=== PATIENT | male | born 1935 | race Caucasian/White ===

== ENCOUNTER 2023-03-09 | Outpatient (RCR) | payer MEDICARE, BC, SELFPAY | END 2023-04-02 23:59 | disposition home or self-care (01) | LOC: MM | PROVIDERS: PCP Internal Medicine; Visit Provider Internal Medicine | DX: Z51.81 Encounter for therapeutic drug level monitoring (principal); Z79.01 Long term (current) use of anticoagulants; I48.91 Unspecified atrial fibrillation ==

== ENCOUNTER 2023-04-08 10:32 | Outpatient (RCR) | payer MEDICARE, BC, SELFPAY | END 2023-05-03 16:54 | disposition home or self-care (01) | LOC: MM 10:32 | PROVIDERS: PCP Internal Medicine; Visit Provider Internal Medicine | DX: Z51.81 Encounter for therapeutic drug level monitoring (principal); Z79.01 Long term (current) use of anticoagulants; I48.91 Unspecified atrial fibrillation | CPT/HCPCS: 85610; G0463 ==

== ENCOUNTER 2023-05-04 09:09 | Outpatient (RCR) | payer MEDICARE, BC, SELFPAY | END 2023-06-03 17:28 | disposition home or self-care (01) | LOC: MM 09:09 | PROVIDERS: Visit Provider Internal Medicine | DX: Z51.81 Encounter for therapeutic drug level monitoring (principal); Z79.01 Long term (current) use of anticoagulants; I48.91 Unspecified atrial fibrillation | CPT/HCPCS: 85610; G0463 ==

== ENCOUNTER 2023-05-10 08:36 | Outpatient (OUT) | payer MEDICARE, BC, SELFPAY ==
[2023-05-10 10:32] LABS: Prostate Specific Antigen Dx <0.13 ng/mL (<=4.00)
== END 2023-05-10 08:37 | disposition home or self-care (01) ==
LOC: LAB 08:38
PROVIDERS: PCP Internal Medicine; Visit Provider Urology
DX: N40.1 Benign prostatic hyperplasia with lower urinary tract symptoms (principal); Z85.46 Personal history of malignant neoplasm of prostate; R35.1 Nocturia
CPT/HCPCS: 36415; 84153

== ENCOUNTER 2023-06-04 08:44 | Outpatient (RCR) | payer MEDICARE, BC, SELFPAY | END 2023-07-02 16:45 | disposition home or self-care (01) | LOC: MM 08:44 | PROVIDERS: PCP Internal Medicine; Visit Provider Internal Medicine | DX: Z51.81 Encounter for therapeutic drug level monitoring (principal); Z79.01 Long term (current) use of anticoagulants; I48.91 Unspecified atrial fibrillation ==

== ENCOUNTER 2023-07-05 02:33 | Outpatient (RCR) | payer MEDICARE, BC, SELFPAY | END 2023-08-03 17:39 | disposition home or self-care (01) | LOC: MM 02:33 | PROVIDERS: PCP Internal Medicine; Visit Provider Internal Medicine | DX: Z51.81 Encounter for therapeutic drug level monitoring (principal); Z79.01 Long term (current) use of anticoagulants; I48.91 Unspecified atrial fibrillation | CPT/HCPCS: 85610; G0463 ==

== ENCOUNTER 2023-07-12 08:18 | Outpatient (OUT) | payer MEDICARE, BC, SELFPAY ==
[2023-07-12 08:38] LABS: Basophils Percent Auto 0.6 % (0.2-2.0); Eosinophils Absolute Auto 0.1 10^3/uL (0.0-0.7); Eosinophils Percent Auto 1.1 % (0.9-7.0); Hematocrit 33.6 % (42.0-54.0); Hemoglobin 11.2 g/dL (14.0-18.0); Immature Granulocytes Abs Auto 0.01 10^3/uL (0.00-0.03); Immature Granulocytes Pct Auto 0.2 % (0.0-0.5); Lymphocytes Percent Auto 22.2 % (20.5-60.0); Mean Corpuscular HGB Conc 33.3 g/dL (29.9-35.2); Mean Corpuscular Hemoglobin 32.3 pg (25.9-34.0); Mean Corpuscular Volume 96.8 fL (80.0-94.0); Mean Platelet Volume 9.8 fL (9.5-13.5); Monocytes Absolute Auto 0.5 10^3/uL (0.3-0.8); Monocytes Percent Auto 11.7 % (1.7-12.0); Neutrophils Percent Auto 64.2 % (43.0-75.0); Platelet Count 131 10^3/uL (150-450); Red Blood Count 3.47 10^6/uL (4.70-6.10); Red Cell Distribution Width 13.3 % (11.0-15.0); White Blood Count 4.6 10^3/uL (4.0-11.0)
[2023-07-12 09:16] LABS: Alanine Aminotransferase 55 U/L (16-63); Chol HDL Ratio 1.9; Cholesterol 120 mg/dL (<=200); HDL Cholesterol 64 mg/dL (40-60); Thyroid Stimulating Hormone 1.068 uIU/mL (0.358-3.740); Triglycerides 65 mg/dL (<=150)
== END 2023-07-12 08:19 | disposition home or self-care (01) ==
LOC: LAB 08:21
PROVIDERS: PCP Internal Medicine; Visit Provider Internal Medicine
DX: E78.00 Pure hypercholesterolemia, unspecified (principal); E06.3 Autoimmune thyroiditis; Z79.899 Other long term (current) drug therapy
CPT/HCPCS: 36415; 80061; 84443; 84460; 85025

== ENCOUNTER 2023-08-04 00:44 | Outpatient (RCR) | payer MEDICARE, BC, SELFPAY | END 2023-09-02 16:47 | disposition home or self-care (01) | LOC: MM 00:44 | PROVIDERS: PCP Internal Medicine; Visit Provider Internal Medicine | DX: Z51.81 Encounter for therapeutic drug level monitoring (principal); Z79.01 Long term (current) use of anticoagulants; I48.91 Unspecified atrial fibrillation | CPT/HCPCS: 85610; G0463 ==

== ENCOUNTER 2023-08-09 07:41 | Outpatient (OUT) | payer MEDICARE, BC, SELFPAY ==
--- NOTE | 2023-08-09 07:45 | XR_ITS ---
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 TECHNIQUE: Dual-energy X-ray absorptiometry (DEXA) bone density study performed for the axial skeleton. HISTORY: Disorder Of Bone M89.9 FINDINGS: Prominence of the AP spine L2-L4 measures 1.42 g/sq cm. T score 1.5. WHO classification : Normal. This likely is artifactually elevated due to significant proliferative osteophyte formation Lowest bone mineral density right femoral neck measures 0.750 g/sq cm. T score -2.5. WHO classification: Osteoporosis XR/XR DEXA axial skeleton IMPRESSION: Osteoporosis. High fracture risk Electronically authenticated by: BRANDI PEÑA Date: 08/09/2023 09:05
== END 2023-08-09 07:42 | disposition home or self-care (01) ==
LOC: RAD 07:41
PROVIDERS: PCP Internal Medicine; Visit Provider Internal Medicine Rheumatology
DX: M89.9 Disorder of bone, unspecified (principal); M81.0 Age-related osteoporosis without current pathological fracture
CPT/HCPCS: 77080

== ENCOUNTER 2023-09-03 09:31 | Outpatient (RCR) | payer MEDICARE, BC, SELFPAY | END 2023-10-01 15:17 | disposition home or self-care (01) | LOC: MM 09:31 | PROVIDERS: PCP Internal Medicine; Visit Provider Internal Medicine | DX: Z51.81 Encounter for therapeutic drug level monitoring (principal); Z79.01 Long term (current) use of anticoagulants; I48.91 Unspecified atrial fibrillation | CPT/HCPCS: 85610; G0463 ==

== ENCOUNTER 2023-10-04 01:14 | Outpatient (RCR) | payer MEDICARE, BC, SELFPAY | END 2023-11-03 17:19 | disposition home or self-care (01) | LOC: MM 01:14 | PROVIDERS: PCP Internal Medicine; Visit Provider Internal Medicine | DX: Z51.81 Encounter for therapeutic drug level monitoring (principal); Z79.01 Long term (current) use of anticoagulants; I48.91 Unspecified atrial fibrillation | CPT/HCPCS: 85610; G0463 ==

== ENCOUNTER 2023-10-21 08:12 | Outpatient (OUT) | payer MEDICARE, BC, SELFPAY ==
--- NOTE | 2023-10-21 | ECG_ITS ---
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
--- OUTSIDE RECORDS SUMMARY | 2023-10-21 08:16 | XMS_ITS | CCD ---
Author Name Unknown Address [address] [place] [address] Organization [facility] Care Team Providers Care Deicer Repairer Name Role Phone Unavailable Primary Care Provider Unavailabl e STEVE VARGAS Primary Care Unavailable FILIPPO LITTLE Attending Unavailable FILIPPO LITTLE Admitting Unavailable STEVE VARGAS Referring Unavailable Vinh Lawton Unavailable STEVE VARGAS Primary Care Physician [phone] DO Steve Vargas Primary Care Provider [phone] MD Michele Arteaga Attending Provider DO Steve Vargas Primary Care Provider [phone] MD Michele Arteaga Attending Provider Steve Vargas Unavailable LI ., DR ARCHIBALD Consulting Unavailable LI ., DR ARCHIBALD Attending Unavailable BALL, DR EATON Primary Care Unavailable IL ., DR ARCHIBALD Admitting Unavailable ZANDRA, DR EATON Primary Care Unavailable FAMARY KATE, HANSEN H Attending Unavailable FAMARY KATE, HANSEN H Admitting Unavailable ZANDRA, DR EATON Primary Care Unavailable GERBER ., DR LOPEZ Consulting Unavailable HOY ., DR LOPEZ Attending Unavailable HOY ., DR LOPEZ Admitting Unavailable FILIPPO LITTLE Attending Unavailable FILIPPO LITTLE Admitting Unavailable FILIPPO LITTLE Consulting Unavailable ZANDRA, DR EATON Primary Care Unavailable ZANDRA, DR EATON Consulting Unavailable ZANDRA, DR EATON Attending Unavailable ZANDRA, DR EATON Admitting Unavailable ZANDRA, DR EATON Primary Care Unavailable DBEBIE SCHRADER Attending Unavailable ZANDAR, DR EATON Primary Care Unavailable ZANDRA, DR EATON Consulting Unavailable DEBBIE SCHRADER Admitting Unavailable DEBBIE SCHRADER Consulting Unavailable RON CAZARES Consulting Unavailable FILIPPO LITTLE Attending Unavailable FILIPPO LITTLE Admitting Unavailable FILIPPO LITTLE Consulting Unavailable ZANDRA, DR EATON Primary Care Unavailable BALL, DR EATON Primary Care Unavailable FAWWAD, HANSEN H Attending Unavailable FAWWAD, HANSEN H Admitting Unavailable FAWWAD, HANSEN H Attending Unavailable BALL, DR EATON Primary Care Unavailable FAWWAD, HANSEN H Admitting Unavailable FAWWAD, HANSEN H Admitting Unavailable FAWWAD, HANSEN H Attending Unavailable BALL, DR EATON Primary Care Unavailable FAWWAD, HANSEN H Admitting Unavailable FAWWAD, HANSEN H Attending Unavailable BALL, DR EATON Primary Care Unavailable BALL, DR EATON Primary Care Unavailable FAWWAD, HANSEN H Attending Unavailable FAWWAD, HANSEN H Admitting Unavailable BALL, DR EATON Primary Care Unavailable FAWWAD, HANSEN H Attending Unavailable FAWWAD, HANSEN H Admitting Unavailable FAWWAD, HANSEN H Admitting Unavailable FAWWAD, HANSEN H Attending Unavailable BALL, DR EATON Primary Care Unavailable FAWWAD, HANSEN H Admitting Unavailable FAWWAD, HANSEN H Attending Unavailable BALL, DR EATON Primary Care Unavailable BALL, DR EATON Primary Care Unavailable FAWWAD, HANSEN H Attending Unavailable FAWWAD, HANSEN H Admitting Unavailable BALL, DR EATON Primary Care Unavailable FAWWAD, HANSEN H Attending Unavailable FAWWAD, HANSEN H Admitting Unavailable DOMINGOHLERDEBBIE Consulting Unavailable ZAHLER, DEBBIE Attending Unavailable ZAHLER, DEBBIE Admitting Unavailable BALL, DR EATON Primary Care Unavailable FILIPPO LITTLE Admitting Unavailable FILIPPO LITTLE Consulting Unavailable ZANDRA, DR EATON Primary Care Unavailable FILIPPO LITTLE Attending Unavailable DO Steve Vargas Primary Care Provider MD Michele Arteaga Attending Provider MD Jose R Cruz Attending Provider [phone] YULIANA RODRIGUEZ Attending Unavailable FILIPPO LITTLE Attending Unavailable FILIPPO LITTLE Referring Unavailable FILIPPO LITTLE Referring Unavailable FILIPPO LITTLE Admitting Unavailable FILIPPO LITTLE Attending Unavailable FILIPPO LITTLE Referring Unavailable FILIPPO LITTLE Referring Unavailable Cristela LI Attending Unavailable Cristela LI Attending Unavailable DO Steve Vargas Primary Care Provider [phone] MD Michele Arteaga Attending Provider Michele Arteaga Admitting Unavailable Michele Arteaga Attending Unavailable Steve Vargas Primary Care Unavailable Michele Arteaga Admitting Unavailable Michele Arteaga Attending Unavailable Steve Vargas Primary Care Unavailable Michele Arteaga Admitting Unavailable Michele Arteaga Attending Unavailable Steve Vargas Primary Care Unavailable Jose R Cruz Admitting Unavailable Jose R Cruz Attending Unavailable Steve Vargas Primary Care Unavailable Unavailable Primary Care Provider UnavailELKIN Ng Admitting Unavailable ELKIN PULIDO Attending Unavailable ELKIN PULIDO Attending Unavailable Allergies Allergy Classification Reported Allergen(s) Allergy Type Date of Onset Reaction(s) Facility (20 sources) Latex; Translations: [LATEX] Propensity to adverse reactions (disorder) 9 rash, Hives, Itching [facility] Repository (13 sources) Penicillins; Translations: [penicillins] Drug allergy (disorder) 0 Swelling of the Eye [facility] Repository (2 sources) Penicillin V Drug Allergy Unknown [facility] Other (11 sources) Penicillin Drug Allergy Unknown [facility] Other (1 source) Spironolactone; Translations: [SPIRONOLACTONE ] Drug Allergy 1 [facility] Repository (1 source) Penicillins Drug allergy (disorder) 7 [facility] Repository (1 source) Penicillins Drug Allergy 4 Other [facility] Work Phone: Medications Current Medications Medication Drug Class(es) Dates Sig (Normalized) Sig (Original) acetaminophen 325 mg / HYDROcodone bitartrate 5 mg oral tablet (13 sources) Opioid Agonist Start: 10-10-2021 take 1-2 tablets by mouth every six hours as needed HYDROcodone-Acet aminophen 5-325 MG 1-2 tablet as needed Orally every 6 hrs for 7 days Oct, Active 24 hr alfuzosin hydrochloride 10 mg extended release oral tablet (16 sources) alpha-Adrenergic Amador Start: 12-22-2021 End: 11-21-2023 take 1 tablet by mouth once daily alfuzosin 10 mg ER Tab 10 mg = 1 tab(s), Oral, Daily, X 90 day(s), # 90 tab(s), Refills(s) 3, Pharmacy: [facility], 178, cm, 05/04/22 12:45:00 EDT, Height/Length Dosing, 76, kg, 05/04/22 12:45:00 EDT, Weight Dosing Start Date: 11/26/22 Stop Date: 11/21/23 Status: Ordered aspirin 81 mg delayed release oral tablet (6 sources) Platelet Aggregation Inhibitor, Nonsteroidal Anti-inflammatory Drug Start: 07-13-2017 take 1 tablet by mouth once daily Aspirin (Aspir-81) 81 mg Tablet,Delayed Release (Dr/Ec) Active 81 MG PO Daily July 13, 2017 12:00am Start: 04-02-2014 aspirin Refill s(s) 0 Start Date: 04/02/14 Status: Ordered atorvastatin 40 mg oral tablet (20 sources) HMG-CoA Reductase Inhibitor Start: 08-30-2023 take 1 tablet by mouth once daily before mealtime atorvastatin (Lipitor) 40 mg tablet Take 1 tablet (40 mg) by mouth once daily in the morning. Take before meals. 0 08/30/2023 Active Start: 04-02-2014 take 40 mg by mouth once daily Atorvastatin Active 40 MG PO Daily July 13, 2017 12:00am betamethasone 0.5 mg/ml / clotrimazole 10 mg/ml topical cream (5 sources) Azole Antifungal, Corticosteroid Start: 04-16-2023 Clotrimazole-Betamethasone 1-0.05 % 1 application Externally Twice a day for 15 days Apr, Active Bumetanide (13 sources) Loop Diuretic Bumetanide Not-T aking Bumetanide Activ e Calcium (5 sources) Phosphate Binder, Calcium Calcium + D3 Active calcium carbonate 1250 mg oral tablet (13 sources) take 1 tablet by mouth every twelve hours take 1 tablet by mouth every twe lve hours calcium carbonate 1250 mg / cholecalciferol 125 unt oral tablet (6 sources) Vitamin D Start: 07-13-2017 take 1 tablet by mouth once daily Calcium Carbonate-Vitamin D3 (Calcium 500 + D (D3)) 500 mg(1,250mg) -125 unit Tablet Active 1 TAB PO Daily July 13, 2017 12:00am Calcium Citrate / Vitamin D (2 sources) Start: 04-02-2014 calcium-vitami n D Refill(s) 0 Start Date: 04/02/14 Status: Ordered cholecalciferol 0.125 mg oral tablet (7 sources) Vitamin D Start: 07-13-2017 take 1 tablet by mouth once daily Cholecalciferol (Vitamin D3) (Vitamin D3) 5,000 unit Tablet Active 1 TAB PO Daily July 13, 2017 12:00am take 1 capsule by mo uth every other day Vitamin D3 25 MCG (1000 UT) 1 capsule Or ally every other day Active take 1 tablet by mouth every oth er day cholecalciferol (Vitamin D-3) 5,000 Units tablet Take 1 tablet every other day by oral route. 0 Active clopidogrel 75 mg oral tablet (14 sources) P2Y12 Platelet Inhibitor Start: 04-08-2020 take 1 mg by mouth once daily Plavix 75 mg Tab mg tab(s), Oral, Daily, Refills(s) 0 Start Date: 04/08/20 Status: Ordered docusate sodium 100 mg oral capsule (12 sources) take 1 capsule by mouth every twenty-four hours ferrous sulfate 325 mg oral tablet (11 sources) Start: 07-13-2017 take 1 tablet by mouth once daily Ferrous Sulfate (Iron) 325 mg (65 mg iron) Tablet Active 1 TAB PO Daily July 13, 2017 12:00am ferrous sulfate, 325 mg ferrous sulfate, tablet Take 65 mg by mouth once daily. 0 Active take 1 tablet by ho every twenty-four hours Iron 325 (65 Fe) MG 1 tablet Orally Once a day Active fexofenadine hydrochloride 180 mg oral tablet (6 sources) Histamine-1 Receptor Antagonist Start: 04-08-2020 take 1 mg by mouth once daily fexofenadine 180 mg Tab mg tab(s), Oral, Daily, Refills(s) 0 Start Date: 04/08/20 Status: Ordered take 1 tablet by ho th every twenty-four hours Fexofenadine HCl 60 MG 1 tablet Orally once a day Active finasteride 5 mg oral tablet (16 sources) 5-alpha Reductase Inhibitor Start: 12-15-2021 take 1 tablet by mouth once daily finasteride 5 mg Tab 5 mg = 1 tab(s), Oral, Daily, # 90 tab(s), Refills(s) 3, Pharmacy: [facility], 178, cm, 05/04/22 12:45:00 EDT, Height/Length Dosing, 76, kg, 05/04/22 12:45:00 EDT, Weight Dosing Start Date: 11/26/22 Status: Ordered furosemide 20 mg oral tablet (11 sources) Loop Diuretic Start: 04-08-2020 take 1 mg by mouth once daily furosemide 20 mg Tab mg tab(s), Oral, Daily, Refills(s) 0 Start Date: 04/08/20 Status: Ordered hydroCHLOROthiazide 25 mg oral tablet (6 sources) Thiazide Diuretic Start: 07-13-2017 take 25 mg by mouth once daily Hydrochlorothiazide Active 25 MG PO Daily July 13, 2017 12:00am hydroxychloroquine sulfate 200 mg oral tablet (20 sources) Antimalarial, Antirheumatic Agent Start: 04-02-2014 take 200 mg by mouth twice daily Hydroxychloroquine Active 200 MG PO Twice daily July 13, 2017 12:00am take 1 tablet by ho th once daily, then take 1 tablet by mouth twice daily at mealtime hydroxychloroquine (Plaquenil) 200 mg ta blet TAKE 1 TABLET BY MOUTH ONCE DAILY ALTERNATING WITH 1 TABLET TWICE DAILY WITH FOOD. CONFIRM WITH EYE DOCTOR ON YEARLY EYE EXAM FOR MEDICATION TOXICITY. 0 Active Iron (10 sources) Start: 04-02-2014 Patrick Iron Refil ls(s) 0 Start Date: 04/02/14 Status: Ordered Iron Not-Taking Iron Active leflunomide 20 mg oral tablet (20 sources) Antirheumatic Agent Start: 04-08-2020 take 1 mg by mouth once daily leflunomide 20 mg Tab mg tab(s), Oral, Daily, Refills(s) 0 Start Date: 04/08/20 Status: Ordered Start: 07-13-2017 take 20 g by mouth once daily Leflunomide Active 20 GM PO Daily July 13, 2017 12:00am take 1 tablet by ho th every other day Leflunomide 20 MG 1 tablet Orally every other day Active lisinopril 40 mg oral tablet (1 source) Angiotensin Converting Enzyme Inhibitor Start: 04-02-2014 Prinivil 40 mg oral tablet Refills(s) 0 Start Date: 04/02/14 Status: Ordered losartan potassium 50 mg oral tablet (20 sources) Angiotensin 2 Receptor Amador Start: 07-13-2017 End: 10-26-2023 take 1 tablet by mouth once daily losartan (Cozaar) 50 mg tablet Take 1 tablet (50 mg) by mouth once daily. 0 10/26/2022 10/26/2023 Active 24 hr metoprolol succinate 25 mg extended release oral tablet (20 sources) beta-Adrenergic Amador Start: 07-13-2017 take 25 mg by mouth once daily Metoprolol Succinate Active 25 MG PO Daily July 13, 2017 12:00am take 2 tablets by mo [facility] every twenty-four hours Metoprolol Succinate ER 50 MG 2 tablet Orally Once a day Active take 1 tablet by mouth once suzanne y metoprolol succinate XL (Toprol-XL) 50 mg 24 hr tablet Take 1 tablet (50 mg) by mouth once daily. 0 Active Nitro 0.4 mg Tab (1 source) Start: 04-11-2021 Nitro 0.4 mg T ab = 1 tab(s), SubLingual, q5min, PRN Chest pain, # 25 tab(s), Refills(s) 3 Start Date: 04/11/21 Status: Ordered nitroglycerin 0.4 mg/actuat mucosal spray (13 sources) Nitrate Vasodilator Start: 04-11-2021 Nitro 0.4 mg Tab = 1 tab(s), SubLingual, q5min, PRN Chest pain, # 25 tab(s), Refills(s) 3 Start Date: 04/11/21 Status: Ordered purified protein derivative of tuberculin 50 unt/ml injectable solution (12 sources) Tuberculosis Skin Test, Skin Test Antigen spironolactone 25 mg oral tablet (16 sources) Aldosterone Antagonist Start: 04-11-2021 take 1 mg by mouth twice daily spironolactone 25 mg Tab mg tab(s), Oral, BID, Refills(s) 0 Start Date: 04/11/21 Status: Ordered take 1 tablet by [facility] every twenty-four hours Spironolactone 25 MG 1 tablet Orally Onc e a day Active terbinafine hydrochloride 10 mg/ml topical cream (5 sources) Allylamine Antifungal Start: 03-31-2023 Terbinafine HCl 1 % 1 application Externally twice daily for 14 days Mar, Active Start: 03-31-2023 Terbinafine HC l 1 % 1 application Externally twice daily for 14 days Mar, Active Start: 03-31-2023 Terbinafine HC l 1 % 1 application Externally twice daily for 14 days Mar, Active vitamin b12 1 mg/ml injectable solution (20 sources) Vitamin B12 take 1 tablet by ho th every twenty-four hours Vitamin B12 1000 MCG 1 tablet Orally Once a day Active Vitamin B12 Not- Taking Vitamin B12 Acti ve Vitamin B12 1000 MCG (4 sources) take 1 tablet by mouth once daily Vitamin B12 1000 MCG 1 tablet Orally Once a day Active Vitamin D3 25 MCG (1000 UT) (4 sources) take 1 capsule by mouth every other day Vitamin D3 25 MCG (1000 UT) 1 capsule Orally every other day Active warfarin sodium 5 mg oral tablet (20 sources) Vitamin K Antagonist Start: 07-13-2017 take 5 mg by mouth once daily Warfarin Active 5 MG PO Daily July 13, 2017 12:00am Warfarin 5mg 5 m g 1 1/2 tablet orally daily Active Completed/Discontinued Medications Medication Drug Class(es) Dates Sig (Normalized) Sig (Original) doxycycline hyclate 100 mg oral capsule (6 sources) Tetracycline-class Drug Start: 01-22-2023 take 1 capsule by mouth twice daily Doxycycline Hyclate 100 MG 1 capsule Orally twice daily for 7 days Jan, Not-Taking triamcinolone acetonide 40 mg/ml injectable suspension (13 sources) Corticosteroid Start: 01-06-2023 Kenalog-40 May, 60 mg Vitamin D3 5000 intl units oral capsule (2 sources) Start: 04-08-2020 take 1 capsule by mouth once daily at mealtime Vitamin D3 5000 intl units oral capsule 5,000 [employer] t = 1 cap(s), Oral, Daily, with food, # 100 cap(s), Refills(s) 0 Start Date: 04/08/20 Status: Ordered Problems Active Problems Problem Classification Problem Date Documented Da te Episodic/Chronic Acute bronchitis (1 source) Acute bronchitis due to other specified organisms Episodic Cancer of prostate (11 sources) Carcinoma of prostate; Translations: [Malignant neoplasm of prostate] Onset: 9 Chronic Cancer of prostate (20 sources) Personal history of malignant neoplasm of prostate; Translations: [History of malignant neoplasm of prostate] Onset: 2 Episodic Cardiac dysrhythmias (20 sources) Atrial fibrillation; Translations: [Paroxysmal atrial fibrillation] Onset: 7 03-28-2020 Chronic Cardiac dysrhythmias (4 sources) Bradycardia; Translations: [Bradycardia, unspecified] 03-28-2020 Episodic Cataract (8 sources) Age-related nuclear cataract, right eye; Translations: [Age-related nuclear cataract, left eye] Onset: 2 Chronic Complication of device; implant or graft (11 sources) Stenosis of other cardiac prosthetic devices, implants and grafts, initial encounter; Translations: [Stenosis of other cardiac prosthetic devices, implants and grafts, initial encounter] Episodic Conduction disorders (20 sources) H/O: cardiac pacemaker in situ; Translations: [Presence of cardiac pacemaker] Onset: 2 Chronic Congestive heart failure; nonhypertensive (8 sources) Chronic systolic (congestive) heart failure; Translations: [Chronic systolic heart failure] Onset: 9 Chronic Coronary atherosclerosis and other heart disease (19 sources) Coronary arteriosclerosis; Translations: [Generalized ischemic myocardial dysfunction] Onset: 2 03-28-2020 Chronic Deficiency and other anemia (11 sources) Iron deficiency anemia; Translations: [Iron deficiency anemia, unspecified] Episodic Disorders of lipid metabolism (20 sources) Hyperlipidemia; Translations: [Pure hypercholesterolemia] Onset: 0 03-28-2020 Chronic Essential hypertension (10 sources) Hypertensive disorder; Translations: [Essential (primary) hypertension] Onset: 2 03-28-2020 Chronic Fluid and electrolyte disorders (9 sources) Hypokalemia; Translations: [Hypokalemia] Episodic Fracture of upper limb (3 sources) Displaced fracture of lateral end of right clavicle, initial encounter for closed fracture; Translations: [Closed fracture of acromial end of clavicle] Onset: 2 Resolved: 2 Episodic Gastrointestinal hemorrhage (5 sources) Rectal hemorrhage; Translations: [Hemorrhage of anus and rectum] 07-13-2017 Episodic Genitourinary symptoms and ill-defined conditions (2 sources) 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 Genitourinary symptoms and ill-defined conditions (6 sources) Nocturia; Translations: [Nocturia] Onset: 2 Episodic Heart valve disorders (13 sources) History of heart valve repair with prosthesis; Translations: [Presence of prosthetic heart valve] Chronic Hyperplasia of prostate (15 sources) Benign prostatic hypertrophy with outflow obstruction; Translations: [Benign prostatic hyperplasia with lower urinary tract symptoms] Onset: 2 Chronic Hypertension with complications and secondary hypertension (11 sources) Chronic kidney disease due to hypertension; Translations: [Hypertensive chronic kidney disease with stage 1 through stage 4 chronic kidney disease, or unspecified chronic kidney disease] Chronic Immunizations and screening for infectious disease (2 sources) Vaccination given; Translations: [Encounter for immunization] Episodic Intracranial injury (2 sources) Concussion with no loss of consciousness; Translations: [Concussion without loss of consciousness, subsequent encounter] Episodic Late effects of cerebrovascular disease (11 sources) Hemiplegia of nondominant side as late effect of cerebrovascular disease; Translations: [Hemiplegia and hemiparesis following cerebral infarction affecting left non-dominant side] Chronic Melanomas of skin (4 sources) Malignant melanoma of forehead; Translations: [Malignant melanoma of other parts of face] Onset: 4 10-08-2023 Chronic Mycoses (3 sources) Histoplasmosis; Translations: [Histoplasmosis, unspecified] Episodic Nutritional deficiencies (2 sources) Vitamin D deficiency; Translations: [Vitamin D deficiency, unspecified] Chronic Occlusion or stenosis of precerebral arteries (4 sources) Carotid artery stenosis; Translations: [Left carotid artery occlusion] 03-28-2020 Chronic Other aftercare (10 sources) Long-term current use of anticoagulant; Translations: [director long term care (current) use of anticoagulants] Episodic Other aftercare (5 sources) care home (current) use of anticoagulants; Translations: [HAT LINING PASTER CURRNT USE ANTICOAGULANTS] Onset: 3 Episodic Other aftercare (5 sources) Encounter for therapeutic drug level monitoring; Translations: [ENC THERAPEUTC DRUG LEVL MONITORING] Onset: 3 Episodic Other aftercare (2 sources) Other [facility] (current) drug therapy; Translations: [OTH PENITENTIARY CURRENT DRUG THERAPY] Onset: 2 Episodic Other aftercare (2 sources) Long-term current use of drug therapy; Translations: [Other [facility] (current) drug therapy] Episodic Other circulatory disease (2 sources) History of cerebrovascular accident without residual deficits; Translations: [Personal history of transient ischemic attack (TIA), and cerebral infarction without residual deficits] Episodic Other connective tissue disease (2 sources) Polymyalgia rheumatica; Translations: [Polymyalgia rheumatica] Chronic Other connective tissue disease (10 sources) Disorder of musculoskeletal system; Translations: [Other symptoms and signs involving the musculoskeletal system] Episodic Other connective tissue disease (1 source) Other symptoms and signs involving the musculoskeletal system; Translations: [Bilateral leg weakness] Episodic Other diseases of kidney and ureters (1 source) Urinary tract obstruction; Translations: [Other obstructive and reflux uropathy] Onset: 2 Episodic Other diseases of veins and lymphatics (10 sources) Peripheral venous insufficiency; Translations: [Venous insufficiency (chronic) (peripheral)] Episodic Other diseases of veins and lymphatics (6 sources) Venous insufficiency (chronic) (peripheral); Translations: [Chronic venous insufficiency] Episodic Other diseases of veins and lymphatics (5 sources) Stasis dermatitis; Translations: [Venous insufficiency (chronic) (peripheral)] Episodic Other ear and sense organ disorders (2 sources) Sensorineural hearing loss, bilateral; Translations: [Sensorineural hearing loss, bilateral] Onset: 8 Chronic Other ear and sense organ disorders (2 sources) Sensorineural hearing loss; Translations: [Unspecified sensorineural hearing loss] Chronic Other endocrine disorders (2 sources) Testicular hypofunction; 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 Other fractures (2 sources) Closed fracture of multiple right ribs; Translations: [Multiple fractures of ribs, right side, initial encounter for closed fracture] Episodic Other gastrointestinal disorders (2 sources) H/O: gastrointestinal disease; Translations: [Personal history of other diseases of the digestive system] Episodic Other non-traumatic joint disorders (10 sources) Shoulder joint pain; Translations: [Pain in right shoulder] Episodic Other non-traumatic joint disorders (1 source) Pain in right shoulder; Translations: [Acute pain of right shoulder] Episodic Other nutritional; endocrine; and metabolic disorders (11 sources) Abnormal weight loss; Translations: [Abnormal weight loss] Episodic Other nutritional; endocrine; and metabolic disorders (2 sources) Loss of appetite; Translations: [Anorexia] Episodic Other screening for suspected conditions (not mental disorders or infectious disease) (2 sources) Raised prostate specific antigen 03-28-2020 Episodic Other upper respiratory disease (11 sources) Allergic rhinitis due to pollen; Translations: [Allergic rhinitis due to pollen] Chronic Other upper respiratory disease (3 sources) Allergic rhinitis due to pollen Chronic Karen-; endo-; and myocarditis; cardiomyopathy (except that caused by tuberculosis or sexually transmitted disease) (2 sources) Valvular endocarditis; Translations: [Endocarditis, 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 Rheumatoid arthritis and related disease (15 sources) Rheumatoid arthritis; Translations: [Rheumatoid arthritis without rheumatoid factor, right wrist] 03-28-2020 Chronic Skin and subcutaneous tissue infections (11 sources) Cellulitis; Translations: [Cellulitis of unspecified part of limb] Episodic Sprains and strains (2 sources) Strain of muscle, fascia and tendon of the posterior muscle group at thigh level, left thigh, subsequent encounter; Translations: [Strain of muscle, fascia and tendon of the posterior muscle group at thigh level, left thigh, subsequent encounter] Episodic Thyroid disorders (20 sources) Autoimmune thyroiditis; Translations: [Autoimmune thyroiditis] Chronic Unclassified (3 sources) CONTACT W/AND (SUSP) EXPOS COVID-19; Translations: [CONTACT W/AND (SUSP) EXPOS COVID-19] Onset: 3 Unclassified (1 source) PERSONAL HISTORY OF COVID-19; Translations: [PERSONAL HISTORY OF COVID-19] Onset: 2 Unclassified (2 sources) Other persistent atrial fibrillation; Translations: [Other persistent atrial fibrillation] Onset: 2 Unclassified (1 source) Rheumatoid arthritis with rheumatoid factor of multiple sites without organ or systems involvement; Translations: [Rheumatoid arthritis with rheumatoid factor of multiple sites without organ or systems involvement] Onset: 3 Unclassified (2 sources) New Patient Visit; Translations: [New Patient Visit] Onset: 4 Viral infection (2 sources) Disease caused by 2019-nCoV; Translations: [COVID-19] Past or Other Problems Problem Classification Problem Date Documented Date Episodic/Chronic Acute posthemorrhagic anemia (2 sources) Acute posthemorrhagic anemia; Translations: [Acute posthemorrhagic anemia] Onset: 06-30-2017 Episodic Coronary atherosclerosis and other heart disease (1 source) Presence of coronary angioplasty implant and graft; Translations: [PRESENCE COR 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] Onset: 05-06-2022 Episodic Deficiency and other anemia (2 sources) Anemia; Translations: [Anemia, unspecified] Onset: 05-24-2014 Episodic Neoplasms of unspecified nature or uncertain behavior (1 source) Neoplasm of unspecified behavior of bone, soft tissue, and skin; Translations: [Neoplasm of unspecified behavior of bone, soft tissue, and skin] Onset: 03-30-2023 Episodic Open wounds of extremities (2 sources) Laceration without foreign body of left elbow, subsequent encounter; Translations: [Laceration without foreign body of left elbow, subsequent encounter] Resolved: 04-30-2021 Episodic Other circulatory disease (1 source) Personal history of transient ischemic attack (TIA), and cerebral infarction without residual deficits; Translations: [PERS HX TIA AND CI NO RESID DEFICIT] Onset: 05-06-2022 Episodic Other fractures (1 source) Displaced fracture of lateral end of right clavicle, subsequent encounter for fracture with routine healing Onset: 11-03-2021 Resolved: 11-03-2021 Episodic Other non-traumatic joint disorders (2 sources) Arthralgia of the lower leg; Translations: [Pain in left knee] Onset: 12-12-2013 Episodic Other non-traumatic joint disorders (2 sources) Knee joint effusion; Translations: [Effusion, unspecified knee] Onset: 12-12-2013 Episodic Other upper respiratory infections (2 sources) Acute maxillary sinusitis; Translations: [Acute maxillary sinusitis, unspecified] Onset: 12-20-2018 Episodic Residual codes; unclassified (1 source) Acquired absence of other genital organ(s); Translations: [ACQUIRED ABSENCE OTH GENITAL ORGANS] Onset: 05-06-2022 Episodic Syncope (2 sources) Syncope and collapse; Translations: [Syncope and collapse] Onset: 06-06-2022 Episodic Unclassified (1 source) CONTACT W/AND (SUSP) EXPOS COVID-19; Translations: [CONTACT W/AND (SUSP) EXPOS COVID-19] Onset: 01-22-2023 Unclassified (1 source) Onset: 10-08-2023 10-08-2023 Results Test Name Value Interpretation Reference Range Facility Surgical pathology studyon 1 11-24-2022 Surgical pathology study Pathology report.total SEE COMMENT Dermatopathology Report Case: [id number] Authorizing Provider: Elkin Pulido MD Collected: 09/23/2023 7600 Ordering Location: [facility] Received: 09/23/2023 1448 Center Pathologist: Donna Blanchard MD Specimen: OUTSIDE BLOCK(S)/SLIDE(S), 4 SLIDES, [facility], [id number] (BX: 08/31/23) Path report.final diagnosis SEE COMMENT 4 SLIDES, [facility], [id number] A & B (BX 08/31/23). A. SKIN, LEFT DISTAL DORSAL FOREARM, SHAVE BIOPSY: INVASIVE SQUAMOUS CELL CARCINOMA, WELL-DIFFERENTIATED, PRESENT ON THE DEEP MARGIN. B. 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 Note: Microscopic examination reveals dense elastosis and an asymmetric proliferation of nested and single atypical melanocytes throughout all layers of the epidermis. There are nests of atypical melanocytes in the dermis, with mildly enlarged nuclei and mild cytoplasm. The melanocytes stain with antibodies against SOX-10. Electronically signed out by Donna Blanchard MD Synoptic report SEE COMMENT MELANOMA OF THE SKIN: Biopsy MELANOMA OF THE SKIN: BIOPSY - All Specimens 8th Edition - Protocol posted: 12/24/2021 SPECIMEN Procedure: Biopsy, shave Specimen Laterality: Right TUMOR Tumor Site: Skin of other and unspecified parts of face: Right superior forehead Histologic Type: Lentigo maligna melanoma Maximum Tumor (Breslow) Thickness (Millimeters): At least: 1.8 mm : Broadly transected on the deep margin. Ulceration: Not identified Anatomic (Ho) Level: At least level: IV : Broadly transected on the deep margin. Mitotic Rate: 1 mitoses per mm2 Microsatellite(s): Not identified Lymphovascular Invasion: Not identified Neurotropism: Not identified Tumor-Infiltrating Lymphocytes: Present, nonbrisk Tumor Regression: Not identified MARGINS: Margin Status for Invasive Melanoma: Invasive melanoma present at margin Margin(s) Involved by Invasive Melanoma: Deep Margin Status for Melanoma in situ: Melanoma in situ present at margin Margin(s) Involved by Melanoma in Situ: Peripheral Margin(s) Involved by Melanoma in Situ: Deep PATHOLOGIC STAGE CLASSIFICATION (pTNM, AJCC 8th Edition): pT Category: pT2a Path report.relevant Hx SEE COMMENT A. 2.5 cm, neoplasm of unspecified behavior vs squamous cell carcinoma B. 1.3 cm plaque, neoplasm of unspecified behavior vs basal april carcinoma. Path report.gross observation SEE COMMENT A. OUTSIDE BLOCK(S)/SLIDE(S). Received for consultation from [facility] are four slides labeled [id number] (Bx: 08/31/23) along with the corresponding pathology report. Slides for specimens A and B received. Path report.microscopic observation A: Microscopic analysis shows irregular growth of keratinocytes that are associated with the epidermis and invade the dermis in isolated islands and strands. Horn pearls and partial keratinization are present.The basal cells are poorly demarcated from the stroma. Atypia is mild, and mitoses are rare. [facility] Comment on above: Order Comment: Mater ials Received: 4 slides, [facility], [id number] (BX: 08/31/23) Alanine aminotransferase [En zymatic activity/volume] in Serum or PlasmaOrdered By: Michele Arteaga on 07-19-2023 ALT [Catalytic activity/Vol] 32 U/L 7-52 [facility] Albumin [Mass/volume] in Ser um or Plasma by Bromocresol green (BCG) dye binding methoOrdered By: Michele Arteaga on 07-19-2023 Albumin BCG dye [Mass/Vol] 4.1 g/dL 3.5-5.7 [facility] Alkaline phosphatase [Enzyma tic activity/volume] in Serum or PlasmaOrdered By: Michele Arteaga on 07-19-2023 ALP [Catalytic activity/Vol] 63 U/L 34-104 [facility] Aspartate aminotransferase [ Enzymatic activity/volume] in Serum or PlasmaOrdered By: Michele Arteaga on 07-19-2023 AST [Catalytic activity/Vol] 22 U/L 13-39 [facility] Basophils Auto (Bld) [#/Vol] Ordered By: Michele Arteaga on 07-19-2023 Basophils (Bld) [#/Vol] 0.0 10*3/uL 0.0-0.2 [facility] Basophils/100 WBC Auto (Bld) Ordered By: Michele Arteaga on 07-19-2023 Basophils/100 WBC (Bld) 0.7 % . [facility] Bilirubin.direct [Mass/volum e] in Serum or PlasmaOrdered By: Michele Arteaga on 07-19-2023 Bilirubin.direct [Mass/Vol] 0.10 mg/dL 0.03-0.18 [facility] Bilirubin.total [Mass/volume ] in Serum or PlasmaOrdered By: Michele Arteaga on 07-19-2023 Bilirubin [Mass/Vol] 0.6 mg/dL 0.3-1.0 [facility] Complete Blood Count Auto Di ffon 07-19-2023 Basophils (Bld) [#/Vol] 0.0 10*3/uL Normal 0.0-0.2 [facility] Comment on above: Performed By: #### E SR, CREAT, HEPATIC, CBC #### [facility] [address] [place] [address] Basophils/100 WBC (Bld) 0.7 % Normal . [facility] Comment on above: Performed By: #### E SR, CREAT, HEPATIC, CBC #### [facility] [address] [place] [address] Eosinophils (Bld) [#/Vol] 0.0 10*3/uL Normal 0.0-0.45 [facility] Comment on above: Performed By: #### E SR, CREAT, HEPATIC, CBC #### [address] Eosinophils/100 WBC (Bld) 0.9 % Normal . [facility] Comment on above: Performed By: #### E SR, CREAT, HEPATIC, CBC #### [facility] [address] [place] [address] Erythrocyte distribution width (RBC) [Ratio] 14.6 % Normal 12.0-14.8 [facility] Comment on above: Performed By: #### E SR, CREAT, HEPATIC, CBC #### [facility] [address] [place] [address] Hematocrit (Bld) [Volume fraction] 31.9 % Low 38.8-50.0 [facility] Comment on above: Performed By: #### E SR, CREAT, HEPATIC, CBC #### [address] [place] [address] [place] Hemoglobin (Bld) [Mass/Vol] 11.0 g/dL Low 13.0-17.0 [facility] Comment on above: Performed By: #### E SR, CREAT, HEPATIC, CBC #### [address] Lymphocytes (Bld) [#/Vol] 0.7 10*3/uL Low 1.00-4.8 [facility] Comment on above: Performed By: #### E SR, CREAT, HEPATIC, CBC #### [address] Lymphocytes/100 WBC (Bld) 16.1 % Normal . [facility] Comment on above: Performed By: #### E SR, CREAT, HEPATIC, CBC #### [address] MCH (RBC) [Entitic mass] 32.2 pg Normal 27.5-35.2 [facility] Comment on above: Performed By: #### E SR, CREAT, HEPATIC, CBC #### [address] MCV (RBC) [Entitic vol] 93.7 fL Normal 83.5-101 [facility] Comment on above: Performed By: #### E SR, CREAT, HEPATIC, CBC #### [address] Mean Corpuscular HGB Conc 34.4 g/dL Normal 32.5-35.6 [facility] Comment on above: Performed By: #### E SR, CREAT, HEPATIC, CBC #### [place] [address] [place] Monocytes (Bld) [#/Vol] 0.5 10*3/uL Normal 0.0-0.8 [facility] Comment on above: Performed By: #### E SR, CREAT, HEPATIC, CBC #### [place] [address] [place] Monocytes/100 WBC (Bld) 11.2 % Normal . [facility] Comment on above: Performed By: #### E SR, CREAT, HEPATIC, CBC #### [address] Neutrophils (Bld) [#/Vol] 3.0 10*3/uL Normal 1.8-7.7 [facility] Comment on above: Performed By: #### E SR, CREAT, HEPATIC, CBC #### [address] Neutrophils/100 WBC (Bld) 71.1 % Normal . [facility] Comment on above: Performed By: #### E SR, CREAT, HEPATIC, CBC #### [address] NRBC% 0.2 /100{WBC} Normal 0-0.5 [facility] Comment on above: Performed By: #### E SR, CREAT, HEPATIC, CBC #### [address] Platelet mean volume (Bld) [Entitic vol] 8.5 fL Normal 6.6-10.1 [facility] Comment on above: Performed By: #### E SR, CREAT, HEPATIC, CBC #### [address] Platelets (Bld) [#/Vol] 123 10*3/uL Low 150-450 [facility] Comment on above: Performed By: #### E SR, CREAT, HEPATIC, CBC #### [address] RBC (Bld) [#/Vol] 3.40 10*6/uL Low 3.90-5.60 [facility] Comment on above: Performed By: #### E SR, CREAT, HEPATIC, CBC #### [address] WBC (Bld) [#/Vol] 4.2 10*3/uL Normal 4.1-10.5 [facility] Comment on above: Performed By: #### E SR, CREAT, HEPATIC, CBC #### [facility] [address] [id number] [facility] Creatinineon 07-19-2023 Creatinine [Mass/Vol] 1.09 mg/dL Normal 0.70-1.30 [facility] Comment on above: Performed By: #### C BC, HEPATIC, CREAT, ESR #### [facility] [address] GFR/1.73 sq M.predicted MDRD (S/P/Bld) [Vol rate/Area] mL/min/{1.73_m2} Normal [facility] Comment on above: Result Comment: PERF ORMED BY: [place] [address] PATHOLOGIST LAW LIBRARIAN NIYA BARRERA M.D. Performed By: #### C BC, HEPATIC, CREAT, ESR #### [address] Creatinine [Mass/volume] in Serum or PlasmaOrdered By: Michele Arteaga on 07-19-2023 Creatinine [Mass/Vol] 1.09 mg/dL 0.70-1.30 [facility] Eosinophils Auto (Bld) [#/Vo l]Ordered By: Michele Arteaga on 07-19-2023 Eosinophils (Bld) [#/Vol] 0.0 10*3/uL 0.0-0.45 [facility] Eosinophils/100 WBC Auto (Bl d)Ordered By: Michele Arteaga on 07-19-2023 Eosinophils/100 WBC (Bld) 0.9 % . [facility] Erythrocyte Sedimentation Ra shayy 07-19-2023 ESR (Bld) [Velocity] 5 mm/h Normal 0-19 [facility] Comment on above: Result Comment: PERF ORMED BY: [place] [address] PATHOLOGIST LAW LIBRARIAN NIYA BARRERA M.D. Performed By: #### C BC, HEPATIC, CREAT, ESR #### [address] [place] [id number] [facility] Erythrocyte distribution wid th Auto (RBC) [Ratio]Ordered By: Michele Arteaga on 07-19-2023 Erythrocyte distribution width (RBC) [Ratio] 14.6 % 12.0-14.8 [facility] Erythrocyte sedimentation ra te by Photometric methodOrdered By: Michele Arteaga on 07-19-2023 ESR Photometric method (Bld) [Velocity] 5 mm/hr 0-19 [facility] Globulin Calc (S) [Mass/Vol] Ordered By: Michele Arteaga on 07-19-2023 Globulin (S) [Mass/Vol] 1.7 g/dL [facility] Hematocrit Auto (Bld) [Volum e fraction]Ordered By: Michele Arteaga on 07-19-2023 Hematocrit (Bld) [Volume fraction] 31.9 % 38.8-50.0 [facility] Hemoglobin [Mass/volume] in BloodOrdered By: Michele Arteaga on 07-19-2023 Hemoglobin (Bld) [Mass/Vol] 11.0 g/dL 13.0-17.0 [facility] Hepatic Panelon 07-19-2023 Albumin [Mass/Vol] 4.1 g/dL Normal 3.5-5.7 [facility] Comment on above: Performed By: #### C BC, HEPATIC, CREAT, ESR #### [facility] [address] Albumin/Globulin [Mass ratio] 2.4 {ratio} Normal [facility] Comment on above: Performed By: #### C BC, HEPATIC, CREAT, ESR #### [facility] [address] [id number] [facility] ALP [Catalytic activity/Vol] 63 U/L Normal 34-104 [facility] Comment on above: Performed By: #### C BC, HEPATIC, CREAT, ESR #### [facility] [address] [phone] [place] ALT [Catalytic activity/Vol] 32 U/L Normal 7-52 [facility] Comment on above: Performed By: #### C BC, HEPATIC, CREAT, ESR #### [facility] [address] [id number] [facility] AST [Catalytic activity/Vol] 22 U/L Normal 13-39 [facility] Comment on above: Performed By: #### C BC, HEPATIC, CREAT, ESR #### [facility] [address] [place] [address] Bilirubin [Mass/Vol] 0.6 mg/dL Normal 0.3-1.0 [facility] Comment on above: Performed By: #### C BC, HEPATIC, CREAT, ESR #### [address] Bilirubin,Indirect 0.5 mg/dL Normal [facility] Comment on above: Performed By: #### C BC, HEPATIC, CREAT, ESR #### [address] Bilirubin.indirect [Mass/Vol] 0.10 mg/dL Normal 0.03-0.18 [facility] Comment on above: Performed By: #### C BC, HEPATIC, CREAT, ESR #### [address] Globulin (S) [Mass/Vol] 1.7 g/dL Normal [facility] Comment on above: Performed By: #### C BC, HEPATIC, CREAT, ESR #### [address] Protein [Mass/Vol] 5.8 g/dL Low 6.4-8.9 [facility] Comment on above: Performed By: #### C BC, HEPATIC, CREAT, ESR #### [address] Leukocytes [#/volume] correc bert for nucleated erythrocytes in Blood by Automated counOrdered By: Michele Arteaga on 07-19-2023 WBC corrected for nucl RBC Auto (Bld) [#/Vol] 4.2 10*3/uL 4.1-10.5 [facility] Lymphocytes Auto (Bld) [#/Vo l]Ordered By: Michele Arteaga on 07-19-2023 Lymphocytes (Bld) [#/Vol] 0.7 10*3/uL 1.00-4.8 [facility] Lymphocytes/100 WBC Auto (Bl d)Ordered By: Michele Arteaga on 07-19-2023 Lymphocytes/100 WBC (Bld) 16.1 % . [facility] MCH Auto (RBC) [Entitic mass ]Ordered By: Michele Arteaga on 07-19-2023 MCH (RBC) [Entitic mass] 32.2 pg 27.5-35.2 [facility] MCHC Auto (RBC) [Mass/Vol]Or dered By: Michele Arteaga on 07-19-2023 MCHC (RBC) [Mass/Vol] 34.4 g/dL 32.5-35.6 [facility] MCV Auto (RBC) [Entitic vol] Ordered By: Michele Arteaga on 07-19-2023 MCV (RBC) [Entitic vol] 93.7 fL 83.5-101 [facility] Monocytes Auto (Bld) [#/Vol] Ordered By: Michele Arteaga on 07-19-2023 Monocytes (Bld) [#/Vol] 0.5 10*3/uL 0.0-0.8 [facility] Monocytes/100 WBC Auto (Bld) Ordered By: Michele Arteaga on 07-19-2023 Monocytes/100 WBC (Bld) 11.2 % . [facility] Neutrophils Auto (Bld) [#/Vo l]Ordered By: Michele Arteaga on 07-19-2023 Neutrophils (Bld) [#/Vol] 3.0 10*3/uL 1.8-7.7 [facility] Neutrophils/100 WBC Auto (Bl d)Ordered By: Michele Arteaga on 07-19-2023 Neutrophils/100 WBC (Bld) 71.1 % . [facility] No Panel InformationOrdered By: Michele Arteaga on 07-19-2023 Estimated GFR (CKD-EPI) > 60.0 mL/Min [facility] Creatinine Clearance (Chem N/A [facility] Nucleated erythrocytes [Pres ence] in Blood by Automated countOrdered By: Michele Arteaga on 07-19-2023 Nucleated RBC Auto Ql (Bld) 0.2 /100{WBC} 0-0.5 [facility] Platelet mean volume Auto (B ld) [Entitic vol]Ordered By: Michele Arteaga on 07-19-2023 Platelet mean volume (Bld) [Entitic vol] 8.5 fL 6.6-10.1 [facility] Platelets Auto (Bld) [#/Vol] Ordered By: Michele Arteaga on 07-19-2023 Platelets (Bld) [#/Vol] 123 10*3/uL 150-450 [facility] Protein [Mass/volume] in Ser um or PlasmaOrdered By: Michele Arteaga on 07-19-2023 Protein [Mass/Vol] 5.8 g/dL 6.4-8.9 [facility] RBC Auto (Bld) [#/Vol]Ordere d By: Michele Arteaga on 07-19-2023 RBC (Bld) [#/Vol] 3.40 10*6/uL 3.90-5.60 [facility] Serum or plasma albumin/glob ulin mass ratioOrdered By: Michele Arteaga on 07-19-2023 Albumin/Globulin [Mass ratio] 2.4 {ratio} [facility] Serum or plasma non-glucuron idated bilirubin measurement (mass/volume)Ordered By: Michele Arteaga on 07-19-2023 Bilirubin.indirect [Mass/Vol] 0.5 mg/dL [facility] WBC Auto (Bld) [#/Vol]Ordere d By: Michele Arteaga on 07-19-2023 WBC (Bld) [#/Vol] 4.2 10*3/uL 4.1-10.5 [facility] Ambulatory Visit Summaryon 0 05-17-2023 Ambulatory Visit Summary NELLY QUIROZ :1935 Visit Date:05/17/2023 Ambulatory Visit Instructions Your Diagnosis BPH with urinary obstruction History of prostate cancer Nocturia Tests Performed Urnls Dip Stick Auto w/o Microscopy POC 12448 Your Care Team Attending Physician - MOY ARRIAGA, Cristela Carbajal Primary Care Physician - STEVE VARGAS DO This Is Your Medications List alfuzosin (alfuzosin 10 mg ER Tab) finasteride (finasteride 5 mg Tab) Contact prescribing physician if questions or concerns atorvastatin (Lipitor 40 mg Tab) calcium-vitamin D cholecalciferol (Vitamin D3 5000 intl units oral capsule) ferrous sulfate (Patrick Iron) furosemide (furosemide 20 mg Tab) hydroxychloroquine (Plaquenil 200 mg Tab) leflunomide (leflunomide 20 mg Tab) losartan (losartan 50 mg Tab) metoprolol (metoprolol 25 mg ER Tab) nitroglycerin (Nitro 0.4 mg Tab) spironolactone (spironolactone 25 mg Tab) warfarin (warfarin 5 mg Tab) Procedures Performed Cystoscopy (08/27/2014), 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 Discharge Vitals Heart Rate (Peripheral) 65 Respiratory Rate 16 Blood Pressure 106/69 Height 178 cm Height 70 in Weight 75.1 kg Weight 165.22 lb BMI 23.7 What to do next Scheduled Follow-Up Appointments Wednesday 8:45 AM EDT With: MOY ARRIAGA, Cristela Carbajal Where: [facility] Patient Educationon 05-17-20 23 Patient Education Oncology Prostate Cancer The prostate is a small gland that produces fluid that makes up semen (seminal fluid). It is located below the bladder in men, in front of the rectum. Prostate cancer is the abnormal growth of cells in the prostate gland. What are the causes? The exact cause of this condition is not known. What increases the risk? You are more likely to develop this condition if: ? You are 65 years of age or older. ? You have a family history of prostate cancer. ? You have a family history of breast and ovarian cancer. ? You have genes that are passed from parent to child (inherited), such as BRCA1 and BRCA2. ? You have Dasilva syndrome. men and men of descent are diagnosed with prostate cancer at higher rates than other men. The reasons for this are not well understood and are likely due to a combination of genetic and environmental factors. What are the signs or symptoms? Symptoms of this condition include: ? Problems with urination. This may include: ? A weak or interrupted flow of urine. ? Trouble starting or stopping urination. ? Trouble emptying the bladder all the way. ? The need to urinate more often, especially at night. ? Blood in urine or semen. ? Persistent pain or discomfort in the lower back, lower abdomen, or hips. ? Trouble getting an erection. ? Weakness or numbness in the legs or feet. How is this diagnosed? This condition can be diagnosed with: ? A digital rectal exam. For this exam, a health care provider inserts a gloved finger into the rectum to feel the prostate gland. ? A blood test called a prostate-specific antigen (PSA) test. ? A procedure in which a sample of tissue is taken from the prostate and checked under a microscope (prostate biopsy). ? An imaging test called transrectal ultrasonography. Once the condition is diagnosed, tests will be done to determine how far the cancer has spread. This is called staging the cancer. Staging may involve imaging tests, such as a bone scan, CT scan, PET scan, or MRI. Stages of prostate cancer The stages of prostate cancer are as follows: ? Stage 1 (I). At this stage, the cancer is found in the prostate only. The cancer is not visible on imaging tests, and it is usually found by accident, such as during prostate surgery. ? Stage 2 (II). At this stage, the cancer is more advanced than it is in stage 1, but the cancer has not spread outside the prostate. ? Stage 3 (III). At this stage, the cancer has spread beyond the outer layer of the prostate to nearby tissues. The cancer may be found in the seminal vesicles, which are near the bladder and the prostate. ? Stage 4 (IV). At this stage, the cancer has spread to other parts of the body, such as the lymph nodes, bones, bladder, rectum, liver, or lungs. Prostate cancer grading Prostate cancer is also graded according to how the cancer cells look under a microscope. This is called the Ringle score and the total score can range from 6?10, indicating how likely it is that the cancer will spread (metastasize) to other parts of the body. The higher the score, the greater the likelihood that the cancer will spread. ? Ringle 6 or lower: This indicates that the cancer cells look similar to normal prostate cells (well differentiated). ? Ringle 7: This indicates that the cancer cells look somewhat similar to normal prostate cells (moderately differentiated). ? Ringle 8, 9, or 10: This indicates that the cancer cells look very different than normal prostate cells (poorly differentiated). How is this treated? Treatment for this condition depends on several factors, including the stage of the cancer, your age, personal preferences, and your overall health. Talk with your health care provider about treatment options that are recommended for you. Common treatments include: ? Observation for early stage prostate cancer (active surveillance). This involves having exams, blood tests, and in some cases, more biopsies. For some men, this is the only treatment needed. ? Surgery. Types of surgeries include: ? Open surgery (radical prostatectomy). In this surgery, a larger incision is made to remove the prostate. ? A laparoscopic radical prostatectomy. This is a surgery to remove the prostate and lymph nodes through several small incisions. It is often referred to as a minimally invasive surgery. ? A robotic radical prostatectomy. This is laparoscopic surgery to remove the prostate and lymph nodes with the help of robotic arms that are controlled by the surgeon. ? Cryoablation. This is surgery to freeze and destroy cancer cells. ? Radiation treatment. Types of radiation treatment include: ? External beam radiation. This type aims beams of radiation from outside the body at the prostate to destroy cancerous cells. ? Brachytherapy. This type uses radioactive needles, seeds, wires, or tubes that are implanted into the prostate gland. Like external be (more content not included)... Normal [facility] Reminderson 05-17-2023 Reminders - From: Linda Izquierdo To: LEEANNE - Recalls Moy; Sent: 05/17/2023 16:51:39 EDT Show up: 04/16/2024 16:51:00 EDT Subject: PSA Reminder Message Please Remember to:_have pt get PSA done prior to appt. Normal [facility] Urology Office/Clinic Noteon 05-17-2023 Urology Office/Clinic Note Chief Complaint hx of prostate cancer HPI Staff 1 year with PSA. Previous dx of BPH with urinary obstruction (Evolve laser 2007), hx of prostate cancer (Brachytherapy 2009) and nocturia. Current PSA done 05/10/23 is <0.13. Pt is taking Finasteride 5mg QD and Alfuzosin 10mg ER QD. Dysuria: no Incomplete bladder emptying: no Hematuria: no Frequency: no Urgency: no Nocturia: 2-3x depending on amount has is drinking Stream: good stream no straining Leaking: no Post void dripping: yes Wearing pads/ Depends: no Urge incontinence: no Stress incontinence: no Incontinence without Sensory Awareness: no Abdominal pain: no Flank pain: no Sexual complaints: no History of Present Illness Tests reviewed: reviewed UA, PSA I have reviewed the previous health record information and history for this patient from Dr. Li. I have reviewed and verified the staff HPI to be accurate for this encounter. There have been no associated fever, chills, flank pain, or blood in the urine. Denies any urinary infections since last encounter. Review of Systems PHQ Score Initial Depression Screen Score: 0 ROS - Provider Constitutional: denies weight loss, denies hot flashes. Eyes: denies eye problems. Gastrointestinal: denies nausea, denies vomiting. Cardiovascular: denies chest pain or angina. Integumentary: no dryness Musculoskeletal: denies musculoskeletal symptoms. ENMT: denies otolaryngeal symptoms. Respiratory: no shortness of breath. Heme/Lymph: denies easy bleeding tendency, denies easy bruising tendency. Psychiatric: no confusion, no anxiety. Genitourinary: See HPI. Physical Exam Vitals & Measurements HR: 65(Peripheral) RR: 16 BP: 106/69 HT: 70 in HT: 178 cm WT: 75.1 kg WT: 165.22 lb BMI: 23.7 General Appearance: alert, no distress, well nourished, well developed male. Genitourinary: normal scrotum, normal testes, normal urethra, normal epididymis, normal vas deferens/spermatic cord. Flank Pain: none. Bladder: nonpalpable. Assessment/Plan 1. BPH with urinary obstruction (N40.1: Benign prostatic hyperplasia with lower urinary tract symptoms) S/P Evolve laser 2007. [1] Pt states he has a good stream. Feels he empties completely. Denies urgency. UA today negative for blood and infection. Pt continues taking Finasteride 5mg qd and Alfuzosin 10mg qd [2]. All questions/concerns were discussed. Pt to call the office if he encounters any issues prior. Pt acknowledges understanding. 2. History of prostate cancer (Z85.46: Personal history of malignant neoplasm of prostate) S/P Brachytherapy 2008 [3] PSA 03/31/21 - 0.05 04/07/22 - 0.05 05/10/23 - <0.13 Follow up with PSA in 1 year or sooner if needed. Pt understands and agrees with plan. 3. Nocturia (R35.1: Nocturia) Ongoing, 2-3x/night Follow-up With When Contact Information MOY ARRIAGA, Cristela Carbajal, TOM In 1 year [facility] [address], [place] [address] [phone] Additional Instructions: PSA Patient Education Prostate Cancer I, Linda Izquierdo, personally scribed for Dr. Li on 05/17/2023 09:43:04. . Documentation recorded by the scribe, Linda Izquierdo, accurately reflects the services(s) I performed and decisions made by me. Authenticated by Dr. Li on 05/17/2023 09:45:02. 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 Medications alfuzosin 10 mg ER Tab, 10 mg= 1 tab(s), Oral, Daily, 3 refills calcium-vitamin D Patrick Iron finasteride 5 mg Tab, 5 mg= 1 tab(s), Oral, Daily, 3 refills furosemide 20 mg Tab, Oral, Daily leflunomide 20 mg Tab, Oral, Daily Lipitor 40 mg Tab losartan 50 mg Tab, Oral, Daily metoprolol 25 mg ER Tab, Oral, Daily Nitro 0.4 mg Tab, 1 tab(s), SubLingual, q5min, PRN Plaquenil 200 mg Tab spironolactone 25 mg Tab, Oral, BID Vitamin D3 5000 intl units oral capsule, 5000 International_Unit= 1 cap(s), Oral, Daily warfarin 5 mg Tab, Oral, Daily Allergies Latex penicillins Social History Tobacco Never (less than 100 in lifetime) Tobacco Use:., 03/28/2020 Family History Primary malignant neoplasm of prostate: Grandparent. Immunizations Vaccine Date Status SARS-CoV-2 (COVID-19) mRNA-1273 (more content not included)... Normal [facility] Comment on above: Result Comment: Elec tronically Signed By: Cristela LI MD\.br\Date and Time Signed: 05/17/23 09:46 EDT\.br\Electronically Co-Signed By: Linda Izquierdo\.br\Date and Time Co-Signed: 05/17/23 09:43 EDT Lab Reportson 05-11-2023 Lab Reports [id number] .[id number]:127 Normal [facility] Office Visiton 04-28-2023 Follow-up visit [id number] Nelly Quiroz 1935 M Date Provider Department Center 04/28/2023 Blanca-YULIANA RODRIGUEZ Family History Problem Relation Age of Onset Other Mother Coronary artery disease Father Family Status - Relation Status Age at Mother Father Level of Service:22738 MA OFFICE/OUTPATIENT ESTABLISHED MOD MDM 30-39 MIN Normal [facility] Huan 03-30-2023 L - -------- Specimen: [id number] Received: 03/30/23 Status: RYAN Bui Num: [id number] Spec Type: Surgical Subm Dr: Jose R Cruz MD Tissues: A Soft Tissue/Surgical Margin-Other than Tumor,Mass,Lip or Amie (POSTERIOR NECK Procedures: LANETTE, Gross/Micro L4 -------- Age/ Patient Sex Location Account Attending Physician -------- Nelly Quiroz/Karina DE [place]ANTOS [id number] Jose R Cruz MD -------- SPEC NUM: [id number] RECD: 03/30/23 STATUS: RYAN BUI NUM: [id number] HAN: 03/30/[address]: Jose R Cruz MD ENTERED: 03/30/23 DAVID ELIZABETH: SPEC TYPE: Surgical DEPT: S ORDERED: HE, Gross/Micro L4 ORDERED: LANETTE, Gross/Micro L4 Pathological Diagnosis Skin, posterior neck, excision: - Epidermal inclusion cyst. - Dermal solar elastosis. Clinical Information Mass, increasing in size, primary biopsy, D49.2?neoplasm of unspecified behavior of bone, soft tissue and skin Gross Description Received in formalin labeled with the patient's name, date of and posterior neck is a 2.1 x 1.3 x 1.3 cm yellow-foster, rubbery nodule with an overlying 2.0 x 1.2 cm ellipse of howard-white skin. The specimen is inked and sectioned revealing that the nodule contains caseous, yellow-howard material.. Labor Conciliator sections are submitted in one cassette labeled A1. Microscopic Description One H E slide reviewed. The microscopic examination confirms the diagnosis. -------- Specimen: [id number] Received: 03/30/23 Status: RYAN Bui Num: [id number] Spec Type: Surgical Subm Dr: Jose R Cruz MD Tissues: A Soft Tissue/Surgical Margin-Other than Tumor,Mass,Lip or Amie (POSTERIOR NECK Procedures: Brennan GAMA/Hever L4 -------- Patient: Nelly Quiroz [id number] (Continued) -------- Specimen: [id number] Received: 03/30/23 (Continued) Signed (signature on file) Lucrecia Ochoa MD 03/31/23 1239 -------- Specimen: [id number] Received: 03/30/23 Status: RYAN Bui Num: [id number] Spec Type: Surgical Subm Dr: Jose R Cruz MD Tissues: A Soft Tissue/Surgical Margin-Other than Tumor,Mass,Lip or Amie (POSTERIOR NECK Procedures: Brennan GAMA/Hever L4 -------- Patient: Nelly Quiroz [id number] (Continued) -------- Specimen: [id number] Received: 03/30/23 (Continued) CPT Codes 40431 -------- -------- Specimen: [id number] Received: 03/30/23 Status: RYAN Bui Num: [id number] Spec Type: Surgical Subm Dr: Jose R Cruz MD Tissues: A Soft Tissue/Surgical Margin-Other than Tumor,Mass,Lip or Amie (POSTERIOR NECK Procedures: Brennan GAMA/Hever L4 -------- Patient: Nelly Quiroz [id number] (Continued) -------- Signed (signature on file) Lucrecia Ochoa MD 03/31/23 0206 [facility] Alanine aminotransferase [En zymatic activity/volume] in Serum or PlasmaOrdered By: Michele Arteaga on 03-23-2023 ALT [Catalytic activity/Vol] 23 U/L [facility] Albumin [Mass/volume] in Ser um or Plasma by Bromocresol green (BCG) dye binding methoOrdered By: Michele Arteaga on 03-23-2023 Albumin BCG dye [Mass/Vol] 4.4 g/dL 3.5-5.7 [facility] Alkaline phosphatase [Enzyma tic activity/volume] in Serum or PlasmaOrdered By: Michele Arteaga on 03-23-2023 ALP [Catalytic activity/Vol] 88 U/L 34-104 [facility] Aspartate aminotransferase [ Enzymatic activity/volume] in Serum or PlasmaOrdered By: Michele Arteaga on 03-23-2023 AST [Catalytic activity/Vol] 20 U/L 13-39 [facility] Basophils Auto (Bld) [#/Vol] Ordered By: Michele Arteaga on 03-23-2023 Basophils (Bld) [#/Vol] 0.0 10*3/uL 0.0-0.2 [facility] Basophils/100 WBC Auto (Bld) Ordered By: Michele Arteaga on 03-23-2023 Basophils/100 WBC (Bld) 0.8 % . [facility] Bilirubin.direct [Mass/volum e] in Serum or PlasmaOrdered By: Michele Arteaga on 03-23-2023 Bilirubin.direct [Mass/Vol] 0.20 mg/dL 0.03-0.18 [facility] Bilirubin.total [Mass/volume ] in Serum or PlasmaOrdered By: Michele Arteaga on 03-23-2023 Bilirubin [Mass/Vol] 0.7 mg/dL 0.3-1.0 [facility] Complete Blood Count Auto Di ffon 03-23-2023 Basophils (Bld) [#/Vol] 0.0 10*3/uL Normal 0.0-0.2 [facility] Comment on above: Performed By: #### C BC, HEPATIC, CREAT, ESR #### [facility] [address] [place] [address] [place] Basophils/100 WBC (Bld) 0.8 % Normal . [facility] Comment on above: Performed By: #### C BC, HEPATIC, CREAT, ESR #### [facility] [address] [place] [address] [place] Eosinophils (Bld) [#/Vol] 0.1 10*3/uL Normal 0.0-0.45 [facility] Comment on above: Performed By: #### C BC, HEPATIC, CREAT, ESR #### [address] Eosinophils/100 WBC (Bld) 1.3 % Normal . [facility] Comment on above: Performed By: #### C BC, HEPATIC, CREAT, ESR #### [address] Erythrocyte distribution width (RBC) [Ratio] 14.8 % Normal 12.0-14.8 [facility] Comment on above: Performed By: #### C BC, HEPATIC, CREAT, ESR #### [address] Hematocrit (Bld) [Volume fraction] 30.1 % Low 38.8-50.0 [facility] Comment on above: Performed By: #### C BC, HEPATIC, CREAT, ESR #### [address] Hemoglobin (Bld) [Mass/Vol] 10.3 g/dL Low 13.0-17.0 [facility] Comment on above: Performed By: #### C BC, HEPATIC, CREAT, ESR #### [address] Lymphocytes (Bld) [#/Vol] 0.7 10*3/uL Low 1.00-4.8 [facility] Comment on above: Performed By: #### C BC, HEPATIC, CREAT, ESR #### [address] Lymphocytes/100 WBC (Bld) 12.4 % Normal . [facility] Comment on above: Performed By: #### C BC, HEPATIC, CREAT, ESR #### [address] MCH (RBC) [Entitic mass] 32.1 pg Normal 27.5-35.2 [facility] Comment on above: Performed By: #### C BC, HEPATIC, CREAT, ESR #### [address] MCV (RBC) [Entitic vol] 93.8 fL Normal 83.5-101 [facility] Comment on above: Performed By: #### C BC, HEPATIC, CREAT, ESR #### [address] Mean Corpuscular HGB Conc 34.2 g/dL Normal 32.5-35.6 [facility] Comment on above: Performed By: #### C BC, HEPATIC, CREAT, ESR #### [address] Monocytes (Bld) [#/Vol] 0.7 10*3/uL Normal 0.0-0.8 [facility] Comment on above: Performed By: #### C BC, HEPATIC, CREAT, ESR #### [address] Monocytes/100 WBC (Bld) 12.3 % Normal . [facility] Comment on above: Performed By: #### C BC, HEPATIC, CREAT, ESR #### [address] Neutrophils (Bld) [#/Vol] 4.3 10*3/uL Normal 1.8-7.7 [facility] Comment on above: Performed By: #### C BC, HEPATIC, CREAT, ESR #### [address] Neutrophils/100 WBC (Bld) 73.2 % Normal . [facility] Comment on above: Performed By: #### C BC, HEPATIC, CREAT, ESR #### [place] [address] [place] NRBC% 0.1 /100{WBC} Normal 0-0.5 [facility] Comment on above: Performed By: #### C BC, HEPATIC, CREAT, ESR #### [address] Platelet mean volume (Bld) [Entitic vol] 8.2 fL Normal 6.6-10.1 [facility] Comment on above: Performed By: #### C BC, HEPATIC, CREAT, ESR #### [facility] [address] Platelets (Bld) [#/Vol] 162 10*3/uL Normal 150-450 [facility] Comment on above: Performed By: #### C BC, HEPATIC, CREAT, ESR #### [facility] [address] RBC (Bld) [#/Vol] 3.21 10*6/uL Low 3.90-5.60 [facility] Comment on above: Performed By: #### C BC, HEPATIC, CREAT, ESR #### [facility] [address] WBC (Bld) [#/Vol] 5.9 10*3/uL Normal 4.1-10.5 [facility] Comment on above: Performed By: #### C BC, HEPATIC, CREAT, ESR #### [facility] [address] Creatinineon 03-23-2023 Creatinine [Mass/Vol] 1.10 mg/dL Normal 0.70-1.30 [facility] Comment on above: Performed By: #### C BC, HEPATIC, CREAT, ESR #### [address] GFR/1.73 sq M.predicted MDRD (S/P/Bld) [Vol rate/Area] mL/min/{1.73_m2} Normal [facility] Comment on above: Result Comment: PERF ORMED BY: [place] [address] PATHOLOGIST LAW LIBRARIAN NIYA BARRERA M.D. Performed By: #### C BC, HEPATIC, CREAT, ESR #### [address] Creatinine [Mass/volume] in Serum or PlasmaOrdered By: Michele Arteaga on 03-23-2023 Creatinine [Mass/Vol] 1.10 mg/dL 0.70-1.30 [facility] Eosinophils Auto (Bld) [#/Vo l]Ordered By: iMchele Arteaga on 03-23-2023 Eosinophils (Bld) [#/Vol] 0.1 10*3/uL 0.0-0.45 [facility] Eosinophils/100 WBC Auto (Bl d)Ordered By: Michele Arteaga on 03-23-2023 Eosinophils/100 WBC (Bld) 1.3 % . [facility] Erythrocyte Sedimentation Ra shayy 03-23-2023 ESR (Bld) [Velocity] 21 mm/h High 0-19 [facility] Comment on above: Result Comment: PERF ORMED BY: [place] [address] PATHOLOGIST LAW LIBRARIAN NIYA BARRERA M.D. Performed By: #### C BC, HEPATIC, CREAT, ESR #### [address] Erythrocyte distribution wid th Auto (RBC) [Ratio]Ordered By: Michele Arteaga on 03-23-2023 Erythrocyte distribution width (RBC) [Ratio] 14.8 % 12.0-14.8 [facility] Erythrocyte sedimentation ra te by Photometric methodOrdered By: Michele Arteaga on 03-23-2023 ESR Photometric method (Bld) [Velocity] 21 mm/hr 0-19 [facility] Globulin Calc (S) [Mass/Vol] Ordered By: Michele Arteaga on 03-23-2023 Globulin (S) [Mass/Vol] 1.8 g/dL [facility] Hematocrit Auto (Bld) [Volum e fraction]Ordered By: Michele Arteaga on 03-23-2023 Hematocrit (Bld) [Volume fraction] 30.1 % 38.8-50.0 [facility] Hemoglobin [Mass/volume] in BloodOrdered By: Michele Arteaga on 03-23-2023 Hemoglobin (Bld) [Mass/Vol] 10.3 g/dL 13.0-17.0 [facility] Hepatic Panelon 03-23-2023 Albumin [Mass/Vol] 4.4 g/dL Normal 3.5-5.7 [facility] Comment on above: Performed By: #### C BC, HEPATIC, CREAT, ESR #### [facility] [address] Albumin/Globulin [Mass ratio] 2.4 {ratio} Normal [facility] Comment on above: Performed By: #### C BC, HEPATIC, CREAT, ESR #### [facility] [address] ALP [Catalytic activity/Vol] 88 U/L Normal 34-104 [facility] Comment on above: Performed By: #### C BC, HEPATIC, CREAT, ESR #### [facility] [address] ALT [Catalytic activity/Vol] 23 U/L Normal 7-52 [facility] Comment on above: Performed By: #### C BC, HEPATIC, CREAT, ESR #### [address] AST [Catalytic activity/Vol] 20 U/L Normal 13-39 [facility] Comment on above: Performed By: #### C BC, HEPATIC, CREAT, ESR #### [address] Bilirubin [Mass/Vol] 0.7 mg/dL Normal 0.3-1.0 [facility] Comment on above: Performed By: #### C BC, HEPATIC, CREAT, ESR #### [address] Bilirubin,Indirect 0.5 mg/dL Normal [facility] Comment on above: Performed By: #### C BC, HEPATIC, CREAT, ESR #### [facility] [address] [place] [address] Bilirubin.indirect [Mass/Vol] 0.20 mg/dL High 0.03-0.18 [facility] Comment on above: Performed By: #### C BC, HEPATIC, CREAT, ESR #### [address] Globulin (S) [Mass/Vol] 1.8 g/dL Normal [facility] Comment on above: Performed By: #### C BC, HEPATIC, CREAT, ESR #### [facility] [address] Protein [Mass/Vol] 6.2 g/dL Low 6.4-8.9 [facility] Comment on above: Performed By: #### C BC, HEPATIC, CREAT, ESR #### [facility] [address] Leukocytes [#/volume] correc bert for nucleated erythrocytes in Blood by Automated counOrdered By: Michele Arteaga on 03-23-2023 WBC corrected for nucl RBC Auto (Bld) [#/Vol] 5.9 10*3/uL 4.1-10.5 [facility] Lymphocytes Auto (Bld) [#/Vo l]Ordered By: Michele Arteaga on 03-23-2023 Lymphocytes (Bld) [#/Vol] 0.7 10*3/uL 1.00-4.8 [facility] Lymphocytes/100 WBC Auto (Bl d)Ordered By: Michele Arteaga on 03-23-2023 Lymphocytes/100 WBC (Bld) 12.4 % . [facility] MCH Auto (RBC) [Entitic mass ]Ordered By: Michele Arteaga on 03-23-2023 MCH (RBC) [Entitic mass] 32.1 pg 27.5-35.2 [facility] MCHC Auto (RBC) [Mass/Vol]Or dered By: Michele Arteaga on 03-23-2023 MCHC (RBC) [Mass/Vol] 34.2 g/dL 32.5-35.6 [facility] MCV Auto (RBC) [Entitic vol] Ordered By: Michele Arteaga on 03-23-2023 MCV (RBC) [Entitic vol] 93.8 fL 83.5-101 [facility] Monocytes Auto (Bld) [#/Vol] Ordered By: Michele Arteaga on 03-23-2023 Monocytes (Bld) [#/Vol] 0.7 10*3/uL 0.0-0.8 [facility] Monocytes/100 WBC Auto (Bld) Ordered By: Michele Arteaga on 03-23-2023 Monocytes/100 WBC (Bld) 12.3 % . [facility] Neutrophils Auto (Bld) [#/Vo l]Ordered By: Michele Arteaga on 03-23-2023 Neutrophils (Bld) [#/Vol] 4.3 10*3/uL 1.8-7.7 [facility] Neutrophils/100 WBC Auto (Bl d)Ordered By: Michele Arteaga on 03-23-2023 Neutrophils/100 WBC (Bld) 73.2 % . [facility] No Panel InformationOrdered By: Michele Arteaga on 03-23-2023 Estimated GFR (CKD-EPI) > 60.0 mL/Min [facility] Creatinine Clearance (Chem N/A [facility] Nucleated erythrocytes [Pres ence] in Blood by Automated countOrdered By: Michele Arteaga on 03-23-2023 Nucleated RBC Auto Ql (Bld) 0.1 /100{WBC} 0-0.5 [facility] Platelet mean volume Auto (B ld) [Entitic vol]Ordered By: Michele Arteaga on 03-23-2023 Platelet mean volume (Bld) [Entitic vol] 8.2 fL 6.6-10.1 [facility] Platelets Auto (Bld) [#/Vol] Ordered By: Michele Arteaga on 03-23-2023 Platelets (Bld) [#/Vol] 162 10*3/uL 150-450 [facility] Protein [Mass/volume] in Ser um or PlasmaOrdered By: Michele Arteaga on 03-23-2023 Protein [Mass/Vol] 6.2 g/dL 6.4-8.9 [facility] RBC Auto (Bld) [#/Vol]Ordere d By: Michele Arteaga on 03-23-2023 RBC (Bld) [#/Vol] 3.21 10*6/uL 3.90-5.60 [facility] Serum or plasma albumin/glob ulin mass ratioOrdered By: Michele Arteaga on 03-23-2023 Albumin/Globulin [Mass ratio] 2.4 {ratio} [facility] Serum or plasma non-glucuron idated bilirubin measurement (mass/volume)Ordered By: Michele Alvarezrenan on 03-23-2023 Bilirubin.indirect [Mass/Vol] 0.5 mg/dL [facility] WBC Auto (Bld) [#/Vol]Ordere d By: Michele Alvarezrenan on 03-23-2023 WBC (Bld) [#/Vol] 5.9 10*3/uL 4.1-10.5 [facility] Covid-19 PCR (CVDTBH)on 01-03 SARS-CoV-2 (COVID-19) RNA JOSEMANUEL+probe Ql (Unsp spec) Not detected Normal NOT DETECTED [facility] Comment on above: Result Comment: This test is not yet approved or cleared by the [place] FDA. When there are no FDA-approved or cleared tests available, and other criteria are met, FDA can make tests available under an emergency access mechanism called an Emergency Use Authorization (EUA). The EUA for this test is supported by the [place] of Health and Human Service's (HHS's) declaration that circumstances exist to justify the emergency use of in vitro diagnostics for the detection and/or diagnosis of the virus that causes COVID-19. This EUA will remain in effect (meaning this test can be used) for the duration of the COVID-19 declaration justifying emergency of IVDs, unless it is terminated or revoked by FDA (after which the test may no longer be used). When diagnostic testing is negative, the possibility of a false negative should be considered in the context of a patient's recent exposures and the presence of clinical signs and symptoms consistent with SARS-CoV-2. Performed By: #### C VDTB #### [facility] [address] [place] [address] Dr. Robb Martin SYMPTOMATIC COVID-19 ANTIGEN on 01-22-2023 EUA Statement SEE BELOW Normal [facility] Comment on above: Result Comment: This test has not been FDA cleared or approved, but has been authorized by the FDA under an Emergency Use Authorization (EUA) for use by authorized laboratories certified under CLIA that meet the requirements to perform moderate or high complexity testing. This test has been authorized only for the detection of proteins from SARS-CoV-2, not for any other viruses or pathogens. The emergency use of this test is authorized for the duration of the declaration that circumstances exist justifying the authorization of emergency use of in vitro diagnostic tests for detection and/or diagnosis of Covid-19 under section 564(b)(1) of the Act, 21 U.S.C. 360bbb-3(b)(1), unless the declaration is terminated or authorization is revoked sooner. Performed By: #### C VDAGS #### [facility] [address] [place] [address] Dr. Robb Martin SARS-CoV-2 (COVID-19) RNA JOSEMANUEL+probe Ql (Unsp spec) Negative Normal NEGATIVE [facility] Comment on above: Performed By: #### C HEATHERS #### [facility] [address] [place] [address] Dr. Robb Martin Albumin [Mass/volume] in Ser um or PlasmaOrdered By: Michele Arteaga on 11-19-2022 Albumin [Mass/Vol] 4.1 g/dL 3.2-5.5 [facility] Basophils Auto (Bld) [#/Vol] Ordered By: Michele Arteaga on 11-19-2022 Basophils (Bld) [#/Vol] 0.1 10*3/uL 0.0-0.2 [facility] Basophils/100 WBC Auto (Bld) Ordered By: Michele Arteaga on 11-19-2022 Basophils/100 WBC (Bld) 1.0 % . [facility] Complete Blood Count Auto Di ffon 11-19-2022 Basophils (Bld) [#/Vol] 0.1 10*3/uL Normal 0.0-0.2 [facility] Comment on above: Performed By: #### C REAT, CBC, ESR, HEPATIC #### [facility] [address] Basophils/100 WBC (Bld) 1.0 % Normal . [facility] Comment on above: Performed By: #### C REAT, CBC, ESR, HEPATIC #### [facility] [address] [place] [address] [place] Eosinophils (Bld) [#/Vol] 0.1 10*3/uL Normal 0.0-0.45 [facility] Comment on above: Performed By: #### C REAT, CBC, ESR, HEPATIC #### [facility] [address] [place] [address] Eosinophils/100 WBC (Bld) 1.6 % Normal . [facility] Comment on above: Performed By: #### C REAT, CBC, ESR, HEPATIC #### [address] Erythrocyte distribution width (RBC) [Ratio] 14.1 % Normal 12.0-14.8 [facility] Comment on above: Performed By: #### C REAT, CBC, ESR, HEPATIC #### [address] Hematocrit (Bld) [Volume fraction] 34.7 % Low 38.8-50.0 [facility] Comment on above: Performed By: #### C REAT, CBC, ESR, HEPATIC #### [address] Hemoglobin (Bld) [Mass/Vol] 11.4 g/dL Low 13.0-17.0 [facility] Comment on above: Performed By: #### C REAT, CBC, ESR, HEPATIC #### [address] Lymphocytes (Bld) [#/Vol] 0.7 10*3/uL Low 1.00-4.8 [facility] Comment on above: Performed By: #### C REAT, CBC, ESR, HEPATIC #### [address] Lymphocytes/100 WBC (Bld) 15.2 % Normal . [facility] Comment on above: Performed By: #### C REAT, CBC, ESR, HEPATIC #### [address] MCH (RBC) [Entitic mass] 30.8 pg Normal 27.5-35.2 [facility] Comment on above: Performed By: #### C REAT, CBC, ESR, HEPATIC #### [facility] [address] MCV (RBC) [Entitic vol] 94.2 fL Normal 83.5-101 [facility] Comment on above: Performed By: #### C REAT, CBC, ESR, HEPATIC #### [facility] [address] Mean Corpuscular HGB Conc 32.7 g/dL Normal 32.5-35.6 [facility] Comment on above: Performed By: #### C REAT, CBC, ESR, HEPATIC #### [address] Monocytes (Bld) [#/Vol] 0.6 10*3/uL Normal 0.0-0.8 [facility] Comment on above: Performed By: #### C REAT, CBC, ESR, HEPATIC #### [address] Monocytes/100 WBC (Bld) 11.5 % Normal . [facility] Comment on above: Performed By: #### C REAT, CBC, ESR, HEPATIC #### [address] Neutrophils (Bld) [#/Vol] 3.4 10*3/uL Normal 1.8-7.7 [facility] Comment on above: Performed By: #### C REAT, CBC, ESR, HEPATIC #### [address] Neutrophils/100 WBC (Bld) 70.7 % Normal . [facility] Comment on above: Performed By: #### C REAT, CBC, ESR, HEPATIC #### [address] NRBC% 0.0 /100{WBC} Normal 0-0.5 [facility] Comment on above: Performed By: #### C REAT, CBC, ESR, HEPATIC #### [address] Platelet mean volume (Bld) [Entitic vol] 9.3 fL Normal 6.6-10.1 [facility] Comment on above: Performed By: #### C REAT, CBC, ESR, HEPATIC #### [address] Platelets (Bld) [#/Vol] 122 10*3/uL Low 150-450 [facility] Comment on above: Performed By: #### C REAT, CBC, ESR, HEPATIC #### [address] RBC (Bld) [#/Vol] 3.69 10*6/uL Low 3.90-5.60 [facility] Comment on above: Performed By: #### C REAT, CBC, ESR, HEPATIC #### [address] WBC (Bld) [#/Vol] 4.8 10*3/uL Normal 4.1-10.5 [facility] Comment on above: Performed By: #### C REAT, CBC, ESR, HEPATIC #### [address] Creatinineon 11-19-2022 Creatinine [Mass/Vol] 1.11 mg/dL Normal 0.64-1.27 [facility] Comment on above: Performed By: #### C REAT, CBC, ESR, HEPATIC #### [address] Estimated GFR ( Tere > 60 [facility] Comment on above: Result Comment: GFR estimated reference range: According to KDOQI guidelines, <60 ml/min/1.73m2 is sufficient to diagnose a patient with chronic kidney disease. PERFORMED BY: [place] [address] PATHOLOGIST LAW LIBRARIAN NIYA BARRERA M.D. Performed By: #### C REAT, CBC, ESR, HEPATIC #### [address] Estimated GFR (Non- Am > 60 [facility] Comment on above: Performed By: #### C REAT, CBC, ESR, HEPATIC #### [facility] [address] Creatinine and Glomerular fi ltration rate.predicted panel (S/P/Bld)Ordered By: Michele Arteaga on 11-19-2022 Creatinine [Mass/Vol] 1.11 mg/dL 0.64-1.27 [facility] Direct bilirubin measurement Ordered By: Michele Arteaga on 11-19-2022 Bilirubin.direct [Mass/Vol] 0.2 mg/dL 0.0-0.4 [facility] Eosinophils Auto (Bld) [#/Vo l]Ordered By: Michele Arteaga on 11-19-2022 Eosinophils (Bld) [#/Vol] 0.1 10*3/uL 0.0-0.45 [facility] Eosinophils/100 WBC Auto (Bl d)Ordered By: Michele Arteaga on 11-19-2022 Eosinophils/100 WBC (Bld) 1.6 % . [facility] Erythrocyte Sedimentation Ra shayy 11-19-2022 ESR (Bld) [Velocity] 14 mm/h Normal 0-19 [facility] Comment on above: Result Comment: PERF ORMED BY: [place] [address] PATHOLOGIST LAW LIBRARIAN NIYA BARRERA M.D. Performed By: #### C REAT, CBC, ESR, HEPATIC #### [facility] [address] Erythrocyte distribution wid th Auto (RBC) [Ratio]Ordered By: Michele Arteaga on 11-19-2022 Erythrocyte distribution width (RBC) [Ratio] 14.1 % 12.0-14.8 [facility] Erythrocyte sedimentation ra te by Photometric methodOrdered By: Michele Arteaga on 11-19-2022 ESR Photometric method (Bld) [Velocity] 14 mm/hr 0-19 [facility] Estimated glomerular filtrat ion rate (GFR) non- AmericanOrdered By: Michele Arteaga on 11-19-2022 GFR/1.73 sq M.predicted among non-blacks MDRD (S/P/Bld) [Vol rate/Area] > 60 mL/Min [facility] Globulin Calc (S) [Mass/Vol] Ordered By: Michele Arteaga on 11-19-2022 Globulin (S) [Mass/Vol] 2.1 g/dL [facility] Hematocrit Auto (Bld) [Volum e fraction]Ordered By: Michele Arteaga on 11-19-2022 Hematocrit (Bld) [Volume fraction] 34.7 % 38.8-50.0 [facility] Hemoglobin [Mass/volume] in BloodOrdered By: Michele Arteaga on 11-19-2022 Hemoglobin (Bld) [Mass/Vol] 11.4 g/dL 13.0-17.0 [facility] Hepatic Panelon 11-19-2022 Albumin [Mass/Vol] 4.1 g/dL Normal 3.2-5.5 [facility] Comment on above: Performed By: #### C REAT, CBC, ESR, HEPATIC #### [facility] [address] Albumin/Globulin [Mass ratio] 2.0 {ratio} Normal [facility] Comment on above: Performed By: #### C REAT, CBC, ESR, HEPATIC #### [facility] [address] [place] [id number] [place] ALP [Catalytic activity/Vol] 78 U/L Normal 32-92 [facility] Comment on above: Performed By: #### C REAT, CBC, ESR, HEPATIC #### [facility] [address] [place] [id number] [place] ALT [Catalytic activity/Vol] 33 U/L Normal 10-60 [facility] Comment on above: Performed By: #### C REAT, CBC, ESR, HEPATIC #### [facility] [address] [place] [address] [place] AST [Catalytic activity/Vol] 26 U/L Normal 10-42 [facility] Comment on above: Performed By: #### C REAT, CBC, ESR, HEPATIC #### [facility] [address] [place] [address] [place] Bilirubin [Mass/Vol] 0.6 mg/dL Normal 0.3-1.2 [facility] Comment on above: Performed By: #### C REAT, CBC, ESR, HEPATIC #### [facility] [address] Bilirubin,Indirect 0.4 mg/dL Normal [facility] Comment on above: Performed By: #### C REAT, CBC, ESR, HEPATIC #### [facility] [address] Bilirubin.indirect [Mass/Vol] 0.2 mg/dL Normal 0.0-0.4 [facility] Comment on above: Performed By: #### C REAT, CBC, ESR, HEPATIC #### [facility] [address] Globulin (S) [Mass/Vol] 2.1 g/dL Normal [facility] Comment on above: Performed By: #### C REAT, CBC, ESR, HEPATIC #### [facility] [address] Protein [Mass/Vol] 6.2 g/dL Normal 6.1-7.9 [facility] Comment on above: Performed By: #### C REAT, CBC, ESR, HEPATIC #### [facility] [address] Leukocytes [#/volume] correc bert for nucleated erythrocytes in Blood by Automated counOrdered By: Michele Arteaga on 11-19-2022 WBC corrected for nucl RBC Auto (Bld) [#/Vol] 4.8 10*3/uL 4.1-10.5 [facility] Lymphocytes Auto (Bld) [#/Vo l]Ordered By: Michele Arteaga on 11-19-2022 Lymphocytes (Bld) [#/Vol] 0.7 10*3/uL 1.00-4.8 [facility] Lymphocytes/100 WBC Auto (Bl d)Ordered By: Michele Arteaga on 11-19-2022 Lymphocytes/100 WBC (Bld) 15.2 % . [facility] MCH Auto (RBC) [Entitic mass ]Ordered By: Michele Arteaga on 11-19-2022 MCH (RBC) [Entitic mass] 30.8 pg 27.5-35.2 [facility] MCHC Auto (RBC) [Mass/Vol]Or dered By: Michele Arteaga on 11-19-2022 MCHC (RBC) [Mass/Vol] 32.7 g/dL 32.5-35.6 [facility] MCV Auto (RBC) [Entitic vol] Ordered By: Michele Arteaga on 11-19-2022 MCV (RBC) [Entitic vol] 94.2 fL 83.5-101 [facility] Monocytes Auto (Bld) [#/Vol] Ordered By: Michele Arteaga on 11-19-2022 Monocytes (Bld) [#/Vol] 0.6 10*3/uL 0.0-0.8 [facility] Monocytes/100 WBC Auto (Bld) Ordered By: Michele Arteaga on 11-19-2022 Monocytes/100 WBC (Bld) 11.5 % . [facility] Neutrophils Auto (Bld) [#/Vo l]Ordered By: Michele Arteaga on 11-19-2022 Neutrophils (Bld) [#/Vol] 3.4 10*3/uL 1.8-7.7 [facility] Neutrophils/100 WBC Auto (Bl d)Ordered By: Michele Arteaga on 11-19-2022 Neutrophils/100 WBC (Bld) 70.7 % . [facility] No Panel InformationOrdered By: Michele Arteaga on 11-19-2022 Estimated GFR () > 60 mL/Min [facility] Comment on above: GFR estimated refere nce range: According to KDOQI guidelines, <60 ml/min/1.73m2 is sufficient to diagnose a patient with chronic kidney disease. Pharmacy Creatinine Clearance (Chem N/A [facility] Nucleated erythrocytes [Pres ence] in Blood by Automated countOrdered By: Michele Arteaga on 11-19-2022 Nucleated RBC Auto Ql (Bld) 0.0 /100{WBC} 0-0.5 [facility] Platelet mean volume Auto (B ld) [Entitic vol]Ordered By: Michele Arteaga on 11-19-2022 Platelet mean volume (Bld) [Entitic vol] 9.3 fL 6.6-10.1 [facility] Platelets Auto (Bld) [#/Vol] Ordered By: Michele Arteaga on 11-19-2022 Platelets (Bld) [#/Vol] 122 10*3/uL 150-450 [facility] Protein [Mass/volume] in Ser um or PlasmaOrdered By: Michele Arteaga on 11-19-2022 Protein [Mass/Vol] 6.2 g/dL 6.1-7.9 [facility] RBC Auto (Bld) [#/Vol]Ordere d By: Michele Arteaga on 11-19-2022 RBC (Bld) [#/Vol] 3.69 10*6/uL 3.90-5.60 [facility] Serum or plasma alanine ervin otransferase measurement without P-5'-P (enzymatic activiOrdered By: Michele Arteaga on 11-19-2022 ALT No additional P-5'-P [Catalytic activity/Vol] 33 U/L 10-60 [facility] Serum or plasma albumin/glob ulin mass ratioOrdered By: Michele Arteaga on 11-19-2022 Albumin/Globulin [Mass ratio] 2.0 {ratio} [facility] Serum or plasma alkaline daniel sphatase measurement (enzymatic activity/volume)Ordered By: Michele Arteaga on 11-19-2022 ALP [Catalytic activity/Vol] 78 U/L 32-92 [facility] Serum or plasma aspartate am inotransferase measurement (enzymatic activity/volume)Ordered By: Michele Arteaga on 11-19-2022 AST [Catalytic activity/Vol] 26 U/L 10-42 [facility] Serum or plasma non-glucuron idated bilirubin measurement (mass/volume)Ordered By: Michele Arteaga on 11-19-2022 Bilirubin.indirect [Mass/Vol] 0.4 mg/dL [facility] Serum or plasma total biliru bin measurement (mass/volume)Ordered By: Michele Arteaga on 11-19-2022 Bilirubin [Mass/Vol] 0.6 mg/dL 0.3-1.2 [facility] WBC Auto (Bld) [#/Vol]Ordere d By: Michele Arteaga on 11-19-2022 WBC (Bld) [#/Vol] 4.8 10*3/uL 4.1-10.5 [facility] HPon 11-11-2022 History Of Present Illness Nelly Quiroz is a 87 y.o. 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 However since Jul 2022, he has obserced faster HR. Today in Exam he was noted to be tachycardia. Last Device check performed on 04/20/2022 reveals a Biotronik device with 62% in the atrium and 100% BiV pacing. There has been a total of 13 A. fib episodes. LV threshold was 1.7 V at compared to the last one at 1.4V. A. fib episodes have been less than a minute in duration for the most part. He has been on Coumadin for anticoagulation wth no bleeding issues. EK09/29/22 Afib with RVR Echocardiogram performed on 04/20/2022 shows normalization of EF to 50% with a dilated left atrium and a dilated right atrium the right ventricular systolic pressure was 59 mmHg with a bioprosthetic mitral valve with a mean gradient of 5mmHg Cath 03/09/19 1. Mildly elevated right and left ventricular filling pressure. 2. Moderate pulmonary artery hypertension. 3. Reduced cardiac output and cardiac index. 4. There is no significant step-up in oxygen saturation in the right heartchambers. 5. Successful percutaneous intervention of mid LAD, reduction of 90%stenosis to 0 using a 3.0 x 16 Synergy stent. 6. Atretic OLGUIN to the LAD. 7. 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 8. No evidence of fistulous communication with pulmonary artery.. Patient is here for scheduled AVN ablation Past Medical History He has a past medical history of Atrial fibrillation (CMS/HCC), Coronary artery disease, Hyperlipidemia, Hypertension, Pacemaker, Prostate cancer (CMS/HCC), and Valvular heart disease. Surgical History He has a past surgical history that includes Coronary artery bypass graft; Insert / replace / remove pacemaker; Cardioversion (06/28/2018); Cardioversion (06/11/2017); and Cardioversion (05/19/2011). Social History He reports that he has quit smoking. His smoking use included cigars. He has been exposed to tobacco smoke. He has never used smokeless tobacco. He reports that he does not currently use alcohol. He reports that he does not use drugs. Allergies Latex, Penicillins, and Spironolactone Medications Medications Prior to Admission Medication Sig Dispense Refill Last Dose alfuzosin (Uroxatral) 10 mg 24 hr tablet Take 1 tablet by mouth in the morning. 11/10/2022 atorvastatin (Lipitor) 40 mg tablet Take 1 tablet (40 mg) by mouth in the morning. 90 tablet 3 11/10/2022 cholecalciferol (D3-5) 5,000 Units tablet Take 1 tablet every other day by oral route. 11/10/2022 ferrous sulfate 325 (65 Fe) MG tablet Take 65 mg by mouth with breakfast. 11/10/2022 finasteride (Proscar) 5 mg tablet Take 1 tablet by mouth in the morning. 11/10/2022 furosemide (Lasix) 20 mg tablet Take 1 tablet (20 mg) by mouth in the evening. 90 tablet 3 11/10/2022 hydroxychloroquine (Plaquenil) 200 mg tablet TAKE 1 TABLET BY MOUTH ONCE DAILY ALTERNATING WITH 1 TABLET TWICE DAILY WITH FOOD. CONFIRM WITH EYE DOCTOR ON YEARLY EYE EXAM FOR MEDICATION TOXICITY. 11/10/2022 ketorolac (Acular) 0.5 % ophthalmic solution INSTILL 1 DROP INTO AFFECTED EYE(S) TWICE DAILY 11/10/2022 leflunomide (Arava) 20 mg tablet Take 1 tablet by mouth in the morning. 11/10/2022 losartan (Cozaar) 50 mg tablet Take 1 tablet (50 mg) by mouth in the morning. 90 tablet 3 11/10/2022 metoprolol succinate XL (Toprol-XL) 25 mg 24 hr tablet Take 1 tablet by mouth in the morning. 11/10/2022 metoprolol succinate XL (Toprol-XL) 50 mg 24 hr tablet Take 1 tablet by mouth in the morning. 11/10/2022 prednisoLONE acetate (Pred-Forte) 1 % ophthalmic suspension INSTILL 1 DROP INTO AFFECTED EYE ONCE DAILY DIRECTED 11/10/2022 spironolactone (Aldactone) 25 mg tablet Take 1 tablet by mouth in the morning. 11/10/2022 warfarin (Coumadin) 5 mg tablet TAKE 1 & 1/2 (ONE & ONE-HALF) TABLETS BY MOUTH ONCE DAILY Past Week nitroglycerin (Nitrostat) 0.[address] by sublingual route as needed for 10 days. More than a month Review of Systems All other systems reviewed and are negative. Physical Exam Vitals reviewed. Constitutional: Appearance: Normal appearance. Cardiovascular: Rate and Rhythm: Normal rate and regular rhythm. Pulses: Normal pulses. Pulmonary: Effort: Pulmonary effort is normal. Breath sounds: Normal breath sounds. Abdominal: General: Abdomen is flat. Musculoskeletal: General: Normal range of motion. Cervical back: Normal range of motion. Skin: General: Skin is warm and dry. Capillary Refill: Capillary refill takes less than 2 seconds. Neurological: General: No focal deficit present. Mental Status: He is alert. Psychiatric: Mood and Affect: Mood normal. Behavior: Behavior normal. Last Recorded Vitals Blood pressure 148/66, pulse 71, resp. rate 17, SpO2 100 %. (more content not included)... Normal [facility] NURSNOTEon 11-11-[address] Little examined EKG and device appliance service representative at bedside interrogating patient's device. Per Dr. Little, pt does not need to have AV node ablation done at this time. Procedure not performed. Pt's daughter brought back to holding area to talk with Dr. Little. Pt getting dressed, eating snack before walking out of CVL with daughter. Normal [facility] CBC AUTO DIFFon 11-05-2022 BASO # 0.0 103/ul Normal 0.0-0.1 [facility] Comment on above: Performed By: #### C BC #### [facility] [address] [place] [address] Dr. Robb Martin Basophils/100 WBC (Bld) 0.7 % Normal 0.2-2.0 [facility] Comment on above: Performed By: #### C BC #### [facility] [address] [place] [address] Dr. Robb Martin EO # 0.1 103/ul Normal 0.0-0.7 [facility] Comment on above: Performed By: #### C BC #### [facility] [address] [place] [address] Dr. Robb Martin Eosinophils/100 WBC (Bld) 1.9 % Normal 0.9-7.0 [facility] Comment on above: Performed By: #### C BC #### [facility] [address] [place] [address] Dr. Robb Martin Erythrocyte distribution width (RBC) [Ratio] 13.4 % Normal 11.0-15.0 [facility] Comment on above: Performed By: #### C BC #### [facility] [address] [place] [address] Dr. Robb Martin Hematocrit (Bld) [Volume fraction] 33.3 % Critically low 42.0-54.0 [facility] Comment on above: Performed By: #### C BC #### [facility] [address] [place] [address] Dr. Robb Martin Hemoglobin (Bld) [Mass/Vol] 11.1 g/dL Critically low 14.0-18.0 [facility] Comment on above: Performed By: #### C BC #### [facility] [address] [place] [address] Dr. Robb Martin IG # 0.01 10e3/ul Normal 0.00-0.03 [facility] Comment on above: Performed By: #### C BC #### [facility] [address] [place] [address] Dr. Robb Martin IG % 0.2 % Normal 0.0-0.5 [facility] Comment on above: Performed By: #### C BC #### [facility] [address] [place] [address] Dr. Robb Martin LYMPH # 0.8 103/ul Critically low 1.2-3.8 [facility] Comment on above: Performed By: #### C BC #### [facility] [address] [place] [address] Dr. Robb Martin Lymphocytes/100 WBC (Bld) 17.6 % Critically low 20.5-60.0 [facility] Comment on above: Performed By: #### C BC #### [facility] [address] [place] [address] Dr. Robb Martin MANUAL DIFF REQ NO Normal [facility] Comment on above: Performed By: #### C BC #### [facility] [address] [place] [address] Dr. Robb Martin MCH (RBC) [Entitic mass] 30.4 pg Normal 25.9-34.0 [facility] Comment on above: Performed By: #### C BC #### [facility] [address] [place] [address] Dr. Robb Martin MCHC (RBC) [Mass/Vol] 33.3 g/dL Normal 29.9-35.2 [facility] Comment on above: Performed By: #### C BC #### [facility] [address] [place] [address] Dr. Robb Martin MCV (RBC) [Entitic vol] 91.2 fL Normal 80.0-94.0 [facility] Comment on above: Performed By: #### C BC #### [facility] [address] [place] [address] Dr. Robb Martin MONO # 0.6 103/ul Normal 0.3-0.8 [facility] Comment on above: Performed By: #### C BC #### [facility] [address] [place] [address] Dr. Robb Martin Monocytes/100 WBC (Bld) 13.9 % Critically high 1.7-12.0 [facility] Comment on above: Performed By: #### C BC #### [facility] [address] [place] [address] Dr. Robb Martin NEUT # 2.8 103/ul Normal 1.4-6.5 [facility] Comment on above: Performed By: #### C BC #### [facility] [address] [place] [address] Dr. Robb Martin Neutrophils/100 WBC (Bld) 65.7 % Normal 43.0-75.0 [facility] Comment on above: Performed By: #### C BC #### [facility] [address] [place] [address] Dr. Robb Martin Platelet mean volume (Bld) [Entitic vol] 10.3 fL Normal 9.5-13.5 [facility] Comment on above: Performed By: #### C BC #### [facility] [address] [place] [address] [address] Robb Martin PLT 141 103/ul Critically low 150-450 [facility] Comment on above: Performed By: #### C BC #### [facility] [address] [place] [address] [address] Robb Martin RBC 3.65 106/ul Critically low 4.70-6.10 [facility] Comment on above: Performed By: #### C BC #### [facility] [address] [place] [address] [address] Robb Martin WBC 4.3 103/ul Normal 4.0-11.0 [facility] Comment on above: Performed By: #### C BC #### [facility] [address] [place] [address] [address] Robb Martin PROF CHEM 8 (BAS METB)on Anion gap [Moles/Vol] 11.3 mmol/L Normal [facility] Comment on above: Performed By: #### B MP ####[facility] [address] [place] [address]DrSantos Martin Calcium [Mass/Vol] 9.2 mg/dL Normal 8.5-10.1 [facility] Comment on above: Performed By: #### B MP ####[facility] [address] [place] [address]DrSantos Martin Chloride [Moles/Vol] 105 mmol/L Normal 98-107 [facility] Comment on above: Performed By: #### B MP ####[facility] [address] [place] [address]DrSantos Martin CO2 [Moles/Vol] 30.7 mmol/L Normal 21.0-32.0 [facility] Comment on above: Performed By: #### B MP ####[facility] [address] [place] [address]DrSantos Martin Creatinine [Mass/Vol] 1.01 mg/dL Normal 0.70-1.30 [facility] Comment on above: Performed By: #### B MP ####[facility] [address] [place] [address]Dr. Robb Mario EGFR-AF WALLISIAN >60 Normal >=60 [facility] Comment on above: Performed By: #### B MP ####[facility] [address] [address] [id number]. Robb Mario EGFR-NON AF WALLISIAN >60 Normal >=60 [facility] Comment on above: Performed By: #### B MP ####[facility] [address] [place] [address]Dr. Candyelaina Mario Glucose [Mass/Vol] 103 mg/dL Normal 74-106 [facility] Comment on above: Performed By: #### B MP ####[facility] [address] [place] [address]Dr. Candyelaina Mario Potassium [Moles/Vol] 4.0 mmol/L Normal 3.5-5.1 [facility] Comment on above: Performed By: #### B MP ####[facility] [address] [place] [address]Dr. Robb Mario Sodium [Moles/Vol] 143 mmol/L Normal 136-145 [facility] Comment on above: Performed By: #### B MP ####[facility] [address] [place] [address]Dr. Robb Mario Urea nitrogen [Mass/Vol] 17.0 mg/dL Normal 7.0-18.0 [facility] Comment on above: Performed By: #### B MP ####[facility] [address] [place] [id number]. Candyelaina Mario Urea nitrogen/Creatinine [Mass ratio] 16.8 mg/mg Normal [facility] Comment on above: Performed By: #### B MP ####[facility] [address] [place] [address]Dr. Robb Martin Orders Onlyon 11-04-2022 Orders Only [id number] Nelly Quiroz 1935 M Date Provider Department Center 11/04/2022 MAGALIS ZUÑIGA [facility] MS HeartVAS Family History Problem Relation Age of Onset Other Mother Coronary artery disease Father Family Status - Relation Status Age at Mother Father Normal [facility] CBC AUTO DIFFon 09-29-2022 BASO # 0.0 103/ul Normal 0.0-0.1 [facility] Comment on above: Performed By: #### C BC #### [facility] [address] [address] [address] Robb Martin Basophils/100 WBC (Bld) 0.6 % Normal 0.2-2.0 [facility] Comment on above: Performed By: #### C BC #### [facility] [address] [place] [address] Dr. Robb Martin EO # 0.1 103/ul Normal 0.0-0.7 [facility] Comment on above: Performed By: #### C BC #### [facility] [address] [address] [address] Robb Martin Eosinophils/100 WBC (Bld) 1.4 % Normal 0.9-7.0 [facility] Comment on above: Performed By: #### C BC #### [facility] [address] [place] [address] Dr. Robb Martin Erythrocyte distribution width (RBC) [Ratio] 13.9 % Normal 11.0-15.0 [facility] Comment on above: Performed By: #### C BC #### [facility] [address] [address] [address] Robb Martin Hematocrit (Bld) [Volume fraction] 35.4 % Critically low 42.0-54.0 [facility] Comment on above: Performed By: #### C BC #### [facility] [address] [place] [address] Dr. Robb Martin Hemoglobin (Bld) [Mass/Vol] 11.3 g/dL Critically low 14.0-18.0 [facility] Comment on above: Performed By: #### C BC #### [facility] [address] [place] [address] Dr. Robb Martin IG # 0.01 10e3/ul Normal 0.00-0.03 [facility] Comment on above: Performed By: #### C BC #### [facility] [address] [place] [address] Dr. Robb Martin IG % 0.2 % Normal 0.0-0.5 [facility] Comment on above: Performed By: #### C BC #### [facility] [address] [place] [address] Dr. Robb Martin LYMPH # 0.7 103/ul Critically low 1.2-3.8 [facility] Comment on above: Performed By: #### C BC #### [facility] [address] [place] [address] Dr. Robb Martin Lymphocytes/100 WBC (Bld) 14.4 % Critically low 20.5-60.0 [facility] Comment on above: Performed By: #### C BC #### [facility] [address] [place] [address] Dr. Robb Martin MANUAL DIFF REQ NO Normal [facility] Comment on above: Performed By: #### C BC #### [facility] [address] [place] [address] Dr. Robb Martin MCH (RBC) [Entitic mass] 31.3 pg Normal 25.9-34.0 [facility] Comment on above: Performed By: #### C BC #### [facility] [address] [place] [address] Dr. Robb Martin MCHC (RBC) [Mass/Vol] 31.9 g/dL Normal 29.9-35.2 [facility] Comment on above: Performed By: #### C BC #### [facility] [address] [place] [address] Dr. Robb Martin MCV (RBC) [Entitic vol] 98.1 fL Critically high 80.0-94.0 [facility] Comment on above: Performed By: #### C BC #### [facility] [address] [place] [address] Dr. Robb Martin MONO # 0.6 103/ul Normal 0.3-0.8 [facility] Comment on above: Performed By: #### C BC #### [facility] [address] [place] [address] Dr. Robb Martin Monocytes/100 WBC (Bld) 11.1 % Normal 1.7-12.0 [facility] Comment on above: Performed By: #### C BC #### [facility] [address] [place] [address] Dr. Robb Martin NEUT # 3.7 103/ul Normal 1.4-6.5 [facility] Comment on above: Performed By: #### C BC #### [facility] [address] [place] [address] Dr. Robb Martin Neutrophils/100 WBC (Bld) 72.3 % Normal 43.0-75.0 [facility] Comment on above: Performed By: #### C BC #### [facility] [address] [place] [address] Dr. Robb Martin Platelet mean volume (Bld) [Entitic vol] 10.4 fL Normal 9.5-13.5 [facility] Comment on above: Performed By: #### C BC #### [facility] [address] [place] [address] Dr. Robb Martin PLT 122 103/ul Critically low 150-450 [facility] Comment on above: Performed By: #### C BC #### [facility] [address] [place] [address] Dr. Robb Martin RBC 3.61 106/ul Critically low 4.70-6.10 [facility] Comment on above: Performed By: #### C BC #### [facility] [address] [place], [place] [id number] Dr. Robb Martin WBC 5.2 103/ul Normal 4.0-11.0 [facility] Comment on above: Performed By: #### C BC #### [facility] [address] [place] [address] Dr. Robb Martin Office Visiton 09-29-2022 Follow-up visit [id number] Nelly Quiroz 1935 M Date Provider Department Center 09/29/2022 FILIPPO SMALLS [facility] Hos Family History Problem Relation Age of Onset Other Mother Coronary artery disease Father Family Status - Relation Status Age at Mother Father Level of Service:11055 [place] OFFICE/OUTPATIENT ESTABLISHED MOD MDM 30-39 MIN Reason for Visit and Comments: Device Check [3371] - 6 mo check up, with high pulse since end of July , dizziness, swelling in left lower leg, and would like to discuss spironolactone (dizziness) Normal [facility] PROF CHEM 8 (BAS METB)on Anion gap [Moles/Vol] 10.6 mmol/L Normal [facility] Comment on above: Performed By: #### B MP ####[facility] [address] [address]Dr. Robb Martin Calcium [Mass/Vol] 9.3 mg/dL Normal 8.5-10.1 [facility] Comment on above: Performed By: #### B MP ####[facility] [address] [address]Dr. Robb Martin Chloride [Moles/Vol] 103 mmol/L Normal 98-107 [facility] Comment on above: Performed By: #### B MP ####[facility] [address] [place] [address]Dr. Robb Martin CO2 [Moles/Vol] 30.2 mmol/L Normal 21.0-32.0 [facility] Comment on above: Performed By: #### B MP ####[facility] [address] [address]Dr. Robb Martin Creatinine [Mass/Vol] 0.98 mg/dL Normal 0.70-1.30 [facility] Comment on above: Performed By: #### B MP ####[facility] [address] [place] [address]Dr. Robb Martin EGFR-AF WALLISIAN >60 Normal >=60 [facility] Comment on above: Performed By: #### B MP ####[facility] [address] [id number]. Robb Martin EGFR-NON AF WALLISIAN >60 Normal >=60 [facility] Comment on above: Performed By: #### B MP ####[facility] [address] [place] [address]Dr. Robb Martin Glucose [Mass/Vol] 99 mg/dL Normal 74-106 [facility] Comment on above: Performed By: #### B MP ####[facility] [address] [place] [address]Dr. Robb Martin Potassium [Moles/Vol] 3.8 mmol/L Normal 3.5-5.1 [facility] Comment on above: Performed By: #### B MP ####[facility] [address] [place], [place] [address]Dr. Robb Martin Sodium [Moles/Vol] 140 mmol/L Normal 136-145 [facility] Comment on above: Performed By: #### B MP ####[facility] [address] [place], [place] [address]Dr. Robb Martin Urea nitrogen [Mass/Vol] 20.0 mg/dL Critically high 7.0-18.0 [facility] Comment on above: Performed By: #### B MP ####[facility] [address] [place], [place] [address]Dr. Robb Martin Urea nitrogen/Creatinine [Mass ratio] 20.4 mg/mg Normal [facility] Comment on above: Performed By: #### B MP ####[facility] [address] [place], [place] [address]Dr. Robb Martin Basophils Auto (Bld) [#/Vol] Ordered By: Michele Arteaga on 07-20-2022 Basophils (Bld) [#/Vol] 0.0 10*3/uL 0.0-0.2 [facility] Basophils/100 WBC Auto (Bld) Ordered By: Michele Arteaga on 07-20-2022 Basophils/100 WBC (Bld) 0.8 % . [facility] Body fluid albumin measureme nt (mass/volume)Ordered By: Michele Arteaga on 07-20-2022 Albumin (Body fld) [Mass/Vol] 3.8 g/dL 3.2-5.5 [facility] Creatinine and Glomerular fi ltration rate.predicted panel (S/P/Bld)Ordered By: Michele Arteaga on 07-20-2022 Creatinine [Mass/Vol] 1.00 mg/dL 0.64-1.27 [facility] Direct bilirubin measurement Ordered By: Michele Arteaga on 07-20-2022 Bilirubin.direct [Mass/Vol] 0.2 mg/dL 0.0-0.4 [facility] Eosinophils Auto (Bld) [#/Vo l]Ordered By: Michele Arteaga on 07-20-2022 Eosinophils (Bld) [#/Vol] 0.0 10*3/uL 0.0-0.45 [facility] Eosinophils/100 WBC Auto (Bl d)Ordered By: Michele Arteaga on 07-20-2022 Eosinophils/100 WBC (Bld) 1.0 % . [facility] Erythrocyte distribution wid th Auto (RBC) [Ratio]Ordered By: Michele Arteaga on 07-20-2022 Erythrocyte distribution width (RBC) [Ratio] 14.7 % 12.0-14.8 [facility] Erythrocyte sedimentation ra te by Photometric methodOrdered By: Michele Arteaga on 07-20-2022 ESR Photometric method (Bld) [Velocity] 13 mm/hr 0-19 [facility] Estimated glomerular filtrat ion rate (GFR) non- AmericanOrdered By: Michele Arteaga on 07-20-2022 GFR/1.73 sq M.predicted among non-blacks MDRD (S/P/Bld) [Vol rate/Area] > 60 mL/Min [facility] Globulin Calc (S) [Mass/Vol] Ordered By: Michele Arteaga on 07-20-2022 Globulin (S) [Mass/Vol] 2.1 g/dL [facility] Hematocrit Auto (Bld) [Volum e fraction]Ordered By: Michele Arteaga on 07-20-2022 Hematocrit (Bld) [Volume fraction] 32.4 % 38.8-50.0 [facility] Hemoglobin [Mass/volume] in BloodOrdered By: Michele Arteaga on 07-20-2022 Hemoglobin (Bld) [Mass/Vol] 10.8 g/dL 13.0-17.0 [facility] Laboratory - Hematology and Cell countsOrdered By: Michele Arteaga on 07-20-2022 Nucleated RBC/100 WBC (Bld) [Ratio] 0.0 % 0-0.5 [facility] Leukocytes [#/volume] in Blo od by Automated countOrdered By: Michele Arteaga on 07-20-2022 WBC (Bld) [#/Vol] 4.6 10*3/uL 4.5-11.0 [facility] Lymphocytes Auto (Bld) [#/Vo l]Ordered By: Michele Arteaga on 07-20-2022 Lymphocytes (Bld) [#/Vol] 0.6 10*3/uL 1.00-4.8 [facility] Lymphocytes/100 WBC Auto (Bl d)Ordered By: Michele Arteaga on 07-20-2022 Lymphocytes/100 WBC (Bld) 13.8 % . [facility] MCH Auto (RBC) [Entitic mass ]Ordered By: Michele Arteaga on 07-20-2022 MCH (RBC) [Entitic mass] 31.8 pg 27.5-35.2 [facility] MCHC Auto (RBC) [Mass/Vol]Or dered By: Michele Arteaga on 07-20-2022 MCHC (RBC) [Mass/Vol] 33.2 g/dL 32.5-35.6 [facility] MCV Auto (RBC) [Entitic vol] Ordered By: Michele Arteaga on 07-20-2022 MCV (RBC) [Entitic vol] 95.8 fL 83.5-101 [facility] Monocytes Auto (Bld) [#/Vol] Ordered By: Michele Arteaga on 07-20-2022 Monocytes (Bld) [#/Vol] 0.4 10*3/uL 0.0-0.8 [facility] Monocytes/100 WBC Auto (Bld) Ordered By: Michele Arteaga on 07-20-2022 Monocytes/100 WBC (Bld) 9.1 % . [facility] Neutrophils Auto (Bld) [#/Vo l]Ordered By: Michele Arteaga on 07-20-2022 Neutrophils (Bld) [#/Vol] 3.5 10*3/uL 1.8-7.7 [facility] Neutrophils/100 WBC Auto (Bl d)Ordered By: Michele Arteaga on 07-20-2022 Neutrophils/100 WBC (Bld) 75.3 % . [facility] No Panel InformationOrdered By: Michele Arteaga on 07-20-2022 Estimated GFR () > 60 mL/Min [facility] Comment on above: GFR estimated refere nce range: According to KDOQI guidelines, <60 ml/min/1.73m2 is sufficient to diagnose a patient with chronic kidney disease. Pharmacy Creatinine Clearance (Chem N/A [facility] Platelet mean volume Auto (B ld) [Entitic vol]Ordered By: Michele Arteaga on 07-20-2022 Platelet mean volume (Bld) [Entitic vol] 8.7 fL 6.6-10.1 [facility] Platelets Auto (Bld) [#/Vol] Ordered By: Michele Arteaga on 07-20-2022 Platelets (Bld) [#/Vol] 140 10*3/uL 150-450 [facility] Protein [Mass/volume] in Ser um or PlasmaOrdered By: Michele Arteaga on 07-20-2022 Protein [Mass/Vol] 5.9 g/dL 6.1-7.9 [facility] RBC Auto (Bld) [#/Vol]Ordere d By: Michele Arteaga on 07-20-2022 RBC (Bld) [#/Vol] 3.39 10*6/uL 3.90-5.60 [facility] Serum or plasma alanine ervin otransferase measurement without P-5'-P (enzymatic activiOrdered By: Michele Arteaga on 07-20-2022 ALT No additional P-5'-P [Catalytic activity/Vol] 29 U/L 1060 [facility] Serum or plasma albumin/glob ulin mass ratioOrdered By: Michele Arteaga on 07-20-2022 Albumin/Globulin [Mass ratio] 1.8 {ratio} [facility] Serum or plasma alkaline daniel sphatase measurement (enzymatic activity/volume)Ordered By: Michele Alvarezrenan on 07-20-2022 ALP [Catalytic activity/Vol] 68 U/L 32-92 [facility] Serum or plasma aspartate am inotransferase measurement (enzymatic activity/volume)Ordered By: Michele Alvarezrenan on 07-20-2022 AST [Catalytic activity/Vol] 24 U/L 10-42 [facility] Serum or plasma non-glucuron idated bilirubin measurement (mass/volume)Ordered By: Michele Chandler on 07-20-2022 Bilirubin.indirect [Mass/Vol] 0.7 mg/dL [facility] Serum or plasma total biliru bin measurement (mass/volume)Ordered By: Michele Arteaga on 07-20-2022 Bilirubin [Mass/Vol] 0.9 mg/dL 0.3-1.2 [facility] Abstracton 06-06-2022 Abstract [id number] Nelly Quiroz 1935 M Date Provider Department Center 06/06/2022 [facility] Family History Problem Relation Age of Onset Other Mother Coronary artery disease Father Family Status - Relation Status Age at Mother Father Normal [facility] ECHOCARDIO M/2D COMPLETEon 0 04-20-2022 ECHOCARDIO M/2D COMPLETE Patient: NELLY QUIROZ. Exam Date: 04/20/2022 : 1935 Gender:M Ordering : FILIPPO LITTLE Admission #: [id number] Family : DR STEVE VARGAS D.O. Order #: [id number] CLICK HERE TO VIEW EXAM ECHOCARDIOGRAM REPORT PROCEDURE: CARDIO PULMONARY ECHOCARDIO M/2D COMP INDICATIONS: Chronic Systolic Heart Failure, AICD, CABG x 4, PTCA, bioprosthetic mitral valve, hypertension COMPARISON: None. DESCRIPTION: COMPLETE ECHOCARDIOGRAM Real-time transthoracic echocardiography with 2D, M-mode, spectral and color flow Doppler performed. QUALITY: Technical quality was good. LEFT VENTRICLE: Normal chamber size. Normal left ventricular wall thickness. Abnormal septal wall motion due to prior open heart surgery and paced rhythm. Systolic function appears at the lower limits of normal. LV EF: Low normal left ventricular ejection fraction, 50%. DIASTOLIC: ATRIAL SEPTUM: Visually appears intact. LEFT ATRIUM: Severe dilatation. RIGHT ATRIUM: Severe dilatation. RIGHT VENTRICLE: Moderate dilatation. Mildly decreased right ventricular systolic function. Pacer wire present. TRICUSPID VALVE: Normal mobility and thickness. No stenosis with mild to moderate regurgitation. Doppler studies reveal moderately (45-60) elevated right sided pressures. RVSP 59 mmHg MITRAL VALVE: Bioprosthetic mitral valve appears well seated with no significant regurgitation and normal Doppler flows. Mean gradient 5 mmHg. AORTIC VALVE: Normal trileaflet appearance. No visible sclerosis. Normal leaflet mobility. No evidence of aortic valve stenosis. No aortic regurgitation. AORTIC ROOT: Normal diameter and appearance. Ascending aorta is normal in size. PULMONIC VALVE: Normal thickness and mobility. No stenosis. Mild regurgitation. PERICARDIUM: No evidence of pericardial effusion. IVC: Collapses with inspirations. IVC is normal in size. PLEURA: CONCLUSION: 1. Left ventricular systolic function appears at the lower limits of normal. LVEF is 50%. 2. Moderately dilated right ventricle with mildly reduced systolic function. 3. Severe biatrial dilatation. 4. Bioprosthetic mitral valve with normal Doppler flow. 5. Mild to moderate tricuspid regurgitation. Mild pulmonary regurgitation. 6. Moderate to severe elevation of right-sided pressures. RVSP is 59 mmHg. Dictated by: Dylon Kate M.D. on 04/20/2022 at 17:00 Approved by: Dylon Kate M.D. on 04/20/2022 at 17:06 Normal [facility] XR clavicle RT*on 11-03-2021 XR clavicle RT* [facility] [employer] Other XR clavicle RT* [facility] [employer] Other XR clavicle RT* [address] [place] [address] [employer] Other XR clavicle RT* [place] [address] [facility] [employer] Other XR clavicle RT* XRay Report [employer] Other XR clavicle RT* Signed [employer] Other XR clavicle RT* Patient: Nelly Quiroz MR#: [id number] [place] [employer] Other XR clavicle RT* 0 [employer] Other XR clavicle RT* : 1935 Acct:[id number] [employer] Other XR clavicle RT* Age/Sex: 86 / M ADM Date: 11/03/21 [employer] Other XR clavicle RT* [place] [facility] [place]: Type : REG CLI [employer] Other XR clavicle RT* Attending Dr: Vinh Lawton DO [employer] Other XR clavicle RT* Ordering Provider: Vinh Lawton, [employer] Other XR clavicle RT* Date of Service: 11/03/21 [employer] Other XR clavicle RT* XR/XR clavicle RT*: Displaced fracture of lateral end of right clavicle, [employer] Other XR clavicle RT* subsequ [employer] Other XR clavicle RT* Copies to: Vinh Lawton, DO [employer] Other XR clavicle RT* 2 views RIGHT [place] [employer] Other XR clavicle RT* COMPARISON: 10/06/21 [employer] Other XR clavicle RT* HISTORY: Status post RIGHT clavicle fracture [employer] Other XR clavicle RT* There is redemonstration of the distal clavicle fracture. There is subtle callus formation [employer] Other XR clavicle RT* suggesting interval healing. Bony alignment is unchanged. [employer] Other XR clavicle RT* XR/XR clavicle RT* [employer] Other XR clavicle RT* IMPRESSION: Healing distal RIGHT clavicle fracture. Unchanged bony alignment. [employer] Other XR clavicle RT* Impression dictated by: Abdoul William M.D.11/03/2021 4:06 PM [employer] Other XR clavicle RT* Dictation Location: [facility]-- [employer] Other XR clavicle RT* Transcribed By: PWS 11/03/21 1606 [employer] Other XR clavicle RT* Dictated By: Abdoul William DO 11/03/21 1604 [employer] Other XR clavicle RT* Signed By: [employer] [facility] [employer] Other XR clavicle RT* 11/03/21 1607 [employer] Other Cardiovascular Lab Reporton 08-25-2021 Cardiovascular Lab Report [facility] Patient Name: Quiroz [facility] MR #: [id number] Physician: Filippo Little MD Department of Service Date: 08/25/2021 Medicine Birthdate: 1935 Division of Room #: [facility] Cardiology Adult Cardiovascular Services [place] [address] Cardiovascular Laboratory Report BIV-UPGRADE PROCEDURE NOTE DATE OF PROCEDURE: 08/25/2021 PERFORMING PHYSICIAN: Dr. Filippo Little CONSENT: Patient LOCATION: EP Lab PROCEDURE PERFORMED: 1. Implantation of Biventricular ICD (Biotronik) 2. Explanation of previously implanted pacemaker generator (St Azam/Walter) 3. Left axillary venogram 4. Coronary sinus venogram 5. Pocket revision INDICATIONS: 1. Ischemic cardiomyopathy with no reversible cause 2. Dilated cardiomyopathy 3. Chronic RV pacing (100%) 4. Chronic SHF NYHA Class III PROCEDURAL SEDATION: Versed and Fentanyl. Moderate sedation was administered by the sedation nurse under my supervision and noted in the CVL log. Intraprocedural face to face sedation time: 149min. Monitoring: Cardiac telemetry, Blood pressure, continuous pulse oxymetry. FLUROSCOPY: 22m 50sec/110mGray . INDICATION: 86-year-old gentleman with a history of a St[employer] 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 Given this, the decision was made to proceed to a Bi-V ICD upgrade. On presentation to the lab, the patient was initially noted to be in sinus with ventricular pacing. PROCEDURAL DETAILS: Patient was brought to the EP lab in the post absorptive state. A procedural pause was performed identifying the patient, the procedure to be performed and the site of implant. The left chest was prepped and draped in the usual sterile fashion. Preoperative antibiotics IV Vancomycin was administered. Patient was placed in trendelenberg position and ultrasound was used to assess patency. Once it was determined that the vein was patent, I decided to proceed with opening of the pocket. Local infiltration of 1% Lidocaine was performed, and an incision was created in the left upper chest. Dissection was then performed using cautery down to the capsule of the previously implanted device. Capsulotomy was performed and the leads were freed from the capsule enough for the device to be exteriorized. The lead was connected to the analyzer and lead parameters were verified. Left axillary venous access was obtained on 2 occasions using seldinger technique using a 5 [place] micropunture needle. There was difficulty guiding the wire due to scarring. So an amplatz wire was passed and a long sheath was advanced to the RA. Then I used another glide wire was advanced and used a 2:1 technique. Then an active fixation Biotronik ICD lead was then delivered through the 8Fsheath to the right ventricle. After confirmation of lead position on orthogonal views (MCBRIDE and PUERTO RICAN) to confirm position in the septal aspect, the screw was activated. After confirmation of good sensing parameters, injury pattern and pacing thresholds, 10V pacing was done and no diaphragmatic stimulation was noted. It was then secured in the pocket using two 0- Silk sutures. I then proceeded to perform the LV lead placement. A Leonor sheath was advanced into the RV over the wire. The dilator was then removed, and an inner cannula was utilized to cannulate the CS. The wire was advanced into the CS body and the CS os was noted to be quite low. The outer sheath and inner cannula were then advanced into the CS and the inner cannula was removed. A test puff revealed that the outer cannula was adjacent to a nice lateral branch. A Whisper wire was advanced with a Biotronik quadripolar lead and torqued into the lateral vein with ease with all 4 poles suitably in the LV in a mid LV location. Once the guiding sheaths were removed, the lead was secured in the pocket using three 0- Silk sutures. An active fixation Biotronik pacing lead was then delivered through the 6Fsheath to the right atrium. After confirmation of lead position on orthogonal views (MCBRIDE and PUERTO RICAN) to confirm position in the septal aspect, the screw was activated. After confirmation of good sensing parameters, injury pattern but pacing threshold was in the range of 2.5V. I decided to map other areas and noted the same in 2 other location. On repeat attempt, I found a location where the sensing was acceptable and pacing threshold was 1V. This was chosen. 10V pacing was done and no diaphragmatic stimulation was noted. It was then secured in the pocket using three 0- Silk sutures. The RA pacing lead, new RV ICD lead and LV lead were then attached to a Biotronik BLUE LINE TRIMMER-D device and the leads tug tested. Pocket hemostasis was achieved, and it was then copiously and vigorously irrigated with antiobiotic so (more content not included)... Normal [facility] Vital Signs Date Time Vital Sign Value Performing Clinician Facility 10-19-2023 10:00-0500 Body height 157.48 cm Steve Vargas Other [facility] Other 10-19-2023 10:00-0500 Body mass index (BMI) [Ratio] 31.09 kg/m2 Steve Vargas Other [facility] Other 10-19-2023 10:00-0500 Body weight 77.11 kg Steve Vargas Other [facility] Other 10-19-2023 10:00-0500 Diastolic blood pressure 80 mm[Hg] Steve Vargas Other [facility] Other 10-19-2023 10:00-0500 Respiratory rate 12 /min Steve Vagras Other [facility] Other 10-19-2023 10:00-0500 Systolic blood pressure 138 mm[Hg] Steve Ball Other [facility] Other 10-08-2023 09:27-0500 Body height 179.1 cm Elkin Pulido MD Work Phone: [facility] 10-08-2023 09:27-0500 Body mass index (BMI) [Ratio] 24.15 kg/m2 Elkin Pulido MD Work Phone: [facility] 10-08-2023 09:27-0500 Body weight 77.43 kg Elkin Pulido MD Work Phone: [facility] 07-05-2023 11:00-0400 Body height 157.48 cm Steve Ball Other [facility] Other 07-05-2023 11:00-0400 Body mass index (BMI) [Ratio] 30.5 kg/m2 Steve Ball Other [facility] Other 07-05-2023 11:00-0400 Body weight 75.66 kg Steve Ball Other [facility] Other 07-05-2023 11:00-0400 Diastolic blood pressure 68 mm[Hg] Steve Ball Other [facility] Other 07-05-2023 11:00-0400 Respiratory rate 12 /min Steve Ball Other [facility] Other 07-05-2023 11:00-0400 Systolic blood pressure 148 mm[Hg] Steve Ball Other [facility] Other 05-17-2023 08:48-0400 Blood Pressure Location Cristela LI [facility] 05-17-2023 08:48-0400 Diastolic blood pressure 69 mm[Hg] Cristela LI [facility] 05-17-2023 08:48-0400 Heart rate 65 /min Cristela LI [facility] 05-17-2023 08:48-0400 Respiratory rate 16 /min Cristela LI [facility] 05-17-2023 08:48-0400 Systolic blood pressure 106 mm[Hg] Cristela LI [facility] 04-30-2023 11:30-0400 Body height 157.48 cm Steve Ball Other [employer] [facility] [employer] Other 04-30-2023 11:30-0400 Body mass index (BMI) [Ratio] 31.16 kg/m2 Steve Ball Other [facility] Other 04-30-2023 11:30-0400 Body weight 77.29 kg Steve Ball Other [facility] Other 04-30-2023 11:30-0400 Diastolic blood pressure 66 mm[Hg] Steve Ball Other [facility] Other 04-30-2023 11:30-0400 Respiratory rate 12 /min Steve Ball Other [facility] Other 04-30-2023 11:30-0400 Systolic blood pressure 132 mm[Hg] Steve Ball Other [facility] Other 01-06-2023 11:30-0400 Body height 157.48 cm Steve Ball Other [facility] Other 01-06-2023 11:30-0400 Body mass index (BMI) [Ratio] 31.46 kg/m2 Steve Ball Other [facility] Other 01-06-2023 11:30-0400 Body weight 78.02 kg Steve Ball Other [facility] Other 01-06-2023 11:30-0400 Diastolic blood pressure 73 mm[Hg] Steve Ball Other [facility] Other 01-06-2023 11:30-0400 SaO2% (BldA) [Mass fraction] 96 % Steve Ball Other [facility] Other 01-06-2023 11:30-0400 Systolic blood pressure 130 mm[Hg] Steve Vargas Other [facility] Other 05-04-2022 12:33-0400 Blood Pressure Location Cristela C-sam [facility] 05-04-2022 12:33-0400 Diastolic blood pressure 69 mm[Hg] Cristela LI [facility] 05-04-2022 12:33-0400 Heart rate 68 /min Cristela LI [facility] 05-04-2022 12:33-0400 Respiratory rate 16 /min Cristela LI [facility] 05-04-2022 12:33-0400 Systolic blood pressure 134 mm[Hg] Cristela LI [facility] 11-03-2021 16:00-0500 Body height 157.48 cm Vinh Lawton Other [facility] Other 11-03-2021 16:00-0500 Body mass index (BMI) [Ratio] 25.79 kg/m2 Vinh Lawton Other [facility] Other 11-03-2021 16:00-0500 Body weight 63.96 kg Vinh Lawton Other [facility] Other Encounters Encounter Date Encounter Type Care Provider Facility Start: 05-22-2024 ambulatory Cristela Seo ty:LEEANNE Landis Start: 10-19-2023 End: 10-19-2023 ambulatory Steve Vargas Other [employer] Other Start: 10-19-2023 Encounter for other preprocedural examination Steve Vargas [facility] Start: 10-19-2023 Office outpatient vi sit 25 minutes Steve Vargas [facility] Start: 10-08-2023 ambulatory [facility] Start: 10-08-2023 End: 10-08-2023 ambulatory [facility] Start: 10-08-2023 End: 10-08-2023 Office outpatient new 45 minutes Elkin Pulido MD Work Phone: [facility] Comment on above: Malignant melanoma o f forehead (CMS/HCC) Start: 07-19-2023 End: 07-19-2023 ambulatory Michele Arteaga Facility:[facility] Start: 07-19-2023 End: 07-19-2023 ambulatory DO Steve Zandra Work Phone: [facility] Work Phone: Start: 07-19-2023 End: 07-19-2023 Patient encounter procedure DO Steve Zandra Work Phone: [facility] [address] Work Phone: Start: 07-13-2023 End: 07-13-2023 ambulatory Steve Vargas Other [employer] Other Start: 07-13-2023 Telephone encounter Steve [facility]argas [facility] Start: 07-05-2023 End: 07-05-2023 ambulatory Steve Vargas Other [employer] Other Start: 07-05-2023 Patient encounter procedure [facility] Start: 05-31-2023 End: 05-31-2023 ambulatory Steve Vargas Other [employer] Other Start: 05-31-2023 Nursing evaluation o f patient and report Steve Vargas [facility] Start: 05-17-2023 End: 05-18-2023 ambulatory Cristela LI Facility:[facility] Start: 05-17-2023 End: 05-17-2023 Patient encounter procedure Cristela LI [facility] Start: 04-30-2023 End: 04-30-2023 ambulatory Steve Vargas Other [employer] Other Start: 04-30-2023 Office outpatient vi sit 15 minutes Steve Vargas [facility] Start: 04-28-2023 End: 04-28-2023 ambulatory [facility] Start: 03-30-2023 End: 03-30-2023 ambulatory Jose R Cruz Facility:[facility] Start: 03-30-2023 End: 03-30-2023 ambulatory DO Steve Vargas Work Phone: [facility] Work Phone: Start: 03-30-2023 End: 03-30-2023 Departed Referred DO Steve Vargas Work Phone: [facility] [address] [place] Work Phone: Start: 03-23-2023 End: 03-23-2023 ambulatory Michele Arteaga Facility:[facility] Start: 03-23-2023 End: 03-23-2023 ambulatory DO Steve Zandra Work Phone: [facility] Work Phone: Start: 03-23-2023 End: 03-23-2023 Patient encounter procedure DO Steve Ball Work Phone: [facility] [address] Work Phone: Start: 02-01-2023 End: 03-03-2023 ambulatory SHAIKH Stephon DOMINGUEZSARAH Facility:[facility] Start: 01-22-2023 Office outpatient vi sit 15 minutes Steve Vargas [facility] Start: 01-22-2023 End: 01-22-[address] STEVE VARGAS [employer] Other Start: 01-21-2023 End: 01-21-2023 ambulatory Steve Vargas Other [employer] Other Start: 01-21-2023 Telephone encounter Steve DODGE [facility] Start: 01-06-2023 End: 01-06-2023 ambulatory Steve Vargas Other [employer] Other Start: 01-06-2023 Office outpatient vi sit 25 minutes Steve Vargas [facility] Start: 01-04-2023 End: 01-29-[address] STEVE VARGAS Facility:[facility] Start: 12-28-2022 End: 12-28-2022 ambulatory Steve Vargas Other [employer] Other Start: 12-28-2022 Telephone encounter Steve DODGE [facility] Start: 12-02-2022 End: 01-01-[address] STEVE VARGAS Facility:[facility] Start: 11-19-2022 End: 11-19-2022 ambulatory Michele Arteaga Facility:[facility] Start: 11-19-2022 End: 11-19-2022 ambulatory DO Steve Vargas Work Phone: [facility] Work Phone: Start: 11-19-2022 End: 11-19-2022 Patient encounter procedure DO Steve Vargas Work Phone: [facility] [address] Work Phone: Start: 11-11-2022 End: 11-11-2022 ambulatory [facility] Start: 11-05-2022 End: 11-06-2022 ambulatory [facility] [employer] Other Start: 11-05-2022 Telephone encounter Steve Vargas [facility] Start: 11-04-2022 End: 12-02-[address] STEVE VARGAS Facility:[facility] Start: 10-27-2022 End: 10-27-2022 ambulatory [facility] Start: 10-14-2022 ambulatory [facility] Start: 10-05-2022 End: 11-04-[address] STEVE VARGAS Facility:[facility] Start: 10-02-2022 Encounter for preprocedural cardiovascular examination [facility] Start: 09-29-2022 End: 09-30-2022 ambulatory FILIPPO KLEINO Facility:[facility] Start: 09-29-2022 End: 09-30-2022 Encounter for preprocedural cardiovascular examination [facility] Facility:[facility] Start: 09-29-2022 End: 09-29-2022 ambulatory [facility] Start: 09-03-2022 End: 10-04-[address] STEVE VARGAS Facility:[facility] Start: 08-05-2022 End: 08-06-[address] STEVE VARGAS Facility:[facility] Start: 2022 End: 09-02-[address] STEVE VARGAS Facility:[facility] Start: 07-20-2022 End: 07-20-2022 ambulatory DO Steve Vargas Work Phone: [facility] Work Phone: Start: 07-20-2022 End: 07-20-2022 Patient encounter procedure DO Steve Vargas Work Phone: [facility] [address] Start: 07-06-2022 End: 08-03-2022 ambulatory SHAIKH Stephon LUO Facility:[facility] Start: 06-04-2022 End: 07-04-2022 ambulatory SHAIKH Stephon SOTOD Facility:[facility] Start: 05-07-2022 End: 05-07-2022 ambulatory DEBBIE DOMINGOKELLY Facility:[facility] Start: 05-04-2022 End: 05-04-2022 Patient encounter procedure Cristela LI [facility] Start: 05-04-2022 End: 06-03-2022 ambulatory HANSENRICARDO DOMINGUEZSARAH Facility:[facility] Start: 04-20-2022 End: 04-21-2022 ambulatory FILIPPO NU Facility:[facility] Start: 04-16-2022 Adult health examination Cezar Vargas Other [facility] Other Start: 04-16-2022 End: 04-16-2022 ambulatory DEBBIE SCHRADER Facility:[facility] Start: 04-07-2022 End: 04-08-[address] CRISTELA LI . Facility:[facility] Start: 04-03-2022 End: 05-01-2022 ambulatory HANSENRICARDO DOMINGUEZALEKAaron Facility:[facility] Start: 11-03-2021 End: 11-03-2021 ambulatory Vinh Lawton Other [facility] Other Start: 11-03-2021 Postop follow up vis it related to original px Vinh Lawton [facility] Start: 10-10-2021 End: 10-10-2021 ambulatory Vinh Lawotn Other [employer] Other Start: 10-10-2021 FQHC visit new patient Vinh Lawton [facility] Start: 06-20-2021 End: 08-03-2021 ambulatory STEVE VARGAS Facility:[facility] Start: 04-07-2019 Notes/Results Only Other Other NOTE S/RESULTS Start: 04-07-2019 End: 04-07-2019 Patient encounter procedure Other Other [facility] Start: 03-15-2019 Notes/Results Only Other Other NOTE S/RESULTS Start: 03-15-2019 End: 03-15-2019 Patient encounter procedure Other Other [facility] Start: 03-02-2019 Notes/Results Only Other Other NOTE S/RESULTS Start: 03-02-2019 End: 03-02-2019 Patient encounter procedure Other Other [facility] Start: 02-24-2019 Notes/Results Only Other Other NOTE S/RESULTS Start: 02-24-2019 End: 02-24-2019 Patient encounter procedure Other Other [facility] Start: 02-08-2019 Notes/Results Only Other Other NOTE S/RESULTS Start: 02-08-2019 End: 02-08-2019 Patient encounter procedure Other Other [facility] Start: 12-16-2018 Notes/Results Only Other Other NOTE S/RESULTS Start: 12-16-2018 End: 12-16-2018 Patient encounter procedure Other Other [facility] Start: 09-29-2018 Notes/Results Only Other Other NOTE S/RESULTS Start: 09-29-2018 End: 09-29-2018 Patient encounter procedure Other Other [facility] Procedures Date Procedure Procedure Detail Performing Clinician Start: 04-07-[address] YEIMI LI . Comment on above: Performed By: #### P SAD #### [facility] [address] [address] [address] Robb Martin Start: 04-07-2019 Electrocardiogram Other Other Start: 04-07-2019 IMPLANT RECORD (OUTSIDE) Other Other Start: 03-15-2019 OUTSIDE PROCEDURES [facility] Other Start: 03-02-2019 Echocardiography Other Other Start: 02-24-2019 OUTSIDE PROCEDURES [facility] Other Start: 02-08-2019 Electrocardiogram Other Other Start: 12-16-2018 OUTSIDE PROCEDURES [facility] Other Start: 09-29-2018 ULTRASOUND (OUTSIDE) Ot her Other Start: 12-23-2015 Screening for malign ant neoplasm of colon Steve Vargas Other Start: 08-27-2014 Cystoscopy Cristela ZUNIGA Start: 05-04-2012 Implantation of card iac pacemaker Cristela LI Start: 10-09-2008 Brachytherapy Cristela CARO Start: 08-08-2008 Transrectal biopsy o f prostate using ultrasound guidance Cristela LI Start: 11-22-2007 Laser ablation of prostate Cristela LI Start: 10-25-2007 Cystoscopy Cristela GASTON LIZLoi Start: 10-25-2007 Urodynamic studies Mathew LI Start: 09-20-2007 Transrectal biopsy o f prostate using ultrasound guidance Cristela LI Coronary artery bypa ss grafts x 4 Cristela LI Extraction of cataract Rosendadelta LI Procedure on back Cristela HILLLoi Plan of Treatment Date Care Activity Detail Author Start: 10-28-2023 End: 10-28-2023 Admission to same day surgery center 10/28/2023 11:00 AM EST - 10/28/2023 2:35 PM [place] [address] [place] [id number] [place] [address] [facility] [place] [address] ( sln inj @ 7:00 am ) Excision Lesion Skin Head/Neck [97632 (CPT )] [facility] [place] Comment on above: ( sln inj @ 7:00 am ) Excision Lesion Skin Head/Neck [19474 (CPT )] Start: 10-28-2023 End: 10-28-2023 Ct guidance needle placement Biopsy Lymph Node Head/Neck Malignant melanoma of forehead (CMS/HCC) 10/28/2023 11:00 AM EST [facility] Start: 10-28-2023 End: 10-28-2023 Dermal autograft f/s/n/h/f/g/m/d gt 1st 100 Excision Full Thickness Skin Graft Torso Malignant melanoma of forehead (CMS/HCC) 10/28/2023 11:00 AM EST [facility] Start: 10-28-2023 End: 10-28-2023 Excision malignant lesion f/e/e/n/l >4.0 cm Excision Lesion Skin Head/Neck Malignant melanoma of forehead (CMS/HCC) 10/28/2023 11:00 AM EST [facility] Start: 10-28-2023 Subsequent hospital visit by physician 10/28/2023 9:30 AM EST Hospital [place] [place] [address] [place] [id number] [place] [address] [place] [facility] Department [place] [address] [facility] [place] Start: 10-28-2023 End: 10-28-2023 Patient encounter procedure 10/28/2023 7:00 AM EST Appointment [facility] [address] [place] [phone] [facility] Start: 10-08-2023 End: 10-08-2024 NM Lymphatic vessels Views W radionuclide intra lymphatic NM lymphoscintigram Imaging Routine Malignant melanoma of forehead (CMS/HCC) Expected: 10/08/2023, Expires: 10/08/2024 [facility] Work Phone: Comment on above: Expected: 10/08/2023 , Expires: 10/08/2024 Start: 10-08-2023 End: 10-08-2024 Request for Pre-Admission Testing Visit Request for Pre-Admission Testing Visit Procedures Routine Malignant melanoma of forehead (CMS/HCC) Expected: 10/08/2023 (Approximate), Expires: 10/08/2024 [facility] Service Area Work Phone: Comment on above: Expected: 10/08/2023 (Approximate), Expires: 10/08/2024 Start: 06-04-2023 Influenza vaccination Influenza Vacc ine (#1) [facility] Start: 09-30-2022 COVID-19 Vaccine (5 - Moderna series) COVID-19 Vaccine (5 - Moderna series) [facility] Start: 07-20-2022 [facility] Start: 10-04-2019 Pneumococcal Vaccine : 65+ Years (2 - PPSV23 or PCV20) Pneumococcal Vaccine: 65+ Years (2 - PPSV23 or PCV20) [facility] Start: 06-04-2019 Influenza vaccination INFLUENZA VACC INE (#1) [facility] Start: 2002 Pneumococcal vaccination PNEUMOCOCCAL VACCINE SERIES (1 of 2 - PCV13) [facility] Start: 1987 Colonoscopy COLON CANCER S CREENING DISCUSSION [facility] Start: 1987 Zoster vaccine hzv l cathryn for subcutaneous use ZOSTER (SHINGLES) VACCINE (1 of 2) [facility] Start: 1987 Zoster Vaccines (1 o f 2) Zoster Vaccines (1 of 2) [facility] Start: 1959 DTaP/Tdap/Td Vaccine s (1 - Tdap) DTaP/Tdap/Td Vaccines (1 - Tdap) [facility] Start: 1956 Third diphtheria, tetanus and acellular pertussis (DTaP) vaccination TDAP (ADULT) [facility] Start: 1955 Diabetes mellitus screening Diabetes Screening [facility] Start: 1955 Tetanus vaccination TETANUS [facility] Start: 02-01-1938 Examination of skin Derm Melanoma Sk in Check [facility] Start: 1937 Lipid panel Lipid Panel [facility] Start: 1937 Medicare Annual Wellness Visit Medicare Annual Wellness Visit (AWV) [facility] Vzemcqt-6-Epwewmghl dehydrogenase [Enzymatic activity/mass] in Red Blood Cells [facility] Work Phone: Measurement of total hemoglobin concentration [facility] Work Phone: Immunizations Immunization Date Immunization Notes Care Provider Reji siu 08-12-2023 Prevnar 20 Steve Vargas Other [employer] Other 07-05-2023 influenza, high dose seasonal, preservative-free Steve aVrgas Other [employer] Other 08-20-2022 influenza virus vaccine, split virus (incl. purified surface antigen) Steve Vargas Other [employer] Other 08-20-2022 influenza virus vaccine, unspecified formulation Elkin Pulido MD Work Phone: [facility] Work Phone: 07-22-2021 influenza virus vaccine, split virus (incl. purified surface antigen) Steve Vargas Other [employer] Other 12-09-2020 SARS-CoV-2 (COVID-19 ) mRNA-0295 vaccine Cristela LI [facility] 07-09-2020 influenza virus vaccine, split virus (incl. purified surface antigen) Steve Vargas Other [employer] Other 07-05-2019 influenza virus vaccine, split virus (incl. purified surface antigen) Steve Vargas Other [employer] Other 06-30-2018 influenza virus vaccine, split virus (incl. purified surface antigen) Steve Vargas Other [facility] Other 06-29-2017 influenza virus vaccine, split virus (incl. purified surface antigen) Steve Vargas Other [facility] Other 06-22-2016 influenza virus vaccine, split virus (incl. purified surface antigen) Steve Vargas Other [facility] Other 07-19-2015 pneumococcal conjuga te vaccine, 13 valent Steve Vargas Other [facility] Other 07-16-2015 influenza virus vaccine, split virus (incl. purified surface antigen) Steve Vargas Other [facility] Other 06-16-2013 tetanus and diphther ia toxoids, adsorbed, preservative free, for adult use (5 Lf of tetanus toxoid and 2 Lf of diphtheria toxoid) Steve Vargas Other [facility] Other 04-06-2011 tetanus and diphther ia toxoids, adsorbed, preservative free, for adult use (5 Lf of tetanus toxoid and 2 Lf of diphtheria toxoid) Steve Vargas Other [facility] Other 04-03-2009 pneumococcal polysaccharide vaccine, 23 valent Steve Vargas Other [facility] Other Payers Date Payer Category Payer Unknown [employer] P [id number] 2016-Present [address] [place] [address] [id number] 2002 Medicare MEDICARE MEDICAR E PART A AND B [id number] 2002-Present [address] [place] [address] [id number] 1959 Medicare [id number] 1959 Self-pay [id number] 1959 Unknown [id number] 1937 Unknown [id number] 2.16.840.1.659364.3.579.2.647 1937 Unknown [id number] 2.16.840.1.939314.3.579.2.593 1937 Unknown [id number] 2.16.840.1.993169.3.579.2.593 1937 Unknown [id number] 2.16.840.1.376094.3.579.2.593 1937 Unknown [id number] 2.16.840.1.886713.3.579.2.593 1937 Unknown [id number] 2.16.840.1.206523.3.579.2.593 1937 Unknown [id number] 2.16.840.1.104938.3.579.2.593 1937 Unknown [id number] 2.16.840.1.536687.3.579.2.593 1937 Unknown [id number] 2.16.840.1.917196.3.579.2.593 1937 Unknown [id number] 2.16.840.1.226353.3.579.2.593 1937 Unknown [id number] 2.16.840.1.355900.3.579.2.593 1937 Unknown [id number] 2.16.840.1.803976.3.579.2.593 1937 Unknown [id number] 2.16.840.1.669500.3.579.2.593 1937 Unknown [id number] 2.16.840.1.322429.3.579.2.593 1937 Unknown [id number] 2.16.840.1.356515.3.579.2.593 1937 Unknown [id number] 2.16.840.1.269953.3.579.2.593 1937 Unknown [id number] 2.16.840.1.378428.3.579.2.593 1937 Unknown [id number] 2.16.840.1.892449.3.579.2.593 1937 Unknown [id number] 2.16.840.1.888095.3.579.2.593 1937 Unknown [id number] 2.16.840.1.849671.3.579.2.727 1937 Unknown [id number] 2.16.840.1.756606.3.579.2.727 1937 Unknown [id number] 2.16.840.1.877380.3.579.2.124 3 1937 Unknown [id number] 2.16.840.1.212097.3.579.2.124 4 Unknown [id number] 2.16.840.1.958683.3.579.2.593 Unknown [id number] 2.16.840.1.193225.3.579.2.531 Unknown [id number] 2.16.840.1.105480.3.579.2.531 Unknown [id number] 2.16.840.1.134566.3.579.2.531 Unknown [id number] 2.16.840.1.624625.3.579.2.531 Social History Date Type Detail Facility Tobacco smoking status NHIS Unknown if ever smoked [facility] Start: 1935 Sex Assigned At Not on file O [facility] Start: 10-08-2023 Sex Assigned At N [facility] Other Start: 03-28-2020 End: 10-08-2023 Tobacco smoking status Never smoked tobacco (finding) [facility] [facility] Start: 1935 Sex Assigned At Male F [facility] Start: 10-08-2023 Tobacco use and exposure Smokeless tobacco non-user [facility] Work Phone: Start: 10-08-2023 History of Social function [facility] Work Phone: Start: 09-28-2023 End: 10-08-2023 Exposure to SARS-CoV-2 (event) Not sure [facility] Functional Status Date Assessment Result Facility 05-17-2023 Functional Status N/A [facility] 05-04-2022 Functional Status N/A [facility] Clinical Notes 10-10-2021 to 10-19-2023 Note Date & Type Note Facility 10-19-2023 Evaluation note Encounter Date Diagnosis Assessment Notes Oct, Preop exam for internal medicine (ICD-10 - Z01.818) Mr. Quiroz was seen and examined for his preoperative evaluation. I reviewed his medications and instructed him to hold his Warfarin starting 5 days prior to surgery. I also instructed him to hold his Furosemide the day of surgery. Oct, Ischemic cardiomyopathy (ICD-10 - I25.5) Stable w/o activity limiting symptoms. Oct, Paroxysmal atrial fibrillation (ICD-10 - I48.0) Stable, paced rhythm. Instructed to hold his Warfarin 5 days prior to surgery. Oct, Primary hypertension (ICD-10 - I10) Stable, instructed to continue medications w/o interruption. Oct, Chronic venous insufficiency (ICD-10 - I87.2) Stable, instructed to hold his Furosemide the day of surgery. Recommend elevation and compression stockings. Oct, Elevated cholesterol (ICD-10 - E78.00) Stable, continue medication w/o interruption. 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 This was first noticed about 2 months ago and started to change in appearance. He is accompanied by his daughter today who helps with the history. This was biopsied by Dr. Roque and he was referred for further management. He has not noticed any mass on his neck. He had Mohs performed on a another skin cancer on the left forearm. Past Medical History He has no past medical history on file. Patient Active Problem List Diagnosis Malignant melanoma of forehead (CMS/HCC) Hyperlipidemia, vitamin D deficiency, BPH, hypertension, coronary artery disease Surgical History He has a past surgical history that includes Cardiac defibrillator placement and pacemaker placement. Social History Patient lives alone, daughter lives in [place] Family History Denies family history of melanoma Allergies Latex and Penicillins Physical Exam: CONSTITUTIONAL: No acute distress VOICE: No hoarseness or other abnormality RESPIRATION: Breathing comfortably, no stridor CV: No clubbing/cyanosis/edema in hands EYES: EOM intact, sclera normal NEURO: Alert and oriented times 3, Cranial nerves II-XII grossly intact and symmetric bilaterally HEAD AND FACE: Biopsy site on right superior forehead noted. No surrounding nodularity. SALIVARY GLANDS: Parotid and submandibular glands normal bilaterally EARS: Normal external ears, external auditory canals, and TMs to otoscopy, normal hearing to whispered voice. NOSE: External nose midline, anterior rhinoscopy is normal with limited visualization to the anterior aspect of the interior turbinates, no bleeding or drainage, no lesions ORAL CAVITY/OROPHARYNX/LIPS: Normal mucous membranes, normal floor of mouth/tongue/OP, no masses orlesions PHARYNGEAL LOPEZ: No masses or lesions NECK/LYMPH: No palpable LAD, no thyroid masses, trachea midline SKIN: Neck skin is without scar or injury PSYCH: Alert and oriented with appropriate mood and affect Last Recorded Vitals Height 1.791 m (5' 10.5 ), weight 77.4 kg (170 lb 11.2 oz). Assessment and Plan 88 y.o. male with 1.8 mm depth melanoma of the right superior forehead. We discussed wide local excision, sentinel node biopsy, skin graft. We discussed how this procedure will help impact staging and treatment recommendations. All questions were answered and we will work on coordinating in the near future Elkin Pulido MD [facility] Work Phone: [phone]) 493-213810-02-2023 Evaluation note* Encounter Date Diagnosis Assessment Notes Treatment Notes Treatment Clinical Notes Jul, Medicare annual wellness visit, subsequent (ICD-10 - Z00.00) Personalized health advice was given to the beneficiary including a written plan for screenings discussed and provided. Advanced care planning reviewed and/or information given as requested. Additional counseling was provided here today in regards to, [ ]. The above visit was performed by [ ], under direct supervision of [ ]. Document reviewed and amended by provider signed below. Jul, Ischemic cardiomyopathy (ICD-10 - I25.5) This patient is stable without activity related CP, dyspnea or lightheadedness. They are instructed to continue exercise and AHA diet plan. Continue secondary prevention measures. Jul, Paroxysmal atrial fibrillation (ICD-10 - I48.0) This patient is in NSR or rate controlled. This patient is anticoagulated to prevent thromboembolic events. 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 No bleeding complications Jul, Primary hypertension (ICD-10 - I10) Jul, Chronic venous insufficiency (ICD-10 - I87.2) Avoid salt and elevate lower extremities, support stockings, inspect legs and feet daily for blisters and ulcerations. Jul, Elevated cholesterol (ICD-10 - E78.00) Instructed on diet and exercise with continued statin therapy.Discussed the beneficial effects of lowering cholesterol in reducing the risk for cerebrovascular and cardiovascular disease. 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 Jul, High risk medication use (ICD-10 - Z79.899) Check labs: CBC, ALT [employer] Other 08-28-2023 Evaluation note* Encounter Date Diagnosis Assessment Notes Treatment Notes Treatment Clinical Notes May, Seasonal allergic rhinitis due to pollen (ICD-10 - J30.1) [employer] Other 08-14-2023 Hospital Discharge instructions Patient Education 05/17/2023 09:42:26 Prostate Cancer Prostate Cancer The prostate is a small gland that produces fluid that makes up semen (seminal fluid). It is located below the bladder in men, in front of the rectum. Prostate cancer is the abnormal growth of cells in the prostate gland. What are the causes? The exact cause of this condition is not known. What increases the risk? You are more likely to develop this condition if: You are 65 years of age or older. You have a family history of prostate cancer. You have a family history of breast and ovarian cancer. You have genes that are passed from parent to child (inherited), such as BRCA1 and BRCA2. You have Dasilva syndrome. men and men of descent are diagnosed with prostate cancer at higher rates than other men. The reasons for this are not well understood and are likely due to a combination of genetic and environmental factors. What are the signs or symptoms? Symptoms of this condition include: Problems with urination. This may include: ?A weak or interrupted flow of urine. ?Trouble starting or stopping urination. ?Trouble emptying the bladder all the way. ?The need to urinate more often, especially at night. Blood in urine or semen. Persistent pain or discomfort in the lower back, lower abdomen, or hips. Trouble getting an erection. Weakness or numbness in the legs or feet. How is this diagnosed? This condition can be diagnosed with: A digital rectal exam. For this exam, a health care provider inserts a gloved finger into the rectum to feel the prostate gland. A blood test called a prostate-specific antigen (PSA) test. A procedure in which a sample of tissue is taken from the prostate and checked under a microscope (prostate biopsy). An imaging test called transrectal ultrasonography. Once the condition is diagnosed, tests will be done to determine how far the cancer has spread. This is called staging the cancer. Staging may involve imaging tests, such as a bone scan, CT scan, PETscan, or MRI. Stages of prostate cancer The stages of prostate cancer are as follows: Stage 1 (I). At this stage, the cancer is found in the prostate only. The cancer is not visible on imaging tests, and it is usually found by accident, such as during prostate surgery. Stage 2 (II). At this stage, the cancer is more advanced than it is in stage 1, but the cancer has not spread outside the prostate. Stage 3 (III). At this stage, the cancer has spread beyond the outer layer of the prostate to nearby tissues. The cancer may be found in the seminal vesicles, which are near the bladder and the prostate. Stage 4 (IV). At this stage, the cancer has spread to other parts of the body, such as the lymph nodes, bones, bladder, rectum, liver, or lungs. Prostate cancer grading Prostate cancer is also graded according to how the cancer cells look under a microscope. This is called the Ringle score and the total score can range from 6 10, indicating how likely it is that the cancer will spread (metastasize) to other parts of the body. The higher the score, the greater thelikelihood that the cancer will spread. Aleksey 6 or lower: This indicates that the cancer cells look similar to normal prostate cells (well differentiated). Aleksey 7: This indicates that the cancer cells look somewhat similar to normal prostate cells (moderately differentiated). Aleksey 8, 9, or 10: This indicates that the cancer cells look very different than normal prostate cells (poorly differentiated). How is this treated? Treatment for this condition depends on several factors, including the stage of the cancer, your age, personal preferences, and your overall health. Talk with your health care provider about treatment options that are recommended for you. Common treatments include: Observation for early stage prostate cancer (active surveillance). This involves having exams, blood tests, and in some cases, more biopsies. For some men, this is the only treatment needed. Surgery. Types of surgeries include: ?Open surgery (radical prostatectomy). In this surgery, a larger incision is made to remove the prostate. ?A laparoscopic radical prostatectomy. This is a surgery to remove the prostate and lymph nodes through several small incisions. It is often referred to as a minimally invasive surgery. ?A robotic radical prostatectomy. This is laparoscopic surgery to remove the prostate and lymph nodes with the help of robotic arms that are controlled by the surgeon. ?Cryoablation. This is surgery to freeze and destroy cancer cells. Radiation treatment. Types of radiation treatment include: ?External beam radiation. This type aims beams of radiation from outside the body at the prostate to destroy cancerous cells. ?Brachytherapy. This type uses radioactive needles, seeds, wires, or tubes that are implanted into the prostate gland. Like external beam radiation, brachytherapy destroys cancerous cells. An advantage is that this type of radiation limits the damage to surrounding tissue and has fewer side effects. Chemotherapy. This treatment kills cancer cells or stops them from multiplying. It kills both cancer cells and normal cells. Targeted therapy. This treatment uses medicines to kill cancer cells without damaging normal cells. Hormone treatment. This treatment involves taking medicines that act on testosterone, one of the male hormones, by: ?Stopping your body from producing testosterone. ?Blocking testosterone from reaching cancer cells. Follow these instructions at home: Lifestyle Do not use any products that contain nicotine or tobacco. These products include cigarettes, chewing tobacco, and vaping devices, such as e-cigarettes. If you need help quitting, ask your health careprovider. Eat a healthy diet. To do this: ?Eat foods that are high in fiber. These include beans, whole grains, and fresh fruits and vegetables. ?Limit foods that are high in fat and sugar. These include fried or sweet foods. Treatment for prostate cancer may affect sexual function. If you have a partner, continue to have intimate moments. This may include touching, holding, hugging, and caressing your partner. Get plenty of sleep. Consider joining a support group for men who have prostate cancer. Meeting with a support group mayhelp you learn to manage the stress of having cancer. General instructions Take bhen-fkc-haybbst and prescription medicines only as told by your health care provider. If you have to go to the hospital, notify your cancer specialist (oncologist). Keep all follow-up visits. This is important. Where to find more information [place] [employer]: www.cancer.org [place] [employer]: www.cancer.net National Cancer [place]: www.cancer.gov Contact a health care provider if: You have new or increasing trouble urinating. You have new or increasing blood in your urine. You have new or increasing pain in your hips, back, or chest. Get help right away if: You have weakness or numbness in your legs. You cannot control urination or your bowel movements (incontinence). You have chills or a fever. Summary The prostate is a small gland that is involved in the production of semen. It is located below a man's bladder, in front of the rectum. Prostate cancer is the abnormal growth of cells in the prostate gland. Treatment for this condition depends on the stage of the cancer, your age, personal preferences, and your overall health. Talk with your health care provider about treatment options that are recommended for you. Consider joining a support group for men who have prostate cancer. Meeting with a support group mayhelp you learn to manage the stress of having cancer. This information is not intended to replace advice given to you by your health care provider. Make sure you discuss any questions you have with your health care provider. Document Revised: 12/17/2021 Document Reviewed: 12/17/2021 [employer] Patient Education 2022 [employer]. 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 Restart wearing support stockings during the daytime [employer] Other 07-26-2023 NotePatient here for 6 mo follow up and device check. Denies chest pain, SOB, palpitations, syncope, and bleeding on warfarin. Review of Systems Hematologic/Lymphatic: Bruises/bleeds easily. Musculoskeletal: Positive for arthritis and joint pain. All other systems reviewed and are negative.[facility] 04-28-2023 NoteUT Cardiology Consult Note Reason for visit: CMP/ Afib wit RVR, aborted AVN ablation 11/2022 HPI: patient for 4-month follow-up s/p aborted AVN ablation AV node ablation was aborted as patient's had minimal RVR discussed with patient we will just continue to monitor device check and if RVR persists then we will proceed with AVN ablation denies chest pain, shortness of breath, ELIZABETH, orthopnea, LE edema 09/[address] 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 However since Jul 2022, he has obserced faster HR. Today in Exam he was noted to be tachycardia. Last Device check performed on 04/20/2022 reveals a Biotronik device with 62% in the atrium and 100% BiV pacing. There has been a total of 13 A. fib episodes. LV threshold was 1.7 V at compared to the last one at 1.4V. A. fib episodes have been less than a minute in duration for the most part. He has been on Coumadin for anticoagulation wth no bleeding issues. EK09/29/22 Afib with RVR Echocardiogram performed on 04/20/2022 shows normalization of EF to 50% with a dilated left atrium and a dilated right atrium the right ventricular systolic pressure was 59 mmHg with a bioprosthetic mitral valve with a mean gradient of 5mmHg Prior HPI 85-year-old gentleman with a history of dual-chamber pacemaker implanted on 10/28/[address] Skye Horn for tachybradycardia syndrome with atrial fibrillation that resulted in syncope. He had undergone PVI=CTI by Dr Ziegler on 02/24/2018. He has been known to have reasonably good LV function but the last evaluation in March 2021 revealed a deterioration of that to 30%. Previously he was noted to have 40% EF in 06/09/2019 and on 08/10/2019 it was 50% and 03/05/2028 was 50%. He is currently NYHA class III. Denies chest pain, reports typical shortness of breath with exertion, denies orthopnea, palpitations. Reports occasional lightheadedness and dizziness but denies any syncope, one-sided weakness, vision changes, speech difficulties. Device interrogation done on May 19, 2021 reveals [employer] dual-chamber pacemaker that was implanted on October 28, 2029 the device thresholds are good and the patient is ventricularly paced 100% of the time. He has got very limited AF burden although there has been some counts of atrial EGM being in the high rate as noted on May 15, 2021 at 10 AM. EKG 01/10/21 AV sequentail pacing Cath 03/09/19 1. Mildly elevated right and left ventricular filling pressure. 2. Moderate pulmonary artery hypertension. 3. Reduced cardiac output and cardiac index. 4. There is no significant step-up in oxygen saturation in the right heartchambers. 5. Successful percutaneous intervention of mid LAD, reduction of 90%stenosis to 0 using a 3.0 x 16 Synergy stent. 6. Atretic OLGUIN to the LAD. 7. 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 8. No evidence of fistulous communication with pulmonary artery. PMH: Past Medical History: Diagnosis Date Atrial fibrillation (CMS/HCC) Coronary artery disease Hyperlipidemia Hypertension Pacemaker Prostate cancer (CMS/HCC) Valvular heart disease PSH: Past Surgical History: Procedure Laterality Date CARDIOVERSION 06/28/2018 CARDIOVERSION 06/11/2017 CARDIOVERSION 05/19/2011 CORONARY ARTERY BYPASS GRAFT INSERT / REPLACE / REMOVE PACEMAKER SH: Social Determinants of Health Tobacco Use: Medium Risk (11/16/2022) Patient History Smoking Tobacco Use: Former Smokeless Tobacco Use: Never Passive Exposure: Past Alcohol Use: Not on file Financial Resource Strain: Not on file Food Insecurity: Not on file Transportation Needs: Not on file Physical Activity: Not on file Stress: Not on file Social Connections: Not on file Intimate Partner Violence: Not on file Depression: Not on file Housing Stability: Not on file Allergies: Allergies Allergen Reactions Latex Hives Penicillins Other Spironolactone Dizziness Weight: No results found for: PTWEIGHT Meds: Current Outpatient Medications on File Prior to Visit Medication Sig Dispense Refill alfuzosin (Uroxatral) 10 mg 24 hr tablet Take 1 tablet by mouth in the morning. atorvastatin (Lipitor) 40 mg tablet Take 1 tablet (40 mg) by mouth in the morning. 90 tablet 3 cholecalciferol (D3-5) 5,000 Units tablet Take 1 tablet every other day by oral route. ferrous sulfate 325 (65 Fe) MG tablet Take 65 mg by mouth with breakfast. finasteride (Proscar) 5 mg tablet Take 1 tablet by mouth in the morning. furosemide (Lasix) 20 mg tablet Take 1 tablet (20 mg) by mouth in the evening. 90 tablet 3 hydroxychloroquine (Plaquenil) 200 mg tablet TAKE 1 TABLET BY MOUTH ONCE DAILY ALTERNATING WITH 1 TABLET TWICE DAILY WITH FOOD. CONFIRM (more content not included)...[facility]04-21-2023 Evaluation note* Encounter Date Diagnosis Assessment Notes Treatment Notes Treatment Clinical Notes Jan, Acute bronchitis due to other specified organisms (ICD-10 - J20.8) Instructed to use Robitussin or Mucinex for cough, saline or Flonase NS for congestion, Tylenol for pain and fever. 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 They are instructed to continue exercise and AHA diet plan. Avoid decongestants [employer] Other 04-05-2023 Evaluation note* Encounter Date Diagnosis Assessment Notes Treatment Notes Treatment Clinical Notes Jan, Ischemic cardiomyopathy (ICD-10 - I25.5) Continue GDMT Daily weights, increase Lasix for unexplained weight gain Daily HR, increase Metoprolol for HR>100 Jan, Paroxysmal atrial fibrillation (ICD-10 - I48.0) Stable, ablation cancelled. This patient is in NSR or rate controlled. This patient is anticoagulated to prevent thromboembolic events. 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 Jan, Chronic venous insufficiency (ICD-10 - I87.2) Avoid salt and elevate lower extremities, support stockings, inspect legs and feet daily for blisters and ulcerations. Jan, Elevated cholesterol (ICD-10 - E78.00) Diet and exercise with continued statin therapy. 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 Jan, Hx of malignant neoplasm of prostate (ICD-10 - Z85.46) Brachytherapy Jan, History of cardiac pacemaker in situ (ICD-10 - Z95.0) [employer] Other 02-08-2023 NotePatient: Nelly Quiroz Procedure Information Date/Time: 11/11/22 1330 Procedure: AV node ablation Location: [facility] 1 EP / [facility] (Cath) Providers: Filippo Little MD Clinical information reviewed: [employer] Physical Exam Airway Mallampati: IV TM distance: <3 FB Neck ROM: full Cardiovascular Rhythm: regular Rate: normal Dental Pulmonary - normal exam Abdominal - normal exam Anesthesia Plan ASA 3 (Conscious sedation) Anesthetic plan and risks discussed with patient. Use of blood products discussed with patient who consented to blood products. 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 However since Jul 2022, he has obserced faster HR. Today in Exam he was noted to be tachycardia. Last Device check performed on 04/20/2022 reveals a Biotronik device with 62% in the atrium and 100% BiV pacing. There has been a total of 13 A. fib episodes. LV threshold was 1.7 V at compared to the last one at 1.4V. A. fib episodes have been less than a minute in duration for the most part. He has been on Coumadin for anticoagulation wth no bleeding issues. EK09/29/22 Afib with RVR Echocardiogram performed on 04/20/2022 shows normalization of EF to 50% with a dilated left atrium and a dilated right atrium the right ventricular systolic pressure was 59 mmHg with a bioprosthetic mitral valve with a mean gradient of 5mmHg Prior HPI 85-year-old gentleman with a history of dual-chamber pacemaker implanted on 10/28/[address] Skye Horn for tachybradycardia syndrome with atrial fibrillation that resulted in syncope. He had undergone PVI=CTI by Dr Ziegler on 02/24/2018. He has been known to have reasonably good LV function but the last evaluation in March 2021 revealed a deterioration of that to 30%. Previously he was noted to have 40% EF in 06/09/2019 and on 08/10/2019 it was 50% and 03/05/2028 was 50%. He is currently NYHA class III. Denies chest pain, reports typical shortness of breath with exertion, denies orthopnea, palpitations. Reports occasional lightheadedness and dizziness but denies any syncope, one-sided weakness, vision changes, speech difficulties. Device interrogation done on May 19, 2021 reveals [employer] dual-chamber pacemaker that was implanted on October 28, 2029 the device thresholds are good and the patient is ventricularly paced 100% of the time. He has got very limited AF burden although there has been some counts of atrial EGM being in the high rate as noted on May 15, 2021 at 10 AM. EKG 01/10/21 AV sequentail pacing Cath 03/09/19 1. Mildly elevated right and left ventricular filling pressure. 2. Moderate pulmonary artery hypertension. 3. Reduced cardiac output and cardiac index. 4. There is no significant step-up in oxygen saturation in the right heartchambers. 5. Successful percutaneous intervention of mid LAD, reduction of 90%stenosis to 0 using a 3.0 x 16 Synergy stent. 6. Atretic OLGUIN to the LAD. 7. 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 8. No evidence of fistulous communication with pulmonary artery. PMH: Past Medical History: Diagnosis Date Atrial fibrillation (CMS/HCC) Coronary artery disease Hyperlipidemia Hypertension Pacemaker Prostate cancer (CMS/HCC) Valvular heart disease PSH: Past Surgical History: Procedure Laterality Date CARDIOVERSION 06/28/2018 CARDIOVERSION 06/11/2017 CARDIOVERSION 05/19/2011 CORONARY ARTERY BYPASS GRAFT INSERT / REPLACE / REMOVE PACEMAKER SH: Social Determinants of Health Tobacco Use: Medium Risk Smoking Tobacco Use: Former Smokeless Tobacco Use: Never Passive Exposure: Past Alcohol Use: Not on file Financial Resource Strain: Not on file Food Insecurity: Not on file Transportation Needs: Not on file Physical Activity: Not on file Stress: Not on file Social Connections: Not on file Intimate Partner Violence: Not on file Depression: Not on file Housing Stability: Not on file Allergies: Allergies Allergen Reactions Latex Hives Penicillins Other Spironolactone Dizziness Weight: No results found for: PTWEIGHT Meds: Current Outpatient Medications on File Prior to Visit Medication Sig Dispense Refill alendronate (Fosamax) 70 mg tablet alfuzosin (Uroxatral) 10 mg 24 hr tablet Take 1 tablet by mouth in the morning. atorvastatin (Lipitor) 40 mg tablet Take 1 tablet (40 mg) by mouth in the morning. 90 tablet 3 cholecalciferol (D3-5) 5,000 Units tablet Take 1 tablet every other day by oral route. finasteride (Proscar) 5 mg tablet Take 1 tablet by mouth in the morning. furosemide (Lasix) 20 mg tablet Take 1 tablet (20 mg) by mouth in the evening. 90 tablet 3 hydroCHLOROthiazide (Microzide) 12.5 mg capsule hydrochlorothiazide 12.5 mg capsule hydroxychloroquine (Plaquenil) 200 mg tablet TAKE 1 TABLET BY MOUTH ONCE DAILY ALTERNATING WITH 1 TABLET TWICE DAILY WITH FOOD. CONFIRM WITH EYE DOCTOR ON YEARLY EYE EXAM FOR MEDICATION TOXICITY. ketorolac (Acular) 0.5 % ophthalmic solution INSTILL 1 DROP INTO AFFECTED EYE(S) TWICE DAILY leflunomide (Arava) 20 mg tablet Take 1 tablet by mouth in the morning. losartan (Cozaar) 50 mg tablet Take 1 tablet by mouth in the morning. metoprolol succinate XL (Toprol-XL) 25 mg 24 hr tablet Take 1 tablet by mouth in the morning. metoprolol succinate XL (Topro (more content not included)...[facility]12-27-2022 NoteReview of Systems Cardiovascular: Positive for leg swelling and near-syncope. Negative for chest pain, claudication, cyanosis, dyspnea on exertion, irregular heartbeat, orthopnea, palpitations, paroxysmal nocturnal dyspnea and syncope. High pulse since end of July, swelling Left lower leg, dizziness,[facility]2022 NoteHISTORY AND PHYSICAL EXAMINATION Date:04/15/2022 HISTORY: Patient is an 86-year-old white male with complaints of declining vision out of his left eye. He states that he is having difficulty seeing the television clearly. Glare occurs at night time while driving, so rarely drives at night at this time. He also states having difficulty reading. This is all ongoing for approximately 1-2 years, progressively worsening over that timeframe. PAST OCULAR HISTORY: 1. Cataracts. 2. History of floaters. 3. A blood vessel burst in the requiring a laser procedure for the ruptured blood vessel. PAST MEDICAL HISTORY: 1. COVID positive in 2020 requiring hospitalization. 2. History of pacemaker and defibrillator. 3. Prostatectomy. 4. Back surgery. 5. Bypass surgery. 6. Stents placed for cardiac purposes. 7. Prostate cancer. 8. Coronary artery disease. 9. Heart block and heart arrhythmia. 10. Hypertension. 11. Hypercholesterolemia. 12. Iron deficiency anemia. 13. 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 SOCIAL HISTORY: Denies tobacco, alcohol, recreational drug abuse. SYSTEMIC MEDICATIONS: Include metoprolol, losartan, leflunomide, warfarin, hydroxychloroquine, spironolactone, furosemide, finasteride, atorvastatin and alfuzosin. ALLERGIES: To penicillin and latex. REVIEW OF SYSTEMS: No pertinent positives. PHYSICAL EXAM: VITALS: Blood pressure measured at 150/79 with a respiratory rate of 12 and pulse of 64. GENERAL: In general, he is awake, alert and oriented x3, well developed, well nourished, in no acute distress. HEART: Regular rate and rhythm. LUNGS: Clear bilaterally. ABDOMEN: Soft, non-tender, non-distended. EXTREMITIES: No pitting edema. OPHTHALMIC EXAM: Revealed a visual acuity of 20/60 in the right eye that glared to 20/400 and count fingers at 8 feet on the left. Pupils motility, muscle balance, confrontational visual anaya within normal limits bilaterally. Pressures measured at 16 bilaterally. Slit lamp exam revealed blepharitis with a severe decrease in tear film bilaterally. Conjunctiva, cornea, anterior chamber and iris were within normal limits bilaterally. Lens status demonstrated a 2+ nuclear sclerosis with 2+ cortical changes and vacuoles that were central in nature bilaterally. FUNDUS EXAM: Revealed good views with good dilation bilaterally. Optic discs, vessels, periphery and vitreous were within normal limits bilaterally. 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 ASSESSMENT / PLAN: 1. Visually significant cataract, left eye. After risks, benefits, alternatives, as well as expectations were delivered to the patient, he elected to go forward with cataract removal. He understands the risks include but not limited to infection, bleeding, loss of vision, loss of the eye itself. Secondly, he understands postoperatively he is likely to require spectacle correction for his best visual acuity. Finally, a complete ophthalmic exam was performed, there is not determined to be any other source of visual decline other than that of the cataract. However, there was a macular scar that could preclude him from seeing optimally post cataract removal process. 2. COVID-19, the patient was briefed in the office and consented for elective cataract surgery in the setting of the pandemic of coronavirus. He understands that he is at heightened risk going into a hospital setting; however, feels that his activities of daily living are depleted severe enough by his cataracts that he is willing to incur this risk and go forward with his elective procedure.[id number] NoteOPERATIVE NOTE OPERATION DATE: 04/16/2022 SURGEON: Debbie Schrader D.O. PREOPERATIVE DIAGNOSIS: Nuclear sclerotic cataract left eye POSTOPERATIVE DIAGNOSIS: Nuclear sclerotic cataract left eye. PROCEDURE NAME: Cataract extraction with intraocular lens placement of the left eye. ANESTHESIA: Topical ESTIMATED BLOOD LOSS: Zero. COMPLICATIONS: None. PROCEDURE: The patient was brought to the Operating Room in supine position. After proper identification, the left eye was prepped and draped in a sterile ophthalmic fashion. A paracentesis was created at the 5 o'clock position. Approximately 1 mL of unpreserved Xylocaine was injected into the anterior chamber followed by Amvisc Plus. Using a 2.6 mm Keratome blade, a clear corneal incision was created at the 2 o'clock limbus. A cystotome was then used to begin a curvilinear capsulorrhexis that was continued for 360 degrees with the Utrata forceps. BSS on a 26 gauge cannula was injected beneath the anterior capsule to hydrodissect as well as hydrodelineate the lens. After ensuring mobility, phacoemulsification was performed in a [id number]-type fashion. After all nuclear material had been removed from the eye, IA was introduced and all residual cortical material was cleaned up. Additional Amvisc Plus was injected into the posterior bag and a lens model MX60, 20.5 diopters was injected and dialed into position. After ensuring centration, IA was introduced into the anterior chamber and all residual Amvisc Plus was removed from the eye. BSS on a 30 gauge cannula was then injected into the stroma of both the clear corneal incision as well as paracentesis to hydrate the wounds. Additional BSS was injected into the anterior chamber to pressurize the eye at approximately 20 to 22 mmHg by finger tension. 0.1 mL of antibiotic was injected into the anterior chamber, maintaining the pressure as above. Weck-April sponges were used to check the wounds to be watertight. One drop of apraclonidine and one drop of prednisolone acetate were placed into the eye and a shield was placed over top. The patient was sent to the postoperative area in satisfactory condition to follow up the following day for postoperative care.[facility] 05-07-2022 NoteOPERATIVE NOTE OPERATION DATE: 05/07/2022 SURGEON: Debbie Schrader M.D. PREOPERATIVE DIAGNOSIS: Nuclear sclerotic cataract right eye. POSTOPERATIVE DIAGNOSIS: Nuclear sclerotic cataract right eye. PROCEDURE NAME: Cataract extraction with intraocular lens placement for the right eye. ANESTHESIA: Topical. ESTIMATED BLOOD LOSS: Zero. COMPLICATIONS: None. PROCEDURE: The patient was brought to the Operating Room in supine position. After proper identification, the right eye was prepped and draped in a sterile ophthalmic fashion. A paracentesis created at the 11 o'clock position. Approximately 1 mL of unpreserved Xylocaine was injected into the anterior chamber followed by Amvisc Plus. Using a 2.6 mm Keratome blade, a clear corneal incision was created at the 9 o'clock limbus. A cystotome was then used to begin a curvilinear capsulorrhexis that was continued for 360 degrees with the Utrata forceps. BSS on a 26 gauge cannula was injected beneath the anterior capsule to hydrodissect as well as hydrodelineate the lens. After ensuring mobility, phacoemulsification was performed in a glwzahu-aac-pmrqig-type fashion. After all nuclear material had been removed from the eye, IA was introduced and all residual cortical material was cleaned up. Additional Amvisc Plus was injected into the posterior bag and a lens model MX60, 21.5 diopters was injected and dialed into position. After ensuring centration, IA was reintroduced into the anterior chamber and all residual Amvisc Plus removed from the eye. BSS on a 30 gauge cannula was injected into the stroma of both the clear corneal incision as well as paracentesis to hydrate the wounds. Additional BSS was injected into the anterior chamber to pressurize the eye at approximately 20 to 22 mmHg by finger tension. 0.1 mL of antibiotic was injected into the anterior chamber. Weck-April sponges were used to check the wounds to be watertight. One drop of apraclonidine and one drop of prednisolone acetate were placed into the eye and a shield was placed over top. The patient was sent to the postoperative area in satisfactory condition to follow up the following day for postoperative care.[facility] [id number] NoteHISTORY AND PHYSICAL EXAMINATION Date:05/06/2022 HISTORY: Patient is an 86-year-old white male who complains of declining vision out of his right eye. He believes that approximately one year ago a progressive, steady decline in vision occurred in that right side. He states he is having more difficulty seeing the television and reading. He also is having difficulty reading his computer screen. Finally, he states at night time he is having trouble because of glare from headaches. PAST OCULAR HISTORY / PAST MEDICAL HISTORY / SOCIAL HISTORY / MEDICATIONS / ALLERGIES TO MEDICATIONS / REVIEW OF SYSTEMS and PHYSICAL EXAMINATION: Unchanged from previously dictated. ASSESSMENT/PLAN: 1. Visually significant cataract, right eye. After the risks, benefits, alternatives as well as expectations were delivered to the patient, he elected to go forward with cataract removal. He understands those risks to include but not limited to infection, bleeding, loss of vision or loss of the eye itself. Secondly, he understands that postoperatively he is likely to require spectacle correction for his best visual acuity. Finally, a complete ophthalmic exam was performed and there was not determined to be any other source of vision decline other than that of cataract. 2. [id number] patient was briefed in the office and consented for elective cataract surgery in the setting of the pandemic of coronavirus. He understands that he is at a heightened risk of going into a hospital setting, however, feels that his activities of daily living are severely enough depleted by his cataracts that he is willing to incur this risk and go forward with this elective procedure.[facility] [id number] Hospital Discharge instructions Patient Education 05/04/2022 13:26:39 Benign Prostatic Hyperplasia Benign Prostatic Hyperplasia Benign prostatic hyperplasia (BPH) is an enlarged prostate gland that is caused by the normal agingprocess and not by cancer. The prostate is a walnut-sized gland that is involved in the production of semen. It is located in front of the rectum and below the bladder. The bladder stores urine and the urethra is the tube that carries the urine out of the body. The prostate may get bigger as a man gets older. An enlarged prostate can press on the urethra. This can make it harder to pass urine. The build-up of urine in the bladder can cause infection. Back pressure and infection may progress to bladder damage and kidney (renal) failure. What are the causes? This condition is part of a normal aging process. However, not all men develop problems from this condition. If the prostate enlarges away from the urethra, urine flow will not be blocked. If it enlarges toward the urethra and compresses it, there will be problems passing urine. What increases the risk? This condition is more likely to develop in men over the age of 50 years. What are the signs or symptoms? Symptoms of this condition include: Getting up often during the night to urinate. Needing to urinate frequently during the day. Difficulty starting urine flow. Decrease in size and strength of your urine stream. Leaking (dribbling) after urinating. Inability to pass urine. This needs immediate treatment. Inability to completely empty your bladder. Pain when you pass urine. This is more common if there is also an infection. Urinary tract infection (UTI). How is this diagnosed? This condition is diagnosed based on your medical history, a physical exam, and your symptoms. Tests will also be done, such as: A post-void bladder scan. This measures any amount of urine that may remain in your bladder after you finish urinating. A digital rectal exam. In a rectal exam, your health care provider checks your prostate by putting a lubricated, gloved finger into your rectum to feel the back of your prostate gland. This exam detects the size of your gland and any abnormal lumps or growths. An exam of your urine (urinalysis). A prostate specific antigen (PSA) screening. This is a blood test used to screen for prostate cancer. An ultrasound. This test uses sound waves to electronically produce a picture of your prostate gland. Your health care provider may refer you to a specialist in kidney and prostate diseases (urologist). How is this treated? Once symptoms begin, your health care provider will monitor your condition (active surveillance or watchful waiting). Treatment for this condition will depend on the severity of your condition. Treatment may include: Observation and yearly exams. This may be the only treatment needed if your condition and symptoms are mild. Medicines to relieve your symptoms, including: ?Medicines to shrink the prostate. ?Medicines to relax the muscle of the prostate. Surgery in severe cases. Surgery may include: ?Prostatectomy. In this procedure, the prostate tissue is removed completely through an open incision or with a laparoscope or robotics. ?Transurethral resection of the prostate (TURP). In this procedure, a tool is inserted through the opening at the tip of the penis (urethra). It is used to cut away tissue of the inner core of the prostate. The pieces are removed through the same opening of the penis. This removes the blockage. ?Transurethral incision (TUIP). In this procedure, small cuts are made in the prostate. This lessens the prostate's pressure on the urethra. ?Transurethral microwave thermotherapy (TUMT). This procedure uses microwaves to create heat. The heat destroys and removes a small amount of prostate tissue. ?Transurethral needle ablation (TUNA). This procedure uses radio frequencies to destroy and remove a small amount of prostate tissue. ?Interstitial laser coagulation (ILC). This procedure uses a laser to destroy and remove a small amount of prostate tissue. ?Transurethral electrovaporization (TUVP). This procedure uses electrodes to destroy and remove a small amount of prostate tissue. ?Prostatic urethral lift. This procedure inserts an implant to push the lobes of the prostate away from the urethra. Follow these instructions at home: Take mucw-kgr-vebrpxk and prescription medicines only as told by your health care provider. Monitor your symptoms for any changes. Contact your health care provider with any changes. Avoid drinking large amounts of liquid before going to bed or out in public. Avoid or reduce how much caffeine or alcohol you drink. Give yourself time when you urinate. Keep all follow-up visits as told by your health care provider. This is important. Contact a health care provider if: You have unexplained back pain. Your symptoms do not get better with treatment. You develop side effects from the medicine you are taking. Your urine becomes very dark or has a bad smell. Your lower abdomen becomes distended and you have trouble passing your urine. Get help right away if: You have a fever or chills. You suddenly cannot urinate. You feel lightheaded, or very dizzy, or you faint. There are large amounts of blood or clots in the urine. Your urinary problems become hard to manage. You develop moderate to severe low back or flank pain. The flank is the side of your body between the ribs and the hip. These symptoms may represent a serious problem that is an emergency. Do not wait to see if the symptoms will go away. Get medical help right away. Call your local emergency services (911 in the [place] Do not drive yourself to the hospital. Summary Benign prostatic hyperplasia (BPH) is an enlarged prostate that is caused by the normal aging process and not by cancer. An enlarged prostate can press on the urethra. This can make it hard to pass urine. This condition is part of a normal aging process and is more likely to develop in men over the age of 50 years. Get help right away if you suddenly cannot urinate. This information is not intended to replace advice given to you by your health care provider. Make sure you discuss any questions you have with your health care provider. Document Released: 09/20/2006 Document Revised: 08/15/2019 Document Reviewed: 10/25/2017 [employer] Patient Education 2020 [employer]. Follow Up Care 04/11/2021 11:38:50 With:MOY ARRIAGA, Cristela Carbajal, URL Address: [facility] [address], [place] [address] [phone] When:Within 1 Year(s) Comments:w/ PSA [facility] 07-14-2022 NotePRE-OP HISTORY AND PHYSICAL Date:04/15/2022 HISTORY: Patient is an 86-year-old white male with complaints of declining vision out of his left eye. He states that he is having difficulty seeing the television clearly. Glare occurs at night time while driving, so rarely drives at night at this time. He also states having difficulty reading. This is all ongoing for approximately 1-2 years, progressively worsening over that timeframe. PAST OCULAR HISTORY: 1. Cataracts. 2. History of floaters. 3. A blood vessel burst in the requiring a laser procedure for the ruptured blood vessel. PAST MEDICAL HISTORY: 1. COVID positive in 2020 requiring hospitalization. 2. History of pacemaker and defibrillator. 3. Prostatectomy. 4. Back surgery. 5. Bypass surgery. 6. Stents placed for cardiac purposes. 7. Prostate cancer. 8. Coronary artery disease. 9. Heart block and heart arrhythmia. 10. Hypertension. 11. Hypercholesterolemia. 12. Iron deficiency anemia. 13. 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 SOCIAL HISTORY: Denies tobacco, alcohol, recreational drug abuse. SYSTEMIC MEDICATIONS: Include metoprolol, losartan, leflunomide, warfarin, hydroxychloroquine, spironolactone, furosemide, finasteride, atorvastatin and alfuzosin. ALLERGIES: To penicillin and latex. REVIEW OF SYSTEMS: No pertinent positives. PHYSICAL EXAM: VITALS: Blood pressure measured at 150/79 with a respiratory rate of 12 and pulse of 64. GENERAL: In general, he is awake, alert and oriented x3, well developed, well nourished, in no acute distress. HEART: Regular rate and rhythm. LUNGS: Clear bilaterally. ABDOMEN: Soft, non-tender, non-distended. EXTREMITIES: No pitting edema. OPHTHALMIC EXAM: Revealed a visual acuity of 20/60 in the right eye that glared to 20/400 and count fingers at 8 feet on the left. Pupils motility, muscle balance, confrontational visual anaya within normal limits bilaterally. Pressures measured at 16 bilaterally. Slit lamp exam revealed blepharitis with a severe decrease in tear film bilaterally. Conjunctiva, cornea, anterior chamber and iris were within normal limits bilaterally. Lens status demonstrated a 2+ nuclear sclerosis with 2+ cortical changes and vacuoles that were central in nature bilaterally. FUNDUS EXAM: Revealed good views with good dilation bilaterally. Optic discs, vessels, periphery and vitreous were within normal limits bilaterally. 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 ASSESSMENT / PLAN: 1. Visually significant cataract, left eye. After risks, benefits, alternatives, as well as expectations were delivered to the patient, he elected to go forward with cataract removal. He understands the risks include but not limited to infection, bleeding, loss of vision, loss of the eye itself. Secondly, he understands postoperatively he is likely to require spectacle correction for his best visual acuity. Finally, a complete ophthalmic exam was performed, there is not determined to be any other source of visual decline other than that of the cataract. However, there was a macular scar that could preclude him from seeing optimally post cataract removal process. 2. COVID-19, the patient was briefed in the office and consented for elective cataract surgery in the setting of the pandemic of coronavirus. He understands that he is at heightened risk going into a hospital setting; however, feels that his activities of daily living are depleted severe enough by his cataracts that he is willing to incur this risk and go forward with his elective procedure.[id number] NoteOP Note OPERATION DATE: 04/16/2022 SURGEON: Debbie Schrader D.O. PREOPERATIVE DIAGNOSIS: Nuclear sclerotic cataract left eye POSTOPERATIVE DIAGNOSIS: Nuclear sclerotic cataract left eye. PROCEDURE NAME: Cataract extraction with intraocular lens placement of the left eye. ANESTHESIA: Topical ESTIMATED BLOOD LOSS: Zero. COMPLICATIONS: None. PROCEDURE: The patient was brought to the Operating Room in supine position. After proper identification, the left eye was prepped and draped in a sterile ophthalmic fashion. A paracentesis was created at the 5 o'clock position. Approximately 1 mL of unpreserved Xylocaine was injected into the anterior chamber followed by Amvisc Plus. Using a 2.6 mm Keratome blade, a clear corneal incision was created at the 2 o'clock limbus. A cystotome was then used to begin a curvilinear capsulorrhexis that was continued for 360 degrees with the Utrata forceps. BSS on a 26 gauge cannula was injected beneath the anterior capsule to hydrodissect as well as hydrodelineate the lens. After ensuring mobility, phacoemulsification was performed in a [id number]-type fashion. After all nuclear material had been removed from the eye, IA was introduced and all residual cortical material was cleaned up. Additional Amvisc Plus was injected into the posterior bag and a lens model MX60, 20.5 diopters was injected and dialed into position. After ensuring centration, IA was introduced into the anterior chamber and all residual Amvisc Plus was removed from the eye. BSS on a 30 gauge cannula was then injected into the stroma of both the clear corneal incision as well as paracentesis to hydrate the wounds. Additional BSS was injected into the anterior chamber to pressurize the eye at approximately 20 to 22 mmHg by finger tension. 0.1 mL of antibiotic was injected into the anterior chamber, maintaining the pressure as above. Paola-April sponges were used to check the wounds to be watertight. One drop of apraclonidine and one drop of prednisolone acetate were placed into the eye and a shield was placed over top. The patient was sent to the postoperative area in satisfactory condition to follow up the following day for postoperative care.[facility] 11-03-2021 Evaluation note* Encounter Date Diagnosis Assessment Notes Treatment Notes Treatment Clinical Notes Oct, Displaced fracture of lateral end of right clavicle, subsequent encounter for fracture with routine healing (ICD-10 - S42.031D) Nelly returns with right distal clavicle fracture. At this juncture we have discussed the findings and diagnosis as well as personally reviewed appropriate imaging and performed interpretation of related testing and examination with the patient in office today. Continue working on range of motion. Increasing weightbearing as tolerated. Plan follow-up in another 6 to 8 weeks if not fully improved. The patient has noted signs of improvement. We will continue working and gentle motion and strength exercise. [employer] Other 01-07-2022 Evaluation note* Encounter Date Diagnosis Assessment Notes Treatment Notes Treatment Clinical Notes Oct, Closed displaced fracture of acromial end of right clavicle, initial encounter (ICD-10 - S42.031A) Nelly presents with right distal clavicle fracture. At this juncture we have discussed the findings and diagnosis as well as personally reviewed appropriate imaging and performed interpretation of related testing and examination with the patient in office today. Prior medical notes from [facility] and history have been reviewed. At this time I would recommend protected weightbearing gentle range of motion as tolerated. We will plan for follow-up in 4 to 6 weeks for repeat x-rays. The patient has been involved in our cooperative treatment plan and agrees to move forward with treatment at this time. Patient has sufferred a clavicle fracture. We will treat this non-operativley. We discussed use of a sling. We discussed and demonstrated active elbow and wrist motion exercise as well as passive pendulum shoulder motion with progression to active motion as pain allows. Early healing can be expected by 6 weeks post injury, however, potential for delayed healing or non-union discussed. We discussed the potential for mcfp cosmetic deformity over the fracure site. Oct, Other See orders for this visit as documented in the electronic medical record. [employer] Other Evaluation + Plan note Future Appointments Appointment Date:05/17/2023 08:45:00 AM Scheduled Provider:Cristela LI MD Location:[facility] Appointment Type:URO Office Visit Diagnostic Tests Pending * PSA Total 05/04/22 [facility] evaluation + Plan note Future Appointments Appointment Date:05/22/2024 08:45:00 AM Scheduled Provider:Cristela LI MD Location:[facility] Appointment Type:URO Office Visit Diagnostic Tests Pending * PSA Total 05/17/23 [facility] evaluation noteNo assessment information available [facility] Work Phone: Evaluation noteNo InformationNort Vast Other Evaluation note* Diagnosis 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) documented in this encounter [facility] Work Phone: [employer] general Narrative - Reported* Type Description Date Medical History Arthritis Surgical History cardiac pacemeker [employer] Other Hismbgv general Narrative - Reported* Type Description Date Medical History Arthritis Medical History History of cardiac pacemaker in situ Medical History Current use of anticoagulant the rapy Medical History Autoimmune thyroiditis Medical History 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, implants and grafts, initial encounter Medical History Chronic venous insufficiency Medical History Paroxysmal atrial fibrillation Medical History Hypertensive chronic kidney disease with stage 1 through stage 4 chronic kidney disease, or unspecified chronic kidney disease Medical History Ischemic cardiomyopathy Medical History Prostate cancer Medical History Abnormal loss of weight Medical History Cellulitis of calf Medical History Hypokalemia Medical History Bilateral leg weakness Medical History Acute pain of right shoulder Medical History H/O mitral valve replacement Medical History 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 Medical History Complete heart block Medical History Benign prostatic hyp erplasia with lower urinary tract symptoms, symptom details unspecified Medical History Hyperlipidemia type II Medical History Rheumatoid arthritis without rheumatoid factor, right wrist Surgical History cardiac pacemeker 2012 Surgical History EXTRACTION OF CATARACT OF BOTH EYES 2021 Surgical History REPLACEMENT, ICD, BIVENTRICULAR 2020 Surgical History CABG Surgical History MVR Surgical History COLONOSCOPY Hospitalization History SEE SURGICAL [employer] Other History general Narrative - Reported* Type Description Date Surgical History cardiac pacemeker 2012 Surgical History EXTRACTION OF CATARACT OF BOTH EYES 2021 Surgical History REPLACEMENT, ICD, BIVENTRICULAR 2020 Surgical History CABG Surgical History MVR Surgical History COLONOSCOPY Hospitalization History SEE SURGICAL HX [employer] Other HisKannact general Narrative - Reported* Type Description Date Medical History Arthritis Medical History History of cardiac pacemaker in situ Medical History Current use of anticoagulant the ryan Medical History Autoimmune thyroiditis Medical History 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, implants and grafts, initial encounter Medical History Chronic venous insufficiency Medical History Paroxysmal atrial fibrillation Medical History Hypertensive chronic kidney disease with stage 1 through stage 4 chronic kidney disease, or unspecified chronic kidney disease Medical History Ischemic cardiomyopathy Medical History Prostate cancer Medical History Abnormal loss of weight Medical History Cellulitis of calf Medical History Hypokalemia Medical History Bilateral leg weakness Medical History Acute pain of right shoulder Medical History H/O mitral valve replacement Medical History 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 Medical History Complete heart block Medical History Benign prostatic hyp erplasia with lower urinary tract symptoms, symptom details unspecified Medical History Hyperlipidemia type II Medical History Rheumatoid arthritis without rheumatoid factor, right wrist Medical History Laceration without f oreign body of left elbow, subsequent encounter (resolved 04/30/2021) Surgical History cardiac pacemeker 2012 Surgical History EXTRACTION OF CATARACT OF BOTH EYES 2021 Surgical History REPLACEMENT, ICD, BIVENTRICULAR 2020 Surgical History CABG Surgical History MVR Surgical History COLONOSCOPY Hospitalization History SEE SURGICAL [employer] Other Hispvyf general Narrative - Reported* Type Description Date Medical History History of cardiac pacemaker in situ Medical History Current use of anticoagulant the ryan Medical History Autoimmune thyroiditis Medical History Chronic venous insufficiency Medical History Paroxysmal atrial fibrillation Medical History Hypertensive chronic kidney disease with stage 1 through stage 4 chronic kidney disease, or unspecified chronic kidney disease Medical History Ischemic cardiomyopathy Medical History Prostate cancer Medical History H/O mitral valve replacement Medical History Complete heart block Medical History Benign prostatic hyp erplasia with lower urinary tract symptoms, symptom details unspecified Medical History Hyperlipidemia type II Medical History Rheumatoid arthritis without rheumatoid factor, right wrist Medical History HFrEF Surgical History cardiac pacemeker 2012 Surgical History EXTRACTION OF CATARACT OF BOTH EYES 2021 Surgical History REPLACEMENT, ICD, BIVENTRICULAR 2020 Surgical History CABG Surgical History MVR Surgical History COLONOSCOPY Hospitalization History SEE SURGICAL HX [facility] [employer] Other Hospital course Narrative No data available for this section [facility] progress note No data available for this section [facility] [employer] Education Summary Purpose Family History No Family History Records FoundNo Family History Records FoundNo Family History Records FoundNo Family History Records FoundNo Family History Records FoundNo Family History Records FoundNo Family History Records FoundNo Family History Records Found Advance Directives Advance Directive Response Recorded Date/ Time Advance Directives No July 10, 2017 8:06am Advance Directive Response Recorded Date/ Time Advance Directives No July 10, 2017 7:06am Chief Complaint and Reason for Visit Chief Complaint m05.79 z79.899 Reason for Referral Specialty Diagnoses / Procedures Referred By Faviola t Referred To Contact Radiology Diagnoses Malignant melanoma of forehead (CMS/HCC) Procedures [place] [id number] [address] Department of Otolaryngology [place] [id number] Referral ID Status Reason Start Date Expiration Date Visits Requested Visits Authorized [id number] Pending Review Perform Procedure 10/08/2023 10/07/2024 2 2 Additional Source Comments (unrecognized sect ion and content) No Status Records FoundNo Status Records FoundNo Status Records FoundNo Status Records FoundNo Status Records FoundNo Status Records FoundNo Status Records FoundNo Status Records Found INFORMATION SOURCE (unrecogn ized section and content) DATE CREATED AUTHOR 09/16/2021 [facility] DATE CREATED AUTHOR AUTHOR'S ORGANIZ ATION 03/12/2023 [facility] DATE CREATED AUTHOR AUTHOR'S ORGANIZ ATION 05/06/2023 [facility] DATE CREATED AUTHOR AUTHOR'S ORGANIZ ATION 05/18/2023 [facility] DATE CREATED AUTHOR AUTHOR'S ORGANIZ ATION 07/25/2023 [facility] DATE CREATED AUTHOR AUTHOR'S ORGANIZ ATION 09/26/2023 [facility] DATE CREATED AUTHOR AUTHOR'S ORGANIZ ATION 10/09/2023 [facility] DATE CREATED AUTHOR AUTHOR'S ORGANIZ ATION 10/10/[address] [facility] Ambulatory REASON FOR VISIT (unrecogniz ed section and content) pre op clearance Reason Comments New Patient Visit Care Team (unrecognized sect ion and content) Team Status: Active Member Role Status Dates Steve Vargas , DO Primary Care Provider Active Team Status: Inactive Member Role Status Dates Steve Vargas , Primary Care Provider Active Michele Arteaga MD Attending Provider Active Team Status: Inactive Member Role Status Dates Steve Vargas , DO Primary Care Provider Active Jose R Cruz MD Attending Provider Active Goals (unrecognized section and content) Goals may be documented in a n alternate section FOR RECORDS PERTAINING TO PATIENTS WHO ARE OR HAVE BEEN ENROLLED IN A CHEMICAL DEPENDENCY/SUBSTANCEABUSE PROGRAM, SOME INFORMATION MAY BE OMITTED. This clinical summary was aggregated from multiple sources. Caution should be exercised in using it in the provision of clinical care. This summary normalizes information from multiple sources, and as a consequence, information in this document may materially change the coding, format and clinical context of patient data. In addition, data may be omitted in some cases. CLINICAL DECISIONS SHOULD BE BASED ON THE PRIMARY CLINICAL RECORDS. [facility] [employer] [facility]. provides no warranty or guarantee of the accuracy or completeness of information in this document.
--- NOTE | 2023-10-21 08:32 | XR_ITS ---
The [address] [address] Patient Name: NELLY QUIROZ MRN: [id number] date: 1935 Sex: M Assigned Patient Location: CARD Current Patient Location: CARD Accession/Order Number: [id number] Exam Date: 10/21/2023 08:40 Report Date: 10/21/2023 08:57 At the request of: UMA DE PAZ Procedure: XR chest 2V EXAM: Chest x-ray HISTORY: . Pre Operative Examination Z01.818, Ischemic Cardiomyopathy . COMPARISON: 08/26/2021 TECHNIQUE: Frontal and lateral chest FINDINGS: Heart is mildly enlarged. Valvular prosthesis is noted. Pacer/defibrillator is noted. Vascularity is unremarkable. There is hyperexpansion of lungs and finding in hemidiaphragms suggesting COPD. Lungs are free of focal infiltrates. Atherosclerotic changes of the thoracic aorta are noted. Median sternotomy sutures are noted. Spondylosis of the spine is noted. XR/XR chest 2V IMPRESSION: 1. Cardiac enlargement with valvular prosthesis.9 pacer/defibrillator is noted. 2. Findings suggestive of COPD. 3. No infiltrates. 4. No significant change from the previous exam. Electronically authenticated by: BRANDI PRICE Date: 10/21/2023 08:57
[2023-10-21 09:05] LABS: Basophils Percent Auto 0.9 % (0.2-2.0); Eosinophils Absolute Auto 0.2 10^3/uL (0.0-0.7); Eosinophils Percent Auto 3.8 % (0.9-7.0); Hematocrit 34.3 % (42.0-54.0); Hemoglobin 10.7 g/dL (14.0-18.0); Immature Granulocytes Abs Auto 0.01 10^3/uL (0.00-0.03); Immature Granulocytes Pct Auto 0.2 % (0.0-0.5); Lymphocytes Absolute Auto 0.9 10^3/uL (1.2-3.8); Lymphocytes Percent Auto 19.7 % (20.5-60.0); Mean Corpuscular HGB Conc 31.2 g/dL (29.9-35.2); Mean Corpuscular Hemoglobin 30.9 pg (25.9-34.0); Mean Corpuscular Volume 99.1 fL (80.0-94.0); Mean Platelet Volume 10.3 fL (9.5-13.5); Monocytes Absolute Auto 0.7 10^3/uL (0.3-0.8); Monocytes Percent Auto 14.4 % (1.7-12.0); Neutrophils Absolute Auto 2.8 10^3/uL (1.4-6.5); Platelet Count 134 10^3/uL (150-450); Red Blood Count 3.46 10^6/uL (4.70-6.10); Red Cell Distribution Width 12.8 % (11.0-15.0); White Blood Count 4.5 10^3/uL (4.0-11.0)
[2023-10-21 09:18] LABS: INR 3.08; Prothrombin Time 30.6 sec (9.0-11.6)
[2023-10-21 09:34] LABS: Anion Gap 11.6; BUN Creatinine Ratio 12.1; Calcium 9.4 mg/dL (8.5-10.1); Carbon Dioxide 31.1 mmol/L (21.0-32.0); Chloride 104 mmol/L (98-107); Estimated GFR (African America >60 (>=60); Estimated GFR (Non-African Ame 55 (>=60); Glucose 105 mg/dL (74-106); Potassium 3.7 mmol/L (3.5-5.1); Sodium 143 mmol/L (136-145); Thyroid Stimulating Hormone 1.566 uIU/mL (0.358-3.740)
== END 2023-10-21 08:13 | disposition home or self-care (01) ==
LOC: CARD 08:13
PROVIDERS: PCP Internal Medicine; Visit Provider Internal Medicine
DX: Z01.818 Encounter for other preprocedural examination (principal); I25.5 Ischemic cardiomyopathy; I10 Essential (primary) hypertension; E06.3 Autoimmune thyroiditis
CPT/HCPCS: 36415; 71046; 80048; 84443; 85025; 85610; 93005

== ENCOUNTER 2023-11-04 01:05 | Outpatient (RCR) | payer MEDICARE, BC, SELFPAY | END 2023-12-02 17:19 | disposition home or self-care (01) | LOC: MM 01:05 | PROVIDERS: PCP Internal Medicine; Visit Provider Internal Medicine | DX: Z51.81 Encounter for therapeutic drug level monitoring (principal); Z79.01 Long term (current) use of anticoagulants; I48.91 Unspecified atrial fibrillation | CPT/HCPCS: 85610; G0463 ==

== ENCOUNTER 2023-12-03 01:13 | Outpatient (RCR) | payer MEDICARE, BC, SELFPAY | END 2023-12-31 13:16 | disposition home or self-care (01) | LOC: MM 01:13 | PROVIDERS: PCP Internal Medicine; Visit Provider Internal Medicine | DX: Z51.81 Encounter for therapeutic drug level monitoring (principal); Z79.01 Long term (current) use of anticoagulants; I48.91 Unspecified atrial fibrillation | CPT/HCPCS: 85610; G0463 ==

== ENCOUNTER 2024-01-03 00:08 | Outpatient (RCR) | payer MEDICARE, BC, SELFPAY | END 2024-02-01 17:52 | disposition home or self-care (01) | LOC: MM 00:08 | PROVIDERS: PCP Internal Medicine; Visit Provider Internal Medicine | DX: Z51.81 Encounter for therapeutic drug level monitoring (principal); Z79.01 Long term (current) use of anticoagulants; I48.91 Unspecified atrial fibrillation | CPT/HCPCS: 85610; G0463 ==

== ENCOUNTER 2024-02-02 04:35 | Outpatient (RCR) | payer MEDICARE, BC, SELFPAY | END 2024-03-03 11:51 | disposition home or self-care (01) | LOC: MM 04:35 | PROVIDERS: PCP Internal Medicine; Visit Provider Internal Medicine | DX: Z51.81 Encounter for therapeutic drug level monitoring (principal); Z79.01 Long term (current) use of anticoagulants; I48.91 Unspecified atrial fibrillation ==

== ENCOUNTER 2024-03-06 00:26 | Outpatient (RCR) | payer MEDICARE, BC, SELFPAY | END 2024-03-31 10:18 | disposition home or self-care (01) | LOC: MM 00:26 | PROVIDERS: PCP Internal Medicine; Visit Provider Internal Medicine | DX: Z51.81 Encounter for therapeutic drug level monitoring (principal); Z79.01 Long term (current) use of anticoagulants; I48.91 Unspecified atrial fibrillation | CPT/HCPCS: 85610; G0463 ==

== ENCOUNTER 2024-04-03 00:52 | Outpatient (RCR) | payer MEDICARE, BC, SELFPAY | END 2024-05-03 09:46 | disposition home or self-care (01) | LOC: MM 00:52 | PROVIDERS: PCP Internal Medicine; Visit Provider Internal Medicine | DX: Z51.81 Encounter for therapeutic drug level monitoring (principal); Z79.01 Long term (current) use of anticoagulants; I48.91 Unspecified atrial fibrillation | CPT/HCPCS: 85610; G0463 ==

== ENCOUNTER 2024-04-20 07:07 | Outpatient (OUT) | payer MEDICARE, BC, SELFPAY ==
--- OUTSIDE RECORDS SUMMARY | 2024-04-20 07:12 | XMS_ITS ---
Patient Summarization (C-CDA 2.1 CCD) Created on: April 20, 2024 NELLY HANNON : 1935 Sex: Male Author Organization Sample organization Care Team Providers Care Busher Helper Name Role Phone Unavailable Primary Care Provider Unavailabl e STEVE DE PAZ Primary Care Unavailable FILIPPO JUDGE Attending Unavailable FILIPPO JUDGE Admitting Unavailable STEVE DE PAZ Referring Unavailable Vinh Lawton Unavailable STEVE DE PAZ Primary Care Physician [phone] DO Steve De Paz Primary Care Provider MD Michele Arteaga Attending Provider DO Steve De Paz Primary Care Provider [phone] MD Michele Arteaga Attending Provider [phone] Steve De Paz Unavailable MOY ., DR ARCHIBALD Consulting Unavailable WINTER ., DR ARCHIBALD Attending Unavailable BALL, DR EATON Primary Care Unavailable WINTER ., DR ARCHIBALD Admitting Unavailable ZANDRA, DR EATON Primary Care Unavailable SHAIKH Stephon LUO Attending Unavailable SHAIKH Stephon LUO Admitting Unavailable ZANDRA, DR EATON Primary Care Unavailable GERBER ., DR LOPEZ Consulting Unavailable HOTristan ., DR LOPEZ Attending Unavailable HOY ., DR LOPEZ Admitting Unavailable FILIPPO JUDGE Attending Unavailable FILIPPO JUDGE Admitting Unavailable FILIPPO JUDGE Consulting Unavailable ZANDRA, DR EATON Primary Care Unavailable ZANDRA, DR EATON Consulting Unavailable ZANDRA, DR EATON Attending Unavailable BALL, DR EATON Admitting Unavailable ZANDRA, DR EATON Primary Care Unavailable DEBBIE GORDON Attending Unavailable ZANDRA, DR EATON Primary Care Unavailable ZANDRA, DR EATON Consulting Unavailable DEBBIE GORDON Admitting Unavailable DEBBIE GORDON Consulting Unavailable RON CAZARES Consulting Unavailable FILIPPO JUDGE Attending Unavailable FILIPPO JUDGE Admitting Unavailable FILIPPO JUDGE Consulting Unavailable ZANDRA, DR EATON Primary Care [...] Attending Unavailable FAWWAD, HANSEN H Admitting Unavailable DEBBIE GORDON Consulting Unavailable DEBBIE GORDON Attending Unavailable DEBBIE GORDON Admitting Unavailable ZANDRA, DR EATON Primary Care Unavailable FILIPPO JUDGE Admitting Unavailable FILIPPO JUDGE Consulting Unavailable ZANDRA, DR EATON Primary Care Unavailable FILIPPO JUDGE Attending Unavailable DO Steve De Paz Primary Care Provider MD Michele Arteaga Attending Provider [phone] MD Jose R Cruz Attending Provider Cristela WINTER Attending Unavailable Cristela WINTER Attending Unavailable DO Steve De Paz Primary Care Provider [phone] MD Michele Arteaga Attending Provider [phone] Unavailable Primary Care Provider Steve Peters DO Primary Care Provider ELKIN HOLLY Admitting Unavailable ELKIN HOLLY Attending Unavailable BALL, STEVE E Primary Care Unavailable ELKIN HOLLY Referring Unavailable BALL, STEVE E Primary Care Unavailable THRASHMI, ELKIN E Referring Unavailable BALL, STEVE E Primary Care Unavailable Ball, DO Steve Primary Care Provider MD Elkin Holly Attending Provider MD Adilene Weinberg Attending Provider MD Elkin Holly Referring Provider [phone] DO Steve De Paz Primary Care Provider MD Elkin Holly Attending Provider MD Adilene Weinberg Attending Provider MD Elkin Holly Referring Provider [phone] MD Michele Arteaga Attending Provider ELKIN HOLLY Attending Unavailable ELKIN HOLLY Attending Unavailable ZANDRA, STEVE E Primary Care Unavailable ELKIN HOLLY Attending Unavailable ZANDRA, STEVE E Primary Care Unavailable DEBBIE BOBBY Attending Unavailable ZANDRA, STEVE E Primary Care Unavailable DEBBIE GORDON Attending Unavailable DO Steve De Paz Primary Care Provider MD Adilene Weinberg Attending Provider MD Elkin Holly Referring Provider Elkin Holly Admitting Unavailable Elkin Holly Attending Unavailable Ball, Steve Primary Care Unavailable Michele Arteaga Attending Unavailable Ball, Steve Primary Care Unavailable Michele Arteaga Admitting Unavailable Jose R Cruz Admitting Unavailable Jose R Cruz Attending Unavailable Ball, Steve Primary Care Unavailable HaladaMichele magdaleno Attending Unavailable Ball, Steve Primary Care Unavailable Michele Arteaga Admitting Unavailable Michele Arteaga Admitting Unavailable Michele Arteaga Attending Unavailable Ball, Steve Primary Care Unavailable Elkin Holly Referring Unavailable Adilene Weinberg Admitting Unavailable Adilene Weinberg Attending Unavailable Ball, Steve Primary Care Unavailable FILIPPO JUDGE Referring Unavailable YULIANA RODRIGUEZ Attending Unavailable RAFA, MORE Referring Unavailable RAFA, MORE Referring Unavailable RAFA, MORE Referring Unavailable RAFA, MORE Referring Unavailable RAFA, MORE Referring Unavailable NU, FILIPPO Referring Unavailable YULIANA RODRIGUEZ Attending Unavailable Allergies Allergy Classification Reported Allergen(s) Allergy Type Date of Onset Reaction(s) Facility Latex (1 source) Latex Substance Allergy 4 Rash [facility] Penicillins (antibiotic) (1 source) Penicillins Drug Allergy 4 Swelling of the Eye [facility] (20 sources) Latex; Translations: [LATEX] Propensity to adverse reactions (disorder) 9 rash, Hives, Itching [facility] Repository (18 sources) Penicillins; Translations: [penicillins] Drug allergy (disorder) 0 Swelling of the Eye [facility] Rep[facility] (2 sources) Penicillin V Drug Allergy Unknown [facility] [employer] Other (11 sources) Penicillin Drug Allergy Unknown [facility] [employer] Other (9 sources) Penicillins Drug Allergy 4 Other [facility] Work Phone: (1 source) Penicillins Drug allergy (disorder) 4 [facility] Repository (1 source) Spironolactone; Translations: [SPIRONOLACTONE ] Drug Allergy 1 [facility] Repository Encounters Encounter Date Encounter Type Care Provider Facility Start: 05-22-2024 ambulatory Cristela Seo ty:[facility] Start: 03-31-2024 ambulatory MORE RAFA [facility] Start: 03-16-2024 End: 03-16-2024 ambulatory DO Steve [employer] Work Phone: [facility] Work Phone: Start: 03-16-2024 End: 03-16-2024 Patient encounter procedure DO Steve [employer] Work Phone: [facility] Work Phone: Start: 03-16-2024 Encounter for preprocedural cardiovascular examination MORE CRAIG [facility] Start: 03-16-2024 Registered Recurring DO Webster in [employer] Work Phone: [facility] Acute Work Phone: Start: 03-16-2024 ambulatory Elkin Acevedo y:[facility] Start: 02-16-2024 End: 02-16-2024 ambulatory DEBBIE GORDON Not Available Start: 01-19-2024 End: 01-19-2024 ambulatory DO Steve Ball Work Phone: [facility] Work Phone: Start: 01-19-2024 End: 01-19-2024 Patient encounter procedure DO Steve Ball Work Phone: [facility] Work Phone: Start: 01-17-2024 End: 01-17-2024 ambulatory DEBBIE Oneill [facility] Ambulatory Start: 01-17-2024 End: 01-17-2024 Initial inpatient consult new/estab pt 55 min Debbie Bobby MD Work Phone: [facility] Comment on above: Brow ptosis, right ( Primary Dx); Dermatochalasis of right upper eyelid Start: 01-17-2024 End: 01-17-2024 Office outpatient visit 15 minutes Elkin Holly MD Work Phone: [facility] Comment on above: 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) Start: 12-27-2023 End: 12-27-2023 Patient encounter procedure DO Steve Ball Work Phone: [facility] [address] Work Phone: Start: 12-27-2023 End: 12-27-2023 ambulatory DO Steve Ball Work Phone: [facility] Work Phone: Start: 12-17-2023 End: 12-17-2023 ambulatory DO Steve Ball Work Phone: [facility] Work Phone: Start: 12-17-2023 End: 12-17-2023 Patient encounter procedure DO Steve Ball Work Phone: [facility] Ambulatory Work Phone: Start: 12-17-2023 Registered Recurring DO Benjam in Ball Work Phone: [facility] Acute Work Phone: Start: 12-10-2023 End: 12-10-2023 Patient encounter procedure DO Steve Ball Work Phone: [facility] Work Phone: Start: 11-24-2023 Registered Recurring DO Benjam in [facility] Work Phone: [facility] Work Phone: Start: 11-24-2023 End: 11-24-2023 ambulatory DO Steve De Paz Work Phone: [facility] Work Phone: Start: 11-24-2023 End: 11-24-2023 Patient encounter procedure DO Steve Zandra Work Phone: [facility] Work Phone: Start: 11-19-2023 End: 11-19-2023 Patient encounter procedure DO Steve De Paz Work Phone: [facility] Work Phone: Start: 11-19-2023 End: 11-19-2023 ambulatory DO Steve De Paz Work Phone: [facility] Work Phone: Start: 11-08-2023 End: 11-08-2023 ambulatory ELKIN Saldana 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); Post-op pain Start: 10-28-2023 End: 10-28-2023 ambulatory [facility] Start: 10-28-2023 End: 10-28-2023 Subsequent hospital visit by physician Shasha Nm 2 [facility] Comment on above: Malignant melanoma o f forehead (CMS/HCC) Start: 10-26-2023 End: 10-26-2023 ambulatory [facility] Start: 10-19-2023 End: 10-19-2023 ambulatory Steve Zandra Other [employer] Other Start: 10-19-2023 Encounter for other preprocedural examination Steve De Paz [facility] Start: 10-19-2023 Office outpatient vi sit 25 minutes Steve De Paz [facility] Start: 10-19-2023 End: 10-19-2023 Patient encounter procedure DO Steve Ball Work Phone: [facility] Work Phone: Start: 10-08-2023 End: 10-08-2023 ambulatory [facility] Ambulatory Start: 10-08-2023 End: 10-08-2023 Office outpatient new 45 minutes Elkin Holly MD Work Phone: [facility] Comment on above: Malignant melanoma o f forehead (CMS/HCC) Start: 07-19-2023 End: 07-19-2023 Patient encounter procedure DO Steve Ball Work Phone: [facility] [address] Work Phone: Start: 07-19-2023 End: 07-19-2023 ambulatory DO Steve Ball Work Phone: [facility] Work Phone: Start: 07-13-2023 End: 07-13-2023 ambulatory Steve De Paz Other [employer] Other Start: 07-13-2023 Telephone encounter Steve De Paz [facility] Start: 07-05-2023 End: 07-05-2023 ambulatory Steve De Paz Other [employer] Other Start: 07-05-2023 Patient encounter procedure Steve De Paz [facility] [place] [facility] Start: 05-31-2023 End: 05-31-2023 ambulatory Steve De Paz Other [employer] Other Start: 05-31-2023 Nursing evaluation o f patient and report Steve De Paz [facility] Start: 05-17-2023 End: 05-18-2023 ambulatory Cristela WINTER Facility:[facility] Start: 05-17-2023 End: 05-17-2023 Patient encounter procedure Cristela WINTER [facility] Start: 04-30-2023 End: 04-30-2023 ambulatory Steve De Paz Other [employer] Other Start: 04-30-2023 Office outpatient vi sit 15 minutes Steve De Paz [facility] Start: 04-28-2023 End: 04-28-2023 ambulatory [facility] Start: 03-30-2023 End: 03-30-2023 ambulatory DO Steve De Paz Work Phone: [facility] Work Phone: Start: 03-30-2023 End: 03-30-2023 Departed Referred DO Steve De Paz Work Phone: [facility] [place] Work Phone: Start: 03-23-2023 End: 03-23-2023 Patient encounter procedure DO Steve De Paz Work Phone: [facility] [address] Work Phone: Start: 03-23-2023 End: 03-23-2023 ambulatory DO Steve Ball Work Phone: [facility] Work Phone: Start: 02-01-2023 End: 03-03-2023 ambulatory SHAIKH Stephon LUO Facility:[facility] Start: 01-22-2023 Office outpatient vi sit 15 minutes Steve Zandra [facility] Start: 01-22-2023 End: 01-22-[address] STEVE DE PAZ [employer] Other Start: 01-21-2023 End: 01-21-2023 ambulatory Steve De Paz Other [employer] Other Start: 01-21-2023 Telephone encounter Steve DODGE [facility] Start: 01-06-2023 End: 01-06-2023 ambulatory Steve De Paz Other [employer] Other Start: 01-06-2023 Office outpatient vi sit 25 minutes Steve De Paz [facility] Start: 01-04-2023 End: 01-29-[address] STEVE DE PAZ Facility:[facility] Start: 12-28-2022 End: 12-28-2022 ambulatory Steve De Paz Other [employer] Other Start: 12-28-2022 Telephone encounter Steve DODGE [facility] Start: 12-02-2022 End: 01-01-[address] STEVE DE PAZ Facility:[facility] Start: 11-19-2022 End: 11-19-2022 ambulatory DO Steve Ball Work Phone: [facility] Work Phone: Start: 11-19-2022 End: 11-19-2022 Patient encounter procedure DO Steve Ball Work Phone: [facility] [address] Work Phone: Start: 11-05-2022 End: 11-06-2022 ambulatory FILIPPO JUDGE [employer] Other Start: 11-05-2022 Telephone encounter Steve DODGE [facility] Start: 11-04-2022 End: 12-02-[address] STEVE DE PAZ Facility:[facility] Start: 10-05-2022 End: 11-04-[address] STEVE DE PAZ Facility:[facility] Start: 10-02-2022 Encounter for preprocedural cardiovascular examination FILIPPO JUDGE [facility] Start: 09-29-2022 End: 09-30-2022 ambulatory FILIPPO JUDGE Facility:[facility] Start: 09-29-2022 End: 09-30-2022 Encounter for preprocedural cardiovascular examination FILIPPO JUDGE Facility:[facility] Start: 09-03-2022 End: 10-04-[address] STEVE DE PAZ Facility:[facility] Start: 08-05-2022 End: 08-06-[address] STEVE DE PAZ Facility:[facility] Start: 2022 End: 09-02-[address] STEVE DE PAZ Facility:[facility] Start: 07-20-2022 End: 07-20-2022 ambulatory DO Steve De Paz Work Phone: [facility] Work Phone: Start: 07-20-2022 End: 07-20-2022 Patient encounter procedure DO Steve De Paz Work Phone: [facility] [address] Start: 07-06-2022 End: 08-03-2022 ambulatory SHAIKH Stephon LUO Facility:[facility] Start: 06-04-2022 End: 07-04-2022 ambulatory SHAIKH Stephon LUO Facility:[facility] Start: 05-07-2022 End: 05-07-2022 ambulatory DEBBIE GORDON Facility:[facility] Start: 05-04-2022 End: 05-04-2022 Patient encounter procedure Cristela WINTER [facility] Start: 05-04-2022 End: 06-03-2022 ambulatory SHAIKH Stephon LUO Facility:[facility] Start: 04-20-2022 End: 04-21-2022 ambulatory FILIPPO JUDGE Facility:[facility] Start: 04-16-2022 Adult health examination Cezar De Paz Other [employer] Other Start: 04-16-2022 End: 04-16-2022 ambulatory DEBBIE GORDON Facility:[facility] Start: 04-07-2022 End: 04-08-[address] CRISTELA WINTER . Facility:[facility] Start: 04-03-2022 End: 05-01-2022 ambulatory HANSENRICARDO SOTOAaron Facility:[facility] Start: 11-03-2021 End: 11-03-2021 ambulatory Vinh Lawton Other [employer] Other Start: 11-03-2021 Postop follow up vis it related to original px Vinh Lawton [facility] Start: 10-10-2021 End: 10-10-2021 ambulatory Vinh Lawton Other [employer] Other Start: 10-10-2021 FQHC visit new patient Vinh Lawton [facility] Start: 06-20-2021 End: 08-03-2021 ambulatory STEVE DE PAZ Facility:[facility] Start: 04-07-2019 Notes/Results Only Other Other NOTE S/RESULTS Start: 04-07-2019 End: 04-07-2019 Patient encounter procedure Other Other [facility] Start: 03-15-2019 Notes/Results Only Other Other NOTE S/RESULTS Start: 03-15-2019 End: 03-15-2019 Patient encounter procedure Other Other [facility] Start: 03-02-2019 Notes/Results Only Other Other NOTE S/RESULTS Start: 03-02-2019 End: 03-02-2019 Patient encounter procedure Other Other [facility] Start: 02-24-2019 Notes/Results Only Other Other NOTE S/RESULTS Start: 02-24-2019 End: 02-24-2019 Patient encounter procedure Other Other [facility] Start: 02-08-2019 Notes/Results Only Other Other NOTE S/RESULTS Start: 02-08-2019 End: 02-08-2019 Patient encounter procedure Other Other [facility] Start: 12-16-2018 Notes/Results Only Other Other NOTE S/RESULTS Start: 12-16-2018 End: 12-16-2018 Patient encounter procedure Other Other [facility] Start: 09-29-2018 Notes/Results Only Other Other NOTE S/RESULTS Start: 09-29-2018 End: 09-29-2018 Patient encounter procedure Other Other [facility] Immunizations Immunization Date Immunization Notes Care Provider Reji siu 08-12-2023 Prevnar 20 Steve De Pza Other [facility] 07-05-2023 influenza virus vaccine, unspecified formulation DO Steve De Paz Work Phone: [facility] 07-05-2023 influenza, high dose seasonal, preservative-free Steve De Paz Other [employer] Other 08-20-2022 influenza virus vaccine, split virus (incl. purified surface antigen) Steve De Paz Other [employer] Other 08-20-2022 influenza virus vaccine, unspecified formulation Elkin Holly MD Work Phone: [facility] 07-22-2021 influenza virus vaccine, split virus (incl. purified surface antigen) Steve De Paz Other [employer] Other 07-22-2021 influenza virus vaccine, unspecified formulation DO Steve De Paz Work Phone: [facility] 12-09-2020 SARS-CoV-2 (COVID-19 ) mRNA-1041 vaccine Cristlea WINTER [facility] Sabiha 07-09-2020 influenza virus vaccine, split virus (incl. purified surface antigen) Steve De Paz Other [employer] Other 07-09-2020 influenza virus vaccine, unspecified formulation DO Steve Zandra Work Phone: [facility] 07-05-2019 influenza virus vaccine, split virus (incl. purified surface antigen) Steve De Paz Other [employer] Other 07-05-2019 influenza virus vaccine, unspecified formulation DO [employer] Work Phone: [facility] 06-30-2018 influenza virus vaccine, split virus (incl. purified surface antigen) Steve De Paz Other [facility] [employer] Other 06-30-2018 influenza virus vaccine, unspecified formulation DO [employer] Work Phone: [facility] 06-29-2017 influenza virus vaccine, split virus (incl. purified surface antigen) Steve [employer] Other [facility] [employer] Other 06-29-2017 influenza virus vaccine, unspecified formulation DO [employer] Work Phone: [facility] 06-22-2016 influenza virus vaccine, split virus (incl. purified surface antigen) Steve [employer] Other [facility] [employer] Other 06-22-2016 influenza virus vaccine, unspecified formulation DO [employer] Work Phone: [facility] 07-19-2015 pneumococcal conjuga te vaccine, 13 valent Steve [employer] Other [facility] 07-16-2015 influenza virus vaccine, split virus (incl. purified surface antigen) Steve [employer] Other [facility] [employer] Other 07-16-2015 influenza virus vaccine, unspecified formulation DO [employer] Work Phone: [facility] 06-16-2013 tetanus and diphther ia toxoids, adsorbed, preservative free, for adult use (5 Lf of tetanus toxoid and 2 Lf of diphtheria toxoid) Steve [employer] Other [facility] 04-06-2011 tetanus and diphther ia toxoids, adsorbed, preservative free, for adult use (5 Lf of tetanus toxoid and 2 Lf of diphtheria toxoid) Steve [employer] Other [facility] 04-03-2009 pneumococcal polysaccharide vaccine, 23 valent Steve [employer] Other [facility] Medications Current Medications Medication Drug Class(es) Dates Sig (Normalized) Sig (Original) acetaminophen 325 mg / HYDROcodone bitartrate 5 mg oral tablet (13 sources) Opioid Agonist Start: 10-10-2021 take 1-2 tablets by mouth every six hours as needed HYDROcodone-Aceta minophen 5-325 MG 1-2 tablet as needed Orally every 6 hrs for 7 days Oct, Active albuterol 0.83 mg/ml inhalation solution (1 source) beta2-Adrenergic Agonist Start: 10-28-2023 albuterol 2.5 mg /3 mL (0.083 %) nebulizer solution 2.5 mg 24 hr alfuzosin hydrochloride 10 mg extended release oral tablet (20 sources) alpha-Adrenergic [place] Start: 11-24-2023 take 10 mg by mouth once daily at mealtime Alfuzosin Active 10 MG PO Daily November 24, 2023 1:00am administer after the same meal each day Start: 12-22-2021 End: 11-21-2023 take 1 tablet by mouth once daily alfuzosin 10 mg ER Tab 10 mg = 1 tab(s), Oral, Daily, X 90 day(s), # 90 tab(s), Refills(s) 3, Pharmacy: [facility], 178, cm, 05/04/22 12:45:00 EDT, Height/Length Dosing, 76, kg, 05/04/22 12:45:00 EDT, Weight Dosing Start Date: 11/26/22 Stop Date: 11/21/23 Status: Ordered atorvastatin 40 mg oral tablet (20 sources) HMG-CoA Reductase Inhibitor Start: 04-02-2014 take 40 mg by mouth once daily Atorvastatin Active 40 MG PO Daily July 13, 2017 12:00am betamethasone 0.5 mg/ml / clotrimazole 10 mg/ml topical cream (5 sources) Azole Antifungal, Corticosteroid Start: 04-16-2023 Clotrimazole-Betam ethasone 1-0.05 % 1 application Externally Twice a [...] mg / cholecalciferol 125 unt oral tablet (20 sources) Vitamin D Start: 07-13-2017 take 1 tablet by mouth once daily Calcium Carbonate-Vitamin D3 (Calcium 500 + D (D3)) 500 mg(1,250mg) -125 unit Tablet Active 1 TAB PO Daily July 13, 2017 12:00am calcium chloride 0.0014 meq/ml / potassium chloride 0.004 meq/ml / sodium chloride 0.103 meq/ml / sodium lactate 0.028 meq/ml injectable solution (1 source) Start: 10-28-2023 lactated Ringe r's infusion Calcium Citrate / Vitamin D (2 sources) Start: 04-02-2014 calcium-vitami n D Refill(s) 0 Start Date: 04/02/14 Status: Ordered cholecalciferol 0.125 mg oral tablet (20 sources) Vitamin D Start: 07-13-2017 take 1 tablet by mouth once daily Cholecalciferol (Vitamin D3) (Vitamin D3) 5,000 unit Tablet Active 1 TAB PO Daily July 13, 2017 12:00am take 1 tablet by mouth every oth er day cholecalciferol (Vitamin D-3) 5,000 Units tablet Take 1 tablet every other day by oral route. Active take 1 capsule by mo [facility] every other day Vitamin D3 25 MCG (1000 UT) 1 capsule Or ally every other day Active clopidogrel 75 mg oral tablet (14 sources) P2Y12 Platelet Inhibitor Start: 04-08-2020 take 1 mg by mouth once daily Plavix 75 mg Tab mg tab(s), Oral, Daily, Refills(s) 0 Start Date: 04/08/20 Status: Ordered docusate sodium 100 mg oral capsule (12 sources) take 1 capsule by mouth every twenty-four hours 1 ml fentaNYL 0.05 mg/ml injection (1 source) Opioid Agonist Start: 10-28-2023 fentaNYL PF (Sublimaze) injection 25 mcg ferrous sulfate 325 mg oral tablet (20 sources) Start: 07-13-2017 take 1 tablet by mouth once daily Ferrous Sulfate (Iron) 325 mg (65 mg iron) Tablet Active 1 TAB PO Daily July 13, 2017 12:00am ferrous sulfate, 325 mg ferrous sulfate, tablet Take 65 mg by mouth once daily. Active take 1 tablet by ho th every twenty-four hours Iron 325 (65 Fe) MG 1 tablet Orally Once a day Active fexofenadine hydrochloride 180 mg oral tablet (11 sources) Histamine-1 Receptor Antagonist Start: 11-24-2023 take 1 tablet by mouth once daily Fexofenadine (Ramona Hives) 180 mg tablet Active 180 MG PO Daily November 24, 2023 1:00am Start: 04-08-2020 take 1 mg by mouth once daily fexofenadine 180 mg Tab mg tab(s), Oral, Daily, Refills(s) 0 Start Date: 04/08/20 Status: Ordered take 1 tablet by ho th every twenty-four hours Fexofenadine HCl 60 MG 1 tablet Orally once a day Active finasteride 5 mg oral tablet (20 sources) 5-alpha Reductase Inhibitor Start: 12-15-2021 take 1 tablet by mouth once daily finasteride 5 mg Tab 5 mg = 1 tab(s), Oral, Daily, # 90 tab(s), Refills(s) 3, Pharmacy: [facility], 178, cm, 05/04/22 12:45:00 EDT, Height/Length Dosing, 76, kg, 05/04/22 12:45:00 EDT, Weight Dosing Start Date: 11/26/22 Status: Ordered furosemide 20 mg oral tablet (18 sources) Loop Diuretic Start: 04-08-2020 take 20 mg by mouth once daily Furosemide Active 20 MG PO Daily November 24, 2023 1:00am 1 ml HYDROmorphone hydrochloride 1 mg/ml cartridge (1 source) Opioid Agonist Start: 10-28-2023 HYDROmorphone (Dilaudid) injection 0.5 mg hydroxychloroquine sulfate 200 mg oral tablet (20 [...] ON YEARLY EYE EXAM FOR MEDICATION TOXICITY. Active Iron (10 sources) Start: 04-02-2014 Patrick Iron Refil ls(s) 0 Start Date: 04/02/14 Status: Ordered Iron Not-Taking Iron Active leflunomide 20 mg oral tablet (20 sources) Antirheumatic Agent Start: 01-19-2024 take 20 mg by mouth every other day Leflunomide Active 20 MG PO .qod January 19, 2024 8:07am Start: 04-08-2020 take 1 mg by mouth once daily leflunomide 20 mg Tab mg tab(s), Oral, Daily, Refills(s) 0 Start Date: 04/08/20 Status: Ordered Start: 07-13-2017 End: 01-19-2024 take 20 g by mouth once daily Leflunomide Discontinued 20 GM PO Daily July 13, 2017 12:00am January 19, 2024 8:12am lisinopril 40 mg oral tablet (1 source) Angiotensin Converting Enzyme Inhibitor Start: 04-02-2014 Prinivil 40 mg oral tablet Refills(s) 0 Start Date: 04/02/14 Status: Ordered losartan potassium 50 mg oral tablet (20 sources) Angiotensin 2 Receptor Amador Start: 07-13-2017 End: 10-26-2023 take 50 mg by mouth once daily Losartan Active 50 MG PO Daily July 13, 2017 12:00am 1 ml meperidine hydrochloride 50 mg/ml injection (1 source) Opioid Agonist Start: 10-28-2023 meperidine PF (Demerol) injection 12.5 mg 24 hr metoprolol succinate 50 mg extended release oral tablet (20 sources) beta-Adrenergic Amador Start: 01-19-2024 take 100 mg by mouth once daily Metoprolol Succinate Active 100 MG PO Daily January 19, 2024 8:09am Start: 11-24-2023 End: 01-19-2024 take 50 mg by mouth once daily Metoprolol Succinate Di scontinued 50 MG PO Daily 90 90 December 13, 2023 6:13pm January 19, 2024 8:12am Start: 07-13-2017 End: 01-19-2024 take 25 mg by mouth once daily Metoprolol Succinate Di scontinued 25 MG PO Daily July 13, 2017 12:00am January 19, 2024 8:09am take 2 tablets by [facility] every twenty-four hours Metoprolol Succinate ER 50 MG 2 tablet Orally Once a day Active Nitro 0.4 mg Tab (1 source) Start: 04-11-2021 Nitro 0.4 mg T ab = 1 tab(s), SubLingual, q5min, PRN Chest pain, # 25 tab(s), Refills(s) 3 Start Date: 04/11/21 Status: Ordered nitroglycerin 0.4 mg sublingual tablet (15 sources) Nitrate Vasodilator Start: 01-19-2024 Nitroglyce rin (Nitrostat) 0.4 mg tablet, sublingual Active 0.4 MG SUBLINGUAL As Directed January 19, 2024 12:00am Start: 04-11-2021 Nitro 0.4 mg T ab = 1 tab(s), SubLingual, q5min, PRN Chest pain, # 25 tab(s), Refills(s) 3 Start Date: 04/11/21 Status: Ordered 2 ml ondansetron 2 mg/ml injection (1 source) Serotonin-3 Receptor Antagonist Start: 10-28-2023 ondansetron (Zofran) injection 4 mg oxyCODONE hydrochloride 5 mg oral tablet (1 source) Opioid Agonist Start: 10-28-2023 take 1 tablet by mouth every four hours as needed oxyCODONE (Roxicodone) immediate release tablet 5 mg promethazine (Phenergan) 6.25 mg in sodium chloride 0.9% 50 mL IV (1 source) Start: 10-28-2023 promethazine (Phenergan) 6.25 mg in sodium chloride 0.9% 50 mL IV purified protein derivative of tuberculin 50 unt/ml injectable solution (12 sources) Tuberculosis Skin Test, Skin Test Antigen sennosides, assisted 8.6 mg oral tablet (6 sources) Start: 10-28-2023 End: 11-07-2023 take 1 tablet by mouth once daily sennosides (Senokot) 8.6 mg tablet Indications: Malignant melanoma of forehead (CMS/HCC) , Post-op pain Take 1 tablet (8.6 mg) by mouth once daily for 10 days. 10 tablet 0 10/28/2023 11/07/2023 Active spironolactone 25 mg oral tablet (20 sources) Aldosterone Antagonist Start: 12-21-2023 take 1 tablet by mouth once daily Spironolactone Active 0 .ROUTE .COMPLEX 90 December 21, 2023 4:05pm Take 1 tablet by mouth once daily Start: 11-24-2023 End: 12-21-2023 take 25 mg by mouth once daily Spironolactone Discontinued 25 MG PO Daily November 24, 2023 1:00am December 21, 2023 4:05pm Start: 04-11-2021 take 1 mg by mouth t wice daily spironolactone 25 mg Tab mg tab(s), Oral, BID, Refills(s) 0 Start Date: 04/11/21 Status: Ordered terbinafine hydrochloride 10 mg/ml topical cream (5 sources) Allylamine Antifungal Start: 03-31-2023 Terbinafine HCl 1 % 1 application Externally twice daily for 14 days Mar, Active Start: 03-31-2023 Terbinafine HC l 1 % 1 application Externally twice daily for 14 days Mar, Active Start: 03-31-2023 Terbinafine HC l 1 % 1 application Externally twice daily for 14 days Mar, Active traMADol hydrochloride 50 mg oral tablet (9 sources) Opioid Agonist Start: 10-28-2023 End: 10-28-2023 take 1 tablet by mouth every six hours for pain traMADol (Ultram) 50 mg tablet Indications: Malignant melanoma of forehead (Multi) , Post-op pain Take 1 tablet (50 mg) by mouth every 6 hours if needed for severe pain (7 - 10). 10 tablet 10/28/2023 Active vitamin b12 1 mg/ml injectable solution (20 sources) Vitamin B12 take 1 tablet by mouth every twenty-four hours Vitamin B12 1000 MCG [...] Drug Class(es) Dates Sig (Normalized) Sig (Original) aspirin 81 mg delayed release oral tablet (12 sources) Platelet Aggregation Inhibitor, Nonsteroidal Anti-inflammatory Drug Start: 07-13-2017 End: 01-19-2024 take 1 tablet by mouth once daily Aspirin (Aspir-81) 81 mg Tablet,Delayed Release (Dr/Ec) Discontinued 81 MG PO Daily July 13, 2017 12:00am January 19, 2024 8:11am Start: 04-02-2014 aspirin Refill s(s) 0 Start Date: 04/02/14 Status: Ordered doxycycline hyclate 100 mg oral capsule (6 sources) Tetracycline-class Drug Start: 01-22-2023 take 1 capsule by mouth twice daily Doxycycline Hyclate 100 MG 1 capsule Orally twice daily for 7 days Jan, Not-Taking hydroCHLOROthiazide 25 mg oral tablet (12 sources) Thiazide Diuretic Start: 07-13-2017 End: 11-24-2023 take 25 mg by mouth once daily Hydrochlorothiazide Discontinued 25 MG PO Daily July 13, 2017 12:00am November 24, 2023 9:31am labetalol hydrochloride 5 mg/ml injectable solution (1 source) beta-Adrenergic Amador Start: 10-28-2023 End: 10-28-2023 labetaloL (Normodyne,Trandate) injection 5 mg mecobalamin 1 mg chewable tablet (5 sources) Start: 11-24-2023 End: 01-19-2024 take 1000 ug by mouth once daily Mecobalamin (Vitamin B12) Discontinued 1000 MCG PO Daily November 24, 2023 1:00am January 19, 2024 8:11am Bb-72n-flkxqbuaqcq (Lymphoseek) injection 0.992 millicurie (2 sources) Start: 10-28-2023 End: 10-28-2023 Hu-75h-wkequgroten (Lymphoseek) injection 0.992 millicurie triamcinolone acetonide 40 mg/ml injectable suspension (13 sources) Corticosteroid Start: 01-06-2023 Kenalog-40 May, 60 mg Vitamin D3 5000 intl units oral capsule (2 sources) Start: 04-08-2020 take 1 capsule by mouth once daily at mealtime Vitamin D3 5000 intl units oral capsule 5,000 International_Unit = 1 cap(s), Oral, Daily, with food, # 100 cap(s), Refills(s) 0 Start Date: 04/08/20 Status: Ordered Payers Date Payer Category Payer Unknown [employer]LE[employer] P [id number] 2016-Present [address] [place] [address] [id number] 2002 Medicare MEDICARE MEDICAR E PART A AND B [id number] 2002-Present [address] [place] [address] [id number] 1959 Medicare [id number] 1959 Self-pay [id number] 1959 Unknown [id number] 1937 Unknown [id number] 2.16.840.1.595520.3.579.2.647 1937 Unknown [id number] 2.16.840.1.113946.3.579.2.593 1937 Unknown [id number] 2.16.840.1.218100.3.579.2.593 1937 Unknown [id number] 2.16.840.1.337832.3.579.2.593 1937 Unknown [id number] 2.16.840.1.076210.3.579.2.593 1937 Unknown [id number] 2.16.840.1.203633.3.579.2.593 1937 Unknown [id number] 2.16.840.1.570556.3.579.2.593 1937 Unknown [id number] 2.16.840.1.504626.3.579.2.593 1937 Unknown [id number] 2.16.840.1.599858.3.579.2.593 1937 Unknown [id number] 2.16.840.1.717093.3.579.2.593 1937 Unknown [id number] 2.16.840.1.984982.3.579.2.593 1937 Unknown [id number] 2.16.840.1.453937.3.579.2.593 1937 Unknown [id number] 2.16.840.1.759042.3.579.2.593 1937 Unknown [id number] 2.16.840.1.197709.3.579.2.593 1937 Unknown [id number] 2.16.840.1.887230.3.579.2.593 1937 Unknown [id number] 2.16.840.1.070485.3.579.2.593 1937 Unknown [id number] 2.16.840.1.295536.3.579.2.593 1937 Unknown [id number] 2.16.840.1.464069.3.579.2.593 1937 Unknown [id number] 2.16.840.1.429349.3.579.2.593 1937 Unknown [id number] 2.16.840.1.976902.3.579.2.727 1937 Unknown [id number] 2.16.840.1.851130.3.579.2.727 1937 Unknown [id number] 2.16.840.1.469909.3.579.2.124 3 1937 Unknown [id number] 2.16.840.1.828269.3.579.2.124 3 1937 Unknown [id number] 2.16.840.1.922377.3.579.2.124 3 1937 Unknown [id number] 2.16.840.1.569974.3.579.2.124 4 1937 Unknown [id number] 2.16.840.1.351430.3.579.2.124 4 1937 Unknown [id number] 2.16.840.1.259714.3.579.2.124 4 1937 Unknown [id number] 2.16.840.1.367763.3.579.2.124 4 1937 Unknown [id number] 2.16.840.1.805592.3.579.2.125 9 Unknown [id number] 2.16.840.1.870565.3.579.2.593 Unknown [id number] 2.16.840.1.871638.3.579.2.531 Unknown [id number] 2.16.840.1.394178.3.579.2.531 Unknown [id number] 2.16.840.1.626797.3.579.2.531 Unknown [id number] 2.16.840.1.265333.3.579.2.531 Unknown [id number] 2.16.840.1.373509.3.579.2.531 Unknown [id number] 2.16.840.1.079453.3.579.2.531 Plan of Treatment Date Care Activity Detail Author Start: 07-24-2024 End: 07-24-2024 Patient encounter procedure 07/24/2024 3:30 PM EDT Office Visit [address] Garcia [address] [address] [place] [address] [address] [place] [address] [facility] Start: 01-17-2024 End: 01-17-2024 Patient encounter procedure 01/17/2024 3:30 PM EDT Office Visit [address] Garcia [address] [place] [id number] [place] [address] [address] [place] [address] [facility] Start: 11-08-2023 End: 11-08-2024 PT Unspecified body region NM PET CT melanoma restaging Imaging Routine Malignant melanoma of forehead (CMS/HCC) Expected: 11/08/2023, Expires: 11/08/2024 [facility] Service Area Work Phone: Comment on above: Expected: 11/08/2023 , Expires: 11/08/2024 Start: 10-28-2023 End: 10-28-2023 Admission to same day surgery center 10/28/2023 11:00 AM EST - 10/28/2023 2:35 PM EST Surgery [facility] [place] [address] [place] [phone] [place] [address] [address] [place] [address] ( sln inj @ 7:00 am ) Excision Lesion Skin Head/Neck [[id number] (CPT )] [facility] [place] Comment on above: ( sln inj @ 7:00 am ) Excision Lesion Skin Head/Neck [[id number] (CPT )] Start: 10-28-2023 End: 10-28-2023 Ct [...] physician 10/28/2023 9:30 AM EST Hospital Encounter [facility] [place] [address] [place] [address] [place] [address] [address] [place] [address] [facility] [place] Start: 10-28-2023 End: 10-28-2023 Patient encounter procedure 10/28/2023 7:00 AM EST Appointment [facility] [address] [place] [address] [facility] Start: 10-08-2023 End: 10-08-2024 NM Lymphatic vessels Views W radionuclide intra lymphatic NM lymphoscintigram Imaging Routine Malignant melanoma of forehead (CMS/HCC) Expected: 10/08/2023, Expires: 10/08/2024 [facility] Work Phone: Comment on above: Expected: 10/08/2023 , Expires: 10/08/2024 Start: 10-08-2023 End: 10-08-2024 Request for Pre-Admission Testing Visit Request for Pre-Admission Testing Visit Procedures Routine Malignant melanoma of forehead (CMS/HCC) Expected: 10/08/2023 (Approximate), Expires: 10/08/2024 [facility] Service Area Work Phone: Comment on above: Expected: 10/08/2023 (Approximate), Expires: 10/08/2024 Start: 06-04-2023 COVID-19 Vaccine ( season) COVID-19 Vaccine ( season) [facility] Start: 06-04-2023 Influenza vaccination Influenza Vacc ine (#1) [facility] Start: 09-30-2022 COVID-19 Vaccine (5 - Moderna series) COVID-19 Vaccine (5 - Moderna series) [facility] Start: 07-20-2022 [facility] Start: 10-04-2019 Pneumococcal Vaccine : 65+ Years (2 - PPSV23 or PCV20) Pneumococcal Vaccine: 65+ Years (2 - PPSV23 or PCV20) [facility] Start: 06-04-2019 Influenza vaccination INFLUENZA VACC INE (#1) [facility] Start: 06-17-2013 DTaP/Tdap/Td Vaccine s (1 - Tdap) DTaP/Tdap/Td Vaccines (1 - Tdap) [facility] Start: 2002 Pneumococcal vaccination PNEUMOCOCCAL VACCINE SERIES (1 of 2 - PCV13) [facility] Start: 1987 Colonoscopy COLON CANCER S CREENING DISCUSSION [facility] Start: 1987 Zoster vaccine hzv l cathryn for subcutaneous use ZOSTER (SHINGLES) VACCINE (1 of 2) [facility] Start: 1987 Zoster Vaccines (1 o f 2) Zoster Vaccines (1 of 2) [facility] Start: 1959 DTaP/Tdap/Td Vaccine s (1 - Tdap) DTaP/Tdap/Td Vaccines (1 - Tdap) [facility] Start: 1956 Third diphtheria, tetanus and acellular pertussis (DTaP) vaccination TDAP (ADULT) [facility] Start: 1955 Diabetes mellitus screening Diabetes Screening [facility] Start: 1955 Tetanus vaccination TETANUS [facility] Start: 02-01-1938 Examination of skin Derm Melanoma Sk in Check [facility] Start: 1937 Lipid panel Lipid Panel [facility] Start: 1937 Medicare Annual Wellness Visit Medicare Annual Wellness Visit (AWV) [facility] Comprehensive metabo lic 1999 panel - Serum or Plasma [facility] Comprehensive metabo lic 1999 panel - Serum or Plasma [facility] End: 10-28-2023 Continuous Pulse oximetry, In Phase 1 Continuous Pulse oximetry, In Phase 1 Respiratory Care Routine Continuous until discontinued starting 10/28/2023 [facility] Service Area Work Phone: Comment on above: Continuous until dis continued starting 10/28/2023 CT Abdomen and Pelvi s W contrast IV [facility] CT Chest [facility] CT Head WO and W contrast IV [facility] CT Neck W contrast IV [facility] Dermatopathology- DE RM LAB [facility] Service Area Work Phone: Comment on above: Release Upon Orderin g for 1 Occurrences starting 10/28/2023 Jbdzowj-5-Uhgiuullx dehydrogenase [Enzymatic activity/mass] in Red Blood Cells [facility] Work Phone: Measurement of total hemoglobin concentration [facility] Work Phone: End: 10-28-2023 NM Spect/CT Localization add on Single Day [facility] Service Area Work Phone: Comment on above: Once for 1 Occurrenc es starting 10/28/2023 until 10/28/2023 US Extremity [facility] Problems Active Problems Problem Classification Problem Date Documented Da te Episodic/Chronic Acute bronchitis (1 source) Acute bronchitis due to other specified organisms Episodic Administrative/social admission (12 sources) Patient encounter status; Translations: [Other specified counseling] 11-24-2023 Episodic Cancer of prostate (11 sources) Carcinoma [...] Chronic Complication of device; implant or graft (2 sources) Atherosclerosis of coronary artery bypass graft(s), unspecified, with other forms of angina pectoris; Translations: [Atherosclerosis of coronary artery bypass graft(s), unspecified, with other forms of angina pectoris] Onset: 2 Chronic Complication of device; implant or graft (11 sources) Stenosis of other cardiac prosthetic devices, implants and grafts, initial encounter; Translations: [Stenosis of other cardiac prosthetic devices, implants and grafts, initial encounter] Episodic Conduction disorders (20 sources) H/O: cardiac pacemaker in situ; Translations: [Presence of cardiac pacemaker] Onset: 2 Chronic Congestive heart failure; nonhypertensive (10 sources) Chronic systolic (congestive) heart failure; Translations: [Chronic systolic heart failure] Onset: 9 Chronic Coronary atherosclerosis and other heart disease (20 sources) Coronary arteriosclerosis; Translations: [Generalized ischemic myocardial dysfunction] Onset: 2 03-28-2020 Chronic Deficiency and other anemia (13 sources) Iron deficiency anemia; Translations: [Iron deficiency anemia, unspecified] 01-19-2024 Episodic Deficiency and other anemia (4 sources) Anemia; Translations: [Anemia, unspecified] Onset: 4 01-16-2024 Episodic Deficiency and other anemia (2 sources) Anemia, unspecified; Translations: [Anemia, unspecified] 01-19-2024 Episodic Disorders of lipid metabolism (20 sources) Hyperlipidemia; Translations: [Pure hypercholesterolemia] Onset: 0 03-28-2020 Chronic Essential hypertension (20 sources) Hypertensive disorder; Translations: [Essential (primary) hypertension] Onset: 2 03-28-2020 Chronic Fluid and electrolyte disorders (9 sources) Hypokalemia; Translations: [Hypokalemia] Episodic Fracture of upper limb (3 sources) Displaced fracture of lateral end of right clavicle, initial encounter for closed fracture; Translations: [Closed fracture of acromial end of clavicle] Onset: 2 Resolved: 2 Episodic Gastrointestinal hemorrhage (11 sources) Rectal hemorrhage; Translations: [Hemorrhage of anus [...] left non-dominant side] Chronic Melanomas of skin (20 sources) Malignant melanoma of forehead; Translations: [Malignant [...] sources) Long-term current use of anticoagulant; Translations: [extermination supervisor (current) use of anticoagulants] Episodic Other aftercare (5 sources) extermination supervisor (current) use of anticoagulants; Translations: [RETIREMENT CURRNT USE ANTICOAGULANTS] Onset: 3 Episodic Other aftercare (5 sources) Encounter for therapeutic drug level monitoring; Translations: [ENC THERAPEUTC DRUG LEVL MONITORING] Onset: 3 Episodic Other aftercare (2 sources) Other ocean transportation intermediary (current) drug therapy; Translations: [OTH ORTHOPEDIC NURSE PRACTITIONER CURRENT DRUG THERAPY] Onset: 2 Episodic Other aftercare (2 sources) Long-term current use of drug therapy; Translations: [Other halfway (current) drug therapy] Episodic Other circulatory disease [...] Episodic Other diseases of veins and lymphatics (12 sources) Peripheral venous insufficiency; Translations: [Venous insufficiency (chronic) (peripheral)] 01-19-2024 Episodic Other diseases of veins and lymphatics [...] 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 Other eye disorders (1 source) Ptosis of right eyebrow; Translations: [Brow ptosis, right] 01-17-2024 Episodic Other eye disorders (1 source) Dermatochalasis of right upper eyelid; Translations: [Dermatochalasis of right upper eyelid] 01-17-2024 Episodic Other fractures (2 sources) Closed fracture of multiple right ribs; Translations: [Multiple fractures of ribs, right side, initial encounter for closed fracture] Episodic Other gastrointestinal disorders (2 sources) H/O: gastrointestinal disease; Translations: [Personal history of other diseases of the digestive system] Episodic Other nervous system disorders (1 source) Postoperative pain ; Translations: [Other acute postprocedural pain] 10-28-2023 Episodic Other nervous system disorders (2 sources) Other acute postprocedural pain; Translations: [Other acute postprocedural pain] Onset: 4 Episodic Other non-traumatic joint disorders (10 sources) [...] unspecified] Chronic Rheumatoid arthritis and related disease (20 sources) Rheumatoid arthritis; Translations: [Rheumatoid arthritis without rheumatoid factor, right wrist] Onset: 4 03-28-2020 Chronic Skin and subcutaneous tissue infections [...] OF COVID-19] Onset: 2 Unclassified (2 sources) New Patient Visit; Translations: [New Patient Visit] Onset: 4 Unclassified (1 source) Rheumatoid arthritis with rheumatoid factor of multiple sites without organ or systems involvement; Translations: [Rheumatoid arthritis with rheumatoid factor of multiple sites without organ or systems involvement] Onset: 3 Unclassified (2 sources) Other persistent atrial fibrillation; Translations: [Other persistent atrial fibrillation] Onset: 2 Viral infection (2 sources) Disease caused by 2019-nCoV; Translations: [COVID-19] Past or Other Problems Problem Classification Problem Date Documented Date Episodic/Chronic Acute posthemorrhagic anemia (2 sources) Acute posthemorrhagic anemia; Translations: [Acute posthemorrhagic anemia] Onset: 06-30-2017 Episodic Coronary atherosclerosis and other heart disease (1 source) Presence of coronary angioplasty implant and graft; Translations: [PRESENCE COR 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] Onset: 05-06-2022 Episodic Neoplasms of unspecified nature or uncertain [...] ABSENCE OTH GENITAL ORGANS] Onset: 05-06-2022 Episodic Unclassified (1 source) CONTACT W/AND (SUSP) EXPOS COVID-19; Translations: [CONTACT W/AND (SUSP) EXPOS COVID-19] Onset: 01-22-2023 Unclassified (9 sources) Onset: 10-08-2023 Resolved: 01-17-2024 10-08-2023 Procedures Date Procedure Procedure Detail Performing Clinician Start: 03-14-2024 Ultrasonography of limb DO Steve De Paz Work Phone: Start: 11-29-2023 CT of head with contrast DO Steve De Paz Work Phone: Start: 11-19-2023 Positron emission to mography with computed tomography DO Steve De Paz Work Phone: Start: 10-28-2023 DERMPATH LAB- DERMATOPATHOLOGY ELKIN HOLLY Start: 10-28-2023 NM SPECT/CT LOCALIZA TION ADD ON SINGLE DAY ELKIN HOLLY Start: 10-28-2023 NM LYMPHOSCINTIGRAM RAMAN ON Start: 10-28-2023 DISCHARGE PATIENT ELKIN HOLLY Start: 10-28-2023 Lymphatics & lymph n odes imaging Elkin Holly MD Work Phone: Start: 04-07-[address] YEIMI WINTER . Comment on above: Performed By: #### P SAD #### [facility] [address] [place] [address] Dr. Robb Martin Start: 04-07-2019 Electrocardiogram Other Other Start: 04-07-2019 IMPLANT RECORD (OUTSIDE) Other Other Start: 03-15-2019 OUTSIDE PROCEDURES Othe r Other Start: 03-02-2019 Echocardiography Other Other Start: 02-24-2019 OUTSIDE PROCEDURES Othe r Other Start: 02-08-2019 Electrocardiogram Other Other Start: 12-16-2018 OUTSIDE PROCEDURES Othe r Other Start: 09-29-2018 ULTRASOUND (OUTSIDE) Ot her Other Start: 12-23-2015 Screening for malign ant neoplasm of colon Steve De Paz Other Start: 08-27-2014 Cystoscopy Cristela ZUNIGA Start: 05-04-2012 Implantation of card iac pacemaker Cristela WINTRE Start: 10-09-2008 Brachytherapy Cristela CARO Start: 08-08-2008 Transrectal biopsy o f prostate using ultrasound guidance Cristela WINTER Start: 11-22-2007 Laser ablation of prostate Cristela WINTER Start: 10-25-2007 Cystoscopy Cristela ZUNIGA Start: 10-25-2007 Urodynamic studies Patr michelle WINTER Start: 09-20-2007 Transrectal biopsy o f prostate using ultrasound guidance Cristela WINTER Coronary artery bypa ss grafts x 4 Cristela WINTER Extraction of cataract Marivel WINTER Procedure on back Cristela ZUNIGA Results Test Name Value Interpretation Reference Range Facility Alanine aminotransferase [En zymatic activity/volume] in Serum or PlasmaOrdered By: Adilene Weinberg on 03-14-2024 ALT [Catalytic activity/Vol] 18 U/L Normal 7-52 [facility] Comment on above: Performed By: #### L DH, CBC, CMP #### [facility] [address] [place] [address] [place] Albumin [Mass/volume] in Ser um or Plasma by Bromocresol green (BCG) dye binding methoOrdered By: Adilene Weinberg on 03-14-2024 Albumin BCG dye [Mass/Vol] 4.3 g/dL 3.5-5.7 [facility] Alkaline phosphatase [Enzyma tic activity/volume] in Serum or PlasmaOrdered By: Adilene Weinberg on 03-14-2024 ALP [Catalytic activity/Vol] 85 U/L Normal 34-104 [facility] Comment on above: Performed By: #### L DH, CBC, CMP #### [facility] [address] [place] [address] [place] Aspartate aminotransferase [ Enzymatic activity/volume] in Serum or PlasmaOrdered By: Adilene Weinberg on 03-14-2024 AST [Catalytic activity/Vol] 17 U/L Normal 13-39 [facility] Comment on above: Performed By: #### L DH, CBC, CMP #### [address] Automated basophil %Ordered By: Adilene Weinberg on 03-14-2024 Basophils/100 WBC (Bld) 0.8 % Normal . [facility] Comment on above: Performed By: #### L DH, CBC, CMP #### [address] Automated basophil countOrde red By: Adilene Weinberg on 03-14-2024 Basophils (Bld) [#/Vol] 0.0 10*3/uL Normal 0.0-0.2 [facility] Comment on above: Result Comment: PERF ORMED BY: [place] [address] PATHOLOGIST INSTRUCTIONAL SUPPORT SERVICES DIRECTOR NIYA BARRERA M.D. Performed By: #### L DH, CBC, CMP #### [address] Automated blood monocyte cou ntOrdered By: Adilene Weinberg on 03-14-2024 Monocytes (Bld) [#/Vol] 0.8 10*3/uL Normal 0.0-0.8 [facility] Comment on above: Performed By: #### L DH, CBC, CMP #### [address] Automated eosinophil %Ordere d By: Adilene Weinberg on 03-14-2024 Eosinophils/100 WBC (Bld) 2.1 % Normal . [facility] Comment on above: Performed By: #### L DH, CBC, CMP #### [address] Automated eosinophil countOr dered By: Adilene Weinberg on 03-14-2024 Eosinophils (Bld) [#/Vol] 0.1 10*3/uL Normal 0.0-0.45 [facility] Comment on above: Performed By: #### L DH, CBC, CMP #### [address] Automated monocyte %Ordered By: Adilene Weinberg on 03-14-2024 Monocytes/100 WBC (Bld) 12.8 % Normal . [facility] Comment on above: Performed By: #### L DH, CBC, CMP #### [address] Automated neutrophil %Ordere d By: Adilene Weinberg on 03-14-2024 Neutrophils/100 WBC (Bld) 72.6 % Normal . [facility] Comment on above: Performed By: #### L DH, CBC, CMP #### [facility] [address] Bilirubin.total [Mass/volume ] in Serum or PlasmaOrdered By: Adilene Weinberg on 03-14-2024 Bilirubin [Mass/Vol] 0.6 mg/dL Normal 0.3-1.0 [facility] Comment on above: Performed By: #### L DH, CBC, CMP #### [address] Calcium [Mass/volume] in Ser um or PlasmaOrdered By: Adilene Weinberg on 03-14-2024 Calcium [Mass/Vol] 9.4 mg/dL Normal 8.6-10.3 [facility] Comment on above: Performed By: #### L DH, CBC, CMP #### [address] Carbon dioxide, total [Moles /volume] in Serum or PlasmaOrdered By: Adilene Weinberg on 03-14-2024 CO2 [Moles/Vol] 31.8 mmol/L High 21.0-31.0 [facility] Comment on above: Performed By: #### L DH, CBC, CMP #### [place] [address] [place] Chloride [Moles/volume] in S boby or PlasmaOrdered By: Adilene Weinberg on 03-14-2024 Chloride [Moles/Vol] 105 mmol/L Normal 98-107 [facility] Comment on above: Performed By: #### L DH, CBC, CMP #### [address] Complete Blood Count Auto Di ffon 03-14-2024 Mean Corpuscular HGB Conc 34.0 g/dL Normal 32.5-35.6 [facility] Comment on above: Performed By: #### L DH, CBC, CMP #### [address] NRBC% 0.1 /100{WBC} Normal 0-0.5 [facility] Comment on above: Performed By: #### L DH, CBC, CMP #### [address] Comprehensive Metabolic Pane huan 03-14-2024 Albumin [Mass/Vol] 4.3 g/dL Normal 3.5-5.7 [facility] Comment on above: Performed By: #### L DH, CBC, CMP #### [address] Creatinine Clr Calc Pharmacy 51.65 Normal [facility] Comment on above: Performed By: #### L DH, CBC, CMP #### [address] GFR/1.73 sq M.predicted MDRD (S/P/Bld) [Vol rate/Area] mL/min/{1.73_m2} Normal [facility] Comment on above: Performed By: #### L DH, CBC, CMP #### [address] Creatinine [Mass/volume] in Serum or PlasmaOrdered By: Adilene Weinberg on 03-14-2024 Creatinine [Mass/Vol] 1.06 mg/dL Normal 0.70-1.30 [facility] Comment on above: Performed By: #### L DH, CBC, CMP #### [facility] [address] [place] [address] Erythrocyte distribution wid th [Ratio] by Automated countOrdered By: Adilene Weinberg on 03-14-2024 Erythrocyte distribution width (RBC) [Ratio] 15.4 % High 12.0-14.8 [facility] Comment on above: Performed By: #### L DH, CBC, CMP #### [facility] [address] Erythrocytes [#/volume] in B lood by Automated countOrdered By: Adilene Weinberg on 03-14-2024 RBC (Bld) [#/Vol] 3.12 10*6/uL Low 3.90-5.60 [facility] Comment on above: Performed By: #### L DH, CBC, CMP #### [address] Glucose [Mass/volume] in Ser um or PlasmaOrdered By: Adilene Weinberg on 03-14-2024 Glucose [Mass/Vol] 89 mg/dL Normal 70-100 [facility] Comment on above: ADA recommended refe rence rangeRandom Glucose Reference Range is dependent on time and content of last meal. Glucose of more than 200 mg/dL in a nonstressed, ambulatory subject supports the diagnosis of Diabetes Mellitus. Result Comment: [place] om Glucose Reference Range is dependent on time and content of last meal. Glucose of more than 200 mg/dL in a nonstressed, ambulatory subject supports the diagnosis of Diabetes Mellitus. ADA recommended reference range Performed By: #### L DH, CBC, CMP #### [address] Hematocrit [Volume Fraction] of Blood by Automated countOrdered By: Adilene Weinberg on 03-14-2024 Hematocrit (Bld) [Volume fraction] 28.8 % Low 38.8-50.0 [facility] Comment on above: Performed By: #### L DH, CBC, CMP #### [address] Hemoglobin [Mass/volume] in BloodOrdered By: Adilene Weinberg on 03-14-2024 Hemoglobin (Bld) [Mass/Vol] 9.8 g/dL Low 13.0-17.0 [facility] Comment on above: Performed By: #### L DH, CBC, CMP #### [address] LDH Lactate Dehydrogenaseon 03-14-2024 LDH Lactate Dehydrogenase 205 U/L Normal 140-271 [facility] Comment on above: Result Comment: PERF ORMED BY: [place] [address] PATHOLOGIST INSTRUCTIONAL SUPPORT SERVICES DIRECTOR NIYA BARRERA M.D. Performed By: #### L DH, CBC, CMP #### [facility] [address] [place] [address] [place] Lactate dehydrogenase [Enzym atic activity/volume] in Serum or Plasma by Lactate to pyOrdered By: Adilene Weinberg on 03-14-2024 LDH Lactate to pyruvate reaction [Catalytic activity/Vol] 205 U/L 140-271 [facility] Leukocytes [#/volume] correc bert for nucleated erythrocytes in Blood by Automated counOrdered By: Adilene Weinberg on 03-14-2024 WBC corrected for nucl RBC Auto (Bld) [#/Vol] 6.0 10*3/uL 4.1-10.5 [facility] Leukocytes [#/volume] in Blo od by Automated countOrdered By: Adilene Weinberg on 03-14-2024 WBC (Bld) [#/Vol] 6.0 10*3/uL Normal 4.1-10.5 [facility] Comment on above: Performed By: #### L DH, CBC, CMP #### [facility] [address] [place] [address] [place] Lymphocytes [#/volume] in Bl ood by Automated countOrdered By: Adilene Weinberg on 03-14-2024 Lymphocytes (Bld) [#/Vol] 0.7 10*3/uL Low 1.00-4.8 [facility] Comment on above: Performed By: #### L DH, CBC, CMP #### [facility] [address] [place] [address] [place] Lymphocytes/100 leukocytes i n Blood by Automated countOrdered By: Adilene Weinberg on 03-14-2024 Lymphocytes/100 WBC (Bld) 11.7 % Normal . [facility] Comment on above: Performed By: #### L DH, CBC, CMP #### [facility] [address] [place] [address] [place] MCH [Entitic mass] by Automa bert countOrdered By: Adilene Weinberg on 03-14-2024 MCH (RBC) [Entitic mass] 31.4 pg Normal 27.5-35.2 [facility] Comment on above: Performed By: #### L DH, CBC, CMP #### [facility] [address] [place] [address] MCHC Auto (RBC) [Mass/Vol]Or dered By: Adilene Weinberg on 03-14-2024 MCHC (RBC) [Mass/Vol] 34.0 g/dL 32.5-35.6 [facility] MCV [Entitic volume] by Auto mated countOrdered By: Adilene Weinberg on 03-14-2024 MCV (RBC) [Entitic vol] 92.2 fL Normal 83.5-101 [facility] Comment on above: Performed By: #### L DH, CBC, CMP #### [address] Neutrophils [#/volume] in Bl ood by Automated countOrdered By: Adilene Weinberg on 03-14-2024 Neutrophils (Bld) [#/Vol] 4.3 10*3/uL Normal 1.8-7.7 [facility] Comment on above: Performed By: #### L TYLER, CBC, CMP #### [facility] [address] [place] [address] No Panel InformationOrdered By: Adilene Weinberg on 03-14-2024 Estimated GFR (CKD-EPI) > 60.0 mL/Min [facility] Creatinine Clearance (Chem 51.65 [facility] Nucleated erythrocytes [Pres ence] in Blood by Automated countOrdered By: Adilene Weinberg on 03-14-2024 Nucleated RBC Auto Ql (Bld) 0.1 /100{WBC} 0-0.5 [facility] Platelet mean volume [Entiti c volume] in Blood by Automated countOrdered By: Adilene Weinberg on 03-14-2024 Platelet mean volume (Bld) [Entitic vol] 8.1 fL Normal 6.6-10.1 [facility] Comment on above: Performed By: #### L DH, CBC, CMP #### [facility] [address] [place] [address] Platelets [#/volume] in Bloo d by Automated countOrdered By: Adilene Weinberg on 03-14-2024 Platelets (Bld) [#/Vol] 145 10*3/uL Low 150-450 [facility] Comment on above: Performed By: #### L TYLER, CBC, CMP #### [address] Potassium [Moles/volume] in Serum or PlasmaOrdered By: Adilene Weinberg on 03-14-2024 Potassium [Moles/Vol] 3.9 mmol/L Normal 3.5-5.1 [facility] Comment on above: Performed By: #### L TYLER, CBC, CMP #### [address] Protein [Mass/volume] in Ser um or PlasmaOrdered By: Adilene Weinberg on 03-14-2024 Protein [Mass/Vol] 6.3 g/dL Low 6.4-8.9 [facility] Comment on above: Performed By: #### L TYLER, CBC, CMP #### [address] Serum globulin measurement b y calculation (mass/volume)Ordered By: Adilene Weinberg on 03-14-2024 Globulin (S) [Mass/Vol] 2.0 g/dL Normal [facility] Comment on above: Performed By: #### L TYLER, CBC, CMP #### [facility] [address] [place] [address] Serum or plasma albumin/glob ulin mass ratioOrdered By: Adilene Weinberg on 03-14-2024 Albumin/Globulin [Mass ratio] 2.2 {ratio} Normal [facility] Comment on above: Performed By: #### L TYLER, CBC, CMP #### [facility] [address] [place] [address] Serum or plasma anion gap de terminationOrdered By: Adilene Weinberg on 03-14-2024 Anion gap [Moles/Vol] 8.1 mmol/L Normal 6.0-15.0 [facility] Comment on above: Performed By: #### L TYLER, CBC, CMP #### [facility] [address] [place], [place] [id number] [facility] Sodium [Moles/volume] in Ser um or PlasmaOrdered By: Adilene Weinberg on 03-14-2024 Sodium [Moles/Vol] 141 mmol/L Normal 136-145 [facility] Comment on above: Performed By: #### L TYLER, CBC, CMP #### [facility] [address] [place], [place] [id number] [facility] US extremity nonvascularon 0 03-14-2024 US extremity nonvascular [facility] [place] [address] [place], [place] [id number] Ultrasound Report Signed Patient: Nelly Hannon MR#: [id number] 0 : 1935 Acct:[id number] Age/Sex: 88 / M ADM Date: 03/14/24 Loc: Room: Type: [facility] Attending Dr: Adilene Weinberg MD Ordering Provider: Adilene Weinebrg MD Date of Service: 03/14/24 US/US extremity nonvascular: [place] Melanoma Copies to: Adilene Weinberg MD Soft tissue ultrasound. Reason for exam: Malignant melanoma of the head. COMPARISON: None. TECHNIQUE: Grayscale and color Doppler images of the neck were obtained. FINDINGS: Imaging of the right neck demonstrates no suspicious lymph nodes or mass. No fluid collection is seen. US/US extremity nonvascular IMPRESSION: No suspicious abnormality is seen involving the right neck to suggest metastatic disease. Impression dictated by: Festus Silver Jr., D.O.03/14/2024 2:34 PM Dictation Location: [place] [address] Tech: Rachelle Mckenzie Transcribed By: PHYLLIS 03/14/24 1434 Dictated By: Festus Silver Jr, DO 03/14/24 1433 Signed By: 03/14/24 143 Normal [facility] Urea nitrogen [Mass/volume] in Serum or PlasmaOrdered By: Adileen Weinberg on 03-14-2024 Urea nitrogen [Mass/Vol] 14 mg/dL Normal 7-25 [facility] Comment on above: Performed By: #### L TYLER, CBC, CMP #### [facility] [address] Alanine aminotransferase [En zymatic activity/volume] in Serum or PlasmaOrdered By: Michele Arteaga on 12-27-2023 ALT [Catalytic activity/Vol] 30 U/L Normal 7-52 [facility] Comment on above: Performed By: #### C REAT, HEPATIC, ESR, CBC ####[facility] [address] Albumin [Mass/volume] in Ser um or Plasma by Bromocresol green (BCG) dye binding methoOrdered By: Michele Arteaga on 12-27-2023 Albumin BCG dye [Mass/Vol] 4.5 g/dL 3.5-5.7 [facility] Alkaline phosphatase [Enzyma tic activity/volume] in Serum or PlasmaOrdered By: Michele Arteaga on 12-27-2023 ALP [Catalytic activity/Vol] 74 U/L Normal 34-104 [facility] Comment on above: Performed By: #### C REAT, HEPATIC, ESR, CBC ####[place] [id number] [address] Aspartate aminotransferase [ Enzymatic activity/volume] in Serum or PlasmaOrdered By: Michele Arteaga on 12-27-2023 AST [Catalytic activity/Vol] 24 U/L Normal 13-39 [facility] Comment on above: Performed By: #### C REAT, HEPATIC, ESR, CBC ####[address] Automated basophil %Ordered By: Michele Arteaga on 12-27-2023 Basophils/100 WBC (Bld) 0.9 % Normal . [facility] Comment on above: Performed By: #### C REAT, HEPATIC, ESR, CBC ####[address] Automated basophil countOrde red By: Michele Arteaga on 12-27-2023 Basophils (Bld) [#/Vol] 0.0 10*3/uL Normal 0.0-0.2 [facility] Comment on above: Performed By: #### C REAT, HEPATIC, ESR, CBC ####[address] Automated blood monocyte cou ntOrdered By: Michele Arteaga on 12-27-2023 Monocytes (Bld) [#/Vol] 0.5 10*3/uL Normal 0.0-0.8 [facility] Comment on above: Performed By: #### C REAT, HEPATIC, ESR, CBC ####[address] Automated eosinophil %Ordere d By: Michele Arteaga on 12-27-2023 Eosinophils/100 WBC (Bld) 1.9 % Normal . [facility] Comment on above: Performed By: #### C REAT, HEPATIC, ESR, CBC ####[address] Automated eosinophil countOr dered By: Michele Arteaga on 12-27-2023 Eosinophils (Bld) [#/Vol] 0.1 10*3/uL Normal 0.0-0.45 [facility] Comment on above: Performed By: #### C REAT, HEPATIC, ESR, CBC ####[address] Automated monocyte %Ordered By: Michele Arteaga on 12-27-2023 Monocytes/100 WBC (Bld) 11.0 % Normal . [facility] Comment on above: Performed By: #### C REAT, HEPATIC, ESR, CBC ####[address] Automated neutrophil %Ordere d By: Michele Arteaga on 12-27-2023 Neutrophils/100 WBC (Bld) 69.1 % Normal . [facility] Comment on above: Performed By: #### C REAT, HEPATIC, ESR, CBC ####[address] Bilirubin.direct [Mass/volum e] in Serum or PlasmaOrdered By: Michele Arteaga on 12-27-2023 Bilirubin.direct [Mass/Vol] 0.20 mg/dL 0.03-0.18 [facility] Bilirubin.total [Mass/volume ] in Serum or PlasmaOrdered By: Michele Arteaga on 12-27-2023 Bilirubin [Mass/Vol] 0.7 mg/dL Normal 0.3-1.0 [facility] Comment on above: Performed By: #### C REAT, HEPATIC, ESR, CBC ####[address] Complete Blood Count Auto Di ffon 12-27-2023 Mean Corpuscular HGB Conc 32.9 g/dL Normal 32.5-35.6 [facility] Comment on above: Performed By: #### C REAT, HEPATIC, ESR, CBC ####[address] NRBC% 0.1 /100{WBC} Normal 0-0.5 [facility] Comment on above: Performed By: #### C REAT, HEPATIC, ESR, CBC ####[address] Creatinineon 12-27-2023 GFR/1.73 sq M.predicted MDRD (S/P/Bld) [Vol rate/Area] mL/min/{1.73_m2} Normal [facility] Comment on above: Result Comment: PERF ORMED BY: [facility] [address] [place] [address] PATHOLOGIST INSTRUCTIONAL SUPPORT SERVICES DIRECTOR NIYA BARRERA M.D. Performed By: #### C REAT, HEPATIC, ESR, CBC ####[address] Creatinine [Mass/volume] in Serum or PlasmaOrdered By: Michele Arteaga on 12-27-2023 Creatinine [Mass/Vol] 1.08 mg/dL Normal 0.70-1.30 [facility] Comment on above: Performed By: #### C REAT, HEPATIC, ESR, CBC ####[address] Erythrocyte Sedimentation Ra shayy 12-27-2023 ESR (Bld) [Velocity] 11 mm/h Normal 0-19 [facility] Comment on above: Result Comment: PERF ORMED BY: [facility] [address] [place] [address] PATHOLOGIST INSTRUCTIONAL SUPPORT SERVICES DIRECTOR NIYA BARRERA M.D. Performed By: #### C REAT, HEPATIC, ESR, CBC ####[address] Erythrocyte distribution wid th [Ratio] by Automated countOrdered By: Michele Arteaga on 12-27-2023 Erythrocyte distribution width (RBC) [Ratio] 14.8 % Normal 12.0-14.8 [facility] Comment on above: Performed By: #### C REAT, HEPATIC, ESR, CBC ####[address] Erythrocyte sedimentation ra te by Photometric methodOrdered By: Michele Arteaga on 12-27-2023 ESR Photometric method (Bld) [Velocity] 11 mm/hr 0-19 [facility] Erythrocytes [#/volume] in B lood by Automated countOrdered By: Michele Arteaga on 12-27-2023 RBC (Bld) [#/Vol] 3.48 10*6/uL Low 3.90-5.60 [facility] Comment on above: Performed By: #### C REAT, HEPATIC, ESR, CBC ####[address] Hematocrit [Volume Fraction] of Blood by Automated countOrdered By: Michele Arteaga on 12-27-2023 Hematocrit (Bld) [Volume fraction] 32.1 % Low 38.8-50.0 [facility] Comment on above: Performed By: #### C REAT, HEPATIC, ESR, CBC ####[address] Hemoglobin [Mass/volume] in BloodOrdered By: Michele Arteaga on 12-27-2023 Hemoglobin (Bld) [Mass/Vol] 10.5 g/dL Low 13.0-17.0 [facility] Comment on above: Performed By: #### C REAT, HEPATIC, ESR, CBC ####[address] [place] [address] [facility] Hepatic Panelon 12-27-2023 Albumin [Mass/Vol] 4.5 g/dL Normal 3.5-5.7 [facility] Comment on above: Performed By: #### C REAT, HEPATIC, ESR, CBC ####[address] [facility] Bilirubin,Indirect 0.5 mg/dL Normal [facility] Comment on above: Performed By: #### C REAT, HEPATIC, ESR, CBC ####[place] [id number] [facility] Bilirubin.indirect [Mass/Vol] 0.20 mg/dL High 0.03-0.18 [facility] Comment on above: Performed By: #### C REAT, HEPATIC, ESR, CBC ####[place] [id number] [facility] Leukocytes [#/volume] correc bert for nucleated erythrocytes in Blood by Automated counOrdered By: Michele Arteaga on 12-27-2023 WBC corrected for nucl RBC Auto (Bld) [#/Vol] 4.9 10*3/uL 4.1-10.5 [facility] Leukocytes [#/volume] in Blo od by Automated countOrdered By: Michele Arteaga on 12-27-2023 WBC (Bld) [#/Vol] 4.9 10*3/uL Normal 4.1-10.5 [facility] Comment on above: Performed By: #### C REAT, HEPATIC, ESR, CBC ####[place] [id number] [facility] Lymphocytes [#/volume] in Bl ood by Automated countOrdered By: Michele Arteaga on 12-27-2023 Lymphocytes (Bld) [#/Vol] 0.8 10*3/uL Low 1.00-4.8 [facility] Comment on above: Performed By: #### C REAT, HEPATIC, ESR, CBC ####[place] [id number] [facility] Lymphocytes/100 leukocytes i n Blood by Automated countOrdered By: Michele Arteaga on 12-27-2023 Lymphocytes/100 WBC (Bld) 17.1 % Normal . [facility] Comment on above: Performed By: #### C REAT, HEPATIC, ESR, CBC ####[place] [id number] [address] MCH [Entitic mass] by Automa bert countOrdered By: Michele Arteaga on 12-27-2023 MCH (RBC) [Entitic mass] 30.3 pg Normal 27.5-35.2 [facility] Comment on above: Performed By: #### C REAT, HEPATIC, ESR, CBC ####[address] MCHC Auto (RBC) [Mass/Vol]Or dered By: Michele Arteaga on 12-27-2023 MCHC (RBC) [Mass/Vol] 32.9 g/dL 32.5-35.6 [facility] MCV [Entitic volume] by Auto mated countOrdered By: Michele Arteaga on 12-27-2023 MCV (RBC) [Entitic vol] 92.2 fL Normal 83.5-101 [facility] Comment on above: Performed By: #### C REAT, HEPATIC, ESR, CBC ####[address] Neutrophils [#/volume] in Bl ood by Automated countOrdered By: Michele Arteaga on 12-27-2023 Neutrophils (Bld) [#/Vol] 3.4 10*3/uL Normal 1.8-7.7 [facility] Comment on above: Performed By: #### C REAT, HEPATIC, ESR, CBC ####[address] No Panel InformationOrdered By: Michele Arteaga on 12-27-2023 Estimated GFR (CKD-EPI) > 60.0 mL/Min [facility] Creatinine Clearance (Chem N/A [facility] Nucleated erythrocytes [Pres ence] in Blood by Automated countOrdered By: Michele Arteaga on 12-27-2023 Nucleated RBC Auto Ql (Bld) 0.1 /100{WBC} 0-0.5 [facility] Platelet mean volume [Entiti c volume] in Blood by Automated countOrdered By: Michele Arteaga on 12-27-2023 Platelet mean volume (Bld) [Entitic vol] 8.8 fL Normal 6.6-10.1 [facility] Comment on above: Performed By: #### C REAT, HEPATIC, ESR, CBC ####[address] Platelets [#/volume] in Bloo d by Automated countOrdered By: Michele Arteaga on 12-27-2023 Platelets (Bld) [#/Vol] 127 10*3/uL Low 150-450 [facility] Comment on above: Performed By: #### C REAT, HEPATIC, ESR, CBC ####[address] Protein [Mass/volume] in Ser um or PlasmaOrdered By: Michele Arteaga on 12-27-2023 Protein [Mass/Vol] 6.0 g/dL Low 6.4-8.9 [facility] Comment on above: Performed By: #### C REAT, HEPATIC, ESR, CBC ####[address] Serum globulin measurement b y calculation (mass/volume)Ordered By: Michele Arteaga on 12-27-2023 Globulin (S) [Mass/Vol] 1.5 g/dL Normal [facility] Comment on above: Performed By: #### C REAT, HEPATIC, ESR, CBC ####[place] [id number] [facility] Serum or plasma albumin/glob ulin mass ratioOrdered By: Michele Arteaga on 12-27-2023 Albumin/Globulin [Mass ratio] 3.0 {ratio} Normal [facility] Comment on above: Performed By: #### C REAT, HEPATIC, ESR, CBC ####[address] Serum or plasma non-glucuron idated bilirubin measurement (mass/volume)Ordered By: Michele Arteaga on 12-27-2023 Bilirubin.indirect [Mass/Vol] 0.5 mg/dL [facility] CT head/brain wo/w conon CT head/brain wo/w con [facility] Main [place] [address] [place] [address] CT Scan Report Signed Patient: Nelly Hannon MR#: [id number] 0 : 1935 Acct:[id number] Age/Sex: 88 / M ADM Date: 11/29/23 Loc: Room: Type: [facility] Attending Dr: Adilene Weinberg MD Copies to: Adilene Weinberg MD Ordering Provider: Adilene Weinberg MD Date of Service: 11/29/23 CT/CT head/brain wo/w con: 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 COMPARISON: None HISTORY: Restage head and neck of melanoma. VENTRICLES: Within normal limits ATROPHY: None BRAIN PARENCHYMA: Adequate foster-white matter differentiation identified. HEMORRHAGE: None HERNIATION: No mass effect or herniation INFARCTION: No recent vascular distribution infarction is seen. EXTRA-AXIAL FLUID COLLECTIONS None MIDBRAIN: Unremarkable MARGY: Unremarkable MEDULLA: Unremarkable SINUSES: Unremarkable ORBITS: Grossly unremarkable MASTOIDS: Unremarkable BONY STRUCTURES Intact ADDITIONAL FINDINGS: CT/CT head/brain wo/w con IMPRESSION: No acute findings. No malignant or metastatic disease. No pathologic enhancement. Impression dictated by: Abdoul William M.D.11/29/2023 3:10 PM Dictation Location: [place] [address] Transcribed By: [facility] 11/29/23 1510 Dictated By: Abdoul William DO 11/29/23 1506 Signed By: 11/29/23 1510 Normal [facility] ISTAT XRay CREon 11-29-2023 ISTAT GFR 53.501 Normal [facility] Comment on above: Result Comment: PERF ORMED BY: [place] [address] PATHOLOGIST INSTRUCTIONAL SUPPORT SERVICES DIRECTOR NIYA BARRERA M.D. Performed By: #### I SCRE #### [address] No Panel InformationOrdered By: Adilene Lenard on 11-29-2023 Bedside Estimated GFR (eGFR) 53.501 [facility] Whole blood creatinine measu rementOrdered By: Adilene Weinberg on 11-29-2023 Creatinine [Mass/Vol] 1.3 mg/dL Normal 0.6-1.3 [facility] Comment on above: ER/ESD physician is notified/shown all ISTAT results.Critical values may be confirmed by laboratory testing ifdeemed necessary by ER attending doctor. Result Comment: ER/E SD physician is notified/shown all ISTAT results. Critical values may be confirmed by laboratory testing if deemed necessary by ER attending doctor. Performed By: #### I SCRE #### [address] Capillary blood glucose kumar urement by glucometer (mass/volume)Ordered By: Elkin Holly on 11-19-2023 Glucose [Mass/Vol] 88 mg/dL Normal [facility] Comment on above: Random Glucose Refer ence Range is dependent on time and content of last meal. Glucose of more than 200 mg/dL in a nonstressed, ambulatory subject supports the diagnosis of Diabetes Mellitus. Result Comment: [place] om Glucose Reference Range is dependent on time and content of last meal. Glucose of more than 200 mg/dL in a nonstressed, ambulatory subject supports the diagnosis of Diabetes Mellitus. PERFORMED BY: [place] [address] PATHOLOGIST INSTRUCTIONAL SUPPORT SERVICES DIRECTOR NIYA BARRERA M.D. Performed By: #### G LULS ####Point of Care testing, PET tumor init tx strat wbon 11-19-2023 PET tumor init tx strat wb [facility] Main [place] [address] [place] [address] Nuclear Medicine Report Signed Patient: Nelly Hannon MR#: [id number] 0 : 1935 Acct:[id number] Age/Sex: 88 / M ADM Date: 11/19/23 Loc: Room: Type: [facility] Attending Dr: Elkin Holly MD Copies to: MD Festus Gonzalez Jr, DO Ordering Provider: Elkin Holly MD Date of Service: 11/19/23 PET/PET tumor init tx strat wb: Melanoma PET/CT FUSION IMAGING CLINICAL INFORMATION: Melanoma of the forehead. COMPARISON : None TECHNIQUE: Noncontrasted CT scan from the skull to the feet followed by PET imaging. Multiplanar PET/CT fusion images. Blood Glucose : 88 mg/dL The F-18 FDG 14.16mCi. FINDINGS: Neck: No abnormal activity. Chest:No abnormal activity. Abdomen/pelvis: No abnormal activity. Soft tissue/bones: No abnormal activity. CT findings: No pneumothorax. No pericardial or pleural effusions. Cardiomegaly. No free air or free fluid. PET/PET tumor init tx strat wb IMPRESSION: Negative PET CT. Impression dictated by: Festus Silver Jr., D.OSantos11/19/2023 1:01 PM Dictation Location: [place] [address] Transcribed By: [facility] 11/19/23 1301 Dictated By: Festus Silver Jr, DO 11/19/23 1251 Signed By: 11/19/23 1301 Normal [facility] D[facility]ATH LAB- DERMATOPATHOLOGY Pathology report.total SEE COMMENT Dermatopathology Case: [id number] Authorizing Provider: Elkin Holly MD Collected: 10/28/2023 1318 Ordering Location: [facility] Received: 10/28/2023 1346 [place] Pathologist: Donna Blanchard MD Specimens: A) - SKIN WIDE EXCISION, WIDE LOCAL EXCISION RIGHT SCALP, LONG STITCH LATERAL AT 9 OCLOCK AND SHORT STITCH SUPERIOR AT 12 OCLOCK B) - SENTINEL LYMPH NODE OTHER, SENTINEL LYMPH NODE #1 RIGHT INTRAPAROTID C) - SENTINEL LYMPH NODE OTHER, SENTINEL LYMPH NODE #2 RIGHT INTRAPAROTID Path report.final diagnosis SEE COMMENT A. 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 Note: Microscopic examination reveals a specimen that extends into the subcutaneous fat. An area with horizontally oriented collagen and vertically oriented vessels is present. In slide A7 there is a proliferation of nested and single melanocytes along the dermal-epidermal junction and within the dermis highlighted by the SOX-10 stain. There is an area of epidermal hyperplasia full thickness keratinocyte atypia. The atypical melanocytes stain with antibodies against Melan-A and SOX-10 and weakly with antibodies against HMB45. The squamous cell carcinoma in situ is present on the 11 o'clock margin. B. NODE, SENTINEL LYMPH NODE #1 RIGHT INTRAPAROTID: METASTATIC MALIGNANT MELANOMA IN 1/ LYMPH NODE, SEE NOTE. Note: Microscopic examination reveals a lymph node. In the subparenchymal, capsular and parenchymal space there is a deposit of atypical melanocytes that is 0.75 mm in greatest diameter. No extracapsular extension is seen. All control slides stain appropriately. C. NODE, SENTINEL LYMPH NODE #2 RIGHT INTRAPAROTID: METASTATIC MALIGNANT MELANOMA / LYMPH NODE, SEE NOTE. Note: Microscopic examination reveals a lymph node adjacent to parotid. There is a deposit of atypical epithelioid melanocytes that stain with antibodies against Melan-A and SOX-10 and very weakly with antibodies against HMB45 in the parenchyma of the lymph node that is 0.9 mm in greatest diameter. No extracapsular extension is seen. All control slides stain appropriately. Electronically signed out by Donna Blanchard MD Laboratory comment By the signature on this report, the individual or group listed as making the Final Interpretation/Diagno sis certifies that they have reviewed this case. 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) Post-Op Diagnosis: Malignant melanoma of forehead (CMS/HCC) Admission Diagnosis: Malignant melanoma of forehead (CMS/HCC) C43.39 Specimen ID: [id number], [id number] Specimen Source: SKIN WIDE EXCISION Site/Location: WIDE LOCAL EXCISION RIGHT SCALP, LONG STITCH LATERAL AT 9 OCLOCK AND SHORT STITCH SUPERIOR AT 12 OCLOCK Collection Comments: Specimen ID: [id number], [id number] Specimen Source: SENTINEL LYMPH NODE OTHER Site/Location: SENTINEL LYMPH NODE #1 RIGHT INTRAPAROTID Collection Comments: Specimen ID: [id number], [id number] Specimen Source: SENTINEL LYMPH NODE OTHER Site/Location: SENTINEL LYMPH NODE #2 RIGHT INTRAPAROTID Collection Comments: Path report.microscopic observation A. Microscopic analysis shows hyperplastic epidermis with full-thickness atypia of keratinocytes. An area with horizontally oriented collagen and vertically oriented vessels is present. A step section was performed. LAB AP ASR DISCLAIMER One or more of the reagents used to perform assays on this specimen MAY have contained components considered to be analyte specific reagents (ASR's). ASR's have not been cleared or approved by the U.S. Food and Drug Administration. These assays were developed and their performance characteristics determined by the Department of Pathology at [facility]. The FDA does not require this test to go through premarket FDA review. This test is used for clinical purposes. It should not be regarded as investigational or for research. This laboratory is certified under the Clinical Laboratory Improvement Amendments (CLIA) as qualified to perform high complexity clinical laboratory testing. The assays were performed with appropriate positive and negative controls which stained appropriately. Path report.gross observation SEE COMMENT A: Received in formalin is a howard elliptical piece of skin measuring 43 x 34 x 6 mm. It was received with a short suture designated by the surgeon as the 12 o'clock position. It was received with a second suture designated by the surgeon as the 9 o'clock position. It was inked blue on the 12 o'clock to 6 o'clock margin and black on the 6 to 12 o'clock margin. It was serially sectioned an (more content not included)... 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 COMPARISON: None. ACCESSION NUMBER(S): [id number] ORDERING CLINICIAN: ELKIN HOLLY TECHNIQUE: DIVISION OF NUCLEAR MEDICINE RADIONUCLIDE SENTINEL LYMPH NODE LYMPHOSCINTIGRAPHY A total of 0.99 millicuries of Tc-99m tilmanocept (Lymphoseek) was injected intradermally (both injection and reinjection) in a circumferential pattern surrounding the patient's right forehead melanoma biopsy site. Immediate dynamic images were obtained followed by multiple static images in multiple projections. SPECT/CT images localized to the likely sentinel node region were also acquired. FINDINGS: Immediate dynamic images reveal tracer deposition traveling to right forehead. Activity likely representing a sentinel lymph node was identified in the right pre-auricular lymph node. SPECT/CT images localize to the site of likely sentinel location were obtained and localized images were sent to PACS. IMPRESSION: Successful sentinel lymph node localization to the right pre-auricular lymph node. Gunite Nozzle Operator localizing images were sent to PACS. I personally reviewed the images/study and I agree with the findings as stated by Nuclear Medicine fellow Ruthann Lee MD. This study was interpreted at [place], [place]. MACRO: None Signed by: Michele Sweeney 10/28/2023 12:48 PM Dictation workstation: [id number] [facility] NM Lymphatic vessels Views W radionuclide intra lymphaticon 10-28-2023 Radiology Study observation (narrative) [facility] Work Phone: Successful sentinel lymph node localization to the right pre-auricular lymph node. Gunite Nozzle Operator localizing images were sent to PACS. I personally reviewed the images/study and I agree with the findings as stated by Nuclear Medicine fellow Ruthann Lee MD. This study was interpreted at [place], [place]. MACRO: None Signed by: Michele Sweeney 10/28/2023 12:48 PM Dictation workstation: [id number] Interpreted By: Michele Sweeney and Maltbie Grace STUDY: NM LYMPHOSCINTIGRAM; 10/28/2023 12:24 pm INDICATION: Signs/Symptoms:lympho sentigraphy for SLNB right forehead melanoma. COMPARISON: None. ACCESSION NUMBER(S): [id number] ORDERING CLINICIAN: ELKIN HOLLY TECHNIQUE: DIVISION OF NUCLEAR MEDICINE RADIONUCLIDE SENTINEL LYMPH NODE LYMPHOSCINTIGRAPHY A total of 0.99 millicuries of Tc-99m tilmanocept (Lymphoseek) was injected intradermally (both injection and reinjection) in a circumferential pattern surrounding the patient's right forehead melanoma biopsy site. Immediate dynamic images were obtained followed by multiple static images in multiple projections. SPECT/CT images localized to the likely sentinel node region were also acquired. FINDINGS: Immediate dynamic images reveal tracer deposition traveling to right forehead. Activity likely representing a sentinel lymph node was identified in the right pre-auricular lymph node. SPECT/CT images localize to the site of likely sentinel location were obtained and localized images were sent to PACS. [facility] MMODAL Michele Sweeney MD - 10/28/2023 Interpreted By: Michele Sweeney and Maltbie Grace STUDY: NM LYMPHOSCINTIGRAM; 10/28/2023 12:24 pm INDICATION: Signs/Symptoms:lympho sentigraphy for SLNB right forehead melanoma. COMPARISON: None. ACCESSION NUMBER(S): [id number] ORDERING CLINICIAN: ELKIN HOLLY TECHNIQUE: DIVISION OF NUCLEAR MEDICINE RADIONUCLIDE SENTINEL LYMPH NODE LYMPHOSCINTIGRAPHY A total of 0.99 millicuries of Tc-99m tilmanocept (Lymphoseek) was injected intradermally (both injection and reinjection) in a circumferential pattern surrounding the patient's right forehead melanoma biopsy site. Immediate dynamic images were obtained followed by multiple static images in multiple projections. SPECT/CT images localized to the likely sentinel node region were also acquired. FINDINGS: Immediate dynamic images reveal tracer deposition traveling to right forehead. Activity likely representing a sentinel lymph node was identified in the right pre-auricular lymph node. SPECT/CT images localize to the site of likely sentinel location were obtained and localized images were sent to PACS. IMPRESSION: Successful sentinel lymph node localization to the right pre-auricular lymph node. Gunite Nozzle Operator localizing images were sent to PACS. I personally reviewed the images/study and I agree with the findings as stated by Nuclear Medicine fellow Ruthann Lee MD. This study was interpreted at [place], [place]. MACRO: None Signed by: Michele Sweeney 10/28/2023 12:48 PM Dictation workstation: [id number] [facility] Work Phone: NM Lymphatic vessels Views W radionuclide intra lymphaticOrdered By: Michele Sweeney on 10-28-2023 [facility] Work Phone: NM SPECT/CT LOCALIZATION ADD ON SINGLE DAYon 10-28-2023 NM SPECT/CT LOCALIZATION ADD ON SINGLE DAY Interpreted By: Michele Sweeney and Rosa Beavers STUDY: NM LYMPHOSCINTIGRAM; 10/28/2023 12:24 pm INDICATION: Signs/Symptoms:lympho sentigraphy for SLNB right forehead melanoma. COMPARISON: None. ACCESSION NUMBER(S): [id number] ORDERING CLINICIAN: ELKIN HOLLY TECHNIQUE: DIVISION OF NUCLEAR MEDICINE RADIONUCLIDE SENTINEL LYMPH NODE LYMPHOSCINTIGRAPHY A total of 0.99 millicuries of Tc-99m tilmanocept (Lymphoseek) was injected intradermally (both injection and reinjection) in a circumferential pattern surrounding the patient's right forehead melanoma biopsy site. Immediate dynamic images were obtained followed by multiple static images in multiple projections. SPECT/CT images localized to the likely sentinel node region were also acquired. FINDINGS: Immediate dynamic images reveal tracer deposition traveling to right forehead. Activity likely representing a sentinel lymph node was identified in the right pre-auricular lymph node. SPECT/CT images localize to the site of likely sentinel location were obtained and localized images were sent to PACS. IMPRESSION: Successful sentinel lymph node localization to the right pre-auricular lymph node. Gunite Nozzle Operator localizing images were sent to PACS. I personally reviewed the images/study and I agree with the findings as stated by Nuclear Medicine fellow Ruthann Lee MD. This study was interpreted at [facility], [place], [place]. MACRO: None Signed by: Michele Sweeney 10/28/2023 12:48 PM Dictation workstation: [id number] [facility] Office Visiton 10-26-2023 Follow-up visit [id number] Nelly Hannon 1935 M Date Provider Department Center 10/26/2023 Blanca-YULIANA RODRIGUEZ [facility] Family History Problem Relation Age of Onset Other Mother Coronary artery disease Father Family Status - Relation Status Age at Mother Father Level of Service:99357 [place] OFFICE/OUTPATIENT ESTABLISHED MOD MDM 30 MIN Normal [facility] BRAF gene Sequencing Doc (Ca ncer specimen)on 09-23-2023 BRAF EXON 15 RESULTS SEE COMMENT Normal [facility] Comment on above: Order Comment: Mater ials Received: 4 slides, [facility], [id number] (BX: 08/31/23) Result Comment: Spec imen: FFPE, [id number] Estimated Tumor Content: 30% GENOMIC FINDINGS: None Detected. DISEASE RELEVANT ALTERATIONS NOT DETECTED: Negative for BRAF V600. INTERPRETATION: No variants are detected in the listed gene regions. This finding does not exclude the presence of genetic alterations present in gene regions not tested or occurring at a frequency below the limit of detection. Archival material from this surgical specimen has been reviewed by the pathologist in order to determine the most appropriate tumor tissue for further molecular testing. The identification and selection of this tumor tissue is critical to the success of subsequent molecular testing and analysis. DISCLAIMER: DNA was extracted from the specimen provided and tested for the presence of BRAF mutations in exon 15 ([id number]) by next generation sequencing. Genome assembly (hg19) was used for alignment and variant calling. A negative result (not detected) does not rule out the presence of a mutation below the limit of detection of this assay due to low neoplastic cell content, tumor heterogeneity, or the presence of additional mutations in the listed genes which are outside of the target regions in this assay. General population polymorphisms, promoter, synonymous and intronic variants (with the exception of splice variants) are not generally included in this report. This assay does not distinguish between somatic and germ-line alterations in analyzed regions. Identification or absence of cancer-associated mutations does not necessarily indicate a response to therapy. Decisions on patient care and treatment must be based on the independent medical judgment of the treating physician, taking into account all applicable information concerning the patient's condition such as clinical and histopathologic findings, other laboratory findings, and patient preferences. This report includes information from public sources, including scientific and medical literature to better characterize the significance of alterations detected. This laboratory developed test was developed and its analytical performance characteristics have been determined by [facility]. This test has not been cleared or approved by the FDA; however, the FDA has determined that such approval is not necessary. The [facility] is certified under the Clinical Laboratory Improvement Amendments of 1988 (CLIA-88) as qualified to perform high complexity testing. Performed By: #### 8 3061-2 #### DEANGELO CERVANTES ([id number]) TRAN[facility] ([facility]) [address] [place] [address] ELECTRONICALLY SIGNED BY Deangelo Cervantes MD PhD [facility] Comment on above: Order Comment: Mater ials Received: 4 slides, [facility], [id number] (BX: 08/31/23) Performed By: #### 8 3061-2 #### DEANGELO CERVANTES ([id number]) [facility] ([facility]) [address] [place] [address] Surgical pathology studyon 1 11-24-2022 Surgical pathology study Pathology report.total SEE COMMENT Dermatopathology Report Case: [id number] Authorizing Provider: Elkin Holly MD Collected: 09/23/2023 [facility] Received: 09/23/2023 [facility] Pathologist: Donna Blanchard MD Specimen: OUTSIDE BLOCK(S)/SLIDE(S), 4 SLIDES, DERMATOPATHOLOGY LABORATORY OF PSY[facility]IATRIC, [id number] (BX: 08/31/23) Path report.final diagnosis SEE COMMENT 4 SLIDES, DERMATOPATHOLOGY LAB OF PSYCHIATRIC, [id number] A & B (BX 08/31/23). A. SKIN, [...] Received for consultation from [facility] are four slides labeled [id number] (Bx: 08/31/23) along with the corresponding pathology report. Slides for specimens A and B received. Path report.microscopic observation A: Microscopic analysis shows irregular growth of keratinocytes that are associated with the epidermis and invade the dermis in isolated islands and strands. Horn pearls and partial keratinization are present.The basal cells are poorly demarcated from the stroma. Atypia is mild, and mitoses are rare. Normal [facility] Comment on above: Order Comment: Mater ials Received: 4 slides, [facility], [id number] (BX: 08/31/23) Alanine aminotransferase [En zymatic activity/volume] in Serum or PlasmaOrdered By: Michele Arteaga on 07-19-2023 ALT [Catalytic activity/Vol] 32 U/L Normal 7-52 [facility] Comment on above: Performed By: #### C BC, ESR, CREAT, HEPATIC #### [place] [id number] [place] Albumin [Mass/volume] in Ser um or Plasma by Bromocresol green (BCG) dye binding methoOrdered By: Michele Arteaga on 07-19-2023 Albumin BCG dye [Mass/Vol] 4.1 g/dL 3.5-5.7 [facility] Alkaline phosphatase [Enzyma tic activity/volume] in Serum or PlasmaOrdered By: Michele Arteaga on 07-19-2023 ALP [Catalytic activity/Vol] 63 U/L Normal 34-104 [facility] Comment on above: Performed By: #### C BC, ESR, CREAT, HEPATIC #### [facility] [address] Aspartate aminotransferase [ Enzymatic activity/volume] in Serum or PlasmaOrdered By: Michele Arteaga on 07-19-2023 AST [Catalytic activity/Vol] 22 U/L Normal 13-39 [facility] Comment on above: Performed By: #### C BC, ESR, CREAT, HEPATIC #### [address] Automated basophil %Ordered By: Michele Arteaga on 07-19-2023 Basophils/100 WBC (Bld) 0.7 % Normal . [facility] Comment on above: Performed By: #### C BC, ESR, CREAT, HEPATIC #### [address] Automated basophil countOrde red By: Michele Arteaga on 07-19-2023 Basophils (Bld) [#/Vol] 0.0 10*3/uL Normal 0.0-0.2 [facility] Comment on above: Performed By: #### C BC, ESR, CREAT, HEPATIC #### [address] Automated blood monocyte cou ntOrdered By: Michele Arteaga on 07-19-2023 Monocytes (Bld) [#/Vol] 0.5 10*3/uL Normal 0.0-0.8 [facility] Comment on above: Performed By: #### C BC, ESR, CREAT, HEPATIC #### [facility] [address] [place] [address] Automated eosinophil %Ordere d By: Michele Arteaga on 07-19-2023 Eosinophils/100 WBC (Bld) 0.9 % Normal . [facility] Comment on above: Performed By: #### C BC, ESR, CREAT, HEPATIC #### [address] Automated eosinophil countOr dered By: Michele Arteaga on 07-19-2023 Eosinophils (Bld) [#/Vol] 0.0 10*3/uL Normal 0.0-0.45 [facility] Comment on above: Performed By: #### C BC, ESR, CREAT, HEPATIC #### [address] Automated monocyte %Ordered By: Michele Arteaga on 07-19-2023 Monocytes/100 WBC (Bld) 11.2 % Normal . [facility] Comment on above: Performed By: #### C BC, ESR, CREAT, HEPATIC #### [address] Automated neutrophil %Ordere d By: Michele Arteaga on 07-19-2023 Neutrophils/100 WBC (Bld) 71.1 % Normal . [facility] Comment on above: Performed By: #### C BC, ESR, CREAT, HEPATIC #### [address] Bilirubin.direct [Mass/volum e] in Serum or PlasmaOrdered By: Michele Arteaga on 07-19-2023 Bilirubin.direct [Mass/Vol] 0.10 mg/dL 0.03-0.18 [facility] Bilirubin.total [Mass/volume ] in Serum or PlasmaOrdered By: Michele Arteaga on 07-19-2023 Bilirubin [Mass/Vol] 0.6 mg/dL Normal 0.3-1.0 [facility] Comment on above: Performed By: #### C BC, ESR, CREAT, HEPATIC #### [address] Complete Blood Count Auto Di ffon 07-19-2023 Mean Corpuscular HGB Conc 34.4 g/dL Normal 32.5-35.6 [facility] Comment on above: Performed By: #### C BC, ESR, CREAT, HEPATIC #### [address] NRBC% 0.2 /100{WBC} Normal 0-0.5 [facility] Comment on above: Performed By: #### C BC, ESR, CREAT, HEPATIC #### [address] Creatinineon 07-19-2023 GFR/1.73 sq M.predicted MDRD (S/P/Bld) [Vol rate/Area] mL/min/{1.73_m2} Normal [facility] Comment on above: Result Comment: PERF ORMED BY: [place] [address] PATHOLOGIST INSTRUCTIONAL SUPPORT SERVICES DIRECTOR NIYA BARRERA M.D. Performed By: #### C BC, ESR, CREAT, HEPATIC ####[address] Creatinine [Mass/volume] in Serum or PlasmaOrdered By: Michele Arteaga on 07-19-2023 Creatinine [Mass/Vol] 1.09 mg/dL Normal 0.70-1.30 [facility] Comment on above: Performed By: #### C BC, ESR, CREAT, HEPATIC ####[address] Erythrocyte Sedimentation Ra shayy 07-19-2023 ESR (Bld) [Velocity] 5 mm/h Normal 0-19 [facility] Comment on above: Result Comment: PERF ORMED BY: [place] [address] PATHOLOGIST INSTRUCTIONAL SUPPORT SERVICES DIRECTOR NIYA BARRERA M.D. Performed By: #### C BC, ESR, CREAT, HEPATIC #### [address] Erythrocyte distribution wid th [Ratio] by Automated countOrdered By: Michele Arteaga on 07-19-2023 Erythrocyte distribution width (RBC) [Ratio] 14.6 % Normal 12.0-14.8 [facility] Comment on above: Performed By: #### C BC, ESR, CREAT, HEPATIC #### [address] Erythrocyte sedimentation ra te by Photometric methodOrdered By: Michele Arteaga on 07-19-2023 ESR Photometric method (Bld) [Velocity] 5 mm/hr 0-19 [facility] Erythrocytes [#/volume] in B lood by Automated countOrdered By: Michele Arteaga on 07-19-2023 RBC (Bld) [#/Vol] 3.40 10*6/uL Low 3.90-5.60 [facility] Comment on above: Performed By: #### C BC, ESR, CREAT, HEPATIC #### [address] Hematocrit [Volume Fraction] of Blood by Automated countOrdered By: Michele Arteaga on 07-19-2023 Hematocrit (Bld) [Volume fraction] 31.9 % Low 38.8-50.0 [facility] Comment on above: Performed By: #### C BC, ESR, CREAT, HEPATIC #### [address] Hemoglobin [Mass/volume] in BloodOrdered By: Michele Arteaga on 07-19-2023 Hemoglobin (Bld) [Mass/Vol] 11.0 g/dL Low 13.0-17.0 [facility] Comment on above: Performed By: #### C BC, ESR, CREAT, HEPATIC #### [address] Hepatic Panelon 07-19-2023 Albumin [Mass/Vol] 4.1 g/dL Normal 3.5-5.7 [facility] Comment on above: Performed By: #### C BC, ESR, CREAT, HEPATIC #### [address] Bilirubin,Indirect 0.5 mg/dL Normal [facility] Comment on above: Performed By: #### C BC, ESR, CREAT, HEPATIC #### [facility] [address] Bilirubin.indirect [Mass/Vol] 0.10 mg/dL Normal 0.03-0.18 [facility] Comment on above: Performed By: #### C BC, ESR, CREAT, HEPATIC #### [address] Leukocytes [#/volume] correc bert for nucleated erythrocytes in Blood by Automated counOrdered By: Michele Arteaga on 07-19-2023 WBC corrected for nucl RBC Auto (Bld) [#/Vol] 4.2 10*3/uL 4.1-10.5 [facility] Leukocytes [#/volume] in Blo od by Automated countOrdered By: Michele Arteaga on 07-19-2023 WBC (Bld) [#/Vol] 4.2 10*3/uL Normal 4.1-10.5 [facility] Comment on above: Performed By: #### C BC, ESR, CREAT, HEPATIC #### [address] Lymphocytes [#/volume] in Bl ood by Automated countOrdered By: Michele Arteaga on 07-19-2023 Lymphocytes (Bld) [#/Vol] 0.7 10*3/uL Low 1.00-4.8 [facility] Comment on above: Performed By: #### C BC, ESR, CREAT, HEPATIC #### [place] [address] [place] Lymphocytes/100 leukocytes i n Blood by Automated countOrdered By: Michele Arteaga on 07-19-2023 Lymphocytes/100 WBC (Bld) 16.1 % Normal . [facility] Comment on above: Performed By: #### C BC, ESR, CREAT, HEPATIC #### [address] MCH [Entitic mass] by Automa bert countOrdered By: Michele Arteaga on 07-19-2023 MCH (RBC) [Entitic mass] 32.2 pg Normal 27.5-35.2 [facility] Comment on above: Performed By: #### C BC, ESR, CREAT, HEPATIC #### [facility] [address] [place] [address] MCHC Auto (RBC) [Mass/Vol]Or dered By: Michele Arteaga on 07-19-2023 MCHC (RBC) [Mass/Vol] 34.4 g/dL 32.5-35.6 [facility] MCV [Entitic volume] by Auto mated countOrdered By: Michele Arteaga on 07-19-2023 MCV (RBC) [Entitic vol] 93.7 fL Normal 83.5-101 [facility] Comment on above: Performed By: #### C BC, ESR, CREAT, HEPATIC #### [address] Neutrophils [#/volume] in Bl ood by Automated countOrdered By: Michele Arteaga on 07-19-2023 Neutrophils (Bld) [#/Vol] 3.0 10*3/uL Normal 1.8-7.7 [facility] Comment on above: Performed By: #### C BC, ESR, CREAT, HEPATIC #### [facility] [address] [place] [address] No Panel InformationOrdered By: Michele Arteaga on 07-19-2023 Estimated GFR (CKD-EPI) > 60.0 mL/Min [facility] Creatinine Clearance (Chem N/A [facility] Nucleated erythrocytes [Pres ence] in Blood by Automated countOrdered By: Michele Arteaga on 07-19-2023 Nucleated RBC Auto Ql (Bld) 0.2 /100{WBC} 0-0.5 [facility] Platelet mean volume [Entiti c volume] in Blood by Automated countOrdered By: Michele Arteaga on 07-19-2023 Platelet mean volume (Bld) [Entitic vol] 8.5 fL Normal 6.6-10.1 [facility] Comment on above: Performed By: #### C BC, ESR, CREAT, HEPATIC #### [facility] [address] [place] [address] Platelets [#/volume] in Bloo d by Automated countOrdered By: Michele Arteaga on 07-19-2023 Platelets (Bld) [#/Vol] 123 10*3/uL Low 150-450 [facility] Comment on above: Performed By: #### C BC, ESR, CREAT, HEPATIC #### [facility] [address] Protein [Mass/volume] in Ser um or PlasmaOrdered By: Michele Arteaga on 07-19-2023 Protein [Mass/Vol] 5.8 g/dL Low 6.4-8.9 [facility] Comment on above: Performed By: #### C BC, ESR, CREAT, HEPATIC #### [facility] [address] Serum globulin measurement b y calculation (mass/volume)Ordered By: Michele Arteaga on 07-19-2023 Globulin (S) [Mass/Vol] 1.7 g/dL Normal [facility] Comment on above: Performed By: #### C BC, ESR, CREAT, HEPATIC #### [facility] [address] Serum or plasma albumin/glob ulin mass ratioOrdered By: Michele Arteaga on 07-19-2023 Albumin/Globulin [Mass ratio] 2.4 {ratio} Normal [facility] Comment on above: Performed By: #### C BC, ESR, CREAT, HEPATIC #### [facility] [address] Serum or plasma non-glucuron idated bilirubin measurement (mass/volume)Ordered By: Michele Arteaga on 07-19-2023 Bilirubin.indirect [Mass/Vol] 0.5 mg/dL [facility] Ambulatory Visit Summaryon 0 05-17-2023 Ambulatory Visit Summary NELLY HANNON :1935 Visit Date:05/17/2023 Ambulatory Visit Instructions Your Diagnosis BPH with urinary obstruction History of prostate cancer Nocturia Tests Performed Urnls Dip Stick Auto w/o Microscopy POC 78552 Your Care Team Attending Physician - Cristela WINTER MD Primary Care Physician - STEVE DE PAZ DO This Is Your Medications List alfuzosin [...] Follow-Up Appointments Wednesday 8:45 AM EDT With: Cristela WINTER MD Where: [facility] Patient Educationon 05-17-20 23 Patient Education Oncology [...] under a microscope. This is called the Ernul score and the total score can range from 6?10, indicating how likely it is that the cancer will spread (metastasize) to other parts of the body. The higher the score, the greater the likelihood that the cancer will spread. ? Ernul 6 or lower: This indicates that the cancer cells look similar to normal prostate cells (well differentiated). ? Ernul 7: This indicates that the cancer cells look somewhat similar to normal prostate cells (moderately differentiated). ? Ernul 8, 9, or 10: This indicates that [...] Like external be (more content not included)... [facility] Reminderson 05-17-2023 Reminders - From: Linda Izquierdo To: LEEANNE Winter; Sent: 05/17/2023 16:51:39 EDT Show up: 04/16/2024 16:51:00 EDT Subject: PSA Reminder Message Please Remember to:_have pt get PSA done prior to appt. Normal [facility] Urology Office/Clinic Noteon 05-17-2023 Urology Office/Clinic Note Chief Complaint hx of prostate cancer HPI Staff 1 year with PSA. Previous dx of BPH with urinary obstruction (Evolve laser 2007), hx of prostate cancer (Brachytherapy 2008) and nocturia. Current PSA done 05/10/23 is [...] and history for this patient from Dr. Winter. I have reviewed and verified the staff [...] When Contact Information MOY ARRIAGA, Cristela Carbajal, INNAL In 1 year [facility] [address], [place] [address] [phone] Additional Instructions: PSA Patient Education Prostate Cancer I, Linda Izquierdo, personally scribed for Dr. Winter on 05/17/2023 09:43:04. . Documentation recorded by the scribeLinda, accurately reflects the services(s) I performed and decisions made by me. Authenticated by Dr. Winter on 05/17/2023 09:45:02. Problem List/Past Medical History [...] (COVID-19) mRNA-[id number] (more content not included)... Normal [facility] Comment on above: Result Comment: Elec tronically Signed By: Cristela WINTER MD\.br\Date and Time Signed: 05/17/23 09:46 EDT\.br\Electronically Co-Signed By: Linda Izquierdo\.br\Date and Time Co-Signed: 05/17/23 09:43 EDT Lab Reportson 05-11-2023 Lab Reports [id number] .00CD:127 Normal [facility] Office Visiton 04-28-2023 Follow-up visit [id number] Nelly Hannon 1935 M Date Provider Department Center 04/28/2023 Blanca-YULIANA RODRIGUEZ Family History Problem Relation Age of Onset Other Mother Coronary artery disease Father Family Status - Relation Status Age at Mother Father Level of Service:[address] [place] OFFICE/OUTPATIENT ESTABLISHED MOD MDM 30-39 MIN Normal [facility] Huan 03-30-2023 L - -------- Specimen: [id number] Received: 03/30/23 Status: RYAN Kaitlin Num: [id number] Spec Type: Surgical Subm Dr: Jose R Cruz MD Tissues: A Soft Tissue/Surgical Margin-Other than Tumor,Mass,Lip or Amie (POSTERIOR NECK Procedures: Brennan GAMA/Hever L4 -------- Age/ Patient Sex Location Account Attending Physician -------- Nelly Hannon/Karina DE [place] [id number] Jose R Cruz MD -------- SPEC NUM: [id number] RECD: 03/30/23 STATUS: RYAN KAITLIN NUM: [id number] HAN: 03/30/[address]: Jose R Cruz MD ENTERED: 03/30/[address] [facility] [address]: SPEC TYPE: Surgical DEPT: S ORDERED: LANETTE, Gross/Micro L4 ORDERED: LANETTE, Gross/Micro L4 Pathological [...] overlying 2.0 x 1.2 cm ellipse of hoawrd-white skin. The specimen is inked and sectioned revealing that the nodule contains caseous, yellow-howard material.. Gunite Nozzle Operator sections are submitted in one cassette labeled A1. Microscopic Description One H E slide reviewed. The microscopic examination confirms the diagnosis. -------- Specimen: [id number] Received: 03/30/23 Status: RYAN Kaitlin Num: [id number] Spec Type: Surgical Subm Dr: Jose R Cruz MD Tissues: A Soft Tissue/Surgical Margin-Other than Tumor,Mass,Lip or Amie (POSTERIOR NECK Procedures: Brennan GAMA/Micro L4 -------- Patient: Nelly Hannon [id number] (Continued) -------- Specimen: [id number] Received: 03/30/23 (Continued) Signed (signature on file) Lucrecia Ochoa MD 03/31/23 1239 -------- Specimen: Received: 03/30/23 Status: RYAN Bui Num: [id number] Spec Type: Surgical Subm Dr: Jose R Cruz MD Tissues: A Soft Tissue/Surgical Margin-Other than Tumor,Mass,Lip or Amie (POSTERIOR NECK Procedures: Brennan GAMA/Hever L4 -------- Patient: Nelly Hannon [id number] (Continued) -------- Specimen: Received: 03/30/23 (Continued) CPT Codes 93155 -------- -------- Specimen: [id number] Received: 03/30/23 Status: RYAN Bui Num: [id number] Spec Type: Surgical Subm Dr: Jose R Cruz MD Tissues: A Soft Tissue/Surgical Margin-Other than Tumor,Mass,Lip or Amie (POSTERIOR NECK Procedures: Brennan GAMA/Hever L4 -------- Patient: Nelly Hannon [id number] (Continued) -------- Signed (signature on file) Lucrecia Ochoa MD 06/28/23 1239 Normal [facility] Alanine aminotransferase [En zymatic activity/volume] in Serum or PlasmaOrdered By: Michele Arteaga on 03-23-2023 ALT [Catalytic activity/Vol] 23 U/L Normal 7-52 [facility] Comment on above: Performed By: #### E SR, CBC, HEPATIC, CREAT ####[place] [id number] [facility] Albumin [Mass/volume] in Ser um or Plasma by Bromocresol green (BCG) dye binding methoOrdered By: Michele Arteaga on 03-23-2023 Albumin BCG dye [Mass/Vol] 4.4 g/dL 3.5-5.7 [facility] Alkaline phosphatase [Enzyma tic activity/volume] in Serum or PlasmaOrdered By: Michele Arteaga on 03-23-2023 ALP [Catalytic activity/Vol] 88 U/L Normal 34-104 [facility] Comment on above: Performed By: #### E SR, CBC, HEPATIC, CREAT ####[place] [id number] [facility] Aspartate aminotransferase [ Enzymatic activity/volume] in Serum or PlasmaOrdered By: Michele Arteaga on 03-23-2023 AST [Catalytic activity/Vol] 20 U/L Normal 13-39 [facility] Comment on above: Performed By: #### E SR, CBC, HEPATIC, CREAT ####[address] [facility] Automated basophil %Ordered By: Michele Arteaga on 03-23-2023 Basophils/100 WBC (Bld) 0.8 % Normal . [facility] Comment on above: Performed By: #### E SR, CBC, HEPATIC, CREAT ####[address] [facility] Automated basophil countOrde red By: Michele Arteaga on 03-23-2023 Basophils (Bld) [#/Vol] 0.0 10*3/uL Normal 0.0-0.2 [facility] Comment on above: Performed By: #### E SR, CBC, HEPATIC, CREAT ####[address] Automated blood monocyte cou ntOrdered By: Michele Arteaga on 03-23-2023 Monocytes (Bld) [#/Vol] 0.7 10*3/uL Normal 0.0-0.8 [facility] Comment on above: Performed By: #### E SR, CBC, HEPATIC, CREAT ####[address] Automated eosinophil %Ordere d By: Michele Arteaga on 03-23-2023 Eosinophils/100 WBC (Bld) 1.3 % Normal . [facility] Comment on above: Performed By: #### E SR, CBC, HEPATIC, CREAT ####[address] Automated eosinophil countOr dered By: Michele Arteaga on 03-23-2023 Eosinophils (Bld) [#/Vol] 0.1 10*3/uL Normal 0.0-0.45 [facility] Comment on above: Performed By: #### E SR, CBC, HEPATIC, CREAT ####[address] Automated monocyte %Ordered By: Michele Arteaga on 03-23-2023 Monocytes/100 WBC (Bld) 12.3 % Normal . [facility] Comment on above: Performed By: #### E SR, CBC, HEPATIC, CREAT ####[address] Automated neutrophil %Ordere d By: Michele Arteaga on 03-23-2023 Neutrophils/100 WBC (Bld) 73.2 % Normal . [facility] Comment on above: Performed By: #### E SR, CBC, HEPATIC, CREAT ####[address] Bilirubin.direct [Mass/volum e] in Serum or PlasmaOrdered By: Michele Arteaga on 03-23-2023 Bilirubin.direct [Mass/Vol] 0.20 mg/dL 0.03-0.18 [facility] Bilirubin.total [Mass/volume ] in Serum or PlasmaOrdered By: Michele Arteaga on 03-23-2023 Bilirubin [Mass/Vol] 0.7 mg/dL Normal 0.3-1.0 [facility] Comment on above: Performed By: #### E SR, CBC, HEPATIC, CREAT ####[place] [id number] Complete Blood Count Auto Di ffon 03-23-2023 Mean Corpuscular HGB Conc 34.2 g/dL Normal 32.5-35.6 [facility] Comment on above: Performed By: #### E SR, CBC, HEPATIC, CREAT ####[place] [id number] NRBC% 0.1 /100{WBC} Normal 0-0.5 [facility] Comment on above: Performed By: #### E SR, CBC, HEPATIC, CREAT ####[address] Creatinineon 03-23-2023 GFR/1.73 sq M.predicted MDRD (S/P/Bld) [Vol rate/Area] mL/min/{1.73_m2} Normal [facility] Comment on above: Result Comment: PERF ORMED BY: [facility] [address] [place] [id number] PATHOLOGIST INSTRUCTIONAL SUPPORT SERVICES DIRECTOR NIYA BARRERA M.D. Performed By: #### E SR, CBC, HEPATIC, CREAT ####[address] Creatinine [Mass/volume] in Serum or PlasmaOrdered By: Michele Arteaga on 03-23-2023 Creatinine [Mass/Vol] 1.10 mg/dL Normal 0.70-1.30 [facility] Comment on above: Performed By: #### E SR, CBC, HEPATIC, CREAT ####[address] Erythrocyte Sedimentation Ra shayy 03-23-2023 ESR (Bld) [Velocity] 21 mm/h High 0-19 [facility] Comment on above: Result Comment: PERF ORMED BY: [facility] [address] [place] [id number] PATHOLOGIST INSTRUCTIONAL SUPPORT SERVICES DIRECTOR NIYA BARRERA M.D. Performed By: #### E SR, CBC, HEPATIC, CREAT ####[place] [id number] Erythrocyte distribution wid th [Ratio] by Automated countOrdered By: Michele Arteaga on 03-23-2023 Erythrocyte distribution width (RBC) [Ratio] 14.8 % Normal 12.0-14.8 [facility] Comment on above: Performed By: #### E SR, CBC, HEPATIC, CREAT ####[address] Erythrocyte sedimentation ra te by Photometric methodOrdered By: Michele Arteaga on 03-23-2023 ESR Photometric method (Bld) [Velocity] 21 mm/hr 0-19 [facility] Erythrocytes [#/volume] in B lood by Automated countOrdered By: Michele Arteaga on 03-23-2023 RBC (Bld) [#/Vol] 3.21 10*6/uL Low 3.90-5.60 [facility] Comment on above: Performed By: #### E SR, CBC, HEPATIC, CREAT ####[address] Hematocrit [Volume Fraction] of Blood by Automated countOrdered By: Michele Arteaga on 03-23-2023 Hematocrit (Bld) [Volume fraction] 30.1 % Low 38.8-50.0 [facility] Comment on above: Performed By: #### E SR, CBC, HEPATIC, CREAT ####[address] Hemoglobin [Mass/volume] in BloodOrdered By: Michele Arteaga on 03-23-2023 Hemoglobin (Bld) [Mass/Vol] 10.3 g/dL Low 13.0-17.0 [facility] Comment on above: Performed By: #### E SR, CBC, HEPATIC, CREAT ####[address] [place] [address] [facility] Hepatic Panelon 03-23-2023 Albumin [Mass/Vol] 4.4 g/dL Normal 3.5-5.7 [facility] Comment on above: Performed By: #### E SR, CBC, HEPATIC, CREAT ####[place] [id number] [place] [id number] [facility] Bilirubin,Indirect 0.5 mg/dL Normal [facility] Comment on above: Performed By: #### E SR, CBC, HEPATIC, CREAT ####[place] [id number] [facility] Bilirubin.indirect [Mass/Vol] 0.20 mg/dL High 0.03-0.18 [facility] Comment on above: Performed By: #### E SR, CBC, HEPATIC, CREAT ####[place] [id number] [facility] Leukocytes [#/volume] correc bert for nucleated erythrocytes in Blood by Automated counOrdered By: Michele Arteaga on 03-23-2023 WBC corrected for nucl RBC Auto (Bld) [#/Vol] 5.9 10*3/uL 4.1-10.5 [facility] Leukocytes [#/volume] in Blo od by Automated countOrdered By: Michele Arteaga on 03-23-2023 WBC (Bld) [#/Vol] 5.9 10*3/uL Normal 4.1-10.5 [facility] Comment on above: Performed By: #### E SR, CBC, HEPATIC, CREAT ####[place] [id number] [facility] Lymphocytes [#/volume] in Bl ood by Automated countOrdered By: Michele Arteaga on 03-23-2023 Lymphocytes (Bld) [#/Vol] 0.7 10*3/uL Low 1.00-4.8 [facility] Comment on above: Performed By: #### E SR, CBC, HEPATIC, CREAT ####[place] [id number] [facility] Lymphocytes/100 leukocytes i n Blood by Automated countOrdered By: Michele Arteaga on 03-23-2023 Lymphocytes/100 WBC (Bld) 12.4 % Normal . [facility] Comment on above: Performed By: #### E SR, CBC, HEPATIC, CREAT ####[facility] [id number] MCH [Entitic mass] by Automa bert countOrdered By: Michele Arteaga on 03-23-2023 MCH (RBC) [Entitic mass] 32.1 pg Normal 27.5-35.2 [facility] Comment on above: Performed By: #### E SR, CBC, HEPATIC, CREAT ####[address] MCHC Auto (RBC) [Mass/Vol]Or dered By: Michele Arteaga on 03-23-2023 MCHC (RBC) [Mass/Vol] 34.2 g/dL 32.5-35.6 [facility] MCV [Entitic volume] by Auto mated countOrdered By: Michele Arteaga on 03-23-2023 MCV (RBC) [Entitic vol] 93.8 fL Normal 83.5-101 [facility] Comment on above: Performed By: #### E SR, CBC, HEPATIC, CREAT ####[address] Neutrophils [#/volume] in Bl ood by Automated countOrdered By: Michele Arteaga on 03-23-2023 Neutrophils (Bld) [#/Vol] 4.3 10*3/uL Normal 1.8-7.7 [facility] Comment on above: Performed By: #### E SR, CBC, HEPATIC, CREAT ####[address] No Panel InformationOrdered By: Michele Arteaga on 03-23-2023 Estimated GFR (CKD-EPI) > 60.0 mL/Min [facility] Creatinine Clearance (Chem N/A [facility] Nucleated erythrocytes [Pres ence] in Blood by Automated countOrdered By: Michele Arteaga on 03-23-2023 Nucleated RBC Auto Ql (Bld) 0.1 /100{WBC} 0-0.5 [facility] Platelet mean volume [Entiti c volume] in Blood by Automated countOrdered By: Michele Arteaga on 03-23-2023 Platelet mean volume (Bld) [Entitic vol] 8.2 fL Normal 6.6-10.1 [facility] Comment on above: Performed By: #### E SR, CBC, HEPATIC, CREAT ####[address] Platelets [#/volume] in Bloo d by Automated countOrdered By: Michele Arteaga on 03-23-2023 Platelets (Bld) [#/Vol] 162 10*3/uL Normal 150-450 [facility] Comment on above: Performed By: #### E SR, CBC, HEPATIC, CREAT ####[address] Protein [Mass/volume] in Ser um or PlasmaOrdered By: Michele Arteaga on 03-23-2023 Protein [Mass/Vol] 6.2 g/dL Low 6.4-8.9 [facility] Comment on above: Performed By: #### E SR, CBC, HEPATIC, CREAT ####[place] [id number] [facility] Serum globulin measurement b y calculation (mass/volume)Ordered By: Michele Arteaga on 03-23-2023 Globulin (S) [Mass/Vol] 1.8 g/dL Normal [facility] Comment on above: Performed By: #### E SR, CBC, HEPATIC, CREAT ####[place] [id number] [facility] Serum or plasma albumin/glob ulin mass ratioOrdered By: Michele Arteaga on 03-23-2023 Albumin/Globulin [Mass ratio] 2.4 {ratio} Normal [facility] Comment on above: Performed By: #### E SR, CBC, HEPATIC, CREAT ####[place] [id number] [facility] Serum or plasma non-glucuron idated bilirubin measurement (mass/volume)Ordered By: Michele Arteaga on 03-23-2023 Bilirubin.indirect [Mass/Vol] 0.5 mg/dL [facility] Covid-19 PCR (CVDTB)on 01-03 SARS-CoV-2 (COVID-19) RNA JOSEMANUEL+probe Ql (Unsp spec) Not detected Normal NOT DETECTED [facility] Comment on above: Result Comment: This test is not yet approved or cleared by the [place] FDA. When there are no FDA-approved or cleared tests available, and other criteria are met, FDA can make tests available under an emergency access mechanism called an Emergency Use Authorization (EUA). The EUA for this test is supported by the Manager Cardiovascular of Health and Human Service's (HHS's) declaration [...] consistent with SARS-CoV-2. Performed By: #### [facility] #### [facility] [address] [place] [address] Dr. Robb Martin SYMPTOMATIC COVID-19 ANTIGEN on 01-22-2023 EUA Statement SEE BELOW Normal [facility] Comment on above: Result Comment: This test [...] sooner. Performed By: #### C VDAGS #### [facility] [address], [place] [address] Dr. Robb Martin SARS-CoV-2 (COVID-19) RNA JOSEMANUEL+probe Ql (Unsp spec) Negative Normal NEGATIVE [facility] Comment on above: Performed By: #### C VDAGS #### [facility] [address], [place] [address] Dr. Robb Martin Albumin [Mass/volume] in Ser um or PlasmaOrdered By: Michele Arteaga on 11-19-2022 Albumin [Mass/Vol] 4.1 g/dL 3.2-5.5 [facility] Basophils Auto (Bld) [#/Vol] Ordered By: Michele Arteaga on 11-19-2022 Basophils (Bld) [#/Vol] 0.1 10*3/uL 0.0-0.2 [facility] Basophils/100 WBC Auto (Bld) Ordered By: Michele Arteaga on 11-19-2022 Basophils/100 WBC (Bld) 1.0 % . [facility] Creatinine and Glomerular fi ltration rate.predicted panel (S/P/Bld)Ordered By: Michele Arteaga on 11-19-2022 Creatinine [Mass/Vol] 1.11 mg/dL 0.64-1.27 [facility] Direct bilirubin measurement Ordered By: Michele Arteaga on 11-19-2022 Bilirubin.direct [Mass/Vol] 0.2 mg/dL 0.0-0.4 [facility] Eosinophils Auto (Bld) [#/Vo l]Ordered By: Michele Arteaga on 11-19-2022 Eosinophils (Bld) [#/Vol] 0.1 10*3/uL 0.0-0.45 [facility] Eosinophils/100 WBC Auto (Bl d)Ordered By: Michele Arteaga on 11-19-2022 Eosinophils/100 WBC (Bld) 1.6 % . [facility] Erythrocyte distribution wid th Auto (RBC) [Ratio]Ordered By: Michele Arteaga on 11-19-2022 Erythrocyte distribution width (RBC) [Ratio] 14.1 % 12.0-14.8 [facility] Erythrocyte sedimentation ra te by Photometric methodOrdered By: Michele Arteaga on 11-19-2022 ESR Photometric method (Bld) [Velocity] 14 mm/hr 0-19 [facility] Estimated glomerular filtrat ion rate (GFR) non- AmericanOrdered By: Michele Arteaga on 11-19-2022 GFR/1.73 sq M.predicted among non-blacks MDRD (S/P/Bld) [Vol rate/Area] > 60 mL/Min [facility] Globulin Calc (S) [Mass/Vol] Ordered By: Michele Arteaga on 11-19-2022 Globulin (S) [Mass/Vol] 2.1 g/dL [facility] Hematocrit Auto (Bld) [Volum e fraction]Ordered By: Michele Arteaga on 11-19-2022 Hematocrit (Bld) [Volume fraction] 34.7 % 38.8-50.0 [facility] Hemoglobin [Mass/volume] in BloodOrdered By: Michele Arteaga on 11-19-2022 Hemoglobin (Bld) [Mass/Vol] 11.4 g/dL 13.0-17.0 [facility] Leukocytes [#/volume] correc bert for nucleated erythrocytes in Blood by Automated counOrdered By: Michele Arteaga on 11-19-2022 WBC corrected for nucl RBC Auto (Bld) [#/Vol] 4.8 10*3/uL 4.1-10.5 [facility] Lymphocytes Auto (Bld) [#/Vo l]Ordered By: Michele Arteaga on 11-19-2022 Lymphocytes (Bld) [#/Vol] 0.7 10*3/uL 1.00-4.8 [facility] Lymphocytes/100 WBC Auto (Bl d)Ordered By: Michele Arteaga on 11-19-2022 Lymphocytes/100 WBC (Bld) 15.2 % . [facility] MCH Auto (RBC) [Entitic mass ]Ordered By: Michele Arteaga on 11-19-2022 MCH (RBC) [Entitic mass] 30.8 pg 27.5-35.2 [facility] MCHC Auto (RBC) [Mass/Vol]Or dered By: Michele Arteaga on 11-19-2022 MCHC (RBC) [Mass/Vol] 32.7 g/dL 32.5-35.6 [facility] MCV Auto (RBC) [Entitic vol] Ordered By: Michele Arteaga on 11-19-2022 MCV (RBC) [Entitic vol] 94.2 fL 83.5-101 [facility] Monocytes Auto (Bld) [#/Vol] Ordered By: Michele Arteaga on 11-19-2022 Monocytes (Bld) [#/Vol] 0.6 10*3/uL 0.0-0.8 [facility] Monocytes/100 WBC Auto (Bld) Ordered By: Michele Arteaga on 11-19-2022 Monocytes/100 WBC (Bld) 11.5 % . [facility] Neutrophils Auto (Bld) [#/Vo l]Ordered By: Michele Arteaga on 11-19-2022 Neutrophils (Bld) [#/Vol] 3.4 10*3/uL 1.8-7.7 [facility] Neutrophils/100 WBC Auto (Bl d)Ordered By: Michele Arteaga on 11-19-2022 Neutrophils/100 WBC (Bld) 70.7 % . [facility] No Panel InformationOrdered By: Michele Arteaga on 11-19-2022 Estimated GFR () > 60 mL/Min [facility] Comment on above: GFR estimated refere nce range: According to KDOQI guidelines, <60 ml/min/1.73m2 is sufficient to diagnose a patient with chronic kidney disease. Pharmacy Creatinine Clearance (Chem N/A [facility] Nucleated erythrocytes [Pres ence] in Blood by Automated countOrdered By: Michele Arteaga on 11-19-2022 Nucleated RBC Auto Ql (Bld) 0.0 /100{WBC} 0-0.5 [facility] Platelet mean volume Auto (B ld) [Entitic vol]Ordered By: Michele Arteaga on 11-19-2022 Platelet mean volume (Bld) [Entitic vol] 9.3 fL 6.6-10.1 [facility] Platelets Auto (Bld) [#/Vol] Ordered By: Michele Arteaga on 11-19-2022 Platelets (Bld) [#/Vol] 122 10*3/uL 150-450 [facility] Protein [Mass/volume] in Ser um or PlasmaOrdered By: Michele Arteaga on 11-19-2022 Protein [Mass/Vol] 6.2 g/dL 6.1-7.9 [facility] RBC Auto (Bld) [#/Vol]Ordere d By: Michele Arteaga on 11-19-2022 RBC (Bld) [#/Vol] 3.69 10*6/uL 3.90-5.60 [facility] Serum or plasma alanine ervin otransferase measurement without P-5'-P (enzymatic activiOrdered By: Michele Arteaga on 11-19-2022 ALT No additional P-5'-P [Catalytic activity/Vol] 33 U/L 10-60 [facility] Serum or plasma albumin/glob ulin mass ratioOrdered By: Michele Arteaga on 11-19-2022 Albumin/Globulin [Mass ratio] 2.0 {ratio} [facility] Serum or plasma alkaline daniel sphatase measurement (enzymatic activity/volume)Ordered By: Michele Arteaga on 11-19-2022 ALP [Catalytic activity/Vol] 78 U/L 32-92 [facility] Serum or plasma aspartate am inotransferase measurement (enzymatic activity/volume)Ordered By: Michele Arteaga on 11-19-2022 AST [Catalytic activity/Vol] 26 U/L 10-42 [facility] Serum or plasma non-glucuron idated bilirubin measurement (mass/volume)Ordered By: Michele Arteaga on 11-19-2022 Bilirubin.indirect [Mass/Vol] 0.4 mg/dL [facility] Serum or plasma total biliru bin measurement (mass/volume)Ordered By: Michele Arteaga on 11-19-2022 Bilirubin [Mass/Vol] 0.6 mg/dL 0.3-1.2 [facility] WBC Auto (Bld) [#/Vol]Ordere d By: Michele Arteaga on 11-19-2022 WBC (Bld) [#/Vol] 4.8 10*3/uL 4.1-10.5 [facility] CBC AUTO DIFFon 11-05-2022 BASO # 0.0 103/ul Normal 0.0-0.1 [facility] Comment on above: Performed By: #### C BC #### [facility] [address] [place] [address] [address] Robb Martin Basophils/100 WBC (Bld) 0.7 % Normal 0.2-2.0 [facility] Comment on above: Performed By: #### C BC #### [facility] [address] [place] [address] [address] Robb Martin EO # 0.1 103/ul Normal 0.0-0.7 [facility] Comment on above: Performed By: #### C BC #### [facility] [address] [place] [address] [address] Robb Martin Eosinophils/100 WBC (Bld) 1.9 % Normal 0.9-7.0 [facility] Comment on above: Performed By: #### C BC #### [facility] [address] [place] [address] Dr. Robb Martin Erythrocyte distribution width (RBC) [Ratio] 13.4 % Normal 11.0-15.0 [facility] Comment on above: Performed By: #### C BC #### [facility] [address] [place] [address] [address] Robb Martin Hematocrit (Bld) [Volume fraction] 33.3 % Critically low 42.0-54.0 [facility] Comment on above: Performed By: #### C BC #### [facility] [address] [place] [address] Dr. Robb Martin Hemoglobin (Bld) [Mass/Vol] 11.1 g/dL Critically low 14.0-18.0 [facility] Comment on above: Performed By: #### C BC #### [facility] [address] [place] [address] [address] Robb Martni IG # 0.01 10e3/ul Normal 0.00-0.03 [facility] Comment on above: Performed By: #### C BC #### [facility] [address] [place] [address] Dr. Rbob Martin IG % 0.2 % Normal 0.0-0.5 [facility] Comment on above: Performed By: #### C BC #### [facility] [address] [place] [address] Dr. Robb Martin LYMPH # 0.8 103/ul Critically low 1.2-3.8 [facility] Comment on above: Performed By: #### C BC #### [facility] [address] [place] [address] Dr. Robb Martin Lymphocytes/100 WBC (Bld) 17.6 % Critically low 20.5-60.0 [facility] Comment on above: Performed By: #### C BC #### [facility] [address] [place] [address] Dr. Robb Martin MANUAL DIFF REQ NO Normal [facility] Comment on above: Performed By: #### C BC #### [facility] [address] [place] [address] Dr. Robb Martin MCH (RBC) [Entitic mass] 30.4 pg Normal 25.9-34.0 [facility] Comment on above: Performed By: #### C BC #### [facility] [address] [place] [address] Dr. Robb Martin MCHC (RBC) [Mass/Vol] 33.3 g/dL Normal 29.9-35.2 [facility] Comment on above: Performed By: #### C BC #### [facility] [address] [place] [address] Dr. Robb Martin MCV (RBC) [Entitic vol] 91.2 fL Normal 80.0-94.0 [facility] Comment on above: Performed By: #### C BC #### [facility] [address] [place] [address] Dr. Robb Martin MONO # 0.6 103/ul Normal 0.3-0.8 [facility] Comment on above: Performed By: #### C BC #### [facility] [address] [place] [address] Dr. Robb Martin Monocytes/100 WBC (Bld) 13.9 % Critically high 1.7-12. 0 [facility] Comment on above: Performed By: #### C BC #### [facility] [address] [place] [address] [address] Robb Martin NEUT # 2.8 103/ul Normal 1.4-6.5 [facility] Comment on above: Performed By: #### C BC #### [facility] [address] [place] [address] [address] Robb Martin Neutrophils/100 WBC (Bld) 65.7 % Normal 43.0-75.0 [facility] Comment on above: Performed By: #### C BC #### [facility] [address] [place] [address] Dr. Robb Martin Platelet mean volume (Bld) [Entitic vol] 10.3 fL Normal 9.5-13.5 [facility] Comment on above: Performed By: #### C BC #### [facility] [address] [place] [address] Dr. Robb Martin PLT 141 103/ul Critically low 150-450 [facility] Comment on above: Performed By: #### C BC #### [facility] [address] [place] [address] Dr. Robb Martin RBC 3.65 106/ul Critically low 4.70-6.[address] [facility] Comment on above: Performed By: #### C BC #### [facility] [address] [place] [address] Dr. Robb Martin WBC 4.3 103/ul Normal 4.0-11.0 [facility] Comment on above: Performed By: #### C BC #### [facility] [address] [place] [address] Dr. Robb Martin PROF CHEM 8 (BAS METB)on Anion gap [Moles/Vol] 11.3 mmol/L Normal [facility] Comment on above: Performed By: #### B MP ####[facility] [address] [address]Dr. Robb Martin Calcium [Mass/Vol] 9.2 mg/dL Normal 8.5-10.1 [facility] Comment on above: Performed By: #### B MP ####[facility] [address] [address]Dr. Robb Martin Chloride [Moles/Vol] 105 mmol/L Normal 98-107 [facility] Comment on above: Performed By: #### B MP ####[facility] [address] [place], [place] [address]Dr. Robb Martin CO2 [Moles/Vol] 30.7 mmol/L Normal 21.0-32.0 [facility] Comment on above: Performed By: #### B MP ####[facility] [address] [place], [place] [address]Dr. Robb Martin Creatinine [Mass/Vol] 1.01 mg/dL Normal 0.70-1.30 [facility] Comment on above: Performed By: #### B MP ####[facility] [address] [place], [place] [address]Dr. Robb Martin EGFR-AF NAURUAN >60 Normal >=60 [facility] Comment on above: Performed By: #### B MP ####[facility] [address] [place], [place] [address]Dr. Robb Martin EGFR-NON AF NAURUAN >60 Normal >=60 [facility] Comment on above: Performed By: #### B MP ####[facility] [address] [place], [place] [address]Dr. Robb Martin Glucose [Mass/Vol] 103 mg/dL Normal 74-106 [facility] Comment on above: Performed By: #### B MP ####[facility] [address] [place], [place] [address]Dr. Robb Martin Potassium [Moles/Vol] 4.0 mmol/L Normal 3.5-5.1 [facility] Comment on above: Performed By: #### B MP ####[facility] [address] [place], [place] [address]Dr. Robb Martin Sodium [Moles/Vol] 143 mmol/L Normal 136-145 [facility] Comment on above: Performed By: #### B MP ####[facility] [address] [address]Dr. Robb Martin Urea nitrogen [Mass/Vol] 17.0 mg/dL Normal 7.0-18.0 [facility] Comment on above: Performed By: #### B MP ####[facility] [address] [address]Dr. Robb Martin Urea nitrogen/Creatinine [Mass ratio] 16.8 mg/mg Normal [facility] Comment on above: Performed By: #### B MP ####[facility] [address] [address]Dr. Robb Martin CBC AUTO DIFFon 09-29-2022 BASO # 0.0 103/ul Normal 0.0-0.1 [facility] Comment on above: Performed By: #### C BC #### [facility] [address] [place] [address] Dr. Robb Martin Basophils/100 WBC (Bld) 0.6 % Normal 0.2-2.0 [facility] Comment on above: Performed By: #### C BC #### [facility] [address] [place] [address] Dr. Robb Martin EO # 0.1 103/ul Normal 0.0-0.7 [facility] Comment on above: Performed By: #### C BC #### [facility] [address] [place] [address] Dr. Robb Martin Eosinophils/100 WBC (Bld) 1.4 % Normal 0.9-7.0 [facility] Comment on above: Performed By: #### C BC #### [facility] [address] [place] [address] Dr. Robb Martin Erythrocyte distribution width (RBC) [Ratio] 13.9 % Normal 11.0-15.0 [facility] Comment on above: Performed By: #### C BC #### [facility] [address] [place] [address] Dr. Robb Martin Hematocrit (Bld) [Volume fraction] 35.4 % Critically low 42.0-54.0 [facility] Comment on above: Performed By: #### C BC #### [facility] [address] [place] [address] Dr. Robb Martin Hemoglobin (Bld) [Mass/Vol] 11.3 g/dL Critically low 14.0-18.0 [facility] Comment on above: Performed By: #### C BC #### [facility] [address] [place] [address] Dr. Robb Martin IG # 0.01 10e3/ul Normal 0.00-0.03 [facility] Comment on above: Performed By: #### C BC #### [facility] [address] [place] [address] Dr. Robb Martin IG % 0.2 % Normal 0.0-0.5 [facility] Comment on above: Performed By: #### C BC #### [facility] [address] [place] [address] Dr. Robb Martin LYMPH # 0.7 103/ul Critically low 1.2-3.8 [facility] Comment on above: Performed By: #### C BC #### [facility] [address] [place] [address] Dr. Robb Martin Lymphocytes/100 WBC (Bld) 14.4 % Critically low 20.5-60.0 [facility] Comment on above: Performed By: #### C BC #### [facility] [address] [place] [address] Dr. Robb Martin MANUAL DIFF REQ NO Normal [facility] Comment on above: Performed By: #### C BC #### [facility] [address] [place] [address] Dr. Robb Martin MCH (RBC) [Entitic mass] 31.3 pg Normal 25.9-34.0 [facility] Comment on above: Performed By: #### C BC #### [facility] [address] [place] [address] Dr. Robb Martin MCHC (RBC) [Mass/Vol] 31.9 g/dL Normal 29.9-35.2 [facility] Comment on above: Performed By: #### C BC #### [facility] [address] [place] [address] Dr. Robb Martin MCV (RBC) [Entitic vol] 98.1 fL Critically high 80.0-94 .0 [facility] Comment on above: Performed By: #### C BC #### [facility] [address] [place] [address] Dr. Robb Martin MONO # 0.6 103/ul Normal 0.3-0.8 [facility] Comment on above: Performed By: #### C BC #### [facility] [address] [place] [address] Dr. Robb Martin Monocytes/100 WBC (Bld) 11.1 % Normal 1.7-12.0 [facility] Comment on above: Performed By: #### C BC #### [facility] [address] [place] [address] Dr. Robb Martin NEUT # 3.7 103/ul Normal 1.4-6.5 [facility] Comment on above: Performed By: #### C BC #### [facility] [address] [place] [address] Dr. Robb Martin Neutrophils/100 WBC (Bld) 72.3 % Normal 43.0-75.0 [facility] Comment on above: Performed By: #### C BC #### [facility] [address] [place] [address] Dr. Robb Martin Platelet mean volume (Bld) [Entitic vol] 10.4 fL Normal 9.5-13.5 [facility] Comment on above: Performed By: #### C BC #### [facility] [address] [place] [address] Dr. Robb Martin PLT 122 103/ul Critically low 150-450 [facility] Comment on above: Performed By: #### C BC #### [facility] [address] [place], [place] [address] Dr. Robb Martin RBC 3.61 106/ul Critically low 4.70-6.10 [facility] Comment on above: Performed By: #### C BC #### [facility] [address] [address] [address] Robb Martin WBC 5.2 103/ul Normal 4.0-11.0 [facility] Comment on above: Performed By: #### C BC #### [facility] [address] [address] [address] Robb Martin PROF CHEM 8 (BAS METB)on Anion gap [Moles/Vol] 10.6 mmol/L Normal [facility] Comment on above: Performed By: #### B MP ####[facility] [address] [address]DrSantos Martin Calcium [Mass/Vol] 9.3 mg/dL Normal 8.5-10.1 [facility] Comment on above: Performed By: #### B MP ####[facility] [address] [address]DrSantos Martin Chloride [Moles/Vol] 103 mmol/L Normal 98-107 [facility] Comment on above: Performed By: #### B MP ####[facility] [address] [address]DrSantos Martin CO2 [Moles/Vol] 30.2 mmol/L Normal 21.0-32.0 [facility] Comment on above: Performed By: #### B MP ####[facility] [address] [address]DrSantos Martin Creatinine [Mass/Vol] 0.98 mg/dL Normal 0.70-1.30 [facility] Comment on above: Performed By: #### B MP ####[facility] [address] [address]DrSantos Martin EGFR-AF NAURUAN >60 Normal >=60 [facility] Comment on above: Performed By: #### B MP ####[facility] [address] [address]DrSantos Martin EGFR-NON AF NAURUAN >60 Normal >=60 [facility] Comment on above: Performed By: #### B MP ####[facility] [address] [address]Dr. Robb Martin Glucose [Mass/Vol] 99 mg/dL Normal 74-106 [facility] Comment on above: Performed By: #### B MP ####[facility] [address] [address]Dr. Robb Martin Potassium [Moles/Vol] 3.8 mmol/L Normal 3.5-5.1 [facility] Comment on above: Performed By: #### B MP ####[facility] [address] [address]Dr. Robb Martin Sodium [Moles/Vol] 140 mmol/L Normal 136-145 [facility] Comment on above: Performed By: #### B MP ####[facility] [address] [address]Dr. Robb Martin Urea nitrogen [Mass/Vol] 20.0 mg/dL Critically high 7.0-18.0 [facility] Comment on above: Performed By: #### B MP ####[facility] [address] [address]Dr. Robb Martin Urea nitrogen/Creatinine [Mass ratio] 20.4 mg/mg Normal [facility] Comment on above: Performed By: #### B MP ####[facility] [address] [id number]. Robb Mario Basophils Auto (Bld) [#/Vol] Ordered By: Michele Arteaga on 07-20-2022 Basophils (Bld) [#/Vol] 0.0 10*3/uL 0.0-0.2 [facility] Basophils/100 WBC Auto (Bld) Ordered By: Michele Arteaga on 07-20-2022 Basophils/100 WBC (Bld) 0.8 % . [facility] Body fluid albumin measureme nt (mass/volume)Ordered By: Michele Arteaga on 07-20-2022 Albumin (Body fld) [Mass/Vol] 3.8 g/dL 3.2-5.5 [facility] Creatinine and Glomerular fi ltration rate.predicted panel (S/P/Bld)Ordered By: Michele Arteaga on 07-20-2022 Creatinine [Mass/Vol] 1.00 mg/dL 0.64-1.27 [facility] Direct bilirubin measurement Ordered By: Michele Arteaga on 07-20-2022 Bilirubin.direct [Mass/Vol] 0.2 mg/dL 0.0-0.4 [facility] Eosinophils Auto (Bld) [#/Vo l]Ordered By: Michele Arteaga on 07-20-2022 Eosinophils (Bld) [#/Vol] 0.0 10*3/uL 0.0-0.45 [facility] Eosinophils/100 WBC Auto (Bl d)Ordered By: Michele Arteaga on 07-20-2022 Eosinophils/100 WBC (Bld) 1.0 % . [facility] Erythrocyte distribution wid th Auto (RBC) [Ratio]Ordered By: Michele Arteaga on 07-20-2022 Erythrocyte distribution width (RBC) [Ratio] 14.7 % 12.0-14.8 [facility] Erythrocyte sedimentation ra te by Photometric methodOrdered By: Michele Arteaga on 07-20-2022 ESR Photometric method (Bld) [Velocity] 13 mm/hr 0-19 [facility] Estimated glomerular filtrat ion rate (GFR) non- AmericanOrdered By: Michele Arteaga on 07-20-2022 GFR/1.73 sq M.predicted among non-blacks MDRD (S/P/Bld) [Vol rate/Area] > 60 mL/Min [facility] Globulin Calc (S) [Mass/Vol] Ordered By: Michele Arteaga on 07-20-2022 Globulin (S) [Mass/Vol] 2.1 g/dL [facility] Hematocrit Auto (Bld) [Volum e fraction]Ordered By: Michele Arteaga on 07-20-2022 Hematocrit (Bld) [Volume fraction] 32.4 % 38.8-50.0 [facility] Hemoglobin [Mass/volume] in BloodOrdered By: Michele Arteaga on 07-20-2022 Hemoglobin (Bld) [Mass/Vol] 10.8 g/dL 13.0-17.0 [facility] Laboratory - Hematology and Cell countsOrdered By: Michele Arteaga on 07-20-2022 Nucleated RBC/100 WBC (Bld) [Ratio] 0.0 % 0-0.5 [facility] Leukocytes [#/volume] in Blo od by Automated countOrdered By: Michele Arteaga on 07-20-2022 WBC (Bld) [#/Vol] 4.6 10*3/uL 4.5-11.0 [facility] Lymphocytes Auto (Bld) [#/Vo l]Ordered By: Michele Arteaga on 07-20-2022 Lymphocytes (Bld) [#/Vol] 0.6 10*3/uL 1.00-4.8 [facility] Lymphocytes/100 WBC Auto (Bl d)Ordered By: Michele Arteaga on 07-20-2022 Lymphocytes/100 WBC (Bld) 13.8 % . [facility] MCH Auto (RBC) [Entitic mass ]Ordered By: Michele Arteaga on 07-20-2022 MCH (RBC) [Entitic mass] 31.8 pg 27.5-35.2 [facility] MCHC Auto (RBC) [Mass/Vol]Or dered By: Michele Arteaga on 07-20-2022 MCHC (RBC) [Mass/Vol] 33.2 g/dL 32.5-35.6 [facility] MCV Auto (RBC) [Entitic vol] Ordered By: Michele Arteaga on 07-20-2022 MCV (RBC) [Entitic vol] 95.8 fL 83.5-101 [facility] Monocytes Auto (Bld) [#/Vol] Ordered By: Michele Arteaga on 07-20-2022 Monocytes (Bld) [#/Vol] 0.4 10*3/uL 0.0-0.8 [facility] Monocytes/100 WBC Auto (Bld) Ordered By: Michele Arteaga on 07-20-2022 Monocytes/100 WBC (Bld) 9.1 % . [facility] Neutrophils Auto (Bld) [#/Vo l]Ordered By: Michele Arteaga on 07-20-2022 Neutrophils (Bld) [#/Vol] 3.5 10*3/uL 1.8-7.7 [facility] Neutrophils/100 WBC Auto (Bl d)Ordered By: Michele Arteaga on 07-20-2022 Neutrophils/100 WBC (Bld) 75.3 % . [facility] No Panel InformationOrdered By: Michele Arteaga on 07-20-2022 Estimated GFR () > 60 mL/Min [facility] Comment on above: GFR estimated refere nce range: According to KDOQI guidelines, <60 ml/min/1.73m2 is sufficient to diagnose a patient with chronic kidney disease. Pharmacy Creatinine Clearance (Chem N/A [facility] [facility] Plate[facility] mean volume Auto (B ld) [Entitic vol]Ordered By: Michele Arteaga on 07-20-2022 Platelet mean volume (Bld) [Entitic vol] 8.7 fL 6.6-10.1 [facility] Platelets Auto (Bld) [#/Vol] Ordered By: Michele Arteaga on 07-20-2022 Platelets (Bld) [#/Vol] 140 10*3/uL 150-450 [facility] Protein [Mass/volume] in Ser um or PlasmaOrdered By: Michele Arteaga on 07-20-2022 Protein [Mass/Vol] 5.9 g/dL 6.1-7.9 [facility] RBC Auto (Bld) [#/Vol]Ordere d By: Michele Arteaga on 07-20-2022 RBC (Bld) [#/Vol] 3.39 10*6/uL 3.90-5.60 [facility] Serum or plasma alanine ervin otransferase measurement without P-5'-P (enzymatic activiOrdered By: Michele Arteaga on 07-20-2022 ALT No additional P-5'-P [Catalytic activity/Vol] 29 U/L 1060 [facility] Serum or plasma albumin/glob ulin mass ratioOrdered By: Michele Arteaga on 07-20-2022 Albumin/Globulin [Mass ratio] 1.8 {ratio} [facility] Serum or plasma alkaline daniel sphatase measurement (enzymatic activity/volume)Ordered By: Michele Arteaga on 07-20-2022 ALP [Catalytic activity/Vol] 68 U/L 32-92 [facility] Serum or plasma aspartate am inotransferase measurement (enzymatic activity/volume)Ordered By: Michele Arteaga on 07-20-2022 AST [Catalytic activity/Vol] 24 U/L [facility] Serum or plasma non-glucuron idated bilirubin measurement (mass/volume)Ordered By: Michele Arteaga on 07-20-2022 Bilirubin.indirect [Mass/Vol] 0.7 mg/dL [facility] Serum or plasma total biliru bin measurement (mass/volume)Ordered By: Michele Arteaga on 07-20-2022 Bilirubin [Mass/Vol] 0.9 mg/dL 0.3-1.2 [facility] ECHOCARDIO M/2D COMPLETEon 0 04-20-2022 ECHOCARDIO M/2D COMPLETE Patient: NELLY HANNON Exam Date: 04/20/2022 : 1935 Gender:M Ordering : FILIPPO JUDGE Admission #: [id number] Family : DR STEVE DE PAZ D.O. Order #: [id number] CLICK HERE TO VIEW EXAM ECHOCARDIOGRAM REPORT [...] Kate M.D. on 04/20/2022 at 17:06 Normal [facility] XR clavicle RT*on 11-03-2021 XR clavicle RT* [facility] Other XR clavicle RT* [facility] Other XR clavicle RT* [address] [facility] No rt [facility] Other XR clavicle RT* [place] [address] [address] [facility] Other XR clavicle RT* XRay Report [place] Other XR clavicle RT* Signed [employer] Other XR clavicle RT* Patient: Nelly Hannon MR#: [id number] [place] [facility] Other XR clavicle RT* 0 [facility] Other XR clavicle RT* : 1935 Acct:[id number] [employer] Other XR clavicle RT* Age/Sex: 86 / M ADM Date: 11/03/21 [employer] Other XR clavicle RT* Loc: [facility] Room: Type : [facility] [employer] Other XR clavicle RT* Attending Dr: Vinh Lawton DO [employer] Other XR clavicle RT* Ordering Provider: Vinh Lawton, [employer] Other XR clavicle RT* Date of Service: 11/03/21 [employer] Other XR clavicle RT* XR/XR clavicle RT*: Displaced fracture of lateral end of right clavicle, [employer] Other XR clavicle RT* subsequ [employer] [facility] [employer] Other XR clavicle RT* Copies to: Vinh Lawton, DO [employer] Other XR clavicle RT* [facility] [employer] Other XR clavicle RT* COMPARISON: 10/06/21 [employer] Other XR clavicle RT* HISTORY: Status post RIGHT clavicle fracture [employer] Other XR clavicle RT* There is redemonstration of the distal clavicle fracture. There is subtle callus formation [employer] Other XR clavicle RT* suggesting interval healing. Bony alignment is unchanged. [employer] Other XR clavicle RT* XR/XR clavicle RT* [employer] Other XR clavicle RT* IMPRESSION: Healing distal RIGHT clavicle fracture. Unchanged bony alignment. [employer] Other XR clavicle RT* Impression dictated by: Abdoul William M.D.11/03/2021 4:06 PM [employer] Other XR clavicle RT* Dictation Location: [place] [address] [employer] Other XR clavicle RT* Transcribed By: PHYLLIS 11/03/21 1606 [employer] Other XR clavicle RT* Dictated By: Abdoul William DO 11/03/21 1605 [employer] Other XR clavicle RT* Signed By: [employer] [facility] [employer] Other XR clavicle RT* 11/03/21 160 [employer] Other Cardiovascular Lab Reporton 08-25-2021 Cardiovascular Lab Report [facility] Patient Name: Nelly Hannon [facility] MR #: [id number] Physician: Filippo Judge MD Department of Service Date: 08/25/2021 Medicine Birthdate: 1935 Division of Room #: [facility] Cardiology Adult Cardiovascular Services [facility] [address] [facility] [place] [address] Cardiovascular Laboratory Report BIV-UPGRADE PROCEDURE NOTE DATE OF PROCEDURE: 08/25/2021 PERFORMING PHYSICIAN: Dr. Filippo Judge CONSENT: Patient LOCATION: EP Lab PROCEDURE PERFORMED: [...] occasions using seldinger technique using a 5 Peruvian micropunture needle. There was difficulty guiding the [...] lead position on orthogonal views (MCBRIDE and TIGRE) to confirm position in the septal aspect, the screw was activated. After confirmation of good sensing parameters, injury pattern and pacing thresholds, 10V pacing was done and no diaphragmatic stimulation was noted. It was then secured in the pocket using two 0- Silk sutures. I then proceeded to perform the LV lead placement. A [place] sheath was advanced into the RV over [...] lead position on orthogonal views (MCBRIDE and TIGRE) to confirm position in the septal aspect, [...] lead were then attached to a [employer]INEERING [employer]OR-D device and the leads tug tested. Pocket hemostasis was achieved, and it was then copiously and vigorously irrigated with antiobiotic so (more content not included)... Normal [facility] Social History Date Type Detail Facility Start: 10-28-2023 End: 01-19-2024 Alcohol intake Lifetime non-drinker (finding) [facility] Work Phone: Start: 10-08-2023 End: 11-08-2023 Sex Assigned At [employer] Other Start: 10-08-2023 Tobacco use and exposure Smokeless tobacco non-user [facility] Work Phone: Start: 10-08-2023 End: 11-08-2023 History of Social function [facility] Work Phone: Start: 09-28-2023 End: 01-17-2024 Exposure to SARS-CoV-2 (event) Not sure [facility] Start: 03-28-2020 End: 11-24-2023 Tobacco smoking status Never smoked tobacco (finding) [facility] Start: 1935 Sex Assigned At Not on file [facility] Start: 1935 Sex Assigned At Male [facility] Tobacco smoking status NHIS Unknown if ever smoked [facility] Vital Signs Date Time Vital Sign Value Performing Clinician Facility 03-16-2024 11:22-0400 Body height 177.8 cm DO Steve [employer] Work Phone: [facility] 03-16-2024 11:22-0400 Body mass index (BMI) [Ratio] 23.9 kg/m2 DO Steve Ball Work Phone: [facility] 03-16-2024 [id number] Body temperature 97.2 [degF] DO Steve Ball Work Phone: [facility] 03-16-2024 11:22-0400 Body weight 75.74 kg DO Steve Ball Work Phone: [facility] 03-16-2024 11:22-0400 Diastolic blood pressure 70 mm[Hg] DO Steve Ball Work Phone: [facility] 03-16-2024 11:22-0400 Heart rate 98 /min DO Steve Ball Work Phone: [facility] 03-16-2024 11:22-0400 Respiratory rate 16 /min DO Steve Ball Work Phone: [facility] 03-16-2024 [id number] SaO2% (BldA) [Mass fraction] 97 % DO Steve Ball Work Phone: [facility] 03-16-2024 11:22-0400 Systolic blood pressure 154 mm[Hg] DO Steve Ball Work Phone: [facility] 01-19-2024 08:29-0400 Body height 177.8 cm DO Steve Ball Work Phone: [facility] 01-19-2024 08:29-0400 Body mass index (BMI) [Ratio] 23.1 kg/m2 DO Steve Ball Work Phone: [facility] 01-19-2024 08:29-0400 Body weight 73.25 kg DO Steve Ball Work Phone: [facility] 01-19-2024 08:29-0400 Diastolic blood pressure 71 mm[Hg] DO Steve Ball Work Phone: [facility] 01-19-2024 08:29-0400 Heart rate 71 /min DO Steve Ball Work Phone: [facility] 01-19-2024 08:29-0400 Respiratory rate 12 /min DO Steve Ball Work Phone: [facility] 01-19-2024 08:29-0400 Systolic blood pressure 136 mm[Hg] DO Steve Ball Work Phone: [facility] 01-17-2024 15:05-0400 Body height 177.8 cm Elkin Holly MD Work Phone: [facility] 01-17-2024 15:05-0400 Body mass index (BMI) [Ratio] 22.93 kg/m2 Elkin Holly MD Work Phone: [facility] 01-17-2024 15:05-0400 Body temperature 97.7 [degF] Elkin Holly MD Work Phone: [facility] 01-17-2024 15:05-0400 Body weight 72.48 kg Elkin Holly MD Work Phone: [facility] 01-17-2024 15:05-0400 Diastolic blood pressure 69 mm[Hg] Elkin Holly MD Work Phone: [facility] 01-17-2024 15:05-0400 Systolic blood pressure 135 mm[Hg] Elkin Holly MD Work Phone: [facility] 12-17-2023 11:37-0400 Body temperature 97.2 [degF] DO Steve Ball Work Phone: [facility] 12-17-2023 11:37-0400 Body weight 78.47 kg DO Steve Ball Work Phone: [facility] 12-17-2023 11:37-0400 Diastolic blood pressure 69 mm[Hg] DO Steve Ball Work Phone: [facility] 12-17-2023 11:37-0400 Heart rate 66 /min DO Steve Ball Work Phone: [facility] 12-17-2023 11:37-0400 Respiratory rate 16 /min DO Steve Ball Work Phone: [facility] 12-17-2023 11:37-0400 SaO2% (BldA) [Mass fraction] 97 % DO Steve Ball Work Phone: [facility] 12-17-2023 11:37-0400 Systolic blood pressure 170 mm[Hg] DO Steve Ball Work Phone: [facility] 11-24-2023 08:24-0500 Body height 177.8 cm DO Steve Ball Work Phone: [facility] 11-24-2023 08:24-0500 Body mass index (BMI) [Ratio] 24.7 kg/m2 DO Steve Ball Work Phone: [facility] 11-24-2023 08:24-0500 Body temperature 97 [degF] DO Steve Ball Work Phone: [facility] 11-24-2023 08:24-0500 Body weight 78.01 kg DO Steve Ball Work Phone: [facility] 11-24-2023 08:24-0500 Diastolic blood pressure 56 mm[Hg] DO Steve Ball Work Phone: [facility] 11-24-2023 08:24-0500 Heart rate 60 /min DO Steve Ball Work Phone: [facility] 11-24-2023 08:24-0500 Respiratory rate 16 /min DO Steve Ball Work Phone: [facility] 11-24-2023 08:24-0500 SaO2% (BldA) [Mass fraction] 97 % DO Steve Ball Work Phone: [facility] 11-24-2023 08:24-0500 Systolic blood pressure 125 mm[Hg] DO Steve Ball Work Phone: [facility] 11-19-2023 10:43-0500 Body height 177.8 cm DO Steve Ball Work Phone: [facility] 11-19-2023 10:43-0500 Body weight 77.11 kg DO Steve Ball Work Phone: [facility] 11-08-2023 14:46-0500 Body height 177.8 cm Elkin Holly MD Work Phone: [facility] 11-08-2023 14:46-0500 Body mass index (BMI) [Ratio] 24.54 kg/m2 Elkin Holly MD Work Phone: [facility] 11-08-2023 14:46-0500 Body temperature 97.5 [degF] Elkin Holly MD Work Phone: [facility] 11-08-2023 14:46-0500 Body weight 77.56 kg Elkin Holly MD Work Phone: [facility] 11-08-2023 14:46-0500 Diastolic blood pressure 68 mm[Hg] Elkin Holly MD Work Phone: [facility] 11-08-2023 14:46-0500 Systolic blood pressure 155 mm[Hg] Elkin Holly MD Work Phone: [facility] 10-28-2023 18:15-0500 Diastolic blood pressure 76 mm[Hg] Elkin Holly MD Work Phone: [facility] 10-28-2023 18:15-0500 Heart rate 60 /min Elkin Holly MD Work Phone: [facility] 10-28-2023 18:15-0500 Respiratory rate 12 /min Elkin Holly MD Work Phone: [facility] 10-28-2023 18:15-0500 SaO2% (BldA) [Mass fraction] 100 % Elkin Holly MD Work Phone: [facility] 10-28-2023 18:15-0500 Systolic blood pressure 166 mm[Hg] Elkin Holly MD Work Phone: [facility] 10-28-2023 17:00-0500 Body temperature 96.8 [degF] Elkin Holly MD Work Phone: [facility] 10-28-2023 12:33-0500 Body height 177.8 cm Elkin Holly MD Work Phone: [facility] 10-28-2023 12:33-0500 Body mass index (BMI) [Ratio] 24.39 kg/m2 Elkin Holly MD Work Phone: [facility] 10-28-2023 12:33-0500 Body weight 77.11 kg Elkin Holly MD Work Phone: [facility] 10-19-2023 10:00-0500 Body height 157.48 cm Steve Ball Other [facility] 10-19-2023 10:00-0500 Body mass index (BMI) [Ratio] 31.09 kg/m2 Steve Ball Other [facility] [employer] Other 10-19-2023 10:00-0500 Body weight 77.11 kg Steve Ball Other [facility] 10-19-2023 10:00-0500 Diastolic blood pressure 80 mm[Hg] Steve Ball Other [facility] 10-19-2023 10:00-0500 Respiratory rate 12 /min Steve Ball Other [facility] [employer] Other 10-19-2023 10:00-0500 Systolic blood pressure 138 mm[Hg] Steve Ball Other [facility] 10-08-2023 09:27-0500 Body height 179.1 cm Elkin Holly MD Work Phone: [facility] 10-08-2023 09:27-0500 Body mass index (BMI) [Ratio] 24.15 kg/m2 Elkin Holly MD Work Phone: [facility] 10-08-2023 09:27-0500 Body weight 77.43 kg Elkin Holly MD Work Phone: [facility] 07-05-2023 11:00-0400 Body height 157.48 cm Steve Ball Other [employer] Other 07-05-2023 11:00-0400 Body mass index (BMI) [Ratio] 30.5 kg/m2 Steve Ball Other [employer] Other 07-05-2023 11:00-0400 Body weight 75.66 kg Steve Ball Other [employer] Other 07-05-2023 11:00-0400 Diastolic blood pressure 68 mm[Hg] Steve Ball Other [employer] Other 07-05-2023 11:00-0400 Respiratory rate 12 /min Steve Ball Other [employer] Other 07-05-2023 11:00-0400 Systolic blood pressure 148 mm[Hg] Steve Ball Other [employer] Other 05-17-2023 08:48-0400 Blood Pressure Location Cristela WINTER [facility] 05-17-2023 08:48-0400 Diastolic blood pressure 69 mm[Hg] Cristela WINTER [facility] 05-17-2023 08:48-0400 Heart rate 65 /min Cristela WINTER [facility] 05-17-2023 08:48-0400 Respiratory rate 16 /min Cristela WINTER [facility] 05-17-2023 08:48-0400 Systolic blood pressure 106 mm[Hg] Cristela WINTER [facility] 04-30-2023 11:30-0400 Body height 157.48 cm Steve Ball Other [employer] Other 04-30-2023 11:30-0400 Body mass index (BMI) [Ratio] 31.16 kg/m2 Steve Ball Other [employer] Other 04-30-2023 11:30-0400 Body weight 77.29 kg Steev Ball Other [employer] Other 04-30-2023 11:30-0400 Diastolic blood pressure 66 mm[Hg] Steve Ball Other [employer] Other 04-30-2023 11:30-0400 Respiratory rate 12 /min Steve Ball Other [employer] Other 04-30-2023 11:30-0400 Systolic blood pressure 132 mm[Hg] Steve Ball Other [employer] Other 01-06-2023 11:30-0400 Body height 157.48 cm Steve Ball Other [employer] Other 01-06-2023 11:30-0400 Body mass index (BMI) [Ratio] 31.46 kg/m2 Steve Ball Other [employer] Other 01-06-2023 11:30-0400 Body weight 78.02 kg Steve Ball Other [employer] Other 01-06-2023 11:30-0400 Diastolic blood pressure 73 mm[Hg] Steve Ball Other [employer] Other 01-06-2023 11:30-0400 SaO2% (BldA) [Mass fraction] 96 % Steve Zandra Other [employer] Other 01-06-2023 11:30-0400 Systolic blood pressure 130 mm[Hg] Steve De Paz Other [employer] Other 05-04-2022 12:33-0400 Blood Pressure Location Cristelabreanna WINTER [facility] 05-04-2022 12:33-0400 Diastolic blood pressure 69 mm[Hg] Cristela WINTER [facility] 05-04-2022 12:33-0400 Heart rate 68 /min Cristela WINTER [facility] 05-04-2022 12:33-0400 Respiratory rate 16 /min Cristela WINTER [facility] 05-04-2022 12:33-0400 Systolic blood pressure 134 mm[Hg] Cristela WINTER [facility] 11-03-2021 16:00-0500 Body height 157.48 cm Vinh Lawton Other [employer] Other 11-03-2021 16:00-0500 Body mass index (BMI) [Ratio] 25.79 kg/m2 Vinh Lawton Other [employer] Other 11-03-2021 16:00-0500 Body weight 63.96 kg Vinh Lawton Other [employer] Other Functional Status Date Assessment Result Facility 05-17-2023 Functional Status N/A [facility] 05-04-2022 Functional Status N/A [facility] Clinical Notes 10-10-2021 to 01-17-2024 Debbie Bobby MD - 01/17/2024 3:45 PM Vinicius Holly MD - 01/17/2024 3:30 PM Vinicius Holly MD - 11/08/2023 2:45 PM ESTOp Note - Eklin Holly MD - 10/28/2023 1:12 PM EST Note Date & Type Note Facility 01-17-2024 History of Present illness Narrative History Of Present Illness Nelly Hannon is a 88 y.o. male presenting with right brow ptosis. Patient referred by Dr. Holly. I reviewed the patient's history in person with Dr. Holly. Patient had a melanoma excision about 2-1/2 months ago with a vertical elliptical closure. The patient did have a small area of dehiscence centrally which has healed with secondary intention. A portion of the right frontalis muscle was resected as part of the melanoma resection. Periosteum was preserved. Patient is accompanied by his daughter who helps in providing history. Patient states that he notices peripheral visual field disturbances on the right side. Past Medical History He has a past medical history of Arrhythmia, Hyperlipidemia, Hypertension, PONV (postoperative nausea and vomiting), and Stroke (Multi). Surgical History He has a past surgical history that includes Cardiac defibrillator placement; pacemaker placement; Coronary artery bypass graft; and Aortic valve replacement. Social History He reports that he has never smoked. He has never used smokeless tobacco. He reports that he does not drink alcohol and does not use drugs. Family History No family history on file. Allergies Latex and Penicillins Review of Systems Constitutional: Negative. HENT: Negative. Eyes: Negative. Respiratory: Negative. Cardiovascular: Negative. Gastrointestinal: Negative. Endocrine: Negative. Genitourinary: Negative. Musculoskeletal: Negative. Skin: Negative. Allergic/Immunologic: Negative. Neurological: Negative. Hematological: Negative. Psychiatric/Behavioral: Negative. These systems were reviewed and are negative unless otherwise stated in the HPI Physical Exam Constitutional General appearance: Healthy-appearing, well-nourished, well groomed, in no acute distress. 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 There is a portion of it slightly hypertrophic scar at the center. There is an area of secondary intention. Right brow ptosis. Bilateral upper eyelid dermatochalasis. The frontalis movement is intact on the right side except for the area of the excision where there is no brow elevation at the midportion of the brow. Eyes Pupils and irises: EOM intact, PERRLA, conjunctiva non-injected. Ears External inspection of ears: Ears normally formed and free of lesions. Nose External inspection of nose: Dorsum symmetric with no visible or palpable deformities. Oral Cavity/Mouth Lips, teeth, and gums: Normal lips Last Recorded Vitals There were no vitals taken for this visit. Relevant Results Prior to Admission medications Medication Sig Start Date End Date Taking? Authorizing Provider alfuzosin (Uroxatral) 10 mg 24 hr tablet Take 1 tablet (10 mg) by mouth once daily. Historical Provider, atorvastatin (Lipitor) 40 mg tablet Take 1 tablet (40 mg) by mouth once daily in the morning. Take before meals. 08/30/23 Historical Provider, calcium carbonate-vitamin D3 500 mg-3.125 mcg (125 unit) tablet tablet Take 1 tablet by mouth once daily. Historical Provider, cholecalciferol (Vitamin D-3) 5,000 Units tablet Take 1 tablet every other day by oral route. Historical Provider, ferrous sulfate, 325 mg ferrous sulfate, tablet Take 65 mg by mouth once daily. Historical Provider, finasteride (Proscar) 5 mg tablet Take 1 tablet (5 mg) by mouth once daily. Historical Provider, furosemide (Lasix) 20 mg tablet Take by mouth. Historical Provider, hydroxychloroquine (Plaquenil) 200 mg tablet TAKE 1 TABLET BY MOUTH ONCE DAILY ALTERNATING WITH 1 TABLET TWICE DAILY WITH FOOD. CONFIRM WITH EYE DOCTOR ON YEARLY EYE EXAM FOR MEDICATION TOXICITY. Historical Provider, leflunomide (Arava) 20 mg tablet Take 1 tablet (20 mg) by mouth every other day. Historical Provider, losartan (Cozaar) 50 mg tablet Take 1 tablet (50 mg) by mouth once daily. 10/26/22 10/28/23 Historical Provider, metoprolol succinate XL (Toprol-XL) 50 mg 24 hr tablet Take 1 tablet (50 mg) by mouth once daily. Historical Provider, spironolactone (Aldactone) 25 mg tablet Take 1 tablet (25 mg) by mouth once daily. Historical Provider, traMADol (Ultram) 50 mg tablet Take 1 tablet (50 mg) by mouth every 6 hours if needed for severe pain (7 - 10). 10/28/23 Elkin Holly MD warfarin (Coumadin) 5 mg tablet TAKE 1 TO 1 & 1/2 (ONE & ONE-HALF) TABLETS BY MOUTH ONCE DAILY OR DIRECTED BY MEDICATION MANAGEMENT CLINIC Historical Provider, No results found. Assessment/Plan @ Problem List Items Addressed This Visit None Visit Diagnoses Brow ptosis, right - Primary Dermatochalasis of right upper eyelid Patient with visual field disturbance secondary to right-sided brow ptosis and dermatochalasis. We discussed the option of direct right-sided brow lift and right upper blepharoplasty. Photodocumentation was performed. The patient and his daughter will call to schedule follow-up, virtually or in person, if they have interested in proceeding. Debbie Bobby MD Facial Plastic & Reconstructive Surgery Otolaryngology - Head & Neck Surgery documented in this encounter [facility] Work Phone: 01-17-2024 History of Present illness Narrative ENT Outpatient Consultation Chief Complaint: Melanoma right superior forehead History Of Present Illness Nelly Hannon is a 88 y.o. male referred for [...] another skin cancer on the left forearm. 11/08/23: Patient returns for follow-up. He is overall doing well. He had some significant edema of his right upper eyelid postoperatively. This has improved. Final pathology showed negative margins for melanoma. 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 He also met with Dr. Weinberg to discuss immunotherapy. They decided on close surveillance given his history of rheumatoid arthritis He has some right lid ptosis. His prior incision is now completely healed. He is getting followed by Dr. Roque Past Medical History He has a past medical history of Arrhythmia, Hyperlipidemia, Hypertension, PONV (postoperative nausea and vomiting), and Stroke (Multi). Patient Active Problem List Diagnosis Malignant melanoma of forehead (Multi) HTN (hypertension) Hyperlipidemia Atrial fibrillation (Multi) Hyperlipidemia, vitamin D deficiency, BPH, hypertension, coronary artery disease Surgical History He has a past surgical history that includes Cardiac defibrillator placement; pacemaker placement; Coronary artery bypass graft; and Aortic valve replacement. Social History Patient lives alone, daughter lives in [place] Family History Denies family history of melanoma Allergies Latex and Penicillins Physical Exam: CONSTITUTIONAL: No acute distress VOICE: No hoarseness or other abnormality RESPIRATION: Breathing comfortably, no stridor CV: No clubbing/cyanosis/edema in hands EYES: EOM intact, sclera normal, right lid ptosis NEURO: Alert and oriented times 3, Cranial nerves II-XII grossly intact and symmetric bilaterally HEAD AND FACE: Excision on the right forehead is well healed SALIVARY GLANDS: Parotid and submandibular glands normal bilaterally EARS: Normal external ears, external auditory canals, and TMs to otoscopy, normal hearing to whispered voice. NOSE: External nose midline, anterior rhinoscopy is normal with limited visualization to the anterior aspect of the interior turbinates, no bleeding or drainage, no lesions ORAL CAVITY/OROPHARYNX/LIPS: Normal mucous membranes, normal floor of mouth/tongue/OP, no masses or lesions PHARYNGEAL LOPEZ: No masses or lesions NECK/LYMPH: No palpable LAD, no thyroid masses, trachea midline SKIN: Neck skin is without scar or injury PSYCH: Alert and oriented with appropriate mood and affect Last Recorded Vitals There were no vitals taken for this visit. Assessment and Plan 88 y.o. male with 1.8 mm depth melanoma of the right superior forehead. He underwent wide local excision, sentinel node biopsy, primary closure. Pathology showed negative margins for melanoma and 2 out of 2 positive sentinel lymph node. PET negative. CT head negative. Met with Dr. Weinberg and they decided on surveillance -TB recommended mohs for CIS. I will try to contact Dr. Roque to discuss -Dr. Bobby evaluated for possible management of right upper eyelid -Follow-up in 4-6 months. Earlier with any concern Elkin Holly MD documented in this encounter [facility] Work Phone: 11-08-2023 History of Present illness Narrative ENT Outpatient Consultation Chief Complaint: Melanoma right superior forehead History Of Present Illness Nelly Hannon is a 88 y.o. male referred for [...] another skin cancer on the left forearm. 11/08/23: Patient returns for follow-up. He is overall doing well. He had some significant edema of his right upper eyelid postoperatively. This has improved. Final pathology showed negative margins for melanoma. 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 He had micrometastatic disease in 2 out of 2 preauricular lymph nodes Past Medical History He has a past medical history of Arrhythmia, Hyperlipidemia, Hypertension, PONV (postoperative nausea and vomiting), and Stroke (CMS/HCC). Patient Active Problem List Diagnosis Malignant melanoma of forehead (CMS/HCC) HTN (hypertension) Hyperlipidemia Atrial fibrillation (CMS/HCC) Hyperlipidemia, vitamin D deficiency, BPH, hypertension, coronary artery disease Surgical History He has a past surgical history that includes Cardiac defibrillator placement; pacemaker placement; Coronary artery bypass graft; and Aortic valve replacement. Social History Patient lives alone, daughter lives in [place] Family History Denies family history of melanoma Allergies Latex and Penicillins Physical Exam: CONSTITUTIONAL: No acute distress VOICE: No hoarseness or other abnormality RESPIRATION: Breathing comfortably, no stridor CV: No clubbing/cyanosis/edema in hands EYES: EOM intact, sclera normal NEURO: Alert and oriented times 3, Cranial nerves II-XII grossly intact and symmetric bilaterally HEAD AND FACE: Excision on the right forehead is healing well. He has some residual edema of his upper eyelid causing some blockage of his visual field SALIVARY GLANDS: Parotid and submandibular glands normal bilaterally EARS: Normal external ears, external auditory canals, and TMs to otoscopy, normal hearing to whispered voice. NOSE: External nose midline, anterior rhinoscopy is normal with limited visualization to the anterior aspect of the interior turbinates, no bleeding or drainage, no lesions ORAL CAVITY/OROPHARYNX/LIPS: Normal mucous membranes, normal floor of mouth/tongue/OP, no masses or lesions PHARYNGEAL LOPEZ: No masses or lesions NECK/LYMPH: No palpable LAD, no thyroid masses, trachea midline SKIN: Neck skin is without scar or injury PSYCH: Alert and oriented with appropriate mood and affect Last Recorded Vitals Blood pressure 155/68, temperature 36.4 C (97.5 F), height 1.778 m (5' 10 ), weight 77.6 kg (171 lb). Assessment and Plan 88 y.o. male with 1.8 mm depth melanoma of the right superior forehead. He underwent wide local excision, sentinel node biopsy, primary closure. Pathology showed negative margins for melanoma and 2 out of 2 positive sentinel lymph node -Melanoma PET scan -Cannot get MRI of his brain due to pacemaker -We will review at tumor board. Will also discuss whether or not the carcinoma in situ needs to be excised. He has significant skin changes from prior sun exposure over his scalp -Follow-up in 2 months. May need to consider revision of his upper eyelid Elkin Holly MD documented in this encounter [facility] Work Phone: 10-28-2023 Miscellaneous Notes ( sln inj @ 7:00 am ) Excision Lesion Skin Head/Neck (R), Biopsy Lymph Node Head/Neck (R) Operative Note Date: 10/28/2023 OR Location: [facility] OR Name: Nelly Hannon, : 1935, Age: 88 y.o., , Sex: male Diagnosis Pre-op Diagnosis * Malignant melanoma of forehead (CMS/HCC) [C43.39] Post-op Diagnosis * Malignant melanoma of forehead (CMS/HCC) [C43.39] Procedures Wide local excision right forehead melanoma greater than 4 cm Right parotidectomy without nerve dissection Identification of sentinel node with gamma probe Surgeons * Elkin Holly - Primary Resident/Fellow/Other Bridge Operator Slip: Surgeon(s) and Role:taty Procedure Summary Anesthesia: General ASA: III Anesthesia Staff: Anesthesiologist: DO Antoine Banerjee-AA: SHAVON Carter Estimated Blood Loss: 5mL Intra-op Medications: Administrations occurring from 1010 to 1345 on 10/28/23: Medication Name Total Dose lidocaine-epinephrine (Xylocaine W/EPI) 1 %-1:100,000 injection 8 mL Anesthesia Record Intraprocedure I/O Totals Intake Remifentanil Drip 0.00 mL The total shown is the total volume documented since Anesthesia Start was filed. Phenylephrine Drip 0.00 mL The total shown is the total volume documented since Anesthesia Start was filed. Total Intake 0 mL Specimen: ID Type Source Tests Collected by Time 1 : WIDE LOCAL EXCISION RIGHT SCALP, LONG STITCH LATERAL AT 9 OCLOCK AND SHORT STITCH SUPERIOR AT 12 OCLOCK Tissue SKIN WIDE EXCISION DERMPATH LAB- DERMATOPATHOLOGY Elkin Holly MD 10/28/2023 1318 2 : SENTINEL LYMPH NODE #1 RIGHT INTRAPAROTID Tissue SENTINEL LYMPH NODE OTHER DERMPATH LAB- DERMATOPATHOLOGY Elkin Holly MD 10/28/2023 1355 3 : SENTINEL LYMPH NODE #2 RIGHT INTRAPAROTID Tissue SENTINEL LYMPH NODE OTHER DERMPATH LAB- DERMATOPATHOLOGY Elkin Holly MD 10/28/2023 1404 Staff: Faculty Neuropsychologist: Miracle Lara RN Scrub Person: Anisa Cunningham Findings: 2 preauricular lymph nodes identified Indications: Nelly Hannon is an 88 y.o. male who is having surgery for Malignant melanoma of forehead (CMS/HCC) [C43.39]. The patient was seen in the preoperative area. The risks, benefits, complications, treatment options, non-operative alternatives, expected recovery and outcomes were discussed with the patient. The possibilities of reaction to medication, pulmonary aspiration, injury to surrounding structures, bleeding, recurrent infection, the need for additional procedures, failure to diagnose a condition, and creating a complication requiring transfusion or operation were discussed with the patient. The patient concurred with the proposed plan, giving informed consent. The site of surgery was properly noted/marked if necessary per policy. The patient has been actively warmed in preoperative area. Preoperative antibiotics have been ordered and given within 1 hours of incision. Venous thrombosis prophylaxis have been ordered including bilateral sequential compression devices Procedure Details: Patient was taken back to the operating room and laid supine on the table. Timeout was performed, general anesthesia induced, patient was intubated. The table was turned. The primary melanoma was outlined with 2 cm margins. The skin was injected with local anesthesia. A preauricular incision was also marked for access to the sentinel node biopsy. The head and neck were then prepped and draped in sterile fashion. We started with excision of the primary melanoma. The planned defect measured 4.5 cm x 4.5 cm. 15 blade was used to make a skin incision down into the subcutaneous fat. Bovie cautery was used to identify the deep plane just superficial to the periosteum over the forehead. The specimen was dissected circumferentially until it was completely removed. The specimen was then oriented and sent for pathology. The area was widely undermined and it was closed primarily using 3-0 Vicryl sutures for the deep layer as well as some superficial mattress sutures. Burow's triangles were removed at the superior and inferior aspect of the defect. The skin was reapproximated with 5-0 fast suture Next we turned our attention to the sentinel node biopsy. The probe showed some activity in the right preauricular area. The remainder of the parotid and neck did not show any significant activity. A 15 blade was used to make a skin incision. A skin flap was raised anteriorly over the parotid fascia. The parotid fascia was then opened and blunt dissection was used to dissect through the parotid. The superficial temporal vessels were identified and these were traced inferiorly. The parotid tissue was released off the superficial temporal vessels and 2 separate sentinel lymph nodes were identified and circumferentially dissected. These were both sent separately for pathology. Next the wound was copiously irrigated and hemostasis was achieved. Fibrillar was placed in the wound bed. The incision was then closed in layers using 3-0 Vicryl for the deep layer and running 5-0 fast for the skin Complications: None; patient tolerated the procedure well. Disposition: PACU - hemodynamically stable. Condition: stable Wide Local Excision for Primary Cutaneous Melanoma Operation performed with curative intent Yes Original Breslow thickness of the lesion 1.8 mm (to the tenth of a millimeter) Clinical margin width 2 cm Depth of excision Other deep to fascia Elkin Holly documented in this encounter [facility] Work Phone: 10-28-2023 Note Formatting of this n ote is different from the original. ( sln inj @ 7:00 am ) Excision Lesion Skin Head/Neck (R), Biopsy Lymph Node Head/Neck (R) Operative Note Date: 10/28/2023 OR Location: [facility] OR Name: Nelly Hannon : 1935, Age: 88 y.o., , Sex: male Diagnosis Pre-op Diagnosis * Malignant melanoma of forehead (CMS/HCC) [C43.39] Post-op Diagnosis * Malignant melanoma of forehead (CMS/HCC) [C43.39] Procedures Wide local excision right forehead melanoma greater than 4 cm Right parotidectomy without nerve dissection Identification of sentinel node with gamma probe Surgeons * Elkin Holly - Primary Resident/Fellow/Other Bridge Operator Slip: Surgeon(s) and Role:enmayeni Procedure Summary Anesthesia: General ASA: III Anesthesia Staff: Anesthesiologist: Armando Jacobs DO C-AA: SHAVON Carter Estimated Blood Loss: 5mL Intra-op Medications: Administrations occurring from 1010 to 1345 on 10/28/23: Medication Name Total Dose lidocaine-epinephrine (Xylocaine W/EPI) 1 %-1:100,000 injection 8 mL Anesthesia Record Intraprocedure I/O Totals Intake Remifentanil Drip 0.00 mL The total shown is the total volume documented since Anesthesia Start was filed. Phenylephrine Drip 0.00 mL The total shown is the total volume documented since Anesthesia Start was filed. Total Intake 0 mL Specimen: ID Type Source Tests Collected by Time 1 : WIDE LOCAL EXCISION RIGHT SCALP, LONG STITCH LATERAL AT 9 OCLOCK AND SHORT STITCH SUPERIOR AT 12 OCLOCK Tissue SKIN WIDE EXCISION DERMPATH LAB- DERMATOPATHOLOGY Elkin Holly MD 10/28/2023 1318 2 : SENTINEL LYMPH NODE #1 RIGHT INTRAPAROTID Tissue SENTINEL LYMPH NODE OTHER DERMPATH LAB- DERMATOPATHOLOGY Elkin Holly MD 10/28/2023 1355 3 : SENTINEL LYMPH NODE #2 RIGHT INTRAPAROTID Tissue SENTINEL LYMPH NODE OTHER DERMPATH LAB- DERMATOPATHOLOGY Elkin Holly MD 10/28/2023 1404 Staff: Faculty Neuropsychologist: Miracle Lara RN Scrub Person: Anisa Octavio Findings: 2 preauricular lymph nodes identified Indications: Nelly Hannon is an 88 y.o. male who is having surgery for Malignant melanoma of forehead (CMS/HCC) [C43.39]. The patient was seen in the preoperative area. The risks, benefits, complications, treatment options, non-operative alternatives, expected recovery and outcomes were discussed with the patient. The possibilities of reaction to medication, pulmonary aspiration, injury to surrounding structures, bleeding, recurrent infection, the need for additional procedures, failure to diagnose a condition, and creating a complication requiring transfusion or operation were discussed with the patient. The patient concurred with the proposed plan, giving informed consent. The site of surgery was properly noted/marked if necessary per policy. The patient has been actively warmed in preoperative area. Preoperative antibiotics have been ordered and given within 1 hours of incision. Venous thrombosis prophylaxis have been ordered including bilateral sequential compression devices Procedure Details: Patient was taken back to the operating room and laid supine on the table. Timeout was performed, general anesthesia induced, patient was intubated. The table was turned. The primary melanoma was outlined with 2 cm margins. The skin was injected with local anesthesia. A preauricular incision was also marked for access to the sentinel node biopsy. The head and neck were then prepped and draped in sterile fashion. We started with excision of the primary melanoma. The planned defect measured 4.5 cm x 4.5 cm. 15 blade was used to make a skin incision down into the subcutaneous fat. Bovie cautery was used to identify the deep plane just superficial to the periosteum over the forehead. The specimen was dissected circumferentially until it was completely removed. The specimen was then oriented and sent for pathology. The area was widely undermined and it was closed primarily using 3-0 Vicryl sutures for the deep layer as well as some superficial mattress sutures. Burow's triangles were removed at the superior and inferior aspect of the defect. The skin was reapproximated with 5-0 fast suture Next we turned our attention to the sentinel node biopsy. The probe showed some activity in the right preauricular area. The remainder of the parotid and neck did not show any significant activity. A 15 blade was used to make a skin incision. A skin flap was raised anteriorly over the parotid fascia. The parotid fascia was then opened and blunt dissection was used to dissect through the parotid. The superficial temporal vessels were identified and these were traced inferiorly. The parotid tissue was released off the superficial temporal vessels and 2 separate sentinel lymph nodes were identified and circumferentially dissected. These were both sent separately for pathology. Next the wound was copiously irrigated and hemostasis was achieved. Fibrillar was placed in the wound bed. The incision was then closed in layers using 3-0 Vicryl for the deep layer and running 5-0 fast for the skin Complications: None; patient tolerated the procedure well. Disposition: PACU - hemodynamically stable. Condition: stable Wide Local Excision for Primary Cutaneous Melanoma Operation performed with curative intent Yes Original Breslow thickness of the lesion 1.8 mm (to the tenth of a millimeter) Clinical margin width 2 cm Depth of excision Other deep to fascia Elkin Holly [facility] Work Phone: 10-28-2023 Hospital Discharge instructions Naima Rodgers MD - 10/28/2023 12:13 PM EST Facial/Neck Incision Care: Cleanse all facial/neck incisions twice daily with baby shampoo or mild soap and water. Apply petroleum jelly/vaseline to incision line twice daily until incision has healed. documented in this encounter [facility] Work Phone: 10-28-2023 Attending History and physical note H&P reviewed. The patient was examined and there are no changes to the H&P. Source Note - User Epic - 10/19/2023 12:00 AM EST [facility] Work Phone: 10-28-2023 History and physical note H&P reviewed. The patient was examined and there are no changes to the H&P. Source Note - User Epic - 10/19/2023 12:00 AM EST documented in this encounter [facility] Work Phone: 10-26-2023 Note Patient here for 6 m o follow up and device check. Also needs cleared for melanoma removal scheduled for . Says he's already begun to hold warfarin. Pre-op testing was done last week, including ECG, labs, and CXR. He denies chest pain, SOB, palpitations, lightheadedness/syncope, and bleeding on warfarin. Review of Systems Cardiovascular: Positive for leg swelling. Hematologic/Lymphatic: Bruises/bleeds easily. Skin: Positive for skin cancer. Musculoskeletal: Positive for arthritis and joint pain. All other systems reviewed and are negative. [facility] 10-26-2023 Note [place] [facility] Consul t Note Reason for visit: CMP/ Afib wit RVR, aborted AVN ablation 11/2022, cardiac clearance for scalp melanoma removal HPI: patient here for 6-month follow-up s/p aborted AVN ablation AV node ablation was aborted as patient's had minimal RVR per device check Device check 10/26/23 shows BiVpacing 100% and has been in AF since 10/21/23 but no RVR noted, and he is asymptomatic denies chest pain, shortness of breath, ELIZABETH, orthopnea, LE edema 09/[address] judge HPI: 87-year-old male is status post upgrade [...] on file Housing Stability: Not on file Utilities: Not on file Allergies: Allergies Allergen Reactions [...] tablet 3 hydroxychloroquine (Plaquenil) 200 mg tablet Take 200 (more content not included)... [facility] 10-19-2023 Evaluation note Encounter Date Diagnosis Assessment Notes Oct, Preop exam for internal medicine (ICD-10 - Z01.818) Mr. 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 male referred for [...] History Patient lives alone, daughter lives in [place] Family History Denies family history of melanoma [...] on coordinating in the near future Elkin Holly MD documented in this [facility] Work Phone: 1(182) 116-704510-02-2023 Evaluation note* Encounter Date Diagnosis Assessment Notes [...] are maintaining regular scheduled appts with their compliance officer. No bleeding complications Jul, Primary hypertension (ICD-10 [...] (ICD-10 - Z79.899) Check labs: CBC, ALT [employer] Other 08-28-2023 Evaluation note* Encounter Date Diagnosis Assessment Notes Treatment Notes Treatment Clinical Notes May, Seasonal allergic rhinitis due to pollen (ICD-10 - J30.1) [employer] Other 08-14-2023 Hospital Discharge instructions Patient Education [...] under a microscope. This is called the Ernul score and the total score can range from 6 10, indicating how likely it is that the cancer will spread (metastasize) to other parts of the body. The higher the score, the greater thelikelihood that the cancer will spread. Ernul 6 or lower: This indicates that the cancer cells look similar to normal prostate cells (well differentiated). Ernul 7: This indicates that the cancer cells [...] stress of having cancer. General instructions Take xehk-sgw-gusccae and prescription medicines only as told by your health care provider. If you have to go to the hospital, notify your cancer specialist (oncologist). Keep all follow-up visits. This is important. Where to find more information [employer]: www.cancer.org [employer] Society of Clinical Oncology: www.cancer.net National Cancer [employer]: www.cancer.gov Contact a health care provider if: [...] provider. Document Revised: 12/17/2021 Document Reviewed: 12/17/2021 V I O Patient Education 2022 [employer]. Follow Up Care 05/04/2022 13:27:43 With:MOY ARRIAGA, Cristela Carbajal, URL Address: [facility] [address], [place] [address] [phone] When:Within 1 Year(s) Comments:PSA [facility] 07-28-2023 Evaluation note* Encounter Date Diagnosis Assessment Notes Treatment Notes Treatment Clinical Notes Apr, Tinea corporis (ICD-10 - B35.4) Decrease lotrisone to q HS Apr, Venous stasis dermatitis of left lower extremity (ICD-10 - I87.2) Avoid salt and elevate lower extremities, support stockings, inspect legs and feet daily for blisters and ulcerations. Restart wearing support stockings during the daytime [employer] Other 07-26-2023 NoteUT Cardiology Consult Note Reason for visit: [...] ELIZABETH, orthopnea, LE edema 09/[address] judge HPI: 87-year-old male is status post upgrade [...] DAILY WITH FOOD. CONFIRM (more content not included)...[facility]07-26-2023 NotePatient here for 6 mo follow up and device check. Denies chest pain, SOB, palpitations, syncope, and bleeding on warfarin. Review of Systems Hematologic/Lymphatic: Bruises/bleeds easily. Musculoskeletal: Positive for arthritis and joint pain. All other systems reviewed and are negative.[facility] 01-22-2023 Evaluation note* Encounter Date Diagnosis Assessment Notes [...] exercise and AHA diet plan. Avoid decongestants [employer] Other 04-05-2023 Evaluation note* Encounter Date Diagnosis [...] are maintaining regular scheduled appts with their compliance officer. Jan, Chronic venous insufficiency (ICD-10 - I87.2) [...] rhinitis due to pollen (ICD-10 - J30.1) Jan, Current use of anticoagulant therapy (ICD-10 - Z79.01) No bleeding complications. Jan, Hx of malignant neoplasm of prostate (ICD-10 - Z85.46) Brachytherapy Jan, History of cardiac pacemaker in situ (ICD-10 - Z95.0) [employer] Other 2022 NoteHISTORY AND PHYSICAL EXAMINATION Date:04/15/2022 HISTORY: Patient [...] and go forward with his elective procedure.[id number] NoteOPERATIVE NOTE OPERATION DATE: 04/16/2022 SURGEON: Debbie Gordon D.O. PREOPERATIVE DIAGNOSIS: Nuclear sclerotic cataract left [...] ensuring mobility, phacoemulsification was performed in a jeomuim-bwy-yqstxh-type fashion. After all nuclear material had been [...] up the following day for postoperative care.[facility] 05-07-2022 NoteOPERATIVE NOTE OPERATION DATE: 05/07/2022 SURGEON: Debbie Gordon M.D. PREOPERATIVE DIAGNOSIS: Nuclear sclerotic cataract right [...] ensuring mobility, phacoemulsification was performed in a msbmeqt-ozn-jcqens-type fashion. After all nuclear material had been [...] up the following day for postoperative care.[id number] NoteHISTORY AND PHYSICAL EXAMINATION Date:05/06/2022 HISTORY: Patient [...] decline other than that of cataract. 2. [id number] patient was briefed in the office and [...] and go forward with this elective procedure.[id number] Hospital Discharge instructions Patient Education 05/04/2022 13:26:39 [...] urethra. Follow these instructions at home: Take qtvn-ggj-pbaxwxb and prescription medicines only as told by [...] 09/20/2006 Document Revised: 08/15/2019 Document Reviewed: 10/25/2017 V I O Patient Education 2020 Spro[employer]il. Follow Up Care 04/11/2021 11:38:50 With:MOY ARRIAGA, Cristela Carbajal, URL Address: [facility] [address] , [place] [address]- [phone] When:Within 1 Year(s) Comments:w/ [facility] NotePRE-OP HISTORY AND PHYSICAL Date:04/15/2022 HISTORY: [...] and go forward with his elective procedure.[facility] [id number] NoteOP Note OPERATION DATE: 04/16/2022 SURGEON: Debbie Gordon D.O. PREOPERATIVE DIAGNOSIS: Nuclear sclerotic cataract left [...] ensuring mobility, phacoemulsification was performed in a ioqfjru-xiq-yryjic-type fashion. After all nuclear material had been [...] up the following day for postoperative care.[facility] 11-03-2021 Evaluation note* Encounter Date Diagnosis Assessment [...] working and gentle motion and strength exercise. [employer] Other 01-07-2022 Evaluation note* Encounter Date Diagnosis [...] in office today. Prior medical notes from [place] [facility] and history have been reviewed. At this [...] non-union discussed. We discussed the potential for halfway cosmetic deformity over the fracure site. Oct, Other See orders for this visit as documented in the electronic medical record. [employer] Other Evaluation + Plan note Future Appointments Appointment Date:05/17/2023 08:45:00 AM Scheduled Provider:Cristela WINTER MD Location:[facility] Appointment Type:URO Office Visit Diagnostic Tests Pending * PSA Total 05/04/22 [facility] evaluation + Plan note Future Appointments Appointment Date:05/22/2024 08:45:00 AM Scheduled Provider:Cristela WINTER MD Location:[facility] Appointment Type:URO Office Visit Diagnostic Tests Pending * PSA Total 05/17/23 [facility] evalbjgfos noteNo assessment information available [facility] Work Phone: Evaluation noteNo Information[facility] Other Evaluation note* Diagnosis 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) documented in this encounter [facility] Work Phone: Evaluation note* Diagnosis 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) Post-op pain Other acute postoperative pain HTN (hypertension) Unspecified essential hypertension Hyperlipidemia Other and unspecified hyperlipidemia Atrial fibrillation (CMS/HCC) Atrial fibrillation documented in this encounter [facility] Work Phone: Evaluation note* Diagnosis Malignant melanoma of forehead (CMS/HCC) documented in this encounter [facility] Work Phone: Evaluation note* Diagnosis Malignant melanoma of forehead (CMS/HCC) documented in this encounter [facility] Work Phone: Evaluation note* Diagnosis Onset Date Resolution Status Melanoma of head acute [facility] Work Phone: Evaluation note* Diagnosis Onset Date Resolution Status Cardiac pacemaker acute Encounter for coordination of complex care acute History of prostate cancer a cute Melanoma of head acute Rheumatoid arthritis acute Cardiac pacemaker acute Encounter for coordination of complex care acute History of prostate cancer a cute Melanoma of head acute Rheumatoid arthritis acute [facility] Work Phone: Evaluation note* Diagnosis Brow ptosis, right- Primary Dermatochalasis of right upper eyelid documented in this encounter [facility] Work Phone: Evaluation note* Diagnosis Onset Date Resolution Status Cardiac pacemaker acute Encounter for coordination of complex care acute History of prostate cancer a cute Melanoma of head acute Rheumatoid arthritis acute Cardiac pacemaker acute Encounter for coordination of complex care acute History of prostate cancer a cute Melanoma of head acute Rheumatoid arthritis acute Anemia acute ASHD (arteriosclerotic heart disease) acute Atrial fibrillation acute HTN (hypertension) acute Hypercholesterolemia acute Rheumatoid arthritis acute [facility] Work Phone: Evaluation note* Diagnosis Malignant melanoma of forehead (Multi)- Primary documented in this encounter [facility] Work Phone: Evaluation note* Diagnosis Onset Date Resolution Status Cardiac pacemaker acute Encounter for coordination of complex care acute History of prostate cancer a cute Melanoma of head acute Rheumatoid arthritis acute Anemia acute ASHD (arteriosclerotic heart disease) acute Atrial fibrillation acute HTN (hypertension) acute Hypercholesterolemia acute Melanoma of head acute Rheumatoid arthritis acute Cardiac pacemaker acute Encounter for coordination of complex care acute History of prostate cancer a cute Melanoma of head acute Rheumatoid arthritis acute [facility] Work Phone: History general Narrative - Reported* Type Description Date Medical History Arthritis Surgical History cardiac pacemeker [employer] Other History general Narrative - Reported* Type [...] Surgical History COLONOSCOPY Hospitalization History SEE SURGICAL [employer] Other History general Narrative - Reported* Type Description Date Surgical History cardiac pacemeker 2012 Surgical History EXTRACTION OF CATARACT OF BOTH EYES 2021 Surgical History REPLACEMENT, ICD, BIVENTRICULAR 2020 Surgical History CABG Surgical History MVR Surgical History COLONOSCOPY Hospitalization History SEE SURGICAL [employer] Other HisSERPs general Narrative - Reported* Type Description Date [...] Surgical History COLONOSCOPY Hospitalization History SEE SURGICAL [employer] Other HisSERPs general Narrative - Reported* Type Description Date Medical History History of cardiac pacemaker in situ Medical History Current use of anticoagulant the gabrielay Medical History Autoimmune thyroiditis Medical History Chronic [...] History COLONOSCOPY Hospitalization History SEE SURGICAL HX [employer] Other Hospital course Narrative No data available for this section [facility] progsopy note No data available for this section [facility] progrjun note Author Adilene Weinberg [facility] December 17, 2023 4:31pm Note Date/Time December 17, 2023 11: 39am [facility] [place] [address] Cancer Center Note Signed Patient: Nelly Hannon MR#: [id number] : 1935 Acct:[id number] Age/Sex: 88 / M Type: DEP AMB Copies to: Steve De Paz DO~ Assessment & Plan A/P (1) Melanoma of head: Plan: Initial consult 11/24/2023: This is an 88-year-old gentleman who presented in late 2022 with an enlarging right scalp lesion which 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 He has now completed wide local excision with sentinel lymph node biopsy requiring right parotidectomy on 10/28/2023. This reveals pT2a pN2a (stage IIIa) melanoma. He has a known history of rheumatoid arthritis on Arava and Plaquenil for several years. No active synovitis howeverthis would make immunotherapy challenging as he may be at risk of more significant side effects such as worsening synovitis, GI symptoms, pneumonitis, and other common immunotherapy side effects. We are sending BRAF testing request to pathology on his original pathology specimen and completing staging with CT of head since he has a pacemaker in place. His PET/CT did not show any evidence of distant metastatic disease. We will likely plan follow-up with him in about 1-1/2 weeks to review results of his pathology and staging CT and discuss options for adjuvant therapy. He could be approached with observation alone given his advanced age and negative margins, however 2 positive lymph nodes would potentially increase risk of recurrence. The patient's daughter wholives in [place] will be available by phone consultation at the time of his follow-up. He does have capacity for decision-making. All questions were answered over this 60-minute initial consultation. 12/17/2023: Discussion of negative BRAF status and no evidence of WARP TESTER disease on contrast head CT from 11/29/2023. Decision against adjuvant immunotherapy for 1 year due to his advanced age and concern with toxicity given his known rheumatoid arthritis. Continue to follow with close surveillance including examevery 3 months with planned 3-month follow-up right cervical ultrasound and 6-month follow-up bidirectional CT chest abdomen pelvis to assess for distant recurrence. He may return sooner if signs or symptoms of recurrence to discuss every 2-week dosing of Nivolumab under close observation. The patient and his daughter are in agreement with this plan over this 35-minute follow-up of results and surveillance plan. (2) Rheumatoid arthritis: Plan: Patient reports he has been followed by Dr. Arteaga of rheumatology for the last8 years. No recent rheumatoid exacerbations but he does remain on Arava and Plaquenil therapy. At the time of recurrence I will discuss his case with Dr. Arteaga if we decide a trial of immunotherapy. At that time I would likely givehim Nivolumab 200 mg every 2 weeks to assess his tolerance. 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 No recent issues but cannot have MRI due to pacemaker in place. (4) History of prostate cancer: Plan: Remote history of prostate cancer 2009 status post brachytherapy. Most recent PSA in May 2023 was undetectable. Nocturia about once each evening but no recent prostate symptoms. (5) Encounter for coordination of complex care: Plan: Discussion of staging, adjuvant options, BRAF testing negative, CT head negativefor metastatic disease. Decision for observation only made with patient and daughter by speaker phone Orders: Orders Complete Blood Count Auto Diff 3 Months 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 Comprehensive Metabolic Panel 3 Months 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 LDH Lactate Dehydrogenase 3 Months 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 US extremity nonvascular 3 Months 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 Patient Instructions: Follow up in three months with Dr Weinberg with US and labs before visit. CHEMO PLAN No Active Chemotherapy History of Present Illness HPI 12/17/2023: Nelly presents unaccompanied but his daughter is available by speaker phone to review the results of his BRAF molecular testing. Of note his scalp lesion has healed well with no oozing from site and prior periorbital swelling has also improved. No complaints today. He was noted to have negative BRAF mutation and we discussed that immunotherapy may be more toxic given his known history of rheumatoid arthritis for the last 8 years on active therapy with Arava and hydroxychloroquine). He does have 2 intraparotid lymph nodes that were positive with no extracapsular extension and his primary lesion was completely resected with negative margin. Given his comorbidities and advanced age, the patient and his daughter decided on observation only instead of a trialof immunotherapy adjuvant treatment for his stage III melanoma. We will follow every 3 months with clinical exam alternating right cervical lymph node ultrasound with systemic bidirectional staging CT chest abdomen pelvis every 3 months over the next 5 years. He may return sooner if he has signs of clinical recurrence. At the time of any documented recurrence we may be able to treat with Nivolumab 200 mg every 2 weeks to potentially minimize toxicity. The patient and his daughter are in agreement with this plan over this 35-minute follow-up to discuss molecular testing results and options for adjuvant therapy versus observation. 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 Roque in dermatology. 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 He was referred to [facility] head neck oncologic surgery. 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 No lymphovascular invasion and present nonbrisk tumor infiltrating lymphocytes. He also had right parotidectomy with 2 metastatic malignant melanoma lymph nodes identified within the gland. pT2a pN2a. PET/CT was ordered showing no evidence of distant metastatic disease. MRI of brain was not performed due to pacemaker and we are ordering CT of head to complete staging today. Postoperative note from 11/08/2023 was remarkable for edema of right upper eyelid but no other concerning postop issues other than mild pruritus without rash after his PET/CT. He does have some ptosis of his right upper eyelid on exam today but otherwise he is healing well with mild eschar over the scalp wound. No recent cardiac issues. We do not yet have BRAF staging from his pathology specimen and this will be requested from [facility]. Given his history of rheumatoid arthritis on Plaquenil and Areva, checkpoint inhibitor immunotherapy may be challenging and he may be at a higher risk of autoimmune complications. If the patient is BRAF positive we may discuss BRAF/MEK inhibitor therapy for 1 year of adjuvant therapy. The patient's daughter who accompanies him asked several questions regarding potential side effects which we will defer until his next follow-up when we know BRAF status. In addition we will review his head CT at that time. She lives in the [facility] and will be available by [facility] for his follow-up appointment, hopefully within the next 2 weeks to review these results and toconsent for therapy. No other concerns today. High complexity 60-minute visit for review of outside records, pathology, imaging, and discussion of potential adjuvant therapy for stage IIIA melanoma. Summary of Therapies Summary of Therapies: 1. 10/28/2023: Wide local excision right scalp with sentinel lymph node biopsy (right parotidectomy)--Dr. Elayne PATEL 2. Discussion of adjuvant options 11/24/2023 at [facility]. Negative BRAF status. PET/CT negative for distant metastatic disease, no disease noted on CT head. -- 12/17/2023: Decision against active therapy due to his known history of rheumatoid arthritis. Will follow with every 3-month surveillance. Intake Vitals/Pain Assessment 12/17/23 11:37 Weight 78.471 kg BP 170/69 H Blood Pressure Location Lt brachial Position Sitting Temp 97.2 F L Temp Source Temporal Pulse 66 Pulse Source NIBP Respiration 16 Pulse Oximetry (%) 97 Oxygen Delivery Method room air Are you having pain? No Intake Visit Reasons: Follow Up, melanoma Allergies latex Allergy (Unknown, Verified 12/17/23 11:39) Rash Penicillins Allergy (Unknown, Verified 12/17/23 11:39) Swelling of the Eye - Last Reconciled 12/17/23 by Pamela Smith alfuzosin ER 10 mg PO DAILY aspirin (Aspir-) 81 mg PO DAILY atorvastatin 40 mg PO DAILY calcium carbonate-vitamin D3 500 mg-3.125 mcg (125 unit) (Calcium) 1 tab PO DAILY cholecalciferol (vitamin D3) (Vitamin D3) 1 tab PO DAILY ferrous sulfate (iron) 1 tab PO DAILY fexofenadine (Ramona Hives) 180 mg PO DAILY furosemide 20 mg PO DAILY hydroxychloroquine 200 mg PO BID leflunomide 20 grams PO DAILY losartan 50 mg PO DAILY mecobalamin (vitamin B12) 1,000 mcg PO DAILY metoprolol succinate ER 25 mg PO DAILY metoprolol succinate ER 50 mg PO DAILY 90 days spironolactone 25 mg PO DAILY warfarin 5 mg PO DAILY Gastrointestinal Is the patient taking opioids for pain control?: No Nurse's Note: Patient is here today for a 3 week follow up visit and go over BRAF results [facility] Medical History Medical History Cardiac pacemaker Carotid stenosis Bradycardia Rheumatoid arthritis History of prostate cancer CAD (coronary artery disease) BPH (benign prostatic hyperplasia) Atrial fibrillation Hyperlipidemia HTN (hypertension) Melanoma Surgical History Surgical History H/O cystoscopy Family History Family History Brother Heart disease Legacy FamHx Relation: Brother(s) Father Heart disease 85 yrs Mother 65 yrs Cancer Legacy FamHx Problem: Diagnosed with Cancer History of ovarian cancer Social History Social History Smoking status: Never smoker Within the past year, how often did you have a drink containing alcohol: never AUDIT-C Alcohol total score: 0 AUDIT-C Alcohol score interpretation: A score less than 4 is consistent with normal alcohol consumption. In the past 12 months, have you used illegal drugs or prescription drugs for non-medical reasons?: No Review of Systems CONSTITUTIONAL: Negative for fatigue, negative for fever or night sweats. HEAD AND NECK: Positive for healing scalp wound and now minimal postop ptosis ofright eyelid. No periorbital edema. Negative for changes in hearing and vision. Negative for mouth ulcers, nasal congestion and nasal drainage. No sicca symptoms since parotidectomy. PULMONARY: Negative for chest pain, cough and dyspnea. CARDIOVASCULAR: Negative for claudication and irregular heartbeat/palpitations. Patient has longstanding atrial fibrillation with pacemaker/AICD in place. No recent angina. GASTROINTESTINAL: Negative for abdominal pain, constipation, decreased appetite,diarrhea, nausea or vomiting. GENITOURINARY: Negative for dysuria and hematuria. Nocturia about once nightly unchanged. Remote history of brachytherapy to prostate 2008. Most recent PSA May 2023 undetectable. ENDOCRINE: Negative for cold intolerance and heat intolerance. No history of diabetes. CENTRAL NERVOUS SYSTEM: Negative for gait disturbance and headache. 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 He is ambulatory without assistance. No cognitive deficits. PSYCHIATRIC: Negative for anxiety or depression. DERMATOLOGICAL: Negative for pruritus and rash. Negative for suspicious skin lesions--healing wound right scalp and right parotidectomy. MUSCULOSKELETAL: Negative for back pain and bone/joint symptoms currently. Known history of rheumatoid arthritis on Arava and Plaquenil therapy, no active synovitis currently. HEMATOLOGICAL: Negative for bleeding and easy bruising. Negative for history of transfusion or thromboembolic disease. Daughter notes he tends to have mild anemia but has not had a workup for this. 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 ALLERGY: Negative for environmental allergies and food allergies. Physical Exam EXAM CONSTITUTIONAL: The patient is in no acute distress. HEAD / FACE: Normocephalic. Healing right frontal scalp incision with a small area of crusting mid lesion. No associated erythema or pain. Status post rightparotidectomy, well-healed. EYES: Pupils are equal and reactive to light. Conjunctivae and lids are benign in appearance. Ocular movement intact. EARS: Hearing grossly intact. MUSCULOSKELETAL: Normal musculature, no obvious joint deformities or abnormalities, mildly limited range of motion wrist and MCP joints. EXTREMITIES: No edema, cyanosis or clubbing. No Kodak sign. NEUROLOGICAL: Alert and oriented. Cranial nerves intact. No gross motor or sensory deficits. PSYCHIATRIC: No anxiety or evidence of depression. -- Limited exam due to follow-up of BRAF testing and discussion of adjuvant therapy, see exam below from initial consult 11/24/2023. NOSE / MOUTH / THROAT: Nose, mouth, tongue and oropharynx are benign in appearance. No signs of inflammation. NECK / THYROID: Neck is supple. Thyroid is symmetrical, without thyromegaly, masses or palpable nodules. LYMPHATIC: No palpable cervical, supraclavicular, axillary, or inguinal adenopathy. RESPIRATORY: Normal to inspection. Lungs clear to auscultation and percussion. No wheezing, rales, rhonchi or rubs. Normal effort. CARDIOVASCULAR: Regular rate and rhythm. No murmurs, gallops, or rubs. VASCULAR: Carotid, radial, femoral and pedal pulses present bilaterally. No bruits. ABDOMEN: Bowel sounds normoactive. Soft, nontender and non-distended. No hepatosplenomegaly. No masses. GENITOURINARY: No CVA tenderness. No suprapubic fullness or tenderness. No groinadenopathy. No evidence of hernias. INTEGUMENTARY: The skin is unremarkable. No rashes. No suspicious lesions BACK / SPINE: The back is nontender. [facility] - [facility] LAB RESULTS Laboratory Tests 07/19/23 09:36 Corrected WBC 4.2 Hgb 11.0 L Hct 31.9 L Plt Count 123 L Neut # (Auto) 3.0 Creatinine 1.09 Total Bilirubin 0.6 Direct Bilirubin 0.10 Indirect Bilirubin 0.5 AST 22 ALT 32 Alkaline Phosphatase 63 Total Protein 5.8 L Albumin 4.1 No Data to Display PATHOLOGY RESULTS Outside pathology: 12/03/2023: Genomic findings negative for BRAF V600 Pathology review [facility] 10/28/2023: A. 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 Node, sentinel lymph node #1 right intraparotid: Metastatic malignant melanoma in 1/1 lymph node (deposit of atypical melanocytesthat is 0.75 mm in greatest diameter. No extracapsular extension is seen) C. Node, [place] lymph node #2 right intraparotid Metastatic malignant melanoma 1/1 lymph node (deposit of atypical epithelioid melanocytes stain with antibodies against melan-A and Sox-10. 0.9 mm in greatest diameter. No extracapsular extension is seen) Histologic type lentigo maligna melanoma Maximum tumor Breslow thickness 1.8 mm Macroscopic satellite nodules not identified Ulceration not identified Anatomic Ho's level 4 (melanoma invades reticular dermis Mitotic rate 1 mitosis per millimeter squared Negative for microsatellites, lymphovascular invasion, neurotropism Tumor infiltrating lymphocytes are present and nonbrisk Tumor regression is not identified Margin negative for invasive melanoma and melanoma in situ Tumor present in regional lymph nodes 2/2, subcapsular and intramedullary Size of largest sentinel node metastatic deposit 0.8 mm Extranodal extension not identified Matted lymph nodes not identified Pathologic stage classification pT2a pN2a RADIOLOGY/IMAGING RESULTS Date of Service: 11/19/23 PET/PET tumor init tx strat wb: Melanoma PET/CT FUSION IMAGING CLINICAL INFORMATION: Melanoma of the forehead. COMPARISON : None TECHNIQUE: Noncontrasted CT scan from the skull to the feet followed by PET imaging. Multiplanar PET/CT fusion images. Blood Glucose : 88 mg/dL The F-18 FDG 14.16mCi. FINDINGS: Neck: No abnormal activity. Chest:No abnormal activity. Abdomen/pelvis: No abnormal activity. Soft tissue/bones: No abnormal activity. CT findings: No pneumothorax. No pericardial or pleural effusions. Cardiomegaly.No free air or free fluid. PET/PET tumor init tx strat wb IMPRESSION: Negative PET CT. Impression dictated by: Festus Silver Jr., D.OSantos11/19/2023 1:01 PM Enhanced and unenhanced head CT TECHNIQUE: Contiguous axial imaging of the head.90 cc of Isovue-300The CT exam was performed using one or more the following dose reduction techniques: Automated exposure control, adjustment of the MA and/or Kv according to patient size, or use of the iterative reconstruction technique. COMPARISON: None HISTORY: Restage head and neck of melanoma. VENTRICLES: Within normal limits ATROPHY: None BRAIN PARENCHYMA: Adequate foster-white matter differentiation identified. HEMORRHAGE: None HERNIATION: No mass effect or herniation INFARCTION: No recent vascular distribution infarction is seen. EXTRA-AXIAL FLUID COLLECTIONS None MIDBRAIN: Unremarkable MARGY: Unremarkable MEDULLA: Unremarkable SINUSES: Unremarkable ORBITS: Grossly unremarkable MASTOIDS: Unremarkable BONY STRUCTURES Intact ADDITIONAL FINDINGS: CT/CT head/brain wo/w con IMPRESSION: No acute findings. No malignant or metastatic disease. No pathologic enhancement. Impression dictated by: Abdoul William M.D.11/29/2023 3:10 PM Dictated By: Adilene Weinberg MD DD/ [id number] Signed By: <Electronically signed by MD Adilene Weinberg> 12/17/23 1631 [facility] Work Phone: Reason for referral (narrative)* Consultation (Routine) - Authorized Specialty Diagnoses / Procedures Referred By Faviola heredia Referred To Contact Hematology and Oncology Diagnoses Malignant melanoma of forehead (CMS/H[place]) [place] [id number] [address] Department [place] [address] Adilene Weinberg MD [address] [place] [address] [id number] Referral ID Status Reason Start Date Expiration Date Visits Requested Visits Authorized [id number] Authorized Specialty Services Required 11/08/2023 11/07/2024 1 1 * Imaging (Routine) - Pending Review Specialty Diagnoses / Procedures Referred By Faviola heredia Referred To Contact Radiology Diagnoses Malignant melanoma of forehead (CMS/HCC) Procedures NM PET [place] [address] [place] [address] Referral ID Status Reason Start Date Expiration Date Visits Requested Visits Authorized [id number] Pending Review Perform Procedure 11/08/2023 11/07/2024 3 3 [facility] Work Phone: Summary Purpose Family History No Family History Records Found Relationship Condition Age at Onset Recorded Date/T dwayne brother Heart disease Unknown father Heart disease Unknown Unknown Not Specified Unknown Malignant neoplasm Unknown History of ovarian cancer Unknown Advance Directives No Advanced Directives Records Found Advance Directive Response Recorded Date/ Time Advance Directives No July 10, 2017 8:06am Advance Directive Response Recorded Date/ Time Advance Directives No July 10, 2017 7:06am Chief Complaint and Reason for Visit Chief Complaint m05.79 [id number] Chief Complaint Pre Op Clearance c43.39 Chief Complaint Pre Op Clearance c43.39 new pt melanoma Reason for Visit Melanoma of head Chief Complaint Pre Op Clearance c43.39 new pt Allergy Shot melanoma Follow Up Reason for Visit Cardiac pacemaker Encounter for coordination of complex care History of prostate cancer Melanoma of head Rheumatoid arthritis Cardiac pacemaker Encounter for coordination of complex care History of prostate cancer Melanoma of head Rheumatoid arthritis Chief Complaint c43.39 new pt Allergy Shot melanoma Follow Up M05.79 [id number] 3 month follow up Reason for Visit Cardiac pacemaker Encounter for coordination of complex care History of prostate cancer Melanoma of head Rheumatoid arthritis Cardiac pacemaker Encounter for coordination of complex care History of prostate cancer Melanoma of head Rheumatoid arthritis Anemia ASHD (arteriosclerotic heart disease) Atrial fibrillation HTN (hypertension) Hypercholesterolemia Rheumatoid arthritis Chief Complaint Follow Up M05.79 [id number] 3 month follow up melanoma Follow Up after US Reason for Visit Cardiac pacemaker Encounter for coordination of complex care History of prostate cancer Melanoma of head Rheumatoid arthritis Anemia ASHD (arteriosclerotic heart disease) Atrial fibrillation HTN (hypertension) Hypercholesterolemia Melanoma of head Rheumatoid arthritis Cardiac pacemaker Encounter for coordination of complex care History of prostate cancer Melanoma of head Rheumatoid arthritis Reason for Referral Specialty Diagnoses / Procedures Referred By Faviola heredia Referred To Contact Radiology Diagnoses Malignant melanoma of forehead (CMS/HCC) Procedures [place] [address] [address] [place] [address] Referral ID Status Reason Start Date Expiration Date Visits Requested Visits Authorized [id number] Pending Review Perform Procedure 10/08/2023 10/07/2024 2 2 Additional Source Comments (unrecognized sect ion and content) No Status Records FoundNo Status Records FoundNo Status Records FoundNo Status Records FoundNo Status Records FoundNo Status Records FoundNo Status Records FoundNo Status Records FoundNo Status Records Found INFORMATION SOURCE (unrecogn ized section and content) DATE CREATED AUTHOR 09/16/2021 [facility] DATE CREATED AUTHOR AUTHOR'S ORGANIZ ATION 03/12/2023 [facility] DATE CREATED AUTHOR AUTHOR'S ORGANIZ ATION 05/18/2023 [facility] DATE CREATED AUTHOR AUTHOR'S ORGANIZ ATION 11/09/2023 [facility] DATE CREATED AUTHOR AUTHOR'S ORGANIZ ATION 01/21/2024 [facility] DATE CREATED AUTHOR AUTHOR'S ORGANIZ ATION 02/18/2024 [facility] DATE CREATED AUTHOR AUTHOR'S ORGANIZ ATION 03/01/2024 [facility] DATE CREATED AUTHOR AUTHOR'S ORGANIZ ATION 03/17/2024 [facility] DATE CREATED AUTHOR AUTHOR'S ORGANIZ ATION 04/02/2024 [facility] REASON FOR VISIT (unrecogniz ed section and content) Reason Comments New Patient Visit Specialty Diagnoses / Procedures Referred By Contac t Referred To Contact Diagnoses 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) [C43.39] Procedures IL EXCISION MALIGNANT LESION F/E/E/N/L >4.0 CM [place] DERMAL AUTOGRAFT F/S/N/H/F/G/M/D GT 1ST [address] GUIDANCE NEEDLE PLACEMENT ( sln inj @ 7:00 am ) Excision Lesion Skin Head/Neck Excision Full Thickness Skin Graft Torso Biopsy Lymph Node Head/[place] [address] [address] [place] [address] [facility] [address] [place] [address] Referral ID Status Reason Start Date Expiration Date Visits Re quested Visits Authorized [id number] 1 1 Care Team (unrecognized sect ion and content) Team Status: Active Member Role Status Dates Steve De Paz DO Primary Care Provider Active Team Status: Inactive Member Role Status Dates Steve De Paz DO Primary Care Provider Active Michele Arteaga MD Attending Provider Active Team Status: Inactive Member Role Status Dates Steve De Paz DO Primary Care Provider Active Jose R Cruz MD Attending Provider Active Busher Helper Relationship Specialty Start Date End Date Steve De Paz, [address] [place] [address] PCP - General Internal Medicine 10/28/23 Busher Helper Relationship Specialty Start Date End Date Steve De Paz DO [address] [place] [address] PCP - General Internal Medicine 10/28/23 Busher Helper Relationship Specialty Start Date End Date Steve De Paz DO [address] [place] [address] PCP - General Internal Medicine 10/28/23 Team Status: Inactive Member Role Status Dates Steve De Paz DO Attending Provider Active Sta rt: October 19, 2023 End: October 19, 2023 Team Status: Inactive Member Role Status Dates Steve De Paz DO Primary Care Provider Active Start: November 19, 2023 End: November 19, 2023 Elkin Holly MD Attending Provider Active S tart: November 19, 2023 End: November 19, 2023 Team Status: Inactive Member Role Status Dates Steve De Paz DO Primary Care Provider Active Start: November 24, 2023 End: November 24, 2023 Adilene Weinberg MD Attending Provider Active Start: November 24, 2023 End: November 24, 2023 Elkin Holly MD Referring Provider Active S tart: November 24, 2023 End: November 24, 2023 Team Status: Active Member Role Status Dates Steve De Paz DO Primary Care Provider Active Start: November 24, 2023 Adilene Weinberg MD Attending Provider Active Start: November 24, 2023 Elkin Holly MD Referring Provider Active S tart: November 24, 2023 Team Status: Inactive Member Role Status Dates Steve De Paz DO Primary Care Provide r, Attending Provider Active Start: December 10, 2023 End: December 10, 2023 Team Status: Active Member Role Status Dates Steve De Paz DO Primary Care Provider Active Start: December 17, 2023 Adilene Weinberg MD Attending Provider Active Start: December 17, 2023 Elkin Holly MD Referring Provider Active S tart: December 17, 2023 Team Status: Inactive Member Role Status Dates Steve De Paz DO Primary Care Provider Active Start: December 17, 2023 End: December 17, 2023 Adilene Weinberg MD Attending Provider Active Start: December 17, 2023 End: December 17, 2023 Team Status: Inactive Member Role Status Dates Steve De Paz DO Primary Care Provider Active Start: December 27, 2023 End: December 27, 2023 Michele Arteaga MD Attending Provider Active St art: December 27, 2023 End: December 27, 2023 Busher Helper Relationship Specialty Start Date End Date Steve De Paz DO [address] [place] [address] [place] [address] PCP - General Internal Medicine 10/28/23 Team Status: Inactive Member Role Status Dates Steve De Paz DO Primary Care Provide r, Attending Provider Active Start: January 19, 2024 End: January 19, 2024 Busher Helper Relationship Specialty Start Date End Date Steve De Paz DO [address] [place] [address] [place] [address] PCP - General Internal Medicine 10/28/23 Team Status: Active Member Role Status Dates Steve De Paz DO Primary Care Provider Active Start: March 16, 2024 Adilene Weinberg MD Attending Provider Active Start: March 16, 2024 Elkin Holly MD Referring Provider Active S tart: March 16, 2024 Team Status: Inactive Member Role Status Dates Steve De Paz DO Primary Care Provider Active Start: March 16, 2024 End: March 16, 2024 Adilene Weinberg MD Attending Provider Active Start: March 16, 2024 End: March 16, 2024 Goals (unrecognized section and content) Goals may be documented in a n alternate section Scheduled Active and Recently Administ ered Medications (unrecognized section and content) Medication Order 10/26/2023 10/27/2023 10/28/2023 lidocaine PF (Xylocaine) 10 mg/mL (1 %) injection 1 mg 1 mg (0.1 mL), subcutaneous, Once, On Ankita 10/28/23 at 1500, For 1 dose, Recovery (only), To be used for IV insertion ONLY 1500 (Due) Continuous Medication Order 10/26/2023 10/27/2023 10/28/2023 lactated Ringer's infusion 100 mL/hr, intravenous, Continuous, Starting on Ankita 10/28/23 at 1500, Recovery (only) 1500 (Due) PRN Medication Order 10/26/2023 10/27/2023 10/28/2023 albuterol 2.5 mg /3 mL (0.083 %) nebulizer solution 2.5 mg 2.5 mg, nebulization, Once as needed, wheezing, Starting on Ankita 10/28/23 at 1455, For 1 dose, Recovery (only) bacitracin ointment (CANCELED) As needed, Starting on Ankita 10/28/23 at 1421, Intraprocedure 1421 (Given - Provid er: Elkin Holly MD - Comment: RIGHT FOREHEAD AND ABOVE EAR ON INCISION LINES) fentaNYL PF (Sublimaze) injection 25 mcg 25 mcg, intravenous, Every 5 min PRN, pain moderate (4-6), first line, Starting on Ankita 10/28/23 at 1455, Recovery (only), Max total of 200 micrograms regardless of dose., If ordered PRN for pain, nurse is permitted to administer this medication for higher pain scores based on patient preference? Yes HYDROmorphone (Dilaudid) injection 0.5 mg 0.5 mg, intravenous, Every 5 min PRN, pain severe (7-10), first line, Starting on Ankita 10/28/23 at 1455, Recovery (only), Max total of 4 mg regardless of dose. labetaloL (Normodyne,Trandate) injection 5 mg (COMPLETED) 5 mg, intravenous, Administer over 1 Minutes, Once as needed, systolic blood pressure greater than 180 mmHg, dystolic blood pressure greater than 100 mmHg and heart rate greater than 60 BPM, Starting on Ankita 10/28/23 at 1455, For 1 dose, Recovery (only) 1459 (Given - Provid er: Samia Lipscomb RN) lidocaine-epinephrine (Xylocaine W/EPI) 1 %-1:100,000 injection (CANCELED) As needed, Starting on Ankita 10/28/23 at 1305, Intraprocedure 1305 (Given - Provid er: Elkin Holly MD - Comment: RIGHT FOREHEAD) meperidine PF (Demerol) injection 12.5 mg 12.5 mg, intravenous, Every 10 min PRN, shivering, Starting on Ankita 10/28/23 at 1455, Recovery (only) ondansetron (Zofran) injection 4 mg 4 mg, intravenous, Once as needed, nausea/vomiting, first line, Starting on Ankita 10/28/23 at 1455, For 1 dose, Recovery (only), When administering via IV Push, administer over 3-5 minutes. oxyCODONE (Roxicodone) immediate release tablet 5 mg 5 mg, oral, Every 4 hours PRN, pain mild (1-3), first line, Starting on Ankita 10/28/23 at 1455, Recovery (only), When able to take oral medications., If ordered PRN for pain, nurse is permitted to administer this medication for higher pain scores based on patient preference? Yes promethazine (Phenergan) 6.25 mg in sodium chloride 0.9% 50 mL IV 6.25 mg, intravenous, Administer over 15 Minutes, Once as needed, Nausea/vomiting, second line, Starting on Ankita 10/28/23 at 1455, For 1 dose, Recovery (only) FOR RECORDS PERTAINING TO PATIENTS WHO ARE [...] BE BASED ON THE PRIMARY CLINICAL RECORDS. [facility]. provides no warranty or guarantee of the accuracy or completeness of information in this document.
[2024-04-20 07:34] LABS: Basophils Absolute Auto 0.1 10^3/uL (0.0-0.1); Basophils Percent Auto 1.4 % (0.2-2.0); Eosinophils Absolute Auto 0.1 10^3/uL (0.0-0.7); Eosinophils Percent Auto 3.3 % (0.9-7.0); Immature Granulocytes Abs Auto 0.01 10^3/uL (0.00-0.03); Immature Granulocytes Pct Auto 0.2 % (0.0-0.5); Lymphocytes Percent Auto 23.6 % (20.5-60.0); Mean Corpuscular HGB Conc 31.3 g/dL (29.9-35.2); Mean Corpuscular Hemoglobin 31.1 pg (25.9-34.0); Mean Corpuscular Volume 99.4 fL (80.0-94.0); Mean Platelet Volume 9.9 fL (9.5-13.5); Monocytes Absolute Auto 0.6 10^3/uL (0.3-0.8); Monocytes Percent Auto 13.7 % (1.7-12.0); Neutrophils Absolute Auto 2.5 10^3/uL (1.4-6.5); Neutrophils Percent Auto 57.8 % (43.0-75.0); Platelet Count 110 10^3/uL (150-450); Red Blood Count 3.22 10^6/uL (4.70-6.10); Red Cell Distribution Width 13.7 % (11.0-15.0); White Blood Count 4.2 10^3/uL (4.0-11.0)
[2024-04-20 09:25] LABS: Percent Iron Saturation 22.3 %
== END 2024-04-20 07:08 | disposition home or self-care (01) ==
LOC: LAB 07:09
PROVIDERS: PCP Internal Medicine; Visit Provider Internal Medicine
DX: D63.8 Anemia in other chronic diseases classified elsewhere (principal)
CPT/HCPCS: 36415; 82607; 82728; 82746; 83540; 83550; 85025

== ENCOUNTER 2024-05-04 00:32 | Outpatient (RCR) | payer MEDICARE, BC, SELFPAY | END 2024-06-02 09:36 | disposition home or self-care (01) | LOC: MM 00:32 | PROVIDERS: PCP Internal Medicine; Visit Provider Internal Medicine | DX: Z51.81 Encounter for therapeutic drug level monitoring (principal); Z79.01 Long term (current) use of anticoagulants; I48.91 Unspecified atrial fibrillation ==

== ENCOUNTER 2024-05-10 08:52 | Outpatient (OUT) | payer MEDICARE, BC, SELFPAY ==
--- OUTSIDE RECORDS SUMMARY | 2024-05-10 09:17 | XMS_ITS | CCD ---
Author Organization [facility] Care Team Providers Care Object Oriented Programmer Name Role Phone Unavailable Primary Care Provider Unavailabl STEVE Smith Primary Care Unavailable FILIPPO JUDGE Attending Unavailable FILIPPO JUDGE Admitting Unavailable STEVE DE PAZ Referring Unavailable Vinh Lawton Unavailable STEVE DE PAZ Primary Care Physician [phone] DO Steve De Paz Primary Care Provider [phone] MD Michele Arteaga Attending Provider [phone] DO Steve De Paz Primary Care Provider [phone] MD Michele Arteaga Attending Provider [phone] Steve De Paz Unavailable WINTER ., DR ARCHIBALD Consulting Unavailable WINTER ., [...] H Admitting Unavailable DEBBIE GORDON Consulting Unavailable EVAN, DEBBIE Attending Unavailable DEBBIE GORDON Admitting Unavailable ZANDRA, DR EATON Primary Care Unavailable FILIPPO JUDGE Admitting Unavailable FILIPPO JUDGE Consulting Unavailable ZANDRA, DR EATON Primary Care Unavailable FILIPPO JUDGE Attending Unavailable DO Steve De Paz Primary Care Provider [phone] MD Michele Arteaga Attending Provider MD Jose R Cruz Attending Provider Cristela WINTER Attending Unavailable Cristela WINTER Attending Unavailable DO Steve De Paz Primary Care Provider MD Michele Arteaga Attending Provider Unavailable Primary Care Provider UnavailSteve Little DO Primary Care Provider ELKIN HOLLY Admitting Unavailable ELKIN HOLLY Attending Unavailable BALL, STEVE E Primary Care Unavailable ELKIN HOLLY Referring Unavailable BALL, STEVE E Primary Care Unavailable THRASHMI, ELKIN E Referring Unavailable BALL, STEVE E Primary Care Unavailable Zandra DO Steve Primary Care Provider MD Elkin Holly Attending Provider MD Adilene Weinberg Attending Provider MD Elkin Holly Referring Provider [phone] DO Steve De Paz Primary Care Provider MD Elkin Holly Attending Provider MD Adilene Weinberg Attending Provider [phone] MD Elkin Holly Referring Provider MD Michele Arteaga Attending Provider ELKIN HOLLY Attending Unavailable ELKIN HOLLY Attending Unavailable ZANDRA STEVE E Primary Care Unavailable ELKIN HOLLY Attending Unavailable ZANDRA STEVE E Primary Care Unavailable DEBBIE BOBBY Attending Unavailable ZANDRA, STEVE E Primary Care Unavailable DEBBIE GORDON Attending Unavailable DO Setve De Paz Primary Care Provider MD Adilene Weinberg Attending Provider MD Elkin Holly Referring Provider DO Steve De Paz Primary Care Provider Zandra Steve Primary Care Unavailable Elkin Holly Attending Unavailable Elkin Holly Admitting Unavailable Michele Arteaga Admitting Unavailable Ball, Steve Primary Care Unavailable Halrenan Michele Attending Unavailable Ball, Steve Primary Care Unavailable Adilene Weinberg Attending Unavailable Adilene Weinberg Admitting Unavailable Elkin Holly Referring Unavailable Chandler Michele Admitting Unavailable Ball, Steve Primary Care Unavailable Chandler Michele Attending Unavailable Unavailable Primary Care Provider Unavailabl e RAFA, MORE Referring Unavailable RAFA, MORE Referring Unavailable RAFA, MORE Referring Unavailable RAFA, MORE Referring Unavailable KAYLEY STAPLES Attending Unavailable FILIPPO JUDGE Referring Unavailable YULIANA AJ Attending Unavailable FILIPPO JUDGE Referring Unavailable RAFA, MORE Referring Unavailable MORE CRAIG Referring Unavailable Allergies Allergy Classification Reported Allergen(s) Allergy Type Date of Onset Reaction(s) Facility Latex (1 source) Latex Substance Allergy 4 Rash [facility] Penicillins (antibiotic) (1 source) Penicillins Drug Allergy 4 Swelling of the Eye [facility] (20 sources) Latex; Translations: [LATEX] Propensity to adverse reactions (disorder) 9 rash, Hives, Itching [facility] Repository (19 sources) Penicillins; Translations: [penicillins] Drug allergy (disorder) 0 Swelling of the Eye [facility] Repository (2 sources) Penicillin V Drug Allergy Unknown RADEUM Other (11 sources) Penicillin Drug Allergy Unknown RADEUM Other (10 sources) Penicillins Drug Allergy 4 Other, Other: See Comments, Swelling, Unknown [facility] Work Phone: (1 source) Penicillins Drug allergy (disorder) 4 [facility] Repository (1 source) Spironolactone; Translations: [SPIRONOLACTONE ] Drug Allergy 1 [facility] Repository Medications Current Medications Medication Drug Class(es) Dates [...] (20 sources) alpha-Adrenergic Amador Start: 11-24-2023 take 1 tablet by mouth once daily, then take 1 tablet by mouth every twenty-four hours alfuzosin SR (UROXATRAL) 10 mg 24 hr tablet Take 10 mg by mouth once daily. 0 11/24/2023 Active Start: 12-22-2021 End: 11-21-2023 take 1 tablet by mouth once daily alfuzosin 10 mg ER Tab 10 mg = 1 tab(s), Oral, Daily, X 90 day(s), # 90 tab(s), Refills(s) 3, Pharmacy: [facility], 178, cm, 05/04/22 12:45:00 EDT, Height/Length Dosing, 76, kg, 05/04/22 12:45:00 EDT, Weight Dosing Start Date: 11/26/22 Stop Date: 11/21/23 Status: Ordered amLODIPine 2.5 mg oral tablet (1 source) Dihydropyridine Calcium Channel Amador Start: 04-25-2024 take 2.5 mg by mouth once daily Amlodipine Active 2.5 MG PO Daily 90 90 April 25, 2024 12:00am atorvastatin 40 mg oral tablet (20 sources) [...] tablet (20 sources) Vitamin D Start: 07-13-2017 Calcium-Cholec alciferol, D3, 500 mg-3.125 mcg (125 unit) tab 1 tablet. 0 07/13/2017 Active Start: 07-13-2017 take 1 tablet by ho th once daily Calcium Carbonate-Vitamin D3 (Calcium 500 [...] route. Active take 1 capsule by mo pah every other day Vitamin D3 25 MCG [...] daily. Active take 1 tablet by ho every twenty-four hours Iron 325 (65 Fe) MG 1 tablet Orally Once a day Active fexofenadine hydrochloride 180 mg oral tablet (12 sources) Histamine-1 Receptor Antagonist Start: 11-24-2023 take [...] Daily, # 90 tab(s), Refills(s) 3, Pharmacy: [facility], 178, cm, 05/04/22 12:45:00 EDT, Height/Length Dosing, 76, kg, 05/04/22 12:45:00 EDT, Weight Dosing Start Date: 11/26/22 Status: Ordered furosemide 20 mg oral tablet (19 sources) Loop Diuretic Start: 04-08-2020 take 20 [...] 19, 2024 8:07am Start: 04-08-2020 take 1 tablet by ho th once daily leflunomide (ARAVA) 20 mg tablet Take 20 mg by mouth once daily. 0 04/08/2020 Active Start: 07-13-2017 End: 01-19-2024 take 20 g [...] 1 tablet by mouth once daily losartan (COZAAR) 50 mg tablet Take 50 mg by mouth once daily. 0 07/13/2017 Active 1 ml meperidine hydrochloride 50 mg/ml injection [...] 2023 6:13pm January 19, 2024 8:12am Start: 10-26-2023 [facility] metoprolol succinate ER (TOPROL XL) 50 mg 24 hr tablet Take 25 mg by mouth once daily. 0 10/26/2023 Active Start: 07-13-2017 End: 01-19-2024 take 25 mg by mouth once daily Metoprolol Succinate Di scontinued 25 MG PO Daily July 13, 2017 12:00am January 19, 2024 8:09am take 2 tablets by mo [facility] every twenty-four hours Metoprolol Succinate ER 50 MG 2 tablet Orally Once a day Active Nitro 0.4 mg Tab (1 source) Start: 04-11-2021 Nitro 0.4 mg T ab = 1 tab(s), SubLingual, q5min, PRN Chest pain, # 25 tab(s), Refills(s) 3 Start Date: 04/11/21 Status: Ordered nitroglycerin 0.4 mg sublingual tablet (16 sources) Nitrate Vasodilator Start: 01-19-2024 Nitroglyce rin [...] Tuberculosis Skin Test, Skin Test Antigen sennosides, snf 8.6 mg oral tablet (6 sources) Start: [...] sources) Vitamin K Antagonist Start: 07-13-2017 take 1 tablet by mouth once daily warfarin (COUMADIN) 5 mg tablet Take 5 mg by mouth once daily. 0 07/13/2017 Active Warfarin 5mg 5 m g 1 1/2 tablet orally daily Active Completed/Discontinued Medications Medication Drug Class(es) Dates Sig (Normalized) Sig (Original) aspirin 81 mg delayed release oral tablet (13 sources) Platelet Aggregation Inhibitor, Nonsteroidal Anti-inflammatory Drug [...] Jan, Not-Taking hydroCHLOROthiazide 25 mg oral tablet (13 sources) Thiazide Diuretic Start: 07-13-2017 End: 11-24-2023 take 25 mg by mouth once daily Hydrochlorothiazide Discontinued 25 MG PO Daily July 13, 2017 12:00am November 24, 2023 9:31am labetalol hydrochloride 5 mg/ml injectable solution (1 source) beta-Adrenergic Amador Start: 10-28-2023 End: 10-28-2023 labetaloL (Normodyne,Trandate) injection 5 mg mecobalamin 1 mg chewable tablet (6 sources) Start: 11-24-2023 End: 01-19-2024 take 1000 ug by mouth once daily Mecobalamin (Vitamin B12) Discontinued 1000 MCG PO Daily November 24, 2023 1:00am January 19, 2024 8:11am [id number] (Lymphoseek) injection 0.992 millicurie (2 sources) Start: 10-28-2023 End: 10-28-2023 [id number] (Lymphoseek) injection 0.992 millicurie triamcinolone acetonide 40 [...] to other specified organisms Episodic Administrative/social admission (14 sources) Patient encounter status; Translations: [Other specified [...] nuclear cataract, left eye] Onset: 2 Chronic Coagulation and hemorrhagic disorders (2 sources) Thrombocytopenic disorder; Translations: [Thrombocytopenia, unspecified] 04-25-2024 Chronic Complication of device; implant or graft [...] 2 03-28-2020 Chronic Deficiency and other anemia (14 sources) Iron deficiency anemia; Translations: [Iron deficiency anemia, unspecified] 01-19-2024 Episodic Deficiency and other anemia (5 sources) Anemia; Translations: [Anemia, unspecified] Onset: 4 01-16-2024 Episodic Deficiency and other anemia (3 sources) Anemia, unspecified; Translations: [Anemia, unspecified] 01-19-2024 [...] Onset: 2 Resolved: 2 Episodic Gastrointestinal hemorrhage (12 sources) Rectal hemorrhage; Translations: [Hemorrhage of anus [...] sources) Long-term current use of anticoagulant; 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] Episodic Other aftercare (5 sources) 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; Translations: [CUSTODIAL CURRNT USE ANTICOAGULANTS] Onset: 3 Episodic Other aftercare (5 sources) Encounter for therapeutic drug level monitoring; Translations: [ENC THERAPEUTC DRUG LEVL MONITORING] Onset: 3 Episodic Other aftercare (2 sources) Other long term care administrator (current) drug therapy; Translations: [OTH CHIEF OF HARBOR PATROL CURRENT DRUG THERAPY] Onset: 2 Episodic Other aftercare (2 sources) Long-term current use of drug therapy; Translations: [Other long term care administrator (current) drug therapy] Episodic Other circulatory disease [...] Episodic Other diseases of veins and lymphatics (13 sources) Peripheral venous insufficiency; Translations: [Venous insufficiency [...] of right upper eyelid] 01-17-2024 Episodic Other eye disorders (1 source) Dermatochalasis of right upper eyelid; Translations: [Dermatochalasis] 04-27-2024 Episodic Other eye disorders (1 source) Bilateral myogenic ptosis of eyes; 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] 04-27-2024 Episodic Other fractures (2 sources) Closed fracture [...] pain; Translations: [Other acute postprocedural pain] Onset: Episodic Other non-traumatic joint disorders (10 sources) [...] 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] Onset: 05-06-2022 Episodic Open wounds of extremities (2 sources) [...] (9 sources) Onset: 10-08-2023 Resolved: 01-17-2024 10-08-2023 Results Test Name Value Interpretation Reference Range Facility Office Visiton 05-02-2024 Follow-up visit [id number] Nelly Hannon 1935 M Date Provider Department Center 05/02/2024 KAYLEY CROSS CARD [facility] Family History Problem Relation Age of Onset Other Mother Coronary artery disease Father Family Status - Relation Status Age at Mother Father Level of Service:16443 [place] OFFICE/OUTPATIENT ESTABLISHED MOD MDM 30 MIN Reason for Visit and Comments: Atrial Fibrillation [80] Congestive Heart Failure [127] Hypertension [948318] Hyperlipidemia [182] Normal [facility] Basophils Auto (Bld) [#/Vol] on 04-20-2024 Basophils (Bld) [#/Vol] 0.1 10 3/uL 0.0-0.1 [facility] Basophils/100 WBC Auto (Bld) on 04-20-2024 Basophils/100 WBC (Bld) 1.4 % 0.2-2.0 [facility] Eosinophils/100 WBC Auto (Bl d)on 04-20-2024 Eosinophils/100 WBC (Bld) 3.3 % 0.9-7.0 [facility] Erythrocyte distribution wid th Auto (RBC) [Ratio]on 04-20-2024 Erythrocyte distribution width (RBC) [Ratio] 13.7 % 11.0-15.0 [facility] Hematocrit Auto (Bld) [Volum e fraction]on 04-20-2024 Hematocrit (Bld) [Volume fraction] 32.0 % Low 42.0-54.0 [facility] Hemoglobin [Mass/volume] in Bloodon 04-20-2024 Hemoglobin (Bld) [Mass/Vol] 10.0 g/dL Low 14.0-18.0 [facility] Iron binding capacity [Mass/ volume] in Serum or Plasmaon 04-20-2024 Iron binding capacity [Mass/Vol] 264.0 ug/dL 250.0-450.0 [facility] Iron saturation [Mass Fracti on] in Serum or Plasmaon 04-20-2024 Iron saturation [Mass fraction] 22.3 % [facility] Laboratory - Chemistry and C hemistry - challengeon 04-20-2024 Cobalamin (Vitamin B12) [Mass/Vol] 1273.0 pg/mL High 193.0-986.0 [facility] Ferritin [Mass/Vol] 122.0 ng/mL 26.0-388.0 [facility] Iron [Mass/Vol] 59.0 ug/dL Low 65.0-175.0 [facility] - Hematology and Cell countson 04-20-2024 Immature granulocytes/100 WBC (Bld) 0.2 % 0.0-0.5 [facility] Leukocytes [#/volume] correc bert for nucleated erythrocytes in Blood by Automated counon 04-20-2024 WBC corrected for nucl RBC Auto (Bld) [#/Vol] 4.2 10 3/uL 4.0-11.0 [facility] Lymphocytes Auto (Bld) [#/Vo l]on 04-20-2024 Lymphocytes (Bld) [#/Vol] 1.0 10 3/uL Low 1.2-3.8 [facility] Lymphocytes/100 WBC Auto (Bl d)on 04-20-2024 Lymphocytes/100 WBC (Bld) 23.6 % 20.5-60.0 [facility] MCH Auto (RBC) [Entitic mass ]on 04-20-2024 MCH (RBC) [Entitic mass] 31.1 pg 25.9-34.0 [facility] MCHC Auto (RBC) [Mass/Vol]on 04-20-2024 MCHC (RBC) [Mass/Vol] 31.3 g/dL 29.9-35.2 [facility] MCV Auto (RBC) [Entitic vol] on 04-20-2024 MCV (RBC) [Entitic vol] 99.4 fL High 80.0-94.0 F [facility] Monocytes Auto (Bld) [#/Vol] on 04-20-2024 Monocytes (Bld) [#/Vol] 0.6 10 3/uL 0.3-0.8 [facility] Monocytes/100 WBC Auto (Bld) on 04-20-2024 Monocytes/100 WBC (Bld) 13.7 % High 1.7-12.0 [facility] Neutrophils Auto (Bld) [#/Vo l]on 04-20-2024 Neutrophils (Bld) [#/Vol] 2.5 10 3/uL 1.4-6.5 [facility] Neutrophils/100 WBC Auto (Bl d)on 04-20-2024 Neutrophils/100 WBC (Bld) 57.8 % 43.0-75.0 [facility] No Panel Informationon 04-20 Eosinophils # (Auto) 0.1 10 3/uL 0.0-0.7 [facility] Folate 10.10 ng/mL 8.60-58.90 [facility] Immature Granulocyte # (Auto) 0.01 10 3/uL 0.00-0.03 [facility] Platelet mean volume Auto (B ld) [Entitic vol]on 04-20-2024 Platelet mean volume (Bld) [Entitic vol] 9.9 fL 9.5-13.5 [facility] Platelets Auto (Bld) [#/Vol] on 04-20-2024 Platelets (Bld) [#/Vol] 110 10 3/uL Low 150-450 [facility] RBC Auto (Bld) [#/Vol]on RBC (Bld) [#/Vol] 3.22 10 6/uL Low 4.70-6.10 [facility] Alanine aminotransferase [En zymatic activity/volume] in Serum or PlasmaOrdered By: Adilene Weinberg on 03-14-2024 ALT [Catalytic activity/Vol] 18 U/L Normal 7-52 [facility] Comment on above: Performed By: #### L DH, CBC, CMP #### [facility] [address] Albumin [Mass/volume] in Ser um or Plasma by Bromocresol green (BCG) dye binding methoOrdered By: Adilene Weinberg on 03-14-2024 Albumin BCG dye [Mass/Vol] 4.3 g/dL 3.5-5.7 [facility] Alkaline phosphatase [Enzyma tic activity/volume] in Serum or PlasmaOrdered By: Adilene Weinberg on 03-14-2024 ALP [Catalytic activity/Vol] 85 U/L Normal 34-104 [facility] Comment on above: Performed By: #### L DH, CBC, CMP #### [facility] [address] Aspartate aminotransferase [ Enzymatic activity/volume] in Serum or PlasmaOrdered By: Adilene Weinberg on 03-14-2024 AST [Catalytic activity/Vol] 17 U/L Normal 13-39 [facility] Comment on above: Performed By: #### L DH, CBC, CMP #### [facility] [address] [place] [address] [place] Automated basophil %Ordered By: Adilene Weinberg on 03-14-2024 Basophils/100 WBC (Bld) 0.8 % Normal . [facility] Comment on above: Performed By: #### L DH, CBC, CMP #### [facility] [address] [place] [address] [place] Automated basophil countOrde red By: Adilene Lenard on 03-14-2024 Basophils (Bld) [#/Vol] 0.0 10*3/uL Normal 0.0-0.2 [facility] Comment on above: Result Comment: PERF ORMED BY: [place] [address] PATHOLOGIST SENIOR BUSINESS ARCHITECT NIYA BARRERA M.D. Performed By: #### L DH, CBC, CMP #### [address] Automated blood monocyte cou ntOrdered By: Adilene Weinberg on 03-14-2024 Monocytes (Bld) [#/Vol] 0.8 10*3/uL Normal 0.0-0.8 [facility] Comment on above: Performed By: #### L DH, CBC, CMP #### [address] Automated eosinophil %Ordere d By: Adilene Weinberg on 03-14-2024 Eosinophils/100 WBC (Bld) 2.1 % Normal . [facility] Comment on above: Performed By: #### L DH, CBC, CMP #### [address] Automated eosinophil countOr dered By: Adilene Weinberg on 03-14-2024 Eosinophils (Bld) [#/Vol] 0.1 10*3/uL Normal 0.0-0.45 [facility] Comment on above: Performed By: #### L DH, CBC, CMP #### [address] Automated monocyte %Ordered By: Adilene Weinberg on 03-14-2024 Monocytes/100 WBC (Bld) 12.8 % Normal . [facility] Comment on above: Performed By: #### L DH, CBC, CMP #### [address] Automated neutrophil %Ordere d By: Adilene Weinberg on 03-14-2024 Neutrophils/100 WBC (Bld) 72.6 % Normal . [facility] Comment on above: Performed By: #### L DH, CBC, CMP #### [address] Bilirubin.total [Mass/volume ] in Serum or PlasmaOrdered By: Adilene Weinberg on 03-14-2024 Bilirubin [Mass/Vol] 0.6 mg/dL Normal 0.3-1.0 [facility] Comment on above: Performed By: #### L DH, CBC, CMP #### [address] Calcium [Mass/volume] in Ser um or PlasmaOrdered By: Adilene Weinberg on 03-14-2024 Calcium [Mass/Vol] 9.4 mg/dL Normal 8.6-10.3 [facility] Comment on above: Performed By: #### L DH, CBC, CMP #### [address] Carbon dioxide, total [Moles /volume] in Serum or PlasmaOrdered By: Adilene Weinberg on 03-14-2024 CO2 [Moles/Vol] 31.8 mmol/L High 21.0-31.0 [facility] Comment on above: Performed By: #### L DH, CBC, CMP #### [facility] [address] [place] [address] Chloride [Moles/volume] in S boby or PlasmaOrdered By: Adilene Weinberg on 03-14-2024 Chloride [Moles/Vol] 105 mmol/L Normal 98-107 [facility] Comment on above: Performed By: #### L DH, CBC, CMP #### [facility] [address] [place] [address] Complete Blood Count Auto Di ffon 03-14-2024 Mean Corpuscular HGB Conc 34.0 g/dL Normal 32.5-35.6 [facility] Comment on above: Performed By: #### L DH, CBC, CMP #### [facility] [address] [place] [address] NRBC% 0.1 /100{WBC} Normal 0-0.5 [facility] Comment on above: Performed By: #### L DH, CBC, CMP #### [address] Comprehensive Metabolic Pane delbert 03-14-2024 Albumin [Mass/Vol] 4.3 g/dL Normal 3.5-5.7 [facility] Comment on above: Performed By: #### L DH, CBC, CMP #### [address] Creatinine Clr Calc Pharmacy 51.65 Normal [facility] Comment on above: Performed By: #### L DH, CBC, CMP #### [address] GFR/1.73 sq M.predicted MDRD (S/P/Bld) [Vol rate/Area] mL/min/{1.73_m2} Normal [facility] Comment on above: Performed By: #### L DH, CBC, CMP #### [address] Creatinine [Mass/volume] in Serum or PlasmaOrdered By: Adilene Weinberg on 03-14-2024 Creatinine [Mass/Vol] 1.06 mg/dL Normal 0.70-1.30 [facility] Comment on above: Performed By: #### L DH, CBC, CMP #### [address] Erythrocyte distribution wid th [Ratio] by Automated countOrdered By: Adilene Weinberg on 03-14-2024 Erythrocyte distribution width (RBC) [Ratio] 15.4 % High 12.0-14.8 [facility] Comment on above: Performed By: #### L DH, CBC, CMP #### [address] Erythrocytes [#/volume] in B lood by Automated countOrdered By: Adilene Weinberg on 03-14-2024 RBC (Bld) [#/Vol] 3.12 10*6/uL Low 3.90-5.60 [facility] Comment on above: Performed By: #### L DH, CBC, CMP #### [address] Glucose [Mass/volume] in Ser um or PlasmaOrdered By: Adilene Weinberg on 03-14-2024 Glucose [Mass/Vol] 89 mg/dL Normal 70-100 [facility] Comment on above: ADA recommended refe rence rangeRandom Glucose Reference Range is dependent on time and content of last meal. Glucose of more than 200 mg/dL in a nonstressed, ambulatory subject supports the diagnosis of Diabetes Mellitus. Result Comment: [place] om Glucose Reference Range is dependent on time and content of last meal. Glucose of more than 200 mg/dL in a nonstressed, ambulatory subject supports the diagnosis of Diabetes Mellitus. ADA recommended reference range Performed By: #### L DH, CBC, CMP #### [facility] [address] Hematocrit [Volume Fraction] of Blood by Automated countOrdered By: Adilene Weinberg on 03-14-2024 Hematocrit (Bld) [Volume fraction] 28.8 % Low 38.8-50.0 [facility] Comment on above: Performed By: #### L DH, CBC, CMP #### [facility] [address] Hemoglobin [Mass/volume] in BloodOrdered By: Adilene Weinberg on 03-14-2024 Hemoglobin (Bld) [Mass/Vol] 9.8 g/dL Low 13.0-17.0 [facility] Comment on above: Performed By: #### L DH, CBC, CMP #### [facility] [address] LDH Lactate Dehydrogenaseon 03-14-2024 LDH Lactate Dehydrogenase 205 U/L Normal 140-271 [facility] Comment on above: Result Comment: PERF ORMED BY: [facility] [address] [place] [address] PATHOLOGIST SENIOR BUSINESS ARCHITECT NIYA BARRERA M.D. Performed By: #### L DH, CBC, CMP ####[facility] [address] Lactate dehydrogenase [Enzym atic activity/volume] in Serum or Plasma by Lactate to pyOrdered By: Adilene Weinberg on 03-14-2024 LDH Lactate to pyruvate reaction [Catalytic activity/Vol] 205 U/L 140-271 [facility] Leukocytes [#/volume] correc bert for nucleated erythrocytes in Blood by Automated counOrdered By: Adilene Weinberg on 03-14-2024 WBC corrected for nucl RBC Auto (Bld) [#/Vol] 6.0 10*3/uL 4.1-10.5 [facility] Leukocytes [#/volume] in Blo od by Automated countOrdered By: Adilene Weinberg on 03-14-2024 WBC (Bld) [#/Vol] 6.0 10*3/uL Normal 4.1-10.5 [facility] Comment on above: Performed By: #### L DH, CBC, CMP #### [facility] [address] [place] [address] Lymphocytes [#/volume] in Bl ood by Automated countOrdered By: Adilene Weinberg on 03-14-2024 Lymphocytes (Bld) [#/Vol] 0.7 10*3/uL Low 1.00-4.8 [facility] Comment on above: Performed By: #### L DH, CBC, CMP #### [facility] [address] Lymphocytes/100 leukocytes i n Blood by Automated countOrdered By: Adilene Weinberg on 03-14-2024 Lymphocytes/100 WBC (Bld) 11.7 % Normal . [facility] Comment on above: Performed By: #### L DH, CBC, CMP #### [facility] [address] [place] [address] [place] MCH [Entitic mass] by Automa bert countOrdered By: Adilene Weinberg on 03-14-2024 MCH (RBC) [Entitic mass] 31.4 pg Normal 27.5-35.2 [facility] Comment on above: Performed By: #### L DH, CBC, CMP #### [facility] [address] [place] [address] MCHC Auto (RBC) [Mass/Vol]Or dered By: Adilene Weinberg on 03-14-2024 MCHC (RBC) [Mass/Vol] 34.0 g/dL 32.5-35.6 [facility] MCV [Entitic volume] by Auto mated countOrdered By: Adilene Weinberg on 03-14-2024 MCV (RBC) [Entitic vol] 92.2 fL Normal 83.5-101 F [facility] Comment on above: Performed By: #### L DH, CBC, CMP #### [address] Neutrophils [#/volume] in Bl ood by Automated countOrdered By: Adilene Weinberg on 03-14-2024 Neutrophils (Bld) [#/Vol] 4.3 10*3/uL Normal 1.8-7.7 [facility] Comment on above: Performed By: #### L DH, CBC, CMP #### [address] No Panel InformationOrdered By: Adilene Weinberg on 03-14-2024 Estimated GFR (CKD-EPI) > 60.0 mL/Min [facility] Creatinine Clearance (Chem 51.65 [facility] Nucleated erythrocytes [Pres ence] in Blood by Automated countOrdered By: Adilene Weinberg on 03-14-2024 Nucleated RBC Auto Ql (Bld) 0.1 /100{WBC} 0-0.5 [facility] Platelet mean volume [Entiti c volume] in Blood by Automated countOrdered By: Adilene Weinberg on 03-14-2024 Platelet mean volume (Bld) [Entitic vol] 8.1 fL Normal 6.6-10.1 [facility] Comment on above: Performed By: #### L DH, CBC, CMP #### [place] [address] [place] Platelets [#/volume] in Bloo d by Automated countOrdered By: Adilene Weinberg on 03-14-2024 Platelets (Bld) [#/Vol] 145 10*3/uL Low 150-450 [facility] Comment on above: Performed By: #### L DH, CBC, CMP #### [address] Potassium [Moles/volume] in Serum or PlasmaOrdered By: Adilene Weinberg on 03-14-2024 Potassium [Moles/Vol] 3.9 mmol/L Normal 3.5-5.1 [facility] Comment on above: Performed By: #### L TYLER CBC, CMP #### [address] Protein [Mass/volume] in Ser um or PlasmaOrdered By: Adilene Weinberg on 03-14-2024 Protein [Mass/Vol] 6.3 g/dL Low 6.4-8.9 [facility] Comment on above: Performed By: #### L TYLER CBC, CMP #### [address] Serum globulin measurement b y calculation (mass/volume)Ordered By: Adilene Weinberg on 03-14-2024 Globulin (S) [Mass/Vol] 2.0 g/dL Normal F [facility] Comment on above: Performed By: #### L TYLER CBC, CMP #### [address] Serum or plasma albumin/glob ulin mass ratioOrdered By: Adilene Weinberg on 03-14-2024 Albumin/Globulin [Mass ratio] 2.2 {ratio} Normal [facility] Comment on above: Performed By: #### L MINNA SCOTT, CMP #### [address] Serum or plasma anion gap de terminationOrdered By: Adilene Weinberg on 03-14-2024 Anion gap [Moles/Vol] 8.1 mmol/L Normal 6.0-15.0 [facility] Comment on above: Performed By: #### L TYLER CBC, CMP #### [address] Sodium [Moles/volume] in Ser um or PlasmaOrdered By: Adilene Weinberg on 03-14-2024 Sodium [Moles/Vol] 141 mmol/L Normal 136-145 [facility] Comment on above: Performed By: #### L TYLER CBC, CMP #### [address] US extremity nonvascularon 0 03-14-2024 US extremity nonvascular [facility] [place] [address] [place] [address] Ultrasound Report Signed Patient: Nelly Hannon MR#: [id number] 0 : 1935 Acct:[id number] Age/Sex: 88 / M ADM Date: 03/14/24 Loc: Room: Type: [facility] Attending Dr: Adilene Weinberg MD Ordering Provider: Adilene Weinberg MD Date of Service: 03/14/24 US/US extremity [...] disease. Impression dictated by: Festus Silver Jr., D.OSantos03/14/2024 2:34 PM Dictation Location: [place] [address] Tech: Rachelle Magaly Transcribed By: PHYLLIS 03/14/24 1434 Dictated By: Festus Silver Jr, DO 03/14/24 1433 Signed By: 03/14/24 1434 Normal [facility] Urea nitrogen [Mass/volume] in Serum or PlasmaOrdered By: Adilene Weinberg on 03-14-2024 Urea nitrogen [Mass/Vol] 14 mg/dL Normal 04-27 [facility] Comment on above: Performed By: #### L DH, CBC, CMP #### [facility] [address] [place] [address] [place] Alanine aminotransferase [En zymatic activity/volume] in Serum or PlasmaOrdered By: Michele Arteaga on 12-27-2023 ALT [Catalytic activity/Vol] 30 U/L Normal [facility] Comment on above: Performed By: #### H EPATIC, ESR, CBC, CREAT #### [facility] [address] [place] [address] [place] Albumin [Mass/volume] in Ser um or Plasma by Bromocresol green (BCG) dye binding methoOrdered By: Michele Arteaga on 12-27-2023 Albumin BCG dye [Mass/Vol] 4.5 g/dL 3.5-5.7 [facility] Alkaline phosphatase [Enzyma tic activity/volume] in Serum or PlasmaOrdered By: Michele Arteaga on 12-27-2023 ALP [Catalytic activity/Vol] 74 U/L Normal 34-104 [facility] Comment on above: Performed By: #### H EPATIC, ESR, CBC, CREAT #### [address] Aspartate aminotransferase [ Enzymatic activity/volume] in Serum or PlasmaOrdered By: Michele Arteaga on 12-27-2023 AST [Catalytic activity/Vol] 24 U/L Normal 13-39 [facility] Comment on above: Performed By: #### H EPATIC, ESR, CBC, CREAT #### [address] Automated basophil %Ordered By: Michele Arteaga on 12-27-2023 Basophils/100 WBC (Bld) 0.9 % Normal . [facility] Comment on above: Performed By: #### H EPATIC, ESR, CBC, CREAT #### [address] Automated basophil countOrde red By: Michele Arteaga on 12-27-2023 Basophils (Bld) [#/Vol] 0.0 10*3/uL Normal 0.0-0.2 [facility] Comment on above: Performed By: #### H EPATIC, ESR, CBC, CREAT #### [address] Automated blood monocyte cou ntOrdered By: Michele Arteaga on 12-27-2023 Monocytes (Bld) [#/Vol] 0.5 10*3/uL Normal 0.0-0.8 [facility] Comment on above: Performed By: #### H EPATIC, ESR, CBC, CREAT #### [address] Automated eosinophil %Ordere d By: Michele Arteaga on 12-27-2023 Eosinophils/100 WBC (Bld) 1.9 % Normal . [facility] Comment on above: Performed By: #### H EPATIC, ESR, CBC, CREAT #### [facility] [address] Automated eosinophil countOr dered By: Michele Arteaga on 12-27-2023 Eosinophils (Bld) [#/Vol] 0.1 10*3/uL Normal 0.0-0.45 [facility] Comment on above: Performed By: #### H EPATIC, ESR, CBC, CREAT #### [facility] [address] Automated monocyte %Ordered By: Michele Arteaga on 12-27-2023 Monocytes/100 WBC (Bld) 11.0 % Normal . [facility] Comment on above: Performed By: #### H EPATIC, ESR, CBC, CREAT #### [facility] [address] Automated neutrophil %Ordere d By: Michele Arteaga on 12-27-2023 Neutrophils/100 WBC (Bld) 69.1 % Normal . [facility] Comment on above: Performed By: #### H EPATIC, ESR, CBC, CREAT #### [facility] [address] Bilirubin.direct [Mass/volum e] in Serum or PlasmaOrdered By: Michele Arteaga on 12-27-2023 Bilirubin.direct [Mass/Vol] 0.20 mg/dL 0.03-0.18 [facility] Bilirubin.total [Mass/volume ] in Serum or PlasmaOrdered By: Michele Arteaga on 12-27-2023 Bilirubin [Mass/Vol] 0.7 mg/dL Normal 0.3-1.0 [facility] Comment on above: Performed By: #### H EPATIC, ESR, CBC, CREAT #### [facility] [address] Complete Blood Count Auto Di ffon 12-27-2023 Mean Corpuscular HGB Conc 32.9 g/dL Normal 32.5-35.6 [facility] Comment on above: Performed By: #### H EPATIC, ESR, CBC, CREAT #### [address] NRBC% 0.1 /100{WBC} Normal 0-0.5 [facility] Comment on above: Performed By: #### H EPATIC, ESR, CBC, CREAT #### [address] Creatinineon 12-27-2023 GFR/1.73 sq M.predicted MDRD (S/P/Bld) [Vol rate/Area] mL/min/{1.73_m2} Normal [facility] Comment on above: Result Comment: PERF ORMED BY: [place] [address] PATHOLOGIST SENIOR BUSINESS ARCHITECT NIYA BARRERA M.D. Performed By: #### H EPATIC, ESR, CBC, CREAT #### [address] Creatinine [Mass/volume] in Serum or PlasmaOrdered By: Michele Arteaga on 12-27-2023 Creatinine [Mass/Vol] 1.08 mg/dL Normal 0.70-1.30 [facility] Comment on above: Performed By: #### H EPATIC, ESR, CBC, CREAT #### [address] Erythrocyte Sedimentation Ra shayy 12-27-2023 ESR (Bld) [Velocity] 11 mm/h Normal 0-19 [facility] Comment on above: Result Comment: PERF ORMED BY: [place] [address] PATHOLOGIST SENIOR BUSINESS ARCHITECT NIYA BARRERA M.D. Performed By: #### H EPATIC, ESR, CBC, CREAT #### [address] Erythrocyte distribution wid th [Ratio] by Automated countOrdered By: Michele Arteaga on 03-25-2024 Erythrocyte distribution width (RBC) [Ratio] 14.8 % Normal 12.0-14.8 [facility] Comment on above: Performed By: #### H EPATIC, ESR, CBC, CREAT #### [address] Erythrocyte sedimentation ra te by Photometric methodOrdered By: Michele Arteaga on 12-27-2023 ESR Photometric method (Bld) [Velocity] 11 mm/hr 0-19 [facility] Erythrocytes [#/volume] in B lood by Automated countOrdered By: Michele Arteaga on 12-27-2023 RBC (Bld) [#/Vol] 3.48 10*6/uL Low 3.90-5.60 [facility] Comment on above: Performed By: #### H EPATIC, ESR, CBC, CREAT #### [address] Hematocrit [Volume Fraction] of Blood by Automated countOrdered By: Michele Arteaga on 12-27-2023 Hematocrit (Bld) [Volume fraction] 32.1 % Low 38.8-50.0 [facility] Comment on above: Performed By: #### H EPATIC, ESR, CBC, CREAT #### [address] Hemoglobin [Mass/volume] in BloodOrdered By: Michele Arteaga on 12-27-2023 Hemoglobin (Bld) [Mass/Vol] 10.5 g/dL Low 13.0-17.0 [facility] Comment on above: Performed By: #### H EPATIC, ESR, CBC, CREAT #### [address] Hepatic Panelon 12-27-2023 Albumin [Mass/Vol] 4.5 g/dL Normal 3.5-5.7 [facility] Comment on above: Performed By: #### H EPATIC, ESR, CBC, CREAT #### [address] Bilirubin,Indirect 0.5 mg/dL Normal [facility] Comment on above: Performed By: #### H EPATIC, ESR, CBC, CREAT #### [address] Bilirubin.indirect [Mass/Vol] 0.20 mg/dL High 0.03-0.18 [facility] Comment on above: Performed By: #### H EPATIC, ESR, CBC, CREAT #### [address] Leukocytes [#/volume] correc bert for nucleated erythrocytes in Blood by Automated counOrdered By: Michele Arteaga on 12-27-2023 WBC corrected for nucl RBC Auto (Bld) [#/Vol] 4.9 10*3/uL 4.1-10.5 [facility] Leukocytes [#/volume] in Blo od by Automated countOrdered By: Michele Arteaga on 12-27-2023 WBC (Bld) [#/Vol] 4.9 10*3/uL Normal 4.1-10.5 [facility] Comment on above: Performed By: #### H EPATIC, ESR, CBC, CREAT #### [address] Lymphocytes [#/volume] in Bl ood by Automated countOrdered By: Michele Arteaga on 12-27-2023 Lymphocytes (Bld) [#/Vol] 0.8 10*3/uL Low 1.00-4.8 [facility] Comment on above: Performed By: #### H EPATIC, ESR, CBC, CREAT #### [facility] [address] [place] [address] Lymphocytes/100 leukocytes i n Blood by Automated countOrdered By: Michele Arteaga on 12-27-2023 Lymphocytes/100 WBC (Bld) 17.1 % Normal . [facility] Comment on above: Performed By: #### H EPATIC, ESR, CBC, CREAT #### [address] MCH [Entitic mass] by Automa bert countOrdered By: Michele Arteaga on 12-27-2023 MCH (RBC) [Entitic mass] 30.3 pg Normal 27.5-35.2 [facility] Comment on above: Performed By: #### H EPATIC, ESR, CBC, CREAT #### [facility] [address] [place] [address] MCHC Auto (RBC) [Mass/Vol]Or dered By: Michele Arteaga on 12-27-2023 MCHC (RBC) [Mass/Vol] 32.9 g/dL 32.5-35.6 [facility] MCV [Entitic volume] by Auto mated countOrdered By: Michele Arteaga on 12-27-2023 MCV (RBC) [Entitic vol] 92.2 fL Normal 83.5-101 F [facility] Comment on above: Performed By: #### H EPATIC, ESR, CBC, CREAT #### [address] Neutrophils [#/volume] in Bl ood by Automated countOrdered By: Michele Arteaga on 12-27-2023 Neutrophils (Bld) [#/Vol] 3.4 10*3/uL Normal 1.8-7.7 [facility] Comment on above: Performed By: #### H EPATIC, ESR, CBC, CREAT #### [facility] [address] [place] [address] No Panel InformationOrdered By: Michele Arteaga on 12-27-2023 Estimated GFR (CKD-EPI) > 60.0 mL/Min [facility] Creatinine Clearance (Chem N/A [facility] Nucleated erythrocytes [Pres ence] in Blood by Automated countOrdered By: Michele Arteaga on 12-27-2023 Nucleated RBC Auto Ql (Bld) 0.1 /100{WBC} 0-0.5 [facility] Platelet mean volume [Entiti c volume] in Blood by Automated countOrdered By: Michele Arteaga on 12-27-2023 Platelet mean volume (Bld) [Entitic vol] 8.8 fL Normal 6.6-10.1 [facility] Comment on above: Performed By: #### H EPATIC, ESR, CBC, CREAT #### [address] Platelets [#/volume] in Bloo d by Automated countOrdered By: Michele Arteaga on 12-27-2023 Platelets (Bld) [#/Vol] 127 10*3/uL Low 150-450 [facility] Comment on above: Performed By: #### H EPATIC, ESR, CBC, CREAT #### [address] Protein [Mass/volume] in Ser um or PlasmaOrdered By: Michele Arteaga on 12-27-2023 Protein [Mass/Vol] 6.0 g/dL Low 6.4-8.9 [facility] Comment on above: Performed By: #### H EPATIC, ESR, CBC, CREAT #### [address] Serum globulin measurement b y calculation (mass/volume)Ordered By: Michele Arteaga on 12-27-2023 Globulin (S) [Mass/Vol] 1.5 g/dL Normal [facility] Comment on above: Performed By: #### H EPATIC, ESR, CBC, CREAT #### [address] Serum or plasma albumin/glob ulin mass ratioOrdered By: Michele Arteaga on 12-27-2023 Albumin/Globulin [Mass ratio] 3.0 {ratio} Normal [facility] Comment on above: Performed By: #### H EPATIC, ESR, CBC, CREAT #### [address] Serum or plasma non-glucuron idated bilirubin measurement (mass/volume)Ordered By: Michele Arteaga on 12-27-2023 Bilirubin.indirect [Mass/Vol] 0.5 mg/dL [facility] CT head/brain wo/w conon CT head/brain wo/w con [facility] [place] [address] [place] [address] CT Scan Report Signed Patient: Nelly Hannon MR#: [id number] 0 : 1935 Acct:[id number] Age/Sex: 88 / M ADM Date: 11/29/23 Loc: XT Room: Type: [facility] Attending Dr: Adilene Weinberg MD Copies [...] Abdoul William M.D.11/29/2023 3:10 PM Dictation Location: [place] [address] Transcribed By: [facility] 11/29/23 1510 Dictated By: Abdoul William DO 11/29/23 1506 Signed By: 11/29/23 1510 Normal [facility] ISTAT XRay CREon 11-29-2023 ISTAT GFR 53.501 Normal [facility] Comment on above: Result Comment: PERF ORMED BY: [facility] [address] [place] [address] PATHOLOGIST SENIOR BUSINESS ARCHITECT NIYA BARRERA M.D. Performed By: #### I SCRE ####[facility] [id number] No Panel InformationOrdered By: Adilene Weinberg on 11-29-2023 Bedside Estimated GFR (eGFR) 53.501 [facility] Whole blood creatinine measu rementOrdered By: Adilene Weinberg on 11-29-2023 Creatinine [Mass/Vol] 1.3 mg/dL Normal 0.6-1.3 [facility] Comment on above: ER/ESD physician is notified/shown all ISTAT results.Critical values may be confirmed by laboratory testing ifdeemed necessary by ER attending doctor. Result Comment: ER/E SD physician is notified/shown all ISTAT results. Critical values may be confirmed by laboratory testing if deemed necessary by ER attending doctor. Performed By: #### I SCRE ####[facility] [address] Capillary blood glucose kumar urement by glucometer (mass/volume)Ordered By: Elkin Holly on 11-19-2023 Glucose [Mass/Vol] 88 mg/dL Normal [facility] Comment on above: Random Glucose Refer ence Range is dependent on time and content of last meal. Glucose of more than 200 mg/dL in a nonstressed, ambulatory subject supports the diagnosis of Diabetes Mellitus. Result Comment: [facility] Glucose Reference Range is dependent on time and content of last meal. Glucose of more than 200 mg/dL in a nonstressed, ambulatory subject supports the diagnosis of Diabetes Mellitus. PERFORMED BY: [place] [address] PATHOLOGIST SENIOR BUSINESS ARCHITECT NIYA BARRERA M.D. Performed By: #### G LULS #### Point of Care testing , PET tumor init tx strat wbon 11-19-2023 PET tumor init tx strat wb [facility] [place] [address] Nuclear Medicine Report Signed Patient: Nelly Hannon MR#: [id number] 0 : 1935 Acct:[id number] Age/Sex: 88 / M ADM Date: 11/19/23 Loc: Room: Type: [facility] Attending Dr: Elkin Holly MD Copies to: [...] Silver Jr., D.OSantos11/19/2023 1:01 PM Dictation Location: [place] [address] Transcribed By: [facility] 11/19/23 1301 Dictated By: Festus Silver Jr, DO 11/19/23 1251 Signed By: 11/19/23 1301 Normal [facility] DERMPATH LAB- DERMATOPATHOLO [facility] 10-28-2023 DERMPATH LAB- DERMATOPATHOLOGY Pathology report.total SEE COMMENT Dermatopathology Case: [id number] Authorizing Provider: Elkin Holly MD Collected: 10/28/2023 1318 [place] [facility] [place]: 10/28/2023 1346 [place] Pathologist: Donna Blanchard [...] #1 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 Note: Microscopic examination reveals a lymph node. In the subparenchymal, capsular and parenchymal space there is a deposit of atypical melanocytes that is 0.75 mm in greatest diameter. No extracapsular extension is seen. All control slides stain appropriately. C. NODE, SENTINEL LYMPH NODE #2 RIGHT INTRAPAROTID: METASTATIC MALIGNANT MELANOMA 1/1 LYMPH NODE, SEE NOTE. Note: Microscopic examination [...] melanoma of forehead (CMS/HCC) C43.39 Specimen ID: [id number], [id number] Specimen Source: SKIN WIDE EXCISION Site/Location: WIDE LOCAL EXCISION RIGHT SCALP, LONG STITCH LATERAL AT 9 OCLOCK AND SHORT STITCH SUPERIOR AT 12 OCLOCK Collection Comments: Specimen ID: [id number], [id number] Specimen Source: SENTINEL LYMPH NODE OTHER Site/Location: SENTINEL LYMPH NODE #1 RIGHT INTRAPAROTID Collection Comments: Specimen ID: [id number], [id number] Specimen Source: SENTINEL LYMPH NODE OTHER Site/Location: [...] determined by the Department of Pathology at [facility]. The FDA does not require this test [...] serially sectioned an (more content not included)... 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 COMPARISON: None. ACCESSION NUMBER(S): [id number] ORDERING CLINICIAN: ELKIN HOLLY TECHNIQUE: DIVISION OF [...] localization to the right pre-auricular lymph node. Porter Baggage localizing images were sent to PACS. I personally reviewed the images/study and I agree with the findings as stated by Nuclear Medicine fellow Ruthann Lee MD. This study was interpreted at [place], [place]. MACRO: None Signed by: Michele Sweeney 10/28/2023 12:48 PM Dictation workstation: [id number] [facility] [place] Lymphatic vessels Views W radionuclide intra lymphaticon 10-28-2023 Successful sentinel lymph node localization to the right pre-auricular lymph node. Porter [employer]gage localizing images were sent to PACS. I personally reviewed the images/study and I agree with the findings as stated by Nuclear Medicine fellow Ruthann Lee MD. This study was interpreted at [place], [place]. MACRO: None Signed by: Michele Sweeney 10/28/2023 12:48 PM Dictation workstation: [id number] Interpreted By: Michele Sweeney and Maltbie Grace STUDY: NM LYMPHOSCINTIGRAM; 10/28/2023 12:24 pm INDICATION: Signs/Symptoms:lympho sentigraphy for SLNB right forehead melanoma. COMPARISON: None. ACCESSION NUMBER(S): [id number] ORDERING CLINICIAN: ELKIN HOLLY TECHNIQUE: DIVISION OF [...] right forehead melanoma. COMPARISON: None. ACCESSION NUMBER(S): [id number] ORDERING CLINICIAN: ELKIN HOLLY TECHNIQUE: DIVISION OF [...] localization to the right pre-auricular lymph node. Porter Baggage localizing images were sent to PACS. I personally reviewed the images/study and I agree with the findings as stated by Nuclear Medicine fellow Ruthann Lee MD. This study was interpreted at [place], [place]. MACRO: None Signed by: Michele Sweeney 10/28/2023 12:48 PM Dictation workstation: [id number] [facility] Work Phone: Radiology Study observation (narrative) [facility] Work Phone: [place] Lymphatic vessels Views W radionuclide intra lymphaticOrdered By: Michele Sweeney on 10-28-[address] [facility] Work Phone: [place] SPECT/CT LOCALIZATION ADD ON SINGLE DAYon 10-28-2023 NM SPECT/CT LOCALIZATION ADD ON SINGLE DAY Interpreted By: Michele Sweeney and Maltbie Grace STUDY: NM LYMPHOSCINTIGRAM; 10/28/2023 12:24 pm INDICATION: Signs/Symptoms:lympho sentigraphy for SLNB right forehead melanoma. COMPARISON: None. ACCESSION NUMBER(S): [id number] ORDERING CLINICIAN: ELKIN HOLLY TECHNIQUE: DIVISION OF [...] localization to the right pre-auricular lymph node. Porter Baggage localizing images were sent to PACS. I personally reviewed the images/study and I agree with the findings as stated by Nuclear Medicine fellow Ruthann Lee MD. This study was interpreted at [place], [place]. MACRO: None Signed by: Michele Sweeney 10/28/2023 12:48 PM Dictation workstation: [id number] Normal [facility] Office Visiton 10-26-2023 Follow-up visit [id number] HannonNelly Foy 1935 M Date Provider Department Center 10/26/2023 YULIANA JAMES [facility] Family History Problem Relation Age of Onset Other Mother Coronary artery disease Father Family Status - Relation Status Age at Mother Father Level of Service:33207 [place] OFFICE/OUTPATIENT ESTABLISHED MOD MDM 30 MIN Normal [facility] BRAF gene Sequencing Doc (Ca ncer specimen)on 09-23-2023 BRAF EXON 15 RESULTS SEE COMMENT Normal [facility] Comment on above: Order Comment: Mater ials Received: 4 slides, [facility], [id number] (BX: 08/31/23) Result Comment: Spec imen: FFPE, [id number] Estimated Tumor Content: 30% GENOMIC FINDINGS: None [...] analytical performance characteristics have been determined by [facility]. This test has not been cleared or approved by the FDA; however, the FDA has determined that such approval is not necessary. The [facility] is certified under the Clinical Laboratory Improvement Amendments of 1988 (CLIA-88) as qualified to perform high complexity testing. Performed By: #### 8 3061-2 #### DEANGELO CERVANTES ([id number]) [facility] ([facility]) [address] [place] [address] ELECTRONICALLY SIGNED BY Deangelo Cervantes MD PhD [facility] Comment on above: Order Comment: Mater ials Received: 4 slides, [facility]ermat[facility], [id number] (BX: 08/31/23) Performed By: #### 8 3061-2 #### DEANGELO NIHARIKA ([id number]) [facility] ([facility]) [address] [place] [address] Surgical pathology studyon 1 11-24-2022 Surgical pathology study Pathology report.total SEE COMMENT Dermatopathology Report Case: [id number] Authorizing Provider: Elkin Holly MD Collected: 09/23/2023 1447 Ordering Location: [facility] Received: 09/23/2023 1448 Center Pathologist: Donna Blanchard MD Specimen: OUTSIDE BLOCK(S)/SLIDE(S), 4 SLIDES, [facility], [id number] (BX: 08/31/23) Path report.final diagnosis SEE COMMENT 4 SLIDES, [facility], [id number] A & B (BX 08/31/23). A. SKIN, [...] Received for consultation from [facility] are four slides labeled [id number] (Bx: 08/31/23) along with the corresponding pathology [...] is mild, and mitoses are rare. Normal [facility] Comment on above: Order Comment: Mater ials Received: 4 slides, [facility], [id number] (BX: 08/31/23) Alanine aminotransferase [En zymatic activity/volume] in Serum or PlasmaOrdered By: Michele Arteaga on 07-19-2023 ALT [Catalytic activity/Vol] 32 U/L Normal 7-52 [facility] Comment on above: Performed By: #### E SR, CREAT, HEPATIC, CBC ####[facility] [id number] [place] [address] [facility] Albumin [Mass/volume] in Ser um or Plasma by Bromocresol green (BCG) dye binding methoOrdered By: Michele Arteaga on 07-19-2023 Albumin BCG dye [Mass/Vol] 4.1 g/dL 3.5-5.7 [facility] Alkaline phosphatase [Enzyma tic activity/volume] in Serum or PlasmaOrdered By: Michele Arteaga on 07-19-2023 ALP [Catalytic activity/Vol] 63 U/L Normal 34-104 [facility] Comment on above: Performed By: #### E SR, CREAT, HEPATIC, CBC ####[address] Aspartate aminotransferase [ Enzymatic activity/volume] in Serum or PlasmaOrdered By: Michele Arteaga on 07-19-2023 AST [Catalytic activity/Vol] 22 U/L Normal 13-39 [facility] Comment on above: Performed By: #### E SR, CREAT, HEPATIC, CBC ####[address] Automated basophil %Ordered By: Michele Arteaga on 07-19-2023 Basophils/100 WBC (Bld) 0.7 % Normal . [facility] Comment on above: Performed By: #### E SR, CREAT, HEPATIC, CBC ####[address] Automated basophil countOrde red By: Michele Arteaga on 07-19-2023 Basophils (Bld) [#/Vol] 0.0 10*3/uL Normal 0.0-0.2 [facility] Comment on above: Performed By: #### E SR, CREAT, HEPATIC, CBC ####[address] Automated blood monocyte cou ntOrdered By: Michele Arteaga on 07-19-2023 Monocytes (Bld) [#/Vol] 0.5 10*3/uL Normal 0.0-0.8 [facility] Comment on above: Performed By: #### E SR, CREAT, HEPATIC, CBC ####[address] Automated eosinophil %Ordere d By: Michele Arteaga on 07-19-2023 Eosinophils/100 WBC (Bld) 0.9 % Normal . [facility] Comment on above: Performed By: #### E SR, CREAT, HEPATIC, CBC ####[address] Automated eosinophil countOr dered By: Michele Arteaga on 07-19-2023 Eosinophils (Bld) [#/Vol] 0.0 10*3/uL Normal 0.0-0.45 [facility] Comment on above: Performed By: #### E SR, CREAT, HEPATIC, CBC ####[place] [id number] [address] Automated monocyte %Ordered By: Michele Arteaga on 07-19-2023 Monocytes/100 WBC (Bld) 11.2 % Normal . [facility] Comment on above: Performed By: #### E SR, CREAT, HEPATIC, CBC ####[place] [id number] Automated neutrophil %Ordere d By: Michele Arteaga on 07-19-2023 Neutrophils/100 WBC (Bld) 71.1 % Normal . [facility] Comment on above: Performed By: #### E SR, CREAT, HEPATIC, CBC ####[address] Bilirubin.direct [Mass/volum e] in Serum or PlasmaOrdered By: Michele Arteaga on 07-19-2023 Bilirubin.direct [Mass/Vol] 0.10 mg/dL 0.03-0.18 [facility] Bilirubin.total [Mass/volume ] in Serum or PlasmaOrdered By: Michele Arteaga on 07-19-2023 Bilirubin [Mass/Vol] 0.6 mg/dL Normal 0.3-1.0 [facility] Comment on above: Performed By: #### E SR, CREAT, HEPATIC, CBC ####[address] Complete Blood Count Auto Di ffon 07-19-2023 Mean Corpuscular HGB Conc 34.4 g/dL Normal 32.5-35.6 [facility] Comment on above: Performed By: #### E SR, CREAT, HEPATIC, CBC ####[place] [id number] NRBC% 0.2 /100{WBC} Normal 0-0.5 [facility] Comment on above: Performed By: #### E SR, CREAT, HEPATIC, CBC ####[place] [id number] [facility] Creatinineon 07-19-2023 GFR/1.73 sq M.predicted MDRD (S/P/Bld) [Vol rate/Area] mL/min/{1.73_m2} Normal [facility] Comment on above: Result Comment: PERF ORMED BY: [address] [place] [address] PATHOLOGIST SENIOR BUSINESS ARCHITECT NIYA BARRERA M.D. Performed By: #### E SR, CREAT, HEPATIC, CBC ####[place] [id number] [facility] Creatinine [Mass/volume] in Serum or PlasmaOrdered By: Michele Arteaga on 07-19-2023 Creatinine [Mass/Vol] 1.09 mg/dL Normal 0.70-1.30 [facility] Comment on above: Performed By: #### E SR, CREAT, HEPATIC, CBC ####[place] [id number] [facility] Erythrocyte Sedimentation Ra shayy 07-19-2023 ESR (Bld) [Velocity] 5 mm/h Normal 0-19 [facility] Comment on above: Result Comment: PERF ORMED BY: [address] [place] [address] PATHOLOGIST SENIOR BUSINESS ARCHITECT NIYA BARRERA M.D. Performed By: #### E SR, CREAT, HEPATIC, CBC ####[place] [id number] [facility] Erythrocyte distribution wid th [Ratio] by Automated countOrdered By: Michele Arteaga on 07-19-2023 Erythrocyte distribution width (RBC) [Ratio] 14.6 % Normal 12.0-14.8 [facility] Comment on above: Performed By: #### E SR, CREAT, HEPATIC, CBC ####[place] [id number] [facility] Erythrocyte sedimentation ra te by Photometric methodOrdered By: Michele Arteaga on 10-16-2023 ESR Photometric method (Bld) [Velocity] 5 mm/hr 0-19 [facility] Erythrocytes [#/volume] in B lood by Automated countOrdered By: Michele Arteaga on 07-19-2023 RBC (Bld) [#/Vol] 3.40 10*6/uL Low 3.90-5.60 [facility] Comment on above: Performed By: #### E SR, CREAT, HEPATIC, CBC ####[address] Hematocrit [Volume Fraction] of Blood by Automated countOrdered By: Michele Arteaga on 07-19-2023 Hematocrit (Bld) [Volume fraction] 31.9 % Low 38.8-50.0 [facility] Comment on above: Performed By: #### E SR, CREAT, HEPATIC, CBC ####[address] Hemoglobin [Mass/volume] in BloodOrdered By: Michele Arteaga on 07-19-2023 Hemoglobin (Bld) [Mass/Vol] 11.0 g/dL Low 13.0-17.0 [facility] Comment on above: Performed By: #### E SR, CREAT, HEPATIC, CBC ####[address] Hepatic Panelon 07-19-2023 Albumin [Mass/Vol] 4.1 g/dL Normal 3.5-5.7 [facility] Comment on above: Performed By: #### E SR, CREAT, HEPATIC, CBC ####[address] Bilirubin,Indirect 0.5 mg/dL Normal [facility] Comment on above: Performed By: #### E SR, CREAT, HEPATIC, CBC ####[address] Bilirubin.indirect [Mass/Vol] 0.10 mg/dL Normal 0.03-0.18 [facility] Comment on above: Performed By: #### E SR, CREAT, HEPATIC, CBC ####[address] Leukocytes [#/volume] correc bert for nucleated erythrocytes in Blood by Automated counOrdered By: Michele Arteaga on 07-19-2023 WBC corrected for nucl RBC Auto (Bld) [#/Vol] 4.2 10*3/uL 4.1-10.5 [facility] Leukocytes [#/volume] in Blo od by Automated countOrdered By: Michele Arteaga on 07-19-2023 WBC (Bld) [#/Vol] 4.2 10*3/uL Normal 4.1-10.5 [facility] Comment on above: Performed By: #### E SR, CREAT, HEPATIC, CBC ####[address] Lymphocytes [#/volume] in Bl ood by Automated countOrdered By: Michele Arteaga on 07-19-2023 Lymphocytes (Bld) [#/Vol] 0.7 10*3/uL Low 1.00-4.8 [facility] Comment on above: Performed By: #### E SR, CREAT, HEPATIC, CBC ####[address] Lymphocytes/100 leukocytes i n Blood by Automated countOrdered By: Michele Arteaga on 07-19-2023 Lymphocytes/100 WBC (Bld) 16.1 % Normal . [facility] Comment on above: Performed By: #### E SR, CREAT, HEPATIC, CBC ####[address] MCH [Entitic mass] by Automa bert countOrdered By: Michele Arteaga on 07-19-2023 MCH (RBC) [Entitic mass] 32.2 pg Normal 27.5-35.2 [facility] Comment on above: Performed By: #### E SR, CREAT, HEPATIC, CBC ####[address] MCHC Auto (RBC) [Mass/Vol]Or dered By: Michele Arteaga on 07-19-2023 MCHC (RBC) [Mass/Vol] 34.4 g/dL 32.5-35.6 [facility] MCV [Entitic volume] by Auto mated countOrdered By: Michele Arteaga on 07-19-2023 MCV (RBC) [Entitic vol] 93.7 fL Normal 83.5-101 [facility] Comment on above: Performed By: #### E SR, CREAT, HEPATIC, CBC ####[facility] [id number] Neutrophils [#/volume] in Bl ood by Automated countOrdered By: Michele Arteaga on 07-19-2023 Neutrophils (Bld) [#/Vol] 3.0 10*3/uL Normal 1.8-7.7 [facility] Comment on above: Performed By: #### E SR, CREAT, HEPATIC, CBC ####[address] No Panel InformationOrdered By: Michele Arteaga on 07-19-2023 Estimated GFR (CKD-EPI) > 60.0 mL/Min [facility] Creatinine Clearance (Chem N/A [facility] Nucleated erythrocytes [Pres ence] in Blood by Automated countOrdered By: Michele Arteaga on 07-19-2023 Nucleated RBC Auto Ql (Bld) 0.2 /100{WBC} 0-0.5 [facility] Platelet mean volume [Entiti c volume] in Blood by Automated countOrdered By: Michele Arteaga on 07-19-2023 Platelet mean volume (Bld) [Entitic vol] 8.5 fL Normal 6.6-10.1 [facility] Comment on above: Performed By: #### E SR, CREAT, HEPATIC, CBC ####[place] [id number] [facility] Platelets [#/volume] in Bloo d by Automated countOrdered By: Michele Arteaga on 07-19-2023 Platelets (Bld) [#/Vol] 123 10*3/uL Low 150-450 [facility] Comment on above: Performed By: #### E SR, CREAT, HEPATIC, CBC ####[facility] Protein [Mass/volume] in Ser um or PlasmaOrdered By: Michele Arteaga on 07-19-2023 Protein [Mass/Vol] 5.8 g/dL Low 6.4-8.9 [facility] Comment on above: Performed By: #### E SR, CREAT, HEPATIC, CBC ####[place] [id number] [address] Serum globulin measurement b y calculation (mass/volume)Ordered By: Michele Arteaga on 07-19-2023 Globulin (S) [Mass/Vol] 1.7 g/dL Normal [facility] Comment on above: Performed By: #### E SR, CREAT, HEPATIC, CBC ####[place] [id number] Serum or plasma albumin/glob ulin mass ratioOrdered By: Michele Arteaga on 07-19-2023 Albumin/Globulin [Mass ratio] 2.4 {ratio} Normal [facility] Comment on above: Performed By: #### E SR, CREAT, HEPATIC, CBC ####[place] [id number] [address] Serum or plasma non-glucuron idated bilirubin measurement (mass/volume)Ordered By: Michele Arteaga on 07-19-2023 Bilirubin.indirect [Mass/Vol] 0.5 mg/dL [facility] Ambulatory Visit Summaryon 0 05-17-2023 Ambulatory Visit Summary NELLY HANNON :1935 Visit Date:05/17/2023 Ambulatory Visit Instructions Your Diagnosis BPH with urinary obstruction History of prostate cancer Nocturia Tests Performed Urnls Dip Stick Auto w/o Microscopy POC [id number] Your Care Team Attending Physician - MOY ARRIAGA, Cristela Carbajal Primary Care Physician - STEVE DE PAZ [...] ARRIAGA, Cristela Carbajal Where: [facility] Patient Educationon 05-17-20 23 Patient Education Oncology [...] under a microscope. This is called the Lockhart score and the total score can range from 6?10, indicating how likely it is that the cancer will spread (metastasize) to other parts of the body. The higher the score, the greater the likelihood that the cancer will spread. ? Lockhart 6 or lower: This indicates that the cancer cells look similar to normal prostate cells (well differentiated). ? Lockhart 7: This indicates that the cancer cells look somewhat similar to normal prostate cells (moderately differentiated). ? Lockhart 8, 9, or 10: This indicates that [...] external be (more content not included)... Normal [facility] Reminderson 05-17-2023 Reminders - From: Linda Izquierdo To: LEEANNE Winter; Sent: 05/17/2023 16:51:39 EDT Show up: 04/16/2024 16:51:00 EDT Subject: PSA Reminder Message Please Remember to:_have pt get PSA done prior to appt. Normal [facility] Urology Office/Clinic Noteon 05-17-2023 Urology Office/Clinic [...] Follow-up With When Contact Information MOY ARRIAGA, TOM Caldwell In 1 year [facility] [address], [place] [address] [phone] Additional Instructions: PSA Patient Education Prostate Cancer [...] (COVID-19) mRNA-[id number] (more content not included)... Normal [facility] Comment on above: Result Comment: Elec tronically Signed By: Cristela WINTER MD\.br\Date and Time Signed: 05/17/23 09:46 EDT\.br\Electronically Co-Signed By: Linda Izquierdo\.br\Date and Time Co-Signed: 05/17/23 09:43 EDT Lab Reportson 05-11-2023 Lab Reports [id number] .[id number]:127 Normal [facility] Alanine aminotransferase [En zymatic activity/volume] in Serum or PlasmaOrdered By: Michele Arteaga on 03-23-2023 ALT [Catalytic activity/Vol] 23 U/L 7-52 [facility] Albumin [Mass/volume] in Ser um or Plasma by Bromocresol green (BCG) dye binding methoOrdered By: Michele Arteaga on 03-23-2023 Albumin BCG dye [Mass/Vol] 4.4 g/dL 3.5-5.7 [facility] Alkaline phosphatase [Enzyma tic activity/volume] in Serum or PlasmaOrdered By: Michele Arteaga on 03-23-2023 ALP [Catalytic activity/Vol] 88 U/L 34-104 [facility] Aspartate aminotransferase [ Enzymatic activity/volume] in Serum or PlasmaOrdered By: Michele Arteaga on 03-23-2023 AST [Catalytic activity/Vol] 20 U/L 13-39 [facility] Basophils Auto (Bld) [#/Vol] Ordered By: Michele Arteaga on 03-23-2023 Basophils (Bld) [#/Vol] 0.0 10*3/uL 0.0-0.2 [facility] Basophils/100 WBC Auto (Bld) Ordered By: Michele Arteaga on 03-23-2023 Basophils/100 WBC (Bld) 0.8 % . [facility] Bilirubin.direct [Mass/volum e] in Serum or PlasmaOrdered By: Michele Arteaga on 03-23-2023 Bilirubin.direct [Mass/Vol] 0.20 mg/dL 0.03-0.18 [facility] Bilirubin.total [Mass/volume ] in Serum or PlasmaOrdered By: Michele Arteaga on 03-23-2023 Bilirubin [Mass/Vol] 0.7 mg/dL 0.3-1.0 [facility] Creatinine [Mass/volume] in Serum or PlasmaOrdered By: Michele Arteaga on 03-23-2023 Creatinine [Mass/Vol] 1.10 mg/dL 0.70-1.30 [facility] Eosinophils Auto (Bld) [#/Vo l]Ordered By: Michele Arteaga on 03-23-2023 Eosinophils (Bld) [#/Vol] 0.1 10*3/uL 0.0-0.45 [facility] Eosinophils/100 WBC Auto (Bl d)Ordered By: Michele Arteaga on 03-23-2023 Eosinophils/100 WBC (Bld) 1.3 % . [facility] Erythrocyte distribution wid th Auto (RBC) [Ratio]Ordered By: Michele Arteaga on 03-23-2023 Erythrocyte distribution width (RBC) [Ratio] 14.8 % 12.0-14.8 [facility] Erythrocyte sedimentation ra te by Photometric methodOrdered By: Michele Arteaga on 03-23-2023 ESR Photometric method (Bld) [Velocity] 21 mm/hr 0-19 [facility] Globulin Calc (S) [Mass/Vol] Ordered By: Michele Arteaga on 03-23-2023 Globulin (S) [Mass/Vol] 1.8 g/dL [facility] Hematocrit Auto (Bld) [Volum e fraction]Ordered By: Michele Arteaga on 03-23-2023 Hematocrit (Bld) [Volume fraction] 30.1 % 38.8-50.0 [facility] Hemoglobin [Mass/volume] in BloodOrdered By: Michele Arteaga on 03-23-2023 Hemoglobin (Bld) [Mass/Vol] 10.3 g/dL 13.0-17.0 [facility] Leukocytes [#/volume] correc bert for nucleated erythrocytes in Blood by Automated counOrdered By: Michele Arteaga on 03-23-2023 WBC corrected for nucl RBC Auto (Bld) [#/Vol] 5.9 10*3/uL 4.1-10.5 [facility] Lymphocytes Auto (Bld) [#/Vo l]Ordered By: Michele Arteaga on 03-23-2023 Lymphocytes (Bld) [#/Vol] 0.7 10*3/uL 1.00-4.8 [facility] Lymphocytes/100 WBC Auto (Bl d)Ordered By: Michele Arteaga on 03-23-2023 Lymphocytes/100 WBC (Bld) 12.4 % . [facility] MCH Auto (RBC) [Entitic mass ]Ordered By: Michele Arteaga on 03-23-2023 MCH (RBC) [Entitic mass] 32.1 pg 27.5-35.2 [facility] MCHC Auto (RBC) [Mass/Vol]Or dered By: Michele Arteaga on 03-23-2023 MCHC (RBC) [Mass/Vol] 34.2 g/dL 32.5-35.6 [facility] MCV Auto (RBC) [Entitic vol] Ordered By: Michele Arteaga on 03-23-2023 MCV (RBC) [Entitic vol] 93.8 fL 83.5-101 [facility] Monocytes Auto (Bld) [#/Vol] Ordered By: Michele Arteaga on 03-23-2023 Monocytes (Bld) [#/Vol] 0.7 10*3/uL 0.0-0.8 [facility] Monocytes/100 WBC Auto (Bld) Ordered By: Michele Arteaga on 03-23-2023 Monocytes/100 WBC (Bld) 12.3 % . [facility] Neutrophils Auto (Bld) [#/Vo l]Ordered By: Michele Arteaga on 03-23-2023 Neutrophils (Bld) [#/Vol] 4.3 10*3/uL 1.8-7.7 [facility] Neutrophils/100 WBC Auto (Bl d)Ordered By: Michele Arteaga on 03-23-2023 Neutrophils/100 WBC (Bld) 73.2 % . [facility] No Panel InformationOrdered By: Michele Arteaga on 03-23-2023 Estimated GFR (CKD-EPI) > 60.0 mL/Min [facility] Creatinine Clearance (Chem N/A [facility] Nucleated erythrocytes [Pres ence] in Blood by Automated countOrdered By: Michele Arteaga on 03-23-2023 Nucleated RBC Auto Ql (Bld) 0.1 /100{WBC} 0-0.5 [facility] Platelet mean volume Auto (B ld) [Entitic vol]Ordered By: Michele Arteaga on 03-23-2023 Platelet mean volume (Bld) [Entitic vol] 8.2 fL 6.6-10.1 [facility] Platelets Auto (Bld) [#/Vol] Ordered By: Michele Arteaga on 03-23-2023 Platelets (Bld) [#/Vol] 162 10*3/uL 150-450 [facility] Protein [Mass/volume] in Ser um or PlasmaOrdered By: Michele Arteaga on 03-23-2023 Protein [Mass/Vol] 6.2 g/dL 6.4-8.9 [facility] RBC Auto (Bld) [#/Vol]Ordere d By: Michele Arteaga on 03-23-2023 RBC (Bld) [#/Vol] 3.21 10*6/uL 3.90-5.60 [facility] Serum or plasma albumin/glob ulin mass ratioOrdered By: Michele Arteaga on 03-23-2023 Albumin/Globulin [Mass ratio] 2.4 {ratio} [facility] Serum or plasma non-glucuron idated bilirubin measurement (mass/volume)Ordered By: Michele Arteaga on 03-23-2023 Bilirubin.indirect [Mass/Vol] 0.5 mg/dL [facility] WBC Auto (Bld) [#/Vol]Ordere d By: Michele Arteaga on 03-23-2023 WBC (Bld) [#/Vol] 5.9 10*3/uL 4.1-10.5 [facility] Covid-19 PCR (CVDTB)on 01-03 SARS-CoV-2 (COVID-19) RNA JOSEMANUEL+probe Ql (Unsp spec) Not detected Normal NOT DETECTED [facility] Comment on above: Result Comment: This test is not yet approved or cleared by the [place] FDA. When there are no FDA-approved or cleared tests available, and other criteria are met, FDA can make tests available under an emergency access mechanism called an Emergency Use Authorization (EUA). The EUA for this test is supported by the [place] of Health and Human Service's (HHS's) declaration [...] SARS-CoV-2. Performed By: #### C VDTB #### [facility] [address] [place] [address] Dr. Robb Martin SYMPTOMATIC COVID-19 ANTIGEN on 01-22-2023 EUA Statement SEE BELOW Normal [facility] Comment on above: Result Comment: This test [...] sooner. Performed By: #### C VDAGS #### [facility] [address] [place], [place] [address] Dr. Robb Martin SARS-CoV-2 (COVID-19) RNA JOSEMANUEL+probe Ql (Unsp spec) Negative Normal NEGATIVE [facility] Comment on above: Performed By: #### C VDAGS #### [facility] [address] [place], [place] [address] Dr. Robb Martin Albumin [Mass/volume] in Ser um or PlasmaOrdered By: Michele Arteaga on 11-19-2022 Albumin [Mass/Vol] 4.1 g/dL 3.2-5.5 [facility] Basophils Auto (Bld) [#/Vol] Ordered By: Michele Arteaga on 11-19-2022 Basophils (Bld) [#/Vol] 0.1 10*3/uL 0.0-0.2 [facility] Basophils/100 WBC Auto (Bld) Ordered By: Michele Arteaga on 11-19-2022 Basophils/100 WBC (Bld) 1.0 % . [facility] Creatinine and Glomerular fi ltration rate.predicted panel (S/P/Bld)Ordered By: Michele Arteaga on 11-19-2022 Creatinine [Mass/Vol] 1.11 mg/dL 0.64-1.27 [facility] Direct bilirubin measurement Ordered By: Michele Arteaga on 11-19-2022 Bilirubin.direct [Mass/Vol] 0.2 mg/dL 0.0-0.4 [facility] Eosinophils Auto (Bld) [#/Vo l]Ordered By: Michele Arteaga on 11-19-2022 Eosinophils (Bld) [#/Vol] 0.1 10*3/uL 0.0-0.45 [facility] Eosinophils/100 WBC Auto (Bl d)Ordered By: Michele Arteaga on 11-19-2022 Eosinophils/100 WBC (Bld) 1.6 % . [facility] Erythrocyte distribution wid th Auto (RBC) [Ratio]Ordered By: Michele Arteaga on 11-19-2022 Erythrocyte distribution width (RBC) [Ratio] 14.1 % 12.0-14.8 [facility] Erythrocyte sedimentation ra te by Photometric methodOrdered By: Michele Arteaga on 11-19-2022 ESR Photometric method (Bld) [Velocity] 14 mm/hr 0-19 [facility] Estimated glomerular filtrat ion rate (GFR) non- AmericanOrdered By: Michele Arteaga on 11-19-2022 GFR/1.73 sq M.predicted among non-blacks MDRD (S/P/Bld) [Vol rate/Area] > 60 mL/Min [facility] Globulin Calc (S) [Mass/Vol] Ordered By: Michele Arteaga on 11-19-2022 Globulin (S) [Mass/Vol] 2.1 g/dL [facility] Hematocrit Auto (Bld) [Volum e fraction]Ordered By: Michele Arteaga on 11-19-2022 Hematocrit (Bld) [Volume fraction] 34.7 % 38.8-50.0 [facility] Hemoglobin [Mass/volume] in BloodOrdered By: Michele Arteaga on 11-19-2022 Hemoglobin (Bld) [Mass/Vol] 11.4 g/dL 13.0-17.0 [facility] Leukocytes [#/volume] correc bert for nucleated erythrocytes in Blood by Automated counOrdered By: Michele Arteaga on 11-19-2022 WBC corrected for nucl RBC Auto (Bld) [#/Vol] 4.8 10*3/uL 4.1-10.5 [facility] Lymphocytes Auto (Bld) [#/Vo l]Ordered By: Michele Arteaga on 11-19-2022 Lymphocytes (Bld) [#/Vol] 0.7 10*3/uL 1.00-4.8 [facility] Lymphocytes/100 WBC Auto (Bl d)Ordered By: Michele Arteaga on 11-19-2022 Lymphocytes/100 WBC (Bld) 15.2 % . [facility] MCH Auto (RBC) [Entitic mass ]Ordered By: Michele Arteaga on 11-19-2022 MCH (RBC) [Entitic mass] 30.8 pg 27.5-35.2 [facility] MCHC Auto (RBC) [Mass/Vol]Or dered By: Michele Arteaga on 11-19-2022 MCHC (RBC) [Mass/Vol] 32.7 g/dL 32.5-35.6 [facility] MCV Auto (RBC) [Entitic vol] Ordered By: Michele Arteaga on 11-19-2022 MCV (RBC) [Entitic vol] 94.2 fL 83.5-101 [facility] Monocytes Auto (Bld) [#/Vol] Ordered By: Michele Arteaga on 11-19-2022 Monocytes (Bld) [#/Vol] 0.6 10*3/uL 0.0-0.8 [facility] Monocytes/100 WBC Auto (Bld) Ordered By: Michele Arteaga on 11-19-2022 Monocytes/100 WBC (Bld) 11.5 % . [facility] Neutrophils Auto (Bld) [#/Vo l]Ordered By: Michele Arteaga on 11-19-2022 Neutrophils (Bld) [#/Vol] 3.4 10*3/uL 1.8-7.7 [facility] Neutrophils/100 WBC Auto (Bl d)Ordered By: Michele Arteaga on 11-19-2022 Neutrophils/100 WBC (Bld) 70.7 % . [facility] No Panel InformationOrdered By: Michele Arteaga on 11-19-2022 Estimated GFR () > 60 mL/Min [facility] Comment on above: GFR estimated refere nce range: According to KDOQI guidelines, <60 ml/min/1.73m2 is sufficient to diagnose a patient with chronic kidney disease. Pharmacy Creatinine Clearance (Chem N/A [facility] Nucleated erythrocytes [Pres ence] in Blood by Automated countOrdered By: Michele Arteaga on 11-19-2022 Nucleated RBC Auto Ql (Bld) 0.0 /100{WBC} 0-0.5 [facility] Platelet mean volume Auto (B ld) [Entitic vol]Ordered By: Michele Arteaga on 11-19-2022 Platelet mean volume (Bld) [Entitic vol] 9.3 fL 6.6-10.1 [facility] Platelets Auto (Bld) [#/Vol] Ordered By: Michele Arteaga on 11-19-2022 Platelets (Bld) [#/Vol] 122 10*3/uL 150-450 [facility] Protein [Mass/volume] in Ser um or PlasmaOrdered By: Michele Arteaga on 11-19-2022 Protein [Mass/Vol] 6.2 g/dL 6.1-7.9 [facility] RBC Auto (Bld) [#/Vol]Ordere d By: Michele Arteaga on 11-19-2022 RBC (Bld) [#/Vol] 3.69 10*6/uL 3.90-5.60 [facility] Serum or plasma alanine ervin otransferase measurement without P-5'-P (enzymatic activiOrdered By: Michele Arteaga on 11-19-2022 ALT No additional P-5'-P [Catalytic activity/Vol] 33 U/L 10-60 [facility] Serum or plasma albumin/glob ulin mass ratioOrdered By: Michele Arteaga on 11-19-2022 Albumin/Globulin [Mass ratio] 2.0 {ratio} [facility] Serum or plasma alkaline daniel sphatase measurement (enzymatic activity/volume)Ordered By: Michele Arteaga on 11-19-2022 ALP [Catalytic activity/Vol] 78 U/L 32-92 [facility] Serum or plasma aspartate am inotransferase measurement (enzymatic activity/volume)Ordered By: Michele Arteaga on 11-19-2022 AST [Catalytic activity/Vol] 26 U/L 10-42 [facility] Serum or plasma non-glucuron idated bilirubin measurement (mass/volume)Ordered By: Michele Arteaga on 11-19-2022 Bilirubin.indirect [Mass/Vol] 0.4 mg/dL [facility] Serum or plasma total biliru bin measurement (mass/volume)Ordered By: Michele Arteaga on 11-19-2022 Bilirubin [Mass/Vol] 0.6 mg/dL 0.3-1.2 [facility] WBC Auto (Bld) [#/Vol]Ordere d By: Michele Arteaga on 11-19-2022 WBC (Bld) [#/Vol] 4.8 10*3/uL 4.1-10.5 [facility] CBC AUTO DIFFon 11-05-2022 BASO # 0.0 103/ul Normal 0.0-0.1 [facility] Comment on above: Performed By: #### C BC #### [facility] [address] [address] [address] Robb Martin Basophils/100 WBC (Bld) 0.7 % Normal 0.2-2.0 [facility] Comment on above: Performed By: #### C BC #### [facility] [address] [address] [address] Robb Martin EO # 0.1 103/ul Normal 0.0-0.7 [facility] Comment on above: Performed By: #### C BC #### [facility] [address] [address] [address] Robb Martin Eosinophils/100 WBC (Bld) 1.9 % Normal 0.9-7.0 [facility] Comment on above: Performed By: #### C BC #### [facility] [address] [address] [address] Robb Martin Erythrocyte distribution width (RBC) [Ratio] 13.4 % Normal 11.0-15.0 [facility] Comment on above: Performed By: #### C BC #### [facility] [address] [address] [address] Robb Martin Hematocrit (Bld) [Volume fraction] 33.3 % Critically low 42.0-54.0 [facility] Comment on above: Performed By: #### C BC #### [facility] [address] [address] [address] Robb Martin Hemoglobin (Bld) [Mass/Vol] 11.1 g/dL Critically low 14.0-18.0 [facility] Comment on above: Performed By: #### C BC #### [facility] [address] [address] [address] Robb Martin IG # 0.01 10e3/ul Normal 0.00-0.03 [facility] Comment on above: Performed By: #### C BC #### [facility] [address] [address] [address] Robb Martin IG % 0.2 % Normal 0.0-0.5 [facility] Comment on above: Performed By: #### C BC #### [facility] [address] [place] [address] Dr. Robb Martin LYMPH # 0.8 103/ul Critically low 1.2-3.8 [facility] Comment on above: Performed By: #### C BC #### [facility] [address] [place] [address] Dr. Robb Martin Lymphocytes/100 WBC (Bld) 17.6 % Critically low 20.5-60.0 [facility] Comment on above: Performed By: #### C BC #### [facility] [address] [place] [address] Dr. Robb Martin MANUAL DIFF REQ NO Normal [facility] Comment on above: Performed By: #### C BC #### [facility] [address] [place] [address] Dr. Robb Martin MCH (RBC) [Entitic mass] 30.4 pg Normal 25.9-34.0 [facility] Comment on above: Performed By: #### C BC #### [facility] [address] [place] [address] Dr. Robb Martin MCHC (RBC) [Mass/Vol] 33.3 g/dL Normal 29.9-35.2 [facility] Comment on above: Performed By: #### C BC #### [facility] [address] [place] [address] Dr. Robb Martin MCV (RBC) [Entitic vol] 91.2 fL Normal 80.0-94.0 [facility] Comment on above: Performed By: #### C BC #### [facility] [address] [place] [address] Dr. Robb Martin MONO # 0.6 103/ul Normal 0.3-0.8 [facility] Comment on above: Performed By: #### C BC #### [facility] [address] [address] [address] Robb Martin Monocytes/100 WBC (Bld) 13.9 % Critically high 1.7-12. 0 [facility] Comment on above: Performed By: #### C BC #### [facility] [address] [address] [address] Robb Martin NEUT # 2.8 103/ul Normal 1.4-6.5 [facility] Comment on above: Performed By: #### C BC #### [facility] [address] [address] [address] Robb Martin Neutrophils/100 WBC (Bld) 65.7 % Normal 43.0-75.0 [facility] Comment on above: Performed By: #### C BC #### [facility] [address] [place] [address] Dr. Robb Martin Platelet mean volume (Bld) [Entitic vol] 10.3 fL Normal 9.5-13.5 [facility] Comment on above: Performed By: #### C BC #### [facility] [address] [place] [address] Dr. Robb Martin PLT 141 103/ul Critically low 150-450 [facility] Comment on above: Performed By: #### C BC #### [facility] [address] [place] [address] Dr. Robb Martin RBC 3.65 106/ul Critically low 4.70-6.10 [facility] Comment on above: Performed By: #### C BC #### [facility] [address] [place] [address] Dr. Robb Martin WBC 4.3 103/ul Normal 4.0-11.0 [facility] Comment on above: Performed By: #### C BC #### [facility] [address] [place] [address] Dr. Robb Martin PROF CHEM 8 (BAS METB)on Anion gap [Moles/Vol] 11.3 mmol/L Normal [facility] Comment on above: Performed By: #### B MP ####[facility] [address] [address]Dr. Robb Martin Calcium [Mass/Vol] 9.2 mg/dL Normal 8.5-10.1 [facility] Comment on above: Performed By: #### B MP ####[facility] [address] [place], [place] [address]Dr. Robb Martin Chloride [Moles/Vol] 105 mmol/L Normal 98-[address] [facility] Comment on above: Performed By: #### B MP ####[facility] [address] [place], [place] [address]Dr. Robb Martin CO2 [Moles/Vol] 30.7 mmol/L Normal 21.0-32.[address] [facility] Comment on above: Performed By: #### B MP ####[facility] [address] [place], [place] [address]Dr. Robb Martin Creatinine [Mass/Vol] 1.01 mg/dL Normal 0.70-1.[address] [facility] Comment on above: Performed By: #### B MP ####[facility] [address] [place], [place] [address]Dr. Robb Martin EGFR-AF UZBEK >60 Normal >=[address] [facility] Comment on above: Performed By: #### B MP ####[facility] [address] [place], [place] [address]Dr. Robb Martin EGFR-NON AF UZBEK >60 Normal >=[address] [facility] Comment on above: Performed By: #### B MP ####[facility] [address] [place], [place] [address]Dr. Robb Martin Glucose [Mass/Vol] 103 mg/dL Normal 74-106 [facility] Comment on above: Performed By: #### B MP ####[facility] [address] [place], [place] [address]Dr. Robb Martin Potassium [Moles/Vol] 4.0 mmol/L Normal 3.5-5.[address] [facility] Comment on above: Performed By: #### B MP ####[facility] [address] [id number] Martin Sodium [Moles/Vol] 143 mmol/L Normal 136-145 [facility] Comment on above: Performed By: #### B MP ####[facility] [address] [address]DrSantos Martin Urea nitrogen [Mass/Vol] 17.0 mg/dL Normal 7.0-18.0 [facility] Comment on above: Performed By: #### B MP ####[facility] [address] [address]Dr. Robb Martin Urea nitrogen/Creatinine [Mass ratio] 16.8 mg/mg Normal [facility] Comment on above: Performed By: #### B MP ####[facility] [address] [address]DrSantos Martin CBC AUTO DIFFon 09-29-2022 BASO # 0.0 103/ul Normal 0.0-0.1 [facility] Comment on above: Performed By: #### C BC #### [facility] [address] [address] [address] Robb Martin Basophils/100 WBC (Bld) 0.6 % Normal 0.2-2.0 [facility] Comment on above: Performed By: #### C BC #### [facility] [address] [address] [address] Robb Martin EO # 0.1 103/ul Normal 0.0-0.7 [facility] Comment on above: Performed By: #### C BC #### [facility] [address] [address] [address] Robb Martin Eosinophils/100 WBC (Bld) 1.4 % Normal 0.9-7.0 [facility] Comment on above: Performed By: #### C BC #### [facility] [address] [address] [address] Robb Martin Erythrocyte distribution width (RBC) [Ratio] 13.9 % Normal 11.0-15.0 [facility] Comment on above: Performed By: #### C BC #### [facility] [address] [address] [address] Robb Martin Hematocrit (Bld) [Volume fraction] 35.4 % Critically low 42.0-54.0 [facility] Comment on above: Performed By: #### C BC #### [facility] [address] [address] [address] Robb Martin Hemoglobin (Bld) [Mass/Vol] 11.3 g/dL Critically low 14.0-18.0 [facility] Comment on above: Performed By: #### C BC #### [facility] [address] [address] [address] Robb Martin IG # 0.01 10e3/ul Normal 0.00-0.03 [facility] Comment on above: Performed By: #### C BC #### [facility] [address] [place] [address] Dr. Robb Martin IG % 0.2 % Normal 0.0-0.5 [facility] Comment on above: Performed By: #### C BC #### [facility] [address] [place] [address] Dr. Robb Martin LYMPH # 0.7 103/ul Critically low 1.2-3.8 [facility] Comment on above: Performed By: #### C BC #### [facility] [address] [place] [address] Dr. Robb Martin Lymphocytes/100 WBC (Bld) 14.4 % Critically low 20.5-60.0 [facility] Comment on above: Performed By: #### C BC #### [facility] [address] [place] [address] Dr. Robb Martin MANUAL DIFF REQ NO Normal [facility] Comment on above: Performed By: #### C BC #### [facility] [address] [place] [address] Dr. Robb Martin MCH (RBC) [Entitic mass] 31.3 pg Normal 25.9-34.0 [facility] Comment on above: Performed By: #### C BC #### [facility] [address] [place] [address] Dr. Robb Martin MCHC (RBC) [Mass/Vol] 31.9 g/dL Normal 29.9-35.2 [facility] Comment on above: Performed By: #### C BC #### [facility] [address] [address] [address] Robb Martin MCV (RBC) [Entitic vol] 98.1 fL Critically high 80.0-94 .0 [facility] Comment on above: Performed By: #### C BC #### [facility] [address] [place] [address] Dr. Robb Martin MONO # 0.6 103/ul Normal 0.3-0.8 [facility] Comment on above: Performed By: #### C BC #### [facility] [address] [place] [address] Dr. Robb Martin Monocytes/100 WBC (Bld) 11.1 % Normal 1.7-12.0 [facility] Comment on above: Performed By: #### C BC #### [facility] [address] [place] [address] Dr. Robb Martin NEUT # 3.7 103/ul Normal 1.4-6.5 [facility] Comment on above: Performed By: #### C BC #### [facility] [address] [place] [address] Dr. Robb Martin Neutrophils/100 WBC (Bld) 72.3 % Normal 43.0-75.[address] [facility] Comment on above: Performed By: #### C BC #### [facility] [address] [place] [address] Dr. Robb Martin Platelet mean volume (Bld) [Entitic vol] 10.4 fL Normal 9.5-13.5 [facility] Comment on above: Performed By: #### C BC #### [facility] [address] [place] [address] Dr. Robb Martin PLT 122 103/ul Critically low 150-450 [facility] Comment on above: Performed By: #### C BC #### [facility] [address] [place] [address] Dr. Robb Martin RBC 3.61 106/ul Critically low 4.70-6.10 [facility] Comment on above: Performed By: #### C BC #### [facility] [address] [address] [address] Robb Martin WBC 5.2 103/ul Normal 4.0-11.0 [facility] Comment on above: Performed By: #### C BC #### [facility] [address] [address] [address] Robb Martin PROF CHEM 8 (BAS METB)on Anion gap [Moles/Vol] 10.6 mmol/L Normal [facility] Comment on above: Performed By: #### B MP ####[facility] [address] [address]DrSantos Martin Calcium [Mass/Vol] 9.3 mg/dL Normal 8.5-10.1 [facility] Comment on above: Performed By: #### B MP ####[facility] [address] [address]DrSantos Martin Chloride [Moles/Vol] 103 mmol/L Normal 98-[address] [facility] Comment on above: Performed By: #### B MP ####[facility] [address] [address]DrSantos Martin CO2 [Moles/Vol] 30.2 mmol/L Normal 21.0-32.[address] [facility] Comment on above: Performed By: #### B MP ####[facility] [address] [address]DrSantos Martin Creatinine [Mass/Vol] 0.98 mg/dL Normal 0.70-1.[address] [facility] Comment on above: Performed By: #### B MP ####[facility] [address] [address]DrSantos Martin EGFR-AF UZBEK >60 Normal >=[address] [facility] Comment on above: Performed By: #### B MP ####[facility] [address] [address]Dr. Robb Martin EGFR-NON AF UZBEK >60 Normal >=[address] [facility] Comment on above: Performed By: #### B MP ####[facility] [address] [address]Dr. Robb Martin Glucose [Mass/Vol] 99 mg/dL Normal 74-106 [facility] Comment on above: Performed By: #### B MP ####[facility] [address] [address]Dr. Robb Martin Potassium [Moles/Vol] 3.8 mmol/L Normal 3.5-5.[address] [facility] Comment on above: Performed By: #### B MP ####[facility] [address] [address]Dr. Robb Martin Sodium [Moles/Vol] 140 mmol/L Normal 136-145 [facility] Comment on above: Performed By: #### B MP ####[facility] [address] [address]Dr. Robb Martin Urea nitrogen [Mass/Vol] 20.0 mg/dL Critically high 7.0-18.0 [facility] Comment on above: Performed By: #### B MP ####[facility] [address] [address]Dr. Robb Martin Urea nitrogen/Creatinine [Mass ratio] 20.4 mg/mg Normal [facility] Comment on above: Performed By: #### B MP ####[facility] [address] [address]Dr. Robb Mario Basophils Auto (Bld) [#/Vol] Ordered By: Michele Arteaga on 07-20-2022 Basophils (Bld) [#/Vol] 0.0 10*3/uL 0.0-0.2 [facility] Basophils/100 WBC Auto (Bld) Ordered By: Michele Arteaga on 07-20-2022 Basophils/100 WBC (Bld) 0.8 % . [facility] Body fluid albumin measureme nt (mass/volume)Ordered By: Michele Arteaga on 07-20-2022 Albumin (Body fld) [Mass/Vol] 3.8 g/dL 3.2-5.5 [facility] Creatinine and Glomerular fi ltration rate.predicted panel (S/P/Bld)Ordered By: Michele Arteaga on 07-20-2022 Creatinine [Mass/Vol] 1.00 mg/dL 0.64-1.27 [facility] Direct bilirubin measurement Ordered By: Michele Arteaga on 07-20-2022 Bilirubin.direct [Mass/Vol] 0.2 mg/dL 0.0-0.4 [facility] Eosinophils Auto (Bld) [#/Vo l]Ordered By: Michele Arteaga on 07-20-2022 Eosinophils (Bld) [#/Vol] 0.0 10*3/uL 0.0-0.45 [facility] Eosinophils/100 WBC Auto (Bl d)Ordered By: Michele Arteaga on 07-20-2022 Eosinophils/100 WBC (Bld) 1.0 % . [facility] Erythrocyte distribution wid th Auto (RBC) [Ratio]Ordered By: Michele Arteaga on 07-20-2022 Erythrocyte distribution width (RBC) [Ratio] 14.7 % 12.0-14.8 [facility] Erythrocyte sedimentation ra te by Photometric methodOrdered By: Michele Arteaga on 07-20-2022 ESR Photometric method (Bld) [Velocity] 13 mm/hr 0-19 [facility] Estimated glomerular filtrat ion rate (GFR) non- AmericanOrdered By: Michele Arteaga on 07-20-2022 GFR/1.73 sq M.predicted among non-blacks MDRD (S/P/Bld) [Vol rate/Area] > 60 mL/Min [facility] Globulin Calc (S) [Mass/Vol] Ordered By: Michele Arteaga on 07-20-2022 Globulin (S) [Mass/Vol] 2.1 g/dL F [facility] Hematocrit Auto (Bld) [Volum e fraction]Ordered By: Michele Arteaga on 07-20-2022 Hematocrit (Bld) [Volume fraction] 32.4 % 38.8-50.0 [facility] Hemoglobin [Mass/volume] in BloodOrdered By: Michele Arteaga on 07-20-2022 Hemoglobin (Bld) [Mass/Vol] 10.8 g/dL 13.0-17.0 [facility] - Hematology and Cell countsOrdered By: Michele Arteaga on 07-20-2022 Nucleated RBC/100 WBC (Bld) [Ratio] 0.0 % 0-0.5 [facility] Leukocytes [#/volume] in Blo od by Automated countOrdered By: Michele Arteaga on 07-20-2022 WBC (Bld) [#/Vol] 4.6 10*3/uL 4.5-11.0 [facility] Lymphocytes Auto (Bld) [#/Vo l]Ordered By: Michele Arteaga on 07-20-2022 Lymphocytes (Bld) [#/Vol] 0.6 10*3/uL 1.00-4.8 [facility] Lymphocytes/100 WBC Auto (Bl d)Ordered By: Michele Arteaga on 07-20-2022 Lymphocytes/100 WBC (Bld) 13.8 % . [facility] MCH Auto (RBC) [Entitic mass ]Ordered By: Michele Arteaga on 07-20-2022 MCH (RBC) [Entitic mass] 31.8 pg 27.5-35.2 [facility] MCHC Auto (RBC) [Mass/Vol]Or dered By: Michele Arteaga on 07-20-2022 MCHC (RBC) [Mass/Vol] 33.2 g/dL 32.5-35.6 [facility] MCV Auto (RBC) [Entitic vol] Ordered By: Michele Arteaga on 07-20-2022 MCV (RBC) [Entitic vol] 95.8 fL 83.5-101 F [facility] Monocytes Auto (Bld) [#/Vol] Ordered By: Michele Arteaga on 07-20-2022 Monocytes (Bld) [#/Vol] 0.4 10*3/uL 0.0-0.8 [facility] Monocytes/100 WBC Auto (Bld) Ordered By: Michele Arteaga on 07-20-2022 Monocytes/100 WBC (Bld) 9.1 % . [facility] Neutrophils Auto (Bld) [#/Vo l]Ordered By: Michele Arteaga on 07-20-2022 Neutrophils (Bld) [#/Vol] 3.5 10*3/uL 1.8-7.7 [facility] Neutrophils/100 WBC Auto (Bl d)Ordered By: Michele Arteaga on 07-20-2022 Neutrophils/100 WBC (Bld) 75.3 % . [facility] No Panel InformationOrdered By: Michele Arteaga on 07-20-2022 Estimated GFR () > 60 mL/Min [facility] Comment on above: GFR estimated refere nce range: According to KDOQI guidelines, <60 ml/min/1.73m2 is sufficient to diagnose a patient with chronic kidney disease. Pharmacy Creatinine Clearance (Chem N/A [facility] Platelet mean volume Auto (B ld) [Entitic vol]Ordered By: Michele Arteaga on 07-20-2022 Platelet mean volume (Bld) [Entitic vol] 8.7 fL 6.6-10.1 [facility] Platelets Auto (Bld) [#/Vol] Ordered By: Michele Arteaga on 07-20-2022 Platelets (Bld) [#/Vol] 140 10*3/uL 150-450 [facility] Protein [Mass/volume] in Ser um or PlasmaOrdered By: Michlee Arteaga on 07-20-2022 Protein [Mass/Vol] 5.9 g/dL 6.1-7.9 [facility] RBC Auto (Bld) [#/Vol]Ordere d By: Michele Arteaga on 07-20-2022 RBC (Bld) [#/Vol] 3.39 10*6/uL 3.90-5.60 [facility] Serum or plasma alanine ervin otransferase measurement without P-5'-P (enzymatic activiOrdered By: Michele Arteaga on 07-20-2022 ALT No additional P-5'-P [Catalytic activity/Vol] 29 U/L 1060 [facility] Serum or plasma albumin/glob ulin mass ratioOrdered By: Michele Arteaga on 07-20-2022 Albumin/Globulin [Mass ratio] 1.8 {ratio} [facility] Serum or plasma alkaline daniel sphatase measurement (enzymatic activity/volume)Ordered By: Michele Arteaga on 07-20-2022 ALP [Catalytic activity/Vol] 68 U/L 32-92 [facility] Serum or plasma aspartate am inotransferase measurement (enzymatic activity/volume)Ordered By: Michele Arteaga on 07-20-2022 AST [Catalytic activity/Vol] 24 U/L 10-42 [facility] Serum or plasma non-glucuron idated bilirubin measurement (mass/volume)Ordered By: Michele Arteaga on 07-20-2022 Bilirubin.indirect [Mass/Vol] 0.7 mg/dL [facility] Serum or plasma total biliru bin measurement (mass/volume)Ordered By: Michele Arteaga on 07-20-2022 Bilirubin [Mass/Vol] 0.9 mg/dL 0.3-1.2 [facility] ECHOCARDIO M/2D COMPLETEon 0 04-20-2022 ECHOCARDIO M/2D COMPLETE Patient: NELLY HANNON Exam Date: 04/20/2022 : 1935 Gender:M Ordering : FILIPPO JUDGE Admission #: [id number] Family : DR STEVE DE PAZ D.O. Order #: [id number] CLICK HERE TO VIEW EXAM ECHOCARDIOGRAM REPORT [...] Kate M.D. on 04/20/2022 at 17:06 Normal [facility] XR clavicle RT*on 11-03-2021 XR clavicle RT* [facility] [employer] Other XR clavicle RT* [facility] [employer] Other XR clavicle RT* [address] [facility] No rt [employer] Other XR clavicle RT* [place] [address] [address] [facility] [employer] Other XR clavicle RT* XRay Report [employer] [facility] [employer] Other XR clavicle RT* Signed [employer] Other XR clavicle RT* Patient: Nelly Hannon MR#: [id number] [place] [employer] Other XR clavicle RT* 0 [employer] Other XR clavicle RT* : 1935 Acct:[id number] [employer] Other XR clavicle RT* Age/Sex: 86 / M ADM Date: 11/03/21 [employer] Other XR clavicle RT* Loc: [facility] [employer] [facility] [employer] Other XR clavicle RT* Attending Dr: Vihn Lawton DO [employer] Other XR clavicle RT* Ordering Provider: Vinh Lawton, [employer] Other XR clavicle RT* Date of Service: 11/03/21 [place] [employer] Other XR clavicle RT* XR/XR clavicle RT*: Displaced fracture of lateral end of right clavicle, [employer] Other XR clavicle RT* subsequ [facility] [employer] Other XR clavicle RT* Copies to: Vinh Lawton, [place] [employer] Other XR clavicle RT* 2 views RIGHT clavicle [place] [employer] Other XR clavicle RT* COMPARISON: 10/06/21 [employer] Other XR clavicle RT* HISTORY: Status post RIGHT clavicle fracture [employer] Other XR clavicle RT* There is redemonstration of the distal clavicle fracture. There is subtle callus formation [place] [employer] Other XR clavicle RT* suggesting interval healing. Bony alignment is unchanged. [employer] Other XR clavicle RT* XR/XR clavicle RT* [employer] Other XR clavicle RT* IMPRESSION: Healing distal RIGHT clavicle fracture. Unchanged bony alignment. [employer] Other XR clavicle RT* Impression dictated by: Abdoul William M.D.11/03/2021 4:06 PM [employer] Other XR clavicle RT* Dictation Location: [address] [employer] Other XR clavicle RT* Transcribed By: PHYLLIS 11/03/21 5404 [employer] Other XR clavicle RT* Dictated By: Abdoul William DO 11/03/21 2588 [facility] Other XR clavicle RT* Signed By: [employer] [facility] [employer] Other XR clavicle RT* 11/03/21 [id number] [facility] Other Cardiovascular Lab Reporton 08-25-2021 Cardiovascular Lab Report [facility] Patient Name: Nelly Hannon [facility] MR #: [id number] Physician: Filippo Judge MD Department of Service Date: 08/25/2021 Medicine Birthdate: 1935 Division of Room #: [facility] Cardiology Adult Cardiovascular Services [address] [place] [address] Cardiovascular Laboratory Report BIV-UPGRADE PROCEDURE NOTE DATE [...] occasions using seldinger technique using a 5 Yi micropunture needle. There was difficulty guiding the [...] to perform the LV lead placement. A Alvord sheath was advanced into the RV over [...] lead were then attached to a [employer] CONSERVATION EDUCATOR-D device and the leads tug tested. Pocket hemostasis was achieved, and it was then copiously and vigorously irrigated with antiobiotic so (more content not included)... Normal [facility] Vital Signs Date Time Vital Sign Value Performing Clinician Facility 04-25-2024 09:24040 Body height 177.8 cm DO MESoft Work Phone: [facility] 04-25-2024 09:24040 Body mass index (BMI) [Ratio] 23.5 kg/m2 DO [employer] Work Phone: [facility] 04-25-2024 09:24040 Body weight 74.38 kg DO Steve Swagapalooza Work Phone: [facility] 04-25-2024 09:24-0400 Diastolic blood pressure 73 mm[Hg] DO Steve Swagapalooza Work Phone: [facility] 04-25-2024 09:24-0400 Heart rate 72 /min DO Steve Ball Work Phone: [facility] 04-25-2024 09:24-0400 Respiratory rate 12 /min DO Steve Ball Work Phone: [facility] 04-25-2024 09:24-0400 Systolic blood pressure 152 mm[Hg] DO Steve Swagapalooza Work Phone: [facility] 03-16-2024 11:22-0400 Body height 177.8 cm DO Steve Swagapalooza Work Phone: [facility] 03-16-2024 11:22-0400 Body mass index (BMI) [Ratio] 23.9 kg/m2 DO Steve Ball Work Phone: [facility] 03-16-2024 11:[id number] Body temperature 97.2 [degF] DO Steve Ball Work Phone: [facility] 03-16-2024 11:22-0400 Body weight 75.74 kg DO Steve Ball Work Phone: [facility] 03-16-2024 11:22-0400 Diastolic blood pressure 70 mm[Hg] DO Steve Ball Work Phone: [facility] 03-16-2024 11:22-0400 Heart rate 98 /min DO Steve Ball Work Phone: [facility] 03-16-2024 11:[id number] Respiratory rate 16 /min DO Steve Ball Work Phone: [facility] 03-16-2024 11:220400 SaO2% (BldA) [Mass fraction] 97 % DO Steve Ball Work Phone: [facility] 03-16-2024 11:22-0400 Systolic blood pressure 154 mm[Hg] DO Steve Ball Work Phone: [facility] 01-19-2024 08:29-0400 Body height 177.8 cm DO Steve Ball Work Phone: [facility] 01-19-2024 08:29-0400 Body mass index (BMI) [Ratio] 23.1 kg/m2 DO Steve Ball Work Phone: [facility] 01-19-2024 08:290400 Body weight 73.25 kg DO Steve Ball Work Phone: [facility] 01-19-2024 08:29-0400 Diastolic blood pressure 71 mm[Hg] DO Steve Ball Work Phone: [facility] 01-19-2024 08:29-0400 Heart rate 71 /min DO Steve Ball Work Phone: [facility] 01-19-2024 08:29-0400 Respiratory rate 12 /min DO Steve Ball Work Phone: [facility] 01-19-2024 08:29-0400 Systolic blood pressure 136 mm[Hg] DO Steve Ball Work Phone: [facility] 01-17-2024 15:05-0400 Body height 177.8 cm Elkin Holly MD Work Phone: [facility] 01-17-2024 15:05-0400 Body mass index (BMI) [Ratio] 22.93 kg/m2 Elkin Holly MD Work Phone: [facility] 01-17-2024 15:05-0400 Body temperature 97.7 [degF] Elkin Holly MD Work Phone: [facility] 01-17-2024 15:05-0400 Body weight 72.48 kg Elkin Holly MD Work Phone: [facility] 01-17-2024 15:05-0400 Diastolic blood pressure 69 mm[Hg] Elkin Holly MD Work Phone: [facility] 01-17-2024 15:05-0400 Systolic blood pressure 135 mm[Hg] Elkin Holly MD Work Phone: [facility] 12-17-2023 11:37-0400 Body temperature 97.2 [degF] DO Steve Ball Work Phone: [facility] 12-17-2023 11:37-0400 Body weight 78.47 kg DO Steve Ball Work Phone: [facility] 12-17-2023 11:37-0400 Diastolic blood pressure 69 mm[Hg] DO Steve Ball Work Phone: [facility] 12-17-2023 11:37-0400 Heart rate 66 /min DO Steve Ball Work Phone: [facility] 12-17-2023 11:37-0400 Respiratory rate 16 /min DO Steve Ball Work Phone: [facility] 12-17-2023 11:37-0400 SaO2% (BldA) [Mass fraction] 97 % DO Steve Ball Work Phone: [facility] 12-17-2023 11:37-0400 Systolic blood pressure 170 mm[Hg] DO Steve Ball Work Phone: [facility] 11-24-2023 08:24-0500 Body height 177.8 cm DO Steve Ball Work Phone: [facility] 11-24-2023 08:24-0500 Body mass index (BMI) [Ratio] 24.7 kg/m2 DO Steve Ball Work Phone: [facility] 11-24-2023 08:24-0500 Body temperature 97 [degF] DO Steve Ball Work Phone: [facility] 11-24-2023 08:24-0500 Body weight 78.01 kg DO Steve Ball Work Phone: [facility] 11-24-2023 08:24-0500 Diastolic blood pressure 56 mm[Hg] DO Steve Ball Work Phone: [facility] 11-24-2023 08:24-0500 Heart rate 60 /min DO Steve Ball Work Phone: [facility] 11-24-2023 08:24-0500 Respiratory rate 16 /min DO Steve Ball Work Phone: [facility] 11-24-2023 08:24-0500 SaO2% (BldA) [Mass fraction] 97 % DO Steve Ball Work Phone: [facility] 11-24-2023 08:24-0500 Systolic blood pressure 125 mm[Hg] DO Steve Ball Work Phone: [facility] 11-19-2023 10:43-0500 Body height 177.8 cm DO Steve Ball Work Phone: [facility] 11-19-2023 10:43-0500 Body weight 77.11 kg DO Steve Ball Work Phone: [facility] 11-08-2023 14:46-0500 Body height 177.8 cm Elkin Holly MD Work Phone: [facility] 11-08-2023 14:46-0500 Body mass index (BMI) [Ratio] 24.54 kg/m2 Elkin Holly MD Work Phone: [facility] 11-08-2023 14:46-0500 Body temperature 97.5 [degF] Elkin Holly MD Work Phone: [facility] 11-08-2023 14:46-0500 Body weight 77.56 kg Elkin Holly MD Work Phone: [facility] 11-08-2023 14:46-0500 Diastolic blood pressure 68 mm[Hg] Elkin Holly MD Work Phone: [facility] 11-08-2023 14:46-0500 Systolic blood pressure 155 mm[Hg] Elkin Holly MD Work Phone: [facility] 10-28-2023 18:15-0500 Diastolic blood pressure 76 mm[Hg] Elkin Holly MD Work Phone: [facility] 10-28-2023 18:15-0500 Heart rate 60 /min Elkin Holly MD Work Phone: [facility] 10-28-2023 18:15-0500 Respiratory rate 12 /min Elkin Holly MD Work Phone: [facility] 10-28-2023 18:15-0500 SaO2% (BldA) [Mass fraction] 100 % Elkin Holly MD Work Phone: [facility] 10-28-2023 18:15-0500 Systolic blood pressure 166 mm[Hg] Elkin Holly MD Work Phone: [facility] 10-28-2023 17:00-0500 Body temperature 96.8 [degF] Elkin Holly MD Work Phone: [facility] 10-28-2023 12:33-0500 Body height 177.8 cm Elkin Holly MD Work Phone: [facility] 10-28-2023 12:33-0500 Body mass index (BMI) [Ratio] 24.39 kg/m2 Elkin Holly MD Work Phone: [facility] 10-28-2023 12:33-0500 Body weight 77.11 kg Elkin Holly MD Work Phone: [facility] 10-19-2023 10:00-0500 Body height 157.48 cm Steve Ball Other [facility] 10-19-2023 10:00-0500 Body mass index (BMI) [Ratio] 31.09 kg/m2 Steve Ball Other [facility] [employer] Other 10-19-2023 10:00-0500 Body weight 77.11 kg Steve Ball Other [facility] 10-19-2023 10:00-0500 Diastolic blood pressure 80 mm[Hg] Steve Ball Other [facility] 10-19-2023 10:00-0500 Respiratory rate 12 /min Steve Ball Other [facility] [employer] Other 10-19-2023 10:00-0500 Systolic blood pressure 138 mm[Hg] Steve Ball Other [facility] 10-08-2023 09:27-0500 Body height 179.1 cm Elkin Holly MD Work Phone: [facility] 10-08-2023 09:27-0500 Body mass index (BMI) [Ratio] 24.15 kg/m2 Elkin Holly MD Work Phone: [facility] 10-08-2023 09:27-0500 Body weight 77.43 kg Elkin Holly MD Work Phone: [facility] 07-05-2023 11:00-0400 Body height 157.48 cm Steve Ball Other [facility] Other 07-05-2023 11:00-0400 Body mass index (BMI) [Ratio] 30.5 kg/m2 Steve Ball Other [facility] Other 07-05-2023 11:00-0400 Body weight 75.66 kg Steve Ball Other [employer] Other 07-05-2023 11:00-0400 Diastolic blood pressure 68 mm[Hg] Steve Ball Other [facility] Other 07-05-2023 11:00-0400 Respiratory rate 12 /min Steve Ball Other [facility] Other 07-05-2023 11:00-0400 Systolic blood pressure 148 mm[Hg] Steve Ball Other [facility] Other 05-17-2023 08:48-0400 Blood Pressure Location Cristela WINTER [facility] 05-17-2023 08:48-0400 Diastolic blood pressure 69 mm[Hg] Cristela WINTER [facility] 05-17-2023 08:48-0400 Heart rate 65 /min Cristela WINTER [facility] 05-17-2023 08:48-0400 Respiratory rate 16 /min Cristela WINTER [facility] 05-17-2023 08:48-0400 Systolic blood pressure 106 mm[Hg] Cristela WINTER [facility] 04-30-2023 11:30-0400 Body height 157.48 cm Steve Ball Other [employer] Other 04-30-2023 11:30-0400 Body mass index (BMI) [Ratio] 31.16 kg/m2 Steve Ball Other [facility] Other 04-30-2023 11:30-0400 Body weight 77.29 kg Steve Ball Other [employer] Other 04-30-2023 11:30-0400 Diastolic blood pressure 66 mm[Hg] Steve Ball Other [employer] Other 04-30-2023 11:30-0400 Respiratory rate 12 /min Steve Ball Other [employer] Other 04-30-2023 11:30-0400 Systolic blood pressure 132 mm[Hg] Steve Ball Other [employer] Other 01-06-2023 11:30-0400 Body height 157.48 cm Steve Ball Other [employer] Other 01-06-2023 11:30-0400 Body mass index (BMI) [Ratio] 31.46 kg/m2 Steve Ball Other [facility] Other 01-06-2023 11:30-0400 Body weight 78.02 kg Steve Ball Other [employer] Other 01-06-2023 11:30-0400 Diastolic blood pressure 73 mm[Hg] Steve Ball Other [employer] Other 01-06-2023 11:30-0400 SaO2% (BldA) [Mass fraction] 96 % Steve De Paz Other [facility] Other 01-06-2023 11:30-0400 Systolic blood pressure 130 mm[Hg] Steve De Paz Other [facility] Other 05-04-2022 12:33-0400 Blood Pressure Location Cristela WINTER [facility] 05-04-2022 12:33-0400 Diastolic blood pressure 69 mm[Hg] Cristela WINTER [facility] 05-04-2022 12:33-0400 Heart rate 68 /min Cristela WINTER [facility] 05-04-2022 12:33-0400 Respiratory rate 16 /min Cristela WINTER [facility] 05-04-2022 12:33-0400 Systolic blood pressure 134 mm[Hg] Cristela WINTER [facility] 11-03-2021 16:00-0500 Body height 157.48 cm Vinh Lawton Other [facility] Other 11-03-2021 16:00-0500 Body mass index (BMI) [Ratio] 25.79 kg/m2 Vinh Lawton Other [facility] Other 11-03-2021 16:00-0500 Body weight 63.96 kg Vinh Lawton Other [facility] Other Encounters Encounter Date Encounter Type Care Provider Facility Start: 05-22-2024 ambulatory Cristela Seo ty:LEEANNE Landis Start: 05-02-2024 ambulatory [facility] Start: 05-02-2024 End: 05-02-2024 ambulatory KAYLEY LINDACKER [facility] Start: 05-01-2024 End: 05-01-2024 Patient encounter procedure Caryl Ley MD Work Phone: Ophthalmology Comment on above: 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); Myogenic ptosis of bilateral eyelids Start: 04-25-2024 End: 04-25-2024 ambulatory DO Steve De Paz Work Phone: [facility] Work Phone: Start: 04-25-2024 End: 04-25-2024 Patient encounter procedure DO Steve De Paz Work Phone: [facility] Work Phone: Start: 04-20-2024 End: 04-20-2024 [facility] Start: 04-20-2024 Non-patient / Non-visit DO Alexi ana De Paz Work Phone: [facility] Work Phone: Start: 03-31-2024 ambulatory [facility] Start: 03-16-2024 End: 03-16-2024 ambulatory DO Steve De Paz Work Phone: [facility] Work Phone: Start: 03-16-2024 End: 03-16-2024 Patient encounter procedure DO Steve De Paz Work Phone: [facility] Work Phone: Start: 03-16-2024 Encounter for preprocedural cardiovascular examination [facility] Start: 03-16-2024 Registered Recurring DO Benjnixon in Ball Work Phone: [facility] Work Phone: Start: 03-16-2024 ambulatory Steve De Paz Facility: [facility] Start: 02-16-2024 End: 02-16-2024 ambulatory DEBBIE GORDON Not Available Start: 01-19-2024 End: 01-19-2024 ambulatory DO Steve De Paz Work Phone: [facility] Work Phone: Start: 01-19-2024 End: 01-19-2024 Patient encounter procedure DO Steve De Paz Work Phone: [facility] Work Phone: Start: 01-17-2024 End: 01-17-2024 ambulatory DEBBIE Mai [facility] Start: 01-17-2024 End: 01-17-2024 Initial inpatient consult new/estab pt 55 min Debbie Bobby MD Work Phone: [facility] Comment on above: Brow ptosis, right ( Primary Dx); Dermatochalasis of right upper eyelid Start: 01-17-2024 End: 01-17-2024 Office outpatient visit 15 minutes Elkin Holly MD Work Phone: [facility] Comment on above: 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) Start: 12-27-2023 End: 12-27-2023 Patient encounter procedure DO Steve De Paz Work Phone: [facility] [address] Work Phone: Start: 12-27-2023 End: 12-27-2023 ambulatory DO Steve De Paz Work Phone: [facility] Work Phone: Start: 12-17-2023 End: 12-17-2023 ambulatory DO Steve De Paz Work Phone: [facility] Work Phone: Start: 12-17-2023 End: 12-17-2023 Patient encounter procedure DO Steve Ball Work Phone: [facility] Work Phone: Start: 12-17-2023 Registered Recurring DO Benjam in [place] Work Phone: [facility] Work Phone: Start: 12-10-2023 End: 12-10-2023 Patient encounter procedure DO Steve Ball Work Phone: [facility] Work Phone: Start: 11-24-2023 Registered Recurring DO Benjam in Ball Work Phone: [facility] Work Phone: Start: 11-24-2023 End: 11-24-2023 ambulatory DO Steve Ball Work Phone: [facility] Work Phone: Start: 11-24-2023 End: 11-24-2023 Patient encounter procedure DO Steve Ball Work Phone: [facility] Work Phone: Start: 11-19-2023 End: 11-19-2023 Patient encounter procedure DO Steve Ball Work Phone: [facility] Work Phone: Start: 11-19-2023 End: 11-19-2023 ambulatory DO Steve Ball Work Phone: [facility] Work Phone: Start: 11-08-2023 End: 11-08-2023 ambulatory ELKIN Shana [facility] Start: 11-08-2023 End: 11-08-2023 Postop follow up visit related to original px Elkin Holly MD Work Phone: [facility] Comment on above: Malignant melanoma o f forehead (CMS/HCC) Start: 10-28-2023 End: 10-28-2023 Subsequent hospital visit by physician Elkin Holly MD Work Phone: [facility] Comment on above: 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); Post-op pain Start: 10-28-2023 End: 10-28-[address] [facility] Start: 10-28-2023 End: 10-28-2023 Subsequent hospital visit by physician Shasha Nm 2 [facility] Comment on above: Malignant melanoma o f forehead (CMS/HCC) Start: 10-26-2023 End: 10-26-2023 ambulatory [facility] Start: 10-19-2023 End: 10-19-2023 ambulatory Steve De Paz Other [facility] Other Start: 10-19-2023 Encounter for other preprocedural examination Steve De Paz [facility] Start: 10-19-2023 Office outpatient vi sit 25 minutes Steve Zandra [facility] Start: 10-19-2023 End: 10-19-2023 Patient encounter procedure DO Steve Ball Work Phone: [facility] Work Phone: Start: 10-08-2023 End: 10-08-2023 ambulatory [facility] Start: 10-08-2023 End: 10-08-2023 Office outpatient new 45 minutes Elkin Holly MD Work Phone: [facility] Comment on above: Malignant melanoma o f forehead (CMS/HCC) Start: 07-19-2023 End: 07-19-2023 Patient encounter procedure DO Steve Ball Work Phone: [facility] [address] Work Phone: Start: 07-19-2023 End: 07-19-2023 ambulatory DO Steve Ball Work Phone: [facility] Work Phone: Start: 07-13-2023 End: 07-13-2023 ambulatory Steve De Paz Other [facility] Other Start: 07-13-2023 Telephone encounter Steve De Paz [facility] Start: 07-05-2023 End: 07-05-2023 ambulatory Steve De Paz Other [facility] Other Start: 07-05-2023 Patient encounter procedure Steve De Paz [facility] Start: 05-31-2023 End: 05-31-2023 ambulatory Steve De Paz Other [facility] Other Start: 05-31-2023 Nursing evaluation o f patient and report Steve De Paz [facility] Start: 05-17-2023 End: 05-18-2023 ambulatory Cristela WINTER Facility:[facility] Start: 05-17-2023 End: 05-17-2023 Patient encounter procedure Cristela WINTER [facility] Start: 04-30-2023 End: 04-30-2023 ambulatory Steve De Paz Other [facility] Other Start: 04-30-2023 Office outpatient vi sit 15 minutes Steve De Paz [facility] Start: 03-30-2023 End: 03-30-2023 ambulatory DO tSeve De Paz Work Phone: [facility] Work Phone: Start: 03-30-2023 End: 03-30-2023 Departed Referred DO Steve Ball Work Phone: [facility] Work Phone: Start: 03-23-2023 End: 03-23-2023 ambulatory DO Steve Ball Work Phone: [facility] Work Phone: Start: 03-23-2023 End: 03-23-2023 Patient encounter procedure DO Steve Ball Work Phone: [facility] [address] Work Phone: Start: 02-01-2023 End: 03-03-2023 ambulatory SHAIKH Stephon DOMINGUEZSARAH Facility:[facility] Start: 01-22-2023 Office outpatient vi sit 15 minutes Steve De Paz [facility] Start: 01-22-2023 End: 01-22-[address] STEVE DE PAZ [facility] Other Start: 01-21-2023 End: 01-21-2023 ambulatory Steve De Paz Other [facility] Other Start: 01-21-2023 Telephone encounter Steve De Paz [facility] Start: 01-06-2023 End: 01-06-2023 ambulatory Steve De Paz Other [facility] Other Start: 01-06-2023 Office outpatient vi sit 25 minutes Steve De Paz [facility] Start: 01-04-2023 End: 01-29-[address] STEVE DE PAZ Facility:[facility] Start: 12-28-2022 End: 12-28-2022 ambulatory Steve De Paz Other [facility] Other Start: 12-28-2022 Telephone encounter Steve DODGE [facility] Start: 12-02-2022 End: 01-01-[address] STEVE DE PAZ Facility:[facility] Start: 11-19-2022 End: 11-19-2022 ambulatory DO Steve De Paz Work Phone: [facility] Work Phone: Start: 11-19-2022 End: 11-19-2022 Patient encounter procedure DO Steve De Paz Work Phone: [facility] [address] Work Phone: Start: 11-05-2022 End: 11-06-2022 ambulatory FILIPPO JUDGE [facility] Other Start: 11-05-2022 Telephone encounter Steve DODGE [facility] Start: 11-04-2022 End: 12-02-[address] STEVE DE PAZ Facility:[facility] Start: 10-05-2022 End: 11-04-[address] STEVE DE PAZ Facility:[facility] Start: 10-02-2022 Encounter for preprocedural cardiovascular examination FILIPPO JUDGE [facility] Start: 09-29-2022 End: 09-30-2022 ambulatory FILIPPO NU Facility:[facility] Start: 09-29-2022 End: 09-30-2022 Encounter for preprocedural cardiovascular examination FILIPPO JUDGE Facility:[facility] Start: 09-03-2022 End: 10-04-[address] STEVE DE PAZ Facility:[facility] Start: 08-05-2022 End: 08-06-[address] STEVE DE PAZ Facility:[facility] Start: 2022 End: 09-02-[address] STEVE DE PAZ Facility:[facility] Start: 07-20-2022 End: 07-20-2022 ambulatory DO Steve De Paz Work Phone: [facility] Work Phone: Start: 07-20-2022 End: 07-20-2022 Patient encounter procedure DO Steve De Paz Work Phone: [facility] [address] Start: 07-06-2022 End: 08-03-2022 ambulatory SHAIKH Stephon LUO Facility:[facility] Start: 06-04-2022 End: 07-04-2022 ambulatory SHAIKH Stephon LUO Facility:[facility] Start: 05-07-2022 End: 05-07-2022 ambulatory DEBBIE GORDON Facility:[facility] Start: 05-04-2022 End: 05-04-2022 Patient encounter procedure Cristela WINTER [facility] Start: 05-04-2022 End: 06-03-2022 ambulatory SHAIKH Stephon LUO Facility:[facility] Start: 04-20-2022 End: 04-21-2022 ambulatory FILIPPO JUDGE Facility:[facility] Start: 04-16-2022 Adult health examination Cezar De Paz Other [facility] Other Start: 04-16-2022 End: 04-16-2022 ambulatory DEBBIE GORDON Facility:[facility] Start: 04-07-2022 End: 04-08-[address] CRISTELA Graham Facility:[facility] Start: 04-03-2022 End: 05-01-2022 ambulatory SHAIKH Stephon LUO Facility: Start: 11-03-2021 End: 11-03-2021 ambulatory Vinh Lawton Other [facility] Other Start: 11-03-2021 Postop follow up vis it related to original px Vinh Lawton [facility] Start: 10-10-2021 End: 10-10-2021 ambulatory Vinh Lawton Other [facility] Other Start: 10-10-2021 FQHC visit new patient Vinh Lawton [facility] Start: 06-20-2021 End: 08-03-2021 ambulatory STEVE DE PAZ Facility:[facility] Start: 04-07-2019 Notes/Results Only Other Other NOTE S/RESULTS Start: 04-07-2019 End: 04-07-2019 Patient encounter procedure Other Other [facility] Start: 03-15-2019 Notes/Results Only Other Other NOTE S/RESULTS Start: 03-15-2019 End: 03-15-2019 Patient encounter procedure Other Other [facility] Start: 03-02-2019 Notes/Results Only Other Other NOTE S/RESULTS Start: 03-02-2019 End: 03-02-2019 Patient encounter procedure Other Other [facility] Start: 02-24-2019 Notes/Results Only Other Other NOTE S/RESULTS Start: 02-24-2019 End: 02-24-2019 Patient encounter procedure Other Other [facility] Start: 02-08-2019 Notes/Results Only Other Other NOTE S/RESULTS Start: 02-08-2019 End: 02-08-2019 Patient encounter procedure Other Other [facility] Start: 12-16-2018 Notes/Results Only Other Other NOTE S/RESULTS Start: 12-16-2018 End: 12-16-2018 Patient encounter procedure Other Other [facility] Start: 09-29-2018 Notes/Results Only Other Other NOTE S/RESULTS Start: 09-29-2018 End: 09-29-2018 Patient encounter procedure Other Other [facility] Procedures Date Procedure Procedure Detail Performing Clinician Start: 03-14-2024 Ultrasonography of limb DO Steve De Paz Work Phone: Start: 11-29-2023 CT of head with contrast DO Steve De Paz Work Phone: Start: 11-19-2023 Positron emission to mography with computed tomography DO Steve De Paz Work Phone: Start: 10-28-2023 DERMPATH LAB- DERMATOPATHOLOGY ELKIN WEISSRASHMI Start: 10-28-2023 NM SPECT/CT LOCALIZA TION ADD ON SINGLE DAY ELKIN ABHISHEKRASHMI Start: 10-28-2023 NM LYMPHOSCINTIGRAM RAMAN ON Start: 10-28-2023 DISCHARGE PATIENT ELKIN WEISSRASHMI Start: 10-28-2023 Lymphatics & lymph n odes imaging Elkin Holly MD Work Phone: Start: 04-07-[address] YEIMI WINTER . Comment on above: Performed By: #### P SAD #### [facility] [address] [place] [address] Dr. Robb Martin Start: 04-07-2019 Electrocardiogram Other [...] 05-04-2012 Implantation of card iac pacemaker Cristela WINTER Start: 10-09-2008 Brachytherapy Cristela CARO Start: 08-08-2008 Transrectal biopsy o f prostate using ultrasound guidance Cristela WINTER Start: 11-22-2007 Laser ablation of prostate Cristela WINTER Start: 10-25-2007 Cystoscopy Cristela ZUNIGA Start: 10-25-2007 Urodynamic studies Rosendar michelle WINTER Start: 09-20-2007 Transrectal biopsy o f prostate using ultrasound guidance Cristela WINTER Coronary artery bypa ss grafts x 4 Cristela WINTER Extraction of cataract Marivel WINTER Procedure on back Cristela GASTON LIZLoi Plan of Treatment Date Care Activity Detail Author Start: 03-14-2027 Diabetes Screening Diabetes Screenin g [facility] Start: 07-24-2024 End: 07-24-2024 Patient encounter procedure 07/24/2024 3:30 PM EDT Office Visit [address] Garcia [address] [place] [address] [place] [address] [address] [place] [address] [facility] Start: 06-04-2024 Influenza vaccination Influenza Vacc ine (#1) [facility] Start: 01-17-2024 End: 01-17-2024 Patient encounter procedure 01/17/2024 3:30 PM EDT Office Visit [address] Garcia [address] [place] [address] [place] [address] [address] [place] [address] [facility] Start: 11-08-2023 End: 11-08-2024 PT Unspecified body region NM PET CT melanoma restaging Imaging Routine Malignant melanoma of forehead (CMS/HCC) Expected: 11/08/2023, Expires: 11/08/2024 [facility] Service Area Work Phone: Comment on above: Expected: 11/08/2023 , Expires: 11/08/2024 Start: 10-28-2023 End: 10-28-2023 Admission to same day surgery center 10/28/2023 11:00 AM EST - 10/28/2023 2:35 PM EST [place] [facility] [place] [id number] [place] [phone] [place] [address] [address] [place] [address] ( sln inj @ 7:00 am ) Excision Lesion Skin Head/Neck [49663 (CPT )] [facility] [place] Comment on above: ( sln inj @ 7:00 am ) Excision Lesion Skin Head/Neck [[id number] (CPT )] Start: 10-28-2023 End: 10-28-2023 Ct [...] physician 10/28/2023 9:30 AM EST Hospital Encounter [facility] [place] [id number] [place] [phone] [place] [address] [address] [place] [address] [facility] [place] Start: 10-28-2023 End: 10-28-2023 Patient encounter procedure 10/28/2023 7:00 AM EST [place]ointment [facility] [place] [address] [place] [phone] [facility] [place]: 10-08-2023 End: 10-08-2024 NM Lymphatic vessels Views W radionuclide intra lymphatic NM lymphoscintigram Imaging Routine Malignant melanoma of forehead (CMS/HCC) Expected: 10/08/2023, Expires: 10/08/[address] [facility] Work Phone: Comment on above: Expected: 10/08/2023 , Expires: 10/08/2024 Start: 10-08-2023 End: 10-08-2024 Request for Pre-Admission Testing Visit Request for Pre-Admission Testing Visit Procedures Routine Malignant melanoma of forehead (CMS/HCC) Expected: 10/08/2023 (Approximate), Expires: 10/08/2024 [facility] Service Area Work Phone: Comment on above: Expected: 10/08/2023 (Approximate), Expires: 10/08/2024 Start: 10-04-2023 Advance Directive Discussion Advance Directive Discussion [facility] Start: 06-04-2023 COVID-19 Vaccine ( season) COVID-19 Vaccine ( season) [facility] Start: 06-04-2023 Covid-19 Vaccine ( season) Covid-19 Vaccine ( season) [facility] Start: 06-04-2023 Influenza vaccination Influenza Vacc ine (#1) [facility] Start: 09-30-2022 COVID-19 Vaccine (5 - Moderna series) COVID-19 Vaccine (5 - Moderna series) [facility] Start: 07-20-2022 [facility] Start: 10-04-2019 Pneumococcal Vaccine : 65+ Years (2 - PPSV23 or PCV20) Pneumococcal Vaccine: 65+ Years (2 - PPSV23 or PCV20) [facility] Start: 06-04-2019 Influenza vaccination INFLUENZA VACC INE (#1) [facility] Start: 06-17-2013 DTaP/Tdap/Td Vaccine s (1 - Tdap) DTaP/Tdap/Td Vaccines (1 - Tdap) [facility] Start: 06-17-2013 Urine microalbumin profile DTaP,Tdap,Td Vaccine (1 - Tdap) [facility] Start: 2002 Pneumococcal vaccination PNEUMOCOCCAL VACCINE SERIES (1 of 2 - PCV13) [facility] Start: 1997 RSV Vaccine (1 - 1-d ose 60+ series) RSV Vaccine (1 - 1-dose 60+ series) [facility] Start: 1987 Colonoscopy COLON CANCER S CREENING DISCUSSION [facility] Start: 1987 Zoster vaccine hzv l cathryn for subcutaneous use ZOSTER (SHINGLES) VACCINE (1 of 2) [facility] Start: 1987 Zoster Vaccines (1 o f 2) Zoster Vaccines (1 of 2) [facility] Start: 1959 DTaP/Tdap/Td Vaccine s (1 - Tdap) DTaP/Tdap/Td Vaccines (1 - Tdap) [facility] Start: 1956 Shingrix Vaccine (1 of 2) Shingrix Vaccine (1 of 2) [facility] Start: 1956 Third diphtheria, tetanus and acellular pertussis (DTaP) vaccination TDAP (ADULT) [facility] Start: 1955 Anxiety Screening Anxiety Screening [facility] Start: 1955 Depression Screening Depression Scre ening [facility] Start: 1955 Diabetes mellitus screening Diabetes Screening [facility] Start: 1955 Tetanus vaccination TETANUS [facility] Start: 02-01-1938 Examination of skin Derm Melanoma Sk in Check [facility] Start: 1937 Lipid panel Lipid Panel [facility] Start: 1937 Medicare Annual Wellness Visit Medicare Annual Wellness Visit (AWV) [facility] Comprehensive metabo lic 1999 panel - Serum or Plasma [facility] Comprehensive metabo lic 2000 panel - Serum or Plasma [facility] End: 10-28-2023 Continuous Pulse oximetry, In Phase 1 Continuous Pulse oximetry, In Phase 1 Respiratory Care Routine Continuous until discontinued starting 10/28/2023 [facility] Work Phone: Comment on above: Continuous until dis continued starting 10/28/2023 CT Abdomen and Pelvi s W contrast IV [facility] CT Chest W contrast [facility] CT Head W contrast [facility] CT Head WO and W contrast IV [facility] CT Neck W contrast IV [facility] Dermatopathology- DE RM LAB [facility] Work Phone: Comment on above: Release Upon Kashin g for 1 Occurrences starting 10/28/2023 Pltkhps-8-Lcvtgxhxh dehydrogenase [Enzymatic activity/mass] in Red Blood Cells [facility] Work Phone: Measurement of total hemoglobin concentration [facility] Work Phone: End: 10-28-2023 NM Spect/CT Localization add on Single Day [facility] Work Phone: Comment on above: Once for 1 Occurrenc es starting 10/28/2023 until 10/28/2023 US Extremity [facility] Immunizations Immunization Date Immunization Notes Care Provider Reji siu 08-12-2023 Prevnar 20 Steve De Paz Other [facility] 07-05-2023 influenza virus vaccine, unspecified formulation DO Steve De Paz Work Phone: [facility] 07-05-2023 influenza, high dose seasonal, preservative-free Steve De Paz Other [facility] Other 08-20-2022 influenza virus vaccine, split virus (incl. purified surface antigen) Steve De Paz Other [facility] Other 08-20-2022 influenza virus vaccine, unspecified formulation Elkin Holly MD Work Phone: [facility] 07-22-2021 influenza virus vaccine, split virus (incl. purified surface antigen) Steve De Paz Other [facility] [employer] Other 07-22-2021 influenza virus vaccine, unspecified formulation DO Steve De Paz Work Phone: [facility] 12-09-2020 SARS-CoV-2 (COVID-19 ) mRNA-9375 vaccine Cristela WINTER [facility] 07-09-2020 influenza virus vaccine, split virus (incl. purified surface antigen) Steve De Paz Other [facility] [employer] Other 07-09-2020 influenza virus vaccine, unspecified formulation DO Steve De Paz Work Phone: [facility] 07-05-2019 influenza virus vaccine, split virus (incl. purified surface antigen) Steve De Paz Other [facility] [employer] Other 07-05-2019 influenza virus vaccine, unspecified formulation DO Steve De Paz Work Phone: [facility] 06-30-2018 influenza virus vaccine, split virus (incl. purified surface antigen) Steve De Paz Other [facility] [employer] Other 06-30-2018 influenza virus vaccine, unspecified formulation DO Steve De Paz Work Phone: [facility] 06-29-2017 influenza virus vaccine, split virus (incl. purified surface antigen) Steve De Paz Other [facility] [employer] Other 06-29-2017 influenza virus vaccine, unspecified formulation DO Steve De Paz Work Phone: [facility] 06-22-2016 influenza virus vaccine, split virus (incl. purified surface antigen) Steve De Paz Other [facility] [employer] Other 06-22-2016 influenza virus vaccine, unspecified formulation DO Steve De Paz Work Phone: [facility] 07-19-2015 pneumococcal conjuga te vaccine, 13 valent Steve De Paz Other [facility] 07-16-2015 influenza virus vaccine, split virus (incl. purified surface antigen) Steve De Paz Other [facility] [employer] Other 07-16-2015 influenza virus vaccine, unspecified formulation DO Steve De Paz Work Phone: [facility] 06-16-2013 tetanus and diphther ia toxoids, adsorbed, preservative free, for adult use (5 Lf of tetanus toxoid and 2 Lf of diphtheria toxoid) Steve De Paz Other [facility] 04-06-2011 tetanus and diphther ia toxoids, adsorbed, preservative free, for adult use (5 Lf of tetanus toxoid and 2 Lf of diphtheria toxoid) Steve De Paz Other [facility] 04-03-2009 pneumococcal polysaccharide vaccine, 23 valent Steve De Paz Other [facility] Payers Date Payer Category Payer Unknown [id number] 2002 Medicare [id number] 1959 Medicare [id number] 1959 Self-pay [id number] 1959 Unknown [id number] 1937 Unknown [id number] 2.16.8 40.1.265229.3.579.2.647 1937 Unknown [id number] 2.16.84 0.1.979863.3.579.2.593 1937 Unknown [id number] 2.16.84 0.1.039332.3.579.2.593 1937 Unknown [id number] 2.16.84 0.1.561658.3.579.2.593 1937 Unknown [id number] 2.16.84 0.1.485812.3.579.2.593 1937 Unknown [id number] 2.16.84 0.1.644682.3.579.2.593 1937 Unknown [id number] 2.16.84 0.1.852563.3.579.2.593 1937 Unknown [id number] 2.16.84 0.1.957178.3.579.2.593 1937 Unknown [id number] 2.16.84 0.1.241566.3.579.2.593 1937 Unknown [id number] 2.16.84 0.1.381536.3.579.2.593 1937 Unknown [id number] 2.16.84 0.1.470069.3.579.2.593 1937 Unknown [id number] 2.16.84 0.1.015994.3.579.2.593 1937 Unknown [id number] 2.16.84 0.1.407266.3.579.2.593 1937 Unknown [id number] 2.16.84 0.1.477431.3.579.2.593 1937 Unknown [id number] 2.16.84 0.1.480002.3.579.2.593 1937 Unknown [id number] 2.16.84 0.1.727212.3.579.2.593 1937 Unknown [id number] 2.16.84 0.1.713702.3.579.2.593 1937 Unknown [id number] 2.16.84 0.1.288072.3.579.2.593 1937 Unknown [id number] 2.16.84 0.1.880304.3.579.2.593 1937 Unknown [id number] 2.16.8 40.1.020198.3.579.2.727 1937 Unknown [id number] 2.16.8 40.1.209497.3.579.2.727 1937 Unknown [id number] 2.16.84 0.1.761127.3.579.2.1243 1937 Unknown [id number] 2.16.84 0.1.255944.3.579.2.1243 1937 Unknown [id number] 2.16.84 0.1.627844.3.579.2.1243 1937 Unknown [id number] 2.16.8 40.1.136610.3.579.2.1244 1937 Unknown [id number] 2.16.8 40.1.102444.3.579.2.1244 1937 Unknown [id number] 2.16.8 40.1.052042.3.579.2.1244 1937 Unknown [id number] 2.16.8 40.1.410189.3.579.2.1244 1937 Unknown [id number] 2.16.84 0.1.610807.3.579.2.1259 Unknown [id number] 2.16.84 0.1.584074.3.579.2.593 Unknown [id number] 2.16.8 40.1.377369.3.579.2.531 Unknown [id number] 2.16.8 40.1.796625.3.579.2.531 Unknown [id number] 2.16.8 40.1.530674.3.579.2.531 Unknown [id number] 2.16.8 40.1.222310.3.579.2.531 Social History Date Type Detail Facility Tobacco smoking status ALIS Unknown if ever smoked [facility] Start: 1935 Sex Assigned At Not on file O [facility] Start: 10-08-2023 End: 05-01-[address] [facility] Other Start: 03-28-2020 End: 05-01-2024 Tobacco smoking status Never smoked tobacco (finding) [facility] Start: 1935 Sex Assigned At Male F [facility] Start: 10-08-2023 End: 05-01-2024 Tobacco use and exposure Smokeless tobacco non-user [facility] Work Phone: Start: 10-08-2023 End: 05-01-2024 History of Social function [facility] Work Phone: Start: 09-28-2023 End: 01-17-2024 Exposure to SARS-CoV-2 (event) Not sure [facility] Start: 10-28-2023 End: 05-01-2024 Alcohol intake Lifetime non-drinker (finding) [facility] Work Phone: National Score (1-100), lower number is lower risk 80 [facility] Functional Status Date Assessment Result Facility 05-17-2023 Functional Status N/A [facility] 05-04-2022 Functional Status N/A [facility] Clinical Notes 10-10-2021 to 05-02-2024 Patient InstructionsCaryl Ley MD - 05/01/2024 9:00 AM Wilfredo Bobby MD - 01/17/2024 3:45 PM Vinicius Holly MD - 01/17/2024 3:30 PM Vinicius Holly MD - 11/08/2023 2:45 PM EST Note Date & Type Note Facility 05-02-2024 Note Cardiovascular Medic ine [facility] SUBJECTIVE Chief Complaint Patient presents with Atrial Fibrillation Congestive Heart Failure Hypertension Hyperlipidemia Nelly Hannon is a 88 y.o. male here for follow-up. His daughter Tricia accompanied him. HPI PMHx: HFrEF/CMP, a.fib with RVR, aborted AVN ablation 11/2022 due to minimal a.fib burden He has been feeling well since last seen. His BP was elevated at a recent visit with his PCP. His PCP started him on amlodipine 2.5mg daily. He has the Rx but hasn't started it yet for concern of his BP going to low. He states since his PCP visit he has been checking his BP at home and it has been running 120s/60s. His LE edema has been stable. Denies c/o CP, dyspnea, orthopnea, PND, dizziness/LH, palpitations, syncope. 09/[address] 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 Patient Active Problem List Diagnosis Atrial fibrillation (CMS/HCC) Cardiac pacemaker in situ Cardiovascular system problem Carotid artery occlusion Chronic systolic heart failure (CMS/HCC) Coronary atherosclerosis Dyspnea Family history of prostate cancer [place] History of cardiovascular disorder Hyperlipidemia Hypertensive disorder Mitral valve disorder Primary malignant neoplasm of prostate (CMS/HCC) Syncope and collapse Benign prostatic hyperplasia with urinary obstruction History of malignant neoplasm of prostate Microscopic hematuria Myocardiopathy (CMS/HCC) Nocturia Post-void dribbling Anemia Autoimmune thyroiditis Brow ptosis Carotid stenosis Chronic venous insufficiency Dermatochalasis of both upper eyelids Encounter for coordination of complex care Iron deficiency anemia Ischemic cardiomyopathy Malignant melanoma of forehead (CMS/HCC) Rectal bleeding Rheumatoid arthritis (CMS/HCC) Thrombocytopenia (CMS/HCC) Past Medical History: Diagnosis Date Atrial fibrillation (CMS/HCC) Coronary artery disease Hyperlipidemia Hypertension Pacemaker Prostate cancer (CMS/HCC) Valvular heart disease Family History Problem Relation Name Age of Onset Other (malignant neoplastic) Mother Coronary artery disease Father Social History Tobacco Use Smoking status: Former Types: Cigars Passive exposure: Past Smok (more content not included)... [facility] 05-02-2024 Note Patient here for 6 m o follow up persistent afib, chronic systolic heart failure, and CAD. Device was checked 2 weeks ago. Yuliana Aj CNP increased metoprolol to 75mg daily at last visit in Oct 2023. Denies chest pain, SOB, palpitations, and lightheadedness/syncope. Denies bleeding on warfarin. Dr. De Paz started him on amlodipine 2.5mg daily but he hasn't started it yet. He states his BP at home is usually in the 120's/60's. Review of Systems Cardiovascular: Positive for leg swelling (intermittent, wears compression stockings). Hematologic/Lymphatic: Bruises/bleeds easily. Musculoskeletal: Positive for arthritis and joint pain. All other systems reviewed and are negative. [facility] 05-01-2024 Instructions Caryl Ley MD - 05/01/2024 9:55 AM EDT C/o right eye heaviness after melanoma resection Recc waiting ~ 1 year to make sure no recurrence of melanoma Discussed mostly 2/2 brow ptosis 2/2 frontalis muscle resection with melanoma Likely would benefit from right direct brow lift Discussed options: - Can consider right direct brow lift (will leave a scar) - Can consider Botox for brow lift (lasts 3 mo, also cosmetic). Botox takes 1 week to set in lasts 3-4 mo, cost $12.50/unit, typical dose 25-35 units $300-450 Discussed risk of bruising, spread to cause droopy eyelid,double vision, rare allergic reaction, rare generalized weakness with neurological disorders eg. 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 Holly @ [facility] -->not getting immunotherapy yet; managed by Dr. Weinberg H/o RA + pacemaker, afib; + coumadin Feels that eyelids block vision and sees better when lifted especially when driving and reading No double vision No issues eating/swallowing No H/o contact lens use Exam: Right forehead scar from melanoma Decreased frontalis use Right brow ptosis especially centrally causing skin over the lashes centrally + skin on lashes Jennifer: 18, 20 @97 AL: 25, 29 LF: 15, 15 Margin to reflex distance 1: 4,4 Pupils symmetric Extraocular movement full, no diplopia Sle: Cornea clear both eyes No Superficial punctate keratopathy (SPK) No conjunctival injection both eyes No a/c reaction both eyes Iris within normal limits both eyes C/o right eye heaviness after melanoma resection Recc waiting ~ 1 year to make sure no recurrence of melanoma Discussed mostly 2/2 brow ptosis 2/2 frontalis muscle resection with melanoma Likely would benefit from right direct brow lift Discussed options: - Can consider right direct brow lift (will leave a scar) - Can consider Botox for brow lift (lasts 3 mo, also cosmetic). Botox takes 1 week to set in lasts 3-4 mo, cost $12.50/unit, typical dose 25-35 units $300-450 Discussed risk of bruising, spread to cause droopy eyelid,double vision, rare allergic reaction, rare generalized weakness with neurological disorders eg. Eaton Lambert syndrome F/u 1 year after melanoma resection, clear , sooner if issues The documentation for this note was completed by Tati Shaw APRN, CNP acting as a scribe for Caryl Ley MD. 05/01/2024 9:53 AM. I have confirmed and edited as necessary the relevant HPI, ophthalmic history, ROS, and the neuro exam findings as obtained by others. I have seen and examined Nelly Hannon. I have discussed the case and the management of this patient's care with the Resident/Fellow, if applicable. I also have reviewed and agree with the assessment and plan as stated above and agree with all of its relevant components. I, Caryl Ley MD, personally performed the services described in this documentation. All medical record entries made by the scribe were at my direction and in my presence. I have reviewed the chart and discharge instructions (if applicable) and agree that the record reflects my personal performance and is accurate and complete. 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 [...] & Neck Surgery documented in this encounter [facility] Work Phone: 01-17-2024 History of Present illness [...] History Patient lives alone, daughter lives in [place] Family History Denies family history of melanoma [...] Elkin Holly MD documented in this encounter [facility] Work Phone: 11-08-2023 History of Present illness [...] History Patient lives alone, daughter lives in [place] Family History Denies family history of melanoma [...] Elkin Holly MD documented in this encounter 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 male who is [...] fascia Elkin Holly documented in this encounter [facility] Work Phone: 10-28-2023 Note Formatting of this n ote is different from the original. 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] Procedures Wide local excision right forehead melanoma greater than 4 cm Right parotidectomy without nerve dissection Identification of sentinel node with gamma probe Surgeons * Elkin Holly - Primary Resident/Fellow/Other Psychological Assistant: Surgeon(s) and Role:taty Procedure Summary Anesthesia: General [...] DERMPATH LAB- DERMATOPATHOLOGY Elkin Holly MD 10/28/2023 [id number] 2 : SENTINEL LYMPH NODE #1 RIGHT INTRAPAROTID Tissue SENTINEL LYMPH NODE OTHER DERMPATH LAB- DERMATOPATHOLOGY Elkin Holly MD 10/28/2023 [id number] 3 : SENTINEL LYMPH NODE #2 RIGHT INTRAPAROTID Tissue SENTINEL LYMPH NODE OTHER DERMPATH LAB- DERMATOPATHOLOGY Elkin Holly MD 10/28/2023 1404 Staff: Nuclear Engineer: Miracle Lara, RN Scrub Person: Anisa Cunningham Findings: 2 [...] excision Other deep to fascia [facility] [facility] Work Phone: 10-28-2023 Hospital Discharge instructions Naima Rodgers MD - 10/28/2023 12:13 PM EST Facial/Neck Incision Care: Cleanse all facial/neck incisions twice daily with baby shampoo or mild soap and water. Apply petroleum jelly/vaseline to incision line twice daily until incision has healed. documented in this encounter [facility] Work Phone: 10-28-2023 Attending History and physical note H&P reviewed. The patient was examined and there are no changes to the H&P. Source Note - User Epic - 10/19/2023 12:00 AM EST [facility] Work Phone: 10-28-2023 History and physical note H&P reviewed. The patient was examined and there are no changes to the H&P. Source Note - User [facility] - 10/19/2023 12:00 AM EST documented in this encounter [facility] Work Phone: 10-26-2023 Note Patient here for [...] All other systems reviewed and are negative. [facility] 10-26-2023 Note [place] Cardiology Consul t Note Reason for visit: [...] tablet Take 200 (more content not included)... 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 Work Phone: [phone]) 511-498710-02-2023 Evaluation note* Encounter Date Diagnosis Assessment Notes [...] are maintaining regular scheduled appts with their information systems architect. No bleeding complications Jul, Primary hypertension (ICD-10 [...] (ICD-10 - Z79.899) Check labs: CBC, ALT [facility] Other 08-28-2023 Evaluation note* Encounter Date Diagnosis Assessment Notes Treatment Notes Treatment Clinical Notes May, Seasonal allergic rhinitis due to pollen (ICD-10 - J30.1) [facility] Other 08-14-2023 Hospital Discharge instructions Patient Education [...] under a microscope. This is called the Lockhart score and the total score can range from 6 10, indicating how likely it is that the cancer will spread (metastasize) to other parts of the body. The higher the score, the greater thelikelihood that the cancer will spread. Aleksey 6 or lower: This indicates that the cancer cells look similar to normal prostate cells (well differentiated). Lockhart 7: This indicates that the cancer cells [...] stress of having cancer. General instructions Take vrfb-uxe-jzlmnel and prescription medicines only as told by your health care provider. If you have to go to the hospital, notify your cancer specialist (oncologist). Keep all follow-up visits. This is important. Where to find more information [place] [employer]: www.cancer.org [place] [employer] Oncology: www.cancer.net National Cancer [place]: www.cancer.gov Contact a health care provider if: [...] provider. Document Revised: 12/17/2021 Document Reviewed: 12/17/2021 [employer] Patient Education 2022 Editorially. Follow Up Care 05/04/2022 13:27:43 With:MOY ARRIAGA, Cristela Carbajal, URL Address: [facility] [address], [place] [address]- [phone] When:Within 1 Year(s) Comments:CHELI [facility] 07-28-[facility] Evaluation note* Encounter Date Diagnosis Assessment Notes Treatment Notes Treatment Clinical Notes Apr, Tinea corporis (ICD-10 - B35.4) Decrease lotrisone to q HS Apr, Venous stasis dermatitis of left lower extremity (ICD-10 - I87.2) Avoid salt and elevate lower extremities, support stockings, inspect legs and feet daily for blisters and ulcerations. Restart wearing support stockings during the daytime [facility] Other 04-21-2023 Evaluation note* Encounter Date Diagnosis Assessment Notes [...] exercise and AHA diet plan. Avoid decongestants [facility] Other 04-05-2023 Evaluation note* Encounter Date Diagnosis [...] are maintaining regular scheduled appts with their information systems architect. Jan, Chronic venous insufficiency (ICD-10 - I87.2) [...] cardiac pacemaker in situ (ICD-10 - Z95.0) [facility] Other 2022 NoteHISTORY AND PHYSICAL EXAMINATION Date:04/15/2022 [...] and go forward with his elective procedure.[id number] NoteOPERATIVE NOTE OPERATION DATE: 04/16/2022 SURGEON: Debbie [...] ensuring mobility, phacoemulsification was performed in a ynelgpf-ulc-mwmkcz-type fashion. After all nuclear material had been [...] up the following day for postoperative care.[facility] 05-07-2022 NoteOPERATIVE NOTE OPERATION DATE: 05/07/2022 [...] ensuring mobility, phacoemulsification was performed in a njgkzxk-doq-jmcupd-type fashion. After all nuclear material had been [...] antibiotic was injected into the anterior chamber. Weck-Arpil sponges were used to check the wounds to be watertight. One drop of apraclonidine and one drop of prednisolone acetate were placed into the eye and a shield was placed over top. The patient was sent to the postoperative area in satisfactory condition to follow up the following day for postoperative care.[id number] NoteHISTORY AND PHYSICAL EXAMINATION Date:05/06/2022 HISTORY: Patient [...] decline other than that of cataract. 2. [id number]-[id number] patient was briefed in the office and [...] and go forward with this elective procedure.[facility] [id number] Hospital Discharge instructions Patient Education 05/04/2022 13:26:39 [...] urethra. Follow these instructions at home: Take eqyu-gdg-oqcatko and prescription medicines only as told by [...] 09/20/2006 Document Revised: 08/15/2019 Document Reviewed: 10/25/2017 [employer] Patient Education 2020 Editorially. Follow Up Care 04/11/2021 11:38:50 With:MOY ARRIAGA, Cristela Carbajal, URL Address: [facility] [address], [place] [address]- [phone] When:Within 1 Year(s) Comments:w/ PSA [facility] [place] 07-14-2022 NotePRE-OP HISTORY AND PHYSICAL Date:04/15/2022 HISTORY: [...] and go forward with his elective procedure.[facility] [id number] NoteOP Note OPERATION DATE: 04/16/2022 SURGEON: Debbie [...] ensuring mobility, phacoemulsification was performed in a uxtxavp-rwy-xhioof-type fashion. After all nuclear material had been [...] up the following day for postoperative care.[facility] 11-03-2021 Evaluation note* Encounter Date Diagnosis [...] working and gentle motion and strength exercise. [facility] Other 01-07-2022 Evaluation note* Encounter Date Diagnosis [...] in office today. Prior medical notes from [place] [facility] and history have been reviewed. At [...] as documented in the electronic medical record. [employer] Other Evaluation + Plan note Future Appointments Appointment Date:05/17/2023 08:45:00 AM Scheduled Provider:Cristela WINTER MD Location:[facility] Appointment Type:URO Office Visit Diagnostic Tests Pending * PSA Total 05/04/22 [facility] evaluation + Plan note Future Appointments Appointment Date:05/22/2024 08:45:00 AM Scheduled Provider:Cristela WINTER MD Location:[facility] Appointment Type:URO Office Visit Diagnostic Tests Pending * PSA Total 05/17/23 [facility] evaluation noteNo assessment information available [facility] Work Phone: Evaluskmcz noteNo InformationNortFor[facility] Hospital [employer] Other Evaluation note* Diagnosis 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) documented in this encounter [facility] Work Phone: Evaluation note* Diagnosis 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) Post-op pain Other acute postoperative pain HTN (hypertension) Unspecified essential hypertension Hyperlipidemia Other and unspecified hyperlipidemia Atrial fibrillation (CMS/HCC) Atrial fibrillation documented in this encounter [facility] Work Phone: [phone] note* Diagnosis Malignant melanoma of forehead (CMS/HCC) documented in this encounter [facility] Work Phone: [phone] note* Diagnosis Malignant melanoma of forehead (CMS/HCC) documented in this encounter [facility] Work Phone: [phone] note* Diagnosis Onset Date Resolution Status Melanoma of head acute [facility] Work Phone: Evaluation note* Diagnosis Onset Date Resolution Status Cardiac pacemaker acute Encounter for coordination of complex care acute History of prostate cancer a cute Melanoma of head acute Rheumatoid arthritis acute Cardiac pacemaker acute Encounter for coordination of complex care acute History of prostate cancer a cute Melanoma of head acute Rheumatoid arthritis acute [facility] Work Phone: Evaluation note* Diagnosis Brow ptosis, right- Primary Dermatochalasis of right upper eyelid documented in this encounter [facility] Work Phone: Evaluation note* Diagnosis Onset Date [...] (hypertension) acute Hypercholesterolemia acute Rheumatoid arthritis acute [facility] Work Phone: Evaluation note* Diagnosis Malignant melanoma of forehead (Multi)- Primary documented in this encounter [facility] Work Phone: Evaluation note* Diagnosis Onset Date [...] Melanoma of head acute Rheumatoid arthritis acute [facility] Work Phone: Evaluation note* Diagnosis Onset Date Resolution Status Cardiac pacemaker acute Encounter for coordination of complex care acute History of prostate cancer a cute Melanoma of head acute Rheumatoid arthritis acute Anemia acute ASHD (arteriosclerotic heart disease) acute Atrial fibrillation acute HTN (hypertension) acute Hypercholesterolemia acute Melanoma of head acute Rheumatoid arthritis acute Thrombocytopenia acute [facility] Work Phone: Evaluation note* Diagnosis Dermatochalasis of both upper eyelids- Primary Myogenic ptosis of bilateral eyelids [facility] Narrative - Reported* Type Description Date Medical History Arthritis Surgical History cardiac pacemeker [facility] Other History general Narrative - Reported* Type [...] History COLONOSCOPY Hospitalization History SEE SURGICAL HX [facility] Other History general Narrative - Reported* Type Description Date Surgical History cardiac pacemeker 2012 Surgical History EXTRACTION OF CATARACT OF BOTH EYES 2021 Surgical History REPLACEMENT, ICD, BIVENTRICULAR 2020 Surgical History CABG Surgical History MVR Surgical History COLONOSCOPY Hospitalization History SEE SURGICAL HX [facility] Other History general Narrative - Reported* Type [...] History COLONOSCOPY Hospitalization History SEE SURGICAL HX [facility] Other History general Narrative - Reported* Type Description Date Medical History History of cardiac pacemaker in situ Medical History Current use of anticoagulant the rapy Medical History Autoimmune thyroiditis Medical History Chronic [...] History COLONOSCOPY Hospitalization History SEE SURGICAL HX [facility] Other Hospital course Narrative No data available for this section [facility] prognduf note No data available for this section [facility] [place] progjasm note Author Adilene Weinberg [facility] December 17, 2023 4:31pm Note Date/Time December 17, 2023 11: 39am [place] [address] Cancer Center Note Signed Patient: Nelly Hannon MR#: [id number] : 1935 Acct:[id number] Age/Sex: 88 / M Type: DEP AMB Copies to: Steve De Paz,DO~ Assessment & Plan A/P (1) Melanoma of [...] of recurrence. The patient's daughter wholives in [place] will be available by phone consultation at the time of his follow-up. He does have capacity for decision-making. All questions were answered over this 60-minute initial consultation. 12/17/2023: Discussion of negative BRAF status and no evidence of RAG WILLOW OPERATOR disease on contrast head CT from 11/29/2023. [...] the deep margin. He was referred to [facility] head neck oncologic surgery. On 10/28/2023 [...] specimen and this will be requested from [facility]. Given his history of rheumatoid arthritis [...] that time. She lives in the [facility] and will be available [facility] for his follow-up appointment, hopefully within the next 2 weeks to review these results and toconsent for therapy. No other concerns today. High complexity 60-minute visit for review of outside records, pathology, imaging, and discussion of potential adjuvant therapy for stage IIIA melanoma. Summary of Therapies Summary of Therapies: 1. 10/28/2023: Wide local excision right scalp with sentinel lymph node biopsy (right parotidectomy)--Dr. Holly 2. Discussion of adjuvant options 11/24/2023 at [facility]. Negative BRAF status. PET/CT negative for [...] - Last Reconciled 12/17/23 by Pamela Smith alfyobaniosin ER 10 mg PO DAILY aspirin (Aspir-) [...] up visit and go over BRAF results [facility] Medical History Medical History Cardiac pacemaker Carotid stenosis Bradycardia Rheumatoid arthritis History of prostate cancer CAD (coronary artery disease) BPH (benign prostatic hyperplasia) Atrial fibrillation Hyperlipidemia HTN (hypertension) Melanoma Surgical History Surgical History H/O cystoscopy Family History Family History Brother Heart disease Legacy [facility]am[facility] Relation: Brother(s) Father Heart disease 85 yrs Mother 65 yrs Cancer [facility] Problem: Diagnosed with Cancer History of ovarian [...] findings negative for BRAF V600 Pathology review [facility] 10/28/2023: A. Skin wide local excision [...] No extracapsular extension is seen) C. Node, [place] lymph node #2 right intraparotid Metastatic malignant [...] CT. Impression dictated by: Festus Silver Jr., D.O.11/19/2023 1:01 PM Enhanced and unenhanced head CT [...] PM Dictated By: Adilene Weinberg MD DD/ [id number] Signed By: <Electronically signed by MD Adilene Weinberg> 12/17/23 1631 [facility] Work Phone: Reason for referral (narrative)* Consultation (Routine) - Authorized Specialty Diagnoses / Procedures Referred By Faviola heredia Referred To Contact Hematology and Oncology Diagnoses Malignant melanoma of forehead (CMS/HCC) [place] [address] [place] [address] Adilene Weinberg MD [address] [place] [id number] Referral ID Status Reason Start Date Expiration Date Visits Requested Visits Authorized [id number] Authorized Specialty Services Required 11/08/2023 11/07/2024 1 1 * Imaging (Routine) - Pending Review Specialty Diagnoses / Procedures Referred By Faviola heredia Referred To Contact Radiology Diagnoses Malignant melanoma of forehead (CMS/HCC) Procedures NM PET [place] [address] Department [place] [address] Referral ID Status Reason Start Date Expiration Date Visits Requested Visits Authorized [id number] Pending Review Perform Procedure 11/08/2023 11/07/2024 [address] [facility] Work Phone: Summary Purpose Family History No Family History Records Found Relationship Condition Age at Onset Recorded Date/T dwayne brother Heart disease Unknown father Heart disease Unknown Unknown Not Specified Unknown Malignant neoplasm Unknown History of ovarian cancer Unknown Relationship Condition Age at Onset Recorded Date/T dwayne brother Heart disease Unknown father Heart disease Unknown Unknown mother Unknown Malignant neoplasm Unknown History of ovarian [...] Melanoma of head Rheumatoid arthritis Chief Complaint melanoma Follow Up after US 1 month Reason for Visit Cardiac pacemaker Encounter for coordination of complex care History of prostate cancer Melanoma of head Rheumatoid arthritis Anemia ASHD (arteriosclerotic heart disease) Atrial fibrillation HTN (hypertension) Hypercholesterolemia Melanoma of head Rheumatoid arthritis Thrombocytopenia Reason for Referral Specialty Diagnoses / Procedures Referred By Contac t Referred To Contact Radiology Diagnoses Malignant melanoma of forehead (CMS/HCC) Procedures [place] [address] [facility] [place] [address] Referral ID Status Reason Start Date Expiration Date Visits Requested Visits Authorized [id number] Pending Review Perform Procedure 10/08/2023 10/07/2024 2 2 Additional Source Comments (unrecognized sect ion and content) No Status Records FoundNo Status Records FoundNo Status Records FoundNo Status Records FoundNo Status Records FoundNo Status Records FoundNo Status Records FoundNo Status Records FoundNo Status Records Found INFORMATION SOURCE (unrecogn ized section and content) DATE CREATED AUTHOR 09/16/2021 [facility] DATE CREATED AUTHOR AUTHOR'S ORGANIZ ATION 03/12/2023 [facility] DATE CREATED AUTHOR AUTHOR'S ORGANIZ ATION 05/18/2023 Reece Harjit [facility] DATE CREATED AUTHOR AUTHOR'S ORGANIZ ATION 11/09/2023 [facility] DATE CREATED AUTHOR AUTHOR'S ORGANIZ ATION 01/21/2024 [facility] DATE CREATED AUTHOR AUTHOR'S ORGANIZ ATION 02/18/2024 [facility] EPIC DATE CREATED AUTHOR AUTHOR'S ORGANIZ ATION 03/01/2024 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] Procedures [place] EXCISION MALIGNANT LESION F/E/E/N/L >4.0 CM [place] DERMAL AUTOGRAFT F/S/N/H/F/G/M/D GT 1ST [address] GUIDANCE NEEDLE PLACEMENT ( sln inj @ 7:00 am ) Excision Lesion Skin Head/Neck Excision Full Thickness Skin Graft Torso Biopsy Lymph Node Head/[place] [address] [facility] [place] [address] [place] [address] [place] [address] Referral ID Status Reason Start Date Expiration Date Visits Re quested Visits Authorized [id number] 1 1 Reason Comments Dermatochalasis Evaluation Care Team (unrecognized sect ion and content) Team Status: Active Member Role Status Dates Steve De Paz DO Primary Care Provider Active Team Status: Active Member Role Status Dates [...] March 16, 2024 End: March 16, 2024 Team Status: Active Member Role Status Dates Steve De Paz DO Primary Care Provide r, Attending Provider Active Start: April 20, 2024 Team Status: Inactive Member Role Status Dates Steve De Paz DO Primary Care Provide r, Attending Provider Active Start: April 25, 2024 End: April 25, 2024 Team Status: Inactive Member Role Status Dates Steve De Paz DO Primary Care Provider Active Michele Arteaga MD Attending Provider Active Team Status: Inactive Member Role Status Dates Steve De Paz DO Primary Care Provider Active Jose R Cruz MD Attending Provider Active Object 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 [facility] [place] [address] PCP - General Internal Medicine 10/28/23 Object 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 [facility] [place] [address] PCP - General Internal Medicine 10/28/23 Object 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 [facility] [place] [address] PCP - General Internal Medicine 10/28/23 Team [...] December 27, 2023 End: December 27, 2023 Object Oriented Programmer Relationship Specialty Start Date End Date Steve De Paz DO [address] [place] [address] [place] [address] PCP - General Internal Medicine 10/28/23 Team Status: Inactive Member Role Status Dates Steve De Paz DO Primary Care Provide r, Attending Provider Active Start: January 19, 2024 End: January 19, 2024 Object Oriented Programmer Relationship Specialty Start Date End Date Steve De Paz DO [address] [facility] [place] [address] PCP - General Internal Medicine 1/25/24 Goals (unrecognized section and content) Goals may [...] at 1455, For 1 dose, Recovery (only) Source Comments (unrecognize d section and content) In the event this informatio n is protected by the Federal Confidentiality of Alcohol and Drug Abuse Patient Records regulations: The Federal rules restrict any use of the information to criminally investigate or prosecute any alcohol or drug abuse patient.[facility] FOR RECORDS PERTAINING TO PATIENTS WHO ARE [...] BE BASED ON THE PRIMARY CLINICAL RECORDS. [facility]. provides no warranty or guarantee of the accuracy or completeness of information in this document.
[2024-05-10 10:40] LABS: Prostate Specific Antigen Dx <0.13 ng/mL (<=4.00)
== END 2024-05-10 08:53 | disposition home or self-care (01) ==
LOC: LAB 08:54
PROVIDERS: PCP Internal Medicine; Visit Provider Urology
DX: Z85.46 Personal history of malignant neoplasm of prostate (principal)
CPT/HCPCS: 36415; 84153

== ENCOUNTER 2024-05-16 08:12 | Outpatient (OUT) | payer MEDICARE, BC, SELFPAY ==
--- NOTE | 2024-05-16 09:03 | CA_ITS ---
Patient Name: NELLY QUIROZ MR#: [id number] : 1935 Exam Date: 05/16/2024 Ordering Doctor: KAYLEY STAPLES CNP ECHOCARDIOGRAM REPORT PROCEDURE: CA ECHO DOPPLER COMPLETE INDICATIONS: Heart failure with reduced EF COMPARISON: None. DESCRIPTION: COMPLETE ECHOCARDIOGRAM Real-time transthoracic echocardiography with 2D, M-mode, spectral and color flow Doppler performed. QUALITY: Technical quality was good. LEFT VENTRICLE: Normal chamber size. Normal left ventricular wall thickness. Global left ventricular systolic function is mildly to moderately decreased. LV EF: Visual estimation of left ventricular ejection fraction is 40-45% DIASTOLIC: ATRIAL SEPTUM: LEFT ATRIUM: Severe dilatation. RIGHT ATRIUM: Severe dilatation. RIGHT VENTRICLE: Moderate dilatation. Mildly decreased right ventricular systolic function. Pacer wire present. TRICUSPID VALVE: Normal mobility and thickness. No stenosis with moderate regurgitation. Severe pulmonary hypertension. RVSP 72 mmHg MITRAL VALVE: Bio-Prosthetic valve with normal flow. Mean diastolic gradient is 6.1 mmHg at a heart rate of 61 bpm. Mild perivalvular regurgitation AORTIC VALVE: Normal trileaflet appearance. No visible sclerosis. Normal leaflet mobility. No evidence of aortic valve stenosis. No aortic regurgitation. AORTIC ROOT: Normal diameter and appearance. PULMONIC VALVE: Normal thickness and mobility. No stenosis. Mild to moderate regurgitation. PERICARDIUM: No evidence of pericardial effusion. IVC: Moderate dilatation. Measuring 2.5 cm with no collapse. PLEURA: CONCLUSION: 1. The left ventricle is normal in size and exhibits mildly to moderately reduced systolic function. Estimated LVEF is 40 to 45%. 2. Right ventricle is moderately dilated with mildly reduced systolic function. 3. Severe biatrial dilatation. 4. 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 5. Moderate tricuspid regurgitation. 6. Mild to moderate pulmonic regurgitation. 7. Severely elevated right-sided pressures. RVSP is 72 mmHg. Adult Echocardiography Procedure Report Left Ventricle LVEDD (3.7 - 5.6 cm): 4.78 cm LVESD (2.2 - 4.0 cm): 3.73 cm LVIVS thickness (0.6 - 1.2 cm): 1.05 cm LVPW thickness (0.5 - 1.0 cm): 0.82 cm LVOT Max Gradient: 1.44 mm[Hg], 1.14 mm[Hg] LVOT Area (cm2): 0.57 m/s Peak Velocity (LVOT): 0.60 m/s, 0.53 m/s Mean Velocity (LVOT): 0.42 m/s LVOT Diameter 1.97 cm Left Ventricular Ejection Fraction: 40-45 % Left Atrium LA Volume Index (2D A2C): 65.35 ml/m2 Left Atrium Systolic Dimension: 5.62 cm Mitral Valve Mitral Valve E-Wave Peak Velocity: 1.92 m/s Right Ventricle RV Internal Diastolic Dimension: 4.19 cm Aorta AO Root Diam: 3.74 cm Aortic Valve AoV Area (Peak Gilbert): 2.22 cm2, 2.35 cm2 AoV Area (VTI): 1.90 cm2, 1.99 cm2 Peak Velocity(Antegrade Flow): 0.78 m/s Peak Gradient(Antegrade Flow): 2.44 mm[Hg] Mean Velocity(Antegrade Flow): 0.58 m/s Mean Gradient(Antegrade Flow): 1.49 mm[Hg] Velocity Time Integral: 23.21 cm Tricuspid Valve Peak Velocity (Regurgitant Flow): 3.79 m/s, 3.19 m/s, 3.57 m/s Pulmonic Valve Peak Velocity: 0.72 m/s Peak Gradient: 1.79 mm[Hg], 2.41 mm[Hg] Right Atrium Right Atrium Systolic Pressure: 101.27 ml, 101.27 ml Dictated by: Dylon Kate M.D. on 05/16/2024 at 20:36 Approved by: Dylon Kate M.D. on 05/16/2024 at 20:42
== END 2024-05-16 08:13 | disposition home or self-care (01) ==
LOC: CARD 08:13
PROVIDERS: PCP Internal Medicine; Visit Provider Nurse Practitioner Family
DX: I50.22 Chronic systolic (congestive) heart failure (principal)
CPT/HCPCS: 93306; 93356

== ENCOUNTER 2024-06-05 01:01 | Outpatient (RCR) | payer MEDICARE, BC, SELFPAY | END 2024-07-03 23:37 | disposition home or self-care (01) | LOC: MM 01:01 | PROVIDERS: PCP Internal Medicine; Visit Provider Internal Medicine | DX: Z51.81 Encounter for therapeutic drug level monitoring (principal); Z79.01 Long term (current) use of anticoagulants; I48.91 Unspecified atrial fibrillation | CPT/HCPCS: 85610; G0463 ==

== ENCOUNTER 2024-06-07 09:07 | Outpatient (OUT) | payer MEDICARE, BC, SELFPAY ==
--- OUTSIDE RECORDS SUMMARY | 2024-06-07 09:23 | XMS_ITS | CCD ---
Author Organization [facility] Care Team Providers Care Service Station Operator Name Role Phone Unavailable Primary Care Provider Unavailabl e STEVE DE PAZ Primary Care Unavailable FILIPPO JUDGE Attending Unavailable FILIPPO JUDGE Admitting Unavailable STEVE DE PAZ Referring Unavailable Vinh Lawton Unavailable STEVE DE PAZ Primary Care Physician DO Steve De Paz Primary Care Provider [phone] MD Michele Arteaga Attending Provider [phone] DO Steve De Paz Primary Care Provider [phone] MD Michele Arteaga Attending Provider Steve De Paz Unavailable WINTER ., DR ARCHIBALD Consulting Unavailable WINTER ., DR ARCHIBALD Attending Unavailable BALL, DR WILSON Primary Care Unavailable WINTER ., DR ARCHIBALD Admitting Unavailable ZANDRA, DR WILSON Primary Care Unavailable SHAIKH Stephon LUO Attending Unavailable SHAIKH Stephon LUO Admitting Unavailable ZANDRA, DR WILSON Primary Care Unavailable GERBER ., DR LOPEZ Consulting Unavailable GERBER ., DR LOPEZ Attending Unavailable HOTristan ., DR LOPEZ Admitting Unavailable FILIPPO JUDGE Attending Unavailable FILIPPO JUDGE Admitting Unavailable FILIPPO JUDGE Consulting Unavailable ZANDRA, DR WILSON Primary Care Unavailable ZANDRA, DR WILSON Consulting Unavailable ZANDRA, DR WILSON Attending Unavailable ZANDRA, DR WILSON Admitting Unavailable ZANDRA, DR WILSON Primary Care Unavailable DEBBIE GORDON Attending Unavailable ZANDRA, DR WILSON Primary Care Unavailable ZANDRA, DR WILSON Consulting Unavailable DEBBIE GORDON Admitting Unavailable DEBBIE GORDON Consulting Unavailable RON CAZARES Consulting Unavailable FILIPPO JUDGE Attending Unavailable FILIPPO JUDGE Admitting Unavailable FILIPPO JUDGE Consulting Unavailable ZANDRA, DR WILSON Primary Care Unavailable ZANDRA, DR WILSON Primary Care Unavailable FAWWAD, HANSEN H Attending Unavailable FAWWAD, HANSEN H Admitting Unavailable FAWWAD, HANSEN H Attending Unavailable BALL, DR WILSON Primary Care Unavailable FAWWAD, HANSEN H Admitting Unavailable FAWWAD, HANSEN H Admitting Unavailable FAWWAD, HANSEN H Attending Unavailable BALL, DR WILSON Primary Care Unavailable FAWWAD, HANSEN H Admitting Unavailable FAWWAD, HANSEN H Attending Unavailable BALL, DR WILSON Primary Care Unavailable BALL, DR WILSON Primary Care Unavailable FAWWAD, HANSEN H Attending Unavailable FAWWAD, HANSEN H Admitting Unavailable BALL, DR WILSON Primary Care Unavailable FAWWAD, HANSEN H Attending Unavailable FAWWAD, HANSEN H Admitting Unavailable FAWWAD, HANSEN H Admitting Unavailable FAWWAD, HANSEN H Attending Unavailable BALL, DR WILSON Primary Care Unavailable FAWWAD, HANSEN H Admitting Unavailable FAWWAD, HANSEN H Attending Unavailable BALL, DR WILSON Primary Care Unavailable BALL, DR WILSON Primary Care Unavailable FAWWAD, HANSEN H Attending Unavailable FAWWAD, HANSEN H Admitting Unavailable BALL, DR WILSON Primary Care Unavailable FAWWAD, HANSEN H Attending Unavailable FAWWAD, HANSEN H Admitting Unavailable DEBBIE GORDON Consulting Unavailable EVNA, DEBBIE Attending Unavailable DEBBIE GORDON Admitting Unavailable ZANDRA, DR WILSON Primary Care Unavailable FILIPPO JUDGE Admitting Unavailable FILIPPO JUDGE Consulting Unavailable ZANDRA, DR WILSON Primary Care Unavailable FILIPPO JUDGE Attending Unavailable DO Steve De Paz Primary Care Provider [phone] MD Michele Arteaga Attending Provider MD Jose R Cruz Attending Provider [phone] DO Steve De Paz Primary Care Provider MD Michele Arteaga Attending Provider [phone] Unavailable Primary Care Provider UnavailSteve Little DO Primary Care Provider ELKIN HOLLY Admitting Unavailable ELKIN HOLLY Attending Unavailable STEVE DE PAZ Primary Care Unavailable ELKIN HOLLY Referring Unavailable BALL, STEVE E Primary Care Unavailable THBITANER, ELKIN E Referring Unavailable BALL, STEVE E Primary Care Unavailable Zandra DO Wilson Primary Care Provider MD Elkin Holly Attending Provider MD Adilene Weinberg Attending Provider MD Elkin Holly Referring Provider [phone] Zandra DO Wilson Primary Care Provider MD Elkin Holly Attending Provider MD Adilene Weinberg Attending Provider [phone] MD Elkin Holly Referring Provider MD Michele Arteaga Attending Provider ELKIN HOLLY Attending Unavailable ELKIN HOLLY Attending Unavailable ZANDRA, STEVE E Primary Care Unavailable ELKIN HOLLY E Attending Unavailable ZANDRA STEVE E Primary Care Unavailable DEBBIE BOBBY Attending Unavailable ZANDRA STEVE E Primary Care Unavailable DEBBIE GORDON Attending Unavailable DO Steve De Paz Primary Care Provider MD Adilene Weinberg Attending Provider MD Elkin Holly Referring Provider Zandra DO Wilson Primary Care Provider Steve De Paz Primary Care Unavailable Elkin Holly E Attending Unavailable Elkin Holly E Admitting Unavailable Chandler Michele Admitting Unavailable Ball, Steve Primary Care Unavailable Chandler Michele Attending Unavailable Ball, Steve Primary Care Unavailable Adilene Weinberg Attending Unavailable Adilene Weinberg Admitting Unavailable Nagi Hollyson E Referring Unavailable Chandler Michele Admitting Unavailable Ball, Steve Primary Care Unavailable Chandler Michele Attending Unavailable Unavailable Primary Care Provider UnavailCristela Hightower Attending Unavailable Cristela WINTER Attending Unavailable RAFA, MORE Referring Unavailable YULIANA AJ Attending Unavailable FILIPPO JUDGE Referring Unavailable KAYLEY STAPLES Attending Unavailable FILIPPO JUDGE Referring Unavailable RAFA, MORE Referring Unavailable RAFA, MORE Referring Unavailable RAFA, MORE Referring Unavailable RAFA, MORE Referring Unavailable RAFA, MORE Referring Unavailable Allergies Allergy Classification Reported Allergen(s) Allergy Type Date of Onset Reaction(s) Facility Latex (1 source) Latex Substance Allergy 4 Rash [facility] Penicillins (antibiotic) (1 source) Penicillins Drug Allergy 4 Swelling of the Eye [facility] (20 sources) Latex; Translations: [LATEX] Propensity to adverse reactions (disorder) 9 rash, Hives, Itching [facility] Repository (20 sources) Penicillins; Translations: [penicillins] Drug allergy (disorder) 0 Swelling of the Eye [facility] Rep[facility] (2 sources) Penicillin V Drug Allergy Unknown [facility] Metabolon Other (11 sources) Penicillin Drug Allergy Unknown [facility] Metabolon Other (10 sources) Penicillins Drug Allergy 4 Other, Other: See Comments, Swelling, Unknown [facility] Work Phone: (1 source) Penicillins Drug allergy (disorder) 4 [facility] Repository (1 source) Spironolactone; Translations: [SPIRONOLACTONE ] Drug Allergy 1 [facility] Repository Medications Current Medications Medication Drug Class(es) [...] tablet (20 sources) alpha-Adrenergic Amador Start: 11-24-2023 End: 12-07-2024 take 1 tablet by mouth once daily alfuzosin 10 mg ER Tab 10 mg = 1 tab(s), Oral, Daily, X 90 day(s), # 90 tab(s), Refills(s) 3, Pharmacy: [facility], 178, cm, 05/17/23 9:00:00 EDT, Height/Length Dosing, 75.1, kg, 05/17/23 9:00:00 EDT, Weight Dosing Start Date: 12/13/23 Stop Date: 12/07/24 Status: Ordered Start: 12-22-2021 End: 11-21-2023 take 1 tablet by mouth once daily alfuzosin 10 mg ER Tab 10 mg = 1 tab(s), Oral, Daily, X 90 day(s), # 90 tab(s), Refills(s) 3, Pharmacy: [facility], 178, cm, 05/04/22 12:45:00 [...] (20 sources) HMG-CoA Reductase Inhibitor Start: 04-02-2014 Lipitor 40 mg Tab Refills(s) 0 Start Date: 04/02/14 Status: Ordered betamethasone 0.5 mg/ml / clotrimazole 10 mg/ml topical cream (5 sources) Azole Antifungal, Corticosteroid Start: 04-16-2023 Clotrimazole-Beta methasone 1-0.05 % 1 application Externally Twice a [...] r's infusion Calcium Citrate / Vitamin D (3 sources) Start: 04-02-2014 calcium-vitami n D Refill(s) [...] route. Active take 1 capsule by mo sch every other day Vitamin D3 25 MCG [...] Daily, # 90 tab(s), Refills(s) 3, Pharmacy: [facility], 178, cm, 05/17/23 9:00:00 EDT, Height/Length Dosing, 75.1, kg, 05/17/23 9:00:00 EDT, Weight Dosing Start Date: 11/26/23 Status: Ordered furosemide 20 mg oral tablet (20 sources) Loop Diuretic Start: 04-08-2020 take 1 mg by mouth once daily furosemide 20 mg Tab mg tab(s), Oral, Daily, Refills(s) 0 Start Date: 04/08/20 Status: Ordered 1 ml HYDROmorphone hydrochloride 1 mg/ml cartridge (1 source) Opioid Agonist Start: 10-28-2023 HYDROmorphone (Dilaudid) injection 0.5 mg hydroxychloroquine sulfate 200 mg oral tablet (20 sources) Antimalarial, Antirheumatic Agent Start: 04-02-2014 Plaquenil 200 mg Tab Refills(s) 0 Start Date: 04/02/14 Status: Ordered take 1 tablet by ho th once daily, then take 1 tablet by mouth twice daily at mealtime hydroxychloroquine (Plaquenil) 200 mg ta blet TAKE 1 TABLET BY MOUTH ONCE DAILY ALTERNATING WITH 1 TABLET TWICE DAILY WITH FOOD. CONFIRM WITH EYE DOCTOR ON YEARLY EYE EXAM FOR MEDICATION TOXICITY. Active Iron (11 sources) Start: 04-02-2014 Patrick Iron Refil ls(s) [...] Amador Start: 07-13-2017 End: 10-26-2023 take 1 mg by mouth once daily losartan 50 mg Tab mg tab(s), Oral, Daily, Refills(s) 0 Start Date: 04/08/20 Status: Ordered 1 ml meperidine hydrochloride 50 mg/ml injection [...] 8:12am Start: 10-26-2023 take 1 tablet by ho th once daily metoprolol succinate ER (TOPROL XL) 50 mg 24 hr tablet Take 25 mg by mouth once daily. 0 10/26/2023 Active Start: 07-13-2017 End: 01-19-2024 take 1 mg by mouth once daily metoprolol 25 mg ER Tab mg tab(s), Oral, Daily, Refills(s) 0 Start Date: 04/08/20 Status: Ordered take 2 tablets by [facility] every twenty-four hours Metoprolol Succinate ER 50 MG 2 tablet Orally Once a day Active Nitro 0.4 mg Tab (2 sources) Start: 04-11-2021 Nitro 0.4 mg T ab [...] Tuberculosis Skin Test, Skin Test Antigen sennosides, chcf 8.6 mg oral tablet (6 sources) Start: [...] Vitamin K Antagonist Start: 07-13-2017 take 1 mg by mouth once daily warfarin 5 mg Tab mg tab(s), Oral, Daily, Refills(s) 0 Start Date: 04/08/20 Status: Ordered Warfarin 5mg 5 m g 1 1/2 [...] 24, 2023 1:00am January 19, 2024 8:11am [id number] (Lymphoseek) injection 0.992 millicurie (2 sources) Start: 10-28-2023 End: 10-28-2023 [id number] (Lymphoseek) injection 0.992 millicurie triamcinolone acetonide 40 mg/ml injectable suspension (13 sources) Corticosteroid Start: 01-06-2023 Kenalog-40 28 May, 2023 60 mg Vitamin D3 5000 intl units oral capsule (3 sources) Start: 04-08-2020 take 1 capsule by [...] fibrillation] Onset: 7 03-28-2020 Chronic Cardiac dysrhythmias (5 sources) Bradycardia; Translations: [Bradycardia, unspecified] 03-28-2020 Episodic [...] 07-13-2017 Episodic Genitourinary symptoms and ill-defined conditions (3 sources) 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 Genitourinary symptoms and ill-defined conditions (9 sources) Nocturia; Translations: [Nocturia] Onset: 2 Episodic Heart valve disorders (13 sources) History of heart valve repair with prosthesis; Translations: [Presence of prosthetic heart valve] Chronic Hyperplasia of prostate (17 sources) Benign prostatic hypertrophy with outflow obstruction; [...] Chronic Occlusion or stenosis of precerebral arteries (5 sources) Carotid artery stenosis; Translations: [Left carotid artery occlusion] 03-28-2020 Chronic Other aftercare (10 sources) Long-term current use of anticoagulant; Translations: [skilled nursing (current) use of anticoagulants] Episodic Other aftercare (5 sources) skilled nursing (current) use of anticoagulants; Translations: [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 TRAINER 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 CURRNT USE ANTICOAGULANTS] Onset: 3 Episodic Other aftercare (5 sources) Encounter for therapeutic drug level monitoring; Translations: [ENC THERAPEUTC DRUG LEVL MONITORING] Onset: 3 Episodic Other aftercare (2 sources) Other termite control servicer (current) drug therapy; Translations: [OTH LINK TRAINER TEACHER CURRENT DRUG THERAPY] Onset: 2 Episodic Other aftercare (2 sources) Long-term current use of drug therapy; Translations: [Other termite control servicer (current) drug therapy] Episodic Other circulatory disease [...] conditions (not mental disorders or infectious disease) (3 sources) Raised prostate specific antigen 03-28-2020 Episodic [...] Test Name Value Interpretation Reference Range Facility 36on 05-24-2024 36 Regarding echo resul t from 05/16/2024: MILAN Raygoza MA Please let him know his ECHO shows his heart function is at 40-45%. Valve is functioning normally. He is showing signs that he is carrying some extra fluid intravascularly. Would like for him to increase his lasix to 40mg daily with follow-up BMP in 1-2 weeks. Thanks! Spoke with patient's daughter and informed her of echo result and med increase. Asked her to have him have BMP in 1-2 weeks. Order faxed to [facility]. RX for 40mg tablets sent in. [facility] Ambulatory Visit Summaryon 0 05-22-2024 Ambulatory Visit Summary Ambulatory Visit Summary NELLY HANNON :1935 Visit Date:05/22/2024 Ambulatory Visit Instructions Your Diagnosis BPH with urinary obstruction History of prostate cancer Nocturia Your Care Team Attending Physician - MOY [...] Cataract extraction, Procedure on back. Discharge Vitals Temperature (Temporal Artery) 37 ?C Heart Rate (Peripheral) 62 Respiratory Rate 16 Blood Pressure 130/70 Height 178 cm Height 70 in Weight 74 kg Weight 162.8 lb BMI 23.36 What to do next Scheduled Follow-Up Appointments Wednesday 8:00 AM EDT With: Cristela WINTER MD Where: [facility] [address] [facility] [place] [address]- You Need to Schedule the Following Appointments Follow Up with Cristela WINTER MD, URL When: Comments: 1 yr w/ PSA Where: [facility] [address], [place] [address] [phone] Medications What How Much When Instructions Unchanged alfuzosin (alfuzosin 10 mg ER Tab) 1 Tablets By Mouth Every day Duration: 90 Days Unchanged finasteride (finasteride 5 mg Tab) 1 Tablets By Mouth Every day Unchanged atorvastatin (Lipitor 40 mg Tab) Contact prescribing physician if questions or concerns Unchanged calcium-vitamin D Contact prescribing physician if questions or concerns Unchanged cholecalciferol (Vitamin D3 5000 intl units oral capsule) 1 Capsules By Mouth Every day with food Contact prescribing physician if questions or concerns Unchanged ferrous sulfate (Patrick Iron) Contact prescribing physician if questions or concerns Unchanged furosemide (furosemide 20 mg Tab) By Mouth Every day Contact prescribing physician if questions or concerns Unchanged hydroxychloroquine (Plaquenil 200 mg Tab) Contact prescribing physician if questions or concerns Unchanged leflunomide (leflunomide 20 mg Tab) By Mouth Every day Contact prescribing physician if questions or concerns Unchanged losartan (losartan 50 mg Tab) By Mouth Every day Contact prescribing physician if questions or concerns Unchanged metoprolol (metoprolol 25 mg ER Tab) By Mouth Every day Contact prescribing physician if questions or concerns Unchanged nitroglycerin (Nitro 0.4 mg Tab) 1 Tablets Sublingual Every 5 minutes as needed for Chest pain Contact prescribing physician if questions or concerns Unchanged spironolactone (spironolactone 25 mg Tab) By Mouth 2 times a day Contact prescribing physician if questions or concerns Unchanged warfarin (warfarin 5 mg Tab) By Mouth Every day Contact prescribing physician if questions or concerns Allergies Latex penicillins Problems Ongoing - Any problem that you are currently receiving treatment for. Atrial fibrillation BPH with urinary obstruction Bradycardia CAD (coronary artery disease) Carotid stenosis History of prostate cancer Hyperlipidemia Hypertension Microscopic hematuria Nocturia Post-void dribbling Rheumatoid arthritis Historical - Any problem that you are no longer receiving treatment for. Elevated PSA Patient Survey You may receive a survey via text or e-mail asking about your office visit. Please share your experience with us by completing your survey. We appreciate your feedback and thank you for choosing us for your care. Education Materials Prostate Cancer Screening Prostate cancer screening is testing that is done to check for the presence of prostate cancer in men. The prostate gland is a walnut-sized gland that is located below the bladder and in front of the rectum in males. The function of the prostate is to add fluid to semen during ejaculation. Prostate cancer is one of the most common types of cancer in men. Who should have prostate cancer screening? Screening recommendations vary based on age and other risk factors, as w (more content not included)... Normal [facility] Urology Office/Clinic Noteon 05-22-2024 Urology Office/Clinic Note Urology Office/Clinic Note Chief Complaint hx of prostate cancer HPI Staff 1 year follow up w/PSA Dx: BPH with urinary obstruction (Evolve laser 2007), hx of prostate cancer (Brachytherapy 2008) and nocturia. *Finasteride 5mg QD and Alfuzosin 10mg ER QD. PSA 03/31/21 - 0.05 04/07/22 - 0.05 05/10/23 - <0.13 05/10/24 - <0.13 Dysuria: no Incomplete bladder emptying: no Hematuria: no Frequency: no Urgency: no Nocturia: 1-2x Stream: good steady Leaking: no Post void dripping: no Wearing pads/ Depends: no Urge incontinence: no Stress incontinence: no Incontinence without Sensory Awareness: no Abdominal pain: denies Flank pain: denies Sexual complaints: no History of Present Illness Tests reviewed: reviewed PSA I have reviewed the previous health record information and history for this patient from Dr. Winter. I have reviewed and verified the staff HPI to be accurate for this encounter. Review of Systems PHQ Score Initial Depression Screen Score: 0 SCORE ROS - Provider Constitutional: denies weight loss, denies hot flashes. Eyes: denies eye problems. Gastrointestinal: denies nausea, denies vomiting. Cardiovascular: denies chest pain or angina. Integumentary: no dryness Musculoskeletal: denies musculoskeletal symptoms. ENMT: denies otolaryngeal symptoms. Respiratory: no shortness of breath. Heme/Lymph: denies easy bleeding tendency, denies easy bruising tendency. Psychiatric: no confusion, no anxiety. Genitourinary: See HPI. Physical Exam Vitals & Measurements T: 37 ?C(Temporal Artery) HR: 62(Peripheral) RR: 16 BP: 130/70 HT: 70 in HT: 178 cm WT: 74 kg WT: 162.8 lb BMI: 23.36 General Appearance: alert, no distress, well nourished, well developed male. Assessment/Plan 1. BPH with urinary obstruction (N40.1: Benign prostatic hyperplasia with lower urinary tract symptoms) S/P Evolve laser 2007. No sample provided for UA today. Taking Finasteride 5mg qd and Alfuzosin 10mg ER qd. Has good, steady stream. Feels he empties. Denies any accidents or pain/burning with urination. Feels overall urinary habits are controlled. -Cont Finasteride and Alfuzosin wo changes. Call for refills. 2. History of prostate cancer (Z85.46: Personal history of malignant neoplasm of prostate) PSA 03/31/21 - 0.05 04/07/22 - 0.05 05/10/23 - <0.13 05/10/24 - <0.13 S/P Brachytherapy 2008. PSA remains low and undetectable. Will continue to monitor. -PSA in 1 year 3. Nocturia (R35.1: Nocturia) Ongoing, 1-2x/night (2-3x). Not bothersome. Follow-up With When Contact Information MOY ARRIAGA, Cristela Carbajal, URL [facility] [address], [place] [address] [phone] Additional Instructions: 1 yr w/ PSA Patient Education Prostate Cancer Screening ILinda, personally scribed for Dr. Winter on 05/22/2024 09:21:26. . Documentation recorded by the Linda tse, accurately reflects the services(s) I performed and decisions made by me. Authenticated by Dr. Winter on 05/22/2024 09:22:26. Problem List/Past Medical History Ongoing Atrial fibrillation [...] Never (less than 100 in lifetime) Tobacco Use:. Household tobacco concerns: No., 05/22/2024 Family History Primary malignant neoplasm of prostate: Grandparent. Immunizations Vaccine Date Status SARS-CoV-2 (COVID-19) mRNA-1273 vaccine 12/09/2020 Recorded Normal [facility] Comment on above: Result Comment: Elec tronically Signed By: Cristela WINTER MD\.br\Date and Time Signed: 05/22/24 09:22 EDT\.br\Electronically Co-Signed By: Linda Izquierdo\.br\Date and Time Co-Signed: 05/22/24 09:21 EDT Office Visiton 05-02-2024 Follow-up visit [id number] Nelly Hannon 1935 M Date Provider Department Center 05/02/2024 KAYLEY CROSS CARD [facility] Family History Problem Relation Age of Onset Other Mother Coronary artery disease Father Family Status - Relation Status Age at Mother Father Level of Service:58110 CO OFFICE/OUTPATIENT ESTABLISHED MOD MDM 30 MIN Reason for Visit and Comments: Atrial Fibrillation [80] Congestive Heart Failure [127] Hypertension [755823] Hyperlipidemia [182] Normal [facility] Basophils Auto (Bld) [#/Vol] on 04-20-2024 Basophils (Bld) [#/Vol] 0.1 10 3/uL 0.0-0.1 [facility] Basophils/100 WBC Auto (Bld) on 04-20-2024 Basophils/100 WBC (Bld) 1.4 % 0.2-2.0 [facility] Eosinophils/100 WBC Auto (Bl d)on 04-20-2024 Eosinophils/100 WBC (Bld) 3.3 % 0.9-7.0 [facility] Erythrocyte distribution wid th Auto (RBC) [Ratio]on 04-20-2024 Erythrocyte distribution width (RBC) [Ratio] 13.7 % 11.0-15.0 [facility] Hematocrit Auto (Bld) [Volum e fraction]on 04-20-2024 Hematocrit (Bld) [Volume fraction] 32.0 % Low 42.0-54.0 [facility] Hemoglobin [Mass/volume] in Bloodon 04-20-2024 Hemoglobin (Bld) [Mass/Vol] 10.0 g/dL Low 14.0-18.0 [facility] Iron binding capacity [Mass/ volume] in Serum or Plasmaon 04-20-2024 Iron binding capacity [Mass/Vol] 264.0 ug/dL 250.0-450.0 [facility] Iron saturation [Mass Fracti on] in Serum or Plasmaon 04-20-2024 Iron saturation [Mass fraction] 22.3 % [facility] Laboratory - Chemistry and C hemistry - challengeon 04-20-2024 Cobalamin (Vitamin B12) [Mass/Vol] 1273.0 pg/mL High 193.0-986.0 [facility] Ferritin [Mass/Vol] 122.0 ng/mL 26.0-388.0 [facility] Iron [Mass/Vol] 59.0 ug/dL Low 65.0-175.0 [facility] Laboratory - Hematology and Cell countson 04-20-2024 Immature granulocytes/100 WBC (Bld) 0.2 % 0.0-0.5 [facility] Leukocytes [#/volume] correc bert for nucleated erythrocytes in Blood by Automated counon 04-20-2024 WBC corrected for nucl RBC Auto (Bld) [#/Vol] 4.2 10 3/uL 4.0-11.0 [facility] Lymphocytes Auto (Bld) [#/Vo l]on 04-20-2024 Lymphocytes (Bld) [#/Vol] 1.0 10 3/uL Low 1.2-3.8 [facility] Lymphocytes/100 WBC Auto (Bl d)on 04-20-2024 Lymphocytes/100 WBC (Bld) 23.6 % 20.5-60.0 [facility] MCH Auto (RBC) [Entitic mass ]on 04-20-2024 MCH (RBC) [Entitic mass] 31.1 pg 25.9-34.0 [facility] MCHC Auto (RBC) [Mass/Vol]on 04-20-2024 MCHC (RBC) [Mass/Vol] 31.3 g/dL 29.9-35.2 [facility] MCV Auto (RBC) [Entitic vol] on 04-20-2024 MCV (RBC) [Entitic vol] 99.4 fL High 80.0-94.0 [facility] Monocytes Auto (Bld) [#/Vol] on 04-20-2024 Monocytes (Bld) [#/Vol] 0.6 10 3/uL 0.3-0.8 [facility] Monocytes/100 WBC Auto (Bld) on 04-20-2024 Monocytes/100 WBC (Bld) 13.7 % High 1.7-12.0 [facility] Neutrophils Auto (Bld) [#/Vo l]on 04-20-2024 Neutrophils (Bld) [#/Vol] 2.5 10 3/uL 1.4-6.5 [facility] Neutrophils/100 WBC Auto (Bl d)on 04-20-2024 Neutrophils/100 WBC (Bld) 57.8 % 43.0-75.0 [facility] No Panel Informationon 04-20 Eosinophils # (Auto) 0.1 10 3/uL 0.0-0.[address] [facility] Folate 10.10 ng/mL 8.60-58.90 [facility] Immature Granulocyte # (Auto) 0.01 10 3/uL 0.00-0.03 [facility] [facility] Platelet mean volume Auto (B ld) [Entitic vol]on 04-20-2024 Platelet mean volume (Bld) [Entitic vol] 9.9 fL 9.5-13.5 [facility] Platelets Auto (Bld) [#/Vol] on 04-20-2024 Platelets (Bld) [#/Vol] 110 10 3/uL Low 150-450 [facility] RBC Auto (Bld) [#/Vol]on RBC (Bld) [#/Vol] 3.22 10 6/uL Low 4.70-6.10 [facility] Alanine aminotransferase [En zymatic activity/volume] in Serum or PlasmaOrdered By: Adilene Weinberg on 03-14-2024 ALT [Catalytic activity/Vol] 18 U/L Normal 7-52 [facility] Comment on above: Performed By: #### L DH, CBC, CMP #### [facility] [address] [place] [address] [place] Albumin [Mass/volume] in Ser um or Plasma by Bromocresol green (BCG) dye binding methoOrdered By: Adilene Weinberg on 03-14-2024 Albumin BCG dye [Mass/Vol] 4.3 g/dL 3.5-5.7 [facility] Alkaline phosphatase [Enzyma tic activity/volume] in Serum or PlasmaOrdered By: Adilene Weinberg on 03-14-2024 ALP [Catalytic activity/Vol] 85 U/L Normal 34-104 [facility] Comment on above: Performed By: #### L DH, CBC, CMP #### [facility] [address] [place] [address] [place] Aspartate aminotransferase [ Enzymatic activity/volume] in Serum or PlasmaOrdered By: Adilene Weinberg on 03-14-2024 AST [Catalytic activity/Vol] 17 U/L Normal 13-39 [facility] Comment on above: Performed By: #### L DH, CBC, CMP #### [address] Automated basophil %Ordered By: Adilene Weinberg on 03-14-2024 Basophils/100 WBC (Bld) 0.8 % Normal . [facility] Comment on above: Performed By: #### L DH, CBC, CMP #### [address] Automated basophil countOrde red By: Adilene Weinberg on 03-14-2024 Basophils (Bld) [#/Vol] 0.0 10*3/uL Normal 0.0-0.2 [facility] Comment on above: Result Comment: PERF ORMED BY: [place] [address] PATHOLOGIST DEVELOPMENT EDUCATOR NIYA BARRERA M.D. Performed By: #### L DH, CBC, CMP #### [address] Automated blood monocyte cou ntOrdered By: Adilene Weinberg on 03-14-2024 Monocytes (Bld) [#/Vol] 0.8 10*3/uL Normal 0.0-0.8 [facility] Comment on above: Performed By: #### L DH, CBC, CMP #### [address] Automated eosinophil %Ordere d By: Adilene Weinberg on 03-14-2024 Eosinophils/100 WBC (Bld) 2.1 % Normal . [facility] Comment on above: Performed By: #### L DH, CBC, CMP #### [address] Automated eosinophil countOr dered By: Adilene Weinberg on 03-14-2024 Eosinophils (Bld) [#/Vol] 0.1 10*3/uL Normal 0.0-0.45 [facility] Comment on above: Performed By: #### L DH, CBC, CMP #### [address] Automated monocyte %Ordered By: Adilene Weinberg on 03-14-2024 Monocytes/100 WBC (Bld) 12.8 % Normal . [facility] Comment on above: Performed By: #### L DH, CBC, CMP #### [address] Automated neutrophil %Ordere d By: Adilene Weinberg on 03-14-2024 Neutrophils/100 WBC (Bld) 72.6 % Normal . [facility] Comment on above: Performed By: #### L DH, CBC, CMP #### [address] Bilirubin.total [Mass/volume ] in Serum or PlasmaOrdered By: Adilene Weinberg on 03-14-2024 Bilirubin [Mass/Vol] 0.6 mg/dL Normal 0.3-1.0 [facility] Comment on above: Performed By: #### L DH, CBC, CMP #### [address] Calcium [Mass/volume] in Ser um or PlasmaOrdered By: Adilene Weinberg on 03-14-2024 Calcium [Mass/Vol] 9.4 mg/dL Normal 8.6-10.3 [facility] Comment on above: Performed By: #### L DH, CBC, CMP #### [address] Carbon dioxide, total [Moles /volume] in Serum or PlasmaOrdered By: Adilene Weinberg on 03-14-2024 CO2 [Moles/Vol] 31.8 mmol/L High 21.0-31.0 [facility] Comment on above: Performed By: #### L DH, CBC, CMP #### [address] Chloride [Moles/volume] in S boby or PlasmaOrdered By: Adilene Weinberg on 03-14-2024 Chloride [Moles/Vol] 105 mmol/L Normal 98-107 [facility] Comment on above: Performed By: #### L DH, CBC, CMP #### [address] Complete Blood Count Auto Di ffon 03-14-2024 Mean Corpuscular HGB Conc 34.0 g/dL Normal 32.5-35.6 [facility] Comment on above: Performed By: #### L DH, CBC, CMP #### [address] NRBC% 0.1 /100{WBC} Normal 0-0.5 [facility] Comment on above: Performed By: #### L DH, CBC, CMP #### [facility] [address] [place] [address] Comprehensive Metabolic Pane delbert 03-14-2024 Albumin [Mass/Vol] 4.3 g/dL Normal 3.5-5.7 [facility] Comment on above: Performed By: #### L DH, CBC, CMP #### [address] Creatinine Clr Calc Pharmacy 51.65 Normal [facility] Comment on above: Performed By: #### L DH, CBC, CMP #### [address] GFR/1.73 sq M.predicted MDRD (S/P/Bld) [Vol rate/Area] mL/min/{1.73_m2} Normal [facility] Comment on above: Performed By: #### L DH, CBC, CMP #### [address] Creatinine [Mass/volume] in Serum or PlasmaOrdered By: Adilene Weinberg on 03-14-2024 Creatinine [Mass/Vol] 1.06 mg/dL Normal 0.70-1.[address] [facility] Comment on above: Performed By: #### L DH, CBC, CMP #### [address] Erythrocyte distribution wid th [Ratio] by Automated countOrdered By: Adilene Weinberg on 03-14-2024 Erythrocyte distribution width (RBC) [Ratio] 15.4 % High 12.0-14.8 [facility] Comment on above: Performed By: #### L DH, CBC, CMP #### [address] [place] [address] [place] Erythrocytes [#/volume] in B lood by Automated countOrdered By: Adilene Weinberg on 03-14-2024 RBC (Bld) [#/Vol] 3.12 10*6/uL Low 3.90-5.60 [facility] Comment on above: Performed By: #### L DH, CBC, CMP #### [facility] [address] [place] [address] [place] Glucose [Mass/volume] in Ser um or PlasmaOrdered By: Adilene Weinberg on 03-14-2024 Glucose [Mass/Vol] 89 mg/dL Normal 70-100 [facility] Comment on above: ADA recommended refe rence rangeRandom Glucose Reference Range is dependent on time and content of last meal. Glucose of more than 200 mg/dL in a nonstressed, ambulatory subject supports the diagnosis of Diabetes Mellitus. Result Comment: [place] om Glucose Reference Range is dependent on time and content of last meal. Glucose of more than 200 mg/dL in a nonstressed, ambulatory subject supports the diagnosis of Diabetes Mellitus. ADA recommended reference range Performed By: #### L DH, CBC, CMP #### [address] Hematocrit [Volume Fraction] of Blood by Automated countOrdered By: Adilene Weinberg on 03-14-2024 Hematocrit (Bld) [Volume fraction] 28.8 % Low 38.8-50.0 [facility] Comment on above: Performed By: #### L DH, CBC, CMP #### [address] Hemoglobin [Mass/volume] in BloodOrdered By: Adilene Weinberg on 03-14-2024 Hemoglobin (Bld) [Mass/Vol] 9.8 g/dL Low 13.0-17.0 [facility] Comment on above: Performed By: #### L DH, CBC, CMP #### [address] LDH Lactate Dehydrogenaseon 03-14-2024 LDH Lactate Dehydrogenase 205 U/L Normal 140-271 [facility] Comment on above: Result Comment: PERF ORMED BY: [place] [address] PATHOLOGIST DEVELOPMENT EDUCATOR NIYA BARRERA M.D. Performed By: #### L DH, CBC, CMP ####[facility] [id number] [place] [address] [place] Lactate dehydrogenase [Enzym atic activity/volume] in Serum or Plasma by Lactate to pyOrdered By: Adilene Weinberg on 03-14-2024 LDH Lactate to pyruvate reaction [Catalytic activity/Vol] 205 U/L 140-271 [facility] Leukocytes [#/volume] correc bert for nucleated erythrocytes in Blood by Automated counOrdered By: Adilene Weinberg on 03-14-2024 WBC corrected for nucl RBC Auto (Bld) [#/Vol] 6.0 10*3/uL 4.1-10.5 [facility] Leukocytes [#/volume] in Blo od by Automated countOrdered By: Adilene Weinberg on 03-14-2024 WBC (Bld) [#/Vol] 6.0 10*3/uL Normal 4.1-10.5 [facility] Comment on above: Performed By: #### L DH, CBC, CMP #### [facility] [address] [place] [address] [place] Lymphocytes [#/volume] in Bl ood by Automated countOrdered By: Adilene Weinberg on 03-14-2024 Lymphocytes (Bld) [#/Vol] 0.7 10*3/uL Low 1.00-4.8 [facility] Comment on above: Performed By: #### L DH, CBC, CMP #### [facility] [address] [place] [address] [place] Lymphocytes/100 leukocytes i n Blood by Automated countOrdered By: Adilene Weinberg on 03-14-2024 Lymphocytes/100 WBC (Bld) 11.7 % Normal . [facility] Comment on above: Performed By: #### L DH, CBC, CMP #### [facility] [address] [place] [address] [place] MCH [Entitic mass] by Automa bert countOrdered By: Adilene Weinberg on 03-14-2024 MCH (RBC) [Entitic mass] 31.4 pg Normal 27.5-35.2 [facility] Comment on above: Performed By: #### L DH, CBC, CMP #### [facility] [address] [place] [address] MCHC Auto (RBC) [Mass/Vol]Or dered By: Adilene Weinberg on 03-14-2024 MCHC (RBC) [Mass/Vol] 34.0 g/dL 32.5-35.[address] [facility] MCV [Entitic volume] by Auto mated countOrdered By: Adilene Weinberg on 03-14-2024 MCV (RBC) [Entitic vol] 92.2 fL Normal 83.5-101 [facility] Comment on above: Performed By: #### L DH, CBC, CMP #### [address] Neutrophils [#/volume] in Bl ood by Automated countOrdered By: Adilene Weinberg on 03-14-2024 Neutrophils (Bld) [#/Vol] 4.3 10*3/uL Normal 1.8-7.7 [facility] Comment on above: Performed By: #### L DH, CBC, CMP #### [facility] [address] [place] [address] No Panel InformationOrdered By: Adilene Weinberg on 03-14-2024 Estimated GFR (CKD-EPI) > 60.0 mL/Min [facility] Creatinine Clearance (Chem 51.65 [facility] Nucleated erythrocytes [Pres ence] in Blood by Automated countOrdered By: Adilene Weinberg on 03-14-2024 Nucleated RBC Auto Ql (Bld) 0.1 /100{WBC} 0-0.5 [facility] Platelet mean volume [Entiti c volume] in Blood by Automated countOrdered By: Adilene Weinberg on 03-14-2024 Platelet mean volume (Bld) [Entitic vol] 8.1 fL Normal 6.6-10.1 [facility] Comment on above: Performed By: #### L DH, CBC, CMP #### [facility] [address] [place] [address] Platelets [#/volume] in Bloo d by Automated countOrdered By: Adilene Weinberg on 03-14-2024 Platelets (Bld) [#/Vol] 145 10*3/uL Low 150-450 [facility] Comment on above: Performed By: #### L DH, CBC, CMP #### [address] Potassium [Moles/volume] in Serum or PlasmaOrdered By: Adilene Weinberg on 03-14-2024 Potassium [Moles/Vol] 3.9 mmol/L Normal 3.5-5.[address] [facility] Comment on above: Performed By: #### L TYLER, CBC, CMP #### [address] Protein [Mass/volume] in Ser um or PlasmaOrdered By: Adilene Weinberg on 03-14-2024 Protein [Mass/Vol] 6.3 g/dL Low 6.4-8.9 [facility] Comment on above: Performed By: #### L TYLER, CBC, CMP #### [address] Serum globulin measurement b y calculation (mass/volume)Ordered By: Adilene Weinberg on 03-14-2024 Globulin (S) [Mass/Vol] 2.0 g/dL Normal [facility] Comment on above: Performed By: #### L TYLER, CBC, CMP #### [address] Serum or plasma albumin/glob ulin mass ratioOrdered By: Adilene Weinberg on 03-14-2024 Albumin/Globulin [Mass ratio] 2.2 {ratio} Normal [facility] Comment on above: Performed By: #### L DH, CBC, CMP #### [facility] [address] [place] [address] Serum or plasma anion gap de terminationOrdered By: Adilene Weinberg on 03-14-2024 Anion gap [Moles/Vol] 8.1 mmol/L Normal 6.0-15.[address] [facility] Comment on above: Performed By: #### L DH, CBC, CMP #### [facility] [address] [place] [address] Sodium [Moles/volume] in Ser um or PlasmaOrdered By: Adilene Weinberg on 03-14-2024 Sodium [Moles/Vol] 141 mmol/L Normal 136-145 [facility] Comment on above: Performed By: #### L DH, CBC, CMP #### [facility] [address] [place], [place] [id number] [facility] US extremity nonvascularon 0 03-14-2024 US extremity nonvascular [facility] [place] [address] [place] [address] Ultrasound Report Signed Patient: Nelly Hannon MR#: [id number] 0 : 1935 Acct:[id number] Age/Sex: 88 / M ADM Date: 03/14/24 Loc: Room: Type: [facility] Attending Dr: Adilene Weinberg MD Ordering [...] Silver Jr., D.OSantos03/14/2024 2:34 PM Dictation Location: [place] [address] Tech: Rachelle Mckenzie Transcribed By: PHYLLIS 03/14/24 1434 Dictated By: Festus Silver Jr, DO 03/14/24 1433 Signed By: 03/14/24 1434 Normal [facility] Urea nitrogen [Mass/volume] in Serum or PlasmaOrdered By: Adilene Weinberg on 03-14-2024 Urea nitrogen [Mass/Vol] 14 mg/dL Normal 7-25 [facility] Comment on above: Performed By: #### L DH, CBC, CMP #### [facility] [address] [place] [address] Alanine aminotransferase [En zymatic activity/volume] in Serum or PlasmaOrdered By: Michele Arteaga on 12-27-2023 ALT [Catalytic activity/Vol] 30 U/L Normal 7-52 [facility] Comment on above: Performed By: #### H EPATIC, ESR, CBC, CREAT #### [address] Albumin [Mass/volume] in Ser um or Plasma by Bromocresol green (BCG) dye binding methoOrdered By: Michele Arteaga on 12-27-2023 Albumin BCG dye [Mass/Vol] 4.5 g/dL 3.5-5.7 [facility] Alkaline phosphatase [Enzyma tic activity/volume] in Serum or PlasmaOrdered By: Michele Arteaga on 12-27-2023 ALP [Catalytic activity/Vol] 74 U/L Normal 34-104 [facility] Comment on above: Performed By: #### H EPATIC, ESR, CBC, CREAT #### [address] Aspartate aminotransferase [ Enzymatic activity/volume] in Serum or PlasmaOrdered By: Michele Arteaga on 12-27-2023 AST [Catalytic activity/Vol] 24 U/L Normal 13-39 [facility] Comment on above: Performed By: #### H EPATIC, ESR, CBC, CREAT #### [address] Automated basophil %Ordered By: Michele Arteaga on 12-27-2023 Basophils/100 WBC (Bld) 0.9 % Normal . [facility] Comment on above: Performed By: #### H EPATIC, ESR, CBC, CREAT #### [place] [address] [place] Automated basophil countOrde red By: Michele Arteaga on 12-27-2023 Basophils (Bld) [#/Vol] 0.0 10*3/uL Normal 0.0-0.2 [facility] Comment on above: Performed By: #### H EPATIC, ESR, CBC, CREAT #### [address] Automated blood monocyte cou ntOrdered By: Michele Arteaga on 12-27-2023 Monocytes (Bld) [#/Vol] 0.5 10*3/uL Normal 0.0-0.8 [facility] Comment on above: Performed By: #### H EPATIC, ESR, CBC, CREAT #### [address] Automated eosinophil %Ordere d By: Michele Arteaga on 12-27-2023 Eosinophils/100 WBC (Bld) 1.9 % Normal . [facility] Comment on above: Performed By: #### H EPATIC, ESR, CBC, CREAT #### [address] Automated eosinophil countOr dered By: Michele Arteaga on 12-27-2023 Eosinophils (Bld) [#/Vol] 0.1 10*3/uL Normal 0.0-0.45 [facility] Comment on above: Performed By: #### H EPATIC, ESR, CBC, CREAT #### [address] Automated monocyte %Ordered By: Michele Arteaga on 12-27-2023 Monocytes/100 WBC (Bld) 11.0 % Normal . [facility] Comment on above: Performed By: #### H EPATIC, ESR, CBC, CREAT #### [address] Automated neutrophil %Ordere d By: Michele Arteaga on 12-27-2023 Neutrophils/100 WBC (Bld) 69.1 % Normal . [facility] Comment on above: Performed By: #### H EPATIC, ESR, CBC, CREAT #### [address] Bilirubin.direct [Mass/volum e] in Serum or PlasmaOrdered By: Michele Arteaga on 12-27-2023 Bilirubin.direct [Mass/Vol] 0.20 mg/dL 0.03-0.18 [facility] Bilirubin.total [Mass/volume ] in Serum or PlasmaOrdered By: Michele Arteaga on 12-27-2023 Bilirubin [Mass/Vol] 0.7 mg/dL Normal 0.3-1.0 [facility] Comment on above: Performed By: #### H EPATIC, ESR, CBC, CREAT #### [address] Complete Blood Count Auto Di ffon 12-27-2023 Mean Corpuscular HGB Conc 32.9 g/dL Normal 32.5-35.6 [facility] Comment on above: Performed By: #### H EPATIC, ESR, CBC, CREAT #### [address] NRBC% 0.1 /100{WBC} Normal 0-0.5 [facility] Comment on above: Performed By: #### H EPATIC, ESR, CBC, CREAT #### [address] Creatinineon 12-27-2023 GFR/1.73 sq M.predicted MDRD (S/P/Bld) [Vol rate/Area] mL/min/{1.73_m2} Normal [facility] Comment on above: Result Comment: PERF ORMED BY: [place] [address] PATHOLOGIST DEVELOPMENT EDUCATOR NIYA BARRERA M.D. Performed By: #### H EPATIC, ESR, CBC, CREAT #### [address] Creatinine [Mass/volume] in Serum or PlasmaOrdered By: Michele Arteaga on 12-27-2023 Creatinine [Mass/Vol] 1.08 mg/dL Normal 0.70-1.[address] [facility] Comment on above: Performed By: #### H EPATIC, ESR, CBC, CREAT #### [address] Erythrocyte Sedimentation Ra shayy 12-27-2023 ESR (Bld) [Velocity] 11 mm/h Normal 0-19 [facility] Comment on above: Result Comment: PERF ORMED BY: [place] [address] PATHOLOGIST DEVELOPMENT EDUCATOR NIYA BARRERA M.D. Performed By: #### H EPATIC, ESR, CBC, CREAT #### [address] Erythrocyte distribution wid th [Ratio] by Automated countOrdered By: Michele Arteaga on 12-27-2023 Erythrocyte distribution width (RBC) [Ratio] 14.8 % Normal 12.0-14.8 [facility] Comment on above: Performed By: #### H EPATIC, ESR, CBC, CREAT #### [address] Erythrocyte sedimentation ra te by Photometric methodOrdered By: Michele Arteaga on 12-27-2023 ESR Photometric method (Bld) [Velocity] 11 mm/hr 0-19 [facility] Erythrocytes [#/volume] in B lood by Automated countOrdered By: Michele Arteaga on 12-27-2023 RBC (Bld) [#/Vol] 3.48 10*6/uL Low 3.90-5.60 [facility] Comment on above: Performed By: #### H EPATIC, ESR, CBC, CREAT #### [address] Hematocrit [Volume Fraction] of Blood by Automated countOrdered By: Michele Arteaga on 12-27-2023 Hematocrit (Bld) [Volume fraction] 32.1 % Low 38.8-50.0 [facility] Comment on above: Performed By: #### H EPATIC, ESR, CBC, CREAT #### [address] Hemoglobin [Mass/volume] in BloodOrdered By: Michele Arteaga on 12-27-2023 Hemoglobin (Bld) [Mass/Vol] 10.5 g/dL Low 13.0-17.0 [facility] Comment on above: Performed By: #### H EPATIC, ESR, CBC, CREAT #### [address] [place] [address] [place] Hepatic Panelon 12-27-2023 Albumin [Mass/Vol] 4.5 g/dL Normal 3.5-5.7 [facility] Comment on above: Performed By: #### H EPATIC, ESR, CBC, CREAT #### [address] Bilirubin,Indirect 0.5 mg/dL Normal [facility] Comment on above: Performed By: #### H EPATIC, ESR, CBC, CREAT #### [address] Bilirubin.indirect [Mass/Vol] 0.20 mg/dL High 0.03-0.18 [facility] Comment on above: Performed By: #### H EPATIC, ESR, CBC, CREAT #### [address] Leukocytes [#/volume] correc bert for nucleated erythrocytes in Blood by Automated counOrdered By: Michele Arteaga on 12-27-2023 WBC corrected for nucl RBC Auto (Bld) [#/Vol] 4.9 10*3/uL 4.1-10.5 [facility] Leukocytes [#/volume] in Blo od by Automated countOrdered By: Michele Arteaga on 12-27-2023 WBC (Bld) [#/Vol] 4.9 10*3/uL Normal 4.1-10.5 [facility] Comment on above: Performed By: #### H EPATIC, ESR, CBC, CREAT #### [address] Lymphocytes [#/volume] in Bl ood by Automated countOrdered By: Michele Arteaga on 12-27-2023 Lymphocytes (Bld) [#/Vol] 0.8 10*3/uL Low 1.00-4.8 [facility] Comment on above: Performed By: #### H EPATIC, ESR, CBC, CREAT #### [address] Lymphocytes/100 leukocytes i n Blood by Automated countOrdered By: Michele Arteaga on 12-27-2023 Lymphocytes/100 WBC (Bld) 17.1 % Normal . [facility] Comment on above: Performed By: #### H EPATIC, ESR, CBC, CREAT #### [facility] [address] MCH [Entitic mass] by Automa bert countOrdered By: Michele Arteaga on 12-27-2023 MCH (RBC) [Entitic mass] 30.3 pg Normal 27.5-35.2 [facility] Comment on above: Performed By: #### H EPATIC, ESR, CBC, CREAT #### [facility] [address] [place] [address] MCHC Auto (RBC) [Mass/Vol]Or dered By: Michele Arteaga on 12-27-2023 MCHC (RBC) [Mass/Vol] 32.9 g/dL 32.5-35.[address] [facility] MCV [Entitic volume] by Auto mated countOrdered By: Michele Arteaga on 12-27-2023 MCV (RBC) [Entitic vol] 92.2 fL Normal 83.5-101 [facility] Comment on above: Performed By: #### H EPATIC, ESR, CBC, CREAT #### [facility] [address] [place] [address] Neutrophils [#/volume] in Bl ood by Automated countOrdered By: Michele Arteaga on 12-27-2023 Neutrophils (Bld) [#/Vol] 3.4 10*3/uL Normal 1.8-7.7 [facility] Comment on above: Performed By: #### H EPATIC, ESR, CBC, CREAT #### [facility] [address] [place] [address] No Panel InformationOrdered By: Michele Arteaga on 12-27-2023 Estimated GFR (CKD-EPI) > 60.0 mL/Min [facility] Creatinine Clearance (Chem N/A [facility] Nucleated erythrocytes [Pres ence] in Blood by Automated countOrdered By: Michele Arteaga on 12-27-2023 Nucleated RBC Auto Ql (Bld) 0.1 /100{WBC} 0-0.5 [facility] Platelet mean volume [Entiti c volume] in Blood by Automated countOrdered By: Michele Arteaga on 12-27-2023 Platelet mean volume (Bld) [Entitic vol] 8.8 fL Normal 6.6-10.1 [facility] Comment on above: Performed By: #### H EPATIC, ESR, CBC, CREAT #### [facility] [address] [place] [address] Platelets [#/volume] in Bloo d by Automated countOrdered By: Michele Arteaga on 12-27-2023 Platelets (Bld) [#/Vol] 127 10*3/uL Low 150-450 [facility] Comment on above: Performed By: #### H EPATIC, ESR, CBC, CREAT #### [address] Protein [Mass/volume] in Ser um or PlasmaOrdered By: Michele Arteaga on 12-27-2023 Protein [Mass/Vol] 6.0 g/dL Low 6.4-8.9 [facility] Comment on above: Performed By: #### H EPATIC, ESR, CBC, CREAT #### [address] Serum globulin measurement b y calculation (mass/volume)Ordered By: Michele Arteaga on 12-27-2023 Globulin (S) [Mass/Vol] 1.5 g/dL Normal [facility] Comment on above: Performed By: #### H EPATIC, ESR, CBC, CREAT #### [address] Serum or plasma albumin/glob ulin mass ratioOrdered By: Michele Arteaga on 12-27-2023 Albumin/Globulin [Mass ratio] 3.0 {ratio} Normal [facility] Comment on above: Performed By: #### H EPATIC, ESR, CBC, CREAT #### [address] Serum or plasma non-glucuron idated bilirubin measurement (mass/volume)Ordered By: Michele Arteaga on 12-27-2023 Bilirubin.indirect [Mass/Vol] 0.5 mg/dL [facility] CT head/brain wo/w conon CT head/brain wo/w con [facility] [place] [address] CT Scan Report Signed Patient: Nelly Hannon MR#: [id number] 0 : 1935 Acct:[id number] Age/Sex: 88 / M ADM Date: 11/29/23 Loc: XT Room: Type: [facility] RCR Attending Dr: Adilene Weinberg MD Copies to: [...] Abdoul William M.D.11/29/2023 3:10 PM Dictation Location: [place] [id number] Transcribed By: [facility] 11/29/23 1510 Dictated By: Abdoul William DO 11/29/23 1506 Signed By: 11/29/23 1510 Normal [facility] ISTAT XRay CREon 11-29-2023 ISTAT GFR 53.501 Normal [facility] Comment on above: Result Comment: PERF ORMED BY: [address] [place] [address] PATHOLOGIST DEVELOPMENT EDUCATOR NIYA BARRERA M.D. Performed By: #### I SCRE ####[place] [id number] [facility] No Panel InformationOrdered By: Adilene Weinberg on 11-29-2023 Bedside Estimated GFR (eGFR) 53.501 [facility] Whole blood creatinine measu rementOrdered By: Adilene Weinberg on 11-29-2023 Creatinine [Mass/Vol] 1.3 mg/dL Normal 0.6-1.[address] [facility] Comment on above: ER/ESD physician is notified/shown all ISTAT results.Critical values may be confirmed by laboratory testing ifdeemed necessary by ER attending doctor. Result Comment: ER/E SD physician is notified/shown all ISTAT results. Critical values may be confirmed by laboratory testing if deemed necessary by ER attending doctor. Performed By: #### I SCRE ####[address] Capillary blood glucose kumar urement by glucometer (mass/volume)Ordered By: Elikn Holly on 11-19-2023 Glucose [Mass/Vol] 88 mg/dL Normal [facility] Comment on above: Random Glucose Refer ence Range is dependent on time and content of last meal. Glucose of more than 200 mg/dL in a nonstressed, ambulatory subject supports the diagnosis of Diabetes Mellitus. Result Comment: [place] om Glucose Reference Range is dependent on time and content of last meal. Glucose of more than 200 mg/dL in a nonstressed, ambulatory subject supports the diagnosis of Diabetes Mellitus. PERFORMED BY: [facility] [address] [place] [address] PATHOLOGIST DEVELOPMENT EDUCATOR NIYA BARRERA M.D. Performed By: #### G LULS #### Point of Care testing , PET tumor init tx strat wbon 11-19-2023 PET tumor init tx strat wb [facility] [place] [address] [place], [place] [id number] Nuclear Medicine Report Signed Patient: Nelly Hannon MR#: [id number] 0 : 1935 Acct:[id number] Age/Sex: 88 / M ADM Date: 11/19/23 Loc: Room: Type: [facility] Attending Dr: Elkin Holly MD Copies [...] Silver Jr., D.OSantos11/19/2023 1:01 PM Dictation Location: [place] [address] Transcribed By: [facility] 11/19/23 1301 Dictated By: Festus Silver Jr, DO 11/19/23 1251 Signed By: 11/19/23 1301 [facility]- DERMATOPATHOLOGY Pathology report.total SEE COMMENT Dermatopathology Case: [id number] Authorizing Provider: Elkin Holly MD Collected: 10/28/2023 1318 Ordering Location: [facility] Received: 10/28/2023 1346 OR Pathologist: Donna Blanchard [...] melanoma of forehead (CMS/HCC) C43.39 Specimen ID: [id number], [id number] Specimen Source: SKIN WIDE EXCISION Site/Location: WIDE LOCAL EXCISION RIGHT SCALP, LONG STITCH LATERAL AT 9 OCLOCK AND SHORT STITCH SUPERIOR AT 12 OCLOCK Collection Comments: Specimen ID: [id number], [id number] Specimen Source: SENTINEL LYMPH NODE OTHER Site/Location: SENTINEL LYMPH NODE #1 RIGHT INTRAPAROTID Collection Comments: Specimen ID: [id number], [id number] Specimen Source: SENTINEL LYMPH NODE OTHER Site/Location: [...] determined by the Department of Pathology at [facility]. The FDA does not require this [...] serially sectioned an (more content not included)... 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 COMPARISON: None. ACCESSION NUMBER(S): [id number] ORDERING CLINICIAN: ELKIN HOLLY TECHNIQUE: DIVISION OF [...] localization to the right pre-auricular lymph node. Supervisor [employer] localizing images were sent to PACS. I personally reviewed the images/study and I agree with the findings as stated by Nuclear Medicine fellow Ruthann Lee MD. This study was interpreted at [place], [place]. MACRO: None Signed by: Michele Sweeney 10/28/2023 12:48 PM Dictation workstation: [id number] [facility] NM Lymphatic vessels Views W radionuclide intra lymphaticon 10-28-2023 Successful sentinel lymph node localization to the right pre-auricular lymph node. Supervisor [employer] localizing images were sent to PACS. I personally reviewed the images/study and I agree with the findings as stated by Nuclear Medicine fellow Ruthann Lee MD. This study was interpreted at [place], [place]. 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 COMPARISON: None. ACCESSION NUMBER(S): [id number] ORDERING CLINICIAN: ELKIN HOLLY TECHNIQUE: DIVISION OF [...] and localized images were sent to PACS. 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 COMPARISON: None. ACCESSION NUMBER(S): [id number] ORDERING CLINICIAN: ELKIN HOLLY TECHNIQUE: DIVISION OF [...] localization to the right pre-auricular lymph node. Supervisor [employer] localizing images were sent to PACS. I personally reviewed the images/study and I agree with the findings as stated by Nuclear Medicine fellow Ruthann Lee MD. This study was interpreted at [facility], [place], [place]. 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 COMPARISON: None. ACCESSION NUMBER(S): [id number] ORDERING CLINICIAN: ELKIN HOLLY TECHNIQUE: DIVISION OF [...] localization to the right pre-auricular lymph node. Supervisor [employer] localizing images were sent to PACS. I personally reviewed the images/study and I agree with the findings as stated by Nuclear Medicine fellow Ruthann Lee MD. This study was interpreted at [facility], [place], [place]. MACRO: None Signed by: Michele Sweeney 10/28/2023 12:48 PM Dictation workstation: [id number] Normal [facility] Office Visiton 10-26-2023 Follow-up visit [id number] Nelly Hannon 1935 M Date Provider Department Center 10/26/2023 Blanca-YULIANA AJ CARD [facility] Family History Problem Relation Age of Onset Other Mother Coronary artery disease Father Family Status - Relation Status Age at Mother Father Level of Service:17913 CO OFFICE/OUTPATIENT ESTABLISHED MOD MDM 30 MIN Normal [facility] BRAF gene Sequencing Doc (Ca ncer specimen)on 09-23-2023 BRAF EXON 15 RESULTS SEE COMMENT [facility] Comment on above: Order Comment: Mater ials Received: 4 slides, [facility]erm[facility], [id number] (BX: 08/31/23) Result Comment: Spec imen: FFPE, [id number] Estimated Tumor Content: 30% GENOMIC FINDINGS: None [...] analytical performance characteristics have been determined by [facility]. This test has not been cleared or approved by the FDA; however, the FDA has determined that such approval is not necessary. The [facility] is certified under the Clinical Laboratory Improvement Amendments of 1988 (CLIA-88) as qualified to perform high complexity testing. Performed By: #### 8 3061-2 #### DEANGELO CERVANTES ([id number]) [facility] ([facility]) [address] [place] [address] ELECTRONICALLY SIGNED BY Deangelo Cervantes MD PhD [facility] Comment on above: Order Comment: Mater ials Received: 4 slides, Dermatopathology [facility], [id number] (BX: 08/31/23) Performed By: #### 8 3061-2 #### DEANGELO CERVANTES ([id number]) TRANSLATIONAL [facility]OR[facility]ORY ([facility]) [address] [place] [address] Surgical pathology studyon 1 11-24-2022 Surgical pathology study Pathology report.total SEE COMMENT Dermatopathology Report Case: [id number] Authorizing Provider: Elkin Holly MD Collected: 09/23/2023 [facility] Ordering Location: [facility] Received: 09/23/2023 [facility] Pathologist: Donna Blanchard MD Specimen: OUTSIDE BLOCK(S)/SLIDE(S), 4 SLIDES, [facility], [id number] (BX: 08/31/23) Path report.final diagnosis SEE COMMENT 4 SLIDES, [facility]Y [facility], [id number] A & B (BX 08/31/23). A. SKIN, [...] Received for consultation from Dermatopathology [facility] are four slides labeled [id number] (Bx: 08/31/23) along with the corresponding pathology [...] is mild, and mitoses are rare. Normal [facility] Comment on above: Order Comment: Mater ials Received: 4 slides, Dermatopathology [facility], [id number] (BX: 08/31/23) Alanine aminotransferase [En zymatic activity/volume] in Serum or PlasmaOrdered By: Michele Arteaga on 07-19-2023 ALT [Catalytic activity/Vol] 32 U/L Normal 7-52 [facility] Comment on above: Performed By: #### E SR, CREAT, HEPATIC, CBC ####[facility] [id number] Albumin [Mass/volume] in Ser um or Plasma by Bromocresol green (BCG) dye binding methoOrdered By: Michele Arteaga on 07-19-2023 Albumin BCG dye [Mass/Vol] 4.1 g/dL 3.5-5.7 [facility] Alkaline phosphatase [Enzyma tic activity/volume] in Serum or PlasmaOrdered By: Michele Arteaga on 07-19-2023 ALP [Catalytic activity/Vol] 63 U/L Normal 34-104 [facility] Comment on above: Performed By: #### E SR, CREAT, HEPATIC, CBC ####[address] Aspartate aminotransferase [ Enzymatic activity/volume] in Serum or PlasmaOrdered By: Michele Arteaga on 07-19-2023 AST [Catalytic activity/Vol] 22 U/L Normal 13-39 [facility] Comment on above: Performed By: #### E SR, CREAT, HEPATIC, CBC ####[address] Automated basophil %Ordered By: Michele Arteaga on 07-19-2023 Basophils/100 WBC (Bld) 0.7 % Normal . [facility] Comment on above: Performed By: #### E SR, CREAT, HEPATIC, CBC ####[address] Automated basophil countOrde red By: Michele Arteaga on 07-19-2023 Basophils (Bld) [#/Vol] 0.0 10*3/uL Normal 0.0-0.2 [facility] Comment on above: Performed By: #### E SR, CREAT, HEPATIC, CBC ####[address] Automated blood monocyte cou ntOrdered By: Michele Arteaga on 07-19-2023 Monocytes (Bld) [#/Vol] 0.5 10*3/uL Normal 0.0-0.8 [facility] Comment on above: Performed By: #### E SR, CREAT, HEPATIC, CBC ####[address] Automated eosinophil %Ordere d By: Michele Arteaga on 07-19-2023 Eosinophils/100 WBC (Bld) 0.9 % Normal . [facility] Comment on above: Performed By: #### E SR, CREAT, HEPATIC, CBC ####[address] Automated eosinophil countOr dered By: Michele Arteaga on 07-19-2023 Eosinophils (Bld) [#/Vol] 0.0 10*3/uL Normal 0.0-0.45 [facility] Comment on above: Performed By: #### E SR, CREAT, HEPATIC, CBC ####[address] Automated monocyte %Ordered By: Michele Arteaga on 07-19-2023 Monocytes/100 WBC (Bld) 11.2 % Normal . [facility] Comment on above: Performed By: #### E SR, CREAT, HEPATIC, CBC ####[address] Automated neutrophil %Ordere d By: Michele Arteaga on 07-19-2023 Neutrophils/100 WBC (Bld) 71.1 % Normal . [facility] Comment on above: Performed By: #### E SR, CREAT, HEPATIC, CBC ####[place] [id number] [facility] Bilirubin.direct [Mass/volum e] in Serum or PlasmaOrdered By: Michele Arteaga on 07-19-2023 Bilirubin.direct [Mass/Vol] 0.10 mg/dL 0.03-0.18 [facility] Bilirubin.total [Mass/volume ] in Serum or PlasmaOrdered By: Michele Arteaga on 07-19-2023 Bilirubin [Mass/Vol] 0.6 mg/dL Normal 0.3-1.0 [facility] Comment on above: Performed By: #### E SR, CREAT, HEPATIC, CBC ####[place] [id number] [facility] Complete Blood Count Auto Di ffon 07-19-2023 Mean Corpuscular HGB Conc 34.4 g/dL Normal 32.5-35.6 [facility] Comment on above: Performed By: #### E SR, CREAT, HEPATIC, CBC ####[place] [id number] [place] [id number] [facility] NRBC% 0.2 /100{WBC} Normal 0-0.5 [facility] Comment on above: Performed By: #### E SR, CREAT, HEPATIC, CBC ####[place] [id number] [facility] Creatinineon 07-19-2023 GFR/1.73 sq M.predicted MDRD (S/P/Bld) [Vol rate/Area] mL/min/{1.73_m2} Normal [facility] Comment on above: Result Comment: PERF ORMED BY: [address] [place] [address] PATHOLOGIST DEVELOPMENT EDUCATOR NIYA BARRERA M.D. Performed By: #### E SR, CREAT, HEPATIC, CBC ####[place] [id number] [facility] Creatinine [Mass/volume] in Serum or PlasmaOrdered By: Michele Arteaga on 07-19-2023 Creatinine [Mass/Vol] 1.09 mg/dL Normal 0.70-1.[address] [facility] Comment on above: Performed By: #### E SR, CREAT, HEPATIC, CBC ####[place] [id number] [facility] Erythrocyte Sedimentation Ra shayy 07-19-2023 ESR (Bld) [Velocity] 5 mm/h Normal 0-19 [facility] Comment on above: Result Comment: PERF ORMED BY: [facility] [address] [place] [address] PATHOLOGIST DEVELOPMENT EDUCATOR NIYA BARRERA M.D. Performed By: #### E SR, CREAT, HEPATIC, CBC ####[place] [id number] [facility] Erythrocyte distribution wid th [Ratio] by Automated countOrdered By: Michele Arteaga on 07-19-2023 Erythrocyte distribution width (RBC) [Ratio] 14.6 % Normal 12.0-14.8 [facility] Comment on above: Performed By: #### E SR, CREMILLI, HEPATIC, CBC ####[address] Erythrocyte sedimentation ra te by Photometric methodOrdered By: Michele Arteaga on 07-19-2023 ESR Photometric method (Bld) [Velocity] 5 mm/hr 0-19 [facility] Erythrocytes [#/volume] in B lood by Automated countOrdered By: Michele Arteaga on 07-19-2023 RBC (Bld) [#/Vol] 3.40 10*6/uL Low 3.90-5.60 [facility] Comment on above: Performed By: #### E , CREAT, HEPATIC, CBC ####[address] Hematocrit [Volume Fraction] of Blood by Automated countOrdered By: Michele Arteaga on 07-19-2023 Hematocrit (Bld) [Volume fraction] 31.9 % Low 38.8-50.0 [facility] Comment on above: Performed By: #### Shana SR, CREMILLI, HEPATIC, CBC ####[place] [id number] [facility] Hemoglobin [Mass/volume] in BloodOrdered By: Michele Arteaga on 07-19-2023 Hemoglobin (Bld) [Mass/Vol] 11.0 g/dL Low 13.0-17.0 [facility] Comment on above: Performed By: #### E SR, CREAT, HEPATIC, CBC ####[place] [id number] [facility] Hepatic Panelon 07-19-2023 Albumin [Mass/Vol] 4.1 g/dL Normal 3.5-5.7 [facility] Comment on above: Performed By: #### E SR, CREAT, HEPATIC, CBC ####[place] [id number] [facility] Bilirubin,Indirect 0.5 mg/dL Normal [facility] Comment on above: Performed By: #### E SR, CREAT, HEPATIC, CBC ####[address] Bilirubin.indirect [Mass/Vol] 0.10 mg/dL Normal 0.03-0.18 [facility] Comment on above: Performed By: #### E SR, CREAT, HEPATIC, CBC ####[address] Leukocytes [#/volume] correc bert for nucleated erythrocytes in Blood by Automated counOrdered By: Michele Arteaga on 07-19-2023 WBC corrected for nucl RBC Auto (Bld) [#/Vol] 4.2 10*3/uL 4.1-10.5 [facility] Leukocytes [#/volume] in Blo od by Automated countOrdered By: Michele Arteaga on 07-19-2023 WBC (Bld) [#/Vol] 4.2 10*3/uL Normal 4.1-10.5 [facility] Comment on above: Performed By: #### E SR, CREAT, HEPATIC, CBC ####[address] Lymphocytes [#/volume] in Bl ood by Automated countOrdered By: Michele Arteaga on 07-19-2023 Lymphocytes (Bld) [#/Vol] 0.7 10*3/uL Low 1.00-4.8 [facility] Comment on above: Performed By: #### E SR, CREAT, HEPATIC, CBC ####[place] [id number] [facility] Lymphocytes/100 leukocytes i n Blood by Automated countOrdered By: Michele Arteaga on 07-19-2023 Lymphocytes/100 WBC (Bld) 16.1 % Normal . [facility] Comment on above: Performed By: #### E SR, CREAT, HEPATIC, CBC ####[place] [id number] [facility] MCH [Entitic mass] by Automa bert countOrdered By: Michele Arteaga on 07-19-2023 MCH (RBC) [Entitic mass] 32.2 pg Normal 27.5-35.2 [facility] Comment on above: Performed By: #### E NATALY PARKER HEPATIC, CBC ####[address] MCHC Auto (RBC) [Mass/Vol]Or dered By: Michele Arteaga on 07-19-2023 MCHC (RBC) [Mass/Vol] 34.4 g/dL 32.5-35.[address] [facility] MCV [Entitic volume] by Auto mated countOrdered By: Michele Arteaga on 07-19-2023 MCV (RBC) [Entitic vol] 93.7 fL Normal 83.5-101 [facility] Comment on above: Performed By: #### E SR CREMILLI HEPATIC, CBC ####[address] Neutrophils [#/volume] in Bl ood by Automated countOrdered By: Michele Arteaga on 07-19-2023 Neutrophils (Bld) [#/Vol] 3.0 10*3/uL Normal 1.8-7.7 [facility] Comment on above: Performed By: #### E NATALY PARKER HEPATIC, CBC ####[address] No Panel InformationOrdered By: Michele Arteaga on 07-19-2023 Estimated GFR (CKD-EPI) > 60.0 mL/Min [facility] Creatinine Clearance (Chem N/A [facility] Nucleated erythrocytes [Pres ence] in Blood by Automated countOrdered By: Michele Arteaga on 07-19-2023 Nucleated RBC Auto Ql (Bld) 0.2 /100{WBC} 0-0.5 [facility] Platelet mean volume [Entiti c volume] in Blood by Automated countOrdered By: Michele Arteaga on 07-19-2023 Platelet mean volume (Bld) [Entitic vol] 8.5 fL Normal 6.6-10.1 [facility] Comment on above: Performed By: #### E SR, CREMILLI HEPATIC, CBC ####[place] [id number] Platelets [#/volume] in Bloo d by Automated countOrdered By: Michele Arteaga on 07-19-2023 Platelets (Bld) [#/Vol] 123 10*3/uL Low 150-450 [facility] Comment on above: Performed By: #### E SR, CREAT, HEPATIC, CBC ####[address] Protein [Mass/volume] in Ser um or PlasmaOrdered By: Michele Arteaga on 07-19-2023 Protein [Mass/Vol] 5.8 g/dL Low 6.4-8.9 [facility] Comment on above: Performed By: #### Shana SR, CREAT, HEPATIC, CBC ####[address] Serum globulin measurement b y calculation (mass/volume)Ordered By: Michele Arteaga on 07-19-2023 Globulin (S) [Mass/Vol] 1.7 g/dL Normal [facility] Comment on above: Performed By: #### Shana SR, CREAT, HEPATIC, CBC ####[address] Serum or plasma albumin/glob ulin mass ratioOrdered By: Michele Arteaga on 07-19-2023 Albumin/Globulin [Mass ratio] 2.4 {ratio} Normal [facility] Comment on above: Performed By: #### E SR, CREAT, HEPATIC, CBC ####[place] [id number] [facility] Serum or plasma non-glucuron idated bilirubin measurement (mass/volume)Ordered By: Michele Arteaga on 07-19-2023 Bilirubin.indirect [Mass/Vol] 0.5 mg/dL [facility] Alanine aminotransferase [En zymatic activity/volume] in Serum or PlasmaOrdered By: Michele Arteaga on 03-23-2023 ALT [Catalytic activity/Vol] 23 U/L 7-52 [facility] Albumin [Mass/volume] in Ser um or Plasma by Bromocresol green (BCG) dye binding methoOrdered By: Michele Arteaga on 03-23-2023 Albumin BCG dye [Mass/Vol] 4.4 g/dL 3.5-5.7 [facility] Alkaline phosphatase [Enzyma tic activity/volume] in Serum or PlasmaOrdered By: Michele Arteaga on 03-23-2023 ALP [Catalytic activity/Vol] 88 U/L 34-104 [facility] Aspartate aminotransferase [ Enzymatic activity/volume] in Serum or PlasmaOrdered By: Michele Arteaga on 03-23-2023 AST [Catalytic activity/Vol] 20 U/L 13-39 [facility] Basophils Auto (Bld) [#/Vol] Ordered By: Michele Arteaga on 03-23-2023 Basophils (Bld) [#/Vol] 0.0 10*3/uL 0.0-0.2 [facility] Basophils/100 WBC Auto (Bld) Ordered By: Michele Arteaga on 03-23-2023 Basophils/100 WBC (Bld) 0.8 % . [facility] Bilirubin.direct [Mass/volum e] in Serum or PlasmaOrdered By: Michele Arteaga on 03-23-2023 Bilirubin.direct [Mass/Vol] 0.20 mg/dL 0.03-0.18 [facility] Bilirubin.total [Mass/volume ] in Serum or PlasmaOrdered By: Michele Arteaga on 03-23-2023 Bilirubin [Mass/Vol] 0.7 mg/dL 0.3-1.0 [facility] Creatinine [Mass/volume] in Serum or PlasmaOrdered By: Michele Arteaga on 03-23-2023 Creatinine [Mass/Vol] 1.10 mg/dL 0.70-1.[address] [facility] Eosinophils Auto (Bld) [#/Vo l]Ordered By: Michele Arteaga on 03-23-2023 Eosinophils (Bld) [#/Vol] 0.1 10*3/uL 0.0-0.45 [facility] Eosinophils/100 WBC Auto (Bl d)Ordered By: Michele Arteaga on 03-23-2023 Eosinophils/100 WBC (Bld) 1.3 % . [facility] Erythrocyte distribution wid th Auto (RBC) [Ratio]Ordered By: Michele Arteaga on 03-23-2023 Erythrocyte distribution width (RBC) [Ratio] 14.8 % 12.0-14.8 [facility] Erythrocyte sedimentation ra te by Photometric methodOrdered By: Michele Arteaga on 03-23-2023 ESR Photometric method (Bld) [Velocity] 21 mm/hr 0-19 [facility] Globulin Calc (S) [Mass/Vol] Ordered By: Michele Arteaga on 03-23-2023 Globulin (S) [Mass/Vol] 1.8 g/dL [facility] Hematocrit Auto (Bld) [Volum e fraction]Ordered By: Michele Arteaga on 03-23-2023 Hematocrit (Bld) [Volume fraction] 30.1 % 38.8-50.0 [facility] Hemoglobin [Mass/volume] in BloodOrdered By: Michele Arteaga on 03-23-2023 Hemoglobin (Bld) [Mass/Vol] 10.3 g/dL 13.0-17.0 [facility] Leukocytes [#/volume] correc bert for nucleated erythrocytes in Blood by Automated counOrdered By: Mcihele Arteaga on 03-23-2023 WBC corrected for nucl RBC Auto (Bld) [#/Vol] 5.9 10*3/uL 4.1-10.5 [facility] Lymphocytes Auto (Bld) [#/Vo l]Ordered By: Michele Arteaga on 03-23-2023 Lymphocytes (Bld) [#/Vol] 0.7 10*3/uL 1.00-4.8 [facility] Lymphocytes/100 WBC Auto (Bl d)Ordered By: Michele Arteaga on 03-23-2023 Lymphocytes/100 WBC (Bld) 12.4 % . [facility] MCH Auto (RBC) [Entitic mass ]Ordered By: Michele Arteaga on 03-23-2023 MCH (RBC) [Entitic mass] 32.1 pg 27.5-35.2 [facility] MCHC Auto (RBC) [Mass/Vol]Or dered By: Michele Arteaga on 03-23-2023 MCHC (RBC) [Mass/Vol] 34.2 g/dL 32.5-35.[address] [facility] MCV Auto (RBC) [Entitic vol] Ordered By: Michele Arteaga on 03-23-2023 MCV (RBC) [Entitic vol] 93.8 fL 83.5-101 [facility] Monocytes Auto (Bld) [#/Vol] Ordered By: Michele Arteaga on 03-23-2023 Monocytes (Bld) [#/Vol] 0.7 10*3/uL 0.0-0.8 [facility] Monocytes/100 WBC Auto (Bld) Ordered By: Michele Arteaga on 03-23-2023 Monocytes/100 WBC (Bld) 12.3 % . [facility] Neutrophils Auto (Bld) [#/Vo l]Ordered By: Michele Arteaga on 03-23-2023 Neutrophils (Bld) [#/Vol] 4.3 10*3/uL 1.8-7.7 [facility] Neutrophils/100 WBC Auto (Bl d)Ordered By: Michele Arteaga on 03-23-2023 Neutrophils/100 WBC (Bld) 73.2 % . [facility] No Panel InformationOrdered By: Michele Arteaga on 03-23-2023 Estimated GFR (CKD-EPI) > 60.0 mL/Min [facility] Pharmacy Creatinine Clearance (Chem N/A [facility] Nucleated erythrocytes [Pres ence] in Blood by Automated countOrdered By: Michele Arteaga on 03-23-2023 Nucleated RBC Auto Ql (Bld) 0.1 /100{WBC} 0-0.5 [facility] Platelet mean volume Auto (B ld) [Entitic vol]Ordered By: Michele Arteaga on 03-23-2023 Platelet mean volume (Bld) [Entitic vol] 8.2 fL 6.6-10.1 [facility] Platelets Auto (Bld) [#/Vol] Ordered By: Michele Arteaga on 03-23-2023 Platelets (Bld) [#/Vol] 162 10*3/uL 150-450 [facility] Protein [Mass/volume] in Ser um or PlasmaOrdered By: Michele Arteaga on 03-23-2023 Protein [Mass/Vol] 6.2 g/dL 6.4-8.9 [facility] RBC Auto (Bld) [#/Vol]Ordere d By: Michele Alvarezrenan on 03-23-2023 RBC (Bld) [#/Vol] 3.21 10*6/uL 3.90-5.60 [facility] Serum or plasma albumin/glob ulin mass ratioOrdered By: Michele Chandler on 03-23-2023 Albumin/Globulin [Mass ratio] 2.4 {ratio} [facility] Serum or plasma non-glucuron idated bilirubin measurement (mass/volume)Ordered By: Michele Arteaga on 03-23-2023 Bilirubin.indirect [Mass/Vol] 0.5 mg/dL [facility] WBC Auto (Bld) [#/Vol]Ordere d By: Michele Alvarezrenan on 03-23-2023 WBC (Bld) [#/Vol] 5.9 10*3/uL 4.1-10.5 [facility] Covid-19 PCR ([facility])on 01-03 SARS-CoV-2 (COVID-19) RNA JOSEMANUEL+probe Ql (Unsp spec) Not detected Normal NOT DETECTED [facility] Comment on above: Result Comment: This test is not yet approved or cleared by the [place] FDA. When there are no FDA-approved or cleared tests available, and other criteria are met, FDA can make tests available under an emergency access mechanism called an Emergency Use Authorization (EUA). The EUA for this test is supported by the [place] of Health and Human Service's (HHS's) declaration [...] SARS-CoV-2. Performed By: #### C VDTB #### [facility] [address] [address] [address] Robb Martin SYMPTOMATIC COVID-19 ANTIGEN on 01-22-2023 EUA Statement SEE BELOW Normal [facility] Comment on above: Result Comment: [...] sooner. Performed By: #### C VDAGS #### [facility] [address] [place] [address] Dr. Robb Martin SARS-CoV-2 (COVID-19) RNA JOSEMANUEL+probe Ql (Unsp spec) Negative Normal NEGATIVE [facility] Comment on above: Performed By: #### C VDAGS #### [facility] [address] [address] [address] Robb Martin Albumin [Mass/volume] in Ser um or PlasmaOrdered By: Michele Arteaga on 11-19-2022 Albumin [Mass/Vol] 4.1 g/dL 3.2-5.5 [facility] Basophils Auto (Bld) [#/Vol] Ordered By: Michele Arteaga on 11-19-2022 Basophils (Bld) [#/Vol] 0.1 10*3/uL 0.0-0.2 [facility] Basophils/100 WBC Auto (Bld) Ordered By: Michele Arteaga on 11-19-2022 Basophils/100 WBC (Bld) 1.0 % . [facility] Creatinine and Glomerular fi ltration rate.predicted panel (S/P/Bld)Ordered By: Michele Arteaga on 11-19-2022 Creatinine [Mass/Vol] 1.11 mg/dL 0.64-1.[address] [facility] Direct bilirubin measurement Ordered By: Michele Arteaga on 11-19-2022 Bilirubin.direct [Mass/Vol] 0.2 mg/dL 0.0-0.4 [facility] Eosinophils Auto (Bld) [#/Vo l]Ordered By: Michele Arteaga on 11-19-2022 Eosinophils (Bld) [#/Vol] 0.1 10*3/uL 0.0-0.45 [facility] Eosinophils/100 WBC Auto (Bl d)Ordered By: Michele Arteaga on 11-19-2022 Eosinophils/100 WBC (Bld) 1.6 % . [facility] Erythrocyte distribution wid th Auto (RBC) [Ratio]Ordered By: Michele Arteaga on 11-19-2022 Erythrocyte distribution width (RBC) [Ratio] 14.1 % 12.0-14.8 [facility] Erythrocyte sedimentation ra te by Photometric methodOrdered By: Michele Arteaga on 11-19-2022 ESR Photometric method (Bld) [Velocity] 14 mm/hr 0-19 [facility] Estimated glomerular filtrat ion rate (GFR) non- AmericanOrdered By: Michele Arteaga on 11-19-2022 GFR/1.73 sq M.predicted among non-blacks MDRD (S/P/Bld) [Vol rate/Area] > 60 mL/Min [facility] Globulin Calc (S) [Mass/Vol] Ordered By: Michele Arteaga on 11-19-2022 Globulin (S) [Mass/Vol] 2.1 g/dL [facility] Hematocrit Auto (Bld) [Volum e fraction]Ordered By: Michele Arteaga on 11-19-2022 Hematocrit (Bld) [Volume fraction] 34.7 % 38.8-50.0 [facility] Hemoglobin [Mass/volume] in BloodOrdered By: Michele Arteaga on 11-19-2022 Hemoglobin (Bld) [Mass/Vol] 11.4 g/dL 13.0-17.0 [facility] Leukocytes [#/volume] correc bert for nucleated erythrocytes in Blood by Automated counOrdered By: Michele Arteaga on 11-19-2022 WBC corrected for nucl RBC Auto (Bld) [#/Vol] 4.8 10*3/uL 4.1-10.5 [facility] Lymphocytes Auto (Bld) [#/Vo l]Ordered By: Michele Arteaga on 11-19-2022 Lymphocytes (Bld) [#/Vol] 0.7 10*3/uL 1.00-4.8 [facility] Lymphocytes/100 WBC Auto (Bl d)Ordered By: Michele Arteaga on 11-19-2022 Lymphocytes/100 WBC (Bld) 15.2 % . [facility] MCH Auto (RBC) [Entitic mass ]Ordered By: Michele Arteaga on 11-19-2022 MCH (RBC) [Entitic mass] 30.8 pg 27.5-35.2 [facility] MCHC Auto (RBC) [Mass/Vol]Or dered By: Michele Arteaga on 11-19-2022 MCHC (RBC) [Mass/Vol] 32.7 g/dL 32.5-35.6 [facility] MCV Auto (RBC) [Entitic vol] Ordered By: Michele Arteaga on 11-19-2022 MCV (RBC) [Entitic vol] 94.2 fL 83.5-101 [facility] Monocytes Auto (Bld) [#/Vol] Ordered By: Michele Arteaga on 11-19-2022 Monocytes (Bld) [#/Vol] 0.6 10*3/uL 0.0-0.8 [facility] Monocytes/100 WBC Auto (Bld) Ordered By: Michele Arteaga on 11-19-2022 Monocytes/100 WBC (Bld) 11.5 % . [facility] Neutrophils Auto (Bld) [#/Vo l]Ordered By: Michele Arteaga on 11-19-2022 Neutrophils (Bld) [#/Vol] 3.4 10*3/uL 1.8-7.7 [facility] Neutrophils/100 WBC Auto (Bl d)Ordered By: Michele Arteaga on 11-19-2022 Neutrophils/100 WBC (Bld) 70.7 % . [facility] No Panel InformationOrdered By: Michele Arteaga on 11-19-2022 Estimated GFR () > 60 mL/Min [facility] Comment on above: GFR estimated refere nce range: According to KDOQI guidelines, <60 ml/min/1.73m2 is sufficient to diagnose a patient with chronic kidney disease. Pharmacy Creatinine Clearance (Chem N/A [facility] Nucleated erythrocytes [Pres ence] in Blood by Automated countOrdered By: Michele Arteaga on 11-19-2022 Nucleated RBC Auto Ql (Bld) 0.0 /100{WBC} 0-0.5 [facility] Platelet mean volume Auto (B ld) [Entitic vol]Ordered By: Michele Arteaga on 11-19-2022 Platelet mean volume (Bld) [Entitic vol] 9.3 fL 6.6-10.1 [facility] Platelets Auto (Bld) [#/Vol] Ordered By: Michele Arteaga on 11-19-2022 Platelets (Bld) [#/Vol] 122 10*3/uL 150-450 [facility] Protein [Mass/volume] in Ser um or PlasmaOrdered By: Michele Arteaga on 11-19-2022 Protein [Mass/Vol] 6.2 g/dL 6.1-7.9 [facility] RBC Auto (Bld) [#/Vol]Ordere d By: Michele Arteaga on 11-19-2022 RBC (Bld) [#/Vol] 3.69 10*6/uL 3.90-5.60 [facility] Serum or plasma alanine ervin otransferase measurement without P-5'-P (enzymatic activiOrdered By: Michele Arteaga on 11-19-2022 ALT No additional P-5'-P [Catalytic activity/Vol] 33 U/L 10-60 [facility] Serum or plasma albumin/glob ulin mass ratioOrdered By: Michele Arteaga on 11-19-2022 Albumin/Globulin [Mass ratio] 2.0 {ratio} [facility] Serum or plasma alkaline daniel sphatase measurement (enzymatic activity/volume)Ordered By: Michele Arteaga on 11-19-2022 ALP [Catalytic activity/Vol] 78 U/L 32-92 [facility] Serum or plasma aspartate am inotransferase measurement (enzymatic activity/volume)Ordered By: Michele Arteaga on 11-19-2022 AST [Catalytic activity/Vol] 26 U/L 10-42 [facility] Serum or plasma non-glucuron idated bilirubin measurement (mass/volume)Ordered By: Michele Arteaga on 11-19-2022 Bilirubin.indirect [Mass/Vol] 0.4 mg/dL [facility] Serum or plasma total biliru bin measurement (mass/volume)Ordered By: Michele Arteaga on 11-19-2022 Bilirubin [Mass/Vol] 0.6 mg/dL 0.3-1.2 [facility] WBC Auto (Bld) [#/Vol]Ordere d By: Michele Arteaga on 11-19-2022 WBC (Bld) [#/Vol] 4.8 10*3/uL 4.1-10.5 [facility] CBC AUTO DIFFon 11-05-2022 BASO # 0.0 103/ul Normal 0.0-0.1 [facility] Comment on above: Performed By: #### C BC #### [facility] [address] [place] [address] Dr. Robb Martin Basophils/100 WBC (Bld) 0.7 % Normal 0.2-2.0 [facility] Comment on above: Performed By: #### C BC #### [facility] [address] [place] [address] Dr. Robb Martin EO # 0.1 103/ul Normal 0.0-0.7 [facility] Comment on above: Performed By: #### C BC #### [facility] [address] [place] [address] Dr. Robb Martin Eosinophils/100 WBC (Bld) 1.9 % Normal 0.9-7.0 [facility] Comment on above: Performed By: #### C BC #### [facility] [address] [place] [address] Dr. Robb Martin Erythrocyte distribution width (RBC) [Ratio] 13.4 % Normal 11.0-15.0 [facility] Comment on above: Performed By: #### C BC #### [facility] [address] [place] [address] Dr. Robb Martin Hematocrit (Bld) [Volume fraction] 33.3 % Critically low 42.0-54.0 [facility] Comment on above: Performed By: #### C BC #### [facility] [address] [place] [address] Dr. Robb Martin Hemoglobin (Bld) [Mass/Vol] 11.1 g/dL Critically low 14.0-18.0 [facility] Comment on above: Performed By: #### C BC #### [facility] [address] [place] [address] Dr. Robb Martin IG # 0.01 10e3/ul Normal 0.00-0.03 [facility] Comment on above: Performed By: #### C BC #### [facility] [address] [place] [address] Dr. Robb Martin IG % 0.2 % Normal 0.0-0.5 [facility] Comment on above: Performed By: #### C BC #### [facility] [address] [place] [address] Dr. Robb Martin LYMPH # 0.8 103/ul Critically low 1.2-3.8 [facility] Comment on above: Performed By: #### C BC #### [facility] [address] [place] [address] Dr. Robb Martin Lymphocytes/100 WBC (Bld) 17.6 % Critically low 20.5-60.0 [facility] Comment on above: Performed By: #### C BC #### [facility] [address] [place] [address] Dr. Robb Martin MANUAL DIFF REQ NO Normal [facility] Comment on above: Performed By: #### C BC #### [facility] [address] [place] [address] Dr. Robb Martin MCH (RBC) [Entitic mass] 30.4 pg Normal 25.9-34.0 [facility] Comment on above: Performed By: #### C BC #### [facility] [address] [place] [address] Dr. Robb Martin MCHC (RBC) [Mass/Vol] 33.3 g/dL Normal 29.9-35.2 [facility] Comment on above: Performed By: #### C BC #### [facility] [address] [place] [address] Dr. Robb Martin MCV (RBC) [Entitic vol] 91.2 fL Normal 80.0-94.0 [facility] Comment on above: Performed By: #### C BC #### [facility] [address] [place] [address] Dr. Robb Martin MONO # 0.6 103/ul Normal 0.3-0.8 [facility] Comment on above: Performed By: #### C BC #### [facility] [address] [place] [address] Dr. Robb Martin Monocytes/100 WBC (Bld) 13.9 % Critically high 1.7-12. 0 [facility] Comment on above: Performed By: #### C BC #### [facility] [address] [place] [address] Dr. Robb Martin NEUT # 2.8 103/ul Normal 1.4-6.5 [facility] Comment on above: Performed By: #### C BC #### [facility] [address] [place] [address] Dr. Robb Martin Neutrophils/100 WBC (Bld) 65.7 % Normal 43.0-75.0 [facility] Comment on above: Performed By: #### C BC #### [facility] [address] [place] [address] Dr. Robb Martin Platelet mean volume (Bld) [Entitic vol] 10.3 fL Normal 9.5-13.5 [facility] Comment on above: Performed By: #### C BC #### [facility] [address] [place] [address] Dr. Robb Martin PLT 141 103/ul Critically low 150-450 [facility] Comment on above: Performed By: #### C BC #### [facility] [address] [place] [address] Dr. Robb Martin RBC 3.65 106/ul Critically low 4.70-6.10 [facility] Comment on above: Performed By: #### C BC #### [facility] [address] [address] [address] Robb Martin WBC 4.3 103/ul Normal 4.0-11.0 [facility] Comment on above: Performed By: #### C BC #### [facility] [address] [address] [address] Robb Martin PROF CHEM 8 (BAS METB)on Anion gap [Moles/Vol] 11.3 mmol/L Normal [facility] Comment on above: Performed By: #### B MP ####[facility] [address] [address]DrSantos Martin Calcium [Mass/Vol] 9.2 mg/dL Normal 8.5-10.1 [facility] Comment on above: Performed By: #### B MP ####[facility] [address] [address]DrSantos Martin Chloride [Moles/Vol] 105 mmol/L Normal 98-107 [facility] Comment on above: Performed By: #### B MP ####[facility] [address] [address]DrSantos Martin CO2 [Moles/Vol] 30.7 mmol/L Normal 21.0-32.0 [facility] Comment on above: Performed By: #### B MP ####[facility] [address] [address]DrSantos Martin Creatinine [Mass/Vol] 1.01 mg/dL Normal 0.70-1.30 [facility] Comment on above: Performed By: #### B MP ####[facility] [address] [address]DrSantos Martin EGFR-AF DJIBOUTIAN >60 Normal >=60 [facility] Comment on above: Performed By: #### B MP ####[facility] [address] [address]DrSantos Martin EGFR-NON AF DJIBOUTIAN >60 Normal >=60 [facility] Comment on above: Performed By: #### B MP ####[facility] [address] [id number] Martin Glucose [Mass/Vol] 103 mg/dL Normal 74-106 [facility] Comment on above: Performed By: #### B MP ####[facility] [address] [address]DrSantos Martin Potassium [Moles/Vol] 4.0 mmol/L Normal 3.5-5.1 [facility] Comment on above: Performed By: #### B MP ####[facility] [address] [place], [place] [address]DrSantos Martin Sodium [Moles/Vol] 143 mmol/L Normal 136-145 [facility] Comment on above: Performed By: #### B MP ####[facility] [address] [place], [place] [address]Dr. Robb Martin Urea nitrogen [Mass/Vol] 17.0 mg/dL Normal 7.0-18.0 [facility] Comment on above: Performed By: #### B MP ####[facility] [address] [place], [place] [address]DrSantos Martin Urea nitrogen/Creatinine [Mass ratio] 16.8 mg/mg Normal [facility] Comment on above: Performed By: #### B MP ####[facility] [address] [place], [place] [address]Dr. Robb Martin CBC AUTO DIFFon 09-29-2022 BASO # 0.0 103/ul Normal 0.0-0.1 [facility] Comment on above: Performed By: #### C BC #### [facility] [address] [place] [address] Dr. Robb Martin Basophils/100 WBC (Bld) 0.6 % Normal 0.2-2.0 [facility] Comment on above: Performed By: #### C BC #### [facility] [address] [place] [address] Dr. Robb Martin EO # 0.1 103/ul Normal 0.0-0.7 [facility] Comment on above: Performed By: #### C BC #### [facility] [address] [place] [address] Dr. Robb Martin Eosinophils/100 WBC (Bld) 1.4 % Normal 0.9-7.0 [facility] Comment on above: Performed By: #### C BC #### [facility] [address] [place] [address] Dr. Robb Martin Erythrocyte distribution width (RBC) [Ratio] 13.9 % Normal 11.0-15.0 [facility] Comment on above: Performed By: #### C BC #### [facility] [address] [place] [address] Dr. Robb Martin Hematocrit (Bld) [Volume fraction] 35.4 % Critically low 42.0-54.0 [facility] Comment on above: Performed By: #### C BC #### [facility] [address] [place] [address] Dr. Robb Martin Hemoglobin (Bld) [Mass/Vol] 11.3 g/dL Critically low 14.0-18.0 [facility] Comment on above: Performed By: #### C BC #### [facility] [address] [place] [address] Dr. Robb Martin IG # 0.01 10e3/ul Normal 0.00-0.03 [facility] Comment on above: Performed By: #### C BC #### [facility] [address] [place] [address] Dr. Robb Martin IG % 0.2 % Normal 0.0-0.5 [facility] Comment on above: Performed By: #### C BC #### [facility] [address] [place] [address] Dr. Robb Martin LYMPH # 0.7 103/ul Critically low 1.2-3.8 [facility] Comment on above: Performed By: #### C BC #### [facility] [address] [place] [address] Dr. Robb Martin Lymphocytes/100 WBC (Bld) 14.4 % Critically low 20.5-60.0 [facility] Comment on above: Performed By: #### C BC #### [facility] [address] [place] [address] Dr. Robb Martin MANUAL DIFF REQ NO Normal [facility] Comment on above: Performed By: #### C BC #### [facility] [address] [place] [address] Dr. Robb Martin MCH (RBC) [Entitic mass] 31.3 pg Normal 25.9-34.0 [facility] Comment on above: Performed By: #### C BC #### [facility] [address] [place] [address] Dr. Robb Martin MCHC (RBC) [Mass/Vol] 31.9 g/dL Normal 29.9-35.2 [facility] Comment on above: Performed By: #### C BC #### [facility] [address] [place] [address] Dr. Robb Martin MCV (RBC) [Entitic vol] 98.1 fL Critically high 80.0-94 .0 [facility] Comment on above: Performed By: #### C BC #### [facility] [address] [place] [address] Dr. Robb Martin MONO # 0.6 103/ul Normal 0.3-0.8 [facility] Comment on above: Performed By: #### C BC #### [facility] [address] [place] [address] Dr. Robb Martin Monocytes/100 WBC (Bld) 11.1 % Normal 1.7-12.0 [facility] Comment on above: Performed By: #### C BC #### [facility] [address] [place] [address] Dr. Robb Martin NEUT # 3.7 103/ul Normal 1.4-6.5 [facility] Comment on above: Performed By: #### C BC #### [facility] [address] [place] [address] Dr. Robb Martin Neutrophils/100 WBC (Bld) 72.3 % Normal 43.0-75.0 [facility] Comment on above: Performed By: #### C BC #### [facility] [address] [address] [address] Robb Martin Platelet mean volume (Bld) [Entitic vol] 10.4 fL Normal 9.5-13.5 [facility] Comment on above: Performed By: #### C BC #### [facility] [address] [address] [address] Robb Martin PLT 122 103/ul Critically low 150-450 [facility] Comment on above: Performed By: #### C BC #### [facility] [address] [address] [address] Robb Martin RBC 3.61 106/ul Critically low 4.70-6.10 [facility] Comment on above: Performed By: #### C BC #### [facility] [address] [address] [address] Robb Martin WBC 5.2 103/ul Normal 4.0-11.0 [facility] Comment on above: Performed By: #### C BC #### [facility] [address] [address] [address] Robb Martin PROF CHEM 8 (BAS METB)on Anion gap [Moles/Vol] 10.6 mmol/L Normal [facility] Comment on above: Performed By: #### B MP ####[facility] [address] [address]Dr. Robb Martin Calcium [Mass/Vol] 9.3 mg/dL Normal 8.5-10.1 [facility] Comment on above: Performed By: #### B MP ####[facility] [address] [address]Dr. Robb Martin Chloride [Moles/Vol] 103 mmol/L Normal 98-107 [facility] Comment on above: Performed By: #### B MP ####[facility] [address] [place] [address]Dr. Robb Martin CO2 [Moles/Vol] 30.2 mmol/L Normal 21.0-32.0 [facility] Comment on above: Performed By: #### B MP ####[facility] [address] [place] [address]Dr. Candyelaina Martin Creatinine [Mass/Vol] 0.98 mg/dL Normal 0.70-1.30 [facility] Comment on above: Performed By: #### B MP ####[facility] [address] [place] [address]Dr. Candyelaina Mario EGFR-AF DJIBOUTIAN >60 Normal >=60 [facility] Comment on above: Performed By: #### B MP ####[facility] [address] [place] [address]Dr. Robb Martin EGFR-NON AF DJIBOUTIAN >60 Normal >=60 [facility] Comment on above: Performed By: #### B MP ####[facility] [address] [place], [place] [address]Dr. Robb Martin Glucose [Mass/Vol] 99 mg/dL Normal 74-106 [facility] Comment on above: Performed By: #### B MP ####[facility] [address] [place], [place] [address]Dr. Robb Martin Potassium [Moles/Vol] 3.8 mmol/L Normal 3.5-5.1 [facility] Comment on above: Performed By: #### B MP ####[facility] [address] [place], [place] [address]Dr. Robb Martin Sodium [Moles/Vol] 140 mmol/L Normal 136-145 [facility] Comment on above: Performed By: #### B MP ####[facility] [address] [place], [place] [address]Dr. Robb Martin Urea nitrogen [Mass/Vol] 20.0 mg/dL Critically high 7.0-18.0 [facility] Comment on above: Performed By: #### B MP ####[facility] [address] [place] [address]Dr. Robb Martin Urea nitrogen/Creatinine [Mass ratio] 20.4 mg/mg Normal [facility] Comment on above: Performed By: #### B MP ####[facility] [address] [place], [place] [address]Rt. Robb Martin Basophils Auto (Bld) [#/Vol] Ordered By: Michele Arteaga on 07-20-2022 Basophils (Bld) [#/Vol] 0.0 10*3/uL 0.0-0.2 [facility] Basophils/100 WBC Auto (Bld) Ordered By: Michele Arteaga on 07-20-2022 Basophils/100 WBC (Bld) 0.8 % . [facility] Body fluid albumin measureme nt (mass/volume)Ordered By: Michele Arteaga on 07-20-2022 Albumin (Body fld) [Mass/Vol] 3.8 g/dL 3.2-5.5 [facility] Creatinine and Glomerular fi ltration rate.predicted panel (S/P/Bld)Ordered By: Michele Arteaga on 07-20-2022 Creatinine [Mass/Vol] 1.00 mg/dL 0.64-1.[address] [facility] Direct bilirubin measurement Ordered By: Michele Arteaga on 07-20-2022 Bilirubin.direct [Mass/Vol] 0.2 mg/dL 0.0-0.4 [facility] Eosinophils Auto (Bld) [#/Vo l]Ordered By: Michele Arteaga on 07-20-2022 Eosinophils (Bld) [#/Vol] 0.0 10*3/uL 0.0-0.45 [facility] Eosinophils/100 WBC Auto (Bl d)Ordered By: Michele Arteaga on 07-20-2022 Eosinophils/100 WBC (Bld) 1.0 % . [facility] Erythrocyte distribution wid th Auto (RBC) [Ratio]Ordered By: Michele Arteaga on 07-20-2022 Erythrocyte distribution width (RBC) [Ratio] 14.7 % 12.0-14.8 [facility] Erythrocyte sedimentation ra te by Photometric methodOrdered By: Michele Arteaga on 07-20-2022 ESR Photometric method (Bld) [Velocity] 13 mm/hr 0-19 [facility] Estimated glomerular filtrat ion rate (GFR) non- AmericanOrdered By: Michele Arteaga on 07-20-2022 GFR/1.73 sq M.predicted among non-blacks MDRD (S/P/Bld) [Vol rate/Area] > 60 mL/Min [facility] Globulin Calc (S) [Mass/Vol] Ordered By: Michele Arteaga on 07-20-2022 Globulin (S) [Mass/Vol] 2.1 g/dL [facility] Hematocrit Auto (Bld) [Volum e fraction]Ordered By: Michele Arteaga on 07-20-2022 Hematocrit (Bld) [Volume fraction] 32.4 % 38.8-50.0 [facility] Hemoglobin [Mass/volume] in BloodOrdered By: Michele Arteaga on 07-20-2022 Hemoglobin (Bld) [Mass/Vol] 10.8 g/dL 13.0-17.0 [facility] Laboratory - Hematology and Cell countsOrdered By: Michele Arteaga on 07-20-2022 Nucleated RBC/100 WBC (Bld) [Ratio] 0.0 % 0-0.5 [facility] Leukocytes [#/volume] in Blo od by Automated countOrdered By: Michele Arteaga on 07-20-2022 WBC (Bld) [#/Vol] 4.6 10*3/uL 4.5-11.0 [facility] Lymphocytes Auto (Bld) [#/Vo l]Ordered By: Michele Arteaga on 07-20-2022 Lymphocytes (Bld) [#/Vol] 0.6 10*3/uL 1.00-4.8 [facility] Lymphocytes/100 WBC Auto (Bl d)Ordered By: Michele Arteaga on 07-20-2022 Lymphocytes/100 WBC (Bld) 13.8 % . [facility] MCH Auto (RBC) [Entitic mass ]Ordered By: Michele Arteaga on 07-20-2022 MCH (RBC) [Entitic mass] 31.8 pg 27.5-35.2 [facility] MCHC Auto (RBC) [Mass/Vol]Or dered By: Michele Arteaga on 07-20-2022 MCHC (RBC) [Mass/Vol] 33.2 g/dL 32.5-35.[address] [facility] MCV Auto (RBC) [Entitic vol] Ordered By: Michele Arteaga on 07-20-2022 MCV (RBC) [Entitic vol] 95.8 fL 83.5-101 [facility] Monocytes Auto (Bld) [#/Vol] Ordered By: Michele Arteaga on 07-20-2022 Monocytes (Bld) [#/Vol] 0.4 10*3/uL 0.0-0.8 [facility] Monocytes/100 WBC Auto (Bld) Ordered By: Michele Arteaga on 07-20-2022 Monocytes/100 WBC (Bld) 9.1 % . [facility] Neutrophils Auto (Bld) [#/Vo l]Ordered By: Michele Arteaga on 07-20-2022 Neutrophils (Bld) [#/Vol] 3.5 10*3/uL 1.8-7.7 [facility] Neutrophils/100 WBC Auto (Bl d)Ordered By: Michele Arteaga on 07-20-2022 Neutrophils/100 WBC (Bld) 75.3 % . [facility] No Panel InformationOrdered By: Michele Arteaga on 07-20-2022 Estimated GFR () > 60 mL/Min [facility] Comment on above: GFR estimated refere nce range: According to KDOQI guidelines, <60 ml/min/1.73m2 is sufficient to diagnose a patient with chronic kidney disease. Pharmacy Creatinine Clearance (Chem N/A [facility] Platelet mean volume Auto (B ld) [Entitic vol]Ordered By: Michele Arteaga on 07-20-2022 Platelet mean volume (Bld) [Entitic vol] 8.7 fL 6.6-10.1 [facility] Platelets Auto (Bld) [#/Vol] Ordered By: Michele Arteaga on 07-20-2022 Platelets (Bld) [#/Vol] 140 10*3/uL 150-450 [facility] Protein [Mass/volume] in Ser um or PlasmaOrdered By: Michele Arteaga on 07-20-2022 Protein [Mass/Vol] 5.9 g/dL 6.1-7.9 [facility] RBC Auto (Bld) [#/Vol]Ordere d By: Michele Arteaga on 07-20-2022 RBC (Bld) [#/Vol] 3.39 10*6/uL 3.90-5.60 [facility] Serum or plasma alanine ervin otransferase measurement without P-5'-P (enzymatic activiOrdered By: Michele Arteaga on 07-20-2022 ALT No additional P-5'-P [Catalytic activity/Vol] 29 U/L 1060 [facility] Serum or plasma albumin/glob ulin mass ratioOrdered By: Michele Arteaga on 07-20-2022 Albumin/Globulin [Mass ratio] 1.8 {ratio} [facility] Serum or plasma alkaline daniel sphatase measurement (enzymatic activity/volume)Ordered By: Michele Arteaga on 07-20-2022 ALP [Catalytic activity/Vol] 68 U/L 32-92 [facility] Serum or plasma aspartate am inotransferase measurement (enzymatic activity/volume)Ordered By: Michele Arteaga on 07-20-2022 AST [Catalytic activity/Vol] 24 U/L 10 [facility] Serum or plasma non-glucuron idated bilirubin measurement (mass/volume)Ordered By: Michele Arteaga on 07-20-2022 Bilirubin.indirect [Mass/Vol] 0.7 mg/dL [facility] Serum or plasma total biliru bin measurement (mass/volume)Ordered By: Michele Arteaga on 07-20-2022 Bilirubin [Mass/Vol] 0.9 mg/dL 0.3-1.2 [facility] ECHOCARDIO M/2D COMPLETEon 0 04-20-2022 ECHOCARDIO M/2D COMPLETE Patient: NELLY HANNON Exam Date: 04/20/2022 : 1935 Gender:M Ordering : FILIPPO JUDGE Admission #: [id number] Family : DR STEVE DE PAZ DSagar Order #: [id number] CLICK HERE TO VIEW EXAM ECHOCARDIOGRAM REPORT [...] Kate M.D. on 04/20/2022 at 17:06 Normal [facility] XR clavicle RT*on 11-03-2021 XR clavicle RT* [facility] [employer] Other XR clavicle RT* [facility] [employer] Other XR clavicle RT* [address] [facility] No rt [employer] Other XR clavicle RT* [place] [address] [address] [facility] [employer] Other XR clavicle RT* XRay Report [facility] [employer] Other XR clavicle RT* Signed [employer] Other XR clavicle RT* Patient: Nelly Hannon MR#: [id number] [employer] Other XR clavicle RT* 0 [employer] Other XR clavicle RT* : 1935 Acct:[id number] [employer] Other XR clavicle RT* Age/Sex: 86 / M ADM Date: 11/03/21 [employer] Other XR clavicle RT* [place] [facility] [place]: Type : [facility] [employer] Other XR clavicle RT* Attending Dr: Vinh Lawton DO [employer] Other XR clavicle RT* Ordering Provider: Vinh Lawton, [employer] Other XR clavicle RT* Date of Service: 11/03/21 [employer] Other XR clavicle RT* XR/XR clavicle RT*: Displaced fracture of lateral end of right clavicle, [employer] Other XR clavicle RT* subsequ [employer] Other XR clavicle RT* Copies to: Vinh Lawton, [employer] Other XR clavicle RT* 2 views RIGHT clavicle [employer] Other XR clavicle RT* COMPARISON: 10/06/21 [employer] Other XR clavicle RT* HISTORY: Status post RIGHT clavicle fracture [employer] Other XR clavicle RT* There is redemonstration of the distal clavicle fracture. There is subtle callus formation [employer] Other XR clavicle RT* suggesting interval healing. Bony alignment is unchanged. [employer] Other XR clavicle RT* XR/XR clavicle RT* [employer] Other XR clavicle RT* IMPRESSION: Healing distal RIGHT clavicle fracture. Unchanged bony alignment. [employer] Other XR clavicle RT* Impression dictated by: Abdoul William M.D.11/03/2021 4:06 PM [employer] Other XR clavicle RT* Dictation Location: [place] [address] [employer] Other XR clavicle RT* Transcribed By: PWS 11/03/21 [facility] [employer] Other XR clavicle RT* Dictated By: Abdoul William DO 11/03/21 [facility] [employer] Other XR clavicle RT* Signed By: Code71 [facility] [employer] Other XR clavicle RT* 11/03/21 [facility] [employer] Other Cardiovascular Lab Reporton 08-25-2021 Cardiovascular Lab Report [facility] Patient Name: [facility] MR #: [id number] Physician: Filippo Judge MD Department of Service Date: 08/25/2021 Medicine Birthdate: 1935 Division of Room #: [facility] Cardiology Adult Cardiovascular Services [place] [address] Cardiovascular Laboratory Report BIV-UPGRADE PROCEDURE NOTE DATE [...] occasions using seldinger technique using a 5 Nigerian micropunture needle. There was difficulty guiding the [...] lead position on orthogonal views (MCBRIDE and CAMEROONIAN) to confirm position in the septal aspect, the screw was activated. After confirmation of good sensing parameters, injury pattern and pacing thresholds, 10V pacing was done and no diaphragmatic stimulation was noted. It was then secured in the pocket using two 0- Silk sutures. I then proceeded to perform the LV lead placement. A [place] sheath was advanced into the RV over [...] lead position on orthogonal views (MCBRIDE and CAMEROONIAN) to confirm position in the septal aspect, [...] lead were then attached to a [employer] CYTOGENETIC TECHNICIAN-D device and the leads tug tested. Pocket hemostasis was achieved, and it was then copiously and vigorously irrigated with antiobiotic so (more content not included)... Normal [facility] Vital Signs Date Time Vital Sign Value Performing Clinician Facility 05-22-2024 08:37-0400 Blood Pressure Location Cristela WINTER [facility] 05-22-2024 08:37-0400 Body temperature 98.6 [degF] Cristela WINTER [facility] 05-22-2024 08:37-0400 Diastolic blood pressure 70 mm[Hg] Cristela WINTER [facility] 05-22-2024 08:37-0400 Heart rate 62 /min Cristela WINTER [facility] 05-22-2024 08:37-0400 Respiratory rate 16 /min Cristela WINTER [facility] 05-22-2024 08:37-0400 Systolic blood pressure 130 mm[Hg] Cristela WINETR [facility] 04-25-2024 09:24-0400 Body height 177.8 cm DO Steve Ball Work Phone: [facility] 04-25-2024 09:24-0400 Body mass index (BMI) [Ratio] 23.5 kg/m2 DO Steve Ball Work Phone: [facility] 04-25-2024 09:24-0400 Body weight 74.38 kg DO Steve Ball Work Phone: [facility] 04-25-2024 09:24-0400 Diastolic blood pressure 73 mm[Hg] DO Steve Ball Work Phone: [facility] 04-25-2024 09:24-0400 Heart rate 72 /min DO Steve Ball Work Phone: [facility] 04-25-2024 09:24-0400 Respiratory rate 12 /min DO Steve Ball Work Phone: [facility] 04-25-2024 09:24-0400 Systolic blood pressure 152 mm[Hg] DO Steve Ball Work Phone: [facility] 03-16-2024 11:22-0400 Body height 177.8 cm DO Steve Ball Work Phone: [facility] 03-16-2024 11:22-0400 Body mass index (BMI) [Ratio] 23.9 kg/m2 DO Steve Ball Work Phone: [facility] 03-16-2024 11:22-0400 Body temperature 97.2 [degF] DO Steve Ball Work Phone: [facility] 03-16-2024 11:22-0400 Body weight 75.74 kg DO Steve Ball Work Phone: [facility] 03-16-2024 11:22-0400 Diastolic blood pressure 70 mm[Hg] DO Steve Ball Work Phone: [facility] 03-16-2024 11:22-0400 Heart rate 98 /min DO Steve Ball Work Phone: [facility] 03-16-2024 11:22-0400 Respiratory rate 16 /min DO Steve Ball Work Phone: [facility] 03-16-2024 11:22-0400 SaO2% (BldA) [Mass fraction] 97 % DO Steve Ball Work Phone: [facility] 03-16-2024 11:22-0400 Systolic blood pressure 154 mm[Hg] DO Steve Ball Work Phone: [facility] 01-19-2024 08:29-0400 Body height 177.8 cm DO Steve Ball Work Phone: [facility] 01-19-2024 08:29-0400 Body mass index (BMI) [Ratio] 23.1 kg/m2 DO Steve Ball Work Phone: [facility] 01-19-2024 08:29-0400 Body weight 73.25 kg DO Steve Ball Work Phone: [facility] 01-19-2024 08:29-0400 Diastolic blood pressure 71 mm[Hg] DO Steve Ball Work Phone: [facility] 01-19-2024 08:29-0400 Heart rate 71 /min DO Steve Ball Work Phone: [facility] 01-19-2024 08:29-0400 Respiratory rate 12 /min DO Steve Ball Work Phone: [facility] 01-19-2024 08:29-0400 Systolic blood pressure 136 mm[Hg] DO Steve Ball Work Phone: [facility] 01-17-2024 15:05-0400 Body height 177.8 cm Elkin Holly MD Work Phone: [facility] 01-17-2024 15:05-0400 Body mass index (BMI) [Ratio] 22.93 kg/m2 Elkin Holly MD Work Phone: [facility] 01-17-2024 15:05-0400 Body temperature 97.7 [degF] Elkin Holly MD Work Phone: [facility] 01-17-2024 15:05-0400 Body weight 72.48 kg Elkin Holly MD Work Phone: [facility] 01-17-2024 15:05-0400 Diastolic blood pressure 69 mm[Hg] Elkin Holly MD Work Phone: [facility] 01-17-2024 15:05-0400 Systolic blood pressure 135 mm[Hg] Elkin Holly MD Work Phone: [facility] 12-17-2023 11:37-0400 Body temperature 97.2 [degF] DO Steve Ball Work Phone: [facility] 12-17-2023 11:37-0400 Body weight 78.47 kg DO Steve Ball Work Phone: [facility] 12-17-2023 11:37-0400 Diastolic blood pressure 69 mm[Hg] DO Steve Ball Work Phone: [facility] 12-17-2023 11:37-0400 Heart rate 66 /min DO Steve Ball Work Phone: [facility] 12-17-2023 11:37-0400 Respiratory rate 16 /min DO Steve Ball Work Phone: [facility] 12-17-2023 11:37-0400 SaO2% (BldA) [Mass fraction] 97 % DO Steve Ball Work Phone: [facility] 12-17-2023 11:37-0400 Systolic blood pressure 170 mm[Hg] DO Steve Ball Work Phone: [facility] 11-24-2023 08:24-0500 Body height 177.8 cm DO Steve Ball Work Phone: [facility] 11-24-2023 08:24-0500 Body mass index (BMI) [Ratio] 24.7 kg/m2 DO Steve Ball Work Phone: [facility] 11-24-2023 08:24-0500 Body temperature 97 [degF] DO Steve Ball Work Phone: [facility] 11-24-2023 08:24-0500 Body weight 78.01 kg DO Steve Ball Work Phone: [facility] 11-24-2023 08:24-0500 Diastolic blood pressure 56 mm[Hg] DO Steve Ball Work Phone: [facility] 11-24-2023 08:24-0500 Heart rate 60 /min DO Steve Ball Work Phone: [facility] 11-24-2023 08:24-0500 Respiratory rate 16 /min DO Steve Ball Work Phone: [facility] 11-24-2023 08:24-0500 SaO2% (BldA) [Mass fraction] 97 % DO Steve Ball Work Phone: [facility] 11-24-2023 08:24-0500 Systolic blood pressure 125 mm[Hg] DO Steve Ball Work Phone: [facility] 11-19-2023 10:43-0500 Body height 177.8 cm DO Steve Ball Work Phone: [facility] 11-19-2023 10:43-0500 Body weight 77.11 kg DO Steve Ball Work Phone: [facility] 11-08-2023 14:46-0500 Body height 177.8 cm Elkin Holly MD Work Phone: [facility] 11-08-2023 14:46-0500 Body mass index (BMI) [Ratio] 24.54 kg/m2 Elkin Holly MD Work Phone: [facility] 11-08-2023 14:46-0500 Body temperature 97.5 [degF] Elkin Holly MD Work Phone: [facility] 11-08-2023 14:46-0500 Body weight 77.56 kg Elkin Holly MD Work Phone: [facility] 11-08-2023 14:46-0500 Diastolic blood pressure 68 mm[Hg] Elkin Holly MD Work Phone: 1(803)545-137573 [place] [address] 11-08-2023 14:46-0500 Systolic blood pressure 155 mm[Hg] Elkin Holly MD Work Phone: 6(822)262-839373 [place] [address] 10-28-2023 18:15-0500 Diastolic blood pressure 76 mm[Hg] Elkin Holly MD Work Phone: [facility] 10-28-2023 18:15-0500 Heart rate 60 /min Elkin Holly MD Work Phone: 0(688)806-098073 [place] [address] 10-28-2023 18:15-0500 Respiratory rate 12 /min Elkin Holly MD Work Phone: [facility] 10-28-2023 18:15-0500 SaO2% (BldA) [Mass fraction] 100 % Elkin Holly MD Work Phone: [facility] 10-28-2023 18:15-0500 Systolic blood pressure 166 mm[Hg] Elkin Holly MD Work Phone: [facility] 10-28-2023 17:00-0500 Body temperature 96.8 [degF] Elkin Holly MD Work Phone: 0(821)[phone] [place] [address] 10-28-2023 12:33-0500 Body height 177.8 cm Elkin Holly MD Work Phone: [facility] 10-28-2023 12:33-0500 Body mass index (BMI) [Ratio] 24.39 kg/m2 Elkin Holly MD Work Phone: [facility] 10-28-2023 12:33-0500 Body weight 77.11 kg Elkin Holly MD Work Phone: [facility] 10-19-2023 10:00-0500 Body height 157.48 cm Steve Ball Other [facility] 10-19-2023 10:00-0500 Body mass index (BMI) [Ratio] 31.09 kg/m2 Steve Ball Other [employer] Other 10-19-2023 10:00-0500 Body weight 77.11 kg Steve Ball Other [facility] 10-19-2023 10:00-0500 Diastolic blood pressure 80 mm[Hg] Steve Ball Other [facility] 10-19-2023 10:00-0500 Respiratory rate 12 /min Steve Ball Other [employer] Other 10-19-2023 10:00-0500 Systolic blood pressure 138 mm[Hg] Steve Ball Other [facility] 10-08-2023 09:27-0500 Body height 179.1 cm Elkin Holly MD Work Phone: [facility] 10-08-2023 09:27-0500 Body mass index (BMI) [Ratio] 24.15 kg/m2 Elkin Holly MD Work Phone: [facility] 10-08-2023 09:27-0500 Body weight 77.43 kg Elkin Holly MD Work Phone: [facility] 07-05-2023 11:00-0400 Body height 157.48 cm Steve Ball Other [employer] Other 07-05-2023 11:00-0400 Body mass index (BMI) [Ratio] 30.5 kg/m2 Steve Ball Other [employer] Other 07-05-2023 11:00-0400 Body weight 75.66 kg Steve Ball Other [employer] Other 07-05-2023 11:00-0400 Diastolic blood pressure 68 mm[Hg] Steve Ball Other [employer] Other 07-05-2023 11:00-0400 Respiratory rate 12 /min Steve Ball Other [employer] Other 07-05-2023 11:00-0400 Systolic blood pressure 148 mm[Hg] Steve Ball Other [employer] Other 05-17-2023 08:48-0400 Blood Pressure Location Cristela WINTER [facility] 05-17-2023 08:48-0400 Diastolic blood pressure 69 mm[Hg] Cristela WINTER [facility] 05-17-2023 08:48-0400 Heart rate 65 /min Cristela WINTER [facility] 05-17-2023 08:48-0400 Respiratory rate 16 /min Cristela WINTER [facility] 05-17-2023 08:48-0400 Systolic blood pressure 106 mm[Hg] Cristela WINTER [facility] 04-30-2023 11:30-0400 Body height 157.48 cm Steve Ball Other [employer] Other 04-30-2023 11:30-0400 Body mass index (BMI) [Ratio] 31.16 kg/m2 Steve Ball Other [employer] Other 04-30-2023 11:30-0400 Body weight 77.29 kg Steve Ball Other [employer] Other 04-30-2023 11:30-0400 Diastolic blood pressure 66 mm[Hg] Steve Ball Other [employer] Other 04-30-2023 11:30-0400 Respiratory rate 12 /min Steve Ball Other [employer] Other 04-30-2023 11:30-0400 Systolic blood pressure 132 mm[Hg] Steve Ball Other [employer] Other 01-06-2023 11:30-0400 Body height 157.48 cm Steve Ball Other [employer] Other 01-06-2023 11:30-0400 Body mass index (BMI) [Ratio] 31.46 kg/m2 Steve Ball Other [employer] Other 01-06-2023 11:30-0400 Body weight 78.02 kg Steve Ball Other [employer] Other 01-06-2023 11:30-0400 Diastolic blood pressure 73 mm[Hg] Steve Ball Other [employer] Other 01-06-2023 11:30-0400 SaO2% (BldA) [Mass fraction] 96 % Steve Ball Other [employer] Other 01-06-2023 11:30-0400 Systolic blood pressure 130 mm[Hg] Steve Ball Other [employer] Other 05-04-2022 12:33-0400 Blood Pressure Location Cristela WINTER [facility] 05-04-2022 12:33-0400 Diastolic blood pressure 69 mm[Hg] Cristela WINTER [facility] 05-04-2022 12:33-0400 Heart rate 68 /min Cristela WINTER [facility] 05-04-2022 12:33-0400 Respiratory rate 16 /min [facility] 05-04-2022 12:33-0400 Systolic blood pressure 134 mm[Hg] Cristela WINTER [facility] 11-03-2021 16:00-0500 Body height 157.48 cm Vinh Lawton Other [employer] Other 11-03-2021 16:00-0500 Body mass index (BMI) [Ratio] 25.79 kg/m2 Vinh Lawton Other [employer] Other 11-03-2021 16:00-0500 Body weight 63.96 kg Vinh Lawtno Other [employer] Other Encounters Encounter Date Encounter Type Care Provider Facility Start: 05-25-2025 ambulatory Cristela Seo ty:LEEANNE Landis Start: 05-22-2024 End: 05-22-2024 ambulatory Cristela WINTER Facility: [facility] Start: 05-22-2024 End: 05-22-2024 Patient encounter procedure Cristela WINTER [facility] Start: 05-02-2024 [facility]ulatory [facility] [facility] Start: 05-02-2024 End: 05-02-2024 ambulatory KAYLEY JHOAN [facility] Start: 05-01-2024 End: 05-01-2024 Patient encounter procedure Caryl Ley MD Work Phone: Ophthalmology Comment on above: 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 Work Phone: Start: 04-25-2024 End: 04-25-2024 Patient encounter procedure DO Steve Ball Work Phone: [facility] Work Phone: Start: 04-20-2024 End: 04-20-2024 [facility] Start: 04-20-2024 Non-patient / Non-visit DO Alexi De Paz Work Phone: [facility] Work Phone: Start: 03-31-2024 ambulatory [facility] Start: 03-31-2024 Encounter for preprocedural cardiovascular examination [facility] Start: 03-16-2024 End: 03-16-2024 ambulatory DO Steve Ball Work Phone: [facility] Work Phone: Start: 03-16-2024 End: 03-16-2024 Patient encounter procedure DO Steve Ball Work Phone: [facility] Work Phone: Start: 03-16-2024 Registered Recurring DO Darin in Ball Work Phone: [facility] Work Phone: Start: 03-16-2024 ambulatory Steve De Paz Facility: [facility] Start: 02-16-2024 End: 02-16-2024 ambulatory DEBBIE GORDON Not Available Start: 01-19-2024 End: 01-19-2024 ambulatory DO Steve De Paz Work Phone: [facility] Work Phone: Start: 01-19-2024 End: 01-19-2024 Patient encounter procedure DO Steve De Paz Work Phone: [facility] Work Phone: Start: 01-17-2024 End: 01-17-2024 ambulatory DEBBIE One[facility] Start: 01-17-2024 End: 01-17-2024 Initial inpatient consult new/estab pt 55 min Debbie Bobby MD Work Phone: [facility] Comment on above: Brow ptosis, right ( Primary Dx); Dermatochalasis of right upper eyelid Start: 01-17-2024 End: 01-17-2024 Office outpatient visit 15 minutes Elkin Holly MD Work Phone: [facility] Comment on above: 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 Work Phone: Start: 12-17-2023 End: 12-17-2023 Patient encounter procedure DO Steve Ball Work Phone: [facility] Work Phone: Start: 12-17-2023 Registered Recurring DO Benjam in Ball Work Phone: [facility] Work Phone: Start: 12-10-2023 End: 12-10-2023 Patient encounter procedure DO Steve Ball Work Phone: [facility] Work Phone: Start: 11-24-2023 Registered Recurring DO Benjam in Ball Work Phone: [facility] Work Phone: Start: 11-24-2023 End: 11-24-2023 ambulatory DO Steve Ball Work Phone: [facility] Work Phone: Start: 11-24-2023 End: 11-24-2023 Patient encounter procedure DO Steve Ball Work Phone: [facility] Work Phone: Start: 11-19-2023 End: 11-19-2023 Patient encounter procedure DO Steve Ball Work Phone: [facility] Work Phone: Start: 11-19-2023 End: 11-19-2023 ambulatory DO Steve Ball Work Phone: [facility] Work Phone: Start: 11-08-2023 End: 11-08-2023 [facility]ulatory [facility] Start: 11-08-2023 End: 11-08-2023 Postop follow up visit related to original px Elkin Holly MD Work Phone: [facility] Comment on above: Malignant melanoma o f forehead (CMS/HCC) Start: 10-28-2023 End: 10-28-2023 Subsequent hospital visit by physician Elkin Holly MD Work Phone: [facility] [place] Comment on above: 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); Post-op pain Start: 10-28-2023 End: 10-28-2023 ambulatory [facility] Start: 10-28-2023 End: 10-28-2023 Subsequent hospital visit by physician Shasha Plascencia 2 [facility] Comment on above: Malignant melanoma o f forehead (CMS/HCC) Start: 10-26-2023 End: 10-26-2023 ambulatory [facility] Start: 10-19-2023 End: 10-19-2023 ambulatory Steve Zandra Other [employer] Other Start: 10-19-2023 Encounter for other preprocedural examination Steve De Paz [facility] Start: 10-19-2023 Office outpatient vi sit 25 minutes Steve Zandra [facility] Start: 10-19-2023 End: 10-19-2023 Patient encounter procedure DO Steve De Paz Work Phone: [facility] Work Phone: Start: 10-08-2023 End: 10-08-2023 ambulatory [facility] Start: 10-08-2023 End: 10-08-2023 Office outpatient new 45 minutes Elkin Holly MD Work Phone: [facility] Comment on above: Malignant melanoma o f forehead (CMS/HCC) Start: 07-19-2023 End: 07-19-2023 Patient encounter procedure DO Steve De Paz Work Phone: [facility] [address] Work Phone: Start: 07-19-2023 End: 07-19-2023 ambulatory DO Steve Ball Work Phone: [facility] Work Phone: Start: 07-13-2023 End: 07-13-2023 ambulatory Steve De Paz Other [employer] Other Start: 07-13-2023 Telephone encounter Steve De Paz [facility] Start: 07-05-2023 End: 07-05-2023 ambulatory Steve De Paz Other [employer] Other Start: 07-05-2023 Patient encounter procedure Steve De Paz [facility] Start: 05-31-2023 End: 05-31-2023 ambulatory Steve De Paz Other [employer] Other Start: 05-31-2023 Nursing evaluation o f patient and report Steve De Paz [facility] Start: 05-17-2023 End: 05-17-2023 Patient encounter procedure Cristela WINTER [facility] Start: 04-30-2023 End: 04-30-2023 ambulatory Steve De Paz Other [employer] Other Start: 04-30-2023 Office outpatient vi sit 15 minutes Steve De Paz [facility] Start: 03-30-2023 End: 03-30-2023 ambulatory DO Steve De Paz Work Phone: [facility] Work Phone: Start: 03-30-2023 End: 03-30-2023 Departed Referred DO Steve De Paz Work Phone: [facility] [address] [place] Work Phone: Start: 03-23-2023 End: 03-23-2023 ambulatory DO Steve De Paz Work Phone: [facility] Work Phone: Start: 03-23-2023 End: 03-23-2023 Patient encounter procedure DO Steve De Paz Work Phone: [facility] [address] Work Phone: Start: 02-01-2023 End: 03-03-2023 ambulatory SHAIKH Stephon CALDWELLMARY KATE Facility:[facility] Start: 01-22-2023 Office outpatient vi sit 15 minutes Steve Zandra [facility] Start: 01-22-2023 End: 01-22-[address] STEVE DE PAZ [employer] Other Start: 01-21-2023 End: 01-21-2023 ambulatory Steve De Paz Other [employer] Other Start: 01-21-2023 Telephone encounter Steve De Paz [facility] Start: 01-06-2023 End: 01-06-2023 ambulatory Steve De Paz Other [employer] Other Start: 01-06-2023 Office outpatient vi sit 25 minutes Steve De Paz [facility] Start: 01-04-2023 End: 01-29-[address] STEVE DE PAZ Facility:[facility] Start: 12-28-2022 End: 12-28-2022 ambulatory Steve De Paz Other [employer] Other Start: 12-28-2022 Telephone encounter Steve DODGE [facility] Start: 12-02-2022 End: 01-01-[address] STEVE DE PAZ Facility:[facility] Start: 11-19-2022 End: 11-19-2022 ambulatory DO Steve De Paz Work Phone: [facility] Work Phone: Start: 11-19-2022 End: 11-19-2022 Patient encounter procedure DO Steve De Paz Work Phone: [facility] [address] Work Phone: Start: 11-05-2022 End: 11-06-2022 ambulatory FILIPPO JUDGE [employer] Other Start: 11-05-2022 Telephone encounter Steve DODGE [facility] Start: 11-04-2022 End: 12-02-[address] STEVE DE PAZ Facility:[facility] Start: 10-05-2022 End: 11-04-[address] STEVE DE PAZ Facility:[facility] Start: 10-02-2022 Encounter for preprocedural cardiovascular examination FILIPPO JUDGE [facility] Start: 09-29-2022 End: 09-30-2022 ambulatory FILIPPO NU Facility:[facility] Start: 09-29-2022 End: 09-30-2022 Encounter for preprocedural cardiovascular examination FILIPPO JUDGE Facility:[facility] Start: 09-03-2022 End: 10-04-[address] STEVE DE PAZ Facility:[facility] Start: 08-05-2022 End: 08-06-[address] STEVE DE PAZ Facility:[facility] Start: 2022 End: 09-02-[address] STEEV DE PAZ Facility:[facility] Start: 07-20-2022 End: 07-20-2022 ambulatory DO Steve De Paz Work Phone: [facility] Work Phone: Start: 07-20-2022 End: 07-20-2022 Patient encounter procedure DO Steve De Paz Work Phone: [facility] [address] Start: 07-06-2022 End: 08-03-2022 ambulatory SHAIKH Stephon LUO Facility:[facility] Start: 06-04-2022 End: 07-04-2022 ambulatory SHAIKH Stephon LUO Facility:[facility] Start: 05-07-2022 End: 05-07-2022 ambulatory DEBBIE GORDON Facility:[facility] Start: 05-04-2022 End: 05-04-2022 Patient encounter procedure rCistela WINTER [facility] Start: 05-04-2022 End: 06-03-2022 ambulatory SHAIKH Stephon LUO Facility:[facility] Start: 04-20-2022 End: 04-21-2022 ambulatory FILIPPO JUDGE Facility:[facility] Start: 04-16-2022 Adult health examination Cezar De Paz Other [employer] Other Start: 04-16-2022 End: 04-16-2022 ambulatory DEBBIE GORDON Facility:[facility] Start: 04-07-2022 End: 04-08-[address] CRISTELA Graham Facility:[facility] Start: 04-03-2022 End: 05-01-2022 ambulatory SHAIKH Stephon LUO Facility:[facility] Start: 11-03-2021 End: 11-03-2021 ambulatory Vinh Lawton Other [employer] Other Start: 11-03-2021 Postop follow up vis it related to original px Vinh Lawton [facility] Start: 10-10-2021 End: 10-10-2021 ambulatory Vinh Lawton Other [employer] Other Start: 10-10-2021 FQHC visit new patient Vinh Lawton [facility] Start: 06-20-2021 End: 08-03-2021 ambulatory STEVE DE PAZ Facility:[facility] Start: 04-07-2019 Notes/Results Only Other Other NOTE S/RESULTS Start: 04-07-2019 End: 04-07-2019 Patient encounter procedure Other Other [facility] Start: 03-15-2019 Notes/Results Only Other Other NOTE S/RESULTS Start: 03-15-2019 End: 03-15-2019 Patient encounter procedure Other Other [facility] Start: 03-02-2019 Notes/Results Only Other Other NOTE S/RESULTS Start: 03-02-2019 End: 03-02-2019 Patient encounter procedure Other Other [facility] Start: 02-24-2019 Notes/Results Only Other Other NOTE S/RESULTS Start: 02-24-2019 End: 02-24-2019 Patient encounter procedure Other Other [facility] Start: 02-08-2019 Notes/Results Only Other Other NOTE S/RESULTS Start: 02-08-2019 End: 02-08-2019 Patient encounter procedure Other [facility] Start: 12-16-2018 Notes/Results Only Other Other NOTE S/RESULTS Start: 12-16-2018 End: 12-16-2018 Patient encounter procedure Other Other [facility] Start: 09-29-2018 Notes/Results Only Other Other NOTE S/RESULTS Start: 09-29-2018 End: 09-29-2018 Patient encounter procedure Other Other [facility] Procedures Date Procedure Procedure Detail Performing Clinician [...] RAMAN ON Start: 10-28-2023 DISCHARGE PATIENT ELKIN ELAYNE Start: 10-28-2023 Lymphatics & lymph n odes imaging Elkin Holly MD Work Phone: Start: 04-07-[address] YEIMI WINTER . Comment on above: Performed By: #### P SAD #### [facility] [address] [place] [address] Dr. Robb Martin Start: 04-07-2019 Electrocardiogram Other [...] prostate Cristela WINTER Start: 10-25-2007 Cystoscopy Cristela GASTON LIZLoi Start: 10-25-2007 Urodynamic studies Mathew WINTER Start: 09-20-2007 Transrectal biopsy o f prostate using ultrasound guidance Cristela WINTER Coronary artery bypa ss grafts x 4 Cristela WINTER Extraction of cataract Marivel WINTER Procedure on back Cristela ALEK ZUNIGA Plan of Treatment Date Care Activity Detail Author Start: 03-14-2027 Diabetes Screening Diabetes Screenin g [facility] Start: 07-24-2024 End: 07-24-2024 Patient encounter procedure 07/24/2024 3:30 PM EDT Office Visit [address] [place] [phone] [place] [address] [address] Department [place] [address] [facility] Start: 06-04-2024 Influenza vaccination Influenza Vacc ine (#1) [facility] Start: 01-17-2024 End: 01-17-2024 Patient encounter procedure 01/17/2024 3:30 PM EDT Office Visit [address] [place] [phone] [place] [address] [address] Department [place] [address] [facility] Start: 11-08-2023 End: 11-08-2024 PT Unspecified body region NM PET CT melanoma restaging Imaging Routine Malignant melanoma of forehead (CMS/HCC) Expected: 11/08/2023, Expires: 11/08/2024 [facility] Service Area Work Phone: Comment on above: Expected: 11/08/2023 , Expires: 11/08/2024 Start: 10-28-2023 End: 10-28-2023 Admission to same day surgery center 10/28/2023 11:00 AM EST - 10/28/2023 2:35 PM EST Surgery [facility] [place] [id number] [place] [phone] [place] [address] [address] Department [place] [address] ( sln inj @ 7:00 am ) Excision Lesion Skin Head/Neck [22663 (CPT )] [facility] [place] Comment on above: ( sln inj @ 7:00 am ) Excision Lesion Skin Head/Neck [81977 (CPT )] Start: 10-28-2023 End: 10-28-2023 Ct [...] AM EST Hospital Encounter [facility] [place] [address] [place] [phone] [place] [address] [address] Department [place] [address] [facility] [place] Start: 10-28-2023 End: 10-28-2023 Patient encounter procedure 10/28/2023 7:00 AM EST Appointment [facility] [address] [place] [phone] [facility] Start: 10-08-2023 End: 10-08-2024 NM Lymphatic vessels Views W radionuclide intra lymphatic NM lymphoscintigram Imaging Routine Malignant melanoma of forehead (CMS/HCC) Expected: 10/08/2023, Expires: 10/08/2024 [facility] Work Phone: Comment on above: Expected: 10/08/2023 , Expires: 10/08/2024 Start: 10-08-2023 End: 10-08-2024 Request for Pre-Admission Testing Visit Request for Pre-Admission Testing Visit Procedures Routine Malignant melanoma of forehead (CMS/HCC) Expected: 10/08/2023 (Approximate), Expires: 10/08/2024 [facility] Service Area Work Phone: Comment on above: Expected: 10/08/2023 (Approximate), Expires: 10/08/2024 Start: 10-04-2023 Advance Directive Discussion Advance Directive Discussion [facility] Start: 06-04-2023 COVID-19 Vaccine ( season) COVID-19 Vaccine ( season) [facility] Start: 06-04-2023 Covid-19 Vaccine ( season) Covid-19 Vaccine ( season) [facility] Start: 06-04-2023 Influenza vaccination Influenza Vacc ine (#1) [facility] Start: 09-30-2022 COVID-19 Vaccine (5 - Moderna series) COVID-19 Vaccine (5 - Moderna series) [facility] Start: 07-20-2022 [facility] Start: 10-04-2019 Pneumococcal Vaccine : 65+ Years (2 - PPSV23 or PCV20) Pneumococcal Vaccine: 65+ Years (2 - PPSV23 or PCV20) [facility] Start: 06-04-2019 Influenza vaccination INFLUENZA VACC INE (#1) [facility] Start: 06-17-2013 DTaP/Tdap/Td Vaccine s (1 - Tdap) DTaP/Tdap/Td Vaccines (1 - Tdap) [facility] Start: 06-17-2013 Urine microalbumin profile DTaP,Tdap,Td Vaccine (1 - Tdap) [facility] Start: 2002 Pneumococcal vaccination PNEUMOCOCCAL VACCINE SERIES (1 of 2 - PCV13) [facility] Start: 1997 RSV Vaccine (1 - 1-d ose 60+ series) RSV Vaccine (1 - 1-dose 60+ series) [facility] Start: 1987 Colonoscopy COLON CANCER S CREENING DISCUSSION [facility] Start: 1987 Zoster vaccine hzv l cathryn for subcutaneous use ZOSTER (SHINGLES) VACCINE (1 of 2) [facility] Start: 1987 Zoster Vaccines (1 o f 2) Zoster Vaccines (1 of 2) [facility] Start: 1959 DTaP/Tdap/Td Vaccine s (1 - Tdap) DTaP/Tdap/Td Vaccines (1 - Tdap) [facility] Start: 1956 Shingrix Vaccine (1 of 2) Shingrix Vaccine (1 of 2) [facility] Start: 1956 Third diphtheria, tetanus and acellular pertussis (DTaP) vaccination TDAP (ADULT) [facility] Start: 1955 Anxiety Screening Anxiety Screening [facility] Start: 1955 Depression Screening Depression Scre ening [facility] Start: 1955 Diabetes mellitus screening Diabetes Screening [facility] Start: 1955 Tetanus vaccination TETANUS [facility] Start: 02-01-1938 Examination of skin Derm Melanoma Sk in Check [facility] Start: 1937 Lipid panel Lipid Panel [facility] Start: 1937 Medicare Annual Wellness Visit Medicare Annual Wellness Visit (AWV) [facility] Comprehensive metabo lic 1999 panel - Serum or Plasma [facility] Comprehensive metabo lic 2000 panel - Serum or Plasma [facility] End: 10-28-2023 Continuous Pulse oximetry, In Phase 1 Continuous Pulse oximetry, In Phase 1 Respiratory Care Routine Continuous until discontinued starting 10/28/2023 [facility] Work Phone: Comment on above: Continuous until dis continued starting 10/28/2023 CT Abdomen and Pelvi s W contrast IV [facility] CT Chest W contrast IV [facility] Head W contrast IV [facility] CT Head WO and W contrast IV [facility] CT Neck W contrast IV [facility] Dermatopathology- DE RM LAB [facility] Work Phone: Comment on above: Release Upon Orderin g for 1 Occurrences starting 10/28/2023 Jnhuqxu-3-Jsgxmmvsq dehydrogenase [Enzymatic activity/mass] in Red Blood Cells [facility] Work Phone: Measurement of total hemoglobin concentration [facility] Work Phone: End: 10-28-2023 NM Spect/CT Localization add on Single Day [facility] Service Area Work Phone: Comment on above: Once for 1 Occurrenc es starting 10/28/2023 until 10/28/2023 US Extremity [facility] Immunizations Immunization Date Immunization Notes Care Provider Fa sherron 08-12-2023 Prevnar 20 Steve De Paz Other [facility] 07-05-2023 influenza virus vaccine, unspecified formulation DO Steve De Paz Work Phone: [facility] 07-05-2023 influenza, high dose seasonal, preservative-free Steve De Paz Other [employer] Other 08-20-2022 influenza virus vaccine, split virus (incl. purified surface antigen) Steve De Paz Other [id number] [employer] Other 08-20-2022 influenza virus vaccine, unspecified formulation Elkin Holly MD Work Phone: [facility] 07-22-2021 influenza virus vaccine, split virus (incl. purified surface antigen) Steve De Paz Other [facility] [employer] Other 07-22-2021 influenza virus vaccine, unspecified formulation DO Steve De Paz Work Phone: [facility] 12-09-2020 SARS-CoV-2 (COVID-19 ) mRNA-[id number] vaccine Cristela WINTER [facility] 07-09-2020 influenza virus vaccine, split virus (incl. purified surface antigen) Steve De Paz Other [facility] [employer] Other 07-09-2020 influenza virus vaccine, unspecified formulation DO Steve De Paz Work Phone: [facility] 07-05-2019 influenza virus vaccine, split virus (incl. purified surface antigen) Steve De Paz Other [facility] [employer] Other 07-05-2019 influenza virus vaccine, unspecified formulation DO Steve De Paz Work Phone: [facility] 06-30-2018 influenza virus vaccine, split virus (incl. purified surface antigen) Steve De Paz Other [facility] [employer] Other 06-30-2018 influenza virus vaccine, unspecified formulation DO Steve De Paz Work Phone: [facility] 06-29-2017 influenza virus vaccine, split virus (incl. purified surface antigen) Steve De Paz Other [employer] Other 06-29-2017 influenza virus vaccine, unspecified formulation DO Steve De Paz Work Phone: [facility] 06-22-2016 influenza virus vaccine, split virus (incl. purified surface antigen) Steve De Paz Other [facility] [employer] Other 06-22-2016 influenza virus vaccine, unspecified formulation DO Steve De Paz Work Phone: [facility] 07-19-2015 pneumococcal conjuga te vaccine, 13 valent Steve De Paz Other [facility] 07-16-2015 influenza virus vaccine, split virus (incl. purified surface antigen) Steve De Paz Other [facility] [employer] Other 07-16-2015 influenza virus vaccine, unspecified formulation DO Steve De Paz Work Phone: [facility] 06-16-2013 tetanus and diphther ia toxoids, adsorbed, preservative free, for adult use (5 Lf of tetanus toxoid and 2 Lf of diphtheria toxoid) Steve De Paz Other [facility] 04-06-2011 tetanus and diphther ia toxoids, adsorbed, preservative free, for adult use (5 Lf of tetanus toxoid and 2 Lf of diphtheria toxoid) Steve De Paz Other [facility] 04-03-2009 pneumococcal polysaccharide vaccine, 23 valent Steve De Paz Other [facility] Payers Date Payer Category Payer Unknown [id number] 2002 Medicare [id number] 1959 Medicare [id number] 1959 Self-pay [id number] 1959 Unknown [id number] 1937 Unknown [id number] 2.16.8 [id number] 1937 Unknown [id number] 2.16.84 0.1.575134.3.579.2.593 1937 Unknown [id number] 2.16.84 0.1.084210.3.579.2.593 1937 Unknown [id number] 2.16.84 0.1.657396.3.579.2.593 1937 Unknown [id number] 2.16.84 0.1.471488.3.579.2.593 1937 Unknown [id number] 2.16.84 0.1.479347.3.579.2.593 1937 Unknown [id number] 2.16.84 0.1.592167.3.579.2.593 1937 Unknown [id number] 2.16.84 0.1.483604.3.579.2.593 1937 Unknown [id number] 2.16.84 0.1.025532.3.579.2.593 1937 Unknown [id number] 2.16.84 0.1.768375.3.579.2.593 1937 Unknown [id number] 2.16.84 0.1.247222.3.579.2.593 1937 Unknown [id number] 2.16.84 0.1.991778.3.579.2.593 1937 Unknown [id number] 2.16.84 0.1.596988.3.579.2.593 1937 Unknown [id number] 2.16.84 0.1.530835.3.579.2.593 1937 Unknown [id number] 2.16.84 0.1.112031.3.579.2.593 1937 Unknown [id number] 2.16.84 0.1.674833.3.579.2.593 1937 Unknown [id number] 2.16.84 0.1.994004.3.579.2.593 1937 Unknown [id number] 2.16.84 0.1.268988.3.579.2.593 1937 Unknown [id number] 2.16.84 0.1.428331.3.579.2.593 1937 Unknown [id number] 2.16.84 0.1.564630.3.579.2.1243 1937 Unknown [id number] 2.16.84 0.1.632768.3.579.2.1243 1937 Unknown [id number] 2.16.84 0.1.212884.3.579.2.1243 1937 Unknown [id number] 2.16.8 [id number] 1935 Unknown [id number] 2.16.8 [id number] 1935 Unknown [id number] 2.16.8 40.1.524967.3.579.2.1244 1935 Unknown [id number] 2.16.8 40.1.271268.3.579.2.1244 1935 Unknown [id number] 2.16.84 0.1.005295.3.579.2.1259 1935 Unknown [id number] 2.16.8 40.1.024259.3.579.2.727 1935 Unknown [id number] 2.16.8 40.1.273523.3.579.2.727 Unknown [id number] 2.16.84 0.1.773858.3.579.2.593 Unknown [id number] 2.16.8 40.1.427762.3.579.2.531 Unknown [id number] 2.16.8 40.1.169136.3.579.2.531 Unknown [id number] 2.16.8 40.1.711717.3.579.2.531 Unknown [id number] 2.16.8 40.1.719499.3.579.2.531 Social History Date Type Detail Facility Tobacco smoking status PRIS Unknown if ever smoked [facility] Start: 1935 Sex Assigned At Not on file O [facility] Start: 10-08-2023 End: 05-01-2024 Sex Assigned At [facility] Other Start: 03-28-2020 End: 05-22-2024 Tobacco smoking status Never smoked tobacco (finding) [facility] Start: 1935 Sex Assigned At Male F [facility] Start: 10-08-2023 End: 05-01-2024 Tobacco use and exposure Smokeless tobacco non-user [facility] Work Phone: Start: 10-08-2023 End: 05-01-2024 History of Social function [facility] Work Phone: Start: 09-28-2023 End: 01-17-2024 Exposure to SARS-CoV-2 (event) Not sure [facility] Start: 10-28-2023 End: 05-01-2024 Alcohol intake Lifetime non-drinker (finding) [facility] Work Phone: National Score (1-100), lower number is lower risk 80 [facility] Functional Status Date Assessment Result Facility 05-22-2024 Functional Status N/A [facility] 05-17-2023 Functional Status N/A [facility] 05-04-2022 Functional Status N/A [facility] Clinical Notes 10-10-2021 to 05-22-2024 Patient InstructionsCaryl Ley MD - 05/01/2024 9:00 AM Wilfredo Bobby MD - 01/17/2024 3:45 PM Vinicius Holly MD - 01/17/2024 3:30 PM Vinicius Holly MD - 11/08/2023 2:45 PM EST Note Date & Type Note Facility 05-22-2024 Hospital Discharge instructions Patient Education 05/22/2024 09:19:11 Prostate Cancer Screening Prostate Cancer Screening Prostate cancer screening is testing that is done to check for the presence of prostate cancer in men. The prostate gland is a walnut-sized gland that is located below the bladder and in front of the rectum in males. The function of the prostate is to add fluid to semen during ejaculation. Prostate cancer is one of the most common types of cancer in men. Who should have prostate cancer screening? Screening recommendations vary based on age and other risk factors, as well as between the professional organizations who make the recommendations. In general, screening is recommended if: You are age 50 to 70 and have an average risk for prostate cancer. You should talk with your health care provider about your need for screening and how often screening should be done. Because most prostate cancers are slow growing and will not cause , screening in this age group is generally reserved for men who have a 10- to 15-year life expectancy. You are younger than age 50, and you have these risk factors: ?Having a father, brother, or uncle who has been diagnosed with prostate cancer. The risk is higher if your family member's cancer occurred at an early age or if you have multiple family members with prostate cancer at an early age. ?Being a male who is Black or is of [place] or sub-Saharan descent. In general, screening is not recommended if: You are younger than age 40. You are between the ages of 40 and 49 and you have no risk factors. You are 70 years of age or older. At this age, the risks that screening can cause are greater than the benefits that it may provide. If you are at high risk for prostate cancer, your health care provider may recommend that you have screenings more often or that you start screening at a younger age. How is screening for prostate cancer done? The recommended prostate cancer screening test is a blood test called the prostate-specific antigen (PSA) test. PSA is a protein that is made in the prostate. As you age, your prostate naturally produces more PSA. Abnormally high PSA levels may be caused by: Prostate cancer. An enlarged prostate that is not caused by cancer (benign prostatic hyperplasia, or BPH). This condition is very common in older men. A prostate gland infection (prostatitis) or urinary tract infection. Certain medicines such as male hormones (like testosterone) or other medicines that raise testosterone levels. A rectal exam may be done as part of prostate cancer screening to help provide information about the size of your prostate gland. When a rectal exam is performed, it should be done after the PSA level is drawn to avoid any effect on the results. Depending on the PSA results, you may need more tests, such as: A physical exam to check the size of your prostate gland, if not done as part of screening. Blood and imaging tests. A procedure to remove tissue samples from your prostate gland for testing (biopsy). This is the only way to know for certain if you have prostate cancer. What are the benefits of prostate cancer screening? Screening can help to identify cancer at an early stage, before symptoms start and when the cancer can be treated more easily. There is a small chance that screening may lower your risk of dying from prostate cancer. The chance is small because prostate cancer is a slow-growing cancer, and most men with prostate cancer from a different cause. What are the risks of prostate cancer screening? The main risk of prostate cancer screening is diagnosing and treating prostate cancer that would never have caused any symptoms or problems. This is called overdiagnosisand overtreatment. PSA screening cannot tell you if your PSA is high due to cancer or a different cause. A prostate biopsy is the only procedure to diagnose prostate cancer. Even the results of a biopsy may not tell you if your cancer needs to be treated. Slow-growing prostate cancer may not need any treatment other than monitoring, so diagnosing and treating it may cause unnecessary stress or other side effects. Questions to ask your health care provider When should I start prostate cancer screening? What is my risk for prostate cancer? How often do I need screening? What type of screening tests do I need? How do I get my test results? What do my results mean? Do I need treatment? Where to find more information The [place] Cancer Society: www.cancer.org [place] [employer] Association: www.auanet.org Contact a health care provider if: You have difficulty urinating. You have pain when you urinate or ejaculate. You have blood in your urine or semen. You have pain in your back or in the area of your prostate. Summary Prostate cancer is a common type of cancer in men. The prostate gland is located below the bladder and in front of the rectum. This gland adds fluid to semen during ejaculation. Prostate cancer screening may identify cancer at an early stage, when the cancer can be treated more easily and is less likely to have spread to other areas of the body. The prostate-specific antigen (PSA) test is the recommended screening test for prostate cancer, but it has associated risks. Discuss the risks and benefits of prostate cancer screening with your health care provider. If you are age 70 or older, the risks that screening can cause are greater than the benefits that it may provide. This information is not intended to replace advice given to you by your health care provider. Make sure you discuss any questions you have with your health care provider. Document Revised: 03/16/2022 Document Reviewed: 03/16/2022 [employer] Private Patient Education 2022 [employer]. Follow Up Care 05/17/2023 09:45:06 With:MOY ARRIAGA, Cristela Carbajal, URL Address: [facility] [address], [place] [address]- [phone] When: Unknown Comments:1 yr w/ PSA [facility] 05-22-2024 Note Patient Education Oncology Prostate Cancer Screening Prostate cancer screening is testing that is done to check for the presence of prostate cancer in men. The prostate gland is a walnut-sized gland that is located below the bladder and in front of the rectum in males. The function of the prostate is to add fluid to semen during ejaculation. Prostate cancer is one of the most common types of cancer in men. Who should have prostate cancer screening? Screening recommendations vary based on age and other risk factors, as well as between the professional organizations who make the recommendations. In general, screening is recommended if: ? You are age 50 to 70 and have an average risk for prostate cancer. You should talk with your health care provider about your need for screening and how often screening should be done. Because most prostate cancers are slow growing and will not cause , screening in this age group is generally reserved for men who have a 10- to 15-year life expectancy. ? You are younger than age 50, and you have these risk factors: ? Having a father, brother, or uncle who has been diagnosed with prostate cancer. The risk is higher if your family member's cancer occurred at an early age or if you have multiple family members with prostate cancer at an early age. ? Being a male who is Black or is of [place] or sub-Saharan descent. In general, screening is not recommended if: ? You are younger than age 40. ? You are between the ages of 40 and 49 and you have no risk factors. ? You are 70 years of age or older. At this age, the risks that screening can cause are greater than the benefits that it may provide. If you are at high risk for prostate cancer, your health care provider may recommend that you have screenings more often or that you start screening at a younger age. How is screening for prostate cancer done? The recommended prostate cancer screening test is a blood test called the prostate-specific antigen (PSA) test. PSA is a protein that is made in the prostate. As you age, your prostate naturally produces more PSA. Abnormally high PSA levels may be caused by: ? Prostate cancer. ? An enlarged prostate that is not caused by cancer (benign prostatic hyperplasia, or BPH). This condition is very common in older men. ? A prostate gland infection (prostatitis) or urinary tract infection. ? Certain medicines such as male hormones (like testosterone) or other medicines that raise testosterone levels. A rectal exam may be done as part of prostate cancer screening to help provide information about the size of your prostate gland. When a rectal exam is performed, it should be done after the PSA level is drawn to avoid any effect on the results. Depending on the PSA results, you may need more tests, such as: ? A physical exam to check the size of your prostate gland, if not done as part of screening. ? Blood and imaging tests. ? A procedure to remove tissue samples from your prostate gland for testing (biopsy). This is the only way to know for certain if you have prostate cancer. What are the benefits of prostate cancer screening? ? Screening can help to identify cancer at an early stage, before symptoms start and when the cancer can be treated more easily. ? There is a small chance that screening may lower your risk of dying from prostate cancer. The chance is small because prostate cancer is a slow-growing cancer, and most men with prostate cancer from a different cause. What are the risks of prostate cancer screening? The main risk of prostate cancer screening is diagnosing and treating prostate cancer that would never have caused any symptoms or problems. This is called overdiagnosisand overtreatment. PSA screening cannot tell you if your PSA is high due to cancer or a different cause. A prostate biopsy is the only procedure to diagnose prostate cancer. Even the results of a biopsy may not tell you if your cancer needs to be treated. Slow-growing prostate cancer may not need any treatment other than monitoring, so diagnosing and treating it may cause unnecessary stress or other side effects. Questions to ask your health care provider ? When should I start prostate cancer screening? ? What is my risk for prostate cancer? ? How often do I need screening? ? What type of screening tests do I need? ? How do I get my test results? ? What do my results mean? ? Do I need treatment? Where to find more information ? The [place] Cancer Society: www.cancer.org ? [place] U[employer] Association: www.auanet.org Contact a health care provider if: ? You have difficulty urinating. ? You have pain when you urinate or ejaculate. ? You have blood in your urine or semen. ? You have pain in your back or in the area of your prostate. Summary ? Prostate cancer is a common type of cancer in men. The prostate gland is located below the bladder and in front of the rectum. (more content not included)... [facility] 05-02-2024 Note Patient here for 6 m [...] All other systems reviewed and are negative. [facility] 05-02-2024 Note Cardiovascular Medic [facility] SUBJECTIVE Chief Complaint Patient presents with Atrial [...] exposure: Past Smok (more content not included)... 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 Holly @ [facility] -->not getting immunotherapy yet; managed by Dr. [...] accurate and complete. 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 [...] & Neck Surgery documented in this encounter [facility] Work Phone: 01-17-2024 History of Present illness [...] History Patient lives alone, daughter lives in [place] Family History Denies family history of melanoma [...] Elkin Holly MD documented in this encounter [facility] Work Phone: 11-08-2023 History of Present illness [...] another skin cancer on the left forearm. 2/5/24: Patient returns for follow-up. He is overall [...] History Patient lives alone, daughter lives in [place] Family History Denies family history of melanoma [...] Elkin Holly MD documented in this encounter [facility] Work Phone: 10-28-2023 Miscellaneous Notes ( sln [...] Surgeons * Elkin Holly - Primary Resident/Fellow/Other Harp Repairer: Surgeon(s) and Role:enmayeni Procedure Summary Anesthesia: General [...] DERMATOPATHOLOGY Elkin Holly MD 10/28/2023 1404 Staff: Oscillograph Technician: Miracle Lara RN Scrub Person: Anisa Cunningham [...] fascia Elkin Holly documented in this encounter [facility] Work Phone: 10-28-2023 Note Formatting of this n ote is different from the original. 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] Procedures Wide local excision right forehead melanoma greater than 4 cm Right parotidectomy without nerve dissection Identification of sentinel node with gamma probe Surgeons * Elkin Holly - Primary Resident/Fellow/Other Harp Repairer: Surgeon(s) and Role:zeusni Procedure Summary Anesthesia: General ASA: III Anesthesia [...] DERMATOPATHOLOGY Elkin Holly MD 10/28/2023 1404 Staff: Oscillograph Technician: Miracle Lara, RN Scrub Person: Anisa Cunningham [...] excision Other deep to fascia Elkin Holly [facility] Work Phone: 10-28-2023 Hospital Discharge instructions Naima Rodgers MD - 10/28/2023 12:13 PM EST Facial/Neck Incision Care: Cleanse all facial/neck incisions twice daily with baby shampoo or mild soap and water. Apply petroleum jelly/vaseline to incision line twice daily until incision has healed. documented in this encounter [facility] Work Phone: 10-28-2023 Attending History and physical note H&P reviewed. The patient was examined and there are no changes to the H&P. Source Note - User [facility] - 10/19/2023 12:00 AM EST [facility] Work Phone: 10-28-2023 History and physical note H&P reviewed. The patient was examined and there are no changes to the H&P. Source Note - User [facility] - 10/19/2023 12:00 AM EST documented in this encounter [facility] Work Phone: 10-26-2023 Note Patient here for [...] All other systems reviewed and are negative. [facility] 10-26-2023 Note [place] Cardiology Consul t Note Reason for visit: [...] tablet Take 200 (more content not included)... 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 No bleeding complications Jul, Primary hypertension (ICD-10 [...] (ICD-10 - Z79.899) Check labs: CBC, ALT [employer] Other 08-28-2023 Evaluation note* Encounter Date Diagnosis Assessment Notes Treatment Notes Treatment Clinical Notes May, Seasonal allergic rhinitis due to pollen (ICD-10 - J30.1) [employer] Other 08-14-2023 Hospital Discharge instructions Patient Education [...] such as BRCA1 and BRCA2. 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 This is called the [place] score and the total score can range from 6 10, indicating how likely it is that the cancer will spread (metastasize) to other parts of the body. The higher the score, the greater thelikelihood that the cancer will spread. [place] 6 or lower: This indicates that the [...] stress of having cancer. General instructions Take acba-iyk-ndujexc and prescription medicines only as told by your health care provider. If you have to go to the hospital, notify your cancer specialist (oncologist). Keep all follow-up visits. This is important. Where to find more information [place] Cancer Society: www.cancer.org [place] Society of Clinical Oncology: www.cancer.net National Cancer [place]: www.cancer.gov Contact a health care provider if: [...] provider. Document Revised: 12/17/2021 Document Reviewed: 12/17/2021 [employer] Private Patient Education 2022 [employer]. Follow Up Care 05/04/2022 13:27:43 With:MOY ARRIAGA, Cristela Carbajal, URL Address: [facility] [address], [place] [facility] [place] [address]- [phone] When:Within 1 Year(s) Comments:PSA [facility] 07-28-2023 Evaluation note* Encounter Date Diagnosis Assessment Notes Treatment Notes Treatment Clinical Notes Apr, Tinea corporis (ICD-10 - B35.4) Decrease lotrisone to q HS Apr, Venous stasis dermatitis of left lower extremity (ICD-10 - I87.2) Avoid salt and elevate lower extremities, support stockings, inspect legs and feet daily for blisters and ulcerations. Restart wearing support stockings during the daytime [employer] Other 04-21-2023 Evaluation note* Encounter Date Diagnosis [...] exercise and AHA diet plan. Avoid decongestants [employer] Other 04-05-2023 Evaluation note* Encounter Date Diagnosis [...] are maintaining regular scheduled appts with their executive chef. 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 After all nuclear material had been [...] up the following day for postoperative care.[facility] 05-07-2022 NoteOPERATIVE NOTE OPERATION DATE: [...] ensuring mobility, phacoemulsification was performed in a yeqrbsk-rev-vxsisl-type fashion. After all nuclear material had been [...] up the following day for postoperative care.[facility] [id number] NoteHISTORY AND PHYSICAL EXAMINATION Date:05/06/2022 HISTORY: Patient [...] decline other than that of cataract. 2. [id number] patient was briefed in the office and [...] and go forward with this elective procedure.[facility] [id number] Hospital Discharge instructions Patient Education 05/04/2022 13:26:39 [...] urethra. Follow these instructions at home: Take pwwk-ezu-ycqkcuf and prescription medicines only as told by [...] 09/20/2006 Document Revised: 08/15/2019 Document Reviewed: 10/25/2017 [employer] Private Patient Education simfy. Follow Up Care 04/11/2021 11:38:50 With:MOY ARRIAGA, Cristela Carbajal, URL Address: [facility] [address] , [place] [address]- [phone] When:Within 1 Year(s) Comments:w/ PSA [facility] 07-14-2022 NotePRE-OP HISTORY AND PHYSICAL Date:04/15/2022 HISTORY: [...] and go forward with his elective procedure.[facility] [id number] NoteOP Note OPERATION DATE: 04/16/2022 SURGEON: Debbie [...] ensuring mobility, phacoemulsification was performed in a vobjaex-zvm-yxpipl-type fashion. After all nuclear material had been [...] up the following day for postoperative care.[facility] 11-03-2021 Evaluation note* Encounter Date [...] working and gentle motion and strength exercise. [employer] Other 01-07-2022 Evaluation note* Encounter Date Diagnosis [...] in office today. Prior medical notes from [facility] and history have been reviewed. At [...] non-union discussed. We discussed the potential for prison cosmetic deformity over the fracure site. Oct, Other See orders for this visit as documented in the electronic medical record. [employer] Other Evaluation + Plan note Future Appointments Appointment Date:05/17/2023 08:45:00 AM Scheduled Provider:Cristela WINTER MD Location:[facility] Appointment Type:URO Office Visit Diagnostic Tests Pending * PSA Total 05/04/22 [facility] evaluation + Plan note Future Appointments Appointment Date:05/22/2024 08:45:00 AM Scheduled Provider:Cristela WINTER MD Location:[facility] Appointment Type:URO Office Visit Diagnostic Tests Pending * PSA Total 05/17/23 [facility] evaluation + Plan note Future Appointments Appointment Date:05/25/2025 08:00:00 AM Scheduled Provider:Cristela WINTER MD Location:[facility] Appointment Type:URO Office Visit Diagnostic Tests Pending * PSA Total 05/22/24 [facility] U[facility] evaluation noteNo assessment information available [facility] Work Phone: Evaluwlnoo noteNo [employer]ort [employer] Other Evaluation note* Diagnosis 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) documented in this encounter [facility] Work Phone: Evaluation note* Diagnosis 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) Post-op pain Other acute postoperative pain HTN (hypertension) Unspecified essential hypertension Hyperlipidemia Other and unspecified hyperlipidemia Atrial fibrillation (CMS/HCC) Atrial fibrillation documented in this encounter [facility] Work Phone: Evaluation note* Diagnosis Malignant melanoma of forehead (CMS/HCC) documented in this encounter [facility] Work Phone: Evaluation note* Diagnosis Malignant melanoma of forehead (CMS/HCC) documented in this encounter [facility] Work Phone: Evaluation note* Diagnosis Onset Date Resolution Status Melanoma of head acute [facility] Work Phone: Evaluation note* Diagnosis Onset Date Resolution Status Cardiac pacemaker acute Encounter for coordination of complex care acute History of prostate cancer a cute Melanoma of head acute Rheumatoid arthritis acute Cardiac pacemaker acute Encounter for coordination of complex care acute History of prostate cancer a cute Melanoma of head acute Rheumatoid arthritis acute [facility] Work Phone: Evaluation note* Diagnosis Brow ptosis, right- Primary Dermatochalasis of right upper eyelid documented in this encounter [facility] Work Phone: Evaluation note* Diagnosis Onset Date [...] (hypertension) acute Hypercholesterolemia acute Rheumatoid arthritis acute [facility] Work Phone: Evaluation note* Diagnosis Malignant melanoma of forehead (Multi)- Primary documented in this encounter [facility] Work Phone: Evaluation note* Diagnosis Onset Date [...] Melanoma of head acute Rheumatoid arthritis acute [facility] Work Phone: Evaluation note* Diagnosis Onset Date Resolution Status Cardiac pacemaker acute Encounter for coordination of complex care acute History of prostate cancer a cute Melanoma of head acute Rheumatoid arthritis acute Anemia acute ASHD (arteriosclerotic heart disease) acute Atrial fibrillation acute HTN (hypertension) acute Hypercholesterolemia acute Melanoma of head acute Rheumatoid arthritis acute Thrombocytopenia acute [facility] Work Phone: Evaluation note* Diagnosis Dermatochalasis of both upper eyelids- Primary Myogenic ptosis of bilateral eyelids documented in this encounter [facility] general Narrative - Reported* Type Description Date Medical History Arthritis Surgical History cardiac pacemeker [employer] Other [employer] general Narrative - Reported* Type Description Date [...] History COLONOSCOPY Hospitalization History SEE SURGICAL HX [employer] Other [employer] general Narrative - Reported* Type Description Date Surgical History cardiac pacemeker 2012 Surgical History EXTRACTION OF CATARACT OF BOTH EYES 2021 Surgical History REPLACEMENT, ICD, BIVENTRICULAR 2020 Surgical History CABG Surgical History MVR Surgical History COLONOSCOPY Hospitalization History SEE SURGICAL HX [employer] Other [employer] general Narrative - Reported* Type Description Date [...] History COLONOSCOPY Hospitalization History SEE SURGICAL HX [employer] Other History general Narrative - Reported* Type [...] History COLONOSCOPY Hospitalization History SEE SURGICAL HX [employer] Other Hospital course Narrative No data available for this section [facility] progmvzt note No data available for this section [facility] progohsk note Author Adilene Weinberg [facility] December 17, 2023 4:31pm Note Date/Time December 17, 2023 11: 39am [facility] [place] [address] Cancer Center Note Signed Patient: Nelly Hannon MR#: [id number] : 1935 Acct:[id number] Age/Sex: 88 / M Type: DEP AMB [...] of recurrence. The patient's daughter wholives in [place] will be available by phone consultation at the time of his follow-up. He does have capacity for decision-making. All questions were answered over this 60-minute initial consultation. 12/17/2023: Discussion of negative BRAF status and no evidence of C IRON WORKER disease on contrast head CT from 11/29/2023. [...] the deep margin. He was referred to [facility] head neck oncologic surgery. On 10/28/2023 [...] specimen and this will be requested from [facility]. Given his history of rheumatoid arthritis [...] at that time. She lives in the [facility] and will be available by [facility] for his follow-up appointment, hopefully within the [...] 2. Discussion of adjuvant options 11/24/2023 at [facility]. Negative BRAF status. PET/CT negative for [...] up visit and go over BRAF results [facility] Medical History Medical History Cardiac pacemaker Carotid stenosis Bradycardia Rheumatoid arthritis History of prostate cancer CAD (coronary artery disease) BPH (benign prostatic hyperplasia) Atrial fibrillation Hyperlipidemia HTN (hypertension) Melanoma Surgical History Surgical History H/O cystoscopy Family History Family History Brother Heart disease Legacy FamHx Relation: Brother(s) Father Heart disease 85 yrs Mother 65 yrs Cancer Legacy Famx Problem: Diagnosed with Cancer History of ovarian [...] findings negative for BRAF V600 Pathology review [facility] 10/28/2023: A. Skin wide local excision [...] No extracapsular extension is seen) C. Node, Gove lymph node #2 right intraparotid Metastatic malignant [...] CT. Impression dictated by: Festus Silver Jr., DSantosOSantos11/19/2023 1:01 PM Enhanced and unenhanced head CT [...] <Electronically signed by MD Adilene Weinberg> 12/17/[address] [facility] Work Phone: Reason for referral (narrative)* Consultation (Routine) - Authorized Specialty Diagnoses / Procedures Referred By Contac t Referred To Contact Hematology and Oncology Diagnoses Malignant melanoma of forehead (CMS/HCC) [place] [address] [address] Department [place] [address] Adilene Weinberg MD [address] [place] [address] Referral ID Status Reason Start Date Expiration Date Visits Requested Visits Authorized [id number] Authorized Specialty Services Required 11/08/2023 11/07/2024 1 1 * Imaging (Routine) - Pending Review Specialty Diagnoses / Procedures Referred By Contbarrie t Referred To Contact Radiology Diagnoses Malignant melanoma of forehead (CMS/HCC) Procedures NM PET [place] [address] [facility] Department [place] [address] Referral ID Status Reason Start Date Expiration Date Visits Requested Visits Authorized [id number] Pending Review Perform Procedure 11/08/2023 11/07/2024 3 3 [facility] Work Phone: Summary Purpose Family History No [...] (CMS/HCC) Procedures [place] [address] [address] [place] [address] Referral ID Status Reason Start Date Expiration Date Visits Requested Visits Authorized [id number] Pending Review Perform Procedure 10/08/2023 10/07/2024 2 2 Additional Source Comments (unrecognized sect ion and content) No Status Records FoundNo Status Records FoundNo Status Records FoundNo Status Records FoundNo Status Records FoundNo Status Records FoundNo Status Records FoundNo Status Records FoundNo Status Records Found INFORMATION SOURCE (unrecogn ized section and content) DATE CREATED AUTHOR 09/16/2021 [facility] DATE CREATED AUTHOR AUTHOR'S ORGANIZ ATION 03/12/[address] [facility] DATE CREATED AUTHOR AUTHOR'S ORGANIZ ATION 11/09/2023 [facility] DATE CREATED AUTHOR AUTHOR'S ORGANIZ ATION 01/21/2024 [facility] DATE CREATED AUTHOR AUTHOR'S ORGANIZ ATION 02/18/2024 [facility] EPIC DATE CREATED AUTHOR AUTHOR'S ORGANIZ ATION 03/01/2024 [facility] DATE CREATED AUTHOR AUTHOR'S ORGANIZ ATION 04/28/2024 [facility] DATE CREATED AUTHOR AUTHOR'S ORGANIZ ATION 05/24/2024 [facility] DATE CREATED AUTHOR AUTHOR'S ORGANIZ ATION 05/26/2024 [facility] REASON FOR VISIT (unrecogniz ed section and content) Reason Comments New Patient Visit Specialty Diagnoses / Procedures Referred By Faviola t Referred To Contact Diagnoses 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) [C43.39] Procedures CO EXCISION MALIGNANT LESION F/E/E/N/L >4.0 CM CO DERMAL AUTOGRAFT F/S/N/H/F/G/M/D GT [address] GUIDANCE NEEDLE PLACEMENT ( sln inj @ 7:00 am ) Excision Lesion Skin Head/Neck Excision Full Thickness Skin Graft Torso Biopsy Lymph Node Head/[place] [address] [facility] Department [place] [address] [facility] [place] [address] [place] [address] Referral ID Status Reason Start Date Expiration Date Visits Re quested Visits Authorized [id number] 1 1 Reason Comments Dermatochalasis Evaluation Care [...] Team Status: Inactive Member Role Status Dates Stvee De Paz DO Primary Care Provide r, Attending Provider Active Start: April 25, 2024 End: April 25, 2024 Team Status: Inactive Member Role Status Dates Steve De Paz DO Primary Care Provider Active Michele Arteaga MD Attending Provider Active Team Status: Inactive Member Role Status Dates Steve De Paz DO Primary Care Provider Active Jose R Cruz MD Attending Provider Active Service Station Operator Relationship Specialty Start Date End Date Steve De Paz DO [address] [facility] [place] [address] PCP - General Internal Medicine 10/28/23 Service Station Operator Relationship Specialty Start Date End Date Steve De Paz DO [address] [facility] [place] [address] PCP - General Internal Medicine 10/28/23 Service Station Operator Relationship Specialty Start Date End Date Steve De Paz DO [address] [place] [address] PCP - General Internal Medicine 10/28/23 Team [...] December 27, 2023 End: December 27, 2023 Service Station Operator Relationship Specialty Start Date End Date Steve De Paz DO [address] [place] [address] [place] [address] PCP - General Internal Medicine 10/28/23 Team Status: Inactive Member Role Status Dates Steve De Paz DO Primary Care Provide r, Attending Provider Active Start: January 19, 2024 End: January 19, 2024 Service Station Operator Relationship Specialty Start Date End Date Steve De Paz DO [address] [place] [address] [place] [address] PCP - General Internal Medicine 10/28/23 Goals (unrecognized section and content) Goals may [...] or prosecute any alcohol or drug abuse patient.[facility] FOR RECORDS PERTAINING TO PATIENTS WHO [...] BE BASED ON THE PRIMARY CLINICAL RECORDS. [email or web address] [facility]. provides no warranty or guarantee of the accuracy or completeness of information in this document.
[2024-06-07 11:29] LABS: Anion Gap 12.3; BUN Creatinine Ratio 18.4; Calcium 9.2 mg/dL (8.5-10.1); Carbon Dioxide 28.8 mmol/L (21.0-32.0); Chloride 97 mmol/L (98-107); Estimated GFR (African America >60 (>=60); Estimated GFR (Non-African Ame 50 (>=60); Glucose 90 mg/dL (74-106); Potassium 4.1 mmol/L (3.5-5.1); Sodium 134 mmol/L (136-145)
== END 2024-06-07 09:08 | disposition home or self-care (01) ==
LOC: LAB 09:09
PROVIDERS: PCP Internal Medicine; Visit Provider Nurse Practitioner Family
DX: I50.41 Acute combined systolic (congestive) and diastolic (congestive) heart failure (principal)
CPT/HCPCS: 36415; 80048

== ENCOUNTER 2024-07-04 01:37 | Outpatient (RCR) | payer MEDICARE, BC, SELFPAY | END 2024-08-03 23:38 | disposition home or self-care (01) | LOC: MM 01:37 | PROVIDERS: PCP Internal Medicine; Visit Provider Internal Medicine | DX: Z51.81 Encounter for therapeutic drug level monitoring (principal); Z79.01 Long term (current) use of anticoagulants; I48.91 Unspecified atrial fibrillation | CPT/HCPCS: 85610; G0463 ==

== ENCOUNTER 2024-08-04 11:34 | Outpatient (RCR) | payer MEDICARE, BC, SELFPAY | END 2024-09-02 23:59 | disposition home or self-care (01) | LOC: MM 11:34 | PROVIDERS: PCP Internal Medicine; Visit Provider Internal Medicine | DX: Z51.81 Encounter for therapeutic drug level monitoring (principal); Z79.01 Long term (current) use of anticoagulants; I48.91 Unspecified atrial fibrillation | CPT/HCPCS: 85610; G0463 ==

== ENCOUNTER 2024-09-04 03:43 | Outpatient (RCR) | payer MEDICARE, BC, SELFPAY | END 2024-10-03 09:34 | disposition home or self-care (01) | LOC: MM 03:43 | PROVIDERS: PCP Internal Medicine; Visit Provider Internal Medicine | DX: Z51.81 Encounter for therapeutic drug level monitoring (principal); Z79.01 Long term (current) use of anticoagulants; I48.91 Unspecified atrial fibrillation ==

== ENCOUNTER 2024-10-05 00:38 | Outpatient (RCR) | payer MEDICARE, BC, SELFPAY | END 2024-11-03 15:19 | disposition home or self-care (01) | LOC: MM 00:38 | PROVIDERS: PCP Internal Medicine; Visit Provider Internal Medicine | DX: Z51.81 Encounter for therapeutic drug level monitoring (principal); I48.91 Unspecified atrial fibrillation; Z79.01 Long term (current) use of anticoagulants | CPT/HCPCS: 85610; G0463 ==

== ENCOUNTER 2024-11-06 02:34 | Outpatient (RCR) | payer MEDICARE, BC, SELFPAY | END 2024-12-01 13:33 | disposition home or self-care (01) | LOC: MM 02:34 | PROVIDERS: PCP Internal Medicine; Visit Provider Internal Medicine | DX: Z51.81 Encounter for therapeutic drug level monitoring (principal); Z79.01 Long term (current) use of anticoagulants; I48.91 Unspecified atrial fibrillation | CPT/HCPCS: 85610; G0463 ==

== ENCOUNTER 2024-12-03 07:47 | Outpatient (RCR) | payer MEDICARE, BC, SELFPAY | END 2024-12-29 13:21 | disposition home or self-care (01) | LOC: MM 07:47 | PROVIDERS: PCP Internal Medicine; Visit Provider Internal Medicine | DX: Z51.81 Encounter for therapeutic drug level monitoring (principal); Z79.01 Long term (current) use of anticoagulants; I48.91 Unspecified atrial fibrillation ==

== ENCOUNTER 2024-12-12 08:45 | Outpatient (OUT) | payer MEDICARE, BC, SELFPAY ==
--- NOTE | 2024-12-12 09:00 | CA_ITS ---
Patient Name: NELLY QUIROZ MR#: [id number] : 1935 Exam Date: 12/12/2024 Ordering Doctor: KAYLEY STAPLES CNP ECHOCARDIOGRAM REPORT PROCEDURE: CA ECHO DOPPLER COMPLETE INDICATIONS: Pulmonary hypertension, pacemaker, bioprosthetic mitral valve COMPARISON: None. DESCRIPTION: COMPLETE ECHOCARDIOGRAM Real-time transthoracic echocardiography with 2D, M-mode, spectral and color flow Doppler performed. QUALITY: Technical quality was good. LEFT VENTRICLE: Normal chamber size. Mild concentric left ventricular hypertrophy. Abnormal septal motion consistent with prior open heart surgery. Systolic function is normal. LV EF: Normal left ventricular ejection fraction, (55%). DIASTOLIC: ATRIAL SEPTUM: Visually appears intact. LEFT ATRIUM: Severe dilatation. RIGHT ATRIUM: Severe dilatation. RIGHT VENTRICLE: Normal chamber size. Systolic function is normal. Pacer wire present. TRICUSPID VALVE: Normal mobility and thickness. No stenosis with moderate regurgitation. Doppler studies reveal severely (>60) elevated right sided pressures. RVSP 69 mmHg MITRAL VALVE: Bio-prosthetic mitral valve appears well seated in the mitral position with normal Doppler flow. Mean diastolic gradient is 4.7 mmHg. Trivial valvular regurgitation. AORTIC VALVE: Normal trileaflet appearance. No visible sclerosis. Normal leaflet mobility. No evidence of aortic valve stenosis. No aortic regurgitation. AORTIC ROOT: Normal diameter and appearance. PULMONIC VALVE: Not well visualized. No stenosis. Mild regurgitation. PERICARDIUM: No evidence of pericardial effusion. IVC: IVC is dilated (2.3 cm), does not collapse. PLEURA: CONCLUSION: 1. Mild concentric left ventricular hypertrophy with normal systolic function. LVEF is estimated at 55%. 2. Normal right ventricular size and systolic function. 3. Severe biatrial dilatation. 4. Bioprosthetic mitral valve is well-seated with normal Doppler flows and trivial regurgitation. 5. Moderate tricuspid regurgitation. 6. Severely elevated right-sided pressures. Adult Echocardiography Procedure Report Left Ventricle LVEDD (3.7 - 5.6 cm): 5.24 cm LVESD (2.2 - 4.0 cm): 3.86 cm LVIVS thickness (0.6 - 1.2 cm): 1.37 cm LVPW thickness (0.5 - 1.0 cm): 1.20 cm LVOT Max Gradient: 1.39 mm[Hg] LVOT Area (cm2): 0.59 m/s Peak Velocity (LVOT): 0.59 m/s Mean Velocity (LVOT): 0.42 m/s LVOT Diameter 2.38 cm Left Atrium LA Volume Index (2D A2C): 67.50 ml/m2 Left Atrium Systolic Dimension: 5.14 cm Mitral Valve MV E to A Ratio: 2.35 Mitral Valve A-Wave Peak Velocity: 0.66 m/s Mitral Valve E-Wave Peak Velocity: 1.92 m/s, 1.56 m/s Right Ventricle Aorta AO Root Diam: 4.07 cm Aortic Valve AoV Area (Peak Gilbert): 3.62 cm2, 3.62 cm2 AoV Area (VTI): 3.73 cm2, 3.73 cm2 Peak Velocity(Antegrade Flow): 0.72 m/s Peak Gradient(Antegrade Flow): 2.10 mm[Hg] Mean Velocity(Antegrade Flow): 0.51 m/s Mean Gradient(Antegrade Flow): 1.18 mm[Hg] Velocity Time Integral: 18.02 cm Tricuspid Valve Peak Velocity (Regurgitant Flow): 3.66 m/s, 3.67 m/s, 3.59 m/s Pulmonic Valve Peak Velocity: 0.74 m/s Peak Gradient: 2.21 mm[Hg], 2.21 mm[Hg] Right Atrium Right Atrium Systolic Pressure: 121.64 ml, 121.64 ml Dictated by: Dylon Kate M.D. on 12/12/2024 at 20:18 Approved by: Dylon Kate M.D. on 12/12/2024 at 20:23
== END 2024-12-12 08:46 | disposition home or self-care (01) ==
LOC: CARD 08:45
PROVIDERS: PCP Internal Medicine; Visit Provider Nurse Practitioner Family
DX: I50.41 Acute combined systolic (congestive) and diastolic (congestive) heart failure (principal); I27.20 Pulmonary hypertension, unspecified
CPT/HCPCS: 93306

== ENCOUNTER 2024-12-15 07:23 | Outpatient (OUT) | payer MEDICARE, BC, SELFPAY ==
--- OUTSIDE RECORDS SUMMARY | 2024-12-15 07:28 | XMS_ITS | CCD ---
Author Organization [facility] Care Team Providers Care Wood Flooring Specialist Name Role Phone Unavailable Primary Care Provider Unavailabl STEVE Guerra Primary Care Unavailable FILIPPO JUDGE Attending Unavailable FILIPPO JUDGE Admitting Unavailable STEVE DE PAZ Referring Unavailable Vinh Lawton Unavailable STEVE DE PAZ Primary Care Physician DO Steve De Paz Primary Care Provider [phone] MD Michele Arteaga Attending Provider DO Steve De Paz Primary Care Provider MD Michele Arteaga Attending Provider Steve De [...] Unavailable ZANDRA, DR WILSON Primary Care Unavailable BALL, DR [...] DO Steve De Paz Primary Care Provider [phone] MD Michele Arteaga Attending Provider MD Jose R Cruz Attending Provider DO Steve De Paz Primary Care Provider [phone] MD Michele Arteaga Attending Provider Unavailable Primary Care Provider Steve Peters DO Primary Care Provider DO Steve De Paz Primary Care Provider [phone] MD Elkin Holly Attending Provider MD Adilene Weinberg Attending Provider MD Elkin Holly Referring Provider DO Steve De Paz Primary Care Provider MD Elkin Holly Attending Provider MD Adilene Weinberg Attending Provider MD Elkin Holly Referring Provider MD Michele Arteaga Attending Provider DEBBIE GORDON Attending Unavailable Ball, DO Steve Primary Care Provider MD Adilene Weinberg Attending Provider MD Elkin Holly Referring Provider Ball, DO Wilson Primary Care Provider Unavailable Primary Care Provider Unavailabl DO Steve Guerra Primary Care Provider MD Adilene Weinberg Attending Provider MD Elkin Holly Referring Provider ELKIN HOLLY Admitting Unavailable ELKIN HOLLY Attending Unavailable BALL, STEVE E Primary Care Unavailable THELKIN CARABALLO E Referring Unavailable BALL, STEVE E Primary Care Unavailable THUENER, ELKIN E Referring Unavailable BALL, STEVE E Primary Care Unavailable Ball, DO Steve Primary Care Provider MD Adilene Weinberg Attending Provider [phone] MD Elkin Holly Referring Provider MD Michele Arteaga Attending Provider [phone] Zandra, DO Wilson Primary Care Provider MD Adilene Weinberg Attending Provider MD Elkin Holly Referring Provider Ball DO, Steve E Primary Care Provider ELKIN HOLLY Attending Unavailable THBITANER, ELKIN E Attending Unavailable BALL, STEVE E Primary Care Unavailable THUENER, ELKIN E Attending Unavailable BALL, STEVE E Primary Care Unavailable DEBBIE BOBBY Attending Unavailable ZANDRA STEVE E Primary Care Unavailable THELKIN CARABALLO Attending Unavailable ZANDRA STEVE E Primary Care Unavailable DO Zandra Steve Primary Care Provider MD Michele Arteaga Attending Provider MD Adilene Weinberg Attending Provider MD Elkin Holly Referring Provider Steve De Paz MD Primary Care Provider Leanna OD, Tereso Unavailable Steve De Paz DO Primary Care Provider Adilene Weinberg MD Attending Provider Elkin Holly MD Referring Provider Michele Arteaga MD Attending Provider Michele Arteaga Admitting Unavailable Michele Arteaga Attending Unavailable Steve De Paz Primary Care Unavailable Michele Arteaga Admitting Unavailable Michele Arteaga Attending Unavailable Steve De Paz Primary Care Unavailable Lenard, Adilene Admitting Unavailable Lenard, Adilene Attending Unavailable Steve De Paz Primary Care Unavailable Michele Arteaga Admitting Unavailable Michele Arteaga Attending Unavailable Zandra Steve Primary Care Unavailable Elkin Holly Admitting Unavailable Elkin Holly Attending Unavailable Steve De Paz Primary Care Unavailable Elkin Holly Referring Unavailable Lenard, Adilene Admitting Unavailable Lenard, Adilene Attending Unavailable Zandra, Steve Primary Care Unavailable Cristela WINTER Attending Unavailable Cristela WINTER Attending Unavailable RAFA, MORE Referring Unavailable NU, FILIPPO Referring Unavailable RAFA, MORE Referring Unavailable NUFILIPPO Referring Unavailable NUFILIPPO Referring Unavailable NU, FILIPPO Referring Unavailable NU, FILIPPO Referring Unavailable NU, FILIPPO Referring Unavailable NUFILIPPO Referring Unavailable NU, FILIPPO Referring Unavailable RAFA, MORE Referring Unavailable RAFA, MORE Referring Unavailable NU, FILIPPO Referring Unavailable NU, FILIPPO Referring Unavailable KAYLEY STAPLES Attending Unavailable NU, FILIPPO Referring Unavailable RAFA, MORE Referring Unavailable KAYLEY STAPLES Attending Unavailable RAFA, MORE Referring Unavailable NUFILIPPO Referring Unavailable Allergies Allergy Classification Reported Allergen(s) Allergy Type Date of Onset Reaction(s) Facility Latex (1 source) Latex Substance Allergy 4 Rash [facility] Penicillins (antibiotic) (1 source) Penicillins Drug Allergy 4 Swelling of the Eye [facility] (20 sources) Latex; Translations: [LATEX] Propensity to adverse reactions (disorder) 9 rash, Hives, Itching [facility] (20 sources) Penicillins; Translations: [penicillins] Drug allergy (disorder) 0 Swelling of the Eye [facility] (2 sources) Penicillin V Drug Allergy Unknown [facility] Other (11 sources) Penicillin Drug Allergy Unknown [facility] Other (11 sources) Penicillins Drug Allergy 4 Other, Other: See Comments, Swelling, Unknown [facility] Work Phone: (5 sources) Penicillins Drug Allergy 4 Unknown [facility] (6 sources) Spironolactone; Translations: [SPIRONOLACTONE ] Drug Allergy 1 Dizziness [facility] (1 source) Penicillins Drug allergy (disorder) 5 [facility] Repository Medications Current Medications Medication Drug [...] take 1 tablet by mouth once daily at mealtime Alfuzosin 10 mg tablet extended release 24 hr Active 10 MG PO Daily November 24, 2023 12:00am administer after the same meal each day Start: 12-22-2021 End: 11-21-2023 take 1 tablet by mouth once daily alfuzosin 10 mg ER Tab 10 mg = 1 tab(s), Oral, Daily, X 90 day(s), # 90 tab(s), Refills(s) 3, Pharmacy: [facility], 178, cm, 05/04/22 12:45:00 EDT, Height/Length Dosing, 76, kg, 05/04/22 12:45:00 EDT, Weight Dosing Start Date: 11/26/22 Stop Date: 11/21/23 Status: Ordered amLODIPine 2.5 mg oral tablet (10 sources) Dihydropyridine Calcium Channel Amador Start: 04-25-2024 take 1 tablet by mouth once daily Amlodipine 2.5 mg tablet Active 2.5 MG PO Daily 90 90 April 24, 2024 11:00pm atorvastatin 40 mg oral tablet (20 sources) HMG-CoA Reductase Inhibitor Start: 04-02-2014 take 1 tablet by mouth once daily Atorvastatin 40 mg tablet Active 40 MG PO Daily July 12, 2017 11:00pm betamethasone 0.5 mg/ml / clotrimazole 10 mg/ml [...] Tablet Active 1 TAB PO Daily July 12, 2017 11:00pm calcium chloride 0.0014 meq/ml / potassium chloride [...] Tablet Active 1 TAB PO Daily July 12, 2017 11:00pm take 1 tablet by mouth every oth er day cholecalciferol (Vitamin D-3) 125 MCG (5000 UT) tablet Take 1 tablet every other day by oral route. Active take 1 capsule by mo uth every [...] Tablet Active 1 TAB PO Daily July 12, 2017 11:00pm ferrous sulfate, 325 mg ferrous sulfate, tablet Take 65 mg by mouth once daily. Active take 1 tablet by ho every twenty-four hours Iron 325 (65 Fe) MG 1 tablet Orally Once a day Active fexofenadine hydrochloride 180 mg oral tablet (20 sources) Histamine-1 Receptor Antagonist Start: 04-08-2020 take 1 tablet by mouth once daily Fexofenadine (Ramona Hives) 180 mg tablet Active 180 MG PO Daily November 24, 2023 12:00am take 1 tablet by ho th every twenty-four hours Fexofenadine HCl 60 MG 1 tablet Orally once a day Active finasteride 5 mg oral tablet (20 sources) 5-alpha Reductase Inhibitor Start: 12-15-2021 take 1 tablet by mouth once daily finasteride 5 mg Tab 5 mg = 1 tab(s), Oral, Daily, # 90 tab(s), Refills(s) 3, Pharmacy: [facility], 178, cm, 05/17/23 9:00:00 EDT, Height/Length Dosing, 75.1, kg, 05/17/23 9:00:00 EDT, Weight Dosing Start Date: 11/26/23 Status: Ordered furosemide 20 mg oral tablet (20 sources) Loop Diuretic Start: 05-25-2024 take 2 tablets by mouth once daily Furosemide 20 mg tablet Active 40 MG PO Daily May 25, 2024 12:19pm Start: 05-25-2024 take 40 mg by mouth once daily Furosemide Active 40 MG PO Daily May 25, 2024 12:19pm Start: 04-08-2020 End: 05-25-2024 take 1 tablet by mouth once daily Furosemide 20 mg tablet Discontinued 20 MG PO Daily November 24, 2023 12:00am May 25, 2024 12:20pm 1 ml HYDROmorphone hydrochloride 1 mg/ml cartridge (1 source) Opioid Agonist Start: 10-28-2023 HYDROmorphone (Dilaudid) injection 0.5 mg hydroxychloroquine sulfate 200 mg oral tablet (20 sources) Antimalarial, Antirheumatic Agent Start: 04-02-2014 take 1 tablet by mouth twice daily Hydroxychloroquine 200 mg tablet Active 200 MG PO Twice daily July 12, 2017 11:00pm take 1 tablet by ho th once daily, then take 1 tablet by mouth twice daily at mealtime hydroxychloroquine (Plaquenil) 200 MG ta blet TAKE 1 TABLET BY MOUTH ONCE DAILY ALTERNATING WITH 1 TABLET TWICE DAILY WITH FOOD. CONFIRM WITH EYE DOCTOR ON YEARLY EYE EXAM FOR MEDICATION TOXICITY. Active Iron (11 sources) Start: 04-02-2014 Patrick Iron Refil ls(s) 0 Start Date: 04/02/14 Status: Ordered Iron Not-Taking Iron Active leflunomide 20 mg oral tablet (20 sources) Antirheumatic Agent Start: 01-19-2024 take 1 tablet by mouth every other day Leflunomide 20 mg tablet Active 20 MG PO .qod January 19, 2024 7:07am Start: 07-13-2017 End: 01-19-2024 Leflunomide 20 mg tablet Dis continued 20 GM PO Daily July 12, 2017 11:00pm January 19, 2024 7:12am Start: 07-13-2017 End: 01-19-2024 take 20 g by mouth once daily Leflunomide Discontinued 20 GM PO Daily July 12, 2017 11:00pm January 19, 2024 7:12am lisinopril 40 mg oral tablet (1 source) Angiotensin Converting Enzyme Inhibitor Start: 04-02-2014 Prinivil 40 mg oral tablet Refills(s) 0 Start Date: 04/02/14 Status: Ordered losartan potassium 50 mg oral tablet (20 sources) Angiotensin 2 Receptor Amador Start: 07-13-2017 End: 10-26-2023 take 1 tablet by mouth once daily Losartan 50 mg tablet Active 50 MG PO Daily July 12, 2017 11:00pm 1 ml meperidine hydrochloride 50 mg/ml injection (1 source) Opioid Agonist Start: 10-28-2023 meperidine PF (Demerol) injection 12.5 mg Nitro 0.4 mg Tab (2 sources) Start: 04-11-2021 Nitro 0.4 mg Tab = 1 tab(s), SubLingual, q5min, PRN Chest pain, # 25 tab(s), Refills(s) 3 Start Date: 04/11/21 Status: Ordered nitroglycerin 0.4 mg sublingual tablet (20 sources) Nitrate Vasodilator Start: 01-19-2024 Nitroglycerin (Nitrostat) 0.4 mg tablet, sublingual Active 0.4 MG SUBLINGUAL As Directed January 18, 2024 11:00pm Start: 04-11-2021 Nitro 0.4 mg T ab [...] Tuberculosis Skin Test, Skin Test Antigen sennosides, custodial 8.6 mg oral tablet (6 sources) Start: [...] 1 tablet by mouth once daily Spironolactone 25 mg tablet Active 0 .ROUTE .COMPLEX 90 December 21, 2023 3:05pm Take 1 tablet by mouth once daily Start: 11-24-2023 End: 12-21-2023 take 1 tablet by mouth once daily Spironolactone 25 mg tablet Discontinued 25 MG PO Daily November 24, 2023 12:00am December 21, 2023 3:05pm Start: 04-11-2021 take 1 mg by mouth [...] Active traMADol hydrochloride 50 mg oral tablet (10 sources) Opioid Agonist Start: 10-28-2023 End: 10-28-2023 [...] take 1 tablet by mouth once daily Warfarin 5 mg tablet Active 5 MG PO Daily July 12, 2017 11:00pm Warfarin 5mg 5 m g 1 1/2 tablet orally daily Active Completed/Discontinued Medications Medication Drug Class(es) Dates Sig (Normalized) Sig (Original) aspirin 81 mg delayed release oral tablet (20 sources) Platelet Aggregation Inhibitor, Nonsteroidal Anti-inflammatory Drug Start: 07-13-2017 End: 01-19-2024 take 1 tablet by mouth once daily Aspirin (Aspir-81) 81 mg Tablet,Delayed Release (Dr/Ec) Discontinued 81 MG PO Daily July 12, 2017 11:00pm January 19, 2024 7:11am Start: 04-02-2014 aspirin Refill s(s) 0 Start Date: 04/02/14 Status: Ordered doxycycline hyclate 100 mg oral capsule (6 sources) Tetracycline-class Drug Start: 01-22-2023 take 1 capsule by mouth twice daily Doxycycline Hyclate 100 MG 1 capsule Orally twice daily for 7 days Jan, Not-Taking hydroCHLOROthiazide 25 mg oral tablet (20 sources) Thiazide Diuretic Start: 07-13-2017 End: 11-24-2023 take 1 tablet by mouth once daily Hydrochlorothiazide 25 mg tablet Discontinued 25 MG PO Daily July 12, 2017 11:00pm November 24, 2023 8:31am labetalol hydrochloride 5 mg/ml injectable solution (1 source) beta-Adrenergic Amador Start: 10-28-2023 End: 10-28-2023 labetaloL (Normodyne,Trandate) injection 5 mg mecobalamin 1 mg chewable tablet (14 sources) Start: 11-24-2023 End: 01-19-2024 take 1 tablet by mouth once daily Mecobalamin (Vitamin B12) 1,000 mcg tablet,chewable Discontinued 1000 MCG PO Daily November 24, 2023 12:00am January 19, 2024 7:11am 24 hr metoprolol succinate 50 mg extended release oral tablet (20 sources) beta-Adrenergic Amador Start: 08-09-2024 End: 09-12-2024 Metoprolol Succinate 50 mg tablet extended release 24 hr Discontinued 75 MG PO Daily 135 90 August 09, 2024 4:09pm September 12, 2024 7:37am Start: 01-19-2024 End: 08-09-2024 Metoprolol Succinate 50 mg t ablet extended release 24 hr Discontinued 100 MG PO Daily January 19, 2024 7:09am August 09, 2024 4:09pm Start: 01-19-2024 take 100 mg by mouth once suzanne y Metoprolol Succinate Active 100 MG PO Daily January 19, 2024 7:09am Start: 11-24-2023 End: 01-19-2024 take 1 tablet by mouth once daily Metoprolol Succinate 50 mg tablet extended release 24 hr Discontinued 50 MG PO Daily 90 90 December 13, 2023 5:13pm January 19, 2024 7:12am Start: 10-26-2023 take 1 tablet by ho th every twenty-four hours in the morning metoprolol succinate XL (Toprol-XL) 50 MG 24 hr tablet Take 50 mg by mouth in the morning. 10/26/2023 Active Start: 10-26-2023 take 1 tablet by ho th once daily metoprolol succinate ER (TOPROL XL) 50 mg 24 hr tablet Take 25 mg by mouth once daily. 0 10/26/2023 Active Start: 07-13-2017 End: 01-19-2024 take 1 tablet by mouth once daily Metoprolol Succinate 25 mg tablet extended release 24 hr Discontinued 25 MG PO Daily July 12, 2017 11:00pm January 19, 2024 7:09am take 2 tablets by [facility] every twenty-four hours Metoprolol Succinate ER 50 MG 2 tablet Orally Once a day Active [id number] (Lymphoseek) injection 0.992 millicurie (2 sources) Start: 10-28-2023 End: 10-28-2023 [id number] (Lymphoseek) injection 0.992 millicurie triamcinolone acetonide 40 [...] to other specified organisms Episodic Administrative/social admission (20 sources) Patient encounter status; Translations: [Other specified [...] Onset: 2 Chronic Coagulation and hemorrhagic disorders (17 sources) Thrombocytopenic disorder; Translations: [Thrombocytopenia, unspecified] 04-25-2024 Chronic Complication of device; implant or graft (11 sources) Stenosis of other cardiac prosthetic devices, implants and grafts, initial encounter; Translations: [Stenosis of other cardiac prosthetic devices, implants and grafts, initial encounter] Episodic Conduction disorders (20 sources) H/O: cardiac pacemaker in situ; Translations: [Presence of cardiac pacemaker] Onset: 2 Chronic Congestive heart failure; nonhypertensive (12 sources) Chronic systolic (congestive) heart failure; Translations: [Chronic systolic heart failure] Onset: 9 Chronic Coronary atherosclerosis and other heart disease (20 sources) Coronary arteriosclerosis; Translations: [Generalized ischemic myocardial dysfunction] Onset: 2 03-28-2020 Chronic Comment on above: Echo: LTXX60-58%, BA E, RV dilated, RVSP 72, bioprosthetic MV - 05/2024 Deficiency and other anemia (20 sources) Iron deficiency anemia; Translations: [Iron deficiency anemia, unspecified] 01-19-2024 Episodic Deficiency and other anemia (13 sources) Anemia; Translations: [Anemia, unspecified] Onset: 4 01-16-2024 Episodic Deficiency and other anemia (10 sources) Anemia, unspecified; Translations: [Anemia, unspecified] 01-19-2024 [...] Onset: 2 Resolved: 2 Episodic Gastrointestinal hemorrhage (20 sources) Rectal hemorrhage; Translations: [Hemorrhage of anus and rectum] 07-13-2017 Episodic Comment on above: Problem List clean-u p per request of Phys. 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 Mycoses (3 sources) Histoplasmosis; Translations: [Histoplasmosis, unspecified] Episodic Nutritional deficiencies (2 sources) Vitamin D deficiency; Translations: [Vitamin D deficiency, unspecified] Chronic Occlusion or stenosis of precerebral arteries (5 sources) Carotid artery stenosis; Translations: [Left carotid artery occlusion] 03-28-2020 Chronic Other aftercare (10 sources) Long-term current use of anticoagulant; Translations: [termite treater helper (current) use of anticoagulants] Episodic Other aftercare (5 sources) termite treater helper (current) use of anticoagulants; Translations: [ALF CURRNT USE ANTICOAGULANTS] Onset: 3 Episodic Other aftercare (5 sources) Encounter for therapeutic drug level monitoring; Translations: [ENC THERAPEUTC DRUG LEVL MONITORING] Onset: 3 Episodic Other aftercare (2 sources) Other remote computer terminal operator (current) drug therapy; Translations: [OTH ALF CURRENT DRUG THERAPY] Onset: 2 Episodic Other aftercare (2 sources) Long-term current use of drug therapy; Translations: [Other shelter (current) drug therapy] Episodic Other circulatory disease [...] Translations: [Other obstructive and reflux uropathy] Onset: Episodic Other diseases of veins and lymphatics (20 sources) Peripheral venous insufficiency; Translations: [Venous insufficiency [...] 01-17-2024 Episodic Other eye disorders (1 source) Bilateral [...] [Other acute postprocedural pain] 10-28-2023 Episodic Other non-traumatic joint disorders (10 sources) [...] conditions (not mental disorders or infectious disease) (20 sources) Raised prostate specific antigen; Translations: [CT of abdomen abnormal] 03-28-2020 Episodic Other skin disorders (1 source) Vesicular eczema; Translations: [Dyshidrosis [pompholyx]] 11-20-2024 Episodic Other skin disorders (1 source) Dyshidrosis [pompholyx]; Translations: [Dyshidrosis] 11-20-2024 Episodic Other upper respiratory disease (11 sources) Allergic rhinitis due to pollen; Translations: [Allergic rhinitis due to pollen] Chronic Other upper respiratory disease (3 sources) Allergic rhinitis due to pollen Chronic Other upper respiratory disease (1 source) Allergic rhinitis; Translations: [Allergic rhinitis, unspecified] 11-20-2024 Chronic Other upper respiratory disease (1 source) Allergic rhinitis, unspecified; Translations: [Allergic rhinitis, cause unspecified] 11-20-2024 Chronic Karen-; endo-; and myocarditis; cardiomyopathy (except that caused by tuberculosis or sexually transmitted disease) (2 sources) Valvular endocarditis; Translations: [Endocarditis, 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 Pulmonary heart disease (2 sources) Pulmonary hypertension, unspecified; Translations: [Pulmonary hypertension, unspecified] Onset: 5 Chronic Rheumatoid arthritis and related disease (20 [...] NO RESID DEFICIT] Onset: 05-06-2022 Episodic Other eye disorders (6 sources) Dermatochalasis of right upper eyelid; Translations: [Dermatochalasis] Onset: 02-16-2024 04-27-2024 Episodic Other eye disorders (5 sources) Ptosis of eyebrow; Translations: [Brow ptosis, unspecified] Onset: 02-16-2024 02-16-2024 Episodic Other fractures (1 source) Displaced fracture of lateral end of right clavicle, subsequent encounter for fracture with routine healing Onset: 11-03-2021 Resolved: 11-03-2021 Episodic Other nervous system disorders (2 sources) Other acute postprocedural pain; Translations: [Other acute postprocedural pain] Onset: 10-28-2023 Episodic Other non-traumatic joint disorders (2 sources) [...] W/AND (SUSP) EXPOS COVID-19] Onset: 01-22-2023 Unclassified (10 sources) Onset: 10-08-2023 Resolved: 01-17-2024 10-08-2023 Results Test Name Value Interpretation Reference Range Facility 37on 11-30-2024 37 *We will try you on an alternating dose of lasix, 40mg and then 20mg every other day. *Have labs done in 2 weeks to check your kidney function *[facility] will call you to schedule a heart ultrasound Normal [facility] Office Visiton 11-30-2024 Follow-up visit [id number] Nelly Hannon 1935 M Date Provider Department Center 11/30/2024 KAYLEY CROSS [facility] Family History Problem Relation Age of Onset Other Mother Coronary artery disease Father Family Status - Relation Status Age at Mother Father Level of Service:68017 [place] OFFICE/OUTPATIENT ESTABLISHED MOD MDM 30 MIN Reason for Visit and Comments: Congestive Heart Failure [127] Atrial Fibrillation [80] Normal [facility] Alanine aminotransferase [En zymatic activity/volume] in Serum or PlasmaOrdered By: Michele Arteaga on 10-30-2024 ALT [Catalytic activity/Vol] Alanine aminotransferase [Enzymatic activity/volume] in Serum or Plasma [facility] Albumin [Mass/volume] in Ser um or Plasma by Bromocresol green (BCG) dye binding methoOrdered By: Michele Arteaga on 10-30-2024 Albumin BCG dye [Mass/Vol] Albumin [Mass/volume] in Serum or Plasma by Bromocresol green (BCG) dye binding metho 3.5-5.7 [facility] Alkaline phosphatase [Enzyma tic activity/volume] in Serum or PlasmaOrdered By: Michele Arteaga on 10-30-2024 ALP [Catalytic activity/Vol] Alkaline phosphatase [Enzymatic activity/volume] in Serum or Plasma 34-104 [facility] Aspartate aminotransferase [ Enzymatic activity/volume] in Serum or PlasmaOrdered By: Michele Arteaga on 10-30-2024 AST [Catalytic activity/Vol] Aspartate aminotransferase [Enzymatic activity/volume] in Serum or Plasma 13-39 [facility] Basophils Auto (Bld) [#/Vol] Ordered By: Michele Arteaga on 10-30-2024 Basophils (Bld) [#/Vol] Automated basoph il count 0.0-0.2 [facility] Basophils/100 WBC Auto (Bld) Ordered By: Michele Arteaga on 10-30-2024 Basophils/100 WBC (Bld) Automated basophil % . [facility] Bilirubin.direct [Mass/volum e] in Serum or PlasmaOrdered By: Michele Arteaga on 10-30-2024 Bilirubin.direct [Mass/Vol] Bilirubin.direct [Mass/volume] in Serum or Plasma 0.03-0.18 [facility] Bilirubin.total [Mass/volume ] in Serum or PlasmaOrdered By: Michele Arteaga on 10-30-2024 Bilirubin [Mass/Vol] Bilirubin.total [Mass/volume] in Serum or Plasma 0.3-1.0 [facility] Complete Blood Count Auto Di ffon 10-30-2024 Basophils (Bld) [#/Vol] 0.0 10*3/uL Normal 0.0-0.2 [facility] Comment on above: Performed By: #### C REAT, CBC, HEPATIC, ESR ####[facility] [id number] [place] [address] [facility] Basophils/100 WBC (Bld) 1.1 % Normal . T raul [facility] Comment on above: Performed By: #### C REAT, CBC, HEPATIC, ESR ####[address] Eosinophils (Bld) [#/Vol] 0.1 10*3/uL Normal 0.0-0.45 [facility] Comment on above: Performed By: #### C REAT, CBC, HEPATIC, ESR ####[address] Eosinophils/100 WBC (Bld) 1.3 % Normal . [facility] Comment on above: Performed By: #### C REAT, CBC, HEPATIC, ESR ####[address] Erythrocyte distribution width (RBC) [Ratio] 14.1 % Normal 12.0-14.8 [facility] Comment on above: Performed By: #### C REAT, CBC, HEPATIC, ESR ####[address] Hematocrit (Bld) [Volume fraction] 27.3 % Low 38.8-50.0 [facility] Comment on above: Performed By: #### C REAT, CBC, HEPATIC, ESR ####[address] Hemoglobin (Bld) [Mass/Vol] 9.1 g/dL Low 13.0-17.0 [facility] Comment on above: Performed By: #### C REAT, CBC, HEPATIC, ESR ####[address] Lymphocytes (Bld) [#/Vol] 0.6 10*3/uL Low 1.00-4.8 [facility] Comment on above: Performed By: #### C REAT, CBC, HEPATIC, ESR ####[address] Lymphocytes/100 WBC (Bld) 12.6 % Normal . The [facility] Comment on above: Performed By: #### C REAT, CBC, HEPATIC, ESR ####[address] MCH (RBC) [Entitic mass] 32.1 pg Normal 27.5-35.2 [facility] Comment on above: Performed By: #### C REAT, CBC, HEPATIC, ESR ####[address] MCV (RBC) [Entitic vol] 95.9 fL Normal 83.5-101 T [facility] Comment on above: Performed By: #### C REAT, CBC, HEPATIC, ESR ####[address] Mean Corpuscular HGB Conc 33.4 g/dL Normal 32.5-35.6 [facility] Comment on above: Performed By: #### C REAT, CBC, HEPATIC, ESR ####[address] Monocytes (Bld) [#/Vol] 0.5 10*3/uL Normal 0.0-0.8 [facility] Comment on above: Performed By: #### C REAT, CBC, HEPATIC, ESR ####[address] Monocytes/100 WBC (Bld) 11.5 % Normal . [facility] Comment on above: Performed By: #### C REAT, CBC, HEPATIC, ESR ####[address] Neutrophils (Bld) [#/Vol] 3.4 10*3/uL Normal 1.8-7.7 [facility] Comment on above: Performed By: #### C REAT, CBC, HEPATIC, ESR ####[address] Neutrophils/100 WBC (Bld) 73.5 % Normal . [facility] Comment on above: Performed By: #### C REAT, CBC, HEPATIC, ESR ####[address] NRBC% 0.1 /100{WBC} Normal 0-0.[address] [facility] Comment on above: Performed By: #### C REAT, CBC, HEPATIC, ESR ####[place] [id number] [facility] Platelet mean volume (Bld) [Entitic vol] 8.6 fL Normal 6.6-10.1 [facility] Comment on above: Performed By: #### C REAT, CBC, HEPATIC, ESR ####[place] [id number] [facility] Platelets (Bld) [#/Vol] 129 10*3/uL Low 150-450 [facility] Comment on above: Performed By: #### C REAT, CBC, HEPATIC, ESR ####[address] RBC (Bld) [#/Vol] 2.84 10*6/uL Low 3.90-5.60 [facility] Comment on above: Performed By: #### C REAT, CBC, HEPATIC, ESR ####[address] WBC (Bld) [#/Vol] 4.7 10*3/uL Normal 4.1-10.5 [facility] Comment on above: Performed By: #### C REAT, CBC, HEPATIC, ESR ####[place] [id number] [facility] Creatinineon 10-30-2024 Creatinine [Mass/Vol] 1.21 mg/dL Normal 0.70-1.30 [facility] Comment on above: Performed By: #### C REAT, CBC, HEPATIC, ESR ####[place] [id number] [facility] Estimated GFR 57.950 mL/Min Normal [facility] Comment on above: Result Comment: PERF ORMED BY: [facility] [address] [place] [address] PATHOLOGIST [employer] MACHINE OPERATOR LUDWIG URBINA M.D. Performed By: #### C REAT, CBC, HEPATIC, ESR ####[address] Creatinine [Mass/volume] in Serum or PlasmaOrdered By: Michele Arteaga on 10-30-2024 Creatinine [Mass/Vol] Creatinine [Mass/volume] in Serum or Plasma 0.70-1.30 [facility] Eosinophils Auto (Bld) [#/Vo l]Ordered By: Michele Arteaga on 10-30-2024 Eosinophils (Bld) [#/Vol] Automated eosinophil count 0.0-0.45 [facility] Eosinophils/100 WBC Auto (Bl d)Ordered By: Michele Arteaga on 10-30-2024 Eosinophils/100 WBC (Bld) Automated eosinophil % . [facility] Erythrocyte Sedimentation Ra shayy 10-30-2024 ESR (Bld) [Velocity] 18 mm/h Normal 0-19 [facility] Comment on above: Result Comment: PERF ORMED BY: [facility] [address] [facility] [place] [id number] PATHOLOGIST [employer] MACHINE OPERATOR LUDWIG URBINA M.D. Performed By: #### C REAT, CBC, HEPATIC, ESR ####[facility] [place] [address] [facility] Erythrocyte distribution wid th Auto (RBC) [Ratio]Ordered By: Michele Arteaga on 10-30-2024 Erythrocyte distribution width (RBC) [Ratio] Erythrocyte distribution width [Ratio] by Automated count 12.0-14.8 [facility] Erythrocyte sedimentation ra te by Photometric methodOrdered By: Michele Arteaga on 10-30-2024 ESR Photometric method (Bld) [Velocity] Erythrocyte sedimentation rate by Photometric method 0-19 [facility] Globulin Calc (S) [Mass/Vol] Ordered By: Michele Arteaga on 10-30-2024 Globulin (S) [Mass/Vol] Serum globulin measurement by calculation (mass/volume) [facility] Hematocrit Auto (Bld) [Volum e fraction]Ordered By: Michele Arteaga on 10-30-2024 Hematocrit (Bld) [Volume fraction] Hematocrit [Volume Fraction] of Blood by Automated count Low 38.8-50.0 [facility] Hemoglobin [Mass/volume] in BloodOrdered By: Michele Arteaga on 01-27-2025 Hemoglobin (Bld) [Mass/Vol] Hemoglobin [Mass/volume] in Blood Low 13.0-17.0 [facility] Hepatic Panelon 10-30-2024 Albumin [Mass/Vol] 4.0 g/dL Normal 3.5-5.7 [facility] Comment on above: Performed By: #### C REAT, CBC, HEPATIC, ESR ####[place] [id number] [place] [address] [facility] Albumin/Globulin [Mass ratio] 2.1 {ratio} Normal [facility] Comment on above: Performed By: #### C REAT, CBC, HEPATIC, ESR ####[place] [id number] [place] [address] [facility] ALP [Catalytic activity/Vol] 69 U/L Normal 34-104 [facility] Comment on above: Performed By: #### C REAT, CBC, HEPATIC, ESR ####[address] [address] [facility] ALT [Catalytic activity/Vol] 22 U/L Normal 7-52 [facility] Comment on above: Performed By: #### C REAT, CBC, HEPATIC, ESR ####[address] [address] [facility] AST [Catalytic activity/Vol] 20 U/L Normal 13-39 [facility] Comment on above: Performed By: #### C REAT, CBC, HEPATIC, ESR ####[address] [address] [facility] Bilirubin [Mass/Vol] 0.6 mg/dL Normal 0.3-1.0 [facility] Comment on above: Performed By: #### C REAT, CBC, HEPATIC, ESR ####[address] [address] [facility] Bilirubin,Indirect 0.5 mg/dL Normal [facility] Comment on above: Performed By: #### C REAT, CBC, HEPATIC, ESR ####[address] [address] [facility] Bilirubin.indirect [Mass/Vol] 0.10 mg/dL Normal 0.03-0.18 [facility] Comment on above: Performed By: #### C REAT, CBC, HEPATIC, ESR ####[facility] [id number] [place] [id number] [facility] Globulin (S) [Mass/Vol] 1.9 g/dL Normal T he [facility] Comment on above: Performed By: #### C REAT, CBC, HEPATIC, ESR ####[facility] [place] [id number] [facility] Protein [Mass/Vol] 5.9 g/dL Low 6.4-8.9 [facility] Comment on above: Performed By: #### C REAT, CBC, HEPATIC, ESR ####[place] [id number] [address] Leukocytes [#/volume] correc bert for nucleated erythrocytes in Blood by Automated counOrdered By: Michele Arteaga on 10-30-2024 WBC corrected for nucl RBC Auto (Bld) [#/Vol] Leukocytes [#/volume] corrected for nucleated erythrocytes in Blood by Automated coun 4.1-10.5 [facility] Lymphocytes Auto (Bld) [#/Vo l]Ordered By: Michele Arteaga on 10-30-2024 Lymphocytes (Bld) [#/Vol] Lymphocytes [#/volume] in Blood by Automated count Low 1.00-4.8 [facility] Lymphocytes/100 WBC Auto (Bl d)Ordered By: Michele Arteaga on 10-30-2024 Lymphocytes/100 WBC (Bld) Lymphocytes/100 leukocytes in Blood by Automated count . [facility] MCH Auto (RBC) [Entitic mass ]Ordered By: Michele Arteaga on 10-30-2024 MCH (RBC) [Entitic mass] MCH [Entitic mass] by Automated count 27.5-35.2 [facility] MCHC Auto (RBC) [Mass/Vol]Or dered By: Michele Arteaga on 10-30-2024 MCHC (RBC) [Mass/Vol] MCHC [Mass/volume] by Automated count 32.5-35.6 [facility] MCV Auto (RBC) [Entitic vol] Ordered By: Michele Arteaga on 10-30-2024 MCV (RBC) [Entitic vol] MCV [Entitic vol ume] by Automated count 83.5-101 [facility] Monocytes Auto (Bld) [#/Vol] Ordered By: Michele Arteaga on 10-30-2024 Monocytes (Bld) [#/Vol] Automated blood monocyte count 0.0-0.8 [facility] Monocytes/100 WBC Auto (Bld) Ordered By: Michele Arteaga on 10-30-2024 Monocytes/100 WBC (Bld) Automated monocyte % . [facility] Neutrophils Auto (Bld) [#/Vo l]Ordered By: Michele Arteaga on 10-30-2024 Neutrophils (Bld) [#/Vol] Neutrophils [#/volume] in Blood by Automated count 1.8-7.7 [facility] Neutrophils/100 WBC Auto (Bl d)Ordered By: Michele Arteaga on 10-30-2024 Neutrophils/100 WBC (Bld) Automated neutrophil % . [facility] No Panel InformationOrdered By: Michele Arteaga on 10-30-2024 Estimated GFR (CKD-EPI) 57.950 mL/Min [facility] Creatinine Clearance (Chem N/A [facility] Nucleated erythrocytes [Pres ence] in Blood by Automated countOrdered By: Michele Arteaga on 10-30-2024 Nucleated RBC Auto Ql (Bld) Nucleated erythrocytes [Presence] in Blood by Automated count 0-0.5 [facility] Platelet mean volume Auto (B ld) [Entitic vol]Ordered By: Michele Arteaga on 10-30-2024 Platelet mean volume (Bld) [Entitic vol] Platelet mean volume [Entitic volume] in Blood by Automated count 6.6-10.1 [facility] Platelets Auto (Bld) [#/Vol] Ordered By: Michele Arteaga on 10-30-2024 Platelets (Bld) [#/Vol] Platelets [#/vol ume] in Blood by Automated count Low 150-450 [facility] Protein [Mass/volume] in Ser um or PlasmaOrdered By: Michele Arteaga on 10-30-2024 Protein [Mass/Vol] Protein [Mass/volume ] in Serum or Plasma Low 6.4-8.9 [facility] RBC Auto (Bld) [#/Vol]Ordere d By: Michele Arteaga on 10-30-2024 RBC (Bld) [#/Vol] Erythrocytes [#/volume] in Blood by Automated count Low 3.90-5.60 [facility] Serum or plasma albumin/glob ulin mass ratioOrdered By: Michele Arteaga on 10-30-2024 Albumin/Globulin [Mass ratio] Serum or plasma albumin/globulin mass ratio [facility] Serum or plasma non-glucuron idated bilirubin measurement (mass/volume)Ordered By: Michele Arteaga on 10-30-2024 Bilirubin.indirect [Mass/Vol] Serum or plasma non-glucuronidated bilirubin measurement (mass/volume) [facility] WBC Auto (Bld) [#/Vol]Ordere d By: Michele Arteaga on 10-30-2024 WBC (Bld) [#/Vol] Leukocytes [#/volume ] in Blood by Automated count 4.1-10.5 [facility] Alanine aminotransferase [En zymatic activity/volume] in Serum or PlasmaOrdered By: Adilene Weinberg on 10-02-2024 ALT [Catalytic activity/Vol] Alanine aminotransferase [Enzymatic activity/volume] in Serum or Plasma 7-52 [facility] Albumin [Mass/volume] in Ser um or Plasma by Bromocresol green (BCG) dye binding methoOrdered By: Adilene Weinberg on 10-02-2024 Albumin BCG dye [Mass/Vol] Albumin [Mass/volume] in Serum or Plasma by Bromocresol green (BCG) dye binding metho 3.5-5.7 [facility] Alkaline phosphatase [Enzyma tic activity/volume] in Serum or PlasmaOrdered By: Adilene Weinberg on 10-02-2024 ALP [Catalytic activity/Vol] Alkaline phosphatase [Enzymatic activity/volume] in Serum or Plasma 34-104 [facility] Aspartate aminotransferase [ Enzymatic activity/volume] in Serum or PlasmaOrdered By: Adilene Weinberg on 10-02-2024 AST [Catalytic activity/Vol] Aspartate aminotransferase [Enzymatic activity/volume] in Serum or Plasma 13-39 [facility] Basophils Auto (Bld) [#/Vol] Ordered By: Adilene Weinberg on 10-02-2024 Basophils (Bld) [#/Vol] Automated basoph il count 0.0-0.2 [facility] Basophils/100 WBC Auto (Bld) Ordered By: Adilene Weinberg on 10-02-2024 Basophils/100 WBC (Bld) Automated basophil % . [facility] Bilirubin.total [Mass/volume ] in Serum or PlasmaOrdered By: Adilene Weinberg on 10-02-2024 Bilirubin [Mass/Vol] Bilirubin.total [Mass/volume] in Serum or Plasma 0.3-1.0 [facility] CBC W Auto Differential pane l (Bld)on 10-02-2024 Basophils (Bld) [#/Vol] 0 10*3/uL 0.0 - 0.2 10*3/uL [facility] Basophils/100 WBC Manual cnt (Syn fld) 0.6 % . [facility] Eosinophils (Bld) [#/Vol] 0 10*3/uL 0.0 - 0.45 10*3/uL [facility] Eosinophils/100 WBC Manual cnt (Syn fld) 0.9 % . [facility] Erythrocyte distribution width (RBC) [Ratio] 14.4 % 12.0 - 14.8 % [facility] Hematocrit (Bld) [Volume fraction] 31 % Low 38.8 - 50.0 % [facility] Hemoglobin (Bld) [Mass/Vol] 10.5 g/dL Low 13.0 - 17.0 g/dL [facility] Interpretation and review of laboratory results Abnormal [facility] Lymphocytes (Bld) [#/Vol] 0.8 10*3/uL Low 1.00 - 4.8 10*3/uL [facility] Lymphocytes/100 WBC Manual cnt (Syn fld) 15 % . [facility] MCH (RBC) [Entitic mass] 32.4 pg 27.5 - 35.2 pg [facility] MCHC (RBC) [Mass/Vol] 34 g/dL 32.5 - 35.6 g/dL [facility] MCV (RBC) [Entitic vol] 95.1 fL 83.5 - 101 fL [facility] Monocytes (Bld) [#/Vol] 0.6 10*3/uL 0.0 - 0.8 10*3/uL [facility] Monocytes+Macrophages/1 00 WBC Manual cnt (Syn fld) 11.4 % . [facility] Neutrophils (Bld) [#/Vol] 3.9 10*3/uL 1.8 - 7.7 10*3/uL [facility] Neutrophils/100 WBC Manual cnt (Syn fld) 72.1 % . [facility] NRBC 0.1 /100{WBC} 0 - 0.5 /100{WBC} [facility] Platelet mean volume (Bld) [Entitic vol] 8.1 fL 6.6 - 10.1 fL [facility] Platelets (Bld) [#/Vol] 131 10*3/uL Low 150 - 450 10*3/uL [facility] RBC LM.HPF (Urine sed) [#/Area] 3.26 10*6/uL Low 3.90 - 5.60 10*6/uL [facility] WBC (Bld) [#/Vol] 5.4 10*3/uL 4.1 - 10.5 10*3/uL [facility] WBC LM.HPF (Urine sed) [#/Area] 5.4 10*3/uL 4.1 - 10.5 10*3/uL [facility] Calcium [Mass/volume] in Ser um or PlasmaOrdered By: Adilene Weinberg on 10-02-2024 Calcium [Mass/Vol] Calcium [Mass/volume ] in Serum or Plasma 8.6-10.3 [facility] Carbon dioxide, total [Moles /volume] in Serum or PlasmaOrdered By: Adilene Weinberg on 10-02-2024 CO2 [Moles/Vol] Carbon dioxide, tota l [Moles/volume] in Serum or Plasma 21.0-31.0 [facility] Chloride [Moles/volume] in S boby or PlasmaOrdered By: Adilene Weinberg on 10-02-2024 Chloride [Moles/Vol] Chloride [Moles/volume] in Serum or Plasma 98-107 [facility] Complete Blood Count Auto Di ffon 10-02-2024 Basophils (Bld) [#/Vol] 0.0 10*3/uL Normal 0.0-0.2 [facility] Comment on above: Result Comment: PERF ORMED BY: [facility] [address] [place] [address] PATHOLOGIST [employer] D[employer] MACHINE OPERATOR LUDWIG URBINA M.D. Performed By: #### C MP, CBC, LDH ####[address] Basophils/100 WBC (Bld) 0.6 % Normal . Mindy carter [facility] Comment on above: Performed By: #### C MP, CBC, LDH ####[address] Eosinophils (Bld) [#/Vol] 0.0 10*3/uL Normal 0.0-0.45 [facility] Comment on above: Performed By: #### C MP, CBC, LDH ####[address] Eosinophils/100 WBC (Bld) 0.9 % Normal . [facility] Comment on above: Performed By: #### C MP, CBC, LDH ####[address] Erythrocyte distribution width (RBC) [Ratio] 14.4 % Normal 12.0-14.8 [facility] Comment on above: Performed By: #### C MP, CBC, LDH ####[address] Hematocrit (Bld) [Volume fraction] 31.0 % Low 38.8-50.0 [facility] Comment on above: Performed By: #### C MP, CBC, LDH ####[address] Hemoglobin (Bld) [Mass/Vol] 10.5 g/dL Low 13.0-17.0 [facility] Comment on above: Performed By: #### C MP, CBC, LDH ####[address] Lymphocytes (Bld) [#/Vol] 0.8 10*3/uL Low 1.00-4.8 [facility] Comment on above: Performed By: #### C MP, CBC, LDH ####[address] Lymphocytes/100 WBC (Bld) 15.0 % Normal . [facility] Comment on above: Performed By: #### C MP, CBC, LDH ####[address] MCH (RBC) [Entitic mass] 32.4 pg Normal 27.5-35.2 [facility] Comment on above: Performed By: #### C MP, CBC, LDH ####[address] MCV (RBC) [Entitic vol] 95.1 fL Normal 83.5-101 [facility] Comment on above: Performed By: #### C MP, CBC, LDH ####[address] Mean Corpuscular HGB Conc 34.0 g/dL Normal 32.5-35.6 [facility] Comment on above: Performed By: #### C MP, CBC, LDH ####[address] Monocytes (Bld) [#/Vol] 0.6 10*3/uL Normal 0.0-0.8 [facility] Comment on above: Performed By: #### C MP, CBC, LDH ####[address] Monocytes/100 WBC (Bld) 11.4 % Normal . [facility] Comment on above: Performed By: #### C MP, CBC, LDH ####[address] Neutrophils (Bld) [#/Vol] 3.9 10*3/uL Normal 1.8-7.7 [facility] Comment on above: Performed By: #### C MP, CBC, LDH ####[address] Neutrophils/100 WBC (Bld) 72.1 % Normal . [facility] Comment on above: Performed By: #### C MP, CBC, LDH ####[address] NRBC% 0.1 /100{WBC} Normal 0-0.[address] [facility] Comment on above: Performed By: #### C MP, CBC, LDH ####[address] Platelet mean volume (Bld) [Entitic vol] 8.1 fL Normal 6.6-10.1 [facility] Comment on above: Performed By: #### C MP, CBC, LDH ####[address] Platelets (Bld) [#/Vol] 131 10*3/uL Low 150-450 [facility] Comment on above: Performed By: #### C MP, CBC, LDH ####[address] RBC (Bld) [#/Vol] 3.26 10*6/uL Low 3.90-5.60 [facility] Comment on above: Performed By: #### C MP, CBC, LDH ####[address] WBC (Bld) [#/Vol] 5.4 10*3/uL Normal 4.1-10.5 [facility] Comment on above: Performed By: #### C MP, CBC, LDH ####[address] Comprehensive Metabolic Pane delbert 10-02-2024 Albumin [Mass/Vol] 4.2 g/dL Normal 3.5-5.7 [facility] Comment on above: Performed By: #### C MP, CBC, LDH ####[address] Albumin/Globulin [Mass ratio] 2.2 {ratio} Normal [facility] Comment on above: Performed By: #### C MP, CBC, LDH ####[address] ALP [Catalytic activity/Vol] 63 U/L Normal 34-104 [facility] Comment on above: Performed By: #### C MP, CBC, LDH ####[address] [address] [facility] ALT [Catalytic activity/Vol] 32 U/L Normal 7-52 [facility] Comment on above: Performed By: #### C MP, CBC, LDH ####[address] [address] [facility] Anion gap [Moles/Vol] 9.7 mmol/L Normal 6.0-15.0 [facility] Comment on above: Performed By: #### C MP, CBC, LDH ####[address] [address] [facility] AST [Catalytic activity/Vol] 22 U/L Normal 13-39 [facility] Comment on above: Performed By: #### C MP, CBC, LDH ####[place] [id number] [facility] Bilirubin [Mass/Vol] 0.7 mg/dL Normal 0.3-1.0 [facility] Comment on above: Performed By: #### C MP, CBC, LDH ####[address] [address] [facility] Calcium [Mass/Vol] 9.4 mg/dL Normal 8.6-10.3 [facility] Comment on above: Performed By: #### C MP, CBC, LDH ####[place] [id number] [facility] Chloride [Moles/Vol] 104 mmol/L Normal 98-107 [facility] Comment on above: Performed By: #### C MP, CBC, LDH ####[address] [address] [facility] CO2 [Moles/Vol] 30.6 mmol/L Normal 21.0-31.0 [facility] Comment on above: Performed By: #### C MP, CBC, LDH ####[address] [address] [facility] Creatinine [Mass/Vol] 1.27 mg/dL Normal 0.70-1.30 [facility] Comment on above: Performed By: #### C MP, CBC, LDH ####[place] [id number] [facility] Estimated GFR 54.679 mL/Min Normal [facility] Comment on above: Performed By: #### C MP, CBC, LDH ####[place] [id number] [facility] Globulin (S) [Mass/Vol] 1.9 g/dL Normal T he [facility] Comment on above: Performed By: #### C MP, CBC, LDH ####[address] Glucose [Mass/Vol] 107 mg/dL High 70-100 [facility] Comment on above: Result Comment: [facility] Glucose Reference Range is dependent on time and content of last meal. Glucose of more than 200 mg/dL in a nonstressed, ambulatory subject supports the diagnosis of Diabetes Mellitus. ADA recommended reference range Performed By: #### C MP, CBC, LDH ####[address] Potassium [Moles/Vol] 4.3 mmol/L Normal 3.5-5.1 [facility] Comment on above: Performed By: #### C MP, CBC, LDH ####[address] Protein [Mass/Vol] 6.1 g/dL Low 6.4-8.9 [facility] Comment on above: Performed By: #### C MP, CBC, LDH ####[address] Sodium [Moles/Vol] 140 mmol/L Normal 136-145 [facility] Comment on above: Performed By: #### C MP, CBC, LDH ####[address] Urea nitrogen [Mass/Vol] 21 mg/dL Normal 7-25 [facility] Comment on above: Performed By: #### C MP, CBC, LDH ####[address] [facility] 10-02-2024 Albumin [Mass/Vol] 4.2 g/dL 3.5 - 5.7 g/dL [facility] Albumin/Globulin [Mass ratio] 2.2 {ratio} [facility] ALP [Catalytic activity/Vol] 63 U/L 34 - 104 U/L [facility] ALT [Catalytic activity/Vol] 32 U/L 7 - 52 U/L [facility] Anion gap [Moles/Vol] 9.7 mmol/L 6.0 - 15.0 meq/L [facility] AST [Catalytic activity/Vol] 22 U/L 13 - 39 U/L [facility] Bilirubin [Mass/Vol] 0.7 mg/dL 0.3 - 1 .0 mg/dL [facility] Calcium [Mass/Vol] 9.4 mg/dL 8.6 - 10. 3 mg/dL [facility] Chloride [Moles/Vol] 104 mmol/L 98 - 10 7 mmol/L [facility] CO2 [Moles/Vol] 30.6 mmol/L 21.0 - 31.0 mmol/L [facility] Creatinine (U) [Mass/Vol] 1.27 mg/dL 0.70 - 1.30 mg/dL [facility] GFR/1.73 sq M.predicted MDRD (S/P/Bld) [Vol rate/Area] 54.679 mL/min/{1.73_m2} mL/Min [facility] Globulin (S) [Mass/Vol] 1.9 g/dL [facility] Glucose [Mass/Vol] 107 mg/dL High 70 - 100 mg/dL [facility] Comment on above: Random Glucose Refer ence Range is dependent on time and content of last meal. Glucose of more than 200 mg/dL in a nonstressed, ambulatory subject supports the diagnosis of Diabetes Mellitus. ADA recommended reference range Interpretation and review of laboratory results Abnormal [facility] Potassium [Moles/Vol] 4.3 mmol/L 3.5 - 5.1 mmol/L [facility] Protein [Mass/Vol] 6.1 g/dL Low 6.4 - 8.9 g/dL [facility] Sodium [Moles/Vol] 140 mmol/L 136 - 145 mmol/L [facility] Urea nitrogen [Mass/Vol] 21 mg/dL 7 - 25 mg/dL [facility] Creatinine [Mass/volume] in Serum or PlasmaOrdered By: Adilene Weinberg on 10-02-2024 Creatinine [Mass/Vol] Creatinine [Mass/volume] in Serum or Plasma 0.70-1.30 [facility] Eosinophils Auto (Bld) [#/Vo l]Ordered By: Adilene Weinberg on 10-02-2024 Eosinophils (Bld) [#/Vol] Automated eosinophil count 0.0-0.45 [facility] Eosinophils/100 WBC Auto (Bl d)Ordered By: Adilene Weinberg on 10-02-2024 Eosinophils/100 WBC (Bld) Automated eosinophil % . [facility] Erythrocyte distribution wid th Auto (RBC) [Ratio]Ordered By: Adilene Weinberg on 10-02-2024 Erythrocyte distribution width (RBC) [Ratio] Erythrocyte distribution width [Ratio] by Automated count 12.0-14.8 [facility] Globulin Calc (S) [Mass/Vol] Ordered By: Adilene Weinberg on 10-02-2024 Globulin (S) [Mass/Vol] Serum globulin measurement by calculation (mass/volume) [facility] Glucose [Mass/volume] in Ser um or PlasmaOrdered By: Adilene Weinberg on 10-02-2024 Glucose [Mass/Vol] Glucose [Mass/volume ] in Serum or Plasma High 70-100 [facility] Comment on above: ADA recommended refe rence rangeRandom Glucose Reference Range is dependent on time and content of last meal. Glucose of more than 200 mg/dL in a nonstressed, ambulatory subject supports the diagnosis of Diabetes Mellitus. Hematocrit Auto (Bld) [Volum e fraction]Ordered By: Adilene Weinberg on 10-02-2024 Hematocrit (Bld) [Volume fraction] Hematocrit [Volume Fraction] of Blood by Automated count Low 38.8-50.0 [facility] Hemoglobin [Mass/volume] in BloodOrdered By: Adilene Weinberg on 10-02-2024 Hemoglobin (Bld) [Mass/Vol] Hemoglobin [Mass/volume] in Blood Low 13.0-17.0 [facility] LDH Lactate Dehydrogenaseon 10-02-2024 LDH Lactate Dehydrogenase 215 U/L Normal 140-271 [facility] Comment on above: Result Comment: PERF ORMED BY: [facility] [address] [place] [id number] PATHOLOGIST [employer] DEDENTING MACHINE OPERATOR LUDWIG URBINA M.D. Performed By: #### C MP, CBC, LDH ####[facility] [id number] [place] [id number] [facility] LDH Lactate to pyruvate reac tion [Catalytic activity/Vol]on 10-02-2024 LDH LACTATE DEHYDROGENASE 215 U/L 140 - 271 U/L [facility] Lactate dehydrogenase [Enzym atic activity/volume] in Serum or Plasma by Lactate to pyOrdered By: Adilene Weinberg on 10-02-2024 LDH Lactate to pyruvate reaction [Catalytic activity/Vol] Lactate dehydrogenase [Enzymatic activity/volume] in Serum or Plasma by Lactate to py 140-271 [facility] Leukocytes [#/volume] correc bert for nucleated erythrocytes in Blood by Automated counOrdered By: Adilene Weinberg on 10-02-2024 WBC corrected for nucl RBC Auto (Bld) [#/Vol] Leukocytes [#/volume] corrected for nucleated erythrocytes in Blood by Automated coun 4.1-10.5 [facility] Lymphocytes Auto (Bld) [#/Vo l]Ordered By: Adilene Weinberg on 10-02-2024 Lymphocytes (Bld) [#/Vol] Lymphocytes [#/volume] in Blood by Automated count Low 1.00-4.8 [facility] Lymphocytes/100 WBC Auto (Bl d)Ordered By: Adilene Weinberg on 10-02-2024 Lymphocytes/100 WBC (Bld) Lymphocytes/100 leukocytes in Blood by Automated count . [facility] MCH Auto (RBC) [Entitic mass ]Ordered By: Adilene Weinberg on 10-02-2024 MCH (RBC) [Entitic mass] MCH [Entitic mass] by Automated count 27.5-35.2 [facility] MCHC Auto (RBC) [Mass/Vol]Or dered By: Adilene Weinberg on 10-02-2024 MCHC (RBC) [Mass/Vol] MCHC [Mass/volume] by Automated count 32.5-35.6 [facility] MCV Auto (RBC) [Entitic vol] Ordered By: Adilene Weinberg on 10-02-2024 MCV (RBC) [Entitic vol] MCV [Entitic vol ume] by Automated count 83.5-101 [facility] Monocytes Auto (Bld) [#/Vol] Ordered By: Adilene Weinberg on 10-02-2024 Monocytes (Bld) [#/Vol] Automated blood monocyte count 0.0-0.8 [facility] Monocytes/100 WBC Auto (Bld) Ordered By: Adilene Weinberg on 10-02-2024 Monocytes/100 WBC (Bld) Automated monocyte % . [facility] Neutrophils Auto (Bld) [#/Vo l]Ordered By: Adilene Weinberg on 10-02-2024 Neutrophils (Bld) [#/Vol] Neutrophils [#/volume] in Blood by Automated count 1.8-7.7 [facility] Neutrophils/100 WBC Auto (Bl d)Ordered By: Adilene Weinberg on 10-02-2024 Neutrophils/100 WBC (Bld) Automated neutrophil % . [facility] No Panel Informationon 10-02 [facility] No Panel InformationOrdered By: Adilene Weinberg on 10-02-2024 Estimated GFR (CKD-EPI) 54.679 mL/Min [facility] Creatinine Clearance (Chem N/A [facility] Nucleated erythrocytes [Pres ence] in Blood by Automated countOrdered By: Adilene Weinberg on 10-02-2024 Nucleated RBC Auto Ql (Bld) Nucleated erythrocytes [Presence] in Blood by Automated count 0-0.5 [facility] Platelet mean volume Auto (B ld) [Entitic vol]Ordered By: Adilene Weinberg on 10-02-2024 Platelet mean volume (Bld) [Entitic vol] Platelet mean volume [Entitic volume] in Blood by Automated count 6.6-10.1 [facility] Platelets Auto (Bld) [#/Vol] Ordered By: Adilene Weinberg on 10-02-2024 Platelets (Bld) [#/Vol] Platelets [#/vol ume] in Blood by Automated count Low 150-450 [facility] Potassium [Moles/volume] in Serum or PlasmaOrdered By: Adilene Weinberg on 10-02-2024 Potassium [Moles/Vol] Potassium [Moles/volume] in Serum or Plasma 3.5-5.1 [facility] Protein [Mass/volume] in Ser um or PlasmaOrdered By: Adilene Weinberg on 10-02-2024 Protein [Mass/Vol] Protein [Mass/volume ] in Serum or Plasma Low 6.4-8.9 [facility] RBC Auto (Bld) [#/Vol]Ordere d By: Adilene Weinberg on 10-02-2024 RBC (Bld) [#/Vol] Erythrocytes [#/volume] in Blood by Automated count Low 3.90-5.60 [facility] Serum or plasma albumin/glob ulin mass ratioOrdered By: Adilene Weinberg on 10-02-2024 Albumin/Globulin [Mass ratio] Serum or plasma albumin/globulin mass ratio [facility] Serum or plasma anion gap de terminationOrdered By: Adilene Weinberg on 10-02-2024 Anion gap [Moles/Vol] Serum or plasma an ion gap determination 6.0-15.0 [facility] Sodium [Moles/volume] in Ser um or PlasmaOrdered By: Adilene Weinberg on 10-02-2024 Sodium [Moles/Vol] Sodium [Moles/volume ] in Serum or Plasma 136-145 [facility] US extremity nonvascularon 1 US extremity nonvascular [facility] [place] [address] Ultrasound Report Signed Patient: Nelly Hannon MR#: [id number] 0 : 1935 Acct:[id number] Age/Sex: 89 / M ADM Date: 10/02/24 Loc: Room: Type: [facility] Attending Dr: Adilene Weinberg MD Ordering Provider: Adilene Weinberg MD Date of Service: 10/02/24 US/US extremity nonvascular: surveillance Copies to: Adilene Weinberg MD Nonvascular extremity ultrasound 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 COMPARISON: PET/CT scan 06/30/2024 which was negative. The right and left portion of the neck were scanned. No focal abnormality identified. No mass. No adenopathy. US/US extremity nonvascular IMPRESSION: No worrisome mass or adenopathy of the neck. Continued clinical concern may be further assessed with contrasted CT of neck. Impression dictated by: Abdoul William M.D.10/02/2024 5:30 PM Dictation Location: [place] [address] Tech: Siria Gardner Transcribed By: PHYLLIS 10/02/241729 Dictated By: Abdoul William DO 10/02/241726 Signed By: 10/02/241729 Normal [facility] Urea nitrogen [Mass/volume] in Serum or PlasmaOrdered By: Adilene Weinberg on 10-02-2024 Urea nitrogen [Mass/Vol] Urea nitrogen [Mass/volume] in Serum or Plasma 04-27 [facility] WBC Auto (Bld) [#/Vol]Ordere d By: Adilene Weinberg on 10-02-2024 WBC (Bld) [#/Vol] Leukocytes [#/volume ] in Blood by Automated count 4.1-10.5 [facility] Alanine aminotransferase [En zymatic activity/volume] in Serum or PlasmaOrdered By: Michele Arteaga on 07-04-2024 ALT [Catalytic activity/Vol] 25 U/L Normal 7-52 [facility] Comment on above: Performed By: #### C REAT, CBC, HEPATIC, ESR #### [facility] [address] [place] [address] [place] Albumin [Mass/volume] in Ser um or Plasma by Bromocresol green (BCG) dye binding methoOrdered By: Michele Arteaga on 07-04-2024 Albumin BCG dye [Mass/Vol] 4.1 g/dL 3.5-5.7 [facility] Alkaline phosphatase [Enzyma tic activity/volume] in Serum or PlasmaOrdered By: Michele Arteaga on 07-04-2024 ALP [Catalytic activity/Vol] 68 U/L Normal 34-104 [facility] Comment on above: Performed By: #### C REAT, CBC, HEPATIC, ESR #### [facility] [address] [place] [id number] [place] Aspartate aminotransferase [ Enzymatic activity/volume] in Serum or PlasmaOrdered By: Michele Arteaga on 07-04-2024 AST [Catalytic activity/Vol] 23 U/L Normal 13-39 [facility] Comment on above: Performed By: #### C REAT, CBC, HEPATIC, ESR #### [facility] [address] Automated basophil %Ordered By: Michele Arteaga on 07-04-2024 Basophils/100 WBC (Bld) 0.8 % Normal . [facility] Comment on above: Performed By: #### C REAT, CBC, HEPATIC, ESR ####[place] [id number] [address] Automated basophil countOrde red By: Michele Arteaga on 07-04-2024 Basophils (Bld) [#/Vol] 0.0 10*3/uL Normal 0.0-0.2 [facility] Comment on above: Performed By: #### C REAT, CBC, HEPATIC, ESR ####[address] Automated blood monocyte cou ntOrdered By: Michele Arteaga on 07-04-2024 Monocytes (Bld) [#/Vol] 0.5 10*3/uL Normal 0.0-0.8 [facility] Comment on above: Performed By: #### C REAT, CBC, HEPATIC, ESR ####[address] Automated eosinophil %Ordere d By: Michele Arteaga on 07-04-2024 Eosinophils/100 WBC (Bld) 2.5 % Normal . [facility] Comment on above: Performed By: #### C REAT, CBC, HEPATIC, ESR ####[address] Automated eosinophil countOr dered By: Michele Arteaga on 07-04-2024 Eosinophils (Bld) [#/Vol] 0.1 10*3/uL Normal 0.0-0.45 [facility] Comment on above: Performed By: #### C REAT, CBC, HEPATIC, ESR ####[address] Automated monocyte %Ordered By: Michele Arteaga on 07-04-2024 Monocytes/100 WBC (Bld) 13.2 % Normal . [facility] Comment on above: Performed By: #### C REAT, CBC, HEPATIC, ESR ####[place] [id number] [address] Automated neutrophil %Ordere d By: Michele Arteaga on 07-04-2024 Neutrophils/100 WBC (Bld) 67.5 % Normal . [facility] Comment on above: Performed By: #### C REAT, CBC, HEPATIC, ESR ####[address] Bilirubin.direct [Mass/volum e] in Serum or PlasmaOrdered By: Michele Arteaga on 07-04-2024 Bilirubin.direct [Mass/Vol] 0.20 mg/dL High 0.03-0.18 [facility] Bilirubin.total [Mass/volume ] in Serum or PlasmaOrdered By: Michele Arteaga on 07-04-2024 Bilirubin [Mass/Vol] 0.7 mg/dL Normal 0.3-1.0 [facility] Comment on above: Performed By: #### C REAT, CBC, HEPATIC, ESR #### [address] Complete Blood Count Auto Di ffon 07-04-2024 Mean Corpuscular HGB Conc 34.0 g/dL Normal 32.5-35.6 [facility] Comment on above: Performed By: #### C REAT, CBC, HEPATIC, ESR ####[address] NRBC% 0.0 /100{WBC} Normal 0-0.[address] [facility] Comment on above: Performed By: #### C REAT, CBC, HEPATIC, ESR ####[place] [id number] [facility] Creatinineon 07-04-2024 GFR/1.73 sq M.predicted MDRD (S/P/Bld) [Vol rate/Area] 53.501 mL/min/{1.73_m2} Normal [facility] Comment on above: Result Comment: PERF ORMED BY: [facility] [address] [place] [address] PATHOLOGIST [employer]REL DEDENTING MACHINE OPERATOR NIYA BARRERA M.D. Performed By: #### C REAT, CBC, HEPATIC, ESR ####[address] Creatinine [Mass/volume] in Serum or PlasmaOrdered By: Michele Arteaga on 07-04-2024 Creatinine [Mass/Vol] 1.30 mg/dL Normal 0.70-1.30 [facility] Comment on above: Performed By: #### C REAT, CBC, HEPATIC, ESR ####[place] [id number] [facility] Erythrocyte Sedimentation Ra shayy 07-04-2024 ESR (Bld) [Velocity] 6 mm/h Normal 0-19 [facility] Comment on above: Result Comment: PERF ORMED BY: [facility] [address] [place] [address] PATHOLOGIST BARREL DEDENTING MACHINE OPERATOR NIYA BARRERA M.D. Performed By: #### C REAT, CBC, HEPATIC, ESR ####[address] Erythrocyte distribution wid th [Ratio] by Automated countOrdered By: Michele Arteaga on 07-04-2024 Erythrocyte distribution width (RBC) [Ratio] 13.5 % Normal 12.0-14.8 [facility] Comment on above: Performed By: #### C REAT, CBC, HEPATIC, ESR ####[place] [id number] [facility] Erythrocyte sedimentation ra te by Photometric methodOrdered By: Michele Arteaga on 07-04-2024 ESR Photometric method (Bld) [Velocity] 6 mm/hr 0-19 [facility] Erythrocytes [#/volume] in B lood by Automated countOrdered By: Michele Arteaga on 07-04-2024 RBC (Bld) [#/Vol] 3.14 10*6/uL Low 3.90-5.60 [facility] Comment on above: Performed By: #### C REAT, CBC, HEPATIC, ESR ####[address] Hematocrit [Volume Fraction] of Blood by Automated countOrdered By: Michele Arteaga on 07-04-2024 Hematocrit (Bld) [Volume fraction] 29.5 % Low 38.8-50.0 [facility] Comment on above: Performed By: #### C REAT, CBC, HEPATIC, ESR ####[facility] [id number] Hemoglobin [Mass/volume] in BloodOrdered By: Michele Arteaga on 07-04-2024 Hemoglobin (Bld) [Mass/Vol] 10.0 g/dL Low 13.0-17.0 [facility] Comment on above: Performed By: #### C REAT, CBC, HEPATIC, ESR ####[facility] [id number] Hepatic Panelon 07-04-2024 Albumin [Mass/Vol] 4.1 g/dL Normal 3.5-5.7 [facility] Comment on above: Performed By: #### C REAT, CBC, HEPATIC, ESR #### [facility] [address] Bilirubin,Indirect 0.5 mg/dL Normal [facility] Comment on above: Performed By: #### C REAT, CBC, HEPATIC, ESR #### [facility] [address] Bilirubin.indirect [Mass/Vol] 0.20 mg/dL High 0.03-0.18 [facility] Comment on above: Performed By: #### C REAT, CBC, HEPATIC, ESR #### [facility] [address] Leukocytes [#/volume] correc bert for nucleated erythrocytes in Blood by Automated counOrdered By: Michele Arteaga on 07-04-2024 WBC corrected for nucl RBC Auto (Bld) [#/Vol] 3.8 10*3/uL Low 4.1-10.5 [facility] Leukocytes [#/volume] in Blo od by Automated countOrdered By: Michele Arteaga on 07-04-2024 WBC (Bld) [#/Vol] 3.8 10*3/uL Low 4.1-10.[address] [facility] Comment on above: Performed By: #### C REAT, CBC, HEPATIC, ESR ####[address] Lymphocytes [#/volume] in Bl ood by Automated countOrdered By: Michele Arteaga on 07-04-2024 Lymphocytes (Bld) [#/Vol] 0.6 10*3/uL Low 1.00-4.8 [facility] Comment on above: Performed By: #### C REAT, CBC, HEPATIC, ESR ####[address] Lymphocytes/100 leukocytes i n Blood by Automated countOrdered By: Michele Arteaga on 07-04-2024 Lymphocytes/100 WBC (Bld) 16.0 % Normal . [facility] Comment on above: Performed By: #### C REAT, CBC, HEPATIC, ESR ####[address] MCH [Entitic mass] by Automa bert countOrdered By: Michele Arteaga on 07-04-2024 MCH (RBC) [Entitic mass] 31.9 pg Normal 27.5-35.2 [facility] Comment on above: Performed By: #### C REAT, CBC, HEPATIC, ESR ####[address] MCHC Auto (RBC) [Mass/Vol]Or dered By: Michele Arteaga on 07-04-2024 MCHC (RBC) [Mass/Vol] 34.0 g/dL 32.5-35.6 [facility] MCV [Entitic volume] by Auto mated countOrdered By: Michele Arteaga on 07-04-2024 MCV (RBC) [Entitic vol] 93.9 fL Normal 83.5-101 [facility] Comment on above: Performed By: #### C REAT, CBC, HEPATIC, ESR ####[address] Neutrophils [#/volume] in Bl ood by Automated countOrdered By: Michele Arteaga on 07-04-2024 Neutrophils (Bld) [#/Vol] 2.6 10*3/uL Normal 1.8-7.7 [facility] Comment on above: Performed By: #### C REAT, CBC, HEPATIC, ESR ####[facility] [id number] No Panel InformationOrdered By: Michele Arteaga on 07-04-2024 Estimated GFR (CKD-EPI) 53.501 mL/Min [facility] Creatinine Clearance (Chem N/A [facility] Nucleated erythrocytes [Pres ence] in Blood by Automated countOrdered By: Michele Arteaga on 07-04-2024 Nucleated RBC Auto Ql (Bld) 0.0 /100{WBC} 0-0.5 [facility] Platelet mean volume [Entiti c volume] in Blood by Automated countOrdered By: Michele Arteaga on 07-04-2024 Platelet mean volume (Bld) [Entitic vol] 8.7 fL Normal 6.6-10.1 [facility] Comment on above: Performed By: #### C REAT, CBC, HEPATIC, ESR ####[place] [id number] [address] Platelets [#/volume] in Bloo d by Automated countOrdered By: Michele Arteaga on 07-04-2024 Platelets (Bld) [#/Vol] 123 10*3/uL Low 150-450 [facility] Comment on above: Performed By: #### C REAT, CBC, HEPATIC, ESR ####[facility] [id number] Protein [Mass/volume] in Ser um or PlasmaOrdered By: Michele Arteaga on 07-04-2024 Protein [Mass/Vol] 5.9 g/dL Low 6.4-8.[address] [facility] Comment on above: Performed By: #### C REAT, CBC, HEPATIC, ESR #### [facility] [address] Serum globulin measurement b y calculation (mass/volume)Ordered By: Michele Arteaga on 07-04-2024 Globulin (S) [Mass/Vol] 1.8 g/dL Normal [facility] Comment on above: Performed By: #### C REAT, CBC, HEPATIC, ESR #### [facility] [address] Serum or plasma albumin/glob ulin mass ratioOrdered By: Michele Alvarezrenan on 07-04-2024 Albumin/Globulin [Mass ratio] 2.3 {ratio} Normal [facility] Comment on above: Performed By: #### C REAT, CBC, HEPATIC, ESR #### [facility] [address] Serum or plasma non-glucuron idated bilirubin measurement (mass/volume)Ordered By: Michele Antoniorenan on 07-04-2024 Bilirubin.indirect [Mass/Vol] 0.5 mg/dL [facility] GLUCOSE POCT GLUCOMETERSon 0 07-03-2024 Glucose [Mass/Vol] 83 mg/dL [facility] Comment on above: Random Glucose Refer ence Range is dependent on time and content of last meal. Glucose of more than 200 mg/dL in a nonstressed, ambulatory subject supports the diagnosis of Diabetes Mellitus. [facility] Capillary blood glucose kumar urement by glucometer (mass/volume)Ordered By: Adilene Weinberg on 06-30-2024 Glucose [Mass/Vol] 83 mg/dL Normal [facility] Comment on above: Random Glucose Refer ence Range is dependent on time and content of last meal. Glucose of more than 200 mg/dL in a nonstressed, ambulatory subject supports the diagnosis of Diabetes Mellitus. Result Comment: [facility] Glucose Reference Range is dependent on time and content of last meal. Glucose of more than 200 mg/dL in a nonstressed, ambulatory subject supports the diagnosis of Diabetes Mellitus. PERFORMED BY: [facility] [address] [place] [address] PATHOLOGIST BARREL DEDENTING MACHINE OPERATOR NIYA BARRERA M.D. Performed By: #### G LISA ####Point of Care testing, Glucose Glucometer (BldC) [M ass/Vol]Ordered By: Adilene Weinberg on 06-30-2024 Glucose [Mass/Vol] Capillary blood glucose measurement by glucometer (mass/volume) [facility] Comment on above: Random Glucose Refer ence Range is dependent on time and content of last meal. Glucose of more than 200 mg/dL in a nonstressed, ambulatory subject supports the diagnosis of Diabetes Mellitus. PET tumor subq tx strat wbon 06-30-2024 PET tumor subq tx strat wb [facility] [address] [place] [address] [place] [address] Nuclear Medicine Report Signed Patient: Nelly Hannon MR#: [id number] 0 : 1935 Acct:[id number] Age/Sex: 88 / M ADM Date: 06/30/24 Loc: XT [facility]: [facility] Att[facility] Dr: Adilene Weinberg MD Copies to: MD Festus Orona Jr, DO Ordering Provider: Adilene Weinberg MD Date of Service: 06/30/24 PET/PET tumor subq tx strat wb: abnormal CT Abd PET/CT FUSION IMAGING CLINICAL INFORMATION: Melanoma right scalp COMPARISON : CT brain soft tissue neck chest abdomen and pelvis 06/12/2024. TECHNIQUE: Noncontrasted CT scan from the skull to the feet followed by PET imaging. Multiplanar PET/CT fusion images. Blood Glucose : 83 mg/dL The F-18 FDG 14mCi. FINDINGS: Neck: No abnormal activity is noted. Chest:No abnormal activity is noted. Abdomen/pelvis: No abnormal activity is seen within the abdomen or pelvis specifically involving the liver. Soft tissue/bones: No abnormal activity is noted. CT findings: No pneumothorax. No pericardial or pleural effusions. Cardiomegaly. No free air or free fluid. PET/PET tumor subq tx strat wb IMPRESSION: Negative PET CT. Impression dictated by: Festus Silver Jr., D.O.06/30/2024 3:08 PM Dictation Location: [place] [address] Transcribed By: [facility] 06/30/24 1508 Dictated By: Festus Silver Jr, DO 06/30/24 1458 Signed By: 06/30/24 1508 Normal [facility] 36on 06-14-2024 36 Spoke with patient's daughter Tricia and made her aware of message per Jacki. She said he's lost 6-7 lbs since starting the higher dose of lasix, so she does expect him to put a few lbs back on if he lowers the dose. I told her that's ok, but he should take an extra dose if he's SOB or swollen. Since she lives in [place], I let her know she could have her dad stop out to the office so we could lay our eyes on him if he's got LE edema. She verbalized understanding and thanked me. Normal [facility] 36 His labs show his kidney function bumped up slightly. Lets have him go back to 20mg daily and he can take an extra dose of lasix 20mg if he notices worsening leg swelling, weight gain, increased shortness of breath. Thanks [facility] Alanine aminotransferase [En zymatic activity/volume] in Serum or PlasmaOrdered By: Adilene Weinberg on 06-12-2024 ALT [Catalytic activity/Vol] 29 U/L Normal [facility] Comment on above: Order Comment: STAT BUN/CREAT FOR CT Performed By: #### C MP, LDH ####[facility] [id number] [place] [id number] [facility] ALT [Catalytic activity/Vol] Alanine aminotransferase [Enzymatic activity/volume] in Serum or Plasma [facility] Albumin [Mass/volume] in Ser um or Plasma by Bromocresol green (BCG) dye binding methoOrdered By: Adilene Weinberg on 06-12-2024 Albumin BCG dye [Mass/Vol] 4.5 g/dL 3.5-5.7 [facility] Albumin BCG dye [Mass/Vol] Albumin [Mass/volume] in Serum or Plasma by Bromocresol green (BCG) dye binding metho 3.5-5.7 [facility] [facility] Alkaline phosphatase [Enzyma tic activity/volume] in Serum or PlasmaOrdered By: Adilene Weinberg on 06-12-2024 ALP [Catalytic activity/Vol] 77 U/L Normal 34-104 [facility] Comment on above: Order Comment: STAT BUN/CREAT FOR CT Performed By: #### C MP, LDH ####[facility] [id number] [place] [address] [facility] ALP [Catalytic activity/Vol] Alkaline phosphatase [Enzymatic activity/volume] in Serum or Plasma 34-104 [facility] Aspartate aminotransferase [ Enzymatic activity/volume] in Serum or PlasmaOrdered By: Adilene Weinberg on 06-12-2024 AST [Catalytic activity/Vol] 23 U/L Normal [facility] Comment on above: Order Comment: STAT BUN/CREAT FOR CT Performed By: #### C MP, LDH ####[facility] [id number] AST [Catalytic activity/Vol] Aspartate aminotransferase [Enzymatic activity/volume] in Serum or Plasma [facility] Automated basophil %Ordered By: Adilene Weinberg on 06-12-2024 Basophils/100 WBC (Bld) 1.0 % Normal . [facility] Comment on above: Performed By: #### C BC #### [facility] [address] Automated basophil countOrde red By: Adilene Weinberg on 06-12-2024 Basophils (Bld) [#/Vol] 0.0 10*3/uL Normal 0.0-0.2 [facility] Comment on above: Result Comment: PERF ORMED BY: [place] [address] PATHOLOGIST BARREL DEDENTING MACHINE OPERATOR NIYA BARRERA M.D. Performed By: #### C BC #### [address] Automated blood monocyte cou ntOrdered By: Adilene Weinberg on 06-12-2024 Monocytes (Bld) [#/Vol] 0.6 10*3/uL Normal 0.0-0.8 [facility] Comment on above: Performed By: #### C BC #### [facility] [address] Automated eosinophil %Ordere d By: Adilene Weinberg on 06-12-2024 Eosinophils/100 WBC (Bld) 3.6 % Normal . [facility] Comment on above: Performed By: #### C BC #### [address] Automated eosinophil countOr dered By: Adilene Weinberg on 06-12-2024 Eosinophils (Bld) [#/Vol] 0.2 10*3/uL Normal 0.0-0.45 [facility] Comment on above: Performed By: #### C BC #### [facility] [address] Automated monocyte %Ordered By: Adilene Weinberg on 06-12-2024 Monocytes/100 WBC (Bld) 13.3 % Normal . [facility] Comment on above: Performed By: #### C BC #### [facility] [address] Automated neutrophil %Ordere d By: Adilene Weinberg on 06-12-2024 Neutrophils/100 WBC (Bld) 59.7 % Normal . [facility] Comment on above: Performed By: #### C BC #### [facility] [address] Basophils Auto (Bld) [#/Vol] Ordered By: Adilene Weinberg on 06-12-2024 Basophils (Bld) [#/Vol] Automated basoph il count 0.0-0.2 [facility] Basophils/100 WBC Auto (Bld) Ordered By: Adilene Weinberg on 06-12-2024 Basophils/100 WBC (Bld) Automated basophil % . [facility] Bilirubin.total [Mass/volume ] in Serum or PlasmaOrdered By: Adilene Weinberg on 06-12-2024 Bilirubin [Mass/Vol] 0.7 mg/dL Normal 0.3-1.0 [facility] Comment on above: Order Comment: STAT BUN/CREAT FOR CT Performed By: #### C MP, LDH ####[facility] [id number] Bilirubin [Mass/Vol] Bilirubin.total [Mass/volume] in Serum or Plasma 0.3-1.0 [facility] CBC W Auto Differential pane l (Bld)on 06-12-2024 Basophils (Bld) [#/Vol] 0.0 10*3/uL 0.0 - 0.2 10*3/uL [facility] Basophils/100 WBC Manual cnt (Syn fld) 1.0 % . [facility] Eosinophils (Bld) [#/Vol] 0.2 10*3/uL 0.0 - 0.45 10*3/uL [facility] Eosinophils/100 WBC Manual cnt (Syn fld) 3.6 % . [facility] Erythrocyte distribution width (RBC) [Ratio] 13.9 % 12.0 - 14.8 % [facility] Hematocrit (Bld) [Volume fraction] 32.6 % Low 38.8 - 50.0 % [facility] Hemoglobin (Bld) [Mass/Vol] 11.0 g/dL Low 13.0 - 17.0 g/dL [facility] Interpretation and review of laboratory results Abnormal [facility] Lymphocytes (Bld) [#/Vol] 1.0 10*3/uL 1.00 - 4.8 10*3/uL [facility] Lymphocytes/100 WBC Manual cnt (Syn fld) 22.4 % . [facility] MCH (RBC) [Entitic mass] 31.6 pg 27.5 - 35.2 pg [facility] MCHC (RBC) [Mass/Vol] 33.9 g/dL 32.5 - 35.6 g/dL [facility] MCV (RBC) [Entitic vol] 93.4 fL 83.5 - 101 fL [facility] Monocytes (Bld) [#/Vol] 0.6 10*3/uL 0.0 - 0.8 10*3/uL [facility] Monocytes+Macrophages/1 00 WBC Manual cnt (Syn fld) 13.3 % . [facility] Neutrophils (Bld) [#/Vol] 2.6 10*3/uL 1.8 - 7.7 10*3/uL [facility] Neutrophils/100 WBC Manual cnt (Syn fld) 59.7 % . [facility] NRBC 0.1 /100{WBC} 0 - 0.5 /100{WBC} [facility] Platelet mean volume (Bld) [Entitic vol] 8.0 fL 6.6 - 10.1 fL [facility] Platelets (Bld) [#/Vol] 132 10*3/uL Low 150 - 450 10*3/uL [facility] RBC LM.HPF (Urine sed) [#/Area] 3.49 /[HPF] Low 3.90 - 5.60 [facility] WBC (Bld) [#/Vol] 4.4 10*3/uL 4.1 - 10.5 10*3/uL [facility] WBC LM.HPF (Urine sed) [#/Area] 4.4 10*3/uL 4.1 - 10.5 10*3/uL 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 Multiplanar reformats were performed and reviewed to further define anatomy and possible pathology. CT was performed with one or more of the following dose reduction techniques: Automated exposure control, adjustment of the mA and/or kV according to patient size, or use of iterative reconstruction technique. COMPARISON: None. FINDINGS: Lower Chest: Atherosclerotic changes are noted in the coronary arteries and thoracic aorta. There is cardiomegaly. ABDOMEN: Liver: There is a 7 mm focus of enhancement in the dome of the right hepatic lobe. Bile Ducts: Normal caliber. Gallbladder: No calcified gallstones. Normal caliber wall. Pancreas: Within normal limits. Spleen: Within normal limits. Adrenals: Within normal limits. Kidneys: There is a simple cyst in the right renal cortex requiring no further follow-up. Pelvis: Reproductive Organs: Radiation seeds are noted in the prostate. Ureters: Within normal limits. Bladder: Within normal limits. Bowel: Normal caliber. There is a normal appendix in the right lower quadrant. Mesenteric Lymph Nodes: No enlarged mesenteric lymph nodes. Peritoneum: No ascites or free air, no fluid collection. Vessels: Atherosclerotic changes are noted in the abdominal aorta and its branches. Retroperitoneum: Within normal limits. Abdominal Wall: Within normal limits. Bones: Degenerative changes are noted in the thoracolumbar spine, hips, and sacral iliac joints. CT/CT abdomen pelvis w con IMPRESSION: There is a 7 mm focus of enhancement in the dome of the right hepatic lobe.Metastatic disease should be considered. Other etiologies may include a flash filling hemangioma or tumor of hepatocellular origin. Follow-up with contrast-enhanced MRI of the liver may be helpful. Additional repeat imaging with PET/CT may also be helpful. Graph no additional evidence of metastatic disease. No acute intra-abdominal pathology is noted otherwise. Impression dictated by: Tereso Lynn M.D.06/12/2024 1:15 PM Dictation Location: [place] [address] Transcribed By: [facility] 06/12/24 1315 Dictated By: Tereso Lynn II, MD 06/12/24 1308 Signed By: 06/12/24 1315 Normal [facility] CT chest w conon 06-12-2024 CT chest w con [facility] [place] [address] [place] [address] CT Scan Report Signed Patient: Nelly Hannon MR#: [id number] 0 : 1935 Acct:[id number] Age/Sex: 88 / M ADM Date: 06/12/24 Loc: Room: Type: [facility] Attending Dr: Adilene Weinberg MD Copies to: Adilene Weinberg MD Ordering Provider: Adilene Weinberg MD Date of Service: 06/12/24 CT/CT chest w con: 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 Multiplanar reformats were performed and viewed on a separate workstation and reviewed to further define anatomy and possible pathology. CT was performed with one or more of the following dose reduction techniques: Automated exposure control, adjustment of the mA and/or kV according to patient size, or use of iterative reconstruction technique. COMPARISON: 11/19/2023. FINDINGS: Lower neck: Thyroid gland within normal limits, no supraclavicle adenopathy. Vessels: Atherosclerotic changes are noted in the thoracic aorta, coronary arteries, and at the origins of the great vessels. There is no evidence of pulmonary motion. Mediastinum and [place]: Within normal limits. Heart: There is cardiomegaly. No pericardial effusion. 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 Pacer leads are present. Airways: Within normal limits Lungs: Mild linear scarring is noted in the lung bases. Pleura: Within normal limits. Chest Wall: Within normal limits. Upper Abdomen: There is a 6 mL matter enhancing focus in the dome of the right hepatic lobe. Bones: There is evidence of prior sternotomy. Degenerative changes are noted in the thoracic spine. Remote healed right anterior fractures are noted. CT/CT chest w con IMPRESSION: No evidence of pulmonary metastatic disease. There is redemonstration of cardiomegaly. There is a 6 mL matter enhancing focus in the dome of the right hepatic lobe. Please see separately dictated abdomen and pelvis CT for further detail. Impression dictated by: Tereso Lynn M.D.06/12/2024 1:04 PM Dictation Location: [place] [address] Transcribed By: [facility] 06/12/24 1304 Dictated By: Tereso Lynn II, MD 06/12/24 1249 Signed By: 06/12/24 1304 Normal [facility] CT head/brain wo/w conon CT head/brain wo/w con [facility] [place] [address] [place] [address] CT Scan Report Signed Patient: Nelly Hannon MR#: [id number] 0 : 1935 Acct:[id number] Age/Sex: 88 / M ADM Date: 06/12/24 Loc: Room: Type: [facility] Attending Dr: Adilene Weinberg MD Copies to: Adilene Weinberg MD Ordering Provider: Adilene Weinberg MD Date of Service: 06/12/24 CT/CT head/brain wo/w con: 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 COMPARISON: 11/29/2023 TECHNIQUE: Contiguous axial images were obtained through the brain both before and after intravenous administration of 90 mL of Isovue-300. This CT exam was performed using one or more following dose reduction techniques: Automated exposure control, adjustment of the mA and/or kV according to patient size, or use of iterative reconstruction technique. FINDINGS: Generalized atrophy is again seen. The ventricles are within normal limits for size and position. Similar chronic microvascular changes are noted. There are no developing areas of abnormal attenuation or enhancement. There is no hemorrhage, mass effect or extra-axial collections. The imaged paranasal sinuses and mastoid air cells are clear. There is vertebral artery and carotid siphon plaque. CT/CT head/brain wo/w con IMPRESSION: ATROPHY AND CHRONIC MICROVASCULAR DISEASE. NO ACUTE INTRACRANIAL FINDINGS OR SUSPECTED METASTATIC DISEASE.. Impression dictated by: Hafsa Keen M.D.06/12/2024 11:58 AM Dictation Location: [place] [address] Transcribed By: [facility] 06/12/24 1158 Dictated By: Hafsa Keen MD 06/12/24 1154 Signed By: 06/12/24 1158 Normal [facility] CT soft tissue neck w conon 06-12-2024 CT soft tissue neck w con [facility] [place] [address] CT Scan Report Signed Patient: Nelly Hannon MR#: [id number] 0 : 1935 Acct:[id number] Age/Sex: 88 / M ADM Date: 06/12/24 Loc: Room: Type: [facility] Attending Dr: Adilene Weinberg MD Copies to: Adilene Weinberg MD Ordering Provider: Adilene Weinberg MD Date of Service: 06/12/24 CT/CT soft tissue neck w con: 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 Sagittal and coronal reformats were reconstructed. CT was performed with one or more of the following dose reduction techniques: Automated exposure control, adjustment of the mA and/or kV according to patient size, or use of iterative reconstruction technique. COMPARISON: 11/19/2023 FINDINGS: Soft tissues of the orbits are within normal limits. The soft tissues of the infratemporal fossa fossa structures show no acute abnormality. Mucosal surfaces of the nasopharynx, oropharynx, hypopharynx, glottic, and subglottic airways are grossly unremarkable. The parotid glands, submandibular, and the thyroid gland are within normal limits. The carotid and jugular circulations are within normal limits. The visualized lung parenchyma shows no acute pathology. No acute bony abnormalities are appreciated. Degenerative changes are present in the cervical spine. The skull base, craniocervical junction, atlantoaxial joints are within normal limits. The paranasal sinuses are within normal limits. CT/CT soft tissue neck w con IMPRESSION: No evidence of mass, soft tissue swelling, or abnormality enhancement. Impression dictated by: Tereso Lynn M.D.06/12/2024 12:24 PM Dictation Location: [place] [address] Transcribed By: [facility] 06/12/24 1224 Dictated By: Tereso Lynn II, MD 06/12/24 1213 Signed By: 06/12/24 1224 Normal [facility] Calcium [Mass/volume] in Ser um or PlasmaOrdered By: Adilene Weinberg on 06-12-2024 Calcium [Mass/Vol] 9.5 mg/dL Normal 8.6-10.[address] [facility] Comment on above: Order Comment: STAT BUN/CREAT FOR CT Performed By: #### C MP, LDH ####[facility] [id number] [place] [address] [facility] Calcium [Mass/Vol] Calcium [Mass/volume ] in Serum or Plasma 8.6-10.3 [facility] Carbon dioxide, total [Moles /volume] in Serum or PlasmaOrdered By: Adilene Weinberg on 06-12-2024 CO2 [Moles/Vol] 28.4 mmol/L Normal 21.0-31.0 [facility] Comment on above: Order Comment: STAT BUN/CREAT FOR CT Performed By: #### C MP, LDH ####[place] [id number] CO2 [Moles/Vol] Carbon dioxide, tota l [Moles/volume] in Serum or Plasma 21.0-31.0 [facility] Chloride [Moles/volume] in S boby or PlasmaOrdered By: Adilene Weinberg on 06-12-2024 Chloride [Moles/Vol] 102 mmol/L Normal 98-107 [facility] Comment on above: Order Comment: STAT BUN/CREAT FOR CT Performed By: #### C MP, LDH ####[place] [id number] Chloride [Moles/Vol] Chloride [Moles/volume] in Serum or Plasma 98-107 [facility] Complete Blood Count Auto Di ffon 06-12-2024 Mean Corpuscular HGB Conc 33.9 g/dL Normal 32.5-35.6 [facility] Comment on above: Performed By: #### C BC #### [facility] [address] NRBC% 0.1 /100{WBC} Normal 0-0.[address] [facility] Comment on above: Performed By: #### C BC #### [facility] [address] Comprehensive Metabolic Pane delbert 06-12-2024 Albumin [Mass/Vol] 4.5 g/dL Normal 3.5-5.7 [facility] Comment on above: Order Comment: STAT BUN/CREAT FOR CT Performed By: #### C MP, LDH ####[place] [id number] [place] [address] [place] Creatinine Clr Calc Pharmacy 46.01 Normal [facility] Comment on above: Order Comment: STAT BUN/CREAT FOR CT Performed By: #### C MP, LDH ####[place] [id number] [place] [id number] [facility] GFR/1.73 sq M.predicted MDRD (S/P/Bld) [Vol rate/Area] 59.489 mL/min/{1.73_m2} Normal [facility] Comment on above: Order Comment: STAT BUN/CREAT FOR CT Performed By: #### C MP, LDH ####[facility] [id number] [place] [address] [facility] metabolic pane [facility] 06-12-2024 Albumin [Mass/Vol] 4.5 g/dL 3.5 - 5.7 g/dL [facility] Albumin/Globulin [Mass ratio] 1.9 {ratio} [facility] ALP [Catalytic activity/Vol] 77 U/L 34 - 104 U/L [facility] ALT [Catalytic activity/Vol] 29 U/L 7 - 52 U/L [facility] Anion gap [Moles/Vol] 11.7 mmol/L 6.0 - 15.0 NO [facility] AST [Catalytic activity/Vol] 23 U/L 13 - 39 U/L [facility] Bilirubin [Mass/Vol] 0.7 mg/dL 0.3 - 1 .0 mg/dL [facility] Calcium [Mass/Vol] 9.5 mg/dL 8.6 - 10. 3 mg/dL [facility] Chloride [Moles/Vol] 102 mmol/L 98 - 10 7 mmol/L [facility] CO2 [Moles/Vol] 28.4 mmol/L 21.0 - 31.0 mmol/L [facility] Creatinine (U) [Mass/Vol] 1.19 mg/dL 0.70 - 1.30 mg/dL [facility] CREATININE CLR CALC PHARMACY 46.01 [facility] GFR/1.73 sq M.predicted MDRD (S/P/Bld) [Vol rate/Area] 59.489 mL/min/{1.73_m2} [facility] Globulin (S) [Mass/Vol] 2.4 g/dL [facility] Glucose [Mass/Vol] 102 mg/dL High 70 - 100 mg/dL [facility] Comment on above: Random Glucose Refer ence Range is dependent on time and content of last meal. Glucose of more than 200 mg/dL in a nonstressed, ambulatory subject supports the diagnosis of Diabetes Mellitus. ADA recommended reference range Interpretation and review of laboratory results Abnormal [facility] Potassium [Moles/Vol] 4.1 mmol/L 3.5 - 5.1 mmol/L [facility] Protein [Mass/Vol] 6.9 g/dL 6.4 - 8.9 g/dL [facility] Sodium [Moles/Vol] 138 mmol/L 136 - 145 mmol/L [facility] Urea nitrogen [Mass/Vol] 21 mg/dL 7 - 25 mg/dL [facility] Creatinine [Mass/volume] in Serum or PlasmaOrdered By: Adilene Weinberg on 06-12-2024 Creatinine [Mass/Vol] 1.19 mg/dL Normal 0.70-1.30 [facility] Comment on above: Order Comment: STAT BUN/CREAT FOR CT Performed By: #### C MP, LDH ####[facility] [id number] Creatinine [Mass/Vol] Creatinine [Mass/volume] in Serum or Plasma 0.70-1.30 [facility] Eosinophils Auto (Bld) [#/Vo l]Ordered By: Adilene Weinberg on 06-12-2024 Eosinophils (Bld) [#/Vol] Automated eosinophil count 0.0-0.45 [facility] Eosinophils/100 WBC Auto (Bl d)Ordered By: Adilene Weinberg on 06-12-2024 Eosinophils/100 WBC (Bld) Automated eosinophil % . [facility] Erythrocyte distribution wid th Auto (RBC) [Ratio]Ordered By: Adilene Weinberg on 06-12-2024 Erythrocyte distribution width (RBC) [Ratio] Erythrocyte distribution width [Ratio] by Automated count 12.0-14.8 [facility] Erythrocyte distribution wid th [Ratio] by Automated countOrdered By: Adilene Weinberg on 06-12-2024 Erythrocyte distribution width (RBC) [Ratio] 13.9 % Normal 12.0-14.8 [facility] Comment on above: Performed By: #### C BC #### [facility] [address] [place] [address] [place] Erythrocytes [#/volume] in B lood by Automated countOrdered By: Adilene Weinberg on 06-12-2024 RBC (Bld) [#/Vol] 3.49 10*6/uL Low 3.90-5.60 [facility] Comment on above: Performed By: #### C BC #### [facility] [address] [place] [id number] [facility] Globulin Calc (S) [Mass/Vol] Ordered By: Adilene Weinberg on 06-12-2024 Globulin (S) [Mass/Vol] Serum globulin measurement by calculation (mass/volume) [facility] Glucose [Mass/volume] in Ser um or PlasmaOrdered By: Adilene Weinberg on 06-12-2024 Glucose [Mass/Vol] 102 mg/dL High 70-[address] [facility] Comment on above: ADA recommended refe rence rangeRandom Glucose Reference Range is dependent on time and content of last meal. Glucose of more than 200 mg/dL in a nonstressed, ambulatory subject supports the diagnosis of Diabetes Mellitus. Order Comment: STAT BUN/CREAT FOR CT Result Comment: [place] om Glucose Reference Range is dependent on time and content of last meal. Glucose of more than 200 mg/dL in a nonstressed, ambulatory subject supports the diagnosis of Diabetes Mellitus. ADA recommended reference range Performed By: #### C MP, LDH ####[facility] [id number] Glucose [Mass/Vol] Glucose [Mass/volume ] in Serum or Plasma High 70-100 [facility] Comment on above: ADA recommended refe rence rangeRandom Glucose Reference Range is dependent on time and content of last meal. Glucose of more than 200 mg/dL in a nonstressed, ambulatory subject supports the diagnosis of Diabetes Mellitus. Hematocrit Auto (Bld) [Volum e fraction]Ordered By: Adilene Weinberg on 06-12-2024 Hematocrit (Bld) [Volume fraction] Hematocrit [Volume Fraction] of Blood by Automated count Low 38.8-50.0 [facility] Hematocrit [Volume Fraction] of Blood by Automated countOrdered By: Adilene Weinberg on 06-12-2024 Hematocrit (Bld) [Volume fraction] 32.6 % Low 38.8-50.0 [facility] Comment on above: Performed By: #### C BC #### [facility] [address] Hemoglobin [Mass/volume] in BloodOrdered By: Adilene Weinberg on 06-12-2024 Hemoglobin (Bld) [Mass/Vol] 11.0 g/dL Low 13.0-17.0 [facility] Comment on above: Performed By: #### C BC #### [facility] [address] Hemoglobin (Bld) [Mass/Vol] Hemoglobin [Mass/volume] in Blood Low 13.0-17.0 [facility] LDH Lactate Dehydrogenaseon 06-12-2024 LDH Lactate Dehydrogenase 211 U/L Normal 140-271 [facility] Comment on above: Order Comment: STAT BUN/CREAT FOR CT Result Comment: PERF ORMED BY: [facility] [address] [place] [address] PATHOLOGIST BARREL DEDENTING MACHINE OPERATOR NIYA BARRERA M.D. Performed By: #### C MP, LDH ####[facility] [id number] LDH Lactate to pyruvate reac tion [Catalytic activity/Vol]on 06-12-2024 LDH LACTATE DEHYDROGENASE 211 U/L 140 - 271 U/L [facility] Lactate dehydrogenase [Enzym atic activity/volume] in Serum or Plasma by Lactate to pyOrdered By: Adilene Weinberg on 06-12-2024 LDH Lactate to pyruvate reaction [Catalytic activity/Vol] 211 U/L 140-271 [facility] LDH Lactate to pyruvate reaction [Catalytic activity/Vol] Lactate dehydrogenase [Enzymatic activity/volume] in Serum or Plasma by Lactate to py 140-271 [facility] Leukocytes [#/volume] correc bert for nucleated erythrocytes in Blood by Automated counOrdered By: Adilene Weinberg on 06-12-2024 WBC corrected for nucl RBC Auto (Bld) [#/Vol] 4.4 10*3/uL 4.1-10.5 [facility] WBC corrected for nucl RBC Auto (Bld) [#/Vol] Leukocytes [#/volume] corrected for nucleated erythrocytes in Blood by Automated coun 4.1-10.5 [facility] Leukocytes [#/volume] in Blo od by Automated countOrdered By: Adilene Weinberg on 06-12-2024 WBC (Bld) [#/Vol] 4.4 10*3/uL Normal 4.1-10.[address] [facility] Comment on above: Performed By: #### C BC #### [facility] [address] Lymphocytes Auto (Bld) [#/Vo l]Ordered By: Adilene Weinberg on 06-12-2024 Lymphocytes (Bld) [#/Vol] Lymphocytes [#/volume] in Blood by Automated count 1.00-4.8 [facility] Lymphocytes [#/volume] in Bl ood by Automated countOrdered By: Adilene Weinberg on 06-12-2024 Lymphocytes (Bld) [#/Vol] 1.0 10*3/uL Normal 1.00-4.8 [facility] Comment on above: Performed By: #### C BC #### [address] Lymphocytes/100 WBC Auto (Bl d)Ordered By: Adilene Weinberg on 06-12-2024 Lymphocytes/100 WBC (Bld) Lymphocytes/100 leukocytes in Blood by Automated count . [facility] Lymphocytes/100 leukocytes i n Blood by Automated countOrdered By: Adilene Weinberg on 06-12-2024 Lymphocytes/100 WBC (Bld) 22.4 % Normal . [facility] Comment on above: Performed By: #### C BC #### [address] MCH Auto (RBC) [Entitic mass ]Ordered By: Adilene Weinberg on 06-12-2024 MCH (RBC) [Entitic mass] MCH [Entitic mass] by Automated count 27.5-35.2 [facility] MCH [Entitic mass] by Automa bert countOrdered By: Adilene Weinberg on 06-12-2024 MCH (RBC) [Entitic mass] 31.6 pg Normal 27.5-35.2 [facility] Comment on above: Performed By: #### C BC #### [address] MCHC Auto (RBC) [Mass/Vol]Or dered By: Adilene Weinberg on 06-12-2024 MCHC (RBC) [Mass/Vol] 33.9 g/dL 32.5-35.6 [facility] MCHC (RBC) [Mass/Vol] MCHC [Mass/volume] by Automated count 32.5-35.6 [facility] MCV Auto (RBC) [Entitic vol] Ordered By: Adilene Weinberg on 06-12-2024 MCV (RBC) [Entitic vol] MCV [Entitic vol ume] by Automated count 83.5-101 [facility] MCV [Entitic volume] by Auto mated countOrdered By: Adilene Weinberg on 06-12-2024 MCV (RBC) [Entitic vol] 93.4 fL Normal 83.5-101 [facility] Comment on above: Performed By: #### C BC #### [facility] [address] Monocytes Auto (Bld) [#/Vol] Ordered By: Adilene Weinberg on 06-12-2024 Monocytes (Bld) [#/Vol] Automated blood monocyte count 0.0-0.8 [facility] Monocytes/100 WBC Auto (Bld) Ordered By: Adilene Weinberg on 06-12-2024 Monocytes/100 WBC (Bld) Automated monocyte % . [facility] Neutrophils Auto (Bld) [#/Vo l]Ordered By: Adilene Weinberg on 06-12-2024 Neutrophils (Bld) [#/Vol] Neutrophils [#/volume] in Blood by Automated count 1.8-7.7 [facility] Neutrophils [#/volume] in Bl ood by Automated countOrdered By: Adilene Weinberg on 06-12-2024 Neutrophils (Bld) [#/Vol] 2.6 10*3/uL Normal 1.8-7.7 [facility] Comment on above: Performed By: #### C BC #### [facility] [address] [place] [address] [place] Neutrophils/100 WBC Auto (Bl d)Ordered By: Adilene Weinberg on 06-12-2024 Neutrophils/100 WBC (Bld) Automated neutrophil % . [facility] No Panel Informationon 06-12 STAT BUN/CREAT FOR CT [facility] No Panel InformationOrdered By: Adilene Weinberg on 06-12-2024 Estimated GFR (CKD-EPI) 59.489 mL/Min [facility] Creatinine Clearance (Chem 46.01 [facility] Nucleated erythrocytes [Pres ence] in Blood by Automated countOrdered By: Adilene Weinberg on 06-12-2024 Nucleated RBC Auto Ql (Bld) 0.1 /100{WBC} 0-0.5 [facility] Nucleated RBC Auto Ql (Bld) Nucleated erythrocytes [Presence] in Blood by Automated count 0-0.5 [facility] Platelet mean volume Auto (B ld) [Entitic vol]Ordered By: Adilene Weinberg on 06-12-2024 Platelet mean volume (Bld) [Entitic vol] Platelet mean volume [Entitic volume] in Blood by Automated count 6.6-10.1 [facility] Platelet mean volume [Entiti c volume] in Blood by Automated countOrdered By: Adilene Weinberg on 06-12-2024 Platelet mean volume (Bld) [Entitic vol] 8.0 fL Normal 6.6-10.1 [facility] Comment on above: Performed By: #### C BC #### [facility] [address] Platelets Auto (Bld) [#/Vol] Ordered By: Adilene Weinberg on 06-12-2024 Platelets (Bld) [#/Vol] Platelets [#/vol ume] in Blood by Automated count Low 150-450 [facility] Platelets [#/volume] in Bloo d by Automated countOrdered By: Adilene Weinberg on 06-12-2024 Platelets (Bld) [#/Vol] 132 10*3/uL Low 150-450 [facility] Comment on above: Performed By: #### C BC #### [facility] [address] Potassium [Moles/volume] in Serum or PlasmaOrdered By: Adilene Weinberg on 06-12-2024 Potassium [Moles/Vol] 4.1 mmol/L Normal 3.5-5.1 [facility] Comment on above: Order Comment: STAT BUN/CREAT FOR CT Performed By: #### C MP, LDH ####[facility] Pvl[address] Potassium [Moles/Vol] Potassium [Moles/volume] in Serum or Plasma 3.5-5.1 [facility] Protein [Mass/volume] in Ser um or PlasmaOrdered By: Adilene Weinberg on 06-12-2024 Protein [Mass/Vol] 6.9 g/dL Normal 6.4-8.[address] [facility] Comment on above: Order Comment: STAT BUN/CREAT FOR CT Performed By: #### C MP, LDH ####[address] Protein [Mass/Vol] Protein [Mass/volume ] in Serum or Plasma 6.4-8.9 [facility] RBC Auto (Bld) [#/Vol]Ordere d By: Adilene Weinberg on 06-12-2024 RBC (Bld) [#/Vol] Erythrocytes [#/volume] in Blood by Automated count Low 3.90-5.60 [facility] Serum globulin measurement b y calculation (mass/volume)Ordered By: Adilene Weinberg on 06-12-2024 Globulin (S) [Mass/Vol] 2.4 g/dL Normal [facility] Comment on above: Order Comment: STAT BUN/CREAT FOR CT Performed By: #### C MP, LDH ####[address] Serum or plasma albumin/glob ulin mass ratioOrdered By: Adilene Weinberg on 06-12-2024 Albumin/Globulin [Mass ratio] 1.9 {ratio} Normal [facility] Comment on above: Order Comment: STAT BUN/CREAT FOR CT Performed By: #### C MP, LDH ####[address] Albumin/Globulin [Mass ratio] Serum or plasma albumin/globulin mass ratio [facility] Serum or plasma anion gap de terminationOrdered By: Adilene Weinberg on 06-12-2024 Anion gap [Moles/Vol] 11.7 mmol/L Normal 6.0-15.0 [facility] Comment on above: Order Comment: STAT BUN/CREAT FOR CT Performed By: #### C MP, LDH ####[place] [id number] [facility] Anion gap [Moles/Vol] Serum or plasma an ion gap determination 6.0-15.0 [facility] Sodium [Moles/volume] in Ser um or PlasmaOrdered By: Adilene Weinberg on 06-12-2024 Sodium [Moles/Vol] 138 mmol/L Normal 136-[address] [facility] Comment on above: Order Comment: STAT BUN/CREAT FOR CT Performed By: #### C MP, LDH ####[facility] [id number] [place] [id number] [facility] Sodium [Moles/Vol] Sodium [Moles/volume ] in Serum or Plasma 136-145 [facility] Urea nitrogen [Mass/volume] in Serum or PlasmaOrdered By: Adilene Weinberg on 06-12-2024 Urea nitrogen [Mass/Vol] 21 mg/dL Normal 04-27 [facility] Comment on above: Order Comment: STAT BUN/CREAT FOR CT Performed By: #### C MP, LDH ####[facility] [id number] [place] [address] [facility] Urea nitrogen [Mass/Vol] Urea nitrogen [Mass/volume] in Serum or Plasma 7-25 [facility] WBC Auto (Bld) [#/Vol]Ordere d By: Adilene Weinberg on 06-12-2024 WBC (Bld) [#/Vol] Leukocytes [#/volume ] in Blood by Automated count 4.1-10.5 [facility] Estimated glomerular filtrat ion rate (GFR) non- Americanon 06-07-2024 GFR/1.73 sq M.predicted among non-blacks MDRD (S/P/Bld) [Vol rate/Area] 50 mL/min/{1.73_m2} Low >=60 [facility] Laboratory - Chemistry and C hemistry - challengeon 06-07-2024 Calcium [Mass/Vol] 9.2 mg/dL 8.5-10.[address] [facility] Chloride [Moles/Vol] 97 mmol/L Low 98-107 [facility] CO2 [Moles/Vol] 28.8 mmol/L 21.0-32.0 [facility] Creatinine [Mass/Vol] 1.36 mg/dL High 0.70-1.30 [facility] GFR/1.73 sq M.predicted MDRD (S/P/Bld) [Vol rate/Area] mL/min/{1.73_m2} >=60 [facility] Glucose [Mass/Vol] 90 mg/dL 74-[address] [facility] Potassium [Moles/Vol] 4.1 mmol/L 3.5-5.1 [facility] Sodium [Moles/Vol] 134 mmol/L Low 136-[address] [facility] Urea nitrogen [Mass/Vol] 25.0 mg/dL High 7.0-18.0 [facility] Urea nitrogen/Creatinine [Mass ratio] 18.4 mg/mg [facility] Serum or plasma anion gap de terminationon 06-07-2024 Anion gap [Moles/Vol] 12.3 mmol/L [facility] 36on 05-24-2024 36 Regarding echo resul t [...] BMP in 1-2 weeks. Order faxed to [facility]. RX for 40mg tablets sent in. Normal [facility] Telephoneon 05-24-2024 Telephone [id number] Nelly Hannon 1935 M Date Provider Department Center 05/24/2024 [facility] Family History Problem Relation Age of Onset Other Mother Coronary artery disease Father Family Status - Relation Status Age at Mother Father [facility] Ambulatory Visit Summaryon 0 05-22-2024 Ambulatory Visit Summary Ambulatory Visit Summary NELLY HANNON :1935 Visit Date:05/22/2024 Ambulatory Visit Instructions Your Diagnosis BPH with urinary obstruction History of prostate cancer Nocturia Your Care Team Attending Physician - Cristela [...] Cristela WINTER MD Where: [facility] [address] [place] [address]- You Need to Schedule the Following Appointments Follow Up with Cristela WINTER MD, URL When: Comments: 1 yr w/ PSA Where: [facility] [address], [place] [address]- [phone] Medications What How Much When Instructions Unchanged [...] as w (more content not included)... Normal [facility] Urology Office/Clinic Noteon 05-22-2024 Urology Office/Clinic Note [...] Urology [address], [place] [address]- [phone] Additional Instructions: 1 yr w/ PSA Patient Education Prostate Cancer Screening I, Linda Izquierdo, personally scribed for Dr. Winter on 05/22/2024 09:21:26. . Documentation recorded by the scribe, Linda [...] SARS-CoV-2 (COVID-19) mRNA-1273 vaccine 12/09/2020 Recorded Normal [facility] Comment on above: Result Comment: Elec tronically Signed By: Cristela WINTER MD\.br\Date and Time Signed: 05/22/24 09:22 EDT\.br\Electronically Co-Signed By: Linda Izquierdo.br\Date and Time Co-Signed: 05/22/24 09:21 EDT No Panel Informationon 05-10 Prostate Specific Antigen Total <0.13 ng/mL <=4.00 [facility] Office Visiton 05-02-2024 Follow-up visit [id number] Nelly Hannon 1935 M Date Provider Department Center 05/02/2024 [facility] Family History Problem Relation Age of Onset Other Mother Coronary artery disease Father Family Status - Relation Status Age at Mother Father Level of Service:46206 [place] OFFICE/OUTPATIENT ESTABLISHED MOD MDM 30 MIN Reason for Visit and Comments: Atrial Fibrillation [80] Congestive Heart Failure [127] Hypertension [499589] Hyperlipidemia [182] Normal [facility] Basophils Auto (Bld) [#/Vol] on 04-20-2024 Basophils (Bld) [#/Vol] 0.1 10 3/uL 0.0-0.1 [facility] Basophils/100 WBC Auto (Bld) on 04-20-2024 Basophils/100 WBC (Bld) 1.4 % 0.2-2.0 [facility] Eosinophils/100 WBC Auto (Bl d)on 04-20-2024 Eosinophils/100 WBC (Bld) 3.3 % 0.9-7.0 [facility] Erythrocyte distribution wid th Auto (RBC) [Ratio]on 04-20-2024 Erythrocyte distribution width (RBC) [Ratio] 13.7 % 11.0-15.0 [facility] Hematocrit Auto (Bld) [Volum e fraction]on 04-20-2024 Hematocrit (Bld) [Volume fraction] 32.0 % Low 42.0-54.0 [facility] Hemoglobin [Mass/volume] in Bloodon 04-20-2024 Hemoglobin (Bld) [Mass/Vol] 10.0 g/dL Low 14.0-18.0 [facility] Iron binding capacity [Mass/ volume] in Serum or Plasmaon 04-20-2024 Iron binding capacity [Mass/Vol] 264.0 ug/dL 250.0-450.0 [facility] Iron saturation [Mass Fracti on] in Serum or Plasmaon 04-20-2024 Iron saturation [Mass fraction] 22.3 % [facility] Laboratory - Chemistry and C hemistry - challengeon 04-20-2024 Cobalamin (Vitamin B12) [Mass/Vol] 1273.0 pg/mL High 193.0-986.0 [facility] Ferritin [Mass/Vol] 122.0 ng/mL 26.0-388.0 [facility] Iron [Mass/Vol] 59.0 ug/dL Low 65.0-175.0 [facility] Laboratory - Hematology and Cell countson 04-20-2024 Immature granulocytes/100 WBC (Bld) 0.2 % 0.0-0.5 [facility] Leukocytes [#/volume] correc bert for nucleated erythrocytes in Blood by Automated counon 04-20-2024 WBC corrected for nucl RBC Auto (Bld) [#/Vol] 4.2 10 3/uL 4.0-11.0 [facility] Lymphocytes Auto (Bld) [#/Vo l]on 04-20-2024 Lymphocytes (Bld) [#/Vol] 1.0 10 3/uL Low 1.2-3.8 [facility] Lymphocytes/100 WBC Auto (Bl d)on 04-20-2024 Lymphocytes/100 WBC (Bld) 23.6 % 20.5-60.0 [facility] MCH Auto (RBC) [Entitic mass ]on 04-20-2024 MCH (RBC) [Entitic mass] 31.1 pg 25.9-34.0 [facility] MCHC Auto (RBC) [Mass/Vol]on 04-20-2024 MCHC (RBC) [Mass/Vol] 31.3 g/dL 29.9-35.2 [facility] MCV Auto (RBC) [Entitic vol] on 04-20-2024 MCV (RBC) [Entitic vol] 99.4 fL High 80.0-94.0 [facility] Monocytes Auto (Bld) [#/Vol] on 04-20-2024 Monocytes (Bld) [#/Vol] 0.6 10 3/uL 0.3-0.8 [facility] Monocytes/100 WBC Auto (Bld) on 04-20-2024 Monocytes/100 WBC (Bld) 13.7 % High 1.7-12.0 [facility] Neutrophils Auto (Bld) [#/Vo l]on 04-20-2024 Neutrophils (Bld) [#/Vol] 2.5 10 3/uL 1.4-6.5 [facility] Neutrophils/100 WBC Auto (Bl d)on 04-20-2024 Neutrophils/100 WBC (Bld) 57.8 % 43.0-75.0 [facility] No Panel Informationon 04-20 Eosinophils # (Auto) 0.1 10 3/uL 0.0-0.7 [facility] Folate 10.10 ng/mL 8.60-58.90 [facility] Immature Granulocyte # (Auto) 0.01 10 3/uL 0.00-0.03 [facility] Platelet mean volume Auto (B ld) [Entitic vol]on 04-20-2024 Platelet mean volume (Bld) [Entitic vol] 9.9 fL 9.5-13.5 [facility] Platelets Auto (Bld) [#/Vol] on 04-20-2024 Platelets (Bld) [#/Vol] 110 10 3/uL Low 150-450 [facility] RBC Auto (Bld) [#/Vol]on RBC (Bld) [#/Vol] 3.22 10 6/uL Low 4.70-6.10 [facility] Alanine aminotransferase [En zymatic activity/volume] in Serum or PlasmaOrdered By: Adilene Weinberg on 03-14-2024 ALT [Catalytic activity/Vol] 18 U/L Normal 7-52 [facility] Comment on above: Performed By: #### C MP, LDH, CBC #### [facility] [address] [place] [address] Albumin [Mass/volume] in Ser um or Plasma by Bromocresol green (BCG) dye binding methoOrdered By: Adilene Weinberg on 03-14-2024 Albumin BCG dye [Mass/Vol] 4.3 g/dL 3.5-5.7 [facility] Alkaline phosphatase [Enzyma tic activity/volume] in Serum or PlasmaOrdered By: Adilene Weinberg on 03-14-2024 ALP [Catalytic activity/Vol] 85 U/L Normal 34-104 [facility] Comment on above: Performed By: #### C MP, LDH, CBC #### [facility] [address] [place] [address] Aspartate aminotransferase [ Enzymatic activity/volume] in Serum or PlasmaOrdered By: Adilene Weinberg on 03-14-2024 AST [Catalytic activity/Vol] 17 U/L Normal 13-39 [facility] Comment on above: Performed By: #### C MP, LDH, CBC #### [facility] [address] [place] [address] Automated basophil %Ordered By: Adilene Weinberg on 03-14-2024 Basophils/100 WBC (Bld) 0.8 % Normal . [facility] Comment on above: Performed By: #### C MP, LDH, CBC #### [facility] [address] [place] [address] [place] Automated basophil countOrde red By: Adilene Weinberg on 03-14-2024 Basophils (Bld) [#/Vol] 0.0 10*3/uL Normal 0.0-0.2 [facility] Comment on above: Result Comment: PERF ORMED BY: [place] [address] PATHOLOGIST [employer] MACHINE OPERATOR NIYA BARRERA M.D. Performed By: #### C MP, LDH, CBC #### [address] Automated blood monocyte cou ntOrdered By: Adilene Weinberg on 03-14-2024 Monocytes (Bld) [#/Vol] 0.8 10*3/uL Normal 0.0-0.8 [facility] Comment on above: Performed By: #### C MP, LDH, CBC #### [address] Automated eosinophil %Ordere d By: Adilene Weinberg on 03-14-2024 Eosinophils/100 WBC (Bld) 2.1 % Normal . [facility] Comment on above: Performed By: #### C MP, LDH, CBC #### [address] Automated eosinophil countOr dered By: Adilene Weinberg on 03-14-2024 Eosinophils (Bld) [#/Vol] 0.1 10*3/uL Normal 0.0-0.45 [facility] Comment on above: Performed By: #### C MP, LDH, CBC #### [address] Automated monocyte %Ordered By: Adilene Weinberg on 03-14-2024 Monocytes/100 WBC (Bld) 12.8 % Normal . [facility] Comment on above: Performed By: #### C MP, LDH, CBC #### [address] Automated neutrophil %Ordere d By: Adilene Weinberg on 03-14-2024 Neutrophils/100 WBC (Bld) 72.6 % Normal . [facility] Comment on above: Performed By: #### C MP, LDH, CBC #### [address] Bilirubin.total [Mass/volume ] in Serum or PlasmaOrdered By: Adilene Weinberg on 03-14-2024 Bilirubin [Mass/Vol] 0.6 mg/dL Normal 0.3-1.0 [facility] Comment on above: Performed By: #### C MP, LDH, CBC #### [address] Calcium [Mass/volume] in Ser um or PlasmaOrdered By: Adilene Weinberg on 03-14-2024 Calcium [Mass/Vol] 9.4 mg/dL Normal 8.6-10.[address] [facility] Comment on above: Performed By: #### C MP, LDH, CBC #### [address] Carbon dioxide, total [Moles /volume] in Serum or PlasmaOrdered By: Adilene Weinberg on 03-14-2024 CO2 [Moles/Vol] 31.8 mmol/L High 21.0-31.0 [facility] Comment on above: Performed By: #### C MP, LDH, CBC #### [address] Chloride [Moles/volume] in S boby or PlasmaOrdered By: Adilene Weinberg on 03-14-2024 Chloride [Moles/Vol] 105 mmol/L Normal 98-107 [facility] Comment on above: Performed By: #### C MP, LDH, CBC #### [address] Complete Blood Count Auto Di ffon 03-14-2024 Mean Corpuscular HGB Conc 34.0 g/dL Normal 32.5-35.6 [facility] Comment on above: Performed By: #### C MP, LDH, CBC #### [address] NRBC% 0.1 /100{WBC} Normal 0-0.[address] [facility] Comment on above: Performed By: #### C MP, LDH, CBC #### [address] Comprehensive Metabolic Pane delbert 03-14-2024 Albumin [Mass/Vol] 4.3 g/dL Normal 3.5-5.7 [facility] Comment on above: Performed By: #### C MP, LDH, CBC #### [address] Creatinine Clr Calc Pharmacy 51.65 Normal [facility] Comment on above: Performed By: #### C MP, LDH, CBC #### [address] GFR/1.73 sq M.predicted MDRD (S/P/Bld) [Vol rate/Area] mL/min/{1.73_m2} Normal [facility] Comment on above: Performed By: #### C MP, LDH, CBC #### [address] Creatinine [Mass/volume] in Serum or PlasmaOrdered By: Adilene Weinberg on 03-14-2024 Creatinine [Mass/Vol] 1.06 mg/dL Normal 0.70-1.30 [facility] Comment on above: Performed By: #### C MP, LDH, CBC #### [address] Erythrocyte distribution wid th [Ratio] by Automated countOrdered By: Adilene Weinberg on 03-14-2024 Erythrocyte distribution width (RBC) [Ratio] 15.4 % High 12.0-14.8 [facility] Comment on above: Performed By: #### C MP, LDH, CBC #### [address] Erythrocytes [#/volume] in B lood by Automated countOrdered By: Adilene Weinberg on 03-14-2024 RBC (Bld) [#/Vol] 3.12 10*6/uL Low 3.90-5.60 [facility] Comment on above: Performed By: #### C MP, LDH, CBC #### [address] Glucose [Mass/volume] in Ser um or PlasmaOrdered By: Adilene Weinberg on 03-14-2024 Glucose [Mass/Vol] 89 mg/dL Normal 70-[address] [facility] Comment on above: ADA recommended refe rence rangeRandom Glucose Reference Range is dependent on time and content of last meal. Glucose of more than 200 mg/dL in a nonstressed, ambulatory subject supports the diagnosis of Diabetes Mellitus. Result Comment: [place] om Glucose Reference Range is dependent on time and content of last meal. Glucose of more than 200 mg/dL in a nonstressed, ambulatory subject supports the diagnosis of Diabetes Mellitus. ADA recommended reference range Performed By: #### C MP, LDH, CBC #### [address] Hematocrit [Volume Fraction] of Blood by Automated countOrdered By: Adilene Weinberg on 03-14-2024 Hematocrit (Bld) [Volume fraction] 28.8 % Low 38.8-50.0 [facility] Comment on above: Performed By: #### C MP, LDH, CBC #### [address] Hemoglobin [Mass/volume] in BloodOrdered By: Adilene Weinberg on 03-14-2024 Hemoglobin (Bld) [Mass/Vol] 9.8 g/dL Low 13.0-17.0 [facility] Comment on above: Performed By: #### C MP, LDH, CBC #### [address] LDH Lactate Dehydrogenaseon 03-14-2024 LDH Lactate Dehydrogenase 205 U/L Normal 140-271 [facility] Comment on above: Result Comment: PERF ORMED BY: [place] [address] PATHOLOGIST [employer] MACHINE OPERATOR NIYA BARRERA M.D. Performed By: #### C MP, LDH, CBC #### [address] Lactate dehydrogenase [Enzym atic activity/volume] in Serum or Plasma by Lactate to pyOrdered By: Adilene Weinberg on 03-14-2024 LDH Lactate to pyruvate reaction [Catalytic activity/Vol] 205 U/L 140-271 [facility] Leukocytes [#/volume] correc bert for nucleated erythrocytes in Blood by Automated counOrdered By: Adilene Weinberg on 03-14-2024 WBC corrected for nucl RBC Auto (Bld) [#/Vol] 6.0 10*3/uL 4.1-10.5 [facility] Leukocytes [#/volume] in Blo od by Automated countOrdered By: Adilene Weinberg on 03-14-2024 WBC (Bld) [#/Vol] 6.0 10*3/uL Normal 4.1-10.[address] [facility] Comment on above: Performed By: #### C MP, LDH, CBC #### [address] Lymphocytes [#/volume] in Bl ood by Automated countOrdered By: Adilene Weinberg on 03-14-2024 Lymphocytes (Bld) [#/Vol] 0.7 10*3/uL Low 1.00-4.8 [facility] Comment on above: Performed By: #### C MP, LDH, CBC #### [address] Lymphocytes/100 leukocytes i n Blood by Automated countOrdered By: Adilene Weinberg on 03-14-2024 Lymphocytes/100 WBC (Bld) 11.7 % Normal . [facility] [facility] Comment on above: Performed By: #### C MP, LDH, CBC #### [address] MCH [Entitic mass] by Automa bert countOrdered By: Adilene Weinberg on 03-14-2024 MCH (RBC) [Entitic mass] 31.4 pg Normal 27.5-35.2 [facility] Comment on above: Performed By: #### C MP, LDH, CBC #### [address] MCHC Auto (RBC) [Mass/Vol]Or dered By: Adilene Weinberg on 03-14-2024 MCHC (RBC) [Mass/Vol] 34.0 g/dL 32.5-35.6 [facility] MCV [Entitic volume] by Auto mated countOrdered By: Adilene Weinberg on 03-14-2024 MCV (RBC) [Entitic vol] 92.2 fL Normal 83.5-101 F [facility] Comment on above: Performed By: #### C MP, LDH, CBC #### [address] Neutrophils [#/volume] in Bl ood by Automated countOrdered By: Adilene Weinberg on 03-14-2024 Neutrophils (Bld) [#/Vol] 4.3 10*3/uL Normal 1.8-7.7 [facility] Comment on above: Performed By: #### C MP, LDH, CBC #### [address] No Panel InformationOrdered By: Adilene Weinberg on 03-14-2024 Estimated GFR (CKD-EPI) > 60.0 mL/Min [facility] Creatinine Clearance (Chem 51.65 [facility] Nucleated erythrocytes [Pres ence] in Blood by Automated countOrdered By: Adilnee Weinberg on 03-14-2024 Nucleated RBC Auto Ql (Bld) 0.1 /100{WBC} 0-0.5 [facility] Platelet mean volume [Entiti c volume] in Blood by Automated countOrdered By: Adilene Weinberg on 03-14-2024 Platelet mean volume (Bld) [Entitic vol] 8.1 fL Normal 6.6-10.1 [facility] Comment on above: Performed By: #### C MP, LDH, CBC #### [facility] [address] [place] [address] Platelets [#/volume] in Bloo d by Automated countOrdered By: Adilene Weinberg on 03-14-2024 Platelets (Bld) [#/Vol] 145 10*3/uL Low 150-450 [facility] Comment on above: Performed By: #### C MP, LDH, CBC #### [address] Potassium [Moles/volume] in Serum or PlasmaOrdered By: Adilene Weinberg on 03-14-2024 Potassium [Moles/Vol] 3.9 mmol/L Normal 3.5-5.1 [facility] Comment on above: Performed By: #### C MP, LDH, CBC #### [address] Protein [Mass/volume] in Ser um or PlasmaOrdered By: Adilene Weinberg on 03-14-2024 Protein [Mass/Vol] 6.3 g/dL Low 6.4-8.[address] [facility] Comment on above: Performed By: #### C MP, LDH, CBC #### [address] Serum globulin measurement b y calculation (mass/volume)Ordered By: Adilene Weinberg on 03-14-2024 Globulin (S) [Mass/Vol] 2.0 g/dL Normal F [facility] Comment on above: Performed By: #### C MP, LDH, CBC #### [address] Serum or plasma albumin/glob ulin mass ratioOrdered By: Adilene Weinberg on 03-14-2024 Albumin/Globulin [Mass ratio] 2.2 {ratio} Normal [facility] Comment on above: Performed By: #### C MP, LDH, CBC #### [address] Serum or plasma anion gap de terminationOrdered By: Adilene Weinberg on 03-14-2024 Anion gap [Moles/Vol] 8.1 mmol/L Normal 6.0-15.0 [facility] Comment on above: Performed By: #### C MP, LDH, CBC #### [address] Sodium [Moles/volume] in Ser um or PlasmaOrdered By: Adilene Weinberg on 03-14-2024 Sodium [Moles/Vol] 141 mmol/L Normal 136-[address] [facility] Comment on above: Performed By: #### C MP, LDH, CBC #### [address] US extremity nonvascularon 0 03-14-2024 US extremity nonvascular [facility] [place] [address] [place] [address] Ultrasound Report Signed Patient: Nelly Hannon MR#: [id number] 0 : 1935 Acct:[id number] Age/Sex: 88 / M ADM Date: 03/14/24 Loc: XT Room: Type: [facility] Attending Dr: Adilene Weinberg MD [...] Silver Jr., D.O.03/14/2024 2:34 PM Dictation Location: [place] [address] Tech: Rachelle Mckenzie Transcribed By: PHYLLIS 03/14/24 1434 Dictated By: Festus Silver Jr, DO 03/14/24 1433 Signed By: 03/14/24 1434 Normal [facility] Urea nitrogen [Mass/volume] in Serum or PlasmaOrdered By: Adilene Weinberg on 03-14-2024 Urea nitrogen [Mass/Vol] 14 mg/dL Normal 04-27 [facility] Comment on above: Performed By: #### C MP, LDH, CBC #### [facility] [address] [place] [address] [place] Alanine aminotransferase [En zymatic activity/volume] in Serum or PlasmaOrdered By: Michele Arteaga on 12-27-2023 ALT [Catalytic activity/Vol] 30 U/L Normal [facility] Comment on above: Performed By: #### C REAT, HEPATIC, ESR, CBC ####[facility] [id number] [place] [id number] [place] Albumin [Mass/volume] in Ser um or Plasma by Bromocresol green (BCG) dye binding methoOrdered By: Michele Arteaga on 12-27-2023 Albumin BCG dye [Mass/Vol] 4.5 g/dL 3.5-5.7 [facility] Alkaline phosphatase [Enzyma tic activity/volume] in Serum or PlasmaOrdered By: Michele Arteaga on 12-27-2023 ALP [Catalytic activity/Vol] 74 U/L Normal 34-104 [facility] Comment on above: Performed By: #### C REAT, HEPATIC, ESR, CBC ####[address] Aspartate aminotransferase [ Enzymatic activity/volume] in Serum or PlasmaOrdered By: Michele Arteaga on 12-27-2023 AST [Catalytic activity/Vol] 24 U/L Normal 13-39 [facility] Comment on above: Performed By: #### C REAT, HEPATIC, ESR, CBC ####[address] Automated basophil %Ordered By: Michele Arteaga on 12-27-2023 Basophils/100 WBC (Bld) 0.9 % Normal . [facility] Comment on above: Performed By: #### C REAT, HEPATIC, ESR, CBC ####[address] Automated basophil countOrde red By: Michele Arteaga on 12-27-2023 Basophils (Bld) [#/Vol] 0.0 10*3/uL Normal 0.0-0.2 [facility] Comment on above: Performed By: #### C REAT, HEPATIC, ESR, CBC ####[address] Automated blood monocyte cou ntOrdered By: Michele Arteaga on 12-27-2023 Monocytes (Bld) [#/Vol] 0.5 10*3/uL Normal 0.0-0.8 [facility] Comment on above: Performed By: #### C REAT, HEPATIC, ESR, CBC ####[address] Automated eosinophil %Ordere d By: Michele Arteaga on 12-27-2023 Eosinophils/100 WBC (Bld) 1.9 % Normal . [facility] Comment on above: Performed By: #### C REAT, HEPATIC, ESR, CBC ####[address] Automated eosinophil countOr dered By: Michele Arteaga on 12-27-2023 Eosinophils (Bld) [#/Vol] 0.1 10*3/uL Normal 0.0-0.45 [facility] Comment on above: Performed By: #### C REAT, HEPATIC, ESR, CBC ####[address] Automated monocyte %Ordered By: Michele Arteaga on 12-27-2023 Monocytes/100 WBC (Bld) 11.0 % Normal . [facility] Comment on above: Performed By: #### C REAT, HEPATIC, ESR, CBC ####[address] Automated neutrophil %Ordere d By: Michele Arteaga on 12-27-2023 Neutrophils/100 WBC (Bld) 69.1 % Normal . [facility] Comment on above: Performed By: #### C REAT, HEPATIC, ESR, CBC ####[address] Bilirubin.direct [Mass/volum e] in Serum or PlasmaOrdered By: Michele Arteaga on 12-27-2023 Bilirubin.direct [Mass/Vol] 0.20 mg/dL 0.03-0.18 [facility] Bilirubin.total [Mass/volume ] in Serum or PlasmaOrdered By: Michele Arteaga on 12-27-2023 Bilirubin [Mass/Vol] 0.7 mg/dL Normal 0.3-1.0 [facility] Comment on above: Performed By: #### C REAT, HEPATIC, ESR, CBC ####[address] Complete Blood Count Auto Di ffon 12-27-2023 Mean Corpuscular HGB Conc 32.9 g/dL Normal 32.5-35.6 [facility] Comment on above: Performed By: #### C REAT, HEPATIC, ESR, CBC ####[address] [address] [facility] NRBC% 0.1 /100{WBC} Normal 0-0.[address] [facility] Comment on above: Performed By: #### C REAT, HEPATIC, ESR, CBC ####[place] [id number] [facility] Creatinineon 12-27-2023 GFR/1.73 sq M.predicted MDRD (S/P/Bld) [Vol rate/Area] mL/min/{1.73_m2} Normal [facility] Comment on above: Result Comment: PERF ORMED BY: [facility] [address] [place] [address] PATHOLOGIST [employer]REL DEDENTING MACHINE OPERATOR NIYA BARRERA M.D. Performed By: #### C REAT, HEPATIC, ESR, CBC ####[address] Creatinine [Mass/volume] in Serum or PlasmaOrdered By: Michele Arteaga on 12-27-2023 Creatinine [Mass/Vol] 1.08 mg/dL Normal 0.70-1.30 [facility] Comment on above: Performed By: #### C REAT, HEPATIC, ESR, CBC ####[place] [id number] [facility] Erythrocyte Sedimentation Ra shayy 12-27-2023 ESR (Bld) [Velocity] 11 mm/h Normal 0-19 [facility] Comment on above: Result Comment: PERF ORMED BY: [facility] [address] [place] [address] PATHOLOGIST BARREL DEDENTING MACHINE OPERATOR NIYA BARRERA M.D. Performed By: #### C REAT, HEPATIC, ESR, CBC ####[place] [id number] [facility] Erythrocyte distribution wid th [Ratio] by Automated countOrdered By: Michele Arteaga on 12-27-2023 Erythrocyte distribution width (RBC) [Ratio] 14.8 % Normal 12.0-14.8 [facility] Comment on above: Performed By: #### C REAT, HEPATIC, ESR, CBC ####[address] Erythrocyte sedimentation ra te by Photometric methodOrdered By: Michele Arteaga on 12-27-2023 ESR Photometric method (Bld) [Velocity] 11 mm/hr 0-19 [facility] Erythrocytes [#/volume] in B lood by Automated countOrdered By: Michele Arteaga on 12-27-2023 RBC (Bld) [#/Vol] 3.48 10*6/uL Low 3.90-5.60 [facility] Comment on above: Performed By: #### C REAT, HEPATIC, ESR, CBC ####[address] Hematocrit [Volume Fraction] of Blood by Automated countOrdered By: Michele Arteaga on 12-27-2023 Hematocrit (Bld) [Volume fraction] 32.1 % Low 38.8-50.0 [facility] Comment on above: Performed By: #### C REAT, HEPATIC, ESR, CBC ####[address] Hemoglobin [Mass/volume] in BloodOrdered By: Michele Arteaga on 12-27-2023 Hemoglobin (Bld) [Mass/Vol] 10.5 g/dL Low 13.0-17.0 [facility] Comment on above: Performed By: #### C REAT, HEPATIC, ESR, CBC ####[address] Hepatic Panelon 12-27-2023 Albumin [Mass/Vol] 4.5 g/dL Normal 3.5-5.7 [facility] Comment on above: Performed By: #### C REAT, HEPATIC, ESR, CBC ####[address] Bilirubin,Indirect 0.5 mg/dL Normal [facility] Comment on above: Performed By: #### C REAT, HEPATIC, ESR, CBC ####[place] [address] Bilirubin.indirect [Mass/Vol] 0.20 mg/dL High 0.03-0.18 [facility] Comment on above: Performed By: #### C REAT, HEPATIC, ESR, CBC ####[address] Leukocytes [#/volume] correc bert for nucleated erythrocytes in Blood by Automated counOrdered By: Michele Arteaga on 12-27-2023 WBC corrected for nucl RBC Auto (Bld) [#/Vol] 4.9 10*3/uL 4.1-10.5 [facility] Leukocytes [#/volume] in Blo od by Automated countOrdered By: Michele Arteaga on 12-27-2023 WBC (Bld) [#/Vol] 4.9 10*3/uL Normal 4.1-10.[address] [facility] Comment on above: Performed By: #### C REAT, HEPATIC, ESR, CBC ####[address] Lymphocytes [#/volume] in Bl ood by Automated countOrdered By: Michele Arteaga on 12-27-2023 Lymphocytes (Bld) [#/Vol] 0.8 10*3/uL Low 1.00-4.8 [facility] Comment on above: Performed By: #### C REAT, HEPATIC, ESR, CBC ####[address] Lymphocytes/100 leukocytes i n Blood by Automated countOrdered By: Michele Arteaga on 12-27-2023 Lymphocytes/100 WBC (Bld) 17.1 % Normal . [facility] Comment on above: Performed By: #### C REAT, HEPATIC, ESR, CBC ####[address] MCH [Entitic mass] by Automa bert countOrdered By: Michele Arteaga on 12-27-2023 MCH (RBC) [Entitic mass] 30.3 pg Normal 27.5-35.2 [facility] Comment on above: Performed By: #### C REAT, HEPATIC, ESR, CBC ####[place] [id number] [place] [id number] [facility] MCHC Auto (RBC) [Mass/Vol]Or dered By: Michele Arteaga on 12-27-2023 MCHC (RBC) [Mass/Vol] 32.9 g/dL 32.5-35.6 [facility] MCV [Entitic volume] by Auto mated countOrdered By: Michele Arteaga on 12-27-2023 MCV (RBC) [Entitic vol] 92.2 fL Normal 83.5-101 F [facility] Comment on above: Performed By: #### C REAT, HEPATIC, ESR, CBC ####[place] [id number] [address] Neutrophils [#/volume] in Bl ood by Automated countOrdered By: Michele Arteaga on 12-27-2023 Neutrophils (Bld) [#/Vol] 3.4 10*3/uL Normal 1.8-7.7 [facility] Comment on above: Performed By: #### C REMILLI, HEPATIC, ESR, CBC ####[address] No Panel InformationOrdered By: Michele Arteaga on 12-27-2023 Estimated GFR (CKD-EPI) > 60.0 mL/Min [facility] Creatinine Clearance (Chem N/A [facility] Nucleated erythrocytes [Pres ence] in Blood by Automated countOrdered By: Michele Arteaga on 12-27-2023 Nucleated RBC Auto Ql (Bld) 0.1 /100{WBC} 0-0.5 [facility] Platelet mean volume [Entiti c volume] in Blood by Automated countOrdered By: Michele Arteaga on 12-27-2023 Platelet mean volume (Bld) [Entitic vol] 8.8 fL Normal 6.6-10.1 [facility] Comment on above: Performed By: #### C REAT, HEPATIC, ESR, CBC ####[place] [id number] [address] Platelets [#/volume] in Bloo d by Automated countOrdered By: Michele Arteaga on 12-27-2023 Platelets (Bld) [#/Vol] 127 10*3/uL Low 150-450 [facility] Comment on above: Performed By: #### C REAT, HEPATIC, ESR, CBC ####[place] [id number] [address] Protein [Mass/volume] in Ser um or PlasmaOrdered By: Michele Arteaga on 12-27-2023 Protein [Mass/Vol] 6.0 g/dL Low 6.4-8.[address] [facility] Comment on above: Performed By: #### C REAT, HEPATIC, ESR, CBC ####[place] [id number] [address] Serum globulin measurement b y calculation (mass/volume)Ordered By: Michele Arteaga on 12-27-2023 Globulin (S) [Mass/Vol] 1.5 g/dL Normal F [facility] Comment on above: Performed By: #### C REAT, HEPATIC, ESR, CBC ####[place] [id number] [address] Serum or plasma albumin/glob ulin mass ratioOrdered By: Michele Arteaga on 12-27-2023 Albumin/Globulin [Mass ratio] 3.0 {ratio} Normal [facility] Comment on above: Performed By: #### C REAT, HEPATIC, ESR, CBC ####[address] Serum or plasma non-glucuron idated bilirubin measurement (mass/volume)Ordered By: Michele Arteaga on 12-27-2023 Bilirubin.indirect [Mass/Vol] 0.5 mg/dL [facility] CT head/brain wo/w conon CT head/brain wo/w con [facility] [place] [address] [place] [address] CT Scan Report Signed Patient: Nelly Hannon MR#: [id number] 0 : 1935 Acct:[id number] Age/Sex: 88 / M ADM Date: 11/29/23 Loc: XT Room: Type: REG RCR Attending Dr: Adilene Weinberg MD Copies [...] Abdoul William M.D.11/29/2023 3:10 PM Dictation Location: [place] [address] Transcribed By: [facility] 11/29/23 1510 Dictated By: Abdoul William DO 11/29/23 1506 Signed By: 11/29/23 1510 Normal [facility] Creatinine (Bld) [Mass/Vol]O rdered By: Adilene Weinberg on 11-29-2023 Creatinine [Mass/Vol] Whole blood creatinine measurement 0.6-1.3 [facility] Comment on above: ER/ESD physician is notified/shown all ISTAT results.Critical values may be confirmed by laboratory testing ifdeemed necessary by ER attending doctor. ISTAT XRay CREon 11-29-2023 ISTAT GFR 53.501 Normal [facility] Comment on above: Result Comment: PERF ORMED BY: [address] [address] PATHOLOGIST BARREL DEDENTING MACHINE OPERATOR NIYA BARRERA M.D. Performed By: #### I SCRE #### [address] [place] [address] [place] No Panel InformationOrdered By: Adilene Weinberg on 11-29-2023 Bedside Estimated GFR (eGFR) 53.501 [facility] Whole blood creatinine measu rementOrdered By: Adilene Weinberg on 11-29-2023 Creatinine [Mass/Vol] 1.3 mg/dL Normal 0.6-1.3 [facility] Comment on above: ER/ESD physician is notified/shown all ISTAT results.Critical values may be confirmed by laboratory testing ifdeemed necessary by ER attending doctor. Result Comment: ER/E SD physician is notified/shown all ISTAT results. Critical values may be confirmed by laboratory testing if deemed necessary by ER attending doctor. Performed By: #### I SCRE #### [address] Capillary blood glucose kumar urement by glucometer (mass/volume)Ordered By: Elkin Holly on 11-19-2023 Glucose [Mass/Vol] 88 mg/dL Normal [facility] Comment on above: Random Glucose Refer ence Range is dependent on time and content of last meal. Glucose of more than 200 mg/dL in a nonstressed, ambulatory subject supports the diagnosis of Diabetes Mellitus. Result Comment: [place] om Glucose Reference Range is dependent on time and content of last meal. Glucose of more than 200 mg/dL in a nonstressed, ambulatory subject supports the diagnosis of Diabetes Mellitus. PERFORMED BY: [place] [address] PATHOLOGIST BARREL DEDENTING MACHINE OPERATOR NIYA BARRERA M.D. Performed By: #### G LULS #### Point of Care testing , PET tumor init tx strat wbon 11-19-2023 PET tumor init tx strat wb [facility] [place] [address] [place] [address] Nuclear Medicine Report Signed Patient: Nelly Hannon MR#: [id number] 0 : 1935 Acct:[id number] Age/Sex: 88 / M ADM Date: 11/19/23 Loc: Room: Type: [facility] Attending Dr: Elkin Holly MD Copies [...] by: Festus Silver Jr., D.O.11/19/2023 1:01 PM Dictation Location: [place] [address] Transcribed By: [facility] 11/19/23 1301 Dictated By: Festus Silver Jr, DO 11/19/23 1251 Signed By: 11/19/23 1301 Normal [facility] DERMPATH LAB- DERMATOPATHOLO [facility] 10-28-2023 DERMPATH LAB- DERMATOPATHOLOGY Pathology report.total SEE COMMENT Dermatopathology Case: [id number] Authorizing Provider: Elkin Holly MD Collected: 10/28/2023 1318 Ordering Location: [facility] Received: 10/28/2023 1346 OR Pathologist: Donna Blanchard [...] 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 Note: Microscopic [...] melanoma of forehead (CMS/HCC) C43.39 Specimen ID: [id number], [id number] Specimen Source: SKIN WIDE EXCISION Site/Location: WIDE LOCAL EXCISION RIGHT SCALP, LONG STITCH LATERAL AT 9 OCLOCK AND SHORT STITCH SUPERIOR AT 12 OCLOCK Collection Comments: Specimen ID: [id number], [id number] Specimen Source: SENTINEL LYMPH NODE OTHER Site/Location: SENTINEL LYMPH NODE #1 RIGHT INTRAPAROTID Collection Comments: Specimen ID: [id number], [id number] Specimen Source: SENTINEL LYMPH NODE OTHER Site/Location: [...] determined by the Department of Pathology at [facility]. The FDA does not require this [...] serially sectioned an (more content not included)... 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 COMPARISON: None. ACCESSION NUMBER(S): [id number] ORDERING CLINICIAN: ELKIN HOLLY TECHNIQUE: DIVISION OF [...] localization to the right pre-auricular lymph node. Grant Writer localizing images were sent to PACS. I personally reviewed the images/study and I agree with the findings as stated by Nuclear Medicine fellow Ruthann Lee MD. This study was interpreted at [place], [place]. MACRO: None Signed by: Michele Sweeney 10/28/2023 12:48 PM Dictation workstation: [id number] [facility] NM Lymphatic vessels Views W radionuclide intra lymphaticon 10-28-2023 Successful sentinel lymph node localization to the right pre-auricular lymph node. Grant Writer localizing images were sent to PACS. I personally reviewed the images/study and I agree with the findings as stated by Nuclear Medicine fellow Ruthann Lee MD. This study was interpreted at [place], [place]. MACRO: None Signed by: Michele Sweeney 10/28/2023 12:48 PM Dictation workstation: [id number] Interpreted By: Michele Sweeney and Maltbie Grace STUDY: NM LYMPHOSCINTIGRAM; 10/28/2023 12:24 pm INDICATION: Signs/Symptoms:lympho sentigraphy for SLNB right forehead melanoma. COMPARISON: None. ACCESSION NUMBER(S): [id number] ORDERING CLINICIAN: ELKIN HOLLY TECHNIQUE: DIVISION OF [...] right forehead melanoma. COMPARISON: None. ACCESSION NUMBER(S): [id number] ORDERING CLINICIAN: ELKIN HOLLY TECHNIQUE: DIVISION OF [...] localization to the right pre-auricular lymph node. Grant Writer localizing images were sent to PACS. I personally reviewed the images/study and I agree with the findings as stated by Nuclear Medicine fellow Ruthann Lee MD. This study was interpreted at [place], [place]. MACRO: None Signed by: Michele Sweeney 10/28/2023 12:48 PM Dictation workstation: [id number] [facility] Work Phone: Radiology Study observation (narrative) [facility] Work Phone: NM Lymphatic vessels Views W radionuclide intra lymphaticOrdered By: Michele Sweeney on 10-28-2023 [facility] Work Phone: NM SPECT/CT LOCALIZATION ADD ON SINGLE DAYon 10-28-2023 NM SPECT/CT LOCALIZATION ADD ON SINGLE DAY Interpreted By: Michele Sweeney and Maltbie Grace STUDY: NM LYMPHOSCINTIGRAM; 10/28/2023 12:24 pm INDICATION: Signs/Symptoms:lympho sentigraphy for SLNB right forehead melanoma. COMPARISON: None. ACCESSION NUMBER(S): [id number] ORDERING CLINICIAN: ELKIN HOLLY TECHNIQUE: DIVISION OF [...] localization to the right pre-auricular lymph node. Grant Writer localizing images were sent to PACS. I personally reviewed the images/study and I agree with the findings as stated by Nuclear Medicine fellow Ruthann Lee MD. This study was interpreted at [place], [place]. MACRO: None Signed by: Michele Sweeney 10/28/2023 12:48 PM Dictation workstation: [id number] Normal [facility] BRAF gene Sequencing Doc (Ca ncer specimen)on 09-23-2023 BRAF EXON 15 RESULTS SEE COMMENT Normal [facility] Comment on above: Order Comment: Mater ials Received: 4 slides, [facility], [id number] (BX: 08/31/23) Result Comment: Spec imen: FFPE, [id number] Estimated Tumor Content: 30% GENOMIC FINDINGS: None [...] analytical performance characteristics have been determined by [facility]. This test has not been cleared or approved by the FDA; however, the FDA has determined that such approval is not necessary. The [facility] is certified under the Clinical Laboratory Improvement Amendments of 1988 (CLIA-88) as qualified to perform high complexity testing. Performed By: #### 8 3061-2 #### DEANGELO CERVANTES ([id number]) [facility] ([facility]) [address] [place] [address] ELECTRONICALLY SIGNED BY Deangelo Cervantes MD PhD [facility] Comment on above: Order Comment: Tabatha wells Received: 4 slides, [facility], [id number] (BX: 08/31/23) Performed By: #### 8 3061-2 #### DEANGELO CERVANTES ([id number]) [facility] ([facility]) [address] [place] [address] Surgical pathology studyon 1 2-21-2023 Surgical pathology study Pathology report.total SEE COMMENT Dermatopathology Report Case: [id number] Authorizing Provider: Elkin Holly MD Collected: 09/23/2023 1447 Ordering Location: [facility] Received: 09/23/2023 1448 Center Pathologist: Donna Blanchard MD Specimen: OUTSIDE BLOCK(S)/SLIDE(S), 4 SLIDES, [facility], [id number] (BX: 08/31/23) Path report.final diagnosis SEE COMMENT 4 SLIDES, [facility], [id number] A & B (BX 08/31/23). A. SKIN, [...] Received for consultation from [facility] are four slides labeled [id number] (Bx: 08/31/23) along with the corresponding pathology report. Slides for specimens A and B received. Path report.microscopic observation A: Microscopic analysis shows irregular growth of keratinocytes that are associated with the epidermis and invade the dermis in isolated islands and strands. Horn pearls and partial keratinization are present.The basal cells are poorly demarcated from the stroma. Atypia is mild, and mitoses are rare. [facility] Comment on above: Order Comment: Mater ials Received: 4 slides, [facility], [id number] (BX: 08/31/23) Alanine aminotransferase [En zymatic activity/volume] in Serum or PlasmaOrdered By: Michele Arteaga on 07-19-2023 ALT [Catalytic activity/Vol] 32 U/L 7-52 [facility] Albumin [Mass/volume] in Ser um or Plasma by Bromocresol green (BCG) dye binding methoOrdered By: Michele Arteaga on 07-19-2023 Albumin BCG dye [Mass/Vol] 4.1 g/dL 3.5-5.7 [facility] Alkaline phosphatase [Enzyma tic activity/volume] in Serum or PlasmaOrdered By: Michele Arteaga on 07-19-2023 ALP [Catalytic activity/Vol] 63 U/L 34-104 [facility] Aspartate aminotransferase [ Enzymatic activity/volume] in Serum or PlasmaOrdered By: Michele Arteaga on 07-19-2023 AST [Catalytic activity/Vol] 22 U/L 13-39 [facility] Basophils Auto (Bld) [#/Vol] Ordered By: Michele Arteaga on 07-19-2023 Basophils (Bld) [#/Vol] 0.0 10*3/uL 0.0-0.2 [facility] Basophils/100 WBC Auto (Bld) Ordered By: Michele Arteaga on 07-19-2023 Basophils/100 WBC (Bld) 0.7 % . [facility] Bilirubin.direct [Mass/volum e] in Serum or PlasmaOrdered By: Michele Arteaga on 07-19-2023 Bilirubin.direct [Mass/Vol] 0.10 mg/dL 0.03-0.18 [facility] Bilirubin.total [Mass/volume ] in Serum or PlasmaOrdered By: Michele Arteaga on 07-19-2023 Bilirubin [Mass/Vol] 0.6 mg/dL 0.3-1.0 [facility] Creatinine [Mass/volume] in Serum or PlasmaOrdered By: Michele Arteaga on 07-19-2023 Creatinine [Mass/Vol] 1.09 mg/dL 0.70-1.30 [facility] Eosinophils Auto (Bld) [#/Vo l]Ordered By: Michele Arteaga on 07-19-2023 Eosinophils (Bld) [#/Vol] 0.0 10*3/uL 0.0-0.45 [facility] Eosinophils/100 WBC Auto (Bl d)Ordered By: Michele Arteaga on 07-19-2023 Eosinophils/100 WBC (Bld) 0.9 % . [facility] Erythrocyte distribution wid th Auto (RBC) [Ratio]Ordered By: Michele Arteaga on 07-19-2023 Erythrocyte distribution width (RBC) [Ratio] 14.6 % 12.0-14.8 [facility] Erythrocyte sedimentation ra te by Photometric methodOrdered By: Michele Arteaga on 07-19-2023 ESR Photometric method (Bld) [Velocity] 5 mm/hr 0-19 [facility] Globulin Calc (S) [Mass/Vol] Ordered By: Michele Arteaga on 07-19-2023 Globulin (S) [Mass/Vol] 1.7 g/dL [facility] Hematocrit Auto (Bld) [Volum e fraction]Ordered By: Michele Arteaga on 07-19-2023 Hematocrit (Bld) [Volume fraction] 31.9 % 38.8-50.0 [facility] Hemoglobin [Mass/volume] in BloodOrdered By: Michele Arteaga on 07-19-2023 Hemoglobin (Bld) [Mass/Vol] 11.0 g/dL 13.0-17.0 [facility] Leukocytes [#/volume] correc bert for nucleated erythrocytes in Blood by Automated counOrdered By: Michele Arteaga on 07-19-2023 WBC corrected for nucl RBC Auto (Bld) [#/Vol] 4.2 10*3/uL 4.1-10.5 [facility] Lymphocytes Auto (Bld) [#/Vo l]Ordered By: Michele Arteaga on 07-19-2023 Lymphocytes (Bld) [#/Vol] 0.7 10*3/uL 1.00-4.8 [facility] Lymphocytes/100 WBC Auto (Bl d)Ordered By: Michele Arteaga on 07-19-2023 Lymphocytes/100 WBC (Bld) 16.1 % . [facility] MCH Auto (RBC) [Entitic mass ]Ordered By: Michele Arteaga on 07-19-2023 MCH (RBC) [Entitic mass] 32.2 pg 27.5-35.2 [facility] MCHC Auto (RBC) [Mass/Vol]Or dered By: Michele Arteaga on 07-19-2023 MCHC (RBC) [Mass/Vol] 34.4 g/dL 32.5-35.6 [facility] MCV Auto (RBC) [Entitic vol] Ordered By: Michele Arteaga on 07-19-2023 MCV (RBC) [Entitic vol] 93.7 fL 83.5-101 [facility] Monocytes Auto (Bld) [#/Vol] Ordered By: Michele Arteaga on 07-19-2023 Monocytes (Bld) [#/Vol] 0.5 10*3/uL 0.0-0.8 [facility] Monocytes/100 WBC Auto (Bld) Ordered By: Michele Arteaga on 07-19-2023 Monocytes/100 WBC (Bld) 11.2 % . [facility] Neutrophils Auto (Bld) [#/Vo l]Ordered By: Michele Arteaga on 07-19-2023 Neutrophils (Bld) [#/Vol] 3.0 10*3/uL 1.8-7.7 [facility] Neutrophils/100 WBC Auto (Bl d)Ordered By: Michele Arteaga on 07-19-2023 Neutrophils/100 WBC (Bld) 71.1 % . [facility] No Panel InformationOrdered By: Michele Arteaga on 07-19-2023 Estimated GFR (CKD-EPI) > 60.0 mL/Min [facility] Creatinine Clearance (Chem N/A [facility] Nucleated erythrocytes [Pres ence] in Blood by Automated countOrdered By: Michele Arteaga on 07-19-2023 Nucleated RBC Auto Ql (Bld) 0.2 /100{WBC} 0-0.5 [facility] Platelet mean volume Auto (B ld) [Entitic vol]Ordered By: Michele Arteaga on 07-19-2023 Platelet mean volume (Bld) [Entitic vol] 8.5 fL 6.6-10.1 [facility] Platelets Auto (Bld) [#/Vol] Ordered By: Michele Arteaga on 07-19-2023 Platelets (Bld) [#/Vol] 123 10*3/uL 150-450 [facility] Protein [Mass/volume] in Ser um or PlasmaOrdered By: Michele Arteaga on 07-19-2023 Protein [Mass/Vol] 5.8 g/dL 6.4-8.[address] [facility] RBC Auto (Bld) [#/Vol]Ordere d By: Michele Arteaga on 07-19-2023 RBC (Bld) [#/Vol] 3.40 10*6/uL 3.90-5.60 [facility] Serum or plasma albumin/glob ulin mass ratioOrdered By: Michele Arteaga on 07-19-2023 Albumin/Globulin [Mass ratio] 2.4 {ratio} [facility] Serum or plasma non-glucuron idated bilirubin measurement (mass/volume)Ordered By: Michele Arteaga on 07-19-2023 Bilirubin.indirect [Mass/Vol] 0.5 mg/dL [facility] WBC Auto (Bld) [#/Vol]Ordere d By: Michele Arteaga on 07-19-2023 WBC (Bld) [#/Vol] 4.2 10*3/uL 4.1-10.[address] [facility] Alanine aminotransferase [En zymatic activity/volume] in Serum or PlasmaOrdered By: Michele Arteaga on 03-23-2023 ALT [Catalytic activity/Vol] 23 U/L 7-52 [facility] Albumin [Mass/volume] in Ser um or Plasma by Bromocresol green (BCG) dye binding methoOrdered By: Michele Arteaga on 03-23-2023 Albumin BCG dye [Mass/Vol] 4.4 g/dL 3.5-5.7 [facility] Alkaline phosphatase [Enzyma tic activity/volume] in Serum or PlasmaOrdered By: Michele Arteaga on 03-23-2023 ALP [Catalytic activity/Vol] 88 U/L 34-104 [facility] Aspartate aminotransferase [ Enzymatic activity/volume] in Serum or PlasmaOrdered By: Michele Arteaga on 03-23-2023 AST [Catalytic activity/Vol] 20 U/L 13-39 [facility] Basophils Auto (Bld) [#/Vol] Ordered By: Michele Arteaga on 03-23-2023 Basophils (Bld) [#/Vol] 0.0 10*3/uL 0.0-0.2 [facility] Basophils/100 WBC Auto (Bld) Ordered By: Michele Arteaga on 03-23-2023 Basophils/100 WBC (Bld) 0.8 % . [facility] Bilirubin.direct [Mass/volum e] in Serum or PlasmaOrdered By: Michele Arteaga on 03-23-2023 Bilirubin.direct [Mass/Vol] 0.20 mg/dL 0.03-0.18 [facility] Bilirubin.total [Mass/volume ] in Serum or PlasmaOrdered By: Michele Arteaga on 03-23-2023 Bilirubin [Mass/Vol] 0.7 mg/dL 0.3-1.0 [facility] Creatinine [Mass/volume] in Serum or PlasmaOrdered By: Michele Arteaga on 03-23-2023 Creatinine [Mass/Vol] 1.10 mg/dL 0.70-1.30 [facility] Eosinophils Auto (Bld) [#/Vo l]Ordered By: Michele Arteaga on 03-23-2023 Eosinophils (Bld) [#/Vol] 0.1 10*3/uL 0.0-0.45 [facility] Eosinophils/100 WBC Auto (Bl d)Ordered By: Michele Arteaga on 03-23-2023 Eosinophils/100 WBC (Bld) 1.3 % . [facility] Erythrocyte distribution wid th Auto (RBC) [Ratio]Ordered By: Michele Arteaga on 03-23-2023 Erythrocyte distribution width (RBC) [Ratio] 14.8 % 12.0-14.8 [facility] Erythrocyte sedimentation ra te by Photometric methodOrdered By: Michele Arteaga on 03-23-2023 ESR Photometric method (d) [Velocity] 21 mm/hr 0-19 [facility] Globulin Calc (S) [Mass/Vol] Ordered By: Michele Arteaga on 03-23-2023 Globulin (S) [Mass/Vol] 1.8 g/dL [facility] Hematocrit Auto (Bld) [Volum e fraction]Ordered By: Michele Arteaga on 03-23-2023 Hematocrit (Bld) [Volume fraction] 30.1 % 38.8-50.0 [facility] Hemoglobin [Mass/volume] in BloodOrdered By: Michele Arteaga on 03-23-2023 Hemoglobin (Bld) [Mass/Vol] 10.3 g/dL 13.0-17.0 [facility] Leukocytes [#/volume] correc bert for nucleated erythrocytes in Blood by Automated counOrdered By: Michele Arteaga on 03-23-2023 WBC corrected for nucl RBC Auto (Bld) [#/Vol] 5.9 10*3/uL 4.1-10.5 [facility] Lymphocytes Auto (Bld) [#/Vo l]Ordered By: Michele Arteaga on 03-23-2023 Lymphocytes (Bld) [#/Vol] 0.7 10*3/uL 1.00-4.8 [facility] Lymphocytes/100 WBC Auto (Bl d)Ordered By: Michele Arteaga on 03-23-2023 Lymphocytes/100 WBC (Bld) 12.4 % . [facility] MCH Auto (RBC) [Entitic mass ]Ordered By: Michele Arteaga on 03-23-2023 MCH (RBC) [Entitic mass] 32.1 pg 27.5-35.2 [facility] MCHC Auto (RBC) [Mass/Vol]Or dered By: Michele Arteaga on 03-23-2023 MCHC (RBC) [Mass/Vol] 34.2 g/dL 32.5-35.6 [facility] MCV Auto (RBC) [Entitic vol] Ordered By: Michele Arteaga on 03-23-2023 MCV (RBC) [Entitic vol] 93.8 fL 83.5-101 [facility] Monocytes Auto (Bld) [#/Vol] Ordered By: Michele Arteaga on 03-23-2023 Monocytes (Bld) [#/Vol] 0.7 10*3/uL 0.0-0.8 [facility] Monocytes/100 WBC Auto (Bld) Ordered By: Michele Arteaga on 03-23-2023 Monocytes/100 WBC (Bld) 12.3 % . [facility] Neutrophils Auto (Bld) [#/Vo l]Ordered By: Michele Arteaga on 03-23-2023 Neutrophils (Bld) [#/Vol] 4.3 10*3/uL 1.8-7.7 [facility] Neutrophils/100 WBC Auto (Bl d)Ordered By: Michele Arteaga on 03-23-2023 Neutrophils/100 WBC (Bld) 73.2 % . [facility] No Panel InformationOrdered By: Michele Arteaga on 03-23-2023 Estimated GFR (CKD-EPI) > 60.0 mL/Min [facility] Creatinine Clearance (Chem N/A [facility] Nucleated erythrocytes [Pres ence] in Blood by Automated countOrdered By: Michele Arteaga on 03-23-2023 Nucleated RBC Auto Ql (Bld) 0.1 /100{WBC} 0-0.5 [facility] Platelet mean volume Auto (B ld) [Entitic vol]Ordered By: Michele Arteaga on 03-23-2023 Platelet mean volume (Bld) [Entitic vol] 8.2 fL 6.6-10.1 [facility] Platelets Auto (Bld) [#/Vol] Ordered By: Michele Arteaga on 03-23-2023 Platelets (Bld) [#/Vol] 162 10*3/uL 150-450 [facility] Protein [Mass/volume] in Ser um or PlasmaOrdered By: Michele Arteaga on 03-23-2023 Protein [Mass/Vol] 6.2 g/dL 6.4-8.[address] [facility] RBC Auto (Bld) [#/Vol]Ordere d By: Michele Arteaga on 03-23-2023 RBC (Bld) [#/Vol] 3.21 10*6/uL 3.90-5.60 [facility] Serum or plasma albumin/glob ulin mass ratioOrdered By: Michele Arteaga on 03-23-2023 Albumin/Globulin [Mass ratio] 2.4 {ratio} [facility] Serum or plasma non-glucuron idated bilirubin measurement (mass/volume)Ordered By: Michele Arteaga on 03-23-2023 Bilirubin.indirect [Mass/Vol] 0.5 mg/dL [facility] WBC Auto (Bld) [#/Vol]Ordere d By: Michele Arteaga on 03-23-2023 WBC (Bld) [#/Vol] 5.9 10*3/uL 4.1-10.[address] [facility] Covid-19 PCR (CVDTB)on 01-03 SARS-CoV-2 (COVID-19) RNA JOSEMANUEL+probe Ql (Unsp spec) Not detected Normal NOT DETECTED [facility] Comment on above: Result Comment: This test is not yet approved or cleared by the [place] FDA. When there are no FDA-approved or cleared tests available, and other criteria are met, FDA can make tests available under an emergency access mechanism called an Emergency Use Authorization (EUA). The EUA for this test is supported by the [place] of Health and Human Service's (HHS's) declaration [...] SARS-CoV-2. Performed By: #### C VDTB #### [facility] [address] [place] [id number] Robb Martin SYMPTOMATIC COVID-19 ANTIGEN on 01-22-2023 EUA Statement SEE BELOW Normal [facility] Comment on above: Result Comment: This [...] sooner. Performed By: #### C VDAGS #### [facility] [address] [place] [id number] Robb Martin SARS-CoV-2 (COVID-19) RNA JOSEMANUEL+probe Ql (Unsp spec) Negative Normal NEGATIVE [facility] Comment on above: Performed By: #### C VDAGS #### [facility] [address] [place] [id number] Robb Martin Albumin [Mass/volume] in Ser um or PlasmaOrdered By: Michele Arteaga on 11-19-2022 Albumin [Mass/Vol] 4.1 g/dL 3.2-5.[address] [facility] Basophils Auto (Bld) [#/Vol] Ordered By: Michele Arteaga on 11-19-2022 Basophils (Bld) [#/Vol] 0.1 10*3/uL 0.0-0.2 [facility] Basophils/100 WBC Auto (Bld) Ordered By: Michele Arteaga on 11-19-2022 Basophils/100 WBC (Bld) 1.0 % . [facility] Creatinine and Glomerular fi ltration rate.predicted panel (S/P/Bld)Ordered By: Michele Arteaga on 11-19-2022 Creatinine [Mass/Vol] 1.11 mg/dL 0.64-1.27 [facility] Direct bilirubin measurement Ordered By: Michele Arteaga on 11-19-2022 Bilirubin.direct [Mass/Vol] 0.2 mg/dL 0.0-0.4 [facility] Eosinophils Auto (Bld) [#/Vo l]Ordered By: Mcihele Arteaga on 11-19-2022 Eosinophils (Bld) [#/Vol] 0.1 10*3/uL 0.0-0.45 [facility] Eosinophils/100 WBC Auto (Bl d)Ordered By: Michele Arteaga on 11-19-2022 Eosinophils/100 WBC (Bld) 1.6 % . [facility] Erythrocyte distribution wid th Auto (RBC) [Ratio]Ordered By: Michele Arteaga on 11-19-2022 Erythrocyte distribution width (RBC) [Ratio] 14.1 % 12.0-14.8 [facility] Erythrocyte sedimentation ra te by Photometric methodOrdered By: Michele Arteaga on 11-19-2022 ESR Photometric method (Bld) [Velocity] 14 mm/hr 0-19 [facility] Estimated glomerular filtrat ion rate (GFR) non- AmericanOrdered By: Michele Arteaga on 11-19-2022 GFR/1.73 sq M.predicted among non-blacks MDRD (S/P/Bld) [Vol rate/Area] > 60 mL/Min [facility] Globulin Calc (S) [Mass/Vol] Ordered By: Michele Arteaga on 11-19-2022 Globulin (S) [Mass/Vol] 2.1 g/dL [facility] Hematocrit Auto (Bld) [Volum e fraction]Ordered By: Michele Arteaga on 11-19-2022 Hematocrit (Bld) [Volume fraction] 34.7 % 38.8-50.0 [facility] Hemoglobin [Mass/volume] in BloodOrdered By: Michele Arteaga on 11-19-2022 Hemoglobin (Bld) [Mass/Vol] 11.4 g/dL 13.0-17.0 [facility] Leukocytes [#/volume] correc bert for nucleated erythrocytes in Blood by Automated counOrdered By: Michele Arteaga on 11-19-2022 WBC corrected for nucl RBC Auto (Bld) [#/Vol] 4.8 10*3/uL 4.1-10.5 [facility] Lymphocytes Auto (Bld) [#/Vo l]Ordered By: Michele Arteaga on 11-19-2022 Lymphocytes (Bld) [#/Vol] 0.7 10*3/uL 1.00-4.8 [facility] Lymphocytes/100 WBC Auto (Bl d)Ordered By: Michele Arteaga on 11-19-2022 Lymphocytes/100 WBC (Bld) 15.2 % . [facility] MCH Auto (RBC) [Entitic mass ]Ordered By: Michele Arteaga on 11-19-2022 MCH (RBC) [Entitic mass] 30.8 pg 27.5-35.2 [facility] MCHC Auto (RBC) [Mass/Vol]Or dered By: Michele Arteaga on 11-19-2022 MCHC (RBC) [Mass/Vol] 32.7 g/dL 32.5-35.6 [facility] MCV Auto (RBC) [Entitic vol] Ordered By: Michele Arteaga on 11-19-2022 MCV (RBC) [Entitic vol] 94.2 fL 83.5-101 [facility] Monocytes Auto (Bld) [#/Vol] Ordered By: Michele Arteaga on 11-19-2022 Monocytes (Bld) [#/Vol] 0.6 10*3/uL 0.0-0.8 [facility] Monocytes/100 WBC Auto (Bld) Ordered By: Michele Arteaga on 11-19-2022 Monocytes/100 WBC (Bld) 11.5 % . [facility] Neutrophils Auto (Bld) [#/Vo l]Ordered By: Michele Arteaga on 11-19-2022 Neutrophils (Bld) [#/Vol] 3.4 10*3/uL 1.8-7.7 [facility] Neutrophils/100 WBC Auto (Bl d)Ordered By: Michele Arteaga on 11-19-2022 Neutrophils/100 WBC (Bld) 70.7 % . [facility] No Panel InformationOrdered By: Michele Arteaga on 11-19-2022 Estimated GFR () > 60 mL/Min [facility] Comment on above: GFR estimated refere nce range: According to KDOQI guidelines, <60 ml/min/1.73m2 is sufficient to diagnose a patient with chronic kidney disease. Pharmacy Creatinine Clearance (Chem N/A [facility] Nucleated erythrocytes [Pres ence] in Blood by Automated countOrdered By: Michele Arteaga on 11-19-2022 Nucleated RBC Auto Ql (Bld) 0.0 /100{WBC} 0-0.5 [facility] Platelet mean volume Auto (B ld) [Entitic vol]Ordered By: Michele Arteaga on 11-19-2022 Platelet mean volume (Bld) [Entitic vol] 9.3 fL 6.6-10.1 [facility] Platelets Auto (Bld) [#/Vol] Ordered By: Michele Arteaga on 11-19-2022 Platelets (Bld) [#/Vol] 122 10*3/uL 150-450 [facility] Protein [Mass/volume] in Ser um or PlasmaOrdered By: Michele Arteaga on 11-19-2022 Protein [Mass/Vol] 6.2 g/dL 6.1-7.[address] [facility] RBC Auto (Bld) [#/Vol]Ordere d By: Michele Arteaga on 11-19-2022 RBC (Bld) [#/Vol] 3.69 10*6/uL 3.90-5.60 [facility] Serum or plasma alanine ervin otransferase measurement without P-5'-P (enzymatic activiOrdered By: Michele Arteaga on 11-19-2022 ALT No additional P-5'-P [Catalytic activity/Vol] 33 U/L 10-60 [facility] Serum or plasma albumin/glob ulin mass ratioOrdered By: Michele Arteaga on 11-19-2022 Albumin/Globulin [Mass ratio] 2.0 {ratio} [facility] Serum or plasma alkaline daniel sphatase measurement (enzymatic activity/volume)Ordered By: Michele Arteaga on 11-19-2022 ALP [Catalytic activity/Vol] 78 U/L 32-92 [facility] Serum or plasma aspartate am inotransferase measurement (enzymatic activity/volume)Ordered By: Michele Arteaga on 11-19-2022 AST [Catalytic activity/Vol] 26 U/L 10-42 [facility] Serum or plasma non-glucuron idated bilirubin measurement (mass/volume)Ordered By: Michele Arteaga on 11-19-2022 Bilirubin.indirect [Mass/Vol] 0.4 mg/dL [facility] Serum or plasma total biliru bin measurement (mass/volume)Ordered By: Michele Arteaga on 11-19-2022 Bilirubin [Mass/Vol] 0.6 mg/dL 0.3-1.2 [facility] WBC Auto (Bld) [#/Vol]Ordere d By: Michele Arteaga on 11-19-2022 WBC (Bld) [#/Vol] 4.8 10*3/uL 4.1-10.[address] [facility] CBC AUTO DIFFon 11-05-2022 BASO # 0.0 103/ul Normal 0.0-0.1 [facility] Comment on above: Performed By: #### C BC #### [facility] [address] [place] [address] Dr. Robb Martin Basophils/100 WBC (Bld) 0.7 % Normal 0.2-2.0 [facility] Comment on above: Performed By: #### C BC #### [facility] [address] [address] [address] Robb Martin EO # 0.1 103/ul Normal 0.0-0.7 [facility] Comment on above: Performed By: #### C BC #### [facility] [address] [address] [address] Robb Martin Eosinophils/100 WBC (Bld) 1.9 % Normal 0.9-7.0 [facility] Comment on above: Performed By: #### C BC #### [facility] [address] [place] [address] Dr. Robb Martin Erythrocyte distribution width (RBC) [Ratio] 13.4 % Normal 11.0-15.0 [facility] Comment on above: Performed By: #### C BC #### [facility] [address] [place] [address] Dr. Robb Martin Hematocrit (Bld) [Volume fraction] 33.3 % Critically low 42.0-54.0 [facility] Comment on above: Performed By: #### C BC #### [facility] [address] [place] [address] Dr. Robb Martin Hemoglobin (Bld) [Mass/Vol] 11.1 g/dL Critically low 14.0-18.0 [facility] Comment on above: Performed By: #### C BC #### [facility] [address] [place] [address] Dr. Robb Martin IG # 0.01 10e3/ul Normal 0.00-0.03 [facility] Comment on above: Performed By: #### C BC #### [facility] [address] [place] [address] Dr. Robb Martin IG % 0.2 % Normal 0.0-0.5 [facility] Comment on above: Performed By: #### C BC #### [facility] [address] [place] [address] Dr. Robb Martin LYMPH # 0.8 103/ul Critically low 1.2-3.8 [facility] Comment on above: Performed By: #### C BC #### [facility] [address] [place] [address] Dr. Robb Martin Lymphocytes/100 WBC (Bld) 17.6 % Critically low 20.5-60.0 [facility] Comment on above: Performed By: #### C BC #### [facility] [address] [place] [address] Dr. Robb Martin MANUAL DIFF REQ NO Normal [facility] Comment on above: Performed By: #### C BC #### [facility] [address] [address] [address] Robb Martin MCH (RBC) [Entitic mass] 30.4 pg Normal 25.9-34.0 [facility] Comment on above: Performed By: #### C BC #### [facility] [address] [address] [address] Robb Martin MCHC (RBC) [Mass/Vol] 33.3 g/dL Normal 29.9-35.2 [facility] Comment on above: Performed By: #### C BC #### [facility] [address] [place] [address] Dr. Robb Martin MCV (RBC) [Entitic vol] 91.2 fL Normal 80.0-94.0 [facility] Comment on above: Performed By: #### C BC #### [facility] [address] [place] [address] Dr. Robb Martin MONO # 0.6 103/ul Normal 0.3-0.8 [facility] Comment on above: Performed By: #### C BC #### [facility] [address] [place] [address] Dr. Robb Martin Monocytes/100 WBC (Bld) 13.9 % Critically high 1.7-12. 0 [facility] Comment on above: Performed By: #### C BC #### [facility] [address] [place] [address] Dr. Robb Martin NEUT # 2.8 103/ul Normal 1.4-6.5 [facility] Comment on above: Performed By: #### C BC #### [facility] [address] [place] [address] Dr. Robb Martin Neutrophils/100 WBC (Bld) 65.7 % Normal 43.0-75.0 [facility] Comment on above: Performed By: #### C BC #### [facility] [address] [place] [address] Dr. Robb Martin Platelet mean volume (Bld) [Entitic vol] 10.3 fL Normal 9.5-13.5 [facility] Comment on above: Performed By: #### C BC #### [facility] [address] [place], [place] [address] Dr. Robb Martin PLT 141 103/ul Critically low 150-450 [facility] Comment on above: Performed By: #### C BC #### [facility] [address] [place], [place] [address] Dr. Robb Martin RBC 3.65 106/ul Critically low 4.70-6.10 [facility] Comment on above: Performed By: #### C BC #### [facility] [address] [place] [address] [address] Robb Martin WBC 4.3 103/ul Normal 4.0-11.0 [facility] Comment on above: Performed By: #### C BC #### [facility] [address] [place] [address] [address] Robb Martin PROF CHEM 8 (BAS METB)on Anion gap [Moles/Vol] 11.3 mmol/L Normal [facility] Comment on above: Performed By: #### B MP ####[facility] [address] [place] [id number] Martin Calcium [Mass/Vol] 9.2 mg/dL Normal 8.5-10.1 [facility] Comment on above: Performed By: #### B MP ####[facility] [address] [place] [id number] Martin Chloride [Moles/Vol] 105 mmol/L Normal 98-107 [facility] Comment on above: Performed By: #### B MP ####[facility] [address] [place], [place] [address]YtSantos Martin CO2 [Moles/Vol] 30.7 mmol/L Normal 21.0-32.0 [facility] Comment on above: Performed By: #### B MP ####[facility] [address] [place], [place] [address]ZfSantos Martin Creatinine [Mass/Vol] 1.01 mg/dL Normal 0.70-1.30 [facility] Comment on above: Performed By: #### B MP ####[facility] [address] [place] [address]Dr. Robb Martin EGFR-AF NIUEAN >60 Normal >=60 [facility] Comment on above: Performed By: #### B MP ####[facility] [address] [place] [address]Dr. Robb Martin EGFR-NON AF NIUEAN >60 Normal >=60 [facility] Comment on above: Performed By: #### B MP ####[facility] [address] [place] [address]Dr. Candyelaina Mario Glucose [Mass/Vol] 103 mg/dL Normal 74-106 [facility] Comment on above: Performed By: #### B MP ####[facility] [address] [place], [place] [address]Dr. Robb Martin Potassium [Moles/Vol] 4.0 mmol/L Normal 3.5-5.1 [facility] Comment on above: Performed By: #### B MP ####[facility] [address] [place], [place] [address]Dr. Candyelaina Mario Sodium [Moles/Vol] 143 mmol/L Normal 136-145 [facility] Comment on above: Performed By: #### B MP ####[facility] [address] [place], [place] [address]Dr. Robb Martin Urea nitrogen [Mass/Vol] 17.0 mg/dL Normal 7.0-18.0 [facility] Comment on above: Performed By: #### B MP ####[facility] [address] [place], [place] [address]Dr. Robb Martin Urea nitrogen/Creatinine [Mass ratio] 16.8 mg/mg Normal [facility] Comment on above: Performed By: #### B MP ####[facility] [address] [place], [place] [address]Dr. Candyelaina Mario CBC AUTO DIFFon 09-29-2022 BASO # 0.0 103/ul Normal 0.0-0.1 [facility] Comment on above: Performed By: #### C BC #### [facility] [address] [place] [address] [address] Robb Martin Basophils/100 WBC (Bld) 0.6 % Normal 0.2-2.0 [facility] Comment on above: Performed By: #### C BC #### [facility] [address] [place] [address] Dr. Robb Martin EO # 0.1 103/ul Normal 0.0-0.7 [facility] Comment on above: Performed By: #### C BC #### [facility] [address] [place] [address] Dr. Robb Martin Eosinophils/100 WBC (Bld) 1.4 % Normal 0.9-7.0 [facility] Comment on above: Performed By: #### C BC #### [facility] [address] [place] [address] Dr. Robb Martin Erythrocyte distribution width (RBC) [Ratio] 13.9 % Normal 11.0-15.0 [facility] Comment on above: Performed By: #### C BC #### [facility] [address] [place] [address] Dr. Robb Martin Hematocrit (Bld) [Volume fraction] 35.4 % Critically low 42.0-54.0 [facility] Comment on above: Performed By: #### C BC #### [facility] [address] [place] [address] Dr. Robb Martin Hemoglobin (Bld) [Mass/Vol] 11.3 g/dL Critically low 14.0-18.0 [facility] Comment on above: Performed By: #### C BC #### [facility] [address] [place] [address] Dr. Robb Martin IG # 0.01 10e3/ul Normal 0.00-0.03 [facility] Comment on above: Performed By: #### C BC #### [facility] [address] [place] [address] Dr. Robb Martin IG % 0.2 % Normal 0.0-0.5 [facility] Comment on above: Performed By: #### C BC #### [facility] [address] [place] [address] [address] Robb Martin LYMPH # 0.7 103/ul Critically low 1.2-3.8 [facility] Comment on above: Performed By: #### C BC #### [facility] [address] [place] [address] Dr. Robb Martin Lymphocytes/100 WBC (Bld) 14.4 % Critically low 20.5-60.0 [facility] Comment on above: Performed By: #### C BC #### [facility] [address] [place] [address] Dr. Robb Martin MANUAL DIFF REQ NO Normal [facility] Comment on above: Performed By: #### C BC #### [facility] [address] [place] [address] Dr. Robb Martin MCH (RBC) [Entitic mass] 31.3 pg Normal 25.9-34.0 [facility] Comment on above: Performed By: #### C BC #### [facility] [address] [place] [address] Dr. Robb Martin MCHC (RBC) [Mass/Vol] 31.9 g/dL Normal 29.9-35.2 [facility] Comment on above: Performed By: #### C BC #### [facility] [address] [place] [address] Dr. Robb Martin MCV (RBC) [Entitic vol] 98.1 fL Critically high 80.0-94 .0 [facility] Comment on above: Performed By: #### C BC #### [facility] [address] [place] [address] Dr. Robb Martin MONO # 0.6 103/ul Normal 0.3-0.8 [facility] Comment on above: Performed By: #### C BC #### [facility] [address] [place] [address] Dr. Robb Martin Monocytes/100 WBC (Bld) 11.1 % Normal 1.7-12.0 [facility] Comment on above: Performed By: #### C BC #### [facility] [address] [place] [address] [address] Robb Martin NEUT # 3.7 103/ul Normal 1.4-6.5 [facility] Comment on above: Performed By: #### C BC #### [facility] [address] [place] [id number] Robb Martin Neutrophils/100 WBC (Bld) 72.3 % Normal 43.0-75.0 [facility] Comment on above: Performed By: #### C BC #### [facility] [address] [place] [address] [address] Robb Martin Platelet mean volume (Bld) [Entitic vol] 10.4 fL Normal 9.5-13.5 [facility] Comment on above: Performed By: #### C BC #### [facility] [address] [place] [address] Dr. Robb Martin PLT 122 103/ul Critically low 150-450 [facility] Comment on above: Performed By: #### C BC #### [facility] [address] [place] [address] [address] Robb Martin RBC 3.61 106/ul Critically low 4.70-6.10 [facility] Comment on above: Performed By: #### C BC #### [facility] [address] [place] [address] [address] Robb Martin WBC 5.2 103/ul Normal 4.0-11.0 [facility] Comment on above: Performed By: #### C BC #### [facility] [address] [place] [address] [address] Robb Martin PROF CHEM 8 (BAS METB)on Anion gap [Moles/Vol] 10.6 mmol/L Normal [facility] Comment on above: Performed By: #### B MP ####[facility] [address] [place] [address]Dr. Robb Martin Calcium [Mass/Vol] 9.3 mg/dL Normal 8.5-10.1 [facility] Comment on above: Performed By: #### B MP ####[facility] [address] [place] [address]Dr. Robb Martin Chloride [Moles/Vol] 103 mmol/L Normal 98-107 [facility] Comment on above: Performed By: #### B MP ####[facility] [address] [place] [address]Dr. Robb Martin CO2 [Moles/Vol] 30.2 mmol/L Normal 21.0-32.0 [facility] Comment on above: Performed By: #### B MP ####[facility] [address] [place] [address]Dr. Robb Martin Creatinine [Mass/Vol] 0.98 mg/dL Normal 0.70-1.30 [facility] Comment on above: Performed By: #### B MP ####[facility] [address] [place] [address]Dr. Robb Martin EGFR-AF NIUEAN >60 Normal >=60 [facility] Comment on above: Performed By: #### B MP ####[facility] [address] [place], [place] [address]Dr. Robb Martin EGFR-NON AF NIUEAN >60 Normal >=60 [facility] Comment on above: Performed By: #### B MP ####[facility] [address] [place], [place] [address]Dr. Robb Martin Glucose [Mass/Vol] 99 mg/dL Normal 74-106 [facility] Comment on above: Performed By: #### B MP ####[facility] [address] [place], [place] [address]Dr. Robb Martin Potassium [Moles/Vol] 3.8 mmol/L Normal 3.5-5.1 [facility] Comment on above: Performed By: #### B MP ####[facility] [address] [place], [place] [address]Dr. Candyelaina Martin Sodium [Moles/Vol] 140 mmol/L Normal 136-145 [facility] Comment on above: Performed By: #### B MP ####[facility] [address] [place], [place] [address]Dr. Robb Martin Urea nitrogen [Mass/Vol] 20.0 mg/dL Critically high 7.0-18.0 [facility] Comment on above: Performed By: #### B MP ####[facility] [address] [place], [place] [address]Ah. Robb Martin Urea nitrogen/Creatinine [Mass ratio] 20.4 mg/mg Normal [facility] Comment on above: Performed By: #### B MP ####[facility] [address] [place], [place] [address]Vn. Robb Maritn Basophils Auto (Bld) [#/Vol] Ordered By: Michele Arteaga on 07-20-2022 Basophils (Bld) [#/Vol] 0.0 10*3/uL 0.0-0.2 [facility] Basophils/100 WBC Auto (Bld) Ordered By: Michele Arteaga on 07-20-2022 Basophils/100 WBC (Bld) 0.8 % . F [facility] Body fluid albumin measureme nt (mass/volume)Ordered By: Michele Arteaga on 07-20-2022 Albumin (Body fld) [Mass/Vol] 3.8 g/dL 3.2-5.5 [facility] Creatinine and Glomerular fi ltration rate.predicted panel (S/P/Bld)Ordered By: Michele Arteaga on 07-20-2022 Creatinine [Mass/Vol] 1.00 mg/dL 0.64-1.27 [facility] Direct bilirubin measurement Ordered By: Michele Arteaga on 07-20-2022 Bilirubin.direct [Mass/Vol] 0.2 mg/dL 0.0-0.4 [facility] Eosinophils Auto (Bld) [#/Vo l]Ordered By: Michele Arteaga on 07-20-2022 Eosinophils (Bld) [#/Vol] 0.0 10*3/uL 0.0-0.45 [facility] Eosinophils/100 WBC Auto (Bl d)Ordered By: Michele Arteaga on 07-20-2022 Eosinophils/100 WBC (Bld) 1.0 % . [facility] Erythrocyte distribution wid th Auto (RBC) [Ratio]Ordered By: Michele Arteaga on 07-20-2022 Erythrocyte distribution width (RBC) [Ratio] 14.7 % 12.0-14.8 [facility] Erythrocyte sedimentation ra te by Photometric methodOrdered By: Michele Arteaga on 07-20-2022 ESR Photometric method (Bld) [Velocity] 13 mm/hr 0-19 [facility] Estimated glomerular filtrat ion rate (GFR) non- AmericanOrdered By: Michele Arteaga on 07-20-2022 GFR/1.73 sq M.predicted among non-blacks MDRD (S/P/Bld) [Vol rate/Area] > 60 mL/Min [facility] Globulin Calc (S) [Mass/Vol] Ordered By: Michele Arteaga on 07-20-2022 Globulin (S) [Mass/Vol] 2.1 g/dL [facility] Hematocrit Auto (Bld) [Volum e fraction]Ordered By: Michele Arteaga on 07-20-2022 Hematocrit (Bld) [Volume fraction] 32.4 % 38.8-50.0 [facility] Hemoglobin [Mass/volume] in BloodOrdered By: Michele Arteaga on 07-20-2022 Hemoglobin (Bld) [Mass/Vol] 10.8 g/dL 13.0-17.0 [facility] Laboratory - Hematology and Cell countsOrdered By: Michele Arteaga on 07-20-2022 Nucleated RBC/100 WBC (Bld) [Ratio] 0.0 % 0-0.5 [facility] Leukocytes [#/volume] in Blo od by Automated countOrdered By: Michele Arteaga on 07-20-2022 WBC (Bld) [#/Vol] 4.6 10*3/uL 4.5-11.[address] [facility] Lymphocytes Auto (Bld) [#/Vo l]Ordered By: Michele Arteaga on 07-20-2022 Lymphocytes (Bld) [#/Vol] 0.6 10*3/uL 1.00-4.8 [facility] Lymphocytes/100 WBC Auto (Bl d)Ordered By: Michele Arteaga on 07-20-2022 Lymphocytes/100 WBC (Bld) 13.8 % . [facility] MCH Auto (RBC) [Entitic mass ]Ordered By: Michele Arteaga on 07-20-2022 MCH (RBC) [Entitic mass] 31.8 pg 27.5-35.2 [facility] MCHC Auto (RBC) [Mass/Vol]Or dered By: Michele Arteaga on 07-20-2022 MCHC (RBC) [Mass/Vol] 33.2 g/dL 32.5-35.6 [facility] MCV Auto (RBC) [Entitic vol] Ordered By: Michele Arteaga on 07-20-2022 MCV (RBC) [Entitic vol] 95.8 fL 83.5-101 F [facility] Monocytes Auto (Bld) [#/Vol] Ordered By: Michele Arteaga on 07-20-2022 Monocytes (Bld) [#/Vol] 0.4 10*3/uL 0.0-0.8 [facility] Monocytes/100 WBC Auto (Bld) Ordered By: Michele Arteaga on 07-20-2022 Monocytes/100 WBC (Bld) 9.1 % . F [facility] Neutrophils Auto (Bld) [#/Vo l]Ordered By: Michele Arteaga on 07-20-2022 Neutrophils (Bld) [#/Vol] 3.5 10*3/uL 1.8-7.7 [facility] Neutrophils/100 WBC Auto (Bl d)Ordered By: Michele Arteaga on 07-20-2022 Neutrophils/100 WBC (Bld) 75.3 % . [facility] No Panel InformationOrdered By: Michele Arteaga on 07-20-2022 Estimated GFR () > 60 mL/Min [facility] Comment on above: GFR estimated refere nce range: According to KDOQI guidelines, <60 ml/min/1.73m2 is sufficient to diagnose a patient with chronic kidney disease. Pharmacy Creatinine Clearance (Chem N/A [facility] Platelet mean volume Auto (B ld) [Entitic vol]Ordered By: Michele Arteaga on 07-20-2022 Platelet mean volume (Bld) [Entitic vol] 8.7 fL 6.6-10.1 [facility] Platelets Auto (Bld) [#/Vol] Ordered By: Michele Arteaga on 07-20-2022 Platelets (Bld) [#/Vol] 140 10*3/uL 150-450 [facility] Protein [Mass/volume] in Ser um or PlasmaOrdered By: Michele Arteaga on 07-20-2022 Protein [Mass/Vol] 5.9 g/dL 6.1-7.[address] [facility] RBC Auto (Bld) [#/Vol]Ordere d By: Michele Arteaga on 07-20-2022 RBC (Bld) [#/Vol] 3.39 10*6/uL 3.90-5.60 [facility] Serum or plasma alanine ervin otransferase measurement without P-5'-P (enzymatic activiOrdered By: Michele Arteaga on 07-20-2022 ALT No additional P-5'-P [Catalytic activity/Vol] 29 U/L 10-60 [facility] Serum or plasma albumin/glob ulin mass ratioOrdered By: Michele Arteaga on 07-20-2022 Albumin/Globulin [Mass ratio] 1.8 {ratio} [facility] Serum or plasma alkaline daniel sphatase measurement (enzymatic activity/volume)Ordered By: Michele Arteaga on 07-20-2022 ALP [Catalytic activity/Vol] 68 U/L 32-92 [facility] Serum or plasma aspartate am inotransferase measurement (enzymatic activity/volume)Ordered By: Michele Arteaga on 07-20-2022 AST [Catalytic activity/Vol] 24 U/L 10-42 [facility] Serum or plasma non-glucuron idated bilirubin measurement (mass/volume)Ordered By: Michele Arteaga on 07-20-2022 Bilirubin.indirect [Mass/Vol] 0.7 mg/dL [facility] Serum or plasma total biliru bin measurement (mass/volume)Ordered By: Michele Arteaga on 07-20-2022 Bilirubin [Mass/Vol] 0.9 mg/dL 0.3-1.2 [facility] [place] ECHOCARDIO M/2D COMPLETEon 0 04-20-2022 ECHOCARDIO M/2D COMPLETE Patient: NELLY HANNONSantos Exam Date: 04/20/2022 : 1935 Gender:M Ordering : FILIPPO JUDGE Admission #: [id number] Family : STEVE DE PAZ D.O. Order #: [id number] CLICK HERE TO VIEW EXAM ECHOCARDIOGRAM REPORT [...] Kate M.D. on 04/20/2022 at 17:06 Normal [facility] XR clavicle RT*on 11-03-2021 XR clavicle RT* [facility] [employer] Other XR clavicle RT* [facility] [employer] Other XR clavicle RT* [address] [facility] [employer] Other XR clavicle RT* [facility] [address] [address] [facility] [employer] Other XR clavicle RT* XRay Report [facility] [employer] Other XR clavicle RT* Signed [employer] Other XR clavicle RT* Patient: Nelly Hannon MR#: [id number] [place] [employer] Other XR clavicle RT* [address] [facility] [employer] Other XR clavicle RT* : 1935 Acct:[id number] [place] [employer] Other XR clavicle RT* Age/Sex: 86 / M ADM Date: 11/03/21 [place] [employer] Other XR clavicle RT* Loc: [facility] Room: Type : [facility] [employer] Other XR clavicle RT* Attending Dr: Vinh Lawton DO [place] [employer] Other XR clavicle RT* Ordering Provider: Vinh Lawton DO [place] [employer] Other XR clavicle RT* Date of Service: 11/03/21 [place] [employer] Other XR clavicle RT* XR/XR clavicle RT*: Displaced fracture of lateral end of right clavicle, [employer] Other XR clavicle RT* subsequ [employer] Other XR clavicle RT* Copies to: Vinh Lawton DO [employer] Other XR clavicle RT* 2 views RIGHT clavicle [place] [employer] Other XR clavicle RT* COMPARISON: 10/06/21 [employer] Other XR clavicle RT* HISTORY: Status post RIGHT clavicle fracture [employer] Other XR clavicle RT* There is redemonstration of the distal clavicle fracture. There is subtle callus formation [employer] Other XR clavicle RT* suggesting interval healing. Bony alignment is unchanged. [employer] Other XR clavicle RT* XR/XR clavicle RT* [employer] Other XR clavicle RT* IMPRESSION: Healing distal RIGHT clavicle fracture. Unchanged bony alignment. [employer] Other XR clavicle RT* Impression dictated by: Abdoul William M.D.11/03/2021 4:06 PM [employer] Other XR clavicle RT* Dictation Location: [place] [address] [employer] Other XR clavicle RT* Transcribed By: PWS 11/03/21 [facility] [employer] Other XR clavicle RT* Dictated By: Abdoul William DO 11/03/21 [facility] [employer] Other XR clavicle RT* Signed By: [facility] [employer] Other XR clavicle RT* 11/03/21 [facility] [employer] Other Cardiovascular Lab Reporton 08-25-[address] [facility] Patient Name: Parvez [facility] MR #: [id number] Physician: Filippo Judge MD Department of Service Date: 08/25/2021 Medicine Birthdate: 1935 Division of Room #: CCM Cardiology Adult Cardiovascular Services [place] [address] Cardiovascular Laboratory Report BIV-UPGRADE PROCEDURE NOTE DATE [...] occasions using seldinger technique using a 5 Bangladeshi micropunture needle. There was difficulty guiding the [...] to perform the LV lead placement. A [employer] sheath was advanced into the RV over [...] lead were then attached to a [employer] CLICKING MACHINE OPERATOR-D device and the leads tug tested. Pocket hemostasis was achieved, and it was then copiously and vigorously irrigated with antiobiotic so (more content not included)... Normal [facility] Vital Signs Date Time Vital Sign Value Performing Clinician Facility 11-20-2024 09:08-0500 Body height 177.8 cm Steve De Paz DO Work Phone: [facility] 11-20-2024 09:08-0500 Body mass index (BMI) [Ratio] 23.3 kg/m2 Steve Ball DO Work Phone: [facility] 11-20-2024 09:08-0500 Body weight 73.65 kg Steve Ball DO Work Phone: [facility] 11-20-2024 09:08-0500 Diastolic blood pressure 55 mm[Hg] Steve Ball DO Work Phone: [facility] 11-20-2024 09:08-0500 Heart rate 76 /min Steve Ball DO Work Phone: [facility] 11-20-2024 09:08-0500 Respiratory rate 12 /min Steve Ball DO Work Phone: [facility] 11-20-2024 09:08-0500 Systolic blood pressure 135 mm[Hg] Steve Ball DO Work Phone: [facility] 10-05-2024 14:52-0500 Body height 177.8 cm Steve Ball DO Work Phone: [facility] 10-05-2024 14:52-0500 Body mass index (BMI) [Ratio] 23.5 kg/m2 Steve Ball DO Work Phone: [facility] 10-05-2024 14:52-0500 Body temperature 97.8 [degF] Steve Ball DO Work Phone: [facility] 10-05-2024 14:52-0500 Body weight 74.38 kg Steve Ball DO Work Phone: [facility] 10-05-2024 14:52-0500 Diastolic blood pressure 73 mm[Hg] Steve Ball DO Work Phone: [facility] 10-05-2024 14:52-0500 Heart rate 66 /min Steve Ball DO Work Phone: [facility] 10-05-2024 14:52-0500 Respiratory rate 16 /min Steve Ball DO Work Phone: [facility] 10-05-2024 14:52-0500 SaO2% (BldA) [Mass fraction] 98 % Steve Ball DO Work Phone: [facility] 10-05-2024 14:52-0500 Systolic blood pressure 167 mm[Hg] Steve Ball DO Work Phone: [facility] 2024 15:15-0400 Body height 179.1 cm Elkin Holly MD Work Phone: [facility] 2024 15:15-0400 Body mass index (BMI) [Ratio] 23.45 kg/m2 Elkin Holly MD Work Phone: [facility] 2024 15:15-0400 Body weight 75.21 kg Elkin Holly MD Work Phone: [facility] 07-20-2024 09:20-0400 Body mass index (BMI) [Ratio] 23.4 kg/m2 DO Steve Ball Work Phone: [facility] 07-20-2024 09:20-0400 Diastolic blood pressure 89 mm[Hg] DO Steve Ball Work Phone: [facility] 07-20-2024 09:20-0400 Systolic blood pressure 139 mm[Hg] DO Steve Ball Work Phone: [facility] 07-20-2024 09:03-0400 Body height 177.8 cm DO Steve Ball Work Phone: [facility] 07-20-2024 09:03-0400 Body weight 74.16 kg DO Steve Ball Work Phone: [facility] 07-20-2024 09:03-0400 Heart rate 61 /min DO Steve Ball Work Phone: [facility] 07-20-2024 09:03-0400 Respiratory rate 12 /min DO Steve Ball Work Phone: [facility] 07-06-2024 14:02-0400 Body height 177.8 cm DO Steve Ball Work Phone: [facility] 07-06-2024 14:02-0400 Body mass index (BMI) [Ratio] 23.5 kg/m2 DO Steve Ball Work Phone: [facility] 07-06-2024 14:02-0400 Body temperature 97.5 [degF] DO Steve Ball Work Phone: [facility] 07-06-2024 14:02-0400 Body weight 74.38 kg DO Steve Ball Work Phone: [facility] 07-06-2024 14:02-0400 Diastolic blood pressure 65 mm[Hg] DO Steve Ball Work Phone: [facility] 07-06-2024 14:02-0400 Heart rate 59 /min DO Steve Ball Work Phone: [facility] 07-06-2024 14:02-0400 Respiratory rate 16 /min DO Steve Ball Work Phone: [facility] 07-06-2024 14:02-0400 SaO2% (BldA) [Mass fraction] 99 % DO Steve Ball Work Phone: [facility] 07-06-2024 14:02-0400 Systolic blood pressure 126 mm[Hg] DO Steve Ball Work Phone: [facility] 06-21-2024 10:21-0400 Body height 177.8 cm DO Steve Ball Work Phone: [facility] 06-21-2024 10:21-0400 Body mass index (BMI) [Ratio] 23.5 kg/m2 DO Steve Ball Work Phone: [facility] 06-21-2024 10:21-0400 Body temperature 97.9 [degF] DO Steve Ball Work Phone: [facility] 06-21-2024 10:21-0400 Body weight 74.38 kg DO Steve Ball Work Phone: [facility] 06-21-2024 10:21-0400 Diastolic blood pressure 65 mm[Hg] DO Steve Ball Work Phone: [facility] 06-21-2024 10:21-0400 Heart rate 60 /min DO Steve Ball Work Phone: [facility] 06-21-2024 10:21-0400 Respiratory rate 16 /min DO Steve Ball Work Phone: [facility] 06-21-2024 10:21-0400 SaO2% (BldA) [Mass fraction] 99 % DO Steve Ball Work Phone: [facility] 06-21-2024 10:21-0400 Systolic blood pressure 154 mm[Hg] DO Steve Ball Work Phone: [facility] 05-22-2024 08:37-0400 Blood Pressure Location Cristelabreanna WINTER [facility] 05-22-2024 08:37-0400 Body temperature 98.6 [degF] Cristelabreanna WINTER [facility] 05-22-2024 08:37-0400 Diastolic blood pressure 70 mm[Hg] Cristela WINTER [facility] 05-22-2024 08:37-0400 Heart rate 62 /min Cristela WINTER [facility] 05-22-2024 08:37-0400 Respiratory rate 16 /min Cristela WINTER [facility] 05-22-2024 08:37-0400 Systolic blood pressure 130 mm[Hg] Cristela WINTER [facility] 04-25-2024 09:24-0400 Body height 177.8 cm DO Steve Ball Work Phone: [facility] 04-25-2024 09:24-0400 Body mass index (BMI) [Ratio] 23.5 kg/m2 DO Steve Ball Work Phone: [facility] 04-25-2024 09:24-0400 Body weight 74.38 kg DO Steve Ball Work Phone: [facility] 04-25-2024 09:24-0400 Diastolic blood pressure 73 mm[Hg] DO Steve Ball Work Phone: [facility] 04-25-2024 09:24-0400 Heart rate 72 /min DO Steve Ball Work Phone: [facility] 04-25-2024 09:24-0400 Respiratory rate 12 /min DO Steve Ball Work Phone: [facility] 04-25-2024 09:24-0400 Systolic blood pressure 152 mm[Hg] DO Steve Ball Work Phone: [facility] 03-16-2024 11:22-0400 Body height 177.8 cm DO Steve Ball Work Phone: [facility] 03-16-2024 11:22-0400 Body mass index (BMI) [Ratio] 23.9 kg/m2 DO Steve Ball Work Phone: [facility] 03-16-2024 11:22-0400 Body temperature 97.2 [degF] DO Steve Ball Work Phone: [facility] 03-16-2024 11:22-0400 Body weight 75.74 kg DO Steve Ball Work Phone: [facility] 03-16-2024 11:22-0400 Diastolic blood pressure 70 mm[Hg] DO Steve Ball Work Phone: [facility] 03-16-2024 11:22-0400 Heart rate 98 /min DO Steve Ball Work Phone: [facility] 03-16-2024 11:22-0400 Respiratory rate 16 /min DO Steve Ball Work Phone: [facility] 03-16-2024 11:22-0400 SaO2% (BldA) [Mass fraction] 97 % DO Steve Ball Work Phone: [facility] 03-16-2024 11:22-0400 Systolic blood pressure 154 mm[Hg] DO Steve Ball Work Phone: [facility] 01-19-2024 08:29-0400 Body height 177.8 cm DO Steve Ball Work Phone: [facility] 01-19-2024 08:29-0400 Body mass index (BMI) [Ratio] 23.1 kg/m2 DO Steve Ball Work Phone: [facility] 01-19-2024 08:29-0400 Body weight 73.25 kg DO Steve Ball Work Phone: [facility] 01-19-2024 08:29-0400 Diastolic blood pressure 71 mm[Hg] DO Steve Ball Work Phone: [facility] 01-19-2024 08:29-0400 Heart rate 71 /min DO Steve Ball Work Phone: [facility] 01-19-2024 08:29-0400 Respiratory rate 12 /min DO Steve Ball Work Phone: [facility] 01-19-2024 08:29-0400 Systolic blood pressure 136 mm[Hg] DO Steve Ball Work Phone: [facility] 01-17-2024 15:05-0400 Body height 177.8 cm Elkin Holly MD Work Phone: [facility] 01-17-2024 15:05-0400 Body mass index (BMI) [Ratio] 22.93 kg/m2 Elkin Holly MD Work Phone: [facility] 01-17-2024 15:05-0400 Body temperature 97.7 [degF] Elkin Holly MD Work Phone: [facility] 01-17-2024 15:05-0400 Body weight 72.48 kg Elkin Holly MD Work Phone: [facility] 01-17-2024 15:05-0400 Diastolic blood pressure 69 mm[Hg] Elkin Holly MD Work Phone: [facility] 01-17-2024 15:05-0400 Systolic blood pressure 135 mm[Hg] Elkin Holly MD Work Phone: [facility] 12-17-2023 11:37-0400 Body temperature 97.2 [degF] DO Steve Ball Work Phone: [facility] 12-17-2023 11:37-0400 Body weight 78.47 kg DO Steve Ball Work Phone: [facility] 12-17-2023 11:37-0400 Diastolic blood pressure 69 mm[Hg] DO Steve Ball Work Phone: [facility] 12-17-2023 11:37-0400 Heart rate 66 /min DO Steve Ball Work Phone: [facility] 12-17-2023 11:37-0400 Respiratory rate 16 /min DO Steve Ball Work Phone: [facility] 12-17-2023 11:37-0400 SaO2% (BldA) [Mass fraction] 97 % DO Steve Ball Work Phone: [facility] 12-17-2023 11:37-0400 Systolic blood pressure 170 mm[Hg] DO Steve Ball Work Phone: [facility] 11-24-2023 08:24-0500 Body height 177.8 cm DO Steve Ball Work Phone: [facility] 11-24-2023 08:24-0500 Body mass index (BMI) [Ratio] 24.7 kg/m2 DO Steve Ball Work Phone: [facility] 11-24-2023 08:24-0500 Body temperature 97 [degF] DO Steve Ball Work Phone: [facility] 11-24-2023 08:24-0500 Body weight 78.01 kg DO Steve Ball Work Phone: [facility] 11-24-2023 08:24-0500 Diastolic blood pressure 56 mm[Hg] DO Steve Ball Work Phone: [facility] 11-24-2023 08:24-0500 Heart rate 60 /min DO Steve Ball Work Phone: [facility] 11-24-2023 08:24-0500 Respiratory rate 16 /min DO Steve Ball Work Phone: [facility] 11-24-2023 08:24-0500 SaO2% (BldA) [Mass fraction] 97 % DO Steve Ball Work Phone: [facility] 11-24-2023 08:24-0500 Systolic blood pressure 125 mm[Hg] DO Steve Ball Work Phone: [facility] 11-19-2023 10:43-0500 Body height 177.8 cm DO Steve Ball Work Phone: [facility] 11-19-2023 10:43-0500 Body weight 77.11 kg DO Steve Ball Work Phone: [facility] 11-08-2023 14:46-0500 Body height 177.8 cm Elkin Holly MD Work Phone: [facility] 11-08-2023 14:46-0500 Body mass index (BMI) [Ratio] 24.54 kg/m2 Elkin Holly MD Work Phone: [facility] 11-08-2023 14:46-0500 Body temperature 97.5 [degF] Elkin Holly MD Work Phone: [facility] 11-08-2023 14:46-0500 Body weight 77.56 kg Elkin Holly MD Work Phone: [facility] 11-08-2023 14:46-0500 Diastolic blood pressure 68 mm[Hg] Elkin Holly MD Work Phone: [phone])092-[address] [place] [address] 11-08-2023 14:46-0500 Systolic blood pressure 155 mm[Hg] Elkin Holly MD Work Phone: [facility] 10-28-2023 18:15-0500 Diastolic blood pressure 76 mm[Hg] Elkin Holly MD Work Phone: [facility] 10-28-2023 18:15-0500 Heart rate 60 /min Elkin Holly MD Work Phone: [facility] 10-28-2023 18:15-0500 Respiratory rate 12 /min Elkin Holly MD Work Phone: 3(222)[phone] [place] [address] 10-28-2023 18:15-0500 SaO2% (BldA) [Mass fraction] 100 % Elkin Holly MD Work Phone: [facility] 10-28-2023 18:15-0500 Systolic blood pressure 166 mm[Hg] Elkin Holly MD Work Phone: [facility] 10-28-2023 17:00-0500 Body temperature 96.8 [degF] Elkin Holly MD Work Phone: 0(283)[phone] [place] [address] 10-28-2023 12:33-0500 Body height 177.8 cm Elkin Holly MD Work Phone: [facility] 10-28-2023 12:33-0500 Body mass index (BMI) [Ratio] 24.39 kg/m2 Elkin Holly MD Work Phone: [facility] 10-28-2023 12:33-0500 Body weight 77.11 kg Elkin Holly MD Work Phone: [facility] 10-19-2023 10:00-0500 Body height 157.48 cm Steve De Paz Other [facility] 10-19-2023 10:00-0500 Body mass index (BMI) [Ratio] 31.09 kg/m2 Steve De Paz Other [facility] Other 10-19-2023 10:00-0500 Body weight 77.11 kg Steve Ball Other [facility] 10-19-2023 10:00-0500 Diastolic blood pressure 80 mm[Hg] Steve Ball Other [facility] 10-19-2023 10:00-0500 Respiratory rate 12 /min Steve Ball Other [facility] Other 10-19-2023 10:00-0500 Systolic blood pressure 138 mm[Hg] Steve Ball Other [facility] 10-08-2023 09:27-0500 Body height 179.1 cm Elkin Holly MD Work Phone: [facility] 10-08-2023 09:27-0500 Body mass index (BMI) [Ratio] 24.15 kg/m2 Elkin Holly MD Work Phone: [facility] 10-08-2023 09:27-0500 Body weight 77.43 kg Elkin Holly MD Work Phone: [facility] 07-05-2023 11:00-0400 Body height 157.48 cm Steve Ball Other [facility] Other 07-05-2023 11:00-0400 Body mass index (BMI) [Ratio] 30.5 kg/m2 Steve Ball Other [facility] Other 07-05-2023 11:00-0400 Body weight 75.66 kg Steve Ball Other [facility] Other 07-05-2023 11:00-0400 Diastolic blood pressure 68 mm[Hg] Steve Ball Other [facility] Other 07-05-2023 11:00-0400 Respiratory rate 12 /min Steve Ball Other [facility] Other 07-05-2023 11:00-0400 Systolic blood pressure 148 mm[Hg] Steve Ball Other [facility] Other 05-17-2023 08:48-0400 Blood Pressure Location Cristela WINTER [facility] 05-17-2023 08:48-0400 Diastolic blood pressure 69 mm[Hg] Cristela WINTER [facility] 05-17-2023 08:48-0400 Heart rate 65 /min Cristela WINTER [facility] 05-17-2023 08:48-0400 Respiratory rate 16 /min Cristela WINTER [facility] 05-17-2023 08:48-0400 Systolic blood pressure 106 mm[Hg] Cristela [facility]INTER [facility] 04-30-2023 11:30-0400 Body height 157.48 cm Steve Ball Other [facility] Other 04-30-2023 11:30-0400 Body mass index (BMI) [Ratio] 31.16 kg/m2 Steve Ball Other [facility] Other 04-30-2023 11:30-0400 Body weight 77.29 kg Steve Ball Other [facility] Other 04-30-2023 11:30-0400 Diastolic blood pressure 66 mm[Hg] Steve Ball Other [facility] Other 04-30-2023 11:30-0400 Respiratory rate 12 /min Steve Ball Other [facility] Other 04-30-2023 11:30-0400 Systolic blood pressure 132 mm[Hg] Steve Ball Other [facility] Other 01-06-2023 11:30-0400 Body height 157.48 cm Steve Ball Other [facility] Other 01-06-2023 11:30-0400 Body mass index (BMI) [Ratio] 31.46 kg/m2 Steve Ball Other [facility] Other 01-06-2023 11:30-0400 Body weight 78.02 kg Steve Ball Other [facility] Other 01-06-2023 11:30-0400 Diastolic blood pressure 73 mm[Hg] Steve Ball Other [facility] Other 01-06-2023 11:30-0400 SaO2% (BldA) [Mass fraction] 96 % Steve Ball Other [facility] Other 01-06-2023 11:30-0400 Systolic blood pressure 130 mm[Hg] Steve Ball Other [facility] Other 05-04-2022 12:33-0400 Blood Pressure Location Cristela WINTER [facility] 05-04-2022 12:33-0400 Diastolic blood pressure 69 mm[Hg] Cristela WINTER [facility] 05-04-2022 12:33-0400 Heart rate 68 /min Cristela WINTER [facility] 05-04-2022 12:33-0400 Respiratory rate 16 /min Cristela WINTER [facility] 05-04-2022 12:33-0400 Systolic blood pressure 134 mm[Hg] Cristela WINTER [facility] 11-03-2021 16:00-0500 Body height 157.48 cm Vinh Leighann Other [facility] Other 11-03-2021 16:00-0500 Body mass index (BMI) [Ratio] 25.79 kg/m2 Vinh Leighann Other [facility] Other 11-03-2021 16:00-0500 Body weight 63.96 kg Vinh Leighann Other [facility] Other Encounters Encounter Date Encounter Type Care Provider Facility Start: 05-18-2025 ambulatory Cristela Seo ty:[facility] Start: 11-30-2024 End: 11-30-2024 ambulatory KAYLEY [facility] Start: 11-24-2024 ambulatory FILIPPO [facility] Start: 11-20-2024 End: 11-20-2024 ambulatory Steve De Paz DO Work Phone: [facility] Work Phone: Start: 11-20-2024 End: 11-20-2024 Patient encounter procedure Steve De Paz DO Work Phone: [facility] Work Phone: Start: 10-31-2024 End: 10-31-2024 ambulatory FILIPPO [facility] Start: 10-30-2024 End: 10-30-2024 Patient encounter procedure Steve Ball DO Work Phone: [facility] [address] Work Phone: Start: 10-30-2024 End: 10-30-2024 ambulatory Steve Ball DO Work Phone: [facility] Work Phone: Start: 10-05-2024 Registered Recurring Steve Ball DO Work Phone: [facility] Work Phone: Start: 10-05-2024 End: 10-05-2024 ambulatory Steve Ball DO Work Phone: [facility] Work Phone: Start: 10-05-2024 End: 10-05-2024 Patient encounter procedure Steve Ball DO Work Phone: [facility] Work Phone: Start: 10-05-[address] [facility] Start: 10-02-2024 End: 10-02-2024 External Result Encounter Adilene Weinberg MD Work Phone: [facility] External Department Unsolicited Start: 10-02-2024 End: 10-02-2024 External Result Encounter Adilene Weinberg MD Work Phone: [facility] External Department Unsolicited Start: 10-02-2024 End: 10-02-2024 Patient encounter procedure Steve Ball DO Work Phone: [facility] [place] Work Phone: Start: 10-02-2024 End: 10-02-2024 ambulatory Adilene Weinberg Facility:[facility] Start: 09-29-[address] [facility] Start: 09-08-[address] [facility] Start: 09-07-[address] [facility] Start: 08-28-[address] [facility] Start: 08-22-[address] [facility] Start: 08-16-[address] [facility] Start: 08-09-2024 Non-patient / Non-visit Benjam in Ball DO Work Phone: [facility] Work Phone: Start: 08-08-2024 End: 08-08-2024 ambulatory DO Steve Ball Work Phone: [facility] Work Phone: Start: 08-08-2024 End: 08-08-2024 Patient encounter procedure DO Steve Ball Work Phone: 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 Start: 07-20-2024 End: 07-20-2024 ambulatory DO Steve Ball Work Phone: [facility] Work Phone: Start: 07-20-2024 End: 07-20-2024 Patient encounter procedure DO Steve Ball Work Phone: [facility] Work Phone: Start: 07-18-2024 Patient encounter procedure DO Steve Ball Work Phone: [facility] Start: 07-13-[address] [facility] Start: 07-06-2024 Registered Recurring DO Benjam in Ball Work Phone: [facility] Work Phone: Start: 07-06-2024 End: 07-06-2024 ambulatory DO Steve Ball Work Phone: [facility] Work Phone: Start: 07-06-2024 End: 07-06-2024 Patient encounter procedure DO Steve Ball Work Phone: [facility] Work Phone: Start: 07-04-2024 End: 07-04-2024 Patient encounter procedure DO Steve Ball Work Phone: [facility] [address] Work Phone: Start: 07-04-2024 End: 07-04-2024 ambulatory DO Steve Ball Work Phone: [facility] Work Phone: Start: 06-30-2024 End: 07-03-2024 External Result Encounter Adilene Weinberg MD Work Phone: [facility] External Department Unsolicited Start: 06-30-2024 End: 07-03-2024 External Result Encounter Adilene Weinberg MD Work Phone: [facility] External Department Unsolicited Start: 06-30-2024 Registered Recurring DO Benjam in Ball Work [facility] Work [facility]: Start: 06-21-2024 Registered Recurring DO Benjam in Ball Work Phone[facility] Work [facility]: Start: 06-21-2024 End: 06-21-2024 ambulatory DO Steve Ball Work Phone: [facility] Work Phone: Start: 06-21-2024 End: 06-21-2024 Patient encounter procedure DO Steve Ball Work Phone: [facility] Work Phone: Start: 06-12-2024 End: 06-12-2024 External Result Encounter Adilene Weinberg MD Work Phone: [facility] External Department Unsolicited Start: 06-12-2024 End: 06-12-2024 External Result Encounter Adilene Weinberg MD Work Phone: [facility] External Department Unsolicited Start: 06-07-2024 Non-patient / Non-visit DO Alexi shellshannan De Paz Work Phone: [facility] Work Phone: Start: 05-22-2024 End: 05-22-2024 ambulatory Cristela WINTER Facility:[facility] Start: 05-22-2024 End: 05-22-2024 Patient encounter procedure Cristela WINTER [facility] Start: 05-10-2024 Non-patient / Non-visit DO Alexi shellshannan De Paz Work Phone: [facility] Work Phone: Start: 05-02-2024 ambulatory MORE [facility] Start: 05-02-2024 End: 05-02-2024 ambulatory KAYLEY [facility] Start: 05-01-2024 End: 05-01-2024 Patient encounter procedure Caryl Ley MD Work Phone: Ophthalmology Comment on above: 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); Myogenic ptosis of bilateral eyelids Start: 04-25-2024 End: 04-25-2024 ambulatory DO Steve Ball Work Phone: [facility] Work Phone: Start: 04-25-2024 End: 04-25-2024 Patient encounter procedure DO Steve De Paz Work Phone: [facility] Work Phone: Start: 04-20-2024 End: 04-20-2024 ambulatory FILIPPO [facility] Start: 04-20-2024 Non-patient / Non-visit DO Alexi De Paz Work Phone: [facility] Work Phone: Start: 03-31-2024 ambulatory [facility] Start: 03-31-2024 Encounter for preprocedural cardiovascular examination [facility] Start: 03-16-2024 End: 03-16-2024 ambulatory DO Steve De Paz Work Phone: [facility] Work Phone: Start: 03-16-2024 End: 03-16-2024 Patient encounter procedure DO Steve De Paz Work Phone: [facility] Work Phone: Start: 03-16-2024 ambulatory [facility] Start: 03-16-2024 Registered Recurring DO Darin in Ball Work Phone[facility] [place] [facility] Work Phone: Start: 02-16-2024 End: 02-16-2024 ambulatory DEBBIE GORDON Not Available Start: 01-19-2024 End: 01-19-2024 ambulatory DO Steve De Paz Work Phone: [facility] Work Phone: Start: 01-19-2024 End: 01-19-2024 Patient encounter procedure DO Steve De Paz Work Phone: [facility] Work Phone: Start: 01-17-2024 End: 01-17-2024 Initial inpatient consult new/estab pt 55 min Debbie Bobby MD Work Phone: [facility] Comment on above: Brow ptosis, right ( Primary Dx); Dermatochalasis of right upper eyelid Start: 01-17-2024 End: 01-17-2024 Office outpatient visit 15 minutes Elkin Holly MD Work Phone: [facility] Comment on above: 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) Start: 01-17-2024 End: 01-17-2024 ambulatory DEBBIE [facility] Start: 12-27-2023 End: 12-27-2023 Patient encounter procedure DO Steve Ball Work Phone: [facility] [address] Work Phone: Start: 12-27-2023 End: 12-27-2023 ambulatory DO Steve Ball Work Phone: [facility] Work Phone: Start: 12-17-2023 End: 12-17-2023 ambulatory DO Steve Ball Work Phone: [facility] Work Phone: Start: 12-17-2023 End: 12-17-2023 Patient encounter procedure DO Steve Ball Work Phone: [facility] Work Phone: Start: 12-17-2023 Registered Recurring DO Benjam in Ball Work Phone[facility] [place] [facility] Work Phone: Start: 12-10-2023 End: 12-10-2023 Patient encounter procedure DO Steve Ball Work Phone: [facility] Work Phone: Start: 11-24-2023 Registered Recurring DO Benjam in Ball Work Phone[facility] [place] [facility] Work Phone: Start: 11-24-2023 End: 11-24-2023 ambulatory DO Steve Ball Work Phone: [facility] Work Phone: Start: 11-24-2023 End: 11-24-2023 Patient encounter procedure DO Steve Ball Work Phone: [facility] Work Phone: Start: 11-19-2023 End: 11-19-2023 Patient encounter procedure DO Steve De Paz Work Phone: [facility] Work Phone: Start: 11-19-2023 End: 11-19-2023 ambulatory DO Steve De Paz Work Phone: [facility] Work Phone: Start: 11-08-2023 End: 11-08-2023 Postop follow up visit related to original px Elkin Holly MD Work Phone: [facility] Comment on above: Malignant melanoma o f forehead (CMS/HCC) Start: 11-08-2023 End: 11-08-2023 ambulatory [facility] Start: 10-28-2023 End: 10-28-2023 Subsequent hospital visit by physician Elkin Holly MD Work Phone: [facility] Comment on above: 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); Post-op pain Start: 10-28-2023 End: 10-28-2023 ambulatory [facility] Start: 10-28-2023 End: 10-28-2023 Subsequent hospital visit by physician Shasha Nm 2 [facility] Comment on above: Malignant melanoma o f forehead (CMS/HCC) Start: 10-19-2023 End: 10-19-2023 ambulatory Steve De Paz Other [facility] Other Start: 10-19-2023 Encounter for other preprocedural examination Steve De Paz [facility] Start: 10-19-2023 Office outpatient vi sit 25 minutes Steve De Paz [facility] Start: 10-19-2023 End: 10-19-2023 Patient encounter procedure DO Steve Zandra Work Phone: [facility] Work Phone: Start: 10-08-2023 End: 10-08-2023 Office outpatient new 45 minutes Elkin Holly MD Work Phone: [facility] Comment on above: Malignant melanoma o f forehead (CMS/HCC) Start: 10-08-2023 End: 10-08-2023 ambulatory ELKIN HOLLY [facility] Start: 07-19-2023 End: 07-19-2023 ambulatory DO Steve De Paz Work Phone: [facility] Work Phone: Start: 07-19-2023 End: 07-19-2023 Patient encounter procedure DO Steve De Paz Work Phone: [facility] [address] Work Phone: Start: 07-13-2023 End: 07-13-[address] De Paz Other [facility] Other Start: 07-13-2023 Telephone encounter Steve De Paz [facility] Start: 07-05-2023 End: 07-05-2023 ambulatory Steve De Paz Other [facility] Other Start: 07-05-2023 Patient encounter procedure Steve De Paz [facility] Start: 05-31-2023 End: 05-31-2023 ambulatory Steve De Paz Other [facility] Other Start: 05-31-2023 Nursing evaluation o f patient and report Steve De Paz [facility] Start: 05-17-2023 End: 05-17-2023 Patient encounter procedure Cristela WINTER [facility] Start: 04-30-2023 End: 04-30-2023 ambulatory Steve De Paz Other [facility] Other Start: 04-30-2023 Office outpatient vi sit 15 minutes Steve De Paz [facility] Start: 03-30-2023 End: 03-30-2023 ambulatory DO Steve De Paz Work Phone: [facility] Work Phone: Start: 03-30-2023 End: 03-30-2023 Departed Referred DO Steve Ball Work Phone: [facility] [address] Work Phone: Start: 03-23-2023 End: 03-23-2023 ambulatory DO Steve Ball Work Phone: [facility] Work Phone: Start: 03-23-2023 End: 03-23-2023 Patient encounter procedure DO Steve Ball Work Phone: [facility] [address] Work Phone: Start: 02-01-2023 End: 03-03-2023 ambulatory SHAIKH Stephon LUO Facility:[facility] Start: 01-22-2023 Office outpatient vi sit 15 minutes Steve De Paz [facility] Start: 01-22-2023 End: 01-22-[address] STEVE DE PAZ [facility] Other Start: 01-21-2023 End: 01-21-2023 ambulatory Steve De Paz Other [facility] Other Start: 01-21-2023 Telephone encounter Steve De Paz [facility] Start: 01-06-2023 End: 01-06-2023 ambulatory Steve De Paz Other [facility] Other Start: 01-06-2023 Office outpatient vi sit 25 minutes Steve De Paz [facility] Start: 01-04-2023 End: 01-29-[address] STEVE DE PAZ Facility:[facility] Start: 12-28-2022 End: 12-28-2022 ambulatory Steve De Paz Other [facility] Other Start: 12-28-2022 Telephone encounter Steve De Paz [facility] Start: 12-02-2022 End: 01-01-[address] STEVE DE PAZ Facility:[facility] Start: 11-19-2022 End: 11-19-2022 ambulatory DO Steve De Paz Work Phone: [facility] Work Phone: Start: 11-19-2022 End: 11-19-2022 Patient encounter procedure DO Steve De Paz Work Phone: [facility] [address] Work Phone: Start: 11-05-2022 End: 11-06-2022 ambulatory FILIPPO JUDGE [facility] Other Start: 11-05-2022 Telephone encounter Steve De Paz [facility] Start: 11-04-2022 End: 12-02-[address] STEVE DE PAZ Facility:[facility] Start: 10-05-2022 End: 11-04-[address] STEVE DE PAZ Facility:[facility] Start: 10-02-2022 Encounter for preprocedural cardiovascular examination FILIPPO JUDGE [facility] Start: 09-29-2022 End: 09-30-2022 ambulatory FILIPPO JUDGE Facility:[facility] Start: 09-29-2022 End: 09-30-2022 Encounter for preprocedural cardiovascular examination FILIPPO JUDGE Facility:[facility] Start: 09-03-2022 End: 10-04-[address] STEVE DE PAZ Facility:[facility] Start: 08-05-2022 End: 08-06-[address] STEVE DE PAZ Facility:[facility] Start: 2022 End: 09-02-[address] STEVE DE PAZ Facility:[facility] Start: 07-20-2022 End: 07-20-2022 ambulatory DO Steve De Paz Work Phone: [facility] Work Phone: Start: 07-20-2022 End: 07-20-2022 Patient encounter procedure DO Steve De Paz Work Phone: [facility] [address] Start: 07-06-2022 End: 08-03-2022 ambulatory SHAIKH Stephon LUO Facility:[facility] Start: 06-04-2022 End: 07-04-2022 ambulatory SHAIKH Stephon LUO Facility:[facility] Start: 05-07-2022 End: 05-07-2022 ambulatory DEBBIE GORDON Facility:[facility] Start: 05-04-2022 End: 05-04-2022 Patient encounter procedure Cristela WINTER [facility] Start: 05-04-2022 End: 06-03-2022 ambulatory SHAIKH Stephon LUO Facility:[facility] Start: 04-20-2022 End: 04-21-2022 ambulatory FILIPPO JUDGE Facility:[facility] Start: 04-16-2022 Adult health examination Cezar De Paz Other [facility] Other Start: 04-16-2022 End: 04-16-2022 ambulatory DEBBIE GORDON Facility:[facility] Start: 04-07-2022 End: 04-08-[address] CRISTELA WINTER . Facility:[facility] Start: 04-03-2022 End: 05-01-2022 ambulatory SHAIKH Stephon LUO Facility:[facility] Start: 11-03-2021 End: 11-03-2021 ambulatory Vinh Lawton Other [facility] Other Start: 11-03-2021 Postop follow up vis it related to original px Vinh Lawton [facility] Start: 10-10-2021 End: 10-10-2021 ambulatory Vinh Leighann Other [facility] Other Start: 10-10-2021 FQHC visit new patient Vinh Lawton [facility] Start: 06-20-2021 End: 08-03-2021 ambulatory STEVE ZANDRA Facility:[facility] Start: 04-07-2019 Notes/Results Only Other Other NOTE S/RESULTS Start: 04-07-2019 End: 04-07-2019 Patient encounter procedure Other Other [facility] Start: 03-15-2019 Notes/Results Only Other Other NOTE S/RESULTS Start: 03-15-2019 End: 03-15-2019 Patient encounter procedure Other Other [facility] Start: 03-02-2019 Notes/Results Only Other Other NOTE S/RESULTS Start: 03-02-2019 End: 03-02-2019 Patient encounter procedure Other Other [facility] Start: 02-24-2019 Notes/Results Only Other Other NOTE S/RESULTS Start: 02-24-2019 End: 02-24-2019 Patient encounter procedure Other Other [facility] Start: 02-08-2019 Notes/Results Only Other Other NOTE S/RESULTS Start: 02-08-2019 End: 02-08-2019 Patient encounter procedure Other Other [facility] Start: 12-16-2018 Notes/Results Only Other Other NOTE S/RESULTS Start: 12-16-2018 End: 12-16-2018 Patient encounter procedure Other Other [facility] Start: 09-29-2018 Notes/Results Only Other Other NOTE S/RESULTS Start: 09-29-2018 End: 09-29-2018 Patient encounter procedure Other Other [facility] Procedures Date Procedure Procedure Detail Performing Clinician Start: 10-02-2024 Complete blood count with white cell differential, automated Adilene Weinberg MD Work Phone: Start: 10-02-2024 Comprehensive metabolic panel Adilene Weinberg MD Work Phone: Start: 10-02-2024 Ultrasonography of limb Steve Ball DO Work Phone: Start: 2024 Follow-up visit Follow-up ELKIN HOLLY Start: 06-30-2024 Positron emission to mography with computed tomography DO Steve Ball Work Phone: Start: 06-30-2024 GLUCOSE POCT GLUCOMETERS Adilene Weinberg MD Work Phone: Start: 06-12-2024 Complete blood count with white cell differential, automated Adilene Weinberg MD Work Phone: Start: 06-12-2024 Comprehensive metabolic panel Adilene Weinberg MD Work Phone: Start: 06-12-2024 Computed tomography of abdomen and pelvis with contrast DO Steve Ball Work Phone: Start: 06-12-2024 CT of head with contrast DO Steve Ball Work Phone: Start: 06-12-2024 CT of soft tissues o f neck with contrast DO [employer] Work Phone: Start: 06-12-2024 CT of thorax with contrast DO [employer] Work Phone: Start: 03-14-2024 Ultrasonography of limb DO [employer] Work Phone: Start: 11-29-2023 CT of head with contrast DO [employer] Work Phone: Start: 11-19-2023 Positron emission to mography with computed tomography DO [employer] Work Phone: Start: 10-28-2023 DERMPATH LAB- DERMATOPATHOLOGY ELKIN HOLLY Start: 10-28-2023 NM SPECT/CT LOCALIZA TION ADD ON SINGLE DAY ELKIN HOLLY Start: 10-28-2023 NM LYMPHOSCINTIGRAM RAMAN ON Start: 10-28-2023 DISCHARGE PATIENT ELKIN HOLLY Start: 10-28-2023 Lymphatics & lymph n odes imaging Elkin Holly MD Work Phone: Start: 04-07-[address] YEIMI WINTER . Comment on above: Performed By: #### P SAD #### [facility] [address] [place] [address] Dr. Robb Martin Start: 04-07-2019 Electrocardiogram Other Other Start: 04-07-2019 IMPLANT RECORD (OUTSIDE) Other Other Start: 03-15-2019 OUTSIDE PROCEDURES O[facility] Other Start: 03-02-2019 Echocardiography Other Other Start: 02-24-2019 OUTSIDE PROCEDURES Othe [facility] Other Start: 02-08-2019 Electrocardiogram Other Other Start: 12-16-2018 OUTSIDE PROCEDURES Othe r Other Start: 09-29-2018 ULTRASOUND (OUTSIDE) Ot her Other Start: 12-23-2015 Screening for malign ant neoplasm of colon [employer] Other Start: 08-27-2014 Cystoscopy Cristela ZUNIGA Start: [...] Start: 03-14-2027 Diabetes Screening Diabetes Screenin g [facility] Start: 07-24-2024 End: 07-24-2024 Patient encounter procedure 07/24/2024 3:30 PM EDT Office Visit [address] [place] [address] [place] [address] [address] Department [place] [address] [facility] Start: 06-04-2024 COVID-19 Vaccine ( season) COVID-19 Vaccine ( season) [facility] Start: 06-04-2024 Influenza vaccination Influenza Vacc ine (#1) [facility] Start: 01-17-2024 End: 01-17-2024 Patient encounter procedure 01/17/2024 3:30 PM EDT Office Visit [address] [place] [address] [place] [address] [address] Department of Otolaryngology [place], [place] [id number] [facility] Start: 11-08-2023 End: 11-08-2024 PT Unspecified body region NM PET CT melanoma restaging Imaging Routine Malignant melanoma of forehead (CMS/HCC) Expected: 11/08/2023, Expires: 11/08/2024 [facility] Service Area Work Phone: Comment on above: Expected: 11/08/2023 , Expires: 11/08/2024 Start: 10-28-2023 End: 10-28-2023 Admission to same day surgery center 10/28/2023 11:00 AM EST - 10/28/2023 2:35 PM EST [place] [facility] [place] [address] [place] [id number] [place] [address] [address] Department [place] [address] ( sln inj @ 7:00 am ) Excision Lesion Skin Head/Neck [76528 (CPT )] [facility] [place] Comment on above: ( sln inj @ 7:00 am ) Excision Lesion Skin Head/Neck [17068 (CPT )] Start: 10-28-2023 End: 10-28-2023 Ct [...] physician 10/28/2023 9:30 AM EST Hospital Encounter [facility] [place] [address] [place] [address] [place] [address] [address] Department [place] [address] [facility] [place] Start: 10-28-2023 End: 10-28-2023 Patient encounter procedure 10/28/2023 7:00 AM EST Appointment [facility] [address] [place] [address] [facility] Start: 10-08-2023 End: 10-08-2024 NM Lymphatic vessels Views W radionuclide intra lymphatic NM lymphoscintigram Imaging Routine Malignant melanoma of forehead (CMS/HCC) Expected: 10/08/2023, Expires: 10/08/2024 [facility] Work Phone: Comment on above: Expected: 10/08/2023 , Expires: 10/08/2024 Start: 10-08-2023 End: 10-08-2024 Request for Pre-Admission Testing Visit Request for Pre-Admission Testing Visit Procedures Routine Malignant melanoma of forehead (CMS/HCC) Expected: 10/08/2023 (Approximate), Expires: 10/08/2024 [facility] Service Area Work Phone: Comment on above: Expected: 10/08/2023 (Approximate), Expires: 10/08/2024 Start: 10-04-2023 Advance Directive Discussion Advance Directive Discussion [facility] Start: 06-04-2023 COVID-19 Vaccine ( season) COVID-19 Vaccine ( season) [facility] Start: 06-04-2023 Covid-19 Vaccine ( season) Covid-19 Vaccine ( season) [facility] Start: 06-04-2023 Influenza vaccination Influenza Vacc ine (#1) [facility] Start: 09-30-2022 COVID-19 Vaccine (5 - Moderna series) COVID-19 Vaccine (5 - Moderna series) [facility] Start: 07-20-2022 [facility] Start: 10-04-2019 Pneumococcal Vaccine : 65+ Years (2 - PPSV23 or PCV20) Pneumococcal Vaccine: 65+ Years (2 - PPSV23 or PCV20) [facility] Start: 10-04-2019 Pneumococcal Vaccine : 65+ Years (2 of 2 - PPSV23 or PCV20) Pneumococcal Vaccine: 65+ Years (2 of 2 - PPSV23 or PCV20) [facility] Start: 06-04-2019 Influenza vaccination INFLUENZA VACC INE (#1) [facility] Start: 06-17-2013 DTaP/Tdap/Td Vaccine s (1 - Tdap) DTaP/Tdap/Td Vaccines (1 - Tdap) [facility] Start: 06-17-2013 Urine microalbumin profile DTaP,Tdap,Td Vaccine (1 - Tdap) [facility] Start: 2012 RSV High Risk: (Elde rly (60+) or Population) (1 - 1-dose 75+ series) RSV High Risk: (Elderly (60+) or Population) (1 - 1-dose 75+ series) [facility] Start: 2002 Pneumococcal vaccination PNEUMOCOCCAL VACCINE SERIES (1 of 2 - PCV13) [facility] Start: 1997 RSV Vaccine (1 - 1-d ose 60+ series) RSV Vaccine (1 - 1-dose 60+ series) [facility] Start: 1987 Colonoscopy COLON CANCER S CREENING DISCUSSION [facility] Start: 1987 Zoster vaccine hzv l cathryn for subcutaneous use ZOSTER (SHINGLES) VACCINE (1 of 2) [facility] Start: 1987 Zoster Vaccines (1 o f 2) Zoster Vaccines (1 of 2) [facility] Start: 1959 DTaP/Tdap/Td Vaccine s (1 - Tdap) DTaP/Tdap/Td Vaccines (1 - Tdap) [facility] Start: 1956 Shingrix Vaccine (1 of 2) Shingrix Vaccine (1 of 2) [facility] Start: 1956 Third diphtheria, tetanus and acellular pertussis (DTaP) vaccination TDAP (ADULT) [facility] Start: 1955 Anxiety Screening Anxiety Screening [facility] Start: 1955 Depression Screening Depression Scre ening [facility] Start: 1955 Diabetes mellitus screening Diabetes Screening [facility] Start: 1955 Tetanus vaccination TETANUS [facility] Start: 02-01-1938 Examination of skin Derm Melanoma Sk in Check [facility] Start: 1937 Lipid panel Lipid Panel [facility] Start: 1937 Medicare Annual Wellness Visit Medicare Annual Wellness Visit (AWV) [facility] Comprehensive metabo lic 1999 panel - Serum or Plasma [facility] Comprehensive metabo lic 1999 panel - Serum or Plasma [facility] Comprehensive metabo lic 1999 panel - Serum or Plasma [facility] Comprehensive metabo lic 1999 panel - Serum or Plasma [facility] End: 10-28-2023 Continuous Pulse oximetry, In Phase 1 Continuous Pulse oximetry, In Phase 1 Respiratory Care Routine Continuous until discontinued starting 10/28/2023 [facility] Service Area Work Phone: Comment on above: Continuous until dis continued starting 10/28/2023 CT Abdomen and Pelvi s W contrast IV [facility] CT Abdomen and Pelvi s W contrast IV [facility] CT Chest W contrast IV [facility] CT Chest W contrast IV [facility] CT Head W contrast IV [facility] CT Head WO and W contrast IV [facility] CT Head WO and W contrast IV [facility] CT [facility] Neck W contrast IV [facility] Dermatopathology- DE RM LAB [facility] Service Area Work Phone: Comment on above: Release Upon Graciela denny for 1 Occurrences starting 10/28/2023 Xnssliz-3-Rlgwjmlvj dehydrogenase [Enzymatic activity/mass] in Red Blood Cells [facility] Work Phone: Measurement of total hemoglobin concentration [facility] Work Phone: MR Abdomen WO and W contrast IV [facility] End: 10-28-2023 NM Spect/CT Localization add on Single Day [facility] Service Area Work Phone: Comment on above: Once for 1 Occurrenc es starting 10/28/2023 until 10/28/[address] [facility] Immunizations Immunization Date Immunization Notes Care Provider Reji siu 07-20-2024 influenza, high dose seasonal, preservative-free DO Steve De Paz Work Phone: [facility] 08-12-2023 Prevnar 20 Steve De Paz Other [facility] 07-05-2023 influenza virus vaccine, unspecified formulation DO Steve De Paz Work Phone: [facility] 07-05-2023 influenza, high dose seasonal, preservative-free Steve De Paz Other [employer] Other 08-20-2022 influenza virus vaccine, split virus (incl. purified surface antigen) Steve De Paz Other [employer] Other 08-20-2022 influenza virus vaccine, unspecified formulation Elkin Holly MD Work Phone: [facility] 07-22-2021 influenza virus vaccine, split virus (incl. purified surface antigen) Steve De Paz Other [employer] Other 07-22-2021 influenza virus vaccine, unspecified formulation DO Steve De Paz Work Phone: [facility] 12-09-2020 SARS-CoV-2 (COVID-19 ) mRNA-1273 vaccine Cristela WINTER [facility] 07-09-2020 influenza virus vaccine, split virus (incl. purified surface antigen) Steve De Paz Other [employer] Other 07-09-2020 influenza virus vaccine, unspecified formulation DO [employer] Work Phone: [facility] 07-05-2019 influenza virus vaccine, split virus (incl. purified surface antigen) Steve De Paz Other [facility] Other 07-05-2019 influenza virus vaccine, unspecified formulation DO [employer] Work Phone: [facility] 06-30-2018 influenza virus vaccine, split virus (incl. purified surface antigen) Steve De Paz Other [facility] Other 06-30-2018 influenza virus vaccine, unspecified formulation DO [employer] Work Phone: [facility] 06-29-2017 influenza virus vaccine, split virus (incl. purified surface antigen) Steve De Paz Other [facility] Other 06-29-2017 influenza virus vaccine, unspecified formulation DO [employer] Work Phone: [facility] 06-22-2016 influenza virus vaccine, split virus (incl. purified surface antigen) Steve De Paz Other [facility] Other 06-22-2016 influenza virus vaccine, unspecified formulation DO [employer] Work Phone: [facility] 07-19-2015 pneumococcal conjuga te vaccine, 13 valent Steve De Paz Other [facility] 07-16-2015 influenza virus vaccine, split virus (incl. purified surface antigen) Steve De Paz Other [facility] Other 07-16-2015 influenza virus vaccine, unspecified formulation DO [employer] Work Phone: [facility] 06-16-2013 tetanus and diphther ia toxoids, adsorbed, preservative free, for adult use (5 Lf of tetanus toxoid and 2 Lf of diphtheria toxoid) Steve De Paz Other [facility] 04-06-2011 tetanus and diphther ia toxoids, adsorbed, preservative free, for adult use (5 Lf of tetanus toxoid and 2 Lf of diphtheria toxoid) Steve De Paz Other [facility] 04-03-2009 pneumococcal polysaccharide vaccine, 23 valent Steve De Paz Other [facility] Payers Date Payer Category Payer [facility] BCBS Memb er Subscriber Plan / Payer (Effective 2016-Present) Name: Nelly Hannon Relation to Subscriber: Self Name: Nelly Hannon Payer ID: Not on file Group ID: [id number] Type: Not on file Address: [place] [phone] 2016 [facility] [id number] 2016 Unknown [id number]. 1.13.647. [id number] 2002 Medicare [id number]. 1.13.647. [id number] 1959 Medicare [id number] 1959 Self-pay [id number] 1959 Unknown [id number] 1937 Unknown [id number] 2.16.840.1.060876.3.579. 2.647 1937 Unknown [id number] 2.16.840.1.183424.3.579. 2.593 1937 Unknown [id number] 2.16.840.1.605380.3.579. 2.593 1937 Unknown [id number] 2.16.840.1.640860.3.579. 2.593 1937 Unknown [id number] 2.16.840.1.369981.3.579. 2.593 1937 Unknown [id number] 2.16.840.1.721611.3.579. 2.593 1937 Unknown [id number] 2.16.840.1.873443.3.579. 2.593 1937 Unknown [id number] 2.16.840.1.484534.3.579. 2.593 1937 Unknown [id number] 2.16.840.1.342000.3.579. 2.593 1937 Unknown [id number] 2.16.840.1.233731.3.579. 2.593 1937 Unknown [id number] 2.16.840.1.845650.3.579. 2.593 1937 Unknown [id number] 2.16.840.1.157823.3.579. 2.593 1937 Unknown [id number] 2.16.840.1.253988.3.579. 2.593 1937 Unknown [id number] 2.16.840.1.064547.3.579. 2.593 1937 Unknown [id number] 2.16.840.1.331517.3.579. 2.593 1937 Unknown [id number] 2.16.840.1.497828.3.579. 2.593 1937 Unknown [id number] 2.16.840.1.225191.3.579. 2.593 1937 Unknown [id number] 2.16.840.1.580831.3.579. 2.593 1937 Unknown [id number] 2.16.840.1.940303.3.579. 2.593 1937 Unknown [id number] 2.16.840.1.071990.3.579. 2.1259 1937 Unknown [id number] 2.16.840.1.577876.3.579. 2.1243 1937 Unknown [id number] 2.16.840.1.241136.3.579. 2.1243 1937 Unknown [id number] 2.16.840.1.922925.3.579. 2.1243 1937 Unknown [id number] 2.16.840.1.924538.3.579. 2.1244 1937 Unknown [id number] 2.16.840.1.316465.3.579. 2.1244 1937 Unknown [id number] 2.16.840.1.740190.3.579. 2.1244 1937 Unknown [id number] 2.16.840.1.337862.3.579. 2.1244 1937 Unknown [id number] 2.16.840.1.614841.3.579. 2.1244 1937 Unknown [id number] 2.16.840.1.362043.3.579. 2.727 1937 Unknown [id number] 2.16.840.1.340657.3.579. 2.727 Unknown [id number] 2.16.840.1.517691.3.579. 2.593 Unknown [id number] 2.16.840.1.197623.3.579. 2.531 Unknown [id number] 2.16.840.1.618781.3.579. 2.531 Unknown [id number] 2.16.840.1.336834.3.579. 2.531 Unknown [id number] 2.16.840.1.653752.3.579. 2.531 Unknown [id number] 2.16.840.1.918065.3.579. 2.531 Unknown [id number] 2.16.840.1.031480.3.579. 2.531 Social History Date Type Detail Facility Tobacco smoking status NHIS Unknown if ever smoked [facility] Start: 1935 Sex Assigned At Not on file O [facility] Start: 10-08-2023 End: 02-16-2024 Sex Assigned At [facility] [employer] Other Start: 03-28-2020 End: 11-24-2023 Tobacco smoking status Never smoked tobacco (finding) [facility] Start: 1935 Sex Assigned At Male F [facility] Start: 10-08-2023 End: 05-01-2024 Tobacco use and exposure Smokeless tobacco non-user [facility] Work Phone: Start: 10-08-2023 End: 02-16-2024 History of Social function [facility] Work Phone: Start: 09-28-2023 End: 2024 Exposure to SARS-CoV-2 (event) Not sure [facility] Start: 10-28-2023 End: 08-05-2024 Alcohol intake Lifetime non-drinker (finding) [facility] Work Phone: National Score (1-100), lower number is lower risk [facility] Start: 10-05-2024 End: 11-20-2024 Sex Male (finding) [facility] Functional Status Date Assessment Result Facility 05-22-2024 Functional Status N/A [facility] 05-17-2023 Functional Status N/A [facility] 05-04-2022 Functional Status N/A [facility] Clinical Notes 10-10-2021 to 11-30-2024 Note Date & Type Note Facility 11-30-2024 Note Cardiovascular Medic ine [facility] SUBJECTIVE Chief Complaint Patient presents with Congestive Heart Failure Atrial Fibrillation Nelly Hannon is a 89 y.o. male here for follow-up. His daughter Tricia accompanied him. HPI PMHx: HFrEF/CMP, a.fib with RVR, aborted AVN ablation 11/2022 due to minimal a.fib burden 11/30/2024 He denies any changes since last seen. We had tried to increase his lasix to 40mg daily at his last visit, his renal function mildly elevated and we went back to 20mg daily. He notes his leg swelling had improved with the higher dose of lasix but returned when he went back to 20mg daily . Denies chest pain, SOB, palpitations, lightheadedness/syncope, and bleeding on warfarin. He has been feeling well since last [...] (CMS/HCC) Rectal bleeding Rheumatoid arthritis (CMS/HCC) Thrombocytopenia Cardiac resynchronization t (more content not included)... [facility] 11-30-2024 Note Patient here for 6 m o follow up PAF, CAD, CHF, and hypertension. His device was interrogated last month. Had echo back in May 2024 after last apt. Denies chest pain, SOB, palpitations, lightheadedness/syncope, and bleeding on warfarin. LE edema remains stable and unchanged. Review of Systems HENT: Positive for hearing loss. Cardiovascular: Positive for leg swelling (intermittent, wears compression stockings). Hematologic/Lymphatic: Bruises/bleeds easily. Musculoskeletal: Positive for arthritis and joint pain. All other systems reviewed and are negative. [facility] 10-05-2024 Evaluation note Diagnosis Onset Date Resolution Abnormal computerized axial tomography of liver acute October 05 2:50pm Cardiac pacemaker acute October 05, 2024 2:50pm Encounter for coordination of complex care acute Deyanira 2nd, 202 5 2:50pm History of prostate cancer acute October 05 2:50pm Melanoma of head acute October 05, 2024 2:50pm Rheumatoid arthritis acute 2024 2:50pm [facility] Work Phone: 1(129) 170-973701-02-2025 Evaluation note* Diagnosis Onset Date Resolution Status Admit Date Abnormal computerized axial tomography of liver acute October 05, 2024 2:50pm Cardiac pacemaker acute October 05, 2024 2:50pm Encounter for coordination o f complex care acute October 05 2:50pm History of prostate cancer acute October 05, 2024 2:50pm Melanoma of head acute October 05, 2024 2:50pm Rheumatoid arthritis acute 2024 2:50pm Allergic rhinitis acute y 2024 8:58am ASHD (arteriosclerotic heart disease) acute November 20, 8:58am Atrial fibrillation acute 2024 8:58am Dermatitis, dyshidrotic acute F ebruary 2024 8:58am History of prostate cancer acute November 20, 2024 8:58am HTN (hypertension) acute ry 2024 8:58am Hypercholesterolemia acute 2024 8:58am Hyperlipidemia acute November 042024 8:58am Ischemic cardiomyopathy acute F eb2024 8:58am Melanoma of head acute November 20, 2024 8:58am Rheumatoid arthritis acute 2024 8:58am [facility] Work Phone: 1(603) 976-905801-02-2025 [facility] [address] [facility] Note Signed Patient: Nelly Hannon MR#: [id number] : 1935 Acct:[id number] Age/Sex: 89 / M Type: DEP AMB Date of Service: 10/05/24 Copies to: Steve De Paz,DO~ Assessment & [...] results of his pathology and staging CT anddiscuss options for adjuvant therapy. He could be approached with observation alone given his advanc ed age and negative margins, however 2 positive lymph nodes would potentially increase risk of recurrence. The patient's daughter who lives in [place] will be available by phone consultationat the time of his follow-up. He does have capacity for decision-making. All questions were answered over this 60-minute initial consultation. 12/17/2023: Discussion of negative BRAF status and no evidence of INTEGRITY DIRECTOR disease on contrast head CT from 11/29/2023. Decision against adjuvant immunotherapy for 1 year due to his advanced age and concernwith toxicity given his known rheumatoid arthritis. Continue to follow with close surveillance including examevery 3 months with planned 3-month follow-up right cervical ultrasound and 6-month follow-up bidirectional CT chest abdomen pelvis to assess for distant recurrence. He may return sooner if signs or symptoms of recurrence to discuss every 2-week dosing of Nivolumab under close observation.The patient and his daughter are in agreement with this plan over this 35-minute follow-up of result s and surveillance plan. 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 He has no evidence of recurrence of disease by exam and hasscheduled dermatology follow-up in 2 weeks. Surveillance ultrasound of right neck shows no evidence of metastatic lymph nodes. Bidirectional imaging for restaging will be due in late May including head, neck, chest, abdomen, and pelvis. We will review results with him in early June with repeat CBC, CMP, and LDH. He may return sooner if concerning signs or symptoms of recurrence. Moderate complexity 35-minute follow-up. 06/21/2024: Mr. 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 No new or concerning symptoms and heremains ambulatory with normal diet. No evidence of recurrence on follow-up skin exams with Dr. Roque. Rheumatoid arthritis symptoms are stable on chronicimmunosuppression. His restaging 6-month CT head, neck, chest abdomen and pelvis shows no evidence of local recurrence of the scalp or cervical lymph nodes, no abnormalities of lungs or mediastinum, however there is a 7 mm focus of enhancement in the dome of the right hepatic lobe that is indeterminate for potential metastatic disease versus flash filling hemangioma or tumor of hepatocellular origin. Ideally we would obtain MRI of the liver for further evaluation, however the patient has a non-MRI compatible pacemaker, therefore wewill order PET/CT for surveillance. We will review these results in the next 2 to 3 weeks after studies completed. May consider following alpha-fetoprotein aswell if abnormality is noted on PET/CT. Otherwise we will continue surveillancewith neck ultrasound in September 2024 if no recurrence on PET/CT. Moderate complexity 35-minute follow-up. 07/06/2024: PET/CT was ordered due to 7 mm lesion on imaging that did not show any evidence of FDG avidity in the liver. No obvious signs of recurrence by exam. We discussed these findings with the patient and his daughter. Plan willbe to continue surveillance by exam and labs with cervical ultrasound in 3 months, then 6-month follow-up with repeat CT chest abdomen pelvis to compare the questionable 7 mm lesion. If he does have increasing LFTs or signs of recurrence we will repeat PET/CT. This is a moderate complexity 35-minute follow-up to review results. 10/05/2024: Patient has followed regularly with dermatology and does not have any new concerning skinlesions. No masses of the right parotid surgical bed or neck. Surveillance ultrasound shows no masses or adenopathy. He will follow-upin January 2025 for exam and bidirectional imaging with CT face, neck, chest abdomen and pelvis with the same labs. He may return sooner if new issues arise. This is a moderate complexity 35-minute follow-up to review exam and ultrasound. (2) Abnormal computerized axial tomography of liver: Plan: As noted above there is a 7 mm focus of enhancement in the dome of the right hepatic lobe noted on CT abdomen and pelvis from 06/12/2024. Will evaluate with PET/CT since MRI cannot be performed due to pacemaker. Follow-up results in 2 to 3 weeks. 07/06/2024: Follow-up PET/CT shows no FDG avidity. Defer next surveillance imaging for 6 months (January 2025) with CT face, neck, chest abdomen pelvis unless new symptoms arise. 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 No recent issues but cannot have MRI due to pacemaker in place. (4) Rheumatoid arthritis: Plan: Patient reports he has [...] every 2 weeks to assess his tolerance. (5) History of prostate cancer: Plan: Remote history of prostate cancer 2009 status post brachytherapy. Most recent PSA in May 2023 was undetectable. Nocturia about once each evening but no recent prostate symptoms. (6) Encounter for coordination of complex care: Plan: Decision for observation only made with patient and daughter at phone follow-up 12/17/2023. The patient's son-in-law was present with him at 06/21/2020 for follow-up, then daughter was with him 07/06/2020 for follow-up to assist with history. Discussion of symptoms and surveillance CT and subsequent PET/CT in lieu of MRI due to pacemaker in place. Okay for next surveillance imaging with CT with only. Orders: Orders CT chest w con 3 Months 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, Z01.89 - Encounter for other specified special examinations CT abdomen pelvis w con 3 Months 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, Z01.89 - Encounter for other specified special examinations LDH Lactate Dehydrogenase 3 Months 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 CT soft tissue neck w con 3 Months 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, Z01.89 - Encounterfor other specified special examinations CT head/brain wo/w con 3 Months 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, Z01.89 - Encounter for other specified special examinations Complete Blood Count Auto Diff 3 Months C43.4 - Malignant melanoma of scalp andneck Comprehensive Metabolic Panel 3 Months 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 Patient Instructions: Scans and labs as ordered Early January follow up after with Dr Weinberg. CHEMO PLAN No Active Chemotherapy History of Present Illness HPI 10/05/2024: Nelly is here with his daughter by telephone to review surveillance cervical ultrasound. He continues routine follow-up with dermatology and ENT with no new lesions from prior right parotid gland about one year ago. Stable xerostomia and no other new symptoms or concerning nodules. CBC, CMP, and LDH are unremarkable--hemoglobin relatively stable at 10.5 and platelets 191,000. Ultrasound of neck shows no worrisome masses or adenopathy. Next followup in early January with CT face, neck, chest, abdomen, and pelvis for bidirectional surveillance and continue followup with dermatology and ENT as directed. Moderate complexity 35 minute followup. 07/06/2024: Nelly presents with his daughter for 3-week follow-up to review PET/CTfor evaluation of the 7 mm enhancing lesion of the right hepatic lobe. MRI of liver could not be performed due to presence of pacemaker. No interval changes in symptoms since last visit 3 weeks ago. He still has healingareas from priorcryotherapy to dermatologic lesions. His PET/CT images and reports were reviewed showing negative PET/CT and no evidence of uptake in the liver. Since PET/CT did not show any obvious lesions, he will follow-up as previously scheduled in September 2024 with surveillance cervical ultrasound, CBC, CMP, LDH,and exam. He will return sooner if new issues arise. Moderate complexity 35-minute follow-up of PET/CT and discussion of continued observation. 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 Continues Arava and hydroxychloroquine therapy for rheumatoid arthritis without exacerbation recently. Has followup with Dr. Roque of dermatology at the end of this month--he states he was last seen by dermatology about 2 months ago and had somelesions burned off but no newconcerning melanoma dislocations. He has no worsening fatigue, no worsening of ptosis of his right upper eyelid (he is scheduled to follow-up with [facility] ophthalmology in May 2025 for possible procedure to fix this ptosis). No scalp pain at the area of his prior surgery. We reviewed his laboratory showing mild anemia but no abnormalities ofrenal or hepatic function. CT of the head shows age-related atrophy and chronicmicrovascular disease but no intracranial findings for evidence of local recurrence of the scalp. CT of the neck shows no malignant adenopathy or other concerning findings for metastatic disease. CT of the chest abdomen pelvis shows no abnormalities of the lung parenchyma or mediastinum or thyroid, howeverthere is a 7 mm focus of enhancement in the dome of the right hepatic lobe. Thepatient has a pacemaker in place and we will determine whether this can be evaluated by MRI with his pacemaker. Metastatic disease is considered although flash filling hemangioma or tumor of hepatocellular origin are also possibilities. If he is unable to have contrast-enhanced MRI, we may readdress her PET/CT although 7 mm lesion may be below the level of detection. We will contact the patient to coordinate MRI of the liver if possible and we will see him thereafter to review results. If MRI unremarkable I will see him in September with neck ultrasound for surveillance. Noother evidence of recurrenceon exam. The patient has capacity for decision making and his son-in-law was present to assist with memory of recommendations. Moderate complexity [id number]. 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 No change in his Arava and hydroxychloroquine therapy for rheumatoid arthritis and no recent clinical flar e. He denies any pain or any change of mild ptosis of the right eye. No change in postoperative numbness. No new skin lesions are seen and he has follow-up with Dr. Roque of dermatology in 2 weeks for full body skin exam. Nopalpable adenopathy or neck pain. Ultrasound of right neck reviewed from 03/14/2024 showing no abnormal adenopathy. Plan for routine follow-up with me in3 months after CT headneck chest abdomen and pelvis for bidirectional imaging restaging. He may return sooner if new issues arise. Moderate complexity 35-minute follow- up to review exam and restaging ultrasound. 12/17/2023: Nelly presents unaccompanied but his daughter is available by speaker phone to review theresults of his BRAF molecular testing. Of note his scalp lesion has healed well with no oozing fromsite and prior periorbital swelling has also improved. No complaints today. He was noted to have negative BRAF mutation and we discussed that immunotherapy may be more toxic given his known history of rheumatoid arthritis for the last 8 years on active therapy with Arava and hydroxychloroquine). [place] have 2 intraparotid lymph nodes that were positive with no extracapsular extension and his primary lesion was completely resected with negative margin. Given his comorbidities and advanced age, the patient and his daughter decided on observation only instead of a trialof immunotherapy adjuvanttreatment for his stage III melanoma. We will [...] results and options for adjuvant therapy versus ob servation. 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 He was referred to [facility] head neck oncologic surgery. On 10/28/2023 he [...] specimen and this will be requested from [facility]. Given his history of rheumatoid arthritis on Plaquenil and Areva, checkpoint inhibitor immunotherapy may be challenging and he may be at a higher risk of autoimmune complications. If the patient is BRAF positive we may discuss BRAF/MEK inhibitor therapy for 1 year of adjuvant therapy.The patient's daughter who accompanies him asked several questions regarding potential side effectswhich we will defer until his next follow-up when we know BRAF status. In addition we will review his head CT at that time. She lives in the [facility] and will be available by [facility] for his follow- up appointment, hopefully within the next 2 weeks [...] 2. Discussion of adjuvant options 11/24/2023 at [facility]. Negative BRAF status. PET/CT negative for distant metastatic disease, no disease noted on CT head. -- 12/17/2023: Decision against active therapy due to his known history of rheumatoid arthritis. Will follow with every 3-month surveillance. Intake Vitals/Pain Assessment 10/05/24 14:52 Height 5 ft 10 in Weight 74.389 kg BMI 23.5 Body Fat % 42.87 BP 167/73 H Blood Pressure Location Lt brachial Position Sitting Temp 97.8 F Temp Source Temporal Pulse 66 Pulse Source NIBP Respiration 16 Pulse Oximetry (%) 98 Oxygen Delivery Method room air Are you having pain? No Intake Visit Reasons: Follow Up, follow up visit Accompanied by: Self Allergies latex Allergy (Unknown, Verified 10/05/24 14:57) Rash Penicillins Allergy (Unknown, Verified 10/05/24 14:57) Swelling of the Eye - Last Reconciled 10/05/24 by SILVIA Alexandra alfuzosin ER 10 mg PO DAILY amlodipine 2.5 mg PO DAILY 90 days atorvastatin 40 mg PO DAILY calcium carbonate-vitamin D3 500 mg-3.125 mcg (125 unit) (Calcium) 1 tab PO DAILY cholecalciferol (vitamin D3) (Vitamin D3) 1 tab PO DAILY ferrous sulfate (iron) 1 tab PO DAILY fexofenadine (Ramona Hives) 180 mg PO DAILY furosemide 40 mg PO DAILY hydroxychloroquine 200 mg PO BID leflunomide 20 mg PO .qod losartan 50 mg PO DAILY metoprolol succinate ER 75 mg (1.5 x 50 mg) PO DAILY 90 days nitroglycerin (Nitrostat) 0.4 mg sublingual DIRECTED spironolactone Take 1 tablet by mouth once daily warfarin 5 mg PO DAILY Gastrointestinal Is the patient taking opioids for pain control?: No Falls Fall Precaution Measures Taken: Patient in chair Nurse's Note: Patient is here today for a follow up visit and go over labs and extremity Ultrasound. COUNTS INCLUDE 234 BEDS AT THE [facility] Medical History Medical History Medicare annual wellness visit, subsequent Thrombocytopenia Ischemic cardiomyopathy Echo: CYFT89-88%, RACHAEL, RV dilated, RVSP 72, bioprosthetic MV - 05/2024 Iron deficiency anemia Chronic venous insufficiency Autoimmune thyroiditis Hypercholesterolemia Anemia ASHD (arteriosclerotic heart disease) Cardiac pacemaker Carotid stenosis Bradycardia Rheumatoid arthritis History of prostate cancer CAD (coronary artery disease) BPH (benign prostatic hyperplasia) Atrial fibrillation Hyperlipidemia HTN (hypertension) Melanoma Surgical History Surgical History H/O colonoscopy (~2015) H/O mitral valve replacement Hx of CABG H/O bilateral cataract extraction H/O cystoscopy (~2016) 2015, 2016 Family History Family History Brother [facility] Relation: Brother(s) Father Heart disease 85 yrs Mother 65 yrs [facility] Problem: Diagnosed with Cancer History of ovarian [...] night sweats. HEAD AND NECK: Positive for well-healed scalp wound and now minimal postop ptosis of right eyelid. No periorbital edema. Negative for changes in hearing and vision. Negative for mouth ulcers, nasal congestion and nasal drainage. No sicca symptoms since parotidectomy. PULMONARY: Negative for chest pain, cough and dyspnea. CARDIOVASCULAR: Negative for claudication and irregular heartbeat/palpitations. Patient has longstanding atrial fibrillation with pacemaker/AICD in place. No recent angina. GASTROINTESTINAL: Negative for abdominal pain, constipation, decreased appetite,diarrhea, nausea orvomiting. GENITOURINARY: Negative for dysuria and hematuria. Nocturia [...] and rash. Negative for suspicious skin lesions--healing woundright scalp and right parotidectomy. MUSCULOSKELETAL: Negative for back pain and bone/joint symptoms currently. Known history of rheumatoid arthritis on Arava and Plaquenil therapy, no active synovitis currently. HEMATOLOGICAL: Negative for bleeding and easy bruising. Negative for history of transfusion or thromboembolic disease. Daughter previously noted he tends to have mild anemia but has not had a workup for this. Also on prior labs he has borderline thrombocytopenia (may be due to Arava). ALLERGY: Negative for environmental allergies and food allergies. Physical Exam EXAM ECOG performance status 2, pain 0/10 CONSTITUTIONAL: The patient is in no acute distress. HEAD / FACE: Normocephalic. Well-healed right frontal scalp incision without suspicious areas for recurrence. No associated erythema or pain. Status post right parotidectomy, well-healed. EYES: Pupils are equal and reactive to light. Conjunctivae and lids are benign in appearance. Ocular movement intact. EARS: Hearing grossly intact. NOSE / MOUTH / THROAT: Nose, mouth, [...] BACK / SPINE: The back is nontender. MUSCULOSKELETAL: Normal musculature, no obvious joint deformities or abnormalities, mildly limited range of motion wrist and MCP joints. EXTREMITIES: No edema, cyanosis or clubbing. No Kodak sign. NEUROLOGICAL: Alert and oriented. Cranial nerves intact. No gross motor or sensory deficits. PSYCHIATRIC: No anxiety or evidence of depression. Results - [facility] LAB RESULTS Corrected WBC 5.4 X10E3/uL (4.1-10.5) 10/02/24 13:51 4 Hgb 10.5 g/dL (13.0-17.0) L 10/02/24 13:51 4 Hct 31.0 % (38.8-50.0) L 10/02/24 13:51 10/02/24 MCV 95.1 fl (83.5-101) 10/02/24 13:51 10/02/24 RDW 14.4 % (12.0-14.8) 10/02/24 13:51 10/02/24 Plt Count 131 x10E3/uL (150-450) L 10/02/24 13:51 Sodium 140 mmol/L (136-145) 10/02/24 13:51 10/02/24 Potassium 4.3 mmol/L (3.5-5.1) 10/02/24 13:51 10/02/24 BUN 21 mg/dL (7-25) 10/02/24 13:51 10/02/24 Creatinine 1.27 mg/dL (0.70-1.30) 10/02/24 13:51 10/02/24 Glucose 107 mg/dL (70-100) H 10/02/24 13:51 10/02/24 Est GFR (CKD-EPI) 54.679 mL/Min 10/02/24 13:51 10/02/24 Calcium 9.4 mg/dL (8.6-10.3) 10/02/24 13:51 10/02/24 Total Bilirubin 0.7 mg/dl (0.3-1.0) 10/02/24 13:51 10/02/24 AST 22 U/L (13-39) 10/02/24 13:51 10/02/24 ALT 32 U/L (7-52) 10/02/24 13:51 10/02/24 Alkaline Phosphatase 63 U/L (34-104) 10/02/24 13:51 10/02/24 Total Protein 6.1 gm/dL (6.4-8.9) L 10/02/24 13:51 10/02/24 Albumin 4.2 gm/dL (3.5-5.7) 10/02/24 13:51 10/02/24 Lactate Dehydrogenase 215 U/L (140-271) 10/02/24 13:51 4 RADIOLOGY/IMAGING RESULTS CT BRAIN WITHOUT AND WITH INTRAVENOUS CONTRAST: CLINICAL HISTORY: History of malignant melanoma of the head. COMPARISON: 11/29/2023 TECHNIQUE: Contiguous axial images were obtained through the brain both before and after intravenous administration of 90 mL of Isovue-300. This CT exam was performed using one or more following dosereduction techniques: Automated exposure control, adjustment of the mA and/or kV according to patient size, or use of iterative reconstruction technique. FINDINGS: Generalized atrophy is again seen. The ventricles are within normal limits for size and position. Similar chronic microvascular changes are noted. There are no developing areas of abnormal attenuation or enhancement. There is no hemorrhage, mass effect or extra-axial collections. The imaged paranasal sinuses and mastoid air cells are clear. There is vertebral artery and carotid siphon plaque. CT/CT head/brain wo/w con IMPRESSION: ATROPHY AND CHRONIC MICROVASCULAR DISEASE. NO ACUTE INTRACRANIAL FINDINGS OR SUSPECTED METASTATIC DISEASE.. Impression dictated by: Hafsa Keen M.D.06/12/2024 11:[address] soft tissue neck w con 06/12/2024 8:42 AM SIGNS AND SYMPTOMS: Malignant melanoma of scalp and neck CONTRAST: 90 mL of intravenous Isovue-300 TECHNIQUE: Multidetector CT axial slices of the soft tissues of the neck were obtained with IV contrast. Sagittal and coronal reformats were reconstructed. CTwas performed with one or more of the following dose reduction techniques: Automated exposure control, adjustment of the mA and/or kV according to patient size, or use of iterative reconstruction technique. COMPARISON: 11/19/2023 FINDINGS: Soft tissues of the orbits are within normal limits. The soft tissues of the infratemporal fossa fossa structures show no acute abnormality. Mucosal surfacesof the nasopharynx, oropharynx, hypopharynx, glottic, and subglottic airways aregrossly unremarkable. The parotid glands, submandibular, and the thyroid gland are within normal limits. The carotid and jugular circulations are within normal limits. The visualized lung parenchyma shows no acute pathology. No acute bony abnormalities are appreciated. Degenerative changes are present inthe cervical spine.The skull base, craniocervical junction, atlantoaxial jointsare within normal limits. The paranasal sinuses are within normal limits. CT/CT soft tissue neck w con IMPRESSION: No evidence of mass, soft tissue swelling, or abnormality enhancement. Impression dictated by: Tereso Lynn M.D.06/12/2024 12:[address] chest w con 06/12/2024 7:29 AM SIGN AND SYMPTOMS: ^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 Multiplanar reformats were performed and viewed on a separate workstation and reviewed to further define anatomy and possible pathology. CT was performed with one or more of the following dose reduction techniques: Automated exposure control, adjustment of the mA and/or kV according to patient size, or use of iterative reconstruction technique. COMPARISON: 11/19/2023. FINDINGS: Lower neck: Thyroid gland within normal limits, no supraclavicle adenopathy. Vessels: Atherosclerotic changes are noted in the thoracic aorta, coronary arteries, and at the origins of the great vessels. There is no evidence of pulmonary motion. Mediastinum and [place]: Within normal limits. Heart: There is cardiomegaly. No pericardial effusion. 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 Pacer leads are present. Airways: Within normal limits Lungs: Mild linear scarring is noted in the lung bases. Pleura: Within normal limits. Chest Wall: Within normal limits. Upper Abdomen: There is a 6 mL matter enhancing focus in the dome of the right hepatic lobe. Bones: There is evidence of prior sternotomy. Degenerative changes are noted in the thoracic spine.Remote healed right anterior fractures are noted. CT/CT chest w con IMPRESSION: No evidence of pulmonary metastatic disease. There is redemonstration of cardiomegaly. There is a 6 mL matter enhancing focus in the dome of the right hepatic lobe. Please see separatelydictated abdomen and pelvis CT for further detail. Impression dictated by: Tereso Lynn M.D.06/12/2024 1:[address] abdomen pelvis w con 06/12/2024 7:29 AM SIGNS AND SYMPTOMS: Malignant melanoma of scalp and neck TECHNIQUE: Multidetector ct axial images of the abdomen and pelvis were obtainedwith IV contrast. Multiplanar reformats were performed and reviewed to further define anatomy and possible pathology. CT was performed with one or more of thefollowing dose reduction techniques: Automated exposure control, adjustment of the mA and/or kV according to patient size, or use of iterative reconstruction technique. COMPARISON: None. FINDINGS: Lower Chest: Atherosclerotic changes are noted in the coronary arteries and thoracic aorta. There is cardiomegaly. ABDOMEN: Liver: There is a 7 mm focus of enhancement in the dome of the right hepatic lobe. Bile Ducts: Normal caliber. Gallbladder: No calcified gallstones. Normal caliber wall. Pancreas: Within normal limits. Spleen: Within normal limits. Adrenals: Within normal limits. Kidneys: There is a simple cyst in the right renal cortex requiring no further follow-up. Pelvis: Reproductive Organs: Radiation seeds are noted in the prostate. Ureters: Within normal limits. Bladder: Within normal limits. Bowel: Normal caliber. There is a normal appendix in the right lower quadrant. Mesenteric Lymph Nodes: No enlarged mesenteric lymph nodes. Peritoneum: No ascites or free air, no fluid collection. Vessels: Atherosclerotic changes are noted in the abdominal aorta and its branches. Retroperitoneum: Within normal limits. Abdominal Wall: Within normal limits. Bones: Degenerative changes are noted in the thoracolumbar spine, hips, and sacral iliac joints. CT/CT abdomen pelvis w con IMPRESSION: There is a 7 mm focus of enhancement in the dome of the right hepatic lobe.Metastatic disease should be considered. Other etiologies may include a flash filling hemangioma or tumor of hepatocellular origin. Follow-up with contrast-enhanced MRI of the liver may be helpful. Additional repeat imaging w ith PET/CT may also be helpful. Graph no additional evidence of metastatic disease. No acute intra-abdominal pathology is noted otherwise. Impression dictated by: Tereso Lynn M.D.06/12/2024 1:15 PM Social Determinants of Health Screening Social determinants of health last assessed in clinic: 10/06/24 Will the patient participate in the screening?: Yes Do you worry about having a steady place to live?: No In the past 12 months, have you had to go without electric, gas, oil, or water in your home?: No Have you or anyone in your house had to go without enough food to eat?: No Has lack of reliable transportation kept you from medical appointments or from doing things needed for daily living?: No Has anyone in your support network made you feel unsafe for any reason?: No Does the patient want assistance with any of the above?: No Dictated By: Adilene Weinberg MD DD/ [id number] Signed By: 10/06/24 1322 [facility]11-01-2024 History of Present illness Narrative * Elkin Holly MD - 2024 3:30 PM EDT ENT Outpatient Consultation Chief Complaint: Melanoma right superior forehead History Of Present Illness Nelly Hannon is a 89 y.o. male referred for management of a [...] on close surveillance given his history of rheumatoidarthritis He has some right lid ptosis. His prior incision is now completely healed. He is getting followed by Dr. Roque 08/04/24: Patient returns for follow-up. No major concerns since his last visit. He had scans completed by Dr. Weinberg which were negative. He is continuing to follow with dermatology Past Medical History He has a past [...] History Patient lives alone, daughter lives in [place] Family History Denies family history of melanoma [...] taken for this visit. Assessment and Plan 89 y.o. male with 1.8 mm depth melanoma of the right superior forehead. He underwent wide local excision, sentinel node biopsy, primary closure. Pathology showed negative margins for melanoma and 2 out of 2 positive sentinel lymph node. PET negative. CT head negative. Met with Dr. Weinberg and they decided on surveillance -Patient regularly follows with dermatology and also Dr. Weinberg for scans. He will be getting scans every 6 months. They would prefer to continue their surveillance locally and follow-up with me as needed. I discussed with them concerning signs and symptoms and they will return with any new or concerning findings Elkin Holly MD [facility] Work Phone: 1(649) 716-603610-17-2024 Evaluation note* Diagnosis Onset Date Resolution Status Admit Date Anemia acute July 20, 2024 8:55am ASHD (arteriosclerotic heart disease) acute July 20 8:55am Atrial fibrillation acute Octob er 2023 8:55am HTN (hypertension) acute Octobe r 2023 8:55am Hypercholesterolemia acute Octo gio 2023 8:55am Medicare annual wellness vis it, subsequent acute July 20 8:55am Melanoma of head acute July 20, 2024 8:55am Rheumatoid arthritis acute Octo gio 2023 8:55am Thrombocytopenia acute July 20, 2024 8:55am Abnormal computerized axial tomography of liver acute October 05, 2024 2:50pm Cardiac pacemaker acute October 05, 2024 2:50pm Encounter for coordination o f complex care acute October 05 2:50pm History of prostate cancer acute October 05, 2024 2:50pm Melanoma of head acute October 05, 2024 2:50pm Rheumatoid arthritis acute Dalton2024 2:50pm [facility] Work Phone: 1(913) 299-713909-18-2024 Progress note Author Adilene Weinberg [facility] June 21, 2024 1:09pm Note Date/Time June 21, 2024 10:22am [facility] [place] [address] Cancer Center Note Signed Patient: Nelly Hannon MR#: [id number] : 1935 Acct:[id number] Age/Sex: 88 / M Type: REG AMB Date of Service: 06/21/24 Copies to: Steve De Paz,DO~ Assessment & [...] increase risk of recurrence. The patient's daughter who lives in [place] will be available by phone consultationat the time of his follow-up. He does have capacity for decision-making. All questions were answered over this 60-minute initial consultation. 12/17/2023: Discussion of negative BRAF status and no evidence of INTEGRITY DIRECTOR disease on contrast head CT from 11/29/2023. [...] 35-minute follow-up of results and surveillance plan. 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 He has no evidence of recurrence of disease by exam and hasscheduled dermatology follow-up in 2 weeks. Surveillance ultrasound of right neck shows no evidence of metastatic lymph nodes. Bidirectional imaging for restaging will be due in late May including head, neck, chest, abdomen, and pelvis. We will review results with him in early June with repeat CBC, CMP, and LDH. He may return sooner if concerning signs or symptoms of recurrence. Moderate complexity 35- minute follow-up. 06/21/2024: Mr. 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 No new or concerning symptoms and heremains ambulatory with normal diet. No evidence of recurrence on follow-up skin exams with Dr. Roque. Rheumatoid arthritis symptoms are stable on chronicimmunosuppression. His restaging 6-month CT head, neck, chest abdomen and pelvis shows no evidence of local recurrence of the scalp or cervical lymph nodes, no abnormalities of lungs or mediastinum, however there is a 7 mm focus of enhancement in the dome of the right hepatic lobe that is indeterminate for potential metastatic disease versus flash filling hemangioma or tumor of hepatocellular origin. Ideally we would obtain MRI of the liver for further evaluation, however the patient has a non-MRI compatible pacemaker, therefore wewill order PET/CT for surveillance. We will review these results in the next 2 to 3 weeks after studies completed. May consider following alpha- fetoprotein aswell if abnormality is noted on PET/CT. Otherwise we will continue surveillancewith neck ultrasound in September 2024 if no recurrence on PET/CT. Moderate complexity 35-minute follow-up. (2) Abnormal computerized axial tomography of liver: Plan: As noted above there is a 7 mm focus of enhancement in the dome of the right hepatic lobe noted on CT abdomen and pelvis from 06/12/2024. Will evaluate with PET/CT since MRI cannot be performed due to pacemaker. Follow-up results in 2 to 3 weeks. 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 No recent issues but cannot have MRI due to pacemaker in place. (4) Rheumatoid arthritis: Plan: Patient reports he has [...] every 2 weeks to assess his tolerance. (5) History of prostate cancer: Plan: Remote history of prostate cancer 2009 status post brachytherapy. Most recent PSA in May 2023 was undetectable. Nocturia about once each evening but no recent prostate symptoms. (6) Encounter for coordination of complex care: Plan: Decision for observation only made with patient and daughter at phone follow-up 12/17/2023. The patient's son-in-law is present with him today and assists with history. Discussion of symptoms and surveillance CT imaging. Coordination of PET/CT in ieu of MRI due to pacemaker in place. 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 Continues Arava and hydroxychloroquine therapy for rheumatoid arthritis without exacerbation recently. Has followup with Dr. Roque of dermatology at the end of this month--he states he was last seen by dermatology about 2 months ago and had somelesions burned off but no new concerning melanoma dislocations. He has no worsening fatigue, no worsening of ptosis of his right upper eyelid (he is scheduled to follow-up with [facility]mology in May 2025 for possible procedure to fix this ptosis). No scalp pain at the area of his prior surgery. We reviewed his laboratory showing mild anemia but no abnormalities ofrenal or hepatic function. CT of the head shows age-related atrophy and chronicmicrovascular disease but no intracranial findings for evidence of local recurrence of the scalp. CT of the neck shows no malignant adenopathy or other concerning findings for metastatic disease. CT of the chest abdomen pelvis shows no abnormalities of the lung parenchyma or mediastinum or thyroid, howeverthere is a 7 mm focus of enhancement in the dome of the right hepatic lobe. Thepatient has a pacemaker in place and we will determine whether this can be evaluated by MRI with his pacemaker. Metastatic disease is considered although flash filling hemangioma or tumor of hepatocellular origin are also possibilities. If he is unable to have contrast-enhanced MRI, we may readdress her PET/CT although 7 mm lesion may be below the level of detection. We will contact the patient to coordinate MRI of the liver if possible and we will see him thereafter to review results. If MRI unremarkable I will see him in September with neck ultrasound for surveillance. No other evidence of recurrenceon exam. The patient has capacity for decision making and his son-in-law was present to assist with memory of recommendations. Moderate complexity [id number]. 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 No change in his Arava and hydroxychloroquine therapy for rheumatoid arthritis and no recent clinical flare. He denies any pain or any change of mild ptosis of the right eye. No change in postoperative numbness. No new skin lesions are seen and he has follow-up with Dr. Roque of dermatology in 2 weeks for full body skin exam. Nopalpable adenopathy or neck pain. Ultrasound of right neck reviewed from 03/14/2024 showing no abnormal adenopathy. Plan for routine follow- up with me in3 months after CT head neck chest abdomen and pelvis for bidirectional imaging restaging. He may return sooner if new issues arise. Moderate complexity 35-minute follow-up to review exam and restaging ultrasound. 12/17/2023: Nelly presents unaccompanied but his daughter [...] the deep margin. He was referred to [facility] head neck oncologic surgery. On 10/28/2023 [...] specimen and this will be requested from [facility]. Given his history of rheumatoid arthritis [...] at that time. She lives in the [facility] and will be available by [facility] for his follow-up appointment, hopefully within [...] 2. Discussion of adjuvant options 11/24/2023 at [facility]. Negative BRAF status. PET/CT negative for distant metastatic disease, no disease noted on CT head. -- 12/17/2023: Decision against active therapy due to his known history of rheumatoid arthritis. Will follow with every 3-month surveillance. Intake Vitals/Pain Assessment 06/21/24 10:21 Height 5 ft 10 in Weight 74.389 kg BMI 23.5 Body Fat % 42.64 BP 154/65 H Blood Pressure Location Lt brachial Position Sitting Temp 97.9 F Temp Source Temporal Pulse 60 Pulse Source NIBP Respiration 16 Pulse Oximetry (%) 99 Oxygen Delivery Method room air Are you having pain? No Intake Visit Reasons: Follow Up, follow up visit Allergies latex Allergy (Unknown, Verified 06/21/24 10:26) Rash Penicillins Allergy (Unknown, Verified 06/21/24 10:26) Swelling of the Eye - Last Reconciled 06/21/24 by Pamela Smith alfuzosin ER 10 mg PO DAILY amlodipine 2.5 mg PO DAILY 90 days atorvastatin 40 mg PO DAILY calcium carbonate-vitamin D3 500 mg-3.125 mcg (125 unit) (Calcium) 1 tab PO DAILY cholecalciferol (vitamin D3) (Vitamin D3) 1 tab PO DAILY ferrous sulfate (iron) 1 tab PO DAILY fexofenadine (Ramona Hives) 180 mg PO DAILY furosemide 40 mg PO DAILY hydroxychloroquine 200 mg PO BID leflunomide 20 mg PO .qod losartan 50 mg PO DAILY metoprolol succinate ER 100 mg PO DAILY nitroglycerin (Nitrostat) 0.4 mg sublingual DIRECTED spironolactone Take 1 tablet by mouth once daily warfarin 5 mg PO DAILY Gastrointestinal Is the patient taking opioids for pain control?: No [place] Precaution Measures Taken: Patient in chair Nurse's Note: Patient is here today for a 3 month follow up visit and go over CT scans. No newconcerns today. COUNTS INCLUDE 234 BEDS AT THE [facility] Medical History Medical History Thrombocytopenia Ischemic cardiomyopathy Echo: [id number]%, RACHAEL, RV dilated, RVSP 72, bioprosthetic MV - 05/2024 Iron deficiency anemia Chronic venous insufficiency Autoimmune thyroiditis Hypercholesterolemia Anemia ASHD (arteriosclerotic heart disease) Cardiac pacemaker Carotid stenosis Bradycardia Rheumatoid arthritis History of prostate cancer CAD (coronary artery disease) BPH (benign prostatic hyperplasia) Atrial fibrillation Hyperlipidemia HTN (hypertension) Melanoma Surgical History Surgical History H/O colonoscopy (~2015) H/O mitral valve replacement Hx of CABG H/O bilateral cataract extraction H/O cystoscopy (~2016) 2015, 2016 Family History Family History Brother Heart disease [...] night sweats. HEAD AND NECK: Positive for well-healed scalp wound and now minimal postop ptosis of right eyelid. No periorbital edema. Negative for changes [...] history of transfusion or thromboembolic disease. Daughter previously noted he tends to have mild anemia but has not had a workup for this. Also on prior labs he has borderline thrombocytopenia (may be due to Arava). ALLERGY: Negative for environmental allergies and food allergies. Physical Exam EXAM ECOG performance status 2, pain 0/10 CONSTITUTIONAL: The patient is in no acute distress. HEAD / FACE: Normocephalic. Well-healed right frontal scalp incision without suspicious areas for recurrence. No associated erythema or pain. Status post right parotidectomy, well-healed. EYES: Pupils are equal and reactive to light. Conjunctivae and lids are benign in appearance. Ocular movement intact. EARS: Hearing grossly intact. NOSE / MOUTH / THROAT: Nose, mouth, [...] BACK / SPINE: The back is nontender. MUSCULOSKELETAL: Normal musculature, no obvious joint deformities or abnormalities, mildly limited range of motion wrist and MCP joints. EXTREMITIES: No edema, cyanosis or clubbing. No Kodak sign. NEUROLOGICAL: Alert and oriented. Cranial nerves intact. No gross motor or sensory deficits. PSYCHIATRIC: No anxiety or evidence of depression. Results - [facility] LAB RESULTS Corrected WBC 4.4 X10E3/uL (4.1-10.5) 06/12/24 07:40 Hgb 11.0 g/dL (13.0-17.0) L 06/12/24 07:40 Hct 32.6 % (38.8-50.0) L 06/12/24 07:40 MCV 93.4 fl (83.5-101) 06/12/24 07:40 RDW 13.9 % (12.0-14.8) 06/12/24 07:40 Plt Count 132 x10E3/uL (150-450) L 06/12/24 07:40 Sodium 138 mmol/L (136-145) 06/12/24 07:40 Potassium 4.1 mmol/L (3.5-5.1) 06/12/24 07:40 BUN 21 mg/dL (7-25) 06/12/24 07:40 Creatinine 1.19 mg/dL (0.70-1.30) 06/12/24 07:40 Glucose 102 mg/dL (70-100) H 06/12/24 07:40 Est GFR (CKD-EPI) 59.489 mL/Min 06/12/24 07:40 Calcium 9.5 mg/dL (8.6-10.3) 06/12/24 07:40 Total Bilirubin 0.7 mg/dl (0.3-1.0) 06/12/24 07:40 AST 23 U/L (13-39) 06/12/24 07:40 ALT 29 U/L (7-52) 06/12/24 07:40 Alkaline Phosphatase 77 U/L (34-104) 06/12/24 07:40 Total Protein 6.9 gm/dL (6.4-8.9) 06/12/24 07:40 Albumin 4.5 gm/dL (3.5-5.7) 06/12/24 07:40 Lactate Dehydrogenase 211 U/L (140-271) 06/12/24 07:40 RADIOLOGY/IMAGING RESULTS CT BRAIN WITHOUT AND WITH INTRAVENOUS CONTRAST: CLINICAL HISTORY: History of malignant melanoma of the head. COMPARISON: 11/29/2023 TECHNIQUE: Contiguous axial images were obtained through the brain both before and after intravenous administration of 90 mL of Isovue-300. This CT exam was performed using one or more following dose reduction techniques: Automated exposure control, adjustment of the mA and/or kV according to patient size, or use of iterative reconstruction technique. FINDINGS: Generalized atrophy is again seen. The ventricles are within normal limits for size and position. Similar chronic microvascular changes are noted. There are no developing areas of abnormal attenuation or enhancement. There is no hemorrhage, mass effect or extra-axial collections. The imaged paranasal sinuses and mastoid air cells are clear. There is vertebral artery and carotid siphon plaque. CT/CT head/brain wo/w con IMPRESSION: ATROPHY AND CHRONIC MICROVASCULAR DISEASE. NO ACUTE INTRACRANIAL FINDINGS OR SUSPECTED METASTATIC DISEASE.. Impression dictated by: Hafsa Keen M.D.06/12/2024 11:[address] soft tissue neck w con 06/12/2024 8:42 AM SIGNS AND SYMPTOMS: Malignant melanoma of scalp and neck CONTRAST: 90 mL of intravenous Isovue-300 TECHNIQUE: Multidetector CT axial slices of the soft tissues of the neck were obtained with IV contrast. Sagittal and coronal reformats were reconstructed. CTwas performed with one or more of the following dose reduction techniques: Automated exposure control, adjustment of the mA and/or kV according to patient size, or use of iterative reconstruction technique. COMPARISON: 11/19/2023 FINDINGS: Soft tissues of the orbits are within normal limits. The soft tissues of the infratemporal fossa fossa structures show no acute abnormality. Mucosal surfacesof the nasopharynx, oropharynx, hypopharynx, glottic, and subglottic airways aregrossly unremarkable. The parotid glands, submandibular, and the thyroid gland are within normal limits. The carotid and jugular circulations are within normal limits. The visualized lung parenchyma shows no acute pathology. No acute bony abnormalities are appreciated. Degenerative changes are present inthe cervical spine. The skull base, craniocervical junction, atlantoaxial jointsare within normal limits. The paranasal sinuses are within normal limits. CT/CT soft tissue neck w con IMPRESSION: No evidence of mass, soft tissue swelling, or abnormality enhancement. Impression dictated by: Tereso Lynn M.D.06/12/2024 12:[address] chest w con 06/12/2024 7:29 AM SIGN AND SYMPTOMS: ^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 Multiplanar reformats were performed and viewed on a separate workstation and reviewed to further define anatomy and possible pathology. CT was performed with one or more of the following dose reduction techniques: Automated exposure control, adjustment of the mA and/or kV according to patient size, or use of iterative reconstruction technique. COMPARISON: 11/19/2023. FINDINGS: Lower neck: Thyroid gland within normal limits, no supraclavicle adenopathy. Vessels: Atherosclerotic changes are noted in the thoracic aorta, coronary arteries, and at the origins of the great vessels. There is no evidence of pulmonary motion. Mediastinum and [place]: Within normal limits. Heart: There is cardiomegaly. No pericardial effusion. 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 Pacer leads are present. Airways: Within normal limits Lungs: Mild linear scarring is noted in the lung bases. Pleura: Within normal limits. Chest Wall: Within normal limits. Upper Abdomen: There is a 6 mL matter enhancing focus in the dome of the right hepatic lobe. Bones: There is evidence of prior sternotomy. Degenerative changes are noted in the thoracic spine. Remote healed right anterior fractures are noted. CT/CT chest w con IMPRESSION: No evidence of pulmonary metastatic disease. There is redemonstration of cardiomegaly. There is a 6 mL matter enhancing focus in the dome of the right hepatic lobe. Please see separately dictated abdomen and pelvis CT for further detail. Impression dictated by: Tereso Lynn M.D.06/12/2024 1:[address] abdomen pelvis w con 06/12/2024 7:29 AM SIGNS AND SYMPTOMS: Malignant melanoma of scalp and neck TECHNIQUE: Multidetector ct axial images of the abdomen and pelvis were obtainedwith IV contrast. Multiplanar reformats were performed and reviewed to further define anatomy and possible pathology. CT was performed with one or more of thefollowing dose reduction techniques: Automated exposure control, adjustment of the mA and/or kV according to patient size, or use of iterative reconstruction technique. COMPARISON: None. FINDINGS: Lower Chest: Atherosclerotic changes are noted in the coronary arteries and thoracic aorta. There is cardiomegaly. ABDOMEN: Liver: There is a 7 mm focus of enhancement in the dome of the right hepatic lobe. Bile Ducts: Normal caliber. Gallbladder: No calcified gallstones. Normal caliber wall. Pancreas: Within normal limits. Spleen: Within normal limits. Adrenals: Within normal limits. Kidneys: There is a simple cyst in the right renal cortex requiring no further follow-up. Pelvis: Reproductive Organs: Radiation seeds are noted in the prostate. Ureters: Within normal limits. Bladder: Within normal limits. Bowel: Normal caliber. There is a normal appendix in the right lower quadrant. Mesenteric Lymph Nodes: No enlarged mesenteric lymph nodes. Peritoneum: No ascites or free air, no fluid collection. Vessels: Atherosclerotic changes are noted in the abdominal aorta and its branches. Retroperitoneum: Within normal limits. Abdominal Wall: Within normal limits. Bones: Degenerative changes are noted in the thoracolumbar spine, hips, and sacral iliac joints. CT/CT abdomen pelvis w con IMPRESSION: There is a 7 mm focus of enhancement in the dome of the right hepatic lobe.Metastatic disease should be considered. Other etiologies may include a flash filling hemangioma or tumor of hepatocellular origin. Follow-up with contrast-enhanced MRI of the liver may be helpful. Additional repeat imaging with PET/CT may also be helpful. Graph no additional evidence of metastatic disease. No acute intra-abdominal pathology is noted otherwise. Impression dictated by: Tereso Lynn M.D.06/12/2024 1:15 PM Dictated By: Adilene Weinberg MD DD/ 1021 Signed By: <Electronically signed by MD Adilene Weinberg> 06/21/24 8119 [facility] Work Phone: 1(120) 599-504408-19-2024 Hospital Discharge instructions Patient Education 05/22/2024 09:19:11 Prostate Cancer Screening Prostate Cancer Screening Prostate cancer screening is testing that is done to check for the presence of prostate cancer in men. The prostate gland is a walnut-sized gland that is located below the bladder and in front of therectum in males. The function of the prostate is to add fluid to semen during ejaculation. Prostatecancer is one of the most common types of cancer in men. Who should have prostate cancer screening? Screening recommendations vary based on age and other risk factors, as well as between the professional organizations who make the recommendations. In general, screening is recommended if: You are age 50 to 70 and have an average risk for prostate cancer. You should talk with your healthcare provider about your need for screening and [...] diagnosed with prostate cancer. The risk is higherif your family member's cancer occurred at an early age or if you have multiple family members withprostate cancer at an early age. ?Being a [...] is a blood test called the prostate-specific antigen(PSA) test. PSA is a protein that is [...] treatment? Where to find more information The Australian Cancer Society: www.cancer.org Australian Urological Association: www.auanet.org Contact a health care [...] the recommended screening test for prostate cancer, butit has associated risks. Discuss the risks and [...] provider. Document Revised: 03/16/2022 Document Reviewed: 03/16/2022 [employer] Patient Education 2022 [email or web address]. Follow Up Care 05/17/2023 09:45:06 With:MOY ARRIAGA, Cristela Carbajal, URL Address: [facility] [address], [place] [address] [phone] When: Unknown Comments:1 yr w/ PSA [facility] 08-19-2024 NotePatient Education Oncology Prostate Cancer Screening Prostate cancer screening is testing that is done to check for the presence of prostate cancer in men. The prostate gland is a walnut-sized gland that is located below the bladder and in front of therectum in males. The function of the prostate is to add fluid to semen during ejaculation. Prostatecancer is one of the most common types [...] , screening in this age group is generallyreserved for men who have a 10- to [...] is a blood test called the prostate-specific antigen(PSA) test. PSA is a protein that is [...] cancer, and most men with prostate cancer diefrom a different cause. What are the risks [...] Where to find more information ? The Australian Cancer Society: www.cancer.org ? Australian Urological Association: www.auanet.org Contact a health care [...] front of the rectum. (more content not included)...[facility]07-30-2024 NoteCardiovascular Medicine [facility] SUBJECTIVE Chief Complaint Patient presents with Atrial Fibrillation Congestive Heart Failure Hypertension Hyperlipidemia Nelly L Hannon is a 88 y.o. male here [...] Passive exposure: Past Smok (more content not included)...[facility]07-30-2024 NotePatient here for 6 mo follow up persistent afib, chronic systolic heart failure, and CAD. Device was checked 2 weeks ago. Jaron Aj CNP increased metoprolol to 75mg daily [...] pain. All other systems reviewed and are negative.[facility] 05-01-2024 Instructions* Patient Instructions* Caryl Ley MD - 05/01/2024 9:55 AM EDT C/o right eye heaviness after melanoma resection [facility] waiting ~ 1 year to make sure [...] , sooner if issues [facility] History of Present illness Narrative* Caryl Ley MD - 05/01/2024 9:00 AM EDT Pt is here today for a Dermachalasis evaluation States he had melanoma 6 months ago and the droopy eyelid is a result form taking the melanoma out,denies pain NEW patient A/P: Heavy upper eyelids H/o melanoma right forehead s/p SNLB + LN with melanoma Dr. Holly @ [facility] -->not getting immunotherapy yet; managed by [...] and plan as stated above and agree withall of its relevant components. I, Caryl Ley MD, personally performed the services described in this documentation. All medical record entries made by the scribe were at my direction and in my presence. I have reviewed the chart and discharge instructions (if applicable) and agree that the record reflects my personal performance and is accurate and complete. 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 There is a portion of it slightly hypertrophic scar at the center. There is an area of secondary intention. Right brow ptosis. Bilateral upper eyelid dermatochalasis. The frontalis movement is intact on the right side except for the area of the excisionwhere there is no brow elevation at the [...] Head & Neck Surgery documented in this [facility] Work Phone: 1(543) 300-382804-15-2024 History of Present illness Narrative* Elkin Holly MD - 01/17/2024 3:30 PM EDT ENT Outpatient Consultation Chief Complaint: Melanoma right [...] on close surveillance given his history of rheumatoidarthritis He has some right lid ptosis. His [...] History Patient lives alone, daughter lives in [place] Family History Denies family history of melanoma [...] concern Elkin Holly MD documented in this [facility] Work Phone: 1(625) 123-766502-05-2024 History of Present illness Narrative* Elkin Holly MD - 11/08/2023 2:45 PM EST ENT Outpatient Consultation Chief Complaint: Melanoma [...] History Patient lives alone, daughter lives in [place] Family History Denies family history of melanoma [...] eyelid Elkin Holly MD documented in this [facility] Work Phone: 1([phone]) 439-883601-25-2024 Miscellaneous Notes* Op Note - Elkin Holly MD - 10/28/2023 1:12 PM EST ( sln inj @ 7:00 am ) Excision Lesion Skin Head/Neck (R), Biopsy Lymph Node Head/Neck (R) OperativeNote Date: 10/28/2023 OR Location: [facility] OR Name: [...] Surgeons * Elkin Holly - Primary Resident/Fellow/Other Gypsum Roofer: Surgeon(s) and Role:taty Procedure Summary Anesthesia: General [...] DERMATOPATHOLOGY Elkin Holly MD 10/28/2023 1404 Staff: Suction Operator: Miracle Lara RN Scrub Person: Anisa Cunningham Findings: 2 preauricular lymph nodes identified Indications: Nelly Hannon is an 88 y.o. male who is having surgery for Malignant melanoma of forehead ([facility]) [C43.39]. The patient was seen in the [...] has been actively warmed in preoperative area. Preopera tive antibiotics have been ordered and given within [...] The skin was injected with local anesthesia. Apreauricular incision was also marked for access to [...] neck did not show any significant activity. A15 blade was used to make a skin [...] to fascia Elkin Holly documented in this [facility] Work Phone: 1(370) 471-597101-25-2024 Note* Op Note - Elkin Holly MD - 10/28/2023 1:12 PM EST ( sln inj @ 7:00 am ) Excision Lesion Skin Head/Neck (R), Biopsy Lymph Node Head/Neck (R) OperativeNote Date: 10/28/2023 OR Location: [facility] OR Name: [...] Surgeons * Elkin Holly - Primary Resident/Fellow/Other Gypsum Roofer: Surgeon(s) and Role:taty Procedure Summary Anesthesia: General [...] DERMATOPATHOLOGY Elkin Holly MD 10/28/2023 1404 Staff: Suction Operator: Miracle Lara RN Scrub Person: Anisa Cunningham [...] has been actively warmed in preoperative area. Preopera tive antibiotics have been ordered and given within [...] The skin was injected with local anesthesia. Apreauricular incision was also marked for access to [...] neck did not show any significant activity. A15 blade was used to make a skin [...] excision Other deep to fascia Elkin Holly [facility] Work Phone: 1(971) 162-390301-25-2024 Hospital Discharge instructions* Discharge Instructions* Naima Rodgers MD - 10/28/2023 12:13 PM EST Facial/Neck Incision Care: Cleanse all facial/neck incisions twice daily with baby shampoo or mild soap and water. Apply petroleum jelly/vaseline to incision line twice daily until incision has healed. documented [facility] Work Phone: 1(942) 916-711101-25-2024 Attending History and physical note* Elkin Holly MD - 10/28/2023 10:10 AM EST H&P reviewed. The patient was examined and there are no changes to the H&P. Source Note - User [facility] - 10/19/2023 12:00 AM EST [facility] Work Phone: 1([phone]) 473-170201-25-2024 History and physical note* Elkin Holly MD - 10/28/2023 10:10 AM EST H&P reviewed. The patient was examined and there are no changes to the H&P. 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 No bleeding complications Jul, Primary hypertension (ICD-10 [...] (ICD-10 - Z79.899) Check labs: CBC, ALT [employer] Other 08-28-2023 Evaluation note* Encounter Date Diagnosis Assessment Notes Treatment Notes Treatment Clinical Notes May, Seasonal allergic rhinitis due to pollen (ICD-10 - J30.1) [employer] Other 08-14-2023 Hospital Discharge instructions Patient Education [...] under a microscope. This is called the Aleksey score and the total score can range from 6 10, indicating how likely it is that the cancer will spread (metastasize) to other parts of the body. The higher the score, the greater thelikelihood that the cancer will spread. Aleksey 6 or lower: This indicates that the cancer cells look similar to normal prostate cells (well differentiated). Grimstead 7: This indicates that the cancer cells look somewhat similar to normal prostate cells (moderately differentiated). [place]imstead 8, 9, or 10: This indicates that [...] stress of having cancer. General instructions Take ssgh-ydp-zujfxec and prescription medicines only as told by your health care provider. If you have to go to the hospital, notify your cancer specialist (oncologist). Keep all follow-up visits. This is important. Where to find more information Australian Cancer Society: www.cancer.org Australian Society of Clinical Oncology: www.cancer.net National Cancer [place]: www.cancer.gov Contact a health care provider if: [...] provider. Document Revised: 12/17/2021 Document Reviewed: 12/17/2021 [employer] Patient Education 2022 [email or web address]. 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 Restart wearing support stockings during the daytime [employer] Other 04-21-2023 Evaluation note* Encounter Date Diagnosis [...] exercise and AHA diet plan. 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 Jan, Chronic venous insufficiency (ICD-10 - I87.2) [...] cardiac pacemaker in situ (ICD-10 - Z95.0) [employer] Other 2022 NoteHISTORY AND PHYSICAL EXAMINATION Date:04/15/2022 [...] and go forward with his elective procedure.[facility] [id number] NoteOPERATIVE NOTE OPERATION DATE: 04/16/2022 SURGEON: Debbie [...] ensuring mobility, phacoemulsification was performed in a scnjdkz-nkb-thbzaf-type fashion. After all nuclear material had been [...] up the following day for postoperative care.[facility] 05-07-2022 NoteOPERATIVE NOTE OPERATION DATE: [...] ensuring mobility, phacoemulsification was performed in a obxulyk-ovn-xdujlt-type fashion. After all nuclear material had been [...] up the following day for postoperative care.[facility] [id number] NoteHISTORY AND PHYSICAL EXAMINATION Date:05/06/2022 HISTORY: Patient [...] decline other than that of cataract. 2. [id number] patient was briefed in the office and [...] and go forward with this elective procedure.[facility] [id number] Hospital Discharge instructions Patient Education 05/04/2022 13:26:39 [...] urethra. Follow these instructions at home: Take aerb-cib-cunbsus and prescription medicines only as told by [...] 09/20/2006 Document Revised: 08/15/2019 Document Reviewed: 10/25/2017 [employer] Patient Education 2020 [email or web address]. Follow Up Care 04/11/2021 11:38:50 With:MOY ARRIAGA, Cristela Carbajal, URL Address: [facility] [address] , [place] [address]- [phone] When:Within 1 Year(s) Comments:w/ CHELI [facility] 07-14-2022 NotePRE-OP HISTORY AND PHYSICAL Date:04/15/2022 HISTORY: [...] and go forward with his elective procedure.[facility] [id number] NoteOP Note OPERATION DATE: 04/16/2022 SURGEON: Debbie [...] ensuring mobility, phacoemulsification was performed in a oqgaabn-xbb-ufmqyn-type fashion. After all nuclear material had been [...] up the following day for postoperative care.[facility] 11-03-2021 Evaluation note* Encounter Date [...] working and gentle motion and strength exercise. [employer] Other 01-07-2022 Evaluation note* Encounter Date Diagnosis [...] in office today. Prior medical notes from [facility] and history have been reviewed. At [...] non-union discussed. 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 Oct, Other See orders for this visit as documented in the electronic medical record. [employer] Other Evaluation + Plan note Future Appointments Appointment Date:05/17/2023 08:45:00 AM Scheduled Provider:Cristela WINTER MD Location:[facility] Appointment Type:URO Office Visit Diagnostic Tests Pending * PSA Total 05/04/22 [facility] evaluation + Plan note Future Appointments Appointment Date:05/22/2024 08:45:00 AM Scheduled Provider:Cristela WINTER MD Location:[facility] Appointment Type:URO Office Visit Diagnostic Tests Pending * PSA Total 05/17/23 [facility] evaluation + Plan note Future Appointments Appointment Date:05/25/2025 08:00:00 AM Scheduled Provider:Cristela WINTER MD Location:[facility] Appointment Type:URO Office Visit Diagnostic Tests Pending * PSA Total 05/22/24 [facility] evaluation noteNo assessment information available [facility] Work Phone: Evaluation noteNo InformationNortCanonsburg [facility] Other Evaluation note* Diagnosis 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) documented in this encounter [facility] Work Phone: Evaluation note* Diagnosis 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) Post-op pain Other acute postoperative pain HTN (hypertension) Unspecified essential hypertension Hyperlipidemia Other and unspecified hyperlipidemia Atrial fibrillation (CMS/HCC) Atrial fibrillation documented in this encounter [facility] Work Phone: Evaluation note* Diagnosis Malignant melanoma of forehead (CMS/HCC) documented in this encounter [facility] Work Phone: [phone] note* Diagnosis Malignant melanoma of forehead (CMS/HCC) documented in this encounter [facility] Work Phone: Evaluation note* Diagnosis Onset Date Resolution Status Melanoma of head acute [facility] Work Phone: Evaluation note* Diagnosis Onset Date Resolution Status Cardiac pacemaker acute Encounter for coordination of complex care acute History of prostate cancer a cute Melanoma of head acute Rheumatoid arthritis acute Cardiac pacemaker acute Encounter for coordination of complex care acute History of prostate cancer a cute Melanoma of head acute Rheumatoid arthritis acute [facility] Work Phone: Evaluation note* Diagnosis Brow ptosis, right- Primary Dermatochalasis of right upper eyelid documented in this encounter [facility] Work Phone: Evaluation note* Diagnosis Onset [...] (hypertension) acute Hypercholesterolemia acute Rheumatoid arthritis acute [facility] Work Phone: Evaluation note* Diagnosis Malignant melanoma of forehead (Multi)- Primary documented in this encounter [facility] Work Phone: Evaluation note* Diagnosis Onset [...] Melanoma of head acute Rheumatoid arthritis acute [facility] Work Phone: Evaluation note* Diagnosis Onset Date Resolution Status Cardiac pacemaker acute Encounter for coordination of complex care acute History of prostate cancer a cute Melanoma of head acute Rheumatoid arthritis acute Anemia acute ASHD (arteriosclerotic heart disease) acute Atrial fibrillation acute HTN (hypertension) acute Hypercholesterolemia acute Melanoma of head acute Rheumatoid arthritis acute Thrombocytopenia acute [facility] Work Phone: Evaluation note* Diagnosis Dermatochalasis of both upper eyelids- Primary Myogenic ptosis of bilateral eyelids [facility] Diagnosis Onset Date Resolution Status Anemia acute ASHD (arteriosclerotic heart disease) acute Atrial fibrillation acute HTN (hypertension) acute Hypercholesterolemia acute Melanoma of head acute Rheumatoid arthritis acute Thrombocytopenia acute Abnormal computerized axial tomography of liver acute Cardiac pacemaker acute Encounter for coordination of complex care acute History of prostate cancer a cute Melanoma of head acute Rheumatoid arthritis acute [facility] Work Phone: Evaluation note* Diagnosis Onset Date Resolution Status Anemia acute ASHD (arteriosclerotic heart disease) acute Atrial fibrillation acute HTN (hypertension) acute Hypercholesterolemia acute Melanoma of head acute Rheumatoid arthritis acute Thrombocytopenia acute Abnormal computerized axial tomography of liver acute Cardiac pacemaker acute Encounter for coordination of complex care acute History of prostate cancer a cute Melanoma of head acute Rheumatoid arthritis acute Abnormal computerized axial tomography of liver acute Cardiac pacemaker acute Encounter for coordination of complex care acute History of prostate cancer a cute Melanoma of head acute Rheumatoid arthritis acute [facility] Work Phone: Evaluation note* Diagnosis Onset Date Resolution Status Anemia acute ASHD (arteriosclerotic heart disease) acute Atrial fibrillation acute HTN (hypertension) acute Hypercholesterolemia acute Melanoma of head acute Rheumatoid arthritis acute Thrombocytopenia acute Abnormal computerized axial tomography of liver acute Cardiac pacemaker acute Encounter for coordination of complex care acute History of prostate cancer a cute Melanoma of head acute Rheumatoid arthritis acute Abnormal computerized axial tomography of liver acute Cardiac pacemaker acute Encounter for coordination of complex care acute History of prostate cancer a cute Melanoma of head acute Rheumatoid arthritis acute Anemia acute ASHD (arteriosclerotic heart disease) acute Atrial fibrillation acute HTN (hypertension) acute Hypercholesterolemia acute Medicare annual wellness visit, subsequent acute Melanoma of head acute Rheumatoid arthritis acute Thrombocytopenia acute [facility] Work Phone: Evaluation note* Diagnosis Malignant melanoma of forehead (Multi)- Primary documented in this encounter [facility] Work Phone: Evaluation note* Diagnosis Onset Date Resolution Status Abnormal computerized axial tomography of liver acute Cardiac pacemaker acute Encounter for coordination of complex care acute History of prostate cancer a cute Melanoma of head acute Rheumatoid arthritis acute Abnormal computerized axial tomography of liver acute Cardiac pacemaker acute Encounter for coordination of complex care acute History of prostate cancer a cute Melanoma of head acute Rheumatoid arthritis acute Anemia acute ASHD (arteriosclerotic heart disease) acute Atrial fibrillation acute HTN (hypertension) acute Hypercholesterolemia acute Medicare annual wellness visit, subsequent acute Melanoma of head acute Rheumatoid arthritis acute Thrombocytopenia acute [facility] Work Phone: History general Narrative - Reported* Type Description Date Medical History Arthritis Surgical History cardiac pacemeker [facility] Other [facility] general Narrative - Reported* Type Description Date [...] Surgical History COLONOSCOPY Hospitalization History SEE SURGICAL [facility] Other [facility] general Narrative - Reported* Type Description Date Surgical History cardiac pacemeker 2012 Surgical History EXTRACTION OF CATARACT OF BOTH EYES 2021 Surgical History REPLACEMENT, ICD, BIVENTRICULAR 2020 Surgical History CABG Surgical History MVR Surgical History COLONOSCOPY Hospitalization History SEE SURGICAL HX [facility] Other History general Narrative - Reported* Type [...] History COLONOSCOPY Hospitalization History SEE SURGICAL HX [facility] Other History general Narrative - Reported* Type [...] History COLONOSCOPY Hospitalization History SEE SURGICAL HX [facility] Other Hospital course Narrative No data available for this section [facility] progress note No data available for this section [facility] progress note Author Adilene Weinberg [facility] December 17, 2023 4:31pm Note Date/Time December 17, 2023 11: 39am [facility] [place] [address] Cancer Center Note Signed Patient: Nelly Hannno MR#: [id number] : 1935 Acct:[id number] Age/Sex: 88 / M Type: DEP AMB [...] of recurrence. The patient's daughter wholives in [place] will be available by phone consultation at the time of his follow-up. He does have capacity for decision-making. All questions were answered over this 60-minute initial consultation. 12/17/2023: Discussion of negative BRAF status and no evidence of INTEGRITY DIRECTOR disease on contrast head CT from 11/29/2023. [...] the deep margin. He was referred to [facility] head neck oncologic surgery. On 10/28/2023 [...] specimen and this will be requested from [facility]. Given his history of rheumatoid arthritis [...] at that time. She lives in the [facility] and will be available by [email or web address] for his follow-up appointment, hopefully within the [...] 2. Discussion of adjuvant options 11/24/2023 at [facility]. Negative BRAF status. PET/CT negative [...] Eye - Last Reconciled 12/17/23 by Pamela joseosin ER 10 mg PO DAILY aspirin (Aspir-) [...] up visit and go over BRAF results COUNTS INCLUDE 234 BEDS AT THE [facility] Medical History Medical History Cardiac pacemaker Carotid stenosis Bradycardia Rheumatoid arthritis History of prostate cancer CAD (coronary artery disease) BPH (benign prostatic hyperplasia) Atrial fibrillation Hyperlipidemia HTN (hypertension) Melanoma Surgical History Surgical History H/O cystoscopy Family History Family History Brother Heart disease [facility] Relation: Brother(s) Father Heart disease 85 yrs Mother 65 yrs [facility]: Diagnosed with Cancer History of ovarian [...] findings negative for BRAF V600 Pathology review [facility] 10/28/2023: A. Skin wide local excision [...] No extracapsular extension is seen) C. Node, [place] lymph node #2 right intraparotid Metastatic malignant [...] IMPRESSION: Negative PET CT. Impression dictated by: Mino Martinez Jr.OSantos11/19/2023 1:01 PM Enhanced and unenhanced head CT [...] signed by MD Adilene Weinberg> 12/17/23 1631 [facility] Work Phone: Progress note Author Adilene Weinberg [facility] Note Date/Time October 05, 2024 3: 18pm [facility] [place] [address] Cancer Center Note Signed Patient: Nelly Hannon MR#: [id number] : 1935 Acct:[id number] Age/Sex: 89 / M Type: DEP AMB Date of Service: 10/05/24 Copies to: Steve De Paz,DO~ Assessment & [...] increase risk of recurrence. The patient's daughter who lives in [place] will be available by phone consultationat the time of his follow-up. He does have capacity for decision-making. All questions were answered over this 60-minute initial consultation. 12/17/2023: Discussion of negative BRAF status and no evidence of INTEGRITY DIRECTOR disease on contrast head CT from 11/29/2023. [...] 35-minute follow-up of results and surveillance plan. 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 He has no evidence of recurrence of disease by exam and hasscheduled dermatology follow-up in 2 weeks. Surveillance ultrasound of right neck shows no evidence of metastatic lymph nodes. Bidirectional imaging for restaging will be due in late May including head, neck, chest, abdomen, and pelvis. We will review results with him in early June with repeat CBC, CMP, and LDH. He may return sooner if concerning signs or symptoms of recurrence. Moderate complexity 35- minute follow-up. 06/21/2024: Mr. 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 No new or concerning symptoms and heremains ambulatory with normal diet. No evidence of recurrence on follow-up skin exams with Dr. Roque. Rheumatoid arthritis symptoms are stable on chronicimmunosuppression. His restaging 6-month CT head, neck, chest abdomen and pelvis shows no evidence of local recurrence of the scalp or cervical lymph nodes, no abnormalities of lungs or mediastinum, however there is a 7 mm focus of enhancement in the dome of the right hepatic lobe that is indeterminate for potential metastatic disease versus flash filling hemangioma or tumor of hepatocellular origin. Ideally we would obtain MRI of the liver for further evaluation, however the patient has a non-MRI compatible pacemaker, therefore wewill order PET/CT for surveillance. We will review these results in the next 2 to 3 weeks after studies completed. May consider following alpha- fetoprotein aswell if abnormality is noted on PET/CT. Otherwise we will continue surveillancewith neck ultrasound in September 2024 if no recurrence on PET/CT. Moderate complexity 35-minute follow-up. 07/06/2024: PET/CT was ordered due to 7 mm lesion on imaging that did not show any evidence of FDG avidity in the liver. No obvious signs of recurrence by exam. We discussed these findings with the patient and his daughter. Plan willbe to continue surveillance by exam and labs with cervical ultrasound in 3 months, then 6-month follow-up with repeat CT chest abdomen pelvis to compare the questionable 7 mm lesion. If he does have increasing LFTs or signs of recurrence we will repeat PET/CT. This is a moderate complexity 35-minute follow-up to review results. 10/05/2024: Patient has followed regularly with dermatology and does not have any new concerning skin lesions. No masses of the right parotid surgical bed or neck. Surveillance ultrasound shows no masses or adenopathy. He will follow-upin January 2025 for exam and bidirectional imaging with CT face, neck, chest abdomen and pelvis with the same labs. He may return sooner if new issues arise. This is a moderate complexity 35-minute follow-up to review exam and ultrasound. (2) Abnormal computerized axial tomography of liver: Plan: As noted above there is a 7 mm focus of enhancement in the dome of the right hepatic lobe noted on CT abdomen and pelvis from 06/12/2024. Will evaluate with PET/CT since MRI cannot be performed due to pacemaker. Follow-up results in 2 to 3 weeks. 07/06/2024: Follow-up PET/CT shows no FDG avidity. Defer next surveillance imaging for 6 months (January 2025) with CT face, neck, chest abdomen pelvis unless new symptoms arise. 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 No recent issues but cannot have MRI due to pacemaker in place. (4) Rheumatoid arthritis: Plan: Patient reports he has [...] every 2 weeks to assess his tolerance. (5) History of prostate cancer: Plan: Remote history of prostate cancer 2009 status post brachytherapy. Most recent PSA in May 2023 was undetectable. Nocturia about once each evening but no recent prostate symptoms. (6) Encounter for coordination of complex care: Plan: Decision for observation only made with patient and daughter at phone follow-up 12/17/2023. The patient's son-in-law was present with him at 06/21/2020 for follow-up, then daughter was with him 07/06/2020 for follow-up to assist with history. Discussion of symptoms and surveillance CT and subsequent PET/CT in lieu of MRI due to pacemaker in place. Okay for next surveillance imaging with CT with only. Orders: Orders CT chest w con 3 Months 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, Z01.89 - Encounter for other specified special examinations CT abdomen pelvis w con 3 Months 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, Z01.89 - Encounter for other specified special examinations LDH Lactate Dehydrogenase 3 Months 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 CT soft tissue neck w con 3 Months 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, Z01.89 - Encounter for other specified special examinations CT head/brain wo/w con 3 Months 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, Z01.89 - Encounter for other specified special examinations Complete Blood Count Auto Diff 3 Months C43.4 - Malignant melanoma of scalp andneck Comprehensive Metabolic Panel 3 Months 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 Patient Instructions: Scans and labs as ordered Early January follow up after with Dr Weinberg. CHEMO PLAN No Active Chemotherapy History of Present Illness HPI 10/05/2024: Nelly is here with his daughter by telephone to review surveillance cervical ultrasound. He continues routine follow-up with dermatology and ENT with no new lesions from prior right parotid gland about one year ago. Stable xerostomia and no other new symptoms or concerning nodules. CBC, CMP, and LDH are unremarkable--hemoglobin relatively stable at 10.5 and platelets 191,000. Ultrasound of neck shows no worrisome masses or adenopathy. Next followup in early January with CT face, neck, chest, abdomen, and pelvis for bidirectional surveillance and continue followup with dermatology and ENT as directed. Moderate complexity 35 minute followup. 07/06/2024: Nelly presents with his daughter for 3-week follow-up to review PET/CTfor evaluation of the 7 mm enhancing lesion of the right hepatic lobe. MRI of liver could not be performed due to presence of pacemaker. No interval changes in symptoms since last visit 3 weeks ago. He still has healing areas from priorcryotherapy to dermatologic lesions. His PET/CT images and reports were reviewed showing negative PET/CT and no evidence of uptake in the liver. Since PET/CT did not show any obvious lesions, he will follow-up as previously scheduled in September 2024 with surveillance cervical ultrasound, CBC, CMP, LDH,and exam. He will return sooner if new issues arise. Moderate complexity 35-minute follow-up of PET/CT and discussion of continued observation. 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 Continues Arava and hydroxychloroquine therapy for rheumatoid arthritis without exacerbation recently. Has followup with Dr. Roque of dermatology at the end of this month--he states he was last seen by dermatology about 2 months ago and had somelesions burned off but no new concerning melanoma dislocations. He has no worsening fatigue, no worsening of ptosis of his right upper eyelid (he is scheduled to follow-[facility] with [facility] in May 2025 for possible procedure to fix this ptosis). No scalp pain at the area of his prior surgery. We reviewed his laboratory showing mild anemia but no abnormalities ofrenal or hepatic function. CT of the head shows age-related atrophy and chronicmicrovascular disease but no intracranial findings for evidence of local recurrence of the scalp. CT of the neck shows no malignant adenopathy or other concerning findings for metastatic disease. CT of the chest abdomen pelvis shows no abnormalities of the lung parenchyma or mediastinum or thyroid, howeverthere is a 7 mm focus of enhancement in the dome of the right hepatic lobe. Thepatient has a pacemaker in place and we will determine whether this can be evaluated by MRI with his pacemaker. Metastatic disease is considered although flash filling hemangioma or tumor of hepatocellular origin are also possibilities. If he is unable to have contrast-enhanced MRI, we may readdress her PET/CT although 7 mm lesion may be below the level of detection. We will contact the patient to coordinate MRI of the liver if possible and we will see him thereafter to review results. If MRI unremarkable I will see him in September with neck ultrasound for surveillance. No other evidence of recurrenceon exam. The patient has capacity for decision making and his son-in-law was present to assist with memory of recommendations. Moderate complexity [id number]. 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 No change in his Arava and hydroxychloroquine therapy for rheumatoid arthritis and no recent clinical flare. He denies any pain or any change of mild ptosis of the right eye. No change in postoperative numbness. No new skin lesions are seen and he has follow-up with Dr. Roque of dermatology in 2 weeks for full body skin exam. Nopalpable adenopathy or neck pain. Ultrasound of right neck reviewed from 03/14/2024 showing no abnormal adenopathy. Plan for routine follow- up with me in3 months after CT head neck chest abdomen and pelvis for bidirectional imaging restaging. He may return sooner if new issues arise. Moderate complexity 35-minute follow-up to review exam and restaging ultrasound. 12/17/2023: Nelly presents unaccompanied but his daughter [...] versus observation. 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 Bedocs in dermatology. 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 He was referred to [facility] head neck oncologic surgery. On 10/28/2023 [...] specimen and this will be requested from [facility]. Given his history of rheumatoid arthritis [...] at that time. She lives in the [facility] [place] and will be available by [email or web address] for his follow-up appointment, hopefully within the [...] 2. Discussion of adjuvant options 11/24/2023 at [facility]. Negative BRAF status. PET/CT negative for distant metastatic disease, no disease noted on CT head. -- 12/17/2023: Decision against active therapy due to his known history of rheumatoid arthritis. Will follow with every 3-month surveillance. Intake Vitals/Pain Assessment 10/05/24 14:52 Height 5 ft 10 in Weight 74.389 kg BMI 23.5 Body Fat % 42.87 BP 167/73 H Blood Pressure Location Lt brachial Position Sitting Temp 97.8 F Temp Source Temporal Pulse 66 Pulse Source NIBP Respiration 16 Pulse Oximetry (%) 98 Oxygen Delivery Method room air Are you having pain? No Intake Visit Reasons: Follow Up, follow up visit Accompanied by: Self Allergies latex Allergy (Unknown, Verified 10/05/24 14:57) Rash Penicillins Allergy (Unknown, Verified 10/05/24 14:57) Swelling of the Eye - Last Reconciled 10/05/24 by SILVIA Alexandra alfuzosin ER 10 mg PO DAILY amlodipine 2.5 mg PO DAILY 90 days atorvastatin 40 mg PO DAILY calcium carbonate-vitamin D3 500 mg-3.125 mcg (125 unit) (Calcium) 1 tab PO DAILY cholecalciferol (vitamin D3) (Vitamin D3) 1 tab PO DAILY ferrous sulfate (iron) 1 tab PO DAILY fexofenadine (Ramona Hives) 180 mg PO DAILY furosemide 40 mg PO DAILY hydroxychloroquine 200 mg PO BID leflunomide 20 mg PO .qod losartan 50 mg PO DAILY metoprolol succinate ER 75 mg (1.5 x 50 mg) PO DAILY 90 days nitroglycerin (Nitrostat) 0.4 mg sublingual DIRECTED spironolactone Take 1 tablet by mouth once daily warfarin 5 mg PO DAILY Gastrointestinal Is the patient taking opioids for pain control?: No Falls Fall Precaution Measures Taken: Patient in chair Nurse's Note: Patient is here today for a follow up visit and go over labs and extremity Ultrasound. COUNTS INCLUDE 234 BEDS AT THE [facility] Medical History Medical History Medicare annual wellness visit, subsequent Thrombocytopenia Ischemic cardiomyopathy Echo: WMAT80-58%, RACHAEL, RV dilated, RVSP 72, bioprosthetic MV - 05/2024 Iron deficiency anemia Chronic venous insufficiency Autoimmune thyroiditis Hypercholesterolemia Anemia ASHD (arteriosclerotic heart disease) Cardiac pacemaker Carotid stenosis Bradycardia Rheumatoid arthritis History of prostate cancer CAD (coronary artery disease) BPH (benign prostatic hyperplasia) Atrial fibrillation Hyperlipidemia HTN (hypertension) Melanoma Surgical History Surgical History H/O colonoscopy (~2015) H/O mitral valve replacement Hx of CABG H/O bilateral cataract extraction H/O cystoscopy (~2016) 2015, 2016 Family History Family History Brother Heart disease [...] night sweats. HEAD AND NECK: Positive for well-healed scalp wound and now minimal postop ptosis of right eyelid. No periorbital edema. Negative for changes [...] history of transfusion or thromboembolic disease. Daughter previously noted he tends to have mild anemia but has not had a workup for this. Also on prior labs he has borderline thrombocytopenia (may be due to Arava). ALLERGY: Negative for environmental allergies and food allergies. Physical Exam EXAM ECOG performance status 2, pain 0/10 CONSTITUTIONAL: The patient is in no acute distress. HEAD / FACE: Normocephalic. Well-healed right frontal scalp incision without suspicious areas for recurrence. No associated erythema or pain. Status post right parotidectomy, well-healed. EYES: Pupils are equal and reactive to light. Conjunctivae and lids are benign in appearance. Ocular movement intact. EARS: Hearing grossly intact. NOSE / MOUTH / THROAT: Nose, mouth, [...] BACK / SPINE: The back is nontender. MUSCULOSKELETAL: Normal musculature, no obvious joint deformities or abnormalities, mildly limited range of motion wrist and MCP joints. EXTREMITIES: No edema, cyanosis or clubbing. No Kodak sign. NEUROLOGICAL: Alert and oriented. Cranial nerves intact. No gross motor or sensory deficits. PSYCHIATRIC: No anxiety or evidence of depression. Results - [facility] ([facility] LAB RESULTS Corrected WBC 5.4 X10E3/uL (4.1-10.5) 10/02/24 13:51 4 Hgb 10.5 g/dL (13.0-17.0) L 10/02/24 13:51 4 Hct 31.0 % (38.8-50.0) L 10/02/24 13:51 10/02/24 MCV 95.1 fl (83.5-101) 10/02/24 13:51 10/02/24 RDW 14.4 % (12.0-14.8) 10/02/24 13:51 10/02/24 Plt Count 131 x10E3/uL (150-450) L 10/02/24 13:51 Sodium 140 mmol/L (136-145) 10/02/24 13:51 10/02/24 Potassium 4.3 mmol/L (3.5-5.1) 10/02/24 13:51 10/02/24 BUN 21 mg/dL (7-25) 10/02/24 13:51 10/02/24 Creatinine 1.27 mg/dL (0.70-1.30) 10/02/24 13:51 10/02/24 Glucose 107 mg/dL (70-100) H 10/02/24 13:51 10/02/24 Est GFR (CKD-EPI) 54.679 mL/Min 10/02/24 13:51 10/02/24 Calcium 9.4 mg/dL (8.6-10.3) 10/02/24 13:51 10/02/24 Total Bilirubin 0.7 mg/dl (0.3-1.0) 10/02/24 13:51 10/02/24 AST 22 U/L (13-39) 10/02/24 13:51 10/02/24 ALT 32 U/L (7-52) 10/02/24 13:51 10/02/24 Alkaline Phosphatase 63 U/L (34-104) 10/02/24 13:51 10/02/24 Total Protein 6.1 gm/dL (6.4-8.9) L 10/02/24 13:51 10/02/24 Albumin 4.2 gm/dL (3.5-5.7) 10/02/24 13:51 10/02/24 Lactate Dehydrogenase 215 U/L (140-271) 10/02/24 13:51 4 RADIOLOGY/IMAGING RESULTS CT BRAIN WITHOUT AND WITH INTRAVENOUS CONTRAST: CLINICAL HISTORY: History of malignant melanoma of the head. COMPARISON: 11/29/2023 TECHNIQUE: Contiguous axial images were obtained through the brain both before and after intravenous administration of 90 mL of Isovue-300. This CT exam was performed using one or more following dose reduction techniques: Automated exposure control, adjustment of the mA and/or kV according to patient size, or use of iterative reconstruction technique. FINDINGS: Generalized atrophy is again seen. The ventricles are within normal limits for size and position. Similar chronic microvascular changes are noted. There are no developing areas of abnormal attenuation or enhancement. There is no hemorrhage, mass effect or extra-axial collections. The imaged paranasal sinuses and mastoid air cells are clear. There is vertebral artery and carotid siphon plaque. CT/CT head/brain wo/w con IMPRESSION: ATROPHY AND CHRONIC MICROVASCULAR DISEASE. NO ACUTE INTRACRANIAL FINDINGS OR SUSPECTED METASTATIC DISEASE.. Impression dictated by: Hafsa Keen M.D.06/12/2024 11:[address] soft tissue neck w con 06/12/2024 8:42 AM SIGNS AND SYMPTOMS: Malignant melanoma of scalp and neck CONTRAST: 90 mL of intravenous Isovue-300 TECHNIQUE: Multidetector CT axial slices of the soft tissues of the neck were obtained with IV contrast. Sagittal and coronal reformats were reconstructed. CTwas performed with one or more of the following dose reduction techniques: Automated exposure control, adjustment of the mA and/or kV according to patient size, or use of iterative reconstruction technique. COMPARISON: 11/19/2023 FINDINGS: Soft tissues of the orbits are within normal limits. The soft tissues of the infratemporal fossa fossa structures show no acute abnormality. Mucosal surfacesof the nasopharynx, oropharynx, hypopharynx, glottic, and subglottic airways aregrossly unremarkable. The parotid glands, submandibular, and the thyroid gland are within normal limits. The carotid and jugular circulations are within normal limits. The visualized lung parenchyma shows no acute pathology. No acute bony abnormalities are appreciated. Degenerative changes are present inthe cervical spine. The skull base, craniocervical junction, atlantoaxial jointsare within normal limits. The paranasal sinuses are within normal limits. CT/CT soft tissue neck w con IMPRESSION: No evidence of mass, soft tissue swelling, or abnormality enhancement. Impression dictated by: Tereso Lynn M.D.06/12/2024 12:[address] chest w con 06/12/2024 7:29 AM SIGN AND SYMPTOMS: ^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 Multiplanar reformats were performed and viewed on a separate workstation and reviewed to further define anatomy and possible pathology. CT was performed with one or more of the following dose reduction techniques: Automated exposure control, adjustment of the mA and/or kV according to patient size, or use of iterative reconstruction technique. COMPARISON: 11/19/2023. FINDINGS: Lower neck: Thyroid gland within normal limits, no supraclavicle adenopathy. Vessels: Atherosclerotic changes are noted in the thoracic aorta, coronary arteries, and at the origins of the great vessels. There is no evidence of pulmonary motion. Mediastinum and [place]: Within normal limits. Heart: There is cardiomegaly. No pericardial effusion. 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 Pacer leads are present. Airways: Within normal limits Lungs: Mild linear scarring is noted in the lung bases. Pleura: Within normal limits. Chest Wall: Within normal limits. Upper Abdomen: There is a 6 mL matter enhancing focus in the dome of the right hepatic lobe. Bones: There is evidence of prior sternotomy. Degenerative changes are noted in the thoracic spine. Remote healed right anterior fractures are noted. CT/CT chest w con IMPRESSION: No evidence of pulmonary metastatic disease. There is redemonstration of cardiomegaly. There is a 6 mL matter enhancing focus in the dome of the right hepatic lobe. Please see separately dictated abdomen and pelvis CT for further detail. Impression dictated by: Tereso Lynn M.D.06/12/2024 1:[address] abdomen pelvis w con 06/12/2024 7:29 AM SIGNS AND SYMPTOMS: Malignant melanoma of scalp and neck TECHNIQUE: Multidetector ct axial images of the abdomen and pelvis were obtainedwith IV contrast. Multiplanar reformats were performed and reviewed to further define anatomy and possible pathology. CT was performed with one or more of thefollowing dose reduction techniques: Automated exposure control, adjustment of the mA and/or kV according to patient size, or use of iterative reconstruction technique. COMPARISON: None. FINDINGS: Lower Chest: Atherosclerotic changes are noted in the coronary arteries and thoracic aorta. There is cardiomegaly. ABDOMEN: Liver: There is a 7 mm focus of enhancement in the dome of the right hepatic lobe. Bile Ducts: Normal caliber. Gallbladder: No calcified gallstones. Normal caliber wall. Pancreas: Within normal limits. Spleen: Within normal limits. Adrenals: Within normal limits. Kidneys: There is a simple cyst in the right renal cortex requiring no further follow-up. Pelvis: Reproductive Organs: Radiation seeds are noted in the prostate. Ureters: Within normal limits. Bladder: Within normal limits. Bowel: Normal caliber. There is a normal appendix in the right lower quadrant. Mesenteric Lymph Nodes: No enlarged mesenteric lymph nodes. Peritoneum: No ascites or free air, no fluid collection. Vessels: Atherosclerotic changes are noted in the abdominal aorta and its branches. Retroperitoneum: Within normal limits. Abdominal Wall: Within normal limits. Bones: Degenerative changes are noted in the thoracolumbar spine, hips, and sacral iliac joints. CT/CT abdomen pelvis w con IMPRESSION: There is a 7 mm focus of enhancement in the dome of the right hepatic lobe.Metastatic disease should be considered. Other etiologies may include a flash filling hemangioma or tumor of hepatocellular origin. Follow-up with contrast-enhanced MRI of the liver may be helpful. Additional repeat imaging with PET/CT may also be helpful. Graph no additional evidence of metastatic disease. No acute intra-abdominal pathology is noted otherwise. Impression dictated by: Tereso Lynn M.D.06/12/2024 1:15 PM Social Determinants of Health Screening Social determinants of health last assessed in clinic: 10/06/24 Will the patient participate in the screening?: Yes Do you worry about having a steady place to live?: No In the past 12 months, have you had to go without electric, gas, oil, or water in your home?: No Have you or anyone in your house had to go without enough food to eat?: No Has lack of reliable transportation kept you from medical appointments or from doing things needed for daily living?: No Has anyone in your support network made you feel unsafe for any reason?: No Does the patient want assistance with any of the above?: No Dictated By: Adilene Weinberg MD DD/ [id number] Signed By: <Electronically signed by MD Adilene Weinberg> 10/06/24 1322 [facility] Work Phone: Reason for referral (narrative)* Consultation (Routine) - Authorized Specialty Diagnoses / Procedures Referred By Faviola t Referred To Contact Hematology and Oncology Diagnoses Malignant melanoma of forehead (CMS/HCC) [place] [address] [address] Department [place] [address] Adilene Weinberg MD [address] [place] [address] Referral ID Status Reason Start Date Expiration Date Visits Requested Visits Authorized [id number] Authorized Specialty Services Required 11/08/2023 11/07/2024 1 1 * Imaging (Routine) - Pending Review Specialty Diagnoses / Procedures Referred By Faviola heredia Referred To Contact Radiology Diagnoses Malignant melanoma of forehead (CMS/HCC) Procedures NM PET [place] [address] [address] Department [place] [address] Referral ID Status Reason Start Date Expiration Date Visits Requested Visits Authorized [id number] Pending Review Perform Procedure 11/08/2023 11/07/2024 3 3 [facility] Work Phone: Summary Purpose Family History [...] Hypercholesterolemia Melanoma of head Rheumatoid arthritis Thrombocytopenia Chief Complaint 1 month Follow Up melanoma Reason for Visit Anemia ASHD (arteriosclerotic heart disease) Atrial fibrillation HTN (hypertension) Hypercholesterolemia Melanoma of head Rheumatoid arthritis Thrombocytopenia Abnormal computerized axial tomography of liver Cardiac pacemaker Encounter for coordination of complex care History of prostate cancer Melanoma of head Rheumatoid arthritis Chief Complaint 1 month Follow Up melanoma M05.79 Z79.899 Reason for Visit Anemia ASHD (arteriosclerotic heart disease) Atrial fibrillation HTN (hypertension) Hypercholesterolemia Melanoma of head Rheumatoid arthritis Thrombocytopenia Abnormal computerized axial tomography of liver Cardiac pacemaker Encounter for coordination of complex care History of prostate cancer Melanoma of head Rheumatoid arthritis Chief Complaint 1 month Follow Up M05.79 Z79.899 Follow Up after PET melanoma Reason for Visit Anemia ASHD (arteriosclerotic heart disease) Atrial fibrillation HTN (hypertension) Hypercholesterolemia Melanoma of head Rheumatoid arthritis Thrombocytopenia Abnormal computerized axial tomography of liver Cardiac pacemaker Encounter for coordination of complex care History of prostate cancer Melanoma of head Rheumatoid arthritis Abnormal computerized axial tomography of liver Cardiac pacemaker Encounter for coordination of complex care History of prostate cancer Melanoma of head Rheumatoid arthritis Chief Complaint 1 month Follow Up M05.79 Z79.899 Follow Up after PET melanoma wellness Reason for Visit Anemia ASHD (arteriosclerotic heart disease) Atrial fibrillation HTN (hypertension) Hypercholesterolemia Melanoma of head Rheumatoid arthritis Thrombocytopenia Abnormal computerized axial tomography of liver Cardiac pacemaker Encounter for coordination of complex care History of prostate cancer Melanoma of head Rheumatoid arthritis Abnormal computerized axial tomography of liver Cardiac pacemaker Encounter for coordination of complex care History of prostate cancer Melanoma of head Rheumatoid arthritis Anemia ASHD (arteriosclerotic heart disease) Atrial fibrillation HTN (hypertension) Hypercholesterolemia Medicare annual wellness visit, subsequent Melanoma of head Rheumatoid arthritis Thrombocytopenia Chief Complaint Follow Up M05.79 Z79.899 Follow Up after PET melanoma wellness allergy shot Reason for Visit Abnormal computerize d axial tomography of liver Cardiac pacemaker Encounter for coordination of complex care History of prostate cancer Melanoma of head Rheumatoid arthritis Abnormal computerized axial tomography of liver Cardiac pacemaker Encounter for coordination of complex care History of prostate cancer Melanoma of head Rheumatoid arthritis Anemia ASHD (arteriosclerotic heart disease) Atrial fibrillation HTN (hypertension) Hypercholesterolemia Medicare annual wellness visit, subsequent Melanoma of head Rheumatoid arthritis Thrombocytopenia Chief Complaint Admit Date wellness July 20, 2024 8 :55am allergy shot August 08, 2024 1 1:11am CC Adult Risk Stratification August 1:14pm C43.4 October 02, 2024 1:19pm Follow Up October 05, 2024 2: 50pm melanoma October 05, 2024 2: 55pm Reason for Visit Admit Date Anemia July 20, 2024 8 :55am ASHD (arteriosclerotic heart disease) Oc tober 2023 8:55am Atrial fibrillation July 20, 2024 8 :55am HTN (hypertension) July 20, 2024 8 :55am Hypercholesterolemia July 20, 2024 8:55am Medicare annual wellness visit, subseque nt July 20, 2024 8:55am Melanoma of head July 20, 2024 8 :55am Rheumatoid arthritis July 20, 2024 8:55am Thrombocytopenia July 20, 2024 8 :55am Abnormal computerized axial tomography o f liver October 05, 2024 2:50pm Cardiac pacemaker October 05, 2024 2: 50pm Encounter for coordination of complex ca re October 05, 2024 2:50pm History of prostate cancer October 05, 2024 2:50pm Melanoma of head October 05, 2024 2: 50pm Rheumatoid arthritis October 05, 2024 2 :50pm Chief Complaint Admit Date allergy shot August 08, 2024 1 1:11am CC Adult Risk Stratification August 1:14pm C43.4 October 02, 2024 1:19pm Follow Up October 05, 2024 2: 50pm melanoma October 05, 2024 2: 55pm M05.79 October 30, 2024 1 2:59pm Reason for Visit Admit Date Abnormal computerized axial tomography o f liver October 05, 2024 2:50pm Cardiac pacemaker October 05, 2024 2: 50pm Encounter for coordination of complex ca re October 05, 2024 2:50pm History of prostate cancer October 05, 2024 2:50pm Melanoma of head October 05, 2024 2: 50pm Rheumatoid arthritis October 05, 2024 2 :50pm Chief Complaint Admit Date C43.4 October 02, 2024 1:19pm Follow Up October 05, 2024 2: 50pm melanoma October 05, 2024 2: 55pm M05.79 October 30, 2024 1 2:59pm 4 month f/u November 20, 2024 8:58am Reason for Visit Admit Date Abnormal computerized axial tomography o f liver October 05, 2024 2:50pm Cardiac pacemaker October 05, 2024 2: 50pm Encounter for coordination of complex ca re October 05, 2024 2:50pm History of prostate cancer October 05, 2024 2:50pm Melanoma of head October 05, 2024 2: 50pm Rheumatoid arthritis October 05, 2024 2 :50pm Allergic rhinitis November 20, 2024 8:58am ASHD (arteriosclerotic heart disease) Fe bruary 2024 8:58am Atrial fibrillation November 20, 2024 8:58am Dermatitis, dyshidrotic November 20, 2 025 8:58am History of prostate cancer November 8:58am HTN (hypertension) November 20, 2024 8:58am Hypercholesterolemia November 20, 2024 8:58am Hyperlipidemia November 20, 2024 8:58am Ischemic cardiomyopathy November 20, 2 025 8:58am Melanoma of head November 20, 2024 8:58am Rheumatoid arthritis November 20, 2024 8:58am Reason for Referral Specialty Diagnoses / Procedures Referred By Faviola t Referred To Contact Radiology Diagnoses Malignant melanoma of forehead (CMS/HCC) Procedures [place] [address] [facility] Department [place] [address] Referral ID Status Reason Start Date Expiration Date Visits Requested Visits Authorized [id number] Pending Review Perform Procedure 10/08/2023 10/07/2024 2 2 Additional Source Comments (unrecognized sect ion and content) No Status Records FoundNo Status Records FoundNo Status Records FoundNo Status Records FoundNo Status Records FoundNo Status Records FoundNo Status Records FoundNo Status Records FoundNo Status Records Found INFORMATION SOURCE (unrecogn ized section and content) DATE CREATED AUTHOR 09/16/2021 [facility] DATE CREATED AUTHOR AUTHOR'S ORGANIZ ATION 03/12/2023 [facility] DATE CREATED AUTHOR AUTHOR'S ORGANIZ ATION 02/18/2024 [facility] EPIC DATE CREATED AUTHOR AUTHOR'S ORGANIZ ATION 03/01/2024 [facility] DATE CREATED AUTHOR AUTHOR'S ORGANIZ ATION 06/25/2024 [facility] DATE CREATED AUTHOR AUTHOR'S ORGANIZ ATION 08/06/2024 [facility] DATE CREATED AUTHOR AUTHOR'S ORGANIZ ATION 11/09/2024 [facility] DATE CREATED AUTHOR AUTHOR'S ORGANIZ ATION 11/30/2024 [facility] DATE CREATED AUTHOR AUTHOR'S ORGANIZ ATION 12/07/2024 [facility] REASON FOR VISIT (unrecogniz ed section and content) Reason Comments New Patient Visit Specialty Diagnoses / Procedures Referred By Faviola t Referred To Contact Diagnoses 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) [C43.39] Procedures ND EXCISION MALIGNANT LESION F/E/E/N/L >4.0 CM ND DERMAL AUTOGRAFT F/S/N/H/F/G/M/D GT 1ST [address] GUIDANCE NEEDLE PLACEMENT ( sln inj @ 7:00 am ) Excision Lesion Skin Head/Neck Excision Full Thickness Skin Graft Torso Biopsy Lymph Node Head/[place] [address] [address] Department [place] [address] [place] [address] [place] [address] Referral ID Status Reason Start Date Expiration Date Visits Re quested Visits Authorized [id number] 1 1 Reason Comments Dermatochalasis Evaluation Reason Comments Follow-up Care Team (unrecognized sect ion and content) Team Status: Active Member Role Status Dates Steve De Paz DO Primary Care Provider Active Team Status: Inactive Member Role Status Dates Steve De Paz DO Primary Care Provide r, Attending Provider Active Start: July 20, 2024 End: July 20, 2024 Team Status: Inactive Member Role Status Nataly De Paz DO Primary Care Provide r, Attending Provider Active Start: August 08, 2024 End: August 08, 2024 Team Status: Active Member Role Status Nataly De Paz DO Primary Care Provide r, Attending Provider Active Start: August 09, 2024 Team Status: Inactive Member Role Status Nataly De Paz DO Primary Care Provider Active Start: October 02, 2024 End: October 02, 2024 Adilene Weinberg MD Attending Provider Active Start: October 02, 2024 End: October 02, 2024 Team Status: Inactive Member Role Status Nataly De Paz DO Primary Care Provider Active Start: October 05, 2024 End: October 05, 2024 Adilene Weinberg MD Attending Provider Active Start: October 05, 2024 End: October 05, 2024 Team Status: Active Member Role Status Nataly De Paz DO Primary Care Provider Active Start: October 05, 2024 Adilene Weinberg MD Attending Provider Active Start: October 05, 2024 Elkin Holly MD Referring Provider Active S tart: October 05, 2024 Team Status: Active Member Role Status Nataly De Paz DO Primary Care Provider Active Start: May 10, 2024 Cristela Winter MD Attending Provider Active St art: May 10, 2024 Team Status: Active Member Role Status Nataly De Paz DO Primary Care Provider Active Start: June 07, 2024 ROLAND Raygoza Attending Provider Active Start: June 07, 2024 Team Status: Inactive Member Role Status Nataly De Paz DO Primary Care Provider Active Start: June 21, 2024 End: June 21, 2024 Adilene Weinberg MD Attending Provider Active Start: June 21, 2024 End: June 21, 2024 Team Status: Inactive Member Role Status Nataly De Paz DO Primary Care Provider Active Start: July 04, 2024 End: July 04, 2024 Michele Arteaga MD Attending Provider Active St art: July 04, 2024 End: July 04, 2024 Team Status: Inactive Member Role Status Nataly De Paz DO Primary Care Provider Active Start: July 06, 2024 End: July 06, 2024 Adilene Weinberg MD Attending Provider Active Start: July 06, 2024 End: July 06, 2024 Team Status: Active Member Role Status Nataly De Paz DO Primary Care Provider Active Start: July 06, 2024 Adilene Weinberg MD Attending Provider Active Start: July 06, 2024 Elkin Holly MD Referring Provider Active S tart: July 06, 2024 Team Status: Inactive Member Role Status Dates Steve De Paz DO Primary Care Provide r, Attending Provider Active Start: April 25, 2024 End: April 25, 2024 Team Status: Active Member Role Status [...] Paz DO Primary Care Provider Active Michele Artaega MD Attending Provider Active Team Status: Inactive Member Role Status Dates Steve De Paz DO Primary Care Provider Active Jose R Cruz MD Attending Provider Active [employer] Specialist Relationship Specialty Start Date End Date Steve De Paz DO [address] [place] [address] [place] [address] PCP - General Internal Medicine 10/28/23 [employer] Specialist Relationship Specialty Start Date End Date Steve De Paz DO [address] [place] [address] [place] [address] PCP - General Internal Medicine 10/28/23 [employer] Specialist Relationship Specialty Start Date End Date Steve De Paz DO [address] [place] [address] [place] [address] PCP - General Internal Medicine 10/28/23 Team [...] Team Status: Active Member Role Status Dates Setve De Paz DO Primary Care Provider Active [...] December 27, 2023 End: December 27, 2023 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 Start Date End Date Steve De Paz DO PCP - General Internal Medicine 10/28/23 [employer] Flooring Specialist Relationship Specialty Start Date End Date Steve De Paz MD [address] [place] [id number] PCP - General Internal Medicine 11/04/23 Tereso Ram OD [address] [place] [address] Referring Physician Optometry 02/16/24 [employer] Flooring Specialist Relationship Specialty Start Date End Date Steve De Paz MD [address] [place] [id number] PCP - General Internal Medicine 11/04/23 Tereso Ram OD [address] [place], [place] [address] Referring Physician Optometry 02/16/24 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 Start Date End Date Steve De Paz MD [address] [place] [id number] PCP - General Internal Medicine 11/04/23 Tereso Ram OD [address] [place], [place] [id number] Referring Physician Optometry 02/16/24 Team Status: Inactive Member Role Status Dates Steve De Paz DO Primary Care Provider Active Start: October 30, 2024 End: October 30, 2024 Michele Arteaga MD Attending Provider Active St art: October 30, 2024 End: October 30, 2024 Team Status: Inactive Member Role Status Dates Steve De Paz DO Primary Care Provide r, Attending Provider Active Start: November 20, 2024 End: November 20, 2024 Goals (unrecognized section and content) Goals [...] or prosecute any alcohol or drug abuse patient.[facility] FOR RECORDS PERTAINING TO PATIENTS WHO ARE [...] BE BASED ON THE PRIMARY CLINICAL RECORDS. [employer] [facility]. provides no warranty or guarantee of the accuracy or completeness of information in this document.
[2024-12-15 11:32] LABS: Alanine Aminotransferase 56 U/L (16-63); Albumin Globulin Ratio 1.3; Albumin Level 3.7 g/dL (3.4-5.0); Alkaline Phosphatase 85 U/L (46-116); Anion Gap 11.9; Aspartate Amino Transferase 26 U/L (15-37); BUN Creatinine Ratio 20.4; Bilirubin Total 0.5 mg/dL (0.2-1.0); Carbon Dioxide 28.5 mmol/L (21.0-32.0); Chloride 104 mmol/L (98-107); Chol HDL Ratio 1.6; Cholesterol 107 mg/dL (<=200); Estimated GFR (African America 60 (>=60 mL/min/1.73m^2); Estimated GFR (Non-African Ame 49 (>=60 mL/min/1.73m^2); Globulin 2.9 g/dL; Glucose 94 mg/dL (74-106); HDL Cholesterol 66 mg/dL (40-60); Potassium 4.4 mmol/L (3.5-5.1); Sodium 140 mmol/L (136-145); Total Protein 6.6 g/dL (6.4-8.2); Triglycerides 31 mg/dL (<=150); VLDL CHOLESTEROL 6.2 mg/dL
== END 2024-12-15 07:24 | disposition home or self-care (01) ==
LOC: LAB 07:25
PROVIDERS: PCP Internal Medicine; Visit Provider Nurse Practitioner Family
DX: I50.41 Acute combined systolic (congestive) and diastolic (congestive) heart failure (principal); I27.20 Pulmonary hypertension, unspecified
CPT/HCPCS: 36415; 80053; 80061; 83880

== ENCOUNTER 2025-01-02 05:53 | Outpatient (RCR) | payer MEDICARE, BC, SELFPAY | END 2025-01-31 16:08 | disposition home or self-care (01) | LOC: MM 05:53 | PROVIDERS: PCP Internal Medicine; Visit Provider Internal Medicine | DX: Z51.81 Encounter for therapeutic drug level monitoring (principal); Z79.01 Long term (current) use of anticoagulants; I48.91 Unspecified atrial fibrillation | CPT/HCPCS: 85610; G0463 ==

== ENCOUNTER 2025-01-05 12:42 | Outpatient (OUT) | payer MEDICARE, BC, SELFPAY | END 2025-01-05 12:43 | disposition home or self-care (01) | LOC: RAD 12:44 | PROVIDERS: PCP Internal Medicine; Visit Provider Internal Medicine | DX: R60.0 Localized edema (principal); M71.22 Synovial cyst of popliteal space [Baker], left knee | CPT/HCPCS: 93971 ==

== ENCOUNTER 2025-01-22 08:18 | Outpatient (OUT) | payer MEDICARE, BC, SELFPAY ==
[2025-01-22 09:35] LABS: Anion Gap 12.5; BUN Creatinine Ratio 16.3; Calcium 9.1 mg/dL (8.5-10.1); Carbon Dioxide 28.8 mmol/L (21.0-32.0); Chloride 106 mmol/L (98-107); Estimated GFR (African America >60 (>=60 mL/min/1.73m^2); Estimated GFR (Non-African Ame 50 (>=60 mL/min/1.73m^2); Glucose 92 mg/dL (74-106); Potassium 4.3 mmol/L (3.5-5.1); Sodium 143 mmol/L (136-145)
== END 2025-01-22 08:19 | disposition home or self-care (01) ==
LOC: LAB 08:20
PROVIDERS: PCP Internal Medicine; Visit Provider Nurse Practitioner Family
DX: R60.9 Edema, unspecified (principal)
CPT/HCPCS: 36415; 80048

== ENCOUNTER 2025-01-26 08:19 | Outpatient (OUT) | payer MEDICARE, BC, SELFPAY ==
[2025-01-26 08:32] LABS: Basophils Percent Auto 0.7 % (0.2-2.0); Eosinophils Absolute Auto 0.1 10^3/uL (0.0-0.7); Eosinophils Percent Auto 1.8 % (0.9-7.0); Hematocrit 27.8 % (42.0-54.0); Hemoglobin 9.2 g/dL (14.0-18.0); Immature Granulocytes Abs Auto 0.01 10^3/uL (0.00-0.03); Immature Granulocytes Pct Auto 0.2 % (0.0-0.5); Lymphocytes Absolute Auto 0.8 10^3/uL (1.2-3.8); Lymphocytes Percent Auto 19.1 % (20.5-60.0); Mean Corpuscular HGB Conc 33.1 g/dL (29.9-35.2); Mean Corpuscular Hemoglobin 33.2 pg (25.9-34.0); Mean Corpuscular Volume 100.4 fL (80.0-94.0); Mean Platelet Volume 9.7 fL (9.5-13.5); Monocytes Absolute Auto 0.5 10^3/uL (0.3-0.8); Monocytes Percent Auto 12.3 % (1.7-12.0); Neutrophils Absolute Auto 2.9 10^3/uL (1.4-6.5); Neutrophils Percent Auto 65.9 % (43.0-75.0); Platelet Count 120 10^3/uL (150-450); Red Blood Count 2.77 10^6/uL (4.70-6.10); Red Cell Distribution Width 13.5 % (11.0-15.0); White Blood Count 4.4 10^3/uL (4.0-11.0)
== END 2025-01-26 08:20 | disposition home or self-care (01) ==
LOC: LAB 08:20
PROVIDERS: PCP Internal Medicine; Visit Provider Internal Medicine Interventional Cardiology
DX: I50.32 Chronic diastolic (congestive) heart failure (principal); I27.20 Pulmonary hypertension, unspecified
CPT/HCPCS: 36415; 85025

== ENCOUNTER 2025-02-01 04:49 | Outpatient (RCR) | payer MEDICARE, BC, SELFPAY | END 2025-03-02 15:22 | disposition home or self-care (01) | LOC: MM 04:49 | PROVIDERS: PCP Internal Medicine; Visit Provider Internal Medicine | DX: Z51.81 Encounter for therapeutic drug level monitoring (principal); Z79.01 Long term (current) use of anticoagulants | CPT/HCPCS: 85610; G0463 ==

== ENCOUNTER 2025-03-04 08:05 | Outpatient (RCR) | payer MEDICARE, BC, SELFPAY | END 2025-03-29 14:55 | disposition home or self-care (01) | LOC: MM 08:05 | PROVIDERS: PCP Internal Medicine; Visit Provider Internal Medicine | DX: Z51.81 Encounter for therapeutic drug level monitoring (principal); Z79.01 Long term (current) use of anticoagulants; I48.91 Unspecified atrial fibrillation | CPT/HCPCS: 85610; G0463 ==

== ENCOUNTER 2025-03-09 08:29 | Outpatient (OUT) | payer MEDICARE, BC, SELFPAY ==
[2025-03-09 09:36] LABS: Anion Gap 12.2; BUN Creatinine Ratio 19.4; Calcium 9.4 mg/dL (8.5-10.1); Carbon Dioxide 31.7 mmol/L (21.0-32.0); Chloride 102 mmol/L (98-107); Estimated GFR (African America 39 (>=60 mL/min/1.73m^2); Estimated GFR (Non-African Ame 33 (>=60 mL/min/1.73m^2); Glucose 98 mg/dL (74-106); Magnesium 1.8 mg/dL (1.8-2.4); Potassium 3.9 mmol/L (3.5-5.1); Sodium 142 mmol/L (136-145)
== END 2025-03-09 08:30 | disposition home or self-care (01) ==
PROVIDERS: PCP Internal Medicine; Visit Provider Internal Medicine Interventional Cardiology
DX: I27.9 Pulmonary heart disease, unspecified (principal)
CPT/HCPCS: 36415; 80048; 83735

== ENCOUNTER 2025-03-28 08:17 | Outpatient (OUT) | payer MEDICARE, BC, SELFPAY ==
--- OUTSIDE RECORDS SUMMARY | 2025-03-14 14:45 | XMS_ITS | Encounter Summary ---
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) (Primary Dx); Pulmonary HTN (CMS/HCC); 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; Status post insertion of drug eluting coronary artery stent; PAF (paroxysmal atrial fibrillation) (CMS/HCC); 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; History of coronary artery bypass surgery Social History Tobacco Use Types Packs/Day Years Used Date Smoking Tobacco: Former Cigars Passive Smoke Exposure: Past Smokeless Tobacco: Never Alcohol Use Standard Drinks/Week Comments Not Currently 0 (1 standard drink = 0.6 oz pur e alcohol) [place] Safety & Environment Answer Date Rec orded Fear of Current or Ex-Partner Not on file Emotionally Abused Not on file 11/25/2023 Physically Abused Not on file 11/25/2023 Sexually Abused Not on file 11/25/2023 Physically or Sexually Abused Not on file Sex and Gender Information Value Date Recorded Sex Assigned at Not on file Legal Sex Male 10:09 PM EDT Gender Identity Not on file Sexual Orientation Not on file documented as of this encounter Last Filed Vital Signs Vital Sign Reading Time Taken Comments Blood Pressure 126/56 03/14/2025 2:43 PM EDT Pulse 61 03/14/2025 2:43 PM EDT Temperature - - Respiratory Rate - - Oxygen Saturation 99% 03/14/2025 2:43 PM EDT Inhaled Oxygen Concentration - - Weight 73.9 kg (163 lb) 03/14/2025 2:43 PM EDT Height 177.8 cm (5' 10 ) 03/14/2025 2:43 PM EDT Body Mass Index 23.39 03/14/2025 2:43 PM EDT documented in this encounter Progress Notes * Dylon Kate MD - 03/14/2025 2:45 PM EDT Images from the original note were not included. [place] Cardiology - [facility] Subjective Sebastian Hannon is a 89 y.o. year old male patient here today for a follow S/P RHC. Patient states hefeels dizzy when getting up patient states and when bending over for a long time he can't walk straight, patient states she does have some leg swelling. 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 He is a 89-year-old man who was recently evaluated in cardiology clinic. He has heart failure with pulmonary hypertension. 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 He has a history of coronary artery disease status post bypass surgery in the past [OLGUIN to LAD, saphenous vein graft to [id number] and 2nd obtuse marginal branch, saphenous venous graft to PDA]. In 2019 he underwent stenting of the LAD. His OLGUIN to LAD was not found to be atretic. 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 He is also status post bioprosthetic mitral valve replacement. he has been having evidence of severe pulmonary hypertension by echocardiography on repeated testing. Recently his furosemide was increased but he did not have any response to that. I proceeded with right heart catheterization on 03/01/2025 that showed moderate- severe elevation of left-sided filling pressures with moderate pulmonary hypertension. There was large V waves noted on the pulmonary capillary wedge pressure tracing. His Lasix was increased to 40 mg twice daily. Follow-up BMP showed worsening of the renal function. Today he reports that he has mild shortness of breath on exertion NYHA class II symptoms. He has bilateral lower extremity edema worse on the left. Recent duplex ruled out DVT. He says increasing thefurosemide led to an improvement in the lower extremity edema. He however feels dizzy and lightheaded. Review of Systems Cardiovascular: Positive for dyspnea on exertion and leg swelling. Hematologic/Lymphatic: Bruises/bleeds easily. Skin: Positive for color change. Neurological: Positive for dizziness and light-headedness. Objective Visit Vitals BP 126/56 (BP Location: Right arm, Patient Position: Sitting) Pulse 61 Ht 1.778 m (5' 10 ) Wt 73.9 kg (163 lb) SpO2 99% BMI 23.39 kg/m?? Smoking Status Former BSA 1.91 m?? Physical Exam Constitutional: Appearance: He is well-developed. He is not ill-appearing. HENT: Head: Normocephalic and atraumatic. Nose: Nose normal. Eyes: General: No scleral icterus. Pupils: Pupils are equal, round, and reactive to light. Neck: Thyroid: No thyromegaly. Vascular: No JVD. Cardiovascular: Rate and Rhythm: Normal rate and regular rhythm. Pulses: Radial pulses are 2+ on the right side and 2+ on the left side. Heart sounds: Normal heart sounds. No murmur heard. No friction rub. No gallop. Pulmonary: Effort: Pulmonary effort is normal. No respiratory distress. Breath sounds: Normal breath sounds. No wheezing or rales. Chest: Chest wall: No tenderness. Abdominal: General: Bowel sounds are normal. There is no distension. Palpations: Abdomen is soft. Tenderness: There is no abdominal tenderness. Musculoskeletal: General: No swelling. Cervical back: Neck supple. Right lower le+ Edema present. Left lower le+ Edema present. Skin: General: Skin is warm and dry. Neurological: General: No focal deficit present. Mental Status: He is alert and oriented to person, place, and time. Psychiatric: Mood and Affect: Mood normal. Behavior: Behavior is cooperative. Judgment: Judgment normal. Allergies Allergies Allergen Reactions Latex Hives Penicillins Other Medications Current Outpatient Medications: alfuzosin (Uroxatral) 10 mg 24 hr tablet, Take 1 tablet by mouth in the morning., Disp: , Rfl: atorvastatin (Lipitor) 40 mg tablet, Take 1 tablet (40 mg) by mouth in the morning., Disp: 90 tablet, Rfl: 3 cholecalciferol (D3-5) 5,000 Units tablet, Take 1 tablet every other day by oral route., Disp: , Rfl: ferrous sulfate 325 (65 Fe) MG tablet, Take 65 mg by mouth with breakfast., Disp: , Rfl: fexofenadine (Ramona) 180 mg tablet, Take 180 mg by mouth in the morning., Disp: , Rfl: finasteride (Proscar) 5 mg tablet, Take 1 tablet by mouth in the morning., Disp: , Rfl: hydroxychloroquine (Plaquenil) 200 mg tablet, Take 200 mg by mouth 1 (one) time each day., Disp: , Rfl: losartan (Cozaar) 50 mg tablet, Take 1 tablet (50 mg) by mouth in the morning., Disp: 90 tablet, Rfl: 3 metoprolol succinate XL (Toprol-XL) 50 mg 24 hr tablet, Take 1.5 tablets (75 mg) by mouth in the morning., Disp: 45 tablet, Rfl: 3 nitroglycerin (Nitrostat) 0.4 mg SL tablet, Place by sublingual route as needed for 10 days., Disp:, Rfl: spironolactone (Aldactone) 25 mg tablet, Take 1 tablet by mouth in the morning., Disp: , Rfl: warfarin (Coumadin) 5 mg tablet, TAKE 1 TO 1 & 1/2 (ONE TO ONE & ONE-HALF) TABLETS BY MOUTHONCE DAILY DIRECTED, Disp: 135 tablet, Rfl: 0 furosemide (Lasix) 40 mg tablet, Take 1.5 tablets once daily., Disp: , Rfl: leflunomide (Arava) 20 mg tablet, Take 1 tablet by mouth every other day. (Patient not taking: Reported on 03/14/2025), Disp: , Rfl: Recent Labs Admission on 03/01/2025, Discharged on 03/01/2025 Component Date Value INR 03/01/2025 2.9 Protime 03/01/2025 NA QC Pass/Fail 03/01/2025 Passed QC LOT # 03/01/2025 [id number] QC Expiration Date 03/01/2025 06/03/25 [id number] 03/01/2025 62.6 (A) QC Pass/Fail 03/01/2025 Passed QC LOT # 03/01/2025 [id number] QC Expiration Date 03/01/2025 73,126 SAMPLESITE 03/01/2025 nl Blood testing 04/20/2024: Hemoglobin 10, platelets 110. Blood testing 12/15/2024: Potassium 4.4, BUN 28, creatinine 1.37, EGFR 49, LFTs normal, NT proBNP 1793, triglycerides 31, cholesterol 107, HDL 66, LDL 35. Blood testing 01/22/2025: Potassium 4.3, BUN 22, creatinine 1.35, EGFR 50. CBC 01/26/2025: Hemoglobin 9.2, platelets 120. BMP : Potassium 3.9, BUN 38, creatinine 1.96, EGFR 33. Imaging and other tests Right heart catheterization 03/01/2025: Hemodynamic Data: RA: 10 RV: 56/12, 10 PA: 59/15 (34) PCWP: 26 with V-waves to 46 mmHg. [Position confirmed by obtaining saturated blood.] CO: 5.04 CI: 2.61 O2 Sat: PA sat: 63%, AO sat: 99% BP: 151/51 (81) TP PVR: 1.6 Wood units SVR: 1127 Metric units Impression/Findings: Moderate to severe elevation of left filling pressures. Mild elevation of right filling pressures. Moderate pulmonary hypertension. Low normal cardiac output and cardiac index. Uncontrolled systemic hypertension. 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 Large V-waves noted on the PCW tracing. Plan: The patient's lasix will be increased to 40 mg bid. BMP in 1 week. Follow up in Cardiology Clinic in 2-3 weeks. Depending on the clinical response, consider ISIS for evaluation of the bioprosthetic mitral valve. Left lower extremity Doppler 01/05/2025: Negative for left lower extremity DVT. Rapp's cyst measuring up to 3.7 cm. Cardiac device check 01/12/2025: THORACIC IMPEDANCE VALUES Within the normal range [employer] AP 98.0%; RVP 100.0%; LVP 0.0%; BVP 100.0% Echocardiogram 12/12/2024: 1. Mild concentric left ventricular hypertrophy with normal systolic function. LVEF is estimated at55%. 2. Normal right ventricular size and systolic function. 3. Severe biatrial dilatation. 4. Bioprosthetic mitral valve is well-seated with normal Doppler flows and trace valve regurgitation. 5. Moderate tricuspid regurgitation. 6. Severely elevated right-sided pressures. RVSP is 69 mmHg. Echocardiogram 05/16/2024: 1. The left ventricle is normal in size and exhibits mildly to moderately reduced systolic function. Estimated LVEF is 40 to 45%. 2. Right ventricle is moderately dilated with mildly reduced systolic function. 3. Severe biatrial dilatation. 4. 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 5. Moderate tricuspid regurgitation. 6. Mild to moderate pulmonic regurgitation. 7. Severely elevated right-sided pressures. RVSP is 72 mmHg. ECG 08/25/2021: AV dual-paced rhythm with occasional Premature ventricular complexes Biventricular pacemaker detected Abnormal ECG Echocardiogram 08/10/2019: Global left ventricular systolic function is at lower limits of normal (Visually estimated EF 50-55%). A bio prosthetic valve is seen in the mitral position. Limited study was performed to assess left ventricular systolic function. Cardiac catheterization 03/09/2019: 1. Mildly elevated right and left ventricular [...] evidence of fistulous communication with pulmonary artery. Assessment/Plan Diagnoses and all orders for this visit: Heart failure with improved ejection fraction (HFimpEF) ([facility]) - furosemide (Lasix) 40 mg tablet; Take 1.5 tablets once daily. 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 He does have elevated filling pressures consistent with heart failure. Based on the results of the right heart catheterization I increased his furosemide to 80 mg daily. This has led to some improvement in the lower extremity edema but he has been feeling dizzy and lightheaded and his BMP showed worsening of renal function. Because of that I am going to reduce furosemide to 60 mg once daily. I will also stop amlodipine 2.5 mg daily to avoid hypotension as well as to remove amlodipine as an causative agent of lower extremity edema. I am going to check a BMP in 2 weeks. I explained to him and his daughter that if there is no clinical improvement then we might need to proceed with a transesophageal echocardiogram for further assessment of the bioprosthetic mitral valve which has been in place for around 20 years. I explained tothem that a dysfunction in the mitral bioprosthetic valve that was not detected on the surface echocardiogram could be responsible for his current condition. For CAD he has no angina. Continue current medications including statin and beta-ekaterina. He is noton aspirin given that he is on warfarin to reduce the risk of bleeding. For heart failure and improved ejection fraction, continue spironolactone, losartan and metoprolol succinate. Continue warfarin for stroke risk reduction in atrial fibrillation. I will plan on seeing him in follow-up in 1 month to make a decision on the above. Follow up in about 4 weeks (around 04/11/2025). 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) Expected: 03/28/2025 (Approximate), Expires: 03/14/2026 documented as of this encounter Visit Diagnoses Diagnosis 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)- Primary Pulmonary HTN (CMS/HCC) 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
--- OUTSIDE RECORDS SUMMARY | 2025-03-28 08:20 | XMS_ITS | Encounter Summary ---
Author Organization [facility] Address [address] [place] [address] Care Team Providers Care Cook Helper Vegetable Name Role Phone Steve Vargas DO Primary Care Provider [phone] Tereso Ram OD Unavailable Encounter Details Date Type Department Care Team (Late st Contact Info) Description 01/02/2025 External Result Encounter [facility] External Department Unsolicited Adilene Weinberg MD [address] [place] [address] Social History Tobacco Use Types Packs/Day Years Used Date Smoking Tobacco: Never Sex and Gender Information Value Date Recorded Sex Assigned at Not on file Legal Sex Male 8:33 PM EDT Gender Identity Not on file Sexual Orientation Not on file documented as of this encounter Plan of Treatment Not on file documented as of this encounter Procedures Procedure Name Priority Date/Time Associated Diagnosis Comments CT ABDOMEN PELVIS W IV CONTRAST 01/02/2025 11:31 AM EDT documented in this encounter Results * CT abdomen pelvis w IV contrast (01/02/2025 11:31 AM EDT) Anatomical Region Laterality Modality Body, Pelvis, Abdomen Computed T omography 01/02/2025 11:3 1 AM EDT Impressions 01/02/2025 11:49 AM EDT MILD CARDIOMEGALY. MINIMAL PULMONARY SCARRING. NO DEVELOPING LYMPHADENOPATHY. SIMILAR RIGHT HEPATIC LESION THAT MIGHT BE A HEMANGIOMA. THIS WAS NOT HYPERMETABOLIC ON PET/CT. NO BOWEL OR URINARY TRACT OBSTRUCTION. NO ACUTE FINDINGS. Impression dictated by: Hafsa Keen M.D.01/02/2025 11:47 AM Dictation Location: [place] [address] Transcribed By: [facility] 01/02/25 1147 Dictated By: Hafsa Keen MD 01/02/25 1131 Signed By: <Electronically signed by MD Hafsa Keen in [place]> 01/02/25 1147 Narrative 01/02/2025 11:49 AM EDT [facility] [place] [address] [place] [address] CT Scan Report Signed Patient: Sebastian Hannon MR#: [id number] 0 : 1935 Acct:[id number] Age/Sex: 89 / M ADM Date: 01/02/25 Loc: Room: Type: [facility] Attending Dr: Adilene Weinberg MD Copies to: Adilene Weinberg MD Ordering Provider: Adilene Weinberg MD Date of Service: 01/02/25 CT/CT chest w con: 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 Images of the chest were reviewed using both narrow and wide window settings. This CT exam was performed using one or more following dose reduction techniques: Automated exposure control, adjustment of the mA and/or kV according to patient size, or use of iterative reconstruction technique. There is a left-sided pacemaker with associated streak artifact. Patient is status post median sternotomy. The heart is mildly prominent. No pericardial effusion is seen. There is coronary artery disease. No aortic aneurysm is noted. There is atherosclerotic plaque at the aorta and proximal great vessels. There are a couple small nonpathologic mediastinal lymph nodes. No developing adenopathy is seen. There is minor gynecomastia. No consolidation, pleural effusion or pneumothorax is identified. There is basilar atelectasis and/or scarring. No pulmonary nodularity is noted. Similar degenerative changes are present at the spine. No calcified gallstones are noted. The common duct is slightly prominent however no choledocholithiasis is seen. There is an enhancing nodular focus at the posterior right hepatic lobe on the chest images which becomes more isodense on the abdominal series. This may be a hemangioma. No other intrahepatic masses are noted. The spleen, pancreas and adrenal glands show no acute findings. There are symmetric renal nephrograms. There are extrarenal pelves though no hydronephrosis. There is a small right renal cyst. There is prominent atherosclerotic plaque at the aorta and iliac arteries. There is also plaque involving the proximal visceral arteries and SMA. No enlarged lymph nodes or ascites are identified. There is no dilated small bowel. Stool is seen throughout the colon. There is dextroscoliotic curvature and degenerative changes at the lumbar spine. Images through the pelvis show normal caliber small bowel loops. There is stool at the distal colon. No diverticular disease is seen. The urinary bladder shows no abnormalities. There are radiation seeds at the prostate. No adenopathy or ascites is identified. Mild degenerative change is present at the hips and SI joints where there may be partial ankylosis. CT/CT chest w con Procedure Note Radiology, Radiologist, - 01/02/2025 [facility] [place] [address] [place] [address] CT Scan Report Signed Patient: Sebastian Hannon LMR#: [id number] 0 : 1935cct:[id number] Age/Sex: 89 / MADM Date: 01/02/25 Loc: Room:Type: [facility] Attending Dr: Adilene Weinberg MD Copies to: Adilene Weinberg MD Ordering Provider: Adilene Weinberg MD Date of Service: 01/02/25 CT/CT chest w con: 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 ([id number]) CT/CT abdomen pelvis w con: C43.4 - Malignant melanoma ofscalp and neck CT CHEST, ABDOMEN AND PELVIS WITH INTRAVENOUS CONTRAST: CLINICAL HISTORY: Restaging of melanoma of the scalp and neck COMPARISON: 06/12/2024 chest and PET/CT 06/30/2024 TECHNIQUE: Spiral images were obtained through the chest, abdomen andpelvis following oral and intravenous administration of 90 mL of Isovue-300. Images of the chestwere reviewed using both narrow and wide window settings. This CT exam was performed using one ormore following dose reduction techniques: Automated exposure control, adjustment of the mAand/or kV according to patient size, or use of iterative reconstruction technique. There is a left-sided pacemaker with associated streak artifact. Patientis status post median sternotomy. The heart is mildly prominent. No pericardial effusion isseen. There is coronary artery disease. No aortic aneurysm is noted. There is atheroscleroticplaque at the aorta and proximal great vessels. There are a couple small nonpathologicmediastinal lymph nodes. No developing adenopathy is seen. There is minor gynecomastia. Noconsolidation, pleural effusion or pneumothorax is identified. There is basilar atelectasis and/or scarring.No pulmonary nodularity is noted. Similar degenerative changes are present at the spine. No calcified gallstones are noted. The common duct is slightly prominenthowever no choledocholithiasis is seen. There is an enhancing nodular focus at theposterior right hepatic lobe on the chest images which becomes more isodense on the abdominalseries. This may be a hemangioma. No other intrahepatic masses are noted. The spleen, pancreasand adrenal glands show no acute findings. There are symmetric renal nephrograms. There areextrarenal pelves though no hydronephrosis. There is a small right renal cyst. There is prominentatherosclerotic plaque at the aorta and iliac arteries. There is also plaque involving the proximalvisceral arteries and SMA. No enlarged lymph nodes or ascites are identified. There is nodilated small bowel. Stool is seen throughout the colon. There is dextroscoliotic curvature anddegenerative changes at the lumbar spine. Images through the pelvis show normal caliber small bowel loops. There isstool at the distal colon. No diverticular disease is seen. The urinary bladder shows noabnormalities. There are radiation seeds at the prostate. No adenopathy or ascites is identified.Mild degenerative change is present at the hips and SI joints where there may be partial ankylosis. CT/CT chest w con IMPRESSION: MILD CARDIOMEGALY. MINIMAL PULMONARY SCARRING. NO DEVELOPING LYMPHADENOPATHY. SIMILAR RIGHT HEPATIC LESION THAT MIGHT BE A HEMANGIOMA. THIS WAS NOTHYPERMETABOLIC ON PET/CT. NO BOWEL OR URINARY TRACT OBSTRUCTION. NO ACUTE FINDINGS. Impression dictated by: Hafsa Keen M.D.01/02/2025 11:47 AM Dictation Location: [place] [address] Transcribed By: [facility] 01/02/25 1147 Dictated By: Hafsa Keen MD 01/02/25 1131 Signed By: <Electronically signed by MD Hafsa Keen in [place]> 01/02/25 1147 Adilene Weinberg MD IMG CT PROCEDURES Final Result documented in this encounter Visit Diagnoses Not on filedocumented in this encounter Care Teams Cook Helper Vegetable Relationship Specialty Start Date End Date Steve Vargas DO PCP - General Internal Medicine 11/04/23 Tereso Ram OD [address] [place] [id number] Referring Physician Optometry 02/16/24 documented as of this encounter
--- OUTSIDE RECORDS SUMMARY | 2025-03-28 08:20 | XMS_ITS | Encounter Summary ---
Author Organization [facility] Address [address] [place] [address] Care Team Providers Care Project Buyer Name Role Phone Steve Vargas DO Primary Care Provider [phone] Tereso Ram OD Unavailable Encounter Details Date Type Department Care Team (Late st Contact Info) Description 01/02/2025 External Result Encounter [facility] External Department Unsolicited Adilene Weinberg MD [address] [place] [address] Social History Tobacco Use Types [...] Name Priority Date/Time Associated Diagnosis Comments CT HEAD W AND WO IV CONTRAST 01/02/2025 11:15 AM EDT documented in this encounter Results * CT head w and wo IV contrast (01/02/2025 11:15 AM EDT) Anatomical Region Laterality Modality Head, Neck Computed Tomogra phy 01/02/2025 11:1 5 AM EDT Impressions 01/02/2025 11:22 AM EDT ATROPHY AND CHRONIC MICROVASCULAR DISEASE. NO ACUTE INTRACRANIAL FINDINGS OR SUSPECTED METASTATIC DISEASE. Impression dictated by: Hafsa Keen M.D.01/02/2025 11:19 AM Dictation Location: [place] [address] Transcribed By: PHYLLIS 01/02/25 1119 Dictated By: Hafsa Keen MD 01/02/25 111 Signed By: <Electronically signed by MD Hafsa Keen in OV> 01/02/25 111 Narrative 01/02/2025 11:22 AM EDT [facility] Main [place] [address] [place] [address] CT Scan Report Signed with Matheus Patient: Sebastian Hannon MR#: [id number] 0 : 1935 Acct:[id number] Age/Sex: 89 / M ADM Date: 01/02/25 Loc: XT Room: Type: [facility] Attending Dr: Adilene Weinberg MD Copies to: Adilene Weinberg MD Ordering Provider: Adilene Weinberg MD Date of Service: 01/02/25 CT/CT head/brain wo/w con: 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 Metastatic disease is not excluded. Impression dictated by: Hafsa Keen M.D.01/02/2025 11:31 AM Dictation Location: [place] [address] Addendum Dictated By: MD Hafsa Keen Addendum Signed By: <Electronically signed by MD Hafsa Keen in OV> 01/02/25 113 Addendum Cosigned By: DD/ /28/1129 TD/TT: 01/02/2510/28/1130 CLINICAL DATA: Restaging of malignant melanoma of the head. CT BRAIN WITHOUT AND WITH INTRAVENOUS CONTRAST: COMPARISON: 06/12/2024 TECHNIQUE: Contiguous axial images were obtained through the brain both before and after intravenous administration of 90 mL of Isovue-300. This CT exam was performed using one or more following dose reduction techniques: Automated exposure control, adjustment of the mA and/or kV according to patient size, or use of iterative reconstruction technique. FINDINGS: There is mild generalized atrophy. The ventricles are within normal limits for size and position. Microvascular changes are again seen. There are no additional areas of abnormal attenuation or enhancement. There is no hemorrhage, mass effect or extra-axial collections. There is mild left sphenoid mucosal thickening. The remaining imaged paranasal sinuses and mastoid air cells are clear. There is vertebral artery and carotid siphon plaque. CT/CT head/brain wo/w con Procedure Note Radiology, Radiologist, - 01/02/2025 [facility] Main [place] [address] [place] [address] CT Scan Report Signed with Addenda Patient: Sebastian Hannon LMR#: [id number] 0 : 1935cct:[id number] Age/Sex: 89 / MADM Date: 01/02/25 Loc: XT Room:Type: [facility] Attending Dr: Adilene Weinberg MD Copies to: Adilene Weinberg MD Ordering Provider: Adilene Weinberg MD Date of Service: 01/02/25 CT/CT head/brain wo/w con: C43.4 - Malignantmelanoma of scalp and neck ADDENDUM 1 The subcutaneous soft tissue nodule in the preauricular region on theright which is described in the neck CT report is also visualized on the brain images. Metastaticdisease is not excluded. Impression dictated by: Hafsa Keen M.D.01/02/2025 11:31 AM Dictation Location: [place] [address] Addendum Dictated By: MD Hafsa Keen Addendum Signed By: <Electronically signed by MD Hafsa Real in OV> 01/02/251130 Addendum Cosigned By: DD/ /28/1129 TD/TT: 01/02/2510/28/1130 CLINICAL DATA: Restaging of malignant melanoma of the head. CT BRAIN WITHOUT AND WITH INTRAVENOUS CONTRAST: COMPARISON: 06/12/2024 TECHNIQUE: Contiguous axial images were obtained through the brain bothbefore and after intravenous administration of 90 mL of Isovue-300. This CT exam was performed usingone or more following dose reduction techniques: Automated exposure control, adjustment of the mAand/or kV according to patient size, or use of iterative reconstruction technique. FINDINGS: There is mild generalized atrophy. The ventricles are withinnormal limits for size and position. Microvascular changes are again seen. There are no additionalareas of abnormal attenuation or enhancement. There is no hemorrhage, mass effect orextra-axial collections. There is mild left sphenoid mucosal thickening. The remaining imaged paranasalsinuses and mastoid air cells are clear. There is vertebral artery and carotid siphon plaque. CT/CT head/brain wo/w con IMPRESSION: ATROPHY AND CHRONIC MICROVASCULAR DISEASE. NO ACUTE INTRACRANIAL FINDINGS OR SUSPECTED METASTATIC DISEASE. Impression dictated by: Hafsa Keen M.D.01/02/2025 11:19 AM Dictation Location: [facility]- Transcribed By: [facility] 01/02/25 1119 Dictated By: Hafsa Keen MD 01/02/25 1115 Signed By: <Electronically signed by MD Hafsa Keen in OV> 01/02/25 1119 Adilene Weinberg MD IMG CT PROCEDURES Edited Result - Final documented in this encounter Visit Diagnoses Not on filedocumented in this encounter Care Teams Project Buyer Relationship Specialty Start Date End Date Steve Vargas DO PCP - General Internal Medicine 11/04/23 Tereso Ram OD [address] [place] [address] Referring Physician Optometry 02/16/24 documented as of this encounter
--- OUTSIDE RECORDS SUMMARY | 2025-03-28 08:20 | XMS_ITS | Encounter Summary ---
Author Organization [facility] Address [address] [place] [address] Care Team Providers Care Drug And Alcohol Counsellor Name Role Phone Steve Vargas DO Primary Care Provider [phone] Tereso Ram OD Unavailable Encounter Details Date Type Department Care Team (Late st Contact Info) Description 01/02/2025 External Result Encounter [facility] External Department Unsolicited Adilene Weinberg MD [address] [place] [address] Social History Tobacco Use Types Packs/Day Years [...] Name Priority Date/Time Associated Diagnosis Comments CT SOFT TISSUE NECK W IV CONTRAST 01/02/2025 11:19 AM EDT documented in this encounter Results * CT soft tissue neck w IV contrast (01/02/2025 11:19 AM EDT) Anatomical Region Laterality Modality Head, Neck Computed Tomogra phy 01/02/2025 11:1 9 AM EDT Impressions 01/02/2025 11:30 AM EDT DEVELOPING SUBCUTANEOUS NODULE IN THE PREAURICULAR REGION ON THE RIGHT. FOLLOW-UP IS RECOMMENDED SINCE DEVELOPING METASTATIC DISEASE IS NOT EXCLUDED. NO OTHER ACUTE FINDINGS. Impression dictated by: Hafsa Keen M.D.01/02/2025 11:28 AM Dictation Location: [id number] Transcribed By: PHYLLIS 01/02/25 1128 Dictated By: Hafsa Keen MD 01/02/25 1119 Signed By: <Electronically signed by MD Hafsa Keen in OV> 01/02/25 1128 Narrative 01/02/2025 11:30 AM EDT [facility] [place] [address] CT Scan Report Signed Patient: Sebastian Hannon MR#: [id number] 0 : 1935 Acct:[id number] Age/Sex: 89 / M ADM Date: 01/02/25 Loc: Room: Type: [facility] Attending Dr: Adilene Weinberg MD Copies to: Adilene Weinberg MD Ordering Provider: Adilene Weinberg MD Date of Service: 01/02/25 CT/CT soft tissue neck w con: 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 Spiral images were obtained through the neck following 90 mL Isovue-300. This CT exam was performed using one or more following dose reduction techniques: Automated exposure control, adjustment of the mA and/or kV according to patient size, or use of iterative reconstruction technique. Mild heterogeneity is again seen at the thyroid lobes. There are symmetric submandibular and parotid glands. There is no enlargement of the adenoids or tonsils. The epiglottis and vocal cords are within normal limits. The airway is patent throughout its course with normal appearance the mucosal surfaces. There is carotid artery plaque bilaterally. There is a new subcutaneous nodular area in the preauricular region on the right measuring 10 x 12 x 4 mm in size which may be an enlarging lymph node No developing lymphadenopathy is noted. Degenerative changes are again visualized at the cervical spine. There is minor left maxillary and anterior sphenoid mucosal thickening. The upper imaged lungs show no contributory findings. CT/CT soft tissue neck w con Procedure Note Radiology, RadiologistMD - 01/02/2025 [facility] Main [place] [id number] CT Scan Report Signed Patient: Sebastian Hannon LMR#: [id number] 0 : 1935cct:[id number] Age/Sex: 89 / MADM Date: 01/02/25 Loc: XT Room:Type: [facility] Attending Dr: Adilene Weinberg MD Copies to: Adilene Weinberg MD Ordering Provider: Adilene Weinberg MD Date of Service: 01/02/25 CT/CT soft tissue neck w con: C43.4 - Malignantmelanoma of scalp and neck CT SOFT TISSUE NECK WITH CONTRAST COMPARISON: 06/12/2024 CLINICAL DATA: Restaging of melanoma of the scalp and neck. Spiral images were obtained through the neck following 90 mL Isovue-300.This CT exam was performed using one or more following dose reduction techniques: Automated exposurecontrol, adjustment of the mA and/or kV according to patient size, or use of iterative reconstructiontechnique. Mild heterogeneity is again seen at the thyroid lobes. There aresymmetric submandibular and parotid glands. There is no enlargement of the adenoids or tonsils. Theepiglottis and vocal cords are within normal limits. The airway is patent throughout its course withnormal appearance the mucosal surfaces. There is carotid artery plaque bilaterally. There is anew subcutaneous nodular area in the preauricular region on the right measuring 10 x 12 x 4 mm insize which may be an enlarging lymph node No developing lymphadenopathy is noted. Degenerativechanges are again visualized at the cervical spine. There is minor left maxillary andanterior sphenoid mucosal thickening. The upper imaged lungs show no contributory findings. CT/CT soft tissue neck w con IMPRESSION: DEVELOPING SUBCUTANEOUS NODULE IN THE PREAURICULAR REGION ON THE RIGHT.FOLLOW-UP IS RECOMMENDED SINCE DEVELOPING METASTATIC DISEASE IS NOT EXCLUDED. NO OTHER ACUTE FINDINGS. Impression dictated by: Hafsa Keen M.D.01/02/2025 11:28 AM Dictation Location: [place] [address] Transcribed By: PHYLLIS 01/02/25 1128 Dictated By: Hafsa Keen MD 01/02/25 1119 Signed By: <Electronically signed by MD Hafsa Keen in OV> 01/02/25 1128 us Adilene Weinberg MD IMG CT PROCEDURES Final Result documented in this encounter Visit Diagnoses Not on filedocumented in this encounter Care Teams Drug And Alcohol Counsellor Relationship Specialty Start Date End Date Steve Vargas DO PCP - General Internal Medicine 11/04/23 Tereso Ram OD [address] [place] [address] Referring Physician Optometry 02/16/24 documented as of this encounter
--- OUTSIDE RECORDS SUMMARY | 2025-03-28 08:20 | XMS_ITS | Clinical Summary ---
Author Organization [facility] Address [id number] [address] [place] [address] Care Team Providers Care Engineer Technician Name Role Phone Steve Vargas DO Primary Care Provider [phone] Allergies Active Allergy Reactions Criticality Noted Date Comments Latex Hives,Itching 07/10/2019 Penicillins Other (See Comments) 09/21/2014 Spironolactone Dizziness 05/28/2021 Medications calcium carbonate/vitam in D3 (CALCIUM 500 + D, D3, ORAL) Calcium 500 + D (D3) QD Active alfuzosin (UROXATRAL) 10 mg 24 hr tablet alfuzosin ER 10 mg tablet,extended release 24 hr Active atorvastatin (LIPITOR) 40 mg tablet atorvastatin 40 mg tablet TAKE 1 TABLET BY MOUTH ONCE DAILY Active cholecalciferol , vitamin D3, 5,000 units tablet every other day. Act cathryn clopidogreL (PLAVIX) 75 mg tablet clopidogrel 75 mg tablet TAKE 1 TABLET BY MOUTH ONCE DAILY FOR 90 DAYS Active ferrous sulfate 325 (65 FE) mg tablet Take 1 tablet by mouth. Active fexofenadine (NIKUNJ) 180 mg tablet daily. Active finasteride (PROSCAR) 5 mg tablet Take 5 mg by mouth daily. Active furosemide (LASIX) 20 mg tablet furosemide 20 mg tablet TAKE 1 TABLET BY MOUTH ONCE DAILY IN THE EVENING Active hydrOXYchloroQU INE (PLAQUENIL) 200 mg tablet daily. Active leflunomide (ARAVA) 20 mg tablet leflunomide 20 mg tablet TAKE 1 TABLET BY MOUTH ONCE DAILY Active losartan (COZAAR) 50 mg tablet losartan 50 mg tablet TAKE 1 & 1 2 (ONE & ONE HALF) TABLETS BY MOUTH ONCE DAILY Active metoprolol succinate XL (TOPROL-XL) 25 mg 24 hr tablet metoprolol succinate ER 25 mg tablet,extended release 24 hr TAKE 1 TABLET BY MOUTH ONCE DAILY Active nitroglycerin (NITROSTAT) 0.4 MG SL tablet Nitrostat 0.[address] by sublingual route as needed for 10 days. Active warfarin (COUMADIN) 5 mg tablet warfarin 5 mg tablet TAKE 1 TO 1 & 1 2 (ONE TO ONE & ONE HALF) TABLETS BY MOUTH ONCE DAILY DIRECTED Active Family History Medical History Relation Name Comments Parkinsonism Brother Cancer Mother Dementia Paternal Uncle Relation Name Status Comments Brother Mother Paternal Uncle Social History Tobacco Use Types Packs/Day Years Used Date Smoking Tobacco: Never Smokeless Tobacco: Never PHQ-2 Answer Date Recorded Total Score 5 05/28/2021 Childcare Answer Date Recorded Childcare Unknown 01/11/2021 Employment Answer Date Recorded Employment Unknown 01/11/2021 Purpose - Life Answer Date Recorded Purpose and direction in life Unknown Sex and Gender Information Value Date Recorded Sex Assigned at Not on file Legal Sex Male 12:47 PM EDT Gender Identity Not on file Sexual Orientation Not on file Last Filed Vital Signs Vital Sign Reading Time Taken Comments Blood Pressure 145/51 05/28/2021 2:19 PM EDT Pulse 70 05/28/2021 2:19 PM EDT Temperature - - Respiratory Rate - - Oxygen Saturation - - Inhaled Oxygen Concentration - - Weight 75.7 kg (166 lb 14.4 oz) 05/28/2021 2:19 PM EDT Height 177.8 cm (5' 10 ) 05/28/2021 2:19 PM EDT Body Mass Index 23.95 05/28/2021 2:19 PM EDT Plan of Treatment Health Maintenance Due Date Last Done Comments Depression Screening 1947 Tobacco Screening 1947 DTaP,Tdap and Td Vaccines (1 - Tdap) 1956 Zoster (Shingles) Vaccine (1 of 2) 1987 Fall Risk Screening 2002 COVID-19 Vaccine ( - season) 06/04/202411/2020, 11/05/2020 Influenza Vaccine 06/04/2025 06/30/2018, 06/29/2017 Medical Devices Not on file Insurance MEDICARE [facility] Care Teams Engineer Technician Relationship Specialty Start Date End Date Steve Vargas DO [address] [place] [address] PCP - General 03/22/13
--- OUTSIDE RECORDS SUMMARY | 2025-03-28 08:21 | XMS_ITS | Clinical Summary ---
Author Organization [facility] Address [address] [place] [address] Care Team Providers Care Blow Down Operator Name Role Phone Steve Vargas DO Primary Care Provider Tereso Ram OD Unavailable Allergies Active Allergy Reactions Criticality Noted Date Comments Latex Hives,Itching 07/10/2019 Penicillins Unknown 09/21/2014 Makes my eyes red Spironolactone Dizziness 05/28/2021 Medications warfarin (Coumadin) 5 MG tablet TAKE 1 TO 1 & 1/2 (ONE & ONE-HALF) TABLETS BY MOUTH ONCE DAILY OR DIRECTED BY MEDICATION MANAGEMENT CLINIC 3 Active spironolactone (Aldactone) 25 MG tablet Take 25 mg by mouth in the morning. Active metoprolol succinate XL (Toprol-XL) 50 MG 24 hr tablet Take 50 mg by mouth in the morning. 4 Active leflunomide (Arava) 20 MG tablet Take 20 mg by mouth every other day Active hydroxychloroqu ine (Plaquenil) 200 MG tablet TAKE 1 TABLET BY MOUTH ONCE DAILY ALTERNATING WITH 1 TABLET TWICE DAILY WITH FOOD. CONFIRM WITH EYE DOCTOR ON YEARLY EYE EXAM FOR MEDICATION TOXICITY. Active atorvastatin (Lipitor) 40 MG tablet Take 40 mg by mouth in the morning. Take before meals. 3 Active alfuzosin ER (Uroxatral) 10 MG 24 hr tablet Take 10 mg by mouth in the morning. Active Calcium Carb-Cholecalci ferol (Calcium 500 + D) 500-3.125 MG-MCG tablet Take 1 tablet by mouth in the morning. Active cholecalciferol (Vitamin D-3) 125 MCG (5000 UT) tablet Take 1 tablet every other day by oral route. Active finasteride (Proscar) 5 MG tablet Take 5 mg by mouth in the morning. Active fexofenadine (Ramona) 180 MG tablet 1 (one) time each day at the same time Active losartan (Cozaar) 50 MG tablet Take 50 mg by mouth in the morning. 4 Active Active Problems Problem Noted Date Diagnosed Date Brow ptosis 02/16/2024 Dermatochalasis of both upper eyelids 02/16/2024 Encounters Date Type Department Care Team Description 01/02/2025 External Result Encounter [facility] External Department Unsolicited Adilene Weinberg MD 01/02/2025 External Result Encounter [facility] External Department Unsolicited Adilene Weinberg MD 01/02/2025 External Result Encounter [facility] External Department Unsolicited Adilene Weinberg MD 01/02/2025 External Result Encounter [facility] External Department Unsolicited Adilene Weinberg MD 01/02/2025 External Result Encounter [facility] External Department Unsolicited Adilene Weinberg MD from Last 3 Months Social History Tobacco Use Types Packs/Day Years Used Date Smoking Tobacco: Never Sex and Gender Information Value Date Recorded Sex Assigned at Not on file Legal Sex Male 8:33 PM EDT Gender Identity Not on file Sexual Orientation Not on file Plan of Treatment Health Maintenance Due Date Last Done Comments Pneumococcal Vaccine: 65+ Ye ars (2 of 2 - PPSV23) 10/04/2019 10/04/2018 Influenza Vaccine (Season Ended) 2025 08/20/2022, 06/30/2018, 06/29/2017 Procedures Procedure Name Priority Date/Time Associated Diagnosis Comments CT ABDOMEN PELVIS W IV CONTRAST 01/02/2025 11:[address] SOFT TISSUE NECK W IV CONTRAST 01/02/2025 11:[address] HEAD W AND WO IV CONTRAST 01/02/2025 11:15 AM EDT LD STAT 01/02/2025 8:39 AM EDT COMPREHENSIVE METABOLIC PANEL STAT 01/02/2025 8:39 AM EDT CBC WITH AUTO DIFFERENTIAL Routine 01/02/2025 8:39 AM EDT from Last 3 Months Results * CT abdomen pelvis w IV [...] Hafsa Keen M.D.01/02/2025 11:47 AM Dictation Location: [place] [address] Transcribed By: [facility] 01/02/25 1147 Dictated By: Hafsa Keen MD 01/02/25 1131 Signed By: <Electronically signed by MD Hafsa Keen in OV> 01/02/25 1147 Narrative 01/02/2025 11:49 AM EDT [facility] [place] [address] [place] [address] CT Scan Report Signed Patient: Sebastian Hannon MR#: [id number] 0 : 1935 Acct:[id number] Age/Sex: 89 / M ADM Date: 01/02/25 Loc: Room: Type: [facility] Attending Dr: Adilene Weinberg MD Copies to: Adilene Weinberg MD Ordering Provider: Adilene Weinberg MD Date of Service: 01/02/25 CT/CT chest w con: 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 ([id number]) CT/CT abdomen pelvis w con: C43.4 - [...] CT/CT chest w con Procedure Note Radiology, RadiologistMD - 01/02/2025 [facility] [place] [address] [place] [address] CT Scan Report Signed Patient: Sebastian Hannon LMR#: [id number] 0 : 7Acct:[id number] Age/Sex: 89 / MADM Date: 01/02/25 Loc: XT Room:[facility] Attending Dr: Adilene Weinberg MD Copies to: Adilene Weinberg MD Ordering Provider: Adilene Weinberg MD Date of Service: 01/02/25 CT/CT chest w con: 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 ([id number]) CT/CT abdomen pelvis w con: C43.4 - [...] Hafsa Keen M.D.01/02/2025 11:47 AM Dictation Location: [facility]-02 Transcribed By: PHYLLIS 01/02/25 1147 Dictated By: Hafsa Keen MD 01/02/25 1131 Signed By: <Electronically signed by MD Hafsa Keen in OV> 01/02/25 1147 Adilene Weinberg MD IMG CT PROCEDURES Final Result * CT soft tissue neck w IV [...] 01/02/25 1128 Narrative 01/02/2025 11:30 AM EDT [place] [address] CT Scan Report Signed Patient: Sebastian Hannon MR#: [id number] 0 : 1935 Acct:[id number] Age/Sex: 89 / M ADM Date: 01/02/25 Loc: XT Room: Type: REG RCR Attending [...] tissue neck w con Procedure Note Radiology, Radiologist, - 01/02/2025 [facility] [place] [id number] CT Scan Report Signed Patient: Sebastian Hannon LMR#: [id number] 0 : 1935cct:[id number] Age/Sex: 89 / MADM Date: 01/02/25 Loc: XT Room:Type: REG RCR Attending Dr: Adilene Weinberg MD [...] Hafsa Keen M.D.01/02/2025 11:28 AM Dictation Location: [place] [address] Transcribed By: [facility] 01/02/25 1128 Dictated By: Hafsa Keen MD 01/02/25 1119 Signed By: <Electronically signed by MD Hafsa Keen in OV> 01/02/25 1128 us Adilene Weinberg MD IMG CT PROCEDURES Final Result * CT head w and wo IV contrast (01/02/2025 11:15 AM EDT) Anatomical Region Laterality Modality Head, Neck Computed Tomogra phy 01/02/2025 11:1 5 AM EDT Impressions 01/02/2025 11:22 AM EDT ATROPHY AND CHRONIC MICROVASCULAR DISEASE. NO ACUTE INTRACRANIAL FINDINGS OR SUSPECTED METASTATIC DISEASE. Impression dictated by: Hafsa Keen M.D.01/02/2025 11:19 AM Dictation Location: [facility]--02 Transcribed By: PHYLLIS 01/02/25 111 Dictated By: Hafsa Keen MD 01/02/25 111 Signed By: <Electronically signed by MD Hafsa Keen in OV> 01/02/25 1119 Narrative 01/02/2025 11:22 AM EDT [facility] [place] [address] [place] [address] CT Scan Report Signed with Addenda Patient: Sebastian Hannon MR#: [id number] 0 : 1935 Acct:[id number] Age/Sex: 89 / M ADM Date: 01/02/25 Loc: Room: Type: [facility] Attending Dr: Adilene Weinberg MD Copies to: [...] Hafsa Keen M.D.01/02/2025 11:31 AM Dictation Location: [facility]--02 Addendum Dictated By: MD Hafsa Keen Addendum Signed By: <Electronically signed by MD Hafsa Keen in OV> 01/02/251130 Addendum Cosigned By: DD/ [...] head/brain wo/w con Procedure Note Radiology, Radiologist, MD - 01/02/2025 [facility] [place] [address] [place] [address] CT Scan Report Signed with Addenda Patient: Sebastian Hannon LMR#: [id number] 0 : 1935cct:[id number] Age/Sex: 89 / MADM Date: 01/02/25 Loc: XT Room:Type: [facility] Attending Dr: Adilene Weinberg MD Copies to: [...] Hafsa Keen M.D.01/02/2025 11:31 AM Dictation Location: [place] [address] Addendum Dictated By: MD Hafsa Keen Addendum [...] Hafsa Keen M.D.01/02/2025 11:19 AM Dictation Location: [place] [address] Transcribed By: [facility] 01/02/25 1119 Dictated By: Hafsa Keen MD 01/02/25 1115 Signed By: <Electronically signed by MD Hafsa Keen in OV> 01/02/25 1119 Adilene Weinberg MD IM CT PROCEDURES Edited Result - Final * (ABNORMAL) CBC auto differential (01/02/2025 8:39 AM EDT) WBC 5.9 4.1 - 10.5 10*3/uL [facility]/02/2025 [facility] WHITE BLOOD COUNT 5.9 4.1 - 10.5 10*3/uL [facility] RBC 3.03(L) 3.90 - 5.60 10*6/uL [facility]/02/2025 [facility] HEMOGLOBIN 9.8(L) 13.0 - 17.0 g/dL 01/02/2025 9:02 AM [facility] HEMATOCRIT 28.6(L) 38.8 - 50.0 % 01/02/2025 9:[facility] MCV 94.3 83.5 - 101 fL 01/02/2025 9:02 AM EDT [facility] MCH 32.2 27.5 - 35.2 pg 01/02/2025 9:02 AM EDT [facility] MCHC 34.1 32.5 - 35.6 g/dL 01/02/2025 9:02 AM EDT [facility] RED CELL DISTRIBUTION WIDTH, RDW 14.2 12.0 - 14.8 % 01/02/2025 9:02 AM EDT [facility] PLATELET COUNT 146(L) 150 - 450 10*3/uL 01/02/2025 9:02 AM EDT [facility] MEAN PLATELET VOLUME, MPV 7.9 6.6 - 10.1 fL 01/02/2025 9:02 AM EDT [facility] NEUTROPHILS, % 73.7 . % 01/02/2025 9:02 AM EDT [facility] LYMPHOCYTES, % 14.5 . % 01/02/2025 9:02 AM EDT [facility] MONOCYTE/MACROPHA GE, % 10.2 . % 01/02/2025 9:02 AM EDT [facility] EOSINOPHILS, % 0.9 . % 01/02/2025 9:02 AM EDT [facility] BASOPHILS, % 0.7 . % 01/02/2025 9:02 AM EDT [facility] NRBC 0.1 0 - 0.5 /100{WBC} 01/02/2025 9:02 AM EDT [facility] NEUTROPHILS 4.4 1.8 - 7.7 10*3/uL 01/02/2025 9:02 AM EDT [facility] LYMPHOCYTES 0.9(L) 1.00 - 4.8 10*3/uL 01/02/2025 9:02 AM EDT [facility] MONOCYTES 0.6 0.0 - 0.8 10*3/uL 01/02/2025 9:02 AM EDT [facility] EOSINOPHILS 0.1 0.0 - 0.45 10*3/uL 01/02/2025 9:02 AM EDT [facility] BASOPHILS 0.0 0.0 - 0.2 10*3/uL 01/02/2025 9:02 AM EDT [facility] Blood (Blood) 01/02/2025 8:3 9 AM EDT 01/02/2025 8:45 AM EDT us Adilene Weinberg MD LAB BLOOD ORDERABLES Final Resul t Performing Organization Address [facility] Co de Phone Number [address] [address], [facility] [address] [place] [address] * Lactate dehydrogenase (01/02/2025 8:39 AM EDT) LDH LACTATE DEHYDROGENASE 241 140 - 271 U/L 01/02/2025 9:22 AM EDT [facility] Other Topography unknown / Unknown 01/02/2025 8:39 AM EDT 01/02/2025 8:45 AM EDT Narrative [facility] - 01/02/2025 9:22 AM EDT STAT FOR CT BUN/CREAT us Adilene Weinberg MD LAB BLOOD ORDERABLES Final Resul t Performing Organization Address [facility] Co de Phone Number [address] [address], [facility] [address] [place] [address] * (ABNORMAL) Comprehensive metabolic panel (01/02/2025 8:39 AM EDT) Glucose 90 70 - 100 mg/dL 01/02/2025 9:22 AM EDT [facility] Comment: Random Glucose Reference Range is dependent on time and content of last meal. Glucose of more than 200 mg/dL in a nonstressed, ambulatory subject supports the diagnosis of Diabetes Mellitus. ADA recommended reference range BUN 29(H) 7 - 25 mg/dL 01/02/2025 9:22 AM EDT [facility] CREATININE 1.33(H) 0.70 - 1.30 mg/dL 01/02/2025 9:22 AM EDT [facility] ESTIMATED GFR 51.733 mL/Min 01/02/2025 9:22 AM EDT [facility] Sodium 138 136 - 145 mmol/L 01/02/2025 9:22 AM EDT [facility] Potassium, Bld 4.0 3.5 - 5.1 mmol/L 01/02/2025 9:22 AM EDT [facility] Chloride 102 98 - 107 mmol/L 01/02/2025 9:22 AM EDT [facility] Carbon Dioxide 29.8 21.0 - 31.0 mmol/L 01/02/2025 9:22 AM EDT [facility] Anion Gap 10.2 6.0 - 15.0 meq/L 01/02/2025 9:22 AM EDT [facility] Calcium 9.7 8.6 - 10.3 mg/dL 01/02/2025 9:22 AM EDT [facility] TOTAL PROTEIN 6.8 6.4 - 8.9 g/dL 01/02/2025 9:22 AM EDT [facility] ALBUMIN LEVEL 4.5 3.5 - 5.7 g/dL 01/02/2025 9:22 AM EDT [facility] GLOBULIN 2.3 g/dL 01/02/2025 9:22 AM EDT [facility] ALBUMIN/GLOBULIN RATIO 2.0 01/02/2025 9:22 AM EDT [facility] BILIRUBIN,TOTAL 1.0 0.3 - 1.0 mg/dL 01/02/2025 9:22 AM EDT [facility] ASPARTATE AMINO TRANSFERASE 20 13 - 39 U/L 01/02/2025 9:22 AM EDT [facility] ALANINE AMINOTRANSFERASE 27 7 - 52 U/L 01/02/2025 9:22 AM EDT [facility] ALKALINE PHOSPHATASE 62 34 - 104 U/L 01/02/2025 9:22 AM EDT [facility] CREATININE CLR CALC PHARMACY 40.40 01/02/2025 9:22 AM [facility] Other Topography unknown / Unknown 01/02/2025 8:39 AM EDT 01/02/2025 8:[address] [facility] - 01/02/2025 9:22 AM EDT STAT FOR CT BUN/CREAT us Adilene Weinberg MD LAB BLOOD ORDERABLES Final Resul t [facility] [address] [facility] [place] [address], [facility] [address] [place] [address] from Last 3 Months Insurance MEDICARE [facility] Care Teams Blow Down Operator Relationship Specialty Start Date End Date Steve Vargas DO PCP - General Internal Medicine 11/04/23 Tereso Ram OD [address] [place] [id number] Referring Physician Optometry 02/16/24
--- OUTSIDE RECORDS SUMMARY | 2025-03-28 08:21 | XMS_ITS ---
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 Carotid stenosis 05/02/2024 Chronic venous insufficiency 05/02/2024 Encounter for coordination of complex care 05/02 Iron deficiency anemia 05/02/2024 Ischemic cardiomyopathy 05/02/2024 Rectal bleeding 05/02/2024 Rheumatoid arthritis 05/02/2024 Thrombocytopenia 05/02/2024 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 05/02/2024 Brow ptosis 02/16/2024 Dermatochalasis of both upper eyelids 02/16/2024 Malignant melanoma of forehead 10/08/2023 Benign prostatic hyperplasia with urinary obstru ction 09/24/2022 History of malignant neoplasm of prostate 2021 Microscopic hematuria 09/24/2022 Nocturia 09/24/2022 Post-void dribbling 09/24/2022 Flushing 06/06/2022 Myocardiopathy 07/07/2019 Overview (09/24/2022): Added automatically from request for surgery [id number] Hypertensive disorder 06/15/2014 Carotid artery occlusion 08/22/2013 Chronic systolic heart failure 05/30/2013 Pulmonary heart disease, unspecified 03/14/2013 Dyspnea 02/21/2013 Cardiac pacemaker in situ 11/21/2012 History of cardiovascular disorder 11/07/2012 Cardiovascular system problem 10/25/2012 Syncope and collapse 10/25/2012 Mitral valve disorder 01/19/2012 Primary malignant neoplasm of prostate 2 Atrial fibrillation 01/12/2012 Coronary atherosclerosis 01/12/2012 Family history of prostate cancer 01/12/2012 Hyperlipidemia 01/12/2012 Current Treatment and Therapy Plans No current plan information found. Past Treatment and Therapy Plans No past plan information found. Lifetime Dose Tracking * Chemical Lifetime Dose Automatic Entry Manual Entr y Fluoro Time 3.31 minutes 0 minutes 3.31 minutes Air Kerma 42.07 mGy 0 mGy 42.07 mGy
--- OUTSIDE RECORDS SUMMARY | 2025-03-28 08:21 | XMS_ITS | Encounter Summary ---
Author Organization [facility] Address [address] [place] [address] Care Team Providers Care Decorating Inspector Name Role Phone Steve Vargas DO Primary Care Provider [phone] Tereso Ram OD Unavailable Encounter Details Date Type Department Care Team (Late st Contact Info) Description 06/30/2024 External Result Encounter [facility] External Department Unsolicited Adilene Weinberg MD [address] [place] [address] Social History Tobacco Use Types [...] Procedure Name Priority Date/Time Associated Diagnosis Comments PET/CT SKULL BASE TO MID THIGH 06/30/2024 2:58 PM EDT documented in this encounter Results * PET/CT skull base to mid thigh (06/30/2024 2:58 PM EDT) Anatomical Region Laterality Modality Body Computed Tomogra phy 06/30/2024 2:58 PM EDT Impressions 06/30/2024 3:10 [address]T Negative PET [address]. Impression dictated by: Festus Silver Jr., D.O.06/30/2024 3:08 PM Dictation Location: [place] [address] Transcribed By: PHYLLIS 06/30/24 1508 Dictated By: Festus Silver Jr, DO 06/30/24 1458 Signed By: <Electronically signed by Festus Silver Jr, DO in OV> 06/30/24 1508 Narrative 06/30/2024 3:10 [place] [address] Nuclear Medicine Report Signed Patient: Sebastian Hannon MR#: [id number] 0 : 1935 Acct:[id number] Age/Sex: 88 / M ADM Date: 06/30/24 Loc: XT Room: Type: REG RCR Attending [...] fluid. PET/PET tumor subq tx strat wb Procedure Note Radiology, Radiologist, MD - 06/30/2024 [place] [id number] Nuclear Medicine Report Signed Patient: Sebastian Hannon LMR#: [id number] 0 : 1935cct:[id number] Age/Sex: 88 / MADM Date: 06/30/24 Loc: XT Room:Type: REG RCR Attending Dr: [...] from the skull to the feet followed byPET imaging. Multiplanar PET/CT fusion images. Blood Glucose : 83 mg/dL The F-18 FDG 14mCi. FINDINGS: Neck: No abnormal activity is noted. Chest:No abnormal activity is noted. Abdomen/pelvis: No abnormal activity is seen within the abdomen or pelvisspecifically involving the liver. Soft tissue/bones: No abnormal activity is noted. CT findings: No pneumothorax. No pericardial or pleural effusions.Cardiomegaly. No free air or free fluid. PET/PET tumor subq tx strat wb IMPRESSION: Negative PET CT. Impression dictated by: Festus Silver Jr., D.O.06/30/2024 3:08 PM Dictation Location: [place] [address] Transcribed By: [facility] 06/30/24 1508 Dictated By: Festus Silver Jr, DO 06/30/24 1458 Signed By: <Electronically signed by Festus Silver Jr, DO inOV> 06/30/24 1508 Adilene Weinberg MD IMG CT PROCEDURES Final Result documented in this encounter Visit Diagnoses Not on filedocumented in this encounter Care Teams Decorating Inspector Relationship Specialty Start Date End Date Steve Vargas DO PCP - General Internal Medicine 11/04/23 Tereso Ram OD [address] [place] [address] Referring Physician Optometry 02/16/24 documented as of this encounter
--- OUTSIDE RECORDS SUMMARY | 2025-03-28 08:21 | XMS_ITS | Encounter Summary ---
Author Organization [facility] Address [address] [place] [address] Care Team Providers Care Graphic Design Manager Name Role Phone Steve Vargas DO Primary Care Provider [phone] Encounter Details Date Type Department Care Team (Late st Contact Info) Description 03/12/2025 Orders Only [facility] [address] [place] [address] Yue Grider MD [address] [place] [address] Social History Tobacco Use Types Packs/Day Years Used Date Smoking Tobacco: Former Cigars Passive Smoke Exposure: Past Smokeless Tobacco: Never Alcohol Use Standard Drinks/Week Comments Not Currently 0 (1 standard drink = 0.6 oz pur e alcohol) [place] Safety & Environment Answer Date Rec orded [...] as of this encounter Plan of Treatment Upcoming Encounters Date Type Department Care Team (Late st Contact Info) Description 04/24/2025 9:00 AM EDT Ancillary Procedure [facility] ([place], [place]) [address] [place] [id number] 04/30/2025 9:45 AM EDT Office Visit [facility] [address] [place] [address] Dylon Kate MD [address] [place] [address] [facility] [place] [phone] documented as of this encounter Procedures Procedure Name Priority Date/Time Associated Diagnosis Comments CARDIAC DEVICE CHECK - REMOTE - ICD Routine 03/12/2025 12:00 AM EDT documented in this encounter Results * Cardiac device check - Remote ICD (03/12/2025 12:00 AM EDT) Anatomical Region Laterality Modality Other 03/12/2025 Yue Grider MD CV IMPLANTABLE CARDIAC DEVICE PROCEDURES Final Result documented in this encounter Visit Diagnoses Not on filedocumented in this encounter Care Teams Graphic Design Manager Relationship Specialty Start Date End Date Steve Vargas DO [address] [facility] [address] PCP - General 06/06/22 documented as of this encounter
--- OUTSIDE RECORDS SUMMARY | 2025-03-28 08:21 | XMS_ITS | Encounter Summary ---
Author Organization [facility] Address [address] [place] [address] Care Team Providers Care M1A1 Tank Crewman Name Role Phone Steve Vargas DO Primary Care Provider [phone] Tereso Ram OD Unavailable Encounter Details Date Type Department Care Team (Late st Contact Info) Description 06/12/2024 External Result Encounter [facility] External Department Unsolicited Adilene Weinberg MD [address] [place] [address] Social History Tobacco Use Types [...] Comments CT ABDOMEN PELVIS W IV CONTRAST 06/12/2024 1:08 PM EDT documented in this encounter Results * CT abdomen pelvis w IV contrast (06/12/2024 1:08 PM EDT) Anatomical Region Laterality Modality Body, Pelvis, Abdomen Computed T omography 06/12/2024 1:08 PM EDT Impressions 06/12/2024 1:18 PM EDT There is a 7 mm focus of [...] Tereso Lynn M.D.06/12/2024 1:15 PM Dictation Location: [place] [address] Transcribed By: [facility] 06/12/24 1315 Dictated By: Tereso Lynn II, MD 06/12/24 1308 Signed By: <Electronically signed by Tereso Lynn II, MD in OV> 06/12/24 1315 Narrative 06/12/2024 1:18 PM EDT [facility] [place] [address] [place] [address] CT Scan Report Signed Patient: Sebastian Hannon MR#: [id number] 0 : 1935 Acct:[id number] Age/Sex: 88 / M ADM Date: 06/12/24 Loc: Room: Type: [facility] [...] iliac joints. CT/CT abdomen pelvis w con Procedure Note Radiology, Radiologist, - 06/12/2024 [facility] [place] [address] [place] [address] CT Scan Report Signed Patient: Sebastian Hannon LMR#: [id number] 0 : 1935cct:[id number] Age/Sex: 88 / MADM Date: 06/12/24 Loc: Room:Type: [facility] Attending Dr: Adilene Weinberg MD Copies to: Adilene Weinberg MD Ordering Provider: Adilene Weinberg MD Date of Service: 06/12/24 CT/CT abdomen pelvis w con: C43.4 - Malignantmelanoma of scalp and neck CT abdomen pelvis w con 06/12/2024 7:29 AM SIGNS AND SYMPTOMS: Malignant melanoma of scalp and neck TECHNIQUE: Multidetector ct axial images of the abdomen and pelvis wereobtained with IV contrast. Multiplanar reformats were performed and reviewed to further defineanatomy and possible pathology. CT was performed with one or more of the following dose reductiontechniques: Automated exposure control, adjustment of the mA and/or kV according to patient size, or useof iterative reconstruction technique. COMPARISON: None. FINDINGS: Lower Chest: Atherosclerotic changes are noted in the coronary arteriesand thoracic aorta. There is cardiomegaly. ABDOMEN: Liver: There is a 7 mm focus of enhancement in the dome of the righthepatic lobe. Bile Ducts: Normal caliber. Gallbladder: No calcified gallstones. Normal caliber wall. Pancreas: Within normal limits. Spleen: Within normal limits. Adrenals: Within normal limits. Kidneys: There is a simple cyst in the right renal cortex requiring nofurther follow-up. Pelvis: Reproductive Organs: Radiation seeds are noted in the prostate. Ureters: Within normal limits. Bladder: Within normal limits. Bowel: Normal caliber. There is a normal appendix in the right lowerquadrant. Mesenteric Lymph Nodes: No enlarged mesenteric lymph nodes. Peritoneum: No ascites or free air, no fluid collection. Vessels: Atherosclerotic changes are noted in the abdominal aorta and itsbranches. Retroperitoneum: Within normal limits. Abdominal Wall: Within normal limits. Bones: Degenerative changes are noted in the thoracolumbar spine, hips,and sacral iliac joints. CT/CT abdomen pelvis w con IMPRESSION: There is a 7 mm focus of enhancement in the dome of the right hepaticlobe.Metastatic disease should be considered. Other etiologies may include a flash filling hemangioma ortumor of hepatocellular origin. Follow-up with contrast-enhanced MRI of the liver may be helpful.Additional repeat imaging with PET/CT may also be helpful. Graph no additional evidence ofmetastatic disease. No acute intra-abdominal pathology is noted otherwise. Impression dictated by: Tereso Lynn M.D.06/12/2024 1:15 PM Dictation Location: [place] [address] Transcribed By: [facility] 06/12/24 1315 Dictated By: Tereso Lynn II, MD 06/12/24 1308 Signed By: <Electronically signed by Tereso Lynn II, MD inO> 06/12/24 1315 Adilene Weinberg MD IMG CT PROCEDURES Final Result documented in this encounter Visit Diagnoses Not on filedocumented in this encounter Care Teams M1A1 Tank Crewman Relationship Specialty Start Date End Date Steve Vargas DO PCP - General Internal Medicine 11/04/23 Tereso Ram OD [address] [place] [address] Referring Physician Optometry 02/16/24 documented as of this encounter
--- OUTSIDE RECORDS SUMMARY | 2025-03-28 08:21 | XMS_ITS | Referral Summary ---
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) (Primary Dx); Pulmonary HTN (CMS/HCC); Coronary artery disease involving [place] coronary artery of [place] heart without angina pectoris; Status post insertion of drug eluting coronary artery stent; PAF (paroxysmal atrial fibrillation) (CMS/HCC); 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; History of coronary artery bypass surgery 03/12/2025 Orders Only [facility] [address] [place] [address] Yue Grider MD 03/12/2025 8:30 AM EDT Ancillary Procedure [facility] [address] [place] [address] Pre-operative cardiovascular examination, ICD in place 03/01/2025 Travel 03/01/2025 12:00 PM EDT - 03/01/2025 1:00 PM EDT Surgery [facility] [address] [place] [address] Dylon Kate MD Right heart cath [22568 (CPT )] 03/01/2025 8:50 AM EDT - 03/01/2025 2:37 PM EDT Hospital Encounter [facility] [address] [place] [address] Dylon Kate MD Pulmonary heart disease, unspecified (CMS/HCC) (Primary Dx); 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); Pulmonary HTN (CMS/HCC); Edema, unspecified type; Acute combined systolic and diastolic heart failure (CMS/HCC) Discharge Disposition: Home or Self Care (01) 02/20/2025 Travel 02/09/2025 Orders Only [facility] [address] [facility] [place] [address] Filippo Little MD 02/09/2025 Orders Only [facility] [address] [place] [address] Filippo Little MD 02/09/2025 8:30 AM EDT Ancillary Procedure [facility] [address] [place] [address] Pre-operative cardiovascular examination, ICD in place 02/08/2025 Refill [facility] [address] [place] [facility] [place] [address] Carina Greene MA Acute combined systolic and diastolic heart failure (CMS/HCC) 01/29/2025 Refill [facility] [address] [place] [facility] [place] [address] Karen Moody MA 01/29/2025 Refill [facility] [address] [place] [facility] [place] [address] Karen Moody MA 01/24/2025 9:00 AM EDT Office Visit [facility] [address] [place] [facility] [place] [address] Dylon Kate MD 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) (Primary Dx); Pulmonary HTN (CMS/HCC); Coronary artery disease involving [place] coronary artery of [place] heart without angina pectoris; Status post insertion of drug eluting coronary artery stent; PAF (paroxysmal atrial fibrillation) (CMS/HCC); 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 Active cholecalciferol (D3-5) 5,000 Units tablet Take 1 tablet every other day by oral route. Active finasteride (Proscar) 5 mg tablet Take 1 tablet by mouth in the morning. Active hydroxychloroqu ine (Plaquenil) 200 mg tablet Take 200 mg by mouth 1 (one) time each day. Active leflunomide (Arava) 20 mg tablet Take 1 tablet by mouth every other day. Active nitroglycerin (Nitrostat) 0.[address] by sublingual route as needed for 10 days. Active spironolactone (Aldactone) 25 mg tablet Take 1 tablet by mouth in the morning. Active ferrous sulfate 325 (65 Fe) MG tablet Take 65 mg by mouth with breakfast. Active warfarin (Coumadin) 5 mg tabletIndicatio ns:Persistent atrial fibrillation (CMS/HCC) TAKE 1 TO 1 & 1/2 (ONE TO ONE & ONE-HALF) TABLETS BY MOUTH ONCE DAILY DIRECTED 135 tablet 06/08/20 23 Active metoprolol succinate XL (Toprol-XL) 50 mg 24 hr tabletIndicatio ns:Persistent atrial fibrillation (CMS/HCC),Chron ic systolic heart failure (CMS/HCC) Take 1.5 tablets (75 mg) by mouth in the morning. 45 tablet 3 10/26/19 24 Active atorvastatin (Lipitor) 40 mg tabletIndicatio ns:Coronary artery disease due to lipid rich plaque Take 1 tablet (40 mg) by mouth in the morning. 90 tablet 3 08/21/20 24 025 Active losartan (Cozaar) 50 mg tabletIndicatio ns:Essential hypertension Take 1 tablet (50 mg) by mouth in the morning. 90 tablet 3 10/09/19 25 026 Active fexofenadine (Ramona) 180 mg tablet Take 180 mg by mouth in the morning. 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 03/14/20 Active amLODIPine (Norvasc) 2.5 mg tablet Take 2.5 mg by mouth in the morning. 025 Discontinued(T herapy completed) furosemide (Lasix) 20 mg tabletIndicatio ns:Edema, unspecified type Take 1 tablet (20 mg) by mouth in the morning. 90 tablet 3 07/10/20 24 025 Discontinued(S top Taking at Discharge) furosemide (Lasix) 40 mg tabletIndicatio ns:Edema, unspecified type Take 1 tablet (40 mg) by mouth in the morning. 90 tablet 3 12/26/19 25 025 Discontinued(S top Taking at Discharge) furosemide (Lasix) 40 mg tabletIndicatio ns:Acute combined systolic and diastolic heart failure (CMS/HCC) Take 1 tablet (40 mg) by mouth in the morning. 90 tablet 3 02/09/20 25 025 Discontinued furosemide (Lasix) 40 mg tabletIndicatio ns:Acute combined systolic and diastolic heart failure (CMS/HCC) Take 1 tablet (40 mg) by mouth two times daily. 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 Carotid stenosis 05/02/2024 Chronic venous insufficiency 05/02/2024 Encounter for coordination of complex care 05/02 Iron deficiency anemia 05/02/2024 Ischemic cardiomyopathy 05/02/2024 Rectal bleeding 05/02/2024 Rheumatoid arthritis 05/02/2024 Thrombocytopenia 05/02/2024 Cardiac resynchronization th erapy defibrillator (ACADEMIC DEPARTMENT CHAIR-D) in place 05/02/2024 Brow ptosis 02/16/2024 Dermatochalasis of both upper eyelids 02/16/2024 Malignant melanoma of forehead 10/08/2023 Benign prostatic hyperplasia with urinary obstru ction 09/24/2022 History of malignant neoplasm of prostate 2021 Microscopic hematuria 09/24/2022 Nocturia 09/24/2022 Post-void dribbling 09/24/2022 Flushing 06/06/2022 Myocardiopathy 07/07/2019 Overview (09/24/2022): Added automatically from request for surgery [id number] Hypertensive disorder 06/15/2014 Carotid artery occlusion 08/22/2013 Chronic systolic heart failure 05/30/2013 Pulmonary heart disease, unspecified 03/14/2013 Dyspnea 02/21/2013 Cardiac pacemaker in situ 11/21/2012 History of cardiovascular disorder 11/07/2012 Cardiovascular system problem 10/25/2012 Syncope and collapse 10/25/2012 Mitral valve disorder 01/19/2012 Primary malignant neoplasm of prostate 2 Atrial fibrillation 01/12/2012 Coronary atherosclerosis 01/12/2012 Family history of prostate cancer 01/12/2012 Hyperlipidemia 01/12/2012 Social History Tobacco Use Types Packs/Day Years Used Date Smoking Tobacco: Former Cigars Passive Smoke Exposure: Past Smokeless Tobacco: Never Tobacco Cessation:Counseling Given: Not Answered Alcohol Use Standard Drinks/Week Comments Not Currently [...] Pulse 61 03/14/2025 2:43 PM EDT Temperature 36.3 C (97.3 F) 12/19/2019 10:56 AM EDT Respiratory Rate 16 03/01/2025 2:20 PM EDT Oxygen Saturation 99% 03/14/2025 2:43 PM EDT Inhaled Oxygen Concentration - - Weight 73.9 kg (163 lb) 03/14/2025 2:43 PM EDT Height 177.8 cm (5' 10 ) 03/14/2025 2:43 PM EDT Body Mass Index 23.39 03/14/2025 2:43 PM EDT Plan of Treatment Upcoming Encounters Date Type Department Care Team (Late st Contact Info) Description 04/24/2025 9:00 AM EDT Ancillary Procedure [facility] [address] [place] [address] 04/30/2025 9:45 AM EDT Office Visit [facility] [address] [place] [facility] [place] [address] Dylon Kate MD [address] [facility] [address] [facility] [place] [address] Medical Devices Implanted Type Area Transmission Systems Operator Device Identifier Shelf Expiration Date Model / Serial / Lot [id number] Acticor 7 Hf-T Qp [id number] Implanted:08/25 (Quantity not on file) ACADEMIC DEPARTMENT CHAIR-D ICD [id number] ACTICOR 7 HF-T QP / [id number] / [id number] Optim [id number] Implanted:10/28 (Quantity not on file) Lead [address] OPTIM / [id number] / [id number] Plexa Promri S 65 [id number] Implanted:08/25 (Quantity not on file) Lead [id number] PLEXA PROMRI S 65 / [id number] / [id number] Sentus Promri Otw Qp L-85/49 [id number] Implanted:08/25 (Quantity not on file) Lead [id number] BILL DUNCANRI OTW QP L-85/49 / [id number] / Procedures Procedure Name Priority Date/Time Associated Diagnosis Comments CARDIAC DEVICE CHECK CHECK - REMOTE Routine 03/20/2025 2:03 PM EDT Pre-operative cardiovascular examination, ICD in place CARDIAC DEVICE CHECK - REMOTE - ICD Routine 03/12/2025 12:00 AM EDT RIGHT HEART CATH Routine 03/01/2025 2:09 PM EDT Heart failure with improved ejection fraction (HFimpEF) ([facility]) Pulmonary HTN ([facility]) POCT HBO2% Routine 03/01/2025 2:04 PM EDT POCT INR Routine 03/01/2025 9:02 AM EDT CARDIAC DEVICE CHECK CHECK - REMOTE Routine 02/20/2025 1:05 PM EDT Pre-operative cardiovascular examination, ICD in place CARDIAC DEVICE CHECK - REMOTE - ICD Routine 02/09/2025 12:00 AM EDT CARDIAC DEVICE CHECK - REMOTE - ICD Routine 02/09/2025 12:00 AM EDT CARDIAC DEVICE CHECK - REMOTE - ICD Routine 01/12/2025 11:25 AM EDT Pre-operative cardiovascular examination, ICD in place from Last 3 Months Results * CARDIAC DEVICE CHECK - REMOTE - ICD (03/20/2025 2:03 PM EDT) Only the most recent of3 resultswithin the time period is included. BSA 1.91 m2 [facility] us Filippo Little MD CV IMPLANTABLE CARDIAC DEVICE LA OCEDURES Final Result [facility] * Cardiac device check - Remote ICD (03/12/2025 12:00 AM EDT) Only the most recent of3 resultswithin the time period is included. Anatomical Region Laterality Modality Other 03/12/2025 us Samer Niki Grider MD CV IMPLANTABLE CARDIAC DEVICE PROCEDURES Final Result * RIGHT HEART CATH (03/01/2025 2:09 PM EDT) Anatomical Region Laterality Modality Other Narrative 03/01/2025 2:18 PM EDT PROCEDURE PHYSICIAN: Dylon Kate MD . Indications: Sebastian Hannon is a 89 y.o. male who has history of heart failure with improved ejection fraction. He was evaluated in clinic due to dyspnea and pulmonary hypertension. He was referred for right heart catheterization. Assistants: Dr Marion Ely. Procedure Performed: Right heart catheterization. Access into the right internal jugular vein under ultrasound guidance. Methods: Procedure was explained to the patient with risks and benefits; he signed informed consent. he was brought to the labor arbitrator hearing office in a fasting state. The right neck area was prepped and draped in usual fashion. Micropuncture technique was used for access under ultrasound guidance into the right internal jugular vein. A 6-Belarusian x 11 cm sheath was placed. A 6-Bel[place]ian Parra catheter was used for right heart catheterization and measurement of pressures and calculation of cardiac output using the estimated Bryon method. Parra catheter was removed. Hemostasis was achieved by manual compression in the internal jugular vein. he tolerated the procedure well and was transferred back to the cardiovascular recovery area. Hemodynamic Data: RA: 10 RV: 56/12, 10 [...] for evaluation of the bioprosthetic mitral valve. Dylon Kate MD Study Details Heart failure with improved ejection fraction (HFimpEF) ([facility]) [I50.32]Pulmonary HTN ([facility]) [I27.20] Dylon Kate MD CV CARDIAC CATH PROCEDURES F inal Result * (ABNORMAL) POC Hb02% (03/01/2025 2:04 PM EDT) PGRINB17% 62.6(A) 90 - 95 % QC Pass/Fail Passed QC LOT # [id number] QC Expiration Date 73,126 SAMPLESITE nl Blood Venous blood specimen / Unknown 03/01/2025 2:04 PM EDT Narrative [place] - 03/02/2025 6:20 AM EDT Insurance Claims Adjuster [id number] Dylon Kate MD POINT OF CARE TEST ENTER/BRIANA T ORDERABLES Final Result * POCT INR manually resulted (03/01/2025 9:02 AM EDT) INR 2.9 Protime NA QC Pass/Fail Passed QC LOT # [id number] QC Expiration Date 06/03/25 Blood Venous blood specimen / Unknown 03/01/2025 9:02 AM EDT Dylon Kate MD POINT OF CARE TEST ENTER/BRIANA T ORDERABLES Final Result from Last 3 Months Insurance MEDICARE Member Subscriber Plan / Payer (Ef fective 2002-Present) Name:Sebastian Hannon Member ID:[id number] Relation to Subscriber:Self Name:Sebastian Hannon Subscriber ID:[id number] Payer ID:[id number] Group ID:Not on file Type:Medicare Address: [facility] [address] Advance Directives * Full Code (Latest Code Status on File) Date Activated Date Inactivated Comments 03/01/2025 2:15 PM 03/01/2025 4:37 PM Care Teams Front Man Relationship Specialty Start Date End Date Steve Vargas DO [address] [place] [id number] PCP - General 06/06/22
--- OUTSIDE RECORDS SUMMARY | 2025-03-28 08:21 | XMS_ITS | Clinical Summary ---
Author Organization [facility] Address [address] [place] [address] Phone Care Team Providers Care Head Of Strategy Name Role Phone Sam Steve Saldana Primary Care Provider [phone] Allergies Active Allergy Reactions Criticality Noted Date Comments Latex Hives,Itching 07/10/2019 Penicillins Other 09/21/2014 Makes my eyes red Medications calcium carbonate-vitam in D3 500 mg-3.125 mcg (125 unit) tablet tablet Take 1 tablet by mouth once daily. Active cholecalciferol (Vitamin D-3) 5,000 Units tablet Take 1 tablet every other day by oral route. Active finasteride (Proscar) 5 mg tablet Take 1 tablet (5 mg) by mouth once daily. Active alfuzosin (Uroxatral) 10 mg 24 hr tablet Take 1 tablet (10 mg) by mouth once daily. Active metoprolol succinate XL (Toprol-XL) 50 mg 24 hr tablet Take 1 tablet (50 mg) by mouth once daily. Active leflunomide (Arava) 20 mg tablet Take 1 tablet (20 mg) by mouth every other day. Active spironolactone (Aldactone) 25 mg tablet Take 1 tablet (25 mg) by mouth once daily. Active ferrous sulfate, 325 mg ferrous sulfate, tablet Take 65 mg by mouth once daily. Active atorvastatin (Lipitor) 40 mg tablet Take 1 tablet (40 mg) by mouth once daily in the morning. Take before meals. 3 Active losartan (Cozaar) 50 mg tablet Take 1 tablet (50 mg) by mouth once daily. 3 Active warfarin (Coumadin) 5 mg tablet TAKE 1 TO 1 & 1/2 (ONE & ONE-HALF) TABLETS BY MOUTH ONCE DAILY OR DIRECTED BY MEDICATION MANAGEMENT CLINIC Active hydroxychloroqu ine (Plaquenil) 200 mg tablet TAKE 1 TABLET BY MOUTH ONCE DAILY ALTERNATING WITH 1 TABLET TWICE DAILY WITH FOOD. CONFIRM WITH EYE DOCTOR ON YEARLY EYE EXAM FOR MEDICATION TOXICITY. Active traMADol (Ultram) 50 mg tabletIndicatio ns:Malignant melanoma of forehead (Multi),Post-op pain Take 1 tablet (50 mg) by mouth every 6 hours if needed for severe pain (7 - 10). 10 tablet 4 Active Additional Information Patient not taking.Reported on 2024 furosemide (Lasix) 20 mg tablet Take by mouth. Activ e amLODIPine (Norvasc) 2.5 mg tablet Take 1 tablet (2.5 mg) by mouth once daily. Active Active Problems Problem Noted Date Diagnosed Date HTN (hypertension) 10/28/2023 Hyperlipidemia 10/28/2023 Atrial fibrillation (Multi) 10/28/2023 Malignant melanoma of forehead (Multi) 4 Encounters Date Type Department Care Team Description 01/12/2025 Abstract [facility] [address] [place] [address] Elkin Holly MD 01/12/2025 Abstract [facility] [address] [place] [address] Elkin Holly MD from Last 3 Months Social History Tobacco Use Types Packs/Day Years Used Date Smoking Tobacco: Never Smokeless Tobacco: Never Tobacco Cessation:Counseling Given: Not Answered Alcohol Use Standard Drinks/Week Comments Never 0 (1 standard drink = 0.6 oz pur e alcohol) PHQ-2 Answer Date Recorded Patient Health Questionnaire-2 Score 0 11/08/2023 Sex and Gender Information Value Date Recorded Sex Assigned at Not on file Legal Sex Male 11:51 AM EST Gender Identity Not on file Sexual Orientation Not on file Last Filed Vital Signs Vital Sign Reading Time Taken Comments Blood Pressure 135/69 01/17/2024 3:05 PM EDT Pulse 60 10/28/2023 6:15 PM EST Temperature 36.5 C (97.7 F) 01/17/2024 3:05 PM EDT Respiratory Rate 12 10/28/2023 6:15 PM EST Oxygen Saturation 100% 10/28/2023 6:15 PM EST Inhaled Oxygen Concentration - - Weight 75.2 kg (165 lb 12.8 oz) 2024 3:15 PM EDT Height 179.1 cm (5' 10.5 ) 2024 3:15 PM ED T Body Mass Index 23.45 2024 3:15 PM EDT Plan of Treatment Health Maintenance Due Date Last Done Comments Creatinine Level 1935 Echocardiogram 1935 Lipid Panel 1935 Medicare Annual Wellness Visit (AWV) 1935 Potassium Level 1935 Skin Cancer Screening 1937 Diabetes Screening 1955 Zoster Vaccines (1 of 2) 1987 RSV High Risk: (Elderly (60+) or Population) (1 - 1-dose 75+ series) 2012 DTaP/Tdap/Td Vaccines (1 - Tdap) 06/17/2013 06/16/2013, 04/06/2011 COVID-19 Vaccine ( - season) 2024 08/05/2022, 10/17/2021, 12/03/2020, Additional history exists Pneumococcal Vaccine Completed 08/12/2023, 10/04/2018, 07/19/2015, Additional history exists Influenza Vaccine Completed 07/20/2024, , 08/20/2022, Additional history exists HIB Vaccines Aged Out No longer eligi ble based on patient's age to complete this topic HPV Vaccines (No Doses Required) Completed Hepatitis A Vaccines Aged Out No long er eligible based on patient's age to complete this topic Hepatitis B Vaccines Aged Out No long er eligible based on patient's age to complete this topic IPV Vaccines Aged Out No longer eligi ble based on patient's age to complete this topic Meningococcal Vaccine Aged Out No delbert alejandro eligible based on patient's age to complete this topic Rotavirus Vaccines Aged Out No longer eligible based on patient's age to complete this topic Medical Devices Implanted Type Area Environmental Engineering Assistant Device Identifier Shelf Expiration Date Model / Serial / Lot Cardiac Pacemaker Cardiac Pacemaker Chest Aicd Chest Insurance MEDICARE PART A AND B Member Subscriber Plan / Payer (Ef fective 2002-Present) Name:Sebastian Hannon Member ID:[id number] Relation to Subscriber:Self Name:Sebastian Hannon Subscriber ID:[id number] Payer ID:Not on file Group ID:Not on file Type:Not on file Address: [address] MED[address] [address] [address] Care Teams Head Of Strategy Relationship Specialty Start Date End Date Steve Vargas DO PCP - General Internal Medicine 10/28/23
--- OUTSIDE RECORDS SUMMARY | 2025-03-28 08:21 | XMS_ITS | Encounter Summary ---
Author Organization [facility] Address [address] [place] [address] Care Team Providers Care Navigating Officer Name Role Phone Steve Vargas DO Primary Care Provider [phone] Tereso Ram OD Unavailable Encounter Details Date Type Department Care Team (Late st Contact Info) Description 10/02/2024 External Result Encounter [facility] External Department Unsolicited Adilene Weinberg MD [address] [place] [address] Social History Tobacco Use Types [...] Procedure Name Priority Date/Time Associated Diagnosis Comments US LOWER EXTREMITY NON-VASC RIGHT 10/02/2024 5:27 PM EST documented in this encounter Results * US LOWER EXTREMITY NON-VASC RIGHT (10/02/2024 5:27 PM EST) Anatomical Region Laterality Modality Right Ultrasound 10/02/2024 5:27 PM EST Impressions 10/02/2024 5:32 PM EST No worrisome mass or adenopathy of the neck. Continued clinical concern may be further assessed with contrasted CT of neck. Impression dictated by: Abdoul William M.D.10/02/2024 5:30 PM Dictation Location: [place] [address] Tech: Siria Gardner Transcribed By: PHYLLIS 10/02/24 6340 Dictated By: Abdoul William DO 10/02/241726 Signed By: <Electronically signed by Abdoul William DO in OV> 10/02/241729 Narrative 10/02/2024 5:32 PM EST [place] [id number] Ultrasound Report Signed Patient: Sebastian Hannon MR#: [id number] 0 : 1935 Acct:[id number] Age/Sex: 89 / M ADM Date: 10/02/24 Loc: UL Room: Type: REG CLI Attending Dr: Adilene Weinberg MD Ordering Provider: Adilene Weinberg MD Date of Service: 10/02/24 US/US extremity nonvascular: surveillance Copies to: Adilene Weinberg MD Nonvascular extremity ultrasound 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 COMPARISON: PET/CT scan 06/30/2024 which was negative. The right and left portion of the neck were scanned. No focal abnormality identified. No mass. No adenopathy. US/US extremity nonvascular Procedure Note Radiology, Radiologist, MD - 10/02/2024 [place] [id number] Ultrasound Report Signed Patient: Sebastian Hannon LMR#: [id number] 0 : 1935cct:[id number] Age/Sex: 89 / MADM Date: 10/02/24 Loc: UL Room:Type: REG CLI Attending Dr: Adilene Weinberg MD Ordering Provider: Adilene Weinberg MD Date of Service: 10/02/24 US/US extremity nonvascular: surveillance Copies to: Adilene Weinberg MD Nonvascular extremity ultrasound 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 COMPARISON: PET/CT scan 06/30/2024 which was negative. The right and left portion of the neck were scanned. No focal abnormalityidentified. No mass. No adenopathy. US/US extremity nonvascular IMPRESSION: No worrisome mass or adenopathy of the neck. Continued clinical concernmay be further assessed with contrasted CT of neck. Impression dictated by: Abdoul William M.D.10/02/2024 5:30 PM Dictation Location: [place] [address] Tech: Siria Gardner Transcribed By: PHYLLIS 10/02/24 1730 Dictated By: Abdoul William DO 10/02/24 1727 Signed By: <Electronically signed by Abdoul William DO in OV> 10/02/24 1730 us Adilene Weinberg MD IMG US PROCEDURES Final Result documented in this encounter Visit Diagnoses Not on filedocumented in this encounter Care Teams Navigating Officer Relationship Specialty Start Date End Date Steve Vargas DO PCP - General Internal Medicine 11/04/23 Tereso Ram OD [address] [place] [address] Referring Physician Optometry 02/16/24 documented as of this encounter
--- OUTSIDE RECORDS SUMMARY | 2025-03-28 08:22 | XMS_ITS | Encounter Summary ---
Author Organization [facility] Address [address] [place] [address] Care Team Providers Care Resident Service Coordinator Name Role Phone Steve Vargas DO Primary Care Provider LeannaTereso OD Unavailable Encounter Details Date Type Department Care Team (Late st Contact Info) Description 06/12/2024 External Result Encounter [facility] External Department Unsolicited Adilene Weinberg MD [address] [place] [address] Social History Tobacco Use Types Packs/Day Years [...] Name Priority Date/Time Associated Diagnosis Comments CT CHEST W IV CONTRAST 06/12/2024 12:49 PM EDT documented in this encounter Results * CT chest w IV contrast (06/12/2024 12:49 PM EDT) Anatomical Region Laterality Modality Body, Chest Computed Tomogra phy 06/12/2024 12:4 9 PM EDT Impressions 06/12/2024 1:06 PM EDT No evidence of pulmonary metastatic disease. There is redemonstration of cardiomegaly. There is a 6 mL matter enhancing focus in the dome of the right hepatic lobe. Please see separately dictated abdomen and pelvis CT for further detail. Impression dictated by: Tereso Lynn M.D.06/12/2024 1:04 PM Dictation Location: [place] [address] Transcribed By: [facility] 06/12/24 1304 Dictated By: Tereso Lynn II, MD 06/12/24 1249 Signed By: <Electronically signed by Tereso Lynn II, MD in OV> 06/12/24 1304 Narrative 06/12/2024 1:06 PM EDT [facility] [place] [address] [place] [address] CT Scan Report Signed Patient: Sebastian Hannon MR#: [id number] 0 : 1935 Acct:[id number] Age/Sex: 88 / M ADM Date: 06/12/24 Loc: Room: Type: [facility] Attending [...] fractures are noted. 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 Multiplanar reformats were performed and viewed on a separate workstation and reviewedto further define anatomy and possible pathology. CT was performed with one or more of the followingdose reduction techniques: Automated exposure control, adjustment of the mA and/or kVaccording to patient size, or use of iterative reconstruction technique. COMPARISON: 11/19/2023. FINDINGS: Lower neck: Thyroid gland within normal limits, no supraclavicleadenopathy. Vessels: Atherosclerotic changes are noted in the thoracic aorta, coronaryarteries, and at the origins of the great vessels. There is no evidence of pulmonary motion. Mediastinum and [place]: Within normal limits. Heart: There is cardiomegaly. No pericardial effusion. There is evidenceof previous mitral valve repair. Pacer leads are present. Airways: Within normal limits Lungs: Mild linear scarring is noted in the lung bases. Pleura: Within normal limits. Chest Wall: Within normal limits. Upper Abdomen: There is a 6 mL matter enhancing focus in the dome of theright hepatic lobe. Bones: There is evidence of prior sternotomy. Degenerative changes arenoted in the thoracic spine. Remote healed right anterior fractures are noted. CT/CT chest w con IMPRESSION: No evidence of pulmonary metastatic disease. There is redemonstration of cardiomegaly. There is a 6 mL matter enhancing focus in the dome of the right hepaticlobe. Please see separately dictated abdomen and pelvis CT for further detail. Impression dictated by: Tereso Lynn M.D.06/12/2024 1:04 PM Dictation Location: [place] [address] Transcribed By: [facility] 06/12/24 1304 Dictated By: Tereso Lynn II, MD 06/12/24 1249 Signed By: <Electronically signed by Tereso Lynn II, MD inOV> 06/12/24 1304 Adilene Weinberg MD IMG CT PROCEDURES Final Result documented in this encounter Visit Diagnoses Not on filedocumented in this encounter Care Teams Resident Service Coordinator Relationship Specialty Start Date End Date Steve Vargas DO PCP - General Internal Medicine 11/04/23 Tereso Ram OD [address] [place] [address] Referring Physician Optometry 02/16/24 documented as of this encounter
--- OUTSIDE RECORDS SUMMARY | 2025-03-28 08:22 | XMS_ITS | Encounter Summary ---
Author Organization [facility] Address [address] [place] [address] Care Team Providers Care Entrepreneur Name Role Phone Steve Vargas DO Primary Care Provider [phone] Tereso Ram OD Unavailable Encounter Details Date Type Department Care Team (Late st Contact Info) Description 11/29/2023 External Result Encounter [facility] External Department Unsolicited Adilene Weinberg MD [address] [place] [address] Social History Tobacco Use Types Packs/Day Years Used Date Smoking Tobacco: Never Assessed Sex and Gender Information Value Date Recorded Sex Assigned at Not on file Legal Sex Male 8:33 PM EDT Gender Identity Not on file Sexual Orientation Not on file documented as of this encounter Plan of Treatment Not on file documented as of this encounter Procedures Procedure Name Priority Date/Time Associated Diagnosis Comments CT HEAD W AND WO IV CONTRAST 11/29/2023 3:06 PM EST documented in this encounter Results * CT head w and wo IV contrast (11/29/2023 3:06 PM EST) Anatomical Region Laterality Modality Head, Neck Computed Tomogra phy 11/29/2023 3:06 PM EST Impressions 11/29/2023 3:12 PM EST No acute findings. No malignant or metastatic disease. No pathologic enhancement. Impression dictated by: Abdoul William M.D.11/29/2023 3:10 PM Dictation Location: [place] [address] Transcribed By: [facility] 11/29/23 1510 Dictated By: Abdoul William DO 11/29/23 1506 Signed By: <Electronically signed by Abdoul William DO in OV> 11/29/23 1510 Narrative 11/29/2023 3:12 PM [facility] [place] [address] CT Scan Report Signed Patient: Sebastian Hannon MR#: [id number] 0 : 1935 Acct:[id number] Age/Sex: 88 / M ADM Date: 11/29/23 Loc: XT Room: Type: [facility] R[facility] Attending Dr: Adilene Weinberg MD Copies [...] Intact ADDITIONAL FINDINGS: CT/CT head/brain wo/w con Procedure Note Radiology, Radiologist, MD - 11/29/2023 [facility] Main [place] [id number] CT Scan Report Signed Patient: Sebastian Hannon LMR#: [id number] 0 : 1935cct:[id number] Age/Sex: 88 / MADM Date: 11/29/23 Loc: XT Room:Type: [facility]CR Attending Dr: Adilene Weinberg MD Copies to: Adilene Weinberg MD Ordering Provider: Adilene Weinberg MD Date of Service: 11/29/23 CT/CT head/brain wo/w con: C43.4 - Malignantmelanoma of scalp and neck Enhanced and unenhanced head CT TECHNIQUE: Contiguous axial imaging of the head.90 cc of Isovue-300The CTexam was performed using one or more the following dose reduction techniques: Automated exposurecontrol, adjustment of the MA and/or Kv according to patient size, or use of the iterativereconstruction technique. COMPARISON: None HISTORY: Restage head and [...] findings. No malignant or metastatic disease. No pathologicenhancement. Impression dictated by: Abdoul William M.D.11/29/2023 3:10 PM Dictation Location: [place] [address] Transcribed By: [facility] 11/29/23 1510 Dictated By: Abdoul William DO 11/29/23 1506 Signed By: <Electronically signed by Abdoul William DO in OV> 11/29/23 1510 Adilene Weinberg MD IMG CT PROCEDURES Final Result documented in this encounter Visit Diagnoses Not on filedocumented in this encounter Care Teams Entrepreneur Relationship Specialty Start Date End Date Steve Vargas DO PCP - General Internal Medicine 11/04/23 Tereso Ram OD [address] [place] [address] Referring Physician Optometry 02/16/24 documented as of this encounter
--- OUTSIDE RECORDS SUMMARY | 2025-03-28 08:22 | XMS_ITS | Encounter Summary ---
Author Organization [facility] Address [address] [place] [address] Care Team Providers Care Eligibility Services Representative Name Role Phone Steve Vargas DO Primary Care Provider [phone] Tereso Ram OD Unavailable Encounter Details Date Type Department Care Team (Late st Contact Info) Description 06/12/2024 External Result Encounter [facility] External Department Unsolicited Adilene Weinberg MD [address] [place] [address] Social History Tobacco Use Types [...] CT HEAD W AND WO IV CONTRAST 06/12/2024 11:54 AM EDT documented in this encounter Results * CT head w and wo IV contrast (06/12/2024 11:54 AM EDT) Anatomical Region Laterality Modality Head, Neck Computed Tomogra phy 06/12/2024 11:5 4 AM EDT Impressions 06/12/2024 12:00 PM EDT ATROPHY AND CHRONIC MICROVASCULAR DISEASE. NO ACUTE INTRACRANIAL FINDINGS OR SUSPECTED METASTATIC DISEASE.. Impression dictated by: Hafsa Keen M.D.06/12/2024 11:58 AM Dictation Location: [place] [address] Transcribed By: PHYLLIS 06/12/24 1158 Dictated By: Hafsa Keen MD 06/12/24 1154 Signed By: <Electronically signed by MD Hafsa Keen in OV> 06/12/24 1158 Narrative 06/12/2024 12:00 PM EDT [facility] [place] [address] CT Scan Report Signed Patient: Sebastian Hannon MR#: [id number] 0 : 1935 Acct:[id number] Age/Sex: 88 / M ADM Date: 06/12/24 Loc: XT Room: Type: REG RCR Attending [...] con Procedure Note Radiology, Radiologist, MD - 06/12/2024 [facility] Main [place] [id number] CT Scan Report Signed Patient: Sebastian Hannon LMR#: [id number] 0 : 7Acct:[id number] Age/Sex: 88 / MADM Date: 06/12/24 Loc: XT Room:Type: REG RCR Attending Dr: Adilene Weinberg MD Copies to: Adilene Weinberg MD Ordering Provider: Adilene Weinberg MD Date of Service: 06/12/24 CT/CT head/brain wo/w con: C43.4 - Malignantmelanoma of scalp and neck CT BRAIN WITHOUT [...] atrophy is again seen. The ventricles are withinnormal limits for size and position. Similar chronic microvascular changes are noted. There are nodeveloping areas of abnormal attenuation or enhancement. There is no hemorrhage, mass effect orextra-axial collections. The imaged paranasal sinuses and mastoid air cells are clear. There isvertebral artery and carotid siphon plaque. CT/CT head/brain wo/w con IMPRESSION: ATROPHY AND CHRONIC MICROVASCULAR DISEASE. NO ACUTE INTRACRANIAL FINDINGS OR SUSPECTED METASTATIC DISEASE.. Impression dictated by: Hafsa Keen M.D.06/12/2024 11:58 AM Dictation Location: [place] [address] Transcribed By: [facility] 06/12/24 1158 Dictated By: Hafsa Keen MD 06/12/24 1154 Signed By: <Electronically signed by MD Hafsa Keen in OV> 06/12/24 1158 Adilene Weinberg MD IMG CT PROCEDURES Final Result documented in this encounter Visit Diagnoses Not on filedocumented in this encounter Care Teams Eligibility Services Representative Relationship Specialty Start Date End Date Steve Vargas DO PCP - General Internal Medicine 11/04/23 Tereso Ram OD [address] [place] [address] Referring Physician Optometry 02/16/24 documented as of this encounter
--- OUTSIDE RECORDS SUMMARY | 2025-03-28 08:22 | XMS_ITS | Clinical Summary ---
Author Organization [facility] Address [address] [place] [address] Care Team Providers Care Slicing Machine Tender Name Role Phone Steve Vargas DO Primary Care Provider [phone] Allergies Active Allergy Reactions Criticality Noted Date [...] Thrombocytopenia 05/02/2024 Cardiac resynchronization th erapy defibrillator ([employer] SALES REPRESENTATIVE-D) in place 05/02/2024 Brow ptosis 02/16/2024 Dermatochalasis of both upper eyelids 02/16/2024 Malignant melanoma of forehead 10/08/2023 Benign prostatic hyperplasia with urinary obstru ction 09/24/2022 History of malignant neoplasm of prostate 2021 Microscopic hematuria 09/24/2022 Nocturia 09/24/2022 Post-void dribbling 09/24/2022 Flushing 06/06/2022 Myocardiopathy 07/07/2019 Overview (09/24/2022): Added automatically from request for surgery [id number] Hypertensive disorder 06/15/2014 Carotid artery occlusion 08/22/2013 Chronic systolic heart failure 05/30/2013 Pulmonary heart disease, unspecified 03/14/2013 Dyspnea 02/21/2013 Cardiac pacemaker in situ 11/21/2012 History of cardiovascular disorder 11/07/2012 Cardiovascular system problem 10/25/2012 Syncope and collapse 10/25/2012 Mitral valve disorder 01/19/2012 Primary malignant neoplasm of prostate 2 Atrial fibrillation 01/12/2012 Coronary atherosclerosis 01/12/2012 Family history of prostate cancer 01/12/2012 Hyperlipidemia 01/12/2012 Encounters Date Type Department Care Team Description 03/14/2025 2:45 PM EDT Follow-Up [facility] [address] [address] Dylon Kate MD 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) (Primary Dx); Pulmonary HTN (CMS/HCC); 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; Status post insertion of drug eluting coronary artery stent; PAF (paroxysmal atrial fibrillation) (CMS/HCC); Cardiac resynchronization therapy defibrillator ([employer] SALES REPRESENTATIVE-D) in place; History of coronary artery bypass surgery 03/12/2025 8:30 AM EDT Ancillary Procedure [facility] [address] [place] [id number] Pre-operative cardiovascular examination, ICD in place 03/12/2025 Orders Only [facility] [address] [place] [id number] Yue Grider MD 03/01/2025 12:00 PM EDT - 03/01/2025 1:00 PM EDT Surgery [facility] [address] [place] [phone] Dylon Kate MD Right heart cath [67544 (CPT )] 03/01/2025 8:50 AM EDT - 03/01/2025 2:37 PM EDT Hospital Encounter [facility] Heart [facility] [address] [place] [address] Dylon Kate MD Pulmonary heart disease, unspecified (CMS/HCC) (Primary Dx); 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); Pulmonary HTN (CMS/HCC); Edema, unspecified type; Acute combined systolic and diastolic heart failure (CMS/HCC) Discharge Disposition: Home or Self Care () 03/01/2025 Travel 02/20/2025 Travel 02/09/2025 8:30 AM EDT Ancillary Procedure [facility] [address] [place] [address] Pre-operative cardiovascular examination, ICD in place 02/09/2025 Orders Only [facility] [address] [place] [phone] Filippo Little MD 02/09/2025 Orders Only [facility] [address] [place] [phone] Filippo Little MD 02/08/2025 Refill [facility] [address] [place] [place] [id number] Carina [place] MA Acute combined systolic and diastolic heart failure (CMS/HCC) 01/29/2025 Refill [facility] [address] [facility] [place] [address] Karen Moody MA 01/29/2025 Refill [facility] [address] [facility] [place] [address] Karen Moody MA 01/24/2025 9:00 AM EDT Office Visit [facility] [address] [facility] [place] [address] Dylon Kate MD 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) (Primary Dx); Pulmonary HTN (CMS/HCC); 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; Status post insertion of drug eluting coronary artery stent; PAF (paroxysmal atrial fibrillation) (CMS/HCC); Cardiac resynchronization therapy defibrillator ([employer] SALES REPRESENTATIVE-D) in place; History of coronary artery bypass surgery 01/10/2025 3:50 PM EDT Ancillary Procedure [facility] [address] [place] [address] Pre-operative cardiovascular examination, ICD in place from Last 3 Months Family History Medical History Relation Name Comments Coronary artery disease Father malignant neoplastic Mother Relation Name Status Comments Father Mother Social History Tobacco Use Types Packs/Day Years [...] Description 04/24/2025 9:00 AM EDT Ancillary Procedure [facility] [address] [facility] [place] [address] 04/30/2025 9:45 AM EDT Office Visit [facility] [address] [facility] [place] [address] Dylon Kate MD [address] [facility] [place] [phone] Health Maintenance Due Date Last Done Comments Medicare Annual Wellness (AWV) 1935 Depression Screening 1949 Adult Tetanus 1959 Zoster Vaccines (1 of 2) 1987 Fall Risk Screening 2002 Pneumococcal Vaccine: 50+ Years (2 of 2 - PPSV23, PCV20, or PCV21) 11/29/2018 10/04/2018 COVID-19 Vaccine ( season) 2024 08/05/2022, 10/17/2021, 12/09/2020, Additional history exists Influenza Vaccine Completed 07/20/2024, , 06/30/2018, Additional history exists HIB Vaccines Aged Out No longer eligi ble based on patient's age to complete this topic HPV Vaccines Aged Out No longer eligi ble based on patient's age to complete this topic IPV Vaccines Aged Out No longer eligi ble based on patient's age to complete this topic Meningococcal B Vaccine Aged Out No l onger eligible based on patient's age to complete this topic Meningococcal Vaccine Aged Out No delbert alejandro eligible based on patient's age to complete this topic Rotavirus Vaccines Aged Out No longer eligible based on patient's age to complete this topic Medical Devices Implanted Type Area Credit Intern Device Identifier Shelf Expiration Date Model / Serial / Lot [id number] Acticor 7 Hf-T Qp [id number] Implanted:08/25 (Quantity not on file) [employer] SALES REPRESENTATIVE-D ICD [id number] ACTICOR 7 HF-T QP / [id number] / [id number] Optim [id number] Implanted:10/28 (Quantity not on file) Lead 1888TC [address] OPTIM / [id number] / [id number] Plex[employer] Promri S 65 [id number] Implanted:08/25 (Quantity not on file) Lead [id number] PLEXA PROMRI S 65 / [id number] / [id number] Sentus Promri Otw Qp L-85/49 [id number] Implanted:08/25 (Quantity not on file) Lead [id number] SENTUS PROMRI OTW QP L-85/49 / [id number] / Procedures Procedure Name Priority Date/Time Associated Diagnosis Comments CARDIAC DEVICE CHECK CHECK - REMOTE Routine 03/20/2025 2:03 PM EDT Pre-operative cardiovascular examination, ICD in place CARDIAC DEVICE CHECK - REMOTE - ICD Routine 03/12/2025 12:00 AM EDT RIGHT HEART CATH Routine 03/01/2025 2:09 PM EDT 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 BSA 1.91 m2 [facility] Filippo Little MD CV IMPLANTABLE CARDIAC DEVICE UT OCEDURES Final Result CPACS * Cardiac device check - Remote ICD (03/12/2025 12:00 AM EDT) Only the most recent of3 resultswithin the time period is included. Anatomical Region Laterality Modality Other 03/12/2025 Yue [...] informed consent. he was brought to the laborer cheesemaking in a fasting state. The right neck area was prepped and draped in usual fashion. Micropuncture technique was used for access under ultrasound guidance into the right internal jugular vein. A 6-Senegalese x 11 cm sheath was placed. A 6-Senegalese Parra catheter was used for right heart [...] failure with improved ejection fraction (HFimpEF) (CMS/HCC) [I50.32]Pulmonary HTN (CMS/HCC) [I27.20] Dylon Kate MD CV CARDIAC CATH PROCEDURES F inal Result * (ABNORMAL) POC Hb02% (03/01/2025 2:04 PM EDT) HSVBIC19% 62.6(A) 90 - 95 % QC Pass/Fail Passed QC LOT # [id number] QC Expiration Date 73,126 SAMPLESITE nl Blood Venous blood specimen / Unknown 03/01/2025 2:04 PM EDT Narrative [place]co Hendrix [place] - 03/02/2025 6:20 AM EDT Fireman Helper [phone] Dylon Kate MD POINT OF CARE [...] Result from Last 3 Months Insurance MEDICARE [facility] Advance Directives * Full Code (Latest Code Status on File) Date Activated Date Inactivated Comments 03/01/2025 2:15 PM 03/01/2025 4:37 PM Care Teams Slicing Machine Tender Relationship Specialty Start Date End Date Steve Vargas DO [address] [facility] [place] [address] PCP - General 06/06/22
--- OUTSIDE RECORDS SUMMARY | 2025-03-28 08:23 | XMS_ITS | Encounter Summary ---
Author Organization [facility] Address [address] [place] [address] Care Team Providers Care Cane Flume Chute Operator Name Role Phone tSeve Vargas DO Primary Care Provider [phone] LeannaTereso peters OD Unavailable Encounter Details Date Type Department Care Team (Late st Contact Info) Description 06/12/2024 External Result Encounter [facility] External Department Unsolicited Adilene Weinberg MD [address] [place] [address] Social History Tobacco Use Types [...] CT SOFT TISSUE NECK W IV CONTRAST 06/12/2024 12:13 PM EDT documented in this encounter Results * CT soft tissue neck w IV contrast (06/12/2024 12:13 PM EDT) Anatomical Region Laterality Modality Head, Neck Computed Tomogra phy 06/12/2024 12:1 3 PM EDT Impressions 06/12/2024 12:27 PM EDT No evidence of mass, soft tissue swelling, or abnormality enhancement. Impression dictated by: Tereso Lynn M.D.06/12/2024 12:24 PM Dictation Location: [place] [address] Transcribed By: [facility] 06/12/24 1224 Dictated By: Tereso Lynn II, MD 06/12/24 1213 Signed By: <Electronically signed by Tereso Lynn II, MD in OV> 06/12/24 1224 Narrative 06/12/2024 12:27 PM EDT [place] [id number] CT Scan Report Signed Patient: Sebasitan Hannon MR#: [id number] 0 : 1935 Acct:[id number] Age/Sex: 88 / M ADM Date: 06/12/24 Loc: XT Room: Type: [facility] RCR Attending Dr: Adilene Weinberg MD [...] limits. CT/CT soft tissue neck w con Procedure Note Radiology, Radiologist, - 06/12/[address] [place] [address] CT Scan Report Signed Patient: Sebastian Hannon LMR#: [id number] 0 : 1935cct:[id number] Age/Sex: 88 / MADM Date: 06/12/24 Loc: XT Room:Type: [facility] Attending Dr: Adilene Weinberg MD Copies to: Adilene Weinberg MD Ordering Provider: Adilene Weinberg MD Date of Service: 06/12/24 CT/CT soft tissue neck w con: C43.4 - Malignantmelanoma of scalp and neck CT soft tissue neck w con 06/12/2024 8:42 AM SIGNS AND SYMPTOMS: Malignant melanoma of scalp and neck CONTRAST: 90 mL of intravenous Isovue-300 TECHNIQUE: Multidetector CT axial slices of the soft tissues of the neckwere obtained with IV contrast. Sagittal and coronal reformats were reconstructed. CT wasperformed with one or more of the following dose reduction techniques: Automated exposure control,adjustment of the mA and/or kV according to patient size, or use of iterative reconstruction technique. COMPARISON: 11/19/2023 FINDINGS: Soft tissues of the orbits are within normal limits. The soft tissues ofthe infratemporal fossa fossa structures show no acute abnormality. Mucosal surfaces of thenasopharynx, oropharynx, hypopharynx, glottic, and subglottic airways are grossly unremarkable. The parotid glands, submandibular, and the thyroid gland are within normallimits. The carotid and jugular circulations are within normal limits. The visualized lung parenchyma shows no acute pathology. No acute bony abnormalities are appreciated. Degenerative changes arepresent in the cervical spine. The skull base, craniocervical junction, atlantoaxial joints are withinnormal limits. The paranasal sinuses are within normal limits. CT/CT soft tissue neck w con IMPRESSION: No evidence of mass, soft tissue swelling, or abnormality enhancement. Impression dictated by: Tereso Lynn M.D.06/12/2024 12:24 PM Dictation Location: [place] [address] Transcribed By: [facility] 06/12/24 1224 Dictated By: Tereso Lynn II, MD 06/12/24 1213 Signed By: <Electronically signed by Treeso Lynn II, MD inOV> 06/12/24 1224 us Adilene Weinberg MD IMG CT PROCEDURES Final Result documented in this encounter Visit Diagnoses Not on filedocumented in this encounter Care Teams Cane Flume Chute Operator Relationship Specialty Start Date End Date Steve Vargas DO PCP - General Internal Medicine 11/04/23 Tereso Ram OD [address] [place] [address] Referring Physician Optometry 02/16/24 documented as of this encounter
--- OUTSIDE RECORDS SUMMARY | 2025-03-28 08:23 | XMS_ITS | Clinical Summary ---
Author Organization [facility] Address [address] [place] [address] Care Team Providers Care Equipment Validation Specialist Name Role Phone Terrence Renteria MD Unavailable [phone] Steve Vargas DO Primary Care Provider [phone] Allergies Active Allergy Reactions Criticality Noted Date Comments Latex Itching 07/10/2019 Penicillins 07/10/2019 Medications metoprolol succinate 25 MG tablet XL Take 50 mg by mouth 2 times daily. Active clopidogrel 75 MG Tab tablet Take 75 mg by mouth daily. Active Alfuzosin HCl 10 MG Tab SR 24 HR Take 10 mg by mouth daily. Active finasteride 5 MG Tab tablet Take 5 mg by mouth daily. Active warfarin 5 MG tablet Take 5 mg by mouth daily. Active leflunomide 20 MG Tab tablet Take 20 mg by mouth daily. 100mg loading dose only for 3 days Active nitroGLYCERIN 0.[address] 0.4 mg under tongue every 5 minutes as needed for Chest pain. max = 3 doses. If CP persists after 1st dose, call 911 Active hydroxychloroqu ine 200 MG Tab tablet Take 200 mg by mouth 2 times daily. Active atorvastatin 40 MG Tab tablet Take 40 mg by mouth daily. Active losartan 50 MG Tab tablet Take 50 mg by mouth daily. Active Calcium 500-125 MG-UNIT Tab Take 1 tablet by mouth daily. Active Cholecalciferol (VITAMIN D) 4000 Units capsule Take 1 capsule by mouth every other day. Active Ferrous Sulfate (IRON) 325 (65 Fe) MG Tab Take 1 tablet by mouth daily. Active AMIOdarone 200 MG Tab Take 1 tablet by mouth daily. 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 Overview (07/07/2019): Added automatically from request for surgery [id number] Social History Tobacco Use Types Packs/Day Years Used Date Smoking Tobacco: Never Assessed Sex and Gender Information Value Date Recorded Sex Assigned at Not on file Legal Sex Male 5:19 PM EST Gender Identity Not on file Sexual Orientation Not on file Last Filed Vital Signs Vital Sign Reading Time Taken Comments Blood Pressure 160/83 06/29/2019 10:22 AM EDT Pulse 73 06/29/2019 7:07 AM EDT Temperature - - Respiratory Rate 16 06/29/2019 7:07 AM EDT Oxygen Saturation - - Inhaled Oxygen Concentration - - Weight 72.6 kg (160 lb 0.9 oz) 06/29/2019 10:22 AM EDT Height 177.8 cm (5' 10 ) 06/29/2019 10:22 AM EDT Body Mass Index 22.97 06/29/2019 10:22 AM EDT Plan of Treatment Health Maintenance Due Date Last Done Comments TETANUS 1935 TDAP (ADULT) 1956 COLORECTAL CANCER SCREENING DISCUSSION 1982 PNEUMOCOCCAL VACCINE SERIES (1 of 1 - PCV) 1987 ZOSTER (SHINGLES) VACCINE (1 of 2) 1987 RSV VACCINE (1 - 1-dose 75+ series) 2012 COVID-19 VACCINE ( - 2023-2 5 season) 2024 INFLUENZA VACCINE (Season Ended) 2025 06/30/2018, 06/29/2017 HEP B VACCINE Aged Out No longer tanesha eclis based on patient's age to complete this topic Insurance MEDICARE SUPPLEMENT MEDICARE A AND B Care Teams Equipment Validation Specialist Relationship Specialty Start Date End Date Steve Vargas DO PCP - General Internal Medicine 08/11/19 Terrence Renteria MD Programming Instructor Cardiovascular Disease 07/12/19
--- OUTSIDE RECORDS SUMMARY | 2025-03-28 08:23 | XMS_ITS | Clinical Summary ---
Author Organization [facility] Address [address] [place] [address] Care Team Providers Care Representative Phlebotomy Services Name Role Phone Unavailable Primary Care Provider Unavailabl e Social History Tobacco Use Types Packs/Day Years Used Date Smoking Tobacco: Never Assessed Sex and Gender Information Value Date Recorded Sex Assigned at Not on file Legal Sex Male 5:27 PM EST Gender Identity Not on file Sexual Orientation Not on file Plan of Treatment Not on file
--- OUTSIDE RECORDS SUMMARY | 2025-03-28 08:23 | XMS_ITS | Encounter Summary ---
Author Organization [facility] Address [address] [place] [address] Care Team Providers Care Invasive Cardiovascular Technologist Name Role Phone Steve Vargas DO Primary Care Provider [phone] Tereso Ram OD Unavailable Encounter Details Date Type Department Care Team (Late st Contact Info) Description 03/14/2024 External Result Encounter [facility] External Department Unsolicited Adilene Weinberg MD [address] [place] [address] Social History Tobacco Use Types [...] Diagnosis Comments US LOWER EXTREMITY NON-VASC RIGHT 03/14/2024 2:33 PM EDT documented in this encounter Results * US LOWER EXTREMITY NON-VASC RIGHT (03/14/2024 2:33 PM EDT) Anatomical Region Laterality Modality Right Ultrasound 03/14/2024 2:33 PM EDT Impressions 03/14/2024 2:36 PM EDT No suspicious abnormality is seen involving the right neck to suggest metastatic disease. Impression dictated by: Festus Silver Jr. DSantosOSantos03/14/2024 2:34 PM Dictation Location: [place] [address] Tech: Rachelle Mckenzie Transcribed By: PHYLLIS 03/14/24 0874 Dictated By: Festus Silver Jr, DO 03/14/24 1433 Signed By: <Electronically signed by Festus Silver Jr, DO in OV> 03/14/24 1434 Narrative 03/14/2024 2:36 PM EDT [place] [id number] Ultrasound Report Signed Patient: Sebastian Hannon MR#: [id number] 0 : 1935 Acct:[id number] Age/Sex: 88 / M ADM Date: 03/14/24 Loc: XT Room: Type: [facility] RCR Attending Dr: Adilene Weinberg MD Ordering Provider: [...] fluid collection is seen. US/US extremity nonvascular Procedure Note Radiology, Radiologist, MD - 03/14/2024 [place] [id number] Ultrasound Report Signed Patient: Sebastian Hannon LMR#: [id number] 0 : 1935cct:[id number] Age/Sex: 88 / MADM Date: 03/14/24 Loc: XT Room:Type: [facility] RCR Attending Dr: Adilene Weinberg MD Ordering Provider: Adilene Weinberg MD Date of Service: 03/14/24 US/US extremity nonvascular: SurviellanceMelanoma Copies to: Adilene Weinberg MD Soft tissue ultrasound. Reason for exam: Malignant melanoma of the head. COMPARISON: None. TECHNIQUE: Grayscale and color Doppler images of the neck were obtained. FINDINGS: Imaging of the right neck demonstrates no suspicious lymph nodesor mass. No fluid collection is seen. US/US extremity nonvascular IMPRESSION: No suspicious abnormality is seen involving the right neck to suggestmetastatic disease. Impression dictated by: Festus Silver Jr., D.OSantos03/14/2024 2:34 PM Dictation Location: [place] [address] Tech: Rachelle Mckenzie Transcribed By: PHYLLIS 03/14/24 1434 Dictated By: Festus Silver Jr, DO 03/14/24 1433 Signed By: <Electronically signed by Festus Silver Jr, DO inOV> 03/14/24 1434 us Adilene Weinberg MD IMG US PROCEDURES Final Result documented in this encounter Visit Diagnoses Not on filedocumented in this encounter Care Teams Invasive Cardiovascular Technologist Relationship Specialty Start Date End Date Steve Vargas DO PCP - General Internal Medicine 11/04/23 Tereso Ram OD [address] [place] [address] Referring Physician Optometry 02/16/24 documented as of this encounter
--- OUTSIDE RECORDS SUMMARY | 2025-03-28 08:23 | XMS_ITS | Encounter Summary ---
Author Organization [facility] Address [address] [place] [address] Care Team Providers Care Administration Intern Name Role Phone Steve Vargas DO Primary Care Provider [phone] Encounter Details Date Type Department Care Team (Late st Contact Info) Description 02/09/2025 Orders Only [facility] [address] [place] [address] Filippo Little MD [address] [place] [address] Social History Tobacco Use Types [...] Description 04/24/2025 9:00 AM EDT Ancillary Procedure [facility] [address] [place] [phone] 04/30/2025 9:45 AM EDT Office Visit [facility] [address] [place] [address] Dylon Kate MD [address] [facility] [place] [phone] documented as of this encounter Procedures Procedure Name Priority Date/Time Associated Diagnosis Comments CARDIAC DEVICE CHECK - REMOTE - ICD Routine 02/09/2025 12:00 AM EDT documented in this encounter Results * Cardiac device check - Remote ICD (02/09/2025 12:00 AM EDT) Anatomical Region Laterality Modality Other 02/09/2025 Filippo Little MD CV IMPLANTABLE CARDIAC DEVICE NM OCEDURES Final Result documented in this encounter Visit Diagnoses Not on filedocumented in this encounter Care Teams Administration Intern Relationship Specialty Start Date End Date Steve Vargas DO [address] [facility] [place] [address] PCP - General 06/06/22 documented as of this encounter
--- OUTSIDE RECORDS SUMMARY | 2025-03-28 08:23 | XMS_ITS | Encounter Summary ---
Author Organization [facility] Address [address] [place] [address] Care Team Providers Care Communications Tower Technician Name Role Phone Terrence Renteria MD Unavailable [phone] Steve Vargas DO Primary Care Provider [phone] Reason for Visit * Reason Onset Date Comments Schedule Surgery 07/10/2019 Encounter Details Date Type Department Care Team (Late st Contact Info) Description 07/10/2019 Telephone Gluing Machine Operator Center Jasper Delcid [facility] [address] [place] [phone] Jasper Núñez Schedule Surgery Social History Tobacco Use Types Packs/Day Years Used Date Smoking Tobacco: Never Assessed Sex and Gender Information Value Date Recorded Sex Assigned at Not on file Legal Sex Male 5:19 PM EST Gender Identity Not on file Sexual Orientation Not on file documented as of this encounter Miscellaneous Notes * Telephone Encounter - Jasper Núñez - 07/10/2019 9:06 AM EDT Scheduled the patient for her Pacemaker Up Grade to Bi V Pacemaker On 08/18/19 @ 2:00, with 12:00 arrival time. At the [facility] With Dr. Sebastian Alvarado Mailed out my letter with procedure date and time along with a map and directions to the [place]. documented in this encounter Plan of Treatment Not on file documented as of this encounter Visit Diagnoses Not on filedocumented in this encounter Care Teams Communications Tower Technician Relationship Specialty Start Date End Date Steve Vargas DO PCP - General Internal Medicine 11/8/19 Terrence Renteria MD Shaper Set Up Operator Cardiovascular Disease 07/12/19 documented as of this encounter
--- OUTSIDE RECORDS SUMMARY | 2025-03-28 08:24 | XMS_ITS | Encounter Summary ---
Author Organization [facility] Address [address] [place] [address] Care Team Providers Care Scrip Clerk Name Role Phone Steve Vargas DO Primary Care Provider [phone] Reason for Visit * Reason Comments Med Refill Encounter Details Date Type Department Care Team (Late st Contact Info) Description 06/05/2023 Refill [facility] [address] [place] [phone] Dylon Kate MD [address] [facility] [place] [address] Persistent atrial fibrillation (CMS/HCC) Social History Tobacco Use Types Packs/Day Years Used Date Smoking Tobacco: Former Cigars Passive Smoke Exposure: Past Smokeless Tobacco: Never Alcohol Use Standard Drinks/Week Comments Not Currently 0 (1 standard drink = 0.6 oz pur e alcohol) Sex and Gender Information Value Date Recorded Sex Assigned at Not on file Legal Sex Male 10:09 PM EDT Gender Identity Not on file Sexual Orientation Not on file documented as of this encounter Plan of Treatment Upcoming Encounters Date Type Department Care Team (Late st Contact Info) Description 04/24/2025 9:00 AM EDT Ancillary Procedure [facility] [address] [place] [address] 04/30/2025 9:45 AM EDT Office Visit [facility] [address] [place] [address] Dylon Kate MD [address] [facility] [place] [phone] documented as of this encounter Visit Diagnoses Diagnosis Persistent atrial fibrillation (CMS/HCC) Atrial fibrillation documented in this encounter Care Teams Scrip Clerk Relationship Specialty Start Date End Date Steve Vargas DO [address] [place] [address] PCP - General 06/06/22 documented as of this encounter
--- OUTSIDE RECORDS SUMMARY | 2025-03-28 08:24 | XMS_ITS | Clinical Summary ---
Author Organization [facility] Address [address] [place] [address] Care Team Providers Care Financial Sales Representative Name Role Phone Unavailable Primary Care Provider Unavailabl e Allergies Active Allergy Reactions Criticality Noted Date Comments Latex Hives,Itching,Rash 07/10/2019 Penicillins Other: See Comments,Swelling,Unknown 09/21/2014 Makes my eyes red Medications Calcium-Cholecal ciferol, D3, 500 mg-3.125 mcg (125 unit) tab 1 tablet. 07/13/2017 Acti ve alfuzosin SR (UROXATRAL) 10 mg 24 hr tablet Take 10 mg by mouth once daily. 11/24/2023 Active finasteride (PROSCAR) 5 mg tablet Take 5 mg by mouth once daily. Active leflunomide (ARAVA) 20 mg tablet Take 20 mg by mouth once daily. 04/08/2020 Active metoprolol succinate ER (TOPROL XL) 50 mg 24 hr tablet Take 25 mg by mouth once daily. 10/26/2023 Active warfarin (COUMADIN) 5 mg tablet Take 5 mg by mouth once daily. 07/13/2017 Active losartan (COZAAR) 50 mg tablet Take 50 mg by mouth once daily. 07/13/2017 Active Social History Tobacco Use Types Packs/Day Years Used Date Smoking Tobacco: Never Smokeless Tobacco: Never Tobacco Cessation:Counseling Given: Not Answered Alcohol Use Standard Drinks/Week Comments Never 0 (1 standard drink = 0.6 oz pur e alcohol) Area Deprivation Index Answer Date Jose Alberto rded National Score (1-100), lower number is lower ri sk 80 05/01/2024 State Score (1-10), lower number is lower risk 7 05/01/2024 Data from: https://www.neighborhoodatlas.[facility]/. Last address used for calculation [address] 05/01/2024 Sex and Gender Information Value Date Recorded Sex Assigned at Not on file Legal Sex Male 8:10 AM EST Gender Identity Not on file Sexual Orientation Not on file Plan of Treatment Health Maintenance Due Date Last Done Comments Anxiety Screening 1953 Depression Screening 1953 Shingrix Vaccine (1 of 2) 1987 RSV Vaccine (1 - 1-dose 75+ series) 2012 DTaP,Tdap,Td Vaccine (1 - Tdap) 06/17/2013 3, 04/06/2011 Covid-19 Vaccine (2023-2 5 season) 2024 08/05/2022, 10/17/2021, 12/09/2020, Additional history exists Advance Directive Discussion 10/04/2024 Influenza Vaccine (Season Ended) 2025 07/05/2023, 08/20/2022, 07/22/2021, Additional history exists Diabetes Screening 03/14/2027 03/14/2024 Pneumococcal Vaccine: 50+ Completed 2022, 10/04/2018, 07/19/2015, Additional history exists Insurance MEDICARE [facility] MEDICARE SUPPLEMENT
--- OUTSIDE RECORDS SUMMARY | 2025-03-28 08:24 | XMS_ITS | Encounter Summary ---
Author Organization [facility] Address [address] [place] [address] Care Team Providers Care Labor Operator Name Role Phone Steve Vargas DO Primary Care Provider [phone] Reason for Visit * Reason Comments Med Refill Encounter Details Date Type Department Care Team (Late st Contact Info) Description 10/13/[address] [address] Filippo Little MD [address] [place] [address] Essential hypertension Social History Tobacco Use Types Packs/Day Years [...] Description 04/24/2025 9:00 AM EDT Ancillary Procedure [facility] [address] [place] [address] 04/30/2025 9:45 AM EDT Office Visit [place] [address] [place] [address] Dylon Kate MD [address] [facility] [address] [facility] [place] [phone] documented as of this encounter Visit Diagnoses Diagnosis Essential hypertension Unspecified essential hypertension documented in this encounter Care Teams Labor Operator Relationship Specialty Start Date End Date Steve Vargas DO [address] [place] [address] PCP - General 06/06/22 documented as of this encounter
[2025-03-28 09:25] LABS: Anion Gap 14.9; BUN Creatinine Ratio 21.2; Calcium 9.4 mg/dL (8.5-10.1); Chloride 103 mmol/L (98-107); Estimated GFR (African America 55 (>=60 mL/min/1.73m^2); Estimated GFR (Non-African Ame 46 (>=60 mL/min/1.73m^2); Glucose 93 mg/dL (74-106); Potassium 3.9 mmol/L (3.5-5.1); Sodium 141 mmol/L (136-145)
== END 2025-03-28 08:18 | disposition home or self-care (01) ==
LOC: LAB 08:18
PROVIDERS: PCP Internal Medicine; Visit Provider Internal Medicine Interventional Cardiology
DX: I50.32 Chronic diastolic (congestive) heart failure (principal); Z51.81 Encounter for therapeutic drug level monitoring; Z79.01 Long term (current) use of anticoagulants; I48.91 Unspecified atrial fibrillation
CPT/HCPCS: 36415; 80048; 85610; G0463

== ENCOUNTER 2025-04-03 02:42 | Outpatient (RCR) | payer MEDICARE, BC, SELFPAY | END 2025-05-03 16:55 | disposition home or self-care (01) | LOC: MM 02:42 | PROVIDERS: PCP Internal Medicine; Visit Provider Internal Medicine | DX: Z51.81 Encounter for therapeutic drug level monitoring (principal); Z79.01 Long term (current) use of anticoagulants; I48.91 Unspecified atrial fibrillation | CPT/HCPCS: 85610; G0463 ==

== ENCOUNTER 2025-05-04 01:13 | Outpatient (RCR) | payer MEDICARE, BC, SELFPAY | END 2025-05-31 12:47 | disposition home or self-care (01) | LOC: MM 01:13 | PROVIDERS: PCP Internal Medicine; Visit Provider Internal Medicine | DX: Z51.81 Encounter for therapeutic drug level monitoring (principal); Z79.01 Long term (current) use of anticoagulants; I48.91 Unspecified atrial fibrillation | CPT/HCPCS: 85610; G0463 ==

== ENCOUNTER 2025-06-04 00:59 | Outpatient (RCR) | payer MEDICARE, BC, SELFPAY | END 2025-07-03 15:36 | disposition home or self-care (01) | LOC: MM 00:59 | PROVIDERS: PCP Internal Medicine; Visit Provider Internal Medicine | DX: Z51.81 Encounter for therapeutic drug level monitoring (principal); Z79.01 Long term (current) use of anticoagulants; I48.91 Unspecified atrial fibrillation ==

== ENCOUNTER 2025-06-24 10:33 | Inpatient (IN) | payer MEDICARE, BC, SELFPAY ==
[2025-06-24] VITALS (17 sets, daily range): BP systolic 132–176; BP diastolic 54–73; PULSE 61–70; TEMP 36.6–36.8; O2SAT 95–100; BMI 20.8; BMI 20.2
--- NOTE | 2025-06-24 10:37 | XR_ITS ---
[address] [address] Patient Name: NELLY QUIROZ MRN: [id number] date: 1935 Sex: M Assigned Patient Location: ED.MAIN Current Patient Location: ED.MAIN Accession/Order Number: [id number] Exam Date: 06/24/2025 11:00 Report Date: 06/24/2025 11:35 At the request of: KINGA RAY MD Procedure: XR chest 1V PA CHEST: CLINICAL HISTORY: cough COMPARISON: 10/21/2023 Left-sided pacemaker device. Sternotomy wires. Cardiomegaly with perihilar pulmonary vasculature. Mild interstitial edema. No effusion or pneumothorax. No definite airspace disease. XR/XR chest 1V IMPRESSION: Mild CHF. No definite effusion or airspace disease Impression dictated by: Scott Peters M.D. 06/24/2025 11:35 AM Dictation Location: [place] [address] Electronically authenticated by: [id number] Y Date: 06/24/2025 11:35
--- NOTE | 2025-06-24 10:37 | ECG_ITS ---
[facility] Test Date: 2025-06-24 Pat Name: NELLY QUIROZ Department: Room: - Gender: Male Basting Cleaner: : 1935 Requested By: [id number] Order Number: [id number] Reading MD: TOMÁS VICENTE M.D. Measurements Intervals [place] Rate: 62 P: 90 [place]: 204 QRS: 159 QRSD: 178 T: -8 QT: 496 QTc: 500 Interpretive Statements 33967 Electronic atrial pacemaker 69204 Electronic ventricular pacemaker 9120 atypical ECG Compared to ECG 10/21/2023 08:28:21 Electronic atrial pacemaker is now present Electronically Signed On 06-24-2025 14:01:11 EDT by TOMÁS VICENTE M.D.
--- NOTE | 2025-06-24 10:51 | ED.GENADUL1 ---
HPI HPI - General Adult General Chief complaint: Upper Respiratory Infection Stated complaint: COUGH Time Seen by Provider: 06/24/25 10:37 Source: patient and other Source information: EMS and nurse report Mode of arrival: ambulance History of Present Illness HPI narrative: 89-year-old male presents for cough. His daughter accompanies him and gives most of the history. He was diagnosed with metastatic melanoma over the summer and has had 1 IV immunotherapy treatment for it. His daughter states that there is a spot in his chest and on his liver and she believes other places as well. He has been at the [facility] for the past 5 days and before that he was at the [facility] for a week. He has been admitted to the [facility] because of weakness and failure to thrive. Since he has been at the [facility] he has had a cough and he has been weak and he fell last night but did not injure himself. Family is concerned about p.o. intake and dehydration. Related Data Home Medications ?Medication ?Instructions ?Recorded ?Confirmed acetaminophen 650 mg 650 mg PO Q12H PRN fever or pain 06/24/25 06/24/25 tablet,extended release (8 Hour Pain Reliever) alfuzosin 10 mg tablet,extended 10 mg PO DAILY 06/24/25 06/24/25 release 24 hr amlodipine 2.5 mg tablet 2.5 mg PO DAILY 06/24/25 06/24/25 atorvastatin 40 mg tablet 40 mg PO DAILY 06/24/25 06/24/25 calcium 500 mg tablet 500 mg PO DAILY 06/24/25 06/24/25 cholecalciferol (vitamin D3) 10 4,000 unit PO DAILY 06/24/25 06/24/25 mcg/drop (400 unit/drop) oral drops (Wwd-S-Ezcdtcl) ferrous sulfate 325 mg (65 mg 325 mg PO DAILY 06/24/25 06/24/25 iron) tablet (FeroSul) fexofenadine 180 mg tablet 180 mg PO DAILY 06/24/25 06/24/25 (Ramona Allergy) finasteride 5 mg tablet 5 mg PO DAILY 06/24/25 06/24/25 furosemide 20 mg tablet 60 mg PO DAILY 06/24/25 06/24/25 hydroxychloroquine 200 mg tablet 200 mg PO DAILY 06/24/25 06/24/25 levothyroxine 25 mcg tablet 25 mcg PO DAILY 06/24/25 06/24/25 losartan 50 mg tablet 50 mg PO DAILY 06/24/25 06/24/25 metoprolol succinate 50 mg 75 mg PO DAILY 06/24/25 06/24/25 tablet,extended release 24 hr mirtazapine 15 mg tablet 7.5 mg PO DAILY 06/24/25 06/24/25 ondansetron HCl 4 mg tablet 4 mg PO TID-QID PRN nausea and 06/24/25 06/24/25 vomiting sennosides 8.6 mg tablet (Laxative 8.6 mg PO DAILY 06/24/25 06/24/25 (sennosides)) spironolactone 25 mg tablet 25 mg PO DAILY 06/24/25 06/24/25 tamsulosin 0.4 mg capsule (Flomax) 0.4 mg PO DAILY 06/24/25 06/24/25 warfarin 5 mg tablet 7.5 mg PO DAILY 06/24/25 06/24/25 Allergies Allergy/AdvReac Type Severity Reaction Status Date / Time latex Allergy Unknown Verified 06/24/25 10:40 Penicillins Allergy Unknown Verified 06/24/25 10:40 Review of Systems ROS Narrative A ten point review of systems is negative except as noted above. Exam Narrative Exam Narrative: Nurses note and vital signs reviewed and patient is not hypoxic. General: The patient appears frail and weak. He is tremorous. Skin: Warm, dry, no pallor noted. Head: Normocephalic, atraumatic Eye: Normal conjunctiva, no drainage Ears, Nose, Mouth, and Throat: oral mucosa is slightly dry. Nares patent. Cardiovascular: Regular Rate and Rhythm Respiratory: Bilateral rhonchi Back: non-tender GI: Soft and nontender Musculoskeletal: The patient has no evidence of calf tenderness, no pitting edema, symmetrical pulses noted bilaterally Neurological: Awake and alert Psychiatric: Cooperative Constitutional Vital Signs, click to edit/add: Last Vital Signs Temp 97.9 F 06/24/25 10:35 Pulse 66 06/24/25 14:15 Resp 13 06/24/25 14:15 BP 132/58 06/24/25 14:15 Pulse Ox 98 06/24/25 14:15 O2 Del Method Room Air 06/24/25 14:15 Course Vital Signs Vital signs: Vital Signs Temperature 97.9 F 06/24/25 10:35 Pulse Rate 63 06/24/25 10:35 Respiratory Rate 18 06/24/25 10:35 Blood Pressure 151/73 H 06/24/25 10:35 Pulse Oximetry 99 06/24/25 10:35 Oxygen Delivery Method Room Air 06/24/25 10:35 Temperature 97.9 F 06/24/25 10:35 Pulse Rate 66 06/24/25 14:15 Respiratory Rate 13 06/24/25 14:15 Blood Pressure 132/58 06/24/25 14:15 Pulse Oximetry 98 06/24/25 14:15 Oxygen Delivery Method Room Air 06/24/25 14:15 Medical Decision Making MDM Narrative Medical decision making narrative: The patient presents with shortness of breath and is found to have congestive heart failure. He was given IV Lasix. Troponin is elevated at 200 and the repeat is 195. This is likely from heart strain from CHF and he was given aspirin. Coles catheter was inserted. The case is discussed thoroughly with his daughter who is feeling family member here and an only child. She understands the significance of his findings and the seriousness. She does not want to have any intervention such as a heart catheterization. I also spoke to her about CODE STATUS and she has not yet made a decision. He already has a living will signed. I also discussed with her the significance of having congestive heart failure at his age and with his history of metastatic melanoma and she appears to have an excellent understanding of his serious medical condition. The rest of his workup including COVID and influenza are negative. At 1 point the patient seems to be getting mildly agitated and was starting to pull out his IVs so he was given 2.5 mg of IV Valium. CT brain was negative. Differential Diagnosis Differential Diagnosis: Pneumonia, CHF, PA, COVID, influenza Lab Data Lab results reviewed: Yes I reviewed the patient's lab results Labs: Lab Results 06/24/25 06/24/25 Range/Units 11:18 12:49 WBC 7.5 (4.0-11.0) 10^3/uL RBC 2.75 L (4.70-6.10) 10^6/uL Hgb 8.3 L (14.0-18.0) g/dL Hct 26.3 L (42.0-54.0) % MCV 95.6 H (80.0-94.0) fL MCH 30.2 (25.9-34.0) pg MCHC 31.6 (29.9-35.2) g/dL RDW 14.4 (11.0-15.0) % Plt Count 246 (150-450) 10^3/uL MPV 10.4 (9.5-13.5) fL Seg Neuts % (Manual) 86.0 H (43.0-75.0) Lymphocytes % (Manual) 11.0 L (20.5-60.0) % Monocytes % (Manual) 3.0 (1.7-12.0) % Eosinophils % (Manual) 0.0 L (0.9-7.0) % Basophils % (Manual) 0.0 L (0.2-2.0) % Neutrophils # (Manual) 6.45 (1.4-6.5) 10^3/uL Lymphocytes # (Manual) 0.82 L (1.20-3.80) 10^3/uL Monocytes # (Manual) 0.22 L (0.30-0.80) 10^3/uL Eosinophils # (Manual) 0.00 (0.00-0.70) 10^3/uL Basophils # (Manual) 0.00 (0.00-0.10) 10^3/uL Sodium 146 H (136-145) mmol/L Potassium 3.7 (3.5-5.1) mmol/L Chloride 108 H (98-107) mmol/L Carbon Dioxide 27.5 (21.0-32.0) mmol/L Anion Gap 14.2 BUN 26.0 H (7.0-18.0) mg/dL Creatinine 1.11 (0.70-1.30) mg/dL Est GFR ( Amer) >60 (>=60 mL/min/1.73m^2) Est GFR (Non-Af Amer) >60 (>=60 mL/min/1.73m^2) BUN/Creatinine Ratio 23.4 Glucose 102 (74-106) mg/dL Calcium 10.1 (8.5-10.1) mg/dL Troponin I High Sens 200.6 H* 195.1 H* (4.0-76.1) pg/mL NT-Pro-B Natriuret Pep 77113.0 H* (<=1800.0) pg/mL Influenza Type A Ag Negative Influenza Type B Ag Negative SARS-CoV-2 Ag (CV2AG) Negative (NEGATIVE) Imaging Data Chest x-ray: Radiologist's impression: ITS Impressions Chest X-Ray 06/24/25 10:37 IMPRESSION: Mild CHF. No definite effusion or airspace disease Impression dictated by: Scott Peters M.D. 06/24/2025 11:35 AM Dictation Location: [employer] [facility] Electronically authenticated by: [id number] Y Date: 06/24/2025 11:[address] 06/24/25 13:52 IMPRESSION: NO ACUTE INTRACRANIAL ABNORMALITY. Impression dictated by: Scott Peters M.D. 06/24/2025 3:09 PM Dictation Location: [employer] Electronically authenticated by: [id number] Y Date: 06/24/2025 15:09 ECG Data Attestation: I personally reviewed and interpreted this ECG as follows: (EKG on my interpretation shows paced atrial rhythm) Discharge Plan Discharge Chief Complaint: Upper Respiratory Infection Clinical Impression: Congestive heart failure Patient Disposition: Admitted As Inpatient Time of Disposition Decision: 15:29 Condition: Good
[2025-06-24] MEDS: 0.9 % SODIUM CHLORIDE 1,000 ML 125 ML IV (11:16)
[2025-06-24 11:33] LABS: Hematocrit 26.3 % (42.0-54.0); Hemoglobin 8.3 g/dL (14.0-18.0); Mean Corpuscular HGB Conc 31.6 g/dL (29.9-35.2); Mean Corpuscular Hemoglobin 30.2 pg (25.9-34.0); Mean Corpuscular Volume 95.6 fL (80.0-94.0); Platelet Count 246 10^3/uL (150-450); Red Blood Count 2.75 10^6/uL (4.70-6.10); White Blood Count 7.5 10^3/uL (4.0-11.0)
--- OUTSIDE RECORDS SUMMARY | 2025-06-24 11:38 | XMS_ITS | CCD ---
Author Organization [facility] CliniSyca Care Team Providers Care Powder Hand Name Role Phone Unavailable Primary Care Provider Unavailabl e UMA DE PAZ Primary Care Unavailable RENEE JUDGE Attending Unavailable RENEE JUDGE Admitting Unavailable UMA DE PAZ Referring Unavailable Vinh Lawton Unavailable UMA DE PAZ Primary Care Physician DO Uma De Paz Primary Care Provider MD Michele Arteaga Attending Provider DO Uma De Paz Primary Care Provider [phone] MD Michele Arteaga Attending Provider Uma De Paz Unavailable WINTER ., DR ARCHIBALD Consulting Unavailable WINTER ., DR ARCHIBALD Attending Unavailable BALL, DR EATON Primary Care Unavailable WINTER ., DR ARCHIBALD Admitting Unavailable BALL, DR EATON Primary Care Unavailable SHAIKH Stephon LUO Attending Unavailable SHAIKH Stephon LUO Admitting Unavailable BALL, DR EATON Primary Care Unavailable HOTristan ., DR LOPEZ Consulting Unavailable HOY ., DR LOPEZ Attending Unavailable HOTristan ., DR LOPEZ Admitting Unavailable RENEE JUDGE Attending Unavailable RENEE JUDGE Admitting Unavailable RENEE JUDGE Consulting Unavailable ZANDRA, DR EATON Primary Care Unavailable BALL, DR EATON Consulting Unavailable ZANDRA, DR EATON Attending Unavailable BALL, DR EATON Admitting Unavailable BALL, DR EATON Primary Care Unavailable DEBBIE GORDON Attending Unavailable ZANDRA, DR EATON Primary Care Unavailable BALL, DR EATON Consulting Unavailable DEBBIE GORDON Admitting Unavailable DEBBIE GORDON Consulting Unavailable RON CAZARES Consulting Unavailable RENEE JUDGE Attending Unavailable RENEE JUDGE Admitting Unavailable RENEE JUDGE Consulting Unavailable ZANDRA, DR EATON Primary Care Unavailable ZANDRA, DR EATON Primary Care Unavailable SHAIKH Stephon LUO Attending Unavailable FAWWAD, HANSEN H Admitting Unavailable [...] Unavailable ZANDRA, DR EATON Primary Care Unavailable RENEE JUDGE Admitting Unavailable RENEE JUDGE Consulting Unavailable ZANDRA, DR EATON Primary Care Unavailable RENEE JUDGE Attending Unavailable DO Uma De Paz Primary Care Provider [phone] MD Michele Arteaga Attending Provider MD Jose R Cruz Attending Provider DO Uma De Paz Primary Care Provider [phone] MD Michele Arteaga Attending Provider Unavailable Primary Care Provider UnavailUma Little DO Primary Care Provider DO Uma De Paz Primary Care Provider [phone] MD Elkin Holly Attending Provider [phone] MD Adilene Weinberg Attending Provider [phone] MD Elkin Holly Referring Provider DO Uma De Paz Primary Care Provider MD Elkin Holly Attending Provider MD Adilene Weinberg Attending Provider MD Elkin Holly Referring Provider [phone] MD Michele Arteaga Attending Provider DEBBIE GORDON Attending Unavailable DO Uma De Paz Primary Care Provider MD Adilene Weinberg Attending Provider MD Elkin Holly Referring Provider DO Uma De Paz Primary Care Provider Unavailable Primary Care Provider Unavailabl e DO Uma De Paz Primary Care Provider MD Adilene Weinberg Attending Provider MD Elkin Holly Referring Provider DO Uma De Paz Primary Care Provider MD Adilene Weinberg Attending Provider MD Elkin Holly Referring Provider MD Michele Arteaga Attending Provider DO Uma De Paz Primary Care Provider MD Adilene Weinberg Attending Provider MD Elkin Holly Referring Provider Uma De Paz DO Primary Care Provider DO Uma De Paz Primary Care Provider MD Michele Arteaga Attending Provider MD Adilene Weinberg Attending Provider MD Elkin Holly Referring Provider [phone] Uma De Paz MD Primary Care Provider Leanna ESTER, Tereos Unavailable Uma De Paz DO Primary Care Provider Adilene Weinberg MD Attending Provider Elkin Holly MD Referring Provider [phone] Michele Arteaga MD Attending Provider Uma De Paz DO Primary Care Provider Michele Arteaga MD Attending Provider Adilene Weinberg MD Attending Provider [phone] Elkin Holly MD Referring Provider Adilene Weinberg MD Attending Provider Elkin Holly MD Referring Provider Uma De Paz DO Primary Care Provider Zandra HARMON, Uma Primary Care Provider Uma De Paz DO Attending Provider [phone] Adilene Weinberg MD Attending Provider Vladimir YATES-CKayley Attending Provider Dylon Kate MD, V Attending Provider Marvin MULTIPLE TUBE WINDING MACHINE OPERATOR-CMaite Attending Provider Uma De Paz DO Primary Care Provider Uma De Paz DO Primary Care Provider Uma De Paz DO Attending Provider Adilene Weinberg MD Attending Provider Elkin Holly MD Referring Provider ELKIN HOLLY Attending Unavailable ZANDRA UMA E Primary Care Unavailable Maite Wong Admitting Unavailable Maite Wong Attending Unavailable Zandra, Uma Primary Care Unavailable Zandra, Uma Primary Care Unavailable Michele Arteaga Admitting Unavailable Michele Arteaga Attending Unavailable Zandra, Uma Primary Care Unavailable Elkin Holly Referring Unavailable Lenard, Adilene Admitting Unavailable Lenard, Adilene Attending Unavailable Lenard, Adilene Admitting Unavailable Lenard, Adilene Attending Unavailable Zandra, Uma Primary Care Unavailable Michele Arteaga Admitting Unavailable Michele Arteaga Attending Unavailable Zandra, Uma Primary Care Unavailable DUGLAS BUSBY Admitting Unavailable DUGLAS BUSBY Attending Unavailable RENEE ROQUE Referring Unavailable UMA DE PAZ E Primary Care Unavailable DUGLAS BUSBY Attending Unavailable BEDRENEE HORVATH Referring Unavailable ZANDRA UMA E Primary Care Unavailable Terrence Renteria MD Unavailable Uma De Paz DO Primary Care Provider Jillian ARRIAGA, PhD, Duglas Schultz Unavailable Dylon Kate MD Unavailable Elikn Holly MD Unavailable [phone] Adilene Weinberg MD Unavailable BedRenee horvath DO Unavailable Cristela Winter MD Unavailable ELKIN HOLLY Admitting Unavailable ELKIN HOLLY Attending Unavailable UMA DE PAZ Primary Care Unavailable Jillian ARRIAGA, PhD, Duglas Schultz Unavailable Martita Agustin Unavailable Unavailable Cristela WINTER Attending Unavailable Cristela WINTER Attending Unavailable Martita Agustin Unavailable Unavailable RAFA, MORE Referring Unavailable NU, RENEE Referring Unavailable RAFA, MORE Referring Unavailable NU, RENEE Referring Unavailable NU, RENEE Referring Unavailable NU, RENEE Referring Unavailable NU, RENEE Referring Unavailable MOUKARBEL, DYLON Admitting Unavailable MOUKARBEL, DYLON Attending Unavailable NU, RENEE Referring Unavailable NU, RENEE Referring Unavailable NU, RENEE Referring Unavailable MOUKARBEL, DYLON Attending Unavailable VLADIMIRKAYLEY GENTILE Attending Unavailable MOUKARBEL, DYLON Attending Unavailable MOUKARBEL, DYLON Attending Unavailable NU, RENEE Referring Unavailable NU, RENEE Referring Unavailable NU, RENEE Referring Unavailable NU, RENEE Referring Unavailable NU, RENEE Referring Unavailable NU, RENEE Referring Unavailable NU, RENEE Referring Unavailable NU, RENEE Referring Unavailable NU, RENEE Referring Unavailable NU, RENEE Referring Unavailable ZANDRA, UMA Primary Care Unavailable ADILENE WEINBERG Referring Unavailable DUGLAS WALSH Attending Unavailable UMA DE PAZ Primary Care Unavailable SELF, SELF Referring Unavailable DUGLAS WALSH Attending Unavailable WENDY DESAI Attending Unavailable OXANA ESPINOSA Referring Unavailable UMA DE PAZ Primary Care Unavailable DUGLAS WALSH Attending Unavailable UMA DE PAZ Primary Care Unavailable JILLIAN, DUGLAS Schultz Referring Unavailable JILLIAN, DUGLAS Schultz Attending Unavailable ZANDRA, UMA Primary Care Unavailable JILLIAN, DUGLAS Schultz Referring Unavailable JILLIAN, DUGALS Schultz Attending Unavailable ZANDRA, UMA Primary Care Unavailable WALSH, DUGLAS C Referring Unavailable WALSH, DUGLAS Schultz Referring Unavailable ZANDRA, UMA Primary Care Unavailable WALSH, DUGLAS Schultz Attending Unavailable ZANDRA, UMA Primary Care Unavailable SEBASTIAN DAY Attending Unavailable CONSULT, GERIATRICS Consulting Unavailable SIRIA WOLFE Referring Unavailable LUDWIG HAWKINS Admitting Unavailable UMA DE PAZ Primary Care Unavailable LUDWIG HAWKINS Attending Unavailable CONSULT, CARDIOLOGY - HEART FAILURE Consulting Unavailable Allergies Allergy Classification Reported Allergen(s) Allergy Type Date of Onset Reaction(s) Facility Latex (1 source) Latex Substance Allergy 4 Rash [facility] Penicillins (antibiotic) (1 source) Penicillins Drug Allergy 4 Swelling of the Eye [facility] (20 sources) Latex; Translations: [LATEX] Propensity to adverse reactions (disorder) 9 rash, Hives, Itching [facility] Rep[facility] (20 sources) Penicillins; Translations: [penicillins] Drug allergy (disorder) 0 Swelling of the Eye [facility] Rep[facility] (2 sources) Penicillin V Drug Allergy Unknown [facility] Other (12 sources) Penicillin; Translations: [Penicillin] Drug Allergy Unknown [facility] (11 sources) Penicillins Drug Allergy 4 Other, Other: See Comments, Swelling, Unknown [facility] Work Phone: (20 sources) Penicillins Drug Allergy [address] [facility] (11 sources) Spironolactone; Translations: [SPIRONOLACTONE ] Drug Allergy [address] [facility] (1 source) Penicillins Drug Allergy 4 Other [facility] (1 source) Penicillins Drug allergy (disorder) 5 [facility] Repository Medications Current Medications Medication Drug Class(es) Dates Sig (Normalized) Sig (Original) acetaminophen 325 mg oral tablet (4 sources) Start: 06-18-2025 take 2 tablets by mouth every six hours as needed Acetaminophen 325 MG tablet Take 2 tablets by mouth every 6 hours as needed. 06/18/2025 Active Start: 06-10-2025 End: 06-18-2025 take 1 tablet by mouth every six hours as needed 650 mg, Oral, EVERY 6 HOURS NEEDED, Starting on 06/10/25 at 1741, Until 06/18/25 at 1957, Mild Pain, Oral temp > 100.4 F, Maximum dose of acetaminophen is 4000 mg from all sources in 24 hours. acetaminophen 325 mg / HYDROcodone bitartrate 5 mg oral tablet (13 sources) Opioid Agonist Start: 10-10-2021 take 1-2 tablets by mouth every six hours as needed HYDROcodone-Acetaminophen 5-325 MG 1-2 tablet as needed Orally every 6 hrs for 7 days Oct, Active albuterol 0.83 mg/ml inhalation solution (1 source) beta2-Adrene rgic Agonist Start: 10-28-2023 albuterol 2.5 mg /3 mL (0.08 3 %) nebulizer solution 2.5 mg 24 hr alfuzosin hydrochloride 10 mg extended release oral tablet (20 sources) alpha-Adrene rgic [place] Start: 11-24-2023 End: 11-24-2025 take 1 tablet by mouth once daily alfuzosin 10 mg ER Tab 10 mg = 1 tab(s), Oral, Daily, X 90 day(s), # 90 tab(s), Refills(s) 3, Pharmacy: [facility], 178, cm, 05/22/24 8:45:00 EDT, Height/Length Dosing, 74, kg, 05/22/24 8:45:00 EDT, Weight Dosing Start Date: 11/29/24 Stop Date: 11/24/25 Status: Ordered Quantity: 90.0 Unit: tab(s) Repeat number: 4 Start: 12-22-2021 End: 11-21-2023 take 1 tablet by mouth once daily alfuzosin 10 mg ER Tab 10 mg = 1 tab(s), Oral, Daily, X 90 day(s), # 90 tab(s), Refills(s) 3, Pharmacy: [facility], 178, cm, 05/04/22 12:45:00 EDT, Height/Length Dosing, 76, kg, 05/04/22 12:45:00 EDT, Weight Dosing Start Date: 11/26/22 Stop Date: 11/21/23 Status: Ordered atorvastatin 40 mg oral tablet (20 sources) HMG-CoA Reductase Inhibitor Start: 04-02-2014 End: 06-18-2025 Lipitor 40 mg Tab Refills(s) 0 Start Date: 04/02/14 Status: Ordered Repeat number: 1 betamethasone 0.5 mg/ml / clotrimazole 10 mg/ml topical cream (5 sources) Azole Antifungal, Corticosteroid Start: 04-16-2023 Clotrimazole-Betamet hasone 1-0.05 % 1 application Externally Twice a [...] Active Start: 07-13-2017 take 1 tablet by mouth once da kaylynn calcium chloride 0.0014 meq/ ml / potassium chloride 0.004 meq/ml / sodium chloride 0.103 meq/ml / sodium lactate 0.028 meq/ml injectable solution (1 source) Start: 10-28-2023 lactated Ringe r's infusion Calcium Citrate / Vitamin D (4 sources) Start: 04-02-2014 calcium-vitami n D Refill(s) 0 Start Date: 04/02/14 Status: Ordered Repeat number: 1 Start: 04-02-2014 calcium-vitami n D Refill(s) 0 Start Date: 04/02/14 Status: Ordered cholecalciferol 0.125 mg ora l tablet (20 sources) Vitamin D Start: 07-13-2017 take 1 tablet by ho th once daily take 1 tablet by mouth every oth er day cholecalciferol (Vitamin D-3) 5,000 Units tablet Take 1 tablet every other day by oral route. Active take 1 capsule by mo uth every other day Vitamin D3 25 MCG (1000 UT) 1 capsule Or ally every other day Active Cholecalciferol (VITAMIN D) 4000 Units capsule (20 sources) take 1 capsule by mouth every other day Cholecalciferol (VITAMIN D) 4000 Units capsule Take 1 capsule by mouth every other day. Suspended take 1 capsule by mo uth every other day Cholecalciferol (VITAMIN D) 4000 Units capsule Take 1 capsule by mouth every other day. Active clopidogrel 75 mg oral tablet (20 sources) P2Y12 Platelet Inhibitor Start: 04-08-2020 End: 05-10-2025 take 1 mg by mouth once daily Plavix 75 mg Tab mg tab(s), Oral, Daily, Refills(s) 0 Start Date: 04/08/20 Status: Ordered CUSTOM MEDICATION (2 sources) Start: 06-18-2025 CUSTOM MEDICAT ION Draw TSH with T4 and total T3 in 1 week (~on 06/25/2025) 06/18/2025 Active docusate sodium 100 mg oral capsule (12 sources) take 1 capsule by mouth every twenty-four hours 1 ml fentaNYL 0.05 mg/ml injection (1 source) Opioid Agonist Start: 10-28-2023 fentaNYL PF (Sublimaze) injection 25 mcg ferrous sulfate 325 mg oral tablet (20 sources) Start: 07-13-2017 take 1 tablet by mouth once daily ferrous sulfate, 325 mg ferrous sulfate, tablet Take 65 mg by mouth once daily. Active take 1 tablet by ho th every twenty-four hours Iron 325 (65 Fe) MG 1 tablet Orally Once a day Active furosemide 40 mg oral tablet (20 sources) Loop Diuretic Start: 06-13-2025 End: 06-18-2025 take 1 tablet by mouth every other day furOSEmide 40 MG tablet Take 1 tablet by mouth every other day. 06/19/2025 Active Start: 06-10-2025 End: 06-18-2025 take 60 mg by mouth once daily 60 mg, Oral, DAILY, Fir st dose (after last modification) on Wed06/11/25 at 0900, Until Discontinued, On hold since Wed06/12/2025 at 0838 until manually unheld Start: 03-16-2025 take 1 tablet by ho th once daily in the morning Start: 03-16-2025 End: 06-13-2025 take 2 tablets by mouth twice daily Furosemide 20 mg tablet Discontinued 40 MG PO Twice daily 120 30 March 16, 2025 12:53pm March 16, 2025 12:55pm Start: 05-25-2024 End: 03-16-2025 take 2 tablets by mouth once daily Furosemide 20 mg tablet Discontinued 40 MG PO Daily May 25, 2024 1:19pm March 16, 2025 12:53pm Start: 05-25-2024 take 40 mg by mouth once daily Furosemide Active 40 MG PO Daily May 25, 2024 12:19pm Start: 04-08-2020 End: 05-25-2024 take 1 mg by mouth once daily furosemide 20 mg Tab mg tab(s), Oral, Daily, Refills(s) 0 Start Date: 04/08/20 Status: Ordered Repeat number: 1 1 ml HYDROmorphone hydrochloride 1 mg/ml cartridge (1 source) Opioid Agonist Start: 10-28-2023 HYDROmorphone (Dilaudid) injection 0.5 mg hydroxychloroquine sulfate 200 mg oral tablet (20 sources) Antimalarial, Antirheumatic Agent Start: 06-18-2025 Hydroxychloroquine 200 MG tablet Take 200mg once day on Wednesday, Wednesday, , and Wednesday Take 200mg twice day on Wednesday, Wednesday, and Wednesday06/18/2025 Active Start: 06-12-2025 End: 06-18-2025 Hydroxychloroquine (PLAQUENI L) tablet 200 mg Start: 06-10-2025 End: 06-10-2025 Hydroxychloroquine (PLAQUENI L) tablet 200 mg Start: 04-02-2014 End: 06-18-2025 Plaquenil 200 mg Tab Refills (s) 0 Start Date: 04/02/14 Status: Ordered Repeat number: 1 take 1 tablet by ho th once daily, then take 1 tablet by mouth twice daily at mealtime hydroxychloroquine (Plaquenil) 200 mg tablet TAKE 1 TABLET BY MOUTH ONCE DAILY ALTERNATING WITH 1 TABLET TWICE DAILY WITH FOOD. CONFIRM WITH EYE DOCTOR ON YEARLY EYE EXAM FOR MEDICATION TOXICITY. Active Iron (12 sources) Start: 04-02-2014 Patrick Iron Refil ls(s) 0 Start Date: 04/02/14 Status: Ordered Repeat number: 1 Start: 04-02-2014 Patrick Iron Refil ls(s) 0 Start Date: 04/02/14 Status: Ordered Iron Not-Taking Iron Active lisinopril 40 mg oral tablet (1 source) Angiotensin Converting Enzyme Inhibitor Start: 04-02-2014 Prinivil 40 mg oral tablet Refills(s) 0 Start Date: 04/02/14 Status: Ordered 1 ml meperidine hydrochloride 50 mg/ml injection (1 source) Opioid Agonist Start: 10-28-2023 meperidine PF (Demerol) injection 12.5 mg mirtazapine 7.5 mg oral tablet (3 sources) Start: 06-18-2025 take 1 tablet by mouth at bedtime Mirtazapine 7.5 MG tablet Take 1 tablet by mouth at bedtime. 06/18/2025 Active Start: 06-11-2025 End: 06-18-2025 take 7.5 mg by mouth once daily at bedtime 7.5 mg, Oral, DAILY AT BEDTIME, First dose (after last modification) on Wed06/11/25 at 2100, Until Discontinued Nitro 0.4 mg Tab (3 sources) Start: 04-11-2021 Nitro 0.4 mg T ab = 1 tab(s), SubLingual, q5min, PRN Chest pain, # 25 tab(s), Refills(s) 3 Start Date: 04/11/21 Status: Ordered Quantity: 25.0 Unit: tab(s) Repeat number: 1 Start: 04-11-2021 Nitro 0.4 mg T ab = 1 tab(s), SubLingual, q5min, PRN Chest pain, # 25 tab(s), Refills(s) 3 Start Date: 04/11/21 Status: Ordered nitroglycerin 0.4 mg subling ual tablet (20 sources) Nitrate Vasodilator Start: 01-19-2024 Start: 04-11-2021 Nitro 0.4 mg T ab = 1 tab(s), SubLingual, q5min, PRN Chest pain, # 25 tab(s), Refills(s) 3 Start Date: 04/11/21 Status: Ordered Sviyqxxyk-Feagexegux-ibrf (O PDUALAG IV) (13 sources) Nivolumab-Relatl imab-rmbw (OPDUALAG IV) by Intravenous route. Suspended Nivolumab-Relatl imab-rmbw (OPDUALAG IV) by Intravenous route. Active 2 ml ondansetron 2 mg/ml injection (1 source) Serotonin-3 Receptor Antagonist Start: 10-28-2023 ondansetron (Zofran) injection 4 mg oxyCODONE hydrochloride 5 mg oral tablet (1 source) Opioid Agonist Start: 10-28-2023 take 1 tablet by mouth every four hours as needed oxyCODONE (Roxicodone) immediate release tablet 5 mg polyethylene glycol [id number] mg powder for oral solution (3 sources) Osmotic Laxative Start: 06-19-2025 take 1 dose by mouth once daily Polyethylene glycol 17 g Pack packet Take 1 packet by mouth daily. 06/19/2025 Active Start: 06-11-2025 End: 06-18-2025 17 g, Oral, DAILY, First dos e on Wed06/11/25 at 1500, Until Discontinued promethazine (Phenergan) 6.25 mg in sodium chloride 0.9% 50 mL IV (1 source) Start: 10-28-2023 promethazine (Phenergan) 6.25 mg in sodium chloride 0.9% 50 mL IV purified protein derivative of tuberculin 50 unt/ml injectable solution (12 sources) Tuberculosis Skin Test, Skin Test Antigen sennosides, jail 8.6 mg oral tablet (6 sources) Start: 10-28-2023 End: 11-07-2023 take 1 tablet by mouth once daily sennosides (Senokot) 8.6 mg tablet Indications: Malignant melanoma of forehead (CMS/HCC) , Post-op pain Take 1 tablet (8.6 mg) by mouth once daily for 10 days. 10 tablet 0 10/28/2023 11/07/2023 Active terbinafine hydrochloride 10 mg/ml topical cream [...] Active traMADol hydrochloride 50 mg oral tablet (11 sources) Opioid Agonist Start: 10-28-2023 End: 10-28-2023 take 1 tablet by mouth every six hours for pain traMADol (Ultram) 50 mg tablet Indications: Malignant melanoma of forehead (Multi) , Post-op pain Take 1 tablet (50 mg) by mouth every 6 hours if needed for severe pain (7 - 10). 10 tablet 10/28/2023 Active vitamin B12 (20 sources) Vitamin B12 take 1000 ug by mouth once daily Cyanocobalamin (VITAMIN B 12 PO) Place 1,000 mcg under tongue daily. Suspended take 1000 ug by mouth once daily Cyanocobalamin (VITAMIN B 12 PO) Place 1,000 mcg under tongue daily. Active take 1 tablet by ho th every twenty-four hours Vitamin B12 1000 MCG 1 tablet Orally Onc e a day Active Vitamin B12 Not- Taking [...] Orally every other day Active warfarin sodium 2 mg oral tablet (20 sources) Vitamin K Antagonist Start: 06-19-2025 End: 06-18-2025 take 1 tablet by mouth once daily 4 mg, Oral, DAILY, First dose (after last modification) on Wed06/19/25 at 1800, Until Discontinued, Swallow tablet whole; do not crush, split or chew. Contact pharmacy if alternate route or dose is needed. Start: 06-15-2025 End: 06-18-2025 take 1 tablet by mouth once daily 4 mg, Oral, DAILY, First dose (after last modification) on Wed06/15/25 at 1800, Until Discontinued, Swallow tablet whole; do not crush, split or chew. Contact pharmacy if alternate route or dose is needed. Start: 06-14-2025 take 1 tablet by ho th once daily 6 mg, Oral, DAILY EARLY EVENING, 1 dose, First dose on Wed06/14/25 at 1800, Swallow tablet whole; do not crush, split or chew. Contact pharmacy if alternate route or dose is needed. Start: 07-13-2017 End: 06-18-2025 take 1 tablet by mouth once daily in the evening warfarin 5 MG tablet Take 1 tablet by mouth every evening at 6 PM. 06/19/2025 Active take 1.5 tablets by mouth once daily warfarin 5 MG tablet Take 1.5 tablets by mouth daily. Suspended Warfarin 5mg 5 m g 1 1/2 tablet orally daily Active Completed/Discontinued Medications Medication Drug Class(es) Dates Sig (Normalized) Sig (Original) aluminum hydroxide 40 mg/ml / magnesium hydroxide 40 mg/ml / simethicone 4 mg/ml oral suspension (2 sources) Start: 06-10-2025 End: 06-18-2025 take 30 mL by mouth every six hours as needed amiodarone hydrochloride 200 mg oral tablet (6 sources) Antiarrhythmic Start: 08-17-2019 End: 05-10-2025 take 1 tablet by mouth once daily AMIOdarone 200 MG Tab Take 1 tablet by mouth daily. 30 tablet 1 08/17/2019 05/10/2025 Discontinued (Discontinued by another clinician (cory cankostas msg)) amLODIPine 2.5 mg oral tablet (20 sources) Dihydropyridine Calcium Channel [place] Start: 06-10-2025 End: 06-10-2025 take 2.5 mg by mouth once daily 2.5 mg, Oral, DAILY, First dose on 06/10/25 at 0900, Until Discontinued Start: 04-30-2025 End: 04-30-2026 take 1 tablet by mouth once daily amLODIPine 2.5 MG tablet Take 1 tablet by mouth daily. 04/30/2025 04/30/2026 Active Start: 03-21-2025 End: 04-19-2025 take 1 tablet by mouth once daily Amlodipine 2.5 mg tablet Discontinued 2.5 MG PO Daily March 21, 2025 12:00am April 19, 2025 2:28pm Start: 01-29-2025 End: 03-16-2025 take 1 tablet by mouth once daily Amlodipine 2.5 mg tablet Discontinued 2.5 MG PO Daily 90 90 January 29, 2025 5:58pm March 16, 2025 12:57pm Start: 04-25-2024 End: 12-07-2024 take 1 tablet by mouth once daily Amlodipine 2.5 mg tablet Discontinued 2.5 MG PO Daily 90 90 April 25, 2024 12:00am December 07, 2024 1:44pm aspirin 81 mg delayed release oral tablet (20 sources) Platelet Aggregation Inhibitor, Nonsteroidal Anti-inflammatory Drug Start: 07-13-2017 End: 01-19-2024 take 1 tablet by mouth once daily Aspirin (Aspir-81) 81 mg Tablet,Delayed Release (Dr/Ec) Discontinued 81 MG PO Daily July 13, 2017 12:00am January 19, 2024 8:11am Start: 04-02-2014 aspirin Refill s(s) 0 Start Date: 04/02/14 Status: Ordered Barium Sulfate (VARIBAR THIN LIQUID) 40 % 50 mL (1 source) Start: 06-13-2025 End: 06-13-2025 take 1 dose by mouth once 50 mL, Oral, ONCE, 1 dose, On Wed06/13/25 at 1200 bisacodyl 10 mg rectal suppository (1 source) Stimulant Laxative Start: 06-13-2025 End: 06-13-2025 take 1 dose rectal route once 10 mg, Rectal, ONCE, 1 dose, On Wed06/13/25 at 1200 doxycycline hyclate 100 mg oral capsule (10 sources) Tetracycline-cla ss Drug Start: 01-05-2025 End: 01-23-2025 take 1 capsule by mouth twice daily Doxycycline Hyclate 100 mg capsule Discontinued 100 MG PO Twice daily 23 07January 05, 2025 12:00am January 23, 2025 9:11am Start: 01-22-2023 take 1 capsule by [facility] twice daily Doxycycline Hyclate 100 MG 1 capsule Orally twice daily for 7 days Jan, Not-Taking fexofenadine hydrochloride 180 mg oral tablet (20 sources) Histamine-1 Receptor Antagonist Start: 04-08-2020 End: 06-18-2025 180 mg, Oral, DAILY, First dose (after last modification) on Wed06/11/25 at 0900, Until Discontinued, Avoid antacid administration one hour before and two hours after dose. Avoid administration with fruit juices. take 1 tablet by [facility] every twenty-four hours Fexofenadine HCl 60 MG 1 tablet Orally once a day Active finasteride 5 mg oral tablet (20 sources) 5-alpha Reductase Inhibitor Start: 06-10-2025 End: 06-18-2025 take 5 mg by mouth once daily in the morning 5 mg, Oral, DAILY EVERY MORNING, First dose (after last modification) on Wed06/11/25 at 0900, Until Discontinued, Do not split, break, crush or open this medication. Contact pharmacy if altered route or dose needed. Start: 12-15-2021 End: 05-10-2025 take 1 tablet by mouth once daily finasteride 5 mg Tab 5 mg = 1 tab(s), Oral, Daily, # 90 tab(s), Refills(s) 3, Pharmacy: [facility], 178, cm, 05/22/24 8:45:00 EDT, Height/Length Dosing, 74, kg, 05/22/24 8:45:00 EDT, Weight Dosing Start Date: 11/29/24 Status: Ordered Quantity: 90.0 Unit: tab(s) Repeat number: 4 hydroCHLOROthiazide 25 mg oral tablet (20 sources) Thiazide Diuretic Start: 07-13-2017 End: 11-24-2023 take 1 tablet by mouth once daily Hydrochlorothiazide 25 mg tablet Discontinued 25 MG PO Daily July 13, 2017 12:00am November 24, 2023 9:31am iohexol (OMNIPAQUE) 350 MG/ML injection 1-171 mL (2 sources) Start: 06-09-2025 End: 06-09-2025 1-171 mL, Intravenous, ONCE, 1 dose, On 06/09/25 at 1830, Extravasation Risk, CT Procedure Start: 05-11-2025 End: 05-11-2025 1-171 mL, Intravenous, ONCE, 1 dose, On Wed05/11/25 at 0815, Extravasation Risk, CT Procedure labetalol hydrochloride 5 mg/ml injectable solution (1 source) beta-Adrenergic Amador Start: 10-28-2023 End: 10-28-2023 labetaloL (Normodyne,Trandate) injection 5 mg leflunomide 20 mg oral tablet (20 sources) Antirheumatic Agent Start: 01-19-2024 End: 11-20-2024 take 1 tablet by mouth every other day Leflunomide 20 mg tablet Discontinued 20 MG PO .qod January 19, 2024 8:07am November 20, 2024 10:44am Start: 07-13-2017 End: 05-10-2025 take 1 mg by mouth once daily leflunomide 20 mg Tab mg tab(s), Oral, Daily, Refills(s) 0 Start Date: 04/08/20 Status: Ordered Repeat number: 1 Start: 07-13-2017 End: 01-19-2024 take 20 g by mouth once daily Leflunomide Discontinued 20 GM PO Daily July 12, 2017 11:00pm January 19, 2024 7:12am levothyroxine sodium 0.025 mg oral tablet (1 source) l-Thyroxine Start: 06-22-2025 End: 06-22-2025 take 1 tablet by mouth once daily Levothyroxine 25 MCG tablet Take 1 tablet by mouth daily. 30 tablet 1 06/22/2025 06/22/2025 Discontinued losartan potassium 50 mg oral tablet (20 sources) Angiotensin 2 Receptor Amador Start: 06-11-2025 End: 06-18-2025 take 50 mg by mouth once daily 50 mg, Oral, DAILY, First dose (after last modification) on 06/11/25 at 0900, Until Discontinued Start: 06-10-2025 End: 06-10-2025 take 50 mg by mouth once daily 50 mg, Oral, DAILY, Fir st dose on Wed06/10/25 at 0900, Until Discontinued Start: 07-13-2017 End: 10-26-2023 take 1 mg by mouth once daily losartan 50 mg Tab mg ta b(s), Oral, Daily, Refills(s) 0 Start Date: 04/08/20 Status: Ordered Repeat number: 1 100 ml magnesium sulfate 10 mg/ml injection (2 sources) Start: 06-09-2025 End: 06-09-2025 1 g, Intravenous, Administer over 60 Minutes, ONCE, 1 dose, On 06/09/25 at 2030 Start: 06-09-2025 End: 06-09-2025 1 g, Intravenous, Administer over 60 Minutes, EVERY 1 HOUR, 2 doses, First dose (after last modification) on 06/09/25 at 1700, Last dose on 06/09/25 at 1800 mecobalamin 1 mg chewable tablet (19 sources) Start: 11-24-2023 End: 01-19-2024 take 1 tablet by mouth once daily Mecobalamin (Vitamin B12) 1,000 mcg tablet,chewable Discontinued 1000 MCG PO Daily November 24, 2023 1:00am January 19, 2024 8:11am Metoprolol (20 sources) beta-Adrenergi c Amador Start: 06-11-2025 End: 06-18-2025 75 mg, Oral, DAILY, First dose (after last modification) on 06/11/25 at 0900, Until Discontinued, Slow release product. Do not crush. Extended release can be cut in half. Start: 06-10-2025 End: 06-10-2025 75 mg, Oral, DAILY, First do se (after last modification) on Wed06/10/25 at 0900, Until Discontinued, Slow release product. Do not crush. Extended release can be cut in half. Start: 08-09-2024 End: 09-12-2024 Metoprolol Succinate 50 mg t ablet extended release 24 hr Discontinued 75 MG PO Daily 135 90 August 09, 2024 5:09pm September 12, 2024 8:37am Start: 01-19-2024 End: 08-09-2024 Metoprolol Succinate 50 mg t ablet extended release 24 hr Discontinued 100 MG PO Daily January 19, 2024 8:09am August 09, 2024 5:09pm Start: 01-19-2024 take 100 mg by mouth [...] Refills(s) 0 Start Date: 04/08/20 Status: Ordered Repeat number: 1 take 1.5 tablets by mouth twice daily Metoprolol succinate 50 MG tablet XL Take 1.5 tablets by mouth 2 times daily. Active take 2 tablets by [facility] twice daily metoprolol succinate 25 MG tablet XL Take 2 tablets by mouth 2 times daily. Suspended take 2 tablets by [facility] every twenty-four hours Metoprolol Succinate ER 50 MG 2 tablet Orally Once a day Active Nivolumab-Relatlimab -rmbw (OPDUALAG) 480 mg in Sodium chloride 0.9%, with overfill 150 mL (total volume) chemo infusion (1 source) Start: 05-21-2025 End: 05-21-2025 480 mg, Intravenous, at 300 mL/hr, Administer over 30 Minutes, ONCE (OUTPT CLINIC), 1 dose, Starting on Wed05/21/25 at 1549, Until Wed05/21/25 at 1657, Filtration required. Do not coadminister other drugs through same infusion line. Ondansetron 4mg/2ml (ZOFRAN) injection 4 mg (2 sources) Start: 06-10-2025 End: 06-18-2025 take 4 mg intravenously every six hours as needed Ondansetron 4mg/2ml (ZOFRAN) injection 4 mg Start: 06-10-2025 End: 06-10-2025 take 4 mg intravenously every six hours as needed Ondansetron 4mg/2ml (ZOFRAN) injection 4 mg microencapsulated potassium chloride 20 meq extended release oral tablet (1 source) Start: 06-09-2025 End: 06-09-2025 20 mEq, Oral, ONCE, 1 dose, On 06/09/25 at 1830, Swallow tablets whole; do not crush, chew, or suck on tablet. Tablet may also be broken in half and each half swallowed separately. 20 ml sodium chloride 9 mg/m l injection (4 sources) Start: 06-09-2025 End: 06-09-2025 1-100 mL, Intravenous, ONCE NEEDED, 1 dose, Starting on 06/09/25 at 1817, Until 06/09/25 at 1817, Flush, CT Procedure Start: 06-09-2025 End: 06-09-2025 500 mL, Intravenous, ONCE, 1 dose, On 06/09/25 at 1630 Start: 05-21-2025 End: 05-21-2025 500 mL, Intravenous, at 20-9 99 mL/hr, CONTINUOUS, Starting on Wed05/21/25 at 1600, Until Wed05/21/25 at 1926, Infuse at 20 mL/hr. May increase rate of carrier fluid to max rate of drug in line to manage drug induced burning at IV site during infusion and/or to clear the line of drug and flush the IV site for a maximum of 30 min post drug administration. Start: 05-11-2025 End: 05-11-2025 1-100 mL, Intravenous, ONCE NEEDED, 1 dose, Starting on Wed05/11/25 at 0813, Until Wed05/11/25 at 0813, Flush, CT Procedure spironolactone 25 mg oral tablet (20 sources) Aldosterone Antagonist Start: 06-10-2025 End: 06-18-2025 take 25 mg by mouth once daily in the morning 25 mg, Oral, DAILY EVERY MORNING, First dose (after last modification) on Wed06/11/25 at 0900, Until Discontinued, Max 400 mg/day. Do not crush, split or chew at bedside (hazardous drug). Contact pharmacy if alternate route or dose is needed. Start: 12-21-2023 End: 12-17-2024 take 1 tablet by mouth once daily Start: 11-24-2023 End: 12-21-2023 take 1 tablet by mouth once daily Spironolactone 25 mg tablet Discontinued 25 MG PO Daily November 24, 2023 1:00am December 21, 2023 4:05pm Start: 04-11-2021 take 1 mg by mouth twice daily spironolactone 25 mg Tab mg tab(s), Oral, BID, Refills(s) 0 Start Date: 04/11/21 Status: Ordered Repeat number: 1 [id number] (Lymphoseek) injection 0.992 millicurie (2 sources) Start: 10-28-2023 End: 10-28-2023 [id number] (Lymphoseek) injection 0.992 millicurie triamcinolone acetonide 40 mg/ml injectable suspension (13 sources) Corticosteroid Start: 01-06-2023 Kenalog-40 May, 60 mg Vitamin D3 5000 intl units oral capsule (4 sources) Start: 04-08-2020 take 1 capsule by mouth once daily at mealtime Vitamin D3 5000 intl units oral capsule 5,000 International_Unit = 1 cap(s), Oral, Daily, with food, # 100 cap(s), Refills(s) 0 Start Date: 04/08/20 Status: Ordered Quantity: 100.0 Unit: cap(s) Repeat number: 1 Start: 04-08-2020 take 1 capsule by mo [facility] once daily at mealtime Vitamin D3 5000 [...] Atrial fibrillation; Translations: [Paroxysmal atrial fibrillation] Onset: 2 03-28-2020 Chronic Cardiac dysrhythmias (6 sources) Bradycardia; Translations: [Bradycardia, unspecified] 03-28-2020 Episodic Cataract (8 sources) Age-related nuclear cataract, right eye; Translations: [Age-related nuclear cataract, left eye] Onset: 2 Chronic Coagulation and hemorrhagic disorders (20 sources) Thrombocytopenic disorder; Translations: [Thrombocytopenia, unspecified] 04-25-2024 Chronic Complication of device; implant or graft (11 sources) Stenosis of other cardiac prosthetic devices, implants and grafts, initial encounter; Translations: [Stenosis of other cardiac prosthetic devices, implants and grafts, initial encounter] Episodic Conduction disorders (20 sources) H/O: cardiac pacemaker in situ; Translations: [Presence of cardiac pacemaker] Onset: 3 Chronic Congestive heart failure; nonhypertensive (20 sources) Chronic systolic (congestive) heart failure; Translations: [Chronic systolic heart failure] Onset: 3 Chronic Comment on above: Echo: LVEF 55%, RACHAEL, normal RV size/function, RVSP 69, bioprosthetic MV - 12/2024,NM stress: no ischemia, LVEF 43%, fixed anterior wall defect - 04/2021,LHC: PCI/stent LAD - 2018 Coronary atherosclerosis and other heart disease (20 sources) Coronary arteriosclerosis; Translations: [Generalized ischemic myocardial dysfunction] Onset: 2 03-28-2020 Chronic Comment on above: Echo: [id number]%, BA E, RV dilated, RVSP 72, bioprosthetic MV - 05/2024 Echo: LVEF 55%, RACHAEL, normal RV size/function, RVSP 69, bioprosthetic MV - 12/2024,NM stress: no ischemia, LVEF 43%, fixed anterior wall defect - 04/2021,LHC: PCI/stent LAD NM stress: no ischem ia, LVEF 43%, fixed anterior wall defect - 04/2021,LHC: PCI/stent LAD Echo: LVEF 55%, RACHAEL, normal RV size/function, RVSP 69, bioprosthetic MV - 12/2024,NM stress: no ischemia, LVEF 43%, fixed anterior wall defect - 04/2021,LHC: PCI/stent LAD - 2018 Deficiency and other anemia (20 sources) Iron deficiency anemia; Translations: [Iron deficiency anemia, unspecified] 01-19-2024 Episodic Deficiency and other anemia (18 sources) Anemia; Translations: [Anemia, unspecified] Onset: 4 01-16-2024 Episodic Deficiency and other anemia (10 sources) Anemia, unspecified; Translations: [Anemia, unspecified] 01-19-2024 Episodic Disorders of lipid metabolism (20 sources) Hyperlipidemia; Translations: [Pure hypercholesterolemia] Onset: 0 03-28-2020 Chronic Essential hypertension (20 sources) Hypertensive disorder; Translations: [Essential (primary) hypertension] Onset: 4 03-28-2020 Chronic Fluid and electrolyte disorders (12 sources) Hypokalemia; Translations: [Hypokalemia] Onset: 5 06-09-2025 Episodic Fracture of upper limb (3 sources) [...] EHR Cmte Genitourinary symptoms and ill-defined conditions (4 sources) 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 Genitourinary symptoms and ill-defined conditions (11 sources) Nocturia; Translations: [Nocturia] Onset: 2 Episodic Heart valve disorders (13 sources) History of heart valve repair with prosthesis; Translations: [Presence of prosthetic heart valve] Chronic Hyperplasia of prostate (20 sources) Benign prostatic hypertrophy with outflow obstruction; [...] cerebral infarction affecting left non-dominant side] Chronic Malaise and fatigue (3 sources) Fatigue; Translations: [Other fatigue] Onset: 5 06-09-2025 Episodic Melanomas of skin (20 sources) Malignant melanoma of forehead; Translations: [Malignant melanoma of other parts of face] Onset: 3 10-08-2023 Chronic Comment on above: Dx: metastat ic neck LN.s/p resection w/ clear margins.s/p Parotidectomy and lymph node resection. Mycoses (3 sources) Histoplasmosis; Translations: [Histoplasmosis, unspecified] Episodic Nutritional deficiencies (2 sources) Vitamin D deficiency; Translations: [Vitamin D deficiency, unspecified] Chronic Occlusion or stenosis of precerebral arteries (6 sources) Carotid artery stenosis; Translations: [Left carotid artery occlusion] 03-28-2020 Chronic Other aftercare (10 sources) Long-term current use of anticoagulant; Translations: [penitentiary (current) use of anticoagulants] Episodic Other aftercare (5 sources) penitentiary (current) use of anticoagulants; Translations: [[facility]I CURRNT USE ANTICOAGULANTS] Onset: 3 Episodic Other aftercare (5 sources) Encounter for therapeutic drug level monitoring; Translations: [ENC THERAPEUTC DRUG LEVL MONITORING] Onset: 3 Episodic Other aftercare (2 sources) Other half-way (current) drug therapy; Translations: [OTH [facility] CURRENT DRUG THERAPY] Onset: 2 Episodic Other aftercare (2 sources) Long-term current use of drug therapy; Translations: [Other half-way (current) drug therapy] Episodic Other circulatory disease (2 sources) History of cerebrovascular accident without residual deficits; Translations: [Personal history of transient ischemic attack (TIA), and cerebral infarction without residual deficits] Episodic Other circulatory disease (5 sources) Carotid bruit; Translations: [Other specified symptoms and signs involving the circulatory and respiratory systems] 11-20-2024 Episodic Comment on above: Carotid US: < 50% B/ L - 06/2021 Other connective tissue disease (2 sources) Polymyalgia [...] Episodic Other diseases of veins and lymphatics (8 sources) Venous insufficiency (chronic) (peripheral); Translations: [Venous (peripheral) insufficiency, unspecified] Episodic Other diseases of veins and lymphatics [...] diseases of the digestive system] Episodic Other lower respiratory disease (1 source) Dyspnea on exertion; Translations: [Other forms of dyspnea] 06-09-2025 Episodic Other lower respiratory disease (2 sources) Other forms of dyspnea; Translations: [Other forms of dyspnea] Onset: 5 Episodic Other nervous system disorders (1 source) Postoperative pain ; Translations: [Other acute postprocedural pain] 10-28-2023 Episodic Other non-traumatic joint disorders (10 sources) Shoulder joint pain; Translations: [Pain in right shoulder] Episodic Other non-traumatic joint disorders (1 source) Pain in right shoulder; Translations: [Acute pain of right shoulder] Episodic Other nutritional; endocrine; and metabolic disorders (2 sources) Hypomagnesemia; Translations: [Hypomagnesemia] Onset: 5 06-09-2025 Chronic Other nutritional; endocrine; and metabolic disorders (1 source) Hypomagnesemia; Translations: [Hypomagnesemia] Onset: 5 Chronic Other nutritional; endocrine; and metabolic disorders (11 sources) Abnormal weight loss; Translations: [Abnormal weight loss] Episodic Other nutritional; endocrine; and metabolic disorders (2 sources) Loss of appetite; Translations: [Anorexia] Episodic Other nutritional; endocrine; and metabolic disorders (13 sources) Adult failure to thrive syndrome; Translations: [Adult failure to thrive] Onset: 5 06-10-2025 Episodic Other screening for suspected conditions (not mental disorders or infectious disease) (20 sources) Raised prostate specific antigen; Translations: [CT of abdomen abnormal] Onset: 5 03-28-2020 Episodic Other skin disorders (6 sources) Vesicular eczema; Translations: [Dyshidrosis [pompholyx]] 11-20-2024 Episodic Other skin disorders (4 sources) Dyshidrosis [pompholyx]; Translations: [Dyshidrosis] 11-20-2024 Episodic Other upper respiratory disease (11 sources) Allergic rhinitis due to pollen; Translations: [Allergic rhinitis due to pollen] Chronic Other upper respiratory disease (3 sources) Allergic rhinitis due to pollen Chronic Other upper respiratory disease (6 sources) Allergic rhinitis; Translations: [Allergic rhinitis, unspecified] 11-20-2024 Chronic Other upper respiratory disease (4 sources) Allergic rhinitis, unspecified; Translations: [Allergic rhinitis, cause unspecified] 11-20-2024 Chronic Karen-; endo-; and myocarditis; cardiomyopathy (except that caused by tuberculosis or sexually transmitted disease) (20 sources) Valvular endocarditis; Translations: [Endocarditis, valve unspecified] Onset: 9 07-07-2019 Chronic Pulmonary heart disease (20 sources) Pulmonary hypertension; Translations: [Pulmonary hypertension, unspecified] Onset: 5 01-26-2025 Chronic Comment on above: Echo: LVEF 55%, RACHAEL, normal RV size/function, RVSP 69, bioprosthetic MV - 12/2024, Residual codes; unclassified (7 sources) Edema of left lower limb; Translations: [Localized edema] 01-05-2025 Episodic Residual codes; unclassified (4 sources) Localized edema; Translations: [Edema] 01-05-2025 Episodic Residual codes; unclassified (2 sources) Personal history of other medical treatment; Translations: [Personal history of other medical treatment] Onset: Episodic Rheumatoid arthritis and related disease (20 sources) Rheumatoid arthritis; Translations: [Rheumatoid arthritis without rheumatoid factor, right wrist] Onset: 4 03-28-2020 Chronic Secondary malignancies (3 sources) Metastatic malignant melanoma 05-11-2025 Chronic Skin and subcutaneous tissue infections (20 sources) Cellulitis; Translations: [Cellulitis of unspecified part of limb] 01-05-2025 Episodic Sprains and strains (2 sources) Strain of muscle, fascia and tendon of the posterior muscle group at thigh level, left thigh, subsequent encounter; Translations: [Strain of muscle, fascia and tendon of the posterior muscle group at thigh level, left thigh, subsequent encounter] Episodic Thyroid disorders (20 sources) Autoimmune thyroiditis; Translations: [Autoimmune thyroiditis] Onset: 5 Chronic Unclassified (3 sources) CONTACT W/AND (SUSP) EXPOS COVID-19; Translations: [CONTACT W/AND (SUSP) EXPOS COVID-19] Onset: 3 Unclassified (1 source) PERSONAL HISTORY OF COVID-19; Translations: [PERSONAL HISTORY OF COVID-19] Onset: 2 Unclassified (2 sources) Malignant melanoma of head; Translations: [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] Unclassified (1 source) Encounter for other specified prophylactic measures; Translations: [Encounter for other specified prophylactic measures] Onset: 5 Viral infection (2 sources) Disease caused by 2019-nCoV; Translations: [COVID-19] Past or Other Problems Problem Classification Problem Date Documented Date Episodic/Chronic Acute posthemorrhagic anemia (2 sources) Acute posthemorrhagic anemia; Translations: [Acute posthemorrhagic anemia] Onset: 06-30-2017 Episodic Coronary atherosclerosis and other heart disease (5 sources) Presence of coronary angioplasty implant and graft; Translations: [Presence of aortocoronary bypass graft] Onset: 05-06-2022 Episodic Mood disorders (20 sources) Mood disorders Onset: 05-10-2025 Resolved: 05-24-2025 05-10-2025 Open wounds of extremities (2 sources) Laceration without foreign body of left elbow, subsequent encounter; Translations: [Laceration without foreign body of left elbow, subsequent encounter] Resolved: 04-30-2021 Episodic Other circulatory disease (1 source) Personal history of transient ischemic attack (TIA), and cerebral infarction without residual deficits; Translations: [PERS HX TIA AND CI NO RESID DEFICIT] Onset: 05-06-2022 Episodic Other eye disorders (11 sources) Dermatochalasis of right upper eyelid; Translations: [Dermatochalasis] Onset: 02-16-2024 04-27-2024 Episodic Other eye disorders (10 sources) Ptosis of eyebrow; Translations: [Brow ptosis, [...] ABSENCE OTH GENITAL ORGANS] Onset: 05-06-2022 Episodic Residual codes; unclassified (2 sources) Edema, unspecified; Translations: [Edema, unspecified] Onset: 03-01-2025 Episodic Unclassified (1 source) CONTACT W/AND (SUSP) EXPOS COVID-19; Translations: [CONTACT W/AND (SUSP) EXPOS COVID-19] Onset: 01-22-2023 Unclassified (11 sources) Onset: 10-08-2023 Resolved: 01-17-2024 10-08-2023 Unclassified (1 source) Patient encounter status 06-07-2025 Unclassified (1 source) Encounter for other specified prophylactic measures; Translations: [Encounter for other specified prophylactic measures] Onset: 05-21-2025 Results Test Name Value Interpretation Reference Range Facility CALCIUMon 06-18-2025 Calcium [Mass/Vol] 9.2 mg/dL 8.6 - 10. 5 mg/dL [facility] Calcium [Mass/Vol] 9.2 mg/dL Normal 8.6-10.5 [facility] Comment on above: Performed By: #### P TI #### [facility] (DEFAULT) [address] [place] [id number] CBC AND ELECTRONIC DIFFon Basophils (Bld) [#/Vol] 0.05 10*3/uL 0.00 - 0.09 K/uL [facility] Basophils/100 WBC (Bld) 0.7 % [facility] Differential cell count method Nom (Bld) Electronic Differential [facility] Eosinophils (Bld) [#/Vol] 0.10 10*3/uL 0.00 - 0.48 K/uL [facility] Eosinophils/100 WBC (Bld) 1.3 % [facility] Erythrocyte distribution width (RBC) [Ratio] 14.2 % 10.9 - 14.3 % [facility] Hematocrit (Bld) [Volume fraction] 25.7 % Low 39.6 - 48.8 % [facility] Hemoglobin (Bld) [Mass/Vol] 8.0 g/dL Low 13.4 - 16.8 g/dL [facility] Immature granulocytes (Bld) [#/Vol] 0.07 10*3/uL NINF - 0.07 K/uL [facility] Immature granulocytes/100 WBC (Bld) 0.9 % [facility] Interpretation and review of laboratory results Abnormal [facility] Lymphocytes (Bld) [#/Vol] 0.71 10*3/uL Low 0.83 - 3.57 K/uL [facility] Lymphocytes/100 WBC (Bld) 9.2 % [facility] MCH (RBC) [Entitic mass] 29.6 pg 26.1 - 33.3 pg [facility] MCHC (RBC) [Mass/Vol] 31.1 g/dL Low 31.9 - 36.5 g/dL [facility] MCV (RBC) [Entitic vol] 95.2 fL High 79.0 - 94.5 fL [facility] Monocytes (Bld) [#/Vol] 1.02 10*3/uL High 0.24 - 0.93 K/uL [facility] Monocytes/100 WBC (Bld) 13.3 % O [facility] Neutrophils (Bld) [#/Vol] 5.74 10*3/uL 1.57 - 6.19 K/uL [facility] Nucleated RBC/100 WBC (Bld) [Ratio] 0.0 % NINF [facility] Platelet mean volume (Bld) [Entitic vol] 10.1 fL 8.7 - 12.3 fL [facility] Platelets (Bld) [#/Vol] 252 10*3/uL 146 - 337 K/uL [facility] RBC (Bld) [#/Vol] 2.70 10*6/uL Low [facility] Segmented neutrophils/100 WBC (Bld) 74.6 % [facility] WBC (Bld) [#/Vol] 7.69 10*3/uL 3.73 - 10.10 K/uL [facility] Basophils (Bld) [#/Vol] 0.05 10*3/uL Normal 0.00-0.09 [facility] Comment on above: Performed By: #### U LYTR UCRER #### [facility] (DEFAULT) [address] [place] [id number] Basophils/100 WBC (Bld) 0.7 % Normal O [facility] Comment on above: Performed By: #### U LYTR UCRER #### [facility] (DEFAULT) [address] [place] [id number] DIFF STATUS Electronic Differential Normal [facility] Comment on above: Performed By: #### U LYTR, UCRER #### [facility] (DEFAULT) [address] [place] [id number] Eosinophils (Bld) [#/Vol] 0.10 10*3/uL Normal 0.00-0.48 [facility] Comment on above: Performed By: #### U LYTR, UCRER #### [facility] (DEFAULT) [address] [place] [address] [id number] Eosinophils/100 WBC (Bld) 1.3 % Normal [facility] Comment on above: Performed By: #### U LYTR, UCRER #### [facility] (DEFAULT) [address] [place] [address]994 Hematocrit (Bld) [Volume fraction] 25.7 % Low 39.6-48.8 [facility] Comment on above: Performed By: #### U LYTR, UCRER #### [facility] (DEFAULT) [address] [place] [id number] Hemoglobin (Bld) [Mass/Vol] 8.0 g/dL Low 13.4-16.8 [facility] Comment on above: Performed By: #### U LYTR, UCRER #### [facility] (DEFAULT) [address] [place] [id number] Immature Grans % 0.9 % Normal [facility] Comment on above: Performed By: #### U LYTR, UCRER #### [facility] (DEFAULT) [address] [place] [address] 60999 Immature Grans Absolute 0.07 K/uL Normal <=0.07 O [facility] Comment on above: Performed By: #### U LYTR, UCRER #### [facility] (DEFAULT) [address] [place] [id number] Lymphocytes (Bld) [#/Vol] 0.71 10*3/uL Low 0.83-3.57 [facility] Comment on above: Performed By: #### U LYTR, UCRER #### [facility] (DEFAULT) [address] [place] [id number] Lymphocytes/100 WBC (Bld) 9.2 % Normal [facility] Comment on above: Performed By: #### U LYTR, UCRER #### [facility] (DEFAULT) [address] [place] [address] 19269 MCV (RBC) [Entitic vol] 95.2 fL High 79.0-94.5 O [facility] Comment on above: Performed By: #### U LYTR, UCRER #### [facility] (DEFAULT) [address] [place] [address] 75191 Mean Cell Hgb 29.6 pg Normal 26.1-33.3 [facility] Comment on above: Performed By: #### U LYTR, UCRER #### [facility] (DEFAULT) [address] [place] [address] 63937 Mean Cell Hgb Conc 31.1 g/dL Low 31.9-36.5 [facility] Comment on above: Performed By: #### U LYTR, UCRER #### [facility] (DEFAULT) [address] [place] [address] 22330 Monocytes (Bld) [#/Vol] 1.02 10*3/uL High 0.24-0.93 [facility] Comment on above: Performed By: #### U LYTR, UCRER #### [facility] (DEFAULT) [address] [place] [address] 80222 Monocytes/100 WBC (Bld) 13.3 % Normal O [facility] Comment on above: Performed By: #### U LYTR, UCRER #### [facility] (DEFAULT) [address] [place] [address] 13568 Nucleated RBC 0.0 /100 WBC Normal <=0.2 [facility] Comment on above: Performed By: #### U LYTR, UCRER #### [facility] (DEFAULT) [address] [place] [address] 41125 Platelet mean volume (Bld) [Entitic vol] 10.1 fL Normal 8.7-12.3 [facility] Comment on above: Performed By: #### U LYTR, UCRER #### [facility] (DEFAULT) [address] [place] [address] 24018 Platelets (Bld) [#/Vol] 252 10*3/uL Normal 146-337 [facility] Comment on above: Performed By: #### U LYTR, UCRER #### [facility] (DEFAULT) [address] [place] [address] 11758 RBC (Bld) [#/Vol] 2.70 10*6/uL Low 4.38-5.83 [facility] Comment on above: Performed By: #### U LYTR UCRER #### [facility] (DEFAULT) [address] [place] [address] 79556 RBC Distribution 14.2 % Normal 10.9-14.3 [facility] Comment on above: Performed By: #### U LYTR, UCRER #### [facility] (DEFAULT) [address] [place] [address] 26226 Segs + Bands Auto 74.6 % Normal [facility] Comment on above: Performed By: #### U LYTR, UCRER #### [facility] (DEFAULT) [address] [place] [address] 08857 Segs + Bands,Absolute Auto 5.74 K/uL Normal 1.57-6.19 [facility] Comment on above: Performed By: #### U LYTR, UCRER #### [facility] (DEFAULT) [address] [place] [address] 88426 WBC (Bld) [#/Vol] 7.69 10*3/uL Normal 3.73-10.10 [facility] Comment on above: Performed By: #### U LYTR, UCRER #### [facility] (DEFAULT) [address] [place] [address] 58651 CHEM 7 (LYTES,BUN,CREA,GLUC) on 06-18-2025 Anion gap [Moles/Vol] 17 mmol/L 7 - 17 mmol/L [facility] Chloride [Moles/Vol] 104 mmol/L 98 - 10 8 mmol/L [facility] CO2 [Moles/Vol] 23 mmol/L 21 - 31 mmol/L [facility] Creatinine [Mass/Vol] 1.08 mg/dL 0.70 - 1.30 mg/dL [facility] eGFR, CKD-EPI, Male 68 - PINF [facility] Comment on above: Reported eGFR is bas ed on the CKD-EPI 2020 equation using creatinine, age, and sex. Glucose [Mass/Vol] 110 mg/dL 70 - 179 mg/dL [facility] Osmolality Calc [Osmolality] 297 [facility] Potassium [Moles/Vol] 3.9 mmol/L 3.5 - 5.0 mmol/L [facility] Sodium [Moles/Vol] 140 mmol/L 135 - 145 mmol/L [facility] Urea nitrogen [Mass/Vol] 22 mg/dL 7 - 25 mg/dL [facility] Urea nitrogen/Creatinine [Mass ratio] 20 mg/mg [facility] Anion gap [Moles/Vol] 17 mmol/L Normal 7-17 [facility] Comment on above: Performed By: #### P TI #### [facility] (DEFAULT) [address] [place] [address] 43743 Chloride [Moles/Vol] 104 mmol/L Normal 98-108 [facility] Comment on above: Performed By: #### P TI #### [facility] (DEFAULT) [address] [place] [address] 33996 CO2 [Moles/Vol] 23 mmol/L Normal 21-31 [facility] Comment on above: Performed By: #### P TI #### [facility] (DEFAULT) [address] [place] [address] 47292 Creatinine [Mass/Vol] 1.08 mg/dL Normal 0.70-1.30 [facility] Comment on above: Performed By: #### P TI #### [facility] (DEFAULT) [address] [place] [address] 38846 GFR/1.73 sq M.predicted among non-blacks MDRD (S/P/Bld) [Vol rate/Area] 66 mL/min/{1.73_m2} Normal >=60 [facility] Comment on above: Result Comment: Repo rted eGFR is based on the CKD-EPI 2020 equation using creatinine, age, and sex. Performed By: #### P TI #### [facility] (DEFAULT) [address] [place] [address] 53321 Glucose [Mass/Vol] 110 mg/dL Normal Nonfastin -179 mg/dL; Fastin-99 [facility] Comment on above: Performed By: #### P TI #### [facility] (DEFAULT) [address] [place] [address] 32544 Osmolality [Osmolality] 297 mosm/kg Normal 278-305 [facility] Comment on above: Performed By: #### P TI #### [facility] (DEFAULT) [address] [place] [address] 10073 Potassium [Moles/Vol] 3.9 mmol/L Normal 3.5-5.0 [facility] Comment on above: Performed By: #### P TI #### [facility] (DEFAULT) [address] [place] [address] 79269 Sodium [Moles/Vol] 140 mmol/L Normal 135-145 [facility] Comment on above: Performed By: #### P TI #### [facility] (DEFAULT) [address] [place] [address] 57743 Urea nitrogen [Mass/Vol] 22 mg/dL Normal 7-25 [facility] Comment on above: Performed By: #### P TI #### [facility] (DEFAULT) [address] [place] [address] 74092 Urea nitrogen/Creatinine [Mass ratio] 20 mg/mg Normal [facility] Comment on above: Performed By: #### P TI #### [facility] (DEFAULT) [address] [place] [address] 17122 MAGNESIUMon 06-18-2025 Magnesium [Mass/Vol] 1.8 mg/dL 1.6 - 2 .6 mg/dL [facility] Magnesium [Mass/Vol] 1.8 mg/dL Normal 1.6-2.6 [facility] Comment on above: Performed By: #### P TI #### [facility] (DEFAULT) [address] [place] [address] 99702 No Panel Informationon 06-18 Interpretation and review of laboratory results Normal [facility] PHOSPHATE, INORGANICon 06-18 Phosphate [Mass/Vol] 3.6 mg/dL 2.2 - 4 .6 mg/dL [facility] Phosphorous 3.6 mg/dL Normal 2.2-4.6 [facility] Comment on above: Performed By: #### P TI #### [facility] (DEFAULT) [address] [place] [address] 04324 PROTIME-INRon 06-18-2025 INR Coag (Bld) [Relative time] 2.8 {INR} High 0.9 - 1.1 [facility] Interpretation and review of laboratory results Abnormal [facility] PT Coag (PPP) [Time] 29.6 s High [facility] INR Coag (PPP) [Relative time] 2.8 {INR} High 0.9-1.1 [facility] Comment on above: Order Comment: Ongoi ng: Daily until INR is therapeutic for 2 consecutive days, then every 2 days for 14 days or until discharged. Performed By: #### C A, CHM7, IPB, T3RIA, MGO #### [facility] (DEFAULT) [address] [place] [address] 02833 PT Coag (PPP) [Time] 29.6 s High 11.9-14.2 [facility] Comment on above: Order Comment: Ongoi ng: Daily until INR is therapeutic for 2 consecutive days, then every 2 days for 14 days or until discharged. Performed By: #### C A, CHM7, IPB, T3RIA, MGO #### [facility] (DEFAULT) [address] [place] [address] 14367 T4 FREEon 06-18-2025 Free T4 [Mass/Vol] 3.49 ng/dL High 0.89 - 1. 76 ng/dL [facility] Interpretation and review of laboratory results Abnormal [facility] Free T4 [Mass/Vol] 3.49 ng/dL High 0.89-1.76 [facility] Comment on above: Performed By: #### P TI #### [facility] (DEFAULT) [address] [place] [address] 89818 TSH W/FT4 REFLEXon Interpretation and review of laboratory results Abnormal [facility] TSH Qn 0.010 m[IU]/L Low [facility] TSH 0.010 uIU/mL Low 0.550-4.780 [facility] Comment on above: Performed By: #### C Kelly, CHM7, IPB, T3RIA, MGO #### [facility] (DEFAULT) [address] [place] [address] 34773 CALCIUMon 06-17-2025 Calcium [Mass/Vol] 9.4 mg/dL 8.6 - 10. 5 mg/dL [facility] Calcium [Mass/Vol] 9.4 mg/dL Normal 8.6-10.5 [facility] Comment on above: Performed By: #### U LYTR, UCRER #### [facility] (DEFAULT) [address] [place] [address] 85174 CBC AND ELECTRONIC DIFFon Basophils (Bld) [#/Vol] 0.05 10*3/uL 0.00 - 0.09 K/uL [facility] Basophils/100 WBC (Bld) 0.6 % [facility] Differential cell count method Nom (Bld) Electronic Differential [facility] Eosinophils (Bld) [#/Vol] 0.07 10*3/uL 0.00 - 0.48 K/uL [facility] Eosinophils/100 WBC (Bld) 0.9 % [facility] Erythrocyte distribution width (RBC) [Ratio] 14.2 % 10.9 - 14.3 % [facility] Hematocrit (Bld) [Volume fraction] 26.3 % Low 39.6 - 48.8 % [facility] Hemoglobin (Bld) [Mass/Vol] 8.2 g/dL Low 13.4 - 16.8 g/dL [facility] Immature granulocytes (Bld) [#/Vol] 0.06 10*3/uL NINF - 0.07 K/uL [facility] Immature granulocytes/100 WBC (Bld) 0.8 % [facility] Interpretation and review of laboratory results Abnormal [facility] Lymphocytes (Bld) [#/Vol] 0.55 10*3/uL Low 0.83 - 3.57 K/uL [facility] Lymphocytes/100 WBC (Bld) 6.9 % [facility] MCH (RBC) [Entitic mass] 29.9 pg 26.1 - 33.3 pg [facility] MCHC (RBC) [Mass/Vol] 31.2 g/dL Low 31.9 - 36.5 g/dL [facility] MCV (RBC) [Entitic vol] 96.0 fL High 79.0 - 94.5 fL [facility] Monocytes (Bld) [#/Vol] 0.97 10*3/uL High 0.24 - 0.93 K/uL [facility] Monocytes/100 WBC (Bld) 12.1 % [facility] Neutrophils (Bld) [#/Vol] 6.29 10*3/uL High 1.57 - 6.19 K/uL [facility] Nucleated RBC/100 WBC (Bld) [Ratio] 0.0 % [facility] Platelet mean volume (Bld) [Entitic vol] 9.9 fL 8.7 - 12.3 fL [facility] Platelets (Bld) [#/Vol] 229 10*3/uL 146 - 337 K/uL [facility] RBC (Bld) [#/Vol] 2.74 10*6/uL [facility]/100 WBC (Bld) 78.7 % [facility] WBC (Bld) [#/Vol] 7.99 10*3/uL 3.73 - 10.10 K/uL [facility] Basophils (Bld) [#/Vol] 0.05 10*3/uL Normal 0.00-0.09 [facility] Comment on above: Performed By: #### C A, CHM7, IPB, T3RIA, MGO #### [facility] (DEFAULT) [address] [place] [address] 44825 Basophils/100 WBC (Bld) 0.6 % Normal O [facility] Comment on above: Performed By: #### C A, CHM7, IPB, T3RIA, MGO #### [facility] (DEFAULT) [address] [place] [address] 10924 DIFF STATUS Electronic Differential Normal [facility] Comment on above: Performed By: #### C A, CHM7, IPB, T3RIA, MGO #### [facility] (DEFAULT) [address] [place] [address] 37379 Eosinophils (Bld) [#/Vol] 0.07 10*3/uL Normal 0.00-0.48 [facility] Comment on above: Performed By: #### C A, CHM7, IPB, T3RIA, MGO #### [facility] (DEFAULT) [address] [place] [address] 03385 Eosinophils/100 WBC (Bld) 0.9 % Normal [facility] Comment on above: Performed By: #### C A, CHM7, IPB, T3RIA, MGO #### [facility] (DEFAULT) [address] [place] [address] 61460 Hematocrit (Bld) [Volume fraction] 26.3 % Low 39.6-48.8 [facility] Comment on above: Performed By: #### C A, CHM7, IPB, T3RIA, MGO #### [facility] (DEFAULT) [address] [place] [address] 54671 Hemoglobin (Bld) [Mass/Vol] 8.2 g/dL Low 13.4-16.8 [facility] Comment on above: Performed By: #### C A, CHM7, IPB, T3RIA, MGO #### [facility] (DEFAULT) [address] [place] [address] 73555 Immature Grans % 0.8 % Normal [facility] Comment on above: Performed By: #### Antoine A, CHM7, IPB, T3RIA, MGO #### [facility] (DEFAULT) [address] [place] [address] 44815 Immature Grans Absolute 0.06 K/uL Normal <=0.07 O [facility] Comment on above: Performed By: #### C A, CHM7, IPB, T3RIA, MGO #### [facility] (DEFAULT) [address] [place] [address] 49548 Lymphocytes (Bld) [#/Vol] 0.55 10*3/uL Low 0.83-3.57 [facility] Comment on above: Performed By: #### C A, CHM7, IPB, T3RIA, MGO #### [facility] (DEFAULT) [address] [place] [address] 27063 Lymphocytes/100 WBC (Bld) 6.9 % Normal [facility] Comment on above: Performed By: #### C A, CHM7, IPB, T3RIA, MGO #### [facility] (DEFAULT) [address] [place] [address] 33035 MCV (RBC) [Entitic vol] 96.0 fL High 79.0-94.5 O [facility] Comment on above: Performed By: #### Antoine Mendoza, CHM7, IPB, T3RIA, MGO #### [facility] (DEFAULT) [address] [place] [address] 79933 Mean Cell Hgb 29.9 pg Normal 26.1-33.3 [facility] Comment on above: Performed By: #### Antoine Mendoza, CHM7, IPB, T3RIA, MGO #### [facility] (DEFAULT) [address] [place] [address] 04823 Mean Cell Hgb Conc 31.2 g/dL Low 31.9-36.5 [facility] Comment on above: Performed By: #### Antoine Mendoza, CHM7, IPB, T3RIA, MGO #### [facility] (DEFAULT) [address] [place] [address] 36684 Monocytes (Bld) [#/Vol] 0.97 10*3/uL High 0.24-0.93 [facility] Comment on above: Performed By: #### Antoine Mendoza, CHM7, IPB, T3RIA, MGO #### [facility] (DEFAULT) [address] [place] [address] 83787 Monocytes/100 WBC (Bld) 12.1 % Normal [facility] Comment on above: Performed By: #### C Kelly, CHM7, IPB, T3RIA, MGO #### [facility] (DEFAULT) [address] [place] [address] 63200 Nucleated RBC 0.0 /100 WBC Normal <=0.2 [facility] Comment on above: Performed By: #### C A, CHM7, IPB, T3RIA, MGO #### [facility] (DEFAULT) [address] [place] [address] 66073 Platelet mean volume (Bld) [Entitic vol] 9.9 fL Normal 8.7-12.3 [facility] Comment on above: Performed By: #### C A, CHM7, IPB, T3RIA, MGO #### [facility] (DEFAULT) [address] [place] [address] 33811 Platelets (Bld) [#/Vol] 229 10*3/uL Normal 146-337 [facility] Comment on above: Performed By: #### C A, CHM7, IPB, T3RIA, MGO #### [facility] (DEFAULT) [address] [place] [address] 30580 RBC (Bld) [#/Vol] 2.74 10*6/uL Low 4.38-5.83 [facility] Comment on above: Performed By: #### C A, CHM7, IPB, T3RIA, MGO #### [facility] (DEFAULT) [address] [place] [address] 44436 RBC Distribution 14.2 % Normal 10.9-14.3 [facility] Comment on above: Performed By: #### C A, CHM7, IPB, T3RIA, MGO #### [facility] (DEFAULT) [address] [place] [address] 92957 Segs + Bands Auto 78.7 % Normal [facility] Comment on above: Performed By: #### C A, CHM7, IPB, T3RIA, MGO #### [facility] (DEFAULT) [address] [place] [address] 67867 Segs + Bands,Absolute Auto 6.29 K/uL High 1.57-6.19 [facility] Comment on above: Performed By: #### C A, CHM7, IPB, T3RIA, MGO #### [facility] (DEFAULT) [address] [place] [address] 67882 WBC (Bld) [#/Vol] 7.99 10*3/uL Normal 3.73-10.10 [facility] Comment on above: Performed By: #### C A, CHM7, IPB, T3RIA, MGO #### [facility] (DEFAULT) [address] [place] [address] CHEM 7 (LYTES,BUN,CREA,GLUC) on 06-17-2025 Anion gap [Moles/Vol] 17 mmol/L 7 - 17 mmol/L [facility] Chloride [Moles/Vol] 105 mmol/L 98 - 10 8 mmol/L [facility] CO2 [Moles/Vol] 22 mmol/L 21 - 31 mmol/L [facility] Creatinine [Mass/Vol] 1.14 mg/dL 0.70 - 1.30 mg/dL [facility] eGFR, CKD-EPI, Male 64 - PIN[facility] Comment on above: Reported eGFR is bas ed on the CKD-EPI 2020 equation using creatinine, age, and sex. Glucose [Mass/Vol] 108 mg/dL 70 - 179 mg/dL [facility] Osmolality Calc [Osmolality] 297 [facility] Potassium [Moles/Vol] 3.8 mmol/L 3.5 - 5.0 mmol/L [facility] Sodium [Moles/Vol] 140 mmol/L 135 - 145 mmol/L [facility] Urea nitrogen [Mass/Vol] 24 mg/dL 7 - 25 mg/dL [facility] Urea nitrogen/Creatinine [Mass ratio] 21 mg/mg [facility] Anion gap [Moles/Vol] 17 mmol/L Normal 7-17 [facility] Comment on above: Performed By: #### U LYWILLIS UCRER #### [facility] (DEFAULT) [address] [place] [address] Chloride [Moles/Vol] 105 mmol/L Normal 98-108 [facility] Comment on above: Performed By: #### U LYWILLIS UCRER #### [facility] (DEFAULT) [address] [place] [address] CO2 [Moles/Vol] 22 mmol/L Normal 21-31 [facility] Comment on above: Performed By: #### U LYTR UCRER #### [facility] (DEFAULT) [address] [place] [address] 84252 Creatinine [Mass/Vol] 1.14 mg/dL Normal 0.70-1.30 [facility] Comment on above: Performed By: #### U LYTR UCRER #### [facility] (DEFAULT) [address] [place] [address] 36448 GFR/1.73 sq M.predicted among non-blacks MDRD (S/P/Bld) [Vol rate/Area] 62 mL/min/{1.73_m2} Normal >=60 [facility] Comment on above: Result Comment: Repo rted eGFR is based on the CKD-EPI 2020 equation using creatinine, age, and sex. Performed By: #### U LYWILLIS UCRER #### [facility] (DEFAULT) [address] [place] [address] 82802 Glucose [Mass/Vol] 108 mg/dL Normal Nonfastin -179 mg/dL; Fastin-99 [facility] Comment on above: Performed By: #### U LYWILLIS UCRER #### [facility] (DEFAULT) [address] [place] [address] 54742 Osmolality [Osmolality] 297 mosm/kg Normal 278-305 [facility] Comment on above: Performed By: #### U LYWILLIS UCRER #### [facility] (DEFAULT) [address] [place] [address] 79810 Potassium [Moles/Vol] 3.8 mmol/L Normal 3.5-5.0 [facility] Comment on above: Performed By: #### U LYTR UCRER #### [facility] (DEFAULT) [address] [place] [address] 41617 Sodium [Moles/Vol] 140 mmol/L Normal 135-145 [facility] Comment on above: Performed By: #### U LYTR UCRER #### [facility] (DEFAULT) [address] [place] [address] Urea nitrogen [Mass/Vol] 24 mg/dL Normal 7-25 [facility] Comment on above: Performed By: #### LYSSA STAFFORDRER #### [facility] (DEFAULT) [address] [place] [address] Urea nitrogen/Creatinine [Mass ratio] 21 mg/mg Normal [facility] Comment on above: Performed By: #### U JAMES UCRER #### [facility] (DEFAULT) [address] [place] [address] HEAD WITHOUT CONTRASTon 0 06-17-2025 CT HEAD WITHOUT CONTRAST EXAM: CT HEAD WITHOUT CONTRAST, 06/17/2025 6:52 PM COMPARISON: CT HEAD WITH AND WITHOUT CONTRAST May 11, 2025 CLINICAL INDICATIONS: 89 years Male new left facial RELEVANT CLINICAL HISTORY: TECHNIQUE: A series of transaxial computerized tomographic images are obtained from base of skull to vertex without intravenous contrast. Axial whole-head and thin section posterior fossa slices are provided. Reformats: Sagittal and coronal. FINDINGS: Malcolm-white matter differentiation is preserved. No acute large territory infarction is seen. Patchy periventricular white matter hypoattenuation is noted which is non-specific, but likely due to chronic small vessel ischemic changes. Area of hypoattenuation within the right aspect of the margy, not significantly changed from prior (). 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 No acute intracranial hemorrhage is seen. No significant mass effect or midline shift. Ventricles and sulci are enlarged, compatible with brain parenchymal volume loss. Skull appears intact. Evidence of prior bilateral cataract surgery. Scattered polypoid mucosal thickening. Redemonstration of soft tissue lesions at the left ethmoid/sphenoid sinus junction and the right preauricular region, previously seen to be hypermetabolic on PET/CT from April 18, 2025 Visualized mastoid air cells are clear. Atherosclerotic calcifications of the major arteries at the skull base are noted. IMPRESSION: Stable chronic findings without acute abnormality. I personally viewed and interpreted these images and I have reviewed and approved this report. Normal [facility] CT Head WO contraston 2024 IMPRESSION: Stable chronic findings without acute abnormality. I personally viewed and interpreted these images and I have reviewed and approved this report. OLOGY EXAM: CT HEAD WITHOU T CONTRAST, 06/17/2025 6:52 PM COMPARISON: CT HEAD WITH AND WITHOUT CONTRAST May 11, 2025 CLINICAL INDICATIONS: 89 years Male new left facial RELEVANT CLINICAL HISTORY: TECHNIQUE: A series of transaxial computerized tomographic images are obtained from base of skull to vertex without intravenous contrast. Axial whole-head and thin section posterior fossa slices are provided. Reformats: Sagittal and coronal. FINDINGS: Malcolm-white matter differentiation is preserved. No acute large territory infarction is seen. Patchy periventricular white matter hypoattenuation is noted which is non-specific, but likely due to chronic small vessel ischemic changes. Area of hypoattenuation within the right aspect of the margy, not significantly changed from prior (/). 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 No acute intracranial hemorrhage is seen. No significant mass effect or midline shift. Ventricles and sulci are enlarged, compatible with brain parenchymal volume loss. Skull appears intact. Evidence of prior bilateral cataract surgery. Scattered polypoid mucosal thickening. Redemonstration of soft tissue lesions at the left ethmoid/sphenoid sinus junction and the right preauricular region, previously seen to be hypermetabolic on PET/CT from April 18, 2025 Visualized mastoid air cells are clear. Atherosclerotic calcifications of the major arteries at the skull base are noted. RADIOLOGY Danyelle Castillo MD - 06/17/2025 EXAM: CT HEAD WITHOUT CONTRAST, 06/17/2025 6:52 PM COMPARISON: CT HEAD WITH AND WITHOUT CONTRAST May 11, 2025 CLINICAL INDICATIONS: 89 years Male new left facial RELEVANT CLINICAL HISTORY: TECHNIQUE: A series of transaxial computerized tomographic images are obtained from base of skull to vertex without intravenous contrast. Axial whole-head and thin section posterior fossa slices are provided. Reformats: Sagittal and coronal. FINDINGS: Malcolm-white matter differentiation is preserved. No acute large territory infarction is seen. Patchy periventricular white matter hypoattenuation is noted which is non-specific, but likely due to chronic small vessel ischemic changes. Area of hypoattenuation within the right aspect of the margy, not significantly changed from prior (). 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 No acute intracranial hemorrhage is seen. No significant mass effect or midline shift. Ventricles and sulci are enlarged, compatible with brain parenchymal volume loss. Skull appears intact. Evidence of prior bilateral cataract surgery. Scattered polypoid mucosal thickening. Redemonstration of soft tissue lesions at the left ethmoid/sphenoid sinus junction and the right preauricular region, previously seen to be hypermetabolic on PET/CT from April 18, 2025 Visualized mastoid air cells are clear. Atherosclerotic calcifications of the major arteries at the skull base are noted. IMPRESSION IMPRESSION: Stable chronic findings without acute abnormality. I personally viewed and interpreted these images and I have reviewed and approved this report. [facility] Radiology Study observation (narrative) [facility] CT Head WO contrastOrdered B y: Danyelle Sykes on 06-17-2025 [facility] Health Work Phone: MAGNESIUMon 06-17-2025 Magnesium [Mass/Vol] 1.9 mg/dL 1.6 - 2 .6 mg/dL [facility] Magnesium [Mass/Vol] 1.9 mg/dL Normal 1.6-2.6 [facility] Comment on above: Performed By: #### U LYTR, UCRER #### [facility] (DEFAULT) [address] [place] [address] No Panel Informationon 06-17 Interpretation and review of laboratory results Normal [facility] PHOSPHATE, INORGANICon 06-17 Phosphate [Mass/Vol] 3.7 mg/dL 2.2 - 4 .6 mg/dL [facility] Phosphorous 3.7 mg/dL Normal 2.2-4.6 [facility] Comment on above: Performed By: #### Zamzam RAMIREZ, UCRER #### [facility] (DEFAULT) [address] [place] [address] 81158 PROTIME-INRon 06-17-2025 INR Coag (Bld) [Relative time] 2.3 {INR} High 0.9 - 1.1 [facility] Interpretation and review of laboratory results Abnormal [facility] PT Coag (PPP) [Time] 25.7 s High [facility] INR Coag (PPP) [Relative time] 2.3 {INR} High 0.9-1.1 [facility] Comment on above: Order Comment: The r eference range has not been established for random urine specimens. The test result should be integrated into the clinical context for interpretation. Performed By: #### Zamzam RAMIREZ UCRER #### [facility] (DEFAULT) [address] [place] [address] 38561 PT Coag (PPP) [Time] 25.7 s High 11.9-14.2 [facility] Comment on above: Order Comment: The r eference range has not been established for random urine specimens. The test result should be integrated into the clinical context for interpretation. Performed By: #### Zamzam RAMIREZ UCRER #### [facility] (DEFAULT) [address] [place] [address] 86393 CALCIUMon 06-16-2025 Calcium [Mass/Vol] 8.7 mg/dL 8.6 - 10. 5 mg/dL [facility] Calcium [Mass/Vol] 8.7 mg/dL Normal 8.6-10.5 [facility] Comment on above: Performed By: #### C A, CHM7, IPB, T3RIA, MGO #### [facility] (DEFAULT) [address] [place] [address]123 CBC AND ELECTRONIC DIFFon Basophils (Bld) [#/Vol] K/uL 0.00 - 0.09 K/uL [facility] Basophils/100 WBC (Bld) 0.4 % O [facility] Differential cell count method Nom (Bld) Electronic Differential [facility] Eosinophils (Bld) [#/Vol] 0.09 10*3/uL 0.00 - 0.48 K/uL [facility] Eosinophils/100 WBC (Bld) 1.3 % [facility] Erythrocyte distribution width (RBC) [Ratio] 14.2 % 10.9 - 14.3 % [facility] Hematocrit (Bld) [Volume fraction] 23.3 % Low 39.6 - 48.8 % [facility] Hemoglobin (Bld) [Mass/Vol] 7.4 g/dL Low 13.4 - 16.8 g/dL [facility] Immature granulocytes (Bld) [#/Vol] 0.04 10*3/uL NINF - 0.07 K/uL [facility] Immature granulocytes/100 WBC (Bld) 0.6 % [facility] Interpretation and review of laboratory results Abnormal [facility] Lymphocytes (Bld) [#/Vol] 0.58 10*3/uL Low 0.83 - 3.57 K/uL [facility] Lymphocytes/100 WBC (Bld) 8.6 % [facility] MCH (RBC) [Entitic mass] 30.1 pg 26.1 - 33.3 pg [facility] MCHC (RBC) [Mass/Vol] 31.8 g/dL Low 31.9 - 36.5 g/dL [facility] MCV (RBC) [Entitic vol] 94.7 fL High 79.0 - 94.5 fL [facility] Monocytes (Bld) [#/Vol] 0.96 10*3/uL High 0.24 - 0.93 K/uL [facility] Monocytes/100 WBC (Bld) 14.3 % O [facility] Neutrophils (Bld) [#/Vol] 5.01 10*3/uL 1.57 - 6.19 K/uL [facility] Nucleated RBC/100 WBC (Bld) [Ratio] 0.0 % NINF [facility] Platelet mean volume (Bld) [Entitic vol] 10.3 fL 8.7 - 12.3 fL [facility] Platelets (Bld) [#/Vol] 212 10*3/uL 146 - 337 K/uL [facility] RBC (Bld) [#/Vol] 2.46 10*6/uL Low [facility] Segmented neutrophils/100 WBC (Bld) 74.8 % [facility] WBC (Bld) [#/Vol] 6.71 10*3/uL 3.73 - 10.10 K/uL [facility] Abs Baso Auto < Normal 0.00-0.09 [facility] Comment on above: Performed By: #### P TI #### [facility] (DEFAULT) [address] [place] [address] 22768 Basophils/100 WBC (Bld) 0.4 % Normal O [facility] Comment on above: Performed By: #### P TI #### [facility] (DEFAULT) [address] [place] [address] 96475 DIFF STATUS Electronic Differential Normal [facility] Comment on above: Performed By: #### P TI #### [facility] (DEFAULT) [address] [place] [address] 44427 Eosinophils (Bld) [#/Vol] 0.09 10*3/uL Normal 0.00-0.48 [facility] Comment on above: Performed By: #### P TI #### [facility] (DEFAULT) [address] [place] [address] 19175 Eosinophils/100 WBC (Bld) 1.3 % Normal [facility] Comment on above: Performed By: #### P TI #### [facility] (DEFAULT) [address] [place] [address] 53158 Hematocrit (Bld) [Volume fraction] 23.3 % Low 39.6-48.8 [facility] Comment on above: Performed By: #### P TI #### [facility] (DEFAULT) [address] [place] [address] 86853 Hemoglobin (Bld) [Mass/Vol] 7.4 g/dL Low 13.4-16.8 [facility] Comment on above: Performed By: #### P TI #### [facility] (DEFAULT) [address] [place] [address] 69790 Immature Grans % 0.6 % Normal [facility] Comment on above: Performed By: #### P TI #### [facility] (DEFAULT) [address] [place] [address] 02548 Immature Grans Absolute 0.04 K/uL Normal <=0.07 O [facility] Comment on above: Performed By: #### P TI #### [facility] (DEFAULT) [address] [place] [address] 26071 Lymphocytes (Bld) [#/Vol] 0.58 10*3/uL Low 0.83-3.57 [facility] Comment on above: Performed By: #### P TI #### [facility] (DEFAULT) [address] [address] Lymphocytes/100 WBC (Bld) 8.6 % Normal [facility] Comment on above: Performed By: #### P TI #### [facility] (DEFAULT) [address] [address] MCV (RBC) [Entitic vol] 94.7 fL High 79.0-94.5 O [facility] Comment on above: Performed By: #### P TI #### [facility] (DEFAULT) [address] [address] Mean Cell Hgb 30.1 pg Normal 26.1-33.3 [facility] Comment on above: Performed By: #### P TI #### [facility] (DEFAULT) [address] [address] Mean Cell Hgb Conc 31.8 g/dL Low 31.9-36.5 [facility] Comment on above: Performed By: #### P TI #### [facility] (DEFAULT) [address] [address] Monocytes (Bld) [#/Vol] 0.96 10*3/uL High 0.24-0.93 [facility] Comment on above: Performed By: #### P TI #### [facility] (DEFAULT) [address] [address] Monocytes/100 WBC (Bld) 14.3 % Normal O [facility] Comment on above: Performed By: #### P TI #### [facility] (DEFAULT) [address] [address] Nucleated RBC 0.0 /100 WBC Normal <=0.2 [facility] Comment on above: Performed By: #### P TI #### [facility] (DEFAULT) [address] [address] Platelet mean volume (Bld) [Entitic vol] 10.3 fL Normal 8.7-12.3 [facility] Comment on above: Performed By: #### P TI #### [facility] (DEFAULT) [address] [address] Platelets (Bld) [#/Vol] 212 10*3/uL Normal 146-337 [facility] Comment on above: Performed By: #### P TI #### [facility] (DEFAULT) [address] [address] RBC (Bld) [#/Vol] 2.46 10*6/uL Low 4.38-5.83 [facility] Comment on above: Performed By: #### P TI #### [facility] (DEFAULT) [address] [address] RBC Distribution 14.2 % Normal 10.9-14.3 [facility] Comment on above: Performed By: #### P TI #### [facility] (DEFAULT) [address] [place] [address] 69374 Segs + Bands Auto 74.8 % Normal [facility] Comment on above: Performed By: #### P TI #### [facility] (DEFAULT) [address] [place] [address] Segs + Bands,Absolute Auto 5.01 K/uL Normal 1.57-6.19 [facility] Comment on above: Performed By: #### P TI #### [facility] (DEFAULT) [address] [place] [address] 36263 WBC (Bld) [#/Vol] 6.71 10*3/uL Normal 3.73-10.10 [facility] Comment on above: Performed By: #### P TI #### [facility] (DEFAULT) [address] [place] [address] 67614 CHEM 7 (LYTES,BUN,CREA,GLUC) on 06-16-2025 Anion gap [Moles/Vol] 13 mmol/L 7 - 17 mmol/L [facility] Chloride [Moles/Vol] 105 mmol/L 98 - 10 8 mmol/L [facility] CO2 [Moles/Vol] 26 mmol/L 21 - 31 mmol/L [facility] Creatinine [Mass/Vol] 1.09 mg/dL 0.70 - 1.30 mg/dL [facility] eGFR, CKD-EPI, Male 68 - PINF [facility] Comment on above: Reported eGFR is bas ed on the CKD-EPI 2020 equation using creatinine, age, and sex. Glucose [Mass/Vol] 101 mg/dL 70 - 179 mg/dL [facility] Osmolality Calc [Osmolality] 295 [facility] Potassium [Moles/Vol] 3.8 mmol/L 3.5 - 5.0 mmol/L [facility] Sodium [Moles/Vol] 140 mmol/L 135 - 145 mmol/L [facility] Urea nitrogen [Mass/Vol] 21 mg/dL 7 - 25 mg/dL [facility] Urea nitrogen/Creatinine [Mass ratio] 19 mg/mg [facility] Anion gap [Moles/Vol] 13 mmol/L Normal 7-17 [facility] Comment on above: Performed By: #### C A, CHM7, IPB, T3RIA, MGO #### [facility] (DEFAULT) [address] [place] [address] 63202 Chloride [Moles/Vol] 105 mmol/L Normal 98-108 [facility] Comment on above: Performed By: #### C A, CHM7, IPB, T3RIA, MGO #### [facility] (DEFAULT) [address] [place] [address] 66024 CO2 [Moles/Vol] 26 mmol/L Normal 21-31 [facility] Comment on above: Performed By: #### C Kelly, CHM7, IPB, T3RIA, MGO #### [facility] (DEFAULT) [address] [place] [address] 14734 Creatinine [Mass/Vol] 1.09 mg/dL Normal 0.70-1.30 [facility] Comment on above: Performed By: #### C Kelly, CHM7, IPB, T3RIA, MGO #### [facility] (DEFAULT) [address] [place] [address] 21523 GFR/1.73 sq M.predicted among non-blacks MDRD (S/P/Bld) [Vol rate/Area] 66 mL/min/{1.73_m2} Normal >=60 [facility] Comment on above: Result Comment: Repo rted eGFR is based on the CKD-EPI 2020 equation using creatinine, age, and sex. Performed By: #### C A, CHM7, IPB, T3RIA, MGO #### [facility] (DEFAULT) [address] [place] [address] 75949 Glucose [Mass/Vol] 101 mg/dL Normal Nonfastin -179 mg/dL; Fastin-99 [facility] Comment on above: Performed By: #### C A, CHM7, IPB, T3RIA, MGO #### [facility] (DEFAULT) [address] [place] [address] 39843 Osmolality [Osmolality] 295 mosm/kg Normal 278-305 [facility] Comment on above: Performed By: #### C A, CHM7, IPB, T3RIA, MGO #### [facility] (DEFAULT) [address] [place] [address] 76280 Potassium [Moles/Vol] 3.8 mmol/L Normal 3.5-5.0 [facility] Comment on above: Performed By: #### C Kelly, CHM7, IPB, T3RIA, MGO #### [facility] (DEFAULT) [address] [place] [address] 64729 Sodium [Moles/Vol] 140 mmol/L Normal 135-145 [facility] Comment on above: Performed By: #### C Kelly, CHM7, IPB, T3RIA, MGO #### [facility] (DEFAULT) [address] [place] [address] 87487 Urea nitrogen [Mass/Vol] 21 mg/dL Normal 7-25 [facility] Comment on above: Performed By: #### C Kelly, CHM7, IPB, T3RIA, MGO #### [facility] (DEFAULT) [address] [place] [address] 35842 Urea nitrogen/Creatinine [Mass ratio] 19 mg/mg Normal [facility] Comment on above: Performed By: #### C A, CHM7, IPB, T3RIA, MGO #### [facility] (DEFAULT) [address] [place] [address] 55594 MAGNESIUMon 06-16-2025 Magnesium [Mass/Vol] 1.9 mg/dL 1.6 - 2 .6 mg/dL [facility] Magnesium [Mass/Vol] 1.9 mg/dL Normal 1.6-2.6 [facility] Comment on above: Performed By: #### C A, CHM7, IPB, T3RIA, MGO #### [facility] (DEFAULT) [address] [place] [address] No Panel Informationon 06-16 Interpretation and review of laboratory results Normal [facility] Interpretation and review of laboratory results Abnormal [facility] PHOSPHATE, INORGANICon 06-16 Phosphate [Mass/Vol] 3.3 mg/dL 2.2 - 4 .6 mg/dL [facility] Phosphorous 3.3 mg/dL Normal 2.2-4.6 [facility] Comment on above: Performed By: #### GERMAIN Valencia, YEIMIB, T3RIA, MGO #### [facility] (DEFAULT) [address] [place] [address] 08105 PROTIME-INRon 06-16-2025 INR Coag (Bld) [Relative time] 2.2 {INR} High 0.9 - 1.1 [facility] Interpretation and review of laboratory results Abnormal [facility] PT Coag (PPP) [Time] 24.7 s High [facility] INR Coag (PPP) [Relative time] 2.2 {INR} High 0.9-1.1 [facility] Comment on above: Order Comment: Ongoi ng: Daily until INR is therapeutic for 2 consecutive days, then every 2 days for 14 days or until discharged. Performed By: #### C MELBA MendozaM7, IPB, T3RIA, MGO #### [facility] (DEFAULT) [address] [place] [address] 46733 PT Coag (PPP) [Time] 24.7 s High 11.9-14.2 [facility] Comment on above: Order Comment: Ongoi ng: Daily until INR is therapeutic for 2 consecutive days, then every 2 days for 14 days or until discharged. Performed By: #### Antoine Mendoza CHM7, IPB, T3RIA, MGO #### [facility] (DEFAULT) [address] [place] [address] 75967 T3 TOTAL (TRIIODOTHYRONINE)o n 06-16-2025 Interpretation and review of laboratory results Normal [facility] T3 [Mass/Vol] 1.25 ng/mL 0.60 - 1.81 ng/mL [facility] T3 Total (Triiodothyronine) 1.25 ng/mL Normal 0.60-1.81 [facility] Comment on above: Performed By: #### C A, CHM7, IPB, T3RIA, MGO #### [facility] (DEFAULT) [address] [place] [address] 72032 T4 FREEon 06-16-2025 Free T4 [Mass/Vol] 3.08 ng/dL High 0.89 - 1. 76 ng/dL [facility] Free T4 [Mass/Vol] 3.08 ng/dL High 0.89-1.76 [facility] Comment on above: Performed By: #### C Kelly, CHM7, IPB, T3RIA, MGO #### [facility] (DEFAULT) [address] [place] [address] 07709 TSHon 06-16-2025 TSH Qn 0.012 m[IU]/L Low [facility] TSH 0.012 uIU/mL Low 0.550-4.780 [facility] Comment on above: Performed By: #### C A, CHM7, IPB, T3RIA, MGO #### [facility] (DEFAULT) [address] [place] [address] 13222 CALCIUMon 06-15-2025 Calcium [Mass/Vol] 8.3 mg/dL Low 8.6 - 10. 5 mg/dL [facility] Calcium [Mass/Vol] 8.3 mg/dL Low 8.6-10.5 [facility] Comment on above: Performed By: #### U LYTR, UCRER #### [facility] (DEFAULT) [address] [place] [address] 93288 CBC AND ELECTRONIC DIFFon Basophils (Bld) [#/Vol] K/uL 0.00 - 0.09 K/uL [facility] Basophils/100 WBC (Bld) 0.4 % [facility] Differential cell count method Nom (Bld) Electronic Differential [facility] Eosinophils (Bld) [#/Vol] 0.08 10*3/uL 0.00 - 0.48 K/uL [facility] Eosinophils/100 WBC (Bld) 1.1 % [facility] Erythrocyte distribution width (RBC) [Ratio] 14.0 % 10.9 - 14.3 % [facility] Hematocrit (Bld) [Volume fraction] 23.2 % Low 39.6 - 48.8 % [facility] Hemoglobin (Bld) [Mass/Vol] 7.5 g/dL Low 13.4 - 16.8 g/dL [facility] Immature granulocytes (Bld) [#/Vol] 0.05 10*3/uL NINF - 0.07 K/uL [facility] Immature granulocytes/100 WBC (Bld) 0.7 % [facility] Interpretation and review of laboratory results Abnormal [facility] Lymphocytes (Bld) [#/Vol] 0.51 10*3/uL Low 0.83 - 3.57 K/uL [facility] Lymphocytes/100 WBC (Bld) 7.1 % [facility] MCH (RBC) [Entitic mass] 30.4 pg 26.1 - 33.3 pg [facility] MCHC (RBC) [Mass/Vol] 32.3 g/dL 31.9 - 36.5 g/dL [facility] MCV (RBC) [Entitic vol] 93.9 fL 79.0 - 94.5 fL [facility] Monocytes (Bld) [#/Vol] 1.00 10*3/uL High 0.24 - 0.93 K/uL [facility] Monocytes/100 WBC (Bld) 13.9 % [facility] Neutrophils (Bld) [#/Vol] 5.52 10*3/uL 1.57 - 6.19 K/uL [facility] Nucleated RBC/100 WBC (Bld) [Ratio] 0.0 % NINF [facility] Platelet mean volume (Bld) [Entitic vol] 10.0 fL 8.7 - 12.3 fL [facility] Platelets (Bld) [#/Vol] 201 10*3/uL 146 - 337 K/uL [facility] RBC (Bld) [#/Vol] 2.47 10*6/uL Low [facility] Segmented neutrophils/100 WBC (Bld) 76.8 % [facility] WBC (Bld) [#/Vol] 7.19 10*3/uL 3.73 - 10.10 K/uL [facility] Abs Baso Auto < Normal 0.00-0.09 [facility] Comment on above: Performed By: #### S URGP #### [facility] (DEFAULT) [address] [place] [address] 55497 Basophils/100 WBC (Bld) 0.4 % Normal O [facility] Comment on above: Performed By: #### S URGP #### [facility] (DEFAULT) [address] [place] [address] 31211 DIFF STATUS Electronic Differential Normal [facility] Comment on above: Performed By: #### S URGP #### [facility] (DEFAULT) [address] [place] [address] 67898 Eosinophils (Bld) [#/Vol] 0.08 10*3/uL Normal 0.00-0.48 [facility] Comment on above: Performed By: #### S URGP #### [facility] (DEFAULT) [address] [address] Eosinophils/100 WBC (Bld) 1.1 % Normal [facility] Comment on above: Performed By: #### S URGP #### [facility] (DEFAULT) [address] [place] [address] 50403 Hematocrit (Bld) [Volume fraction] 23.2 % Low 39.6-48.8 [facility] Comment on above: Performed By: #### S URGP #### [facility] (DEFAULT) [address] [address] Hemoglobin (Bld) [Mass/Vol] 7.5 g/dL Low 13.4-16.8 [facility] Comment on above: Performed By: #### S URGP #### [facility] (DEFAULT) [address] [address] Immature Grans % 0.7 % Normal [facility] Comment on above: Performed By: #### S URGP #### [facility] (DEFAULT) [address] [address] Immature Grans Absolute 0.05 K/uL Normal <=0.07 O [facility] Comment on above: Performed By: #### S URGP #### [facility] (DEFAULT) [address] [address] Lymphocytes (Bld) [#/Vol] 0.51 10*3/uL Low 0.83-3.57 [facility] Comment on above: Performed By: #### S URGP #### [facility] (DEFAULT) [address] [address] Lymphocytes/100 WBC (Bld) 7.1 % Normal [facility] Comment on above: Performed By: #### S URGP #### [facility] (DEFAULT) [address] [address] MCV (RBC) [Entitic vol] 93.9 fL Normal 79.0-94.5 O [facility] Comment on above: Performed By: #### S URGP #### [facility] (DEFAULT) [address] [address] Mean Cell Hgb 30.4 pg Normal 26.1-33.3 [facility] Comment on above: Performed By: #### S URGP #### [facility] (DEFAULT) [address] [place] [address] 46014 Mean Cell Hgb Conc 32.3 g/dL Normal 31.9-36.5 [facility] Comment on above: Performed By: #### S URGP #### [facility] (DEFAULT) [address] [address] Monocytes (Bld) [#/Vol] 1.00 10*3/uL High 0.24-0.93 [facility] Comment on above: Performed By: #### S URGP #### [facility] (DEFAULT) [address] [address] Monocytes/100 WBC (Bld) 13.9 % Normal O [facility] Comment on above: Performed By: #### S URGP #### [facility] (DEFAULT) [address] [place] [address] 07513 Nucleated RBC 0.0 /100 WBC Normal <=0.2 [facility] Comment on above: Performed By: #### S URGP #### [facility] (DEFAULT) [address] [address] Platelet mean volume (Bld) [Entitic vol] 10.0 fL Normal 8.7-12.3 [facility] Comment on above: Performed By: #### S URGP #### [facility] (DEFAULT) [address] [address] Platelets (Bld) [#/Vol] 201 10*3/uL Normal 146-337 [facility] Comment on above: Performed By: #### S URGP #### [facility] (DEFAULT) [address] [address] RBC (Bld) [#/Vol] 2.47 10*6/uL Low 4.38-5.83 [facility] Comment on above: Performed By: #### S URGP #### [facility] (DEFAULT) [address] [address] RBC Distribution 14.0 % Normal 10.9-14.3 [facility] Comment on above: Performed By: #### S URGP #### [facility] (DEFAULT) [address] [place] [address] 37331 Segs + Bands Auto 76.8 % Normal [facility] Comment on above: Performed By: #### S URGP #### [facility] (DEFAULT) [address] [place] [address] 69822 Segs + Bands,Absolute Auto 5.52 K/uL Normal 1.57-6.19 [facility] Comment on above: Performed By: #### S URGP #### [facility] (DEFAULT) [address] [place] [address] 10151 WBC (Bld) [#/Vol] 7.19 10*3/uL Normal 3.73-10.10 [facility] Comment on above: Performed By: #### S URGP #### [facility] (DEFAULT) [address] [place] [address] 32801 CHEM 7 (LYTES,BUN,CREA,GLUC) on 06-15-2025 Anion gap [Moles/Vol] 13 mmol/L 7 - 17 mmol/L [facility] Chloride [Moles/Vol] 104 mmol/L 98 - 10 8 mmol/L [facility] CO2 [Moles/Vol] 25 mmol/L 21 - 31 mmol/L [facility] Creatinine [Mass/Vol] 1.29 mg/dL 0.70 - 1.30 mg/dL [facility] eGFR, CKD-EPI, Male 56 Low - PINF [facility] Comment on above: Reported eGFR is bas ed on the CKD-EPI 2020 equation using creatinine, age, and sex. Glucose [Mass/Vol] 158 mg/dL 70 - 179 mg/dL [facility] Osmolality Calc [Osmolality] 297 [facility] Potassium [Moles/Vol] 3.6 mmol/L 3.5 - 5.0 mmol/L [facility] Sodium [Moles/Vol] 138 mmol/L 135 - 145 mmol/L [facility] Urea nitrogen [Mass/Vol] 28 mg/dL High 7 - 25 mg/dL [facility] Urea nitrogen/Creatinine [Mass ratio] 22 mg/mg [facility] Anion gap [Moles/Vol] 13 mmol/L Normal 7-17 [facility] Comment on above: Performed By: #### U JAMES UCRER #### [facility] (DEFAULT) [address] [place] [address] 43477 Chloride [Moles/Vol] 104 mmol/L Normal 98-108 [facility] Comment on above: Performed By: #### Zamzam RAMIREZ UCRER #### [facility] (DEFAULT) [address] [place] [address] 22279 CO2 [Moles/Vol] 25 mmol/L Normal 21-31 [facility] Comment on above: Performed By: #### Zamzam RAMIREZ UCRER #### [facility] (DEFAULT) [address] [place] [address] 27365 Creatinine [Mass/Vol] 1.29 mg/dL Normal 0.70-1.30 [facility] Comment on above: Performed By: #### U JAMES UCRER #### [facility] (DEFAULT) [address] [place] [address] 54560 GFR/1.73 sq M.predicted among non-blacks MDRD (S/P/Bld) [Vol rate/Area] 54 mL/min/{1.73_m2} Low >=60 [facility] Comment on above: Result Comment: Repo rted eGFR is based on the CKD-EPI 2020 equation using creatinine, age, and sex. Performed By: #### U JAMES UCRER #### [facility] (DEFAULT) [address] [place] [address] 51934 Glucose [Mass/Vol] 158 mg/dL Normal Nonfastin -179 mg/dL; Fastin-99 [facility] Comment on above: Performed By: #### U LYTR UCRER #### [facility] (DEFAULT) [address] [place] [address] 92704 Osmolality [Osmolality] 297 mosm/kg Normal 278-305 [facility] Comment on above: Performed By: #### U LYTR, UCRER #### [facility] (DEFAULT) [address] [place] [address] 96616 Potassium [Moles/Vol] 3.6 mmol/L Normal 3.5-5.0 [facility] Comment on above: Performed By: #### U LYTR UCRER #### [facility] (DEFAULT) [address] [place] [address] 66877 Sodium [Moles/Vol] 138 mmol/L Normal 135-145 [facility] Comment on above: Performed By: #### U LYWILLIS UCRER #### [facility] (DEFAULT) [address] [place] [address] 20232 Urea nitrogen [Mass/Vol] 28 mg/dL High 7-25 [facility] [facility] Comment on above: Performed By: #### U LYWILLIS UCRER #### [facility] (DEFAULT) [address] [place] [address] 84873 Urea nitrogen/Creatinine [Mass ratio] 22 mg/mg Normal [facility] Comment on above: Performed By: #### U LYTR UCRER #### [facility] (DEFAULT) [address] [place] [address] 52277 MAGNESIUMon 06-15-2025 Magnesium [Mass/Vol] 2.0 mg/dL 1.6 - 2 .6 mg/dL [facility] Magnesium [Mass/Vol] 2.0 mg/dL Normal 1.6-2.6 [facility] Comment on above: Performed By: #### U LYTR, UCRER #### [facility] (DEFAULT) [address] [place] [address] 51131 No Panel Informationon 06-15 Interpretation and review of laboratory results Abnormal [facility] Interpretation and review of laboratory results Normal [facility] PHOSPHATE, INORGANICon 06-15 Phosphate [Mass/Vol] 3.5 mg/dL 2.2 - 4 .6 mg/dL [facility] Phosphorous 3.5 mg/dL Normal 2.2-4.6 [facility] Comment on above: Performed By: #### U KAROL RAMIREZR #### [facility] (DEFAULT) [address] [address] PROTIME-INRon 06-15-2025 INR Coag (Bld) [Relative time] 2.1 {INR} High 0.9 - 1.1 [facility] Interpretation and review of laboratory results Abnormal [facility] PT Coag (PPP) [Time] 23.4 s High [facility] INR Coag (PPP) [Relative time] 2.1 {INR} High 0.9-1.1 [facility] Comment on above: Order Comment: Ongoi ng: Daily until INR is therapeutic for 2 consecutive days, then every 2 days for 14 days or until discharged. Performed By: #### Antoine Mendoza CHM7, IPB, T3RIA, MGO #### [facility] (DEFAULT) [address] [place] [address] 86308 PT Coag (PPP) [Time] 23.4 s High 11.9-14.2 [facility] Comment on above: Order Comment: Ongoi ng: Daily until INR is therapeutic for 2 consecutive days, then every 2 days for 14 days or until discharged. Performed By: #### Antoine Mendoza CHM7, IPB, T3RIA, MGO #### [facility] (DEFAULT) [address] [place] [address] 60745 CALCIUMon 06-14-2025 Calcium [Mass/Vol] 8.9 mg/dL 8.6 - 10. 5 mg/dL [facility] Calcium [Mass/Vol] 8.9 mg/dL Normal 8.6-10.5 [facility] Comment on above: Performed By: #### C A, CHM7, IPB, T3RIA, MGO #### [facility] (DEFAULT) [address] [place] [address] CBC AND ELECTRONIC DIFFon Basophils (Bld) [#/Vol] 0.04 10*3/uL 0.00 - 0.09 K/uL [facility] Basophils/100 WBC (Bld) 0.5 % [facility] Differential cell count method Nom (Bld) Electronic Differential [facility] Eosinophils (Bld) [#/Vol] 0.09 10*3/uL 0.00 - 0.48 K/uL [facility] Eosinophils/100 WBC (Bld) 1.2 % [facility] Erythrocyte distribution width (RBC) [Ratio] 14.2 % 10.9 - 14.3 % [facility] Hematocrit (Bld) [Volume fraction] 25.7 % Low 39.6 - 48.8 % [facility] Hemoglobin (Bld) [Mass/Vol] 8.1 g/dL Low 13.4 - 16.8 g/dL [facility] Immature granulocytes (Bld) [#/Vol] 0.07 10*3/uL NINF - 0.07 K/uL [facility] Immature granulocytes/100 WBC (Bld) 0.9 % [facility] Interpretation and review of laboratory results Abnormal [facility] Lymphocytes (Bld) [#/Vol] 0.57 10*3/uL Low 0.83 - 3.57 K/uL [facility] Lymphocytes/100 WBC (Bld) 7.6 % [facility] MCH (RBC) [Entitic mass] 30.2 pg 26.1 - 33.3 pg [facility] MCHC (RBC) [Mass/Vol] 31.5 g/dL Low 31.9 - 36.5 g/dL [facility] MCV (RBC) [Entitic vol] 95.9 fL High 79.0 - 94.5 fL [facility] Monocytes (Bld) [#/Vol] 1.05 10*3/uL High 0.24 - 0.93 K/uL [facility] Monocytes/100 WBC (Bld) 13.9 % O [facility] Neutrophils (Bld) [#/Vol] 5.71 10*3/uL 1.57 - 6.19 K/uL [facility] Nucleated RBC/100 WBC (Bld) [Ratio] 0.0 % NINF [facility] Platelet mean volume (Bld) [Entitic vol] 10.3 fL 8.7 - 12.3 fL [facility] Platelets (Bld) [#/Vol] 203 10*3/uL 146 - 337 K/uL [facility] RBC (Bld) [#/Vol] 2.68 10*6/uL Low [facility] Segmented neutrophils/100 WBC (Bld) 75.9 % [facility] WBC (Bld) [#/Vol] 7.53 10*3/uL 3.73 - 10.10 K/uL [facility] Basophils (Bld) [#/Vol] 0.04 10*3/uL Normal 0.00-0.09 [facility] Comment on above: Performed By: #### P TI #### [facility] (DEFAULT) [address] [address] Basophils/100 WBC (Bld) 0.5 % Normal O [facility] Comment on above: Performed By: #### P TI #### [facility] (DEFAULT) [address] [place] [address] 09430 DIFF STATUS Electronic Differential Normal [facility] Comment on above: Performed By: #### P TI #### [facility] (DEFAULT) [address] [place] [address] 12395 Eosinophils (Bld) [#/Vol] 0.09 10*3/uL Normal 0.00-0.48 [facility] Comment on above: Performed By: #### P TI #### [facility] (DEFAULT) [address] [place] [address] 11202 Eosinophils/100 WBC (Bld) 1.2 % Normal [facility] Comment on above: Performed By: #### P TI #### [facility] (DEFAULT) [address] [place] [address] 01188 Hematocrit (Bld) [Volume fraction] 25.7 % Low 39.6-48.8 [facility] Comment on above: Performed By: #### P TI #### [facility] (DEFAULT) [address] [place] [address] 05100 Hemoglobin (Bld) [Mass/Vol] 8.1 g/dL Low 13.4-16.8 [facility] Comment on above: Performed By: #### P TI #### [facility] (DEFAULT) [address] [place] [address] 04549 Immature Grans % 0.9 % Normal [facility] Comment on above: Performed By: #### P TI #### [facility] (DEFAULT) [address] [place] [address] 98317 Immature Grans Absolute 0.07 K/uL Normal <=0.07 O [facility] Comment on above: Performed By: #### P TI #### [facility] (DEFAULT) [address] [place] [address] 71173 Lymphocytes (Bld) [#/Vol] 0.57 10*3/uL Low 0.83-3.57 [facility] Comment on above: Performed By: #### P TI #### [facility] (DEFAULT) [address] [address] Lymphocytes/100 WBC (Bld) 7.6 % Normal [facility] Comment on above: Performed By: #### P TI #### [facility] (DEFAULT) [address] [place] [address] 71439 MCV (RBC) [Entitic vol] 95.9 fL High 79.0-94.5 O [facility] Comment on above: Performed By: #### P TI #### [facility] (DEFAULT) [address] [place] [address] 15242 Mean Cell Hgb 30.2 pg Normal 26.1-33.3 [facility] Comment on above: Performed By: #### P TI #### [facility] (DEFAULT) [address] [place] [address] 57764 Mean Cell Hgb Conc 31.5 g/dL Low 31.9-36.5 [facility] Comment on above: Performed By: #### P TI #### [facility] (DEFAULT) [address] [place] [address] 24278 Monocytes (Bld) [#/Vol] 1.05 10*3/uL High 0.24-0.93 [facility] Comment on above: Performed By: #### P TI #### [facility] (DEFAULT) [address] [place] [address] 79992 Monocytes/100 WBC (Bld) 13.9 % Normal O [facility] Comment on above: Performed By: #### P TI #### [facility] (DEFAULT) [address] [address] Nucleated RBC 0.0 /100 WBC Normal <=0.2 [facility] Comment on above: Performed By: #### P TI #### [facility] (DEFAULT) [address] [place] [address]66 Platelet mean volume (Bld) [Entitic vol] 10.3 fL Normal 8.7-12.3 [facility] Comment on above: Performed By: #### P TI #### [facility] (DEFAULT) [address] [place] [address] 47722 Platelets (Bld) [#/Vol] 203 10*3/uL Normal 146-337 [facility] Comment on above: Performed By: #### P TI #### [facility] (DEFAULT) [address] [place] [address] 51375 RBC (Bld) [#/Vol] 2.68 10*6/uL Low 4.38-5.83 [facility] Comment on above: Performed By: #### P TI #### [facility] (DEFAULT) [address] [address] RBC Distribution 14.2 % Normal 10.9-14.3 [facility] Comment on above: Performed By: #### P TI #### [facility] (DEFAULT) [address] [place] [address] 92241 Segs + Bands Auto 75.9 % Normal [facility] Comment on above: Performed By: #### P TI #### [facility] (DEFAULT) [address] [address] Segs + Bands,Absolute Auto 5.71 K/uL Normal 1.57-6.19 [facility] Comment on above: Performed By: #### P TI #### [facility] (DEFAULT) [address] [address] WBC (Bld) [#/Vol] 7.53 10*3/uL Normal 3.73-10.10 [facility] Comment on above: Performed By: #### P TI #### [facility] (DEFAULT) [address] [address] CHEM 7 (LYTES,BUN,CREA,GLUC) on 06-14-2025 Anion gap [Moles/Vol] 16 mmol/L 7 - 17 mmol/L [facility] Chloride [Moles/Vol] 104 mmol/L 98 - 10 8 mmol/L [facility] CO2 [Moles/Vol] 22 mmol/L 21 - 31 mmol/L [facility] Creatinine [Mass/Vol] 1.22 mg/dL 0.70 - 1.30 mg/dL [facility] eGFR, CKD-EPI, Male 59 Low - PINF [facility] Comment on above: Reported eGFR is bas ed on the CKD-EPI 2020 equation using creatinine, age, and sex. Glucose [Mass/Vol] 95 mg/dL 70 - 179 mg/dL [facility] Interpretation and review of laboratory results Abnormal [facility] Osmolality Calc [Osmolality] 293 [facility] Potassium [Moles/Vol] 4.0 mmol/L 3.5 - 5.0 mmol/L [facility] Sodium [Moles/Vol] 138 mmol/L 135 - 145 mmol/L [facility] Urea nitrogen [Mass/Vol] 26 mg/dL High 7 - 25 mg/dL [facility] Urea nitrogen/Creatinine [Mass ratio] 21 mg/mg [facility] Anion gap [Moles/Vol] 16 mmol/L Normal 7-17 [facility] Comment on above: Performed By: #### C A, CHM7, IPB, T3RIA, MGO #### [facility] (DEFAULT) [address] [place] [address]96 Chloride [Moles/Vol] 104 mmol/L Normal 98-108 [facility] Comment on above: Performed By: #### C A, CHM7, IPB, T3RIA, MGO #### [facility] (DEFAULT) [address] [place] [address] 269[address] CO2 [Moles/Vol] 22 mmol/L Normal 21-31 [facility] Comment on above: Performed By: #### C A, CHM7, IPB, T3RIA, MGO #### [facility] (DEFAULT) [address] [place] [address] 45492 Creatinine [Mass/Vol] 1.22 mg/dL Normal 0.70-1.30 [facility] Comment on above: Performed By: #### C A, CHM7, IPB, T3RIA, MGO #### [facility] (DEFAULT) [address] [place] [address] 72629 GFR/1.73 sq M.predicted among non-blacks MDRD (S/P/Bld) [Vol rate/Area] 57 mL/min/{1.73_m2} Low >=60 [facility] Comment on above: Result Comment: Repo rted eGFR is based on the CKD-EPI 2020 equation using creatinine, age, and sex. Performed By: #### Antoine Mendoza, CHM7, IPB, T3RIA, MGO #### [facility] (DEFAULT) [address] [place] [address] 70589 Glucose [Mass/Vol] 95 mg/dL Normal Nonfastin -179 mg/dL; Fastin-99 [facility] Comment on above: Performed By: #### Antoine Mendoza, CHM7, IPB, T3RIA, MGO #### [facility] (DEFAULT) [address] [place] [address] 07600 Osmolality [Osmolality] 293 mosm/kg Normal 278-305 [facility] Comment on above: Performed By: #### Antoine Mendoza, CHM7, IPB, T3RIA, MGO #### [facility] (DEFAULT) [address] [place] [address]674 Potassium [Moles/Vol] 4.0 mmol/L Normal 3.5-5.0 [facility] Comment on above: Performed By: #### Antoine Mendoza, CHM7, IPB, T3RIA, MGO #### [facility] (DEFAULT) [address] [place] [address] 92321 Sodium [Moles/Vol] 138 mmol/L Normal 135-145 [facility] Comment on above: Performed By: #### Antoine Mendoza, CHM7, IPB, T3RIA, MGO #### [facility] (DEFAULT) [address] [place] [address] 27490 Urea nitrogen [Mass/Vol] 26 mg/dL High 7-25 [facility] Comment on above: Performed By: #### Antoine A, CHM7, IPB, T3RIA, MGO #### [facility] (DEFAULT) [address] [place] [address] 99132 Urea nitrogen/Creatinine [Mass ratio] 21 mg/mg Normal [facility] Comment on above: Performed By: #### C Kelly, CHM7, IPB, T3RIA, MGO #### [facility] (DEFAULT) [address] [place] [address] 70504 MAGNESIUMon 06-14-2025 Magnesium [Mass/Vol] 1.9 mg/dL 1.6 - 2 .6 mg/dL [facility] Magnesium [Mass/Vol] 1.9 mg/dL Normal 1.6-2.6 [facility] Comment on above: Performed By: #### C Kelly, CHM7, IPB, T3RIA, MGO #### [facility] (DEFAULT) [address] [place] [address] 34577 No Panel Informationon 06-14 Interpretation and review of laboratory results Normal [facility] PHOSPHATE, INORGANICon 06-14 Phosphate [Mass/Vol] 3.3 mg/dL 2.2 - 4 .6 mg/dL [facility] Phosphorous 3.3 mg/dL Normal 2.2-4.6 [facility] Comment on above: Performed By: #### Antoine Mendoza, MELBAMFeliciano, IPB, T3RIA, MGO #### [facility] (DEFAULT) [address] [place] [address] 08283 PROTIME-INRon 06-14-2025 INR Coag (Bld) [Relative time] 2.1 {INR} High 0.9 - 1.1 [facility] Interpretation and review of laboratory results Abnormal [facility] PT Coag (PPP) [Time] 23.8 s High [facility] INR Coag (PPP) [Relative time] 2.1 {INR} High 0.9-1.1 [facility] Comment on above: Order Comment: Ongoi ng: Daily until INR is therapeutic for 2 consecutive days, then every 2 days for 14 days or until discharged. Performed By: #### C Kelly, CHM7, IPB, T3RIA, MGO #### [facility] (DEFAULT) [address] [place] [address] 14795 PT Coag (PPP) [Time] 23.8 s High 11.9-14.2 [facility] Comment on above: Order Comment: Ongoi ng: Daily until INR is therapeutic for 2 consecutive days, then every 2 days for 14 days or until discharged. Performed By: #### C A, CHM7, IPB, T3RIA, MGO #### [facility] (DEFAULT) [address] [place] [address] 75610 CALCIUMon 06-13-2025 Calcium [Mass/Vol] 9.3 mg/dL 8.6 - 10. 5 mg/dL [facility] Calcium [Mass/Vol] 9.3 mg/dL Normal 8.6-10.5 [facility] Comment on above: Performed By: #### S URGP #### [facility] (DEFAULT) [address] [place] [address]10 CBC AND ELECTRONIC DIFFon Basophils (Bld) [#/Vol] 0.05 10*3/uL 0.00 - 0.09 K/uL [facility] Basophils/100 WBC (Bld) 0.7 % [facility] Differential cell count method Nom (Bld) Electronic Differential [facility] Eosinophils (Bld) [#/Vol] 0.04 10*3/uL 0.00 - 0.48 K/uL [facility] Eosinophils/100 WBC (Bld) 0.5 % [facility] Erythrocyte distribution width (RBC) [Ratio] 14.0 % 10.9 - 14.3 % [facility] Hematocrit (Bld) [Volume fraction] 25.1 % Low 39.6 - 48.8 % [facility] Hemoglobin (Bld) [Mass/Vol] 8.1 g/dL Low 13.4 - 16.8 g/dL [facility] Immature granulocytes (Bld) [#/Vol] 0.04 10*3/uL NINF - 0.07 K/uL [facility] Immature granulocytes/100 WBC (Bld) 0.5 % [facility] Interpretation and review of laboratory results Abnormal [facility] Lymphocytes (Bld) [#/Vol] 0.67 10*3/uL Low 0.83 - 3.57 K/uL [facility] Lymphocytes/100 WBC (Bld) 9.0 % [facility] MCH (RBC) [Entitic mass] 30.8 pg 26.1 - 33.3 pg [facility] MCHC (RBC) [Mass/Vol] 32.3 g/dL 31.9 - 36.5 g/dL [facility] MCV (RBC) [Entitic vol] 95.4 fL High 79.0 - 94.5 fL [facility] Monocytes (Bld) [#/Vol] 1.08 10*3/uL High 0.24 - 0.93 K/uL [facility] Monocytes/100 WBC (Bld) 14.5 % [facility] Neutrophils (Bld) [#/Vol] 5.55 10*3/uL 1.57 - 6.19 K/uL [facility] Nucleated RBC/100 WBC (Bld) [Ratio] 0.0 % NINF [facility] Platelet mean volume (Bld) [Entitic vol] 10.5 fL 8.7 - 12.3 fL [facility] Platelets (Bld) [#/Vol] 199 10*3/uL 146 - 337 K/uL [facility] RBC (Bld) [#/Vol] 2.63 10*6/uL Low [facility] Segmented neutrophils/100 WBC (Bld) 74.8 % [facility] WBC (Bld) [#/Vol] 7.43 10*3/uL 3.73 - 10.10 K/uL [facility] Basophils (Bld) [#/Vol] 0.05 10*3/uL Normal 0.00-0.09 [facility] Comment on above: Performed By: #### C A, CHM7, IPB, T3RIA, MGO #### [facility] (DEFAULT) [address] [place] [address] 67101 Basophils/100 WBC (Bld) 0.7 % Normal O [facility] Comment on above: Performed By: #### C Kelly, CHM7, IPB, T3RIA, MGO #### [facility] (DEFAULT) [address] [place] [address] 17560 DIFF STATUS Electronic Differential Normal [facility] Comment on above: Performed By: #### C A, CHM7, IPB, T3RIA, MGO #### [facility] (DEFAULT) [address] [place] [address] 68065 Eosinophils (Bld) [#/Vol] 0.04 10*3/uL Normal 0.00-0.48 [facility] Comment on above: Performed By: #### C Kelly, CHM7, IPB, T3RIA, MGO #### [facility] (DEFAULT) [address] [place] [address] 45349 Eosinophils/100 WBC (Bld) 0.5 % Normal [facility] Comment on above: Performed By: #### C Kelly, CHM7, IPB, T3RIA, MGO #### [facility] (DEFAULT) [address] [place] [address] 59863 Hematocrit (Bld) [Volume fraction] 25.1 % Low 39.6-48.8 [facility] Comment on above: Performed By: #### C A, CHM7, IPB, T3RIA, MGO #### [facility] (DEFAULT) [address] [place] [address] 49131 Hemoglobin (Bld) [Mass/Vol] 8.1 g/dL Low 13.4-16.8 [facility] Comment on above: Performed By: #### C A, CHM7, IPB, T3RIA, MGO #### [facility] (DEFAULT) [address] [place] [address] 81212 Immature Grans % 0.5 % Normal [facility] Comment on above: Performed By: #### C Kelly, CHM7, IPB, T3RIA, MGO #### [facility] (DEFAULT) [address] [place] [address] 59988 Immature Grans Absolute 0.04 K/uL Normal <=0.07 O [facility] Comment on above: Performed By: #### Antoine Mendoza, CHM7, IPB, T3RIA, MGO #### [facility] (DEFAULT) [address] [place] [address] 36936 Lymphocytes (Bld) [#/Vol] 0.67 10*3/uL Low 0.83-3.57 [facility] Comment on above: Performed By: #### C A, CHM7, IPB, T3RIA, MGO #### [facility] (DEFAULT) [address] [place] [address] 05493 Lymphocytes/100 WBC (Bld) 9.0 % Normal [facility] Comment on above: Performed By: #### Antoine A, CHM7, IPB, T3RIA, MGO #### [facility] (DEFAULT) [address] [place] [address] 80785 MCV (RBC) [Entitic vol] 95.4 fL High 79.0-94.5 O [facility] Comment on above: Performed By: #### Antoine Mendoza, CHM7, IPB, T3RIA, MGO #### [facility] (DEFAULT) [address] [place] [address] 35741 Mean Cell Hgb 30.8 pg Normal 26.1-33.3 [facility] Comment on above: Performed By: #### C A, CHM7, IPB, T3RIA, MGO #### [facility] (DEFAULT) [address] [place] [address] 40977 Mean Cell Hgb Conc 32.3 g/dL Normal 31.9-36.5 [facility] Comment on above: Performed By: #### C A, CHM7, IPB, T3RIA, MGO #### [facility] (DEFAULT) [address] [place] [address] 46945 Monocytes (Bld) [#/Vol] 1.08 10*3/uL High 0.24-0.93 [facility] Comment on above: Performed By: #### C A, CHM7, IPB, T3RIA, MGO #### [facility] (DEFAULT) [address] [place] [address] 35396 Monocytes/100 WBC (Bld) 14.5 % Normal O [facility] Comment on above: Performed By: #### C A, CHM7, IPB, T3RIA, MGO #### [facility] (DEFAULT) [address] [place] [address] 51849 Nucleated RBC 0.0 /100 WBC Normal <=0.2 [facility] Comment on above: Performed By: #### C A, CHM7, IPB, T3RIA, MGO #### [facility] (DEFAULT) [address] [place] [address] 14281 Platelet mean volume (Bld) [Entitic vol] 10.5 fL Normal 8.7-12.3 [facility] Comment on above: Performed By: #### C A, CHM7, IPB, T3RIA, MGO #### [facility] (DEFAULT) [address] [place] [address] 39238 Platelets (Bld) [#/Vol] 199 10*3/uL Normal 146-337 [facility] Comment on above: Performed By: #### C A, CHM7, IPB, T3RIA, MGO #### [facility] (DEFAULT) [address] [place] [address] 69847 RBC (Bld) [#/Vol] 2.63 10*6/uL Low 4.38-5.83 [facility] Comment on above: Performed By: #### C A, CHM7, IPB, T3RIA, MGO #### [facility] (DEFAULT) [address] [place] [address] 73048 RBC Distribution 14.0 % Normal 10.9-14.3 [facility] Comment on above: Performed By: #### C A, CHM7, IPB, T3RIA, MGO #### [facility] (DEFAULT) [address] [place] [address] 49641 Segs + Bands Auto 74.8 % Normal [facility] Comment on above: Performed By: #### C A, CHM7, IPB, T3RIA, MGO #### [facility] (DEFAULT) [address] [place] [address] 56967 Segs + Bands,Absolute Auto 5.55 K/uL Normal 1.57-6.19 [facility] Comment on above: Performed By: #### C A, CHM7, IPB, T3RIA, MGO #### [facility] (DEFAULT) [address] [place] [address] 49001 WBC (Bld) [#/Vol] 7.43 10*3/uL Normal 3.73-10.10 [facility] Comment on above: Performed By: #### C A, CHM7, IPB, T3RIA, MGO #### [facility] (DEFAULT) [address] [place] [address] 59156 CHEM 7 (LYTES,BUN,CREA,GLUC) on 06-13-2025 Anion gap [Moles/Vol] 14 mmol/L 7 - 17 mmol/L [facility] Chloride [Moles/Vol] 102 mmol/L 98 - 10 8 mmol/L [facility] CO2 [Moles/Vol] 25 mmol/L 21 - 31 mmol/L [facility] Creatinine [Mass/Vol] 1.30 mg/dL 0.70 - 1.30 mg/dL [facility] eGFR, CKD-EPI, Male 55 Low - PINF [facility] Comment on above: Reported eGFR is bas ed on the CKD-EPI 2020 equation using creatinine, age, and sex. Glucose [Mass/Vol] 87 mg/dL 70 - 179 mg/dL [facility] Interpretation and review of laboratory results Abnormal [facility] Osmolality Calc [Osmolality] 290 [facility] Potassium [Moles/Vol] 4.5 mmol/L 3.5 - 5.0 mmol/L [facility] Sodium [Moles/Vol] 136 mmol/L 135 - 145 mmol/L [facility] Urea nitrogen [Mass/Vol] 26 mg/dL High 7 - 25 mg/dL [facility] Urea nitrogen/Creatinine [Mass ratio] 20 mg/mg [facility] Anion gap [Moles/Vol] 14 mmol/L Normal 7-17 [facility] Comment on above: Performed By: #### S URGP #### [facility] (DEFAULT) [address] [place] [address] 71921 Chloride [Moles/Vol] 102 mmol/L Normal 98-108 [facility] Comment on above: Performed By: #### S URGP #### [facility] (DEFAULT) [address] [place] [address] 16272 CO2 [Moles/Vol] 25 mmol/L Normal 21-31 [facility] Comment on above: Performed By: #### S URGP #### [facility] (DEFAULT) [address] [place] [address] 86940 Creatinine [Mass/Vol] 1.30 mg/dL Normal 0.70-1.30 [facility] Comment on above: Performed By: #### S URGP #### [facility] (DEFAULT) [address] [place] [address] 69146 GFR/1.73 sq M.predicted among non-blacks MDRD (S/P/Bld) [Vol rate/Area] 53 mL/min/{1.73_m2} Low >=60 [facility] Comment on above: Result Comment: Repo rted eGFR is based on the CKD-EPI 2020 equation using creatinine, age, and sex. Performed By: #### S URGP #### [facility] (DEFAULT) [address] [place] [address] 71130 Glucose [Mass/Vol] 87 mg/dL Normal Nonfastin -179 mg/dL; Fastin-99 [facility] Comment on above: Performed By: #### S URGP #### [facility] (DEFAULT) [address] [place] [address] Osmolality [Osmolality] 290 mosm/kg Normal 278-305 [facility] Comment on above: Performed By: #### S URGP #### [facility] (DEFAULT) [address] [place] [address] 50401 Potassium [Moles/Vol] 4.5 mmol/L Normal 3.5-5.0 [facility] Comment on above: Performed By: #### S URGP #### [facility] (DEFAULT) [address] [place] [id number] Sodium [Moles/Vol] 136 mmol/L Normal 135-145 [facility] Comment on above: Performed By: #### S URGP #### [facility] (DEFAULT) [address] [place] [address] Urea nitrogen [Mass/Vol] 26 mg/dL High 7-25 [facility] Comment on above: Performed By: #### S URGP #### [facility] (DEFAULT) [address] [place] [address] Urea nitrogen/Creatinine [Mass ratio] 20 mg/mg Normal [facility] Comment on above: Performed By: #### S URGP #### [facility] (DEFAULT) [address] [place] [address] MAGNESIUMon 06-13-2025 Magnesium [Mass/Vol] 2.0 mg/dL 1.6 - 2 .6 mg/dL [facility] Magnesium [Mass/Vol] 2.0 mg/dL Normal 1.6-2.6 [facility] Comment on above: Performed By: #### S URGP #### [facility] (DEFAULT) [address] [address] No Panel Informationon 06-13 Interpretation and review of laboratory results Normal [facility] Orders Onlyon 06-13-2025 Orders Only [id number] Sebastian Hannon 1935 M Date Provider Department Center 06/13/2025 GrettaNU [facility] CARD [facility] HeartVAS Family History Problem Relation Age of Onset Other Mother Coronary artery disease Father Family Status - Relation Status Age at Mother Father Normal [facility] PHOSPHATE, INORGANICon 06-13 Phosphate [Mass/Vol] 3.5 mg/dL 2.2 - 4 .6 mg/dL [facility] Phosphorous 3.5 mg/dL Normal 2.2-4.6 [facility] Comment on above: Performed By: #### S URGP #### [facility] (DEFAULT) [address] [address] PROTIME-INRon 06-13-2025 INR Coag (Bld) [Relative time] 3.0 {INR} High 0.9 - 1.1 [facility] Interpretation and review of laboratory results Abnormal [facility] PT Coag (PPP) [Time] 31.6 s High [facility] INR Coag (PPP) [Relative time] 3.0 {INR} High 0.9-1.1 [facility] Comment on above: Order Comment: Ongoi ng: Daily until INR is therapeutic for 2 consecutive days, then every 2 days for 14 days or until discharged. Performed By: #### P TI #### [facility] (DEFAULT) [address] [address] PT Coag (PPP) [Time] 31.6 s High 11.9-14.2 [facility] Comment on above: Order Comment: Ongoi ng: Daily until INR is therapeutic for 2 consecutive days, then every 2 days for 14 days or until discharged. Performed By: #### P TI #### [facility] (DEFAULT) [address] [place] [address] RF videography Hypopharynx a nd Esophagus Views W liquid and paste contrast PO during swallowingon 06-13-2025 IMPRESSION: 1. Laryngeal vestibular penetration occurred with thin, mildly thick, and puree. There was no visualized aspiration. 2. Mild residue in the vallecula for puree. Please see the speech language pathologist report for further details and dietary recommendations. I personally viewed and interpreted these images and I have reviewed and approved this report. OLOGY EXAM: XR FLUORO MODIFIED BARIUM SWALLOW WITH SPEECH, 06/13/2025 11:25 AM COMPARISON: No prior barium swallow studies available for comparison. CLINICAL INDICATIONS: Dysphagia. TECHNIQUE: Various consistencies of barium were given by mouth using video fluoroscopy, in conjunction with the speech language pathologist. TOTAL FLUORO TIME: 3.2 min FINDINGS: Pharyngeal Phase: Thin: - Laryngeal vestibule penetration occurs. - Aspiration below the vocal cords does not occur. Mildly thick/nectar: - Laryngeal vestibule penetration occurs. - Aspiration below the vocal cords does not occur. Moderately thick/honey: - Laryngeal vestibule penetration does not occur. - Aspiration below the vocal cords does not occur. Pudding: - Laryngeal vestibule penetration occurs. Shallow. - Aspiration below the vocal cords does not occur. Solid: - Laryngeal vestibule penetration does not occur. - Aspiration below the vocal cords does not occur. Cervical Phase: Unremarkable. RADIOLOGY Jose Rojas MD - 06/13/2025 EXAM: XR FLUORO MODIFIED BARIUM SWALLOW WITH SPEECH, 06/13/2025 11:25 AM COMPARISON: No prior barium swallow studies available for comparison. CLINICAL INDICATIONS: Dysphagia. TECHNIQUE: Various consistencies of barium were given by mouth using video fluoroscopy, in conjunction with the speech language pathologist. TOTAL FLUORO TIME: 3.2 min FINDINGS: Pharyngeal Phase: Thin: - Laryngeal vestibule penetration occurs. - Aspiration below the vocal cords does not occur. Mildly thick/nectar: - Laryngeal vestibule penetration occurs. - Aspiration below the vocal cords does not occur. Moderately thick/honey: - Laryngeal vestibule penetration does not occur. - Aspiration below the vocal cords does not occur. Pudding: - Laryngeal vestibule penetration occurs. Shallow. - Aspiration below the vocal cords does not occur. Solid: - Laryngeal vestibule penetration does not occur. - Aspiration below the vocal cords does not occur. Cervical Phase: Unremarkable. IMPRESSION IMPRESSION: 1. Laryngeal vestibular penetration occurred with thin, mildly thick, and puree. There was no visualized aspiration. 2. Mild residue in the vallecula for puree. Please see the speech language pathologist report for further details and dietary recommendations. I personally viewed and interpreted these images and I have reviewed and approved this report. [facility] Radiology Study observation (narrative) [facility] RF videography Hypopharynx a nd Esophagus Views W liquid and paste contrast PO during swallowingOrdered By: Jose Rojas on 06-13-2025 [facility] Work Phone: SPEECH MODIFIED BARIUM KEITH Tejeda 06-13-2025 BERTRAM Turcios 06/13/2025 2:07 PM Acute Care Speech Language Pathology Modified Barium Swallow Evaluation Note Clinical Recommendations Method of Nutrition: PO Intake: oral nutrition and hydration Medication Administration: Per patient preference Recommended Diet Grade: regular (IDDSI 7) Recommended Liquid Consistency: liquid- thin (IDDSI 0) Mealtime Strategies: Upright positioning, Assist with dentures/partials Type of Cues/Supervision: intermittent supervision Oral Swallow Strategies: Posterior head tilt (pt performs naturally) Other Recommendations: Oral care Therapy frequency recommendation(s) in acute: 3 times a week Discharge destination recommendation: Deferred to PT/OT recomendations related to mobility Pain General Pain Documentation (Adult, OB, Peds) Presence of Pain: denies pain/discomfort Presence of Pain Score (Auto-calculated): 0 Comfort/Acceptable General Pain Level/Goal: 0 Precautions Patient Safety Communication Prior to Visit: Nursing Lines/Tubes/Drains (Rehab Status): No critical lines at this time Systems Review Onset of Illness/Injury or Surgery Date (TELEGRAPHIC TYPEWRITER INSTALLER): 06/10/25 Communication Status: Verbal, No deficits noted Hearing Acuity: Impaired Behavioral Observations: pleasant, cooperative Respiratory Status: Room air Respiratory Status O2 Device: room air O2 Sat (%): 96 % Resp Rate: 16 Acute TELEGRAPHIC TYPEWRITER INSTALLER Outcomes Tracking Communicate basic wants and needs?: yes Demo insight/appreciation of deficits?: yes Complete basic problem solving?: yes History of Present Illness: Sebastian Hannon is a 89 y.o. male who was admitted on 06/10/2025 2/2 nausea, decreased appetite, fatigue. 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 No pulmonary embolism. No evidence of acute disease. 2. A few small lung nodules, the largest of which measures 6 mm. 3. Small soft tissue nodule corresponding to the hypermetabolic lesion seen on the prior PET. 4. Cardiomegaly and coronary artery disease. XR Chest 06/09/25: IMPRESSION: Cardiomegaly with clear lungs. Predisposing dysphagia risk factors: FTT Signs of possible chronic dysphagia: poor PO intake, deconditioning, malnutrition (severe) Precipitating dysphagia risk factors: none known TELEGRAPHIC TYPEWRITER INSTALLER History: Previous Exams and Therapy Previous Exams and Therapy: None Prior Results: n/a Baseline method of nutrition: Oral nutrition/hydration Regular (IDDSI 7) Liquid - thin (IDDSI 0) Current method of nutrition: Oral nutrition/hydration Regular (IDDSI 7) Liquid- thin (IDDSI 0) Clinical Reasons for Exam Patient Reported Dysphagia Symptoms: Yes Dysphagia Symptoms: Coughing with oral intake (occasional) Reason(s) for Exam: Clinical concerns for airway events, Clinical concerns for acute dysphagia Acute Dysphagia Risk Factors: none known Chronic Dysphagia Risk Factors: failure to thrive Subjective: Upon arrival to fluoro suite, pt in transport cart. TELEGRAPHIC TYPEWRITER INSTALLER assisted radiology staff with transferring patient to fluoro chair. Education provided to patient re: purpose of exam and plan to complete PO trials during today's assessment. Pt in agreement to participate. Oral Mechanism Exam Oral Mucosa Healthy appearing mucosa Oral Secretions Normal Dentition Upper denture, Lower denture Face: Sensory Function Did not test Face: Motor Function Symmetrical at rest Mandible Functional bilateral symmetry, range of motion and perceived strength of masseter and temporal muscles Lips Symmetrical at rest and during movement Tongue Symmetrical, functional range of motion in all planes, Impaired strength clinically, Impaired sensation Soft Palate Symmetrical, bilateral elevation with speech tasks, Uvula is midline Gag Response Did not test Neck and Shoulders (Reduced ROM) Cranial Nerve Impairments XII Hypoglossal Nerve (question potential cranial nerve impairment given reduced anterior to posterior bolus movement) GRBAS: A perceptual rating scale for voice parameters Rating scale of 0 to 3 (0 = no impairment, 1 = minimal to mild impairment, 2 = moderate impairment, 3 = severe impairment) Grade of dysphonia (G): 1 Roughness (R): 1 Breathiness (B): 0 Asthenia (A): 1 Strain (S): 0 Procedure Details: Patient was positioned : Chair Exam Was Conducted In: Lateral Barriers to Completion of A-P View: Mobility limitations/restricti ons (kyphotic) Consistencies Assessed: Thin Liquid Barium: Spoon, Cup, Straw Mildly Thick/[place]ancy [place] Liquid Barium: Spoon, Straw Moderately Thick/Honey Liquid Barium: Spoon Pudding Barium: Spoon Regular Solid Contrasted with Barium: Cracker/Cookie Oral Phase Lip Closure: WFL, no labial escape Tongue Control During Bolus Hold: Cohesive bolus between tongue to (more content not included)... [facility] THYROTROPIN RECEPTOR ANTIBOD Yon 06-13-2025 TSH receptor Ab Qn (S) <1.10 [facility] Comment on above: ADDITIONAL INFORMATION At a decision limit of 1.75 IU/L, this assay has 97% sensitivity and 99% specificity for detection of Graves' disease. In healthy individuals and in patients with thyroid disease without diagnosis of Graves' disease, the upper limit of anti-TSHR values are 1.22 IU/L and 1.58 IU/L, respectively (97.5th percentiles). Test Performed by: [facility] [address] [place] [address] Planning Assistant: Sha Graham Ph.D.; CLIA# [id number] [facility] XR FLUORO MODIFIED BARIUM SW ALLOW WITH SPEECHon 06-13-2025 XR FLUORO MODIFIED BARIUM SWALLOW WITH SPEECH EXAM: XR FLUORO MODIFIED BARIUM SWALLOW WITH SPEECH, 06/13/2025 11:25 AM COMPARISON: No prior barium swallow studies available for comparison. CLINICAL INDICATIONS: Dysphagia. TECHNIQUE: Various consistencies of barium were given by mouth using video fluoroscopy, in conjunction with the speech language pathologist. TOTAL FLUORO TIME: 3.2 min FINDINGS: Pharyngeal Phase: Thin: - Laryngeal vestibule penetration occurs. - Aspiration below the vocal cords does not occur. Mildly thick/nectar: - Laryngeal vestibule penetration occurs. - Aspiration below the vocal cords does not occur. Moderately thick/honey: - Laryngeal vestibule penetration does not occur. - Aspiration below the vocal cords does not occur. Pudding: - Laryngeal vestibule penetration occurs. Shallow. - Aspiration below the vocal cords does not occur. Solid: - Laryngeal vestibule penetration does not occur. - Aspiration below the vocal cords does not occur. Cervical Phase: Unremarkable. IMPRESSION: 1. Laryngeal vestibular penetration occurred with thin, mildly thick, and puree. There was no visualized aspiration. 2. Mild residue in the vallecula for puree. Please see the speech language pathologist report for further details and dietary recommendations. I personally viewed and interpreted these images and I have reviewed and approved this report. Normal [facility] CALCIUMon 06-12-2025 Calcium [Mass/Vol] 9.0 mg/dL 8.6 - 10. 5 mg/dL [facility] Calcium [Mass/Vol] 9.0 mg/dL Normal 8.6-10.5 [facility] Comment on above: Performed By: #### S URGP #### [facility] (DEFAULT) [address] [place] [address] CBC AND ELECTRONIC DIFFon Basophils (Bld) [#/Vol] 0.05 10*3/uL 0.00 - 0.09 K/uL [facility] Basophils/100 WBC (Bld) 0.6 % [facility] Differential cell count method Nom (Bld) Electronic Differential [facility] Eosinophils (Bld) [#/Vol] 0.10 10*3/uL 0.00 - 0.48 K/uL [facility] Eosinophils/100 WBC (Bld) 1.2 % [facility] Erythrocyte distribution width (RBC) [Ratio] 14.2 % 10.9 - 14.3 % [facility] Comment on above: This is an appended report. These results have been appended to a previously preliminary verified report. Hematocrit (Bld) [Volume fraction] 24.2 % Low 39.6 - 48.8 % [facility] Comment on above: This is an appended report. These results have been appended to a previously preliminary verified report. Hemoglobin (Bld) [Mass/Vol] 7.9 g/dL Low 13.4 - 16.8 g/dL [facility] Comment on above: This is an appended report. These results have been appended to a previously preliminary verified report. Immature granulocytes (Bld) [#/Vol] 0.08 10*3/uL High NINF - 0.07 K/uL [facility] Immature granulocytes/100 WBC (Bld) 1.0 % [facility] Interpretation and review of laboratory results Abnormal [facility] Lymphocytes (Bld) [#/Vol] 0.61 10*3/uL Low 0.83 - 3.57 K/uL [facility] Lymphocytes/100 WBC (Bld) 7.5 % [facility] MCH (RBC) [Entitic mass] 30.9 pg 26.1 - 33.3 pg [facility] Comment on above: This is an appended report. These results have been appended to a previously preliminary verified report. MCHC (RBC) [Mass/Vol] 32.6 g/dL 31.9 - 36.5 g/dL [facility] Comment on above: This is an appended report. These results have been appended to a previously preliminary verified report. MCV (RBC) [Entitic vol] 94.5 fL 79.0 - 94.5 fL [facility] Comment on above: This is an appended report. These results have been appended to a previously preliminary verified report. Monocytes (Bld) [#/Vol] 1.12 10*3/uL High 0.24 - 0.93 K/uL [facility] Monocytes/100 WBC (Bld) 13.8 % [facility] Neutrophils (Bld) [#/Vol] 6.15 10*3/uL 1.57 - 6.19 K/uL [facility] Nucleated RBC/100 WBC (Bld) [Ratio] 0.0 % NINF [facility] Platelet mean volume (Bld) [Entitic vol] [facility] Comment on above: Not measured Platelets (Bld) [#/Vol] 368 10*3/uL High 146 - 337 K/uL [facility] Comment on above: This is an appended report. These results have been appended to a previously preliminary verified report. RBC (Bld) [#/Vol] 2.56 10*6/uL Low [facility] Comment on above: This is an appended report. These results have been appended to a previously preliminary verified report. Segmented neutrophils/100 WBC (Bld) 75.9 % [facility] WBC (Bld) [#/Vol] 8.11 10*3/uL 3.73 - 10.10 K/uL [facility] Comment on above: This is an appended report. These results have been appended to a previously preliminary verified report. [facility] Basophils (Bld) [#/Vol] 0.05 10*3/uL Normal 0.00-0.09 [facility] Comment on above: Performed By: #### Zamzam RAMIREZ UCRER #### [facility] (DEFAULT) [address] [place] [address] Basophils/100 WBC (Bld) 0.6 % Normal O [facility] Comment on above: Performed By: #### Zamzam LYWILLIS UCRER #### [facility] (DEFAULT) [address] [place] [address] DIFF STATUS Electronic Differential Normal [facility] Comment on above: Performed By: #### U LYWILLIS UCRER #### [facility] (DEFAULT) [address] [address] Eosinophils (Bld) [#/Vol] 0.10 10*3/uL Normal 0.00-0.48 [facility] Comment on above: Performed By: #### U LYWILLIS UCRER #### [facility] (DEFAULT) [address] [address] Eosinophils/100 WBC (Bld) 1.2 % Normal [facility] Comment on above: Performed By: #### U LYTR, UCRER #### [facility] (DEFAULT) [address] [address] Hematocrit (Bld) [Volume fraction] 24.2 % Low 39.6-48.8 [facility] Comment on above: Result Comment: This is an appended report. These results have been appended to a previously preliminary verified report. Performed By: #### U LYTR, UCRER #### [facility] (DEFAULT) [address] [address] Hemoglobin (Bld) [Mass/Vol] 7.9 g/dL Low 13.4-16.8 [facility] Comment on above: Result Comment: This is an appended report. These results have been appended to a previously preliminary verified report. Performed By: #### U LYTR, UCRER #### [facility] (DEFAULT) [address] [place] [address] Immature Grans % 1.0 % Normal [facility] Comment on above: Performed By: #### U LYTR, UCRER #### [facility] (DEFAULT) [address] [address] Immature Grans Absolute 0.08 K/uL High <=0.07 O [facility] Comment on above: Performed By: #### U LYTR, UCRER #### U [facility] (DEFAULT) [address] [place] [address] Lymphocytes (Bld) [#/Vol] 0.61 10*3/uL Low 0.83-3.57 [facility] Comment on above: Performed By: #### U LYTR, UCRER #### [facility] (DEFAULT) [address] [address] Lymphocytes/100 WBC (Bld) 7.5 % Normal [facility] Comment on above: Performed By: #### U LYTR, UCRER #### [facility] (DEFAULT) [address] [address] MCV (RBC) [Entitic vol] 94.5 fL Normal 79.0-94.5 O [facility] Comment on above: Result Comment: This is an appended report. These results have been appended to a previously preliminary verified report. Performed By: #### U LYTR, UCRER #### [facility] (DEFAULT) [address] [place] [address] Mean Cell Hgb 30.9 pg Normal 26.1-33.3 [facility] Comment on above: Result Comment: This is an appended report. These results have been appended to a previously preliminary verified report. Performed By: #### U LYTR, UCRER #### [facility] (DEFAULT) [address] [address] Mean Cell Hgb Conc 32.6 g/dL Normal 31.9-36.5 [facility] Comment on above: Result Comment: This is an appended report. These results have been appended to a previously preliminary verified report. Performed By: #### U LYTR, UCRER #### [facility] (DEFAULT) [address] [address] Mean Platelet Volume Normal [facility] Comment on above: Result Comment: Not measured Performed By: #### U LYTR, UCRER #### U [facility] (DEFAULT) [address] [address] Monocytes (Bld) [#/Vol] 1.12 10*3/uL High 0.24-0.93 [facility] Comment on above: Performed By: #### U LYTR, UCRER #### U [facility] (DEFAULT) [address] [address] Monocytes/100 WBC (Bld) 13.8 % Normal O [facility] Comment on above: Performed By: #### U LYTR, UCRER #### [facility] (DEFAULT) [address] [address] Nucleated RBC 0.0 /100 WBC Normal <=0.2 [facility] Comment on above: Performed By: #### U LYTR UCRER #### [facility] (DEFAULT) [address] [address] Platelets (Bld) [#/Vol] 368 10*3/uL High 146-337 [facility] Comment on above: Result Comment: This is an appended report. These results have been appended to a previously preliminary verified report. Performed By: #### Zamzam LYWILLIS UCRER #### [facility] (DEFAULT) [address] [address] RBC (Bld) [#/Vol] 2.56 10*6/uL Low 4.38-5.83 [facility] Comment on above: Result Comment: This is an appended report. These results have been appended to a previously preliminary verified report. Performed By: #### U LYWILLIS UCRER #### [facility] (DEFAULT) [address] [address] RBC Distribution 14.2 % Normal 10.9-14.3 [facility] Comment on above: Result Comment: This is an appended report. These results have been appended to a previously preliminary verified report. Performed By: #### U LYWILLIS UCRER #### [facility] (DEFAULT) [address] [address] Segs + Bands Auto 75.9 % Normal [facility] Comment on above: Performed By: #### U LYTR UCRER #### U [facility] (DEFAULT) [address] [address] Segs + Bands,Absolute Auto 6.15 K/uL Normal 1.57-6.19 [facility] Comment on above: Performed By: #### U LYTR UCRER #### [facility] (DEFAULT) [address] [place] [address] WBC (Bld) [#/Vol] 8.11 10*3/uL Normal 3.73-10.10 [facility] Comment on above: Result Comment: This is an appended report. These results have been appended to a previously preliminary verified report. Performed By: #### U LYTR, UCRER #### [facility] (DEFAULT) [address] [place] [address] CHEM 7 (LYTES,BUN,CREA,GLUC) Ordered By: Peter Aragon on 06-12-2025 Anion gap [Moles/Vol] 14 mmol/L 7 - 17 mmol/L [facility] Chloride [Moles/Vol] 101 mmol/L 98 - 10 8 mmol/L [facility] CO2 [Moles/Vol] 25 mmol/L 21 - 31 mmol/L [facility] Creatinine [Mass/Vol] 1.14 mg/dL 0.70 - 1.30 mg/dL [facility] eGFR, CKD-EPI, Male 64 - PINF [facility] Comment on above: Reported eGFR is bas ed on the CKD-EPI 2020 equation using creatinine, age, and sex. Glucose [Mass/Vol] 83 mg/dL 70 - 179 mg/dL [facility] Interpretation and review of laboratory results Abnormal [facility] Osmolality Calc [Osmolality] 287 [facility] Potassium [Moles/Vol] 5.5 mmol/L High 3.5 - 5.0 mmol/L [facility] Comment on above: Specimen moderately hemolyzed. Potassium results may be falsey elevated by more than 0.8 mmol/L. Consider recollection. Sodium [Moles/Vol] 134 mmol/L Low 135 - 145 mmol/L [facility] Urea nitrogen [Mass/Vol] 24 mg/dL 7 - 25 mg/dL [facility] Urea nitrogen/Creatinine [Mass ratio] 21 [facility] 7 (LYTES,BUN,CREA,GLUC) on 06-12-2025 Anion gap [Moles/Vol] 14 mmol/L Normal 7-17 [facility] Comment on above: Performed By: #### S URGP #### [facility] (DEFAULT) [address] [place] [address] Chloride [Moles/Vol] 101 mmol/L Normal 98-108 [facility] Comment on above: Performed By: #### S URGP #### [facility] (DEFAULT) [address] [place] [address] CO2 [Moles/Vol] 25 mmol/L Normal 21-31 [facility] Comment on above: Performed By: #### S URGP #### [facility] (DEFAULT) [address] [place] [address] Creatinine [Mass/Vol] 1.14 mg/dL Normal 0.70-1.30 [facility] Comment on above: Performed By: #### S URGP #### [facility] (DEFAULT) [address] [place] [address] GFR/1.73 sq M.predicted among non-blacks MDRD (S/P/Bld) [Vol rate/Area] 62 mL/min/{1.73_m2} Normal >=60 [facility] Comment on above: Result Comment: Repo rted eGFR is based on the CKD-EPI 2020 equation using creatinine, age, and sex. Performed By: #### S URGP #### U [facility] (DEFAULT) [address] [place] [address] Glucose [Mass/Vol] 83 mg/dL Normal Nonfastin -179 mg/dL; Fastin-99 [facility] [facility] Comment on above: Performed By: #### S URGP #### [facility] (DEFAULT) [address] [place] [address] 25926 Osmolality [Osmolality] 287 mosm/kg Normal 278-305 [facility] Comment on above: Performed By: #### S URGP #### [facility] (DEFAULT) [address] [place] [address] 59301 Potassium [Moles/Vol] 5.5 mmol/L High 3.5-5.0 [facility] Comment on above: Result Comment: Spec imen moderately hemolyzed. Potassium results may be falsey elevated by more than 0.8 mmol/L. Consider recollection. Performed By: #### S URGP #### [facility] (DEFAULT) [address] [place] [address] 72061 Sodium [Moles/Vol] 134 mmol/L Low 135-145 [facility] Comment on above: Performed By: #### S URGP #### [facility] (DEFAULT) [address] [place] [address] 24914 Urea nitrogen [Mass/Vol] 24 mg/dL Normal 7-25 [facility] Comment on above: Performed By: #### S URGP #### [facility] (DEFAULT) [address] [place] [address] 25680 Urea nitrogen/Creatinine [Mass ratio] 21 mg/mg Normal [facility] Comment on above: Performed By: #### S URGP #### [facility] (DEFAULT) [address] [place] [address] 83096 CREATININE,RANDOM URINEon Creatinine (U) [Mass/Vol] 98.39 mg/dL [facility] Creatinine (U) [Mass/Vol] 98.39 mg/dL Normal [facility] Comment on above: Order Comment: The r eference range has not been established for random urine specimens. The test result should be integrated into the clinical context for interpretation. Performed By: #### U LYTR, UCRER #### [facility] (DEFAULT) [address] [place] [address] 76200 ECHOCARDIOGRAMon 06-12-2025 Echocardiography Normal LV size with mild global systolic dysfunction, Biplane EF = 45%. Abnormal diastolic function. Normal RV size and systolic function. Device wire visualized in the RA/RV. 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 The valve appears well-seated. Mean gradient 7mmHg (HR 61bpm). Trivial to mild regurgitation. Mild tricuspid regurgitation. Estimated RVSP 65mmHg. Estimated mPAP 39mmHg, estimated PADP 22mmHg. 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 Table formatting from the original result was not included. Images from the original result were not included. [facility] Facility [facility] Patient Information Patient Name Sebastian Hannon Legal Sex Male Indication for Exam Priority: Urgent Dx: ELIZABETH (dyspnea on exertion) [R06.09 (ICD-10-CM)] Order Question Reason for Exam ELIZABETH, h/o CHF Interpretation Summary Result History is available. Normal LV size with mild global systolic dysfunction, Biplane EF = 45%. Abnormal diastolic function. Normal RV size and systolic function. Device wire visualized in the RA/RV. 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 The valve appears well-seated. Mean gradient 7mmHg (HR 61bpm). Trivial to mild regurgitation. Mild tricuspid regurgitation. Estimated RVSP 65mmHg. Estimated mPAP 39mmHg, estimated PADP 22mmHg. 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 Findings Left Ventricle Chamber size is normal. Increased wall thickness. Concentric remodeling is present. Normal global systolic function. Regional wall motion is normal. The ejection fraction is 45%. Ejection fraction is normal. Diastolic function is normal. Right Ventricle Chamber size is normal. Systolic function is normal. Device wire is present. Estimated right ventricular systolic pressure is 65 mmHg. Left Atrium Chamber size is severely enlarged. Right Atrium Chamber size is normal. A device wire is present. Septum The atrial septum is normal. Mitral Valve Bioprosthetic valve. The prosthetic valve is normal. Mild regurgitation. No valve stenosis. Mean gradient is 7 mmHg. Aortic Valve Trileaflet valve. Leaflet mobility is normal. No regurgitation. No stenosis. Tricuspid Valve Normal leaflets. Leaflet mobility is normal. Mild regurgitation. No stenosis. Estimated right ventricular systolic pressure is 65 mmHg. Pulmonic Valve Trace regurgitation. No stenosis. Aorta Sinuses of Valsalva/aortic root is mildly enlarged. Ascending aorta is mildly enlarged. SOV: 4.09 cm. STJ: 2.78 cm. Ascendin.83 cm. Pericardium No pericardial effusion. IVC/SVC The inferior vena cava is enlarged. The inferior vena cava structure is normal. The diameter is >21 mm and decreases <50% during inspiration. Reading Providers Reading Role Read Date Nisa Quinonez MD Echo Shelby 06/12/2025 Wall Scoring Score Index: 2.00 The following segments are hypokinetic: basal anterior, basal inferoseptal, basal inferior, basal anterolateral, mid anterior, mid inferoseptal, mid inferior, mid anterolateral, apical anterior, apical septal, apical inferior, apical lateral and apex. Other segments could not be evaluated. Left Heart Measurements LV - Systole LVIDD 4.65 cm IVS 1.06 cm LVIDS 3.38 cm PW 1.16 cm LV RWT 0.5 LV Mass Index 100.9 g/m2 LV EDV BP 128 mL LV ESV BP 71 mL BP EF 45 % LV stroke volume BP (ml) 57 mL LV stroke volume index BP 30.81 mL/m2 LV - Diastole MV pk E carlitos 2.04 m/s e' septal pk carlitos 0.06 m/s e' lateral pk carlitos 0.08 m/s Avg e' pk carlitos 0.07 m/s E/e' septal ratio 32.23 E/e' lateral ratio 24.76 Avg E/e' ratio 28.49 LV - HCM AV LVOT peak gradient 2 mmHg Left Atrium LA ESV SP 4CH (MOD) 117 mL LA ESV SP 2CH (MOD) 141 mL LA ESV BP (MOD) index 76 mL/m2 Right Heart Measurements RV - 2D RV basal diam 3.82 cm RV mid diam 3.3 cm RV long diam 7.86 cm RV Area diastolic 23.4 cm2 RV Area systolic 17.5 cm2 RV Fractional area change 25.2 % RV - Doppler TAPSE 0.82 cm RV S' 6.8 cm/s Right Atrium RA vol index 4CH (MOD) 29.19 mL/m2 EST RAP 15 mmHg RA area 4CH (MOD) 21.51 cm2 Great Vessels Aortic Root - End Diastolic Sinus 4.09 cm STJ 2.78 cm Ascending aorta 3.83 cm Inferior Vena Cava IVC ostium 2.42 cm Doppler Measurements - Aortic Valve Stenosis LVOT diameter 2.05 cm LVOT area 3.3 cm2 LVOT peak carlitos 0.75 m/s LVOT peak VTI 16.83 cm Stroke Volume 56 cm/mL Stroke volume index 30 Ao peak carlitos 0.88 m/s Ao VTI 21.97 cm AV peak gradient 3 mmHG AV mean gradient 2 mmHg DI (VTI) 0.77 m/2 DI (Vmax) 0.85 NEWTON (continuity Vmax) 2.81 cm2 NEWTON index (continuity Vmax) 1.52 m/s NEWTON (continu (more content not included)... Normal [facility] LYTES (NA, K, CL) - URINE - RANDOMon 06-12-2025 Chloride (24H U) [Moles/Vol] 36 mmol/L [facility] Potassium (24H U) [Moles/Vol] 29.2 mmol/L [facility] Sodium (24H U) [Moles/Vol] 34 mmol/L [facility] Sodium (U) [Moles/Vol] 34 mmol/L Normal [facility] Comment on above: Order Comment: The r eference range has not been established for random urine specimens. The test result should be integrated into the clinical context for interpretation. Performed By: #### U LYTR, UCRER #### [facility] (DEFAULT) [address] [address] Urine Chloride 36 mmol/L Normal [facility] Comment on above: Order Comment: The r eference range has not been established for random urine specimens. The test result should be integrated into the clinical context for interpretation. Performed By: #### U LYTR, UCRER #### [facility] (DEFAULT) [address] [place] [address] 66344 Urine Potassium 29.2 mmol/L Normal [facility] Comment on above: Order Comment: The r eference range has not been established for random urine specimens. The test result should be integrated into the clinical context for interpretation. Performed By: #### U LYTR, UCRER #### [facility] (DEFAULT) [address] [place] [address] 16462 MAGNESIUMon 06-12-2025 Magnesium [Mass/Vol] 2.2 mg/dL 1.6 - 2 .6 mg/dL [facility] Magnesium [Mass/Vol] 2.2 mg/dL Normal 1.6-2.6 [facility] Comment on above: Performed By: #### S URGP #### [facility] (DEFAULT) [address] [place] [address] 32385 No Panel Informationon 06-12 The reference range has not been established for random urine specimens. The test result should be integrated into the clinical context for interpretation. [facility] Interpretation and review of laboratory results Normal [facility] OSMOLALITY, URINEon 06-12-20 Interpretation and review of laboratory results Normal [facility] Osmolality (U) [Osmolality] 367 mosm/kg [facility] Osmolality, Urine 367 mOsm/kg Normal 300-900 [facility] Comment on above: Performed By: #### C A, CHM7, IPB, T3RIA, MGO #### [facility] (DEFAULT) [address] [place] [address] 88956 PHOSPHATE, INORGANICon 06-12 Phosphate [Mass/Vol] 3.3 mg/dL 2.2 - 4 .6 mg/dL [facility] Phosphorous 3.3 mg/dL Normal 2.2-4.6 [facility] Comment on above: Performed By: #### S URGP #### [facility] (DEFAULT) [address] [place] [address] 06623 POTASSIUMOrdered By: Daniela valencia on 06-12-2025 Interpretation and review of laboratory results Normal [facility] Potassium [Moles/Vol] 4.0 mmol/L 3.5 - 5.0 mmol/L [facility] POTASSIUMon 06-12-2025 Potassium [Moles/Vol] 4.0 mmol/L Normal 3.5-5.0 [facility] Comment on above: Performed By: #### C A, CHM7, IPB, T3RIA, MGO #### [facility] (DEFAULT) [address] [address] PROTIME-INRon 06-12-2025 INR Coag (Bld) [Relative time] 3.9 {INR} High 0.9 - 1.1 [facility] Interpretation and review of laboratory results Abnormal [facility] PT Coag (PPP) [Time] 38.4 s High [facility] INR Coag (PPP) [Relative time] 3.9 {INR} High 0.9-1.1 [facility] Comment on above: Order Comment: Ongoi ng: Daily until INR is therapeutic for 2 consecutive days, then every 2 days for 14 days or until discharged. Performed By: #### P TI #### [facility] (DEFAULT) [address] [address] PT Coag (PPP) [Time] 38.4 s High 11.9-14.2 [facility] Comment on above: Order Comment: Ongoi ng: Daily until INR is therapeutic for 2 consecutive days, then every 2 days for 14 days or until discharged. Performed By: #### P TI #### [facility] (DEFAULT) [address] [place] [address] 08900 THYROID-STIMULATING IMMUNOGL OBULINon 06-12-2025 THYROID-STIMULATING IMMUNOGLOBULIN <1.0 Normal <=1.3 [facility] Comment on above: Result Comment: Test Performed by: [facility] [address] [place] [address] Planning Assistant: Sha Graham Ph.D.; CLIA# [id number] Performed By: #### U LYWILLIS, UCRER #### [facility] (DEFAULT) [address] [address] THYROTROPIN RECEPTOR ANTIBOD Yon 06-12-2025 THYROTROPIN RECEPTOR AB <1.10 Normal 0.00-1.75 O [facility] Comment on above: Result Comment: ADDITIONAL INFORMATION At a decision limit of 1.75 IU/L, this assay has 97% sensitivity and 99% specificity for detection of Graves' disease. In healthy individuals and in patients with thyroid disease without diagnosis of Graves' disease, the upper limit of anti-TSHR values are 1.22 IU/L and 1.58 IU/L, respectively (97.5th percentiles). Test Performed by: [facility] [address] [id number] Planning Assistant: Sha Graham Ph.D.; CLIA# [id number] Performed By: #### Y TRAB #### [facility] (DEFAULT) [address] [place] [address] CALCIUMon 06-11-2025 Calcium [Mass/Vol] 9.1 mg/dL 8.6 - 10. 5 mg/dL [facility] Calcium [Mass/Vol] 9.1 mg/dL Normal 8.6-10.5 [facility] Comment on above: Performed By: #### C A, CHM7, IPB, T3RIA, MGO #### [facility] (DEFAULT) [address] [place] [address] CBC AND ELECTRONIC DIFFon Basophils (Bld) [#/Vol] K/uL 0.00 - 0.09 K/uL [facility] Basophils/100 WBC (Bld) 0.5 % O [facility] Differential cell count method Nom (Bld) Electronic Differential [facility] Eosinophils (Bld) [#/Vol] 0.06 10*3/uL 0.00 - 0.48 K/uL [facility] Eosinophils/100 WBC (Bld) 1.0 % [facility] Erythrocyte distribution width (RBC) [Ratio] 13.7 % 10.9 - 14.3 % [facility] Hematocrit (Bld) [Volume fraction] 24.2 % Low 39.6 - 48.8 % [facility] Hemoglobin (Bld) [Mass/Vol] 7.7 g/dL Low 13.4 - 16.8 g/dL [facility] Immature granulocytes (Bld) [#/Vol] K/uL NINF - 0.07 K/uL [facility] Immature granulocytes/100 WBC (Bld) 0.5 % [facility] Interpretation and review of laboratory results Abnormal [facility] Lymphocytes (Bld) [#/Vol] 0.34 10*3/uL Low 0.83 - 3.57 K/uL [facility] Lymphocytes/100 WBC (Bld) 5.5 % [facility] MCH (RBC) [Entitic mass] 29.8 pg 26.1 - 33.3 pg [facility] MCHC (RBC) [Mass/Vol] 31.8 g/dL Low 31.9 - 36.5 g/dL [facility] MCV (RBC) [Entitic vol] 93.8 fL 79.0 - 94.5 fL [facility] Monocytes (Bld) [#/Vol] 0.77 10*3/uL 0.24 - 0.93 K/uL [facility] Monocytes/100 WBC (Bld) 12.4 % [facility] Neutrophils (Bld) [#/Vol] 4.99 10*3/uL 1.57 - 6.19 K/uL [facility] Nucleated RBC/100 WBC (Bld) [Ratio] 0.0 % [facility] Platelet mean volume (Bld) [Entitic vol] 10.2 fL 8.7 - 12.3 fL [facility] Platelets (Bld) [#/Vol] 183 10*3/uL 146 - 337 K/uL [facility] RBC (Bld) [#/Vol] 2.58 10*6/uL Low [facility] Segmented neutrophils/100 WBC (Bld) 80.1 % [facility] WBC (Bld) [#/Vol] 6.22 10*3/uL 3.73 - 10.10 K/uL [facility] Abs Baso Auto < Normal 0.00-0.09 [facility] Comment on above: Performed By: #### C A, CHM7, IPB, T3RIA, MGO #### [facility] (DEFAULT) [address] [place] [address] 99081 Basophils/100 WBC (Bld) 0.5 % Normal O [facility] Comment on above: Performed By: #### C A, CHM7, IPB, T3RIA, MGO #### [facility] (DEFAULT) [address] [place] [address] 90335 DIFF STATUS Electronic Differential Normal [facility] Comment on above: Performed By: #### C A, CHM7, IPB, T3RIA, MGO #### [facility] (DEFAULT) [address] [place] [address] 29700 Eosinophils (Bld) [#/Vol] 0.06 10*3/uL Normal 0.00-0.48 [facility] Comment on above: Performed By: #### C A, CHM7, IPB, T3RIA, MGO #### [facility] (DEFAULT) [address] [place] [address] 41914 Eosinophils/100 WBC (Bld) 1.0 % Normal [facility] Comment on above: Performed By: #### C A, CHM7, IPB, T3RIA, MGO #### [facility] (DEFAULT) [address] [place] [address] 10678 Hematocrit (Bld) [Volume fraction] 24.2 % Low 39.6-48.8 [facility] Comment on above: Performed By: #### C A, CHM7, IPB, T3RIA, MGO #### [facility] (DEFAULT) [address] [place] [address] 14356 Hemoglobin (Bld) [Mass/Vol] 7.7 g/dL Low 13.4-16.8 [facility] Comment on above: Performed By: #### C A, CHM7, IPB, T3RIA, MGO #### [facility] (DEFAULT) [address] [place] [address] 43775 Immature Grans % 0.5 % Normal [facility] Comment on above: Performed By: #### C A, CHM7, IPB, T3RIA, MGO #### [facility] (DEFAULT) [address] [place] [address] 39220 Immature Grans Absolute < Normal <=0.07 O [facility] Comment on above: Performed By: #### C A, CHM7, IPB, T3RIA, MGO #### [facility] (DEFAULT) [address] [place] [address] 75701 Lymphocytes (Bld) [#/Vol] 0.34 10*3/uL Low 0.83-3.57 [facility] Comment on above: Performed By: #### C A, CHM7, IPB, T3RIA, MGO #### [facility] (DEFAULT) [address] [place] [address] 47732 Lymphocytes/100 WBC (Bld) 5.5 % Normal [facility] Comment on above: Performed By: #### C A, CHM7, IPB, T3RIA, MGO #### [facility] (DEFAULT) [address] [place] [address] 44684 MCV (RBC) [Entitic vol] 93.8 fL Normal 79.0-94.5 O [facility] Comment on above: Performed By: #### C A, CHM7, IPB, T3RIA, MGO #### [facility] (DEFAULT) [address] [place] [address] 99793 Mean Cell Hgb 29.8 pg Normal 26.1-33.3 [facility] Comment on above: Performed By: #### C A, CHM7, IPB, T3RIA, MGO #### [facility] (DEFAULT) [address] [place] [address] 14042 Mean Cell Hgb Conc 31.8 g/dL Low 31.9-36.5 [facility] Comment on above: Performed By: #### C A, CHM7, IPB, T3RIA, MGO #### [facility] (DEFAULT) [address] [place] [address] 09921 Monocytes (Bld) [#/Vol] 0.77 10*3/uL Normal 0.24-0.93 [facility] Comment on above: Performed By: #### C A, CHM7, IPB, T3RIA, MGO #### [facility] (DEFAULT) [address] [place] [address] 56829 Monocytes/100 WBC (Bld) 12.4 % Normal O [facility] Comment on above: Performed By: #### C A, CHM7, IPB, T3RIA, MGO #### [facility] (DEFAULT) [address] [place] [address] 40008 Nucleated RBC 0.0 /100 WBC Normal <=0.2 [facility] Comment on above: Performed By: #### C A, CHM7, IPB, T3RIA, MGO #### [facility] (DEFAULT) [address] [place] [address] 67741 Platelet mean volume (Bld) [Entitic vol] 10.2 fL Normal 8.7-12.3 [facility] Comment on above: Performed By: #### C A, CHM7, IPB, T3RIA, MGO #### [facility] (DEFAULT) [address] [place] [address] 39108 Platelets (Bld) [#/Vol] 183 10*3/uL Normal 146-337 [facility] Comment on above: Performed By: #### C A, CHM7, IPB, T3RIA, MGO #### [facility] (DEFAULT) [address] [place] [address] 44956 RBC (Bld) [#/Vol] 2.58 10*6/uL Low 4.38-5.83 [facility] Comment on above: Performed By: #### C A, CHM7, IPB, T3RIA, MGO #### [facility] (DEFAULT) [address] [place] [address] 80741 RBC Distribution 13.7 % Normal 10.9-14.3 [facility] Comment on above: Performed By: #### C A, CHM7, IPB, T3RIA, MGO #### [facility] (DEFAULT) [address] [place] [address] 28473 Segs + Bands Auto 80.1 % Normal [facility] Comment on above: Performed By: #### C A, CHM7, IPB, T3RIA, MGO #### [facility] (DEFAULT) [address] [place] [address] 33446 Segs + Bands,Absolute Auto 4.99 K/uL Normal 1.57-6.19 [facility] Comment on above: Performed By: #### C A, CHM7, IPB, T3RIA, MGO #### [facility] (DEFAULT) [address] [place] [address] 10770 WBC (Bld) [#/Vol] 6.22 10*3/uL Normal 3.73-10.10 [facility] Comment on above: Performed By: #### C A, CHM7, IPB, T3RIA, MGO #### [facility] (DEFAULT) [address] [place] [address] 6[address]14 CHEM 7 (LYTES,BUN,CREA,GLUC) on 06-11-2025 Anion gap [Moles/Vol] 13 mmol/L 7 - 17 mmol/L [facility] Chloride [Moles/Vol] 101 mmol/L 98 - 10 8 mmol/L [facility] CO2 [Moles/Vol] 27 mmol/L 21 - 31 mmol/L [facility] Creatinine [Mass/Vol] 1.12 mg/dL 0.70 - 1.30 mg/dL [facility] e[facility], CKD-EPI, Male 66 - PINF [facility] Comment on above: Reported eGFR is bas ed on the CKD-EPI 2020 equation using creatinine, age, and sex. Glucose [Mass/Vol] 91 mg/dL 70 - 179 mg/dL [facility] Osmolality Calc [Osmolality] 290 [facility] Potassium [Moles/Vol] 3.6 mmol/L 3.5 - 5.0 mmol/L [facility] Sodium [Moles/Vol] 137 mmol/L 135 - 145 mmol/L [facility] Urea nitrogen [Mass/Vol] 23 mg/dL 7 - 25 mg/dL [facility] Urea nitrogen/Creatinine [Mass ratio] 21 mg/mg [facility] Anion gap [Moles/Vol] 13 mmol/L Normal 7-17 [facility] Comment on above: Performed By: #### C Kelly, CHM7, IPB, T3RIA, MGO #### [facility] (DEFAULT) [address] [place] [address]1802 Chloride [Moles/Vol] 101 mmol/L Normal 98-108 [facility] Comment on above: Performed By: #### C Kelly, CHM7, IPB, T3RIA, MGO #### [facility] (DEFAULT) [address] [place] [address]695 CO2 [Moles/Vol] 27 mmol/L Normal 21-31 [facility] Comment on above: Performed By: #### C A, CHM7, IPB, T3RIA, MGO #### [facility] (DEFAULT) [address] [place] [address] 34514 Creatinine [Mass/Vol] 1.12 mg/dL Normal 0.70-1.30 [facility] Comment on above: Performed By: #### C A, CHM7, IPB, T3RIA, MGO #### [facility] (DEFAULT) [address] [place] [address] 39349 GFR/1.73 sq M.predicted among non-blacks MDRD (S/P/Bld) [Vol rate/Area] 64 mL/min/{1.73_m2} Normal >=60 [facility] Comment on above: Result Comment: Repo rted eGFR is based on the CKD-EPI 2020 equation using creatinine, age, and sex. Performed By: #### C A, CHM7, IPB, T3RIA, MGO #### [facility] (DEFAULT) [address] [place] [address]608 Glucose [Mass/Vol] 91 mg/dL Normal Nonfastin -179 mg/dL; Fastin-99 [facility] Comment on above: Performed By: #### C A, CHM7, IPB, T3RIA, MGO #### [facility] (DEFAULT) [address] [place] [address] 01804 Osmolality [Osmolality] 290 mosm/kg Normal 278-305 [facility] Comment on above: Performed By: #### C A, CHM7, IPB, T3RIA, MGO #### [facility] (DEFAULT) [address] [place] [address] 06190 Potassium [Moles/Vol] 3.6 mmol/L Normal 3.5-5.0 [facility] Comment on above: Performed By: #### C A, CHM7, IPB, T3RIA, MGO #### [facility] (DEFAULT) [address] [place] [address] 33355 Sodium [Moles/Vol] 137 mmol/L Normal 135-145 [facility] Comment on above: Performed By: #### C A, CHM7, IPB, T3RIA, MGO #### [facility] (DEFAULT) [address] [place] [address] 64842 Urea nitrogen [Mass/Vol] 23 mg/dL Normal 7-25 [facility] Comment on above: Performed By: #### C A, CHM7, IPB, T3RIA, MGO #### [facility] (DEFAULT) [address] [place] [address] 21119 Urea nitrogen/Creatinine [Mass ratio] 21 mg/mg Normal [facility] Comment on above: Performed By: #### GERMAIN Valencia, IPB, T3RIA, MGO #### [facility] (DEFAULT) [address] [place] [address]858 MAGNESIUMon 06-11-2025 Magnesium [Mass/Vol] 1.6 mg/dL 1.6 - 2 .6 mg/dL [facility] Magnesium [Mass/Vol] 1.6 mg/dL Normal 1.6-2.6 [facility] Comment on above: Performed By: #### GERMAIN Valencia, ORESTES, T3RIA, MGO #### [facility] (DEFAULT) [address] [place] [address]1446 No Panel Informationon 06-11 Interpretation and review of laboratory results Normal [facility] PHOSPHATE, INORGANICon 06-11 Phosphate [Mass/Vol] 3.1 mg/dL 2.2 - 4 .6 mg/dL [facility] Phosphorous 3.1 mg/dL Normal 2.2-4.6 [facility] Comment on above: Performed By: #### Antoine Mendoza, GERMAIN, IPB, T3RIA, MGO #### [facility] (DEFAULT) [address] [place] [address]10 PROTIME-INRon 06-11-2025 INR Coag (Bld) [Relative time] 3.9 {INR} High 0.9 - 1.1 [facility] Interpretation and review of laboratory results Abnormal [facility] PT Coag (PPP) [Time] 38.8 s High [facility] INR Coag (PPP) [Relative time] 3.9 {INR} High 0.9-1.1 [facility] Comment on above: Order Comment: The r eference range has not been established for random urine specimens. The test result should be integrated into the clinical context for interpretation. Performed By: #### U LYTR, UCRER #### [facility] (DEFAULT) [address] [place] [address] 68372 PT Coag (PPP) [Time] 38.8 s High 11.9-14.2 [facility] Comment on above: Order Comment: The r eference range has not been established for random urine specimens. The test result should be integrated into the clinical context for interpretation. Performed By: #### U JAMES UCRER #### [facility] (DEFAULT) [address] [place] [address] 13712 CALCIUMon 06-10-2025 Calcium [Mass/Vol] 9.4 mg/dL 8.6 - 10. 5 mg/dL [facility] Calcium [Mass/Vol] 9.4 mg/dL Normal 8.6-10.5 [facility] [place] Comment on above: Performed By: #### C A, CHM7, IPB, T3RIA, MGO #### [facility] (DEFAULT) [address] [place] [address] 51753 CBC AND ELECTRONIC DIFFon Basophils (Bld) [#/Vol] K/uL 0.00 - 0.09 K/uL [facility] Basophils/100 WBC (Bld) 0.4 % [facility] Differential cell count method Nom (Bld) Electronic Differential [facility] Eosinophils (Bld) [#/Vol] K/uL 0.00 - 0.48 K/uL [facility] Eosinophils/100 WBC (Bld) 0.5 % [facility] Erythrocyte distribution width (RBC) [Ratio] 13.8 % 10.9 - 14.3 % [facility] Hematocrit (Bld) [Volume fraction] 24.4 % Low 39.6 - 48.8 % [facility] Hemoglobin (Bld) [Mass/Vol] 7.9 g/dL Low 13.4 - 16.8 g/dL [facility] Immature granulocytes (Bld) [#/Vol] K/uL NINF - 0.07 K/uL [facility] Immature granulocytes/100 WBC (Bld) 0.5 % [facility] Interpretation and review of laboratory results Abnormal [facility] Lymphocytes (Bld) [#/Vol] 0.39 10*3/uL Low 0.83 - 3.57 K/uL [facility] Lymphocytes/100 WBC (Bld) 7.0 % [facility] MCH (RBC) [Entitic mass] 30.2 pg 26.1 - 33.3 pg [facility] MCHC (RBC) [Mass/Vol] 32.4 g/dL 31.9 - 36.5 g/dL [facility] MCV (RBC) [Entitic vol] 93.1 fL 79.0 - 94.5 fL [facility] Monocytes (Bld) [#/Vol] 0.62 10*3/uL 0.24 - 0.93 K/uL [facility] Monocytes/100 WBC (Bld) 11.1 % [facility] Neutrophils (Bld) [#/Vol] 4.48 10*3/uL 1.57 - 6.19 K/uL [facility] Nucleated RBC/100 WBC (Bld) [Ratio] 0.0 % [facility] Platelet mean volume (Bld) [Entitic vol] 10.0 fL 8.7 - 12.3 fL [facility] Platelets (Bld) [#/Vol] 169 10*3/uL 146 - 337 K/uL [facility] RBC (Bld) [#/Vol] 2.62 10*6/uL Low [facility] Segmented neutrophils/100 WBC (Bld) 80.5 % [facility] WBC (Bld) [#/Vol] 5.57 10*3/uL 3.73 - 10.10 K/uL [facility] Abs Baso Auto < Normal 0.00-0.09 [facility] Comment on above: Performed By: #### C A, CHM7, IPB, T3RIA, MGO #### [facility] (DEFAULT) [address] [place] [address] 04647 Abs Eos Auto < Normal 0.00-0.48 [facility] Comment on above: Performed By: #### C Kelly, CHM7, IPB, T3RIA, MGO #### [facility] (DEFAULT) [address] [place] [address] 64521 Basophils/100 WBC (Bld) 0.4 % Normal O [facility] Comment on above: Performed By: #### C A, CHM7, IPB, T3RIA, MGO #### [facility] (DEFAULT) [address] [place] [address] 93438 DIFF STATUS Electronic Differential Normal [facility] Comment on above: Performed By: #### C A, CHM7, IPB, T3RIA, MGO #### [facility] (DEFAULT) [address] [place] [address] 07311 Eosinophils/100 WBC (Bld) 0.5 % Normal [facility] Comment on above: Performed By: #### C Kelly, CHM7, IPB, T3RIA, MGO #### [facility] (DEFAULT) [address] [place] [address] 92600 Hematocrit (Bld) [Volume fraction] 24.4 % Low 39.6-48.8 [facility] Comment on above: Performed By: #### C Kelly, CHM7, IPB, T3RIA, MGO #### [facility] (DEFAULT) [address] [place] [address] 64387 Hemoglobin (Bld) [Mass/Vol] 7.9 g/dL Low 13.4-16.8 [facility] Comment on above: Performed By: #### C A, CHM7, IPB, T3RIA, MGO #### [facility] (DEFAULT) [address] [place] [address] 18597 Immature Grans % 0.5 % Normal [facility] Comment on above: Performed By: #### C A, CHM7, IPB, T3RIA, MGO #### [facility] (DEFAULT) [address] [place] [address] 46495 Immature Grans Absolute < Normal <=0.07 [facility] Comment on above: Performed By: #### C A, CHM7, IPB, T3RIA, MGO #### [facility] (DEFAULT) [address] [place] [address] 60098 Lymphocytes (Bld) [#/Vol] 0.39 10*3/uL Low 0.83-3.57 [facility] Comment on above: Performed By: #### C A, CHM7, IPB, T3RIA, MGO #### [facility] (DEFAULT) [address] [place] [address] 29134 Lymphocytes/100 WBC (Bld) 7.0 % Normal [facility] Comment on above: Performed By: #### C A, CHM7, IPB, T3RIA, MGO #### [facility] (DEFAULT) [address] [place] [address] 26961 MCV (RBC) [Entitic vol] 93.1 fL Normal 79.0-94.5 O [facility] Comment on above: Performed By: #### C A, CHM7, IPB, T3RIA, MGO #### [facility] (DEFAULT) [address] [place] [address] 80975 Mean Cell Hgb 30.2 pg Normal 26.1-33.3 [facility] Comment on above: Performed By: #### C A, CHM7, IPB, T3RIA, MGO #### [facility] (DEFAULT) [address] [place] [address] 10103 Mean Cell Hgb Conc 32.4 g/dL Normal 31.9-36.5 [facility] [place] Comment on above: Performed By: #### C A, CHM7, IPB, T3RIA, MGO #### [facility] (DEFAULT) [address] [place] [address] 84617 Monocytes (Bld) [#/Vol] 0.62 10*3/uL Normal 0.24-0.93 [facility] Comment on above: Performed By: #### C A, CHM7, IPB, T3RIA, MGO #### [facility] (DEFAULT) [address] [place] [address] 68037 Monocytes/100 WBC (Bld) 11.1 % Normal O [facility] Comment on above: Performed By: #### C A, CHM7, IPB, T3RIA, MGO #### [facility] (DEFAULT) [address] [place] [address] 17005 Nucleated RBC 0.0 /100 WBC Normal <=0.2 [facility] Comment on above: Performed By: #### C A, CHM7, IPB, T3RIA, MGO #### [facility] (DEFAULT) [address] [place] [address] 42747 Platelet mean volume (Bld) [Entitic vol] 10.0 fL Normal 8.7-12.3 [facility] Comment on above: Performed By: #### C A, CHM7, IPB, T3RIA, MGO #### [facility] (DEFAULT) [address] [place] [address] 78780 Platelets (Bld) [#/Vol] 169 10*3/uL Normal 146-337 [facility] Comment on above: Performed By: #### C A, CHM7, IPB, T3RIA, MGO #### [facility] (DEFAULT) [address] [place] [address] 97345 RBC (Bld) [#/Vol] 2.62 10*6/uL Low 4.38-5.83 [facility] Comment on above: Performed By: #### C A, CHM7, IPB, T3RIA, MGO #### [facility] (DEFAULT) [address] [place] [address] 62465 RBC Distribution 13.8 % Normal 10.9-14.3 [facility] Comment on above: Performed By: #### C A, CHM7, IPB, T3RIA, MGO #### [facility] (DEFAULT) [address] [place] [address] 21758 Segs + Bands Auto 80.5 % Normal [facility] Comment on above: Performed By: #### C A, CHM7, IPB, T3RIA, MGO #### [facility] (DEFAULT) [address] [place] [address] 02114 Segs + Bands,Absolute Auto 4.48 K/uL Normal 1.57-6.19 [facility] Comment on above: Performed By: #### C A, CHM7, IPB, T3RIA, MGO #### [facility] (DEFAULT) [address] [place] [address] 47613 WBC (Bld) [#/Vol] 5.57 10*3/uL Normal 3.73-10.10 [facility] Comment on above: Performed By: #### C A, CHM7, IPB, T3RIA, MGO #### [facility] (DEFAULT) [address] [place] [address] 29396 CHEM 7 (LYTES,BUN,CREA,GLUC) on 06-10-2025 Anion gap [Moles/Vol] 12 mmol/L 7 - 17 mmol/L [facility] Chloride [Moles/Vol] 102 mmol/L 98 - 10 8 mmol/L [facility] CO2 [Moles/Vol] 27 mmol/L 21 - 31 mmol/L [facility] Creatinine [Mass/Vol] 1.25 mg/dL 0.70 - 1.30 mg/dL [facility] eGFR, CKD-EPI, Male 58 Low - PINF [facility] Comment on above: Reported eGFR is bas ed on the CKD-EPI 2020 equation using creatinine, age, and sex. Glucose [Mass/Vol] 102 mg/dL 70 - 179 mg/dL [facility] Interpretation and review of laboratory results Abnormal [facility] Osmolality Calc [Osmolality] 293 [facility] Potassium [Moles/Vol] 3.4 mmol/L Low 3.5 - 5.0 mmol/L [facility] Sodium [Moles/Vol] 138 mmol/L 135 - 145 mmol/L [facility] Urea nitrogen [Mass/Vol] 26 mg/dL High 7 - 25 mg/dL [facility] Urea nitrogen/Creatinine [Mass ratio] 21 mg/mg [facility] Anion gap [Moles/Vol] 12 mmol/L Normal 7-17 [facility] Comment on above: Performed By: #### C A, CHM7, IPB, T3RIA, MGO #### [facility] (DEFAULT) [address] [place] [address] 94047 Chloride [Moles/Vol] 102 mmol/L Normal 98-108 [facility] Comment on above: Performed By: #### C A, CHM7, IPB, T3RIA, MGO #### [facility] (DEFAULT) [address] [place] [address] 28751 CO2 [Moles/Vol] 27 mmol/L Normal 21-31 [facility] Comment on above: Performed By: #### C A, CHM7, IPB, T3RIA, MGO #### [facility] (DEFAULT) [address] [place] [address] 53040 Creatinine [Mass/Vol] 1.25 mg/dL Normal 0.70-1.30 [facility] Comment on above: Performed By: #### C A, CHM7, IPB, T3RIA, MGO #### [facility] (DEFAULT) [address] [place] [address] 36453 GFR/1.73 sq M.predicted among non-blacks MDRD (S/P/Bld) [Vol rate/Area] 56 mL/min/{1.73_m2} Low >=60 [facility] Comment on above: Result Comment: Repo rted eGFR is based on the CKD-EPI 2020 equation using creatinine, age, and sex. Performed By: #### Antoine Mendoza, CHM7, IPB, T3RIA, MGO #### [facility] (DEFAULT) [address] [place] [address] 71437 Glucose [Mass/Vol] 102 mg/dL Normal Nonfastin -179 mg/dL; Fastin-99 [facility] Comment on above: Performed By: #### Antoine Mendoza, CHM7, IPB, T3RIA, MGO #### [facility] (DEFAULT) [address] [place] [address] 70459 Osmolality [Osmolality] 293 mosm/kg Normal 278-305 [facility] Comment on above: Performed By: #### Antoine Mendoza, CHM7, IPB, T3RIA, MGO #### [facility] (DEFAULT) [address] [place] [address] 54516 Potassium [Moles/Vol] 3.4 mmol/L Low 3.5-5.0 [facility] Comment on above: Performed By: #### Antoine Mendoza, CHM7, IPB, T3RIA, MGO #### [facility] (DEFAULT) [address] [place] [address] 58804 Sodium [Moles/Vol] 138 mmol/L Normal 135-145 [facility] [place] Comment on above: Performed By: #### Antoine Mendoza, CHM7, IPB, T3RIA, MGO #### [facility] (DEFAULT) [address] [place] [address] 28051 Urea nitrogen [Mass/Vol] 26 mg/dL High 7-25 [facility] Comment on above: Performed By: #### Antoine Mendoza, CHM7, IPB, T3RIA, MGO #### [facility] (DEFAULT) [address] [place] [address] 78060 Urea nitrogen/Creatinine [Mass ratio] 21 mg/mg Normal [facility] Comment on above: Performed By: #### C A, CHM7, IPB, T3RIA, MGO #### [facility] (DEFAULT) [address] [place] [address] EXTRA MICROon 06-10-2025 [facility] HIGH SENSITIVITY TROPONIN I - SINGLE ORDEROrdered By: Bob Garcia on 06-10-2025 Interpretation and review of laboratory results Abnormal [facility] Troponin I.cardiac High sensitivity method [Mass/Vol] 123 ng/L High NINF - 53 ng/L [facility] Comment on above: Suggestive of myocar dial injury [facility] HIGH SENSITIVITY TROPONIN I - SINGLE ORDERon 06-10-2025 hs-Troponin I 123 ng/L High <53 [facility] Comment on above: Order Comment: Acute Coronary Syndrome (ACS): Initial Evaluation and Management:[email or web address] Result Comment: Sugg estive of myocardial injury Performed By: #### C Kelly, CHM7, IPB, T3RIA, MGO #### [facility] (DEFAULT) [address] [place] [address] 47524 MAGNESIUMon 06-10-2025 Magnesium [Mass/Vol] 1.9 mg/dL 1.6 - 2 .6 mg/dL [facility] Magnesium [Mass/Vol] 1.9 mg/dL Normal 1.6-2.6 [facility] Comment on above: Performed By: #### C Kelly, CHM7, IPB, T3RIA, MGO #### [facility] (DEFAULT) [address] [place] [address] No Panel Informationon 06-10 Interpretation and review of laboratory results Normal [facility] PHOSPHATE, INORGANICon 06-10 Phosphate [Mass/Vol] 3.2 mg/dL 2.2 - 4 .6 mg/dL [facility] Phosphorous 3.2 mg/dL Normal 2.2-4.6 [facility] Comment on above: Performed By: #### C A, CHM7, IPB, T3RIA, MGO #### [facility] (DEFAULT) [address] [place] [address] 61519 PROTIME-INRon 06-10-2025 INR Coag (Bld) [Relative time] 3.9 {INR} High 0.9 - 1.1 [facility] Interpretation and review of laboratory results Abnormal [facility] PT Coag (PPP) [Time] 38.8 s High [facility] INR Coag (PPP) [Relative time] 3.9 {INR} High 0.9-1.1 [facility] Comment on above: Performed By: #### U LYWILLIS UCRER #### [facility] (DEFAULT) [address] [place] [address] 50106 PT Coag (PPP) [Time] 38.8 s High 11.9-14.2 [facility] Comment on above: Performed By: #### U LYTR UCRER #### [facility] (DEFAULT) [address] [place] [address] 36637 TROPONIN 1 HOURon 06-10-2025 Delta hs-Troponin I 5 ng/L NINF - 1 5 ng/L [facility] Interpretation and review of laboratory results Abnormal [facility] Troponin I.cardiac High sensitivity method [Mass/Vol] 126 ng/L High NINF - 53 ng/L [facility] Comment on above: Suggestive of myocar dial injury [facility] 1 Hour hs-Troponin 126 ng/L High <53 [facility] [place] Comment on above: Order Comment: The r eference range has not been established for random urine specimens. The test result should be integrated into the clinical context for interpretation. Result Comment: Sugg estive of myocardial injury Performed By: #### U LYTR UCRER #### [facility] (DEFAULT) [address] [place] [address] 27414 Delta hs-Troponin I 5 ng/L Normal <=15 [facility] Comment on above: Order Comment: The r eference range has not been established for random urine specimens. The test result should be integrated into the clinical context for interpretation. Performed By: #### U LOIS RAMIREZ #### [facility] (DEFAULT) [address] [place] [address] TROPONIN I INITIALon 025 Interpretation and review of laboratory results Abnormal [facility] Troponin I.cardiac High sensitivity method [Mass/Vol] 121 ng/L High NINF - 53 ng/L [facility] Comment on above: Suggestive of myocar dial injury [facility] hs-Troponin I 121 ng/L High <53 [facility] Comment on above: Order Comment: Acute Coronary Syndrome (ACS): Initial Evaluation and Management:[email or web address] [email or web address] Result Comment: Sugg estive of myocardial injury Performed By: #### C A, CHM7, IPB, T3RIA, MGO #### [facility] (DEFAULT) [address] [place] [address] CALCIUMon 06-09-2025 Calcium [Mass/Vol] 9.3 mg/dL 8.6 - 10. 5 mg/dL [facility] Interpretation and review of laboratory results Normal [facility] Calcium [Mass/Vol] 9.3 mg/dL Normal 8.6-10.5 [facility] [place] Comment on above: Performed By: #### C A, CHM7, IPB, T3RIA, MGO #### [facility] (DEFAULT) [address] [place] [address] 59600 CBC AND ELECTRONIC DIFFon Basophils (Bld) [#/Vol] K/uL 0.00 - 0.09 K/uL [facility] Basophils/100 WBC (Bld) 0.6 % O [facility] Differential cell count method Nom (Bld) Electronic Differential [facility] Eosinophils (Bld) [#/Vol] K/uL 0.00 - 0.48 K/uL [facility] Eosinophils/100 WBC (Bld) 0.4 % [facility] Erythrocyte distribution width (RBC) [Ratio] 13.6 % 10.9 - 14.3 % [facility] Hematocrit (Bld) [Volume fraction] 24.1 % Low 39.6 - 48.8 % [facility] Hemoglobin (Bld) [Mass/Vol] 8.0 g/dL Low 13.4 - 16.8 g/dL [facility] Immature granulocytes (Bld) [#/Vol] K/uL NINF - 0.07 K/uL [facility] Immature granulocytes/100 WBC (Bld) 0.4 % [facility] Interpretation and review of laboratory results Abnormal [facility] Lymphocytes (Bld) [#/Vol] 0.44 10*3/uL Low 0.83 - 3.57 K/uL [facility] Lymphocytes/100 WBC (Bld) 8.1 % [facility] MCH (RBC) [Entitic mass] 30.9 pg 26.1 - 33.3 pg [facility] MCHC (RBC) [Mass/Vol] 33.2 g/dL 31.9 - 36.5 g/dL [facility] MCV (RBC) [Entitic vol] 93.1 fL 79.0 - 94.5 fL [facility] Monocytes (Bld) [#/Vol] 0.65 10*3/uL 0.24 - 0.93 K/uL [facility] Monocytes/100 WBC (Bld) 12.0 % [facility] Neutrophils (Bld) [#/Vol] 4.26 10*3/uL 1.57 - 6.19 K/uL [facility] Nucleated RBC/100 WBC (Bld) [Ratio] 0.0 % [facility] Platelet mean volume (Bld) [Entitic vol] 10.0 fL 8.7 - 12.3 fL [facility] Platelets (Bld) [#/Vol] 170 10*3/uL 146 - 337 K/uL [facility] RBC (Bld) [#/Vol] 2.59 10*6/uL Low [facility] Segmented neutrophils/100 WBC (Bld) 78.5 % [facility] WBC (Bld) [#/Vol] 5.42 10*3/uL 3.73 - 10.10 K/uL [facility] Abs Baso Auto < Normal 0.00-0.09 [facility] Comment on above: Performed By: #### U LYTR, UCRER #### [facility] (DEFAULT) [address] [address] Abs Eos Auto < Normal 0.00-0.48 [facility] Comment on above: Performed By: #### U LYTR, UCRER #### [facility] (DEFAULT) [address] [address] Basophils/100 WBC (Bld) 0.6 % Normal O [facility] Comment on above: Performed By: #### U LYTR, UCRER #### [facility] (DEFAULT) [address] [address] DIFF STATUS Electronic Differential Normal [facility] Comment on above: Performed By: #### U LYTR, UCRER #### [facility] (DEFAULT) [address] [address] Eosinophils/100 WBC (Bld) 0.4 % Normal [facility] Comment on above: Performed By: #### U LYTR, UCRER #### [facility] (DEFAULT) [address] [address] Hematocrit (Bld) [Volume fraction] 24.1 % Low 39.6-48.8 [facility] Comment on above: Performed By: #### U LYTR, UCRER #### [facility] (DEFAULT) [address] [address] Hemoglobin (Bld) [Mass/Vol] 8.0 g/dL Low 13.4-16.8 [facility] Comment on above: Performed By: #### U LYTR, UCRER #### [facility] (DEFAULT) [address] [address] Immature Grans % 0.4 % Normal [facility] Comment on above: Performed By: #### U LYTR, UCRER #### [facility] (DEFAULT) [address] [address] Immature Grans Absolute < Normal <=0.07 O [facility] Comment on above: Performed By: #### U LYTR, UCRER #### [facility] (DEFAULT) [address] [address] Lymphocytes (Bld) [#/Vol] 0.44 10*3/uL Low 0.83-3.57 [facility] Comment on above: Performed By: #### U LYTR, UCRER #### [facility] (DEFAULT) [address] [address] Lymphocytes/100 WBC (Bld) 8.1 % Normal [facility] Comment on above: Performed By: #### U LYTR, UCRER #### [facility] (DEFAULT) [address] [address] MCV (RBC) [Entitic vol] 93.1 fL Normal 79.0-94.5 O [facility] Comment on above: Performed By: #### U LYTR, UCRER #### [facility] (DEFAULT) [address] [address] Mean Cell Hgb 30.9 pg Normal 26.1-33.3 [facility] Comment on above: Performed By: #### U LYTR, UCRER #### [facility] (DEFAULT) [address] [address] Mean Cell Hgb Conc 33.2 g/dL Normal 31.9-36.5 [facility] [place] Comment on above: Performed By: #### U LYTR, UCRER #### [facility] (DEFAULT) [address] [place] [address] 44364 Monocytes (Bld) [#/Vol] 0.65 10*3/uL Normal 0.24-0.93 [facility] Comment on above: Performed By: #### U LYTR, UCRER #### [facility] (DEFAULT) [address] [place] [address] 61016 Monocytes/100 WBC (Bld) 12.0 % Normal O [facility] Comment on above: Performed By: #### U LYTR, UCRER #### [facility] (DEFAULT) [address] [place] [address] 73743 Nucleated RBC 0.0 /100 WBC Normal <=0.2 [facility] Comment on above: Performed By: #### U LYTR, UCRER #### [facility] (DEFAULT) [address] [place] [address] 15163 Platelet mean volume (Bld) [Entitic vol] 10.0 fL Normal 8.7-12.3 [facility] Comment on above: Performed By: #### U LYTR, UCRER #### [facility] (DEFAULT) [address] [place] [address] 74794 Platelets (Bld) [#/Vol] 170 10*3/uL Normal 146-337 [facility] Comment on above: Performed By: #### U LYTR, UCRER #### [facility] (DEFAULT) [address] [place] [address] 14122 RBC (Bld) [#/Vol] 2.59 10*6/uL Low 4.38-5.83 [facility] Comment on above: Performed By: #### U LYTR, UCRER #### [facility] (DEFAULT) [address] [place] [address] 06065 RBC Distribution 13.6 % Normal 10.9-14.3 [facility] Comment on above: Performed By: #### U LYTR, UCRER #### [facility] (DEFAULT) [address] [place] [address] 05485 Segs + Bands Auto 78.5 % Normal [facility] Comment on above: Performed By: #### U LYTR, UCRER #### [facility] (DEFAULT) [address] [place] [address] 04960 Segs + Bands,Absolute Auto 4.26 K/uL Normal 1.57-6.19 [facility] Comment on above: Performed By: #### U LYTR, UCRER #### [facility] (DEFAULT) [address] [place] [address] 92263 WBC (Bld) [#/Vol] 5.42 10*3/uL Normal 3.73-10.10 [facility] Comment on above: Performed By: #### U LYTR, UCRER #### [facility] (DEFAULT) [address] [place] [address] 43957 CHEM 7 (LYTES,BUN,CREA,GLUC) on 06-09-2025 Anion gap [Moles/Vol] 13 mmol/L 7 - 17 mmol/L [facility] Chloride [Moles/Vol] 101 mmol/L 98 - 10 8 mmol/L [facility] CO2 [Moles/Vol] 26 mmol/L 21 - 31 mmol/L [facility] Creatinine [Mass/Vol] 1.46 mg/dL High 0.70 - 1.30 mg/dL [facility] eGFR, CKD-EPI, Male 48 Low - PINF [facility] Comment on above: Reported eGFR is bas ed on the CKD-EPI 2020 equation using creatinine, age, and sex. Glucose [Mass/Vol] 123 mg/dL 70 - 179 mg/dL [facility] Osmolality Calc [Osmolality] 294 [facility] Potassium [Moles/Vol] 3.4 mmol/L Low 3.5 - 5.0 mmol/L [facility] Sodium [Moles/Vol] 137 mmol/L 135 - 145 mmol/L [facility] Urea nitrogen [Mass/Vol] 30 mg/dL High 7 - 25 mg/dL [facility] Urea nitrogen/Creatinine [Mass ratio] 21 mg/mg [facility] Anion gap [Moles/Vol] 13 mmol/L Normal 7-17 [facility] Comment on above: Performed By: #### C A, CHM7, IPB, T3RIA, MGO #### [facility] (DEFAULT) [address] [place] [address] 49372 Chloride [Moles/Vol] 101 mmol/L Normal 98-108 [facility] Comment on above: Performed By: #### C A, CHM7, IPB, T3RIA, MGO #### [facility] (DEFAULT) [address] [place] [address] 47002 CO2 [Moles/Vol] 26 mmol/L Normal 21-31 [facility] Comment on above: Performed By: #### C A, CHM7, IPB, T3RIA, MGO #### [facility] (DEFAULT) [address] [place] [address] 38275 Creatinine [Mass/Vol] 1.46 mg/dL High 0.70-1.30 [facility] Comment on above: Performed By: #### C A, CHM7, IPB, T3RIA, MGO #### [facility] (DEFAULT) [address] [place] [address] 73524 GFR/1.73 sq M.predicted among non-blacks MDRD (S/P/Bld) [Vol rate/Area] 46 mL/min/{1.73_m2} Low >=60 [facility] Comment on above: Result Comment: Repo rted eGFR is based on the CKD-EPI 2020 equation using creatinine, age, and sex. Performed By: #### C A, CHM7, IPB, T3RIA, MGO #### [facility] (DEFAULT) [address] [place] [address] 64455 Glucose [Mass/Vol] 123 mg/dL Normal Nonfastin -179 mg/dL; Fastin-99 [facility] Comment on above: Performed By: #### Antoine Mendoza, CHM7, IPB, T3RIA, MGO #### [facility] (DEFAULT) [address] [place] [address] 51267 Osmolality [Osmolality] 294 mosm/kg Normal 278-305 [facility] Comment on above: Performed By: #### C Kelly, CHM7, IPB, T3RIA, MGO #### [facility] (DEFAULT) [address] [place] [address] [phone] Potassium [Moles/Vol] 3.4 mmol/L Low 3.5-5.0 [facility] Comment on above: Performed By: #### Antoine Mendoza, CHM7, IPB, T3RIA, MGO #### [facility] (DEFAULT) [address] [place] [address] [phone] Sodium [Moles/Vol] 137 mmol/L Normal 135-145 [facility] Comment on above: Performed By: #### Antoine Mendoza, CHM7, IPB, T3RIA, MGO #### [facility] (DEFAULT) [address] [place] [address] 60760 Urea nitrogen [Mass/Vol] 30 mg/dL High 7-25 [facility] Comment on above: Performed By: #### C Kelly, CHM7, IPB, T3RIA, MGO #### [facility] (DEFAULT) [address] [place] [address] 96413 Urea nitrogen/Creatinine [Mass ratio] 21 mg/mg Normal [facility] Comment on above: Performed By: #### C A, CHM7, IPB, T3RIA, MGO #### [facility] (DEFAULT) [address] [place] [id number] PE STUDYon 06-09-2025 CT PE STUDY EXAM: CT angiography ; chest (noncoronary), 06/09/2025 20:34 PM, CT PE STUDY COMPARISON: PET CT from April 18, 2025, chest CT from January 02, 2025. CLINICAL INDICATIONS: ELIZABETH, trop and bnp elevated. TECHNIQUE: CT images of the chest were obtained following administration of intravenous contrast. Coronal maximum intensity projection (MIP) images were generated. CONTRAST: iohexol (OMNIPAQUE) 350 MG/ML injection 1-171 mL; Route of Administration: Intravenous; Dose: 80 mL. FINDINGS: Pulmonary arteries: The pulmonary arteries are adequately opacified, with no evidence of pulmonary embolism. Lungs and Pleura: The central airways are patent, with more distal evaluation limited by motion. There is mild bronchial wall thickening. A right middle lobe nodule on series 4 image 121 measures 6 mm and there is a 3 mm right lower lobe nodule on series 4 image 108. On the left there are a few 2 to 3 mm nodules which are most conspicuous on MIP images. Scarring in the lingula appears unchanged and there is minimal atelectasis in the lower lobes. There is no pneumothorax or pleural effusion. Mediastinum/Savana: No mediastinal or hilar lymphadenopathy. Lymph nodes: No axillary or supraclavicular adenopathy. Cardiovascular: The heart is enlarged. There is no pericardial effusion. 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 The aorta and great vessels are unremarkable other than scattered atherosclerotic plaque without significant stenosis. Upper Abdomen: The visualized upper abdomen is grossly unremarkable on limited evaluation. The patient is status post cholecystectomy. The liver lesions seen on PET are not apparent which could be due to phase of imaging. Bones and Soft Tissue: Sternotomy is intact. There are no suspicious bone lesions. A 4 x 6 mm soft tissue nodule adjacent to the right eighth rib head corresponds to the hypermetabolic lesion on the prior PET. Lesions are not identified to correspond to the other small hypermetabolic foci. IMPRESSION: 1. No pulmonary embolism. No evidence of acute disease. 2. A few small lung nodules, the largest of which measures 6 mm. 3. Small soft tissue nodule corresponding to the hypermetabolic lesion seen on the prior PET. 4. Cardiomegaly and coronary artery disease. [facility] CT Pulmonary arteries for pu lmonary emboluson 06-09-2025 IMPRESSION: 1. No pulmonary embolism. No evidence of acute disease. 2. A few small lung nodules, the largest of which measures 6 mm. 3. Small soft tissue nodule corresponding to the hypermetabolic lesion seen on the prior PET. 4. Cardiomegaly and coronary artery disease. OLOGY EXAM: CT angiography ; chest (noncoronary), 06/09/2025 20:34 PM, CT PE STUDY COMPARISON: PET CT from April 18, 2025, chest CT from January 02, 2025. CLINICAL INDICATIONS: ELIZABETH, trop and bnp elevated. TECHNIQUE: CT images of the chest were obtained following administration of intravenous contrast. Coronal maximum intensity projection (MIP) images were generated. CONTRAST: iohexol (OMNIPAQUE) 350 MG/ML injection 1-171 mL; Route of Administration: Intravenous; Dose: 80 mL. FINDINGS: Pulmonary arteries: The pulmonary arteries are adequately opacified, with no evidence of pulmonary embolism. Lungs and Pleura: The central airways are patent, with more distal evaluation limited by motion. There is mild bronchial wall thickening. A right middle lobe nodule on series 4 image 121 measures 6 mm and there is a 3 mm right lower lobe nodule on series 4 image 108. On the left there are a few 2 to 3 mm nodules which are most conspicuous on MIP images. Scarring in the lingula appears unchanged and there is minimal atelectasis in the lower lobes. There is no pneumothorax or pleural effusion. Mediastinum/Savana: No mediastinal or hilar lymphadenopathy. Lymph nodes: No axillary or supraclavicular adenopathy. Cardiovascular: The heart is enlarged. There is no pericardial effusion. 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 The aorta and great vessels are unremarkable other than scattered atherosclerotic plaque without significant stenosis. Upper Abdomen: The visualized upper abdomen is grossly unremarkable on limited evaluation. The patient is status post cholecystectomy. The liver lesions seen on PET are not apparent which could be due to phase of imaging. Bones and Soft Tissue: Sternotomy is intact. There are no suspicious bone lesions. A 4 x 6 mm soft tissue nodule adjacent to the right eighth rib head corresponds to the hypermetabolic lesion on the prior PET. Lesions are not identified to correspond to the other small hypermetabolic foci. RADIOLOGY Duy Carter, Burke Carbajal MD - 06/09/2025 EXAM: CT angiography; chest (noncoronary), 06/09/2025 20:34 PM, CT PE STUDY COMPARISON: PET CT from April 18, 2025, chest CT from January 02, 2025. CLINICAL INDICATIONS: ELIZABETH, trop and bnp elevated. TECHNIQUE: CT images of the chest were obtained following administration of intravenous contrast. Coronal maximum intensity projection (MIP) images were generated. CONTRAST: iohexol (OMNIPAQUE) 350 MG/ML injection 1-171 mL; Route of Administration: Intravenous; Dose: 80 mL. FINDINGS: Pulmonary arteries: The pulmonary arteries are adequately opacified, with no evidence of pulmonary embolism. Lungs and Pleura: The central airways are patent, with more distal evaluation limited by motion. There is mild bronchial wall thickening. A right middle lobe nodule on series 4 image 121 measures 6 mm and there is a 3 mm right lower lobe nodule on series 4 image 108. On the left there are a few 2 to 3 mm nodules which are most conspicuous on MIP images. Scarring in the lingula appears unchanged and there is minimal atelectasis in the lower lobes. There is no pneumothorax or pleural effusion. Mediastinum/Savana: No mediastinal or hilar lymphadenopathy. Lymph nodes: No axillary or supraclavicular adenopathy. Cardiovascular: The heart is enlarged. There is no pericardial effusion. 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 The aorta and great vessels are unremarkable other than scattered atherosclerotic plaque without significant stenosis. Upper Abdomen: The visualized upper abdomen is grossly unremarkable on limited evaluation. The patient is status post cholecystectomy. The liver lesions seen on PET are not apparent which could be due to phase of imaging. Bones and Soft Tissue: Sternotomy is intact. There are no suspicious bone lesions. A 4 x 6 mm soft tissue nodule adjacent to the right eighth rib head corresponds to the hypermetabolic lesion on the prior PET. Lesions are not identified to correspond to the other small hypermetabolic foci. IMPRESSION IMPRESSION: 1. No pulmonary embolism. No evidence of acute disease. 2. A few small lung nodules, the largest of which measures 6 mm. 3. Small soft tissue nodule corresponding to the hypermetabolic lesion seen on the prior PET. 4. Cardiomegaly and coronary artery disease. [facility] Radiology Study observation (narrative) [facility] CT Pulmonary arteries for pu lmonary embolusOrdered By: Burke Gordillo on 06-09-2025 [facility] Work Phone: HEPATIC FUNCTION PANELon Albumin [Mass/Vol] 3.8 g/dL 3.5 - 5.0 g/dL [facility] ALP [Catalytic activity/Vol] 94 U/L 32 - 126 U/L [facility] ALT [Catalytic activity/Vol] 9 U/L Low 10 - 52 U/L [facility] AST [Catalytic activity/Vol] 16 U/L 10 - 39 U/L [facility] Bilirubin [Mass/Vol] 0.8 mg/dL [facility] - 1.[facility] mg/dL [facility] Bilirubin.direct [Mass/Vol] 0.2 mg/dL [facility] - 0.3 mg/dL [facility] Protein [Mass/Vol] 6.5 g/dL 6.4 - 8.3 g/dL [facility] Albumin [Mass/Vol] 3.8 g/dL Normal 3.5-5.0 [facility] Comment on above: Performed By: #### C A, CHM7, IPB, T3RIA, MGO #### [facility] (DEFAULT) [address] [place] [address] ALP [Catalytic activity/Vol] 94 U/L Normal 32-126 [facility] Comment on above: Performed By: #### C A, CHM7, IPB, T3RIA, MGO #### [facility] (DEFAULT) [address] [place] [address] ALT [Catalytic activity/Vol] 9 U/L Low 10-52 [facility] Comment on above: Performed By: #### C Kelly, CHM7, IPB, T3RIA, MGO #### [facility] (DEFAULT) [address] [place] [address] 64441 AST [Catalytic activity/Vol] 16 U/L Normal 10-39 [facility] Comment on above: Performed By: #### C A, CHM7, IPB, T3RIA, MGO #### [facility] (DEFAULT) [address] [place] [address] 48686 Bilirubin [Mass/Vol] 0.8 mg/dL Normal <1.5 [facility] Comment on above: Performed By: #### C A, CHM7, IPB, T3RIA, MGO #### [facility] (DEFAULT) [address] [place] [address] 51904 Bilirubin.indirect [Mass/Vol] 0.2 mg/dL Normal <0.3 [facility] Comment on above: Performed By: #### C Kelly, CHM7, IPB, T3RIA, MGO #### [facility] (DEFAULT) [address] [place] [address] 26072 Protein [Mass/Vol] 6.5 g/dL Normal 6.4-8.3 [facility] Comment on above: Performed By: #### C A, CHM7, IPB, T3RIA, MGO #### [facility] (DEFAULT) [address] [place] [address] 23572 HIGH SENSITIVITY TROPONIN I - SINGLE ORDERon 06-09-2025 Interpretation and review of laboratory results Abnormal [facility] Troponin I.cardiac High sensitivity method [Mass/Vol] 94 ng/L High NINF - 53 ng/L [facility] hs-Troponin I 94 ng/L High <53 [facility] Comment on above: Order Comment: The r eference range has not been established for random urine specimens. The test result should be integrated into the clinical context for interpretation. Performed By: #### U LYTR, UCRER #### [facility] (DEFAULT) [address] [place] [address] hs-Troponin I 85 ng/L High <53 [facility] Comment on above: Order Comment: Acute Coronary Syndrome (ACS): Initial Evaluation and Management:[email or web address] Performed By: #### C Kelly, CHM7, IPB, T3RIA, MGO #### [facility] (DEFAULT) [address] [place] [address] HIGH SENSITIVITY TROPONIN I - SINGLE ORDEROrdered By: Addison Franklin on 06-09-2025 Interpretation and review of laboratory results Abnormal [facility] Troponin I.cardiac High sensitivity method [Mass/Vol] 85 ng/L High NINF - 53 ng/L [facility] LACTATE, WHOLE BLOODon 06-09 Interpretation and review of laboratory results Abnormal [facility] Lactate [Moles/Vol] 1.7 mmol/L High 0.5 - 1. 6 mmol/L [facility] Lactate, Whole Blood 1.7 mmol/L High 0.5-1.6 [facility] Comment on above: Performed By: #### C Kelly, CHM7, IPB, T3RIA, MGO #### [facility] (DEFAULT) [address] [place] [address] LIPASEon 06-09-2025 Lipase [Catalytic activity/Vol] 10 U/L Low 11 - 82 U/L [facility] Lipase [Catalytic activity/Vol] 10 U/L Low 11-82 [facility] Comment on above: Performed By: #### C Kelly, CHM7, IPB, T3RIA, MGO #### [facility] (DEFAULT) [address] [place] [address] MAGNESIUMon 06-09-2025 Magnesium [Mass/Vol] 1.5 mg/dL Low 1.6 - 2 .6 mg/dL [facility] Magnesium [Mass/Vol] 1.5 mg/dL Low 1.6-2.6 [facility] Comment on above: Performed By: #### Antoine Mendoza, MELBAM7, IPB, T3RIA, MGO #### [facility] (DEFAULT) [address] [place] [address] 12452 NT-PRO B-TYPE NATRIURETIC PE PTIDEon 06-09-2025 Interpretation and review of laboratory results Abnormal [facility] Natriuretic peptide.B prohormone N-Terminal IA [Mass/Vol] 4511 pg/mL High NINF - 540 pg/mL [facility] Natriuretic peptide B (Bld) [Mass/Vol] 4511 pg/mL High <=540 [facility] Comment on above: Performed By: #### GERMAIN Valencia, YEIMIB, T3RIA, MGO #### [facility] (DEFAULT) [address] [place] [address] 49386 No Panel Informationon 06-09 [facility] Interpretation and review of laboratory results Abnormal [facility] PHOSPHATE, INORGANICon 06-09 Interpretation and review of laboratory results Normal [facility] Phosphate [Mass/Vol] 3.4 mg/dL 2.2 - 4 .6 mg/dL [facility] Phosphorous 3.4 mg/dL Normal 2.2-4.6 [facility] Comment on above: Performed By: #### Antoine Mendoza, GERMAIN, IPB, T3RIA, MGO #### [facility] (DEFAULT) [address] [place] [address] 73541 Portable XR Chest Viewson IMPRESSION: Cardiomegaly with clear lungs. OLOGY EXAM: XR CHEST 1 VIE W PORTABLE, 06/09/2025 16:26 PM COMPARISON: None CLINICAL INDICATIONS: fatigue; h/o melanoma on immunotherapy RELEVANT CLINICAL HISTORY: FINDINGS: (Adequate technique) Implanted Devices: Left subclavian approach biventricular pacemaker/ICD with leads in the right atrium, right ventricle, and along the posterior wall of the left ventricle via the coronary sinus. Thorax: The heart size is enlarged. Lungs appear generally clear with no focal airspace disease or evidence of pulmonary edema. There is no pleural effusion or pneumothorax. Patient is status post median sternotomy with intact sternal wires. RADIOLOGY Rd Back MD - 06/09/2025 EXAM: XR CHEST 1 VIEW PORTABLE, 06/09/2025 16:26 PM COMPARISON: None CLINICAL INDICATIONS: fatigue; h/o melanoma on immunotherapy RELEVANT CLINICAL HISTORY: FINDINGS: (Adequate technique) Implanted Devices: Left subclavian approach biventricular pacemaker/ICD with leads in the right atrium, right ventricle, and along the posterior wall of the left ventricle via the coronary sinus. Thorax: The heart size is enlarged. Lungs appear generally clear with no focal airspace disease or evidence of pulmonary edema. There is no pleural effusion or pneumothorax. Patient is status post median sternotomy with intact sternal wires. IMPRESSION IMPRESSION: Cardiomegaly with clear lungs. [facility] Radiology Study observation (narrative) [facility] Portable XR Chest ViewsOrder ed By: Rd Back on 06-09-2025 [facility] Work Phone: T4 FREEon 06-09-2025 Free T4 [Mass/Vol] 1.98 ng/dL High 0.89 - 1. 76 ng/dL [facility] Interpretation and review of laboratory results Abnormal [facility] Free T4 [Mass/Vol] 1.98 ng/dL High 0.89-1.76 [facility] Comment on above: Performed By: #### C A, CHM7, IPB, T3RIA, MGO #### [facility] (DEFAULT) [address] [place] [address] TSH W/FT4 REFLEXon Interpretation and review of laboratory results Abnormal [facility] TSH Qn 0.149 m[IU]/L Low [facility] TSH 0.149 uIU/mL Low 0.550-4.780 [facility] Comment on above: Performed By: #### C A, CHM7, IPB, T3RIA, MGO #### [facility] (DEFAULT) [address] [place] [address] URINALYSIS REFLEX TO CULTURE PERFORMABLEon 06-09-2025 Appearance (U) Clear Clear [facility] Bacteria LM Ql (Urine sed) ABSENT ABSENT [facility] Color (U) Yellow Yellow [facility] Epithelial cells.squamous LM Ql (Urine sed) 0-2/hpf 0-2/hpf, 3-5/hpf = 1+ [facility] Glucose Test strip (U) [Mass/Vol] Negative Negative [facility] Interpretation and review of laboratory results Normal [facility] Ketones (U) [Mass/Vol] Negative Negative [facility] Leukocyte esterase Test strip Ql (U) Negative Negative [facility] Nitrite Ql (U) Negative Negative [facility] pH (U) 5.5 [pH] 5.0 - 7.0 [facility] Protein (U) [Mass/Vol] Negative Negative [facility] RBC (U) [#/Vol] Negative [facility] RBC LM.HPF (Urine sed) [#/Area] 0-2 [facility] Specific gravity (U) [Rel density] 1.011 1.001 - 1.035 [facility] Urobilinogen (U) [Mass/Vol] 0.2 E.U./dL 0.2 E.U/dL, 1.0 E.U/dL [facility] WBC LM.HPF (Urine sed) [#/Area] 0 - 5 [facility] Appearance (U) Clear Normal Clear [facility] Comment on above: Order Comment: For i ndwelling catheters, specimen collection is acceptable on catheter day 1 and 2 only. ? Performed By: #### C A, CHM7, IPB, T3RIA, MGO #### [facility] (DEFAULT) [address] [place] [address]4429 Bacteria ABSENT Normal ABSENT [facility] Comment on above: Order Comment: For i ndwelling catheters, specimen collection is acceptable on catheter day 1 and 2 only. ? Performed By: #### C A, CHM7, IPB, T3RIA, MGO #### [facility] (DEFAULT) [address] [place] [address] 00671 Blood Urine Negative Normal Negative [facility] Comment on above: Order Comment: For i ndwelling catheters, specimen collection is acceptable on catheter day 1 and 2 only. ? Performed By: #### C A, CHM7, IPB, T3RIA, MGO #### [facility] (DEFAULT) [address] [place] [address] 00212 Color (U) Yellow Normal Yellow [facility] Comment on above: Order Comment: For i ndwelling catheters, specimen collection is acceptable on catheter day 1 and 2 only. ? Performed By: #### C A, CHM7, IPB, T3RIA, MGO #### [facility] (DEFAULT) [address] [place] [address] 46021 Glucose Ql (U) Negative Normal Negative [facility] Comment on above: Order Comment: For i ndwelling catheters, specimen collection is acceptable on catheter day 1 and 2 only. ? Performed By: #### C A, CHM7, IPB, T3RIA, MGO #### [facility] (DEFAULT) [address] [place] [address] 00247 Ketones Ql (U) Negative Normal Negative [facility] Comment on above: Order Comment: For i ndwelling catheters, specimen collection is acceptable on catheter day 1 and 2 only. ? Performed By: #### C A, CHM7, IPB, T3RIA, MGO #### [facility] (DEFAULT) [address] [place] [address] 21315 Leukocyte esterase Test strip Ql (U) Negative Normal Negative [facility] Comment on above: Order Comment: For i ndwelling catheters, specimen collection is acceptable on catheter day 1 and 2 only. ? Performed By: #### C A, CHM7, IPB, T3RIA, MGO #### [facility] (DEFAULT) [address] [place] [address] 18345 Nitrites Urine Negative Normal Negative [facility] Comment on above: Order Comment: For i ndwelling catheters, specimen collection is acceptable on catheter day 1 and 2 only. ? Performed By: #### C A, CHM7, IPB, T3RIA, MGO #### [facility] (DEFAULT) [address] [place] [address] 13431 pH (U) 5.5 [pH] Normal 5.0-7.0 [facility] Comment on above: Order Comment: For i ndwelling catheters, specimen collection is acceptable on catheter day 1 and 2 only. ? Performed By: #### C A, CHM7, IPB, T3RIA, MGO #### [facility] (DEFAULT) [address] [place] [address] 13375 Protein Urine Negative Normal Negative [facility] Comment on above: Order Comment: For i ndwelling catheters, specimen collection is acceptable on catheter day 1 and 2 only. ? Performed By: #### C A, CHM7, IPB, T3RIA, MGO #### [facility] (DEFAULT) [address] [place] [address] 16484 RBC Urine 0-2 Normal 0-2 [facility] Comment on above: Order Comment: For i ndwelling catheters, specimen collection is acceptable on catheter day 1 and 2 only. ? Performed By: #### C A, CHM7, IPB, T3RIA, MGO #### [facility] (DEFAULT) [address] [place] [address] 44797 Specific [place] Urine 1.011 Normal 1.001-1.035 [facility] Comment on above: Order Comment: For i ndwelling catheters, specimen collection is acceptable on catheter day 1 and 2 only. ? Performed By: #### Antoine Mendoza, CHM7, IPB, T3RIA, MGO #### [facility] (DEFAULT) [address] [place] [address] 57736 Squamous/Epithelial Cells, Urine 0-2/hpf Normal 0-2/hpf, 3-5/hpf = 1+ [facility] Comment on above: Order Comment: For i ndwelling catheters, specimen collection is acceptable on catheter day 1 and 2 only. ? Performed By: #### C Kelly, CHM7, IPB, T3RIA, MGO #### [facility] (DEFAULT) [address] [place] [address] 87531 Urobilinogen Urine 0.2 E.U./dL Normal 0.2 E.U/d L, 1.0 E.U/dL [facility] Comment on above: Order Comment: For i ndwelling catheters, specimen collection is acceptable on catheter day 1 and 2 only. ? Performed By: #### C Kelly, CHM7, IPB, T3RIA, MGO #### [facility] (DEFAULT) [address] [place] [address] 76092 WBC Urine 0 - 5 Normal 0 - 5 [facility] Comment on above: Order Comment: For i ndwelling catheters, specimen collection is acceptable on catheter day 1 and 2 only. ? Performed By: #### Antoine Mendoza, CHM7, IPB, T3RIA, MGO #### [facility] (DEFAULT) [address] [place] [address] 98593 XR CHEST 1 VIEW PORTABLEon 0 06-09-2025 XR CHEST 1 VIEW PORTABLE EXAM: XR CHEST 1 VIEW PORTABLE, 06/09/2025 16:26 PM COMPARISON: None CLINICAL INDICATIONS: fatigue; h/o melanoma on immunotherapy RELEVANT CLINICAL HISTORY: FINDINGS: (Adequate technique) Implanted Devices: Left subclavian approach biventricular pacemaker/ICD with leads in the right atrium, right ventricle, and along the posterior wall of the left ventricle via the coronary sinus. Thorax: The heart size is enlarged. Lungs appear generally clear with no focal airspace disease or evidence of pulmonary edema. There is no pleural effusion or pneumothorax. Patient is status post median sternotomy with intact sternal wires. IMPRESSION: Cardiomegaly with clear lungs. Normal [facility] 36on 05-28-2025 36 Daughter called haydemeek taylor today wanting to know if he can stop his Atorvastatin. Per Meghann Sahu to stop Atorvastatin. Normal [facility] 36on 05-24-2025 36 Daughter called alysha taylor in reference to Atorvastatin Normal [facility] 36 Pt calling again Normal [facility] CBC AND ELECTRONIC DIFFon Basophils (Bld) [#/Vol] K/uL 0.00 - 0.09 K/uL [facility] Basophils/100 WBC (Bld) 0.5 % [facility] Differential cell count method Nom (Bld) Electronic Differential [facility] Eosinophils (Bld) [#/Vol] 0.07 10*3/uL 0.00 - 0.48 K/uL [facility] Eosinophils/100 WBC (Bld) 1.2 % [facility] Erythrocyte distribution width (RBC) [Ratio] 13.1 % 10.9 - 14.3 % [facility] Hematocrit (Bld) [Volume fraction] 28.1 % Low 39.6 - 48.8 % [facility] Hemoglobin (Bld) [Mass/Vol] 8.9 g/dL Low 13.4 - 16.8 g/dL [facility] Immature granulocytes (Bld) [#/Vol] K/uL NINF - 0.07 K/uL [facility] Immature granulocytes/100 WBC (Bld) 0.5 % [facility] Interpretation and review of laboratory results Abnormal [facility] Lymphocytes (Bld) [#/Vol] 0.76 10*3/uL Low 0.83 - 3.57 K/uL [facility] Lymphocytes/100 WBC (Bld) 12.6 % [facility] MCH (RBC) [Entitic mass] 30.9 pg 26.1 - 33.3 pg [facility] MCHC (RBC) [Mass/Vol] 31.7 g/dL Low 31.9 - 36.5 g/dL [facility] MCV (RBC) [Entitic vol] 97.6 fL High 79.0 - 94.5 fL [facility] Monocytes (Bld) [#/Vol] 0.66 10*3/uL 0.24 - 0.93 K/uL [facility] Monocytes/100 WBC (Bld) 11.0 % O [facility] Neutrophils (Bld) [#/Vol] 4.47 10*3/uL 1.57 - 6.19 K/uL [facility] Nucleated RBC/100 WBC (Bld) [Ratio] 0.0 % NINF [facility] Platelet mean volume (Bld) [Entitic vol] 10.1 fL 8.7 - 12.3 fL [facility] Platelets (Bld) [#/Vol] 155 10*3/uL 146 - 337 K/uL [facility] RBC (Bld) [#/Vol] 2.88 10*6/uL Low [facility] Segmented neutrophils/100 WBC (Bld) 74.2 % [facility] WBC (Bld) [#/Vol] 6.02 10*3/uL 3.73 - 10.10 K/uL [facility] Abs Baso Auto < Normal 0.00-0.09 [facility] Comment on above: Performed By: #### C A, CHM7, IPB, T3RIA, MGO #### [facility] (DEFAULT) [address] [address] Basophils/100 WBC (Bld) 0.5 % Normal O [facility] Comment on above: Performed By: #### C A, CHM7, IPB, T3RIA, MGO #### [facility] (DEFAULT) [address] [place] [address] 49796 DIFF STATUS Electronic Differential Normal [facility] Comment on above: Performed By: #### Antoine Mendoza, CHM7, IPB, T3RIA, MGO #### [facility] (DEFAULT) [address] [place] [address]89 Eosinophils (Bld) [#/Vol] 0.07 10*3/uL Normal 0.00-0.48 [facility] Comment on above: Performed By: #### Antoine Mendoza, CHM7, IPB, T3RIA, MGO #### [facility] (DEFAULT) [address] [place] [address] 21366 Eosinophils/100 WBC (Bld) 1.2 % Normal [facility] Comment on above: Performed By: #### Antoine Mendoza, CHM7, IPB, T3RIA, MGO #### [facility] (DEFAULT) [address] [place] [address] 26574 Hematocrit (Bld) [Volume fraction] 28.1 % Low 39.6-48.8 [facility] Comment on above: Performed By: #### Antoine Mendoza, CHM7, IPB, T3RIA, MGO #### [facility] (DEFAULT) [address] [place] [address] 15736 Hemoglobin (Bld) [Mass/Vol] 8.9 g/dL Low 13.4-16.8 [facility] Comment on above: Performed By: #### Antoine Mendoza, CHM7, IPB, T3RIA, MGO #### [facility] (DEFAULT) [address] [place] [address] 14330 Immature Grans % 0.5 % Normal [facility] Comment on above: Performed By: #### Antoine Mendoza, CHM7, IPB, T3RIA, MGO #### [facility] (DEFAULT) [address] [place] [address] 26359 Immature Grans Absolute < Normal <=0.07 O [facility] Comment on above: Performed By: #### C A, CHM7, IPB, T3RIA, MGO #### [facility] (DEFAULT) [address] [place] [address] 64049 Lymphocytes (Bld) [#/Vol] 0.76 10*3/uL Low 0.83-3.57 [facility] Comment on above: Performed By: #### C A, CHM7, IPB, T3RIA, MGO #### [facility] (DEFAULT) [address] [place] [address] 28212 Lymphocytes/100 WBC (Bld) 12.6 % Normal [facility] Comment on above: Performed By: #### C A, CHM7, IPB, T3RIA, MGO #### [facility] (DEFAULT) [address] [place] [address] 80583 MCV (RBC) [Entitic vol] 97.6 fL High 79.0-94.5 O [facility] Comment on above: Performed By: #### C A, CHM7, IPB, T3RIA, MGO #### [facility] (DEFAULT) [address] [place] [address] 80359 Mean Cell Hgb 30.9 pg Normal 26.1-33.3 [facility] Comment on above: Performed By: #### C A, CHM7, IPB, T3RIA, MGO #### [facility] (DEFAULT) [address] [place] [address] 39597 Mean Cell Hgb Conc 31.7 g/dL Low 31.9-36.5 [facility] Comment on above: Performed By: #### C A, CHM7, IPB, T3RIA, MGO #### [facility] (DEFAULT) [address] [place] [address] 09183 Monocytes (Bld) [#/Vol] 0.66 10*3/uL Normal 0.24-0.93 [facility] Comment on above: Performed By: #### C A, CHM7, IPB, T3RIA, MGO #### [facility] (DEFAULT) [address] [place] [address] 94068 Monocytes/100 WBC (Bld) 11.0 % Normal O [facility] Comment on above: Performed By: #### C A, CHM7, IPB, T3RIA, MGO #### [facility] (DEFAULT) [address] [place] [address] 35494 Nucleated RBC 0.0 /100 WBC Normal <=0.2 [facility] Comment on above: Performed By: #### C A, CHM7, IPB, T3RIA, MGO #### [facility] (DEFAULT) [address] [place] [address] 83077 Platelet mean volume (Bld) [Entitic vol] 10.1 fL Normal 8.7-12.3 [facility] Comment on above: Performed By: #### C A, CHM7, IPB, T3RIA, MGO #### [facility] (DEFAULT) [address] [place] [address] 41097 Platelets (Bld) [#/Vol] 155 10*3/uL Normal 146-337 [facility] Comment on above: Performed By: #### C A, CHM7, IPB, T3RIA, MGO #### [facility] (DEFAULT) [address] [place] [address] 65768 RBC (Bld) [#/Vol] 2.88 10*6/uL Low 4.38-5.83 [facility] Comment on above: Performed By: #### C A, CHM7, IPB, T3RIA, MGO #### [facility] (DEFAULT) [address] [place] [address] 50857 RBC Distribution 13.1 % Normal 10.9-14.3 [facility] Comment on above: Performed By: #### C A, CHM7, IPB, T3RIA, MGO #### [facility] (DEFAULT) [address] [place] [address] 29399 Segs + Bands Auto 74.2 % Normal [facility] Comment on above: Performed By: #### C Kelly, CHM7, IPB, T3RIA, MGO #### [facility] (DEFAULT) [address] [place] [address] 51893 Segs + Bands,Absolute Auto 4.47 K/uL Normal 1.57-6.19 [facility] Comment on above: Performed By: #### Antoine Mendoza, CHM7, IPB, T3RIA, MGO #### [facility] (DEFAULT) [address] [place] [address] 59015 WBC (Bld) [#/Vol] 6.02 10*3/uL Normal 3.73-10.10 [facility] Comment on above: Performed By: #### Antoine A, CHM7, IPB, T3RIA, MGO #### [facility] (DEFAULT) [address] [place] [address] 03946 COMPREHENSIVE METABOLIC PANE [facility] 05-21-2025 Albumin [Mass/Vol] 4.4 g/dL 3.5 - 5.0 g/dL [facility] ALP [Catalytic activity/Vol] 93 U/L 32 - 126 U/L [facility] ALT [Catalytic activity/Vol] 19 U/L 10 - 52 U/L [facility] Anion gap [Moles/Vol] 11 mmol/L 7 - 17 mmol/L [facility] AST [Catalytic activity/Vol] 19 U/L 10 - 39 U/L [facility] Bilirubin [Mass/Vol] 0.7 mg/dL NINF - 1.5 mg/dL [facility] Calcium [Mass/Vol] 9.7 mg/dL 8.6 - 10. 5 mg/dL [facility] Chloride [Moles/Vol] 105 mmol/L 98 - 10 8 mmol/L [facility] CO2 [Moles/Vol] 29 mmol/L 21 - 31 mmol/L [facility] Creatinine [Mass/Vol] 1.67 mg/dL High 0.70 - 1.30 mg/dL [facility] eGFR, CKD-EPI, Male 39 Low - PINF [facility] Comment on above: Reported eGFR is bas ed on the CKD-EPI 2020 equation using creatinine, age, and sex. Glucose [Mass/Vol] 111 mg/dL 70 - 179 mg/dL [facility] Osmolality Calc [Osmolality] 300 [facility] Potassium [Moles/Vol] 3.7 mmol/L 3.5 - 5.0 mmol/L [facility] Protein [Mass/Vol] 6.9 g/dL 6.4 - 8.3 g/dL [facility] Sodium [Moles/Vol] 141 mmol/L 135 - 145 mmol/L [facility] Urea nitrogen [Mass/Vol] 27 mg/dL High 7 - 25 mg/dL [facility] Urea nitrogen/Creatinine [Mass ratio] 16 mg/mg [facility] Albumin [Mass/Vol] 4.4 g/dL Normal 3.5-5.0 [facility] Comment on above: Performed By: #### C Kelly, CHM7, IPB, T3RIA, MGO #### [facility] (DEFAULT) [address] [place] [address] 48805 ALP [Catalytic activity/Vol] 93 U/L Normal 32-126 [facility] Comment on above: Performed By: #### C A, CHM7, IPB, T3RIA, MGO #### [facility] (DEFAULT) [address] [place] [address] ALT [Catalytic activity/Vol] 19 U/L Normal 10-52 [facility] Comment on above: Performed By: #### C A, CHM7, IPB, T3RIA, MGO #### [facility] (DEFAULT) [address] [place] [address] 79300 Anion gap [Moles/Vol] 11 mmol/L Normal 7-17 [facility] Comment on above: Performed By: #### C A, CHM7, IPB, T3RIA, MGO #### [facility] (DEFAULT) [address] [place] [address] 87110 AST [Catalytic activity/Vol] 19 U/L Normal 10-39 [facility] Comment on above: Performed By: #### C A, CHM7, IPB, T3RIA, MGO #### [facility] (DEFAULT) [address] [place] [address] 17489 Bilirubin [Mass/Vol] 0.7 mg/dL Normal <1.5 [facility] Comment on above: Performed By: #### C A, CHM7, IPB, T3RIA, MGO #### [facility] (DEFAULT) [address] [place] [address] 93908 Calcium [Mass/Vol] 9.7 mg/dL Normal 8.6-10.5 [facility] Comment on above: Performed By: #### C A, CHM7, IPB, T3RIA, MGO #### [facility] (DEFAULT) [address] [place] [address] 65808 Chloride [Moles/Vol] 105 mmol/L Normal 98-108 [facility] Comment on above: Performed By: #### C A, CHM7, IPB, T3RIA, MGO #### [facility] (DEFAULT) [address] [place] [address] 77772 CO2 [Moles/Vol] 29 mmol/L Normal 21-31 [facility] Comment on above: Performed By: #### C A, CHM7, IPB, T3RIA, MGO #### [facility] (DEFAULT) [address] [place] [address] 25143 Creatinine [Mass/Vol] 1.67 mg/dL High 0.70-1.30 [facility] Comment on above: Performed By: #### C A, CHM7, IPB, T3RIA, MGO #### [facility] (DEFAULT) [address] [place] [address] 89705 GFR/1.73 sq M.predicted among non-blacks MDRD (S/P/Bld) [Vol rate/Area] 39 mL/min/{1.73_m2} Low >=60 [facility] Comment on above: Result Comment: Repo rted eGFR is based on the CKD-EPI 2020 equation using creatinine, age, and sex. Performed By: #### C Kelly, CHM7, IPB, T3RIA, MGO #### [facility] (DEFAULT) [address] [place] [address] 34812 Glucose [Mass/Vol] 111 mg/dL Normal Nonfastin -179 mg/dL; Fastin-99 [facility] Comment on above: Performed By: #### Antoine Mendoza, CHM7, IPB, T3RIA, MGO #### [facility] (DEFAULT) [address] [place] [address] 10644 Osmolality [Osmolality] 300 mosm/kg Normal 278-305 [facility] Comment on above: Performed By: #### Antoine A, CHM7, IPB, T3RIA, MGO #### [facility] (DEFAULT) [address] [place] [address] 19627 Potassium [Moles/Vol] 3.7 mmol/L Normal 3.5-5.0 [facility] Comment on above: Performed By: #### Antoine Mendoza, CHM7, IPB, T3RIA, MGO #### [facility] (DEFAULT) [address] [place] [address] 77857 Protein [Mass/Vol] 6.9 g/dL Normal 6.4-8.3 [facility] Comment on above: Performed By: #### C A, CHM7, IPB, T3RIA, MGO #### [facility] (DEFAULT) [address] [place] [address] 10593 Sodium [Moles/Vol] 141 mmol/L Normal 135-145 [facility] Comment on above: Performed By: #### C A, CHM7, IPB, T3RIA, MGO #### [facility] (DEFAULT) [address] [place] [address] Urea nitrogen [Mass/Vol] 27 mg/dL High 7-25 [facility] Comment on above: Performed By: #### C A, CHM7, IPB, T3RIA, MGO #### [facility] (DEFAULT) [address] [place] [address] Urea nitrogen/Creatinine [Mass ratio] 16 mg/mg Normal [facility] Comment on above: Performed By: #### C A, CHM7, IPB, T3RIA, MGO #### [facility] (DEFAULT) [address] [place] [address] 01917 LACTATE DEHYDROGENASEon 05-04 LDH Lactate to pyruvate reaction [Catalytic activity/Vol] 235 U/L High 100 - 190 U/L [facility] LD Total 235 U/L High 100-190 [facility] Comment on above: Performed By: #### C A, CHM7, IPB, T3RIA, MGO #### [facility] (DEFAULT) [address] [place] [address] 86376 No Panel Informationon 05-21 Interpretation and review of laboratory results Abnormal [facility] T4 FREEon 05-21-2025 Free T4 [Mass/Vol] 1.28 ng/dL 0.89 - 1. 76 ng/dL [facility] Interpretation and review of laboratory results Normal [facility] Free T4 [Mass/Vol] 1.28 ng/dL Normal 0.89-1.76 [facility] Comment on above: Performed By: #### C A, CHM7, IPB, T3RIA, MGO #### [facility] (DEFAULT) [address] [place] [address] 68988 TSHon 05-21-2025 Interpretation and review of laboratory results Normal [facility] TSH Qn 0.959 m[IU]/L [facility] TSH 0.959 uIU/mL Normal 0.550-4.780 [facility] Comment on above: Performed By: #### C A, CHM7, IPB, T3RIA, MGO #### [facility] (DEFAULT) [address] [place] [address] Telephoneon 05-21-2025 Telephone [id number] Sebastian Hannon 1935 M Date Provider Department Center 05/21/2025 Madonna5-SANG [facility] Family History Problem Relation Age of Onset Other Mother Coronary artery disease Father Family Status - Relation Status Age at Mother Father Normal [facility] Orders Onlyon 05-18-2025 Orders Only [id number] Sebastian Hannon 1935 M Date Provider Department Center 05/18/2025 241-RENEE JUDGE HVC CARD [facility] Family History Problem Relation Age of Onset Other Mother Coronary artery disease Father Family Status - Relation Status Age at Mother Father Normal [facility] SURG PATH REQUESTon 05-16-20 Case Report Normal [facility] Comment on above: Result Comment: Surg ical Pathology Report Case: [id number] Authorizing Provider: Duglas Walsh MD, PhD Collected: 05/16/2025 10:17 AM Ordering Location: Dermatopathology Received: 05/16/2025 10:18 AM [facility] Pathologist: Hilario Elias MD Specimen: SURG PATH, SKIN, LEFT INFERIOR MEDIAL UPPER BACK Performed By: #### S URGP #### [facility] (DEFAULT) [address] [place] [id number] Clinical History Morphology: 1.4 cm. DDX: Neoplasm of uncertain behavior vs. squamous cell carcinoma vs. basal cell carcinoma Normal [facility] Comment on above: Performed By: #### S URGP #### [facility] (DEFAULT) [address] [address] Diagnosis Comments A review of the medical record was performed including imaging reports, serology, clinical notes, operative report, and the outside report on the referred material. These findings were correlated with the histologic diagnosis of the current specimen. [facility] Comment on above: Performed By: #### S URGP #### [facility] (DEFAULT) [address] [address] Gross Description [facility] Comment on above: Result Comment: Subm itted from [facility], [address] [place] [address], are three slides labeled [id number] (SLIDE A-1, SOX10, PRAME). An identifying pathology report is included. Outside materials returned in 60 days under separate cover with our number recorded on them. Grosser for this case was: Bibi Ogden Performed By: #### S URGP #### [facility] (DEFAULT) [address] [place] [address] 22763 Microscopic Description A. Histologic sections show a proliferation of atypical melanocytes in the epidermis and dermis. The junctional component is asymmetrical and poorly circumscribed with architectural disturbance, focal consumption of the epidermis, pagetoid spread of melanocytes, confluent growth of nests of melanocytes with variable size and shape. The dermal component is present in large aggregates without maturation and tumor cells have abundant cytoplasm, nuclear pleomorphism and prominent nucleoli. Immunohistochemical stains provided by the referring institution were reviewed independently and demonstrate the following: A SOX-10 immunostain (with appropriate controls) highlights melanocyte distribution and supports the above diagnosis. PRAME is positive. [facility] Comment on above: Performed By: #### S URGP #### [facility] (DEFAULT) [address] [address] Pathologic Diagnosis [facility] Comment on above: Result Comment: OUTS JULIO SLIDES: [id number] (03/28/2025) A. Skin, left inferior medial upper back, shave: Melanoma, see synoptic report. at 1726 EDT Performed By: #### S URGP #### [facility] (DEFAULT) [address] [place] [address] 36876 Professional Interpretation Performed at: [facility] Comment on above: Result Comment: [facility] For Immediate Release to Patient's MyChart? Yes [address] [facility], [address] [place] [address] Performed By: #### S URGP #### [facility] (DEFAULT) [address] [place] [address] 91407 Synoptic Checklist Normal [facility] Comment on above: Result Comment: INVA SIVE MELANOMA OF THE SKIN: Biopsy INVASIVE MELANOMA OF THE SKIN: BIOPSY - All Specimens 8th Edition - Protocol posted: 09/15/2023 SPECIMEN Procedure: Biopsy, shave Specimen Laterality: Left TUMOR Tumor Site: Skin of trunk: inferior medial upper back Histologic Type: Low-cumulative sun damage (CSD) melanoma (including superficial spreading melanoma) Maximum Tumor (Breslow) Thickness (Millimeters): 3.5 mm Ulceration: Not identified Anatomic (Ho) Level: IV (melanoma invades reticular dermis) Mitotic Rate: 10 mitoses per mm2 Microsatellite(s): Not identified Lymphatic and / or Vascular Invasion: Not identified Neurotropism: Not identified Tumor-Infiltrating Lymphocytes: Present, non-brisk Tumor Regression: Not identified MARGINS Margin Status for Invasive Melanoma: Invasive melanoma present at margin Margin(s) Involved by Invasive Melanoma: Peripheral Margin(s) Involved by Invasive Melanoma: Deep Margin Status for Melanoma In Situ: Melanoma in situ present at margin Margin(s) Involved by Melanoma In Situ: Peripheral pTMN CLASSIFICATION (AJCC 8th Edition) Reporting of pT category is based on information available to the pathologist at the time the report is issued. As per the AJCC (Chapter 1, 8th Ed.) it is the managing physician's responsibility to establish the final pathologic stage based upon all pertinent information, including but potentially not limited to this pathology report. pT Category: pT3a Performed By: #### S URGP #### [facility] (DEFAULT) [address] [place] [address] 91862 Case Report Normal [facility] Comment on above: Result Comment: Surg ical Pathology Report Case: [id number] Authorizing Provider: Duglas Walsh MD, PhD Collected: 05/16/2025 09:39 AM Ordering Location: Dermatopathology Received: 05/16/2025 09:39 AM [facility] Pathologist: Hilairo Elias MD Specimen: SURG PATH, SKIN, RIGHT SUPERIOR FOREHEAD Performed By: #### C A, CHM7, IPB, T3RIA, MGO #### [facility] (DEFAULT) [address] [place] [address] 77828 Clinical History B. 1.3 cm plaque, Neoplasm of uncertain behavior vs. basal cell carcinoma Normal [facility] Comment on above: Performed By: #### C A, CHM7, IPB, T3RIA, MGO #### [facility] (DEFAULT) [address] [place] [address] 96895 Diagnosis Comments A review of the medical record was performed including imaging reports, serology, clinical notes, operative report, and the outside report on the referred material. These findings were correlated with the histologic diagnosis of the current specimen. [facility] Comment on above: Performed By: #### C A, CHM7, IPB, T3RIA, MGO #### [facility] (DEFAULT) [address] [place] [address] 30[address] Gross Description Normal [facility] Comment on above: Result Comment: Subm itted from [facility], [address] [place] [address], are two slides labeled [id number] (B H&E, B SOX10). An identifying pathology report is included. Outside materials returned in 60 days under separate cover with our number recorded on them. Grosser for this case was: Bibi Ogden Performed By: #### C A, CHM7, IPB, T3RIA, MGO #### [facility] (DEFAULT) [address] [place] [address] 71664 Microscopic Description A. Histologic sections show a proliferation of atypical melanocytes in the epidermis and dermis. The junctional component is asymmetrical and poorly circumscribed with architectural disturbance, focal consumption of the epidermis, pagetoid spread of melanocytes, confluent growth of nests of melanocytes with variable size and shape. The dermal component is present in large aggregates without maturation and tumor cells have abundant cytoplasm, nuclear pleomorphism and prominent nucleoli. Immunohistochemical stains provided by the referring institution were reviewed independently and demonstrate the following: A SOX-10 immunostain (with appropriate controls) highlights melanocyte distribution and supports the above diagnosis. [facility] Comment on above: Performed By: #### C A, CHM7, IPB, T3RIA, MGO #### [facility] (DEFAULT) [address] [place] [address] Pathologic Diagnosis [facility] Comment on above: Result Comment: OUTS JULIO SLIDES: [id number] (08/31/2025) B. Skin, right superior forehead, shave: Melanoma, see synoptic report. at 1724 EDT Performed By: #### C A, CHM7, IPB, T3RIA, MGO #### [facility] (DEFAULT) [address] [place] [address] Professional Interpretation Performed at: [facility] Comment on above: Result Comment: [facility] For Immediate [facility] [address] [facility], [address] [place] [address] Performed By: #### C A, CHM7, IPB, T3RIA, MGO #### [facility] (DEFAULT) [address] [place] [address] Synoptic Checklist [facility] Comment on above: Result Comment: INVA SIVE MELANOMA OF THE SKIN: Biopsy INVASIVE MELANOMA OF THE SKIN: BIOPSY - All Specimens 8th Edition - Protocol posted: 09/15/2023 SPECIMEN Procedure: Biopsy, shave Specimen Laterality: Right TUMOR Tumor Site: Skin of other and unspecified parts of face: superior forehead Histologic Type: Low-cumulative sun damage (CSD) melanoma (including superficial spreading melanoma) Maximum Tumor (Breslow) Thickness (Millimeters): 1.9 mm Ulceration: Not identified Anatomic (Ho) Level: IV (melanoma invades reticular dermis) Mitotic Rate: 3 mitoses per mm2 Microsatellite(s): Not identified Lymphatic and / or Vascular Invasion: Not identified Neurotropism: Not identified Tumor-Infiltrating Lymphocytes: Present, non-brisk Tumor Regression: Not identified MARGINS Margin Status for Invasive Melanoma: Invasive melanoma present at margin Margin(s) Involved by Invasive Melanoma: Deep Margin Status for Melanoma In Situ: Melanoma in situ present at margin Margin(s) Involved by Melanoma In Situ: Peripheral pTMN CLASSIFICATION (AJCC 8th Edition) Reporting of pT category is based on information available to the pathologist at the time the report is issued. As per the AJCC (Chapter 1, 8th Ed.) it is the managing physician's responsibility to establish the final pathologic stage based upon all pertinent information, including but potentially not limited to this pathology report. pT Category: pT2a Performed By: #### C A, CHM7, IPB, T3RIA, MGO #### [facility] (DEFAULT) [address] [place] [address] [id number] TUMOR HOTSPOT MUTATION PANEL , ACCESSIONINGon 05-16-2025 AP BLOCK/SLIDE ID [id number] A2 [facility] Comment on above: Performed By: #### C A, CHM7, IPB, T3RIA, MGO #### [facility] (DEFAULT) [address] [place] [address] 21341 AP SLIDE SCANNED Normal [facility] Comment on above: Performed By: #### C A, CHM7, IPB, T3RIA, MGO #### [facility] (DEFAULT) [address] [place] [address] 27083 APCP HISTOLOGY COMMENTS Normal [facility] Comment on above: Performed By: #### C A, CHM7, IPB, T3RIA, MGO #### [facility] (DEFAULT) [address] [place] [address] 79091 36on 05-15-2025 36 Patient's daughter called back to check status of this message. I read her message from Dr. Kate and told her hydroxychloroquine was not a cardiac medication. Daughter Tricia said she was confused and would speak again with the oncologist. She thinks maybe he was talking about the statin. Tricia will get clarification at his upcoming apt and get back to us if needed. [facility] No Panel Informationon 05-15 HLA ALLELE 1 A*11:01 [facility] HLA ALLELE 2 A*24:02 [facility] HLA INTERPRETATION Negative [facility] Comment on above: Testing performed by SSOP (sequence specific oligonucleotide probe methodology). Additional testing may be performed by SSP (sequence specific primer), and or SBT ( sequence based Typing) methodologies.Some of the reagents used for testing in the Clinical Histocompatibility Laboratory have yet to be approved by the FDA. Our certification by CLIA to perform high complexity tests allows us to use these reagents in the context of a stringent QC program, and obviates the need for FDA approval.Testing performed by the [facility] Clinical Histocompatibility Laboratory. [facility] number: [id number]. CLIA number: [id number], Director: Kieran Pastrana, PhD, F([facility]). 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 Axial whole-head and thin section posterior fossa slices are provided. Reformats: Sagittal and coronal. CONTRAST: iohexol (OMNIPAQUE) 350 MG/ML injection 1-171 mL; Route of Administration: Intravenous; Dose: 75 mL. FINDINGS: Malcolm-white matter differentiation is preserved. No acute large territory infarction is seen. No abnormal contrast enhancement is seen. Patchy periventricular white matter hypoattenuation is noted which is non-specific, but likely due to chronic small vessel ischemic changes. No acute intracranial hemorrhage is seen. No significant mass effect or midline shift. No contrast enhancing mass is identified within the brain parenchyma. Ventricles and sulci are enlarged, compatible with brain parenchymal volume loss. Skull appears intact. Visualized orbits appear normal. Visualized paranasal sinuses show scattered mucosal thickening. Soft tissue lesions at the left ethmoid/sphenoid sinus junction and the right preauricular region are again visualized concerning for metastasis. The left sinus lesion contains punctate areas of hyperdensity, possibly calcifications or components of the sinus wall. Both lesions stable in size since PET CT April 18, 2025 and demonstrated to be hypermetabolic. Mastoid air cells demonstrate slight amount of dependent opacification bilaterally. Atherosclerotic calcifications of the major arteries at the skull base are noted. IMPRESSION: 1. Redemonstration of focal lesions involving the left sphenoid/ethmoid sinuses as well as the right preauricular soft tissues concerning for metastases given hypermetabolic activity on prior PET/CT. 2. No evidence of cerebral metastasis. I personally viewed and interpreted these images and I have reviewed and approved this report. Normal [facility] CT Head WO and W contrast IV on 05-11-2025 IMPRESSION: 1. Redemonstration of focal lesions involving the left sphenoid/ethmoid sinuses as well as the right preauricular soft tissues concerning for metastases given hypermetabolic activity on prior PET/CT. 2. No evidence of cerebral metastasis. I personally viewed and interpreted these images and I have reviewed and approved this report. 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 Axial whole-head and thin section posterior fossa slices are provided. Reformats: Sagittal and coronal. CONTRAST: iohexol (OMNIPAQUE) 350 MG/ML injection 1-171 mL; Route of Administration: Intravenous; Dose: 75 mL. FINDINGS: Malcolm-white matter differentiation is preserved. No acute large territory infarction is seen. No abnormal contrast enhancement is seen. Patchy periventricular white matter hypoattenuation is noted which is non-specific, but likely due to chronic small vessel ischemic changes. No acute intracranial hemorrhage is seen. No significant mass effect or midline shift. No contrast enhancing mass is identified within the brain parenchyma. Ventricles and sulci are enlarged, compatible with brain parenchymal volume loss. Skull appears intact. Visualized orbits appear normal. Visualized paranasal sinuses show scattered mucosal thickening. Soft tissue lesions at the left ethmoid/sphenoid sinus junction and the right preauricular region are again visualized concerning for metastasis. The left sinus lesion contains punctate areas of hyperdensity, possibly calcifications or components of the sinus wall. Both lesions stable in size since PET CT April 18, 2025 and demonstrated to be hypermetabolic. Mastoid air cells demonstrate slight amount of dependent opacification bilaterally. Atherosclerotic calcifications of the major arteries at the skull base are noted. 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 Axial whole-head and thin section posterior fossa slices are provided. Reformats: Sagittal and coronal. CONTRAST: iohexol (OMNIPAQUE) 350 MG/ML injection 1-171 mL; Route of Administration: Intravenous; Dose: 75 mL. FINDINGS: Malcolm-white matter differentiation is preserved. No acute large territory infarction is seen. No abnormal contrast enhancement is seen. Patchy periventricular white matter hypoattenuation is noted which is non-specific, but likely due to chronic small vessel ischemic changes. No acute intracranial hemorrhage is seen. No significant mass effect or midline shift. No contrast enhancing mass is identified within the brain parenchyma. Ventricles and sulci are enlarged, compatible with brain parenchymal volume loss. Skull appears intact. Visualized orbits appear normal. Visualized paranasal sinuses show scattered mucosal thickening. Soft tissue lesions at the left ethmoid/sphenoid sinus junction and the right preauricular region are again visualized concerning for metastasis. The left sinus lesion contains punctate areas of hyperdensity, possibly calcifications or components of the sinus wall. Both lesions stable in size since PET CT April 18, 2025 and demonstrated to be hypermetabolic. Mastoid air cells demonstrate slight amount of dependent opacification bilaterally. Atherosclerotic calcifications of the major arteries at the skull base are noted. IMPRESSION IMPRESSION: 1. Redemonstration of focal lesions involving the left sphenoid/ethmoid sinuses as well as the right preauricular soft tissues concerning for metastases given hypermetabolic activity on prior PET/CT. 2. No evidence of cerebral metastasis. I personally viewed and interpreted these images and I have reviewed and approved this report. [facility] Radiology Study observation (narrative) [facility] CT Head WO and W contrast IV Ordered By: Maxi Alejandro on 05-11-2025 [facility] Work Phone: 36on 05-10-2025 36 Phone call from Sebastian's daughter Tricia. Per daughter Laura was seen the oncologist and the oncologist would like Sebastian to be taken off the Hydroxychloroquine or have it greatly reduce due to the type of chemo he's getting the chemo doesn't play well with hydroxychloroquine. Please advise Normal [facility] CBC AND ELECTRONIC DIFFon Basophils (Bld) [#/Vol] K/uL 0.00 - 0.09 K/uL [facility] Basophils/100 WBC (Bld) 0.6 % O [facility] Differential cell count method Nom (Bld) Electronic Differential [facility] Eosinophils (Bld) [#/Vol] 0.11 10*3/uL 0.00 - 0.48 K/uL [facility] Eosinophils/100 WBC (Bld) 2.3 % [facility] Erythrocyte distribution width (RBC) [Ratio] 13.2 % 10.9 - 14.3 % [facility] Hematocrit (Bld) [Volume fraction] 28.1 % Low 39.6 - 48.8 % [facility] Hemoglobin (Bld) [Mass/Vol] 8.9 g/dL Low 13.4 - 16.8 g/dL [facility] Immature granulocytes (Bld) [#/Vol] K/uL NINF - 0.07 K/uL [facility] Immature granulocytes/100 WBC (Bld) 0.4 % [facility] Interpretation and review of laboratory results Abnormal [facility] Lymphocytes (Bld) [#/Vol] 0.76 10*3/uL Low 0.83 - 3.57 K/uL [facility] Lymphocytes/100 WBC (Bld) 16.2 % [facility] MCH (RBC) [Entitic mass] 31 pg 26.1 - 33.3 pg [facility] MCHC (RBC) [Mass/Vol] 31.7 g/dL Low 31.9 - 36.5 g/dL [facility] MCV (RBC) [Entitic vol] 97.9 fL High 79.0 - 94.5 fL [facility] Monocytes (Bld) [#/Vol] 0.56 10*3/uL 0.24 - 0.93 K/uL [facility] Monocytes/100 WBC (Bld) 11.9 % [facility] Neutrophils (Bld) [#/Vol] 3.22 10*3/uL 1.57 - 6.19 K/uL [facility] Nucleated RBC/100 WBC (Bld) [Ratio] 0 % [facility] Platelet mean volume (Bld) [Entitic vol] 9.8 fL 8.7 - 12.3 fL [facility] Platelets (Bld) [#/Vol] 142 10*3/uL Low 146 - 337 K/uL [facility] RBC (Bld) [#/Vol] 2.87 10*6/uL Low [facility] Segmented neutrophils/100 WBC (Bld) 68.6 % [facility] WBC (Bld) [#/Vol] 4.7 10*3/uL 3.73 - 10.10 K/uL [facility] Abs Baso Auto < Normal 0.00-0.09 [facility] Comment on above: Performed By: #### C A, CHM7, IPB, T3RIA, MGO #### [facility] (DEFAULT) [address] [place] [address] 50051 Basophils/100 WBC (Bld) 0.6 % Normal O [facility] Comment on above: Performed By: #### C A, CHM7, IPB, T3RIA, MGO #### [facility] (DEFAULT) [address] [place] [address] 36238 DIFF STATUS Electronic Differential Normal [facility] Comment on above: Performed By: #### C A, CHM7, IPB, T3RIA, MGO #### [facility] (DEFAULT) [address] [place] [address] 38551 Eosinophils (Bld) [#/Vol] 0.11 10*3/uL Normal 0.00-0.48 [facility] Comment on above: Performed By: #### C A, CHM7, IPB, T3RIA, MGO #### [facility] (DEFAULT) [address] [place] [address] 58266 Eosinophils/100 WBC (Bld) 2.3 % Normal [facility] Comment on above: Performed By: #### C A, CHM7, IPB, T3RIA, MGO #### [facility] (DEFAULT) [address] [place] [address] 54521 Hematocrit (Bld) [Volume fraction] 28.1 % Low 39.6-48.8 [facility] Comment on above: Performed By: #### C A, CHM7, IPB, T3RIA, MGO #### [facility] (DEFAULT) [address] [place] [address] 39519 Hemoglobin (Bld) [Mass/Vol] 8.9 g/dL Low 13.4-16.8 [facility] Comment on above: Performed By: #### C A, CHM7, IPB, T3RIA, MGO #### [facility] (DEFAULT) [address] [place] [address] 35091 Immature Grans % 0.4 % Normal [facility] Comment on above: Performed By: #### Antoine Mendoza, CHM7, IPB, T3RIA, MGO #### [facility] (DEFAULT) [address] [place] [address] 00993 Immature Grans Absolute < Normal <=0.07 O [facility] Comment on above: Performed By: #### C Kelly, CHM7, IPB, T3RIA, MGO #### [facility] (DEFAULT) [address] [place] [address] 10629 Lymphocytes (Bld) [#/Vol] 0.76 10*3/uL Low 0.83-3.57 [facility] Comment on above: Performed By: #### Antoine Mendoza, CHM7, IPB, T3RIA, MGO #### [facility] (DEFAULT) [address] [place] [address] 34676 Lymphocytes/100 WBC (Bld) 16.2 % Normal [facility] Comment on above: Performed By: #### Antoine Mendoza, CHM7, IPB, T3RIA, MGO #### [facility] (DEFAULT) [address] [place] [address] 25148 MCV (RBC) [Entitic vol] 97.9 fL High 79.0-94.5 O [facility] Comment on above: Performed By: #### Antoien Mendoza, CHM7, IPB, T3RIA, MGO #### [facility] (DEFAULT) [address] [place] [address] 73598 Mean Cell Hgb 31.0 pg Normal 26.1-33.3 [facility] Comment on above: Performed By: #### C A, CHM7, IPB, T3RIA, MGO #### [facility] (DEFAULT) [address] [place] [address] 85800 Mean Cell Hgb Conc 31.7 g/dL Low 31.9-36.5 [facility] Comment on above: Performed By: #### C A, CHM7, IPB, T3RIA, MGO #### [facility] (DEFAULT) [address] [place] [address] 49527 Monocytes (Bld) [#/Vol] 0.56 10*3/uL Normal 0.24-0.93 [facility] Comment on above: Performed By: #### C A, CHM7, IPB, T3RIA, MGO #### [facility] (DEFAULT) [address] [place] [address] 02681 Monocytes/100 WBC (Bld) 11.9 % Normal O [facility] Comment on above: Performed By: #### C A, CHM7, IPB, T3RIA, MGO #### [facility] (DEFAULT) [address] [place] [address] 60603 Nucleated RBC 0.0 /100 WBC Normal <=0.2 [facility] Comment on above: Performed By: #### C A, CHM7, IPB, T3RIA, MGO #### [facility] (DEFAULT) [address] [place] [address] 40015 Platelet mean volume (Bld) [Entitic vol] 9.8 fL Normal 8.7-12.3 [facility] Comment on above: Performed By: #### C A, CHM7, IPB, T3RIA, MGO #### [facility] (DEFAULT) [address] [place] [address] 06563 Platelets (Bld) [#/Vol] 142 10*3/uL Low 146-337 [facility] Comment on above: Performed By: #### C A, CHM7, IPB, T3RIA, MGO #### [facility] (DEFAULT) [address] [place] [address] 70327 RBC (Bld) [#/Vol] 2.87 10*6/uL Low 4.38-5.83 [facility] Comment on above: Performed By: #### C A, CHM7, IPB, T3RIA, MGO #### [facility] (DEFAULT) [address] [place] [address] 28098 RBC Distribution 13.2 % Normal 10.9-14.3 [facility] Comment on above: Performed By: #### C A, CHM7, IPB, T3RIA, MGO #### [facility] (DEFAULT) [address] [place] [address] 73494 Segs + Bands Auto 68.6 % Normal [facility] Comment on above: Performed By: #### C A, CHM7, IPB, T3RIA, MGO #### [facility] (DEFAULT) [address] [place] [address] 93047 Segs + Bands,Absolute Auto 3.22 K/uL Normal 1.57-6.19 [facility] Comment on above: Performed By: #### C A, CHM7, IPB, T3RIA, MGO #### [facility] (DEFAULT) [address] [place] [address] 18799 WBC (Bld) [#/Vol] 4.70 10*3/uL Normal 3.73-10.10 [facility] Comment on above: Performed By: #### C A, CHM7, IPB, T3RIA, MGO #### [facility] (DEFAULT) [address] [place] [address] 80754 COMPREHENSIVE METABOLIC PANE Huan 05-10-2025 Albumin [Mass/Vol] 4.3 g/dL 3.5 - 5.0 g/dL [facility] ALP [Catalytic activity/Vol] 87 U/L 32 - 126 U/L [facility] ALT [Catalytic activity/Vol] 20 U/L 10 - 52 U/L [facility] Anion gap [Moles/Vol] 9 mmol/L 7 - 17 mmol/L [facility] AST [Catalytic activity/Vol] 19 U/L 10 - 39 U/L [facility] Bilirubin [Mass/Vol] 0.8 mg/dL NINF - 1.5 mg/dL [facility] Calcium [Mass/Vol] 9.7 mg/dL 8.6 - 10. 5 mg/dL [facility] Chloride [Moles/Vol] 105 mmol/L 98 - 10 8 mmol/L [facility] CO2 [Moles/Vol] 32 mmol/L High 21 - 31 mmol/L [facility] Creatinine [Mass/Vol] 1.59 mg/dL High 0.70 - 1.30 mg/dL [facility] eGFR, CKD-EPI, Male 42 Low - PINF [facility] Comment on above: Reported eGFR is bas ed on the CKD-EPI 2020 equation using creatinine, age, and sex. Glucose [Mass/Vol] 104 mg/dL 70 - 179 mg/dL [facility] Osmolality Calc [Osmolality] 301 [facility] Potassium [Moles/Vol] 4.1 mmol/L 3.5 - 5.0 mmol/L [facility] Protein [Mass/Vol] 6.7 g/dL 6.4 - 8.3 g/dL [facility] Sodium [Moles/Vol] 142 mmol/L 135 - 145 mmol/L [facility] Urea nitrogen [Mass/Vol] 23 mg/dL 7 - 25 mg/dL [facility] Urea nitrogen/Creatinine [Mass ratio] 14 mg/mg [facility] Albumin [Mass/Vol] 4.3 g/dL Normal 3.5-5.0 [facility] Comment on above: Performed By: #### U JAMES UCRER #### [facility] (DEFAULT) [address] [place] [address] 72159 ALP [Catalytic activity/Vol] 87 U/L Normal 32-126 [facility] Comment on above: Performed By: #### U LYTR, UCRER #### [facility] (DEFAULT) [address] [place] [address] ALT [Catalytic activity/Vol] 20 U/L Normal 10-52 [facility] Comment on above: Performed By: #### U LYTR, UCRER #### [facility] (DEFAULT) [address] [place] [address] 66869 Anion gap [Moles/Vol] 9 mmol/L Normal 7-17 [facility] Comment on above: Performed By: #### U LYTR, UCRER #### [facility] (DEFAULT) [address] [place] [address] 06649 AST [Catalytic activity/Vol] 19 U/L Normal 10-39 [facility] Comment on above: Performed By: #### U LYTR, UCRER #### [facility] (DEFAULT) [address] [place] [address] 77357 Bilirubin [Mass/Vol] 0.8 mg/dL Normal <1.5 [facility] Comment on above: Performed By: #### U LYTR, UCRER #### [facility] (DEFAULT) [address] [place] [address] 88121 Calcium [Mass/Vol] 9.7 mg/dL Normal 8.6-10.5 [facility] Comment on above: Performed By: #### U LYTR, UCRER #### [facility] (DEFAULT) [address] [place] [address] 14106 Chloride [Moles/Vol] 105 mmol/L Normal 98-108 [facility] Comment on above: Performed By: #### U LYTR, UCRER #### [facility] (DEFAULT) [address] [place] [address] 12509 CO2 [Moles/Vol] 32 mmol/L High 21-31 [facility] Comment on above: Performed By: #### U LYTR, UCRER #### [facility] (DEFAULT) [address] [place] [address] 86845 Creatinine [Mass/Vol] 1.59 mg/dL High 0.70-1.30 [facility] Comment on above: Performed By: #### U LYTR, UCRER #### [facility] (DEFAULT) [address] [place] [address] 01831 GFR/1.73 sq M.predicted among non-blacks MDRD (S/P/Bld) [Vol rate/Area] 42 mL/min/{1.73_m2} Low >=60 [facility] Comment on above: Result Comment: Repo rted eGFR is based on the CKD-EPI 2020 equation using creatinine, age, and sex. Performed By: #### U LYTR, UCRER #### [facility] (DEFAULT) [address] [place] [address] 19251 Glucose [Mass/Vol] 104 mg/dL Normal Nonfastin -179 mg/dL; Fastin-99 [facility] Comment on above: Performed By: #### U LYTR, UCRER #### [facility] (DEFAULT) [address] [place] [address] 61735 Osmolality [Osmolality] 301 mosm/kg Normal 278-305 [facility] Comment on above: Performed By: #### U LYTR, UCRER #### [facility] (DEFAULT) [address] [place] [address] 62424 Potassium [Moles/Vol] 4.1 mmol/L Normal 3.5-5.0 [facility] Comment on above: Performed By: #### U LYTR, UCRER #### [facility] (DEFAULT) [address] [place] [address] 36936 Protein [Mass/Vol] 6.7 g/dL Normal 6.4-8.3 [facility] Comment on above: Performed By: #### U LYTR, UCRER #### [facility] (DEFAULT) [address] [place] [address] 80082 Sodium [Moles/Vol] 142 mmol/L Normal 135-145 [facility] Comment on above: Performed By: #### U LYTR, UCRER #### [facility] (DEFAULT) [address] [place] [address] 51907 Urea nitrogen [Mass/Vol] 23 mg/dL Normal 7-25 [facility] Comment on above: Performed By: #### U JAMES, UCRER #### [facility] (DEFAULT) [address] [place] [address] 99510 Urea nitrogen/Creatinine [Mass ratio] 14 mg/mg Normal [facility] Comment on above: Performed By: #### U JAMES, UCRER #### [facility] (DEFAULT) [address] [place] [address] 10595 HLA SINGLE LOCUSon 5 HLA ALLELE 1 A*11:01 Normal [facility] Comment on above: Order Comment: High resolution HLA-A 02:01 Performed By: #### S URGP #### [facility] (DEFAULT) [address] [address] HLA ALLELE 2 A*24:02 Normal [facility] Comment on above: Order Comment: High resolution HLA-A 02:01 Performed By: #### S URGP #### [facility] (DEFAULT) [address] [address] HLA INTERPRETATION Negative Normal [facility] Comment on above: Order Comment: High resolution HLA-A 02:01 Result Comment: Test ing performed by SSOP (sequence specific oligonucleotide probe methodology). Additional testing may be performed by SSP (sequence specific primer), and or SBT ( sequence based Typing) methodologies.Some of the reagents used for testing in the Clinical Histocompatibility Laboratory have yet to be approved by the FDA. Our certification by CLIA to perform high complexity tests allows us to use these reagents in the context of a stringent QC program, and obviates the need for FDA approval.Testing performed by the [facility] Clinical Histocompatibility Laboratory. [facility] number: [id number]. CLIA number: [id number], Director: Kieran Pastrana, PhD, F([facility]). Performed By: #### S URGP #### [facility] (DEFAULT) [address] [address] LACTATE DEHYDROGENASEon 08-0 7-2025 LDH Lactate to pyruvate reaction [Catalytic activity/Vol] 205 U/L High 100 - 190 U/L [facility] LD Total 205 U/L High 100-190 [facility] Comment on above: Performed By: #### U LYTR, UCRER #### [facility] (DEFAULT) [address] [place] [id number] No Panel Informationon 05-10 Interpretation and review of laboratory results Abnormal [facility] OTHER AP REQUESTon Test Requested Block requested and received from outside facility. Order processed when received. The tissue block(s) was submitted to the [facility] clinical histology laboratory for additional processing and staining. Normal [facility] Comment on above: Performed By: #### C A, CHM7, IPB, T3RIA, MGO #### [facility] (DEFAULT) [address] [place] [address]27 Tissue tested skin biopsy of the inferior back lesion [id number] (BX: 03/28/2025) Normal [facility] Comment on above: Performed By: #### C A, CHM7, IPB, T3RIA, MGO #### [facility] (DEFAULT) [address] [place] [address] 19892 Tumor type Derm Path/Melanoma [facility] Comment on above: Performed By: #### C A, CHM7, IPB, T3RIA, MGO #### [facility] (DEFAULT) [address] [place] [address] 74648 TUMOR HOTSPOT MUTATION PANEL , REQUESTon 05-10-2025 Sendout Result Block requested and received from outside facility. Order processed when received. The tissue block(s) was submitted to the [facility] clinical histology laboratory for additional processing and staining. [facility] Comment on above: Performed By: #### C A, CHM7, IPB, T3RIA, MGO #### [facility] (DEFAULT) [address] [place], [place] [id number] Orders Onlyon 05-08-2025 Orders Only [id number] Sebastian Hannon 1935 M Date Provider Department Center 05/08/20[facility] Family History Problem Relation Age of Onset Other Mother Coronary artery disease Father Family Status - Relation Status Age at Mother Father [facility] SURG PATH REQUESTon 05-08-20 Case Report [facility] Comment on above: Result Comment: Surg ical Pathology Report Case: [id number] Authorizing Provider: Duglas Walsh MD, PhD Collected: 05/08/2025 08:29 AM Ordering Location: Dermatopathology Received: 05/08/2025 08:30 AM [facility] Pathologist: Hilario Elias MD Specimens: A) - SURG PATH, SKIN, RIGHT SCALP B) - SURG PATH, SENTINEL LYMPH NODE, RIGHT INTRAPAROTID C) - SURG PATH, SENTINEL LYMPH NODE, RIGHT INTRAPAROTID Performed By: #### U LYTR, UCRER #### [facility] (DEFAULT) [address] [place] [address] Clinical History 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 These findings were correlated with the histologic diagnosis of the current specimen. [facility] Comment on above: Performed By: #### U LYTR, UCRER #### [facility] (DEFAULT) [address] [place] [address] Gross Description [facility] Comment on above: Result Comment: Rece ived from [facility], [address], [address] [place] [address], are twenty-three slides labeled [id number] (A1-1 H&E through A11-1 H&E, A7 SOX10; B1-1 H&E, B1-2 ADD H&E, B MELAN A, B HMB45, B SOX10, C1-1 H&E, C1-2 ADD H&E, C MELAN A, C HMB45, C SOX10). An identifying pathology report is included. Outside materials returned in 60 days under separate cover with our number recorded on them. Grosser for this case was: Bibi Ogden Performed By: #### U JAMES, UCRER #### [facility] (DEFAULT) [address] [id number] Microscopic Description Normal [facility] Comment on above: Result Comment: A. H istologic sections show a proliferation of atypical melanocytes in the epidermis and dermis. The junctional component is asymmetrical and poorly circumscribed with architectural disturbance, pagetoid spread of melanocytes, confluent growth of nests of melanocytes with variable size and shape. The dermal component is present in large aggregates without maturation and tumor cells have abundant cytoplasm, nuclear pleomorphism and prominent nucleoli. There is an adjacent wound and scar from prior procedure. Immunohistochemical stains provided by the referring institution were reviewed independently and demonstrate the following: A Melan-A immunostain (with appropriate controls) highlights melanocyte distribution and supports the above diagnosis. B-C. Immunohistochemical stains provided by the referring institution were reviewed independently and demonstrate the following: Melan-A, HMB45, and SOX-10 were performed with appropriate controls and highlight tumor cells in the lymph node. Performed By: #### U JAMES, UCRER #### [facility] (DEFAULT) [address] [place], [place] [id number] Pathologic Diagnosis Normal [facility] Comment on above: Result Comment: OUTS JULIO SLIDES: [id number] (10/28/2023) A. Skin, right scalp, long stitch lateral at 9 o'clock and short stitch superior at 12 o'clock, wide local excision: Melanoma, see synoptic report. 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 B. 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 Tumor deposit size: 0.75 mm. Location: subcapsular. Extracapsular extension: not identified. C. Node, sentinel lymph node #2, right intraparotid: Melanoma, metastatic to 1 of 1 lymph node (s) (10/04). Tumor deposit size: 0.90 mm. Location: subcapsular. Extracapsular extension: not identified. at 1409 EDT Performed By: #### U LYWILLIS UCRER #### [facility] (DEFAULT) [address] [place] [address] Professional Interpretation Performed at: Normal [facility] Comment on above: Result Comment: [facility] For Immediate Release to Patient's MyChart? 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) Maximum Tumor (Breslow) Thickness (Millimeters): 1.20 mm Ulceration: Not identified Anatomic (Ho) Level: IV (melanoma invades reticular dermis) Mitotic Rate: None identified Microsatellite(s): Not identified Lymphatic and / or Vascular Invasion: Not identified Neurotropism: Not identified Tumor-Infiltrating Lymphocytes: Not identified Tumor Regression: Not identified MARGINS Margin Status for Melanoma: All margins negative for melanoma Distance from Invasive Melanoma to Peripheral Margin: 20 mm Distance from Invasive Melanoma to Deep Margin: 8 mm Distance from Melanoma In Situ to Peripheral Margin: 16 mm REGIONAL LYMPH NODES Regional Lymph Node Status: : Tumor present in regional lymph node(s) Method of Detection: Immunohistochemical study Method of Detection: H&E stain Total Number of Lymph Nodes with Tumor: 2 Number of [place] Lymph Nodes with Tumor: 2 [place] Site(s) with Tumor: Subcapsular [place] Site(s) with Tumor: Intraparenchymal Size of Largest [place] Node Metastatic Deposit: 0.90 mm Extranodal Extension: Not Identified Matted Nodes: Not identified Total Number of Lymph Nodes Examined (sentinel and non-sentinel): 2 Number of [place] Nodes Examined: 2 pTNM CLASSIFICATION (AJCC 8th Edition) Reporting of pT, pN, and (when applicable) pM categories is based on information available to the pathologist at the time the report is issued. As per the AJCC (Chapter 1, 8th Ed.) it is the managing physician's responsibility to establish the final pathologic stage based upon all pertinent information, including but potentially not limited to this pathology report. Prior Procedure Classification: No information from a prior procedure is included in the classification assigned in this report pT Category: pT2a pN Category: pN2a Performed By: #### U JAMES, LOIS #### [facility] ([facility]) [address] [place] [address] Office Visiton 04-30-2025 Follow-up visit [id number] Sebastian Hannon [address] [facility] Provider Department [place] 04/30/2025 DYLON SALCEDO [facility] Family History Problem Relation Age of Onset Other Mother Coronary artery disease Father Family Status - Relation Status Age at Mother Father Level of Service:86099 [place] OFFICE/OUTPATIENT ESTABLISHED MOD MDM 30 MIN Normal [facility] Capillary blood glucose kumar urement by glucometer (mass/volume)Ordered By: Adilene Weinberg on 04-18-2025 Glucose [Mass/Vol] 96 mg/dL Normal [facility] Comment on above: Random Glucose Refer ence Range is dependent on time and content of last meal. Glucose of more than 200 mg/dL in a nonstressed, ambulatory subject supports the diagnosis of Diabetes Mellitus. Result Comment: [place] om Glucose Reference Range is dependent on time and content of last meal. Glucose of more than 200 mg/dL in a nonstressed, ambulatory subject supports the diagnosis of Diabetes Mellitus. PERFORMED BY: [address] [address] [place] [address] PATHOLOGIST CARTOGRAPHIC ENGINEER ZACHARY HEWITT M.D. Performed By: #### G LUMARCELINO ####Point of Care testing, GLUCOSE POCT GLUCOMETERSon 0 04-18-2025 Glucose [Mass/Vol] 96 mg/dL [facility] Comment on above: Random Glucose Refer ence Range is dependent on time and content of last meal. Glucose of more than 200 mg/dL in a nonstressed, ambulatory subject supports the diagnosis of Diabetes Mellitus. [facility] PET tumor subq tx strat wbon 04-18-2025 PET tumor subq tx strat wb [facility] [place] [address] Nuclear Medicine Report Signed Patient: Sebastian Hannon MR#: [id number] 0 : 1935 Acct:[id number] Age/Sex: 89 / M ADM Date: 04/18/25 Loc: Room: [facility] Attending Dr: Adilene Weinberg MD Copies to: MD Stewart Orona Jeffrey S DO Ordering Provider: Adilene Weinberg MD Date of Service: 04/18/25 PET/PET tumor subq tx strat wb: new positive biopses PET/CT FUSION IMAGING CLINICAL INFORMATION: Melanoma of the the head. New positive biopsies. COMPARISON : 06/30/2024 TECHNIQUE: Noncontrasted CT scan from the base of the skull to the upper thigh followed by PET imaging. Multiplanar PET/CT fusion images. The blood sugar is 96mg/dL. The F-18 FDG amount is 9.6mCi. FINDINGS: LOWER HEAD AND NECK FINDINGS: Anterior to the right ear there is hypermetabolic nodule measuring 11 x 6 mm. Maximal SUV value 6.2. In the posterior left portion of the junction of the left ethmoid sinus and left sphenoid sinus there is hypermetabolic 15 mm soft tissue component with hypermetabolism up to 18.6. In the right side of the neck there is at least 3 hypermetabolic nodules identified. Maximal SUV value 11.1. Associated subcentimeter level 2 lymph nodes identified. In the left portion of the tongue base/vallecula region there is hypermetabolic nodule identified. Maximal SUV value 8.7. Measures less than 1 cm. Associated with secretions. ESOPHAGUS: Esophagus normal course and caliber. HEART: Heart is not enlarged. Normal FDG uptake identified. PERICARDIAL EFFUSION: None CORONARY ARTERY CALCIFICATION: None MEDIASTINUM: The superior portion of the mediastinum there is a subcentimeter lymph nodes identified. At least 2 hypermetabolic with maximal SUV value 9.4. In the right parasternal region there is hypermetabolic focus up to 4.6 SUV. Potential small node identified. This obscured by artifact. In right paraspinal region near the lung base there is hypermetabolic focus with maximal SUV value 3.9. . HILAR REGION: No hilar mass or adenopathy is seen. There is mild hypermetabolism of hilar lymph nodes. The maximal SUV value is less than 2.0 favoring benign etiology. THORACIC AORTA: No thoracic aortic aneurysm or dissection. No atherosclerosis LUNG INTERSTITIUM: No infiltrate or congestion identified. No worrisome regions of lung hypermetabolism identified. PLEURAL EFFUSION No pleural effusion identified. PNEUMOTHORAX: No pneumothorax seen. LUNG NODULE: No lung nodules identified. CHEST WALL: No chest wall abnormality seen. The bony chest intact. LIVER: Throughout the liver there are numerous hypermetabolic nodules identified. The maximal SUV value up to 20.1. Nodules are ill-defined with noncontrasted CT imaging. Potential small hypermetabolic darian hepatis lymph node present. GALLBLADDER: No gallbladder abnormalities identified. BILE DUCTS: No biliary duct dilatation identified. SPLEEN: lateral to the spleen there is a hypermetabolic focus with SUV up to 2.5. PANCREAS: Unremarkable ADRENAL GLANDS: The adrenal glands are unremarkable. KIDNEYS: Unremarkable Asymmetric physiologic uptake of the renal collecting system and ureter is identified. ABDOMINAL AORTA: The abdominal aorta is normal. RETROPERITONEUM: No significant retroperitoneal abnormalities identified. SMALL BOWEL: The small bowel loops are nondistended. APPENDIX: The appendix is normal. COLON: There is no colitis or diverticulitis. There is physiologic uptake identified throughout the colon. The asymmetric uptake can be seen with physiologic uptake. No discrete focal region of hypermetabolism seen to correspond with focal lesion. Correlate with clinical symptomatology. Medial to the left iliac bone adjacent to the sigmoid colon, there is a hypermetabolic focus measuring up to 5.6. URINARY BLADDER: Urinary bladder is unremarkable. There may be physiologic hypermetabolic uptake identified within the urinary bladder. REPRODUCTIVE STRUCTURES: The reproductive structures are unremarkable. FREE AIR: None FREE FLUID: None ABDOMINAL WALL: Unremarkable In the left presacral region, there is a hypermetabolic focus measuring up to 6. PET/PET tumor subq tx strat wb IMPRESSION: Development of numerous hypermetabolic foci throughout the head, neck, chest, abdomen and pelvis and liver. Metastatic focus in the junction between the left ethmoid and sphenoid sinus. Metastatic focus in the right preauricular region and in the right upper jugular lymph nodes. Hypermetabolic metastatic focus in the left tongue base region. Hypermetabolic metastatic focus right parasternal and right paravertebral region. 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 Hypermetabolic focus in the left retroperitoneal region adjacent t (more content not included)... Normal [facility] Surgical pathology studyon 0 04-13-2025 Surgical pathology study Pathology report.total SEE COMMENT Dermatopathology Report Case: [id number] Authorizing Provider: Duglas Busby MD Collected: 04/13/2025 1343 Ordering Location: [facility] Received: 04/13/2025 1343 [facility] Pathologist: Donna Blanchard MD Specimen: OUTSIDE BLOCK(S)/SLIDE(S), 3 SLIDES, [facility], #[id number] (BX: 03/28/2025) Path report.final diagnosis SEE COMMENT 3 SLIDES, [facility], #[id number] (BX: 03/28/2025) SKIN, LEFT INFERIOR MEDIAL UPPER BACK, SHAVE BIOPSY: MALIGNANT MELANOMA, BRESLOW THICKNESS AT LEAST 3.5 MM, PRESENT ON THE DEEP AND PERIPHERAL MARGIN, SEE NOTE. Note: Microscopic examination reveals a specimen that extends into the dermis. There is serum crust and there is a proliferation of nested and single melanocytes along the dermal-epidermal junction and within the dermis. The melanocytes have moderately enlarged nuclei with moderate cytoplasm. They stain with antibodies against SOX-10 and PRAME. Electronically signed out by Donna Blanchard MD at 0827 EDT Synoptic report SEE COMMENT MELANOMA OF THE SKIN: Biopsy MELANOMA OF THE SKIN: BIOPSY - All Specimens 8th Edition - Protocol posted: 12/24/2021 SPECIMEN Procedure: Biopsy, shave Specimen Laterality: Left TUMOR Tumor Site: Skin of trunk: Left inferior medial upper back Histologic Type: Nodular melanoma Maximum Tumor (Breslow) Thickness (Millimeters): At least: 3.5 mm : Broadly transected on the deep margin. Ulceration: Not identified Anatomic (Ho) Level: At least level: IV : Broadly transected on the deep margin. Mitotic Rate: 3 mitoses per mm2 Microsatellite(s): Not identified Lymphovascular Invasion: Not identified Neurotropism: Not identified Tumor-Infiltrating Lymphocytes: Present, nonbrisk Tumor Regression: Not identified MARGINS: Margin Status for Invasive Melanoma: Invasive melanoma present at margin Margin(s) Involved by Invasive Melanoma: Peripheral Margin(s) Involved by Invasive Melanoma: Deep Margin Status for Melanoma in situ: All margins negative for melanoma in situ PATHOLOGIC STAGE CLASSIFICATION (pTNM, AJCC 8th Edition): pT Category: pT3a Path report.relevant Hx SEE COMMENT MORPHOLOGY: 1.4 CM DDX: NEOPLASM OF UNSPECIFIED BEHAVIOR VS. SQUAMOUS CELL CARCINOMA VS. BASAL CELL CARCINOMA Path report.gross observation SEE COMMENT A. OUTSIDE BLOCK(S)/SLIDE(S). Received for consultation from [facility] are three slides labeled #[id number] (BX: 03/28/2025) along with the corresponding pathology report. [facility] Comment on above: Order Comment: Mater ials Received: 3 SLIDES, [facility], #[id number] (BX: 03/28/2025) Alanine aminotransferase [En zymatic activity/volume] in Serum or PlasmaOrdered By: Adilene Weinberg on 04-04-2025 ALT [Catalytic activity/Vol] 23 U/L Normal 7-52 [facility] Comment on above: Performed By: #### C RP, ESR, CBC, LDH, CMP #### [address] Albumin [Mass/volume] in Ser um or Plasma by Bromocresol green (BCG) dye binding methoOrdered By: Adilene Weinberg on 04-04-2025 Albumin BCG dye [Mass/Vol] 4.3 g/dL 3.5-5.7 [facility] Alkaline phosphatase [Enzyma tic activity/volume] in Serum or PlasmaOrdered By: Adilene Weinberg on 04-04-2025 ALP [Catalytic activity/Vol] 77 U/L Normal 34-104 [facility] Comment on above: Performed By: #### C RP, ESR, CBC, LDH, CMP #### [facility] [address] Aspartate aminotransferase [ Enzymatic activity/volume] in Serum or PlasmaOrdered By: Adilene Weinberg on 04-04-2025 AST [Catalytic activity/Vol] 22 U/L Normal 13-39 [facility] Comment on above: Performed By: #### C RP, ESR, CBC, LDH, CMP #### [facility] [address] [place] [address] [place] Basophils [#/volume] in Bloo d by Automated countOrdered By: Adilene Weinberg on 04-04-2025 Basophils (Bld) [#/Vol] 0.0 10*3/uL Normal 0.0-0.2 [facility] Comment on above: Performed By: #### C RP, ESR, CBC, LDH, CMP #### [facility] [address] [place] [address] [place] Basophils/100 leukocytes in Blood by Automated countOrdered By: Adilene Weinberg on 04-04-2025 Basophils/100 WBC (Bld) 0.7 % Normal . [facility] Comment on above: Performed By: #### C RP, ESR, CBC, LDH, CMP #### [facility] [address] [place] [address] [place] Bilirubin.total [Mass/volume ] in Serum or PlasmaOrdered By: Adilene Weinberg on 04-04-2025 Bilirubin [Mass/Vol] 0.7 mg/dL Normal 0.3-1.0 [facility] Comment on above: Performed By: #### C RP, ESR, CBC, LDH, CMP #### [facility] [address] [place] [address] [place] C reactive protein [Mass/vol ume] in Serum or PlasmaOrdered By: Adilene Weinberg on 04-04-2025 CRP [Mass/Vol] < 0.5 mg/dL 0.0-0.5 [facility] C-Reactive Proteinon 025 CRP [Mass/Vol] mg/L Normal 0.0-0.5 [facility] Comment on above: Result Comment: PERF ORMED BY: [place] [address] PATHOLOGIST CARTOGRAPHIC ENGINEER ZACHARY HEWITT M.D. Performed By: #### C RP, ESR, CBC, LDH, CMP #### [address] CRP [Mass/Vol]on 04-04-2025 C-REACTIVE PROTEIN mg/dL 0.0 - 0.5 mg/dL [facility] Calcium [Mass/volume] in Ser um or PlasmaOrdered By: Adilene Weinberg on 04-04-2025 Calcium [Mass/Vol] 9.4 mg/dL Normal 8.6-10.3 [facility] Comment on above: Performed By: #### C RP, ESR, CBC, LDH, CMP #### [address] Carbon dioxide, total [Moles /volume] in Serum or PlasmaOrdered By: Adilene Weinberg on 04-04-2025 CO2 [Moles/Vol] 30.0 mmol/L Normal 21.0-31.0 [facility] Comment on above: Performed By: #### C RP, ESR, CBC, LDH, CMP #### [address] Chloride [Moles/volume] in S boby or PlasmaOrdered By: Adilene Weinberg on 04-04-2025 Chloride [Moles/Vol] 100 mmol/L Normal 98-107 [facility] Comment on above: Performed By: #### C RP, ESR, CBC, LDH, CMP #### [address] Complete Blood Count Auto Di ffon 04-04-2025 Mean Corpuscular HGB Conc 33.6 g/dL Normal 32.5-35.6 [facility] Comment on above: Performed By: #### C RP, ESR, CBC, LDH, CMP #### [address] NRBC% 0.0 /100{WBC} Normal 0-0.5 [facility] Comment on above: Performed By: #### C RP, ESR, CBC, LDH, CMP #### [facility] [address] White Blood Count 5.0 [CFU]/mL Normal 4.1-10.5 [facility] Comment on above: Performed By: #### C RP, ESR, CBC, LDH, CMP #### [facility] [address] Comprehensive Metabolic Pane [facility] 04-04-2025 Albumin [Mass/Vol] 4.3 g/dL Normal 3.5-5.7 [facility] Comment on above: Performed By: #### C RP, ESR, CBC, LDH, CMP #### [address] GFR/1.73 sq M.predicted MDRD (S/P/Bld) [Vol rate/Area] 44.425 mL/min/{1.73_m2} Normal [facility] Comment on above: Performed By: #### C RP, ESR, CBC, LDH, CMP #### [address] Comprehensive metabolic [facility] 04-04-2025 Albumin [Mass/Vol] 4.3 g/dL 3.5 - 5.7 g/dL [facility] Albumin/Globulin [Mass ratio] 2.5 {ratio} [facility] ALP [Catalytic activity/Vol] 77 U/L 34 - 104 U/L [facility] ALT [Catalytic activity/Vol] 23 U/L 7 - 52 U/L [facility] Anion gap [Moles/Vol] 12.3 mmol/L 6.0 - 15.0 [facility] AST [Catalytic activity/Vol] 22 U/L 13 - 39 U/L [facility] Bilirubin [Mass/Vol] 0.7 mg/dL 0.3 - 1 .0 mg/dL [facility] Calcium [Mass/Vol] 9.4 mg/dL 8.6 - 10. 3 mg/dL [facility] Chloride [Moles/Vol] 100 mmol/L 98 - 10 7 mmol/L [facility] CO2 [Moles/Vol] 30 mmol/L 21.0 - 31.0 mmol/L [facility] Creatinine (U) [Mass/Vol] 1.51 mg/dL High 0.70 - 1.30 mg/dL [facility] GFR/1.73 sq M.predicted MDRD (S/P/Bld) [Vol rate/Area] 44.425 mL/min/{1.73_m2} [facility] Globulin (S) [Mass/Vol] 1.7 g/dL N [facility] Glucose [Mass/Vol] 87 mg/dL 70 - 100 mg/dL [facility] Comment on above: Random Glucose Refer ence Range is dependent on time and content of last meal. Glucose of more than 200 mg/dL in a nonstressed, ambulatory subject supports the diagnosis of Diabetes Mellitus. ADA recommended reference range Interpretation and review of laboratory results Abnormal [facility] Potassium [Moles/Vol] 4.3 mmol/L 3.5 - 5.1 mmol/L [facility] Protein [Mass/Vol] 6 g/dL Low 6.4 - 8.9 g/dL [facility] Sodium [Moles/Vol] 138 mmol/L 136 - 145 mmol/L [facility] Urea nitrogen [Mass/Vol] 26 mg/dL High 7 - 25 mg/dL [facility] Creatinine [Mass/volume] in Serum or PlasmaOrdered By: Adilene Weinberg on 04-04-2025 Creatinine [Mass/Vol] 1.51 mg/dL High 0.70-1.30 [facility] Comment on above: Performed By: #### C RP, ESR, CBC, LDH, CMP #### [facility] [address] [place] [address] [place] Eosinophils [#/volume] in Bl ood by Automated countOrdered By: Adilene Weinberg on 04-04-2025 Eosinophils (Bld) [#/Vol] 0.1 10*3/uL Normal 0.0-0.45 [facility] Comment on above: Performed By: #### C RP, ESR, CBC, LDH, CMP #### [facility] [address] [place] [address] [place] Eosinophils/100 leukocytes i n Blood by Automated countOrdered By: Adilene Weinberg on 04-04-2025 Eosinophils/100 WBC (Bld) 2.3 % Normal . [facility] Comment on above: Performed By: #### C RP, ESR, CBC, LDH, CMP #### [facility] [address] Erythrocyte Sedimentation Ra shayy 04-04-2025 ESR (Bld) [Velocity] 17 mm/h Normal 0-19 [facility] Comment on above: Result Comment: PERF ORMED BY: [place] [address] PATHOLOGIST CARTOGRAPHIC ENGINEER ZACHARY HEWITT M.D. Performed By: #### C RP, ESR, CBC, LDH, CMP #### [address] Erythrocyte distribution wid th [Ratio] by Automated countOrdered By: Adilene Weinberg on 04-04-2025 Erythrocyte distribution width (RBC) [Ratio] 14.2 % Normal 12.0-14.8 [facility] Comment on above: Performed By: #### C RP, ESR, CBC, LDH, CMP #### [address] Erythrocyte sedimentation ra te by Photometric methodOrdered By: Maite Wong on 04-04-2025 ESR Photometric method (Bld) [Velocity] 17 mm/hr 0-19 [facility] Erythrocytes [#/volume] in B lood by Automated countOrdered By: Adilene Weinberg on 04-04-2025 RBC (Bld) [#/Vol] 2.72 10*6/uL Low 3.90-5.60 [facility] Comment on above: Performed By: #### C RP, ESR, CBC, LDH, CMP #### [address] Glucose [Mass/volume] in Ser um or PlasmaOrdered By: Adilene Weinberg on 04-04-2025 Glucose [Mass/Vol] 87 mg/dL Normal 70-100 [facility] Comment on above: ADA recommended refe rence rangeRandom Glucose Reference Range is dependent on time and content of last meal. Glucose of more than 200 mg/dL in a nonstressed, ambulatory subject supports the diagnosis of Diabetes Mellitus. Result Comment: [place] Glucose Reference Range is dependent on time and content of last meal. Glucose of more than 200 mg/dL in a nonstressed, ambulatory subject supports the diagnosis of Diabetes Mellitus. ADA recommended reference range Performed By: #### C RP, ESR, CBC, LDH, CMP #### [facility] [address] Hematocrit [Volume Fraction] of Blood by Automated countOrdered By: Adilene Weinberg on 04-04-2025 Hematocrit (Bld) [Volume fraction] 25.9 % Low 38.8-50.0 [facility] Comment on above: Performed By: #### C RP, ESR, CBC, LDH, CMP #### [address] Hemoglobin [Mass/volume] in BloodOrdered By: Adilene Weinberg on 04-04-2025 Hemoglobin (Bld) [Mass/Vol] 8.7 g/dL Low 13.0-17.0 [facility] Comment on above: Performed By: #### C RP, ESR, CBC, LDH, CMP #### [address] LDH Lactate Dehydrogenaseon 04-04-2025 LDH Lactate Dehydrogenase 196 U/L Normal 140-271 [facility] Comment on above: Performed By: #### C RP, ESR, CBC, LDH, CMP #### [address] LDH Lactate to pyruvate reac tion [Catalytic activity/Vol]on 04-04-2025 LDH LACTATE DEHYDROGENASE 196 U/L 140 - 271 U/L [facility] Lactate dehydrogenase [Enzym atic activity/volume] in Serum or Plasma by Lactate to pyOrdered By: Adilene Weinberg on 04-04-2025 LDH Lactate to pyruvate reaction [Catalytic activity/Vol] 196 U/L 140-271 [facility] Leukocytes [#/volume] correc bert for nucleated erythrocytes in Blood by Automated counOrdered By: Adilene Weinberg on 04-04-2025 WBC corrected for nucl RBC Auto (Bld) [#/Vol] 5.0 10*3/uL 4.1-10.5 [facility] Leukocytes [#/volume] in Blo od by Automated countOrdered By: Adilene Weinberg on 04-04-2025 WBC (Bld) [#/Vol] 5.0 10*3/uL Normal 4.1-10.5 [facility] Comment on above: Performed By: #### C RP, ESR, CBC, LDH, CMP #### [address] Lymphocytes [#/volume] in Bl ood by Automated countOrdered By: Adilene Weinberg on 04-04-2025 Lymphocytes (Bld) [#/Vol] 0.6 10*3/uL Low 1.00-4.8 [facility] Comment on above: Performed By: #### C RP, ESR, CBC, LDH, CMP #### [address] Lymphocytes/100 leukocytes i n Blood by Automated countOrdered By: Adilene Weinberg on 04-04-2025 Lymphocytes/100 WBC (Bld) 12.9 % Normal . [facility] Comment on above: Performed By: #### C RP, ESR, CBC, LDH, CMP #### [address] MCH [Entitic mass] by Automa bert countOrdered By: Adilene Weinberg on 04-04-2025 MCH (RBC) [Entitic mass] 32.0 pg Normal 27.5-35.2 [facility] Comment on above: Performed By: #### C RP, ESR, CBC, LDH, CMP #### [address] MCHC Auto (RBC) [Mass/Vol]Or dered By: Adilene Weinberg on 04-04-2025 MCHC (RBC) [Mass/Vol] 33.6 g/dL 32.5-35.6 [facility] MCV [Entitic volume] by Auto mated countOrdered By: Adilene Weinberg on 04-04-2025 MCV (RBC) [Entitic vol] 95.4 fL Normal 83.5-101 [facility] Comment on above: Performed By: #### C RP, ESR, CBC, LDH, CMP #### [facility] [address] [place] [address] [place] Monocytes [#/volume] in Bloo d by Automated countOrdered By: Adilene Weinberg on 04-04-2025 Monocytes (Bld) [#/Vol] 0.6 10*3/uL Normal 0.0-0.8 [facility] Comment on above: Performed By: #### C RP, ESR, CBC, LDH, CMP #### [facility] [address] [place] [address] [place] Monocytes/100 leukocytes in Blood by Automated countOrdered By: Adilene Weinberg on 04-04-2025 Monocytes/100 WBC (Bld) 12.1 % Normal . [facility] Comment on above: Performed By: #### C RP, ESR, CBC, LDH, CMP #### [facility] [address] [place] [address] [place] Neutrophils [#/volume] in Bl ood by Automated countOrdered By: Adilene Weinberg on 04-04-2025 Neutrophils (Bld) [#/Vol] 3.6 10*3/uL Normal 1.8-7.7 [facility] Comment on above: Performed By: #### C RP, ESR, CBC, LDH, CMP #### [facility] [address] [place] [address] Neutrophils/100 leukocytes i n Blood by Automated countOrdered By: Adilene Weinberg on 04-04-2025 Neutrophils/100 WBC (Bld) 72.0 % Normal . [facility] Comment on above: Performed By: #### C RP, ESR, CBC, LDH, CMP #### [address] No Panel Informationon 04-04 [facility] No Panel InformationOrdered By: Adilene Weinberg on 04-04-2025 Estimated GFR (CKD-EPI) 44.425 mL/Min [facility] Creatinine Clearance (Chem N/A [facility] Nucleated erythrocytes [Pres ence] in Blood by Automated countOrdered By: Adilene Weinberg on 04-04-2025 Nucleated RBC Auto Ql (Bld) 0.0 /100{WBC} 0-0.5 [facility] Platelet mean volume [Entiti c volume] in Blood by Automated countOrdered By: Adilene Weinberg on 04-04-2025 Platelet mean volume (Bld) [Entitic vol] 8.5 fL Normal 6.6-10.1 [facility] Comment on above: Performed By: #### C RP, ESR, CBC, LDH, CMP #### [facility] [address] Platelets [#/volume] in Bloo d by Automated countOrdered By: Adilene Weinberg on 04-04-2025 Platelets (Bld) [#/Vol] 129 10*3/uL Low 150-450 [facility] Comment on above: Performed By: #### C RP, ESR, CBC, LDH, CMP #### [address] Potassium [Moles/volume] in Serum or PlasmaOrdered By: Adilene Weinberg on 04-04-2025 Potassium [Moles/Vol] 4.3 mmol/L Normal 3.5-5.1 [facility] Comment on above: Performed By: #### C RP, ESR, CBC, LDH, CMP #### [address] Protein [Mass/volume] in Ser um or PlasmaOrdered By: Adilene Weinberg on 04-04-2025 Protein [Mass/Vol] 6.0 g/dL Low 6.4-8.9 [facility] Comment on above: Performed By: #### C RP, ESR, CBC, LDH, CMP #### [address] Serum globulin measurement b y calculation (mass/volume)Ordered By: Adilene Weinberg on 04-04-2025 Globulin (S) [Mass/Vol] 1.7 g/dL Normal [facility] Comment on above: Performed By: #### C RP, ESR, CBC, LDH, CMP #### [address] Serum or plasma albumin/glob ulin mass ratioOrdered By: Adilene Weinberg on 07-02-2025 Albumin/Globulin [Mass ratio] 2.5 {ratio} Normal [facility] Comment on above: Performed By: #### C RP, ESR, CBC, LDH, CMP #### [facility] [address] Serum or plasma anion gap de terminationOrdered By: Adilene Weinberg on 04-04-2025 Anion gap [Moles/Vol] 12.3 mmol/L Normal 6.0-15.0 [facility] Comment on above: Performed By: #### C RP, ESR, CBC, LDH, CMP #### [facility] [address] Sodium [Moles/volume] in Ser um or PlasmaOrdered By: Adilene Weinberg on 04-04-2025 Sodium [Moles/Vol] 138 mmol/L Normal 136-145 [facility] Comment on above: Performed By: #### C RP, ESR, CBC, LDH, CMP #### [facility] [address] Urea nitrogen [Mass/volume] in Serum or PlasmaOrdered By: Adilene Weinberg on 04-04-2025 Urea nitrogen [Mass/Vol] 26 mg/dL High 7-25 [facility] Comment on above: Performed By: #### C RP, ESR, CBC, LDH, CMP #### [facility] [address] Estimated glomerular filtrat ion rate (GFR) non- AmericanOrdered By: Dylon Kate on 03-28-2025 GFR/1.73 sq M.predicted among non-blacks MDRD (S/P/Bld) [Vol rate/Area] 46 mL/min/{1.73_m2} Low >=60 mL/min/1.73 m 2 [facility] Laboratory - Chemistry and C hemistry - challengeOrdered By: Dylon Kate on 03-28-2025 Calcium [Mass/Vol] 9.4 mg/dL 8.5-10.1 [facility] Chloride [Moles/Vol] 103 mmol/L 98-107 [facility] CO2 [Moles/Vol] 27.0 mmol/L 21.0-32.0 [facility] Creatinine [Mass/Vol] 1.46 mg/dL High 0.70-1.30 [facility] GFR/1.73 sq M.predicted MDRD (S/P/Bld) [Vol rate/Area] 55 mL/min/{1.73_m2} Low >=60 mL/min/1.73 m 2 [facility] Glucose [Mass/Vol] 93 mg/dL 74-106 [facility] Potassium [Moles/Vol] 3.9 mmol/L 3.5-5.1 [facility] Sodium [Moles/Vol] 141 mmol/L 136-145 [facility] Urea nitrogen [Mass/Vol] 31.0 mg/dL High 7.0-18.0 [facility] Urea nitrogen/Creatinine [Mass ratio] 21.2 mg/mg [facility] Serum or plasma anion gap de terminationOrdered By: Dylon Kate on 03-28-2025 Anion gap [Moles/Vol] 14.9 mmol/L [facility] Follow-Upon 03-14-2025 Follow-Up [id number] Sebastian Hannon 1935 M Date Provider Department Center 03/14/2025 DYLON SALCEDO [facility] Family History Problem Relation Age of Onset Other Mother Coronary artery disease Father Family Status - Relation Status Age at Mother Father Level of Service:[address] [place] OFFICE/OUTPATIENT ESTABLISHED MOD MDM 30 MIN Normal [facility] Orders Onlyon 03-12-2025 Orders Only [id number] Sebastian Hannon 1935 M Date Provider Department Center 03/12/2025 [facility]og[facility] Family History Problem Relation Age of Onset Other Mother Coronary artery disease Father Family Status - Relation Status Age at Mother Father Normal [facility] Estimated glomerular filtrat ion rate (GFR) non- Americanon 03-09-2025 GFR/1.73 sq M.predicted among non-blacks MDRD (S/P/Bld) [Vol rate/Area] 33 mL/min/{1.73_m2} Low >=60 mL/min/1.73 m 2 [facility] Laboratory - Chemistry and C hemistry - challengeon 03-09-2025 Calcium [Mass/Vol] 9.4 mg/dL 8.5-10.1 [facility] Chloride [Moles/Vol] 102 mmol/L 98-107 [facility] CO2 [Moles/Vol] 31.7 mmol/L 21.0-32.0 [facility] Creatinine [Mass/Vol] 1.96 mg/dL High 0.70-1.30 [facility] GFR/1.73 sq M.predicted MDRD (S/P/Bld) [Vol rate/Area] 39 mL/min/{1.73_m2} Low >=60 mL/min/1.73 m 2 [facility] Glucose [Mass/Vol] 98 mg/dL 74-106 [facility] Magnesium [Mass/Vol] 1.8 mg/dL 1.8-2.4 [facility] Potassium [Moles/Vol] 3.9 mmol/L 3.5-5.1 [facility] Sodium [Moles/Vol] 142 mmol/L 136-145 [facility] Urea nitrogen [Mass/Vol] 38.0 mg/dL High 7.0-18.0 [facility] Urea nitrogen/Creatinine [Mass ratio] 19.4 mg/mg [facility] Serum or plasma anion gap de terminationon 03-09-2025 Anion gap [Moles/Vol] 12.2 mmol/L [facility] HPon 03-01-2025 HP History Of Present Illness Sebastian Hannon is a 89 y.o. male presenting for planned cardiac catheterization procedure. 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 He has a history of coronary artery disease status post bypass surgery in the past [OLGUIN to LAD, saphenous vein graft to [id number] and 2nd obtuse marginal branch, saphenous venous graft to PDA]. In 2018 he underwent stenting of the LAD. His OLGUIN to LAD was not found to be atretic. 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 He was evaluated in clinic in 01/24/2025 due to having evidence of severe pulmonary hypertension by echocardiography on repeated testing. He reports that he has mild shortness of breath on exertion NYHA class II symptoms. He has bilateral lower extremity edema worse on the left. Recent duplex ruled out DVT. Recently his furosemide was increased but he did not have any response to that. Past Medical History He has a past [...] that he does not use drugs. Allergies Latex and Penicillins Medications Medications Prior to Admission Medication Sig Dispense Refill Last Dose alfuzosin (Uroxatral) 10 mg 24 hr tablet Take 1 tablet by mouth in the morning. 02/28/2025 amLODIPine (Norvasc) 2.5 mg tablet Take 2.5 mg by mouth in the morning. 02/28/2025 atorvastatin (Lipitor) 40 mg tablet Take 1 tablet (40 mg) by mouth in the morning. 90 tablet 3 02/28/2025 cholecalciferol (D3-5) 5,000 Units tablet Take 1 tablet every other day by oral route. 02/28/2025 ferrous sulfate 325 (65 Fe) MG tablet Take 65 mg by mouth with breakfast. 02/28/2025 fexofenadine (Nikunj) 180 mg tablet Take 180 mg by mouth in the morning. 02/28/2025 finasteride (Proscar) 5 mg tablet Take 1 tablet by mouth in the morning. 02/28/2025 furosemide (Lasix) 40 mg tablet Take 1 tablet (40 mg) by mouth in the morning. 90 tablet 3 02/28/2025 hydroxychloroquine (Plaquenil) 200 mg tablet Take 200 mg by mouth 1 (one) time each day. 02/28/2025 losartan (Cozaar) 50 mg tablet Take 1 tablet (50 mg) by mouth in the morning. 90 tablet 3 02/28/2025 metoprolol succinate XL (Toprol-XL) 50 mg 24 hr tablet Take 1.5 tablets (75 mg) by mouth in the morning. 45 tablet 3 02/28/2025 spironolactone (Aldactone) 25 mg tablet Take 1 tablet by mouth in the morning. 02/28/2025 warfarin (Coumadin) 5 mg tablet TAKE 1 TO 1 & 1/2 (ONE TO ONE & ONE-HALF) TABLETS BY MOUTH ONCE DAILY DIRECTED 135 tablet 0 02/28/2025 furosemide (Lasix) 20 mg tablet Take 1 tablet (20 mg) by mouth in the morning. (Patient not taking: Reported on 03/01/2025) 90 tablet 3 Not Taking furosemide (Lasix) 40 mg tablet Take 1 tablet (40 mg) by mouth in the morning. 90 tablet 3 leflunomide (Arava) 20 mg tablet Take 1 tablet by mouth every other day. Not Taking nitroglycerin (Nitrostat) 0.[address] by sublingual route as needed for 10 days. Unknown Review of Systems 12 point ROS negative except as in HPI Physical Exam Constitutional: Appearance: He is well-developed. [...] person, place, and time. Psychiatric: Mood and A (more content not included)... Normal [facility] NURSNOTEon 03-01-2025 NURSNOTE RN educated pt on d/ c instructions. This included: site care, limited physical activity, resume normal diet, future appointments, medications, and moderate sedation instructions. RN educated pt on when to notify physician and when to go to the hospital. RN encouraged pt to voice any questions or concerns, and answered any questions or concerns if pt verbalized. Pt was wheeled off of unit with all of belongings. [facility] Orders Onlyon 02-09-2025 Orders Only [id number] Sebastian Hannon 1935 M Date Provider Department Center 02/09/2025 RENEE SMALLS [facility] Family History Problem Relation Age of Onset Other Mother Coronary artery disease Father Family Status - Relation Status Age at Mother Father Normal [facility] Basophils Auto (Bld) [#/Vol] on 01-26-2025 Basophils (Bld) [#/Vol] 0.0 10 3/uL 0.0-0.1 [facility] Basophils/100 WBC Auto (Bld) on 01-26-2025 Basophils/100 WBC (Bld) 0.7 % 0.2-2.0 [facility] Eosinophils/100 WBC Auto (Bl d)on 01-26-2025 Eosinophils/100 WBC (Bld) 1.8 % 0.9-7.0 [facility] Erythrocyte distribution wid th Auto (RBC) [Ratio]on 01-26-2025 Erythrocyte distribution width (RBC) [Ratio] 13.5 % 11.0-15.0 [facility] Hematocrit Auto (Bld) [Volum e fraction]on 01-26-2025 Hematocrit (Bld) [Volume fraction] 27.8 % Low 42.0-54.0 [facility] Hemoglobin [Mass/volume] in Bloodon 01-26-2025 Hemoglobin (Bld) [Mass/Vol] 9.2 g/dL Low 14.0-18.0 [facility] Laboratory - Hematology and Cell countson 01-26-2025 Immature granulocytes/100 WBC (Bld) 0.2 % 0.0-0.5 [facility] Leukocytes [#/volume] correc bert for nucleated erythrocytes in Blood by Automated counon 01-26-2025 WBC corrected for nucl RBC Auto (Bld) [#/Vol] 4.4 10 3/uL 4.0-11.0 [facility] Lymphocytes Auto (Bld) [#/Vo l]on 01-26-2025 Lymphocytes (Bld) [#/Vol] 0.8 10 3/uL Low 1.2-3.8 [facility] Lymphocytes/100 WBC Auto (Bl d)on 01-26-2025 Lymphocytes/100 WBC (Bld) 19.1 % Low 20.5-60.0 [facility] MCH Auto (RBC) [Entitic mass ]on 01-26-2025 MCH (RBC) [Entitic mass] 33.2 pg 25.9-34.0 [facility] MCHC Auto (RBC) [Mass/Vol]on 01-26-2025 MCHC (RBC) [Mass/Vol] 33.1 g/dL 29.9-35.2 [facility] MCV Auto (RBC) [Entitic vol] on 01-26-2025 MCV (RBC) [Entitic vol] 100.4 fL High 80.0-94.0 [facility] Monocytes Auto (Bld) [#/Vol] on 01-26-2025 Monocytes (Bld) [#/Vol] 0.5 10 3/uL 0.3-0.8 [facility] Monocytes/100 WBC Auto (Bld) on 01-26-2025 Monocytes/100 WBC (Bld) 12.3 % High 1.7-12.0 [facility] Neutrophils Auto (Bld) [#/Vo l]on 01-26-2025 Neutrophils (Bld) [#/Vol] 2.9 10 3/uL 1.4-6.5 [facility] Neutrophils/100 WBC Auto (Bl d)on 01-26-2025 Neutrophils/100 WBC (Bld) 65.9 % 43.0-75.0 [facility] No Panel Informationon 01-26 Eosinophils # (Auto) 0.1 10 3/uL 0.0-0.7 [facility] Immature Granulocyte # (Auto) 0.01 10 3/uL 0.00-0.03 [facility] Platelet mean volume Auto (B ld) [Entitic vol]on 01-26-2025 Platelet mean volume (Bld) [Entitic vol] 9.7 fL 9.5-13.5 [facility] Platelets Auto (Bld) [#/Vol] on 01-26-2025 Platelets (Bld) [#/Vol] 120 10 3/uL Low 150-450 [facility] RBC Auto (Bld) [#/Vol]on RBC (Bld) [#/Vol] 2.77 10 6/uL Low 4.70-6.10 [facility] Office Visiton 01-24-2025 Follow-up visit [id number] Sebastian Hannon 1935 M Date Provider Department Center 01/24/2025 DYLON SALCEDO JESSICA [facility] Family History Problem Relation Age of Onset Other Mother Coronary artery disease Father Family Status - Relation Status Age at Mother Father Level of Service:[address]253 [place] OFFICE/OUTPATIENT ESTABLISHED HIGH MDM 40 MIN Normal [facility] Estimated glomerular filtrat ion rate (GFR) non- Americanon 01-22-2025 GFR/1.73 sq M.predicted among non-blacks MDRD (S/P/Bld) [Vol rate/Area] Estimated glomerular filtration rate (GFR) non- Low >=60 mL/min/1.73 m 2 [facility] GFR/1.73 sq M.predicted among non-blacks MDRD (S/P/Bld) [Vol rate/Area] 50 mL/min/{1.73_m2} Low >=60 mL/min/1.73 m 2 [facility] Laboratory - Chemistry and C hemistry - challengeon 01-22-2025 Calcium [Mass/Vol] 9.1 mg/dL 8.5-10.1 [facility] Chloride [Moles/Vol] 106 mmol/L 98-107 [facility] CO2 [Moles/Vol] 28.8 mmol/L 21.0-32.0 [facility] Creatinine [Mass/Vol] 1.35 mg/dL High 0.70-1.30 [facility] GFR/1.73 sq M.predicted MDRD (S/P/Bld) [Vol rate/Area] mL/min/{1.73_m2} >=60 mL/min/1.73 m 2 [facility] Glucose [Mass/Vol] 92 mg/dL 74-106 [facility] Potassium [Moles/Vol] 4.3 mmol/L 3.5-5.1 [facility] Sodium [Moles/Vol] 143 mmol/L 136-145 [facility] Urea nitrogen [Mass/Vol] 22.0 mg/dL High 7.0-18.0 [facility] Urea nitrogen/Creatinine [Mass ratio] 16.3 mg/mg [facility] Serum or plasma anion gap de terminationon 01-22-2025 Anion gap [Moles/Vol] Serum or plasma an ion gap determination [facility] Anion gap [Moles/Vol] 12.5 mmol/L [facility] Alanine aminotransferase [En zymatic activity/volume] in Serum or PlasmaOrdered By: Adilene Weinberg on 01-02-2025 ALT [Catalytic activity/Vol] Alanine aminotransferase [Enzymatic activity/volume] in Serum or Plasma [facility] ALT [Catalytic activity/Vol] 27 U/L Normal [facility] Comment on above: Order Comment: STAT FOR CT BUN/CREAT Performed By: #### C MP, LDH ####[facility] [id number] [place] [id number] [facility] Albumin [Mass/volume] in Ser um or Plasma by Bromocresol green (BCG) dye binding methoOrdered By: Adilene Weinberg on 01-02-2025 Albumin BCG dye [Mass/Vol] Albumin [Mass/volume] in Serum or Plasma by Bromocresol green (BCG) dye binding metho 3.5-5.7 [facility] Albumin BCG dye [Mass/Vol] 4.5 g/dL 3.5-5.7 [facility] Alkaline phosphatase [Enzyma tic activity/volume] in Serum or PlasmaOrdered By: Adilene Weinberg on 01-02-2025 ALP [Catalytic activity/Vol] Alkaline phosphatase [Enzymatic activity/volume] in Serum or Plasma 34-104 [facility] ALP [Catalytic activity/Vol] 62 U/L Normal 34-104 [facility] Comment on above: Order Comment: STAT FOR CT BUN/CREAT Performed By: #### C MP, LDH ####[facility] [id number] Aspartate aminotransferase [ Enzymatic activity/volume] in Serum or PlasmaOrdered By: Adilene Weinberg on 01-02-2025 AST [Catalytic activity/Vol] Aspartate aminotransferase [Enzymatic activity/volume] in Serum or Plasma 13-39 [facility] AST [Catalytic activity/Vol] 20 U/L Normal -39 [facility] Comment on above: Order Comment: STAT FOR CT BUN/CREAT Performed By: #### C MP, LDH ####[facility] [id number] Basophils Auto (Bld) [#/Vol] Ordered By: Adilene Weinberg on 01-02-2025 Basophils (Bld) [#/Vol] Automated basoph il count 0.0-0.2 [facility] Basophils [#/volume] in Bloo d by Automated countOrdered By: Adilene Weinberg on 01-02-2025 Basophils (Bld) [#/Vol] 0.0 10*3/uL Normal 0.0-0.2 [facility] Comment on above: Result Comment: PERF ORMED BY: [place] [address] [place] [address] PATHOLOGIST CARTOGRAPHIC ENGINEER LUDWIG URBINA M.D. Performed By: #### C BC #### [facility] [address] [place] [address] Basophils/100 WBC Auto (Bld) Ordered By: Adilene Weinberg on 01-02-2025 Basophils/100 WBC (Bld) Automated basophil % . [facility] Basophils/100 leukocytes in Blood by Automated countOrdered By: Adilene Weinberg on 01-02-2025 Basophils/100 WBC (Bld) 0.7 % Normal . [facility] Comment on above: Performed By: #### C BC #### [facility] [address] Bilirubin.total [Mass/volume ] in Serum or PlasmaOrdered By: Adilene Weinberg on 01-02-2025 Bilirubin [Mass/Vol] Bilirubin.total [Mass/volume] in Serum or Plasma 0.3-1.0 [facility] Bilirubin [Mass/Vol] 1.0 mg/dL Normal 0.3-1.0 [facility] Comment on above: Order Comment: STAT FOR CT BUN/CREAT Performed By: #### C MP, LDH ####[facility] [id number] CBC W Auto Differential pane l (Bld)on 01-02-2025 Basophils (Bld) [#/Vol] 0 10*3/uL 0.0 - 0.2 10*3/uL [facility] Basophils/100 WBC Manual cnt (Syn fld) 0.7 % . [facility] Eosinophils (Bld) [#/Vol] 0.1 10*3/uL 0.0 - 0.45 10*3/uL [facility] Eosinophils/100 WBC Manual cnt (Syn fld) 0.9 % . [facility] Erythrocyte distribution width (RBC) [Ratio] 14.2 % 12.0 - 14.8 % [facility] Hematocrit (Bld) [Volume fraction] 28.6 % Low 38.8 - 50.0 % [facility] Hemoglobin (Bld) [Mass/Vol] 9.8 g/dL Low 13.0 - 17.0 g/dL [facility] Interpretation and review of laboratory results Abnormal [facility] Lymphocytes (Bld) [#/Vol] 0.9 10*3/uL Low 1.00 - 4.8 10*3/uL [facility] Lymphocytes/100 WBC Manual cnt (Syn fld) 14.5 % . [facility] MCH (RBC) [Entitic mass] 32.2 pg 27.5 - 35.[address] [facility] MCHC (RBC) [Mass/Vol] 34.1 g/dL 32.5 - 35.6 g/dL [facility] MCV (RBC) [Entitic vol] 94.3 fL 83.5 - 101 fL [facility] Monocytes (Bld) [#/Vol] 0.6 10*3/uL 0.0 - 0.8 10*3/uL [facility] Monocytes+Macrophages/1 00 WBC Manual cnt (Syn fld) 10.2 % . [facility] Neutrophils (Bld) [#/Vol] 4.4 10*3/uL 1.8 - 7.7 10*3/uL [facility] Neutrophils/100 WBC Manual cnt (Syn fld) 73.7 % . [facility] NRBC 0.1 /100{WBC} 0 - 0.5 /100{WBC} [facility] Platelet mean volume (Bld) [Entitic vol] 7.9 fL 6.6 - 10.1 fL [facility] Platelets (Bld) [#/Vol] 146 10*3/uL Low 150 - 450 10*3/uL [facility] RBC LM.HPF (Urine sed) [#/Area] 3.03 10*6/uL Low 3.90 - 5.60 10*6/uL [facility] WBC (Bld) [#/Vol] 5.9 10*3/uL 4.1 - 10.5 10*3/uL [facility] WBC LM.HPF (Urine sed) [#/Area] 5.9 10*3/uL 4.1 - 10.5 10*3/uL [facility] CT abdomen pelvis w conon CT abdomen pelvis w [facility] [place] [address] CT Scan Report Signed Patient: Sebastian Hannon MR#: [id number] 0 : 1935 Acct:[id number] Age/Sex: 89 / M ADM Date: 01/02/25 Loc: Room: [facility] Attending Dr: Adilene Weinberg MD Copies to: Adilene Weinberg MD Ordering Provider: Adilene Weinberg MD Date of Service: 01/02/25 CT/CT chest w con: 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 ([id number]) CT/CT abdomen pelvis w con: C43.4 - [...] Dictation Location: RADIO-PC-02 Transcribed By: PHYLLIS 01/02/25 114 Dictated By: Hafsa Keen MD 01/02/251130 Signed By: 01/02/25 1147 Normal [facility] CT head/brain wo/w conon CT head/brain wo/w con [facility] [place] [address] CT Scan Report Signed with Addenda Patient: Sebastian Hannon MR#: [id number] 0 : 1935 Acct:[id number] Age/Sex: 89 / M ADM Date: 01/02/25 Loc: Room: Type: [facility] Attending [...] By: MD Hafsa Keen Addendum Signed By: 01/02/251130 Addendum Cosigned By: DD/ /[id number]/[id number] TD/TT: [...] Hafsa Keen M.D.01/02/2025 11:19 AM Dictation Location: [place] [address] Transcribed By: [facility] 01/02/25 1119 Dictated By: Hafsa Keen MD 01/02/25 1115 Signed By: 01/02/25 1119 Normal [facility] CT soft tissue neck w conon 01-02-2025 CT soft tissue neck w con [facility] [place] [address] [place] [address] CT Scan Report Signed Patient: Sebastian Hannon MR#: [id number] 0 : 1935 Acct:[id number] Age/Sex: 89 / M ADM Date: 01/02/25 Loc: XT Room: Type: [facility] Attending Dr: [...] Hafsa Keen M.D.01/02/2025 11:28 AM Dictation Location: [place] [address] Transcribed By: PHYLLIS 01/02/25 1128 Dictated By: Hafsa Keen MD 01/02/25 1119 Signed By: 01/02/25 1128 Normal [facility] Calcium [Mass/volume] in Ser um or PlasmaOrdered By: Adilene Weinberg on 01-02-2025 Calcium [Mass/Vol] Calcium [Mass/volume ] in Serum or Plasma 8.6-10.3 [facility] Calcium [Mass/Vol] 9.7 mg/dL Normal 8.6-10.3 [facility] Comment on above: Order Comment: STAT FOR CT BUN/CREAT Performed By: #### C MP, LDH ####[facility] [place] [id number] [facility] Carbon dioxide, total [Moles /volume] in Serum or PlasmaOrdered By: Adilene Weinberg on 01-02-2025 CO2 [Moles/Vol] Carbon dioxide, tota l [Moles/volume] in Serum or Plasma 21.0-31.0 [facility] CO2 [Moles/Vol] 29.8 mmol/L Normal 21.0-31.0 [facility] Comment on above: Order Comment: STAT FOR CT BUN/CREAT Performed By: #### C MP, LDH ####[facility] [place] [address] [facility] Chloride [Moles/volume] in S boby or PlasmaOrdered By: Adilene Weinberg on 01-02-2025 Chloride [Moles/Vol] Chloride [Moles/volume] in Serum or Plasma 98-107 [facility] Chloride [Moles/Vol] 102 mmol/L Normal 98-107 [facility] Comment on above: Order Comment: STAT FOR CT BUN/CREAT Performed By: #### C MP, LDH ####[place] [id number] Complete Blood Count Auto Di ffon 01-02-2025 Mean Corpuscular HGB Conc 34.1 g/dL Normal 32.5-35.6 [facility] Comment on above: Performed By: #### C BC #### [facility] [address] NRBC% 0.1 /100{WBC} Normal 0-0.5 [facility] Comment on above: Performed By: #### C BC #### [facility] [address] Comprehensive Metabolic Pane huan 01-02-2025 Albumin [Mass/Vol] 4.5 g/dL Normal 3.5-5.7 [facility] Comment on above: Order Comment: STAT FOR CT BUN/CREAT Performed By: #### C MP, LDH ####[place] [id number] Creatinine Clr Calc Pharmacy 40.40 Normal [facility] Comment on above: Order Comment: STAT FOR CT BUN/CREAT Performed By: #### C MP, LDH ####[place] [id number] Estimated GFR 51.733 mL/Min Normal [facility] Comment on above: Order Comment: STAT FOR CT BUN/CREAT Performed By: #### C MP, LDH ####[place] [id number] Comprehensive metabolic pane huan 01-02-2025 Albumin [Mass/Vol] 4.5 g/dL 3.5 - 5.7 g/dL [facility] Albumin/Globulin [Mass ratio] 2 {ratio} [facility] ALP [Catalytic activity/Vol] 62 U/L 34 - 104 U/L [facility] ALT [Catalytic activity/Vol] 27 U/L 7 - 52 U/L [facility] Anion gap [Moles/Vol] 10.2 mmol/L 6.0 - 15.0 meq/L [facility] AST [Catalytic activity/Vol] 20 U/L 13 - 39 U/L [facility] Bilirubin [Mass/Vol] 1 mg/dL 0.3 - 1 .0 mg/dL [facility] Calcium [Mass/Vol] 9.7 mg/dL 8.6 - 10. 3 mg/dL [facility] Chloride [Moles/Vol] 102 mmol/L 98 - 10 7 mmol/L [facility] CO2 [Moles/Vol] 29.8 mmol/L 21.0 - 31.0 mmol/L [facility] Creatinine (U) [Mass/Vol] 1.33 mg/dL High 0.70 - 1.30 mg/dL [facility] CREATININE CLR CALC PHARMACY 40.4 [facility] GFR/1.73 sq M.predicted MDRD (S/P/Bld) [Vol rate/Area] 51.733 mL/min/{1.73_m2} mL/Min [facility] Globulin (S) [Mass/Vol] 2.3 g/dL [facility] Glucose [Mass/Vol] 90 mg/dL 70 - 100 mg/dL [facility] Comment on above: Random Glucose Refer ence Range is dependent on time and content of last meal. Glucose of more than 200 mg/dL in a nonstressed, ambulatory subject supports the diagnosis of Diabetes Mellitus. ADA recommended reference range Interpretation and review of laboratory results Abnormal [facility] Potassium [Moles/Vol] 4 mmol/L 3.5 - 5.1 mmol/L [facility] Protein [Mass/Vol] 6.8 g/dL 6.4 - 8.9 g/dL [facility] Sodium [Moles/Vol] 138 mmol/L 136 - 145 mmol/L [facility] Urea nitrogen [Mass/Vol] 29 mg/dL High 7 - 25 mg/dL [facility] Creatinine [Mass/volume] in Serum or PlasmaOrdered By: Adilene Weinberg on 01-02-2025 Creatinine [Mass/Vol] Creatinine [Mass/volume] in Serum or Plasma High 0.70-1.30 [facility] Creatinine [Mass/Vol] 1.33 mg/dL High 0.70-1.30 [facility] Comment on above: Order Comment: STAT FOR CT BUN/CREAT Performed By: #### C MP, LDH ####[facility] [id number] [address] Eosinophils Auto (Bld) [#/Vo l]Ordered By: Adilene Weinberg on 01-02-2025 Eosinophils (Bld) [#/Vol] Automated eosinophil count 0.0-0.45 [facility] Eosinophils [#/volume] in Bl ood by Automated countOrdered By: Adilene Weinberg on 01-02-2025 Eosinophils (Bld) [#/Vol] 0.1 10*3/uL Normal 0.0-0.45 [facility] Comment on above: Performed By: #### C BC #### [facility] [address] Eosinophils/100 WBC Auto (Bl d)Ordered By: Adilene Weibnerg on 01-02-2025 Eosinophils/100 WBC (Bld) Automated eosinophil % . [facility] Eosinophils/100 leukocytes i n Blood by Automated countOrdered By: Adilene Weinberg on 01-02-2025 Eosinophils/100 WBC (Bld) 0.9 % Normal . [facility] Comment on above: Performed By: #### C BC #### [facility] [address] Erythrocyte distribution wid th Auto (RBC) [Ratio]Ordered By: Adilene Weinberg on 01-02-2025 Erythrocyte distribution width (RBC) [Ratio] Erythrocyte distribution width [Ratio] by Automated count 12.0-14.8 [facility] Erythrocyte distribution wid th [Ratio] by Automated countOrdered By: Adilene Weinberg on 01-02-2025 Erythrocyte distribution width (RBC) [Ratio] 14.2 % Normal 12.0-14.8 [facility] Comment on above: Performed By: #### C BC #### [facility] [address] Erythrocytes [#/volume] in B lood by Automated countOrdered By: Adilene Weinberg on 01-02-2025 RBC (Bld) [#/Vol] 3.03 10*6/uL Low 3.90-5.60 [facility] Comment on above: Performed By: #### C BC #### [facility] [address] Globulin Calc (S) [Mass/Vol] Ordered By: Adilene Weinberg on 01-02-2025 Globulin (S) [Mass/Vol] Serum globulin measurement by calculation (mass/volume) [facility] Glucose [Mass/volume] in Ser um or PlasmaOrdered By: Adilene Weinberg on 01-02-2025 Glucose [Mass/Vol] Glucose [Mass/volume ] in Serum or Plasma 70-100 [facility] Comment on above: ADA recommended refe rence rangeRandom Glucose Reference Range is dependent on time and content of last meal. Glucose of more than 200 mg/dL in a nonstressed, ambulatory subject supports the diagnosis of Diabetes Mellitus. Glucose [Mass/Vol] 90 mg/dL Normal 70-100 [facility] Comment on above: ADA recommended refe rence rangeRandom Glucose Reference Range is dependent on time and content of last meal. Glucose of more than 200 mg/dL in a nonstressed, ambulatory subject supports the diagnosis of Diabetes Mellitus. Order Comment: STAT FOR CT BUN/CREAT Result Comment: [place] om Glucose Reference Range is dependent on time and content of last meal. Glucose of more than 200 mg/dL in a nonstressed, ambulatory subject supports the diagnosis of Diabetes Mellitus. ADA recommended reference range Performed By: #### C MP, LDH ####[facility] [id number] [address] Hematocrit Auto (Bld) [Volum e fraction]Ordered By: Adilene Weinbreg on 01-02-2025 Hematocrit (Bld) [Volume fraction] Hematocrit [Volume Fraction] of Blood by Automated count Low 38.8-50.0 [facility] Hematocrit [Volume Fraction] of Blood by Automated countOrdered By: Adilene Weinberg on 01-02-2025 Hematocrit (Bld) [Volume fraction] 28.6 % Low 38.8-50.0 [facility] Comment on above: Performed By: #### C BC #### [facility] [address] Hemoglobin [Mass/volume] in BloodOrdered By: Adilene Weinberg on 01-02-2025 Hemoglobin (Bld) [Mass/Vol] Hemoglobin [Mass/volume] in Blood Low 13.0-17.0 [facility] Hemoglobin (Bld) [Mass/Vol] 9.8 g/dL Low 13.0-17.0 [facility] Comment on above: Performed By: #### C BC #### [facility] [address] LDH Lactate Dehydrogenaseon 01-02-2025 LDH Lactate Dehydrogenase 241 U/L Normal 140-271 [facility] Comment on above: Order Comment: STAT FOR CT BUN/CREAT Result Comment: PERF ORMED BY: [place] [address] PATHOLOGIST CARTOGRAPHIC ENGINEER LUDWIG URBINA M.D. Performed By: #### C MP, LDH ####[facility] [id number] [address] LDH Lactate to pyruvate reac tion [Catalytic activity/Vol]on 01-02-2025 LDH LACTATE DEHYDROGENASE 241 U/L 140 - 271 U/L [facility] Lactate dehydrogenase [Enzym atic activity/volume] in Serum or Plasma by Lactate to pyOrdered By: Adilene Weinberg on 01-02-2025 LDH Lactate to pyruvate reaction [Catalytic activity/Vol] Lactate dehydrogenase [Enzymatic activity/volume] in Serum or Plasma by Lactate to py 140-271 [facility] LDH Lactate to pyruvate reaction [Catalytic activity/Vol] 241 U/L 140-271 [facility] Leukocytes [#/volume] correc bert for nucleated erythrocytes in Blood by Automated counOrdered By: Adilene Weinberg on 01-02-2025 WBC corrected for nucl RBC Auto (Bld) [#/Vol] Leukocytes [#/volume] corrected for nucleated erythrocytes in Blood by Automated coun 4.1-10.5 [facility] WBC corrected for nucl RBC Auto (Bld) [#/Vol] 5.9 10*3/uL 4.1-10.5 [facility] Leukocytes [#/volume] in Blo od by Automated countOrdered By: Adilene Weinberg on 01-02-2025 WBC (Bld) [#/Vol] 5.9 10*3/uL Normal 4.1-10.5 [facility] Comment on above: Performed By: #### C BC #### [address] Lymphocytes Auto (Bld) [#/Vo l]Ordered By: Adilene Weinberg on 01-02-2025 Lymphocytes (Bld) [#/Vol] Lymphocytes [#/volume] in Blood by Automated count Low 1.00-4.8 [facility] Lymphocytes [#/volume] in Bl ood by Automated countOrdered By: Adilene Weinberg on 01-02-2025 Lymphocytes (Bld) [#/Vol] 0.9 10*3/uL Low 1.00-4.8 [facility] Comment on above: Performed By: #### C BC #### [address] Lymphocytes/100 WBC Auto (Bl d)Ordered By: Adilene Weinberg on 01-02-2025 Lymphocytes/100 WBC (Bld) Lymphocytes/100 leukocytes in Blood by Automated count . [facility] Lymphocytes/100 leukocytes i n Blood by Automated countOrdered By: Adilene Weinberg on 01-02-2025 Lymphocytes/100 WBC (Bld) 14.5 % Normal . [facility] Comment on above: Performed By: #### C BC #### [address] MCH Auto (RBC) [Entitic mass ]Ordered By: Adilene Weinberg on 01-02-2025 MCH (RBC) [Entitic mass] MCH [Entitic mass] by Automated count 27.5-35.2 [facility] MCH [Entitic mass] by Automa bert countOrdered By: Adilene Weinberg on 01-02-2025 MCH (RBC) [Entitic mass] 32.2 pg Normal 27.5-35.2 [facility] Comment on above: Performed By: #### C BC #### [address] MCHC Auto (RBC) [Mass/Vol]Or dered By: Adilene Weinberg on 01-02-2025 MCHC (RBC) [Mass/Vol] MCHC [Mass/volume] by Automated count 32.5-35.6 [facility] MCHC (RBC) [Mass/Vol] 34.1 g/dL 32.5-35.6 [facility] MCV Auto (RBC) [Entitic vol] Ordered By: Adilene Weinberg on 01-02-2025 MCV (RBC) [Entitic vol] MCV [Entitic vol ume] by Automated count 83.5-101 [facility] MCV [Entitic volume] by Auto mated countOrdered By: Adilene Weinberg on 01-02-2025 MCV (RBC) [Entitic vol] 94.3 fL Normal 83.5-101 [facility] Comment on above: Performed By: #### C BC #### [facility] [address] [place] [address] Monocytes Auto (Bld) [#/Vol] Ordered By: Adilene Weinberg on 01-02-2025 Monocytes (Bld) [#/Vol] Automated blood monocyte count 0.0-0.8 [facility] Monocytes [#/volume] in Bloo d by Automated countOrdered By: Adilene Weinberg on 01-02-2025 Monocytes (Bld) [#/Vol] 0.6 10*3/uL Normal 0.0-0.8 [facility] Comment on above: Performed By: #### C BC #### [facility] [address] [place] [address] [place] Monocytes/100 WBC Auto (Bld) Ordered By: Adilene Weinberg on 01-02-2025 Monocytes/100 WBC (Bld) Automated monocyte % . [facility] Monocytes/100 leukocytes in Blood by Automated countOrdered By: Adilene Weinberg on 01-02-2025 Monocytes/100 WBC (Bld) 10.2 % Normal . [facility] Comment on above: Performed By: #### C BC #### [facility] [address] [place] [address] Neutrophils Auto (Bld) [#/Vo l]Ordered By: Adilene Weinberg on 01-02-2025 Neutrophils (Bld) [#/Vol] Neutrophils [#/volume] in Blood by Automated count 1.8-7.7 [facility] Neutrophils [#/volume] in Bl ood by Automated countOrdered By: Adilene Weinberg on 01-02-2025 Neutrophils (Bld) [#/Vol] 4.4 10*3/uL Normal 1.8-7.7 [facility] Comment on above: Performed By: #### C BC #### [facility] [address] [place] [address] [place] Neutrophils/100 WBC Auto (Bl d)Ordered By: Adilene Weinberg on 01-02-2025 Neutrophils/100 WBC (Bld) Automated neutrophil % . [facility] Neutrophils/100 leukocytes i n Blood by Automated countOrdered By: Adilene Weinberg on 01-02-2025 Neutrophils/100 WBC (Bld) 73.7 % Normal . [facility] Comment on above: Performed By: #### C BC #### [facility] [address] No Panel Informationon 01-[address] BUN/CREAT [facility] No Panel InformationOrdered By: Adilene Weinberg on 01-02-2025 Estimated GFR (CKD-EPI) 51.733 mL/Min [facility] Creatinine Clearance (Chem 40.40 [facility] Nucleated erythrocytes [Pres ence] in Blood by Automated countOrdered By: Adilene Weinberg on 01-02-2025 Nucleated RBC Auto Ql (Bld) Nucleated erythrocytes [Presence] in Blood by Automated count 0-0.5 [facility] Nucleated RBC Auto Ql (Bld) 0.1 /100{WBC} 0-0.5 [facility] Platelet mean volume Auto (B ld) [Entitic vol]Ordered By: Adilene Weinberg on 01-02-2025 Platelet mean volume (Bld) [Entitic vol] Platelet mean volume [Entitic volume] in Blood by Automated count 6.6-10.1 [facility] Platelet mean volume [Entiti c volume] in Blood by Automated countOrdered By: Adilene Weinberg on 01-02-2025 Platelet mean volume (Bld) [Entitic vol] 7.9 fL Normal 6.6-10.1 [facility] Comment on above: Performed By: #### C BC #### [facility] [address] Platelets Auto (Bld) [#/Vol] Ordered By: Adilene Weinberg on 01-02-2025 Platelets (Bld) [#/Vol] Platelets [#/vol ume] in Blood by Automated count Low 150-450 [facility] Platelets [#/volume] in Bloo d by Automated countOrdered By: Adilene Weinberg on 01-02-2025 Platelets (Bld) [#/Vol] 146 10*3/uL Low 150-450 [facility] Comment on above: Performed By: #### C BC #### [facility] [address] Potassium [Moles/volume] in Serum or PlasmaOrdered By: Adilene Weinberg on 01-02-2025 Potassium [Moles/Vol] Potassium [Moles/volume] in Serum or Plasma 3.5-5.1 [facility] Potassium [Moles/Vol] 4.0 mmol/L Normal 3.5-5.1 [facility] Comment on above: Order Comment: STAT FOR CT BUN/CREAT Performed By: #### C MP, LDH ####[facility] [id number] Protein [Mass/volume] in Ser um or PlasmaOrdered By: Adilene Weinberg on 01-02-2025 Protein [Mass/Vol] Protein [Mass/volume ] in Serum or Plasma 6.4-8.9 [facility] Protein [Mass/Vol] 6.8 g/dL Normal 6.4-8.9 [facility] Comment on above: Order Comment: STAT FOR CT BUN/CREAT Performed By: #### C MP, LDH ####[facility] [id number] RBC Auto (Bld) [#/Vol]Ordere d By: Adilene Weinberg on 01-02-2025 RBC (Bld) [#/Vol] Erythrocytes [#/volume] in Blood by Automated count Low 3.90-5.60 [facility] Serum globulin measurement b y calculation (mass/volume)Ordered By: Adilene Weinberg on 01-02-2025 Globulin (S) [Mass/Vol] 2.3 g/dL Normal [facility] Comment on above: Order Comment: STAT FOR CT BUN/CREAT Performed By: #### C MP, LDH ####[address] Serum or plasma albumin/glob ulin mass ratioOrdered By: Adilene Weinberg on 01-02-2025 Albumin/Globulin [Mass ratio] Serum or plasma albumin/globulin mass ratio [facility] Albumin/Globulin [Mass ratio] 2.0 {ratio} Normal [facility] Comment on above: Order Comment: STAT FOR CT BUN/CREAT Performed By: #### C MP, LDH ####[address] Serum or plasma anion gap de terminationOrdered By: Adilene Weinberg on 01-02-2025 Anion gap [Moles/Vol] Serum or plasma an ion gap determination 6.0-15.0 [facility] Anion gap [Moles/Vol] 10.2 mmol/L Normal 6.0-15.0 [facility] Comment on above: Order Comment: STAT FOR CT BUN/CREAT Performed By: #### C MP, LDH ####[address] Sodium [Moles/volume] in Ser um or PlasmaOrdered By: Adilene Weinberg on 01-02-2025 Sodium [Moles/Vol] Sodium [Moles/volume ] in Serum or Plasma 136-145 [facility] Sodium [Moles/Vol] 138 mmol/L Normal 136-145 [facility] Comment on above: Order Comment: STAT FOR CT BUN/CREAT Performed By: #### C MP, LDH ####[address] Urea nitrogen [Mass/volume] in Serum or PlasmaOrdered By: Adilene Weinberg on 01-02-2025 Urea nitrogen [Mass/Vol] Urea nitrogen [Mass/volume] in Serum or Plasma High 7-25 [facility] Urea nitrogen [Mass/Vol] 29 mg/dL High 7-25 [facility] Comment on above: Order Comment: STAT FOR CT BUN/CREAT Performed By: #### C MP, LDH ####[facility] [id number] [place] [address] [facility] WBC Auto (Bld) [#/Vol]Ordere d By: Adilene Weinberg on 01-02-2025 WBC (Bld) [#/Vol] Leukocytes [#/volume ] in Blood by Automated count 4.1-10.5 [facility] Cholesterol in LDL Calc [Mas s/Vol]on 12-15-2024 Cholesterol in LDL [Mass/Vol] Cholesterol in LDL [Mass/volume] in Serum or Plasma by calculation [facility] Comment on above: <100 mg/dl [id number] 0-129 mg/dl NEAR OR ABOVE [id number] mg/dl BORDERLINE [id number] mg/dl HIGH>190 mg/dl VERY HIGH Cholesterol in VLDL Calc [Ma ss/Vol]on 12-15-2024 Cholesterol in VLDL [Mass/Vol] Cholesterol in VLDL [Mass/volume] in Serum or Plasma by calculation [facility] Estimated glomerular filtrat ion rate (GFR) non- Americanon 12-15-2024 GFR/1.73 sq M.predicted among non-blacks MDRD (S/P/Bld) [Vol rate/Area] Estimated glomerular filtration rate (GFR) non- Low >=60 mL/min/1.73 m 2 [facility] Globulin Calc (S) [Mass/Vol] on 12-15-2024 Globulin (S) [Mass/Vol] Serum globulin measurement by calculation (mass/volume) [facility] Laboratory - Chemistry and C hemistry - challengeon 12-15-2024 Albumin [Mass/Vol] 3.7 g/dL 3.4-5.0 [facility] ALP [Catalytic activity/Vol] 85 U/L 46-116 [facility] ALT [Catalytic activity/Vol] 56 U/L 16-63 [facility] AST [Catalytic activity/Vol] 26 U/L 15-37 [facility] Bilirubin [Mass/Vol] 0.5 mg/dL 0.2-1.0 [facility] Calcium [Mass/Vol] 9.0 mg/dL 8.5-10.1 [facility] Chloride [Moles/Vol] 104 mmol/L 98-107 [facility] Cholesterol [Mass/Vol] 107 mg/dL <=200 Fi [facility] Cholesterol in HDL [Mass/Vol] 66 mg/dL High 40-60 [facility] Comment on above: > or =60 mg/dl - LOW CARDIOVASCULAR RISK<40 mg/dl - HIGH CARDIOVASCULAR RISK CO2 [Moles/Vol] 28.5 mmol/L 21.0-32.0 [facility] Creatinine [Mass/Vol] 1.37 mg/dL High 0.70-1.30 [facility] GFR/1.73 sq M.predicted MDRD (S/P/Bld) [Vol rate/Area] 60 mL/min/{1.73_m2} >=60 mL/min/1.73 m 2 [facility] Glucose [Mass/Vol] 94 mg/dL 74-106 [facility] Natriuretic peptide B (Bld) [Mass/Vol] 1793.0 pg/mL <=1800.0 [facility] Potassium [Moles/Vol] 4.4 mmol/L 3.5-5.1 [facility] Protein [Mass/Vol] 6.6 g/dL 6.4-8.2 [facility] Sodium [Moles/Vol] 140 mmol/L 136-145 [facility] Triglyceride [Mass/Vol] 31 mg/dL <=150 F [facility] Urea nitrogen [Mass/Vol] 28.0 mg/dL High 7.0-18.0 [facility] Urea nitrogen/Creatinine [Mass ratio] 20.4 mg/mg [facility] Serum or plasma albumin/glob ulin mass ratioon 12-15-2024 Albumin/Globulin [Mass ratio] Serum or plasma albumin/globulin mass ratio [facility] Serum or plasma anion gap de terminationon 12-15-2024 Anion gap [Moles/Vol] Serum or plasma an ion gap determination [facility] Serum or plasma total choles terol/high density lipoprotein (HDL) cholesterol mass ben 12-15-2024 Cholesterol.total/Elizabeth sterol in HDL [Mass ratio] Serum or plasma total cholesterol/high density lipoprotein (HDL) cholesterol mass rat [facility] Comment on above: 3.3 - 4.4 LOW RISK4. 4 - 7.1 AVERAGE RISK7.1 - 11.0 MODERATE RISK>11.0 HIGH RISK 37on 11-30-2024 37 *We will try you on an alternating dose of lasix, 40mg and then 20mg every other day. *Have labs done in 2 weeks to check your kidney function *[facility] will call you to schedule a heart ultrasound Normal [facility] Office Visiton 11-30-2024 Follow-up visit [id number] Sebastian Hannon 1935 M Date Provider Department Center 11/30/2024 [facility] Family History Problem Relation Age of Onset Other Mother Coronary artery disease Father Family Status - Relation Status Age at Mother Father Level of Service:53568 [place] OFFICE/OUTPATIENT ESTABLISHED MOD MDM 30 MIN Reason for Visit and Comments: Congestive Heart Failure [127] Atrial Fibrillation [80] Normal [facility] Alanine aminotransferase [En zymatic activity/volume] in Serum or PlasmaOrdered By: Michele Arteaga on 10-30-2024 ALT [Catalytic activity/Vol] Alanine aminotransferase [Enzymatic activity/volume] in Serum or Plasma [facility] Albumin [Mass/volume] in Ser um or Plasma by Bromocresol green (BCG) dye binding methoOrdered By: Michele Arteaga on 10-30-2024 Albumin BCG dye [Mass/Vol] Albumin [Mass/volume] in Serum or Plasma by Bromocresol green (BCG) dye binding metho 3.5-5.7 [facility] Alkaline phosphatase [Enzyma tic activity/volume] in Serum or PlasmaOrdered By: Michele Arteaga on 10-30-2024 ALP [Catalytic activity/Vol] Alkaline phosphatase [Enzymatic activity/volume] in Serum or Plasma 34-104 [facility] Aspartate aminotransferase [ Enzymatic activity/volume] in Serum or PlasmaOrdered By: Michele Arteaga on 10-30-2024 AST [Catalytic activity/Vol] Aspartate aminotransferase [Enzymatic activity/volume] in Serum or Plasma 13-39 [facility] Basophils Auto (Bld) [#/Vol] Ordered By: Michele Arteaga on 10-30-2024 Basophils (Bld) [#/Vol] Automated basoph il count 0.0-0.2 [facility] Basophils/100 WBC Auto (Bld) Ordered By: Michele Arteaga on 10-30-2024 Basophils/100 WBC (Bld) Automated basophil % . [facility] Bilirubin.direct [Mass/volum e] in Serum or PlasmaOrdered By: Michele Arteaga on 10-30-2024 Bilirubin.direct [Mass/Vol] Bilirubin.direct [Mass/volume] in Serum or Plasma 0.03-0.18 [facility] Bilirubin.total [Mass/volume ] in Serum or PlasmaOrdered By: Michele Arteaga on 10-30-2024 Bilirubin [Mass/Vol] Bilirubin.total [Mass/volume] in Serum or Plasma 0.3-1.0 [facility] Complete Blood Count Auto Di ffon 10-30-2024 Basophils (Bld) [#/Vol] 0.0 10*3/uL Normal 0.0-0.2 [facility] Comment on above: Performed By: #### C REAT, CBC, HEPATIC, ESR ####[address] Basophils/100 WBC (Bld) 1.1 % Normal . T raul [facility] Comment on above: Performed By: #### C REAT, CBC, HEPATIC, ESR ####[address] Eosinophils (Bld) [#/Vol] 0.1 10*3/uL Normal 0.0-0.45 [facility] Comment on above: Performed By: #### C REAT, CBC, HEPATIC, ESR ####[address] Eosinophils/100 WBC (Bld) 1.3 % Normal . [facility] Comment on above: Performed By: #### C REAT, CBC, HEPATIC, ESR ####[address] Erythrocyte distribution width (RBC) [Ratio] 14.1 % Normal 12.0-14.8 [facility] Comment on above: Performed By: #### C REAT, CBC, HEPATIC, ESR ####[address] Hematocrit (Bld) [Volume fraction] 27.3 % Low 38.8-50.0 [facility] Comment on above: Performed By: #### C REAT, CBC, HEPATIC, ESR ####[address] Hemoglobin (Bld) [Mass/Vol] 9.1 g/dL Low 13.0-17.0 [facility] Comment on above: Performed By: #### C REAT, CBC, HEPATIC, ESR ####[address] Lymphocytes (Bld) [#/Vol] 0.6 10*3/uL Low 1.00-4.8 [facility] Comment on above: Performed By: #### C REAT, CBC, HEPATIC, ESR ####[address] Lymphocytes/100 WBC (Bld) 12.6 % Normal . [facility] Comment on above: Performed By: #### C REAT, CBC, HEPATIC, ESR ####[address] MCH (RBC) [Entitic mass] 32.1 pg Normal 27.5-35.2 [facility] Comment on above: Performed By: #### C REAT, CBC, HEPATIC, ESR ####[address] MCV (RBC) [Entitic vol] 95.9 fL Normal 83.5-101 T [facility] Comment on above: Performed By: #### C REAT, CBC, HEPATIC, ESR ####[address] Mean Corpuscular HGB Conc 33.4 g/dL Normal 32.5-35.6 [facility] Comment on above: Performed By: #### C REAT, CBC, HEPATIC, ESR ####[address] Monocytes (Bld) [#/Vol] 0.5 10*3/uL Normal 0.0-0.8 [facility] Comment on above: Performed By: #### C REAT, CBC, HEPATIC, ESR ####[address] Monocytes/100 WBC (Bld) 11.5 % Normal . [facility] Comment on above: Performed By: #### C REAT, CBC, HEPATIC, ESR ####[address] Neutrophils (Bld) [#/Vol] 3.4 10*3/uL Normal 1.8-7.7 [facility] Comment on above: Performed By: #### C REAT, CBC, HEPATIC, ESR ####[address] Neutrophils/100 WBC (Bld) 73.5 % Normal . [facility] Comment on above: Performed By: #### C REAT, CBC, HEPATIC, ESR ####[address] NRBC% 0.1 /100{WBC} Normal 0-0.5 [facility] Comment on above: Performed By: #### C REAT, CBC, HEPATIC, ESR ####[address] Platelet mean volume (Bld) [Entitic vol] 8.6 fL Normal 6.6-10.1 [facility] Comment on above: Performed By: #### C REAT, CBC, HEPATIC, ESR ####[address] Platelets (Bld) [#/Vol] 129 10*3/uL Low 150-450 [facility] Comment on above: Performed By: #### C REAT, CBC, HEPATIC, ESR ####[address] RBC (Bld) [#/Vol] 2.84 10*6/uL Low 3.90-5.60 [facility] Comment on above: Performed By: #### C REAT, CBC, HEPATIC, ESR ####[place] [id number] WBC (Bld) [#/Vol] 4.7 10*3/uL Normal 4.1-10.5 [facility] Comment on above: Performed By: #### C REAT, CBC, HEPATIC, ESR ####[place] [id number] [place] [id number] [facility] Creatinineon 10-30-2024 Creatinine [Mass/Vol] 1.21 mg/dL Normal 0.70-1.30 [facility] Comment on above: Performed By: #### C REAT, CBC, HEPATIC, ESR ####[place] [id number] Estimated GFR 57.950 mL/Min Normal [facility] Comment on above: Result Comment: PERF ORMED BY: [address] [address] [place] [address] PATHOLOGIST CARTOGRAPHIC ENGINEER LUDWIG URBINA M.D. Performed By: #### C REAT, CBC, HEPATIC, ESR ####[address] Creatinine [Mass/volume] in Serum or PlasmaOrdered By: Michele Arteaga on 10-30-2024 Creatinine [Mass/Vol] Creatinine [Mass/volume] in Serum or Plasma 0.70-1.30 [facility] Eosinophils Auto (Bld) [#/Vo l]Ordered By: Michele Arteaga on 10-30-2024 Eosinophils (Bld) [#/Vol] Automated eosinophil count 0.0-0.45 [facility] Eosinophils/100 WBC Auto (Bl d)Ordered By: Michele Arteaga on 10-30-2024 Eosinophils/100 WBC (Bld) Automated eosinophil % . [facility] Erythrocyte Sedimentation Ra shayy 10-30-2024 ESR (Bld) [Velocity] 18 mm/h Normal 0-19 [facility] Comment on above: Result Comment: PERF ORMED BY: [address] [address] [place] [address] PATHOLOGIST CARTOGRAPHIC ENGINEER LUDWIG URBINA M.D. Performed By: #### C REAT, CBC, HEPATIC, ESR ####[place] [id number] [place] [id number] [facility] Erythrocyte distribution wid th Auto (RBC) [Ratio]Ordered By: Michele Arteaga on 10-30-2024 Erythrocyte distribution width (RBC) [Ratio] Erythrocyte distribution width [Ratio] by Automated count 12.0-14.8 [facility] Erythrocyte sedimentation ra te by Photometric methodOrdered By: Michele Arteaga on 10-30-2024 ESR Photometric method (Bld) [Velocity] Erythrocyte sedimentation rate by Photometric method 0-19 [facility] Globulin Calc (S) [Mass/Vol] Ordered By: Michele Arteaga on 10-30-2024 Globulin (S) [Mass/Vol] Serum globulin measurement by calculation (mass/volume) [facility] Hematocrit Auto (Bld) [Volum e fraction]Ordered By: Michele Arteaga on 10-30-2024 Hematocrit (Bld) [Volume fraction] Hematocrit [Volume Fraction] of Blood by Automated count Low 38.8-50.0 [facility] Hemoglobin [Mass/volume] in BloodOrdered By: Michele Arteaga on 10-30-2024 Hemoglobin (Bld) [Mass/Vol] Hemoglobin [Mass/volume] in Blood Low 13.0-17.0 [facility] Hepatic Panelon 10-30-2024 Albumin [Mass/Vol] 4.0 g/dL Normal 3.5-5.7 [facility] Comment on above: Performed By: #### C REAT, CBC, HEPATIC, ESR ####[place] [id number] Albumin/Globulin [Mass ratio] 2.1 {ratio} Normal [facility] Comment on above: Performed By: #### C REAT, CBC, HEPATIC, ESR ####[place] [id number] [place] [id number] [facility] ALP [Catalytic activity/Vol] 69 U/L Normal 34-104 [facility] Comment on above: Performed By: #### C REAT, CBC, HEPATIC, ESR ####[address] ALT [Catalytic activity/Vol] 22 U/L Normal 7-52 [facility] Comment on above: Performed By: #### C REAT, CBC, HEPATIC, ESR ####[address] AST [Catalytic activity/Vol] 20 U/L Normal 13-39 [facility] Comment on above: Performed By: #### C REAT, CBC, HEPATIC, ESR ####[address] Bilirubin [Mass/Vol] 0.6 mg/dL Normal 0.3-1.0 [facility] Comment on above: Performed By: #### C REAT, CBC, HEPATIC, ESR ####[address] Bilirubin,Indirect 0.5 mg/dL Normal [facility] Comment on above: Performed By: #### C REAT, CBC, HEPATIC, ESR ####[address] Bilirubin.indirect [Mass/Vol] 0.10 mg/dL Normal 0.03-0.18 [facility] Comment on above: Performed By: #### C REAT, CBC, HEPATIC, ESR ####[address] Globulin (S) [Mass/Vol] 1.9 g/dL Normal T [facility] Comment on above: Performed By: #### C REAT, CBC, HEPATIC, ESR ####[address] Protein [Mass/Vol] 5.9 g/dL Low 6.4-8.9 [facility] Comment on above: Performed By: #### C REAT, CBC, HEPATIC, ESR ####[place] [id number] [place] [address] [facility] Leukocytes [#/volume] correc bert for nucleated erythrocytes in Blood by Automated counOrdered By: Michele Arteaga on 10-30-2024 WBC corrected for nucl RBC Auto (Bld) [#/Vol] Leukocytes [#/volume] corrected for nucleated erythrocytes in Blood by Automated coun 4.1-10.5 [facility] Lymphocytes Auto (Bld) [#/Vo l]Ordered By: Michele Arteaga on 10-30-2024 Lymphocytes (Bld) [#/Vol] Lymphocytes [#/volume] in Blood by Automated count Low 1.00-4.8 [facility] Lymphocytes/100 WBC Auto (Bl d)Ordered By: Michele Arteaga on 10-30-2024 Lymphocytes/100 WBC (Bld) Lymphocytes/100 leukocytes in Blood by Automated count . [facility] MCH Auto (RBC) [Entitic mass ]Ordered By: Michele Arteaga on 10-30-2024 MCH (RBC) [Entitic mass] MCH [Entitic mass] by Automated count 27.5-35.2 [facility] MCHC Auto (RBC) [Mass/Vol]Or dered By: Michele Arteaga on 10-30-2024 MCHC (RBC) [Mass/Vol] MCHC [Mass/volume] by Automated count 32.5-35.6 [facility] MCV Auto (RBC) [Entitic vol] Ordered By: Michele Arteaga on 10-30-2024 MCV (RBC) [Entitic vol] MCV [Entitic vol ume] by Automated count 83.5-101 [facility] Monocytes Auto (Bld) [#/Vol] Ordered By: Michele Arteaga on 10-30-2024 Monocytes (Bld) [#/Vol] Automated blood monocyte count 0.0-0.8 [facility] Monocytes/100 WBC Auto (Bld) Ordered By: Michele Arteaga on 10-30-2024 Monocytes/100 WBC (Bld) Automated monocyte % . [facility] Neutrophils Auto (Bld) [#/Vo l]Ordered By: Michele Arteaga on 10-30-2024 Neutrophils (Bld) [#/Vol] Neutrophils [#/volume] in Blood by Automated count 1.8-7.7 [facility] Neutrophils/100 WBC Auto (Bl d)Ordered By: Michele Arteaga on 10-30-2024 Neutrophils/100 WBC (Bld) Automated neutrophil % . [facility] No Panel InformationOrdered By: Michele Arteaga on 10-30-2024 Estimated GFR (CKD-EPI) 57.950 mL/Min [facility] Creatinine Clearance (Chem N/A [facility] Nucleated erythrocytes [Pres ence] in Blood by Automated countOrdered By: Michele Arteaga on 10-30-2024 Nucleated RBC Auto Ql (Bld) Nucleated erythrocytes [Presence] in Blood by Automated count 0-0.5 [facility] Platelet mean volume Auto (B ld) [Entitic vol]Ordered By: Michele Arteaga on 10-30-2024 Platelet mean volume (Bld) [Entitic vol] Platelet mean volume [Entitic volume] in Blood by Automated count 6.6-10.1 [facility] Platelets Auto (Bld) [#/Vol] Ordered By: Michele Arteaga on 10-30-2024 Platelets (Bld) [#/Vol] Platelets [#/vol ume] in Blood by Automated count Low 150-450 [facility] Protein [Mass/volume] in Ser um or PlasmaOrdered By: Michele Arteaga on 10-30-2024 Protein [Mass/Vol] Protein [Mass/volume ] in Serum or Plasma Low 6.4-8.9 [facility] RBC Auto (Bld) [#/Vol]Ordere d By: Michele Arteaga on 10-30-2024 RBC (Bld) [#/Vol] Erythrocytes [#/volume] in Blood by Automated count Low 3.90-5.60 [facility] Serum or plasma albumin/glob ulin mass ratioOrdered By: Michele Arteaga on 10-30-2024 Albumin/Globulin [Mass ratio] Serum or plasma albumin/globulin mass ratio [facility] Serum or plasma non-glucuron idated bilirubin measurement (mass/volume)Ordered By: Michele Arteaga on 10-30-2024 Bilirubin.indirect [Mass/Vol] Serum or plasma non-glucuronidated bilirubin measurement (mass/volume) [facility] WBC Auto (Bld) [#/Vol]Ordere d By: Michele Arteaga on 10-30-2024 WBC (Bld) [#/Vol] Leukocytes [#/volume ] in Blood by Automated count 4.1-10.5 [facility] Alanine aminotransferase [En zymatic activity/volume] in Serum or PlasmaOrdered By: Adilene Weinberg on 10-02-2024 ALT [Catalytic activity/Vol] Alanine aminotransferase [Enzymatic activity/volume] in Serum or Plasma 7-52 [facility] Albumin [Mass/volume] in Ser um or Plasma by Bromocresol green (BCG) dye binding methoOrdered By: Adilene Weinberg on 10-02-2024 Albumin BCG dye [Mass/Vol] Albumin [Mass/volume] in Serum or Plasma by Bromocresol green (BCG) dye binding metho 3.5-5.7 [facility] Alkaline phosphatase [Enzyma tic activity/volume] in Serum or PlasmaOrdered By: Adilene Weinberg on 10-02-2024 ALP [Catalytic activity/Vol] Alkaline phosphatase [Enzymatic activity/volume] in Serum or Plasma 34-104 [facility] Aspartate aminotransferase [ Enzymatic activity/volume] in Serum or PlasmaOrdered By: Adilene Weinberg on 10-02-2024 AST [Catalytic activity/Vol] Aspartate aminotransferase [Enzymatic activity/volume] in Serum or Plasma 13-39 [facility] Basophils Auto (Bld) [#/Vol] Ordered By: Adilene Weinberg on 10-02-2024 Basophils (Bld) [#/Vol] Automated basoph il count 0.0-0.2 [facility] Basophils/100 WBC Auto (Bld) Ordered By: Adilene Weinberg on 10-02-2024 Basophils/100 WBC (Bld) Automated basophil % . [facility] Bilirubin.total [Mass/volume ] in Serum or PlasmaOrdered By: Adilene Weinberg on 10-02-2024 Bilirubin [Mass/Vol] Bilirubin.total [Mass/volume] in Serum or Plasma 0.3-1.0 [facility] CBC W Auto Differential pane l (Bld)on 10-02-2024 Basophils (Bld) [#/Vol] 0 10*3/uL 0.0 - 0.2 10*3/uL [facility] Basophils/100 WBC Manual cnt (Syn fld) 0.6 % . [facility] Eosinophils (Bld) [#/Vol] 0 10*3/uL 0.0 - 0.45 10*3/uL [facility] Eosinophils/100 WBC Manual cnt (Syn fld) 0.9 % . [facility] Erythrocyte distribution width (RBC) [Ratio] 14.4 % 12.0 - 14.8 % [facility] Hematocrit (Bld) [Volume fraction] 31 % Low 38.8 - 50.0 % [facility] Hemoglobin (Bld) [Mass/Vol] 10.5 g/dL Low 13.0 - 17.0 g/dL [facility] Interpretation and review of laboratory results Abnormal [facility] Lymphocytes (Bld) [#/Vol] 0.8 10*3/uL Low 1.00 - 4.8 10*3/uL [facility] Lymphocytes/100 WBC Manual cnt (Syn fld) 15 % . [facility] MCH (RBC) [Entitic mass] 32.4 pg 27.5 - 35.[address] [facility] MCHC (RBC) [Mass/Vol] 34 g/dL 32.5 - 35.6 g/dL [facility] MCV (RBC) [Entitic vol] 95.1 fL 83.5 - [address] [facility] Monocytes (Bld) [#/Vol] 0.6 10*3/uL 0.0 - 0.8 10*3/uL [facility] Monocytes+Macrophages/1 00 WBC Manual cnt (Syn fld) 11.4 % . [facility] Neutrophils (Bld) [#/Vol] 3.9 10*3/uL 1.8 - 7.7 10*3/uL [facility] Neutrophils/100 WBC Manual cnt (Syn fld) 72.1 % . [facility] NRBC 0.1 /100{WBC} 0 - 0.5 /100{WBC} [facility] Platelet mean volume (Bld) [Entitic vol] 8.1 fL 6.6 - 10.[address] [facility] Platelets (Bld) [#/Vol] 131 10*3/uL Low 150 - 450 10*3/uL [facility] RBC LM.HPF (Urine sed) [#/Area] 3.26 10*6/uL Low 3.90 - 5.60 10*6/uL [facility] WBC (Bld) [#/Vol] 5.4 10*3/uL 4.1 - 10.5 10*3/uL [facility] WBC LM.HPF (Urine sed) [#/Area] 5.4 10*3/uL 4.1 - 10.5 10*3/uL [facility] Calcium [Mass/volume] in Ser um or PlasmaOrdered By: Adilene Weinberg on 10-02-2024 Calcium [Mass/Vol] Calcium [Mass/volume ] in Serum or Plasma 8.6-10.3 [facility] Carbon dioxide, total [Moles /volume] in Serum or PlasmaOrdered By: Adilene Weinberg on 10-02-2024 CO2 [Moles/Vol] Carbon dioxide, tota l [Moles/volume] in Serum or Plasma 21.0-31.0 [facility] Chloride [Moles/volume] in S boby or PlasmaOrdered By: Adilene Weinberg on 10-02-2024 Chloride [Moles/Vol] Chloride [Moles/volume] in Serum or Plasma 98-107 [facility] Complete Blood Count Auto Di ffon 10-02-2024 Basophils (Bld) [#/Vol] 0.0 10*3/uL Normal 0.0-0.2 [facility] Comment on above: Result Comment: PERF ORMED BY: [address] [place] [address] PATHOLOGIST CARTOGRAPHIC ENGINEER LUDWIG URBINA M.D. Performed By: #### L DH, CMP, CBC ####[address] Basophils/100 WBC (Bld) 0.6 % Normal . T raul [facility] Comment on above: Performed By: #### L DH, CMP, CBC ####[place] [id number] [facility] Eosinophils (Bld) [#/Vol] 0.0 10*3/uL Normal 0.0-0.45 [facility] Comment on above: Performed By: #### L DH, CMP, CBC ####[place] [address] [place] Eosinophils/100 WBC (Bld) 0.9 % Normal . [facility] Comment on above: Performed By: #### L DH, CMP, CBC ####[address] Erythrocyte distribution width (RBC) [Ratio] 14.4 % Normal 12.0-14.8 [facility] Comment on above: Performed By: #### L DH, CMP, CBC ####[address] Hematocrit (Bld) [Volume fraction] 31.0 % Low 38.8-50.0 [facility] Comment on above: Performed By: #### L DH, CMP, CBC ####[address] Hemoglobin (Bld) [Mass/Vol] 10.5 g/dL Low 13.0-17.0 [facility] Comment on above: Performed By: #### L DH, CMP, CBC ####[address] Lymphocytes (Bld) [#/Vol] 0.8 10*3/uL Low 1.00-4.8 [facility] Comment on above: Performed By: #### L TYLER, CMP, CBC ####[address] Lymphocytes/100 WBC (Bld) 15.0 % Normal . [facility] Comment on above: Performed By: #### L DH, CMP, CBC ####[address] MCH (RBC) [Entitic mass] 32.4 pg Normal 27.5-35.2 [facility] Comment on above: Performed By: #### L DH, CMP, CBC ####[address] MCV (RBC) [Entitic vol] 95.1 fL Normal 83.5-101 T [facility] Comment on above: Performed By: #### L DH, CMP, CBC ####[address] Mean Corpuscular HGB Conc 34.0 g/dL Normal 32.5-35.6 [facility] Comment on above: Performed By: #### L DH, CMP, CBC ####[address] Monocytes (Bld) [#/Vol] 0.6 10*3/uL Normal 0.0-0.8 [facility] Comment on above: Performed By: #### L DH, CMP, CBC ####[address] Monocytes/100 WBC (Bld) 11.4 % Normal . [facility] Comment on above: Performed By: #### L DH, CMP, CBC ####[address] Neutrophils (Bld) [#/Vol] 3.9 10*3/uL Normal 1.8-7.7 [facility] Comment on above: Performed By: #### L DH, CMP, CBC ####[address] Neutrophils/100 WBC (Bld) 72.1 % Normal . [facility] Comment on above: Performed By: #### L DH, CMP, CBC ####[address] NRBC% 0.1 /100{WBC} Normal 0-0.5 The [facility] Comment on above: Performed By: #### L DH, CMP, CBC ####[address] Platelet mean volume (Bld) [Entitic vol] 8.1 fL Normal 6.6-10.1 The [facility] Comment on above: Performed By: #### L DH, CMP, CBC ####[place] [id number] [facility] Platelets (Bld) [#/Vol] 131 10*3/uL Low 150-450 The [facility] Comment on above: Performed By: #### L DH, CMP, CBC ####[place] [id number] [facility] RBC (Bld) [#/Vol] 3.26 10*6/uL Low 3.90-5.60 The [facility] Comment on above: Performed By: #### L DH, CMP, CBC ####[place] [id number] [facility] WBC (Bld) [#/Vol] 5.4 10*3/uL Normal 4.1-10.5 The [facility] Comment on above: Performed By: #### L DH, CMP, CBC ####[address] Comprehensive Metabolic Pane huan 10-02-2024 Albumin [Mass/Vol] 4.2 g/dL Normal 3.5-5.7 The [facility] Comment on above: Performed By: #### L DH, CMP, CBC ####[address] Albumin/Globulin [Mass ratio] 2.2 {ratio} Normal [facility] Comment on above: Performed By: #### L DH, CMP, CBC ####[address] ALP [Catalytic activity/Vol] 63 U/L Normal 34-104 [facility] Comment on above: Performed By: #### L DH, CMP, CBC ####[address] ALT [Catalytic activity/Vol] 32 U/L Normal 7-52 [facility] Comment on above: Performed By: #### L DH, CMP, CBC ####[address] Anion gap [Moles/Vol] 9.7 mmol/L Normal 6.0-15.0 [facility] Comment on above: Performed By: #### L DH, CMP, CBC ####[address] AST [Catalytic activity/Vol] 22 U/L Normal 13-39 [facility] Comment on above: Performed By: #### L DH, CMP, CBC ####[address] Bilirubin [Mass/Vol] 0.7 mg/dL Normal 0.3-1.0 [facility] Comment on above: Performed By: #### L DH, CMP, CBC ####[address] Calcium [Mass/Vol] 9.4 mg/dL Normal 8.6-10.3 The [facility] Comment on above: Performed By: #### L DH, CMP, CBC ####[address] Chloride [Moles/Vol] 104 mmol/L Normal 98-107 [facility] Comment on above: Performed By: #### L DH, CMP, CBC ####[address] CO2 [Moles/Vol] 30.6 mmol/L Normal 21.0-31.0 The [facility] Comment on above: Performed By: #### L DH, CMP, CBC ####[address] Creatinine [Mass/Vol] 1.27 mg/dL Normal 0.70-1.30 [facility] Comment on above: Performed By: #### L DH, CMP, CBC ####[address] Estimated GFR 54.679 mL/Min Normal The [facility] Comment on above: Performed By: #### L DH, CMP, CBC ####[address] Globulin (S) [Mass/Vol] 1.9 g/dL Normal T [facility] Comment on above: Performed By: #### L DH, CMP, CBC ####[address] Glucose [Mass/Vol] 107 mg/dL High 70-100 The [facility] Comment on above: Result Comment: [place] Glucose Reference Range is dependent on time and content of last meal. Glucose of more than 200 mg/dL in a nonstressed, ambulatory subject supports the diagnosis of Diabetes Mellitus. ADA recommended reference range Performed By: #### L DH, CMP, CBC ####[facility] [id number] [place] [address] [facility] Potassium [Moles/Vol] 4.3 mmol/L Normal 3.5-5.1 [facility] Comment on above: Performed By: #### L DH, CMP, CBC ####[place] [address] [place] [address] [facility] Protein [Mass/Vol] 6.1 g/dL Low 6.4-8.9 The [facility] Comment on above: Performed By: #### L DH, CMP, CBC ####[place] [address] [place] [id number] [facility] Sodium [Moles/Vol] 140 mmol/L Normal 136-145 [facility] Comment on above: Performed By: #### L DH, CMP, CBC ####[place] [address] [place] [address] [facility] Urea nitrogen [Mass/Vol] 21 mg/dL Normal 7-25 [facility] Comment on above: Performed By: #### L DH, CMP, CBC ####[facility] [place] [address] [facility] Comprehensive metabolic pane huan 10-02-2024 Albumin [Mass/Vol] 4.2 g/dL 3.5 - 5.7 g/dL [facility] Albumin/Globulin [Mass ratio] 2.2 {ratio} [facility] ALP [Catalytic activity/Vol] 63 U/L 34 - 104 U/L [facility] ALT [Catalytic activity/Vol] 32 U/L 7 - 52 U/L [facility] Anion gap [Moles/Vol] 9.7 mmol/L 6.0 - 15.0 meq/L [facility] AST [Catalytic activity/Vol] 22 U/L 13 - 39 U/L [facility] Bilirubin [Mass/Vol] 0.7 mg/dL 0.3 - 1 .0 mg/dL [facility] Calcium [Mass/Vol] 9.4 mg/dL 8.6 - 10. 3 mg/dL [facility] Chloride [Moles/Vol] 104 mmol/L 98 - 10 7 mmol/L [facility] CO2 [Moles/Vol] 30.6 mmol/L 21.0 - 31.0 mmol/L [facility] Creatinine (U) [Mass/Vol] 1.27 mg/dL 0.70 - 1.30 mg/dL [facility] GFR/1.73 sq M.predicted MDRD (S/P/Bld) [Vol rate/Area] 54.679 mL/min/{1.73_m2} mL/Min [facility] Globulin (S) [Mass/Vol] 1.9 g/dL N [facility] Glucose [Mass/Vol] 107 mg/dL High 70 - 100 mg/dL [facility] Comment on above: Random Glucose Refer ence Range is dependent on time and content of last meal. Glucose of more than 200 mg/dL in a nonstressed, ambulatory subject supports the diagnosis of Diabetes Mellitus. ADA recommended reference range Interpretation and review of laboratory results Abnormal [facility] Potassium [Moles/Vol] 4.3 mmol/L 3.5 - 5.1 mmol/L [facility] Protein [Mass/Vol] 6.1 g/dL Low 6.4 - 8.9 g/dL [facility] Sodium [Moles/Vol] 140 mmol/L 136 - 145 mmol/L [facility] Urea nitrogen [Mass/Vol] 21 mg/dL 7 - 25 mg/dL [facility] Creatinine [Mass/volume] in Serum or PlasmaOrdered By: Adilene Weinberg on 10-02-2024 Creatinine [Mass/Vol] Creatinine [Mass/volume] in Serum or Plasma 0.70-1.30 [facility] Eosinophils Auto (Bld) [#/Vo l]Ordered By: Adilene Weinberg on 10-02-2024 Eosinophils (Bld) [#/Vol] Automated eosinophil count 0.0-0.45 [facility] Eosinophils/100 WBC Auto (Bl d)Ordered By: Adilene Weinberg on 10-02-2024 Eosinophils/100 WBC (Bld) Automated eosinophil % . [facility] Erythrocyte distribution wid th Auto (RBC) [Ratio]Ordered By: Adilene Weinberg on 10-02-2024 Erythrocyte distribution width (RBC) [Ratio] Erythrocyte distribution width [Ratio] by Automated count 12.0-14.8 [facility] Globulin Calc (S) [Mass/Vol] Ordered By: Adilene Weinberg on 10-02-2024 Globulin (S) [Mass/Vol] Serum globulin measurement by calculation (mass/volume) [facility] Glucose [Mass/volume] in Ser um or PlasmaOrdered By: Adilene Weinberg on 10-02-2024 Glucose [Mass/Vol] Glucose [Mass/volume ] in Serum or Plasma High 70-100 [facility] Comment on above: ADA recommended [...] of Blood by Automated count Low 38.8-50.0 [facility] Hemoglobin [Mass/volume] in BloodOrdered By: Adilene Weinberg on 10-02-2024 Hemoglobin (Bld) [Mass/Vol] Hemoglobin [Mass/volume] in Blood Low 13.0-17.0 [facility] LDH Lactate Dehydrogenaseon 10-02-2024 LDH Lactate Dehydrogenase 215 U/L Normal 140-271 [facility] Comment on above: Result Comment: PERF ORMED BY: [place] [address] [place] [id number] PATHOLOGIST CARTOGRAPHIC ENGINEER LUDWIG URBINA M.D. Performed By: #### L DH, CMP, CBC ####[facility] [id number] [place] [address] [facility] LDH Lactate to pyruvate reac tion [Catalytic activity/Vol]on 10-02-2024 LDH LACTATE DEHYDROGENASE 215 U/L 140 - 271 U/L [facility] Lactate dehydrogenase [Enzym atic activity/volume] in Serum or Plasma by Lactate to pyOrdered By: Adilene Weinberg on 10-02-2024 LDH Lactate to pyruvate reaction [Catalytic activity/Vol] Lactate dehydrogenase [Enzymatic activity/volume] in Serum or Plasma by Lactate to py 140-271 [facility] Leukocytes [#/volume] correc bert for nucleated erythrocytes in Blood by Automated counOrdered By: Adilene Weinberg on 10-02-2024 WBC corrected for nucl RBC Auto (Bld) [#/Vol] Leukocytes [#/volume] corrected for nucleated erythrocytes in Blood by Automated coun 4.1-10.5 [facility] Lymphocytes Auto (Bld) [#/Vo l]Ordered By: Adilene Weinberg on 10-02-2024 Lymphocytes (Bld) [#/Vol] Lymphocytes [#/volume] in Blood by Automated count Low 1.00-4.8 [facility] Lymphocytes/100 WBC Auto (Bl d)Ordered By: Adilene Weinberg on 10-02-2024 Lymphocytes/100 WBC (Bld) Lymphocytes/100 leukocytes in Blood by Automated count . [facility] MCH Auto (RBC) [Entitic mass ]Ordered By: Adilene Weinberg on 10-02-2024 MCH (RBC) [Entitic mass] MCH [Entitic mass] by Automated count 27.5-35.2 [facility] MCHC Auto (RBC) [Mass/Vol]Or dered By: Adilene Weinberg on 10-02-2024 MCHC (RBC) [Mass/Vol] MCHC [Mass/volume] by Automated count 32.5-35.6 [facility] MCV Auto (RBC) [Entitic vol] Ordered By: Adilene Weinberg on 10-02-2024 MCV (RBC) [Entitic vol] MCV [Entitic vol ume] by Automated count 83.5-101 [facility] Monocytes Auto (Bld) [#/Vol] Ordered By: Adilene Weinberg on 10-02-2024 Monocytes (Bld) [#/Vol] Automated blood monocyte count 0.0-0.8 [facility] Monocytes/100 WBC Auto (Bld) Ordered By: Adilene Weinberg on 10-02-2024 Monocytes/100 WBC (Bld) Automated monocyte % . [facility] Neutrophils Auto (Bld) [#/Vo l]Ordered By: Adilene Weinberg on 10-02-2024 Neutrophils (Bld) [#/Vol] Neutrophils [#/volume] in Blood by Automated count 1.8-7.7 [facility] Neutrophils/100 WBC Auto (Bl d)Ordered By: Adilene Weinberg on 10-02-2024 Neutrophils/100 WBC (Bld) Automated neutrophil % . [facility] No Panel Informationon 10-02 [facility] No Panel InformationOrdered By: Adilene Weinberg on 10-02-2024 Estimated GFR (CKD-EPI) 54.679 mL/Min [facility] Creatinine Clearance (Chem N/A [facility] Nucleated erythrocytes [Pres ence] in Blood by Automated countOrdered By: Adilene Weinberg on 10-02-2024 Nucleated RBC Auto Ql (Bld) Nucleated erythrocytes [Presence] in Blood by Automated count 0-0.5 [facility] Platelet mean volume Auto (B ld) [Entitic vol]Ordered By: Adilene Weinberg on 10-02-2024 Platelet mean volume (Bld) [Entitic vol] Platelet mean volume [Entitic volume] in Blood by Automated count 6.6-10.1 [facility] Platelets Auto (Bld) [#/Vol] Ordered By: Adilene Weinberg on 10-02-2024 Platelets (Bld) [#/Vol] Platelets [#/vol ume] in Blood by Automated count Low 150-450 [facility] Potassium [Moles/volume] in Serum or PlasmaOrdered By: Adilene Weinberg on 10-02-2024 Potassium [Moles/Vol] Potassium [Moles/volume] in Serum or Plasma 3.5-5.1 [facility] Protein [Mass/volume] in Ser um or PlasmaOrdered By: Adilene Weinberg on 10-02-2024 Protein [Mass/Vol] Protein [Mass/volume ] in Serum or Plasma Low 6.4-8.9 [facility] RBC Auto (Bld) [#/Vol]Ordere d By: Adilene Weinberg on 10-02-2024 RBC (Bld) [#/Vol] Erythrocytes [#/volume] in Blood by Automated count Low 3.90-5.60 [facility] Serum or plasma albumin/glob ulin mass ratioOrdered By: Adilene Weinberg on 10-02-2024 Albumin/Globulin [Mass ratio] Serum or plasma albumin/globulin mass ratio [facility] Serum or plasma anion gap de terminationOrdered By: Adilene Weinberg on 10-02-2024 Anion gap [Moles/Vol] Serum or plasma an ion gap determination 6.0-15.0 [facility] Sodium [Moles/volume] in Ser um or PlasmaOrdered By: Adilene Weinberg on 10-02-2024 Sodium [Moles/Vol] Sodium [Moles/volume ] in Serum or Plasma 136-145 [facility] US extremity nonvascularon 1 US extremity nonvascular [facility] [place] [address] Ultrasound Report Signed Patient: Sebastian Hannon MR#: [id number] 0 : 1935 Acct:[id number] Age/Sex: 89 / M ADM Date: 10/02/24 Loc: Room: Type: [facility] Attending Dr: Adilene Weinberg MD Ordering [...] Abdoul William M.D.10/02/2024 5:30 PM Dictation Location: [place] [address] Tech: Siria Gardner Transcribed By: PHYLLIS 10/02/24 173 Dictated By: Abdoul William DO 10/02/24 172 Signed By: 10/02/24 173 Normal [facility] Urea nitrogen [Mass/volume] in Serum or PlasmaOrdered By: Adilene Weinberg on 10-02-2024 Urea nitrogen [Mass/Vol] Urea nitrogen [Mass/volume] in Serum or Plasma 04-27 [facility] WBC Auto (Bld) [#/Vol]Ordere d By: Adilene Weinberg on 10-02-2024 WBC (Bld) [#/Vol] Leukocytes [#/volume ] in Blood by Automated count 4.1-10.5 [facility] Alanine aminotransferase [En zymatic activity/volume] in Serum or PlasmaOrdered By: Michele Arteaga on 07-04-2024 ALT [Catalytic activity/Vol] 25 U/L Normal 7-52 [facility] Comment on above: Performed By: #### C REAT, CBC, HEPATIC, ESR ####[address] Albumin [Mass/volume] in Ser um or Plasma by Bromocresol green (BCG) dye binding methoOrdered By: Michele Arteaga on 07-04-2024 Albumin BCG dye [Mass/Vol] 4.1 g/dL 3.5-5.7 [facility] Alkaline phosphatase [Enzyma tic activity/volume] in Serum or PlasmaOrdered By: Michele Arteaga on 07-04-2024 ALP [Catalytic activity/Vol] 68 U/L Normal 34-104 [facility] Comment on above: Performed By: #### C REAT, CBC, HEPATIC, ESR ####[address] Aspartate aminotransferase [ Enzymatic activity/volume] in Serum or PlasmaOrdered By: Michele Arteaga on 07-04-2024 AST [Catalytic activity/Vol] 23 U/L Normal 13-39 [facility] Comment on above: Performed By: #### C REAT, CBC, HEPATIC, ESR ####[address] Automated basophil %Ordered By: Michele Arteaga on 07-04-2024 Basophils/100 WBC (Bld) 0.8 % Normal . [facility] Comment on above: Performed By: #### C REAT, CBC, HEPATIC, ESR ####[place] [id number] [facility] Automated basophil countOrde red By: Michele Arteaga on 07-04-2024 Basophils (Bld) [#/Vol] 0.0 10*3/uL Normal 0.0-0.2 [facility] Comment on above: Performed By: #### C REAT, CBC, HEPATIC, ESR ####[address] Automated blood monocyte cou ntOrdered By: Michele Arteaga on 07-04-2024 Monocytes (Bld) [#/Vol] 0.5 10*3/uL Normal 0.0-0.8 [facility] Comment on above: Performed By: #### C REAT, CBC, HEPATIC, ESR ####[address] Automated eosinophil %Ordere d By: Michele Arteaga on 07-04-2024 Eosinophils/100 WBC (Bld) 2.5 % Normal . [facility] Comment on above: Performed By: #### C REAT, CBC, HEPATIC, ESR ####[address] Automated eosinophil countOr dered By: Michele Arteaga on 07-04-2024 Eosinophils (Bld) [#/Vol] 0.1 10*3/uL Normal 0.0-0.45 [facility] Comment on above: Performed By: #### C REAT, CBC, HEPATIC, ESR ####[address] Automated monocyte %Ordered By: Michele Arteaga on 07-04-2024 Monocytes/100 WBC (Bld) 13.2 % Normal . [facility] Comment on above: Performed By: #### C REAT, CBC, HEPATIC, ESR ####[address] Automated neutrophil %Ordere d By: Michele Arteaga on 07-04-2024 Neutrophils/100 WBC (Bld) 67.5 % Normal . [facility] Comment on above: Performed By: #### C REAT, CBC, HEPATIC, ESR ####[address] Bilirubin.direct [Mass/volum e] in Serum or PlasmaOrdered By: Michele Arteaga on 07-04-2024 Bilirubin.direct [Mass/Vol] 0.20 mg/dL High 0.03-0.18 [facility] Bilirubin.total [Mass/volume ] in Serum or PlasmaOrdered By: Michele Arteaga on 07-04-2024 Bilirubin [Mass/Vol] 0.7 mg/dL Normal 0.3-1.0 [facility] Comment on above: Performed By: #### C REAT, CBC, HEPATIC, ESR ####[address] Complete Blood Count Auto Di ffon 07-04-2024 Mean Corpuscular HGB Conc 34.0 g/dL Normal 32.5-35.6 [facility] Comment on above: Performed By: #### C REAT, CBC, HEPATIC, ESR ####[place] [id number] NRBC% 0.0 /100{WBC} Normal 0-0.5 [facility] Comment on above: Performed By: #### C REAT, CBC, HEPATIC, ESR ####[place] [id number] [facility] Creatinineon 07-04-2024 GFR/1.73 sq M.predicted MDRD (S/P/Bld) [Vol rate/Area] 53.501 mL/min/{1.73_m2} Normal [facility] Comment on above: Result Comment: PERF ORMED BY: [place] [address] [place] [address] PATHOLOGIST CARTOGRAPHIC ENGINEER NIYA BARRERA M.D. Performed By: #### C REAT, CBC, HEPATIC, ESR ####[place] [id number] [facility] Creatinine [Mass/volume] in Serum or PlasmaOrdered By: Michele Arteaga on 07-04-2024 Creatinine [Mass/Vol] 1.30 mg/dL Normal 0.70-1.30 [facility] Comment on above: Performed By: #### C REAT, CBC, HEPATIC, ESR ####[address] Erythrocyte Sedimentation Ra shayy 07-04-2024 ESR (Bld) [Velocity] 6 mm/h Normal 0-19 [facility] Comment on above: Result Comment: PERF ORMED BY: [place] [address] [place] [address] PATHOLOGIST CARTOGRAPHIC ENGINEER NIYA BARRERA M.D. Performed By: #### C REAT, CBC, HEPATIC, ESR ####[place] [id number] Erythrocyte distribution wid th [Ratio] by Automated countOrdered By: Michele Arteaga on 07-04-2024 Erythrocyte distribution width (RBC) [Ratio] 13.5 % Normal 12.0-14.8 [facility] Comment on above: Performed By: #### C REAT, CBC, HEPATIC, ESR ####[address] Erythrocyte sedimentation ra te by Photometric methodOrdered By: Michele Arteaga on 07-04-2024 ESR Photometric method (Bld) [Velocity] 6 mm/hr 0-19 [facility] Erythrocytes [#/volume] in B lood by Automated countOrdered By: Michele Arteaga on 07-04-2024 RBC (Bld) [#/Vol] 3.14 10*6/uL Low 3.90-5.60 [facility] Comment on above: Performed By: #### C REAT, CBC, HEPATIC, ESR ####[address] Hematocrit [Volume Fraction] of Blood by Automated countOrdered By: Michele Arteaga on 07-04-2024 Hematocrit (Bld) [Volume fraction] 29.5 % Low 38.8-50.0 [facility] Comment on above: Performed By: #### C REAT, CBC, HEPATIC, ESR ####[address] Hemoglobin [Mass/volume] in BloodOrdered By: Michele Arteaga on 07-04-2024 Hemoglobin (Bld) [Mass/Vol] 10.0 g/dL Low 13.0-17.0 [facility] Comment on above: Performed By: #### C REAT, CBC, HEPATIC, ESR ####[place] [id number] [place] [id number] [facility] Hepatic Panelon 07-04-2024 Albumin [Mass/Vol] 4.1 g/dL Normal 3.5-5.7 [facility] Comment on above: Performed By: #### C REAT, CBC, HEPATIC, ESR ####[place] [id number] [facility] Bilirubin,Indirect 0.5 mg/dL Normal [facility] Comment on above: Performed By: #### C REAT, CBC, HEPATIC, ESR ####[address] Bilirubin.indirect [Mass/Vol] 0.20 mg/dL High 0.03-0.18 [facility] Comment on above: Performed By: #### C REAT, CBC, HEPATIC, ESR ####[address] Leukocytes [#/volume] correc bert for nucleated erythrocytes in Blood by Automated counOrdered By: Michele Arteaga on 07-04-2024 WBC corrected for nucl RBC Auto (Bld) [#/Vol] 3.8 10*3/uL Low 4.1-10.5 [facility] Leukocytes [#/volume] in Blo od by Automated countOrdered By: Michele Arteaga on 07-04-2024 WBC (Bld) [#/Vol] 3.8 10*3/uL Low 4.1-10.5 [facility] Comment on above: Performed By: #### C REAT, CBC, HEPATIC, ESR ####[place] [id number] [facility] Lymphocytes [#/volume] in Bl ood by Automated countOrdered By: Michele Arteaga on 07-04-2024 Lymphocytes (Bld) [#/Vol] 0.6 10*3/uL Low 1.00-4.8 [facility] Comment on above: Performed By: #### C REAT, CBC, HEPATIC, ESR ####[place] [address] [place] Lymphocytes/100 leukocytes i n Blood by Automated countOrdered By: Michele Arteaga on 07-04-2024 Lymphocytes/100 WBC (Bld) 16.0 % Normal . [facility] Comment on above: Performed By: #### C REAT, CBC, HEPATIC, ESR ####[place] [id number] MCH [Entitic mass] by Automa bert countOrdered By: Michele Arteaga on 07-04-2024 MCH (RBC) [Entitic mass] 31.9 pg Normal 27.5-35.2 [facility] Comment on above: Performed By: #### C REAT, CBC, HEPATIC, ESR ####[address] MCHC Auto (RBC) [Mass/Vol]Or dered By: Michele Arteaga on 07-04-2024 MCHC (RBC) [Mass/Vol] 34.0 g/dL 32.5-35.6 [facility] MCV [Entitic volume] by Auto mated countOrdered By: Michele Arteaga on 07-04-2024 MCV (RBC) [Entitic vol] 93.9 fL Normal 83.5-101 [facility] Comment on above: Performed By: #### C REAT, CBC, HEPATIC, ESR ####[address] Neutrophils [#/volume] in Bl ood by Automated countOrdered By: Michele Arteaga on 07-04-2024 Neutrophils (Bld) [#/Vol] 2.6 10*3/uL Normal 1.8-7.7 [facility] Comment on above: Performed By: #### C REAT, CBC, HEPATIC, ESR ####[address] No Panel InformationOrdered By: Michele Arteaga on 07-04-2024 Estimated GFR (CKD-EPI) 53.501 mL/Min [facility] Creatinine Clearance (Chem N/A [facility] Nucleated erythrocytes [Pres ence] in Blood by Automated countOrdered By: Michele Arteaga on 07-04-2024 Nucleated RBC Auto Ql (Bld) 0.0 /100{WBC} 0-0.5 [facility] Platelet mean volume [Entiti c volume] in Blood by Automated countOrdered By: Michele Arteaga on 07-04-2024 Platelet mean volume (Bld) [Entitic vol] 8.7 fL Normal 6.6-10.1 [facility] Comment on above: Performed By: #### C REAT, CBC, HEPATIC, ESR ####[address] Platelets [#/volume] in Bloo d by Automated countOrdered By: Michele Arteaga on 07-04-2024 Platelets (Bld) [#/Vol] 123 10*3/uL Low 150-450 [facility] Comment on above: Performed By: #### C REAT, CBC, HEPATIC, ESR ####[address] Protein [Mass/volume] in Ser um or PlasmaOrdered By: Michele Arteaga on 07-04-2024 Protein [Mass/Vol] 5.9 g/dL Low 6.4-8.9 [facility] Comment on above: Performed By: #### C REAT, CBC, HEPATIC, ESR ####[address] Serum globulin measurement b y calculation (mass/volume)Ordered By: Michele Arteaga on 07-04-2024 Globulin (S) [Mass/Vol] 1.8 g/dL Normal [facility] Comment on above: Performed By: #### C REAT, CBC, HEPATIC, ESR ####[address] Serum or plasma albumin/glob ulin mass ratioOrdered By: Michele Arteaga on 07-04-2024 Albumin/Globulin [Mass ratio] 2.3 {ratio} Normal [facility] Comment on above: Performed By: #### C REAT, CBC, HEPATIC, ESR ####[address] Serum or plasma non-glucuron idated bilirubin measurement (mass/volume)Ordered By: Michele Arteaga on 07-04-2024 Bilirubin.indirect [Mass/Vol] 0.5 mg/dL [facility] GLUCOSE POCT GLUCOMETERSon 0 07-03-2024 Glucose [Mass/Vol] 83 mg/dL [facility] Comment on above: Random Glucose Refer ence Range is dependent on time and content of last meal. Glucose of more than 200 mg/dL in a nonstressed, ambulatory subject supports the diagnosis of Diabetes Mellitus. [facility] [facility] Capillary blood glucose kumar urement by glucometer (mass/volume)Ordered By: Adilene Weinberg on 06-30-2024 Glucose [Mass/Vol] 83 mg/dL Normal [facility] Comment on above: Random Glucose Refer ence Range is dependent on time and content of last meal. Glucose of more than 200 mg/dL in a nonstressed, ambulatory subject supports the diagnosis of Diabetes Mellitus. Result Comment: [facility] Glucose Reference Range is dependent on time and content of last meal. Glucose of more than 200 mg/dL in a nonstressed, ambulatory subject supports the diagnosis of Diabetes Mellitus. PERFORMED BY: [place] [address] PATHOLOGIST CARTOGRAPHIC ENGINEER NIYA BARRERA M.D. Performed By: #### G LISA ####Point of Care testing, Glucose Glucometer (BldC) [M ass/Vol]Ordered By: Adilene Weinberg on 06-30-2024 Glucose [Mass/Vol] Capillary blood glucose measurement by glucometer (mass/volume) [facility] Comment on above: Random Glucose Refer ence Range is dependent on time and content of last meal. Glucose of more than 200 mg/dL in a nonstressed, ambulatory subject supports the diagnosis of Diabetes Mellitus. PET tumor subq tx strat wbon 06-30-2024 PET tumor subq tx strat wb [facility] Main [place] [id number] Nuclear Medicine Report Signed Patient: Sebastian Hannon MR#: [id number] 0 : 1935 Acct:[id number] Age/Sex: 88 / M ADM Date: 06/30/24 Loc: XT Room: Type: [facility] RCR Attending Dr: Adilene Weinberg MD Copies [...] Silver Jr., D.O.06/30/2024 3:08 PM Dictation Location: [place] [address] Transcribed By: [facility] 06/30/24 1508 Dictated By: Festus Silver Jr, DO 06/30/24 1458 Signed By: 06/30/24 1508 Normal [facility] Alanine aminotransferase [En zymatic activity/volume] in Serum or PlasmaOrdered By: Adilene Weinberg on 06-12-2024 ALT [Catalytic activity/Vol] 29 U/L Normal [facility] Comment on above: Order Comment: STAT BUN/CREAT FOR CT Performed By: #### C MP, LDH ####[facility] [id number] [place] [id number] [facility] ALT [Catalytic activity/Vol] Alanine aminotransferase [Enzymatic activity/volume] in Serum or Plasma [facility] Albumin [Mass/volume] in Ser um or Plasma by Bromocresol green (BCG) dye binding methoOrdered By: Adilene Weinberg on 06-12-2024 Albumin BCG dye [Mass/Vol] 4.5 g/dL 3.5-5.7 [facility] Albumin BCG dye [Mass/Vol] Albumin [Mass/volume] in Serum or Plasma by Bromocresol green (BCG) dye binding metho 3.5-5.7 [facility] Alkaline phosphatase [Enzyma tic activity/volume] in Serum or PlasmaOrdered By: Adilene Weinberg on 06-12-2024 ALP [Catalytic activity/Vol] 77 U/L Normal [facility] Comment on above: Order Comment: STAT BUN/CREAT FOR CT Performed By: #### C MP, LDH ####[facility] [id number] ALP [Catalytic activity/Vol] Alkaline phosphatase [Enzymatic activity/volume] in Serum or Plasma [facility] Aspartate aminotransferase [ Enzymatic activity/volume] in Serum or PlasmaOrdered By: Adilene Weinberg on 06-12-2024 AST [Catalytic activity/Vol] 23 U/L Normal [facility] Comment on above: Order Comment: STAT BUN/CREAT FOR CT Performed By: #### C MP, LDH ####[facility] [id number] AST [Catalytic activity/Vol] Aspartate aminotransferase [Enzymatic activity/volume] in Serum or Plasma [facility] Automated basophil %Ordered By: Adilene Weinberg on 06-12-2024 Basophils/100 WBC (Bld) 1.0 % Normal . [facility] Comment on above: Performed By: #### C BC #### [facility] [address] Automated basophil countOrde red By: Adilene Weinberg on 06-12-2024 Basophils (Bld) [#/Vol] 0.0 10*3/uL Normal 0.0-0.2 [facility] Comment on above: Result Comment: PERF ORMED BY: [place] [address] PATHOLOGIST CARTOGRAPHIC ENGINEER NIYA BARRERA M.D. Performed By: #### C BC #### [facility] [address] [place] [address] Automated blood monocyte cou ntOrdered By: Adilene Weinberg on 06-12-2024 Monocytes (Bld) [#/Vol] 0.6 10*3/uL Normal 0.0-0.8 [facility] Comment on above: Performed By: #### C BC #### [address] Automated eosinophil %Ordere d By: Adilene Weinberg on 06-12-2024 Eosinophils/100 WBC (Bld) 3.6 % Normal . [facility] Comment on above: Performed By: #### C BC #### [address] Automated eosinophil countOr dered By: Adilene Weinberg on 06-12-2024 Eosinophils (Bld) [#/Vol] 0.2 10*3/uL Normal 0.0-0.45 [facility] Comment on above: Performed By: #### C BC #### [address] Automated monocyte %Ordered By: Adilene Weinberg on 06-12-2024 Monocytes/100 WBC (Bld) 13.3 % Normal . [facility] Comment on above: Performed By: #### C BC #### [address] Automated neutrophil %Ordere d By: Adilene Weinberg on 06-12-2024 Neutrophils/100 WBC (Bld) 59.7 % Normal . [facility] Comment on above: Performed By: #### C BC #### [address] Basophils Auto (Bld) [#/Vol] Ordered By: Adilene Weinberg on 06-12-2024 Basophils (Bld) [#/Vol] Automated basoph il count 0.0-0.2 [facility] Basophils/100 WBC Auto (Bld) Ordered By: Adilene Weinberg on 06-12-2024 Basophils/100 WBC (Bld) Automated basophil % . [facility] Bilirubin.total [Mass/volume ] in Serum or PlasmaOrdered By: Adilene Weinberg on 06-12-2024 Bilirubin [Mass/Vol] 0.7 mg/dL Normal 0.3-1.0 [facility] Comment on above: Order Comment: STAT BUN/CREAT FOR CT Performed By: #### C MP, LDH ####[facility] [address] [place] [address] [facility] Bilirubin [Mass/Vol] Bilirubin.total [Mass/volume] in Serum or Plasma 0.3-1.0 [facility] CBC W Auto Differential pane l (Bld)on 06-12-2024 Basophils (Bld) [#/Vol] 0.0 10*3/uL 0.0 - 0.2 10*3/uL [facility] Basophils/100 WBC Manual cnt (Syn fld) 1.0 % . [facility] Eosinophils (Bld) [#/Vol] 0.2 10*3/uL 0.0 - 0.45 10*3/uL [facility] Eosinophils/100 WBC Manual cnt (Syn fld) 3.6 % . [facility] Erythrocyte distribution width (RBC) [Ratio] 13.9 % 12.0 - 14.8 % [facility] Hematocrit (Bld) [Volume fraction] 32.6 % Low 38.8 - 50.0 % [facility] Hemoglobin (Bld) [Mass/Vol] 11.0 g/dL Low 13.0 - 17.0 g/dL [facility] Interpretation and review of laboratory results Abnormal [facility] Lymphocytes (Bld) [#/Vol] 1.0 10*3/uL 1.00 - 4.8 10*3/uL [facility] Lymphocytes/100 WBC Manual cnt (Syn fld) 22.4 % . [facility] MCH (RBC) [Entitic mass] 31.6 pg 27.5 - 35.[address] [facility] MCHC (RBC) [Mass/Vol] 33.9 g/dL 32.5 - 35.6 g/dL [facility] MCV (RBC) [Entitic vol] 93.4 fL 83.5 - [address] [facility] Monocytes (Bld) [#/Vol] 0.6 10*3/uL 0.0 - 0.8 10*3/uL [facility] Monocytes+Macrophages/1 00 WBC Manual cnt (Syn fld) 13.3 % . [facility] Neutrophils (Bld) [#/Vol] 2.6 10*3/uL 1.8 - 7.7 10*3/uL [facility] Neutrophils/100 WBC Manual cnt (Syn fld) 59.7 % . [facility] NRBC 0.1 /100{WBC} 0 - 0.5 /100{WBC} [facility] Plate[facility] mean volume (Bld) [Entitic vol] 8.0 fL 6.6 - 10.1 fL [facility] Platelets (Bld) [#/Vol] 132 10*3/uL Low 150 - 450 10*3/uL [facility] RBC LM.HPF (Urine sed) [#/Area] 3.49 /[HPF] Low 3.90 - 5.60 [facility] WBC (Bld) [#/Vol] 4.4 10*3/uL 4.1 - 10.5 10*3/uL [facility] WBC LM.HPF (Urine sed) [#/Area] 4.4 10*3/uL 4.1 - 10.5 10*3/uL [facility] CT abdomen pelvis w conon CT abdomen pelvis w con [facility] Main [place] [address] [place] [address] CT Scan Report Signed Patient: Sebastian Hannon MR#: [id number] 0 : 1935 Acct:[id number] Age/Sex: 88 / M ADM Date: 06/12/24 [...] Tereso Lynn M.D.06/12/2024 1:15 PM Dictation Location: [place] [address] Transcribed By: [facility] 06/12/24 1315 Dictated By: Tereso Lynn II, MD 06/12/24 1308 Signed By: 06/12/24 1315 Normal [facility] CT chest w conon 06-12-2024 CT chest w con [facility] [place] [address] CT Scan Report Signed Patient: Sebastian Hannon MR#: [id number] 0 : 1935 Acct:[id number] Age/Sex: 88 / M ADM Date: 06/12/24 Loc: [facility]: [facility]: Adilene Weinberg MD Copies to: [...] Tereso Lynn M.D.06/12/2024 1:04 PM Dictation Location: [place] [address] Transcribed By: PHYLLIS 06/12/24 1304 Dictated By: Tereso Lynn II, MD 06/12/24 1249 Signed By: 06/12/24 1304 Normal [facility] CT head/brain wo/w conon CT head/brain wo/w con [facility] Main [place] [id number] CT Scan Report Signed Patient: Sebastian Hannon MR#: [id number] 0 : 1935 Acct:[id number] Age/Sex: 88 / M ADM Date: 06/12/24 Loc: XT Room: Type: [facility] Attending Dr: [...] Hafsa Keen M.D.06/12/2024 11:58 AM Dictation Location: [place] [address] Transcribed By: [facility] 06/12/24 1158 Dictated By: Hafsa Keen MD 06/12/24 1154 Signed By: 06/12/24 1158 Normal [facility] CT soft tissue neck danisha saldaña 06-12-2024 CT soft tissue neck w [facility] Main [place] [id number] CT Scan Report Signed Patient: Sebastian Hannon MR#: [id number] 0 : 1935 Acct:[id number] Age/Sex: 88 / M ADM Date: 06/12/24 Loc: XT Room: Type: [facility] Attending Dr: [...] Tereso Lynn M.D.06/12/2024 12:24 PM Dictation Location: [place] [address] Transcribed By: PHYLLIS 06/12/24 1224 Dictated By: Tereso Lynn II, MD 06/12/24 1213 Signed By: 06/12/24 1224 Normal [facility] Calcium [Mass/volume] in Ser um or PlasmaOrdered By: Adilene Weinberg on 06-12-2024 Calcium [Mass/Vol] 9.5 mg/dL Normal 8.6-10.3 [facility] Comment on above: Order Comment: STAT BUN/CREAT FOR CT Performed By: #### C MP, LDH ####[place] [id number] [address] Calcium [Mass/Vol] Calcium [Mass/volume ] in Serum or Plasma 8.6-10.3 [facility] Carbon dioxide, total [Moles /volume] in Serum or PlasmaOrdered By: Adilene Weinberg on 06-12-2024 CO2 [Moles/Vol] 28.4 mmol/L Normal 21.0-31.0 [facility] Comment on above: Order Comment: STAT BUN/CREAT FOR CT Performed By: #### C MP, LDH ####[address] CO2 [Moles/Vol] Carbon dioxide, tota l [Moles/volume] in Serum or Plasma 21.0-31.0 [facility] Chloride [Moles/volume] in S boby or PlasmaOrdered By: Adilene Weinberg on 06-12-2024 Chloride [Moles/Vol] 102 mmol/L Normal 98-107 [facility] Comment on above: Order Comment: STAT BUN/CREAT FOR CT Performed By: #### C MP, LDH ####[address] Chloride [Moles/Vol] Chloride [Moles/volume] in Serum or Plasma 98-107 [facility] Complete Blood Count Auto Di ffon 06-12-2024 Mean Corpuscular HGB Conc 33.9 g/dL Normal 32.5-35.6 [facility] Comment on above: Performed By: #### C BC #### [facility] [address] NRBC% 0.1 /100{WBC} Normal 0-0.5 [facility] Comment on above: Performed By: #### C BC #### [facility] [address] Comprehensive Metabolic Pane huan 06-12-2024 Albumin [Mass/Vol] 4.5 g/dL Normal 3.5-5.7 [facility] Comment on above: Order Comment: STAT BUN/CREAT FOR CT Performed By: #### C MP, LDH ####[facility] Creatinine Clr Calc Pharmacy 46.01 Normal [facility] Comment on above: Order Comment: STAT BUN/CREAT FOR CT Performed By: #### C MP, LDH ####[facility] GFR/1.73 sq M.predicted MDRD (S/P/Bld) [Vol rate/Area] 59.489 mL/min/{1.73_m2} Normal [facility] Comment on above: Order Comment: STAT BUN/CREAT FOR CT Performed By: #### C MP, LDH ####[place] [address] [address] Comprehensive metabolic pane [facility] 06-12-2024 Albumin [Mass/Vol] 4.5 g/dL 3.5 - 5.7 g/dL [facility] Albumin/Globulin [Mass ratio] 1.9 {ratio} [facility] ALP [Catalytic activity/Vol] 77 U/L 34 - 104 U/L [facility] ALT [Catalytic activity/Vol] 29 U/L 7 - 52 U/L [facility] Anion gap [Moles/Vol] 11.7 mmol/L 6.0 - 15.0 [facility] AST [Catalytic activity/Vol] 23 U/L 13 - 39 U/L [facility] Bilirubin [Mass/Vol] 0.7 mg/dL 0.3 - 1 .0 mg/dL [facility] Calcium [Mass/Vol] 9.5 mg/dL 8.6 - 10. 3 mg/dL [facility] Chloride [Moles/Vol] 102 mmol/L 98 - 10 7 mmol/L [facility] CO2 [Moles/Vol] 28.4 mmol/L 21.0 - 31.0 mmol/L [facility] Creatinine (U) [Mass/Vol] 1.19 mg/dL 0.70 - 1.30 mg/dL [facility] CREATININE CLR CALC PHARMACY 46.01 [facility] GFR/1.73 sq M.predicted MDRD (S/P/Bld) [Vol rate/Area] 59.489 mL/min/{1.73_m2} [facility] Globulin (S) [Mass/Vol] 2.4 g/dL N [facility] Glucose [Mass/Vol] 102 mg/dL High 70 - 100 mg/dL [facility] Comment on above: Random Glucose Refer ence Range is dependent on time and content of last meal. Glucose of more than 200 mg/dL in a nonstressed, ambulatory subject supports the diagnosis of Diabetes Mellitus. ADA recommended reference range Interpretation and review of laboratory results Abnormal [facility] Potassium [Moles/Vol] 4.1 mmol/L 3.5 - 5.1 mmol/L [facility] Protein [Mass/Vol] 6.9 g/dL 6.4 - 8.9 g/dL [facility] Sodium [Moles/Vol] 138 mmol/L 136 - 145 mmol/L [facility] Urea nitrogen [Mass/Vol] 21 mg/dL 7 - 25 mg/dL [facility] Creatinine [Mass/volume] in Serum or PlasmaOrdered By: Adilene Weinberg on 06-12-2024 Creatinine [Mass/Vol] 1.19 mg/dL Normal 0.70-1.30 [facility] Comment on above: Order Comment: STAT BUN/CREAT FOR CT Performed By: #### C MP, LDH ####[facility] [id number] Creatinine [Mass/Vol] Creatinine [Mass/volume] in Serum or Plasma 0.70-1.30 [facility] Eosinophils Auto (Bld) [#/Vo l]Ordered By: Adilene Weinberg on 06-12-2024 Eosinophils (Bld) [#/Vol] Automated eosinophil count 0.0-0.45 [facility] Eosinophils/100 WBC Auto (Bl d)Ordered By: Adilene Weinberg on 06-12-2024 Eosinophils/100 WBC (Bld) Automated eosinophil % . [facility] Erythrocyte distribution wid th Auto (RBC) [Ratio]Ordered By: Adilene Weinberg on 06-12-2024 Erythrocyte distribution width (RBC) [Ratio] Erythrocyte distribution width [Ratio] by Automated count 12.0-14.8 [facility] Erythrocyte distribution wid th [Ratio] by Automated countOrdered By: Adilene Weinberg on 06-12-2024 Erythrocyte distribution width (RBC) [Ratio] 13.9 % Normal 12.0-14.8 [facility] Comment on above: Performed By: #### C BC #### [facility] [address] Erythrocytes [#/volume] in B lood by Automated countOrdered By: Adilene Weinberg on 06-12-2024 RBC (Bld) [#/Vol] 3.49 10*6/uL Low 3.90-5.60 [facility] Comment on above: Performed By: #### C BC #### [facility] [address] Globulin Calc (S) [Mass/Vol] Ordered By: Adilene Weinberg on 06-12-2024 Globulin (S) [Mass/Vol] Serum globulin measurement by calculation (mass/volume) [facility] Glucose [Mass/volume] in Ser um or PlasmaOrdered By: Adilene Weinberg on 06-12-2024 Glucose [Mass/Vol] 102 mg/dL High 70-100 [facility] Comment on above: ADA recommended refe rence rangeRandom Glucose Reference Range is dependent on time and content of last meal. Glucose of more than 200 mg/dL in a nonstressed, ambulatory subject supports the diagnosis of Diabetes Mellitus. Order Comment: STAT BUN/CREAT FOR CT Result Comment: [place] [facility] Glucose Reference Range is dependent on time and content of last meal. Glucose of more than 200 mg/dL in a nonstressed, ambulatory subject supports the diagnosis of Diabetes Mellitus. ADA recommended reference range Performed By: #### C MP, LDH ####[facility] [id number] [place] [id number] [facility] Glucose [Mass/Vol] Glucose [Mass/volume ] in Serum or Plasma High 70-100 [facility] Comment on above: ADA recommended [...] of Blood by Automated count Low 38.8-50.0 [facility] Hematocrit [Volume Fraction] of Blood by Automated countOrdered By: Adilene Weinberg on 06-12-2024 Hematocrit (Bld) [Volume fraction] 32.6 % Low 38.8-50.0 [facility] Comment on above: Performed By: #### C BC #### [facility] [address] Hemoglobin [Mass/volume] in BloodOrdered By: Adilene Weinberg on 06-12-2024 Hemoglobin (Bld) [Mass/Vol] 11.0 g/dL Low 13.0-17.0 [facility] Comment on above: Performed By: #### C BC #### [facility] [address] Hemoglobin (Bld) [Mass/Vol] Hemoglobin [Mass/volume] in Blood Low 13.0-17.0 [facility] LDH Lactate Dehydrogenaseon 06-12-2024 LDH Lactate Dehydrogenase 211 U/L Normal 140-271 [facility] Comment on above: Order Comment: STAT BUN/CREAT FOR CT Result Comment: PERF ORMED BY: [place] [address] [place] [address] PATHOLOGIST CARTOGRAPHIC ENGINEER NIYA BARRERA M.D. Performed By: #### C MP, LDH ####[facility] O[address] LDH Lactate to pyruvate reac tion [Catalytic activity/Vol]on 06-12-2024 LDH LACTATE DEHYDROGENASE 211 U/L 140 - 271 U/L [facility] Lactate dehydrogenase [Enzym atic activity/volume] in Serum or Plasma by Lactate to pyOrdered By: Adilene Weinberg on 06-12-2024 LDH Lactate to pyruvate reaction [Catalytic activity/Vol] 211 U/L 140-271 [facility] LDH Lactate to pyruvate reaction [Catalytic activity/Vol] Lactate dehydrogenase [Enzymatic activity/volume] in Serum or Plasma by Lactate to py 140-271 [facility] Leukocytes [#/volume] correc bert for nucleated erythrocytes in Blood by Automated counOrdered By: Adilene Weinberg on 06-12-2024 WBC corrected for nucl RBC Auto (Bld) [#/Vol] 4.4 10*3/uL 4.1-10.5 [facility] WBC corrected for nucl RBC Auto (Bld) [#/Vol] Leukocytes [#/volume] corrected for nucleated erythrocytes in Blood by Automated coun 4.1-10.5 [facility] Leukocytes [#/volume] in Blo od by Automated countOrdered By: Adilene Weinberg on 06-12-2024 WBC (Bld) [#/Vol] 4.4 10*3/uL Normal 4.1-10.5 [facility] Comment on above: Performed By: #### C BC #### [address] Lymphocytes Auto (Bld) [#/Vo l]Ordered By: Adilene Weinberg on 06-12-2024 Lymphocytes (Bld) [#/Vol] Lymphocytes [#/volume] in Blood by Automated count 1.00-4.8 [facility] Lymphocytes [#/volume] in Bl ood by Automated countOrdered By: Adilene Weinberg on 06-12-2024 Lymphocytes (Bld) [#/Vol] 1.0 10*3/uL Normal 1.00-4.8 [facility] Comment on above: Performed By: #### C BC #### [address] Lymphocytes/100 WBC Auto (Bl d)Ordered By: Adilene Weinberg on 06-12-2024 Lymphocytes/100 WBC (Bld) Lymphocytes/100 leukocytes in Blood by Automated count . [facility] Lymphocytes/100 leukocytes i n Blood by Automated countOrdered By: Adilene Weinberg on 06-12-2024 Lymphocytes/100 WBC (Bld) 22.4 % Normal . [facility] Comment on above: Performed By: #### C BC #### [facility] [address] [place] [address] MCH Auto (RBC) [Entitic mass ]Ordered By: Adilene Weinberg on 06-12-2024 MCH (RBC) [Entitic mass] MCH [Entitic mass] by Automated count 27.5-35.2 [facility] MCH [Entitic mass] by Automa bert countOrdered By: Adilene Weinberg on 06-12-2024 MCH (RBC) [Entitic mass] 31.6 pg Normal 27.5-35.2 [facility] Comment on above: Performed By: #### C BC #### [facility] [address] [place] [address] MCHC Auto (RBC) [Mass/Vol]Or dered By: Adilene Weinberg on 06-12-2024 MCHC (RBC) [Mass/Vol] 33.9 g/dL 32.5-35.6 [facility] MCHC (RBC) [Mass/Vol] MCHC [Mass/volume] by Automated count 32.5-35.6 [facility] MCV Auto (RBC) [Entitic vol] Ordered By: Adilene Weinberg on 06-12-2024 MCV (RBC) [Entitic vol] MCV [Entitic vol ume] by Automated count 83.5-101 [facility] MCV [Entitic volume] by Auto mated countOrdered By: Adilene Weinberg on 06-12-2024 MCV (RBC) [Entitic vol] 93.4 fL Normal 83.5-101 [facility] Comment on above: Performed By: #### C BC #### [address] Monocytes Auto (Bld) [#/Vol] Ordered By: Adilene Weinberg on 06-12-2024 Monocytes (Bld) [#/Vol] Automated blood monocyte count 0.0-0.8 [facility] Monocytes/100 WBC Auto (Bld) Ordered By: Adilene Weinberg on 06-12-2024 Monocytes/100 WBC (Bld) Automated monocyte % . [facility] Neutrophils Auto (Bld) [#/Vo l]Ordered By: Adilene Weinberg on 06-12-2024 Neutrophils (Bld) [#/Vol] Neutrophils [#/volume] in Blood by Automated count 1.8-7.7 [facility] Neutrophils [#/volume] in Bl ood by Automated countOrdered By: Adilene Weinberg on 06-12-2024 Neutrophils (Bld) [#/Vol] 2.6 10*3/uL Normal 1.8-7.7 [facility] Comment on above: Performed By: #### C BC #### [facility] [address] [place] [address] [place] Neutrophils/100 WBC Auto (Bl d)Ordered By: Adilene Weinberg on 06-12-2024 Neutrophils/100 WBC (Bld) Automated neutrophil % . [facility] No Panel Informationon 06-12 STAT BUN/CREAT FOR [facility] No Panel InformationOrdered By: Adilene Weinberg on 06-12-2024 Estimated GFR (CKD-EPI) 59.489 mL/Min [facility] Creatinine Clearance (Chem 46.01 [facility] Nucleated erythrocytes [Pres ence] in Blood by Automated countOrdered By: Adilene Weinberg on 06-12-2024 Nucleated RBC Auto Ql (Bld) 0.1 /100{WBC} 0-0.5 [facility] Nucleated RBC Auto Ql (Bld) Nucleated erythrocytes [Presence] in Blood by Automated count 0-0.5 [facility] Platelet mean volume Auto (B ld) [Entitic vol]Ordered By: Adilene Weinberg on 06-12-2024 Platelet mean volume (Bld) [Entitic vol] Platelet mean volume [Entitic volume] in Blood by Automated count 6.6-10.1 [facility] Platelet mean volume [Entiti c volume] in Blood by Automated countOrdered By: Adilene Weinberg on 06-12-2024 Platelet mean volume (Bld) [Entitic vol] 8.0 fL Normal 6.6-10.1 [facility] Comment on above: Performed By: #### C BC #### [facility] [address] [place] [address] Platelets Auto (Bld) [#/Vol] Ordered By: Adilene Weinberg on 06-12-2024 Platelets (Bld) [#/Vol] Platelets [#/vol ume] in Blood by Automated count Low 150-450 [facility] Platelets [#/volume] in Bloo d by Automated countOrdered By: Adilene Weinberg on 06-12-2024 Platelets (Bld) [#/Vol] 132 10*3/uL Low 150-450 [facility] Comment on above: Performed By: #### C BC #### [facility] [address] Potassium [Moles/volume] in Serum or PlasmaOrdered By: Adilene Weinberg on 06-12-2024 Potassium [Moles/Vol] 4.1 mmol/L Normal 3.5-5.1 [facility] Comment on above: Order Comment: STAT BUN/CREAT FOR CT Performed By: #### C MP, LDH ####[facility] Potassium [Moles/Vol] Potassium [Moles/volume] in Serum or Plasma 3.5-5.1 [facility] Protein [Mass/volume] in Ser um or PlasmaOrdered By: Adilene Weinberg on 06-12-2024 Protein [Mass/Vol] 6.9 g/dL Normal 6.4-8.9 [facility] Comment on above: Order Comment: STAT BUN/CREAT FOR CT Performed By: #### C MP, LDH ####[address] Protein [Mass/Vol] Protein [Mass/volume ] in Serum or Plasma 6.4-8.9 [facility] RBC Auto (Bld) [#/Vol]Ordere d By: Adilene Weinberg on 06-12-2024 RBC (Bld) [#/Vol] Erythrocytes [#/volume] in Blood by Automated count Low 3.90-5.60 [facility] Serum globulin measurement b y calculation (mass/volume)Ordered By: Adilene Weinberg on 06-12-2024 Globulin (S) [Mass/Vol] 2.4 g/dL Normal [facility] Comment on above: Order Comment: STAT BUN/CREAT FOR CT Performed By: #### C MP, LDH ####[address] Serum or plasma albumin/glob ulin mass ratioOrdered By: Adilene Weinberg on 06-12-2024 Albumin/Globulin [Mass ratio] 1.9 {ratio} Normal [facility] Comment on above: Order Comment: STAT BUN/CREAT FOR CT Performed By: #### C MP, LDH ####[address] [place] [address] [facility] Albumin/Globulin [Mass ratio] Serum or plasma albumin/globulin mass ratio [facility] Serum or plasma anion gap de terminationOrdered By: Adilene Weinberg on 06-12-2024 Anion gap [Moles/Vol] 11.7 mmol/L Normal 6.0-15.0 [facility] Comment on above: Order Comment: STAT BUN/CREAT FOR CT Performed By: #### C MP, LDH ####[address] [place] [address] [facility] Anion gap [Moles/Vol] Serum or plasma an ion gap determination 6.0-15.0 [facility] Sodium [Moles/volume] in Ser um or PlasmaOrdered By: Adilene Weinberg on 06-12-2024 Sodium [Moles/Vol] 138 mmol/L Normal 136-145 [facility] Comment on above: Order Comment: STAT BUN/CREAT FOR CT Performed By: #### C MP, LDH ####[address] [place] [id number] [facility] Sodium [Moles/Vol] Sodium [Moles/volume ] in Serum or Plasma 136-145 [facility] Urea nitrogen [Mass/volume] in Serum or PlasmaOrdered By: Adilene Weinberg on 06-12-2024 Urea nitrogen [Mass/Vol] 21 mg/dL Normal 7- [facility] Comment on above: Order Comment: STAT BUN/CREAT FOR CT Performed By: #### C MP, LDH ####[id number] [facility] Urea nitrogen [Mass/Vol] Urea nitrogen [Mass/volume] in Serum or Plasma 7-25 [facility] WBC Auto (Bld) [#/Vol]Ordere d By: Adilene Weinberg on 06-12-2024 WBC (Bld) [#/Vol] Leukocytes [#/volume ] in Blood by Automated count 4.1-10.5 [facility] Estimated glomerular filtrat ion rate (GFR) non- Americanon 06-07-2024 GFR/1.73 sq M.predicted among non-blacks MDRD (S/P/Bld) [Vol rate/Area] 50 mL/min/{1.73_m2} Low >=60 [facility] Laboratory - Chemistry and C hemistry - challengeon 06-07-2024 Calcium [Mass/Vol] 9.2 mg/dL 8.5-10.1 [facility] Chloride [Moles/Vol] 97 mmol/L Low 98-107 [facility] CO2 [Moles/Vol] 28.8 mmol/L 21.0-32.0 [facility] Creatinine [Mass/Vol] 1.36 mg/dL High 0.70-1.30 [facility] GFR/1.73 sq M.predicted MDRD (S/P/Bld) [Vol rate/Area] mL/min/{1.73_m2} >=60 [facility] Glucose [Mass/Vol] 90 mg/dL 74-106 [facility] Potassium [Moles/Vol] 4.1 mmol/L 3.5-5.1 [facility] Sodium [Moles/Vol] 134 mmol/L Low 136-145 [facility] Urea nitrogen [Mass/Vol] 25.0 mg/dL High 7.0-18.0 [facility] Urea nitrogen/Creatinine [Mass ratio] 18.4 mg/mg [facility] Serum or plasma anion gap de terminationon 06-07-2024 Anion gap [Moles/Vol] 12.3 mmol/L [facility] Ambulatory Visit Summaryon 0 05-22-2024 Ambulatory Visit Summary Ambulatory Visit Summary SEBASTIAN HANNON :1935 Visit Date:05/22/2024 Ambulatory Visit Instructions 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 Normal [facility] Office/Clinic Noteon 05-22-2024 Urology Office/Clinic Note [...] URL [facility] [address], [place] [address] [phone] Additional Instructions: 1 yr w/ PSA Patient [...] (COVID-19) mRNA-1273 vaccine 12/09/[address]ed Normal [facility] Comment on above: Result Comment: Elec tronically Signed By: Cristela WINTER MD\.br\Date and Time Signed: 05/22/24 09:22 EDT\.br\Electronically Co-Signed By: Linda Izquierdo\.br\Date and Time Co-Signed: 05/22/24 09:21 EDT No Panel Informationon 05-10 Prostate Specific Antigen Total <0.13 ng/mL <=4.00 [facility] Basophils Auto (Bld) [#/Vol] on 04-20-2024 Basophils (Bld) [#/Vol] 0.1 10 3/uL 0.0-0.1 [facility] Basophils/100 WBC Auto (Bld) on 04-20-2024 Basophils/100 WBC (Bld) 1.4 % 0.2-2.0 [facility] Eosinophils/100 WBC Auto (Bl d)on 04-20-2024 Eosinophils/100 WBC (Bld) 3.3 % 0.9-7.0 [facility] Erythrocyte distribution wid th Auto (RBC) [Ratio]on 04-20-2024 Erythrocyte distribution width (RBC) [Ratio] 13.7 % 11.0-15.0 [facility] Hematocrit Auto (Bld) [Volum e fraction]on 04-20-2024 Hematocrit (Bld) [Volume fraction] 32.0 % Low 42.0-54.0 [facility] Hemoglobin [Mass/volume] in Bloodon 04-20-2024 Hemoglobin (Bld) [Mass/Vol] 10.0 g/dL Low 14.0-18.0 [facility] Iron binding capacity [Mass/ volume] in Serum or Plasmaon 04-20-2024 Iron binding capacity [Mass/Vol] 264.0 ug/dL 250.0-450.0 [facility] Iron saturation [Mass Fracti on] in Serum or Plasmaon 04-20-2024 Iron saturation [Mass fraction] 22.3 % [facility] Laboratory - Chemistry and C hemistry - challengeon 04-20-2024 Cobalamin (Vitamin B12) [Mass/Vol] 1273.0 pg/mL High 193.0-986.0 [facility] Ferritin [Mass/Vol] 122.0 ng/mL 26.0-388.0 [facility] Iron [Mass/Vol] 59.0 ug/dL Low 65.0-175.0 [facility] Laboratory - Hematology and Cell countson 04-20-2024 Immature granulocytes/100 WBC (Bld) 0.2 % 0.0-0.5 [facility] Leukocytes [#/volume] correc bert for nucleated erythrocytes in Blood by Automated counon 04-20-2024 WBC corrected for nucl RBC Auto (Bld) [#/Vol] 4.2 10 3/uL 4.0-11.0 [facility] Lymphocytes Auto (Bld) [#/Vo l]on 04-20-2024 Lymphocytes (Bld) [#/Vol] 1.0 10 3/uL Low 1.2-3.8 [facility] Lymphocytes/100 WBC Auto (Bl d)on 04-20-2024 Lymphocytes/100 WBC (Bld) 23.6 % 20.5-60.0 [facility] MCH Auto (RBC) [Entitic mass ]on 04-20-2024 MCH (RBC) [Entitic mass] 31.1 pg 25.9-34.0 [facility] MCHC Auto (RBC) [Mass/Vol]on 04-20-2024 MCHC (RBC) [Mass/Vol] 31.3 g/dL 29.9-35.2 [facility] MCV Auto (RBC) [Entitic vol] on 04-20-2024 MCV (RBC) [Entitic vol] 99.4 fL High 80.0-94.0 [facility] Monocytes Auto (Bld) [#/Vol] on 04-20-2024 Monocytes (Bld) [#/Vol] 0.6 10 3/uL 0.3-0.8 [facility] Monocytes/100 WBC Auto (Bld) on 04-20-2024 Monocytes/100 WBC (Bld) 13.7 % High 1.7-12.0 [facility] Neutrophils Auto (Bld) [#/Vo l]on 04-20-2024 Neutrophils (Bld) [#/Vol] 2.5 10 3/uL 1.4-6.5 [facility] Neutrophils/100 WBC Auto (Bl d)on 04-20-2024 Neutrophils/100 WBC (Bld) 57.8 % 43.0-75.0 [facility] No Panel Informationon 04-20 Eosinophils # (Auto) 0.1 10 3/uL 0.0-0.7 [facility] Folate 10.10 ng/mL 8.60-58.90 [facility] Immature Granulocyte # (Auto) 0.01 10 3/uL 0.00-0.03 [facility] Platelet mean volume Auto (B ld) [Entitic vol]on 04-20-2024 Platelet mean volume (Bld) [Entitic vol] 9.9 fL 9.5-13.5 [facility] Platelets Auto (Bld) [#/Vol] on 04-20-2024 Platelets (Bld) [#/Vol] 110 10 3/uL Low 150-450 [facility] RBC Auto (Bld) [#/Vol]on RBC (Bld) [#/Vol] 3.22 10 6/uL Low 4.70-6.10 [facility] Alanine aminotransferase [En zymatic activity/volume] in Serum or PlasmaOrdered By: Adilene Weinberg on 03-14-2024 ALT [Catalytic activity/Vol] 18 U/L 7-52 [facility] Albumin [Mass/volume] in Ser um or Plasma by Bromocresol green (BCG) dye binding methoOrdered By: Adilene Weinberg on 03-14-2024 Albumin BCG dye [Mass/Vol] 4.3 g/dL 3.5-5.7 [facility] Alkaline phosphatase [Enzyma tic activity/volume] in Serum or PlasmaOrdered By: Adilene Weinberg on 03-14-2024 ALP [Catalytic activity/Vol] 85 U/L 34-104 [facility] Aspartate aminotransferase [ Enzymatic activity/volume] in Serum or PlasmaOrdered By: Adilene Weinberg on 03-14-2024 AST [Catalytic activity/Vol] 17 U/L 13-39 [facility] Basophils Auto (Bld) [#/Vol] Ordered By: Adilene Weinberg on 03-14-2024 Basophils (Bld) [#/Vol] 0.0 10*3/uL 0.0-0.2 [facility] Basophils/100 WBC Auto (Bld) Ordered By: Adilene Weinberg on 03-14-2024 Basophils/100 WBC (Bld) 0.8 % . [facility] Bilirubin.total [Mass/volume ] in Serum or PlasmaOrdered By: Adilene Weinberg on 03-14-2024 Bilirubin [Mass/Vol] 0.6 mg/dL 0.3-1.0 [facility] Calcium [Mass/volume] in Ser um or PlasmaOrdered By: Adilene Weinberg on 03-14-2024 Calcium [Mass/Vol] 9.4 mg/dL 8.6-10.3 [facility] Carbon dioxide, total [Moles /volume] in Serum or PlasmaOrdered By: Adilene Weinberg on 03-14-2024 CO2 [Moles/Vol] 31.8 mmol/L High 21.0-31.0 [facility] Chloride [Moles/volume] in S boby or PlasmaOrdered By: Adilene Weinberg on 03-14-2024 Chloride [Moles/Vol] 105 mmol/L 98-107 [facility] Creatinine [Mass/volume] in Serum or PlasmaOrdered By: Adilene Weinberg on 03-14-2024 Creatinine [Mass/Vol] 1.06 mg/dL 0.70-1.30 [facility] Eosinophils Auto (Bld) [#/Vo l]Ordered By: Adilene Weinberg on 03-14-2024 Eosinophils (Bld) [#/Vol] 0.1 10*3/uL 0.0-0.45 [facility] Eosinophils/100 WBC Auto (Bl d)Ordered By: Adilene Weinberg on 03-14-2024 Eosinophils/100 WBC (Bld) 2.1 % . [facility] Erythrocyte distribution wid th Auto (RBC) [Ratio]Ordered By: Adilene Weinberg on 03-14-2024 Erythrocyte distribution width (RBC) [Ratio] 15.4 % High 12.0-14.8 [facility] Globulin Calc (S) [Mass/Vol] Ordered By: Adilene Weinberg on 03-14-2024 Globulin (S) [Mass/Vol] 2.0 g/dL [facility] Glucose [Mass/volume] in Ser um or PlasmaOrdered By: Adilene Weinberg on 03-14-2024 Glucose [Mass/Vol] 89 mg/dL 70-100 [facility] Comment on above: ADA recommended refe rence rangeRandom Glucose Reference Range is dependent on time and content of last meal. Glucose of more than 200 mg/dL in a nonstressed, ambulatory subject supports the diagnosis of Diabetes Mellitus. Hematocrit Auto (Bld) [Volum e fraction]Ordered By: Adilene Weinberg on 03-14-2024 Hematocrit (Bld) [Volume fraction] 28.8 % Low 38.8-50.0 [facility] Hemoglobin [Mass/volume] in BloodOrdered By: Adilene Weinberg on 03-14-2024 Hemoglobin (Bld) [Mass/Vol] 9.8 g/dL Low 13.0-17.0 [facility] Lactate dehydrogenase [Enzym atic activity/volume] in Serum or Plasma by Lactate to pyOrdered By: Adilene Weinberg on 03-14-2024 LDH Lactate to pyruvate reaction [Catalytic activity/Vol] 205 U/L 140-271 [facility] Leukocytes [#/volume] correc bert for nucleated erythrocytes in Blood by Automated counOrdered By: Adilene Weinberg on 03-14-2024 WBC corrected for nucl RBC Auto (Bld) [#/Vol] 6.0 10*3/uL 4.1-10.5 [facility] Lymphocytes Auto (Bld) [#/Vo l]Ordered By: Adilene Weinberg on 03-14-2024 Lymphocytes (Bld) [#/Vol] 0.7 10*3/uL Low 1.00-4.8 [facility] Lymphocytes/100 WBC Auto (Bl d)Ordered By: Adilene Weinberg on 03-14-2024 Lymphocytes/100 WBC (Bld) 11.7 % . [facility] MCH Auto (RBC) [Entitic mass ]Ordered By: Adilene Weinberg on 03-14-2024 MCH (RBC) [Entitic mass] 31.4 pg 27.5-35.2 [facility] MCHC Auto (RBC) [Mass/Vol]Or dered By: Adilene Weinberg on 03-14-2024 MCHC (RBC) [Mass/Vol] 34.0 g/dL 32.5-35.6 [facility] MCV Auto (RBC) [Entitic vol] Ordered By: Adilene Weinberg on 03-14-2024 MCV (RBC) [Entitic vol] 92.2 fL 83.5-101 [facility] Monocytes Auto (Bld) [#/Vol] Ordered By: Adilene Weinberg on 03-14-2024 Monocytes (Bld) [#/Vol] 0.8 10*3/uL 0.0-0.8 [facility] Monocytes/100 WBC Auto (Bld) Ordered By: Adilene Weinberg on 03-14-2024 Monocytes/100 WBC (Bld) 12.8 % . [facility] Neutrophils Auto (Bld) [#/Vo l]Ordered By: Adilene Weinberg on 03-14-2024 Neutrophils (Bld) [#/Vol] 4.3 10*3/uL 1.8-7.7 [facility] Neutrophils/100 WBC Auto (Bl d)Ordered By: Adilene Weinberg on 03-14-2024 Neutrophils/100 WBC (Bld) 72.6 % . [facility] No Panel InformationOrdered By: Adilene Weinberg on 03-14-2024 Estimated GFR (CKD-EPI) > 60.0 mL/Min [facility] Creatinine Clearance (Chem 51.65 [facility] Nucleated erythrocytes [Pres ence] in Blood by Automated countOrdered By: Adielne Weinberg on 03-14-2024 Nucleated RBC Auto Ql (Bld) 0.1 /100{WBC} 0-0.5 [facility] Platelet mean volume Auto (B ld) [Entitic vol]Ordered By: Adilene Weinberg on 03-14-2024 Platelet mean volume (Bld) [Entitic vol] 8.1 fL 6.6-10.1 [facility] Platelets Auto (Bld) [#/Vol] Ordered By: Adilene Weinberg on 03-14-2024 Platelets (Bld) [#/Vol] 145 10*3/uL Low 150-450 [facility] Potassium [Moles/volume] in Serum or PlasmaOrdered By: Adilene Méndezse on 03-14-2024 Potassium [Moles/Vol] 3.9 mmol/L 3.5-5.1 [facility] Protein [Mass/volume] in Ser um or PlasmaOrdered By: Adilene Lenard on 03-14-2024 Protein [Mass/Vol] 6.3 g/dL Low 6.4-8.9 [facility] RBC Auto (Bld) [#/Vol]Ordere d By: Adilene éMndezse on 03-14-2024 RBC (Bld) [#/Vol] 3.12 10*6/uL Low 3.90-5.60 [facility] Serum or plasma albumin/glob ulin mass ratioOrdered By: Adilene Weinberg on 03-14-2024 Albumin/Globulin [Mass ratio] 2.2 {ratio} [facility] Serum or plasma anion gap de terminationOrdered By: Adilene Weinberg on 03-14-2024 Anion gap [Moles/Vol] 8.1 mmol/L 6.0-15.0 [facility] Sodium [Moles/volume] in Ser um or PlasmaOrdered By: Adilene Méndezse on 03-14-2024 Sodium [Moles/Vol] 141 mmol/L 136-145 [facility] Urea nitrogen [Mass/volume] in Serum or PlasmaOrdered By: Adilene Lenard on 03-14-2024 Urea nitrogen [Mass/Vol] 14 mg/dL 04-27 [facility] WBC Auto (Bld) [#/Vol]Ordere d By: Adilene Lenard on 03-14-2024 WBC (Bld) [#/Vol] 6.0 10*3/uL 4.1-10.5 [facility] Alanine aminotransferase [En zymatic activity/volume] in Serum or PlasmaOrdered By: Michele Arteaga on 12-27-2023 ALT [Catalytic activity/Vol] 30 U/L [facility] Albumin [Mass/volume] in Ser um or Plasma by Bromocresol green (BCG) dye binding methoOrdered By: Michele Arteaga on 12-27-2023 Albumin BCG dye [Mass/Vol] 4.5 g/dL 3.5-5.7 [facility] Alkaline phosphatase [Enzyma tic activity/volume] in Serum or PlasmaOrdered By: Michele Arteaga on 12-27-2023 ALP [Catalytic activity/Vol] 74 U/L 34-104 [facility] Aspartate aminotransferase [ Enzymatic activity/volume] in Serum or PlasmaOrdered By: Michele Arteaga on 12-27-2023 AST [Catalytic activity/Vol] 24 U/L 13-39 [facility] Basophils Auto (Bld) [#/Vol] Ordered By: Michele Arteaga on 12-27-2023 Basophils (Bld) [#/Vol] 0.0 10*3/uL 0.0-0.2 [facility] Basophils/100 WBC Auto (Bld) Ordered By: Michele Arteaga on 12-27-2023 Basophils/100 WBC (Bld) 0.9 % . [facility] Bilirubin.direct [Mass/volum e] in Serum or PlasmaOrdered By: Michele Arteaga on 12-27-2023 Bilirubin.direct [Mass/Vol] 0.20 mg/dL 0.03-0.18 [facility] Bilirubin.total [Mass/volume ] in Serum or PlasmaOrdered By: Michele Arteaga on 12-27-2023 Bilirubin [Mass/Vol] 0.7 mg/dL 0.3-1.0 [facility] Creatinine [Mass/volume] in Serum or PlasmaOrdered By: Michele Arteaga on 12-27-2023 Creatinine [Mass/Vol] 1.08 mg/dL 0.70-1.30 [facility] Eosinophils Auto (Bld) [#/Vo l]Ordered By: Michele Arteaga on 12-27-2023 Eosinophils (Bld) [#/Vol] 0.1 10*3/uL 0.0-0.45 [facility] Eosinophils/100 WBC Auto (Bl d)Ordered By: Michele Arteaga on 12-27-2023 Eosinophils/100 WBC (Bld) 1.9 % . [facility] Erythrocyte distribution wid th Auto (RBC) [Ratio]Ordered By: Michele Arteaga on 12-27-2023 Erythrocyte distribution width (RBC) [Ratio] 14.8 % 12.0-14.8 [facility] Erythrocyte sedimentation ra te by Photometric methodOrdered By: Michele Arteaga on 12-27-2023 ESR Photometric method (Bld) [Velocity] 11 mm/hr 0-19 [facility] Globulin Calc (S) [Mass/Vol] Ordered By: Michele Arteaga on 12-27-2023 Globulin (S) [Mass/Vol] 1.5 g/dL [facility] Hematocrit Auto (Bld) [Volum e fraction]Ordered By: Michele Arteaga on 12-27-2023 Hematocrit (Bld) [Volume fraction] 32.1 % 38.8-50.0 [facility] Hemoglobin [Mass/volume] in BloodOrdered By: Michele Arteaga on 12-27-2023 Hemoglobin (Bld) [Mass/Vol] 10.5 g/dL 13.0-17.0 [facility] Leukocytes [#/volume] correc bert for nucleated erythrocytes in Blood by Automated counOrdered By: Michele Arteaga on 12-27-2023 WBC corrected for nucl RBC Auto (Bld) [#/Vol] 4.9 10*3/uL 4.1-10.5 [facility] Lymphocytes Auto (Bld) [#/Vo l]Ordered By: Michele Arteaga on 12-27-2023 Lymphocytes (Bld) [#/Vol] 0.8 10*3/uL 1.00-4.8 [facility] Lymphocytes/100 WBC Auto (Bl d)Ordered By: Michele Arteaga on 12-27-2023 Lymphocytes/100 WBC (Bld) 17.1 % . [facility] MCH Auto (RBC) [Entitic mass ]Ordered By: Michele Arteaga on 12-27-2023 MCH (RBC) [Entitic mass] 30.3 pg 27.5-35.2 [facility] MCHC Auto (RBC) [Mass/Vol]Or dered By: Michele Arteaga on 12-27-2023 MCHC (RBC) [Mass/Vol] 32.9 g/dL 32.5-35.6 [facility] MCV Auto (RBC) [Entitic vol] Ordered By: Michele Arteaga on 12-27-2023 MCV (RBC) [Entitic vol] 92.2 fL 83.5-101 [facility] Monocytes Auto (Bld) [#/Vol] Ordered By: Michele Arteaga on 12-27-2023 Monocytes (Bld) [#/Vol] 0.5 10*3/uL 0.0-0.8 [facility] Monocytes/100 WBC Auto (Bld) Ordered By: Michele Arteaga on 12-27-2023 Monocytes/100 WBC (Bld) 11.0 % . [facility] Neutrophils Auto (Bld) [#/Vo l]Ordered By: Michele Arteaga on 12-27-2023 Neutrophils (Bld) [#/Vol] 3.4 10*3/uL 1.8-7.7 [facility] Neutrophils/100 WBC Auto (Bl d)Ordered By: Michele Arteaga on 12-27-2023 Neutrophils/100 WBC (Bld) 69.1 % . [facility] No Panel InformationOrdered By: Michele Arteaga on 12-27-2023 Estimated GFR (CKD-EPI) > 60.0 mL/Min [facility] Creatinine Clearance (Chem N/A [facility] Nucleated erythrocytes [Pres ence] in Blood by Automated countOrdered By: Michele Arteaga on 12-27-2023 Nucleated RBC Auto Ql (Bld) 0.1 /100{WBC} 0-0.5 [facility] Platelet mean volume Auto (B ld) [Entitic vol]Ordered By: Michele Arteaga on 12-27-2023 Platelet mean volume (Bld) [Entitic vol] 8.8 fL 6.6-10.1 [facility] Platelets Auto (Bld) [#/Vol] Ordered By: Michele Arteaga on 12-27-2023 Platelets (Bld) [#/Vol] 127 10*3/uL 150-450 [facility] Protein [Mass/volume] in Ser um or PlasmaOrdered By: Michele Arteaga on 12-27-2023 Protein [Mass/Vol] 6.0 g/dL 6.4-8.9 [facility] RBC Auto (Bld) [#/Vol]Ordere d By: Michele Arteaga on 12-27-2023 RBC (Bld) [#/Vol] 3.48 10*6/uL 3.90-5.60 [facility] Serum or plasma albumin/glob ulin mass ratioOrdered By: Michele Arteaga on 12-27-2023 Albumin/Globulin [Mass ratio] 3.0 {ratio} [facility] Serum or plasma non-glucuron idated bilirubin measurement (mass/volume)Ordered By: Michele Arteaga on 12-27-2023 Bilirubin.indirect [Mass/Vol] 0.5 mg/dL [facility] WBC Auto (Bld) [#/Vol]Ordere d By: Michele Arteaga on 12-27-2023 WBC (Bld) [#/Vol] 4.9 10*3/uL 4.1-10.5 [facility] Creatinine (Bld) [Mass/Vol]O rdered By: Adilene Weinberg on 11-29-2023 Creatinine [Mass/Vol] 1.3 mg/dL 0.6-1.3 [facility] Comment on above: ER/ESD physician is notified/shown all ISTAT results.Critical values may be confirmed by laboratory testing ifdeemed necessary by ER attending doctor. Creatinine [Mass/Vol] Whole blood creatinine measurement 0.6-1.3 [facility] Comment on above: ER/ESD physician is notified/shown all ISTAT results.Critical values may be confirmed by laboratory testing ifdeemed necessary by ER attending doctor. No Panel InformationOrdered By: Adilene Weinberg on 11-29-2023 Bedside Estimated GFR (eGFR) 53.501 [facility] Glucose Glucometer (BldC) [M ass/Vol]Ordered By: Elkin Holly on 11-19-2023 Glucose [Mass/Vol] 88 mg/dL [facility] Comment on above: Random Glucose Refer ence Range is dependent on time and content of last meal. Glucose of more than 200 mg/dL in a nonstressed, ambulatory subject supports the diagnosis of Diabetes Mellitus. NM Lymphatic vessels Views W radionuclide intra lymphaticon 10-28-2023 Successful sentinel lymph node localization to the right pre-auricular lymph node. [employer] localizing images were sent to PACS. I personally reviewed the images/study and I agree with the findings as stated by Nuclear Medicine fellow Ruthann Lee MD. This study was interpreted at [facility], [place], [place]. 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 COMPARISON: None. ACCESSION NUMBER(S): [id number] ORDERING CLINICIAN: ELKIN HOLLY TECHNIQUE: DIVISION OF [...] and localized images were sent to PACS. 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 COMPARISON: None. ACCESSION NUMBER(S): [id number] ORDERING CLINICIAN: ELKIN HOLLY TECHNIQUE: DIVISION OF [...] localization to the right pre-auricular lymph node. [employer] localizing images were sent to PACS. I personally reviewed the images/study and I agree with the findings as stated by Nuclear Medicine fellow Ruthann Lee MD. This study was interpreted at [place], [place]. MACRO: None Signed by: Michele Sweeney 10/28/2023 12:48 PM Dictation workstation: [id number] [facility] Work Phone: Radiology Study observation (narrative) [facility] Work Phone: NM Lymphatic vessels Views W radionuclide intra lymphaticOrdered By: Michele Sweeney on 10-28-2023 [facility] Work Phone: Alanine aminotransferase [En zymatic activity/volume] in Serum or PlasmaOrdered By: Michele Arteaga on 07-19-2023 ALT [Catalytic activity/Vol] 32 U/L 7-52 [facility] Albumin [Mass/volume] in Ser um or Plasma by Bromocresol green (BCG) dye binding methoOrdered By: Michele Arteaga on 07-19-2023 Albumin BCG dye [Mass/Vol] 4.1 g/dL 3.5-5.7 [facility] Alkaline phosphatase [Enzyma tic activity/volume] in Serum or PlasmaOrdered By: Michele Arteaga on 07-19-2023 ALP [Catalytic activity/Vol] 63 U/L 34-104 [facility] Aspartate aminotransferase [ Enzymatic activity/volume] in Serum or PlasmaOrdered By: Michele Arteaga on 07-19-2023 AST [Catalytic activity/Vol] 22 U/L 13-39 [facility] Basophils Auto (Bld) [#/Vol] Ordered By: Michele Arteaga on 07-19-2023 Basophils (Bld) [#/Vol] 0.0 10*3/uL 0.0-0.2 [facility] Basophils/100 WBC Auto (Bld) Ordered By: Michele Arteaga on 07-19-2023 Basophils/100 WBC (Bld) 0.7 % . [facility] Bilirubin.direct [Mass/volum e] in Serum or PlasmaOrdered By: Michele Arteaga on 07-19-2023 Bilirubin.direct [Mass/Vol] 0.10 mg/dL 0.03-0.18 [facility] Bilirubin.total [Mass/volume ] in Serum or PlasmaOrdered By: Michele Arteaga on 07-19-2023 Bilirubin [Mass/Vol] 0.6 mg/dL 0.3-1.0 [facility] Creatinine [Mass/volume] in Serum or PlasmaOrdered By: Michele Arteaga on 07-19-2023 Creatinine [Mass/Vol] 1.09 mg/dL 0.70-1.30 [facility] Eosinophils Auto (Bld) [#/Vo l]Ordered By: Michele Arteaga on 07-19-2023 Eosinophils (Bld) [#/Vol] 0.0 10*3/uL 0.0-0.45 [facility] Eosinophils/100 WBC Auto (Bl d)Ordered By: Michele Arteaga on 07-19-2023 Eosinophils/100 WBC (Bld) 0.9 % . [facility] Erythrocyte distribution wid th Auto (RBC) [Ratio]Ordered By: Michele Arteaga on 07-19-2023 Erythrocyte distribution width (RBC) [Ratio] 14.6 % 12.0-14.8 [facility] Erythrocyte sedimentation ra te by Photometric methodOrdered By: Michele Arteaga on 07-19-2023 ESR Photometric method (Bld) [Velocity] 5 mm/hr 0-19 [facility] Globulin Calc (S) [Mass/Vol] Ordered By: Michele Arteaga on 07-19-2023 Globulin (S) [Mass/Vol] 1.7 g/dL [facility] Hematocrit Auto (Bld) [Volum e fraction]Ordered By: Michele Arteaga on 07-19-2023 Hematocrit (Bld) [Volume fraction] 31.9 % 38.8-50.0 [facility] Hemoglobin [Mass/volume] in BloodOrdered By: Michele Arteaga on 07-19-2023 Hemoglobin (Bld) [Mass/Vol] 11.0 g/dL 13.0-17.0 [facility] Leukocytes [#/volume] correc bert for nucleated erythrocytes in Blood by Automated counOrdered By: Michele Arteaga on 07-19-2023 WBC corrected for nucl RBC Auto (Bld) [#/Vol] 4.2 10*3/uL 4.1-10.5 [facility] Lymphocytes Auto (Bld) [#/Vo l]Ordered By: Michele Arteaga on 07-19-2023 Lymphocytes (Bld) [#/Vol] 0.7 10*3/uL 1.00-4.8 [facility] Lymphocytes/100 WBC Auto (Bl d)Ordered By: Michele Arteaga on 07-19-2023 Lymphocytes/100 WBC (Bld) 16.1 % . [facility] MCH Auto (RBC) [Entitic mass ]Ordered By: Michele Arteaga on 07-19-2023 MCH (RBC) [Entitic mass] 32.2 pg 27.5-35.2 [facility] MCHC Auto (RBC) [Mass/Vol]Or dered By: Michele Arteaga on 07-19-2023 MCHC (RBC) [Mass/Vol] 34.4 g/dL 32.5-35.6 [facility] MCV Auto (RBC) [Entitic vol] Ordered By: Michele Arteaga on 07-19-2023 MCV (RBC) [Entitic vol] 93.7 fL 83.5-101 [facility] Monocytes Auto (Bld) [#/Vol] Ordered By: Michele Arteaga on 07-19-2023 Monocytes (Bld) [#/Vol] 0.5 10*3/uL 0.0-0.8 [facility] Monocytes/100 WBC Auto (Bld) Ordered By: Michele Arteaga on 07-19-2023 Monocytes/100 WBC (Bld) 11.2 % . [facility] Neutrophils Auto (Bld) [#/Vo l]Ordered By: Michele Arteaga on 07-19-2023 Neutrophils (Bld) [#/Vol] 3.0 10*3/uL 1.8-7.7 [facility] Neutrophils/100 WBC Auto (Bl d)Ordered By: Michele Arteaga on 07-19-2023 Neutrophils/100 WBC (Bld) 71.1 % . [facility] No Panel InformationOrdered By: Michele Arteaga on 07-19-2023 Estimated GFR (CKD-EPI) > 60.0 mL/Min [facility] Creatinine Clearance (Chem N/A [facility] Nucleated erythrocytes [Pres ence] in Blood by Automated countOrdered By: Michele Arteaga on 07-19-2023 Nucleated RBC Auto Ql (Bld) 0.2 /100{WBC} 0-0.5 [facility] Platelet mean volume Auto (B ld) [Entitic vol]Ordered By: Michele Arteaga on 07-19-2023 Platelet mean volume (Bld) [Entitic vol] 8.5 fL 6.6-10.1 [facility] Platelets Auto (Bld) [#/Vol] Ordered By: Michele Arteaga on 07-19-2023 Platelets (Bld) [#/Vol] 123 10*3/uL 150-450 [facility] Protein [Mass/volume] in Ser um or PlasmaOrdered By: Michele Arteaga on 07-19-2023 Protein [Mass/Vol] 5.8 g/dL 6.4-8.9 [facility] RBC Auto (Bld) [#/Vol]Ordere d By: Michele Arteaga on 07-19-2023 RBC (Bld) [#/Vol] 3.40 10*6/uL 3.90-5.60 [facility] Serum or plasma albumin/glob ulin mass ratioOrdered By: Michele Arteaga on 07-19-2023 Albumin/Globulin [Mass ratio] 2.4 {ratio} [facility] Serum or plasma non-glucuron idated bilirubin measurement (mass/volume)Ordered By: Michele Arteaga on 07-19-2023 Bilirubin.indirect [Mass/Vol] 0.5 mg/dL [facility] WBC Auto (Bld) [#/Vol]Ordere d By: Michele Arteaga on 07-19-2023 WBC (Bld) [#/Vol] 4.2 10*3/uL 4.1-10.5 [facility] Alanine aminotransferase [En zymatic activity/volume] in Serum or PlasmaOrdered By: Michele Arteaga on 03-23-2023 ALT [Catalytic activity/Vol] 23 U/L 7-52 [facility] Albumin [Mass/volume] in Ser um or Plasma by Bromocresol green (BCG) dye binding methoOrdered By: Michele Arteaga on 03-23-2023 Albumin BCG dye [Mass/Vol] 4.4 g/dL 3.5-5.7 [facility] Alkaline phosphatase [Enzyma tic activity/volume] in Serum or PlasmaOrdered By: Michele Arteaga on 03-23-2023 ALP [Catalytic activity/Vol] 88 U/L 34-104 [facility] Aspartate aminotransferase [ Enzymatic activity/volume] in Serum or PlasmaOrdered By: Michele Arteaga on 03-23-2023 AST [Catalytic activity/Vol] 20 U/L 13-39 [facility] Basophils Auto (Bld) [#/Vol] Ordered By: Michele Arteaga on 03-23-2023 Basophils (Bld) [#/Vol] 0.0 10*3/uL 0.0-0.2 [facility] Basophils/100 WBC Auto (Bld) Ordered By: Michele Arteaga on 03-23-2023 Basophils/100 WBC (Bld) 0.8 % . [facility] Bilirubin.direct [Mass/volum e] in Serum or PlasmaOrdered By: Michele Arteaga on 03-23-2023 Bilirubin.direct [Mass/Vol] 0.20 mg/dL 0.03-0.18 [facility] Bilirubin.total [Mass/volume ] in Serum or PlasmaOrdered By: Michele Arteaga on 03-23-2023 Bilirubin [Mass/Vol] 0.7 mg/dL 0.3-1.0 [facility] Creatinine [Mass/volume] in Serum or PlasmaOrdered By: Michele Arteaga on 03-23-2023 Creatinine [Mass/Vol] 1.10 mg/dL 0.70-1.30 [facility] Eosinophils Auto (Bld) [#/Vo l]Ordered By: Michele Arteaga on 03-23-2023 Eosinophils (Bld) [#/Vol] 0.1 10*3/uL 0.0-0.45 [facility] Eosinophils/100 WBC Auto (Bl d)Ordered By: Michele Arteaga on 03-23-2023 Eosinophils/100 WBC (Bld) 1.3 % . [facility] Erythrocyte distribution wid th Auto (RBC) [Ratio]Ordered By: Michele Arteaga on 03-23-2023 Erythrocyte distribution width (RBC) [Ratio] 14.8 % 12.0-14.8 [facility] Erythrocyte sedimentation ra te by Photometric methodOrdered By: Michele Arteaga on 03-23-2023 ESR Photometric method (Bld) [Velocity] 21 mm/hr 0-19 [facility] Globulin Calc (S) [Mass/Vol] Ordered By: Michele Arteaga on 03-23-2023 Globulin (S) [Mass/Vol] 1.8 g/dL [facility] Hematocrit Auto (Bld) [Volum e fraction]Ordered By: Michele Arteaga on 03-23-2023 Hematocrit (Bld) [Volume fraction] 30.1 % 38.8-50.0 [facility] Hemoglobin [Mass/volume] in BloodOrdered By: Michele Arteaga on 03-23-2023 Hemoglobin (Bld) [Mass/Vol] 10.3 g/dL 13.0-17.0 [facility] Leukocytes [#/volume] correc bert for nucleated erythrocytes in Blood by Automated counOrdered By: Michele Arteaga on 03-23-2023 WBC corrected for nucl RBC Auto (Bld) [#/Vol] 5.9 10*3/uL 4.1-10.5 [facility] Lymphocytes Auto (Bld) [#/Vo l]Ordered By: Michele Arteaga on 03-23-2023 Lymphocytes (Bld) [#/Vol] 0.7 10*3/uL 1.00-4.8 [facility] Lymphocytes/100 WBC Auto (Bl d)Ordered By: Michele Arteaga on 03-23-2023 Lymphocytes/100 WBC (Bld) 12.4 % . [facility] MCH Auto (RBC) [Entitic mass ]Ordered By: Michele Arteaga on 03-23-2023 MCH (RBC) [Entitic mass] 32.1 pg 27.5-35.2 [facility] MCHC Auto (RBC) [Mass/Vol]Or dered By: Michele Arteaga on 03-23-2023 MCHC (RBC) [Mass/Vol] 34.2 g/dL 32.5-35.6 [facility] MCV Auto (RBC) [Entitic vol] Ordered By: Michele Arteaga on 03-23-2023 MCV (RBC) [Entitic vol] 93.8 fL 83.5-101 [facility] Monocytes Auto (Bld) [#/Vol] Ordered By: Michele Arteaga on 03-23-2023 Monocytes (Bld) [#/Vol] 0.7 10*3/uL 0.0-0.8 [facility] Monocytes/100 WBC Auto (Bld) Ordered By: Michele Arteaga on 03-23-2023 Monocytes/100 WBC (Bld) 12.3 % . [facility] Neutrophils Auto (Bld) [#/Vo l]Ordered By: Michele Arteaga on 03-23-2023 Neutrophils (Bld) [#/Vol] 4.3 10*3/uL 1.8-7.7 [facility] Neutrophils/100 WBC Auto (Bl d)Ordered By: Michele Arteaga on 03-23-2023 Neutrophils/100 WBC (Bld) 73.2 % . [facility] No Panel InformationOrdered By: Michele Arteaga on 03-23-2023 Estimated GFR (CKD-EPI) > 60.0 mL/Min [facility] Creatinine Clearance (Chem N/A [facility] Nucleated erythrocytes [Pres ence] in Blood by Automated countOrdered By: Michele Arteaga on 03-23-2023 Nucleated RBC Auto Ql (Bld) 0.1 /100{WBC} 0-0.5 [facility] Platelet mean volume Auto (B ld) [Entitic vol]Ordered By: Michele Arteaga on 03-23-2023 Platelet mean volume (Bld) [Entitic vol] 8.2 fL 6.6-10.1 [facility] Platelets Auto (Bld) [#/Vol] Ordered By: Michele Arteaga on 03-23-2023 Platelets (Bld) [#/Vol] 162 10*3/uL 150-450 [facility] Protein [Mass/volume] in Ser um or PlasmaOrdered By: Michele Arteaga on 03-23-2023 Protein [Mass/Vol] 6.2 g/dL 6.4-8.9 [facility] RBC Auto (Bld) [#/Vol]Ordere d By: Michele Arteaga on 03-23-2023 RBC (Bld) [#/Vol] 3.21 10*6/uL 3.90-5.60 [facility] Serum or plasma albumin/glob ulin mass ratioOrdered By: Michele Arteaga on 03-23-2023 Albumin/Globulin [Mass ratio] 2.4 {ratio} [facility] Serum or plasma non-glucuron idated bilirubin measurement (mass/volume)Ordered By: Michele Arteaga on 03-23-2023 Bilirubin.indirect [Mass/Vol] 0.5 mg/dL [facility] WBC Auto (Bld) [#/Vol]Ordere d By: Michele Arteaga on 03-23-2023 WBC (Bld) [#/Vol] 5.9 10*3/uL 4.1-10.5 [facility] Covid-19 PCR (CVDTBH)on 01-03 SARS-CoV-2 (COVID-19) RNA JOSEMANUEL+probe Ql (Unsp spec) Not detected Normal NOT DETECTED [facility] Comment on above: Result Comment: This test is not yet approved or cleared by the [place] FDA. When there are no FDA-approved or cleared tests available, and other criteria are met, FDA can make tests available under an emergency access mechanism called an Emergency Use Authorization (EUA). The EUA for this test is supported by the [place] of Health and Human Service's (HHS's) declaration [...] SARS-CoV-2. Performed By: #### C VDTB #### [facility] [address] [place] [address] Dr. Robb Martin SYMPTOMATIC COVID-19 ANTIGEN on 01-22-2023 EUA Statement SEE BELOW Normal [facility] Comment on above: Result Comment: This test [...] sooner. Performed By: #### C VDAGS #### [facility] [address] [place] [id number] Robb Martin SARS-CoV-2 (COVID-19) RNA JOSEMANUEL+probe Ql (Unsp spec) Negative Normal NEGATIVE [facility] Comment on above: Performed By: #### C VDAGS #### [facility] [address] [place] [id number] Robb Martin Albumin [Mass/volume] in Ser um or PlasmaOrdered By: Michele Arteaga on 11-19-2022 Albumin [Mass/Vol] 4.1 g/dL 3.2-5.5 [facility] Basophils Auto (Bld) [#/Vol] Ordered By: Michele Arteaga on 11-19-2022 Basophils (Bld) [#/Vol] 0.1 10*3/uL 0.0-0.2 [facility] Basophils/100 WBC Auto (Bld) Ordered By: Michele Arteaga on 11-19-2022 Basophils/100 WBC (Bld) 1.0 % . [facility] Creatinine and Glomerular fi ltration rate.predicted panel (S/P/Bld)Ordered By: Michele Arteaga on 11-19-2022 Creatinine [Mass/Vol] 1.11 mg/dL 0.64-1.27 [facility] Direct bilirubin measurement Ordered By: Micehle Arteaga on 11-19-2022 Bilirubin.direct [Mass/Vol] 0.2 mg/dL 0.0-0.4 [facility] Eosinophils Auto (Bld) [#/Vo l]Ordered By: Michele Arteaga on 11-19-2022 Eosinophils (Bld) [#/Vol] 0.1 10*3/uL 0.0-0.45 [facility] Eosinophils/100 WBC Auto (Bl d)Ordered By: Michele Arteaga on 11-19-2022 Eosinophils/100 WBC (Bld) 1.6 % . [facility] Erythrocyte distribution wid th Auto (RBC) [Ratio]Ordered By: Michele Arteaga on 11-19-2022 Erythrocyte distribution width (RBC) [Ratio] 14.1 % 12.0-14.8 [facility] Erythrocyte sedimentation ra te by Photometric methodOrdered By: Michele Arteaga on 11-19-2022 ESR Photometric method (Bld) [Velocity] 14 mm/hr 0-19 [facility] Estimated glomerular filtrat ion rate (GFR) non- AmericanOrdered By: Michele Arteaga on 11-19-2022 GFR/1.73 sq M.predicted among non-blacks MDRD (S/P/Bld) [Vol rate/Area] > 60 mL/Min [facility] Globulin Calc (S) [Mass/Vol] Ordered By: Michele Arteaga on 11-19-2022 Globulin (S) [Mass/Vol] 2.1 g/dL [facility] Hematocrit Auto (Bld) [Volum e fraction]Ordered By: Michele Arteaga on 11-19-2022 Hematocrit (Bld) [Volume fraction] 34.7 % 38.8-50.0 [facility] Hemoglobin [Mass/volume] in BloodOrdered By: Michele Arteaga on 11-19-2022 Hemoglobin (Bld) [Mass/Vol] 11.4 g/dL 13.0-17.0 [facility] Leukocytes [#/volume] correc bert for nucleated erythrocytes in Blood by Automated counOrdered By: Michele Arteaga on 11-19-2022 WBC corrected for nucl RBC Auto (Bld) [#/Vol] 4.8 10*3/uL 4.1-10.5 [facility] Lymphocytes Auto (Bld) [#/Vo l]Ordered By: Michele Arteaga on 11-19-2022 Lymphocytes (Bld) [#/Vol] 0.7 10*3/uL 1.00-4.8 [facility] Lymphocytes/100 WBC Auto (Bl d)Ordered By: Michele Arteaga on 11-19-2022 Lymphocytes/100 WBC (Bld) 15.2 % . [facility] MCH Auto (RBC) [Entitic mass ]Ordered By: Michele Arteaga on 11-19-2022 MCH (RBC) [Entitic mass] 30.8 pg 27.5-35.2 [facility] MCHC Auto (RBC) [Mass/Vol]Or dered By: Michele Arteaga on 11-19-2022 MCHC (RBC) [Mass/Vol] 32.7 g/dL 32.5-35.6 [facility] MCV Auto (RBC) [Entitic vol] Ordered By: Michele Arteaga on 11-19-2022 MCV (RBC) [Entitic vol] 94.2 fL 83.5-101 [facility] Monocytes Auto (Bld) [#/Vol] Ordered By: Michele Arteaga on 11-19-2022 Monocytes (Bld) [#/Vol] 0.6 10*3/uL 0.0-0.8 [facility] Monocytes/100 WBC Auto (Bld) Ordered By: Michele Arteaga on 11-19-2022 Monocytes/100 WBC (Bld) 11.5 % . [facility] Neutrophils Auto (Bld) [#/Vo l]Ordered By: Michele Arteaga on 11-19-2022 Neutrophils (Bld) [#/Vol] 3.4 10*3/uL 1.8-7.7 [facility] Neutrophils/100 WBC Auto (Bl d)Ordered By: Michele Arteaga on 11-19-2022 Neutrophils/100 WBC (Bld) 70.7 % . [facility] No Panel InformationOrdered By: Michele Arteaga on 11-19-2022 Estimated GFR () > 60 mL/Min [facility] Comment on above: GFR estimated refere nce range: According to KDOQI guidelines, <60 ml/min/1.73m2 is sufficient to diagnose a patient with chronic kidney disease. Pharmacy Creatinine Clearance (Chem N/A [facility] Nucleated erythrocytes [Pres ence] in Blood by Automated countOrdered By: Michele Arteaga on 11-19-2022 Nucleated RBC Auto Ql (Bld) 0.0 /100{WBC} 0-0.5 [facility] Platelet mean volume Auto (B ld) [Entitic vol]Ordered By: Michele Arteaga on 11-19-2022 Platelet mean volume (Bld) [Entitic vol] 9.3 fL 6.6-10.1 [facility] Platelets Auto (Bld) [#/Vol] Ordered By: Michele Arteaga on 11-19-2022 Platelets (Bld) [#/Vol] 122 10*3/uL 150-450 [facility] Protein [Mass/volume] in Ser um or PlasmaOrdered By: Michele Arteaga on 11-19-2022 Protein [Mass/Vol] 6.2 g/dL 6.1-7.9 [facility] RBC Auto (Bld) [#/Vol]Ordere d By: Michele Arteaga on 11-19-2022 RBC (Bld) [#/Vol] 3.69 10*6/uL 3.90-5.60 [facility] Serum or plasma alanine ervin otransferase measurement without P-5'-P (enzymatic activiOrdered By: Michele Arteaga on 11-19-2022 ALT No additional P-5'-P [Catalytic activity/Vol] 33 U/L 10-60 [facility] Serum or plasma albumin/glob ulin mass ratioOrdered By: Michele Arteaga on 11-19-2022 Albumin/Globulin [Mass ratio] 2.0 {ratio} [facility] Serum or plasma alkaline daniel sphatase measurement (enzymatic activity/volume)Ordered By: Michele Arteaga on 11-19-2022 ALP [Catalytic activity/Vol] 78 U/L 32-92 [facility] Serum or plasma aspartate am inotransferase measurement (enzymatic activity/volume)Ordered By: Michele Arteaga on 11-19-2022 AST [Catalytic activity/Vol] 26 U/L 10-42 [facility] Serum or plasma non-glucuron idated bilirubin measurement (mass/volume)Ordered By: Michele Arteaga on 11-19-2022 Bilirubin.indirect [Mass/Vol] 0.4 mg/dL [facility] Serum or plasma total biliru bin measurement (mass/volume)Ordered By: Michele Arteaga on 11-19-2022 Bilirubin [Mass/Vol] 0.6 mg/dL 0.3-1.2 [facility] WBC Auto (Bld) [#/Vol]Ordere d By: Michele Arteaga on 11-19-2022 WBC (Bld) [#/Vol] 4.8 10*3/uL 4.1-10.5 [facility] CBC AUTO DIFFon 11-05-2022 BASO # 0.0 103/ul Normal 0.0-0.1 [facility] Comment on above: Performed By: #### C BC #### [facility] [address] [place] [address] Dr. Robb Martin Basophils/100 WBC (Bld) 0.7 % Normal 0.2-2.0 [facility] Comment on above: Performed By: #### C BC #### [facility] [address] [place] [address] Dr. Robb Martin EO # 0.1 103/ul Normal 0.0-0.7 [facility] Comment on above: Performed By: #### C BC #### [facility] [address] [place] [address] Dr. Robb Martin Eosinophils/100 WBC (Bld) 1.9 % Normal 0.9-7.0 [facility] Comment on above: Performed By: #### C BC #### [facility] [address] [place] [address] Dr. Robb Martin Erythrocyte distribution width (RBC) [Ratio] 13.4 % Normal 11.0-15.0 [facility] Comment on above: Performed By: #### C BC #### [facility] [address] [place] [address] Dr. Robb Martin Hematocrit (Bld) [Volume fraction] 33.3 % Critically low 42.0-54.0 [facility] Comment on above: Performed By: #### C BC #### [facility] [address] [place] [address] Dr. Robb Martin Hemoglobin (Bld) [Mass/Vol] 11.1 g/dL Critically low 14.0-18.0 [facility] Comment on above: Performed By: #### C BC #### [facility] [address] [place] [address] Dr. Robb Martin IG # 0.01 10e3/ul Normal 0.00-0.03 [facility] Comment on above: Performed By: #### C BC #### [facility] [address] [place] [address] Dr. Robb Martin IG % 0.2 % Normal 0.0-0.5 [facility] Comment on above: Performed By: #### C BC #### [facility] [address] [place] [address] Dr. Robb Martin LYMPH # 0.8 103/ul Critically low 1.2-3.8 [facility] Comment on above: Performed By: #### C BC #### [facility] [address] [place] [address] Dr. Robb Martin Lymphocytes/100 WBC (Bld) 17.6 % Critically low 20.5-60.0 [facility] Comment on above: Performed By: #### C BC #### [facility] [address] [place] [address] Dr. Robb Martin MANUAL DIFF REQ NO Normal [facility] Comment on above: Performed By: #### C BC #### [facility] [address] [place] [address] Dr. Robb Martin MCH (RBC) [Entitic mass] 30.4 pg Normal 25.9-34.0 [facility] Comment on above: Performed By: #### C BC #### [facility] [address] [place] [address] Dr. Robb Martin MCHC (RBC) [Mass/Vol] 33.3 g/dL Normal 29.9-35.2 [facility] Comment on above: Performed By: #### C BC #### [facility] [address] [place] [address] Dr. Robb Martin MCV (RBC) [Entitic vol] 91.2 fL Normal 80.0-94.0 [facility] Comment on above: Performed By: #### C BC #### [facility] [address] [place] [address] Dr. Robb Martin MONO # 0.6 103/ul Normal 0.3-0.8 [facility] Comment on above: Performed By: #### C BC #### [facility] [address] [place] [address] Dr. Robb Martin Monocytes/100 WBC (Bld) 13.9 % Critically high 1.7-12. 0 [facility] Comment on above: Performed By: #### C BC #### [facility] [address] [place] [address] Dr. Robb Martin NEUT # 2.8 103/ul Normal 1.4-6.5 [facility] Comment on above: Performed By: #### C BC #### [facility] [address] [place] [address] Dr. Robb Martin Neutrophils/100 WBC (Bld) 65.7 % Normal 43.0-75.0 [facility] Comment on above: Performed By: #### C BC #### [facility] [address] [place] [address] Dr. Robb Martin Platelet mean volume (Bld) [Entitic vol] 10.3 fL Normal 9.5-13.5 [facility] Comment on above: Performed By: #### C BC #### [facility] [address] [address] [address] Robb Martin PLT 141 103/ul Critically low 150-450 [facility] Comment on above: Performed By: #### C BC #### [facility] [address] [address] [address] Robb Martin RBC 3.65 106/ul Critically low 4.70-6.10 [facility] Comment on above: Performed By: #### C BC #### [facility] [address] [address] [address] Robb Martin WBC 4.3 103/ul Normal 4.0-11.0 [facility] Comment on above: Performed By: #### C BC #### [facility] [address] [address] [address] Robb Martin PROF CHEM 8 (BAS METB)on Anion gap [Moles/Vol] 11.3 mmol/L Normal [facility] Comment on above: Performed By: #### B MP ####[facility] [address] [address]DrSantos Martin Calcium [Mass/Vol] 9.2 mg/dL Normal 8.5-10.1 [facility] Comment on above: Performed By: #### B MP ####[facility] [address] [address]DrSantos Martin Chloride [Moles/Vol] 105 mmol/L Normal 98-107 [facility] Comment on above: Performed By: #### B MP ####[facility] [address] [address]Dr. Robb Martin CO2 [Moles/Vol] 30.7 mmol/L Normal 21.0-32.0 [facility] Comment on above: Performed By: #### B MP ####[facility] [address] [address]DrSantos Martin Creatinine [Mass/Vol] 1.01 mg/dL Normal 0.70-1.30 [facility] Comment on above: Performed By: #### B MP ####[facility] [address] [phone]. Robb Martin EGFR-AF SIERRA LEONEAN >60 Normal >=60 [facility] Comment on above: Performed By: #### B MP ####[facility] [address] [phone]. Robb Mario EGFR-NON AF SIERRA LEONEAN >60 Normal >=60 [facility] Comment on above: Performed By: #### B MP ####[facility] [address] [phone]. Robb Mario Glucose [Mass/Vol] 103 mg/dL Normal 74-106 [facility] Comment on above: Performed By: #### B MP ####[facility] [address] [phone]. Robb Mario Potassium [Moles/Vol] 4.0 mmol/L Normal 3.5-5.1 [facility] Comment on above: Performed By: #### B MP ####[facility] [address] [phone]. Robb Mario Sodium [Moles/Vol] 143 mmol/L Normal 136-145 [facility] Comment on above: Performed By: #### B MP ####[facility] [address] [phone]. Robb Mario Urea nitrogen [Mass/Vol] 17.0 mg/dL Normal 7.0-18.0 [facility] Comment on above: Performed By: #### B MP ####[facility] [address] [phone]. Candyelaina Mario Urea nitrogen/Creatinine [Mass ratio] 16.8 mg/mg Normal [facility] Comment on above: Performed By: #### B MP ####[facility] [address] [phone]. Robb Mario CBC AUTO DIFFon 09-29-2022 BASO # 0.0 103/ul Normal 0.0-0.1 [facility] Comment on above: Performed By: #### C BC #### [facility] [address] [place] [address] Dr. Robb Martin Basophils/100 WBC (Bld) 0.6 % Normal 0.2-2.0 [facility] Comment on above: Performed By: #### C BC #### [facility] [address] [place] [address] Dr. Robb Martin EO # 0.1 103/ul Normal 0.0-0.7 [facility] Comment on above: Performed By: #### C BC #### [facility] [address] [place] [address] Dr. Robb Martin Eosinophils/100 WBC (Bld) 1.4 % Normal 0.9-7.0 [facility] Comment on above: Performed By: #### C BC #### [facility] [address] [place] [address] Dr. Robb Martin Erythrocyte distribution width (RBC) [Ratio] 13.9 % Normal 11.0-15.0 [facility] Comment on above: Performed By: #### C BC #### [facility] [address] [place] [address] Dr. Robb Martin Hematocrit (Bld) [Volume fraction] 35.4 % Critically low 42.0-54.0 [facility] Comment on above: Performed By: #### C BC #### [facility] [address] [place] [address] Dr. Robb Martin Hemoglobin (Bld) [Mass/Vol] 11.3 g/dL Critically low 14.0-18.0 [facility] Comment on above: Performed By: #### C BC #### [facility] [address] [place] [address] Dr. Robb Martin IG # 0.01 10e3/ul Normal 0.00-0.03 [facility] Comment on above: Performed By: #### C BC #### [facility] [address] [place] [address] Dr. Robb Martin IG % 0.2 % Normal 0.0-0.5 [facility] Comment on above: Performed By: #### C BC #### [facility] [address] [place] [address] Dr. Robb Martin LYMPH # 0.7 103/ul Critically low 1.2-3.8 [facility] Comment on above: Performed By: #### C BC #### [facility] [address] [place] [address] Dr. Robb Martin Lymphocytes/100 WBC (Bld) 14.4 % Critically low 20.5-60.0 [facility] Comment on above: Performed By: #### C BC #### [facility] [address] [place] [address] Dr. Robb Martin MANUAL DIFF REQ NO Normal [facility] Comment on above: Performed By: #### C BC #### [facility] [address] [place] [address] Dr. Robb Martin MCH (RBC) [Entitic mass] 31.3 pg Normal 25.9-34.0 [facility] Comment on above: Performed By: #### C BC #### [facility] [address] [place] [address] Dr. Robb Martin MCHC (RBC) [Mass/Vol] 31.9 g/dL Normal 29.9-35.2 [facility] Comment on above: Performed By: #### C BC #### [facility] [address] [place] [address] Dr. Robb Martin MCV (RBC) [Entitic vol] 98.1 fL Critically high 80.0-94 .0 [facility] Comment on above: Performed By: #### C BC #### [facility] [address] [place] [address] Dr. Robb Martin MONO # 0.6 103/ul Normal 0.3-0.8 [facility] Comment on above: Performed By: #### C BC #### [facility] [address] [place] [address] Dr. Robb Martin Monocytes/100 WBC (Bld) 11.1 % Normal 1.7-12.0 [facility] Comment on above: Performed By: #### C BC #### [facility] [address] [address] [address] Robb Martin NEUT # 3.7 103/ul Normal 1.4-6.5 [facility] Comment on above: Performed By: #### C BC #### [facility] [id number] Robb Martin Neutrophils/100 WBC (Bld) 72.3 % Normal 43.0-75.0 [facility] Comment on above: Performed By: #### C BC #### [facility] [address] [address] [address] Robb Martin Platelet mean volume (Bld) [Entitic vol] 10.4 fL Normal 9.5-13.5 [facility] Comment on above: Performed By: #### C BC #### [facility] [address] [address] [address] Robb Martin PLT 122 103/ul Critically low 150-450 [facility] Comment on above: Performed By: #### C BC #### [facility] [address] [address] [address] Robb Martin RBC 3.61 106/ul Critically low 4.70-6.10 [facility] Comment on above: Performed By: #### C BC #### [facility] [address] [address] [address] Robb Martin WBC 5.2 103/ul Normal 4.0-11.0 [facility] Comment on above: Performed By: #### C BC #### [facility] [address] [address] [address] Robb Martin PROF CHEM 8 (BAS METB)on Anion gap [Moles/Vol] 10.6 mmol/L Normal [facility] Comment on above: Performed By: #### B MP ####[facility] [address] [address]Dr. Robb Martin Calcium [Mass/Vol] 9.3 mg/dL Normal 8.5-10.1 [facility] Comment on above: Performed By: #### B MP ####[facility] [address] [address]Dr. Robb Martin Chloride [Moles/Vol] 103 mmol/L Normal 98-107 [facility] Comment on above: Performed By: #### B MP ####[facility] [address] [address]Dr. Robb Martin CO2 [Moles/Vol] 30.2 mmol/L Normal 21.0-32.0 [facility] Comment on above: Performed By: #### B MP ####[facility] [address] [address]Dr. Robb Martin Creatinine [Mass/Vol] 0.98 mg/dL Normal 0.70-1.30 [facility] Comment on above: Performed By: #### B MP ####[facility] [address] [place], [place] [address]Dr. Robb Mario EGFR-AF SIERRA LEONEAN >60 Normal >=60 [facility] Comment on above: Performed By: #### B MP ####[facility] [address] [place], [place] [address]Dr. Robb Martin EGFR-NON AF SIERRA LEONEAN >60 Normal >=60 [facility] Comment on above: Performed By: #### B MP ####[facility] [address] [place], [place] [address]Dr. Candyelaina Martin Glucose [Mass/Vol] 99 mg/dL Normal 74-106 [facility] Comment on above: Performed By: #### B MP ####[facility] [address] [address]Dr. Candyelaina Martin Potassium [Moles/Vol] 3.8 mmol/L Normal 3.5-5.1 [facility] Comment on above: Performed By: #### B MP ####[facility] [address] [address]Dr. Robb Martin Sodium [Moles/Vol] 140 mmol/L Normal 136-145 [facility] Comment on above: Performed By: #### B MP ####[facility] [address] [place], [place] [address]Ro. Robb Martin Urea nitrogen [Mass/Vol] 20.0 mg/dL Critically high 7.0-18.0 [facility] Comment on above: Performed By: #### B MP ####[facility] [address] [place], [place] [address]Bb. Robb Martin Urea nitrogen/Creatinine [Mass ratio] 20.4 mg/mg Normal [facility] Comment on above: Performed By: #### B MP ####[facility] [address] [place], [place] [address]Lk. Robb Martin Basophils Auto (Bld) [#/Vol] Ordered By: Michele Arteaga on 07-20-2022 Basophils (Bld) [#/Vol] 0.0 10*3/uL 0.0-0.2 [facility] Basophils/100 WBC Auto (Bld) Ordered By: Michele Arteaga on 07-20-2022 Basophils/100 WBC (Bld) 0.8 % . [facility] Body fluid albumin measureme nt (mass/volume)Ordered By: Michele Arteaga on 07-20-2022 Albumin (Body fld) [Mass/Vol] 3.8 g/dL 3.2-5.5 [facility] Creatinine and Glomerular fi ltration rate.predicted panel (S/P/Bld)Ordered By: Michele Arteaga on 07-20-2022 Creatinine [Mass/Vol] 1.00 mg/dL 0.64-1.27 [facility] Direct bilirubin measurement Ordered By: Michele Arteaga on 07-20-2022 Bilirubin.direct [Mass/Vol] 0.2 mg/dL 0.0-0.4 [facility] Eosinophils Auto (Bld) [#/Vo l]Ordered By: Michele Arteaga on 07-20-2022 Eosinophils (Bld) [#/Vol] 0.0 10*3/uL 0.0-0.45 [facility] Eosinophils/100 WBC Auto (Bl d)Ordered By: Michele Arteaga on 07-20-2022 Eosinophils/100 WBC (Bld) 1.0 % . [facility] Erythrocyte distribution wid th Auto (RBC) [Ratio]Ordered By: Michele Arteaga on 07-20-2022 Erythrocyte distribution width (RBC) [Ratio] 14.7 % 12.0-14.8 [facility] Erythrocyte sedimentation ra te by Photometric methodOrdered By: Michele Arteaga on 07-20-2022 ESR Photometric method (Bld) [Velocity] 13 mm/hr 0-19 [facility] Estimated glomerular filtrat ion rate (GFR) non- AmericanOrdered By: Michele Arteaga on 07-20-2022 GFR/1.73 sq M.predicted among non-blacks MDRD (S/P/Bld) [Vol rate/Area] > 60 mL/Min [facility] Globulin Calc (S) [Mass/Vol] Ordered By: Michele Arteaga on 07-20-2022 Globulin (S) [Mass/Vol] 2.1 g/dL [facility] Hematocrit Auto (Bld) [Volum e fraction]Ordered By: Michele Arteaga on 07-20-2022 Hematocrit (Bld) [Volume fraction] 32.4 % 38.8-50.0 [facility] Hemoglobin [Mass/volume] in BloodOrdered By: Michele Arteaga on 07-20-2022 Hemoglobin (Bld) [Mass/Vol] 10.8 g/dL 13.0-17.0 [facility] Laboratory - Hematology and Cell countsOrdered By: Michele Arteaga on 07-20-2022 Nucleated RBC/100 WBC (Bld) [Ratio] 0.0 % 0-0.5 [facility] Leukocytes [#/volume] in Blo od by Automated countOrdered By: Michele Arteaga on 07-20-2022 WBC (Bld) [#/Vol] 4.6 10*3/uL 4.5-11.0 [facility] Lymphocytes Auto (Bld) [#/Vo l]Ordered By: Michele Arteaga on 07-20-2022 Lymphocytes (Bld) [#/Vol] 0.6 10*3/uL 1.00-4.8 [facility] Lymphocytes/100 WBC Auto (Bl d)Ordered By: Michele Arteaga on 07-20-2022 Lymphocytes/100 WBC (Bld) 13.8 % . [facility] MCH Auto (RBC) [Entitic mass ]Ordered By: Michele Arteaga on 07-20-2022 MCH (RBC) [Entitic mass] 31.8 pg 27.5-35.2 [facility] MCHC Auto (RBC) [Mass/Vol]Or dered By: Michele Arteaga on 07-20-2022 MCHC (RBC) [Mass/Vol] 33.2 g/dL 32.5-35.6 [facility] MCV Auto (RBC) [Entitic vol] Ordered By: Michele Arteaga on 07-20-2022 MCV (RBC) [Entitic vol] 95.8 fL 83.5-101 [facility] Monocytes Auto (Bld) [#/Vol] Ordered By: Michele Arteaga on 07-20-2022 Monocytes (Bld) [#/Vol] 0.4 10*3/uL 0.0-0.8 [facility] Monocytes/100 WBC Auto (Bld) Ordered By: Michele Arteaga on 07-20-2022 Monocytes/100 WBC (Bld) 9.1 % . [facility] Neutrophils Auto (Bld) [#/Vo l]Ordered By: Michele Arteaga on 07-20-2022 Neutrophils (Bld) [#/Vol] 3.5 10*3/uL 1.8-7.7 [facility] Neutrophils/100 WBC Auto (Bl d)Ordered By: Michele Arteaga on 07-20-2022 Neutrophils/100 WBC (Bld) 75.3 % . [facility] No Panel InformationOrdered By: Michele Arteaga on 07-20-2022 Estimated GFR () > 60 mL/Min [facility] Comment on above: GFR estimated refere nce range: According to KDOQI guidelines, <60 ml/min/1.73m2 is sufficient to diagnose a patient with chronic kidney disease. Pharmacy Creatinine Clearance (Chem N/A [facility] Platelet mean volume Auto (B ld) [Entitic vol]Ordered By: Michele Arteaga on 07-20-2022 Platelet mean volume (Bld) [Entitic vol] 8.7 fL 6.6-10.1 [facility] Platelets Auto (Bld) [#/Vol] Ordered By: Michele Arteaga on 07-20-2022 Platelets (Bld) [#/Vol] 140 10*3/uL 150-450 [facility] Protein [Mass/volume] in Ser um or PlasmaOrdered By: Michele Arteaga on 07-20-2022 Protein [Mass/Vol] 5.9 g/dL 6.1-7.9 [facility] RBC Auto (Bld) [#/Vol]Ordere d By: Michele Arteaga on 07-20-2022 RBC (Bld) [#/Vol] 3.39 10*6/uL 3.90-5.60 [facility] Serum or plasma alanine ervin otransferase measurement without P-5'-P (enzymatic activiOrdered By: Michele Arteaga on 07-20-2022 ALT No additional P-5'-P [Catalytic activity/Vol] 29 U/L 10-60 [facility] Serum or plasma albumin/glob ulin mass ratioOrdered By: Michele Arteaga on 07-20-2022 Albumin/Globulin [Mass ratio] 1.8 {ratio} [facility] Serum or plasma alkaline daniel sphatase measurement (enzymatic activity/volume)Ordered By: Michele Arteaga on 07-20-2022 ALP [Catalytic activity/Vol] 68 U/L 32-92 [facility] Serum or plasma aspartate am inotransferase measurement (enzymatic activity/volume)Ordered By: Michele Arteaga on 07-20-2022 AST [Catalytic activity/Vol] 24 U/L 10-42 [facility] Serum or plasma non-glucuron idated bilirubin measurement (mass/volume)Ordered By: Michele Arteaga on 07-20-2022 Bilirubin.indirect [Mass/Vol] 0.7 mg/dL [facility] Serum or plasma total biliru bin measurement (mass/volume)Ordered By: Michele Arteaga on 07-20-2022 Bilirubin [Mass/Vol] 0.9 mg/dL 0.3-1.2 [facility] ECHOCARDIO M/2D COMPLETEon 0 04-20-2022 ECHOCARDIO M/2D COMPLETE Patient: SEBASTIAN HANNON Exam Date: 04/20/2022 : 1935 Gender:M Ordering : RENEE JUDGE Admission #: [id number] Family : UMA ZANDRA D.O. Order #: [id number] CLICK HERE TO VIEW EXAM ECHOCARDIOGRAM REPORT [...] Dylon Kate M.D. on 04/20/2022 at 17:06 [facility]*on 11-03-2021 XR clavicle RT* [facility] [employer] Other XR clavicle RT* [facility] Main On[place] Nor [employer] Other XR clavicle RT* [address] [facility] No rt [employer] Other XR clavicle RT* [place] [address] [facility] [employer] Other XR clavicle RT* XRay Report [place] [employer] Other XR clavicle RT* Signed [employer] Other XR clavicle RT* Patient: Sebastian Hannon MR#: [id number] [place] [employer] Other XR clavicle RT* 0 [employer] Other XR clavicle RT* : 1935 Acct:[id number] [place] [employer] Other XR clavicle RT* Age/Sex: 86 / M ADM Date: 11/03/21 [employer] Other XR clavicle RT* Loc: [facility] Room: Type : [facility] [employer] Other XR clavicle RT* Attending Dr: Vinh Lawton DO [employer] Other XR clavicle RT* Ordering Provider: Vinh Lawton DO [employer] Other XR clavicle RT* Date of Service: 11/03/21 [employer] Other XR clavicle RT* XR/XR clavicle RT*: Displaced fracture of lateral end of right clavicle, [employer] Other XR clavicle RT* subsequ [employer] Other XR clavicle RT* Copies to: Vinh Lawton DO [employer] Other XR clavicle RT* 2 views RIGHT clavicle [employer] Other XR clavicle RT* COMPARISON: 10/06/21 [employer] Other XR clavicle RT* HISTORY: Status post RIGHT clavicle fracture [employer] Other XR clavicle RT* There is redemonstration of the distal clavicle fracture. There is subtle callus formation [employer] Other XR clavicle RT* suggesting interval healing. Bony alignment is unchanged. [employer] Other XR clavicle RT* XR/XR clavicle RT* [employer] Other XR clavicle RT* IMPRESSION: Healing distal RIGHT clavicle fracture. Unchanged bony alignment. [employer] Other XR clavicle RT* Impression dictated by: Abdoul William M.D.11/03/2021 4:06 PM [employer] Other XR clavicle RT* Dictation Location: [place] [address] [employer] Other XR clavicle RT* Transcribed By: PHYLLIS 11/03/21 [facility] [employer] Other XR clavicle RT* Dictated By: Abdoul William DO 11/03/21 [facility] [employer] Other XR clavicle RT* Signed By: [employer] [facility] [employer] Other XR clavicle RT* 11/03/21 [facility] [employer] Other Cardiovascular Lab Reporton 08-25-2021 Cardiovascular Lab Report [facility] Patient Name: Parvez [facility] MR #: [id number] Physician: Renee Judge MD Department of Service Date: 08/25/2021 Medicine Birthdate: 1935 Division of Room #: [facility] Cardiology Adult Cardiovascular Services [address] [address] Cardiovascular Laboratory Report [facility]-UPGRADE PROCEDURE NOTE DATE OF PROCEDURE: 08/25/2021 PERFORMING PHYSICIAN: Dr. Renee Judge CONSENT: Patient LOCATION: EP Lab PROCEDURE [...] occasions using seldinger technique using a 5 Maltese micropunture needle. There was difficulty guiding the [...] lead position on orthogonal views (MCBRIDE and BRAZILIAN) to confirm position in the septal aspect, the screw was activated. After confirmation of good sensing parameters, injury pattern and pacing thresholds, 10V pacing was done and no diaphragmatic stimulation was noted. It was then secured in the pocket using two 0- Silk sutures. I then proceeded to perform the LV lead placement. A [place] sheath was advanced into the RV over [...] lead position on orthogonal views (MCBRIDE and BRAZILIAN) to confirm position in the septal aspect, [...] lead were then attached to a [employer]-D device and the leads tug tested. Pocket hemostasis was achieved, and it was then copiously and vigorously irrigated with antiobiotic so (more content not included)... Normal [facility] Vital Signs Date Time Vital Sign Value Performing Clinician Facility 06-18-2025 15:00-0400 Body temperature 97.9 [degF] Ludwig Hawkins MD Work Phone: [facility] 06-18-2025 15:00-0400 Diastolic blood pressure 60 mm[Hg] Ludwig Hawkins MD Work Phone: 6(407)110-726878 [place] [address] 06-18-2025 15:00-0400 Heart rate 64 /min Ludwig Hawkins MD Work Phone: 0(718)732-245878 [place] [address] 06-18-2025 15:00-0400 Respiratory rate 20 /min Ludwig Hawkins MD Work Phone: 4(863)906-871778 [place] [address] 06-18-2025 15:00-0400 SaO2% (BldA) [Mass fraction] 98 % Ludwig Hawkins MD Work Phone: 6(923)219-275978 [place] [address] 06-18-2025 15:00-0400 Systolic blood pressure 127 mm[Hg] Ludwig Hawkins MD Work Phone: 5(271)698-042378 [place] [address] 06-16-2025 11:26-0400 Body mass index (BMI) [Ratio] 23 kg/m2 Ludwig Hawkins MD Work Phone: 7(467)712-715178 [place] [address] 06-16-2025 11:26-0400 Body weight 72.7 kg Ludwig Hawkins MD Work Phone: 1(642)262-774278 [place] [address] 06-11-2025 11:45-0400 Body height 177.8 cm Ludwig Hawkins MD Work Phone: 8(110)497-344178 [place] [address] 06-10-2025 16:53-0400 Body temperature 97.9 [degF] Felix Sweeney MD Work Phone: 9(597)256-374955 [place] [address] 06-10-2025 16:53-0400 Diastolic blood pressure 60 mm[Hg] Felix Sweeney MD Work Phone: 2(132)475-377655 [place] [address] 06-10-2025 16:53-0400 Heart rate 63 /min Felix Sweeney MD Work Phone: 7(785)618-447555 [place] [address] 06-10-2025 16:53-0400 Respiratory rate 18 /min Felix Sweeney MD Work Phone: [facility] 06-10-2025 16:53-0400 SaO2% (BldA) [Mass fraction] 97 % Felix Sweeney MD Work Phone: [facility] 06-10-2025 16:53-0400 Systolic blood pressure 134 mm[Hg] Felix Sweeney MD Work Phone: [facility] 06-09-2025 15:27-0400 Body height 177.8 cm Felix Sweeney MD Work Phone: [facility] 05-21-2025 16:12-0400 Body temperature 98.4 [degF] Zuri Diaz RN [facility] 05-21-2025 16:12-0400 Diastolic blood pressure 67 mm[Hg] Zuri Diaz RN [facility] 05-21-2025 16:12-0400 Heart rate 66 /min Zuri Diaz RN [facility] 05-21-2025 16:12-0400 Respiratory rate 18 /min Zuri Diaz RN [facility] 05-21-2025 16:12-0400 SaO2% (BldA) [Mass fraction] 100 % Zuri Diaz RN [facility] 05-21-2025 16:12-0400 Systolic blood pressure 157 mm[Hg] Zuri Diaz RN [facility] 05-21-2025 13:39-0400 Body height 177.8 cm Duglas Walsh MD, PhD Work Phone: [facility] 05-21-2025 13:39-0400 Body mass index (BMI) [Ratio] 22.74 kg/m2 Duglas Walsh MD, PhD Work Phone: [facility] 05-21-2025 13:39-0400 Body temperature 98.01 [degF] Duglas Walsh MD, PhD Work Phone: [facility] 05-21-2025 13:39-0400 Body weight 71.89 kg Duglas Walsh MD, PhD Work Phone: [facility] 05-21-2025 13:39-0400 Diastolic blood pressure 63 mm[Hg] Duglas Walsh MD, PhD Work Phone: [facility] 05-21-2025 13:39-0400 Heart rate 73 /min Duglas Walsh MD, PhD Work Phone: 5(508)114-170983 [address] 05-21-2025 13:39-0400 Respiratory rate 12 /min Duglas Walsh MD, PhD Work Phone: 7(259)667-674132 [place] [address] 05-21-2025 13:39-0400 SaO2% (BldA) [Mass fraction] 97 % Duglas Wlash MD, PhD Work Phone: 0(292)864-527732 [place] [address] 05-21-2025 13:39-0400 Systolic blood pressure 134 mm[Hg] Duglas Walsh MD, PhD Work Phone: 7(721)644-396532 [place] [address] 05-11-2025 08:13-0400 Diastolic blood pressure 55 mm[Hg] Duglas Walsh MD, PhD Work Phone: 9(948)223-783532 [place] [address] 05-11-2025 08:13-0400 Systolic blood pressure 120 mm[Hg] Duglas Walsh MD, PhD Work Phone: 8(580)056-860132 [place] [address] 05-10-2025 08:53-0400 Body height 177.8 cm Duglas Walsh MD, PhD Work Phone: 6(340)575-269532 [place] [address] 05-10-2025 08:53-0400 Body mass index (BMI) [Ratio] 23.12 kg/m2 Duglas Walsh MD, PhD Work Phone: 4(296)[phone] [place] [address] 05-10-2025 08:53-0400 Body temperature 98.01 [degF] Duglas Walsh MD, PhD Work Phone: 3(586)[phone] [place] [address] 05-10-2025 08:53-0400 Body weight 73.07 kg Duglas Walsh MD, PhD Work Phone: [facility] 05-10-2025 08:53-0400 Diastolic blood pressure 60 mm[Hg] Duglas Walsh MD, PhD Work Phone: [facility] 05-10-2025 08:53-0400 Heart rate 70 /min Duglas Walsh MD, PhD Work Phone: [facility] 05-10-2025 08:53-0400 Respiratory rate 16 /min Duglas Walsh MD, PhD Work Phone: [facility] 05-10-2025 08:53-0400 SaO2% (BldA) [Mass fraction] 97 % Duglas Walsh MD, PhD Work Phone: [facility] 05-10-2025 08:53-0400 Systolic blood pressure 134 mm[Hg] Duglas Walsh MD, PhD Work Phone: [facility] 04-19-2025 14:26-0400 Body height 177.8 cm Uma Ball DO Work Phone: [facility] 04-19-2025 14:26-0400 Body mass index (BMI) [Ratio] 23.5 kg/m2 Uma Ball DO Work Phone: [facility] 04-19-2025 14:26-0400 Body temperature 97.7 [degF] Uma Ball DO Work Phone: [facility] 04-19-2025 14:26-0400 Body weight 74.38 kg Uma Ball DO Work Phone: [facility] 04-19-2025 14:26-0400 Diastolic blood pressure 71 mm[Hg] Uma Ball DO Work Phone: [facility] 04-19-2025 14:26-0400 Heart rate 64 /min Uma Ball DO Work Phone: [facility] 04-19-2025 14:26-0400 Respiratory rate 16 /min Uma Ball DO Work Phone: [facility] 04-19-2025 14:26-0400 SaO2% (BldA) [Mass fraction] 99 % Uma Ball DO Work Phone: [facility] 04-19-2025 14:26-0400 Systolic blood pressure 134 mm[Hg] Uma Ball DO Work Phone: [facility] 04-17-2025 13:51-0400 Body mass index (BMI) [Ratio] 23.35 kg/m2 Duglas Busby MD Work Phone: [facility] 04-17-2025 13:51-0400 Body temperature 98.1 [degF] Duglas Busby MD Work Phone: [facility] 04-17-2025 13:51-0400 Body weight 74.89 kg Duglas Busby MD Work Phone: [facility] 04-17-2025 13:51-0400 Diastolic blood pressure 62 mm[Hg] Duglas Busby MD Work Phone: [facility] 04-17-2025 13:51-0400 Heart rate 64 /min Duglas Busby MD Work Phone: [facility] 04-17-2025 13:51-0400 Respiratory rate 18 /min Duglas Busby MD Work Phone: [facility] 04-17-2025 13:51-0400 SaO2% (BldA) [Mass fraction] 95 % Duglas Busby MD Work Phone: [facility] 04-17-2025 13:51-0400 Systolic blood pressure 123 mm[Hg] Duglas Busby MD Work Phone: [facility] 03-21-2025 08:55-0400 Body height 177.8 cm Uma Ball DO Work Phone: [facility] 03-21-2025 08:55-0400 Body mass index (BMI) [Ratio] 23.3 kg/m2 Uma Ball DO Work Phone: [facility] 03-21-2025 08:55-0400 Body weight 73.93 kg Uma Ball DO Work Phone: [facility] 03-21-2025 08:55-0400 Diastolic blood pressure 68 mm[Hg] Uma Ball DO Work Phone: [facility] 03-21-2025 08:55-0400 Heart rate 64 /min Uma Ball DO Work Phone: [facility] 03-21-2025 08:55-0400 Respiratory rate 12 /min Uma Ball DO Work Phone: [facility] 03-21-2025 08:55-0400 SaO2% (BldA) [Mass fraction] 97 % Uma Ball DO Work Phone: [facility] 03-21-2025 08:55-0400 Systolic blood pressure 126 mm[Hg] Uma Ball DO Work Phone: [facility] 01-23-2025 08:38-0400 Body height 177.8 cm Uma Ball DO Work Phone: [facility] 01-23-2025 08:38-0400 Body mass index (BMI) [Ratio] 23.8 kg/m2 Uma Ball DO Work Phone: [facility] 01-23-2025 08:38-0400 Body weight 75.29 kg Uma Ball DO Work Phone: [facility] 01-23-2025 08:38-0400 Diastolic blood pressure 66 mm[Hg] Uma Ball DO Work Phone: [facility] 01-23-2025 08:38-0400 Heart rate 69 /min Uma Ball DO Work Phone: [facility] 01-23-2025 08:38-0400 Respiratory rate 12 /min Uma Ball DO Work Phone: [facility] 01-23-2025 08:38-0400 SaO2% (BldA) [Mass fraction] 97 % Uma Ball DO Work Phone: [facility] 01-23-2025 08:38-0400 Systolic blood pressure 156 mm[Hg] Uma Ball DO Work Phone: [facility] 01-16-2025 10:44-0400 Body height 177.8 cm Uma Ball DO Work Phone: [facility] 01-16-2025 10:44-0400 Body mass index (BMI) [Ratio] 23.8 kg/m2 Uma Ball DO Work Phone: [facility] 01-16-2025 10:44-0400 Body weight 75.4 kg Uma Ball DO Work Phone: [facility] 01-16-2025 10:44-0400 Diastolic blood pressure 64 mm[Hg] Uma Ball DO Work Phone: [facility] 01-16-2025 10:44-0400 Heart rate 68 /min Uma Ball DO Work Phone: [facility] 01-16-2025 10:44-0400 Respiratory rate 12 /min Uma Ball DO Work Phone: [facility] 01-16-2025 10:44-0400 SaO2% (BldA) [Mass fraction] 97 % Uma Ball DO Work Phone: [facility] 01-16-2025 10:44-0400 Systolic blood pressure 152 mm[Hg] Uma Ball DO Work Phone: [facility] 01-10-2025 13:52-0400 Body height 177.8 cm Uma Ball DO Work Phone: [facility] 01-10-2025 13:52-0400 Body mass index (BMI) [Ratio] 24.2 kg/m2 Uma Ball DO Work Phone: [facility] 01-10-2025 13:52-0400 Body temperature 97.5 [degF] Uma Ball DO Work Phone: [facility] 01-10-2025 13:52-0400 Body weight 76.65 kg Uma Ball DO Work Phone: [facility] 01-10-2025 13:52-0400 Diastolic blood pressure 64 mm[Hg] Uma Ball DO Work Phone: [facility] 01-10-2025 13:52-0400 Heart rate 67 /min Uma Ball DO Work Phone: [facility] 01-10-2025 13:52-0400 Respiratory rate 16 /min Uma Ball DO Work Phone: [facility] 01-10-2025 13:52-0400 SaO2% (BldA) [Mass fraction] 99 % Uma Ball DO Work Phone: [facility] 01-10-2025 13:52-0400 Systolic blood pressure 123 mm[Hg] Uma Ball DO Work Phone: [facility] 01-05-2025 11:51-0400 Body height 177.8 cm Uma Ball DO Work Phone: [facility] 01-05-2025 11:51-0400 Body mass index (BMI) [Ratio] 24 kg/m2 Uma Ball DO Work Phone: [facility] 01-05-2025 11:51-0400 Body weight 75.8 kg Uma Ball DO Work Phone: [facility] 01-05-2025 11:51-0400 Diastolic blood pressure 59 mm[Hg] Uma Ball DO Work Phone: [facility] 01-05-2025 11:51-0400 Heart rate 73 /min Uma Ball DO Work Phone: [facility] 01-05-2025 11:51-0400 Respiratory rate 12 /min Uma Ball DO Work Phone: [facility] 01-05-2025 11:51-0400 Systolic blood pressure 139 mm[Hg] Uma Ball DO Work Phone: [facility] 11-20-2024 09:08-0500 Body height 177.8 cm Uma Ball DO Work Phone: [facility] 11-20-2024 09:08-0500 Body mass index (BMI) [Ratio] 23.3 kg/m2 Uma Ball DO Work Phone: [facility] 11-20-2024 09:08-0500 Body weight 73.65 kg Uma Ball DO Work Phone: [facility] 11-20-2024 09:08-0500 Diastolic blood pressure 55 mm[Hg] Uma Ball DO Work Phone: [facility] 11-20-2024 09:08-0500 Heart rate 76 /min Uma Ball DO Work Phone: [facility] 11-20-2024 09:08-0500 Respiratory rate 12 /min Uma Ball DO Work Phone: [facility] 11-20-2024 09:08-0500 Systolic blood pressure 135 mm[Hg] Uma Ball DO Work Phone: [facility] 10-05-2024 14:52-0500 Body height 177.8 cm Uma Ball DO Work Phone: [facility] 10-05-2024 14:52-0500 Body mass index (BMI) [Ratio] 23.5 kg/m2 Uma Ball DO Work Phone: [facility] 10-05-2024 14:52-0500 Body temperature 97.8 [degF] Uma Ball DO Work Phone: [facility] 10-05-2024 14:52-0500 Body weight 74.38 kg Uma Ball DO Work Phone: [facility] 10-05-2024 14:52-0500 Diastolic blood pressure 73 mm[Hg] Uma Ball DO Work Phone: [facility] 10-05-2024 14:52-0500 Heart rate 66 /min Uma Ball DO Work Phone: [facility] 10-05-2024 14:52-0500 Respiratory rate 16 /min Uma Ball DO Work Phone: [facility] 10-05-2024 14:52-0500 SaO2% (BldA) [Mass fraction] 98 % Uma Ball DO Work Phone: [facility] 10-05-2024 14:52-0500 Systolic blood pressure 167 mm[Hg] Uma Ball DO Work Phone: [facility] 2024 15:15-0400 Body height 179.1 cm Elkin Holly MD Work Phone: [facility] 2024 15:15-0400 Body mass index (BMI) [Ratio] 23.45 kg/m2 Elkin Holly MD Work Phone: [facility] 2024 15:15-0400 Body weight 75.21 kg Elkin Holly MD Work Phone: [facility] 07-20-2024 09:20-0400 Body mass index (BMI) [Ratio] 23.4 kg/m2 DO Uma Ball Work Phone: [facility] 07-20-2024 09:20-0400 Diastolic blood pressure 89 mm[Hg] DO Uma Ball Work Phone: [facility] 07-20-2024 09:20-0400 Systolic blood pressure 139 mm[Hg] DO Uma Ball Work Phone: [facility] 07-20-2024 09:03-0400 Body height 177.8 cm DO Uma Ball Work Phone: [facility] 07-20-2024 09:03-0400 Body weight 74.16 kg DO Uma Ball Work Phone: [facility] 07-20-2024 09:03-0400 Heart rate 61 /min DO Uma Ball Work Phone: [facility] 07-20-2024 09:03-0400 Respiratory rate 12 /min DO Uma Ball Work Phone: [facility] 07-06-2024 14:02-0400 Body height 177.8 cm DO Uma Ball Work Phone: [facility] 07-06-2024 14:02-0400 Body mass index (BMI) [Ratio] 23.5 kg/m2 DO Uma Ball Work Phone: [facility] 07-06-2024 14:02-0400 Body temperature 97.5 [degF] DO Uma Ball Work Phone: [facility] 07-06-2024 14:02-0400 Body weight 74.38 kg DO Uma Ball Work Phone: [facility] 07-06-2024 14:02-0400 Diastolic blood pressure 65 mm[Hg] DO Uma Ball Work Phone: [facility] 07-06-2024 14:02-0400 Heart rate 59 /min DO Uma Ball Work Phone: [facility] 07-06-2024 14:02-0400 Respiratory rate 16 /min DO Uma Ball Work Phone: [facility] 07-06-2024 14:02-0400 SaO2% (BldA) [Mass fraction] 99 % DO Uma Ball Work Phone: [facility] 07-06-2024 14:02-0400 Systolic blood pressure 126 mm[Hg] DO Uma Ball Work Phone: [facility] 06-21-2024 10:21-0400 Body height 177.8 cm DO Uma Ball Work Phone: [facility] 06-21-2024 10:21-0400 Body mass index (BMI) [Ratio] 23.5 kg/m2 DO Uma Ball Work Phone: [facility] 06-21-2024 10:21-0400 Body temperature 97.9 [degF] DO Uma Ball Work Phone: [facility] 06-21-2024 10:21-0400 Body weight 74.38 kg DO Uma Ball Work Phone: [facility] 06-21-2024 10:21-0400 Diastolic blood pressure 65 mm[Hg] DO Uma Ball Work Phone: [facility] 06-21-2024 10:21-0400 Heart rate 60 /min DO Uma Ball Work Phone: [facility] 06-21-2024 10:21-0400 Respiratory rate 16 /min DO Uma Ball Work Phone: [facility] 06-21-2024 10:21-0400 SaO2% (BldA) [Mass fraction] 99 % DO Uma Ball Work Phone: [facility] 06-21-2024 10:21-0400 Systolic blood pressure 154 mm[Hg] DO Uma Ball Work Phone: [facility] 05-22-2024 08:37-0400 Blood Pressure Location Cristela WINTER [facility] 05-22-2024 08:37-0400 Body temperature 98.6 [degF] Cristela WINTER [facility] 05-22-2024 08:37-0400 Diastolic blood pressure 70 mm[Hg] Cristela WINTER [facility] 05-22-2024 08:37-0400 Heart rate 62 /min Cristela WINTER [facility] 05-22-2024 08:37-0400 Respiratory rate 16 /min Cristela WINTER [facility] 05-22-2024 08:37-0400 Systolic blood pressure 130 mm[Hg] Cristela WINTER [facility] 04-25-2024 09:24-0400 Body height 177.8 cm DO Uma Ball Work Phone: [facility] 04-25-2024 09:24-0400 Body mass index (BMI) [Ratio] 23.5 kg/m2 DO Uma Ball Work Phone: [facility] 04-25-2024 09:24-0400 Body weight 74.38 kg DO Uma Ball Work Phone: [facility] 04-25-2024 09:24-0400 Diastolic blood pressure 73 mm[Hg] DO Uma Ball Work Phone: [facility] 04-25-2024 09:24-0400 Heart rate 72 /min DO Uma Ball Work Phone: [facility] 04-25-2024 09:24-0400 Respiratory rate 12 /min DO Uma Ball Work Phone: [facility] 04-25-2024 09:24-0400 Systolic blood pressure 152 mm[Hg] DO Uma Ball Work Phone: [facility] 03-16-2024 11:22-0400 Body height 177.8 cm DO Uma Ball Work Phone: [facility] 03-16-2024 11:22-0400 Body mass index (BMI) [Ratio] 23.9 kg/m2 DO Uma Ball Work Phone: [facility] 03-16-2024 11:22-0400 Body temperature 97.2 [degF] DO Uma Ball Work Phone: [facility] 03-16-2024 11:22-0400 Body weight 75.74 kg DO Uma Ball Work Phone: [facility] 03-16-2024 11:22-0400 Diastolic blood pressure 70 mm[Hg] DO Uma Ball Work Phone: [facility] 03-16-2024 11:22-0400 Heart rate 98 /min DO Uma Ball Work Phone: [facility] 03-16-2024 11:22-0400 Respiratory rate 16 /min DO Uma Ball Work Phone: [facility] 03-16-2024 11:22-0400 SaO2% (BldA) [Mass fraction] 97 % DO Uma Ball Work Phone: [facility] 03-16-2024 11:22-0400 Systolic blood pressure 154 mm[Hg] DO Uma Ball Work Phone: [facility] 01-19-2024 08:29-0400 Body height 177.8 cm DO Uam Ball Work Phone: [facility] 01-19-2024 08:29-0400 Body mass index (BMI) [Ratio] 23.1 kg/m2 DO Uma Ball Work Phone: [facility] 01-19-2024 08:29-0400 Body weight 73.25 kg DO Uma Ball Work Phone: [facility] 01-19-2024 08:29-0400 Diastolic blood pressure 71 mm[Hg] DO Uma Ball Work Phone: [facility] 01-19-2024 08:29-0400 Heart rate 71 /min DO Uma Ball Work Phone: [facility] 01-19-2024 08:29-0400 Respiratory rate 12 /min DO Uma Ball Work Phone: [facility] 01-19-2024 08:29-0400 Systolic blood pressure 136 mm[Hg] DO Uma Ball Work Phone: [facility] 01-17-2024 15:05-0400 Body height 177.8 cm Elkin Holly MD Work Phone: [facility] 01-17-2024 15:05-0400 Body mass index (BMI) [Ratio] 22.93 kg/m2 Elkin Holly MD Work Phone: [facility] 01-17-2024 15:05-0400 Body temperature 97.7 [degF] Elkin Holly MD Work Phone: [facility] 01-17-2024 15:05-0400 Body weight 72.48 kg Elkin Holly MD Work Phone: [facility] 01-17-2024 15:05-0400 Diastolic blood pressure 69 mm[Hg] Elkin Holly MD Work Phone: [facility] 01-17-2024 15:05-0400 Systolic blood pressure 135 mm[Hg] Elkin Holly MD Work Phone: [facility] 12-17-2023 11:37-0400 Body temperature 97.2 [degF] DO Uma Ball Work Phone: [facility] 12-17-2023 11:37-0400 Body weight 78.47 kg DO Uma Ball Work Phone: [facility] 12-17-2023 11:37-0400 Diastolic blood pressure 69 mm[Hg] DO Uma Ball Work Phone: [facility] 12-17-2023 11:37-0400 Heart rate 66 /min DO Uma Ball Work Phone: [facility] 12-17-2023 11:37-0400 Respiratory rate 16 /min DO Uma Ball Work Phone: [facility] 12-17-2023 11:37-0400 SaO2% (BldA) [Mass fraction] 97 % DO Uma Ball Work Phone: [facility] 12-17-2023 11:37-0400 Systolic blood pressure 170 mm[Hg] DO Uma Ball Work Phone: [facility] 11-24-2023 08:24-0500 Body height 177.8 cm DO Uma Ball Work Phone: [facility] 11-24-2023 08:24-0500 Body mass index (BMI) [Ratio] 24.7 kg/m2 DO Uma Ball Work Phone: [facility] 11-24-2023 08:24-0500 Body temperature 97 [degF] DO Uma Ball Work Phone: [facility] 11-24-2023 08:24-0500 Body weight 78.01 kg DO Uma Ball Work Phone: [facility] 11-24-2023 08:24-0500 Diastolic blood pressure 56 mm[Hg] DO Uma Ball Work Phone: [facility] 11-24-2023 08:24-0500 Heart rate 60 /min DO Uma Ball Work Phone: [facility] 11-24-2023 08:24-0500 Respiratory rate 16 /min DO Uma Ball Work Phone: [facility] 11-24-2023 08:24-0500 SaO2% (BldA) [Mass fraction] 97 % DO Uma Ball Work Phone: [facility] 11-24-2023 08:24-0500 Systolic blood pressure 125 mm[Hg] DO Uma Ball Work Phone: [facility] 11-19-2023 10:43-0500 Body height 177.8 cm DO Uma Ball Work Phone: [facility] 11-19-2023 10:43-0500 Body weight 77.11 kg DO Uma Ball Work Phone: [facility] 11-08-2023 14:46-0500 Body height 177.8 cm Elkin Holly MD Work Phone: [facility] 11-08-2023 14:46-0500 Body mass index (BMI) [Ratio] 24.54 kg/m2 Elkin Holly MD Work Phone: [facility] 11-08-2023 14:46-0500 Body temperature 97.5 [degF] Elkin Holly MD Work Phone: [facility] 11-08-2023 14:46-0500 Body weight 77.56 kg Elkin Holly MD Work Phone: [facility] 11-08-2023 14:46-0500 Diastolic blood pressure 68 mm[Hg] Elkin Holly MD Work Phone: 3(336)393-498199 [place] [address] 11-08-2023 14:46-0500 Systolic blood pressure 155 mm[Hg] Elkin Holly MD Work Phone: 8(193)912-716699 [place] [address] 10-28-2023 18:15-0500 Diastolic blood pressure 76 mm[Hg] Elkin Holly MD Work Phone: 1(424)377-565099 [place] [address] 10-28-2023 18:15-0500 Heart rate 60 /min Elkin Holly MD Work Phone: 1(580)982-580399 [place] [address] 10-28-2023 18:15-0500 Respiratory rate 12 /min Elkin Holly MD Work Phone: 6(428)[phone] [place] [address] 10-28-2023 18:15-0500 SaO2% (BldA) [Mass fraction] 100 % Elkin Holly MD Work Phone: 2(953)444-787299 [place] [address] 10-28-2023 18:15-0500 Systolic blood pressure 166 mm[Hg] Elkin Holly MD Work Phone: 1(560)482-117499 [place] [address] 10-28-2023 17:00-0500 Body temperature 96.8 [degF] Elkin Holly MD Work Phone: 4(550)987-594799 [place] [address] 10-28-2023 12:33-0500 Body height 177.8 cm Elkin Holly MD Work Phone: 9(400)157-174199 [place] [address] 10-28-2023 12:33-0500 Body mass index (BMI) [Ratio] 24.39 kg/m2 Elkin Holly MD Work Phone: 9(630)957-039799 [place] [address] 10-28-2023 12:33-0500 Body weight 77.11 kg Elkin Holly MD Work Phone: 8(488)647-250399 [place] [address] 10-19-2023 10:00-0500 Body height 157.48 cm Uma Ball Other [facility] 10-19-2023 10:00-0500 Body mass index (BMI) [Ratio] 31.09 kg/m2 Uma Ball Other [facility] Other 10-19-2023 10:00-0500 Body weight 77.11 kg Uma Ball Other [facility] 10-19-2023 10:00-0500 Diastolic blood pressure 80 mm[Hg] Uma Ball Other [facility] 10-19-2023 10:00-0500 Respiratory rate 12 /min Uma Ball Other [facility] [employer] Other 10-19-2023 10:00-0500 Systolic blood pressure 138 mm[Hg] Uma Ball Other [facility] 10-08-2023 09:27-0500 Body height 179.1 cm Elkin Holly MD Work Phone: [facility] 10-08-2023 09:27-0500 Body mass index (BMI) [Ratio] 24.15 kg/m2 Elkin Holly MD Work Phone: [facility] 10-08-2023 09:27-0500 Body weight 77.43 kg Elkin Holly MD Work Phone: [facility] 07-05-2023 11:00-0400 Body height 157.48 cm Uma Ball Other [facility] [employer] Other 07-05-2023 11:00-0400 Body mass index (BMI) [Ratio] 30.5 kg/m2 Uma Ball Other [facility] [employer] Other 07-05-2023 11:00-0400 Body weight 75.66 kg Uma Ball Other [facility] [employer] Other 07-05-2023 11:00-0400 Diastolic blood pressure 68 mm[Hg] Uma Ball Other [facility] [employer] Other 07-05-2023 11:00-0400 Respiratory rate 12 /min Uma Ball Other [facility] [employer] Other 07-05-2023 11:00-0400 Systolic blood pressure 148 mm[Hg] Uma Ball Other [facility] [employer] Other 05-17-2023 08:48-0400 Blood Pressure Location Cristela WINTER [facility] 05-17-2023 08:48-0400 Diastolic blood pressure 69 mm[Hg] Cristela WINTER [facility] 05-17-2023 08:48-0400 Heart rate 65 /min Cristela WINTER [facility] 05-17-2023 08:48-0400 Respiratory rate 16 /min Cristela WINTER [facility] 05-17-2023 08:48-0400 Systolic blood pressure 106 mm[Hg] Cristela WINTER [facility] 04-30-2023 11:30-0400 Body height 157.48 cm Uma Ball Other [facility] [employer] Other 04-30-2023 11:30-0400 Body mass index (BMI) [Ratio] 31.16 kg/m2 Uma Ball Other [facility] Other 04-30-2023 11:30-0400 Body weight 77.29 kg Uma Ball Other [employer] Other 04-30-2023 11:30-0400 Diastolic blood pressure 66 mm[Hg] Uma Ball Other [employer] Other 04-30-2023 11:30-0400 Respiratory rate 12 /min Uma Ball Other [facility] Other 04-30-2023 11:30-0400 Systolic blood pressure 132 mm[Hg] Uma Ball Other [employer] Other 01-06-2023 11:30-0400 Body height 157.48 cm Uma Ball Other [facility] Other 01-06-2023 11:30-0400 Body mass index (BMI) [Ratio] 31.46 kg/m2 Uma Ball Other [facility] Other 01-06-2023 11:30-0400 Body weight 78.02 kg Uma Ball Other [facility] Other 01-06-2023 11:30-0400 Diastolic blood pressure 73 mm[Hg] Uma Ball Other [employer] Other 01-06-2023 11:30-0400 SaO2% (BldA) [Mass fraction] 96 % Uma Ball Other [facility] Other 01-06-2023 11:30-0400 Systolic blood pressure 130 mm[Hg] Uma Ball Other [facility] Other 05-04-2022 12:33-0400 Blood Pressure Location Cristela WINTER [facility] 05-04-2022 12:33-0400 Diastolic blood pressure 69 mm[Hg] Cristela WINTER [facility] 05-04-2022 12:33-0400 Heart rate 68 /min [facility] 05-04-2022 12:33-0400 Respiratory rate 16 /min Cristela WINTER [facility] 05-04-2022 12:33-0400 Systolic blood pressure 134 mm[Hg] Cristela WINTER [facility] 11-03-2021 16:00-0500 Body height 157.48 cm Vinh Leighann Other [employer] Other 11-03-2021 16:00-0500 Body mass index (BMI) [Ratio] 25.79 kg/m2 [employer] Other [employer] Other 11-03-2021 16:00-0500 Body weight 63.96 kg Vinh Leighann Other [employer] Other Encounters Encounter Date Encounter Type Care Provider Facility Start: 06-22-2025 End: 06-22-2025 Orders Only Mara Bradford [employer] Work Phone: [facility] Comment on above: Melanoma of scalp (P rimary Dx) Start: 06-18-2025 ambulatory [facility] Start: 06-18-2025 Encounter for preprocedural cardiovascular examination [facility] Start: 06-13-2025 End: 06-15-2025 Telephone encounter Duglas Walsh MD, PhD Work Phone: [facility] Comment on above: Advice Only Start: 06-10-2025 End: 06-18-2025 Evaluation and management of inpatient Ludwig Hawkins MD Work Phone: [email or web address] Comment on above: Failure to thrive in adult Start: 06-09-2025 End: 06-10-2025 Emergency department patient visit Felix Sweeney MD Work Phone: [facility] Start: 05-24-2025 ambulatory [facility] Facility: [facility] Start: 05-22-2025 ambulatory RENEE [facility] Start: 05-21-2025 End: 05-21-2025 Office outpatient visit 40 minutes Duglas Walsh MD, PhD Work Phone: [facility] Comment on above: Melanoma of scalp (P rimary Dx); Encounter for hydration prior to CT scan Start: 05-21-2025 End: 05-21-2025 Clinical Support Encounter Duglas Walsh MD, PhD Work Phone: [facility] Comment on above: Melanoma of scalp (P rimary Dx) Start: 05-18-2025 End: 05-18-2025 ambulatory Cristela WINTER Facility:[facility] Start: 05-18-2025 End: 05-18-2025 Patient encounter procedure Cristela WINTER [facility] Start: 05-16-2025 ambulatory MORE CRAIG [facility] Start: 05-11-2025 End: 05-11-2025 Patient encounter procedure Chiqui Navarro RN [facility] Comment on above: Melanoma of scalp (P rimary Dx) Start: 05-11-2025 End: 05-11-2025 ambulatory Chiqui Navarro RN [facility] Start: 05-11-2025 End: 05-11-2025 Subsequent hospital visit by physician Duglas Walsh MD, PhD Work Phone: [facility] at [facility] Comment on above: Arrived Start: 05-10-2025 End: 05-11-2025 Patient encounter procedure Chiqui Navarro RN [facility] Start: 05-10-2025 End: 05-10-2025 Office outpatient new 60 minutes Duglas Walsh MD, PhD Work Phone: [facility] Comment on above: Melanoma of scalp (P rimary Dx); Metastatic melanoma; Rheumatoid arthritis, involving unspecified site, unspecified whether rheumatoid factor present; Other restrictive cardiomyopathy Start: 05-10-2025 End: 05-10-2025 Clinical Support Encounter Duglas Walsh MD, PhD Work Phone: [facility] 1 Comment on above: Malignant melanoma o f upper back Start: 05-10-2025 End: 05-11-2025 ambulatory Chiqui Navarro RN [facility] Start: 05-01-2025 End: 05-01-2025 Telephone encounter Duglas Walsh MD, PhD Work Phone: [facility] Comment on above: Medical Records Start: 05-01-2025 ambulatory [facility] Start: 04-30-2025 End: 04-30-2025 ambulatory [facility] Start: 04-24-2025 End: 04-24-2025 ambulatory [facility] Start: 04-19-2025 Registered Recurring Adilene Collins MD -[facility] Work Phone: Start: 04-19-2025 End: 04-19-2025 ambulatory Uma De Paz DO Work Phone: [facility] Work Phone: Start: 04-19-2025 End: 04-19-2025 Patient encounter procedure Adilene Collins MD -[facility] Work Phone: Start: 04-19-2025 ambulatory DUGLAS Monsivais [facility] Start: 04-18-2025 End: 04-18-2025 External Result Encounter Adilene Weinberg MD Work Phone: [facility] External Department Unsolicited Start: 04-18-2025 End: 04-18-2025 External Result Encounter Adilene Weinberg MD Work Phone: [facility] External Department Unsolicited Start: 04-17-2025 End: 04-17-2025 Office outpatient new 45 minutes Duglas Busby MD Work Phone: [facility] Comment on above: Melanoma of back (Mu lti) (Primary Dx) Start: 04-17-2025 End: 04-17-2025 ambulatory DUGLAS BUSBY [facility] Start: 04-04-2025 End: 04-04-2025 External Result Encounter Adilene Weibnerg MD Work Phone: [facility] External Department Unsolicited Start: 04-04-2025 End: 04-04-2025 External Result Encounter Adilene Weinberg MD Work Phone: [facility] External Department Unsolicited Start: 04-04-2025 End: 04-04-2025 Patient encounter procedure Maite Wong M[employer]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 Work Phone: Start: 03-28-2025 Non-patient / Non-visit Dylon mendoza MD -[facility] Work Phone: Start: 03-21-2025 End: 03-21-2025 Patient encounter procedure Uma De Paz DO -[facility] Work Phone: Start: 03-20-2025 ambulatory RENEE [facility] Start: 03-14-2025 End: 03-14-2025 [facility] Start: 03-09-2025 Non-patient / Non-visit Dylon mendoza MD -[facility] Work Phone: Start: 03-01-2025 End: 03-01-2025 [facility] Start: 02-20-2025 ambulatory RENEE [facility] Start: 01-26-2025 Non-patient / Non-visit Uma Espitia l DO -[facility] Work Phone: Start: 01-24-2025 End: 01-24-2025 [facility] Start: 01-23-2025 End: 01-23-2025 ambulatory Uma Ball DO Work Phone: [facility] Work Phone: Start: 01-23-2025 End: 01-23-2025 Patient encounter procedure Uma Ball DO Work Phone: [facility] Work Phone: Start: 01-22-2025 Non-patient / Non-visit Darin in Ball DO Work Phone: [facility] Work Phone: Start: 01-16-2025 End: 01-16-2025 Patient encounter procedure Uma Ball DO Work Phone: [facility] Work Phone: Start: 01-12-2025 [facility] Start: 01-10-2025 Registered Recurring Uma Ball DO Work Phone: [facility] Work Phone: Start: 01-10-2025 End: 01-10-2025 ambulatory Uma Ball DO Work Phone: [facility] Work Phone: Start: 01-10-2025 End: 01-10-2025 Patient encounter procedure Uma Ball DO Work Phone: [facility] Work Phone: Start: 01-05-2025 End: 01-05-2025 ambulatory Uma Ball DO Work Phone: [facility] Work Phone: Start: 01-05-2025 End: 01-05-2025 Patient encounter procedure Uma Ball DO Work Phone: [facility] Work Phone: Start: 01-02-2025 End: 01-02-2025 External Result Encounter Adilene Weinberg MD Work Phone: [facility] External Department Unsolicited Start: 01-02-2025 End: 01-02-2025 External Result Encounter Adilene Weinberg MD Work Phone: [facility] External Department Unsolicited Start: 01-02-2025 Registered Recurring Uma Ball DO Work Phone: [facility] Work Phone: Start: 12-25-2024 ambulatory [facility] Start: 12-15-2024 Non-patient / Non-visit Benjam in Ball DO Work Phone: [facility] Work Phone: Start: 11-30-2024 End: 11-30-2024 [facility] Start: 11-24-2024 ambulatory [facility] Start: 11-20-2024 End: 11-20-2024 ambulatory Uma Ball DO Work Phone: [facility] Work Phone: Start: 11-20-2024 End: 11-20-2024 Patient encounter procedure Uma Ball DO Work Phone: [facility] Work Phone: Start: 10-31-2024 End: 10-31-2024 ambulatory [facility] Start: 10-30-2024 End: 10-30-2024 Patient encounter procedure Uma Ball DO Work Phone: [facility] [address] Work Phone: Start: 10-30-2024 End: 10-30-2024 ambulatory Uma Ball DO Work Phone: [facility] Work Phone: Start: 10-05-2024 Registered Recurring Uma Ball DO Work Phone: [facility] Work Phone: Start: 10-05-2024 End: 10-05-2024 ambulatory Uma Ball DO Work Phone: [facility] Work Phone: Start: 10-05-2024 End: 10-05-2024 Patient encounter procedure Uma Ball DO Work Phone: [facility] Work Phone: Start: 10-05-2024 ambulatory [facility] Start: 10-02-2024 End: 10-02-2024 External Result Encounter Adilene Weinberg MD Work Phone: [facility] External Department Unsolicited Start: 10-02-2024 End: 10-02-2024 External Result Encounter Adilene Weinberg MD Work Phone: [facility] External Department Unsolicited Start: 10-02-2024 End: 10-02-2024 Patient encounter procedure Uma Ball DO Work Phone: [facility] [place] Work Phone: Start: 10-02-2024 End: 10-02-2024 ambulatory Adilene Weinberg Facility:[facility] Start: 09-29-2024 ambulatory [facility] Start: 09-08-2024 ambulatory [facility] Start: 09-07-2024 ambulatory [facility] Start: 08-28-2024 ambulatory [facility] Start: 08-22-2024 ambulatory [facility] Start: 08-16-2024 ambulatory [facility] Start: 08-09-2024 Non-patient / Non-visit Benjam in Ball DO Work Phone: [facility] Work Phone: Start: 08-08-2024 End: 08-08-2024 ambulatory DO Uma Ball Work Phone: [facility] Work Phone: Start: 08-08-2024 End: 08-08-2024 Patient encounter procedure DO Uma Ball Work Phone: [facility] Work Phone: Start: 2024 End: 2024 Office outpatient visit 15 minutes Elkin Holly MD Work Phone: 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) Start: 2024 End: [facility] Start: 08-02-2024 ambulatory [facility] Start: 07-20-2024 End: 07-20-2024 ambulatory DO Uma Ball Work Phone: [facility] Work Phone: Start: 07-20-2024 End: 07-20-2024 Patient encounter procedure DO Uma Ball Work Phone: [facility] Work Phone: Start: 07-18-2024 Patient encounter procedure DO Uma Ball Work Phone: [facility] Start: 07-13-2024 ambulatory [facility] Start: 07-06-2024 Registered Recurring DO Benjam in Ball Work Phone: [facility] Work Phone: Start: 07-06-2024 End: 07-06-2024 ambulatory DO Uma Ball Work Phone: [facility] Work Phone: Start: 07-06-2024 End: 07-06-2024 Patient encounter procedure DO Uma Ball Work Phone: [facility] Work Phone: Start: 07-04-2024 End: 07-04-2024 Patient encounter procedure DO Uma Ball Work Phone: [facility] [address] Work Phone: Start: 07-04-2024 End: 07-04-2024 ambulatory DO Uma Ball Work Phone: [facility] Work Phone: Start: 06-30-2024 End: 07-03-2024 External Result Encounter Adilene Weinberg MD Work Phone: [facility] External Department Unsolicited Start: 06-30-2024 End: 07-03-2024 External Result Encounter Adilene Weinberg MD Work Phone: [facility] External Department Unsolicited Start: 06-30-2024 Registered Recurring DO Benjam in Ball Work Phone: [facility] Work Phone: Start: 06-21-2024 Registered Recurring DO Benjam in Ball Work Phone: [facility] Work Phone: Start: 06-21-2024 End: 06-21-2024 ambulatory DO Uma De Paz Work Phone: [facility] Work Phone: Start: 06-21-2024 End: 06-21-2024 Patient encounter procedure DO Uma De Paz Work Phone: [facility] Work Phone: Start: 06-12-2024 End: 06-12-2024 External Result Encounter Adilene Weinberg MD Work Phone: [facility] External Department Unsolicited Start: 06-12-2024 End: 06-12-2024 External Result Encounter Adilene Weinberg MD Work Phone: [facility] External Department Unsolicited Start: 06-07-2024 Non-patient / Non-visit DO Alexi De Paz Work Phone: [facility] Work Phone: Start: 05-22-2024 End: 05-22-2024 ambulatory Cristela WINTER Facility[facility] Start: 05-22-2024 End: 05-22-2024 Patient encounter procedure Cristela R WINTER [facility] Start: 05-10-2024 Non-patient / Non-visit DO Alexi De Paz Work Phone: [facility] Work Phone: Start: 05-01-2024 End: 05-01-2024 Patient encounter procedure Caryl Ley MD Work Phone: Ophthalmology Comment on above: 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); Myogenic ptosis of bilateral eyelids Start: 04-25-2024 End: 04-25-2024 ambulatory DO Uma De Paz Work Phone: [facility] Work Phone: Start: 04-25-2024 End: 04-25-2024 Patient encounter procedure DO Uma De Paz Work Phone: [facility] Work Phone: Start: 04-20-2024 Non-patient / Non-visit DO Alexi De Paz Work Phone: [facility] Work Phone: Start: 03-16-2024 End: 03-16-2024 ambulatory DO Uma Ball Work Phone: [facility] Work Phone: Start: 03-16-2024 End: 03-16-2024 Patient encounter procedure DO Uma Ball Work Phone: [facility] Work Phone: Start: 03-16-2024 Registered Recurring DO Darin in Ball Work Phone: [facility] Work Phone: Start: 02-16-2024 End: 02-16-2024 ambulatory DEBBIE GORDON Not Available Start: 01-19-2024 End: 01-19-2024 ambulatory DO Uma De Paz Work Phone: [facility] Work Phone: Start: 01-19-2024 End: 01-19-2024 Patient encounter procedure DO Uma De Paz Work Phone: [facility] Work Phone: Start: 01-17-2024 End: 01-17-2024 Initial inpatient consult new/estab pt 55 min Debbie Alfaro MD Work Phone: [facility] Comment on above: Brow ptosis, right ( Primary Dx); Dermatochalasis of right upper eyelid Start: 01-17-2024 End: 01-17-2024 Office outpatient visit 15 minutes Elkin Holly MD Work Phone: [facility] Comment on above: 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 Work Phone: Start: 12-27-2023 End: 12-27-2023 Patient encounter procedure DO Uma De Paz Work Phone: [facility] [address] Work Phone: Start: 12-17-2023 End: 12-17-2023 ambulatory DO Uma De Paz Work Phone: [facility] Work Phone: Start: 12-17-2023 End: 12-17-2023 Patient encounter procedure DO Uma De Paz Work Phone: [facility] Work Phone: Start: 12-17-2023 Registered Recurring DO Benjam in Ball Work Phone: [facility] Work Phone: Start: 12-10-2023 End: 12-10-2023 Patient encounter procedure DO Uma Ball Work Phone: [facility] Work Phone: Start: 11-24-2023 Registered Recurring DO Benjam in Ball Work Phone: [facility] Work Phone: Start: 11-24-2023 End: 11-24-2023 ambulatory DO Uma Ball Work Phone: [facility] Work Phone: Start: 11-24-2023 End: 11-24-2023 Patient encounter procedure DO Uma Ball Work Phone: [facility] Work Phone: Start: 11-19-2023 End: 11-19-2023 ambulatory DO Uma Ball Work Phone: [facility] Work Phone: Start: 11-19-2023 End: 11-19-2023 Patient encounter procedure DO Uma Ball Work Phone: [facility] Work Phone: Start: 11-08-2023 End: 11-08-2023 Postop follow up visit related to original px Elkin Holly MD Work Phone: [facility] Comment on above: Malignant melanoma o f forehead (CMS/HCC) Start: 10-28-2023 End: 10-28-2023 ambulatory ELKIN HOLLY [facility] Start: 10-28-2023 End: 10-28-2023 Subsequent hospital visit by physician Elkin Holly MD Work Phone: [facility] Comment on above: 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); Post-op pain Start: 10-28-2023 End: 10-28-2023 Subsequent hospital visit by physician Shasha Plascencia 2 [facility] Comment on above: Malignant melanoma o f forehead (CMS/HCC) Start: 10-19-2023 End: 10-19-2023 ambulatory Uma De Paz Other [facility] Other Start: 10-19-2023 Encounter for other preprocedural examination Uma De Paz [facility] Start: 10-19-2023 Office outpatient vi sit 25 minutes Uma De Paz [facility] Start: 10-19-2023 End: 10-19-2023 Patient encounter procedure DO Uma De Paz Work Phone: [facility] Work Phone: Start: 10-08-2023 End: 10-08-2023 Office outpatient new 45 minutes Elkin Holly MD Work Phone: [facility] Comment on above: Malignant melanoma o f forehead (CMS/HCC) Start: 07-19-2023 End: 07-19-2023 ambulatory DO Uma De Paz Work Phone: [facility] Work Phone: Start: 07-19-2023 End: 07-19-2023 Patient encounter procedure DO Uma De Paz Work Phone: [facility] [address] Work Phone: Start: 07-13-2023 End: 07-13-2023 ambulatory Uma De Paz Other [facility] Other Start: 07-13-2023 Telephone encounter Uma De Paz FP [facility] Start: 07-05-2023 End: 07-05-2023 ambulatory Uma De Paz Other [facility] Other Start: 07-05-2023 Patient encounter procedure Uma De Paz [facility] Start: 05-31-2023 End: 05-31-2023 ambulatory Uma De Paz Other [facility] Other Start: 05-31-2023 Nursing evaluation o f patient and report Uma Zandra [facility] Zandra [facility] Start: 05-17-2023 End: 05-17-2023 Patient encounter procedure Cristela Carbajal MOY [facility] Start: 04-30-2023 End: 04-30-2023 ambulatory Uma De Paz Other [facility] Other Start: 04-30-2023 Office outpatient vi sit 15 minutes Uma De Paz [facility] Z[facility] Start: 03-30-2023 End: 03-30-2023 ambulatory DO Uma De Paz Work Phone: [facility] Work Phone: Start: 03-30-2023 End: 03-30-2023 Departed Referred DO Uma De Paz Work Phone: [facility] [place] Work Phone: Start: 03-23-2023 End: 03-23-2023 ambulatory DO Uma De Paz Work Phone: [facility] Work Phone: Start: 03-23-2023 End: 03-23-2023 Patient encounter procedure DO Uma De Paz Work Phone: [facility] [address] Work Phone: Start: 02-01-2023 End: 03-03-2023 ambulatory HANSEN Stephon VALERIO Facility:[facility] Start: 01-22-2023 Office outpatient vi sit 15 minutes Uma De Paz [facility] Start: 01-22-2023 End: 01-22-[address] UMA DE PAZ [facility] Other Start: 01-21-2023 End: 01-21-2023 ambulatory Uma Zandra Other [facility] Other Start: 01-21-2023 Telephone encounter Uma DODGE [facility] Start: 01-06-2023 End: 01-06-2023 ambulatory Uma De Paz Other [facility] Other Start: 01-06-2023 Office outpatient vi sit 25 minutes [facility] Start: 01-04-2023 End: 01-29-[address] UMA DE PAZ Facility:[facility] Start: 12-28-2022 End: 12-28-2022 ambulatory Uma De Paz Other [facility] Other Start: 12-28-2022 Telephone encounter Uma DODGE [facility] Start: 12-02-2022 End: 01-01-[address] UMA DE PAZ Facility:[facility] Start: 11-19-2022 End: 11-19-2022 ambulatory DO Uma De Paz Work Phone: [facility] Work Phone: Start: 11-19-2022 End: 11-19-2022 Patient encounter procedure DO Uma Zandra Work Phone: [facility] [address] Work Phone: Start: 11-05-2022 End: 11-06-2022 ambulatory RENEE JUDGE [facility] Other Start: 11-05-2022 Telephone encounter [facility] Start: 11-04-2022 End: 12-02-[address] UMA DE APZ Facility:[facility] Start: 10-05-2022 End: 11-04-[address] UMA DE PAZ Facility:[facility] Start: 10-02-2022 Encounter for preprocedural cardiovascular examination RENEE JUDGE [facility] Start: 09-29-2022 End: 09-30-2022 ambulatory RENEE JUDGE Facility:[facility] Start: 09-29-2022 End: 09-30-2022 Encounter for preprocedural cardiovascular examination RENEE JUDGE Facility:[facility] Start: 09-03-2022 End: 10-04-[address] UMA DE PAZ Facility:[facility] Start: 08-05-2022 End: 08-06-[address] UMA DE PAZ Facility:[facility] Start: 2022 End: 09-02-[address] UMA DE PAZ Facility:[facility] Start: 07-20-2022 End: 07-20-2022 ambulatory DO Uma De Paz Work Phone: [facility] Work Phone: Start: 07-20-2022 End: 07-20-2022 Patient encounter procedure DO Uma De Paz Work Phone: [facility] [address] Start: 07-06-2022 End: 08-03-2022 ambulatory SHAIKH Stephon LUO Facility:[facility] Start: 06-04-2022 End: 07-04-2022 ambulatory SHAIKH Stephon LUO Facility:[facility] Start: 05-07-2022 End: 05-07-2022 ambulatory DEBBIE GORDON Facility:[facility] Start: 05-04-2022 End: 05-04-2022 Patient encounter procedure Cristela WINTER [facility] Start: 05-04-2022 End: 06-03-2022 ambulatory SHAIKH Stephon LUO Facility:[facility] Start: 04-20-2022 End: 04-21-2022 ambulatory RENEE JUDGE Facility:[facility] Start: 04-16-2022 Adult health examination Cezar De Paz Other [facility] Other Start: 04-16-2022 End: 04-16-2022 ambulatory DEBBIE GORDON Facility:[facility] Start: 04-07-2022 End: 04-08-[address] CRISTELA WINTER . Facility:[facility] Start: 04-03-2022 End: 05-01-2022 ambulatory SHAIKH Stephon LUO Facility:[facility] Start: 11-03-2021 End: 11-03-2021 ambulatory Vinh Lawton Other [facility] Other Start: 11-03-2021 Postop follow up vis it related to original px Vinh Lawton [facility] Start: 10-10-2021 End: 10-10-2021 ambulatory Vinh Lawton Other [facility] Other Start: 10-10-2021 FQ visit new patient Vinh Lawton [facility] Start: 06-20-2021 End: 08-03-2021 [facility] Facility[facility] Start: 04-07-2019 Notes/Results Only Other Other NOTE S/RESULTS Start: 04-07-2019 End: 04-07-2019 Patient encounter procedure Other Other [facility] Start: 03-15-2019 Notes/Results Only Other Other NOTE S/RESULTS Start: 03-15-2019 End: 03-15-2019 Patient encounter procedure Other Other [facility] Start: 03-02-2019 Notes/Results Only Other Other NOTE S/RESULTS Start: 03-02-2019 End: 03-02-2019 Patient encounter procedure Other Other [facility] Start: 02-24-2019 Notes/Results Only Other Other NOTE S/RESULTS Start: 02-24-2019 End: 02-24-2019 Patient encounter procedure Other Other [facility] Start: 02-08-2019 Notes/Results Only Other Other NOTE S/RESULTS Start: 02-08-2019 End: 02-08-2019 Patient encounter procedure Other Other [facility] Start: 12-16-2018 Notes/Results Only Other Other NOTE S/RESULTS Start: 12-16-2018 End: 12-16-2018 Patient encounter procedure Other Other [facility] Start: 09-29-2018 Notes/Results Only Other Other NOTE S/RESULTS Start: 09-29-2018 End: 09-29-2018 Patient encounter procedure Other Other [facility] Procedures Date Procedure Procedure Detail Performing Clinician Start: 06-18-2025 Assay of magnesium Donna jose Hurtado PA-C Work Phone: Start: 06-18-2025 CBC AND ELECTRONIC DIFF Natasha Hurtado PA-C Work Phone: Start: 06-18-2025 Complete blood count with white cell differential, automated Natasha CHAUC Work Phone: Start: 06-17-2025 Ct head/brain w/o co ntrast material Zackaryra Foy Abner SKIDDER-TRACK WORKER Work Phone: Start: 06-17-2025 Assay of magnesium Donna Collins Bryant PA-C Work Phone: Start: 06-17-2025 CBC AND ELECTRONIC DIFF Kaur M Bryant PA-C Work Phone: Start: 06-17-2025 Complete blood count with white cell differential, automated Kaur M Bryant PA-C Work Phone: Start: 06-16-2025 Assay of magnesium Donna jose Karina Bryant PA-C Work Phone: Start: 06-16-2025 CBC AND ELECTRONIC DIFF Kaur M Bryant PA-C Work Phone: Start: 06-16-2025 Complete blood count with white cell differential, automated Kaur M Bryant PA-C Work Phone: Start: 06-15-2025 Assay of magnesium Donna Collins Bryant PA-C Work Phone: Start: 06-15-2025 CBC AND ELECTRONIC DIFF Kaur M Bryant PA-C Work Phone: Start: 06-15-2025 Complete blood count with white cell differential, automated Kaur M Bryant PA-C Work Phone: Start: 06-14-2025 Assay of magnesium Donna jose Karina Bryant PA-C Work Phone: Start: 06-14-2025 CBC AND ELECTRONIC DIFF Kaur M Bryant PA-C Work Phone: Start: 06-14-2025 Complete blood count with white cell differential, automated Kaur M Bryant PA-C Work Phone: Start: 06-13-2025 Radiologic exam swal low function contrast study Cris Rosa PA-C Work Phone: Start: 06-13-2025 SPEECH MODIFIED MALINA UM SWALLOW Cris Rosa PA-C Work Phone: Start: 06-13-2025 Assay of magnesium Donna Collins Bryant PA-C Work Phone: Start: 06-13-2025 CBC AND ELECTRONIC DIFF Natasha Collins Bryant PA-C Work Phone: Start: 06-13-2025 Complete blood count with white cell differential, automated Natasha Collins Bryant PA-C Work Phone: Start: 06-12-2025 End: 06-12-2025 Potassium serum plasma/whole blood Cris Rosa PA-C Work Phone: Start: 06-12-2025 Assay of magnesium Donna jose Karina Bryant PA-C Work Phone: Start: 06-12-2025 CBC AND ELECTRONIC DIFF Natasha Collins Bryant PA-C Work Phone: Start: 06-12-2025 Complete blood count with white cell differential, automated Natasha Collins Bryant PA-C Work Phone: Start: 06-11-2025 Assay of magnesium Donna jose Collins Bryant PA-C Work Phone: Start: 06-11-2025 CBC AND ELECTRONIC DIFF Natasha Collins Bryant PA-C Work Phone: Start: 06-11-2025 Complete blood count with white cell differential, automated Natasha Collins Bryant PA-C Work Phone: Start: 06-10-2025 TROPONIN 1 HOUR Natasha Collins Bryant PA-C Work Phone: Start: 06-10-2025 HIGH SENSITIVITY TRO PONIN I X2 Natasha Collins Bryant PA-C Work Phone: Start: 06-10-2025 TROPONIN I INITIAL Donna jose Hurtado PA-C Work Phone: Start: 06-10-2025 Prothrombin time Tereso Taylor Mayuri PA-C Work Phone: Start: 06-10-2025 Assay of magnesium Ashl charles Taylor Marlonmarivelart [employer] WORK[employer] Work Phone: Start: 06-10-2025 CBC AND ELECTRONIC DIFF Siria N Marlonkhart [employer] WORK[employer] Work Phone: Start: 06-10-2025 Complete blood count with white cell differential, automated Siria N Marlonkhart [employer] WORK[employer] Work Phone: Start: 06-09-2025 Ct angiography chest w/contrast/noncontrast Bruna CARVALHO-C Work Phone: Start: 06-09-2025 Assay of troponin quantitative Bruna CARVALHO-C Work Phone: Start: 06-09-2025 EXTRA MICRO Felix Sweeney MD Work Phone: Start: 06-09-2025 URINALYSIS REFLEX TO CULTURE Felix Sweeney MD Work Phone: Start: 06-09-2025 Urnls dip stick/tabl et reagent auto microscopy Felix Sweeney MD Work Phone: Start: 06-09-2025 Radiologic exam ches t single view Bruna CARVALHO-C Work Phone: Start: 06-09-2025 Bilirubin direct Bruna CARVALHO-C Work Phone: Start: 06-09-2025 CBC AND ELECTRONIC DIFF Eligio Wells MD Work Phone: Start: 06-09-2025 Complete blood count with white cell differential, automated Eligio Wells MD Work Phone: Start: 06-09-2025 GOLD TOP TUBE Eligio wick MD Work Phone: Start: 06-09-2025 LAVENDER TOP TUBE Eligio Wells MD Work Phone: Start: 06-09-2025 LT BLUE TOP TUBE Eligio Wells MD Work Phone: Start: 06-09-2025 MINT GREEN TOP TUBE Cherie Wells MD Work Phone: Start: 06-09-2025 RAINBOW DRAW Eligio robles MD Work Phone: Start: 05-21-2025 CBC AND ELECTRONIC DIFF Duglas Walsh MD, PhD Work Phone: Start: 05-21-2025 Complete blood count with white cell differential, automated Duglas Walsh MD, PhD Work Phone: Start: 05-21-2025 Comprehensive metabo lic panel Duglas Walsh MD, PhD Work Phone: Start: 05-11-2025 Ct head/brain w/o & w/contrast material Duglas Walsh MD, PhD Work Phone: Start: 05-10-2025 Hla class i typing h igh resolution one locus ea Oxana C Espinosa [employer] WORK[employer] Work Phone: Start: 05-10-2025 OTHER AP REQUEST Oxana Antoine Espinosa [employer] WORKER Work Phone: Start: 05-10-2025 TUMOR HOTSPOT MUTATI ON PANEL, REQUEST Oxana C Espinosa [employer] WORK[employer] Work Phone: Start: 05-10-2025 CBC AND ELECTRONIC DIFF Funmi Saldana Margareth [employer] WORKER Work Phone: Start: 05-10-2025 Complete blood count with white cell differential, automated Funmi Zuluaga [employer] WORK[employer] Work Phone: Start: 05-10-2025 Comprehensive metabo lic panel Funmi Zuluaga [employer] WORK[employer] Work Phone: Start: 04-18-2025 Positron emission to mography with computed tomography Uma De Paz DO Work Phone: Start: 04-18-2025 GLUCOSE POCT GLUCOMETERS Adilene Weinberg MD Work Phone: Start: 04-04-2025 C-reactive protein Adilene Weinberg MD Work Phone: Start: 04-04-2025 Comprehensive metabo lic panel Adilene Weinberg MD Work Phone: Start: 01-02-2025 Complete blood count with white cell differential, automated Adilene Weinberg MD Work Phone: Start: 01-02-2025 Comprehensive metabo lic panel Adilene Weinberg MD Work Phone: Start: 01-02-2025 Computed tomography of abdomen and pelvis with contrast Uma Ball DO Work Phone: Start: 01-02-2025 CT of head with contrast Uma Ball DO Work Phone: Start: 01-02-2025 CT of soft tissues o f neck with contrast Uma Ball DO Work Phone: Start: 01-02-2025 CT of thorax with contrast Uma Ball DO Work Phone: Start: 10-02-2024 Complete blood count with white cell differential, automated Adilene Weinberg MD Work Phone: Start: 10-02-2024 Comprehensive metabo lic panel Adilene Weinberg MD Work Phone: Start: 10-02-2024 Ultrasonography of limb Uma Ball DO Work Phone: Start: 2024 Follow-up visit Follow-up ELKIN HOLLY Start: 06-30-2024 Positron emission to mography with computed tomography DO Uma Ball Work Phone: Start: 06-30-2024 GLUCOSE POCT GLUCOMETERS Adilene Weinberg MD Work Phone: Start: 06-12-2024 Complete blood count with white cell differential, automated Adilene Weinberg MD Work Phone: Start: 06-12-2024 Comprehensive metabo lic panel Adilene Weinberg MD Work Phone: Start: 06-12-2024 Computed tomography of abdomen and pelvis with contrast DO Uma Zayo Work Phone: Start: 06-12-2024 CT of head with contrast DO [employer] Work Phone: Start: 06-12-2024 CT of soft tissues o f neck with contrast DO Uma Zayo Work Phone: Start: 06-12-2024 CT of thorax with contrast DO Uma Zayo Work Phone: Start: 03-14-2024 Ultrasonography of limb DO [employer] Work Phone: Start: 11-29-2023 CT of head with contrast DO [employer] Work Phone: Start: 11-19-2023 Positron emission to mography with computed tomography DO [employer] Work Phone: Start: 10-28-2023 DERMPATH LAB- DERMATOPATHOLOGY ELKIN HOLLY Start: 10-28-2023 DISCHARGE PATIENT ELKIN HOLLY Start: 10-28-2023 Lymphatics & lymph n odes imaging Elkin Holly MD Work Phone: Start: 04-07-[address] YEIMI WINTER . Comment on above: Performed By: #### P SAD #### [facility] [address] [place] [address] Dr. Robb Martin Start: 04-07-2019 Electrocardiogram Other Other Start: 04-07-2019 IMPLANT RECORD (OUTSIDE) Other Other Start: 03-15-2019 OUTSIDE PROCEDURES Othe r Other Start: 03-02-2019 Echocardiography Other Other Start: 02-24-2019 OUTSIDE PROCEDURES Othe r Other Start: 02-08-2019 Electrocardiogram Other Other Start: 12-16-2018 OUTSIDE PROCEDURES Othe r Other Start: 09-29-2018 ULTRASOUND (OUTSIDE) Ot her Other Start: 12-23-2015 Screening for malign ant neoplasm of colon Uma Zayo Other Start: 08-27-2014 Cystoscopy Cristela ZUNIGA Start: 05-04-2012 Implantation of card iac pacemaker Cristela WINTER Start: 10-09-2008 Brachytherapy Cristela CARO Start: 08-08-2008 Transrectal biopsy o f prostate using ultrasound guidance Cristela WINTER Start: 11-22-2007 Laser ablation of prostate Cristela WINTER Start: 10-25-2007 Cystoscopy Cristela ZUNIGA Start: 10-25-2007 Urodynamic studies Mathew miguelmorgan WINTER Start: 09-20-2007 Transrectal biopsy o f prostate using ultrasound guidance Cristela WINTER Coronary artery bypa ss grafts x 4 Cristela WINTER Extraction of cataract Rosendadelta cornelia MOY Procedure on back Cristela ALEK HILLLoi Plan of Treatment Date Care Activity Detail Author Start: 03-14-2027 Diabetes Screening Diabetes Screening [facility] Start: 06-18-2026 Potassium [Moles/volume] in Serum or Plasma POTASSIUM [facility] Start: 05-21-2026 Potassium [Moles/volume] in Serum or Plasma POTASSIUM [facility] Start: 05-10-2026 Potassium [Moles/volume] in Serum or Plasma POTASSIUM [facility] Start: 10-01-2025 End: 10-01-2025 Clinical Support Encounter [facility] Start: 09-13-2025 End: 09-13-2025 ambulatory 09/13/2025 12:30 PM EST Infusion Visit [facility] [address] [facility] [address] [place] [address] [facility] Start: 09-13-2025 End: 09-13-2025 Clinical Support Encounter Clinical Lab [facility] Start: 09-03-2025 End: 09-03-2025 Clinical Support Encounter Clinical Lab [facility] Start: 08-16-2025 End: 08-16-2025 Clinical Support Encounter Clinical Lab [facility] Start: 08-06-2025 End: 08-06-2025 Clinical Support Encounter Clinical Lab [facility] Start: 07-19-2025 End: 07-19-2025 ambulatory 07/19/2025 12:30 PM EDT Infusion Visit [facility] [address] [place] [phone] [facility] Start: 07-19-2025 End: 07-19-2025 Clinical Support Encounter Clinical Lab [facility] 1 Start: 07-05-2025 End: 07-05-2025 ambulatory 07/05/2025 2:30 PM EDT Infusion Visit [facility] [address] [place] [address] [facility] Start: 07-05-2025 End: 07-05-2025 Clinical Support Encounter Clinical Lab [facility] Hobson 1 Start: 06-21-2025 End: 06-21-2025 Clinical Support Encounter Clinical Lab [facility] Hobson 1 Start: 06-04-2025 COVID-19 VACCINE ( season) COVID-19 VACCINE () [facility] Start: 06-04-[address] [facility] Start: 05-24-2025 End: 05-24-2025 Telemedicine consultation with patient 05/24/2025 8:40 AM EDT Telemedicine [facility] [address] [place] [phone] Wendy Desai MD [address] [place] [phone] [facility] Start: 05-21-2025 End: 05-21-2026 CT Abdomen and Pelvis W contrast IV CT ABDOMEN/PELVIS WITH CONTRAST Imaging Routine Melanoma of scalp Expected: 05/21/2025, Expires: 05/21/2026 [facility] Comment on above: Expected: 05/21/2025, Expires: Start: 05-21-2025 End: 05-21-2026 CT Chest W contrast IV CT CHEST WITH CONTRAST Imaging Routine Melanoma of scalp Expected: 05/21/2025, Expires: 05/21/2026 [facility] Comment on above: Expected: 05/21/2025, Expires: Start: 05-21-2025 End: 05-21-2026 CT Neck W contrast IV CT NECK WITH CONTRAST Imaging Routine Melanoma of scalp Expected: 05/21/2025, Expires: 05/21/2026 [facility] Comment on above: Expected: 05/21/2025, Expires: Start: 05-21-2025 End: 05-21-2025 Patient encounter procedure 05/21/2025 1:20 PM EDT Office Visit [facility] [address] [phone] Duglas Walsh MD, PhD [address] [phone] [facility] Start: 05-21-2025 End: 05-21-2025 Clinical Support Encounter Clinical Lab [facility] Hobson Yoshi Start: 05-11-2025 End: 05-11-2025 Patient encounter procedure 05/11/2025 8:15 AM EDT Appointment Imaging at [facility] [address] [phone] Duglas Walsh MD, PhD [address] [phone] Imaging at [facility] Start: 05-10-2025 End: 05-10-2025 Clinical Support Encounter Clinical Lab [facility] Hobson 1 Start: 05-07-2025 Subsequent hospital visit by physician 05/07/2025 Hospital Encounter [facility] [place] [address] [place] [address] [place] [address] [address] [place] [address] [facility] [place] Start: 04-19-2025 Patient referral [facility] Work Phone: Start: 07-24-2024 End: 07-24-2024 Patient encounter procedure 07/24/2024 3:30 PM EDT Office Visit [address] [place] [address] [place] [address] [address] [place] [address] [facility] Start: 06-04-2024 COVID-19 VACCINE ( season) COVID-19 VACCINE () [facility] Start: 06-04-2024 COVID-19 Vaccine ( season) COVID-19 Vaccine () [facility] Start: 06-04-2024 COVID-19 Vaccine () COVID-19 Vaccine () [facility] Start: 06-04-2024 Influenza vaccination Influenza Vaccine (#1) [facility] Start: 01-17-2024 End: 01-17-2024 Patient encounter procedure 01/17/2024 3:30 PM EDT Office Visit [address] [place] [address] [place] [address] [address] [place] [address] [facility] Start: 11-08-2023 End: 11-08-2024 PT Unspecified body region NM PET CT melanoma restaging Imaging Routine Malignant melanoma of forehead (CMS/HCC) Expected: 11/08/2023, Expires: 11/08/2024 [facility] Service Area Work Phone: Comment on above: Expected: 11/08/2023, Expires: Start: 10-28-2023 End: 10-28-2023 Admission to same day surgery center 10/28/2023 11:00 AM EST - 10/28/2023 2:35 PM EST Surgery [facility] [place] [id number] [place] [phone] [place] [address] [address] Department [place] [address] ( sln inj @ 7:00 am ) Excision Lesion Skin Head/Neck [36020 (CPT )] [facility] [place] Comment on above: ( sln inj @ 7:00 am ) Excision Lesion Sk in Head/Neck [43714 (CPT )] Start: 10-28-2023 End: 10-28-2023 Ct guidance needle placement Biopsy Lymph Node Head/Neck Malignant melanoma of forehead (CMS/HCC) 10/28/2023 11:00 AM EST [facility] Start: 10-28-2023 End: 10-28-2023 Dermal autograft f/s/n/h/f/g/m/d gt 1st 100 Excision Full Thickness Skin Graft [place] Malignant melanoma of forehead ([facility]/HCC) 10/28/2023 11:00 AM EST [facility] Start: 10-28-2023 End: 10-28-2023 Excision malignant lesion f/e/e/n/l >4.0 cm Excision Lesion Skin Head/Neck Malignant melanoma of forehead ([facility]/HCC) 10/28/2023 11:00 AM EST [facility] Start: 10-28-2023 Subsequent hospital visit by physician 10/28/2023 9:30 AM EST Hospital Encounter [facility] [place] [address] [place] [phone] [place] [address] [address] Department [place] [address] [facility] [place] Start: 10-28-2023 End: 10-28-2023 Patient encounter procedure 10/28/2023 7:00 AM EST Appointment [facility] [address] [place] [phone] [facility] Start: 10-08-2023 End: 10-08-2024 NM Lymphatic vessels Views W radionuclide intra lymphatic NM lymphoscintigram Imaging Routine Malignant melanoma of forehead (CMS/HCC) Expected: 10/08/2023, Expires: 10/08/2024 [facility] Work Phone: Comment on above: Expected: 10/08/2023, Expires: Start: 10-08-2023 End: 10-08-2024 Request for Pre-Admission Testing Visit Request for Pre-Admission Testing Visit Procedures Routine Malignant melanoma of forehead (CMS/HCC) Expected: 10/08/2023 (Approximate), Expires: 10/08/2024 [facility] Service Area Work Phone: Comment on above: Expected: 10/08/2023 (Approximate), Expi res: 10/08/2024 Start: 10-04-2023 Advance Directive Discussion Advance Directive Discussion [facility] Start: 06-04-2023 COVID-19 Vaccine ( season) COVID-19 Vaccine ( season) [facility] Start: 06-04-2023 Covid-19 Vaccine ( season) Covid-19 Vaccine ( season) [facility] Start: 06-04-2023 Influenza vaccination Influenza Vaccine (#1) [facility] Start: 09-30-2022 COVID-19 Vaccine (5 - Moderna series) COVID-19 Vaccine (5 - Moderna series) [facility] Start: 07-20-2022 [facility] Start: 10-04-2019 Pneumococcal vaccination [facility] Start: 10-04-2019 Pneumococcal Vaccine: 65+ Years (2 - PPSV23 or PCV20) Pneumococcal Vaccine: 65+ Years (2 - PPSV23 or PCV20) [facility] Start: 10-04-2019 Pneumococcal Vaccine: 65+ Years (2 of 2 - PPSV23 or PCV20) Pneumococcal Vaccine: 65+ Years (2 of 2 - PPSV23 or PCV20) [facility] Start: 10-04-2019 Pneumococcal Vaccine: 65+ Years (2 of 2 - PPSV23) Pneumococcal Vaccine: 65+ Years (2 of 2 - PPSV23) [facility] Start: 06-04-2019 Influenza vaccination INFLUENZA VACCINE (#1) [facility] Start: 06-17-2013 DTaP/Tdap/Td Vaccines (1 - Tdap) DTaP/Tdap/Td Vaccines (1 - Tdap) [facility] Start: 06-17-2013 Urine microalbumin profile DTaP,Tdap,Td Vaccine (1 - Tdap) [facility] Start: 2012 RSV High Risk: (Elderly (60+) or Population) (1 - 1-dose 75+ series) RSV High Risk: (Elderly (60+) or Population) (1 - 1-dose 75+ series) [facility] Start: 2012 RSV VACCINE (1 - 1-dose 75+ series) RSV VACCINE (1 - 1-dose 75+ series) [facility] Start: 2002 Pneumococcal vaccination PNEUMOCOCCAL VACCINE SERIES (1 of 2 - PCV13) [facility] Start: 1997 RSV Vaccine (1 - 1-dose 60+ series) RSV Vaccine (1 - 1-dose 60+ series) [facility] Start: 1987 Colonoscopy COLON CANCER SCREENING DISCUSSION [facility] Start: 1987 Pneumococcal vaccination PNEUMOCOCCAL VACCINE SERIES (1 of 1 - PCV) [facility] Start: 1987 Zoster vaccine hzv live for subcutaneous use ZOSTER (SHINGLES) VACCINE (1 of 2) [facility] Start: 1987 Zoster Vaccines (1 of 2) Zoster Vaccines (1 of 2) [facility] Start: 1982 Screening for malignant neoplasm of colon COLORECTAL CANCER SCREENING DISCUSSION [facility] Start: 1959 DTaP/Tdap/Td Vaccines (1 - Tdap) DTaP/Tdap/Td Vaccines (1 - Tdap) [facility] Start: 1956 Shingrix Vaccine (1 of 2) Shingrix Vaccine (1 of 2) [facility] Start: 1956 Third diphtheria, tetanus and acellular pertussis (DTaP) vaccination TDAP (ADULT) [facility] Start: 1955 Anxiety Screening Anxiety Screening [facility] Start: 1955 Depression Screening Depression Screening [facility] Start: 1955 Diabetes mellitus screening Diabetes Screening [facility] Start: 1955 Tetanus vaccination TETANUS [facility] Start: 02-01-1938 Examination of skin Derm Melanoma Skin Check [facility] Start: 1937 Creatinine measurement Creatinine Level [facility] Start: 1937 Echocardiography Echocardiogram [facility] Start: 1937 Lipid panel Lipid Panel [facility] Start: 1937 Medicare Annual Wellness Visit Medicare Annual Wellness Visit (AWV) [facility] Start: 1937 Potassium measurement Potassium Level [facility] Start: 1937 Skin Cancer Screening Skin Cancer Screening [facility] Start: 1937 Tetanus vaccination TETANUS [facility] CBC W Auto Different ial panel - Blood CBC auto differential Lab Routine 04/04/2025 12:[address] [facility] Work Phone: Comprehensive metabo lic 1999 panel - Serum or Plasma [facility] Comprehensive metabo lic 1999 panel - Serum or Plasma [facility] Comprehensive metabo lic 1999 panel - Serum or Plasma [facility] Comprehensive metabo lic 1999 panel - Serum or Plasma [facility] End: 10-28-2023 Continuous Pulse oximetry, In Phase 1 Continuous Pulse oximetry, In Phase 1 Respiratory Care Routine Continuous until discontinued starting 10/28/2023 [facility] Service Area Work Phone: Comment on above: Continuous until discontinued starting 0 10/28/2023 CT Abdomen and Pelvi s W contrast IV [facility] CT Abdomen and Pelvi s W contrast IV [facility] CT Chest W contrast IV [facility] CT Chest W contrast IV [facility] CT Head W contrast IV [facility] CT Head WO and W contrast IV [facility] CT Head WO and W contrast IV [facility] CT Neck W contrast IV [facility] CT Neck W contrast IV [facility] Dermatopathology- DE RM LAB [facility] Service Area Work Phone: Comment on above: Release Upon Ordering for 1 Occurrences starting 10/28/2023 End: 06-10-2025 Echocardiography ECHOCARDIOGRAM Echocardiography Urgent One Time for 1 Occurrences starting 06/10/2025 until 06/10/2025 [facility] Work Phone: Comment on above: One Time for 1 Occurrences starting 04/2025 until 06/10/2025 Excision tumor soft tis back/flank subq 3 cm/> EXCISION, LESION, BACK Melanoma of back (Multi) [facility] OR Fyxaniq-2-Sxhbdjwkx dehydrogenase [Enzymatic activity/mass] in Red Blood Cells [facility] Work Phone: Measurement of total hemoglobin concentration [facility] Work Phone: MR Abdomen WO and W contrast IV [facility] End: 10-28-2023 NM Spect/CT Localization add on Single Day [facility] Service Area Work Phone: Comment on above: Once for 1 Occurrences starting 10/28/19 24 until 10/28/2023 OTHER AP REQUEST OTHER AP REQUES T Lab STAT Melanoma of scalp Metastatic melanoma 05/10/2025 10:53 AM EDT [facility] Patient Education Nivolumab [facility] Work Phone: Patient referral [facility] Work Phone: Standard ECG ECG ECG Routine Melanoma of scalp Other restrictive cardiomyopathy 05/10/2025 11:58 AM EDT [facility] End: 06-09-2025 Standard ECG ECG ECG STAT One Time for 1 Occurrences starting 06/09/2025 until 06/09/2025 [facility] Comment on above: One Time for 1 Occurrences starting 03/2025 until 06/09/2025 End: 06-10-2025 Standard ECG ECG ECG STAT One Time for 1 Occurrences starting 06/10/2025 until 06/10/2025 [facility] Comment on above: One Time for 1 Occurrences starting 04/2025 until 06/10/2025 SURG PATH ADD ON (PA TH HAS SPECIMEN) SURG PATH ADD ON (PATH HAS SPECIMEN) Surg Path STAT Melanoma of scalp Metastatic melanoma 05/10/2025 10:53 AM EDT [facility] End: 06-12-2025 THYROID-STIMULATING IMMUNOGLOBULIN THYROID-STIMULATING IMMUNOGLOBULIN Lab Routine One Time for 1 Occurrences starting 06/12/2025 until 06/12/2025 [facility] Work Phone: Comment on above: One Time for 1 Occurrences starting 06/2025 until 06/12/2025 THYROID-STIMULATING IMMUNOGLOBULIN THYROID-STIMULATING IMMUNOGLOBULIN Lab Routine 06/12/2025 12:40 AM EDT [facility] TUMOR HOTSPOT MUTATI ON PANEL, REQUEST TUMOR HOTSPOT MUTATION PANEL, REQUEST Lab STAT Melanoma of scalp Metastatic melanoma 05/10/2025 10:53 AM EDT [facility] US Extremity [facility] US Extremity [facility] US Lower extremity v ein - left [facility] Immunizations Immunization Date Immunization Notes Care Provider Reji siu 07-20-2024 influenza, high dose seasonal, preservative-free DO Uma De Paz Work Phone: [facility] 07-20-2024 influenza virus vaccine, unspecified formulation Duglas Busby MD Work Phone: [facility] Work Phone: 08-12-2023 Prevnar 20 Uma Zandra Other [facility] 07-05-2023 influenza virus vaccine, unspecified formulation DO Uma De Paz Work Phone: [facility] 07-05-2023 influenza, high dose seasonal, preservative-free Uma De Paz Other [facility] [employer] Other 08-20-2022 influenza virus vaccine, split virus (incl. purified surface antigen) Uma De Paz Other [facility] [employer] Other 08-20-2022 influenza virus vaccine, unspecified formulation Elkin Holly MD Work Phone: [facility] 07-22-2021 influenza virus vaccine, split virus (incl. purified surface antigen) Uma De Paz Other [facility] [employer] Other 07-22-2021 influenza virus vaccine, unspecified formulation DO Uma De Paz Work Phone: [facility] 12-09-2020 SARS-CoV-2 (COVID-19 ) mRNA-2118 vaccine Cristela WINTER [facility] 07-09-2020 influenza virus vaccine, split virus (incl. purified surface antigen) Uma De Paz Other [facility] [employer] Other 07-09-2020 influenza virus vaccine, unspecified formulation DO Uma De Paz Work Phone: [facility] 07-05-2019 influenza virus vaccine, split virus (incl. purified surface antigen) Uma De Paz Other [facility] [employer] Other 07-05-2019 influenza virus vaccine, unspecified formulation DO Uma De Paz Work Phone: [facility] 06-30-2018 influenza virus vaccine, split virus (incl. purified surface antigen) Uma De Paz Other [facility] [employer] Other 06-30-2018 influenza virus vaccine, unspecified formulation DO Uma De Paz Work Phone: [facility] 06-29-2017 influenza virus vaccine, split virus (incl. purified surface antigen) Uma De Paz Other [facility] [employer] Other 06-29-2017 influenza virus vaccine, unspecified formulation DO Uma De Paz Work Phone: [facility] 06-22-2016 influenza virus vaccine, split virus (incl. purified surface antigen) Uma De Paz Other [facility] [employer] Other 06-22-2016 influenza virus vaccine, unspecified formulation DO Uma De Paz Work Phone: [facility] 07-19-2015 pneumococcal conjuga te vaccine, 13 valent Uma De Paz Other [facility] 07-16-2015 influenza virus vaccine, split virus (incl. purified surface antigen) Uma De Paz Other [facility] [employer] Other 07-16-2015 influenza virus vaccine, unspecified formulation DO Uma De Paz Work Phone: [facility] 06-16-2013 tetanus and diphther ia toxoids, adsorbed, preservative free, for adult use (5 Lf of tetanus toxoid and 2 Lf of diphtheria toxoid) Uma De Paz Other [facility] 04-06-2011 tetanus and diphther ia toxoids, adsorbed, preservative free, for adult use (5 Lf of tetanus toxoid and 2 Lf of diphtheria toxoid) Uma De Paz Other [facility] 04-03-2009 pneumococcal polysaccharide vaccine, 23 valent Uma De Paz Other [facility] Payers Date Payer Category Payer Private Health Insurance [facility] [id number] 2016 [facility] [id number] 2016 [facility] Shie ld Managed [facility] [id number]. [id number] 2016 Unknown [id number]. 1.13.647. 2.7.3.681795.315 2002 Managed Care (unspecified) MEDICARE SUPPLEMENT [id number] [id number] 2002 Medicare 1.2.840.261397. 1.13.647. [id number] 1959 Medicare [id number] 1959 Self-pay [id number] 1959 Unknown [id number] 1937 Unknown [id number] 2.16.840.1.489275.3.579. 2.647 1937 Unknown [id number] 2.16.840.1.848454.3.579. 2.593 1937 Unknown [id number] 2.16.840.1.430319.3.579. 2.593 1937 Unknown [id number] 2.16.840.1.394316.3.579. 2.593 1937 Unknown [id number] 2.16.840.1.815477.3.579. 2.593 1937 Unknown [id number] 2.16.840.1.398098.3.579. 2.593 1937 Unknown [id number] 2.16.840.1.160368.3.579. 2.593 1937 Unknown [id number] 2.16.840.1.102348.3.579. 2.593 1937 Unknown [id number] 2.16.840.1.346077.3.579. 2.593 1937 Unknown [id number] 2.16.840.1.122996.3.579. 2.593 1937 Unknown [id number] 2.16.840.1.216952.3.579. 2.593 1937 Unknown [id number] 2.16.840.1.224495.3.579. 2.593 1937 Unknown [id number] 2.16.840.1.585509.3.579. 2.593 1937 Unknown [id number] 2.16.840.1.587934.3.579. 2.593 1937 Unknown [id number] 2.16.840.1.846085.3.579. 2.593 1937 Unknown [id number] 2.16.840.1.237401.3.579. 2.593 1937 Unknown [id number] 2.16.840.1.168192.3.579. 2.593 1937 Unknown [id number] 2.16.840.1.289285.3.579. 2.593 1937 Unknown [id number] 2.16.840.1.631701.3.579. 2.593 1937 Unknown [id number] 2.16.840.1.873261.3.579. 2.1259 1937 Unknown [id number] 2.16.840.1.624688.3.579. 2.1244 1937 Unknown [id number] 2.16.840.1.180779.3.579. 2.1246 1937 Unknown [id number] 2.16.840.1.752818.3.579. 2.1245 1937 Unknown [id number] 2.16.840.1.937116.3.579. 2.1243 1937 Unknown [id number] 2.16.840.1.734091.3.579. 2.727 1937 Unknown [id number] 2.16.840.1.588627.3.579. 2.727 1937 Unknown [id number] 2.16.840.1.468712.3.579. 2.594 1937 Unknown [id number] 2.16.840.1.110242.3.579. 2.594 1937 Unknown [id number] 2.16.840.1.483809.3.579. 2.594 1937 Unknown [id number] 2.16.840.1.911561.3.579. 2.594 1937 Unknown [id number] 2.16.840.1.446321.3.579. 2.594 1937 Unknown [id number] 2.16.840.1.255974.3.579. 2.594 1937 Unknown [id number] 2.16.840.1.699520.3.579. 2.594 1937 Unknown [id number] 2.16.840.1.610127.3.579. 2.594 1937 Unknown [id number] 2.16.840.1.080168.3.579. 2.594 Unknown [id number] 2.16.840.1.246980.3.579. 2.593 Unknown [id number] 2.16.840.1.479462.3.579. 2.531 Unknown [id number] 2.16.840.1.405620.3.579. 2.531 Unknown [id number] 2.16.840.1.172944.3.579. 2.531 Unknown [id number] 2.16.840.1.810902.3.579. 2.531 Unknown [id number] 2.16.840.1.713490.3.579. 2.531 Social History Date Type Detail Facility Tobacco smoking status NHIS Unknown if ever smoked [facility] Start: 1935 Sex Assigned At Not on file [facility] Start: 10-08-2023 End: 05-24-2025 Sex Assigned At [facility] Start: 03-28-2020 End: 05-10-2025 Tobacco smoking status Never smoked tobacco (finding) [facility] Start: 1935 Sex Assigned At Male F [facility] Start: 10-08-2023 End: 05-10-2025 Tobacco use and exposure Smokeless tobacco non-user [facility] Work Phone: Start: 10-08-2023 End: 05-24-2025 History of Social function [facility] Work Phone: Start: 09-28-2023 End: 2024 Exposure to SARS-CoV-2 (event) Not sure [facility] Start: 10-28-2023 End: 04-17-2025 Alcohol intake Lifetime non-drinker (finding) [facility] Work Phone: Start: 09-21-2023 National Score (1-100), lower number is lower risk 80 [facility] Start: 11-06-2012 End: 10-05-2024 Sex Male (finding) [facility] Tobacco smoking status NHIS Tobacco smoking consumption unknown [facility] Start: 05-10-2025 End: 06-10-2025 Alcoholic beverage intake Ex-drinker (finding) [facility] Sexual Orientation [facility] How often to you hav e a drink containing alcohol? Never [facility] NEGATED: Highlighted rowStart: MAAME History of tobacco use Passive smoker [facility] Work Phone: Functional Status Date Assessment Result Facility 06-10-2025 Are you deaf, or do you have serious difficulty hearing Yes 06/10/2025 5:56 PM EDJaylyn Cardenas RN Yes [facility] 06-10-2025 Are you blind, or do you have serious difficulty seeing, even when wearing glasses No 06/10/2025 5:56 PM Jaylyn Whyte RN No [facility] 06-10-2025 Do you have serious difficulty walking or climbing stairs No 06/10/2025 5:56 PM Jaylyn Whyte, MARQUITA No [facility] 06-10-2025 Do you have difficul ty dressing or bathing Yes 06/10/2025 5:56 PM Jaylyn Whyte, MARQUITA Yes [facility] 06-10-2025 Because of a physica l, mental, or emotional condition, do you have difficulty doing errands alone such as visiting a physician's office or shopping No 06/10/2025 5:56 PM Jaylyn Whyte, MARQUITA No [facility] 06-10-2025 Total score [AUDIT-C] 0 06/10/20 25 9:34 AM EDT Toña Bill LISW [facility] 04-17-2025 Patient Health Quest ionnaire 2 item (PHQ-2) [Reported] [facility] Work Phone: 04-17-2025 [place] - suicide s everity rating scale screener - recent [C-SSRS] [facility] Work Phone: 05-22-2024 Functional Status N/A [facility] 05-17-2023 Functional Status N/A [facility] 05-04-2022 Functional Status N/A [facility] Mental Status Date Assessment Result Facility 06-10-2025 Because of a physica l, mental, or emotional condition, do you have serious difficulty concentrating, remembering, or making decisions No 06/10/2025 5:56 PM EDT Jaylyn Potts RN No [facility] Clinical Notes 10-10-2021 to 06-22-2025 Telephone Encounter - Lanie Hernandez RN - 06/22/2025 4:14 PM EDTTelephone Encounter - Lanie Hernandez RN - 06/22/2025 4:14 PM EDTTelephone Encounter - Jossy Mary - 06/22/2025 3:35 PM EDT Note Date & Type Note Facility 06-22-2025 Telephone encounter Note Called and left for MARQUITA Garcia that pt is scheduled for office visit on 07/05, the team would like pt to focus on recovery at this time, thyroid issues will be covered at RTC. Called Tricia and advised same. She reports that she just heard from the team, but she is happy I called. Tricia asks about infusion appt on 07/05, voices concern that pt may not be well enough to receive treatment. He is really still very weak and fatigued. Advised that the infusion appt was scheduled with RTC in the hopes that Sebastian will be recovered enough to get treatment, because it is next to impossible to add an infusion appt the day of. Tricia was relieved with this information, states that makes sense. [facility] 06-22-2025 Miscellaneous Notes Called and left VM for MARQUITA Garcia that pt is scheduled for office visit on 07/05, the team would like pt to focus on recovery at this time, thyroid issues will be covered at RTC. Called Tricia and advised same. She reports that she just heard from the team, but she is happy I called. Tricia asks about infusion appt on 07/05, voices concern that pt may not be well enough to receive treatment. He is really still very weak and fatigued. Advised that the infusion appt was scheduled with RTC in the hopes that Sebastian will be recovered enough to get treatment, because it is next to impossible to add an infusion appt the day of. Tricia was relieved with this information, states that makes sense. As Pt was recently discharged and has received one dose of opdulag he should be seen in office for assessment and labs. We can check his thyroid at that time and also discuss the plan moving forward. He is scheduled back on 07/05. Please have him focus on recovering right now and he can see Dr. Walsh as scheduled for return. Images from the original note were not included. Fax with lab results. Sent to apps, clinical team and medical records. Spoke with MARQUITA Garcia from patient's PCP office. She would like to know how we want to treat the patient's hyperthyroid. The PCP would like to do methimazole. Spoke with MILAN Jj and she reports that we do not usually treat hyperthyroid as the patient could fluctuate with each treatment. We will continue to monitor on our end. Reached back out to MARQUITA Garcia and stated this information. Dr. De Paz, PCP, was also present. He agrees to continue monitoring labs Radha asked if we would be seeing the patient sooner than 07/05 for a post discharge visit to discuss plan of care and check labs. She would like to know when we want the thyroid checked again. MY- when do we want the PCP to check thyroid labs again? Also, do we want to do a telehealth visit for post discharge visit to talk with patient and daughter about treatment going forward? Marquita Garcia at Pts PCP is calling to speak with clinic about pts lab results. Pts PCP wanted to know if they would like his PCP to start treatment right away. PCP will fax lab results to [phone] CB: [phone] option 4 Please call MARQUITA Garcia Patient's test case developer from the [facility] called in. His team wanted to move his 06/21 to the beginning of July. All of patient's four RTC and treatment appointments have been moved four weeks apart. Please advise if scans need moved. Pt is still admitted as of 06/18 @ 0845 AM Patient is still admitted as of 06/15 @0924 Patient is still admitted as of 06/14 @ 1109 Pt admitted to [facility] 06/10 on C19D from 06/09 ED visit at [facility]. Please see daughter's comments to [facility] of 06/13. Called to cancel pts appt on 06/21 due to Bump. Spoke with Tricia and pt is very weak and unable to get out of bed and has been admitted. Tricia also mentioned that she is not sure if pt will be able to come to his appt on 06/21 or what next steps look like since he may be going to an assisted living rehab, Tricia is afraid of what may happen if he is unable to complete tx if he will loose his brown. CB: [phone] documented in this encounter [facility] 06-22-2025 Telephone encounter Note As Pt was recently discharged and has received one dose of opdulag he should be seen in office for assessment and labs. We can check his thyroid at that time and also discuss the plan moving forward. He is scheduled back on 07/05. Please have him focus on recovering right now and he can see Dr. Walsh as scheduled for return. [facility] Work Phone: 06-22-2025 Telephone encounter Note Images from the original note were not included. [facility] 06-22-2025 Telephone encounter Note Fax with lab results. Sent to apps, clinical team and medical records. [facility] 06-22-2025 Telephone encounter Note Spoke with MARQUITA Garcia from patient's PCP office. She would like to know how we want to treat the patient's hyperthyroid. The PCP would like to do methimazole. Spoke with MILAN Jj and she reports that we do not usually treat hyperthyroid as the patient could fluctuate with each treatment. We will continue to monitor on our end. Reached back out to MARQUITA Garcia and stated this information. Dr. De Paz, PCP, was also present. He agrees to continue monitoring labs Radha asked if we would be seeing the patient sooner than 07/05 for a post discharge visit to discuss plan of care and check labs. She would like to know when we want the thyroid checked again. MY- when do we want the PCP to check thyroid labs again? Also, do we want to do a telehealth visit for post discharge visit to talk with patient and daughter about treatment going forward? [facility] 06-22-2025 Telephone encounter Note Marquita Garcia at Pts PCP is calling to speak with clinic about pts lab results. Pts PCP wanted to know if they would like his PCP to start treatment right away. PCP will fax lab results to [phone] CB: [phone] option 4 Please call MARQUITA Garcia [facility] 06-18-2025 Nurse Note Patient is being discharged to SNF via private vehicle. All discharge paperwork (AVS & prescriptions) reviewed with the patient; the patient denied questions/concerns. All personal belongings are with patient and daughter. Peripheral IV removed without complication per policy. Patient left unit via wheelchair without incident. [facility] 06-18-2025 Miscellaneous Notes Patient is being discharged to SNF via private vehicle. All discharge paperwork (AVS & prescriptions) reviewed with the patient; the patient denied questions/concerns. All personal belongings are with patient and daughter. Peripheral IV removed without complication per policy. Patient left unit via wheelchair without incident. Report called at this time to Coral at [place] to [facility]. Daughter will provide transport to facility. Problem: Adult Inpatient Plan of Care Goal: Plan of Care Review Outcome: Adequate for Discharge Goal: Patient-Specific Goal (Individualized) Outcome: Adequate for Discharge Goal: Absence of Hospital-Acquired Illness or Injury Outcome: Adequate for Discharge Goal: Optimal Comfort and Wellbeing Outcome: Adequate for Discharge Goal: Readiness for Transition of Care Outcome: Adequate for Discharge Problem: Oral Intake Inadequate Goal: Improved Oral Intake Outcome: Adequate for Discharge Patient was discussed in medical rounds. Will discharge today. See DC note form 06/15. BERKLEY Fair, RN, [facility] Problem: OT - ADLs Goal: Lower Body Dressing - Patient will complete lower body dressing tasks with modified independence using adaptive equipment/compensatory strategies as needed for improved ability to complete self-care activities. Outcome: Ongoing Problem: OT - Endurance Goal: Endurance Functional Mobility - Patient will complete distance needed for common household mobility with modified independence, LRD and no needed rest breaks for improved tolerance to safely complete I/ADL's Outcome: Ongoing Problem: PT - General Goals Goal: Supine <-> Sit Transfers - Patient will perform supine to/from sit transfers with independence and without use of hospital bed features in order to improve functional mobility and safety. Outcome: Ongoing Goal: Sit <-> Stand Transfers - Patient will perform sit to/from stand transfers with modified independence and least restrictive device in order to improve functional mobility and safety. Outcome: Ongoing Goal: Standing Endurance/Balance - Patient will perform standing balance tasks for 10 min with modified independence and least restrictive device while maintaining an RPE of less than 3/10 to improve endurance and safety with standing tasks. Outcome: Ongoing Goal: Ambulation - Patient will ambulate 250 feet with modified independence and least restrictive device to improve ability to safely navigate home and community. Outcome: Ongoing Problem: Adult Inpatient Plan of Care Goal: Plan of Care Review Outcome: Progressing Problem: Adult Inpatient Plan of Care Goal: Patient-Specific Goal (Individualized) Outcome: Progressing Problem: Adult Inpatient Plan of Care Goal: Absence of Hospital-Acquired Illness or Injury Outcome: Progressing Problem: Adult Inpatient Plan of Care Goal: Optimal Comfort and Wellbeing Outcome: Progressing Problem: Adult Inpatient Plan of Care Goal: Readiness for Transition of Care Outcome: Progressing Problem: Oral Intake Inadequate Goal: Improved Oral Intake Outcome: Progressing Problem: Dysphagia Goal: Bolus challenge - Patient will accept trials of pureed and/or solid trials, given fading cues for use of strategies to improve bolus control/timing of swallow initiation with no signs of aspiration for improved efficiency of po intake Outcome: Progressing Problem: Dysphagia Goal: IOPI - Patient will participate in initial IOPI pressure (kPA) assessment session to identify initial anterior and posterior strength measures to determine need for skllied intervention Outcome: Progressing Problem: Adult Inpatient Plan of Care Goal: Plan of Care Review Outcome: Progressing Goal: Patient-Specific Goal (Individualized) Outcome: Progressing Goal: Absence of Hospital-Acquired Illness or Injury Outcome: Progressing Goal: Optimal Comfort and Wellbeing Outcome: Progressing Goal: Readiness for Transition of Care Outcome: Progressing Problem: Oral Intake Inadequate Goal: Improved Oral Intake Outcome: Progressing Problem: PT - General Goals Goal: Supine <-> Sit Transfers - Patient will perform supine to/from sit transfers with independence and without use of hospital bed features in order to improve functional mobility and safety. Outcome: Progressing Goal: Sit <-> Stand Transfers - Patient will perform sit to/from stand transfers with modified independence and least restrictive device in order to improve functional mobility and safety. Outcome: Progressing Goal: Standing Endurance/Balance - Patient will perform standing balance tasks for 10 min with modified independence and least restrictive device while maintaining an RPE of less than 3/10 to improve endurance and safety with standing tasks. Outcome: Progressing Goal: Ambulation - Patient will ambulate 250 feet with modified independence and least restrictive device to improve ability to safely navigate home and community. Outcome: Progressing Goal: Stairs - Patient will ascend/descend 4-12 stairs with modified independence, without an assistive device, and single railing(s) to improve ability to safely navigate home and community. Outcome: Progressing Goal: Strength - Patient will adhere to understanding of exercise program. Outcome: Progressing Problem: OT - ADLs Goal: Lower Body Dressing - Patient will complete lower body dressing tasks with modified independence using adaptive equipment/compensatory strategies as needed for improved ability to complete self-care activities. Outcome: Progressing Goal: Toileting - Patient will complete toileting task with modified independence and adaptive equipment as needed for improved ability to safely complete self-care activities. Outcome: Progressing Goal: Bathing - Patient will perform full body bathing routine with modified independence while seated and standing for improved ability to complete self-care activities Outcome: Progressing Problem: OT - Transfers Goal: Transfers Toilet/ Bedside Commode - Patient will transfer to/from toilet/bedside commode with modified independence for improved ability to safely complete ADLs. Outcome: Progressing Problem: OT - Balance Goal: Balance - Standing - Patient will perform 10+ minutes of functional task in standing with modified independence and good balance to promote safety and improved balance required for self-care activities. Outcome: Progressing Problem: OT - Endurance Goal: Endurance Functional Mobility - Patient will complete distance needed for common household mobility with modified independence, LRD and no needed rest breaks for improved tolerance to safely complete I/ADL's Outcome: Progressing Problem: OT - Strength/ROM Goal: Strength/ROM ADL Participation - Patient will participate in UE exercise program with independence to prevent deconditioning while in hospital and to max UE ROM/Coordination/strength for ADLs. Outcome: Progressing Problem: Dysphagia Goal: Bolus challenge - Patient will accept trials of pureed and/or solid trials, given fading cues for use of strategies to improve bolus control/timing of swallow initiation with no signs of aspiration for improved efficiency of po intake Outcome: Progressing Goal: IOPI - Patient will participate in initial IOPI pressure (kPA) assessment session to identify initial anterior and posterior strength measures to determine need for skllied intervention Outcome: Progressing Patient reassessed - no changes from previously documented nursing assessment unless otherwise noted in the flowsheet. RN will continue to monitor. Sebastian has been resting in bed and up in the chair today. Family was at bedside most of the day. He had a bowel movement this morning. He has had no complaints of pain or discomfort! Problem: Adult Inpatient Plan of Care Goal: Plan of Care Review Outcome: Progressing Goal: Patient-Specific Goal (Individualized) Outcome: Progressing Goal: Absence of Hospital-Acquired Illness or Injury Outcome: Progressing Goal: Optimal Comfort and Wellbeing Outcome: Progressing Goal: Readiness for Transition of Care Outcome: Progressing Problem: Oral Intake Inadequate Goal: Improved Oral Intake Outcome: Progressing Sebastian reassessed - no changes from previously documented nursing assessment unless otherwise noted in the flowsheet. Sebastian denied any pain this shift. Q2 turns as tolerated. Call light within reach, bed exit alarm on. Summary: Advance Directives Per chart review, patient does not have advance directives on file. SW inquired about interest in completing health care power of furniture rental consultant and/or living will paperwork; however, patient reports that they have already completed Healthcare Power of Marketing Director (HCPOA) and Living Will. Document(s) were provided to SW on this date. SW reviewed the document(s) with patient and they confirmed document(s) are current and reflective of their wishes. SW scanned into [employer]. SW returned the original copy back to patient. The following individual(s) are named as decision maker(s) in the patient's HCPOA: Primary Agent: spouse, Maria Teresa Hannon and /or First Alternate Agent: daughter, Tricia Sapp, (ph: [phone]) Second Alternate Agent: NA, (ph: ) JOJO Andrade, TERI-Loi Wire Technician, Cancer Medicine (CMG) [facility] For Evening (4:30pm-8am) and Weekend SW needs please call [phone] or page [phone] 06/15/25 1241 Referral Information Arrived From home or self-care Final Discharge Planning Discharge Disposition [facility] Facility Services at Discharge [facility];Physical Therapy;Occupational Therapy Community Agency Name(s) For Handoff See sw note Name For Handoff See sw note Phone For Handoff see sw note Fax For Handoff see sw note Additional Community Agency Name(s) no Plan Plan Pt to return to [place], [place] and daughter will transport him to appointments Patient/Family In Agreement With Plan yes Transport Request Mode of Transfer Private Vehicle [facility] Inpatient PCRM Discharge Note Patient discussed in medical rounds for discharge to SNF. PCRM met with the patient/family to discuss final discharge plan. Services for Discharge [facility] in [place], [place] SNF- for PT/OT/SNF Consults with Final Discharge Recommendations PT/OT- SNF RD- RD consult: Diet: Heart healthy but liberalized to regular diet to provide additional menu items and promote PO intake Will send oral supplements, Apple Ensure Clear x1/d + Magic Cup x1/d to aid in calorie and protein intake during admission Agree with trial of appetite stimulant (Remeron) Geriatrics consult for further fatigue workup: Start Mirtazapine 7.5 mg nightly (lower than initial 15 mg for improved tolerability and appetite stimulation) - TELEGRAPHIC TYPEWRITER INSTALLER consult: On swallow eval, liquids seemed ok, but he is coughing with food (puree and solid). Since he's malnourished and without respiratory concerns, he's ok to stay on his current diet but recommend MBS MBS (06/13): cleared for regular solids with thin liquid. However, has oral dysphagia and etiology is unclear at this time. Question if malnutrition/failure to thrive is contributing to increased weakness and reduced oral efficiency. Also question if possible cranial nerve involvement presumed reduced sensation. Swallow safety is preserved; oral swallow efficiency is impaired. Recommended Rehab Activities: IOPI or Tongueometer, bolus challenge swallows Lines/Tubes/Drains/Wounds/Supplie s PIV- to be removed prior to discharge Medications No barriers anticipated in obtaining discharge medications. No prior authorizations anticipated. Reconciliation of medications to be completed by the medical team. Durable Medical Equipment SNF to provide Choice Was Patient Choice Provided: Yes Transportation Transportation will be provided by [facility]. Education Discharge education provided by the medical team and updated in the After Visit Summary. Bedside nurse to call/fax AVS, DEDRA, and Dc summary Follow Up(s) Any follow up requested by the medical team arranged. Appointments in the After Visit Summary. 06/21/2025 10:00 AM MARQUITA HOBSON BLOOD DRAW, [facility] Clinical Lab [place] [address] Arrive at: Arrive to [address] Registration[address] Appointments are taken in order of appointment time, not by arrival time CORRELL 06/21/2025 11:20 AM Duglas Walsh [facility] Arrive at: Arrive to [facility] Floor Registration CORRELL 06/21/2025 1:00 PM MMMP 9 SP D, [facility] Arrive at: Arrive to [facility] Floor Registration CORRELL 07/19/2025 10:45 AM MARQUITA HOBSON BLOOD DRAW, [facility] Clinical Lab [facility] 1 Arrive at: Arrive to [address] Registration. Appointments are taken in order of appointment time, not by arrival time CORRELL 07/19/2025 11:00 AM Oxana Espinosa [facility] Arrive at: Arrive to [facility] Floor Registration CORRELL 07/19/2025 12:30 PM MMMP 11 SP D, [facility] Arrive at: Arrive to [facility] Floor Registration CORRELL 08/16/2025 11:00 AM MARQUITA HOBSON BLOOD DRAW, [facility] Clinical Lab [facility] 1 Arrive at: Arrive to [address] Registration. Appointments are taken in order of appointment time, not by arrival time CORRELL ACO Patient: No Was Ambulatory PCRM added to the Care Team? No- Handoff criteria not met Was a handoff made to an Ambulatory PCRM? no The PCRM has updated the patient's nurse regarding the final discharge plan. Risk of Readmission: 9.7 Category Reference: Low: 0% - 5% Medium - Low: 5.1% - 10% Medium - High: 10.1% - 16% High: 16.1% - 100% Readmission Risk Interventions Documented: Yes No other discharge needs have been identified at this time. This plan was developed in collaboration with the patient and caregiver/preferred decision maker. Patient and family are in agreement with final discharge plan. Please refer to AVS and medical record for additional information. Patient instructed to call with questions. PCRM will continue to follow with medical team for any additional discharge planning needs. BERKLEY Fair, RN, PCR If any changes to this individualized plan of care during evening and weekend hours and assistance is needed, please page the automation mechanic PCRM at [phone]. Discharge Planning for Facilities Review Options for discharge have been discussed with patient and family. Patient and family agree the post hospital care needs will be better met at a SNF upon discharge. Inpatient Admit Order (ALOC) Date or Dates of 3 Day Qualifying Stay: 06/10/2025 Background Information/ Hospital Overview: Patient is a 89 y.o. 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 . Patient requiring ongoing medical management, rehabilitation, education in a post-acute care facility due to the following care needs: [facility] Needs: Pain management Patient care training and assistance with an exercise program (ROM, pulmonary, or cardiac) Patient care training and assistance for safe performance of ADL's Line / tube / drain type / Line / tube / drain care N/A Wound Care N/a Oxygen requirements / airway Room Air Isolation Type (if needed) N/A Diet (or anticipated diet if currently NPO) Regular Lab work: type and frequency N/A Transfusion support needs (if needed) N/A Chemo and/or Radiation Plans after Discharge: No Chemo or Radiation at discharge Speciality Medications: (specific chemotherapy if needed / IV antibiotics) N/A Follow up: 06/21/2025 10:00 AM MARQUITA HOBSON BLOOD DRAW, [facility] Clinical Lab [place] 1 Arrive at: Arrive to [address] Floor Registration. Appointments are taken in order of appointment time, not by arrival time CORRELL 06/21/2025 11:20 AM Duglas Walsh [facility] Arrive at: Arrive to [facility] First Floor Registration CORRELL 06/21/2025 1:00 PM MMMP 9 SP D, [facility] Arrive at: Arrive to [facility] First Floor Registration CORRELL 07/19/2025 10:45 AM MARQUITA HOBSON BLOOD DRAW, [facility] Clinical Lab [place] 1 Arrive at: Arrive to [address] Floor Registration. Appointments are taken in order of appointment time, not by arrival time CORRELL 07/19/2025 11:00 AM Oxana Espinosa [facility] Arrive at: Arrive to [facility] First Floor Registration CORRELL 07/19/2025 12:30 PM MMMP 11 SP D, [facility] Arrive at: Arrive to [facility] First Floor Registration CORRELL 08/16/2025 11:00 AM MARQUITA HOBSON BLOOD DRAW, [facility] Clinical Lab [place] 1 Arrive at: Arrive to [address] Floor Registration. Appointments are taken in order of appointment time, not by arrival time CORRELL 08/16/2025 11:20 AM Duglas Walsh [facility] Arrive at: Arrive to [facility] Floor Registration Rehabilitation Needs: Ongoing assessment of rehabilitation needs and potential Supervision of therapeutic exercises or activities to ensure patient safety and treatment effectiveness Gait Evaluation and training 6-Clicks/AM-PAC Score: 14 Transportation Needs: No- daughter Tricia will take him to appointments Family Support / Prior Living Environment: Patient lives alone in a house and was independent prior to admission. Tricia, daughter, will be willing to work with the facility to obtain education if there are complex teaching services needed for the patient. Primary Diagnosis: Active Hospital Problems Diagnosis Failure to thrive in adult [R62.7] BERKLEY Fair, RN, PCRM Problem: PT - General Goals Goal: Supine <-> Sit Transfers - Patient will perform supine to/from sit transfers with independence and without use of hospital bed features in order to improve functional mobility and safety. Outcome: Ongoing Goal: Sit <-> Stand Transfers - Patient will perform sit to/from stand transfers with modified independence and least restrictive device in order to improve functional mobility and safety. Outcome: Ongoing Goal: Standing Endurance/Balance - Patient will perform standing balance tasks for 10 min with modified independence and least restrictive device while maintaining an RPE of less than 3/10 to improve endurance and safety with standing tasks. Outcome: Ongoing Goal: Ambulation - Patient will ambulate 250 feet with modified independence and least restrictive device to improve ability to safely navigate home and community. Outcome: Ongoing Goal: Strength - Patient will adhere to understanding of exercise program. Outcome: Ongoing Messaged Cancer Medicine Team G: Did a random bladder scan on pt, had been over 6 hrs since last void, bladder scan amount was 620 mls. Pt attempted to void and was able urinate 50 mls. Did a post void bladder scan amount was 570 mls. Straight cath ordered by guillaume for post void of 570 mls. Straight cath amount was 500 mls. Post straight cath bladder scan was 0 mls. Problem: Adult Inpatient Plan of Care Goal: Plan of Care Review Outcome: Progressing Goal: Patient-Specific Goal (Individualized) Outcome: Progressing Goal: Absence of Hospital-Acquired Illness or Injury Outcome: Progressing Goal: Optimal Comfort and Wellbeing Outcome: Progressing Goal: Readiness for Transition of Care Outcome: Progressing Problem: Oral Intake Inadequate Goal: Improved Oral Intake Outcome: Progressing Sebastian reassessed - no changes from previously documented nursing assessment unless otherwise noted in the flowsheet. Sebastian denied any pain this shift. Call light within reach, bed exit alarm on. This PCRM spoke with the patient s daughter, Tricia, regarding her father's upcoming medical appointments and potential discharge planning. Tricia confirmed that he has a scheduled appointment at the [facility] on 06/20. Tricia expressed that if her father requires rehabilitation, she would prefer placement at [facility] in [place], as he had previously stayed there and had a positive experience. She stated that once he improves, he would return to his own residence. Regarding ongoing treatment, Tricia shared that if her father begins immunotherapy, he will likely have frequent hospital visits. However, if he does not proceed with immunotherapy, his condition may deteriorate. Tricia remains uncertain about the next steps in her father's care and will continue to monitor his status closely. BERKLEY Fair, RN, PCRM Problem: Adult Inpatient Plan of Care Goal: Readiness for Transition of Care Outcome: Progressing Problem: Adult Inpatient Plan of Care Goal: Optimal Comfort and Wellbeing Outcome: Progressing Problem: Adult Inpatient Plan of Care Goal: Absence of Hospital-Acquired Illness or Injury Outcome: Progressing Problem: Adult Inpatient Plan of Care Goal: Patient-Specific Goal (Individualized) Outcome: Progressing Problem: Oral Intake Inadequate Goal: Improved Oral Intake Outcome: Progressing Problem: PT - General Goals Goal: Supine <-> Sit Transfers - Patient will perform supine to/from sit transfers with independence and without use of hospital bed features in order to improve functional mobility and safety. Outcome: Ongoing Goal: Sit <-> Stand Transfers - Patient will perform sit to/from stand transfers with modified independence and least restrictive device in order to improve functional mobility and safety. Outcome: Ongoing Goal: Standing Endurance/Balance - Patient will perform standing balance tasks for 10 min with modified independence and least restrictive device while maintaining an RPE of less than 3/10 to improve endurance and safety with standing tasks. Outcome: Ongoing Goal: Ambulation - Patient will ambulate 250 feet with modified independence and least restrictive device to improve ability to safely navigate home and community. Outcome: Ongoing Problem: Dysphagia Goal: Bolus challenge - Patient will accept trials of pureed and/or solid trials, given fading cues for use of strategies to improve bolus control/timing of swallow initiation with no signs of aspiration for improved efficiency of po intake Outcome: Ongoing Goal: IOPI - Patient will participate in initial IOPI pressure (kPA) assessment session to identify initial anterior and posterior strength measures to determine need for skllied intervention Outcome: Ongoing Problem: OT - ADLs Goal: Lower Body Dressing - Patient will complete lower body dressing tasks with modified independence using adaptive equipment/compensatory strategies as needed for improved ability to complete self-care activities. Outcome: Ongoing Problem: OT - Balance Goal: Balance - Standing - Patient will perform 10+ minutes of functional task in standing with modified independence and good balance to promote safety and improved balance required for self-care activities. Outcome: Ongoing Problem: OT - Endurance Goal: Endurance Functional Mobility - Patient will complete distance needed for common household mobility with modified independence, LRD and no needed rest breaks for improved tolerance to safely complete I/ADL's Outcome: Ongoing WOC/ET Nursing Consult Note: Pt consulted for what appears to be erythema/ abrasion. Wound appears superficial. Wash with soap and water leave open to air. Santiago of 17.Please re consult if additional needs arise. 06/13/25 0600 Plan Problem abrasion Current Plan no orders WOCT Visit Frequency PRN Last Date Seen 06/13/25 Endocrinology Plan of care note Sebastian Hannon is a 89 y.o. 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 Endocrinology consulted for concern for autoimmune thyroiditis. 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 He received his first dose on 05/21. He remains asymptomatic and denies diaphoresis, palpitations, anxiety or tremulousness. He had a CTPE on 06/09 however his thyroid function labs were drawn before the iodine contrast load, thus they should have not been impacted. In light of mild clinically disease and given the temporary character of the ICI driven thyroiditis, we will pursue monitoring for the moment and repeat of labs in a week. -Repeat Thyroid function labs:TSH and fT4 in 1 week -Follow TSI antibodies (ordered) Endocrinology will sign off. Please reach out with any questions or concerns Thank you for allowing us to participate in the care of Sebastian Hannon. Patient discussed with MD Trevor Castillo DO Fellow, Division of Endocrinology, Diabetes, and Metabolism [facility] [address] [place] [address] Problem: Oral Intake Inadequate Goal: Improved Oral Intake Outcome: Progressing Nutrition Recommendations and Plan of Care: 1. Diet: Heart healthy Consider liberalization of diet to provide additional menu items and promote PO intake 2. Will send oral supplements, Apple Ensure Clear x1/d + Magic Cup x1/d to aid in calorie and protein intake during admission 3. Agree with trial of appetite stimulant (Remeron) 4. PRN Zofran and/or Compazine 5. RD to follow and monitor PO intake, GI function, weight changes, labs, and skin integrity Problem: PT - General Goals Goal: Supine <-> Sit Transfers - Patient will perform supine to/from sit transfers with independence and without use of hospital bed features in order to improve functional mobility and safety. Outcome: Ongoing Goal: Sit <-> Stand Transfers - Patient will perform sit to/from stand transfers with modified independence and least restrictive device in order to improve functional mobility and safety. Outcome: Ongoing Goal: Standing Endurance/Balance - Patient will perform standing balance tasks for 10 min with modified independence and least restrictive device while maintaining an RPE of less than 3/10 to improve endurance and safety with standing tasks. Outcome: Ongoing Goal: Ambulation - Patient will ambulate 250 feet with modified independence and least restrictive device to improve ability to safely navigate home and community. Outcome: Ongoing Goal: Stairs - Patient will ascend/descend 4-12 stairs with modified independence, without an assistive device, and single railing(s) to improve ability to safely navigate home and community. Outcome: Ongoing Goal: Strength - Patient will adhere to understanding of exercise program. Outcome: Ongoing Problem: OT - ADLs Goal: Lower Body Dressing - Patient will complete lower body dressing tasks with modified independence using adaptive equipment/compensatory strategies as needed for improved ability to complete self-care activities. Outcome: Ongoing Goal: Toileting - Patient will complete toileting task with modified independence and adaptive equipment as needed for improved ability to safely complete self-care activities. Outcome: Ongoing Goal: Bathing - Patient will perform full body bathing routine with modified independence while seated and standing for improved ability to complete self-care activities Outcome: Ongoing Problem: OT - Transfers Goal: Transfers Toilet/ Bedside Commode - Patient will transfer to/from toilet/bedside commode with modified independence for improved ability to safely complete ADLs. Outcome: Ongoing Problem: OT - Balance Goal: Balance - Standing - Patient will perform 10+ minutes of functional task in standing with modified independence and good balance to promote safety and improved balance required for self-care activities. Outcome: Ongoing Problem: OT - Endurance Goal: Endurance Functional Mobility - Patient will complete distance needed for common household mobility with modified independence, LRD and no needed rest breaks for improved tolerance to safely complete I/ADL's Outcome: Ongoing Problem: OT - Strength/ROM Goal: Strength/ROM ADL Participation - Patient will participate in UE exercise program with independence to prevent deconditioning while in hospital and to max UE ROM/Coordination/strength for ADLs. Outcome: Ongoing 06/10/25 1620 Referral Information Arrived From home or self-care Readmission Information Was patient readmitted within 30 Days? 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 Requiring Assistance Are There Status Changes This Admission? Yes Changes Observed Since Admission? Physical Concerns With Patient Being Able To Care For Themselves At Discharge? Has Assistance (Friend, Family, Skilled Provider) Employment/Financial Employed? Retired Employment/Financial Concerns no Source Of Income pension/jail Financial Concerns none Insurance Medical Insurance Verified Yes Prescription Coverage Yes Pharmacy updated in [facility] Yes Initial Discharge Planning Home Care Services (MEDICAL PHYSICS TEACHER) No Home Therapies (MEDICAL PHYSICS TEACHER) None DME (MEDICAL PHYSICS TEACHER) Walker Patient Goal for Discharge Get better Expected Discharge Disposition HH Anticipated Services at Discharge [facility];Physical Therapy;Occupational Therapy;Outpatient follow up;DME Anticipated Changes Related to Illness inability to care for someone else Transportation Available family or friend will provide Assessment/Concerns to be Addressed Concerns To Be Addressed adjustment to diagnosis/illness concerns PCRM Initial Assessment Met with the patient and his daughter, Tricia, to complete the initial assessment. Explained role and function of PCRM in multidisciplinary team. Demographic information reviewed with patient/family and confirmed as correct. Reason for Admission: Per provider note, Sebastian Hannon is a 89 y.o. male with past medical history of melanoma on immunotherapy last 05/21/25, HF, afib with pacemaker, on coumadin, HLD comes in to the ED for nausea, decreased appetite, fatigue. Estimated length of stay: To be determined. Advance directives Patient does not have Advanced Directives on File. Lines/Drains/Tubes PIV Initial PCRM Discharge Planning Tricia reports that patient normally lives alone in his home in [place], [place]. Patient has been living with Tricia at [facility] [place] [address] while receiving cancer treatment. Tricia inquired about SNF vs HHC, discussed referral process for both. Waiting on PT/OT recommendations. Final plan will be determined closer to discharge, pending therapy and medical team recommendations. Patient/family verbalized understanding and agreement with the plan of care. Patient/family have no questions at this time. PCRM will continue to follow patient with multidisciplinary team for ongoing assessment of needs and for discharge planning. Oz GOODEN, MARQUITA Patient Care Radio Presenter IRP/Carlene [phone] (office) For evening and weekend discharge assistance, please page the on-call PCRM at [phone]. documented in this encounter [facility] 06-18-2025 Nurse Note Report called at this time to [facility] at [place] to [facility]. Daughter will provide transport to facility. [facility] 06-18-2025 Hospital course Narrative Images from the original note were not included. Discharge Summary Name: Sebastian Hannon Age: 89 y.o. Birthday: 1935 Admit Date: 06/10/2025 5:34 PM Discharge Date: 06/18/2025 Admission Information Admitting Physician: Ludwig Hawkins MD Discharge Information Discharge Physician: Dr. Day Problem List Active Hospital Problems Diagnosis Failure to thrive in adult Resolved Hospital Problems No resolved problems to display. Brief Summary of Hospital Course for Discharge Summary: I recently had the opportunity to care for Sebastian Hannon during their hospital stay at [facility]. As you may know Mr. Hannon is a 89 y.o. 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 The following describes their hospital course by problem list: ACUTE PROBLEMS FTT Poor PO Intake Nausea - He is currently undergoing immunotherapy for melanoma, with the first dose administered on 05/21/2025. Initially, he responded well to the treatment and was able to live independently. However, during a recent visit, it was observed that he had lost approximately 3 to 4 pounds and his appetite had significantly decreased. He has been experiencing some nausea. Reports generalized weakness and dyspnea on exertion, possibly related to fatigue, poor intake, and immunotherapy. 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 Since he's malnourished and without respiratory concerns, he's ok to stay on his current diet but recommend MBS MBS (06/13): cleared for regular solids with thin liquid. However, has oral dysphagia and etiology is unclear at this time. Question if malnutrition/failure to thrive is contributing to increased weakness and reduced oral efficiency. Also question if possible cranial nerve involvement presumed reduced sensation. Swallow safety is preserved; oral swallow efficiency is impaired. 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 He received his first dose on 05/21. He remains asymptomatic and denies diaphoresis, palpitations, anxiety or tremulousness. He had a CTPE on 06/09 however his thyroid function labs were drawn before the iodine contrast load, thus they should have not been impacted. - Endo consult: In light of mild clinically disease and given the temporary character of the ICI driven thyroiditis, we will pursue monitoring for the moment and repeat of labs in a week. Repeat Thyroid function labs: TSH (0.010), T4 (3.49) Follow TSI antibodies (ordered and pending) - Draw TSH with T4 and total T3 in 1 week (~on 06/25/2025). Will need Endo FU in 1-2 weeks - Continue to monitor for symptom development at SNF Hx of Systolic HF Demand ischemia (Elevated BPN/Troponin) in the setting of dehydration, CKD Hx Pulmonary Hypertension Hx CAD s/p cardiac bypass Hx Bioprosthetic mitral valve replacement Pt reports ELIZABETH and fatigue but currently on RA. Denies chest pain. - Trop trending up in ED 85>>94>>123. Peaked 06/10, no longer trending - BNP 4511 - Last Echo EF 35%. RVSP 69 mmHg on echocardiogram. - Cardiology consult: BNP level is elevated and troponin is slightly elevated, this seems more in line with his kidney disease and decreased intake rather than ACS or HF exacerbation. I do think that there is a long standing pulmonary hypertension component to his symptoms. A RHC in February showed elevated left sided pressures as well as elevated pulmonary pressures, supporting group 2 PH. He is on adequate diuretics and GDMT from this standpoint. Uncertain how the diagonal fistula would factor into his long-standing symptoms, but does not seem to be causing anginal symptoms Recommend holding Lasix until euvolemic. May need to re-assess his Lasix maintenance dose given his decreased appetite. Can restart with 40 mg Lasix PO daily (reduced from home dose of 60 mg) - Repeat echo (06/11): EF 45%, RVSP 65 mmHg Last echo showed similar RVSP so cards does not recommend pulm HTN evaluation inpatient - Cont amlodipine, losartan, aldactone, toprol xl, and lasix - Touched base with cards and they recommend resuming lasix at lower dose of 40 mg every other day given Cr remains stable and prefer him to be more dry given pulm HTN (resumed 06/13) - Needs pulm HTN FU OP; PCRM aware Deconditioning - PT/OT consult: rec home with [facility] originally - Now recommending SNF 06/13. Medically stable,waiting on SNF placement. Metastatic Melanoma - Follows with Dr. Walsh - Currently on immunotherapy with opdualag (last 05/21/25) - Dr. Walsh updated via email and request to push next clinic FU to after SNF discharge Quality Self-Check Complexity. Malnutrition - Severe Protein-Calorie Malnutrition (POA) (06/11/2025 12:36 PM) secondary to Acute Illness / Injury (06/11/2025 12:36 PM) - Reviewed and agree with registered nursing professor's recommendations. Wound Documentation Wound 06/11/25 1601 Distal;Right Calf (Active) Date First Assessed/Time First Assessed: (c) 06/11/25 (c) 1601 Wound Location Orientation: Distal;Right Location: Calf Any conditions listed below are present on admission unless otherwise specified. Metastatic Cancer, Location of Metastasis - see above for additional details Body mass index is 23 kg/m . RESOLVED PROBLEMS Hyponatremia - resolved - Na 134 on 06/12 - Urine lytes and osmol suggest 2/2 diuretic use - Initially held lasix as above - Held on IVF given PO intake improving 06/12 and hx HF - Daily chem Hx of Afib Supratherapeutic INR - resolved - On home Warfarin 5mg daily. Follows with OP warfarin clinic. - Change warfarin dose to 4mg daily. Please resume on 06/19 CHRONIC PROBLEMS RA - Cont home hydroxychloroquine - MedOnc referred patient to Dr. Desai for evaluation of RA management with immunotherapy - FU Dr. Desai 06/21 CKD Stage 2 - Baseline Cr appears ~ 1.3 . Stable on discharge day Dispo: Discharge to SNF. On discharge day, patient is breathing easy on RA and HD stable. Resume regular diet and acitivity as tolerated. Follow up with primary oncologist, Fuse Assembler, and warfarin clinic. Summary of last selected lab results and date obtained: Lab Results Component Value Date WBC 7.69 06/18/2025 HGB 8.0 (L) 06/18/2025 HCT 25.7 (L) 06/18/2025 PLATELET 252 06/18/2025 MCV 95.2 (H) 06/18/2025 Lab Results Component Value Date SODIUM 140 06/18/2025 POTASSIUM 3.9 06/18/2025 CHLORIDE 104 06/18/2025 CO2 23 06/18/2025 BUN 22 06/18/2025 CREATSERUM 1.08 06/18/2025 GLUCOSE 110 06/18/2025 Lab Results Component Value Date ALT 9 (L) 06/09/2025 AST 16 06/09/2025 ALKPHOS 94 06/09/2025 BILITOTAL 0.8 06/09/2025 BILIDIRECT 0.2 06/09/2025 BP 127/60 (BP Location: Right arm, BP Position: Sitting) Pulse 64 Temp 97.9 F (36.6 C) (Oral) Resp 20 Ht 1.778 m (5' 10 ) Wt 72.7 kg (160 lb 4.4 oz) SpO2 98% BMI 23.00 kg/m Smoking Status Never General: A&O to self, time, place, and situation. NAD. HEENT: EOMI, anicteric sclerae, conjunctivae & lids symmetrical. No signs of inflammation. Neck no rigidity. Not ALATNA. Respiratory: Clear to auscultation bilaterally, no crackles/rhonchi/wheezes, no increased WOB. On RA Cardiovascular: Afib, no murmurs, 1+ pitting edema BLE (L>R). Abdomen: Normoactive BS. Abdomen soft, nontender, nondistended. No palpable masses. Neurologic: CN II-XII grossly intact. No focal deficits. Speech coherent. Follows commands. Skin: Chronic brawny discoloration of BLE (L>R). Psychosocial: Affect appropriate Discharge Orders AMB REFERRAL TO SENIOR CARE FACILITY AMB REFERRAL TO ENDOCRINOLOGY DISCHARGE WARFARIN INSTRUCTIONS Current Outpatient Meds: Medication List for when you go home START taking these medications Morning Afternoon Evening Bedtime As Needed Acetaminophen 325 MG tablet Take 2 tablets by mouth every 6 hours as needed. Commonly known as: TYLENOL Last time this was given: 650 mg on June 14, 2025 11:41 AM 2 tablets mirtazapine 7.5 MG TABS Take 1 tablet by mouth at bedtime. Commonly known as: REMERON Last time this was given: 7.5 mg on June 17, 2025 8:39 PM 1 tablet Polyethylene glycol 17 g PACK packet Take 1 packet by mouth daily. Commonly known as: MIRALAX Last time this was given: 17 g on June 14, 2025 9:04 AM Start taking on: June 19, 2025 Wait until June 19, 2025 1 packet CHANGE how you take these medications Morning Afternoon Evening Bedtime As Needed Hydroxychloroquine 200 MG TABS Take 200mg once day on Wednesday, Wednesday, , and Wednesday Take 200mg twice day on Wednesday, Wednesday, and Wednesday Commonly known as: PLAQUENIL What changed: The quantity you have reported taking of this medication has changed How you take your medication has changed How often you have reported taking this medication has changed additional instructions Last time this was given: 200 mg on June 18, 2025 9:51 AM Take 200mg once day on Wednesday, Wednesday, , and Wednesday Take 200mg twice day on Wednesday, Wednesday, and Wednesday furOSEmide 40 MG TABS Take 1 tablet by mouth every other day. Commonly known as: LASIX What changed: The strength you have reported taking of this medication has changed The quantity you have reported taking of this medication has changed How often you have reported taking this medication has changed Last time this was given: 40 mg on June 17, 2025 12:00 PM Start taking on: June 19, 2025 Wait until June 19, 2025 warfarin 5 MG tablet Take 1 tablet by mouth every evening at 6 PM. Commonly known as: COUMADIN What changed: How often you have reported taking this medication has changed Last time this was given: 4 mg on June 17, 2025 5:01 PM Start taking on: June 19, 2025 Notes to patient: Please resume the warfarin on the evening of 06/19 Wait until June 19, 2025 1 tablet CONTINUE taking these medications Morning Afternoon Evening Bedtime As Needed Alfuzosin HCl 10 MG tab XL Take 1 tablet by mouth daily. 1 tablet Nikunj Allergy 180 MG TABS Take 1 tablet by mouth daily. Last time this was given: 180 mg on June 18, 2025 9:51 AM Generic drug: Fexofenadine 1 tablet amLODIPine 2.5 MG TABS Take 1 tablet by mouth daily. Commonly known as: NORVASC Last time this was given: 2.5 mg on June 18, 2025 9:51 AM 1 tablet Calcium 500-125 MG-UNIT TABS Take 1 tablet by mouth daily. Take 1 tablet by mouth daily. Finasteride 5 MG TABS Take 1 tablet by mouth daily every morning. Commonly known as: PROSCAR Last time this was given: 5 mg on June 18, 2025 9:51 AM 1 tablet Iron 325 (65 Fe) MG TABS Take 1 tablet by mouth daily. 1 tablet Losartan 50 MG TABS Take 1 tablet by mouth daily. Commonly known as: COZAAR Last time this was given: 50 mg on June 18, 2025 9:51 AM 1 tablet Metoprolol succinate 50 MG tablet XL Take 1.5 tablets by mouth 2 times daily. Commonly known as: TOPROL-XL Last time this was given: 75 mg on June 18, 2025 9:51 AM 1.5 tablets 1.5 tablets nitroGLYCERIN 0.[address] 1 tablet under tongue every 5 minutes as needed for Chest pain. max = 3 doses. If CP persists after 1st dose, call 911 Commonly known as: NITROSTAT 1 tablet OPDUALAG IV by Intravenous route. by Intravenous route. Spironolactone 25 MG TABS Take 1 tablet by mouth daily every morning. Commonly known as: ALDACTONE Last time this was given: 25 mg on June 18, 2025 9:51 AM 1 tablet VITAMIN B [address] 1,000 mcg under tongue daily. Place 1,000 mcg under tongue daily. vitamin D 4000 Units capsule Take 1 capsule by mouth every other day. Take 1 capsule by mouth every other day. STOP taking these medications Atorvastatin 40 MG TABS Commonly known as: LIPITOR Follow-up: [facility] [place] [id number] Upcoming Appointments (up to five)-Some appointments for Medical Center outpatient clinics or diagnostic testing locations are not displayed below Next 5 Appointments Provider Department Dept Phone 07/05/2025 12:45 PM MARQUITA HOBSON BLOOD DRAW, [facility] Clinical Lab Duane Hobson 1 Arrive at: Arrive to [address] Registration. Appointments are taken in order of appointment time, not by arrival time [phone] 07/05/2025 1:00 PM Duglas Walsh [facility] Arrive at: Arrive to [facility] Floor Registration [phone] 07/05/2025 2:30 PM MMBLAINE 11 DEYVI Walker, [facility] Arrive at: Arrive to [facility] Registration [phone] 08/06/2025 11:15 AM MARQUITA HOBSON BLOOD DRAW, [facility] Clinical Lab Duane Hobson 1 Arrive at: Arrive to [address] Registration. Appointments are taken in order of appointment time, not by arrival time [phone] 08/06/2025 11:40 AM Duglas Walsh [facility] Arrive at: Arrive to [facility] Floor Registration [phone] Displaying the next 5 appointments. This patient has additional appointments scheduled. Cosigned by Sebastian Day MD at 06/18/2025 8:36 PM EDT Associated attestation - Sebastian Day MD - 06/18/2025 8:36 PM EDT ATTENDING ATTESTATION: I have seen and examined Sebastian Hannon on June 18, 2025 and discussed all pertinent findings with the house staff team. I have personally reviewed all available clinical data related to today's encounter, including but not limited to laboratory studies, radiology images and reports, procedural reports, outside medical records, and EKG/telemetry tracings. I agree with the advanced practitioner's findings and have been fully involved in formulation of the assessment and plan. Sebastian Hannon is a 89 y.o. male with a past medical history of melanoma on immunotherapy (last 05/21/25), HF, afib with pacemaker (on coumadin), and HLD who presented to the hospital with nausea, decreased appetite, fatigue. 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 Endo consulted, monitor TFT and follow-up outpatient. PT/OT were consulted, [facility] 14, had trouble just getting out of bed and lives alone. The patient and his daughter understand discharging to a SNF will delay cancer treatment with the risk of disease progression however recognize a SNF is the safest option for him at discharge and the best chance to optimize his performance status with hope he may continue systemic therapy at some point in the future. See advanced provider's note for details. Sebastian Day MD Nurse [employer], Clinical Division of [facility] Medicine, Department of Internal Medicine The [facility] Total discharge time was 25 minutes. documented in this encounter [facility] 06-18-2025 History of Present illness Narrative Inpatient Cooler Room Worker/Spiritual Care Note Reason for Visit: Introduction Visited With: patient, Sebastian Hannon; Encounter/Assessment: Cooler Room Worker met with patient, Sebastian, to introduce self, assess needs and describe the role of spiritual care at [facility]. Discussion included exploration of how he is feeling today. Interventions: Built rapport and established a supportive relationship Provided emotional support through compassionate presence, active/empathetic listening, and normalization/validation of emotions. Facilitated sharing of experience and emotional expression Provided roman catholic items/literature Provided prayer, upon request Shared information about spiritual care services and sewing machine operator semiautomatic availability Outcomes: Patient expressed appreciation for visit and information about spiritual care services, and demonstrated that he is feeling ok and has support. Plan: No specific follow-up needed at this time Patient/family encouraged to request spiritual care as needed. Chaplains are available in-house 24 hours a day and 7 days a week. For urgent matters in [facility], please page [phone]; for the [facility], please page [phone]. If the request is not urgent, please enter a consult. Consults are responded to within 24 hours. Cooler Room Worker Argelia Lovelace, Gian, STELLA, BRITTNEY, BCC Senior Cooler Room WorkerDuane campbell , , 26/04 On-Call Pager Duane ([phone]) [facility], (Ana Luisa, Jason, Alex, B&S, Harman Lagos) 26/04 On-Call Pager: [phone] Duane 26/04 On-Call Pager: [phone] Flowsheet Documentation: 06/18/25 1500 Clinical Encounter Type Visited With Patient Visit Type Introduction Pastoral Time Spent 15 min Referral (Rounding) Christian Encounters Christian Needs Prayer Spiritual Assessment Emotional Observation Coping well Support Observation Some support Interventions Provided Active listening;Prayer;Supportive presence Facilitated Verbalization of feelings Test Case Developer Education Test Case Developer Service Available Yes Educated Patient Plan of Care Continue Visiting PRN Summary: Final SW Discharge Note Final SW Discharge Note Referred Level of Care: [facility] Facility Date/Time of Discharge: 06/18/2025 at 1530 hours Accepting Facility/Provider: [place] [address] Final Discharge Planning Discharge Disposition: [facility] Facility Services at Discharge: [facility], Occupational Therapy, Physical Therapy Community Agency Name(s) For Handoff: [place] [address] Name For Handoff: [address], Nurse for Sebastian Hannon Phone For Handoff: Fax For Handoff: , RN Please Call Report, Fax AVS, [place], [place] Summary Transportation: Family to provide transport Transport Request Mode of Transfer: Private Vehicle Discharge documentation complete and reflective of discharge plans: After Visit Summary (AVS) Continuity of Care ([place]) Hospital Exemption (HE) MARQUITA Moore was provided instructions to call report, fax AVS/[place]/discharge summary, and to send all required prescriptions and home medications with patient at discharge. Plan: (Retired/Read Only) Plan Patient/Family In Agreement With Plan: yes Floor RN, patient/family, appropriate team members, and [facility] Facility are aware of planned discharge. No additional questions or needs reported at this time. SW will remain available as needed. JOJO Andrade LISW-S Wire Technician, Cancer Medicine ([facility]) [facility] For Evening (4:30pm-8am) and Weekend SW needs please call [phone] or page [phone] Acute Occupational Therapy Treatment Prior Gross Functional Mobility: independent Current AM-PAC score(s): CURRENT AM-PAC Activity Raw Score: 16 Based on the above AM-PAC score(s), and OT clinical judgment, discharge destination recommendation is: [facility] Facility Barriers to discharge home: Patient needs assistance with functional mobility, Patient needs assistance with ADLs, Patient needs assistance with IADLs (see note below) Mobility equipment available at home: front-wheeled walker ADL equipment available at home: grab bars (by the toilet) Equipment recommendations for discharge: shower chair Equipment issued: none Current therapy frequency recommendation(s) in acute: 5 times a week Precautions and Weightbearing Status: OT Existing Precautions/Restrictions: fall Lines/Tubes/Drains (Rehab Status): No critical lines at this time Patient Safety Communication Prior to Visit: Nursing, Rehab team Subjective: Patient pleasant and agreeable to session with initial encouragement/education. Pain: General Pain Documentation (Adult, OB, Peds) Presence of Pain: denies pain/discomfort Presence of Pain Score (Auto-calculated): 0 Objective/Observation: Vitals/Vitals Responses to Treatment: VSS O2 Device: room air Cognition Overall Cognitive Status: Within Functional Limits Arousal/Alertness: Appropriate responses to stimuli Orientation Level: Oriented to person, Oriented to place, Oriented to time Following Commands: Follows one step commands without difficulty Safety Judgment: Decreased awareness of need for safety Awareness of Errors: Assistance required to correct errors made Deficits: Decreased awareness of deficits Attention Span: Appears intact Memory: (at-risk, will continue to monitor) Problem Solving: Assistance required to identify errors made ADL Assessment/Intervention: ADLs: Eating Assistance: Grooming Assistance: Bathing Assistance: UE Dressing Assistance: Minimal UE Dressing Location: standing UE Dressing Deficit: Pull around back, Pull down in back, Balance, Generalized weakness UE Dressing Skilled Rationale (Verbal/Tactile/Visual/Demonstrat ion): Setup, Supervision, Facilitate positioning LE Dressing Assistance: Moderate LE Dressing Location: seated in chair LE Dressing Deficit: Don/doff R sock, Don/doff L sock, Increased time to complete, Activity tolerance, Generalized weakness LE Dressing Skilled Rationale (Verbal/Tactile/Visual/Demonstrat ion): Setup, Supervision, Facilitate positioning Toilet Assistance: Balance: Sitting Balance Static Sitting-Level of Assistance: Standby Dynamic Sitting-Level of Assistance: Standby Skilled Rationale: Verbal cues, Positioning Standing Balance Static Standing-Level of Assistance: Contact guard, Minimum assistance Dynamic Standing-Level of Assistance: Minimum assistance Standing-Balance Support: Gait belt, Front-wheeled walker Skilled Rationale: Verbal cues, Positioning Transfer Assessment/Intervention: Sit to Stand Transfer Lamb Level: Sit->Stand: moderate assist (50% patient effort) Assistive Device: Sit->Stand: gait belt, front-wheeled walker, armed chair Skilled Rationale: Verbal cues, Hand placement, Positioning Skilled Intervention/Details: Sit->Stand: Verbal cues for hand placement, positioning and facilitating anterior weight shift for standing transfer success. Mod assist for reaching full upright standing position with use of 2WW. Increased time/effort for execution. Stand to Sit Transfer Lamb Level: Stand->Sit: minimum assist (75% patient effort) Assistive Device: Stand->Sit: gait belt, front-wheeled walker, armed chair Skilled Rationale: Verbal cues, Hand placement, Positioning, Controlled descent for sitting Skilled Intervention/Details: Stand->Sit: Verbal cues for safe hand placement/reach back to chair arm rest(s) for controlled descent, good carryover. Functional Mobility: Functional Mobility Lamb Level: Functional Mobility/Gait: minimum assist (75% patient effort) Assistive Device: Functional Mobility/Gait: gait belt, front-wheeled walker Functional Mobility Distance: Distance needed for common household mobility Ambulation Distance (Feet): 60 Functional Mobility Deficits: Activity tolerance, Balance, Generalized weakness Functional Mobility Skilled Rationale: Verbal cues, Walker management/safety Skilled Intervention/Details - Functional Mobility/Gait: Patient completed functional mobility household distance with contact guard-min assist and 2WW, verbal cues/tactile facilitation for walker management, specifically maintaining body within walker frame with direction change(s). Patient with slow pace and forward flexed posture, cues to correct with limited carryover. Outcome Score(s): CURRENT -[facility] Daily Activity Inpatient Short Form Putting on/Taking Off Lower Body Clothin - A Lot of Assistance Bathin - A Lot of Assistance Toiletin - A Lot of Assistance Putting on/Taking Off Upper Body Clothin - A Little Assistance Groomin - A Little Assistance Eatin - No Assistance CURRENT -[facility] Activity Raw Score: 16 CURRENT AM-[facility] Activity Functional Limitation/Modifier: 53.32% Currently Impaired in Daily Activity - CK Assessment & Plan: Patient working toward stated OT goals; engaged in transfer training, dressing tasks and functional mobility household distance in prep for basic daily routine completion. Patient demonstrates impaired functional endurance/strength, dynamic standing balance/tolerance and safety awareness. Continue to advance toward stated OT goals to maximize safety and independence with ADLs and functional activity. Patient Instruction/Education this session: Learners: Patient Education provided: Role of this discipline, Plan of care Plan for next session: Multi-step ADL routine, standing task completion, progress functional mobility Acute OT Goals Plan of Care by Kate Todd OT at 06/18/2025 10:30 AM Version 1 of 1 Problem: OT - ADLs Goal: Lower Body Dressing - Patient will complete lower body dressing tasks with modified independence using adaptive equipment/compensatory strategies as needed for improved ability to complete self-care activities. Outcome: Ongoing Problem: OT - Endurance Goal: Endurance Functional Mobility - Patient will complete distance needed for common household mobility with modified independence, LRD and no needed rest breaks for improved tolerance to safely complete I/ADL's Outcome: Ongoing OT treatment consisted of the following to work and progress towards the above goal(s): OT Evaluation and Treatment Time Therapeutic Activity Time Entry: 23 Treating Therapist: Kate Todd OT Additional Details: OT Co-Eval/Treatment Information Co-evaluation/co-treatment performed?: No simultaneous skilled care performed PPE used during patient interaction: gloves Patient location at end of session: chair Alarms on at end of session: RN aware, chair alarm Needs in reach. Time In: 1030 Time Out: 1053 Total Visit Time: 23 minutes Total Treatment Time (skilled, billable minutes): 23 minutes Upon discontinuation of Acute Care Occupational Therapy Services or patient discharge from the hospital this note represents the current Occupational Therapy Discharge Summary. Summary: Follow-Up Discharge Plan SW Discharge Plan Follow Up: Estimated Discharge Date: To be determined Referred Level of Care: [facility] Facility Discharge Considerations: Medical stability Bed availability Transportation Referral Status: Family accepted pending [place] [address] COVID Testing Requirements: Not required Discharge Transportation: Family to provide transport Plan: Discharge to SNF by family transport. Addendum 1030 hours: Patient was discussed in Rounds and is medically ready for discharge. Oncology appoints to be rescheduled into July. Addendum 1220 hours: SNF confirmed bed availability. SW contacted daughter and provided update. Daughter confirmed the ability to provide transport today. SW in communication with SNF and Team to coordinate discharge plans. HENS was completed. Rachelle De Anda MSW, TERI-S Wire Technician, Cancer Medicine ([facility]) [facility] For Evening (4:30pm-8am) and Weekend SW needs please call [phone] or page [phone] Acute Physical Therapy Treatment Prior Gross Functional Mobility: independent Current AM-PAC score(s): CURRENT AM-PAC Mobility Raw Score: 14 Based on the above AM-PAC score(s) and PT clinical judgment, patient is a good candidate for discharge to [facility] Facility Barriers to discharge home: Lack of supervision necessary to mitigate fall risk, Patient needs assistance with functional mobility, Patient needs assistance with IADLs (see note below), Patient unable to navigate stairs to enter home Mobility equipment available at home: front-wheeled walker ADL equipment available at home: grab bars (by the toilet) Equipment needed for discharge: 4 wheeled walker Current therapy frequency recommendation in acute: PT Therapy Frequency: 5 times a week Activity Recommendations for outside of rehab session: up with x1 assist with FWW and gait belt Precautions and Weightbearing Status: Existing Precautions/Restrictions: fall Lines/Tubes/Drains (Rehab Status): No critical lines at this time Patient Safety Communication Prior to Visit: Nursing Subjective: pt greeted in bed, agreeable to session Pain: General Pain Documentation (Adult, OB, Peds) Presence of Pain: denies pain/discomfort Presence of Pain Score (Auto-calculated): 0 Objective/Observation: Vitals/Vitals Responses to Treatment: VSS O2 Device: room air Cognition Overall Cognitive Status: Within Functional Limits Arousal/Alertness: Appropriate responses to stimuli Orientation Level: Oriented to person, Oriented to place, Oriented to time Following Commands: Follows one step commands without difficulty Safety Judgment: Decreased awareness of need for safety Awareness of Errors: Assistance required to correct errors made Deficits: Decreased awareness of deficits Extremity Assessments: See PT Evaluation flowsheet for Extremity Measurement updates. Skin and Edema: Balance: Sitting Balance Static Sitting-Level of Assistance: Standby Dynamic Sitting-Level of Assistance: Standby Skilled Rationale: Positioning, Hand placement, Tactile cues, Full extension to upright positioning/posture Sitting Balance Skilled Intervention/Details: requires increased time to scoot forward at EOB Standing Balance Static Standing-Level of Assistance: Contact guard, Minimum assistance Dynamic Standing-Level of Assistance: Minimum assistance, Moderate assistance Standing-Balance Support: Gait belt, Front-wheeled walker Skilled Rationale: Positioning, Sequencing, Hand placement, Verbal cues, Full extension to upright positioning/posture Standing Balance Skilled Intervention/Details: performed x3 stands to progress LE strength, posture and balance; pt with flucuating assist from CG to MOD A to transition to standing. Cues for upright posture Mobility Assessment/Intervention: Supine to Sit Mobility Lamb Level: Supine->Sit: minimum assist (75% patient effort) Bed Features/Set-up: Supine->Sit: Head of bed elevated, Use of bed rail Skilled Rationale: Positioning, Verbal cues, Tactile cues, Full extension to upright positioning/posture Skilled Intervention/Details: Supine->Sit: x1 to L with increased time but less assist at BLE to advance towards EOB this date; MIN A at trunk for upright posture Transfer Assessment/Intervention: Sit to Stand Transfer Lamb Level: Sit->Stand: moderate assist (50% patient effort) Assistive Device: Sit->Stand: gait belt, front-wheeled walker Skilled Rationale: Positioning, Sequencing, Hand placement, Verbal cues, Facilitate anterior shift, Full extension to upright positioning/posture, Finding/maintaining midline positioning Skilled Intervention/Details: Sit->Stand: x1 from EOB, x3 from chair; increased difficulty sequencing transition to standing and forward weight shift despite cues. Limited by retropulsion Stand to Sit Transfer Lamb Level: Stand->Sit: minimum assist (75% patient effort) Assistive Device: Stand->Sit: gait belt, front-wheeled walker Skilled Rationale: Positioning, Sequencing, Hand placement, Verbal cues, Controlled descent for sitting Skilled Intervention/Details: Stand->Sit: x4 to chair with cues for positioning prior to sitting; MIN A to control descent Gait/Functional Mobility Assessment/Intervention: Gait Assessment Lamb Level: Gait: (CG to MIN A) Assistive Device: Gait: gait belt, front-wheeled walker Ambulation Distance (Feet): 140 (40 + 40 + 60 ft with seated rest between trials) Gait Deviations Identified: decreased baylee, decreased gait speed, flexed posture, increased postural sway, wide base of support Gait Skilled Rationale: verbal, upright posture, safety to avoid obstacles Skilled Intervention/Details - Gait: completed x3 bouts with seated rest between ea trial d/t weakness and fatigue. Stairs Assessment/Intervention: Outcome Score(s): CURRENT [facility] Basic Mobility Inpatient Short Form Turning over in bed: 3 - A Little Assistance Moving from lying on back to sittin - A Little Assistance Moving to and from bed to chair: 2 - A Lot of Assistance Sitting/standing from chair: 2 - A Lot of Assistance Walk in hospital room: 3 - A Little Assistance Climbing 3-5 steps with a railin - Total Assistance CURRENT [facility] Mobility Raw Score: 14 CURRENT [facility] Mobility Functional Limitation: 61.29% Impaired in Basic Mobility Interventions: Intervention 1 Intervention Name: standing weight shifts Sets/Reps/Duration: x2 min Details: performed to reduce retropulsion with STS and improve balance; cued for anterior to posterior weight shifting Assessment & Plan: Pt with good tolerance of session with focus on bed mobility, standing balance/endurance, transfers, and gait. Pt demos progression with ability to ambulate multiple trials this session. Pt continues to be limited by difficulty with STS d/t weakness and retropulsion. Pt would continue to benefit from skilled PT to improve independence with functional mobility to allow progression towards established PT goals/POC. Patient Instruction/Education this session: Learners: Patient Education provided: Functional transfers, Balance training Teaching method: Verbal Education/Instruction Learner response: Applies knowledge Learning preferences: Auditory Learning considerations: Hearing Impairment Plan for next session: progress STS, balance, gait Acute PT Goals Plan of Care by Elsa Valencia PT at 06/18/2025 8:14 AM Version 1 of 1 Problem: PT - General Goals Goal: Supine <-> Sit Transfers - Patient will perform supine to/from sit transfers with independence and without use of hospital bed features in order to improve functional mobility and safety. Outcome: Ongoing Goal: Sit <-> Stand Transfers - Patient will perform sit to/from stand transfers with modified independence and least restrictive device in order to improve functional mobility and safety. Outcome: Ongoing Goal: Standing Endurance/Balance - Patient will perform standing balance tasks for 10 min with modified independence and least restrictive device while maintaining an RPE of less than 3/10 to improve endurance and safety with standing tasks. Outcome: Ongoing Goal: Ambulation - Patient will ambulate 250 feet with modified independence and least restrictive device to improve ability to safely navigate home and community. Outcome: Ongoing PT treatment consisted of the following to progress towards the above goal(s): PT Evaluation and Treatment Time Therapeutic Activity Time Entry: 17 Gait Training Time Entry: 10 Treating Therapist: Elsa Valencia PT Additional Details: PT Co-Eval/Treatment Information Co-evaluation/co-treatment performed?: No simultaneous skilled care performed PPE used during patient interaction: gloves Patient location at end of session: chair Alarms on at end of session: chair alarm Needs in reach. Time In: 813 Time Out: 840 Total Visit Time: 27 minutes Total Treatment Time (skilled, billable minutes): 27 minutes Upon discontinuation of Acute Care Physical Therapy Services or patient discharge from the hospital this note represents the current Physical Therapy Discharge Summary. CANCER MEDICINE INPATIENT PROGRESS NOTE TODAY'S DATE: 06/17/2025 ADMIT DATE: 06/10/2025 5:34 PM REASON FOR ADMISSION: Anorexia Oncology Team: Dr. Walsh ASSESSMENT AND PLAN Sebastian Hannon is a 89 y.o. 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 ACUTE PROBLEMS FTT Poor PO Intake Nausea - He is currently undergoing immunotherapy for melanoma, with the first dose administered on 05/21/2025. Initially, he responded well to the treatment and was able to live independently. However, during a recent visit, it was observed that he had lost approximately 3 to 4 pounds and his appetite had significantly decreased. He has been experiencing some nausea. Reports generalized weakness and dyspnea on exertion, possibly related to fatigue, poor intake, and immunotherapy. 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 Since he's malnourished and without respiratory concerns, he's ok to stay on his current diet but recommend MBS MBS (06/13): cleared for regular solids with thin liquid. However, has oral dysphagia and etiology is unclear at this time. Question if malnutrition/failure to thrive is contributing to increased weakness and reduced oral efficiency. Also question if possible cranial nerve involvement presumed reduced sensation. Swallow safety is preserved; oral swallow efficiency is impaired. 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 He received his first dose on 05/21. He remains asymptomatic and denies diaphoresis, palpitations, anxiety or tremulousness. He had a CTPE on 06/09 however his thyroid function labs were drawn before the iodine contrast load, thus they should have not been impacted. - Endo consult: In light of mild clinically disease and given the temporary character of the ICI driven thyroiditis, we will pursue monitoring for the moment and repeat of labs in a week. Repeat Thyroid function labs: TSH (0.012), T3(1.25) ( T4 (3.08) Follow TSI antibodies (ordered and pending) - Continue to monitor for symptom development Hx of Systolic HF Demand ischemia (Elevated BPN/Troponin) in the setting of dehydration, CKD Hx Pulmonary Hypertension Hx CAD s/p cardiac bypass Hx Bioprosthetic mitral valve replacement Pt reports ELIZABETH and fatigue but currently on RA. Denies chest pain. - Trop trending up in ED 85>>94>>123. Peaked 06/10, no longer trending - BNP 4511 - Last Echo EF 35%. RVSP 69 mmHg on echocardiogram. - Cardiology consult: BNP level is elevated and troponin is slightly elevated, this seems more in line with his kidney disease and decreased intake rather than ACS or HF exacerbation. I do think that there is a long standing pulmonary hypertension component to his symptoms. A RHC in February showed elevated left sided pressures as well as elevated pulmonary pressures, supporting group 2 PH. He is on adequate diuretics and GDMT from this standpoint. Uncertain how the diagonal fistula would factor into his long-standing symptoms, but does not seem to be causing anginal symptoms Recommend holding Lasix until euvolemic. May need to re-assess his Lasix maintenance dose given his decreased appetite. Can restart with 40 mg Lasix PO daily (reduced from home dose of 60 mg) - Repeat echo (06/11): EF 45%, RVSP 65 mmHg Last echo showed similar RVSP so cards does not recommend pulm HTN evaluation inpatient - Cont amlodipine, losartan, aldactone, toprol xl, and lasix - Touched base with cards and they recommend resuming lasix at lower dose of 40 mg every other day given Cr remains stable and prefer him to be more dry given pulm HTN (resumed 06/13) - Needs pulm HTN FU OP Deconditioning - PT/OT consult: rec home with [facility] originally - Now recommending SNF 06/13. Medically stable,waiting on SNF placement. Metastatic Melanoma - Follows with Dr. Walsh - Currently on immunotherapy with opdualag (last 05/21/25) - Dr. Walsh updated via email 06/11 - FU [facility] 06/21 Quality Self-Check Complexity. Malnutrition - Severe Protein-Calorie Malnutrition (POA) (06/11/2025 12:36 PM) secondary to Acute Illness / Injury (06/11/2025 12:36 PM) - Reviewed and agree with registered nursing professor's recommendations. Wound Documentation Wound 06/11/25 1601 Distal;Right Calf (Active) Date First Assessed/Time First Assessed: (c) 06/11/25 (c) 1601 Wound Location Orientation: Distal;Right Location: Calf Any conditions listed below are present on admission unless otherwise specified. .Metastatic Cancer, Location of Metastasis - see above for additional details Body mass index is 23 kg/m . RESOLVED PROBLEMS Hyponatremia - resolved - Na 134 on 06/12 - Urine lytes and osmol suggest 2/2 diuretic use - Initially held lasix as above - Held on IVF given PO intake improving 06/12 and hx HF - Daily chem Hx of Afib Supratherapeutic INR - resolved - On home Warfarin 5mg daily. Follows with OP warfarin clinic. - Held 06/10, 06/11, 06/12 warfarin dose for supratherapeutic INR of 3.9. - No overt signs/symptoms of bleeding - Cont toprolol XL - Gave Coumadin 6 mg once 06/14, then daily Coumadin 4 mg - Monitor daily INR until therapeutic for 2 consecutive days, then every 2 days for 14 days or until discharged. Maintain goal INR 2-3 - Needs OP warfarin clinic FU scheduled CHRONIC PROBLEMS RA - Cont home hydroxychloroquine - [facility] referred patient to Dr. Desai for evaluation of RA management with immunotherapy - FU Dr. Desai 06/21 CKD Stage 2 - Baseline Cr appears ~ 1.3 - Avoid nephrotoxic meds - Daily chem DVT prophylaxis: home warfarin resumed Diet: DIET REGULAR Liquid Thin (IDDSI 0) Continuous Infusions: Code Status: Full Code Fall Risk: Assessed for patient fall risk and discussed safety measures during rounding. CENTRAL LINES: None Serious Illness Conversation: None Disposition: The patient will require continued hospitalization for poor PO intake, discharge planning to SNF. They are expected to discharge to alf facility. Today they are expected to be medically ready for discharge on TBD. Follow-ups made: Dr. Desai 06/21, Dr. Walsh ([facility]) 06/21 Follow-ups needed: TBD SUBJECTIVE No acute events overnight. Patient seen sitting up in bed. Daughter at bedside Patient currently denies fever, chills, FLEMING, chest pain, SOB, vomiting, and diarrhea. All questions/concerns answered. Remainder of ROS queried and negative. Plan of care reviewed with patient and daughter. All questions answered. OBJECTIVE Temp: [97.6 F (36.4 C)-99.3 F (37.4 C)] 98 F (36.7 C) Pulse (Heart Rate): [58-70] 70 Resp Rate: [16-18] 16 BP: (133-160)/(58-71) 144/67 O2 Sat (%): [95 %-100 %] 99 % General: A&O to self, time, place, and situation. NAD. HEENT: EOMI, anicteric sclerae, conjunctivae & lids symmetrical. No signs of inflammation. Neck no rigidity. Not ALATNA. Respiratory: Clear to auscultation bilaterally, no crackles/rhonchi/wheezes, no increased WOB. On RA Cardiovascular: Afib, no murmurs, 1+ pitting edema BLE (L>R). Abdomen: Normoactive BS. Abdomen soft, nontender, nondistended. No palpable masses. Neurologic: CN II-XII grossly intact. No focal deficits. Speech coherent. Follows commands. Skin: Chronic brawny discoloration of BLE (L>R). Psychosocial: Affect appropriate PIV with no evidence of erythema, drainage, or tenderness. Dressing is clean, dry, and intact. Plan of care reviewed with the attending, Dr. Sebastian Day MD: in agreement. CHICHI Santiago Pager: [phone] The provider may be reached from 7a-7p at pager listed on QGenda. After these hours please page the cadmium liquor maker or moonlighter. Cosigned by Sebastian Day MD at 06/17/2025 6:28 PM EDT Associated attestation - Sebastian Day MD - 06/17/2025 6:28 PM EDT Attending Attestation: I have personally seen and independently examined Sebastian Hannon on June 17, 2025 and I agree with the physical exam as stated above. I have personally reviewed all available clinical data related to today's encounter including, but not limited to, radiology images and reports, laboratory data, and procedure reports. I agree with the advanced practitioner's findings and have been fully involved in formulation of the assessment and plan. Sebastian Hannon is a 89 y.o. male with a past medical history of melanoma on immunotherapy (last 05/21/25), HF, afib with pacemaker (on coumadin), and HLD who presented to the hospital with nausea, decreased appetite, fatigue. 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 The patient and his daughter understand discharging to a SNF will delay cancer treatment with the risk of disease progression however recognize a SNF is the safest option for him at discharge and the best chance to optimize his performance status with hope he may continue systemic therapy at some point in the future. - Appreciate SW assistance with SNF - See advanced provider's note for details. Sebastian Day MD Filter Press Tender of Internal Medicine, Clinical Division of Hospital Medicine, Department of Internal Medicine [facility] Endocrinology Progress Note Date of admission: 06/10/2025 Admission diagnosis: Failure to thrive in adult [R62.7] No admission procedures for hospital encounter. Referring Provider: Siria Wolfe, APR* Primary Care Provider: Uma De Paz Chief Complaint/Reason for Consult: Autoimmune thyroiditis Assessment and Plan: Sebastian Hannon is a 89 y.o. 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 . Endocrinology consulted for concern for autoimmune thyroiditis. # ICI induced thyroiditis Patient presents with lab features of thyroiditis TSH: 0.149, T4: 1.98 on 06/09/2025. 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 He received his first dose on 05/21. He remains asymptomatic and denies diaphoresis, palpitations, anxiety. He had a CTPE on 06/09 however his thyroid function labs were drawn before the iodine contrast load, thus they should have not been impacted. In light of mild clinically disease and given the temporary character of the ICI driven thyroiditis, we will pursue monitoring for the moment and repeat of labs in a week. -Follow TSI. TRAb was negative. -Repeat TFTs 06/16/25 with TSH 0.012, FT4 3.08, normal TT3 1.25. 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 -Plan to continue to monitor TFTs. Repeat TSH , free T4, total T3 in 1 week. No indication for antithyroid medication at this time pending further testing results. -Follow up with endocrinology in 1-2 weeks upon discharge. CONSULT SIGN OFF Thank you for allowing us to participate in the care of this patient. Our consult team will sign off today, 06/17/2025. If you have any further questions regarding the care of this patient, please do not hesitate to reach out to our team. Patient discussed with Dr. Echo MD History of Present Illness: Received notification that patient's repeat TFTs had resulted. Patient reevaluated at bedside. He continues to have decreased appetite, fatigue, and sleepiness. Does note some shakiness to the hands. No neck pain, palpitations, diaphoresis, anxiety, diarrhea. He is tolerating current diet. Background hx from initial consult: Sebastian Hannon is a 89 y.o. male with PmHx of melanoma on immunotherapy:Nivolumab+Relatlima b last 05/21/25, HF, afib with pacemaker, on coumadin, HLD comes in to the ED for nausea, decreased appetite, fatigue concerning for failure to thrive. He was experiencing fatigue, anorexia and ELIZABETH. Pt states leading to admission he just doesn't have an interest or appetite in food. States he feels faitgue and weak at times with SOB on exertion. States he lives alone but is close with his daughter Tricia. Denies chest pain. States his legs have always been swollen and discolored. Wears compression hose. Has nausea at times without vomiting. States he wants to continue therapy with Dr. Walsh. His last checkpoint inhibitor dose was on 05/21 and he was reportedly doing well until about a week ago when he started to feel weak, and have a significantly reduced appetite, weakness, and shakiness. He has lost about 5 lbs because of this. Tricia, his child, notes that he has had ELIZABETH that is long standing and has not changed much in the past week. His only medication change this week was that he was taken off rosuvastatin for interactions with his therapies. Diet: Current Diet Orders Procedures DIET REGULAR Liquid Thin (IDDSI 0) Standing Status: Standing Number of Occurrences: 1 Additional Modifier:: Liquid Thin (IDDSI 0) Medical History: Past Medical History[1] Surgical History: Past Surgical History[2] Family History: Family History Problem Relation Age of Onset Cancer- Other Mother female cancer Myocardial Infarction Father Heart Failure Father Dementia Brother Parkinson Brother Heart Disease - Other Brother Other - Specify (skin biopsies) Brother Other - Specify (other) Brother Social History: Social History[3] Allergies: Allergies[4] Current Medications: Current Medications[5] Review of Systems: positives are in bold Negative unless stated on the HPI Physical Exam: Vitals: BP 152/50 (BP Location: Right arm, BP Position: Lying) Pulse 65 Temp 98 F (36.7 C) (Oral) Resp 16 Ht 1.778 m (5' 10 ) Wt 72.7 kg (160 lb 4.4 oz) SpO2 98% BMI 23.00 kg/m Smoking Status Never , Body mass index is 23 kg/m ., Wt Readings from Last 1 Encounters: 06/16/25 72.7 kg (160 lb 4.4 oz) General: No acute distress, cooperative HEENT: Sclerae and conjunctiva are clear. Neck: No thyromegaly or tenderness to palpation Cardiovascular: Regular rate and rhythm. Lungs: Respirations unlabored with normal respiratory effort. Abdomen: Soft, nontender, and nondistended. Extremities: Bilateral lower extremity edema. Neuro: Conscious, alert, follows commands. Mild tremor to right hand with outstretched hands Skin: Warm and dry. Procedure / Imaging / Lab Data: Pertinent procedure/imaging/lab data was reviewed: Sodium Date Value Ref Range Status 06/17/2025 140 135 - 145 mmol/L Final Potassium Date Value Ref Range Status 06/17/2025 3.8 3.5 - 5.0 mmol/L Final Chloride Date Value Ref Range Status 06/17/2025 105 98 - 108 mmol/L Final CO2 Date Value Ref Range Status 06/17/2025 22 21 - 31 mmol/L Final BUN Date Value Ref Range Status 06/17/2025 24 7 - 25 mg/dL Final Creatinine Date Value Ref Range Status 06/17/2025 1.14 0.70 - 1.30 mg/dL Final Sodium Date Value Ref Range Status 06/17/2025 140 135 - 145 mmol/L Final Potassium Date Value Ref Range Status 06/17/2025 3.8 3.5 - 5.0 mmol/L Final Chloride Date Value Ref Range Status 06/17/2025 105 98 - 108 mmol/L Final CO2 Date Value Ref Range Status 06/17/2025 22 21 - 31 mmol/L Final BUN Date Value Ref Range Status 06/17/2025 24 7 - 25 mg/dL Final Creatinine Date Value Ref Range Status 06/17/2025 1.14 0.70 - 1.30 mg/dL Final Glucose Date Value Ref Range Status 06/17/2025 108 Nonfastin-179 mg/dL; Fastin-99 mg/dL Final Lab Results Component Value Date ALT 9 (L) 06/09/2025 AST 16 06/09/2025 ALKPHOS 94 06/09/2025 BILITOTAL 0.8 06/09/2025 BILIDIRECT 0.2 06/09/2025 Lab Results Component Value Date ALT 9 (L) 06/09/2025 Lab Results Component Value Date TSH 0.012 (L) 06/16/2025 [1] Past Medical History: Diagnosis Date A-fib Acute on chronic systolic heart failure Anemia Arrhythmia ASHD (arteriosclerotic heart disease) Atrial flutter Carotid bruit Hypertension Ischemic cardiomyopathy Ischemic colitis 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 Labs reviewed and physical exam completed. I reviewed PET scans which show Prostate cancer 2020 radiation seeds Pulmonary hypertension Rheumatoid arthritis Sinus bradycardia Valvular heart disease [2] Past Surgical History: Procedure Laterality Date PACEMAKER PLACEMENT 2020 and fibrillator PACEMAKER PLACEMENT 2010 HEART VALVE SURGERY 2006 valve replacement BACK SURGERY 1980 SKIN BIOPSY [3] Social History Tobacco Use Smoking status: Never Smokeless tobacco: Never Vaping Use Vaping status: Never Used Substance Use Topics Alcohol use: Not Currently Drug use: Never [4] Allergies Allergen Reactions Latex Itching Penicillins [5] Current Facility-Administered Medications: Acetaminophen (TYLENOL) tablet 650 mg, 650 mg, Oral, Q6H PRN, Natasha Hurtado PA-C, 650 mg at 06/14/25 1141 alum/mag hydrox.-simethicone oral suspension 30 mL, 30 mL, Oral, Q6H PRN, Natasha Hurtado PA-C amLODIPine (NORVASC) tablet 2.5 mg, 2.5 mg, Oral, Daily, Natasha Hurtado PA-C, 2.5 mg at 06/17/25 09 Fexofenadine (NIKUNJ) tablet 180 mg, 180 mg, Oral, Daily, Natasha Hurtado PA-C, 180 mg at 06/17/25906 Finasteride (PROSCAR) tablet 5 mg, 5 mg, Oral, QAM, Natasha Hurtado PA-C, 5 mg at 06/17/25906 furOSEmide (LASIX) tablet 40 mg, 40 mg, Oral, Q2 days, Cris Rosa PA-C, 40 mg at 06/17/25 1200 Hydroxychloroquine (PLAQUENIL) tablet 200 mg, 200 mg, Oral, Once per day on Wednesday, 200 mg at 06/17/25906 AND Hydroxychloroquine (PLAQUENIL) tablet 200 mg, 200 mg, Oral, 2 times per day on Wednesday, Natasha Hurtado PA-C, 200 mg at 06/15/251801 Losartan (COZAAR) tablet 50 mg, 50 mg, Oral, Daily, Natasha Hurtado PA-C, 50 mg at 06/17/25906 Metoprolol succinate (TOPROL-XL) tablet XL 75 mg, 75 mg, Oral, Daily, Natasha Hurtado PA-C, 75 mg at 06/17/25906 Mirtazapine (REMERON) tablet 7.5 mg, 7.5 mg, Oral, QHS, LUCERO Irene, 7.5 mg at 06/16/252050 Ondansetron 4mg/2ml (ZOFRAN) injection 4 mg, 4 mg, Intravenous, Q6H PRN, 4 mg at 06/11/25 1220 OR Ondansetron (ZOFRAN) tablet 4 mg, 4 mg, Oral, Q4H PRN, Natasha Hurtado PA-C Polyethylene glycol (MIRALAX) packet 17 g, 17 g, Oral, Daily, Yves Lamb MD, 17 g at 06/14/25 0904 Spironolactone (ALDACTONE) tablet 25 mg, 25 mg, Oral, Natasha CHAMPION PA-C, 25 mg at 06/17/25 0907 warfarin (COUMADIN) tablet 4 mg, 4 mg, Oral, Daily, Khris Levine APRN-TRACK WORKER, 4 mg at 06/17/25 1701 Cosigned by Fermin Dodge MD at 06/17/2025 7:27 PM EDT Associated attestation - Fermin Dodge MD - 06/17/2025 7:27 PM EDT ATTENDING ATTESTATION: The patient was seen and examined independently by me at bedside. I have done the clinical exam personally and have worked together in formulating the plan of care along with Dr Hernandez. The case including the history, physical examination, assessment, and plan was discussed in detail with Dr Hernandez. I have reviewed the patient's charts and labs in detail. I agree with Dr Hernandez's assessment and plan. The patient was seen on 06/17/2025 Fermin Dodge MD CANCER MEDICINE INPATIENT PROGRESS NOTE TODAY'S DATE: 06/16/2025 ADMIT DATE: 06/10/2025 5:34 PM REASON FOR ADMISSION: Anorexia Oncology Team: Dr. Walsh ASSESSMENT AND PLAN Sebastian Hannon is a 89 y.o. 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 ACUTE PROBLEMS FTT Poor PO Intake Nausea - He is currently undergoing immunotherapy for melanoma, with the first dose administered on 05/21/2025. Initially, he responded well to the treatment and was able to live independently. However, during a recent visit, it was observed that he had lost approximately 3 to 4 pounds and his appetite had significantly decreased. He has been experiencing some nausea. Reports generalized weakness and dyspnea on exertion, possibly related to fatigue, poor intake, and immunotherapy. 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 Since he's malnourished and without respiratory concerns, he's ok to stay on his current diet but recommend MBS MBS (06/13): cleared for regular solids with thin liquid. However, has oral dysphagia and etiology is unclear at this time. Question if malnutrition/failure to thrive is contributing to increased weakness and reduced oral efficiency. Also question if possible cranial nerve involvement presumed reduced sensation. Swallow safety is preserved; oral swallow efficiency is impaired. 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 He received his first dose on 05/21. He remains asymptomatic and denies diaphoresis, palpitations, anxiety or tremulousness. He had a CTPE on 06/09 however his thyroid function labs were drawn before the iodine contrast load, thus they should have not been impacted. - Endo consult: In light of mild clinically disease and given the temporary character of the ICI driven thyroiditis, we will pursue monitoring for the moment and repeat of labs in a week. Repeat Thyroid function labs: TSH (0.012), T3(1.25) ( T4 (3.08) Follow TSI antibodies (ordered and pending) - Continue to monitor for symptom development Hx of Systolic HF Demand ischemia (Elevated BPN/Troponin) in the setting of dehydration, CKD Hx Pulmonary Hypertension Hx CAD s/p cardiac bypass Hx Bioprosthetic mitral valve replacement Pt reports ELIZABETH and fatigue but currently on RA. Denies chest pain. - Trop trending up in ED 85>>94>>123. Peaked 06/10, no longer trending - BNP 4511 - Last Echo EF 35%. RVSP 69 mmHg on echocardiogram. - Cardiology consult: BNP level is elevated and troponin is slightly elevated, this seems more in line with his kidney disease and decreased intake rather than ACS or HF exacerbation. I do think that there is a long standing pulmonary hypertension component to his symptoms. A RHC in February showed elevated left sided pressures as well as elevated pulmonary pressures, supporting group 2 PH. He is on adequate diuretics and GDMT from this standpoint. Uncertain how the diagonal fistula would factor into his long-standing symptoms, but does not seem to be causing anginal symptoms Recommend holding Lasix until euvolemic. May need to re-assess his Lasix maintenance dose given his decreased appetite. Can restart with 40 mg Lasix PO daily (reduced from home dose of 60 mg) - Repeat echo (06/11): EF 45%, RVSP 65 mmHg Last echo showed similar RVSP so cards does not recommend pulm HTN evaluation inpatient - Cont amlodipine, losartan, aldactone, toprol xl, and lasix - Touched base with cards and they recommend resuming lasix at lower dose of 40 mg every other day given Cr remains stable and prefer him to be more dry given pulm HTN (resumed 06/13) - Needs pulm HTN FU OP Deconditioning - PT/OT consult: rec home with [facility] originally - Now recommending SNF 06/13 Metastatic Melanoma - Follows with Dr. Walsh - Currently on immunotherapy with opdualag (last 05/21/25) - Dr. Walsh updated via email 06/11 - FU [facility] 06/21 Quality Self-Check Complexity. Malnutrition - Severe Protein-Calorie Malnutrition (POA) (06/11/2025 12:36 PM) secondary to Acute Illness / Injury (06/11/2025 12:36 PM) - Reviewed and agree with registered nursing professor's recommendations. Wound Documentation Wound 06/11/25 1601 Distal;Right Calf (Active) Date First Assessed/Time First Assessed: (c) 06/11/25 (c) 1601 Wound Location Orientation: Distal;Right Location: Calf Any conditions listed below are present on admission unless otherwise specified. .Metastatic Cancer, Location of Metastasis - see above for additional details Body mass index is 23 kg/m . RESOLVED PROBLEMS Hyponatremia - resolved - Na 134 on 06/12 - Urine lytes and osmol suggest 2/2 diuretic use - Initially held lasix as above - Held on IVF given PO intake improving 06/12 and hx HF - Daily chem Hx of Afib Supratherapeutic INR - resolved - On home Warfarin 5mg daily. Follows with OP warfarin clinic. - Held 06/10, 06/11, 06/12 warfarin dose for supratherapeutic INR of 3.9. - INR decreased to 3.0 06/13 - No overt signs/symptoms of bleeding - Cont toprolol XL - Will give Coumadin 6 mg once today, them dailu Coumadin 4 mg - Monitor daily INR until therapeutic for 2 consecutive days, then every 2 days for 14 days or until discharged. Maintain goal INR 2-3 - Needs OP warfarin clinic FU scheduled CHRONIC PROBLEMS RA - Cont home hydroxychloroquine - [facility] referred patient to Dr. Desai for evaluation of RA management with immunotherapy - FU Dr. Desai 06/21 CKD Stage 2 - Baseline Cr appears ~ 1.3 - Avoid nephrotoxic meds - Daily chem DVT prophylaxis: home warfarin resumed 06/13 with dose reduction as above Diet: DIET REGULAR Liquid Thin (IDDSI 0) Continuous Infusions: Code Status: Full Code Fall Risk: Assessed for patient fall risk and discussed safety measures during rounding. CENTRAL LINES: None Serious Illness Conversation: None Disposition: The patient will require continued hospitalization for poor PO intake, discharge planning to SNF. They are expected to discharge to alf facility. Today they are expected to be medically ready for discharge on TBD. Follow-ups made: Dr. Desai 06/21, Dr. Walsh ([facility]) 06/21 Follow-ups needed: TBD SUBJECTIVE No acute events overnight. Patient seen sitting up in bed. Daughter at bedside Patient currently denies fever, chills, FLEMING, chest pain, SOB, vomiting, and diarrhea. All questions/concerns answered. Remainder of ROS queried and negative. Plan of care reviewed with patient and daughter. All questions answered. OBJECTIVE Temp: [97.5 F (36.4 C)-97.7 F (36.5 C)] 97.7 F (36.5 C) Pulse (Heart Rate): [62-66] 62 Resp Rate: [12-18] 16 BP: (140-155)/(65-72) 155/72 O2 Sat (%): [92 %-100 %] 96 % Weight: [72.7 kg (160 lb 4.4 oz)] 72.7 kg (160 lb 4.4 oz) General: A&O to self, time, place, and situation. NAD. HEENT: EOMI, anicteric sclerae, conjunctivae & lids symmetrical. No signs of inflammation. Neck no rigidity. Not ALATNA. Respiratory: Clear to auscultation bilaterally, no crackles/rhonchi/wheezes, no increased WOB. On RA Cardiovascular: Afib, no murmurs, 1+ pitting edema BLE (L>R). Abdomen: Normoactive BS. Abdomen soft, nontender, nondistended. No palpable masses. Neurologic: CN II-XII grossly intact. No focal deficits. Speech coherent. Follows commands. Skin: Chronic brawny discoloration of BLE (L>R). Psychosocial: Affect appropriate PIV with no evidence of erythema, drainage, or tenderness. Dressing is clean, dry, and intact. Plan of care reviewed with the attending, Dr. Sebastian Day MD: in agreement. CHICHI Santiago Pager: [phone] The provider may be reached from 7a-7p at pager listed on [employer]. After these hours please page the cadmium liquor maker or moonlighter. Cosigned by Sebastian Day MD at 06/16/2025 3:37 PM EDT Associated attestation - Sebastian Day MD - 06/16/2025 3:37 PM EDT Attending Attestation: I have personally seen and independently examined Sebastian Hannon on June 16, 2025 and I agree with the physical exam as stated above. I have personally reviewed all available clinical data related to today's encounter including, but not limited to, radiology images and reports, laboratory data, and procedure reports. I agree with the advanced practitioner's findings and have been fully involved in formulation of the assessment and plan. Sebastian Hannon is a 89 y.o. male with a past medical history of melanoma on immunotherapy (last 05/21/25), HF, afib with pacemaker (on coumadin), and HLD who presented to the hospital with nausea, decreased appetite, fatigue. 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 The patient and his daughter understand discharging to a SNF will delay cancer treatment with the risk of disease progression however recognize a SNF is the safest option for him at discharge and the best chance to optimize his performance status with hope he may continue systemic therapy at some point in the future. - Appreciate SW assistance with SNF - See advanced provider's note for details. Sebastian Day MD Filter Press Tender of Internal Medicine, Clinical Division of Hospital Medicine, Department of Internal Medicine [facility] CANCER MEDICINE INPATIENT PROGRESS NOTE TODAY'S DATE: 06/15/2025 ADMIT DATE: 06/10/2025 5:34 PM REASON FOR ADMISSION: Anorexia Oncology Team: Dr. aWlsh ASSESSMENT AND PLAN Sebastian Hannon is a 89 y.o. 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 ACUTE PROBLEMS FTT Poor PO Intake Nausea - He is currently undergoing immunotherapy for melanoma, with the first dose administered on 05/21/2025. Initially, he responded well to the treatment and was able to live independently. However, during a recent visit, it was observed that he had lost approximately 3 to 4 pounds and his appetite had significantly decreased. He has been experiencing some nausea. Reports generalized weakness and dyspnea on exertion, possibly related to fatigue, poor intake, and immunotherapy. 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 Since he's malnourished and without respiratory concerns, he's ok to stay on his current diet but recommend MBS MBS (06/13): cleared for regular solids with thin liquid. However, has oral dysphagia and etiology is unclear at this time. Question if malnutrition/failure to thrive is contributing to increased weakness and reduced oral efficiency. Also question if possible cranial nerve involvement presumed reduced sensation. Swallow safety is preserved; oral swallow efficiency is impaired. 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 He received his first dose on 05/21. He remains asymptomatic and denies diaphoresis, palpitations, anxiety or tremulousness. He had a CTPE on 06/09 however his thyroid function labs were drawn before the iodine contrast load, thus they should have not been impacted. - Endo consult: In light of mild clinically disease and given the temporary character of the ICI driven thyroiditis, we will pursue monitoring for the moment and repeat of labs in a week. Repeat Thyroid function labs: TSH and fT4 in 1 week (repeat on 06/18, ordered) Follow TSI antibodies (ordered) - Continue to monitor for symptom development Hx of Systolic HF Demand ischemia (Elevated BPN/Troponin) in the setting of dehydration, CKD Hx Pulmonary Hypertension Hx CAD s/p cardiac bypass Hx Bioprosthetic mitral valve replacement Pt reports ELIZABETH and fatigue but currently on RA. Denies chest pain. - Trop trending up in ED 85>>94>>123. Peaked 06/10, no longer trending - BNP 4511 - Last Echo EF 35%. RVSP 69 mmHg on echocardiogram. - Cardiology consult: BNP level is elevated and troponin is slightly elevated, this seems more in line with his kidney disease and decreased intake rather than ACS or HF exacerbation. I do think that there is a long standing pulmonary hypertension component to his symptoms. A RHC in February showed elevated left sided pressures as well as elevated pulmonary pressures, supporting group 2 PH. He is on adequate diuretics and GDMT from this standpoint. Uncertain how the diagonal fistula would factor into his long-standing symptoms, but does not seem to be causing anginal symptoms Recommend holding Lasix until euvolemic. May need to re-assess his Lasix maintenance dose given his decreased appetite. Can restart with 40 mg Lasix PO daily (reduced from home dose of 60 mg) - Repeat echo (06/11): EF 45%, RVSP 65 mmHg Last echo showed similar RVSP so cards does not recommend pulm HTN evaluation inpatient - Cont amlodipine, losartan, aldactone, toprol xl, and lasix - Touched base with cards and they recommend resuming lasix at lower dose of 40 mg every other day given Cr remains stable and prefer him to be more dry given pulm HTN (resumed 06/13) - Needs pulm HTN FU OP Deconditioning - PT/OT consult: rec home with [facility] originally - Now recommending SNF 06/13 Metastatic Melanoma - Follows with Dr. Walsh - Currently on immunotherapy with opdualag (last 05/21/25) - Dr. Walsh updated via email 06/11 - FU [facility] 06/21 Quality Self-Check Complexity. Hypocalcemia - Continue to monitor and replete. Malnutrition - Severe Protein-Calorie Malnutrition (POA) (06/11/2025 12:36 PM) secondary to Acute Illness / Injury (06/11/2025 12:36 PM) - Reviewed and agree with registered nursing professor's recommendations. Wound Documentation Wound 06/11/25 1601 Distal;Right Calf (Active) Date First Assessed/Time First Assessed: (c) 06/11/25 (c) 1601 Wound Location Orientation: Distal;Right Location: Calf Any conditions listed below are present on admission unless otherwise specified. .Metastatic Cancer, Location of Metastasis - see above for additional details Body mass index is 22.62 kg/m . RESOLVED PROBLEMS Hyponatremia - resolved - Na 134 on 06/12 - Urine lytes and osmol suggest 2/2 diuretic use - Initially held lasix as above - Held on IVF given PO intake improving 06/12 and hx HF - Daily chem Hx of Afib Supratherapeutic INR - resolved - On home Warfarin 5mg daily. Follows with OP warfarin clinic. - Held 06/10, 06/11, 06/12 warfarin dose for supratherapeutic INR of 3.9. - INR decreased to 3.0 06/13 - No overt signs/symptoms of bleeding - Cont toprolol XL - Will give Coumadin 6 mg once today, them tomorrow Coumadin 4 mg - Monitor daily INR until therapeutic for 2 consecutive days, then every 2 days for 14 days or until discharged. Maintain goal INR 2-3 - Needs OP warfarin clinic FU scheduled CHRONIC PROBLEMS RA - Cont home hydroxychloroquine - [facility] referred patient to Dr. Desai for evaluation of RA management with immunotherapy - FU Dr. Desai 06/21 CKD Stage 2 - Baseline Cr appears ~ 1.3 - Avoid nephrotoxic meds - Daily chem DVT prophylaxis: home warfarin resumed 06/13 with dose reduction as above Diet: DIET REGULAR Liquid Thin (IDDSI 0) Continuous Infusions: Code Status: Full Code Fall Risk: Assessed for patient fall risk and discussed safety measures during rounding. CENTRAL LINES: None Serious Illness Conversation: None Disposition: The patient will require continued hospitalization for poor PO intake, discharge planning to SNF. They are expected to discharge to alf facility. Today they are expected to be medically ready for discharge on TBD. Follow-ups made: Dr. Desai 06/21, [facility] Hospital) 06/21 Follow-ups needed: TBD SUBJECTIVE No acute events overnight. Patient seen sitting up in chair. Daughter at bedside Patient currently denies fever, chills, FLEMING, chest pain, SOB, vomiting, and diarrhea. All questions/concerns answered. Remainder of ROS queried and negative. Plan of care reviewed with patient and daughter. All questions answered. OBJECTIVE Temp: [97.4 F (36.3 C)-98.6 F (37 C)] 98.4 F (36.9 C) Pulse (Heart Rate): [62-89] 62 Resp Rate: [14-18] 16 BP: (130-160)/(60-72) 160/70 O2 Sat (%): [94 %-100 %] 100 % General: A&O to self, time, place, and situation. NAD. HEENT: EOMI, anicteric sclerae, conjunctivae & lids symmetrical. No signs of inflammation. Neck no rigidity. Not ALATNA. Respiratory: Clear to auscultation bilaterally, no crackles/rhonchi/wheezes, no increased WOB. On RA Cardiovascular: Afib, no murmurs, 1+ pitting edema BLE (L>R). Abdomen: Normoactive BS. Abdomen soft, nontender, nondistended. No palpable masses. Neurologic: CN II-XII grossly intact. No focal deficits. Speech coherent. Follows commands. Skin: Chronic brawny discoloration of BLE (L>R). Psychosocial: Affect appropriate PIV with no evidence of erythema, drainage, or tenderness. Dressing is clean, dry, and intact. Plan of care reviewed with the attending, Dr. Sebastian Day MD: in agreement. CHICHI Santiago Pager: [phone] The provider may be reached from 7a-7p at pager listed on QGenda. After these hours please page the cadmium liquor maker or moonlighter. Cosigned by Sebastian Day MD at 06/15/2025 3:55 PM EDT Associated attestation - Sebastian Day MD - 06/15/2025 3:55 PM EDT Attending Attestation: I have personally seen and independently examined Sebastian Hannon on June 15, 2025 and I agree with the physical exam as stated above. I have personally reviewed all available clinical data related to today's encounter including, but not limited to, radiology images and reports, laboratory data, and procedure reports. I agree with the advanced practitioner's findings and have been fully involved in formulation of the assessment and plan. Sebastian Hannon is a 89 y.o. male with a past medical history of melanoma on immunotherapy (last 05/21/25), HF, afib with pacemaker (on coumadin), and HLD who presented to the hospital with nausea, decreased appetite, fatigue. 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 The patient and his daughter understand discharging to a SNF will delay cancer treatment with the risk of disease progression however recognize a SNF is the safest option for him at discharge and the best chance to optimize his performance status with hope he may continue systemic therapy at some point in the future. - Appreciate SW assistance with SNF - See advanced provider's note for details. Sebastian Day MD Filter Press Tender of Internal Medicine, Clinical Division of Hospital Medicine, Department of Internal Medicine [facility] Occupational Therapy Attempt Note 06/15/2025 OT Therapy Completed: Attempted Attempted Reason: Patient declined session; Not right now I already got up this morning . Encouragement from daughter and therapist to work with therapy; ADLs offered, pt continues to decline. Magalys Zapata, OT Time In: 1210 Time Out: 1214 Total Visit Time: 4 minutes Total Treatment Time (skilled, billable minutes): 0 minutes Summary: Follow-Up Discharge Plan SW Discharge Plan Follow Up: Estimated Discharge Date: To be determined Referred Level of Care: [facility] Facility or Home w/ HHC Discharge Considerations: Medical stability Tx plan Facility choice Transportation Referral Status: SW to place a referral as appropriate. COVID Testing Requirements: Pending facility choice Discharge Transportation: To be determined Plan: Discharge plans have not been finalized at this time. Addendum 1045 hours: Patient was discussed in Rounds. Patient and daughter have decided to discharge to SNF, and postpone any consideration for tx at this time to allow Patient to get stronger. SW placed referral for SNF level of care. SW will follow up as appropriate. Addendum 1300 hours: SW in communication with SNF regarding status of their review. Addendum 1400 hours: SW spoke with [facility] who will complete review. Addendum 1515 hours: SW in communication with SNF who indicated that clinically Patient appears appropriate however they won't have bed availability until early next week. SNF stated that the will have an update regarding bed availability Wednesday at 1200 hours. SNF was advised that referral to be submitted in [facility] referral system, which they [place] [address] Addendum 1530 hours: SW met with daughter and provided an update. Daughter expressed the desire to await bed availability early next week as Patient has been there before and its close to his home. Daughter stated the ability to provide transport Wednesday after work / 1500 hours. Team was updated. JOJO Andrade LISW-S Wire Technician, Cancer Medicine ([facility]) [facility] For Evening (4:30pm-8am) and Weekend SW needs please call [phone] or page [phone] Acute Physical Therapy Treatment Prior Gross Functional Mobility: independent Current AM-PAC score(s): CURRENT AM-PAC Mobility Raw Score: 14 Based on the above AM-PAC score(s) and PT clinical judgment, patient is a good candidate for discharge to [facility] Facility Barriers to discharge home: Lack of supervision necessary to mitigate fall risk, Patient needs assistance with functional mobility, Patient needs assistance with IADLs (see note below) Mobility equipment available at home: front-wheeled walker ADL equipment available at home: grab bars (by the toilet) Equipment needed for discharge: 4 wheeled walker Current therapy frequency recommendation in acute: PT Therapy Frequency: 5 times a week Activity Recommendations for outside of rehab session: up with x1 assist with FWW and gait belt Precautions and Weightbearing Status: Existing Precautions/Restrictions: fall Lines/Tubes/Drains (Rehab Status): No critical lines at this time Patient Safety Communication Prior to Visit: Nursing Subjective: pt greeted in bed, agreeable to therapy with encouragement Pain: General Pain Documentation (Adult, OB, Peds) Presence of Pain: reports pain/discomfort Pain Location: knee, left, knee, right Objective/Observation: Vitals/Vitals Responses to Treatment: no adverse reactions O2 Device: room air Cognition Overall Cognitive Status: Within Functional Limits Arousal/Alertness: Appropriate responses to stimuli Orientation Level: Oriented to person, Not assessed Following Commands: Follows one step commands with increased time, Follows one step commands with repetition Safety Judgment: Decreased awareness of need for assistance, Decreased awareness of need for safety Awareness of Errors: Assistance required to correct errors made, Decreased awareness of errors Deficits: Decreased awareness of deficits Attention Span: Appears intact Extremity Assessments: See PT Evaluation flowsheet for Extremity Measurement updates. Skin and Edema: Balance: Sitting Balance Static Sitting-Level of Assistance: Standby Dynamic Sitting-Level of Assistance: Standby Skilled Rationale: Positioning, Verbal cues, Hand placement, Full extension to upright positioning/posture Sitting Balance Skilled Intervention/Details: increased time and cues needed to scoot hips forward at EOB; intermittent difficulty with sequencing Standing Balance Static Standing-Level of Assistance: Contact guard, Minimum assistance Dynamic Standing-Level of Assistance: Minimum assistance, Moderate assistance Standing-Balance Support: Gait belt, Front-wheeled walker Skilled Rationale: Positioning, Sequencing, Verbal cues, Hand placement, Full extension to upright positioning/posture Standing Balance Skilled Intervention/Details: performed x4 stands total with CGA to MOD A to maintain balance; demos increased retropulsion initially but improves with increased time. Duration of ea stand lasting between 1-2 min but limited by fatigue and requires frequent sitting rest breaks Mobility Assessment/Intervention: Supine to Sit Mobility Lamb Level: Supine->Sit: moderate assist (50% patient effort) Bed Features/Set-up: Supine->Sit: Head of bed elevated, Use of bed rail Skilled Rationale: Positioning, Sequencing, Hand placement, Verbal cues, Full extension to upright positioning/posture, Technique of activity, Cues for increased safety, Initiation and execution of task Skilled Intervention/Details: Supine->Sit: x1 to R with increased time and cues to sequence/initiate; pt with more difficulty advancing BLE over EOB compared to last session Transfer Assessment/Intervention: Sit to Stand Transfer Lamb Level: Sit->Stand: (CG to MOD Ax1) Assistive Device: Sit->Stand: gait belt, front-wheeled walker Skilled Rationale: Positioning, Sequencing, Verbal cues, Hand placement, Tactile cues, Full extension to upright positioning/posture, Facilitate anterior shift Skilled Intervention/Details: Sit->Stand: x1 from lower surface at EOB; x3 from elevated bed. Fluctuates between CG to MOD A; provided frequent cues to facilitate rocking prior to standing to build momentum though poor carryover noted and needing MOD Ax1 to complete. Pt benefited from simple commands stand up by yourself , and pt was able to complete with CGA Stand to Sit Transfer Lamb Level: Stand->Sit: minimum assist (75% patient effort) Assistive Device: Stand->Sit: gait belt, front-wheeled walker Skilled Rationale: Positioning, Hand placement, Verbal cues, Tactile cues, Controlled descent for sitting Skilled Intervention/Details: Stand->Sit: cues to position hips closer to EOB prior to sitting; x4 to bed, x1 to chair Gait/Functional Mobility Assessment/Intervention: Gait Assessment Lamb Level: Gait: minimum assist (75% patient effort) Assistive Device: Gait: gait belt, front-wheeled walker Ambulation Distance (Feet): 40 Gait Deviations Identified: decreased gait speed, decreased step length, flexed posture, increased knee flexion, increased postural sway Gait Skilled Rationale: verbal, upright posture, increase step length Skilled Intervention/Details - Gait: requires cues for upright posture to reduce retropulsion; distance limited by fatigue Stairs Assessment/Intervention: Outcome Score(s): CURRENT [facility] Basic Mobility Inpatient Short Form Turning over in bed: 3 - A Little Assistance Moving from lying on back to sittin - A Little Assistance Moving to and from bed to chair: 2 - A Lot of Assistance Sitting/standing from chair: 2 - A Lot of Assistance Walk in hospital room: 3 - A Little Assistance Climbing 3-5 steps with a railin - Total Assistance CURRENT [facility] Mobility Raw Score: 14 CURRENT [facility] Mobility Functional Limitation: 61.29% Impaired in Basic Mobility Interventions: Intervention 1 Intervention Name: supine and seated HEP Sets/Reps/Duration: x10 min Details: provided supine and seated HEP handouts with detailed explanation and demonstration of ea exercise; instructed to perform 3x10 reps daily to prevent further decline in strength Intervention 2 Intervention Name: standing marches Sets/Reps/Duration: x10 ea LE Details: performed to progress LE strength and balance. Requires MIN A at trunk and FWW to complete safely; cues to maintain attention to task Assessment & Plan: Pt with fair tolerance of session with focus on bed mobility, standing balance/endurance, transfers, gait, and therapeutic exercise. Pt demos improved tolerance to activity this session as he tolerates multiple standing trials. Pt continues to be limited by fluctuations in strength and decreased safety with mobility, requiring x1 person physically assisting him OOB and to maintain balance in standing. Pt would continue to benefit from skilled PT to improve independence with functional mobility to allow progression towards established PT goals/POC. Patient Instruction/Education this session: Learners: Patient Education provided: Home exercise program, Handout provided and reviewed Teaching method: Verbal Education/Instruction Learner response: Needs review Learning preferences: Auditory Learning considerations: Hearing Impairment Plan for next session: progress LE strength, balance, ambulation Acute PT Goals Plan of Care by Elsa Valencia PT at 06/15/2025 7:58 AM Version 1 of 1 Problem: PT - General Goals Goal: Supine <-> Sit Transfers - Patient will perform supine to/from sit transfers with independence and without use of hospital bed features in order to improve functional mobility and safety. Outcome: Ongoing Goal: Sit <-> Stand Transfers - Patient will perform sit to/from stand transfers with modified independence and least restrictive device in order to improve functional mobility and safety. Outcome: Ongoing Goal: Standing Endurance/Balance - Patient will perform standing balance tasks for 10 min with modified independence and least restrictive device while maintaining an RPE of less than 3/10 to improve endurance and safety with standing tasks. Outcome: Ongoing Goal: Ambulation - Patient will ambulate 250 feet with modified independence and least restrictive device to improve ability to safely navigate home and community. Outcome: Ongoing Goal: Strength - Patient will adhere to understanding of exercise program. Outcome: Ongoing PT treatment consisted of the following to progress towards the above goal(s): PT Evaluation and Treatment Time Therapeutic Exercise Time Entry: 9 Therapeutic Activity Time Entry: 20 Gait Training Time Entry: 10 Treating Therapist: Elsa Valencia PT Additional Details: PT Co-Eval/Treatment Information Co-evaluation/co-treatment performed?: No simultaneous skilled care performed PPE used during patient interaction: gloves Patient location at end of session: chair Alarms on at end of session: chair alarm Needs in reach. Time In: 0758 Time Out: 0837 Total Visit Time: 39 minutes Total Treatment Time (skilled, billable minutes): 39 minutes Upon discontinuation of Acute Care Physical Therapy Services or patient discharge from the hospital this note represents the current Physical Therapy Discharge Summary. CANCER MEDICINE INPATIENT PROGRESS NOTE TODAY'S DATE: 06/14/2025 ADMIT DATE: 06/10/2025 5:34 PM REASON FOR ADMISSION: Anorexia Oncology Team: Dr. Walsh ASSESSMENT AND PLAN Sebastian Hannon is a 89 y.o. 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 ACUTE PROBLEMS FTT Poor PO Intake Nausea - He is currently undergoing immunotherapy for melanoma, with the first dose administered on 05/21/2025. Initially, he responded well to the treatment and was able to live independently. However, during a recent visit, it was observed that he had lost approximately 3 to 4 pounds and his appetite had significantly decreased. He has been experiencing some nausea. Reports generalized weakness and dyspnea on exertion, possibly related to fatigue, poor intake, and immunotherapy. 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 Since he's malnourished and without respiratory concerns, he's ok to stay on his current diet but recommend MBS MBS (06/13): cleared for regular solids with thin liquid. However, has oral dysphagia and etiology is unclear at this time. Question if malnutrition/failure to thrive is contributing to increased weakness and reduced oral efficiency. Also question if possible cranial nerve involvement presumed reduced sensation. Swallow safety is preserved; oral swallow efficiency is impaired. 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 He received his first dose on 05/21. He remains asymptomatic and denies diaphoresis, palpitations, anxiety or tremulousness. He had a CTPE on 06/09 however his thyroid function labs were drawn before the iodine contrast load, thus they should have not been impacted. - Endo consult: In light of mild clinically disease and given the temporary character of the ICI driven thyroiditis, we will pursue monitoring for the moment and repeat of labs in a week. Repeat Thyroid function labs: TSH and fT4 in 1 week (repeat on 06/18, ordered) Follow TSI antibodies (ordered) - Continue to monitor for symptom development Hx of Systolic HF Demand ischemia (Elevated BPN/Troponin) in the setting of dehydration, CKD Hx Pulmonary Hypertension Hx CAD s/p cardiac bypass Hx Bioprosthetic mitral valve replacement Pt reports ELIZABETH and fatigue but currently on RA. Denies chest pain. - Trop trending up in ED [id number]. Peaked 06/10, no longer trending - BNP 4511 - Last Echo EF 35%. RVSP 69 mmHg on echocardiogram. - Cardiology consult: BNP level is elevated and troponin is slightly elevated, this seems more in line with his kidney disease and decreased intake rather than ACS or HF exacerbation. I do think that there is a long standing pulmonary hypertension component to his symptoms. A RHC in February showed elevated left sided pressures as well as elevated pulmonary pressures, supporting group 2 PH. He is on adequate diuretics and GDMT from this standpoint. Uncertain how the diagonal fistula would factor into his long-standing symptoms, but does not seem to be causing anginal symptoms Recommend holding Lasix until euvolemic. May need to re-assess his Lasix maintenance dose given his decreased appetite. Can restart with 40 mg Lasix PO daily (reduced from home dose of 60 mg) - Repeat echo (06/11): EF 45%, RVSP 65 mmHg Last echo showed similar RVSP so cards does not recommend pulm HTN evaluation inpatient - Cont amlodipine, losartan, aldactone, toprol xl, and lasix - Touched base with cards and they recommend resuming lasix at lower dose of 40 mg every other day given Cr remains stable and prefer him to be more dry given pulm HTN (resumed 06/13) - Needs pulm HTN FU OP Deconditioning - PT/OT consult: rec home with [facility] originally - Now recommending SNF 06/13 Metastatic Melanoma - Follows with Dr. Walsh - Currently on immunotherapy with opdualag (last 05/21/25) - Dr. Walsh updated via email 06/11 - FU [facility] 06/21 Quality Self-Check Complexity. Malnutrition - Severe Protein-Calorie Malnutrition (POA) (06/11/2025 12:36 PM) secondary to Acute Illness / Injury (06/11/2025 12:36 PM) - Reviewed and agree with registered nursing professor's recommendations. Wound Documentation Any conditions listed below are present on admission unless otherwise specified. .Metastatic Cancer, Location of Metastasis - see above for additional details Body mass index is 22.62 kg/m . RESOLVED PROBLEMS Hyponatremia - resolved - Na 134 on 06/12 - Urine lytes and osmol suggest 2/2 diuretic use - Initially held lasix as above - Held on IVF given PO intake improving 06/12 and hx HF - Daily chem Hx of Afib Supratherapeutic INR - resolved - On home Warfarin 5mg daily. Follows with OP warfarin clinic. - Held 06/10, 06/11, 06/12 warfarin dose for supratherapeutic INR of 3.9. - INR decreased to 3.0 06/13 - No overt signs/symptoms of bleeding - Cont toprolol XL - Will give Coumadin 6 mg once today, them tomorrow Coumadin 4 mg - Monitor daily INR until therapeutic for 2 consecutive days, then every 2 days for 14 days or until discharged. Maintain goal INR 2-3 - Needs OP warfarin clinic FU scheduled CHRONIC PROBLEMS RA - Cont home hydroxychloroquine - [facility] referred patient to Dr. Desai for evaluation of RA management with immunotherapy - FU Dr. Desai 06/21 CKD Stage 2 - Baseline Cr appears ~ 1.3 - Avoid nephrotoxic meds - Daily chem DVT prophylaxis: home warfarin resumed 06/13 with dose reduction as above Diet: DIET REGULAR Liquid Thin (IDDSI 0) Continuous Infusions: Code Status: Full Code Fall Risk: Assessed for patient fall risk and discussed safety measures during rounding. CENTRAL LINES: None Serious Illness Conversation: None Disposition: The patient will require continued hospitalization for poor PO intake, discharge planning to SNF. They are expected to discharge to alf facility. Today they are expected to be medically ready for discharge on TBD. Follow-ups made: Dr. Desai 06/21, Dr. Walsh ([facility]) 06/21 Follow-ups needed: TBD SUBJECTIVE No acute events overnight. Patient seen resting in bed. Patient states he was out of bed for breakfast. Patient states his legs hurt which decreases his mobility. Patient currently denies fever, chills, FLEMING, chest pain, SOB, vomiting, and diarrhea. All questions/concerns answered. Remainder of ROS queried and negative. Talked to patient and daughter extensively about going home vs going to SNF. Conversations ongoing. OBJECTIVE Temp: [96.8 F (36 C)-98.1 F (36.7 C)] 97.6 F (36.4 C) Pulse (Heart Rate): [62-79] 62 Resp Rate: [16-20] 18 BP: (122-146)/(60-70) 145/64 O2 Sat (%): [94 %-99 %] 98 % Weight: [71.5 kg (157 lb 10.1 oz)] 71.5 kg (157 lb 10.1 oz) General: A&O to self, time, place, and situation. NAD. HEENT: EOMI, anicteric sclerae, conjunctivae & lids symmetrical. No signs of inflammation. Neck no rigidity. Not ALATNA. Respiratory: Clear to auscultation bilaterally, no crackles/rhonchi/wheezes, no increased WOB. On RA Cardiovascular: Afib, no murmurs, 1+ pitting edema BLE (L>R). Abdomen: Normoactive BS. Abdomen soft, nontender, nondistended. No palpable masses. Neurologic: CN II-XII grossly intact. No focal deficits. Speech coherent. Follows commands. Skin: Chronic brawny discoloration of BLE (L>R). Psychosocial: Affect appropriate PIV with no evidence of erythema, drainage, or tenderness. Dressing is clean, dry, and intact. Plan of care reviewed with the attending, Dr. Sebastian Day MD: in agreement. Khris Levine APRN-LUCIA Pager: [phone] The provider may be reached from 7a-7p at pager listed on QGenda. After these hours please page the cadmium liquor maker or moonlighter. Cosigned by Sebastian Day MD at 06/14/2025 5:38 PM EDT Associated attestation - Sebastian Day MD - 06/14/2025 5:38 PM EDT Attending Attestation: I have personally seen and independently examined Sebastian Hannon on June 14, 2025 and I agree with the physical exam as stated above. I have personally reviewed all available clinical data related to today's encounter including, but not limited to, radiology images and reports, laboratory data, and procedure reports. I agree with the advanced practitioner's findings and have been fully involved in formulation of the assessment and plan. Sebastian was more interactive today on rounds. He endorses leg pain when walking but controlled while laying still. Long discussion during morning rounds with patient, [facility] MY Zackaryra Levine, and patient's daughter Tricia via phone. Our discussion included his current performance status and need for SNF where he would not be able to receive continued systemic therapy risking disease progression, but would optimize his chances of increasing his performance status versus discharging to home with home health where he may be able to continue systemic therapy if his performance status improves but is not the optimal setting for that to happen. She did note while he was previously able to get around at home slowly with a walker, recently in the hospital he is having trouble even with opening food containers. Although it carries the risk of disease progression, If his performance status is too low to continue systemic therapy now, then his only option remaining to pursue treatment may be to discharge to SNF for continued physical therapy first. We are appreciate continued PT/OT assessment. Sebastian Hannon is a 89 y.o. male with a past medical history of melanoma on immunotherapy (last 05/21/25), HF, afib with pacemaker (on coumadin), and HLD who presented to the hospital with nausea, decreased appetite, fatigue. 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 Sebastian Day MD [employer] of Internal Medicine, Clinical Division of Hospital Medicine, Department of Internal Medicine [facility] Physical Therapy Attempt Note 06/14/2025 PT Therapy Completed: Attempted Attempted Reason: Patient declined session (attempted x2, pt with providers at bedside during first attempt, then pt politely declined session during second attempt. Will reattempt as able) Elsa Valencia PT Time In: 1206 Time Out: 1212 Total Visit Time: 6 minutes Total Treatment Time (skilled, billable minutes): 0 minutes Occupational Therapy Attempt Note 06/14/2025 OT Therapy Completed: Attempted Attempted Reason: Other (see comments) (Medical team walking into pt's room at this time, will re-attempt as able.) Magalys Zapata OT Time In: 1101 Time Out: 1101 Total Visit Time: 0 minutes Total Treatment Time (skilled, billable minutes): 0 minutes Acute Physical Therapy Treatment Prior Gross Functional Mobility: independent Current AM-PAC score(s): CURRENT AM-PAC Mobility Raw Score: 14 Based on the above AM-PAC score(s) and PT clinical judgment, patient is a good candidate for discharge to [facility] Facility Barriers to discharge home: Lack of supervision necessary to mitigate fall risk, Patient needs assistance with IADLs (see note below), Patient needs assistance with functional mobility Mobility equipment available at home: front-wheeled walker ADL equipment available at home: grab bars (by the toilet) Equipment needed for discharge: 4 wheeled walker Current therapy frequency recommendation in acute: PT Therapy Frequency: 5 times a week Activity Recommendations for outside of rehab session: up with x1 assist with FWW and gait belt Precautions and Weightbearing Status: Existing Precautions/Restrictions: fall Lines/Tubes/Drains (Rehab Status): No critical lines at this time Patient Safety Communication Prior to Visit: Nursing Subjective: pt greeted in bed, agreeable to PT treatment. States he would like to use the bathroom Pain: General Pain Documentation (Adult, OB, Peds) Presence of Pain: denies pain/discomfort Presence of Pain Score (Auto-calculated): 0 Objective/Observation: Vitals/Vitals Responses to Treatment: VSS O2 Device: room air Cognition Overall Cognitive Status: Within Functional Limits Arousal/Alertness: Appropriate responses to stimuli Orientation Level: Oriented to person, Not assessed Following Commands: Follows one step commands with increased time Safety Judgment: Decreased awareness of need for safety Awareness of Errors: Assistance required to correct errors made Deficits: Decreased awareness of deficits Extremity Assessments: See PT Evaluation flowsheet for Extremity Measurement updates. Skin and Edema: Balance: Sitting Balance Static Sitting-Level of Assistance: Standby Dynamic Sitting-Level of Assistance: Standby Skilled Rationale: Positioning, Verbal cues Sitting Balance Skilled Intervention/Details: increased time, cues and assist needed to scoot hips forward when sitting EOB. No overt LOB when sitting on commode Standing Balance Static Standing-Level of Assistance: Minimum assistance Dynamic Standing-Level of Assistance: Minimum assistance, Moderate assistance Standing-Balance Support: Gait belt, Front-wheeled walker Skilled Rationale: Positioning, Hand placement, Verbal cues, Full extension to upright positioning/posture Standing Balance Skilled Intervention/Details: performed x2 standing trials with FWW to progress balance and endurance. demos increased retropulsion with static and dynamic standing needing MIN to MOD A with tactile cues for forward weight shift to maintain balance. Demos signficiant difficulty completing pericare and LB dressing in standing, requires assist from PT Mobility Assessment/Intervention: Supine to Sit Mobility Lamb Level: Supine->Sit: moderate assist (50% patient effort) Bed Features/Set-up: Supine->Sit: Head of bed elevated, Use of bed rail Skilled Rationale: Positioning, Sequencing, Hand placement, Verbal cues, Tactile cues, Full extension to upright positioning/posture Skilled Intervention/Details: Supine->Sit: x1 to L with increased time and cues at BLE and trunk to faciliate upright sitting Sit to Supine Mobility Lamb Level: Sit->Supine: moderate assist (50% patient effort) Bed Features/Set-up: Sit->Supine: Head of bed elevated, Use of bed rail Skilled Rationale: Positioning, Verbal cues, Hand placement, Technique of activity Skilled Intervention/Details: Sit->Supine: x1 from R with increased time and effort to complete, MOD A to manage BLE over EOB Transfer Assessment/Intervention: Sit to Stand Transfer Lamb Level: Sit->Stand: moderate assist (50% patient effort) Assistive Device: Sit->Stand: gait belt, front-wheeled walker Skilled Rationale: Positioning, Hand placement, Verbal cues, Full extension to upright positioning/posture Skilled Intervention/Details: Sit->Stand: x1 from EOB and x1 from toilet with cues for hand placement. Demos difficulty with carryover and requires MOD Ax1 to achieve upright posture d/t retropulsion Stand to Sit Transfer Lamb Level: Stand->Sit: minimum assist (75% patient effort) Assistive Device: Stand->Sit: front-wheeled walker, gait belt Skilled Rationale: Positioning, Sequencing, Hand placement, Verbal cues, Controlled descent for sitting Skilled Intervention/Details: Stand->Sit: x1 to toilet, x1 to EOB with slight decrease in safety awareness. Pt unable to maintain FWW within LOUIS and begins to sit prior to hips being safely positioned when pivoting to EOB Gait/Functional Mobility Assessment/Intervention: Gait Assessment Lamb Level: Gait: minimum assist (75% patient effort) Assistive Device: Gait: gait belt, front-wheeled walker Ambulation Distance (Feet): 30 Gait Deviations Identified: decreased baylee, decreased gait speed, increased postural sway, increased knee flexion, flexed posture, narrow base of support Gait Skilled Rationale: verbal, upright posture, keeping hands on assistive device, hand placement on assistive device Skilled Intervention/Details - Gait: seated rest on commode between trials; demos wide LOUIS and increased sway needing MIN Ax1 to maintain balance. Distance limited by fatigue Wheelchair Assessment Patient currently uses wheelchair?: No Stairs Assessment/Intervention: Outcome Score(s): CURRENT [facility] Basic Mobility Inpatient Short Form Turning over in bed: 3 - A Little Assistance Moving from lying on back to sittin - A Lot of Assistance Moving to and from bed to chair: 2 - A Lot of Assistance Sitting/standing from chair: 2 - A Lot of Assistance Walk in hospital room: 3 - A Little Assistance Climbing 3-5 steps with a railin - A Lot of Assistance CURRENT [facility] Mobility Raw Score: 14 CURRENT [facility] Mobility Functional Limitation: 61.29% Impaired in Basic Mobility Interventions: Assessment & Plan: Pt with fair tolerance of session with focus on bed mobility, standing balance/endurance, transfers, and gait. Pt demos mild regression in mobility as he requires increased assist for bed mobility and transfers. Pt also continues to be limited by retropulsion in standing, placing him at increased risk of falls. Pt would continue to benefit from skilled PT to improve independence with functional mobility to allow progression towards established PT goals/POC. Patient Instruction/Education this session: Learners: Patient Education provided: Functional transfers, Gait training safety Teaching method: Verbal Education/Instruction Learner response: Applies knowledge Learning preferences: Auditory Learning considerations: Hearing Impairment Plan for next session: progress standing balance, ambulation Acute PT Goals Plan of Care by Elsa Valencia PT at 06/13/2025 1:50 PM Version 1 of 1 Problem: PT - General Goals Goal: Supine <-> Sit Transfers - Patient will perform supine to/from sit transfers with independence and without use of hospital bed features in order to improve functional mobility and safety. Outcome: Ongoing Goal: Sit <-> Stand Transfers - Patient will perform sit to/from stand transfers with modified independence and least restrictive device in order to improve functional mobility and safety. Outcome: Ongoing Goal: Standing Endurance/Balance - Patient will perform standing balance tasks for 10 min with modified independence and least restrictive device while maintaining an RPE of less than 3/10 to improve endurance and safety with standing tasks. Outcome: Ongoing Goal: Ambulation - Patient will ambulate 250 feet with modified independence and least restrictive device to improve ability to safely navigate home and community. Outcome: Ongoing PT treatment consisted of the following to progress towards the above goal(s): PT Evaluation and Treatment Time Therapeutic Activity Time Entry: 15 Gait Training Time Entry: 10 Treating Therapist: Elsa Valencia PT Additional Details: PT Co-Eval/Treatment Information Co-evaluation/co-treatment performed?: No simultaneous skilled care performed PPE used during patient interaction: gloves Patient location at end of session: bed with head of bed elevated Alarms on at end of session: bed alarm Needs in reach. Time In: 1350 Time Out: 1415 Total Visit Time: 25 minutes Total Treatment Time (skilled, billable minutes): 25 minutes Upon discontinuation of Acute Care Physical Therapy Services or patient discharge from the hospital this note represents the current Physical Therapy Discharge Summary. Physical Therapy Attempt Note 06/13/2025 PT Therapy Completed: Attempted Attempted Reason: Patient is unavailable due to test/procedure (pt being transported off the floor, will reattempt as able) Elsa Valencia PT Time In: 1107 Time Out: 1107 Total Visit Time: 0 minutes Total Treatment Time (skilled, billable minutes): 0 minutes Acute Occupational Therapy Treatment Prior Gross Functional Mobility: independent Current AM-PAC score(s): CURRENT AM-PAC Activity Raw Score: 16 Based on the above AM-PAC score(s), and OT clinical judgment, discharge destination recommendation is: [facility] Facility Barriers to discharge home: Patient needs assistance with functional mobility, Patient needs assistance with ADLs, Patient needs assistance with IADLs (see note below) Mobility equipment available at home: front-wheeled walker ADL equipment available at home: grab bars (by the toilet) Equipment recommendations for discharge: shower chair Equipment issued: none Current therapy frequency recommendation(s) in acute: 5 times a week Activity Recommendations for outside of rehab session: up with x1 assist with FWW and gait belt Precautions and Weightbearing Status: OT Existing Precautions/Restrictions: fall Lines/Tubes/Drains (Rehab Status): No critical lines at this time Patient Safety Communication Prior to Visit: Nursing Subjective: Family inquiring about discharge recommendations; pt agreeable to OT session this date. Pain: General Pain Documentation (Adult, OB, Peds) Presence of Pain: denies pain/discomfort Presence of Pain Score (Auto-calculated): 0 Objective/Observation: Vitals/Vitals Responses to Treatment: No adverse reactions during session. O2 Device: room air Cognition Overall Cognitive Status: Within Functional Limits Arousal/Alertness: Appropriate responses to stimuli Orientation Level: Oriented to person, Not assessed Following Commands: Follows one step commands without difficulty Safety Judgment: Decreased awareness of need for safety, Decreased awareness of need for assistance Awareness of Errors: Assistance required to identify errors made, Assistance required to correct errors made Deficits: Fully aware of deficits Attention Span: Appears intact ADL Assessment/Intervention: ADLs: ADL Assessment: LE Dressing Deficit, Grooming Deficit Grooming Assistance: Contact guard assist Grooming Location: standing at sink Grooming Deficit: Increased time to complete, Activity tolerance, Generalized weakness, Balance, Wash/dry face Grooming Skilled Rationale (Verbal/Tactile/Visual/Demonstrat ion): Setup, Supervision, Cues for increased safety, Facilitate postural control, Facilitate positioning Grooming Intervention/Details: Standing at sink performing face washing; increased postural sway noted. Cues for unilateral support on sink. LE Dressing Assistance: Moderate LE Dressing Location: edge of bed, standing LE Dressing Deficit: Increased time to complete, Activity tolerance, Generalized weakness, Thread RLE into pants, Thread LLE into pants, Don/doff L sock, Don/doff R sock, Balance LE Dressing Skilled Rationale (Verbal/Tactile/Visual/Demonstrat ion): Supervision, Setup, Cues for increased safety, Facilitate postural control, Facilitate positioning LE Dressing Intervention/Details: Patient flexing anteriorly to doff socks; CGA for doff, mod A to inge with increased time and effort. Patient attempting to inge jeans; mod A to thread over bilateral LE's, min A to door puller hips in standing. Extremity Assessments: See OT Evaluation flowsheet for Extremity Measurement updates. Balance: Sitting Balance Static Sitting-Level of Assistance: Standby Dynamic Sitting-Level of Assistance: Contact guard Skilled Rationale: Verbal cues, Full extension to upright positioning/posture, Cues for increased safety Sitting Balance Skilled Intervention/Details: Seated at EOB flexing forward to inge socks and pants with CGA- cues for safety Standing Balance Static Standing-Level of Assistance: Contact guard Dynamic Standing-Level of Assistance: Contact guard, Minimum assistance Standing-Balance Support: Gait belt, Front-wheeled walker Skilled Rationale: Positioning, Verbal cues, Hand placement, Full extension to upright positioning/posture, Cues for increased safety Standing Balance Skilled Intervention/Details: Patient standing at sink for ~3-5 minutes to perform face washing; increased postural sway noted. Seated rest break after task completion due to fatigue. Skin and Edema: Skin Integrity Skin Integrity Description: WFL Edema Edema: none noted Mobility Assessment/Intervention: Supine to Sit Mobility Lamb Level: Supine->Sit: moderate assist (50% patient effort) Bed Features/Set-up: Supine->Sit: Head of bed elevated, Use of bed rail Skilled Rationale: Positioning, Hand placement, Verbal cues, Technique of activity, Cues for increased safety, Initiation and execution of task, Tactile cues Skilled Intervention/Details: Supine->Sit: x1 to L side of bed, min A for advancement of LE's off bed, max A to advacnce trunk with cues for use of bed rail Sit to Supine Mobility Lamb Level: Sit->Supine: not tested Skilled Intervention/Details: Sit->Supine: Pt seated in armed chair at end of session Transfer Assessment/Intervention: Sit to Stand Transfer Lamb Level: Sit->Stand: moderate assist (50% patient effort) Assistive Device: Sit->Stand: gait belt, front-wheeled walker Skilled Rationale: Positioning, Hand placement, Verbal cues, Full extension to upright positioning/posture, Cues for increased safety Skilled Intervention/Details: Sit->Stand: x1 from EOB, cues for hand placement with poor carryover; increased assistance and time to rise into standing. Stand to Sit Transfer Lamb Level: Stand->Sit: contact guard assist Assistive Device: Stand->Sit: gait belt, front-wheeled walker Skilled Rationale: Sequencing, Positioning, Hand placement, Verbal cues, Controlled descent for sitting, Technique of activity, Initiation and execution of task, Cues for increased safety Skilled Intervention/Details: Stand->Sit: x1 to armed chair; cues for safety and positioning of 2ww as pt abandoning prior to arrival Toilet Transfer Lamb Level: Toilet: moderate assist (50% patient effort) Assistive Device: Toilet: gait belt, bedside commode, front-wheeled walker Skilled Rationale: Positioning, Hand placement, Verbal cues, Controlled descent for sitting, Technique of activity, Initiation and execution of task, Cues for increased safety Skilled Intervention/Details: Toilet: x1 from BSC; cues for hand placement. Increased time to rise. Functional Mobility: Functional Mobility Lamb Level: Functional Mobility/Gait: contact guard assist Assistive Device: Functional Mobility/Gait: gait belt, front-wheeled walker Functional Mobility Distance: Distance needed to access restroom Ambulation Distance (Feet): 30 Functional Mobility Deficits: Activity tolerance, Balance, Decreased step length, Generalized weakness, Slowed gait speed Functional Mobility Skilled Rationale: Facilitate positioning, Facilitate postural control, Verbal cues Skilled Intervention/Details - Functional Mobility/Gait: Patient completing short bout of functional mobility into bathroom with use of 2ww; slowed gait speed, cues for upright posture and gaze. Outcome Score(s): CURRENT -[facility] Daily Activity Inpatient Short Form Putting on/Taking Off Lower Body Clothin - A Lot of Assistance Bathin - A Lot of Assistance Toiletin - A Lot of Assistance Putting on/Taking Off Upper Body Clothin - A Little Assistance Groomin - A Little Assistance Eatin - No Assistance CURRENT -[facility] Activity Raw Score: 16 CURRENT -[facility] Activity Functional Limitation/Modifier: 53.32% Currently Impaired in Daily Activity - CK Assessment & Plan: Patient making no progress towards OT goals this date; requires increased assistance with bed mobility, transfers and ADLs this date. Discussion with family about SNF placement vs home with home health due increased need for assistance, lack of supervision/assistance at home. Patient would continue to benefit from skilled OT services to progress towards highest level of function. Patient Instruction/Education this session: Learners: Patient Education provided: Safety, Role of this discipline, Plan of care, Activity outside of therapy, Discharge recommendations Teaching method: Verbal Education/Instruction Learner response: Applies knowledge Learning preferences: Auditory Learning considerations: No barriers/ready to learn Plan for next session: bathing/dressing routine, progress functional mobility Acute OT Goals Plan of Care by Magalys Zapata OT at 06/13/2025 8:06 AM Version 1 of 1 Problem: OT - ADLs Goal: Lower Body Dressing - Patient will complete lower body dressing tasks with modified independence using adaptive equipment/compensatory strategies as needed for improved ability to complete self-care activities. Outcome: Ongoing Problem: OT - Balance Goal: Balance - Standing - Patient will perform 10+ minutes of functional task in standing with modified independence and good balance to promote safety and improved balance required for self-care activities. Outcome: Ongoing Problem: OT - Endurance Goal: Endurance Functional Mobility - Patient will complete distance needed for common household mobility with modified independence, LRD and no needed rest breaks for improved tolerance to safely complete I/ADL's Outcome: Ongoing OT treatment consisted of the following to work and progress towards the above goal(s): OT Evaluation and Treatment Time Self Care/Home Management (ADLs) Time Entry: 30 Therapeutic Activity Time Entry: 10 Treating Therapist: Magalys Zapata OT Additional Details: OT Co-Eval/Treatment Information Co-evaluation/co-treatment performed?: No simultaneous skilled care performed PPE used during patient interaction: gloves Patient location at end of session: chair Alarms on at end of session: chair alarm Needs in reach. Time In: 805 Time Out: 845 Total Visit Time: 40 minutes Total Treatment Time (skilled, billable minutes): 40 minutes Upon discontinuation of Acute Care Occupational Therapy Services or patient discharge from the hospital this note represents the current Occupational Therapy Discharge Summary. CANCER MEDICINE INPATIENT PROGRESS NOTE TODAY'S DATE: 06/13/2025 ADMIT DATE: 06/10/2025 5:34 PM REASON FOR ADMISSION: Anorexia Oncology Team: Dr. Walsh ASSESSMENT AND PLAN Sebastian Hannon is a 89 y.o. 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 ACUTE PROBLEMS FTT Poor PO Intake Nausea - He is currently undergoing immunotherapy for melanoma, with the first dose administered on 05/21/2025. Initially, he responded well to the treatment and was able to live independently. However, during a recent visit, it was observed that he had lost approximately 3 to 4 pounds and his appetite had significantly decreased. He has been experiencing some nausea. Reports generalized weakness and dyspnea on exertion, possibly related to fatigue, poor intake, and immunotherapy. 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 Since he's malnourished and without respiratory concerns, he's ok to stay on his current diet but recommend MBS MBS (06/13): cleared for regular solids with thin liquid. However, has oral dysphagia and etiology is unclear at this time. Question if malnutrition/failure to thrive is contributing to increased weakness and reduced oral efficiency. Also question if possible cranial nerve involvement presumed reduced sensation. Swallow safety is preserved; oral swallow efficiency is impaired. 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 He received his first dose on 05/21. He remains asymptomatic and denies diaphoresis, palpitations, anxiety or tremulousness. He had a CTPE on 06/09 however his thyroid function labs were drawn before the iodine contrast load, thus they should have not been impacted. - Endo consult: In light of mild clinically disease and given the temporary character of the ICI driven thyroiditis, we will pursue monitoring for the moment and repeat of labs in a week. Repeat Thyroid function labs: TSH and fT4 in 1 week (repeat on 06/18, ordered) Follow TSI antibodies (ordered) - Continue to monitor for symptom development Hx of Systolic HF Demand ischemia (Elevated BPN/Troponin) in the setting of dehydration, CKD Hx Pulmonary Hypertension Hx CAD s/p cardiac bypass Hx Bioprosthetic mitral valve replacement Pt reports ELIZABETH and fatigue but currently on RA. Denies chest pain. - Trop trending up in ED 85>>94>>123. Peaked 06/10, no longer trending - BNP 4511 - Last Echo EF 35%. RVSP 69 mmHg on echocardiogram. - Cardiology consult: BNP level is elevated and troponin is slightly elevated, this seems more in line with his kidney disease and decreased intake rather than ACS or HF exacerbation. I do think that there is a long standing pulmonary hypertension component to his symptoms. A RHC in February showed elevated left sided pressures as well as elevated pulmonary pressures, supporting group 2 PH. He is on adequate diuretics and GDMT from this standpoint. Uncertain how the diagonal fistula would factor into his long-standing symptoms, but does not seem to be causing anginal symptoms Recommend holding Lasix until euvolemic. May need to re-assess his Lasix maintenance dose given his decreased appetite. Can restart with 40 mg Lasix PO daily (reduced from home dose of 60 mg) - Repeat echo (06/11): EF 45%, RVSP 65 mmHg Last echo showed similar RVSP so cards does not recommend pulm HTN evaluation inpatient - Cont amlodipine, losartan, aldactone, toprol xl, and lasix - Touched base with cards and they recommend resuming lasix at lower dose of 40 mg every other day given Cr remains stable and prefer him to be more dry given pulm HTN (resumed 06/13) - Needs pulm HTN FU OP Deconditioning - PT/OT consult: rec home with [facility] originally - Now recommending SNF 06/13 Metastatic Melanoma - Follows with Dr. Walsh - Currently on immunotherapy with opdualag (last 05/21/25) - Dr. Walsh updated via email 06/11 - FU [facility] 06/21 Quality Self-Check Complexity. Malnutrition - Severe Protein-Calorie Malnutrition (POA) (06/11/2025 12:36 PM) secondary to Acute Illness / Injury (06/11/2025 12:36 PM) - Reviewed and agree with registered nursing professor's recommendations. Wound Documentation Any conditions listed below are present on admission unless otherwise specified. .Metastatic Cancer, Location of Metastasis - see above for additional details Body mass index is 23.63 kg/m . RESOLVED PROBLEMS Hyponatremia - resolved - Na 134 on 06/12 - Urine lytes and osmol suggest 2/2 diuretic use - Initially held lasix as above - Held on IVF given PO intake improving 06/12 and hx HF - Daily chem Hx of Afib Supratherapeutic INR - resolved - On home Warfarin 5mg daily. Follows with OP warfarin clinic. - Held 06/10, 06/11, 06/12 warfarin dose for supratherapeutic INR of 3.9. - INR decreased to 3.0 06/13 - No overt signs/symptoms of bleeding - Resumed warfarin 06/13 at reduced dose of 4 mg - Cont toprolol XL - Monitor daily INR until therapeutic for 2 consecutive days, then every 2 days for 14 days or until discharged. Maintain goal INR 2-3 - Needs OP warfarin clinic FU scheduled CHRONIC PROBLEMS RA - Cont home hydroxychloroquine - [facility] referred patient to Dr. Desai for evaluation of RA management with immunotherapy - FU Dr. Desai 06/21 CKD Stage 2 - Baseline Cr appears ~ 1.3 - Avoid nephrotoxic meds - Daily chem DVT prophylaxis: home warfarin resumed 06/13 with dose reduction as above Diet: DIET REGULAR Continuous Infusions: Code Status: Full Code Fall Risk: Assessed for patient fall risk and discussed safety measures during rounding. CENTRAL LINES: None Serious Illness Conversation: None Disposition: The patient will require continued hospitalization for poor PO intake, discharge planning to SNF. They are expected to discharge to alf facility. Today they are expected to be medically ready for discharge on TBD. Follow-ups made: Dr. Desai 06/21, Dr. Walsh ([facility]) 06/21 Follow-ups needed: TBD SUBJECTIVE No acute events overnight. Patient seen sitting up in chair with son in law at bedside. Reports appetite is worse today than yesterday. Reports some nausea that he feels is contributing to poor PO intake. Reports no BM for a few days. Denies pain. Patient currently denies fever, chills, FLEMING, chest pain, SOB, vomiting, and diarrhea. All questions/concerns answered. Remainder of ROS queried and negative. Discussed plan to use anti emetics prior to eating to promote PO intake and to increase bowel regimen. Also discussed SNF as a possibility on discharge. Patient and family understanding and in agreement. OBJECTIVE Temp: [97.3 F (36.3 C)-99.4 F (37.4 C)] 99.4 F (37.4 C) Pulse (Heart Rate): [63-66] 65 Resp Rate: [16] 16 BP: (121-163)/(53-99) 149/99 O2 Sat (%): [93 %-98 %] 96 % Weight: [74.7 kg (164 lb 10.9 oz)] 74.7 kg (164 lb 10.9 oz) General: A&O to self, time, place, and situation. NAD. HEENT: EOMI, anicteric sclerae, conjunctivae & lids symmetrical. No signs of inflammation. Neck no rigidity. Not ALATNA. Respiratory: Clear to auscultation bilaterally, no crackles/rhonchi/wheezes, no increased WOB. On RA Cardiovascular: Afib, no murmurs, 1+ pitting edema BLE (L>R). Abdomen: Normoactive BS. Abdomen soft, nontender, nondistended. No palpable masses. Neurologic: CN II-XII grossly intact. No focal deficits. Speech coherent. Follows commands. Skin: Chronic brawny discoloration of BLE (L>R). Psychosocial: Affect appropriate PIV with no evidence of erythema, drainage, or tenderness. Dressing is clean, dry, and intact. Plan of care reviewed with the attending, Dr. Sebastian Day MD: in agreement. Cris Rosa PA-C Pager: [phone] The provider may be reached from 7a-7p at pager listed on QGenda. After these hours please page the cadmium liquor maker or moonlighter. Cosigned by Sebastian Day MD at 06/13/2025 8:15 PM EDT Associated attestation - Sebastian Day MD - 06/13/2025 8:15 PM EDT Attending Attestation: I have personally seen and independently examined Sebastian Hannon on June 13, 2025 and I agree with the physical exam as stated above. I have personally reviewed all available clinical data related to today's encounter including, but not limited to, radiology images and reports, laboratory data, and procedure reports. I agree with the advanced practitioner's findings and have been fully involved in formulation of the assessment and plan. Sebastian Hannon is a 89 y.o. male with a past medical history of melanoma on immunotherapy (last 05/21/25), HF, afib with pacemaker (on coumadin), and HLD who presented to the hospital with nausea, decreased appetite, fatigue. 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 Sebastian Day MD Filter Press Tender of Internal Medicine, Clinical Division of Hospital Medicine, Department of Internal Medicine [facility] Summary: Initial Discharge Plan SW Initial Discharge Planning Referral Source: Team Anticipated Level of Care: Home w/ HHC vs SNF Estimated Discharge Date: To be determined Discharge Considerations: Medical stability Tx plan Facility choice Transportation Discharge Discussion: SW met with daughter regarding discharge plans. Daughter requested an update regarding tx as that will dictate if Patient discharges to her home in [place] or to a SNF close to his Home. If SNF, daughter stated a preference for [facility] Coping: Unknown at this time as Patient deferred to daughter. Referral Status: SW explained referral process, and will place a referral as appropriate. Pre-Cert: No Discharge Transportation: To be determined Plan: Discharge plans have not been finalized at this time. JOJO Andrade, BOONE Wire Technician, Cancer Medicine ([facility]) [facility] For Evening (4:30pm-8am) and Weekend SW needs please call [phone] or page [phone] Acute Care Speech-Language Pathology Clinical Swallow Evaluation Clinical Recommendations Method of Nutrition: PO Intake: oral nutrition and hydration Medication Administration: Per patient preference Recommended Diet Grade: regular (IDDSI 7) Recommended Liquid Consistency: liquid- thin (IDDSI 0) Type of Cues/Supervision: none, patient independent with oral intake Other Recommendations: Oral care Inpatient Referrals: Modified Barium Swallow Study (MBS) Therapy frequency recommendation(s) in acute: 3 times a week Discharge destination recommendation: (pending instrumental) Referrals: Modified Barium Swallow Study (MBS) - ambulatory referral Pain General Pain Documentation (Adult, OB, Peds) Presence of Pain: denies pain/discomfort Presence of Pain Score (Auto-calculated): 0 Comfort/Acceptable General Pain Level/Goal: 0 Precautions Lines/Tubes/Drains (Rehab Status): No critical lines at this time Systems Review Acute TELEGRAPHIC TYPEWRITER INSTALLER Outcomes Tracking Communicate basic wants and needs?: yes Demo insight/appreciation of deficits?: yes Complete basic problem solving?: yes Exam limited by cognition?: No Respiratory Status O2 Device: room air O2 Sat (%): 98 % Resp Rate: 16 History of Present Illness: Sebastian Hannon is a 89 y.o. male who was admitted on 06/10/2025 2/2 nausea, decreased appetite, fatigue. 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 No pulmonary embolism. No evidence of acute disease. 2. A few small lung nodules, the largest of which measures 6 mm. 3. Small soft tissue nodule corresponding to the hypermetabolic lesion seen on the prior PET. 4. Cardiomegaly and coronary artery disease.:\ Predisposing dysphagia risk factors: FTT Signs of possible chronic dysphagia: poor PO intake, deconditioning, malnutrition (severe) Precipitating dysphagia risk factors: none known TELEGRAPHIC TYPEWRITER INSTALLER History: None Prior Results: N/a Baseline method of nutrition: Oral nutrition/hydration Regular (IDDSI 7) Liquid - thin (IDDSI 0) Current method of nutrition: Oral nutrition/hydration Regular (IDDSI 7) Liquid- thin (IDDSI 0) Clinical Reasons for Exam: coughing with food Subjective: Asleep upon entry. Agreeable to swallow evaluation. Denied h/o dysphagia or symptoms, then endorsed some coughing with foods. Denied stagnation/globus sensation. Oral Mechanism Exam: Oral Mucosa Healthy appearing mucosa Oral Secretions Normal Dentition Upper denture, Lower denture Face: Sensory Function Did not test Face: Motor Function Symmetrical at rest, Adequate bilateral movement of the face, eyelids and lips Mandible Functional bilateral symmetry, range of motion and perceived strength of masseter and temporal muscles Lips Symmetrical at rest and during movement Tongue Symmetrical, functional range of motion in all planes Soft Palate Symmetrical, bilateral elevation with speech tasks, Uvula is midline Gag Response Did not test Neck and Shoulders (Reduced ROM) Cranial Nerve Impairments None suspected Vocal Quality: GRBAS: A perceptual rating scale for voice parameters Rating scale of 0 to 3 (0 = no impairment, 1 = minimal to mild impairment, 2 = moderate impairment, 3 = severe impairment) Grade: 1 Roughness: 1 Breathiness: 0 Asthenia: 1 Strain: 0 Consistencies tested Delivered via Amount Thin Straw, Cup, Single Sips, Consecutive Drinks ~3 oz total Dysphagia- pureed (IDDSI 4) Spoon 4 tsp Regular solid Self-fed 2 trials (about 1/4 lulu cracker) Position of patient: High Dougherty's (60-90 degrees) Oral Phase Function Pre-Oral Intact Labial Closure Intact Mastication Timely and efficient chewing and mashing Oral Stasis Absent Oral Phase Summary: Functional across trials Pharyngeal Phase Function Perceived Swallow Present Cough Response Yes, Immediate Throat Clear No Subjective Complaint of Residue No Pharyngeal Phase Summary: Coughing with 2/4 puree trials and 1/2 solid trials. None w/thin liquids or iiquid wash. Denied globus. Failed ezra swallow screen 2/2 non consecutive sips suggesting at risk for aspiration [place] Swallow Screen completed by TELEGRAPHIC TYPEWRITER INSTALLER: Screening Exclusion Criteria: none, continue with Ezra Swallow Screening Cognitive Screen: Orientation: able to give name, able to name place Cognitive Screen: Command Following: able to open mouth, able to stick out tongue, able to smile Oral Motor Function : able to close lips, able to move tongue to corners of lips, able to stick out tongue past lips, able to pucker lips and smile 3 oz. Water Swallow Challenge : non-consecutive sips [place] Swallow Screening Result: failed=NPO Swallow Outcomes: Functional Oral Intake Scale (FOIS): Level 7 - Total oral intake with no restrictions Clinical Impression: Sebastian Hannon presents with clinical signs of pharyngeal dysphagia, likely chronic related to chronic dysphagia risk factors (FTT) and likely further exacerbated by severe malnutrition, deconditioning, reduced PO. Instrumental swallow study is indicated. Given pt malnourished and on room air without respiratory concerns, pt ok for oral diet prior to instrumental swallow study. Instrumental: Modified Barium Swallow Study (MBS) Rehab potential: good, to achieve stated therapy goals Plan for next session: [facility] Pt will participate in instrumental swallow study to objectively assess pharyngeal swallow function to determine safest/least restrictive diet recommendations and/or need for compensatory strategies to improve safety with swallowing across x1 session . Patient Education/Instruction Learners: Patient Education provided: Dysphagia risk factors, Dysphagia recommendations/impressions, Dysphagia recommendation risk: benefit analysis, Plan of care Teaching method: Verbal Education/Instruction Learner response: Needs review, Applies knowledge Learning preferences: Auditory Learning considerations: Hearing Impairment Patient Instruction/Education comments: Pt declined FEES, okay with [facility] Speech Language Pathologist: BERTRAM Light Time In: 1305 Time Out: 1317 Total Visit Time: 12 minutes Total Treatment Time (skilled, billable minutes): 12 minutes TELEGRAPHIC TYPEWRITER INSTALLER Co-Eval/Treatment Information Co-evaluation/co-treatment performed?: No simultaneous skilled care performed PPE used during patient interaction: gowclaudia Needs in reach TELEGRAPHIC TYPEWRITER INSTALLER Evaluation and Treatment Time Swallowing Eval 65424: 12 Upon discontinuation of Acute Care Speech Therapy Services or patient discharge from the hospital this note represents the current Speech Therapy Discharge Summary Summary: Advance Directives SW met with Patient and son-in-law per RN request regarding Advance Directives. Family confirmed that documents have already been completed and copies to be provided. Addendum 1630 hours: SW met with daughter to obtain Advance Directives copy, however daughter brought the unsigned copy. Daughter to obtain from their furniture rental consultant and provide as available. JOJO Andrade, BOONE Wire Technician, Cancer Medicine ([facility]) [facility] (4:30pm-8am) and Weekend SW needs please call [phone] or page [phone] CANCER MEDICINE INPATIENT PROGRESS NOTE TODAY'S DATE: 06/12/2025 ADMIT DATE: 06/10/2025 5:34 PM REASON FOR ADMISSION: Anorexia Oncology Team: Dr. Walsh ASSESSMENT AND PLAN Sebastian Hannon is a 89 y.o. 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 ACUTE PROBLEMS FTT Poor PO Intake - He is currently undergoing immunotherapy for melanoma, with the first dose administered on 05/21/2025. Initially, he responded well to the treatment and was able to live independently. However, during a recent visit, it was observed that he had lost approximately 3 to 4 pounds and his appetite had significantly decreased. He has been experiencing some nausea. Reports generalized weakness and dyspnea on exertion, possibly related to fatigue, poor intake, and immunotherapy. 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 He received his first dose on 05/21. He remains asymptomatic and denies diaphoresis, palpitations, anxiety or tremulousness. He had a CTPE on 06/09 however his thyroid function labs were drawn before the iodine contrast load, thus they should have not been impacted. - Endo consult: In light of mild clinically disease and given the temporary character of the ICI driven thyroiditis, we will pursue monitoring for the moment and repeat of labs in a week. Repeat Thyroid function labs: TSH and fT4 in 1 week (repeat on 06/18, ordered) Follow TSI antibodies (ordered) - Continue to monitor for symptom development Hx of Systolic HF Demand ischemia (Elevated BPN/Troponin) in the setting of dehydration, CKD Hx Pulmonary Hypertension Hx CAD s/p cardiac bypass Hx Bioprosthetic mitral valve replacement Pt reports ELIZABETH and fatigue but currently on RA. Denies chest pain. - Trop trending up in ED 85>>94>>123. Peaked 06/10, no longer trending - BNP 4511 - Last Echo EF 35%. RVSP 69 mmHg on echocardiogram. - Cardiology consult: BNP level is elevated and troponin is slightly elevated, this seems more in line with his kidney disease and decreased intake rather than ACS or HF exacerbation. I do think that there is a long standing pulmonary hypertension component to his symptoms. A RHC in February showed elevated left sided pressures as well as elevated pulmonary pressures, supporting group 2 PH. He is on adequate diuretics and GDMT from this standpoint. Uncertain how the diagonal fistula would factor into his long-standing symptoms, but does not seem to be causing anginal symptoms Recommend holding Lasix until euvolemic. May need to re-assess his Lasix maintenance dose given his decreased appetite. Can restart with 40 mg Lasix PO daily (reduced from home dose of 60 mg) Maintain goal INR 2-3 on warfarin - Repeat echo (06/11): EF 45%, RVSP 65 mmHg Last echo showed similar RVSP so cards does not recommend pulm HTN evaluation inpatient - Cont amlodipine, losartan, aldactone, toprol xl, and lasix (lasix on hold as above) - Cont tele and pulse ox Hyponatremia - Na 134 on 06/12 - Urine lytes and osmol suggest 2/2 diuretic use - Holding lasix as above - Hold on IVF for now given PO intake improving 06/12 and hx HF - Daily chem Constipation - LBM 06/11 - Continue miralax daily Hx of Afib Supratherapeutic INR - On home Warfarin 5mg daily. Follows with OP warfarin clinic. - Held 06/10, 06/11, 06/12 warfarin dose for supratherapeutic INR of 3.9. - No overt signs/symptoms of bleeding - Monitor daily INR until therapeutic for 2 consecutive days, then every 2 days for 14 days or until discharged - Maintain goal INR 2-3 on warfarin - Cont toprolol XL Deconditioning - PT/OT consult: rec home with [facility] Metastatic Melanoma - Follows with Dr. Walsh - Currently on immunotherapy with opdualag (last 05/21/25) - Dr. Walsh updated via email 06/11 - FU [facility] 06/21 Quality Self-Check Complexity. Hyponatremia - Secondary to fluid shifts. Monitor. Malnutrition - Severe Protein-Calorie Malnutrition (POA) (06/11/2025 12:36 PM) secondary to Acute Illness / Injury (06/11/2025 12:36 PM) - Reviewed and agree with registered nursing professor's recommendations. Wound Documentation Any conditions listed below are present on admission unless otherwise specified. .Metastatic Cancer, Location of Metastasis - see above for additional details Body mass index is 23.63 kg/m . RESOLVED PROBLEMS N/A CHRONIC PROBLEMS RA - Cont home hydroxychloroquine - [facility] referred patient to Dr. Desai for evaluation of RA management with immunotherapy - FU Dr. Desai 06/21 CKD Stage 2 - Baseline Cr appears ~ 1.3 - Avoid nephrotoxic meds - Daily chem DVT prophylaxis: warfarin held Diet: DIET REGULAR Continuous Infusions: Code Status: Full Code Fall Risk: Assessed for patient fall risk and discussed safety measures during rounding. CENTRAL LINES: None Serious Illness Conversation: None Disposition: The patient will require continued hospitalization for poor PO/FTT, MBS. They are expected to discharge to PT/OT rec home with [facility].Today they are expected to be medically ready for discharge on TBD. Follow-ups made: Dr. Desai 06/21, Dr. Walsh ([facility]) 06/21 Follow-ups needed: TBD SUBJECTIVE No acute events overnight. Patient seen resting in bed eating breakfast sandwich with son in law at bedside. Reports feeling well this morning. Denies hematuria, hematochezia, melena, BRBPR, and other s/sx of overt bleeding. Feels his PO intake is improved today. Reports nausea also improved. Patient currently denies fever, chills, FLEMING, chest pain, SOB, N/V/D. All questions/concerns answered. Remainder of ROS queried and negative. Discussed plan for swallow evaluation today given noticeable coughing with PO intake and to continue monitoring PO intake. Patient and family understanding and in agreement. OBJECTIVE Temp: [97.6 F (36.4 C)-98.5 F (36.9 C)] 98.4 F (36.9 C) Pulse (Heart Rate): [60-66] 64 Resp Rate: [16-18] 16 BP: (133-163)/(58-69) 142/66 O2 Sat (%): [96 %-100 %] 97 % Weight: [74.7 kg (164 lb 10.9 oz)] 74.7 kg (164 lb 10.9 oz) General: A&O to self, time, place, and situation. NAD. HEENT: EOMI, anicteric sclerae, conjunctivae & lids symmetrical. No signs of inflammation. Neck no rigidity. Not ALATNA. MMM. Respiratory: Clear to auscultation bilaterally, no crackles/rhonchi/wheezes, no increased WOB. On RA Cardiovascular: Afib, no murmurs, 1+ pitting edema BLE (L>R). Abdomen: Normoactive BS. Abdomen soft, nontender, nondistended. No palpable masses. Neurologic: CN II-XII grossly intact. No focal deficits. Speech clear and coherent. Follows commands. Skin: Color, texture, and turgor normal. Chronic brawny discoloration of BLE (L>R). Psychosocial: Affect appropriate PIV with no evidence of erythema, drainage, or tenderness. Dressing is clean, dry, and intact. Plan of care reviewed with the attending, Dr. Yves Lamb MD: in agreement. Cris Rosa PA-C Pager: [phone] The provider may be reached from 7a-7p at pager listed on QGenda. After these hours please page the cadmium liquor maker or moonlighter. Cosigned by Yves Lamb MD at 06/12/2025 5:06 PM EDT Associated attestation - Yves Lamb MD - 06/12/2025 5:06 PM EDT I have personally seen, interviewed the patient for history/progress, performed physical examination and formulated and/or supervised the medical plan/decisions with the MY. I have personally reviewed all available clinical data related to today's encounter. I personally performed all aspects of the medical decision making for this encounter. I have reviewed and verified this documentation and it accurately reflects our care., with the following comments/corrections/additions. Discussed the diagnosis and plan of care with the patient and/or family who are in agreement. 89 year old gentleman with a history of melanoma, atrial fibrillation, hyperlipidemia. He presented with decreased appetite. Severe protein calorie malnutrition: PT, OT, nutrition consults. Will try aggressive control of nausea, constipation, and will also try an appetite stimulant (mirtazapine). Appetite slightly better today. Concern for ICI thyroiditis: Continue monitoring per endo's recs. Repeat labs in 1 week. Heart failure: cardiology following, repeat echo ordered and showed EF 45% and RVSP 65 mmHg, similar to prior Rest per MY note. Yves Lamb MD Geriatrics Consult Progress Note Reason for consultation - workup for fatigue, anorexia, recs appreciated Assessment and Plan 1. Decreased oral intake - improving 2. Nausea - improving 3. Weight loss 4. Melanoma 5. Physical deconditioning 6. At risk for delirium - remains CAM negative - Geriatric ROS notable for living independently with supportive family in his life. Functionally independent, walked well without history of falls. Cooked for himself and had a good appetite previously. No issues with weight loss prior to starting immunotherapy. 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 - ST eval pending due to coughing with PO intake this morning - Continue mirtazapine 7.5mg at hs - Continue PT and OT. Will likely need ongoing therapies post discharge. - Continue supportive care with evidence-based nonpharmacologic interventions for prevention of delirium: - redirect/reorient/reassure frequently - avoid restraints as they can worsen delirium, and instead utilize sitter as needed for safety - early mobilization as medically appropriate, OOB for meals as able - have patient use glasses and hearing aides - use familiar objects (family photos and items from home) - sleep hygiene, limit nighttime care to promote sleep/wake cycle - hydrate and encourage PO intake when medically appropriate - minimize/camouflage lines and tethers as able - minimize narcotics as long as pain is adequately controlled - avoid benzos and anticholinergic medications. Fall Risk: Assessed for patient fall risk and discussed safety measures during rounding. Interval History/Subjective Data Mirtazapine 7.5mg at hs added last night. No nausea, feels appetite is a little better. Significant coughing after eating last bite of cheerios this morning. ST eval pending. Denies pain, FLEMING, dizziness, SOB, NVCD, dysuria, numbness/tingling, confusion. Fair sleep last night. I think it was that medicine that made me sick. Medication Review amLODIPine 2.5 mg Oral Daily Fexofenadine 180 mg Oral Daily Finasteride 5 mg Oral QAM [Held by provider] furOSEmide 60 mg Oral Daily Hydroxychloroquine 200 mg Oral Once per day on Wednesday And Hydroxychloroquine 200 mg Oral 2 times per day on Wednesday Losartan 50 mg Oral Daily Metoprolol succinate 75 mg Oral Daily Mirtazapine 7.5 mg Oral QHS Polyethylene glycol 17 g Oral Daily Spironolactone 25 mg Oral QAM [Held by provider] warfarin 5 mg Oral Daily Acetaminophen, alum/mag hydrox.-simethicone, Ondansetron 4mg/2ml OR Ondansetron Physical Exam Temp: [97.6 F (36.4 C)-98.5 F (36.9 C)] 98.5 F (36.9 C) Pulse (Heart Rate): [60-66] 66 Resp Rate: [12-18] 16 BP: (133-163)/(58-69) 163/68 O2 Sat (%): [96 %-100 %] 97 % Weight: [68.4 kg (150 lb 12.7 oz)-74.7 kg (164 lb 10.9 oz)] 74.7 kg (164 lb 10.9 oz) General: In bed. Appears frail. HEENT: Eyeglasses and bilateral hearing aides in place. Cardiovascular: RRR. Respiratory: Intermittent coughing. Abdominal: +BS. Extremities: CARLOS x4. Mental status: Awake. Flat affect. Answers questions appropriately. Maintains attention and concentration. Ox4. CAM negative. Decreased insight into weakness and likely need for help post-discharge. Lab Results Component Value Date SODIUM 134 (L) 06/12/2025 POTASSIUM 5.5 (H) 06/12/2025 CHLORIDE 101 06/12/2025 CO2 25 06/12/2025 BUN 24 06/12/2025 CREATSERUM 1.14 06/12/2025 GLUCOSE 83 06/12/2025 Lab Results Component Value Date WBC 8.11 06/12/2025 HGB 7.9 (L) 06/12/2025 HCT 24.2 (L) 06/12/2025 PLATELET 368 (H) 06/12/2025 MCV 94.5 06/12/2025 No results found for: HGBA1C Lab Results Component Value Date TSH 0.149 (L) 06/09/2025 Thank you for involving us in Sebastian Hannon's care. Please contact us with any questions. For after hours and weekend needs, the Geriatrics Consult Service can be reached via [facility] > Internal Medicine > Geriatrics. Plan reviewed with Geriatrics Attending, primary team, patient. Kristel Lee, BHARTI, SKIDDER-TRACK WORKER Nurse Practitioner Geriatrics Inpatient Consult Service Pager #[phone] Department of Pharmacy Admission Medication Reconciliation Note Patient: Sebastian Hannon Room/Bed: I have reviewed the patient's home medication list with the following sources Patient's family member/caregiver (Tricia, daughter), Dispense Report, [facility] Review, and Medication list reviewed in conjunction with provider/nurse interview . I have also reviewed this list with the pharmacist. A call to the pharmacy was not needed because the information compiled from listed sources corroborates the patient/caregiver interview. I am recommending the following changes to the home medication list. These recommendations are considered preliminary until attestation of this note by a pharmacist. Added to Home Medications: N/a Deleted from Home Medications: N/a Edits to Home Medications: Metoprolol Succinate 50 mg - Patient's daughter reported taking 75 mg; Previously stated as taking 2 tablets of 25 mg Warfarin 5 mg - Patient's daughter reported to be taking 1 tablet; Previously stated as taking 1.5 tablets Other Comments: The patient's allergies have been reviewed with Patient's family member/caregiver. Atorvastatin 40 mg - Patient's daughter reported to have stopped taking recently due to immunotherapy Please feel free to contact me with any further questions. Name: Conrad Adams Phone #: [phone] Date/Time: 06/11/2025 1:46 PM Time Spent: 35 minutes Cosigned by Hunter Nix Jr., RP at 06/11/2025 2:13 PM EDT Associated attestation - Hunter Nix Jr., RPH - 06/11/2025 2:13 PM EDT Department of Pharmacy Admission Medication Reconciliation Note Patient: Sebastian Hannon Room/Bed: Updated MEDICAL PHYSICS TEACHER Med List: Prior to Admission Medications Prescriptions Alfuzosin HCl 10 MG Tab SR 24 HR Sig: Take 1 tablet by mouth daily. Calcium 500-125 MG-UNIT Tab Sig: Take 1 tablet by mouth daily. Cholecalciferol (VITAMIN D) 4000 Units capsule Sig: Take 1 capsule by mouth every other day. Cyanocobalamin (VITAMIN B 12 PO) Sig: Place 1,000 mcg under tongue daily. Ferrous Sulfate (IRON) 325 (65 Fe) MG Tab Sig: Take 1 tablet by mouth daily. Fexofenadine (Nikunj Allergy) 180 MG tablet Sig: Take 1 tablet by mouth daily. Finasteride 5 MG tablet Sig: Take 1 tablet by mouth daily every morning. Furosemide (LASIX PO) Sig: Take 60 mg by mouth daily. Metoprolol succinate 50 MG tablet XL Sig: Take 1.5 tablets by mouth 2 times daily. Seaczbuld-Oisjlugvll-dakh (OPDUALAG IV) Sig: by Intravenous route. Spironolactone 25 MG tablet Sig: Take 1 tablet by mouth daily every morning. amLODIPine 2.5 MG tablet Sig: Take 1 tablet by mouth daily. atorvastatin 40 MG Tab tablet Sig: Take 1 tablet by mouth daily. Patient not taking: Reported on 06/11/2025 Note (06/11/2025): Patient's daughter reported stopped taking due to immunotherapy hydroxychloroquine 200 MG Tab tablet Sig: Take 1 tablet by mouth 2 times daily. losartan 50 MG Tab tablet Sig: Take 1 tablet by mouth daily. nitroGLYCERIN 0.4 MG tablet SL Sig: Place 1 tablet under tongue every 5 minutes as needed for Chest pain. max = 3 doses. If CP persists after 1st dose, call 911 warfarin 5 MG tablet Sig: Take 1 tablet by mouth daily. Facility-Administered Medications: None I have reviewed the home medication list with the Winch Operator. The home medication list status is: complete and home med list marked as reviewed . All changes to the home medication list have been updated in [facility]. Please feel free to contact me with any further questions. Name: Hunter Nix Jr. [facility] Phone #: [phone] Date/Time: 06/11/2025 2:13 PM NUTRITION CONSULT / ASSESSMENT Nutrition Recommendations and Plan of Care: 1. Diet: Heart healthy Consider liberalization of diet to provide additional menu items and promote PO intake 2. Will send oral supplements, Apple Ensure Clear x1/d + Magic Cup x1/d to aid in calorie and protein intake during admission 3. Agree with trial of appetite stimulant (Remeron) 4. PRN Zofran and/or Compazine 5. RD to follow and monitor PO intake, GI function, weight changes, labs, and skin integrity eSbastian Hannon is a 89 y.o. 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 Past History Past medical, surgical, family, and social histories have reviewed and are located elsewhere in the medical record. Nutrition History/Assessment Consult received for malnutrition assessment. Pt is unknown to nutrition services. Spoke with pt and daughter at bedside. Pt reports since starting medication (immunotherapy) his intake has been declining. Daughter states he has eaten very little in the past week and a half. He is experiencing nausea with PO intake, noted PRN Zofran is currently ordered. They endorse weight loss in the past month, UBW 155-160 lbs. Weight history below confirms severe weight loss x1 month. Physical exam not warranted at this time, would be difficult to interpret due to advanced age. Pt meets criteria for malnutrition based on weight loss and energy intake. Daughter inquired about appetite stimulant, agree pt may benefit, noted Remeron ordered to start tonight. Pt with hypokalemia upon admission, has been IV replaced. Diet Order: Current Diet Orders Procedures DIET HEART HEALTHY - 4 GM SODIUM Standing Status: Standing Number of Occurrences: 1 Dietary Allergies: NKFA Anthropometrics: Ht: 5'10 (1.778m) Wt: 150lbs / 68.4kg IBW: 166lbs / 75.5kg %IBW: 90% BMI: 21.64 kg/m2 Weight History: Limited weight history available, though pt with severe weight loss x1 month (11 lb / 6%). UBW 155-160lbs. Wt Readings from Last 20 Encounters: 06/10/25 68.4 kg (150 lb 12.7 oz) 05/21/25 71.9 kg (158 lb 8 oz) 05/10/25 73.1 kg (161 lb 1.6 oz) Per Care Everywhere: 04/19/25 74.38 kg 03/21/25 73.93 kg 01/05/25 75.8 kg 10/05/24 74.38 kg Meds Reviewed: amLODIPine 2.5 mg Oral Daily Fexofenadine 180 mg Oral Daily Finasteride 5 mg Oral QAM furOSEmide 60 mg Oral Daily [START ON 06/12/2025] Hydroxychloroquine 200 mg Oral Once per day on Wednesday And Hydroxychloroquine 200 mg Oral 2 times per day on Wednesday Losartan 50 mg Oral Daily Metoprolol succinate 75 mg Oral Daily Mirtazapine 15 mg Oral QHS potassium chloride 10 mEq Intravenous Once Followed by potassium chloride 10 mEq Intravenous Once Spironolactone 25 mg Oral QAM [Held by provider] warfarin 5 mg Oral Daily Labs Reviewed: Bun/Creat/Cl/CO2/Glucose: 23/1.12/101/27/91 (06/11 326) WBC/Hgb/Hct/Plts: 6.22/7.7/24.2/183 (06/11 326) Na/K+/Phos/Mg/Ca: 137/3.6/3.1/1.6/9.1 (06/11 326) Physical Findings: GI: Last BM not documented Enteral Access: None I/O: Net -300mL Respiratory: Room air Skin: [place]iago Score: 15 No active wounds Edema: 1+(trace): bilateral legs, ankles, and feet Nutrition Focused Physical Exam: Nutrition Focused Physical Exam Completed?: deferred Reason For Deferral: pt with advaned age, difficult to interpret, not warranted at this time Estimated Nutrition Needs: Wt used: 68.4 kg CBW Estimated Energy Needs: 8335-1078 kcals/day (25-30 kcal/kg) Estimated Protein Needs: 82-103 g protein/day (1.2-1.5 g/kg) Estimated Fluid Needs: 3243-9684 mL fluid/day (1 ml/kcal), or per team Malnutrition Statement: Does the patient meet criteria for malnutrition: Yes Etiology of Malnutrition: Acute Illness / Injury Malnutrition Severity: Severe Protein-Calorie Malnutrition (POA) as evidenced by clinical characteristics: Energy intake: Less than or equal to 50% energy intake compared to estimated needs for greater than or equal to 5 days Weight Loss: > 5% in 1 month *Based on [employer] and [employer] Indicators to Diagnose Malnutrition (AAIM) criteria (2012) Mare Mcarthur MS, RD, LD Contact: pager #[phone] or IHIS chat Acute Physical Therapy Evaluation Prior Gross Functional Mobility: independent Current AM-PAC score(s): CURRENT AM-PAC Mobility Raw Score: 18 Based on the above AM-PAC score(s) and PT clinical judgment, patient is a good candidate for discharge to Home with Home Health (and 26/04 supervision) Barriers to discharge home: Patient needs assistance with functional mobility, Patient needs assistance with IADLs (see note below) Mobility equipment available at home: front-wheeled walker ADL equipment available at home: grab bars (by the toilet) Equipment needed for discharge: 4 wheeled walker Current therapy frequency recommendation in acute: PT Therapy Frequency: 4 times a week Activity Recommendations for outside of rehab session: up with x1 assist with FWW and gait belt Precautions and Weightbearing Status: Existing Precautions/Restrictions: fall Lines/Tubes/Drains (Rehab Status): No critical lines at this time Patient Safety Communication Prior to Visit: Nursing Subjective: pt greeted in bed, agreeable to PT eval. Pt daughter present for evaluation Pain: General Pain Documentation (Adult, OB, Peds) Presence of Pain: denies pain/discomfort Presence of Pain Score (Auto-calculated): 0 Home Setting Residence: House (2 story with basement) Lives With: alone Patient receives help from : none Patient reported support for discharge planning: intermittent supervision, intermittent physical assist First floor setup: bedroom, walk-in shower Second floor setup: (does not need to access basement or upstairs level) Number of stairs to enter home: 5 Number of stairs in home: full flight to second floor and basement - does not need to access Stair Railings at Home: entry - with rail Mobility Equipment Available: front-wheeled walker ADL Equipment Available: grab bars (by the toilet) Previous Level of Function Gross Functional Mobility: independent Assistive Device: none used (last week and a half has been using the 2ww) Prior level ADL Overview: Independent with all ADLs Bed Mobility: independent Transfers: independent Stairs: independent Ambulation: independent with all needs Prior Level of Function Details: Pt denies recent falls. Objective/Observation: Vitals/Vitals Responses to Treatment: VSS O2 Device: room air Cognition Overall Cognitive Status: Within Functional Limits Arousal/Alertness: Appropriate responses to stimuli Orientation Level: Oriented X4 Following Commands: Follows one step commands without difficulty Safety Judgment: Decreased awareness of need for safety Awareness of Errors: Assistance required to correct errors made Deficits: Fully aware of deficits Attention Span: Appears intact Vision Screen Currently wearing corrective lenses: Yes Visual Impairments Observed?: No Speech Speech: no gross deficits noted Successful Methods (Communication Strategies): verbal speech Hearing Hearing: hard of hearing, hearing aids Extremity Assessments: RLE Assessment RLE Assessment: Strength Impaired Strength RLE R Hip Flexion: 3+/5 R Knee Extension: 4/5 R Ankle Dorsiflexion: 4/5 R Ankle Plantar Flexion: 4/5 LLE Assessment LLE Assessment: Strength Impaired Strength LLE L Hip Flexion: 3+/5 L Knee Flexion: 4/5 L Knee Extension: 4/5 L Ankle Dorsiflexion: 4/5 L Ankle Plantar Flexion: 4/5 Mobility Assessment: Supine to Sit Mobility Lamb Level: Supine->Sit: stand-by assist Bed Features/Set-up: Supine->Sit: Head of bed elevated Skilled Intervention/Details: Supine->Sit: x1 to R Balance: Sitting Balance Static Sitting-Level of Assistance: Standby Dynamic Sitting-Level of Assistance: Standby Sitting Balance Skilled Intervention/Details: no LOB seated EOB, increased time to scoot hips forward prior to standing Standing Balance Static Standing-Level of Assistance: Contact guard Dynamic Standing-Level of Assistance: Contact guard, Minimum assistance Standing-Balance Support: Gait belt, Front-wheeled walker Skilled Rationale: Positioning, Hand placement, Verbal cues, Full extension to upright positioning/posture Standing Balance Skilled Intervention/Details: increased retropulsion in standing but corrects with increased time Transfer Assessment: Sit to Stand Transfer Lamb Level: Sit->Stand: minimum assist (75% patient effort) Assistive Device: Sit->Stand: gait belt, front-wheeled walker Skilled Intervention/Details: Sit->Stand: x1 from EOB with increased retropulsion needing MIN A to maintain balance Stand to Sit Transfer Lamb Level: Stand->Sit: contact guard assist Assistive Device: Stand->Sit: gait belt, front-wheeled walker Skilled Intervention/Details: Stand->Sit: x1 to chair with mild decrease in safety awareness, abandons FWW prior to being positioned near chair Gait/Functional Mobility: Gait Assessment Lamb Level: Gait: contact guard assist Assistive Device: Gait: gait belt, front-wheeled walker Ambulation Distance (Feet): 150 Gait Deviations Identified: decreased baylee, decreased heel strike, decreased gait speed, flexed posture, increased knee flexion, increased postural sway Gait Skilled Rationale: verbal, safety to avoid obstacles Skilled Intervention/Details - Gait: distance limited by fatigue, demos decreased baylee and mild sway but no overt LOB Wheelchair Assessment Patient currently uses wheelchair?: No Stairs: Stairs Assessment Lamb Level: Stair Negotiation: contact guard assist Assistive Device: Stair Negotiation: gait belt, left rail (ascending), right rail (ascending) Number of stairs: 4 Stairs Skilled Rationale: verbal, nonreciprocal pattern, general safety Skilled Intervention/Details - Stairs: no LOB, good knee stability Outcome Score(s): CURRENT [facility] Basic Mobility Inpatient Short Form Turning over in bed: 3 - A Little Assistance Moving from lying on back to sittin - A Little Assistance Moving to and from bed to chair: 3 - A Little Assistance Sitting/standing from chair: 3 - A Little Assistance Walk in hospital room: 3 - A Little Assistance Climbing 3-5 steps with a railin - A Little Assistance CURRENT [facility] Mobility Raw Score: 18 CURRENT [facility] Mobility Functional Limitation: 46.58% Impaired in Basic Mobility Interventions: Assessment & Plan: Patient was admitted for increased nausea, FTT and seen for therapy evaluation related to deconditioning and weakness in the setting of disease process. Exam findings include impairments in: Strength, ROM (range of motion), Balance, Coordination, Posture, Pain, Gait/Locomotion, Transfers, Motor control, Aerobic capacity/endurance. These impairments contribute to functional limitations including Ambulation/locomotion pain, Decreased ambulation distance/endurance, Difficulty stair climbing/descent, Increased fall risk, Difficulty ambulating on uneven/dynamic surfaces, Limited standing tolerance, Community integration difficulties, Difficulty with transfers, Difficulty with bed mobility. Current clinical presentation is Evolving - changing/inconsistent clinical characteristics (Moderate). Patient history factors impacting Plan Of Care include PMH, age, lives alone. Patient will benefit from skilled physical therapy to address these impairments, functional limitations, and participation restrictions and has good rehab potential to achieve therapy goals. Planned Therapy Interventions: balance training, bed mobility training, endurance, functional activity tolerance, gait training, motor coordination training, neuromuscular re-education, postural re-education, strengthening, transfer training Patient Instruction/Education this session: Learners: Patient Education provided: Plan of care, Role of this discipline Teaching method: Verbal Education/Instruction Learner response: Applies knowledge Learning preferences: Auditory Learning considerations: Hearing Impairment Plan for next session: progress endurance, LE strengthening, gait training Acute PT Goals Plan of Care by Elsa Valencia PT at 06/11/2025 8:20 AM Version 1 of 1 Problem: PT - General Goals Goal: Supine <-> Sit Transfers - Patient will perform supine to/from sit transfers with independence and without use of hospital bed features in order to improve functional mobility and safety. Outcome: Ongoing Goal: Sit <-> Stand Transfers - Patient will perform sit to/from stand transfers with modified independence and least restrictive device in order to improve functional mobility and safety. Outcome: Ongoing Goal: Standing Endurance/Balance - Patient will perform standing balance tasks for 10 min with modified independence and least restrictive device while maintaining an RPE of less than 3/10 to improve endurance and safety with standing tasks. Outcome: Ongoing Goal: Ambulation - Patient will ambulate 250 feet with modified independence and least restrictive device to improve ability to safely navigate home and community. Outcome: Ongoing Goal: Stairs - Patient will ascend/descend 4-12 stairs with modified independence, without an assistive device, and single railing(s) to improve ability to safely navigate home and community. Outcome: Ongoing Goal: Strength - Patient will adhere to understanding of exercise program. Outcome: Ongoing PT treatment consisted of the following to progress towards the above goal(s): PT Evaluation and Treatment Time PT Evaluation (Moderate) Time Entry: 27 Evaluating Therapist: Elsa Valencia PT Additional Details: PT Co-Eval/Treatment Information Co-evaluation/co-treatment performed?: Yes, simultaneous billable skilled care was necessary due to medical complexity and functional deficits Other discipline: OT Rationale for need to co-eval/treat: postural control Evaluation Complexity Components History: Moderate (1-2 personal factors and/or comorbidities) Body Systems Review: Moderate (Addressing a total of 3 or more elements) Clinical Presentation: Evolving - changing/inconsistent clinical characteristics (Moderate) Clinical Decision Making Complexity: Moderate Time In: 819 Time Out: 846 Total Visit Time: 27 minutes Total Treatment Time (skilled, billable minutes): 27 minutes PPE used during patient interaction: gloves Patient location at end of session: chair Alarms on at end of session: chair alarm Needs in reach. Upon discontinuation of Acute Care Physical Therapy Services or patient discharge from the hospital this note represents the current Physical Therapy Discharge Summary. Acute Occupational Therapy Evaluation Prior Gross Functional Mobility: independent Current AM-PAC score(s): CURRENT AM-PAC Activity Raw Score: 19 Based on the above AM-PAC score(s) and OT clinical judgment, discharge destination recommendation is: Home with Home Health (and initial 26/04 supervision/support) Barriers to discharge home: Patient needs assistance with functional mobility, Patient needs assistance with ADLs, Patient needs assistance with IADLs (see note below) Mobility equipment available at home: front-wheeled walker ADL equipment available at home: grab bars (by the toilet) Equipment recommendations for discharge: shower chair Equipment issued: none Current therapy frequency recommendation(s) in acute: 4 times a week Activity Recommendations for outside of rehab session: up with x1 assist with FWW and gait belt Precautions and Weightbearing Status: OT Existing Precautions/Restrictions: fall Lines/Tubes/Drains (Rehab Status): No critical lines at this time Patient Safety Communication Prior to Visit: Nursing Subjective: Pt agreeable to OT evaluation this date; presents in supine. Daughter present at bedside. Pain: General Pain Documentation (Adult, OB, Peds) Presence of Pain: denies pain/discomfort Presence of Pain Score (Auto-calculated): 0 Home Setting Residence: House (2 story with basement) Lives With: alone Patient receives help from : none Patient reported support for discharge planning: intermittent supervision, intermittent physical assist First floor setup: bedroom, walk-in shower Second floor setup: (does not need to access basement or upstairs level) Number of stairs to enter home: 5 Number of stairs in home: full flight to second floor and basement - does not need to access Stair Railings at Home: entry - with rail Mobility Equipment Available: front-wheeled walker ADL Equipment Available: grab bars (by the toilet) Home Environment Details: Potential plans to return to daughter's; 1 story home Previous Level of Function Gross Functional Mobility: independent Assistive Device: none used (last week and a half has been using the 2ww) Prior level ADL Overview: Independent with all ADLs Bed Mobility: independent Transfers: independent Stairs: independent Ambulation: independent with all needs Prior Level of Function Details: Pt denies recent falls. IADL History Primary Language: Hong Konger Objective/Observation: Vitals/Vitals Responses to Treatment: No adverse reactions during session. O2 Device: room air Vision Screen Currently wearing corrective lenses: Yes Visual Impairments Observed?: No Speech Speech: no gross deficits noted Successful Methods (Communication Strategies): verbal speech Hearing Hearing: hard of hearing, hearing aids Cognition Overall Cognitive Status: Within Functional Limits Arousal/Alertness: Appropriate responses to stimuli Orientation Level: Oriented X4 Following Commands: Follows one step commands without difficulty Safety Judgment: Decreased awareness of need for assistance, Decreased awareness of need for safety Awareness of Errors: Assistance required to identify errors made, Assistance required to correct errors made Deficits: Fully aware of deficits Attention Span: Appears intact ADLs: ADL Assessment: Assessed All ADLs ADL Anticipated Performance (ADLs not directly observed this session): Eating, Grooming, Bathing, UE Dressing, Toileting Eating Assistance: Independent Grooming Assistance: Contact guard assist Grooming Location: standing at sink Bathing Assistance: Minimal Bathing Location: standing in shower UE Dressing Assistance: Stand by UE Dressing Location: edge of bed LE Dressing Assistance: Contact guard assist LE Dressing Location: edge of bed LE Dressing Deficit: Generalized weakness, Activity tolerance, Increased time to complete, Balance LE Dressing Skilled Rationale (Verbal/Tactile/Visual/Demonstrat ion): Setup, Supervision, Cues for increased safety LE Dressing Intervention/Details: Increased time to complete however able to doff socks and inge again, bringing feet into partial figure 4 Toilet Assistance: Contact guard assist Toileting Location: toilet Extremity Assessments: RUE Assessment RUE Assessment: AROM WFL, Strength Impaired Right UE Assessment Details: 3+/5 grossly LUE Assessment LUE Assessment: AROM WFL, Strength Impaired Left UE Assessment Details: 3+/5 grossly Balance: Sitting Balance Static Sitting-Level of Assistance: Standby Dynamic Sitting-Level of Assistance: Standby Skilled Rationale: Verbal cues Sitting Balance Skilled Intervention/Details: no LOB seated EOB, increased time to scoot hips forward prior to standing Standing Balance Static Standing-Level of Assistance: Contact guard Dynamic Standing-Level of Assistance: Contact guard, Minimum assistance Standing-Balance Support: Gait belt, Front-wheeled walker Skilled Rationale: Positioning, Verbal cues, Full extension to upright positioning/posture Standing Balance Skilled Intervention/Details: flexed posture in standing Neuro: Sensation Overall Sensation: Intact Sensation Comments: Denies n/t Gross Coordination Gross Coordination: bilat UE intact Fine Motor Coordination Additional Documentation: No Skin and Edema: Skin Integrity Skin Integrity Description: WFL Edema Edema: not tested Mobility Assessment: Supine to Sit Mobility Lamb Level: Supine->Sit: stand-by assist Bed Features/Set-up: Supine->Sit: Head of bed elevated Skilled Rationale: Verbal cues Skilled Intervention/Details: Supine->Sit: x1 to R side of bed Sit to Supine Mobility Lamb Level: Sit->Supine: not tested Skilled Intervention/Details: Sit->Supine: Pt seated in armed chair at end of session Transfer Assessment: Sit to Stand Transfer Lamb Level: Sit->Stand: contact guard assist Assistive Device: Sit->Stand: gait belt, front-wheeled walker Skilled Rationale: Positioning, Verbal cues Skilled Intervention/Details: Sit->Stand: x1 from EOB Stand to Sit Transfer Lamb Level: Stand->Sit: contact guard assist Assistive Device: Stand->Sit: gait belt, front-wheeled walker Skilled Rationale: Positioning, Verbal cues, Controlled descent for sitting Skilled Intervention/Details: Stand->Sit: x1 to chair with mild decrease in safety awareness, abandons FWW prior to being positioned near chair Functional Mobility: Functional Mobility Lamb Level: Functional Mobility/Gait: contact guard assist Assistive Device: Functional Mobility/Gait: gait belt, front-wheeled walker Functional Mobility Distance: Distance needed for common household mobility Functional Mobility Deficits: Activity tolerance, Balance, Generalized weakness, Slowed gait speed Skilled Intervention/Details - Functional Mobility/Gait: Patient completing functional mobility in hallway with use of 2ww; demos flexed posture, slowed gait speed. Wheelchair Assessment Patient currently uses wheelchair?: No Outcome Score(s): CURRENT -[facility] Daily Activity Inpatient Short Form Putting on/Taking Off Lower Body Clothin - A Little Assistance Bathin - A Little Assistance Toiletin - A Little Assistance Putting on/Taking Off Upper Body Clothin - A Little Assistance Groomin - A Little Assistance Eatin - No Assistance CURRENT [facility] Activity Raw Score: 19 CURRENT -[facility] Activity Functional Limitation/Modifier: 42.80% Currently Impaired in Daily Activity - CK Assessment & Plan: Past Medical History[1] Past Surgical History[2] Sebastian Hannon, 89 year old male with past medical history of melanoma on immunotherapy last 05/21/25, HF, afib with pacemaker, on coumadin, HLD comes in to the ED for nausea, decreased appetite, fatigue and seen for therapy evaluation related to ADL and functional mobility assessment secondary to deconditioning impacting performance. Exam findings include impairments in: aerobic capacity, balance, endurance, muscle performance, pain, transfers, strength. These impairments contribute to occupational performance limitations including bathing, dressing, grooming, toileting, functional mobility, ADL transfers. Patient will benefit from skilled occupational therapy to address these impairments, occupational performance limitations, and participation restrictions. Patient's rehab potential is: good. Planned Therapy Interventions (OT Eval): ADL retraining, bed mobility training, balance training, functional activity tolerance, strengthening, transfer training Patient Instruction/Education this session: Learners: Patient Education provided: Safety, Role of this discipline, Plan of care, Activity outside of therapy Teaching method: Verbal Education/Instruction Learner response: Applies knowledge Learning preferences: Auditory Learning considerations: No barriers/ready to learn Plan for next session: bathing/dressing routine, functional mobility Acute OT Goals Plan of Care by Magalys Zapata OT at 06/11/2025 8:20 AM Version 1 of 1 Problem: OT - ADLs Goal: Lower Body Dressing - Patient will complete lower body dressing tasks with modified independence using adaptive equipment/compensatory strategies as needed for improved ability to complete self-care activities. Outcome: Ongoing Goal: Toileting - Patient will complete toileting task with modified independence and adaptive equipment as needed for improved ability to safely complete self-care activities. Outcome: Ongoing Goal: Bathing - Patient will perform full body bathing routine with modified independence while seated and standing for improved ability to complete self-care activities Outcome: Ongoing Problem: OT - Transfers Goal: Transfers Toilet/ Bedside Commode - Patient will transfer to/from toilet/bedside commode with modified independence for improved ability to safely complete ADLs. Outcome: Ongoing Problem: OT - Balance Goal: Balance - Standing - Patient will perform 10+ minutes of functional task in standing with modified independence and good balance to promote safety and improved balance required for self-care activities. Outcome: Ongoing Problem: OT - Endurance Goal: Endurance Functional Mobility - Patient will complete distance needed for common household mobility with modified independence, LRD and no needed rest breaks for improved tolerance to safely complete I/ADL's Outcome: Ongoing Problem: OT - Strength/ROM Goal: Strength/ROM ADL Participation - Patient will participate in UE exercise program with independence to prevent deconditioning while in hospital and to max UE ROM/Coordination/strength for ADLs. Outcome: Ongoing OT treatment consisted of the following to work and progress towards the above goal(s): OT Evaluation and Treatment Time OT Evaluation (Moderate) Time Entry: 27 Evaluating Therapist: Magalys Zapata OT Additional Details: OT Co-Eval/Treatment Information Co-evaluation/co-treatment performed?: Yes, simultaneous billable skilled care was necessary due to medical complexity and functional deficits Other discipline: PT Rationale for need to co-eval/treat: postural control OT Evaluation Complexity Occupational Profile and Client History: Moderate - expanded history Assessment of Occupational Performance: Moderate (3-5 performance deficits) Clinical Decision/Performance Deficits: Moderate (detailed assessments w/several treatment options) Time In: 819 Time Out: 08 Total Visit Time: 27 minutes PPE used during patient interaction: gloves Patient location at end of session: chair Alarms on at end of session: chair alarm Needs in reach. Upon discontinuation of Acute Care Occupational Therapy Services or patient discharge from the hospital this note represents the current Occupational Therapy Discharge Summary. 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 Labs reviewed and physical exam completed. I reviewed PET scans which show Prostate cancer 2020 radiation seeds Pulmonary hypertension Rheumatoid arthritis Sinus bradycardia Valvular heart disease [2] Past Surgical History: Procedure Laterality Date PACEMAKER PLACEMENT 2020 and fibrillator PACEMAKER PLACEMENT 2010 HEART VALVE SURGERY 2007 valve replacement BACK SURGERY 1981 SKIN BIOPSY documented in this encounter [facility] 06-18-2025 Plan of care note Problem: Adult Inpatient Plan of Care Goal: Plan of Care Review Outcome: Adequate for Discharge Goal: Patient-Specific Goal (Individualized) Outcome: Adequate for Discharge Goal: Absence of Hospital-Acquired Illness or Injury Outcome: Adequate for Discharge Goal: Optimal Comfort and Wellbeing Outcome: Adequate for Discharge Goal: Readiness for Transition of Care Outcome: Adequate for Discharge Problem: Oral Intake Inadequate Goal: Improved Oral Intake Outcome: Adequate for Discharge [facility] 06-18-2025 Nurse Note Patient was discussed in medical rounds. Will discharge today. See DC note form 06/15. BERKLEY Fair, RN, [facility] 06-18-2025 Telephone encounter Note Patient's test case developer from [facility] called in. His team wanted to move his 06/21 to the beginning of July. All of patient's four RTC and treatment appointments have been moved four weeks apart. Please advise if scans need moved. [facility] 06-18-2025 Miscellaneous Notes Patient's test case developer from [facility] called in. His team wanted to move his 06/21 to the beginning of July. All of patient's four RTC and treatment appointments have been moved four weeks apart. Please advise if scans need moved. Pt is still admitted as of 06/18 @ 0845 AM Patient is still admitted as of 06/15 @0924 Patient is still admitted as of 06/14 @ 1109 Pt admitted to [facility] 06/10 on C19D from 06/09 ED visit at [facility]. Please see daughter's comments to [facility] of 06/13. Called to cancel pts appt on 06/21 due to Bump. Spoke with Tricia and pt is very weak and unable to get out of bed and has been admitted. Tricia also mentioned that she is not sure if pt will be able to come to his appt on 06/21 or what next steps look like since he may be going to an assisted living rehab, Tricia is afraid of what may happen if he is unable to complete tx if he will loose his brown. CB: [phone] documented in this encounter [facility] 06-18-2025 Plan of care note Problem: OT - ADLs Goal: Lower Body Dressing - Patient will complete lower body dressing tasks with modified independence using adaptive equipment/compensatory strategies as needed for improved ability to complete self-care activities. Outcome: Ongoing Problem: OT - Endurance Goal: Endurance Functional Mobility - Patient will complete distance needed for common household mobility with modified independence, LRD and no needed rest breaks for improved tolerance to safely complete I/ADL's Outcome: Ongoing [facility] 06-18-2025 Telephone encounter Note Pt is still admitted as of 06/18 @ 0845 AM [facility] 06-18-2025 Plan of care note Problem: PT - General Goals Goal: Supine <-> Sit Transfers - Patient will perform supine to/from sit transfers with independence and without use of hospital bed features in order to improve functional mobility and safety. Outcome: Ongoing Goal: Sit <-> Stand Transfers - Patient will perform sit to/from stand transfers with modified independence and least restrictive device in order to improve functional mobility and safety. Outcome: Ongoing Goal: Standing Endurance/Balance - Patient will perform standing balance tasks for 10 min with modified independence and least restrictive device while maintaining an RPE of less than 3/10 to improve endurance and safety with standing tasks. Outcome: Ongoing Goal: Ambulation - Patient will ambulate 250 feet with modified independence and least restrictive device to improve ability to safely navigate home and community. Outcome: Ongoing [facility] 06-17-2025 Plan of care note Problem: Adult Inpatient Plan of Care Goal: Plan of Care Review Outcome: Progressing Problem: Adult Inpatient Plan of Care Goal: Patient-Specific Goal (Individualized) Outcome: Progressing Problem: Adult Inpatient Plan of Care Goal: Absence of Hospital-Acquired Illness or Injury Outcome: Progressing Problem: Adult Inpatient Plan of Care Goal: Optimal Comfort and Wellbeing Outcome: Progressing Problem: Adult Inpatient Plan of Care Goal: Readiness for Transition of Care Outcome: Progressing Problem: Oral Intake Inadequate Goal: Improved Oral Intake Outcome: Progressing Problem: Dysphagia Goal: Bolus challenge - Patient will accept trials of pureed and/or solid trials, given fading cues for use of strategies to improve bolus control/timing of swallow initiation with no signs of aspiration for improved efficiency of po intake Outcome: Progressing Problem: Dysphagia Goal: IOPI - Patient will participate in initial IOPI pressure (kPA) assessment session to identify initial anterior and posterior strength measures to determine need for skllied intervention Outcome: Progressing [facility] 06-16-2025 Plan of care note Problem: Adult Inpatient Plan of Care Goal: Plan of Care Review Outcome: Progressing Goal: Patient-Specific Goal (Individualized) Outcome: Progressing Goal: Absence of Hospital-Acquired Illness or Injury Outcome: Progressing Goal: Optimal Comfort and Wellbeing Outcome: Progressing Goal: Readiness for Transition of Care Outcome: Progressing Problem: Oral Intake Inadequate Goal: Improved Oral Intake Outcome: Progressing Problem: PT - General Goals Goal: Supine <-> Sit Transfers - Patient will perform supine to/from sit transfers with independence and without use of hospital bed features in order to improve functional mobility and safety. Outcome: Progressing Goal: Sit <-> Stand Transfers - Patient will perform sit to/from stand transfers with modified independence and least restrictive device in order to improve functional mobility and safety. Outcome: Progressing Goal: Standing Endurance/Balance - Patient will perform standing balance tasks for 10 min with modified independence and least restrictive device while maintaining an RPE of less than 3/10 to improve endurance and safety with standing tasks. Outcome: Progressing Goal: Ambulation - Patient will ambulate 250 feet with modified independence and least restrictive device to improve ability to safely navigate home and community. Outcome: Progressing Goal: Stairs - Patient will ascend/descend 4-12 stairs with modified independence, without an assistive device, and single railing(s) to improve ability to safely navigate home and community. Outcome: Progressing Goal: Strength - Patient will adhere to understanding of exercise program. Outcome: Progressing Problem: OT - ADLs Goal: Lower Body Dressing - Patient will complete lower body dressing tasks with modified independence using adaptive equipment/compensatory strategies as needed for improved ability to complete self-care activities. Outcome: Progressing Goal: Toileting - Patient will complete toileting task with modified independence and adaptive equipment as needed for improved ability to safely complete self-care activities. Outcome: Progressing Goal: Bathing - Patient will perform full body bathing routine with modified independence while seated and standing for improved ability to complete self-care activities Outcome: Progressing Problem: OT - Transfers Goal: Transfers Toilet/ Bedside Commode - Patient will transfer to/from toilet/bedside commode with modified independence for improved ability to safely complete ADLs. Outcome: Progressing Problem: OT - Balance Goal: Balance - Standing - Patient will perform 10+ minutes of functional task in standing with modified independence and good balance to promote safety and improved balance required for self-care activities. Outcome: Progressing Problem: OT - Endurance Goal: Endurance Functional Mobility - Patient will complete distance needed for common household mobility with modified independence, LRD and no needed rest breaks for improved tolerance to safely complete I/ADL's Outcome: Progressing Problem: OT - Strength/ROM Goal: Strength/ROM ADL Participation - Patient will participate in UE exercise program with independence to prevent deconditioning while in hospital and to max UE ROM/Coordination/strength for ADLs. Outcome: Progressing Problem: Dysphagia Goal: Bolus challenge - Patient will accept trials of pureed and/or solid trials, given fading cues for use of strategies to improve bolus control/timing of swallow initiation with no signs of aspiration for improved efficiency of po intake Outcome: Progressing Goal: IOPI - Patient will participate in initial IOPI pressure (kPA) assessment session to identify initial anterior and posterior strength measures to determine need for skllied intervention Outcome: Progressing Patient reassessed - no changes from previously documented nursing assessment unless otherwise noted in the flowsheet. RN will continue to monitor. Sebastian has been resting in bed and up in the chair today. Family was at bedside most of the day. He had a bowel movement this morning. He has had no complaints of pain or discomfort! [facility] 06-16-2025 Plan of care note Problem: Adult Inpatient Plan of Care Goal: Plan of Care Review Outcome: Progressing Goal: Patient-Specific Goal (Individualized) Outcome: Progressing Goal: Absence of Hospital-Acquired Illness or Injury Outcome: Progressing Goal: Optimal Comfort and Wellbeing Outcome: Progressing Goal: Readiness for Transition of Care Outcome: Progressing Problem: Oral Intake Inadequate Goal: Improved Oral Intake Outcome: Progressing Sebastian reassessed - no changes from previously documented nursing assessment unless otherwise noted in the flowsheet. Sebastian denied any pain this shift. Q2 turns as tolerated. Call light within reach, bed exit alarm on. [facility] 06-15-2025 Note Summary: Advance Dir ectives Per chart review, patient does not have advance directives on file. SW inquired about interest in completing health care power of furniture rental consultant and/or living will paperwork; however, patient reports that they have already completed Healthcare Power of Marketing Director (HCPOA) and Living Will. Document(s) were provided to SW on this date. SW reviewed the document(s) with patient and they confirmed document(s) are current and reflective of their wishes. SW scanned into IHIS. SW returned the original copy back to patient. The following individual(s) are named as decision maker(s) in the patient's HCPOA: Primary Agent: spouse, Maria Teresa Hannon and /or First Alternate Agent: daughter, Tricia Sapp, (ph: [phone]) Second Alternate Agent: NA, (ph: ) JOJO Andrade LISW-S Wire Technician, Cancer Medicine ([facility]) [facility] For Evening (4:30pm-8am) and Weekend SW needs please call [phone] or page [phone] [facility] 06-15-2025 Nurse Note 06/15/25 1247 Referral Information Arrived From home or self-care Final Discharge Planning Discharge Disposition [facility] Facility Services at Discharge [facility];Physical Therapy;Occupational Therapy Community Agency Name(s) For Handoff See note Name For Handoff See note Phone For Handoff see note Fax For Handoff see note Additional Community Agency Name(s) no Plan Plan Pt to return to [place], [place] and daughter will transport him to appointments Patient/Family In Agreement With Plan yes Transport Request Mode of Transfer Private Vehicle [facility] PCR Discharge Note Patient discussed in medical rounds for discharge to SNF. PCRM met with the patient/family to discuss final discharge plan. Services for Discharge [facility] in [place], [place] SNF- for PT/OT/SNF Consults with Final Discharge Recommendations PT/OT- SNF RD- RD consult: Diet: Heart healthy but liberalized to regular diet to provide additional menu items and promote PO intake Will send oral supplements, Apple Ensure Clear x1/d + Magic Cup x1/d to aid in calorie and protein intake during admission Agree with trial of appetite stimulant (Remeron) Geriatrics consult for further fatigue workup: Start Mirtazapine 7.5 mg nightly (lower than initial 15 mg for improved tolerability and appetite stimulation) - TELEGRAPHIC TYPEWRITER INSTALLER consult: On swallow eval, liquids seemed ok, but he is coughing with food (puree and solid). Since he's malnourished and without respiratory concerns, he's ok to stay on his current diet but recommend MBS MBS (06/13): cleared for regular solids with thin liquid. However, has oral dysphagia and etiology is unclear at this time. Question if malnutrition/failure to thrive is contributing to increased weakness and reduced oral efficiency. Also question if possible cranial nerve involvement presumed reduced sensation. Swallow safety is preserved; oral swallow efficiency is impaired. Recommended Rehab Activities: IOPI or Tongueometer, bolus challenge swallows Lines/Tubes/Drains/Wounds/Supplie s PIV- to be removed prior to discharge Medications No barriers anticipated in obtaining discharge medications. No prior authorizations anticipated. Reconciliation of medications to be completed by the medical team. Durable Medical Equipment SNF to provide Choice Was Patient Choice Provided: Yes Transportation Transportation will be provided by yaneth castañeda. Education Discharge education provided by the medical team and updated in the After Visit Summary. Bedside nurse to call/fax AVS, DEDRA, and Dc summary Follow Up(s) Any follow up requested by the medical team arranged. Appointments in the After Visit Summary. 06/21/2025 10:00 AM MARQUITA HOBSON BLOOD DRAW, [facility] Clinical Lab [facility] 1 Arrive at: Arrive to [facility] 1st Floor Registration. Appointments are taken in order of appointment time, not by arrival time CORRELL 06/21/2025 11:20 AM Duglas Walsh [facility] Arrive at: Arrive to [facility] First Floor Registration CORRELL 06/21/2025 1:00 PM MM 9 SP D, [facility] Arrive at: Arrive to [facility] Floor Registration CORRELL 07/19/2025 10:45 AM MARQUITA HOBSON BLOOD DRAW, [facility] Clinical Lab [place] [address] Arrive at: Arrive to [facility] 1st Floor Registration. Appointments are taken in order of appointment time, not by arrival time CORRELL 07/19/2025 11:00 AM Oxana Antoine Espinosa [facility] Arrive at: Arrive to [facility] First Floor Registration CORRELL 07/19/2025 12:30 PM MMMP 11 SP D, [facility] Arrive at: Arrive to [facility] First Floor Registration CORRELL 08/16/2025 11:00 AM MARQUITA HOBSON BLOOD DRAW, [facility] Clinical Lab [place] [address] Arrive at: Arrive to [address] Floor Registration. Appointments are taken in order of appointment time, not by arrival time CORRELL ACO Patient: No Was Ambulatory PCRM added to the Care Team? No- Handoff criteria not met Was a handoff made to an Ambulatory PCRM? no The PCRM has updated the patient's nurse regarding the final discharge plan. Risk of Readmission: 9.7 Category Reference: Low: 0% - 5% Medium - Low: 5.1% - 10% Medium - High: 10.1% - 16% High: 16.1% - 100% Readmission Risk Interventions Documented: Yes No other discharge needs have been identified at this time. This plan was developed in collaboration with the patient and caregiver/preferred decision maker. Patient and family are in agreement with final discharge plan. Please refer to AVS and medical record for additional information. Patient instructed to call with questions. PCRM will continue to follow with medical team for any additional discharge planning needs. SYLVIA FairN, RN, PCRM If any changes to this individualized plan of care during evening and weekend hours and assistance is needed, please page the automation mechanic PCRM at [phone]. [facility] 06-15-2025 Hospital Discharge instructions Kayley Torres RN - 06/15/2025 12:47 PM EDT Images from the original note were not included. Miscellaneous Education [facility] The [employer] [facility] offers a series of monthly classes about integrative care. Integrative care involves other care methods that may be used along with your other cancer treatment. Learn about the role of exercise, diet and nutrition, manual and movement therapies as part of a cancer care program. Classes also provide a chance to share thoughts and concerns with other cancer survivors, their families and friends. For more information, contact [employer] at or visit our website at [email or web address] Falls Prevention Many falls can be prevented. Here are some things you can do. First, tell your doctor or nurse if you have fallen or nearly fallen. Ask if you could see a physical therapist (PT) to help you improve your strength and balance. Check with your doctor or pharmacist to see if any of the medicines that you take may increase your risk for falls. Have your vision checked each year. See your doctor if you are dizzy or weak with any illness. Wear comfortable shoes with low, broad heels and soles that cost coordinator. Drink enough liquid each day. Ask your doctor how much is enough. Consider using an emergency personal medical alert system. Get up slowly after sitting or lying down. Remove throw rugs, improve lighting, use reflective tape on stairs. Positive Coping Skills Coping skills are a way to decrease the negative effects of stress, anger, and anxiety. It is important to use these skills daily to maintain a manageable level of stress, decrease anxiety, and deal positively with anger. Examples of coping skills: Exercise or take a walk daily. Use relaxation or deep breathing. Engage in a positive recreation interest. Listen to calming music. Manage your time well. Talk to someone. Take a break. Eat a balanced diet. Maintain a regular sleep schedule. IMPORTANT: Automated Post Discharge Call Patient Information As part of your care, we will call you at the primary number we have on file, the day after you are discharged at 9:30 a.m. to check on you. Please expect a two-minute automated telephone call from the hospital. This call will come from [phone]. If you miss the first call, the hospital will text you instead of sending an automated call. You will have the option of responding to the text with your cell phone. If a third attempt is needed, you will receive a call. If you are unable to answer and want to respond, please call [phone] to complete this important evaluation. By answering the phone evaluation, a [facility] nurse will be notified if you have any questions or needs and call you back. If you have an immediate medical need call your doctor s office, or if you have a medical emergency call 911. Your Field Crop Farming Supervisor (PCRM) has arranged your appointments for follow up based on your preference of where you would like to continue your care. If you are unable to attend appointments that have been arranged for you, it is your responsibility to call to reschedule at least 48 hours prior to the appointment date. Your PCRM has arranged additional care needs such as home health, infusion services, or durable medical equipment based on your preference and options available by your insurance and local agencies. Your After Visit Summary (AVS) has provided you with instructions for your discharge. It is your responsibility to ask questions if you have any. Please contact your medical care team at the numbers listed if you should have any additional questions. BERKLEY Fair, RN, [facility] Kayley Torres RN - 06/15/2025 12:47 PM EDT Activity: Please follow these instructions: You may perform the following activities: -Resume your usual activities without restrictions. -Take rest periods during the day as needed. -Walk as much as you can to increase your strength and endurance. Kayley Torres RN - 06/15/2025 12:47 PM EDT Diet: Your doctor has recommended that you follow these diet instructions at home. Refer to the patient education materials you received during your hospital stay. If you would like more nutrition counseling, ask your doctor about making an appointment with an outpatient dietitian. No restrictions-usual diet -You are to resume your usual diet at home. Kayley Torres RN - 06/15/2025 12:47 PM EDT Notify Your Doctor or Nurse if you have any of the following: Bleeding or bruising If you have bleeding, apply pressure to the site and hold the pressure firmly for 5 minutes. If the bleeding continues, apply pressure again and call 911. If the bleeding stopped, call your doctor to report it. Catheter or tube problems Call your doctor or nurse if you have problems with your tube or catheter such as it breaks or leaks, falls out, is not able to be flushed and has drainage coming from around the tube site. Decreased Circulation Call your doctor or nurse if you have swelling, numbness or loss of feeling and color change in the skin to either very pale or blue malcolm in color. Airway changes: Call 911 if you suddenly have trouble breathing, hoarseness in your voice that does not clear, problems swallowing, shortness of breath and your trach came out. Decreased Urination Call your doctor or nurse if you are not able to urinate after 12 hours. Deep Vein Thrombosis Symptoms Call your doctor or nurse right away if you have any signs of blood clots such as -Tender, swollen or reddened areas anywhere in your leg. -Numbness or tingling in your lower leg or calf, or at the top of your leg or groin -Skin on you leg looks pale or blue or feels cold to touch -Chest pain or have trouble breathing -Fever or chills Fever, Chills, or Flu Call your doctor or nurse if you have a temperature greater than 100.5 degrees F and/or chills. GI Bleed Symptoms Call your doctor or nurse if you have signs of slow blood loss such as: -Black tarry bowel movements -Cold hands and feet -Weakness Call 911 if you suddenly have signs of blood loss such as: -Vomiting blood -Fast heart rate -Feeling faint or blacking out -Passing bright red blood from your rectum Nausea and Vomiting Call your doctor or nurse if you have nausea and vomiting that continues more than 24 hours, will not let you keep medicine down and will not let you keep fluids down Neurological Changes Call your doctor or nurse if you have: -A headache that does not ease with pain medication after 2 hours. -Mental confusion -Increased sleepiness -New onset of arm or hand weakness and leg or feet weakness -New or worse problems with talking -New or worse problems with balance or walking -A seizure Respiratory Changes Call your doctor or nurse if you have a cough that gets worse and blood in the sputum you cough up Unrelieved Pain Call your doctor or nurse if your pain gets worse or is not eased 1 hour after taking your pain medicine. Urinary Tract Infection Symptoms Call your doctor or nurse if you have signs of a urinary tract infection such as: -Urine is cloudy, bloody or has a bad odor -You leak urine or you have to urinate more often -You feel burning when you urinate -You have a temperature greater than 100.5 Wound Infection Symptoms Call your doctor or nurse right away if you have signs of infection at you wound such as: -More pain around the wound -Change in the amount , color and odor of drainage -The skin around the wound feels warm or has red streaks -The wound separates or opens up -You have a temperature greater than 100.5 documented in this encounter [facility] 06-15-2025 Nurse Note Discharge Planning for Facilities Review Options for discharge have been discussed with patient and family. Patient and family agree the post hospital care needs will be better met at a SNF upon discharge. Inpatient Admit Order (ALOC) Date or Dates of 3 Day Qualifying Stay: 06/10/2025 Background Information/ Hospital Overview: Patient is a 89 y.o. 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 . Patient requiring ongoing medical management, rehabilitation, education in a post-acute care facility due to the following care needs: [facility] Needs: Pain management Patient care training and assistance with an exercise program (ROM, pulmonary, or cardiac) Patient care training and assistance for safe performance of ADL's Line / tube / drain type / Line / tube / drain care N/A Wound Care N/a Oxygen requirements / airway Room Air Isolation Type (if needed) N/A Diet (or anticipated diet if currently NPO) Regular Lab work: type and frequency N/A Transfusion support needs (if needed) N/A Chemo and/or Radiation Plans after Discharge: No Chemo or Radiation at discharge Speciality Medications: (specific chemotherapy if needed / IV antibiotics) N/A Follow up: 06/21/2025 10:00 AM MARQUITA HOBSON BLOOD DRAW, [facility] Clinical Lab [facility] 1 Arrive at: Arrive to [address] Registration. Appointments are taken in order of appointment time, not by arrival time CORRELL 06/21/2025 11:20 AM Duglas Walsh [facility] Arrive at: Arrive to [facility] First Floor Registration CORRELL 06/21/2025 1:00 PM MMMP 9 SP D, [facility] Arrive at: Arrive to [facility] Floor Registration CORRELL 07/19/2025 10:45 AM MARQUITA HOBSON BLOOD DRAW, [facility] Clinical Lab [facility] 1 Arrive at: Arrive to [address] Registration. Appointments are taken in order of appointment time, not by arrival time CORRELL 07/19/2025 11:00 AM Oxana Espinosa [facility] Arrive at: Arrive to [facility] First Floor Registration CORRELL 07/19/2025 12:30 PM MMMP 11 SP D, [facility] Arrive at: Arrive to [facility] Floor Registration CORRELL 08/16/2025 11:00 AM MARQUITA HOBSON BLOOD DRAW, [facility] Clinical Lab [facility] 1 Arrive at: Arrive to [address] Registration. Appointments are taken in order of appointment time, not by arrival time CORRELL 08/16/2025 11:20 AM Duglas Walsh [facility] Arrive at: Arrive to [facility] Registration Rehabilitation Needs: Ongoing assessment of rehabilitation needs and potential Supervision of therapeutic exercises or activities to ensure patient safety and treatment effectiveness Gait Evaluation and training 6-Clicks/AM-PAC Score: 14 Transportation Needs: No- daughter Tricia will take him to appointments Family Support / Prior Living Environment: Patient lives alone in a house and was independent prior to admission. Tricia, daughter, will be willing to work with the facility to obtain education if there are complex teaching services needed for the patient. Primary Diagnosis: Active Hospital Problems Diagnosis Failure to thrive in adult [R62.7] Kayley Torres, SYLVIAN, RN, PCRM [facility] 06-15-2025 Telephone encounter Note Patient is still admitted as of 06/15 @0924 [facility] 06-15-2025 Plan of care note Problem: PT - General Goals Goal: Supine <-> Sit Transfers - Patient will perform supine to/from sit transfers with independence and without use of hospital bed features in order to improve functional mobility and safety. Outcome: Ongoing Goal: Sit <-> Stand Transfers - Patient will perform sit to/from stand transfers with modified independence and least restrictive device in order to improve functional mobility and safety. Outcome: Ongoing Goal: Standing Endurance/Balance - Patient will perform standing balance tasks for 10 min with modified independence and least restrictive device while maintaining an RPE of less than 3/10 to improve endurance and safety with standing tasks. Outcome: Ongoing Goal: Ambulation - Patient will ambulate 250 feet with modified independence and least restrictive device to improve ability to safely navigate home and community. Outcome: Ongoing Goal: Strength - Patient will adhere to understanding of exercise program. Outcome: Ongoing [facility] 06-15-2025 Nurse Note Messaged Cancer Medicine Team G: Did a random bladder scan on pt, had been over 6 hrs since last void, bladder scan amount was 620 mls. Pt attempted to void and was able urinate 50 mls. Did a post void bladder scan amount was 570 mls. Straight cath ordered by guillaume for post void of 570 mls. Straight cath amount was 500 mls. Post straight cath bladder scan was 0 mls. [facility] 06-15-2025 Plan of care note Problem: Adult Inpatient Plan of Care Goal: Plan of Care Review Outcome: Progressing Goal: Patient-Specific Goal (Individualized) Outcome: Progressing Goal: Absence of Hospital-Acquired Illness or Injury Outcome: Progressing Goal: Optimal Comfort and Wellbeing Outcome: Progressing Goal: Readiness for Transition of Care Outcome: Progressing Problem: Oral Intake Inadequate Goal: Improved Oral Intake Outcome: Progressing Sebastian reassessed - no changes from previously documented nursing assessment unless otherwise noted in the flowsheet. Sebastian denied any pain this shift. Call light within reach, bed exit alarm on. T [facility] 06-14-2025 Nurse Note This PCRM spoke with the patient s daughter, Tricia, regarding her father's upcoming medical appointments and potential discharge planning. Tricia confirmed that he has a scheduled appointment at the [facility] on 06/20. Tricia expressed that if her father requires rehabilitation, she would prefer placement at [facility] in [place], as he had previously stayed there and had a positive experience. She stated that once he improves, he would return to his own residence. Regarding ongoing treatment, Tricia shared that if her father begins immunotherapy, he will likely have frequent hospital visits. However, if he does not proceed with immunotherapy, his condition may deteriorate. Tricia remains uncertain about the next steps in her father's care and will continue to monitor his status closely. BERKLEY Fair, RN, PCRM T [facility] 06-14-2025 Telephone encounter Note Patient is still admitted as of 06/14 @ 1109 T [facility] 06-14-2025 Plan of care note Problem: Adult Inpatient Plan of Care Goal: Readiness for Transition of Care Outcome: Progressing Problem: Adult Inpatient Plan of Care Goal: Optimal Comfort and Wellbeing Outcome: Progressing Problem: Adult Inpatient Plan of Care Goal: Absence of Hospital-Acquired Illness or Injury Outcome: Progressing Problem: Adult Inpatient Plan of Care Goal: Patient-Specific Goal (Individualized) Outcome: Progressing Problem: Oral Intake Inadequate Goal: Improved Oral Intake Outcome: Progressing [facility] 06-13-2025 Plan of care note Problem: PT - General Goals Goal: Supine <-> Sit Transfers - Patient will perform supine to/from sit transfers with independence and without use of hospital bed features in order to improve functional mobility and safety. Outcome: Ongoing Goal: Sit <-> Stand Transfers - Patient will perform sit to/from stand transfers with modified independence and least restrictive device in order to improve functional mobility and safety. Outcome: Ongoing Goal: Standing Endurance/Balance - Patient will perform standing balance tasks for 10 min with modified independence and least restrictive device while maintaining an RPE of less than 3/10 to improve endurance and safety with standing tasks. Outcome: Ongoing Goal: Ambulation - Patient will ambulate 250 feet with modified independence and least restrictive device to improve ability to safely navigate home and community. Outcome: Ongoing [facility] 06-13-2025 Plan of care note Problem: Dysphagia Goal: Bolus challenge - Patient will accept trials of pureed and/or solid trials, given fading cues for use of strategies to improve bolus control/timing of swallow initiation with no signs of aspiration for improved efficiency of po intake Outcome: Ongoing Goal: IOPI - Patient will participate in initial IOPI pressure (kPA) assessment session to identify initial anterior and posterior strength measures to determine need for skllied intervention Outcome: Ongoing [facility] 06-13-2025 Procedure note Associated Ord er(s): SPEECH MODIFIED BARIUM SWALLOW Acute Care Speech Language Pathology Modified Barium Swallow Evaluation Note Clinical Recommendations Method of Nutrition: PO Intake: oral nutrition and hydration Medication Administration: Per patient preference Recommended Diet Grade: regular (IDDSI 7) Recommended Liquid Consistency: liquid- thin (IDDSI 0) Mealtime Strategies: Upright positioning, Assist with dentures/partials Type of Cues/Supervision: intermittent supervision Oral Swallow Strategies: Posterior head tilt (pt performs naturally) Other Recommendations: Oral care Therapy frequency recommendation(s) in acute: 3 times a week Discharge destination recommendation: Deferred to PT/OT recomendations related to mobility Pain General Pain Documentation (Adult, OB, Peds) Presence of Pain: denies pain/discomfort Presence of Pain Score (Auto-calculated): 0 Comfort/Acceptable General Pain Level/Goal: 0 Precautions Patient Safety Communication Prior to Visit: Nursing Lines/Tubes/Drains (Rehab Status): No critical lines at this time Systems Review Onset of Illness/Injury or Surgery Date (TELEGRAPHIC TYPEWRITER INSTALLER): 06/10/25 Communication Status: Verbal, No deficits noted Hearing Acuity: Impaired Behavioral Observations: pleasant, cooperative Respiratory Status: Room air Respiratory Status O2 Device: room air O2 Sat (%): 96 % Resp Rate: 16 Acute TELEGRAPHIC TYPEWRITER INSTALLER Outcomes Tracking Communicate basic wants and needs?: yes Demo insight/appreciation of deficits?: yes Complete basic problem solving?: yes History of Present Illness: Sebastian Hannon is a 89 y.o. male who was admitted on 06/10/2025 2/2 nausea, decreased appetite, fatigue. 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 No pulmonary embolism. No evidence of acute disease. 2. A few small lung nodules, the largest of which measures 6 mm. 3. Small soft tissue nodule corresponding to the hypermetabolic lesion seen on the prior PET. 4. Cardiomegaly and coronary artery disease. XR Chest 06/09/25: IMPRESSION: Cardiomegaly with clear lungs. Predisposing dysphagia risk factors: FTT Signs of possible chronic dysphagia: poor PO intake, deconditioning, malnutrition (severe) Precipitating dysphagia risk factors: none known TELEGRAPHIC TYPEWRITER INSTALLER History: Previous Exams and Therapy Previous Exams and Therapy: None Prior Results: n/a Baseline method of nutrition: Oral nutrition/hydration Regular (IDDSI 7) Liquid - thin (IDDSI 0) Current method of nutrition: Oral nutrition/hydration Regular (IDDSI 7) Liquid- thin (IDDSI 0) Clinical Reasons for Exam Patient Reported Dysphagia Symptoms: Yes Dysphagia Symptoms: Coughing with oral intake (occasional) Reason(s) for Exam: Clinical concerns for airway events, Clinical concerns for acute dysphagia Acute Dysphagia Risk Factors: none known Chronic Dysphagia Risk Factors: failure to thrive Subjective: Upon arrival to fluoro suite, pt in transport cart. TELEGRAPHIC TYPEWRITER INSTALLER assisted radiology staff with transferring patient to fluoro chair. Education provided to patient re: purpose of exam and plan to complete PO trials during today's assessment. Pt in agreement to participate. Oral Mechanism Exam Oral Mucosa Healthy appearing mucosa Oral Secretions Normal Dentition Upper denture, Lower denture Face: Sensory Function Did not test Face: Motor Function Symmetrical at rest Mandible Functional bilateral symmetry, range of motion and perceived strength of masseter and temporal muscles Lips Symmetrical at rest and during movement Tongue Symmetrical, functional range of motion in all planes, Impaired strength clinically, Impaired sensation Soft Palate Symmetrical, bilateral elevation with speech tasks, Uvula is midline Gag Response Did not test Neck and Shoulders (Reduced ROM) Cranial Nerve Impairments XII Hypoglossal Nerve (question potential cranial nerve impairment given reduced anterior to posterior bolus movement) GRBAS: A perceptual rating scale for voice parameters Rating scale of 0 to 3 (0 = no impairment, 1 = minimal to mild impairment, 2 = moderate impairment, 3 = severe impairment) Grade of dysphonia (G): 1 Roughness (R): 1 Breathiness (B): 0 Asthenia (A): 1 Strain (S): 0 Procedure Details: Patient was positioned : Chair Exam Was Conducted In: Lateral Barriers to Completion of A-P View: Mobility limitations/restrictions (kyphotic) Consistencies Assessed: Thin Liquid Barium: Spoon, Cup, Straw Mildly Thick/Fancy Farm Liquid Barium: Spoon, Straw Moderately Thick/Honey Liquid Barium: Spoon Pudding Barium: Spoon Regular Solid Contrasted with Barium: Cracker/Cookie Oral Phase Lip Closure: WFL, no labial escape Tongue Control During Bolus Hold: Cohesive bolus between tongue to palatal seal Bolus Preparation/Mastication: Slow prolonged chewing/mashing with complete recollection Bolus Transport/Lingual Motion: repetitive/disorganized tongue motion Oral Residue: residue collection on oral structures Location of Oral Residue: tongue Initiation of Pharyngeal Swallow: bolus head at posterior laryngeal surface of epiglottis Pharyngeal Phase Soft Palate Elevation: no bolus between soft palate and posterior pharyngeal wall Laryngeal Elevation: partial movement of thyroid cartilage and/or partial approximation of arytenoids to epiglottic petiole Anterior Hyoid Excursion: partial anterior movement Epiglottic Movement: complete inversion Laryngeal Vestibule Closure-Height of Swallow: incomplete Pharyngeal Stripping Wave: present - complete Pharyngeal Contraction in A/P View: Unable to assess as A-P view not completed Pharyngoesophageal Segment Opening: complete distention and complete duration, no obstruction of flow Tongue Base Retraction: narrow column of contrast between tongue base and posterior pharyngeal wall Pharyngeal Residue: residue collection on pharyngeal structures Location of Pharyngeal Residue: diffuse (>3 areas) Esophageal Phase Esophageal Clearance In The Upright Position: Unable to fully assess via complete esophageal screen Penetration/Aspiration Scale: Thin: 1 - Material does not enter the airway, 3 - Material enters the airway, remains above the vocal folds, and is not ejected from the airway Liquid- mildly thick (IDDSI 2)/nectar: 1 - Material does not enter the airway Liquid- moderately thick (IDDSI 3)/honey: 1 - Material does not enter the airway Dysphagia- pureed (IDDSI 4) via tsp: 1 - Material does not enter the airway Regular Solid: 1 - Material does not enter the airway Compensatory Strategies Trialed: Liquid wash Liquid Wash: Effective to reduce residue Swallowing Outcomes: Functional Oral Intake Scale: Level 5 - Total oral intake of multiple consistencies requiring special prep Dysphagia Outcome Severity Scale (RAMO): Level 5: Mild dysphagia Impressions: Mild-moderate oral dysphagia 2/2 to unclear etiology. Oral phase marked by slow manipulation of bolus including repetitive disorganized tongue motion, prolonged chewing/mashing and reduced anterior to posterior movement of the bolus. Pt noted to often utilize head tilt backwards to assist with bolus transfer from anterior to posterior lingual surface. Bolus would typically remain on posterior tongue/valleculae until swallow could be initiated. Pt required greater than 30 seconds to move bolus through oral cavity and initiate swallow with solid textures (puree and cracker). Pharyngeal phase remains intact. Inconsistent penetration noted with thin liquids via straw, though eventually cleared with subsequent swallows and did not reach the level of the vocal cords. Trace pharyngeal residue present, but effectively clears with intermittent liquid wash. Dysphagia etiology is unclear at this time. Question if malnutrition/failure to thrive is contributing to increased weakness and reduced oral efficiency. Also question if possible cranial nerve involvement presumed reduced sensation. Swallow safety is preserved; oral swallow efficiency is impaired. Diet modification is not indicated. Swallow prognosis is unknown, given unclear etiology. Pt appears to be a fair for behavioral swallow rehabilitation. Diet Recommendation: Regular Solids with Thin Liquid (IDDSI 0); Meds Per Pt Preference Plan for repeat instrumental: n/a - repeat instrumental not warranted unless pt demonstrates significant change to respiratory status (including increased oxygen needs or changes to chest imaging) or pt begins to demonstrate increased overt clinical signs/symptoms of aspiration with po intake. Risk Management: intermittent supervision; pt may benefit from smaller more frequent meals given increased time necessary to complete meals. Therapy: 3x/week Rehab potential: good, to achieve stated therapy goals Plan for next session: Po trials; IOPI assessment Recommended Rehab Activities: IOPI or Tongueometer, Bolus challenge swallows Acute TELEGRAPHIC TYPEWRITER INSTALLER Goals Plan of Care by BERTRAM Turcios at 06/13/2025 11:20 AM Version 1 of 1 Problem: Dysphagia Goal: Bolus challenge - Patient will accept trials of pureed and/or solid trials, given fading cues for use of strategies to improve bolus control/timing of swallow initiation with no signs of aspiration for improved efficiency of po intake Outcome: Ongoing Goal: IOPI - Patient will participate in initial IOPI pressure (kPA) assessment session to identify initial anterior and posterior strength measures to determine need for skllied intervention Outcome: Ongoing Patient Education/Instruction Learners: Patient Education provided: Dysphagia recommendations/impressions, Dysphagia recommendation risk: benefit analysis Teaching method: Verbal Education/Instruction Learner response: Applies knowledge, Needs review Learning preferences: Auditory Learning considerations: Hearing Impairment Patient Instruction/Education comments: Education re: role of TELEGRAPHIC TYPEWRITER INSTALLER, purpose for exam and results of MBS. Speech Language Pathologist: BERTRAM Turcios Time In: 1120 Time Out: 1143 Total Visit Time: 23 minutes Total Treatment Time (skilled, billable minutes): 23 minutes Initial Evaluation/Screen Completed?: yes Non-billable assistance during session: n/a Assisted by during session: Surface Water Manager PPE used during patient interaction: gloves Patient location/status at end of session: (cart for transport back to room) TELEGRAPHIC TYPEWRITER INSTALLER Evaluation and Treatment Time MBS/Motion Fluoroscopic Swallowing Eval 36334: 23 Upon discontinuation of Acute Care Speech Therapy Services or patient discharge from the hospital this note represents the current Speech Therapy Discharge Summary [facility] Work Phone: 06-13-2025 Procedure note Associated Ord er(s): SPEECH MODIFIED BARIUM SWALLOW Acute Care Speech Language Pathology Modified Barium Swallow Evaluation Note Clinical Recommendations Method of Nutrition: PO Intake: oral nutrition and hydration Medication Administration: Per patient preference Recommended Diet Grade: regular (IDDSI 7) Recommended Liquid Consistency: liquid- thin (IDDSI 0) Mealtime Strategies: Upright positioning, Assist with dentures/partials Type of Cues/Supervision: intermittent supervision Oral Swallow Strategies: Posterior head tilt (pt performs naturally) Other Recommendations: Oral care Therapy frequency recommendation(s) in acute: 3 times a week Discharge destination recommendation: Deferred to PT/OT recomendations related to mobility Pain General Pain Documentation (Adult, OB, Peds) Presence of Pain: denies pain/discomfort Presence of Pain Score (Auto-calculated): 0 Comfort/Acceptable General Pain Level/Goal: 0 Precautions Patient Safety Communication Prior to Visit: Nursing Lines/Tubes/Drains (Rehab Status): No critical lines at this time Systems Review Onset of Illness/Injury or Surgery Date (TELEGRAPHIC TYPEWRITER INSTALLER): 06/10/25 Communication Status: Verbal, No deficits noted Hearing Acuity: Impaired Behavioral Observations: pleasant, cooperative Respiratory Status: Room air Respiratory Status O2 Device: room air O2 Sat (%): 96 % Resp Rate: 16 Acute TELEGRAPHIC TYPEWRITER INSTALLER Outcomes Tracking Communicate basic wants and needs?: yes Demo insight/appreciation of deficits?: yes Complete basic problem solving?: yes History of Present Illness: Sebastian Hannon is a 89 y.o. male who was admitted on 06/10/2025 2/2 nausea, decreased appetite, fatigue. 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 No pulmonary embolism. No evidence of acute disease. 2. A few small lung nodules, the largest of which measures 6 mm. 3. Small soft tissue nodule corresponding to the hypermetabolic lesion seen on the prior PET. 4. Cardiomegaly and coronary artery disease. XR Chest 06/09/25: IMPRESSION: Cardiomegaly with clear lungs. Predisposing dysphagia risk factors: FTT Signs of possible chronic dysphagia: poor PO intake, deconditioning, malnutrition (severe) Precipitating dysphagia risk factors: none known TELEGRAPHIC TYPEWRITER INSTALLER History: Previous Exams and Therapy Previous Exams and Therapy: None Prior Results: n/a Baseline method of nutrition: Oral nutrition/hydration Regular (IDDSI 7) Liquid - thin (IDDSI 0) Current method of nutrition: Oral nutrition/hydration Regular (IDDSI 7) Liquid- thin (IDDSI 0) Clinical Reasons for Exam Patient Reported Dysphagia Symptoms: Yes Dysphagia Symptoms: Coughing with oral intake (occasional) Reason(s) for Exam: Clinical concerns for airway events, Clinical concerns for acute dysphagia Acute Dysphagia Risk Factors: none known Chronic Dysphagia Risk Factors: failure to thrive Subjective: Upon arrival to fluoro suite, pt in transport cart. TELEGRAPHIC TYPEWRITER INSTALLER assisted radiology staff with transferring patient to fluoro chair. Education provided to patient re: purpose of exam and plan to complete PO trials during today's assessment. Pt in agreement to participate. Oral Mechanism Exam Oral Mucosa Healthy appearing mucosa Oral Secretions Normal Dentition Upper denture, Lower denture Face: Sensory Function Did not test Face: Motor Function Symmetrical at rest Mandible Functional bilateral symmetry, range of motion and perceived strength of masseter and temporal muscles Lips Symmetrical at rest and during movement Tongue Symmetrical, functional range of motion in all planes, Impaired strength clinically, Impaired sensation Soft Palate Symmetrical, bilateral elevation with speech tasks, Uvula is midline Gag Response Did not test Neck and Shoulders (Reduced ROM) Cranial Nerve Impairments XII Hypoglossal Nerve (question potential cranial nerve impairment given reduced anterior to posterior bolus movement) GRBAS: A perceptual rating scale for voice parameters Rating scale of 0 to 3 (0 = no impairment, 1 = minimal to mild impairment, 2 = moderate impairment, 3 = severe impairment) Grade of dysphonia (G): 1 Roughness (R): 1 Breathiness (B): 0 Asthenia (A): 1 Strain (S): 0 Procedure Details: Patient was positioned : Chair Exam Was Conducted In: Lateral Barriers to Completion of A-P View: Mobility limitations/restrictions (kyphotic) Consistencies Assessed: Thin Liquid Barium: Spoon, Cup, Straw Mildly Thick/Fancy [place] Liquid Barium: Spoon, Straw Moderately Thick/Honey Liquid Barium: Spoon Pudding Barium: Spoon Regular Solid Contrasted with Barium: Cracker/Cookie Oral Phase Lip Closure: WFL, no labial escape Tongue Control During Bolus Hold: Cohesive bolus between tongue to palatal seal Bolus Preparation/Mastication: Slow prolonged chewing/mashing with complete recollection Bolus Transport/Lingual Motion: repetitive/disorganized tongue motion Oral Residue: residue collection on oral structures Location of Oral Residue: tongue Initiation of Pharyngeal Swallow: bolus head at posterior laryngeal surface of epiglottis Pharyngeal Phase Soft Palate Elevation: no bolus between soft palate and posterior pharyngeal wall Laryngeal Elevation: partial movement of thyroid cartilage and/or partial approximation of arytenoids to epiglottic petiole Anterior Hyoid Excursion: partial anterior movement Epiglottic Movement: complete inversion Laryngeal Vestibule Closure-Height of Swallow: incomplete Pharyngeal Stripping Wave: present - complete Pharyngeal Contraction in A/P View: Unable to assess as A-P view not completed Pharyngoesophageal Segment Opening: complete distention and complete duration, no obstruction of flow Tongue Base Retraction: narrow column of contrast between tongue base and posterior pharyngeal wall Pharyngeal Residue: residue collection on pharyngeal structures Location of Pharyngeal Residue: diffuse (>3 areas) Esophageal Phase Esophageal Clearance In The Upright Position: Unable to fully assess via complete esophageal screen Penetration/Aspiration Scale: Thin: 1 - Material does not enter the airway, 3 - Material enters the airway, remains above the vocal folds, and is not ejected from the airway Liquid- mildly thick (IDDSI 2)/nectar: 1 - Material does not enter the airway Liquid- moderately thick (IDDSI 3)/honey: 1 - Material does not enter the airway Dysphagia- pureed (IDDSI 4) via tsp: 1 - Material does not enter the airway Regular Solid: 1 - Material does not enter the airway Compensatory Strategies Trialed: Liquid wash Liquid Wash: Effective to reduce residue Swallowing Outcomes: Functional Oral Intake Scale: Level 5 - Total oral intake of multiple consistencies requiring special prep Dysphagia Outcome Severity Scale (RAMO): Level 5: Mild dysphagia Impressions: Mild-moderate oral dysphagia 2/2 to unclear etiology. Oral phase marked by slow manipulation of bolus including repetitive disorganized tongue motion, prolonged chewing/mashing and reduced anterior to posterior movement of the bolus. Pt noted to often utilize head tilt backwards to assist with bolus transfer from anterior to posterior lingual surface. Bolus would typically remain on posterior tongue/valleculae until swallow could be initiated. Pt required greater than 30 seconds to move bolus through oral cavity and initiate swallow with solid textures (puree and cracker). Pharyngeal phase remains intact. Inconsistent penetration noted with thin liquids via straw, though eventually cleared with subsequent swallows and did not reach the level of the vocal cords. Trace pharyngeal residue present, but effectively clears with intermittent liquid wash. Dysphagia etiology is unclear at this time. Question if malnutrition/failure to thrive is contributing to increased weakness and reduced oral efficiency. Also question if possible cranial nerve involvement presumed reduced sensation. Swallow safety is preserved; oral swallow efficiency is impaired. Diet modification is not indicated. Swallow prognosis is unknown, given unclear etiology. Pt appears to be a fair for behavioral swallow rehabilitation. Diet Recommendation: Regular Solids with Thin Liquid (IDDSI 0); Meds Per Pt Preference Plan for repeat instrumental: n/a - repeat instrumental not warranted unless pt demonstrates significant change to respiratory status (including increased oxygen needs or changes to chest imaging) or pt begins to demonstrate increased overt clinical signs/symptoms of aspiration with po intake. Risk Management: intermittent supervision; pt may benefit from smaller more frequent meals given increased time necessary to complete meals. Therapy: 3x/week Rehab potential: good, to achieve stated therapy goals Plan for next session: Po trials; IOPI assessment Recommended Rehab Activities: IOPI or Tongueometer, Bolus challenge swallows Acute TELEGRAPHIC TYPEWRITER INSTALLER Goals Plan of Care by BERTRAM Turcios at 06/13/2025 11:20 AM Version 1 of 1 Problem: Dysphagia Goal: Bolus challenge - Patient will accept trials of pureed and/or solid trials, given fading cues for use of strategies to improve bolus control/timing of swallow initiation with no signs of aspiration for improved efficiency of po intake Outcome: Ongoing Goal: IOPI - Patient will participate in initial IOPI pressure (kPA) assessment session to identify initial anterior and posterior strength measures to determine need for skllied intervention Outcome: Ongoing Patient Education/Instruction Learners: Patient Education provided: Dysphagia recommendations/impressions, Dysphagia recommendation risk: benefit analysis Teaching method: Verbal Education/Instruction Learner response: Applies knowledge, Needs review Learning preferences: Auditory Learning considerations: Hearing Impairment Patient Instruction/Education comments: Education re: role of TELEGRAPHIC TYPEWRITER INSTALLER, purpose for exam and results of MBS. Speech Language Pathologist: BERTRAM Turcios Time In: 1120 Time Out: 1143 Total Visit Time: 23 minutes Total Treatment Time (skilled, billable minutes): 23 minutes Initial Evaluation/Screen Completed?: yes Non-billable assistance during session: n/a Assisted by during session: Surface Water Manager PPE used during patient interaction: gloves Patient location/status at end of session: (cart for transport back to room) TELEGRAPHIC TYPEWRITER INSTALLER Evaluation and Treatment Time MBS/Motion Fluoroscopic Swallowing Eval [id number]: 23 Upon discontinuation of Acute Care Speech Therapy Services or patient discharge from the hospital this note represents the current Speech Therapy Discharge Summary documented in this encounter [facility] 06-13-2025 Telephone encounter Note Pt admitted to [facility] 06/10 on C19D from 06/09 ED visit at [facility]. Please see daughter's comments to [facility] of 06/13. [facility] 06-13-2025 Telephone encounter Note Called to cancel pts appt on 06/21 due to Bump. Spoke with Tricia and pt is very weak and unable to get out of bed and has been admitted. Tricia also mentioned that she is not sure if pt will be able to come to his appt on 06/21 or what next steps look like since he may be going to an assisted living rehab, Tricia is afraid of what may happen if he is unable to complete tx if he will loose his brown. CB: [phone] [facility] 06-13-2025 Plan of care note Problem: OT - ADLs Goal: Lower Body Dressing - Patient will complete lower body dressing tasks with modified independence using adaptive equipment/compensatory strategies as needed for improved ability to complete self-care activities. Outcome: Ongoing Problem: OT - Balance Goal: Balance - Standing - Patient will perform 10+ minutes of functional task in standing with modified independence and good balance to promote safety and improved balance required for self-care activities. Outcome: Ongoing Problem: OT - Endurance Goal: Endurance Functional Mobility - Patient will complete distance needed for common household mobility with modified independence, LRD and no needed rest breaks for improved tolerance to safely complete I/ADL's Outcome: Ongoing [facility] 06-13-2025 Nurse Note WOC/ET Nursing Consult Note: Pt consulted for what appears to be erythema/ abrasion. Wound appears superficial. Wash with soap and water leave open to air. Santiago of 17.Please re consult if additional needs arise. 06/13/25 0600 Plan Problem abrasion Current Plan no orders WOCT Visit Frequency PRN Last Date Seen 06/13/25 [facility] 06-12-2025 Plan of care note Endocrinology Plan of care note Sebastian Hannon is a 89 y.o. 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 Endocrinology consulted for concern for autoimmune thyroiditis. 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 He received his first dose on 05/21. He remains asymptomatic and denies diaphoresis, palpitations, anxiety or tremulousness. He had a CTPE on 06/09 however his thyroid function labs were drawn before the iodine contrast load, thus they should have not been impacted. In light of mild clinically disease and given the temporary character of the ICI driven thyroiditis, we will pursue monitoring for the moment and repeat of labs in a week. -Repeat Thyroid function labs:TSH and fT4 in 1 week -Follow TSI antibodies (ordered) Endocrinology will sign off. Please reach out with any questions or concerns Thank you for allowing us to participate in the care of Sebastian Hannon. Patient discussed with Dr. Echo MD Ty DO Sri Fellow, Division of Endocrinology, Diabetes, and Metabolism [facility] [address] [place] [address] [facility] Work Phone: 06-11-2025 Consult note Associated Order (s): IP CONSULT TO GERIATRICS Geriatric Inpatient Consult Service - New Consult Overall Impression and Plan: Advised adequate oral hydration and nutritional support. As advised by [employer] Farmworker to start Mirtazapine 7.5 mg nightly (lower than initial 15 mg for improved tolerability and appetite stimulation). Plan to monitor clinical status and labs closely. Reason for consult - Fatigue, Anorexia Admission date and reason - 06/10/2025 Primary Service - PCP - Uma De Paz HPI - The history was obtained from Daughter (Tricia) 89-year-old male with a history of metastatic melanoma on immunotherapy presents with fatigue, anorexia, and unintentional weight loss. He received his first immunotherapy on May 21, 2025. Approximately 10 days after treatment, he began experiencing progressive fatigue, generalized weakness, decreased appetite, and a 5-pound weight loss. His daughter reports associated symptoms of nausea and mild shakiness, but no vomiting. He denies confusion or altered mental status. Physical examination was unremarkable, and CAM screening was negative. Recent labs revealed rising troponins and elevated BNP, are being monitored by cardiology team, ECHO has been requested. Thyroid function tests showed mild abnormalities, and endocrinology has advised repeat testing in one week. Geriatric ROS: Functional status at baseline Basic ADLs - Independent Instrumental ADLs - Independent Current functional status Basic ADLs - Independent (but daughter appears he is fatigued and slowed to do things) Instrumental ADLs -Daughter appears he is fatigued and slowed to do things) Geriatric Syndromes Cognitive function and memory at baseline - Normal Prior history of delirium - No Falls/Mobility - No recent falls Sensory impairment - No Sleep habits - Normal Elder Abuse/Neglect -No concerns Review of Systems - No other symptoms/Complaint Past Medical History[1] Past Surgical History[2] Family History Problem Relation Age of Onset Cancer- Other Mother female cancer Myocardial Infarction Father Heart Failure Father Dementia Brother Parkinson Brother Heart Disease - Other Brother Other - Specify (skin biopsies) Brother Other - Specify (other) Brother Social History Socioeconomic History Marital status: Spouse name: Not on file Number of children: Not on file Years of education: Not on file Highest education level: Not on file Occupational History Not on file Tobacco Use Smoking status: Never Smokeless tobacco: Never Vaping Use Vaping status: Never Used Substance and Sexual Activity Alcohol use: Not Currently Drug use: Never Sexual activity: Not on file Other Topics Concern Not on file Social History Narrative Not on file Social Drivers of Health Financial Resource Strain: Not on file Food Insecurity: No Food Insecurity (06/10/2025) NCSS - Food Insecurity Worried About Running Out of Food in the Last Year: No Ran Out of Food in the Last Year: No Transportation Needs: No Transportation Needs (06/10/2025) NCSS - Transportation Lack of Transportation: No Physical Activity: Not on file Stress: Not on file Social Connections: Not on file Personal Safety: Not At Risk (06/10/2025) NCSS - Interpersonal Safety Feels Physically and Emotionally Safe: Yes Physically Hurt by Someone: No Humiliated or Emotionally Abused by Someone: No Housing Stability: At Risk (06/10/2025) NCSS - Housing/Utilities Has Housing: Yes Worried About Losing Housing: Yes Unable to Get Utilities: No Allergies - Latex and Penicillins Home Medications Reviewed - Current Outpatient Medications Medication Instructions Alfuzosin HCl 10 mg, DAILY amLODIPine (NORVASC) 2.5 mg, DAILY Atorvastatin (LIPITOR) 40 mg, DAILY Calcium 500-125 MG-UNIT Tab 1 tablet, DAILY Cholecalciferol (VITAMIN D) 4000 Units capsule 1 capsule, EVERY OTHER DAY Cyanocobalamin (VITAMIN B 12 PO) 1,000 mcg, DAILY Ferrous Sulfate (IRON) 325 (65 Fe) MG Tab 1 tablet, DAILY Fexofenadine (NIKUNJ ALLERGY) 180 mg, DAILY Finasteride (PROSCAR) 5 mg, DAILY EVERY MORNING Furosemide (LASIX PO) 60 mg, DAILY Hydroxychloroquine (PLAQUENIL) 200 mg, 2 TIMES DAILY Losartan (COZAAR) 50 mg, DAILY Metoprolol succinate (TOPROL-XL) 50 mg, 2 TIMES DAILY nitroGLYCERIN (NITROSTAT) 0.4 mg, EVERY 5 MINUTES NEEDED Stdkyuowh-Byyywipbub-rxhr (OPDUALAG IV) by Intravenous route. Spironolactone (ALDACTONE) 25 mg, DAILY EVERY MORNING warfarin (COUMADIN) 7.5 mg, DAILY Inpatient Medications Reviewed - amLODIPine 2.5 mg Oral Daily Fexofenadine 180 mg Oral Daily Finasteride 5 mg Oral QAM furOSEmide 60 mg Oral Daily [START ON 06/12/2025] Hydroxychloroquine 200 mg Oral Once per day on Wednesday And Hydroxychloroquine 200 mg Oral 2 times per day on Wednesday Losartan 50 mg Oral Daily Metoprolol succinate 75 mg Oral Daily Mirtazapine 15 mg Oral QHS potassium chloride 10 mEq Intravenous Once Followed by potassium chloride 10 mEq Intravenous Once Spironolactone 25 mg Oral QAM [Held by provider] warfarin 5 mg Oral Daily Acetaminophen, alum/mag hydrox.-simethicone, Ondansetron 4mg/2ml OR Ondansetron Physical Exam Blood pressure 149/69, pulse 64, temperature 97.7 F (36.5 C), temperature source Oral, resp. rate 12, height 1.778 m (5' 10 ), weight 68.4 kg (150 lb 12.7 oz), SpO2 100%. Constitutional: Appears well. No acute distress. Eyes and ENT grossly normal. Mouth: Tongue and gingiva are pink without lesions. Chest : Normal breathing sounds Cardiovascular: Irregular pulse, Normal Heart sounds. +1 edema of the extremities. Abdomen: Soft and nontender. Bowel sounds present in all four quadrants. No palpable organomegaly Skin: Inspection and palpation reveal that skin is intact without pathologic lesions, erythema, vesicles, discharge, or significant rash. No evidence of jaundice. Neurological: Cranial nerves II - XII intact.No sensory or motor deficits. Psychiatry/Mental Health: Alert and oriented to person, place, and time. No change in consciousness, Affect appropriate. Memory intact. Laboratory Data Reviewed Lab Results Component Value Date WBC 6.22 06/11/2025 HGB 7.7 (L) 06/11/2025 HCT 24.2 (L) 06/11/2025 PLATELET 183 06/11/2025 MCV 93.8 06/11/2025 Lab Results Component Value Date SODIUM 137 06/11/2025 POTASSIUM 3.6 06/11/2025 CHLORIDE 101 06/11/2025 CO2 27 06/11/2025 BUN 23 06/11/2025 CREATSERUM 1.12 06/11/2025 GLUCOSE 91 06/11/2025 Imaging studies Reviewed CTPE STUDY 1. No pulmonary embolism. No evidence of acute disease. 2. A few small lung nodules, the largest of which measures 6 mm. 3. Small soft tissue nodule corresponding to the hypermetabolic lesion seen on the prior PET. 4. Cardiomegaly and coronary artery disease. 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 Labs reviewed and physical exam completed. I reviewed PET scans which show Prostate cancer 2020 radiation seeds Pulmonary hypertension Rheumatoid arthritis Sinus bradycardia Valvular heart disease [2] Past Surgical History: Procedure Laterality Date PACEMAKER PLACEMENT 2020 and fibrillator PACEMAKER PLACEMENT 2010 HEART VALVE SURGERY 2006 valve replacement BACK SURGERY 1980 SKIN BIOPSY Cosigned by Virginia Bentley MD at 06/12/2025 2:44 PM EDT Associated attestation - Virginia Bentley MD - 06/12/2025 2:44 PM EDT Attending Physician Note (GC) I interviewed and examined this patient with Dr. Smiley on 06/11/2025. I reviewed the history and exam detailed in the note. I agree with the medical decision making with the following comment(s): Mr. 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 5# of weight loss noted with decline in appetite. Some nausea reported and no emesis. Hospital workup notable for metabolic derangements requiring repletion. Geriatric ROS notable for living independently with supportive family in his life. Functionally independent, walked well without a history of falls. Cooked for himself and had a good appetite previously. No issues with weight loss prior to starting immunotherapy. Currently, he states that he has no appetite. No pain in mouth, throat or pain in abdomen when swallowing. Exam is unremarkable, CAM negative. 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 Agree with starting Mirtazapine, but reducing to 7.5 mg at bedtime to reduce the potential for sedation. Please refer to Dr. Smiley's note for additional details. Virginia Bentley MD [facility] Work Phone: 06-11-2025 Consult note Associated Order (s): IP CONSULT TO GERIATRICS Geriatric Inpatient Consult Service - New Consult Overall Impression and Plan: Advised adequate oral hydration and nutritional support. As advised by [employer] to start Mirtazapine 7.5 mg nightly (lower than initial 15 mg for improved tolerability and appetite stimulation). Plan to monitor clinical status and labs closely. Reason for consult - Fatigue, Anorexia Admission date and reason - 06/10/2025 Primary Service - PCP - Uma De Paz HPI - The history was obtained from Daughter (Tricia) 89-year-old male with a history of metastatic melanoma on immunotherapy presents with fatigue, anorexia, and unintentional weight loss. He received his first immunotherapy on May 21, 2025. Approximately 10 days after treatment, he began experiencing progressive fatigue, generalized weakness, decreased appetite, and a 5-pound weight loss. His daughter reports associated symptoms of nausea and mild shakiness, but no vomiting. He denies confusion or altered mental status. Physical examination was unremarkable, and CAM screening was negative. Recent labs revealed rising troponins and elevated BNP, are being monitored by cardiology team, ECHO has been requested. Thyroid function tests showed mild abnormalities, and endocrinology has advised repeat testing in one week. Geriatric ROS: Functional status at baseline Basic ADLs - Independent Instrumental ADLs - Independent Current functional status Basic ADLs - Independent (but daughter appears he is fatigued and slowed to do things) Instrumental ADLs -Daughter appears he is fatigued and slowed to do things) Geriatric Syndromes Cognitive function and memory at baseline - Normal Prior history of delirium - No Falls/Mobility - No recent falls Sensory impairment - No Sleep habits - Normal Elder Abuse/Neglect -No concerns Review of Systems - No other symptoms/Complaint Past Medical History[1] Past Surgical History[2] Family History Problem Relation Age of Onset Cancer- Other Mother female cancer Myocardial Infarction Father Heart Failure Father Dementia Brother Parkinson Brother Heart Disease - Other Brother Other - Specify (skin biopsies) Brother Other - Specify (other) Brother Social History Socioeconomic History Marital status: Spouse name: Not on file Number of children: Not on file Years of education: Not on file Highest education level: Not on file Occupational History Not on file Tobacco Use Smoking status: Never Smokeless tobacco: Never Vaping Use Vaping status: Never Used Substance and Sexual Activity Alcohol use: Not Currently Drug use: Never Sexual activity: Not on file Other Topics Concern Not on file Social History Narrative Not on file Social Drivers of Health Financial Resource Strain: Not on file Food Insecurity: No Food Insecurity (06/10/2025) NCSS - Food Insecurity Worried About Running Out of Food in the Last Year: No Ran Out of Food in the Last Year: No Transportation Needs: No Transportation Needs (06/10/2025) NCSS - Transportation Lack of Transportation: No Physical Activity: Not on file Stress: Not on file Social Connections: Not on file Personal Safety: Not At Risk (06/10/2025) NCSS - Interpersonal Safety Feels Physically and Emotionally Safe: Yes Physically Hurt by Someone: No Humiliated or Emotionally Abused by Someone: No Housing Stability: At Risk (06/10/2025) NCSS - Housing/Utilities Has Housing: Yes Worried About Losing Housing: Yes Unable to Get Utilities: No Allergies - Latex and Penicillins Home Medications Reviewed - Current Outpatient Medications Medication Instructions Alfuzosin HCl 10 mg, DAILY amLODIPine (NORVASC) 2.5 mg, DAILY Atorvastatin (LIPITOR) 40 mg, DAILY Calcium 500-125 MG-UNIT Tab 1 tablet, DAILY Cholecalciferol (VITAMIN D) 4000 Units capsule 1 capsule, EVERY OTHER DAY Cyanocobalamin (VITAMIN B 12 PO) 1,000 mcg, DAILY Ferrous Sulfate (IRON) 325 (65 Fe) MG Tab 1 tablet, DAILY Fexofenadine (NIKUNJ ALLERGY) 180 mg, DAILY Finasteride (PROSCAR) 5 mg, DAILY EVERY MORNING Furosemide (LASIX PO) 60 mg, DAILY Hydroxychloroquine (PLAQUENIL) 200 mg, 2 TIMES DAILY Losartan (COZAAR) 50 mg, DAILY Metoprolol succinate (TOPROL-XL) 50 mg, 2 TIMES DAILY nitroGLYCERIN (NITROSTAT) 0.4 mg, EVERY 5 MINUTES NEEDED [id number] (OPDUALAG IV) by Intravenous route. Spironolactone (ALDACTONE) 25 mg, DAILY EVERY MORNING warfarin (COUMADIN) 7.5 mg, DAILY Inpatient Medications Reviewed - amLODIPine 2.5 mg Oral Daily Fexofenadine 180 mg Oral Daily Finasteride 5 mg Oral QAM furOSEmide 60 mg Oral Daily [START ON 06/12/2025] Hydroxychloroquine 200 mg Oral Once per day on Wednesday And Hydroxychloroquine 200 mg Oral 2 times per day on Wednesday Losartan 50 mg Oral Daily Metoprolol succinate 75 mg Oral Daily Mirtazapine 15 mg Oral QHS potassium chloride 10 mEq Intravenous Once Followed by potassium chloride 10 mEq Intravenous Once Spironolactone 25 mg Oral QAM [Held by provider] warfarin 5 mg Oral Daily Acetaminophen, alum/mag hydrox.-simethicone, Ondansetron 4mg/2ml OR Ondansetron Physical Exam Blood pressure 149/69, pulse 64, temperature 97.7 F (36.5 C), temperature source Oral, resp. rate 12, height 1.778 m (5' 10 ), weight 68.4 kg (150 lb 12.7 oz), SpO2 100%. Constitutional: Appears well. No acute distress. Eyes and ENT grossly normal. Mouth: Tongue and gingiva are pink without lesions. Chest : Normal breathing sounds Cardiovascular: Irregular pulse, Normal Heart sounds. +1 edema of the extremities. Abdomen: Soft and nontender. Bowel sounds present in all four quadrants. No palpable organomegaly Skin: Inspection and palpation reveal that skin is intact without pathologic lesions, erythema, vesicles, discharge, or significant rash. No evidence of jaundice. Neurological: Cranial nerves II - XII intact.No sensory or motor deficits. Psychiatry/Mental Health: Alert and oriented to person, place, and time. No change in consciousness, Affect appropriate. Memory intact. Laboratory Data Reviewed Lab Results Component Value Date WBC 6.22 06/11/2025 HGB 7.7 (L) 06/11/2025 HCT 24.2 (L) 06/11/2025 PLATELET 183 06/11/2025 MCV 93.8 06/11/2025 Lab Results Component Value Date SODIUM 137 06/11/2025 POTASSIUM 3.6 06/11/2025 CHLORIDE 101 06/11/2025 CO2 27 06/11/2025 BUN 23 06/11/2025 CREATSERUM 1.12 06/11/2025 GLUCOSE 91 06/11/2025 Imaging studies Reviewed CTPE STUDY 1. No pulmonary embolism. No evidence of acute disease. 2. A few small lung nodules, the largest of which measures 6 mm. 3. Small soft tissue nodule corresponding to the hypermetabolic lesion seen on the prior PET. 4. Cardiomegaly and coronary artery disease. 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 Labs reviewed and physical exam completed. I reviewed PET scans which show Prostate cancer 2020 radiation seeds Pulmonary hypertension Rheumatoid arthritis Sinus bradycardia Valvular heart disease [2] Past Surgical History: Procedure Laterality Date PACEMAKER PLACEMENT 2020 and fibrillator PACEMAKER PLACEMENT 2010 HEART VALVE SURGERY 2006 valve replacement BACK SURGERY 1980 SKIN BIOPSY Cosigned by Virginia Bentley MD at 06/12/2025 2:44 PM EDT Associated attestation - Virginia Bentley MD - 06/12/2025 2:44 PM EDT Attending Physician Note (GC) I interviewed and examined this patient with Dr. Smiley on 06/11/2025. I reviewed the history and exam detailed in the note. I agree with the medical decision making with the following comment(s): Mr. 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 5# of weight loss noted with decline in appetite. Some nausea reported and no emesis. Hospital workup notable for metabolic derangements requiring repletion. Geriatric ROS notable for living independently with supportive family in his life. Functionally independent, walked well without a history of falls. Cooked for himself and had a good appetite previously. No issues with weight loss prior to starting immunotherapy. Currently, he states that he has no appetite. No pain in mouth, throat or pain in abdomen when swallowing. Exam is unremarkable, CAM negative. 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 Agree with starting Mirtazapine, but reducing to 7.5 mg at bedtime to reduce the potential for sedation. Please refer to Dr. Smiley's note for additional details. Virginia Bentley MD Associated Order(s): IP CONSULT TO ENDOCRINOLOGY - NON DIABETES [facility] Endocrinology Consult Note- Initial Encounter (Autoimmune thyroiditis) Date of admission: 06/10/2025 Admission diagnosis: Failure to thrive in adult [R62.7] No admission procedures for hospital encounter. Referring Provider: Siria Wolfe, APR* Primary Care Provider: Uma De Paz Chief Complaint/Reason for Consult: Autoimmune thyroiditis Assessment and Plan: Sebastian Hannon is a 89 y.o. 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 . Endocrinology consulted for concern for autoimmune thyroiditis. 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 He received his first dose on 05/21. He remains asymptomatic and denies diaphoresis, palpitations, anxiety or tremulousness. He had a CTPE on 06/09 however his thyroid function labs were drawn before the iodine contrast load, thus they should have not been impacted. In light of mild clinically disease and given the temporary character of the ICI driven thyroiditis, we will pursue monitoring for the moment and repeat of labs in a week. -Repeat Thyroid function labs:TSH and fT4 in 1 week -Follow TSI antibodies (ordered) -Continue rest of care per primary Thank you for allowing us to participate in the care of Sebastian Hannon. Patient discussed with MD Evelina Castillo MD PGY-3 Internal Medicine History of Present Illness: Sebastian Hannon is a 89 y.o. male with PmHx of melanoma on immunotherapy:Nivolumab+Relatlima b last 05/21/25, HF, afib with pacemaker, on coumadin, HLD comes in to the ED for nausea, decreased appetite, fatigue concerning for failure to thrive. He was experiencing fatigue, anorexia and ELIZABETH. Pt states leading to admission he just doesn't have an interest or appetite in food. States he feels faitgue and weak at times with SOB on exertion. States he lives alone but is close with his daughter Tricia. Denies chest pain. States his legs have always been swollen and discolored. Wears compression hose. Has nausea at times without vomiting. States he wants to continue therapy with Dr. Walsh. His last checkpoint inhibitor dose was on 05/21 and he was reportedly doing well until about a week ago when he started to feel weak, and have a significantly reduced appetite, weakness, and shakiness. He has lost about 5 lbs because of this. Tricia, his child, notes that he has had ELIZABETH that is long standing and has not changed much in the past week. His only medication change this week was that he was taken off rosuvastatin for interactions with his therapies. Diet: Current Diet Orders Procedures DIET HEART HEALTHY - 4 GM SODIUM Standing Status: Standing Number of Occurrences: 1 Medical History: Past Medical History[1] Surgical History: Past Surgical History[2] Family History: Family History Problem Relation Age of Onset Cancer- Other Mother female cancer Myocardial Infarction Father Heart Failure Father Dementia Brother Parkinson Brother Heart Disease - Other Brother Other - Specify (skin biopsies) Brother Other - Specify (other) Brother Social History: Social History[3] Allergies: Allergies[4] Current Medications: Current Medications[5] Review of Systems: positives are in bold Negative unless stated on the HPI Physical Exam: Vitals: BP 165/72 (BP Location: Right arm, BP Position: Sitting) Pulse 64 Temp 97.8 F (36.6 C) (Oral) Resp 16 Ht 1.778 m (5' 10 ) Wt 68.4 kg (150 lb 12.7 oz) SpO2 99% BMI 21.64 kg/m Smoking Status Never , Body mass index is 21.64 kg/m ., Wt Readings from Last 1 Encounters: 06/10/25 68.4 kg (150 lb 12.7 oz) Physical Exam Vitals reviewed. Constitutional: General: He is not in acute distress. Appearance: He is not ill-appearing, toxic-appearing or diaphoretic. Comments: elderly HENT: Mouth/Throat: Mouth: Mucous membranes are moist. Eyes: Extraocular Movements: Extraocular movements intact. Pupils: Pupils are equal, round, and reactive to light. Cardiovascular: Rate and Rhythm: Normal rate and regular rhythm. Pulses: Normal pulses. Pulmonary: Effort: Pulmonary effort is normal. No respiratory distress. Breath sounds: Normal breath sounds. No wheezing. Chest: Chest wall: No tenderness. Abdominal: General: There is no distension. Palpations: Abdomen is soft. Tenderness: There is no abdominal tenderness. There is no right CVA tenderness, left CVA tenderness or guarding. Musculoskeletal: Cervical back: Normal range of motion. Right lower leg: Edema present. 1+ Left lower leg: Edema present. 1+ Neurological: General: No focal deficit present. Mental Status: He is alert and oriented to person, place, and time. Psychiatric: Mood and Affect: Mood normal. Behavior: Behavior normal. Procedure / Imaging / Lab Data: Pertinent procedure/imaging/lab data was reviewed/discussed with the patient today: Sodium Date Value Ref Range Status 06/11/2025 137 135 - 145 mmol/L Final Potassium Date Value Ref Range Status 06/11/2025 3.6 3.5 - 5.0 mmol/L Final Chloride Date Value Ref Range Status 06/11/2025 101 98 - 108 mmol/L Final CO2 Date Value Ref Range Status 06/11/2025 27 21 - 31 mmol/L Final BUN Date Value Ref Range Status 06/11/2025 23 7 - 25 mg/dL Final Creatinine Date Value Ref Range Status 06/11/2025 1.12 0.70 - 1.30 mg/dL Final Sodium Date Value Ref Range Status 06/11/2025 137 135 - 145 mmol/L Final Potassium Date Value Ref Range Status 06/11/2025 3.6 3.5 - 5.0 mmol/L Final Chloride Date Value Ref Range Status 06/11/2025 101 98 - 108 mmol/L Final CO2 Date Value Ref Range Status 06/11/2025 27 21 - 31 mmol/L Final BUN Date Value Ref Range Status 06/11/2025 23 7 - 25 mg/dL Final Creatinine Date Value Ref Range Status 06/11/2025 1.12 0.70 - 1.30 mg/dL Final Glucose Date Value Ref Range Status 06/11/2025 91 Nonfastin-179 mg/dL; Fastin-99 mg/dL Final Lab Results Component Value Date ALT 9 (L) 06/09/2025 AST 16 06/09/2025 ALKPHOS 94 06/09/2025 BILITOTAL 0.8 06/09/2025 BILIDIRECT 0.2 06/09/2025 Lab Results Component Value Date ALT 9 (L) 06/09/2025 Lab Results Component Value Date TSH 0.149 (L) 06/09/[address] Echo MD during consults Signed Geoffrey Linton MD, PhD PGY-3 IM [1] Past Medical History: Diagnosis Date A-fib Acute on chronic systolic heart failure Anemia Arrhythmia ASHD (arteriosclerotic heart disease) Atrial flutter Carotid bruit Hypertension Ischemic cardiomyopathy Ischemic colitis 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 Labs reviewed and physical exam completed. I reviewed PET scans which show Prostate cancer 2019 radiation seeds Pulmonary hypertension Rheumatoid arthritis Sinus bradycardia Valvular heart disease [2] Past Surgical History: Procedure Laterality Date PACEMAKER PLACEMENT 2020 and fibrillator PACEMAKER PLACEMENT 2010 HEART VALVE SURGERY 2007 valve replacement BACK SURGERY 1980 SKIN BIOPSY [3] Social History Tobacco Use Smoking status: Never Smokeless tobacco: Never Vaping Use Vaping status: Never Used Substance Use Topics Alcohol use: Not Currently Drug use: Never [4] Allergies Allergen Reactions Latex Itching Penicillins [5] Current Facility-Administered Medications: Acetaminophen (TYLENOL) tablet 650 mg, 650 mg, Oral, Q6H PRN, Natasha Hurtado PA-C alum/mag hydrox.-simethicone oral suspension 30 mL, 30 mL, Oral, Q6H PRN, Natasha Hurtado PA-C amLODIPine (NORVASC) tablet 2.5 mg, 2.5 mg, Oral, Daily, Natasha Hurtado PA-C, 2.5 mg at 06/11/25904 Fexofenadine (NIKUNJ) tablet 180 mg, 180 mg, Oral, Daily, Natasha Hurtado PA-C, 180 mg at 06/11/25904 Finasteride (PROSCAR) tablet 5 mg, 5 mg, Oral, QAM, Natasha Hurtado PA-C, 5 mg at 06/11/25904 furOSEmide (LASIX) tablet 60 mg, 60 mg, Oral, Daily, Natasha Hurtado PA-C, 60 mg at 06/11/25904 [START ON 06/12/2025] Hydroxychloroquine (PLAQUENIL) tablet 200 mg, 200 mg, Oral, Once per day on Wednesday AND Hydroxychloroquine (PLAQUENIL) tablet 200 mg, 200 mg, Oral, 2 times per day on Wednesday, Natasha Hurtado PA-C, 200 mg at 06/11/25904 Losartan (COZAAR) tablet 50 mg, 50 mg, Oral, Daily, Natasha Hurtado PA-C, 50 mg at 06/11/25904 Magnesium sulfate 1 g in dextrose 5% 100 mL premix IVPB, 1 g, Intravenous, Once, Last Rate: 100 mL/hr at 06/11/25913, 1 g at 06/11/25913 FOLLOWED BY Magnesium sulfate 1 g in dextrose 5% 100 mL premix IVPB, 1 g, Intravenous, Once, Cris Rosa PA-C Metoprolol succinate (TOPROL-XL) tablet XL 75 mg, 75 mg, Oral, Daily, Natasha Hurtado PA-C, 75 mg at 06/11/25904 Ondansetron 4mg/2ml (ZOFRAN) injection 4 mg, 4 mg, Intravenous, Q6H PRN OR Ondansetron (ZOFRAN) tablet 4 mg, 4 mg, Oral, Q4H PRN, Natasha Hurtado PA-C Potassium chloride 10 mEq in sterile water 100 ml premix IVPB, 10 mEq, Intravenous, Once, Last Rate: 100 mL/hr at 06/11/25 0918, 10 mEq at 06/11/25917 FOLLOWED BY Potassium chloride 10 mEq in sterile water 100 ml premix IVPB, 10 mEq, Intravenous, Once FOLLOWED BY Potassium chloride 10 mEq in sterile water 100 ml premix IVPB, 10 mEq, Intravenous, Once FOLLOWED BY Potassium chloride 10 mEq in sterile water 100 ml premix IVPB, 10 mEq, Intravenous, Once, Cris Rosa PA-C Spironolactone (ALDACTONE) tablet 25 mg, 25 mg, Oral, QAM, Natasha Hurtado PA-C, 25 mg at 06/11/25904 [Held by provider] warfarin (COUMADIN) tablet 5 mg, 5 mg, Oral, Daily, Natasha Hurtado PA-C Cosigned by Fermin Dodge MD at 06/11/2025 12:29 PM EDT Associated attestation - Fermin Dodge MD - 06/11/2025 12:29 PM EDT ATTENDING ATTESTATION: The patient was seen and examined independently by me at bedside. I have done the clinical exam personally and have worked together in formulating the plan of care along with Dr Linton. The case including the history, physical examination, assessment, and plan was discussed in detail with Dr Linton. I have reviewed the patient's charts and labs in detail. I agree with his assessment and plan. The patient was seen on 06/11/2025 Fermin Dodge MD Associated Order(s): IP CONSULT TO CARDIOLOGY - HEART FAILURE _ CARDIOLOGY CONSULT Patient Name: Sebastian Hannon Date of Consult: 06/11/2025 Reason for Consultation: worried about increasing trop and elevated bnp- worried he needs to go to [place] for Decomp HF ASSESSMENT AND PLAN: In summary, he is a 89 y.o. 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 CARDIAC PROBLEM LIST - Demand ischemia in the setting of dehydration, CKD - Pulmonary Hypertension, likely group 2 RVSP 69 mmHg on echocardiogram. RVSP 56 mmHg on RHC, - Heart failure with improved ejection fraction, s/p BiV ICD/WELFARE PROJECT MANAGER-D, NYHA Class II - CAD s/p cardiac bypass - OLGUIN to LAD (atretic), saphenous vein graft to [id number] and 2nd obtuse marginal branch, saphenous venous graft to PDA - s/p LAD stent 2018 - diagonal branch fistula connecting to descending aorta or intercostal arteries Not on ASA given remote intervention and on AC - Atrial fibrillation, paroxysmal - Bioprosthetic mitral valve replacement Mild MR on echo 12/2024, normal LV size and function. Data reviewed: EKG 06/10/25: AV paced rhythm Recommendations Recommend follow up echocardiogram Maintain goal INR 2-3 on warfarin Recommend holding Lasix until euvolemic, likely tomorrow- may need to re-assess his Lasix maintenance dose given his decreased appetite. Can restart with 40 mg Lasix PO daily (reduced from home dose of 60 mg) Patient was evaluated and discussed with the attending sport internship, Dr. Samson Jaffe . We will continue to follow for the results of the echocardiogram. Please do not hesitate to reach out with questions. Raifa Santos, Cardiovascular Disease Fellow, PGY-5 [facility] Objective HISTORY: It was my pleasure to see Mr. Sebastian Hannon in consultation at the [facility] on 06/11/2025 for evaluation of his ELIZABETH. He is a 89 y.o. 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 He notably was recently diagnosed with metastatic melanoma and underwent immunotherapy with fyxhgczkn-rditkvugnk-yopu. He was reportedly doing okay for about a week or so before he started to feel weak, and have a significantly reduced appetite, weakness, and shakiness. He has lost about 5 lbs because of this. Tricia notes that he has had ELIZABETH that is long standing and has not changed much in the past week. His only medication change this week was that he was taken off rosuvastatin for interactions with his therapies. He was seen by his sport internship a little over a month ago. She reports he was retaining some fluid at that time with increased leg swelling, and his Lasix was increased to 80 mg daily, but developed an DINESH. This was reduced to 60 mg daily and has maintained him well. She reports no signs that he appears volume overloaded, and he typically has not had hospitalizations for heart failure - typically it was for a fib (it has been years since recurrence. His daughter does note that his symptoms seem less likely like his cardiac symptoms. Today, he feels better than he did yesterday. He still continues to have a very reduced appetite. PAST MEDICAL HISTORY: SOCIAL HISTORY He reports that he has never smoked. He has never used smokeless tobacco. He reports that he does not currently use alcohol. He reports that he does not use drugs. FAMILY HISTORY His family history includes Cancer- Other in his mother; Dementia in his brother; Heart Disease - Other in his brother; Heart Failure in his father; Myocardial Infarction in his father; Parkinson in his brother; other in his brother; skin biopsies in his brother. He He indicated that his mother is . He indicated that his father is . He indicated that only one of his two brothers is alive. He indicated that his daughter is alive. 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 PAST SURGICAL HISTORY His has a past surgical history that includes pacemaker placement (2020); heart valve surgery (2006); back surgery (1980); pacemaker placement (2010); and skin biopsy. ALLERGIES Allergies[1] HOME MEDICATIONS Prescriptions Prior to Admission[2] CURRENT MEDICATIONS amLODIPine 2.5 mg Oral Daily Fexofenadine 180 mg Oral Daily Finasteride 5 mg Oral QAM furOSEmide 60 mg Oral Daily [START ON 06/12/2025] Hydroxychloroquine 200 mg Oral Once per day on Wednesday And Hydroxychloroquine 200 mg Oral 2 times per day on Wednesday Losartan 50 mg Oral Daily Metoprolol succinate 75 mg Oral Daily Spironolactone 25 mg Oral QAM [Held by provider] warfarin 5 mg Oral Daily REVIEW OF SYSTEMS: A full review of systems was performed and was negative unless otherwise noted in HPI. PHYSICAL EXAM: Intake/Output Summary (Last 24 hours) at 06/11/2025 0728 Last data filed at 06/11/2025 0600 Gross per 24 hour Intake -- Output 300 ml Net -300 ml Temp: [97.4 F (36.3 C)-98.1 F (36.7 C)] 98.1 F (36.7 C) Pulse (Heart Rate): [62-70] 63 Resp Rate: [14-20] 18 BP: (134-163)/(60-71) 150/67 O2 Sat (%): [95 %-98 %] 95 % Weight: [68.4 kg (150 lb 12.7 oz)] 68.4 kg (150 lb 12.7 oz) BP 150/67 (BP Location: Right arm, BP Position: Lying) Pulse 63 Temp 98.1 F (36.7 C) (Oral) Resp 18 Ht 1.778 m (5' 10 ) Wt 68.4 kg (150 lb 12.7 oz) SpO2 95% BMI 21.64 kg/m Smoking Status Never Physical Exam Constitutional: Appears well. No acute distress. HEENT: no scleral icterus, no xanthelasmas Neck: JVD to the mid neck Mouth: dry mucus membranes Lungs/Thorax: No increased work of breathing. CTA b/l Cardiovascular: Regular rate and rhythm. No murmurs. Strong radial pulses bilaterally. Ext: trace pitting edema bilaterally. Good capillary refill of all extremities Skin: warm DATA REVIEWED: Lab Results Component Value Date SODIUM 137 06/11/2025 POTASSIUM 3.6 06/11/2025 GLUCOSE 91 06/11/2025 CHLORIDE 101 06/11/2025 CO2 27 06/11/2025 BUN 23 06/11/2025 CREATSERUM 1.12 06/11/2025 Lab Results Component Value Date WBC 6.22 06/11/2025 HGB 7.7 (L) 06/11/2025 HCT 24.2 (L) 06/11/2025 PLATELET 183 06/11/2025 MCV 93.8 06/11/2025 Lab Results Component Value Date HSTROP 121 (H) 06/10/2025 HSTROP 123 (H) 06/10/2025 HSTROP 94 (H) 06/09/2025 Device check 04/24/2025: Atrial pacing 78%, RV pacing 100%, LV pacing 100%. 3 episodes of atrial tachycardia/atrial flutter. Right heart catheterization 03/01/2025: Hemodynamic Data: RA: 10 RV: 56/12, 10 PA: 59/15 (34) PCWP: 26 with V-waves to 46 mmHg. [Position confirmed by obtaining saturated blood.] CO: 5.04 CI: 2.61 O2 Sat: PA sat: 63%, AO sat: 99% BP: 151/51 (81) TP PVR: 1.6 Wood units SVR: 1127 Metric units Echocardiogram 12/12/2024: 1. Mild concentric left ventricular hypertrophy with normal systolic function. LVEF is estimated at 55%. 2. Normal right ventricular size and systolic function. 3. Severe biatrial dilatation. 4. Bioprosthetic mitral valve is well-seated with normal Doppler flows and trace valve regurgitation. 5. Moderate tricuspid regurgitation. 6. Severely elevated right-sided pressures. RVSP is 69 mmHg. Cardiac catheterization 03/09/2019: 1. 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 8. No evidence of fistulous communication with pulmonary artery. [1] Allergies Allergen Reactions Latex Itching Penicillins [2] Medications Prior to Admission Medication Sig Dispense Refill Last Dose/Taking Alfuzosin HCl 10 MG Tab SR 24 HR Take 1 tablet by mouth daily. 06/09/2025 Morning Calcium 500-125 MG-UNIT Tab Take 1 tablet by mouth daily. 06/09/2025 Morning Cholecalciferol (VITAMIN D) 4000 Units capsule Take 1 capsule by mouth every other day. 06/09/2025 Morning Finasteride 5 MG tablet Take 1 tablet by mouth daily every morning. 06/09/2025 Morning Furosemide (LASIX PO) Take 60 mg by mouth daily. 06/09/2025 Morning metoprolol succinate 25 MG tablet XL Take 2 tablets by mouth 2 times daily. 06/09/2025 Morning amLODIPine 2.5 MG tablet Take 1 tablet by mouth daily. 06/08/2025 atorvastatin 40 MG Tab tablet Take 1 tablet by mouth daily. Unknown Cyanocobalamin (VITAMIN B 12 PO) Place 1,000 mcg under tongue daily. 06/08/2025 Ferrous Sulfate (IRON) 325 (65 Fe) MG Tab Take 1 tablet by mouth daily. 06/08/2025 Fexofenadine (Nikunj Allergy) 180 MG tablet Take 1 tablet by mouth daily. 06/08/2025 hydroxychloroquine 200 MG Tab tablet Take 1 tablet by mouth 2 times daily. 06/08/2025 losartan 50 MG Tab tablet Take 1 tablet by mouth daily. 06/08/2025 nitroGLYCERIN 0.[address] 1 tablet under tongue every 5 minutes as needed for Chest pain. max = 3 doses. If CP persists after 1st dose, call 911 Unknown Rqrxtnmma-Glucmrqdrf-iwrk (OPDUALAG IV) by Intravenous route. Spironolactone 25 MG tablet Take 1 tablet by mouth daily every morning. 06/08/2025 warfarin 5 MG tablet Take 1.5 tablets by mouth daily. 06/08/2025 Cosigned by Samson Jaffe MD at 06/11/2025 2:03 PM EDT Associated attestation - Samson Jaffe MD - 06/11/2025 2:03 PM EDT ATTENDING ATTESTATION: I saw and personally examined the patient today with Dr. Santos. I discussed the findings and therapeutic plan with the fellow. I agree with the history, physical examination, and medical decisions as outlined, and edited as needed. I personally reviewed the following tracings/images: prior echo with normal/recovered EF, normal function of MVR. Patient with complex cardiac history, but his issues seem to be more related to malnutrition/failure to thrive than cardiac. Agree with repeat echo, if unremarkable would continue with conservative management - patient states he is already feeling better. Samson Jaffe M.D. [employer], Internal Medicine [facility] Cardiovascular Medicine *[id number] documented in this encounter [facility] 06-11-2025 Plan of care note Problem: Oral Intake Inadequate Goal: Improved Oral Intake Outcome: Progressing Nutrition Recommendations and Plan of Care: 1. Diet: Heart healthy Consider liberalization of diet to provide additional menu items and promote PO intake 2. Will send oral supplements, Apple Ensure Clear x1/d + Magic Cup x1/d to aid in calorie and protein intake during admission 3. Agree with trial of appetite stimulant (Remeron) 4. PRN Zofran and/or Compazine 5. RD to follow and monitor PO intake, GI function, weight changes, labs, and skin integrity [facility] 06-11-2025 Consult note Associated Order (s): IP CONSULT TO ENDOCRINOLOGY - NON DIABETES [facility] Endocrinology Consult Note- Initial Encounter (Autoimmune thyroiditis) Date of admission: 06/10/2025 Admission diagnosis: Failure to thrive in adult [R62.7] No admission procedures for hospital encounter. Referring Provider: Siria Wolfe, APR* Primary Care Provider: Uma De Paz Chief Complaint/Reason for Consult: Autoimmune thyroiditis Assessment and Plan: Sebastian Hannon is a 89 y.o. 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 . Endocrinology consulted for concern for autoimmune thyroiditis. 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 He received his first dose on 05/21. He remains asymptomatic and denies diaphoresis, palpitations, anxiety or tremulousness. He had a CTPE on 06/09 however his thyroid function labs were drawn before the iodine contrast load, thus they should have not been impacted. In light of mild clinically disease and given the temporary character of the ICI driven thyroiditis, we will pursue monitoring for the moment and repeat of labs in a week. -Repeat Thyroid function labs:TSH and fT4 in 1 week -Follow TSI antibodies (ordered) -Continue rest of care per primary Thank you for allowing us to participate in the care of Sebastian Hannon. Patient discussed with MD Evelina Castillo MD PGY-3 Internal Medicine History of Present Illness: Sebastian Hannon is a 89 y.o. male with PmHx of melanoma on immunotherapy:Nivolumab+Relatlima b last 05/21/25, HF, afib with pacemaker, on coumadin, HLD comes in to the ED for nausea, decreased appetite, fatigue concerning for failure to thrive. He was experiencing fatigue, anorexia and ELIZABETH. Pt states leading to admission he just doesn't have an interest or appetite in food. States he feels faitgue and weak at times with SOB on exertion. States he lives alone but is close with his daughter Tricia. Denies chest pain. States his legs have always been swollen and discolored. Wears compression hose. Has nausea at times without vomiting. States he wants to continue therapy with Dr. Walsh. His last checkpoint inhibitor dose was on 05/21 and he was reportedly doing well until about a week ago when he started to feel weak, and have a significantly reduced appetite, weakness, and shakiness. He has lost about 5 lbs because of this. Tricia, his child, notes that he has had ELIZABETH that is long standing and has not changed much in the past week. His only medication change this week was that he was taken off rosuvastatin for interactions with his therapies. Diet: Current Diet Orders Procedures DIET HEART HEALTHY - 4 GM SODIUM Standing Status: Standing Number of Occurrences: 1 Medical History: Past Medical History[1] Surgical History: Past Surgical History[2] Family History: Family History Problem Relation Age of Onset Cancer- Other Mother female cancer Myocardial Infarction Father Heart Failure Father Dementia Brother Parkinson Brother Heart Disease - Other Brother Other - Specify (skin biopsies) Brother Other - Specify (other) Brother Social History: Social History[3] Allergies: Allergies[4] Current Medications: Current Medications[5] Review of Systems: positives are in bold Negative unless stated on the HPI Physical Exam: Vitals: BP 165/72 (BP Location: Right arm, BP Position: Sitting) Pulse 64 Temp 97.8 F (36.6 C) (Oral) Resp 16 Ht 1.778 m (5' 10 ) Wt 68.4 kg (150 lb 12.7 oz) SpO2 99% BMI 21.64 kg/m Smoking Status Never , Body mass index is 21.64 kg/m ., Wt Readings from Last 1 Encounters: 06/10/25 68.4 kg (150 lb 12.7 oz) Physical Exam Vitals reviewed. Constitutional: General: He is not in acute distress. Appearance: He is not ill-appearing, toxic-appearing or diaphoretic. Comments: elderly HENT: Mouth/Throat: Mouth: Mucous membranes are moist. Eyes: Extraocular Movements: Extraocular movements intact. Pupils: Pupils are equal, round, and reactive to light. Cardiovascular: Rate and Rhythm: Normal rate and regular rhythm. Pulses: Normal pulses. Pulmonary: Effort: Pulmonary effort is normal. No respiratory distress. Breath sounds: Normal breath sounds. No wheezing. Chest: Chest wall: No tenderness. Abdominal: General: There is no distension. Palpations: Abdomen is soft. Tenderness: There is no abdominal tenderness. There is no right CVA tenderness, left CVA tenderness or guarding. Musculoskeletal: Cervical back: Normal range of motion. Right lower leg: Edema present. 1+ Left lower leg: Edema present. 1+ Neurological: General: No focal deficit present. Mental Status: He is alert and oriented to person, place, and time. Psychiatric: Mood and Affect: Mood normal. Behavior: Behavior normal. Procedure / Imaging / Lab Data: Pertinent procedure/imaging/lab data was reviewed/discussed with the patient today: Sodium Date Value Ref Range Status 06/11/2025 137 135 - 145 mmol/L Final Potassium Date Value Ref Range Status 06/11/2025 3.6 3.5 - 5.0 mmol/L Final Chloride Date Value Ref Range Status 06/11/2025 101 98 - 108 mmol/L Final CO2 Date Value Ref Range Status 06/11/2025 27 21 - 31 mmol/L Final BUN Date Value Ref Range Status 06/11/2025 23 7 - 25 mg/dL Final Creatinine Date Value Ref Range Status 06/11/2025 1.12 0.70 - 1.30 mg/dL Final Sodium Date Value Ref Range Status 06/11/2025 137 135 - 145 mmol/L Final Potassium Date Value Ref Range Status 06/11/2025 3.6 3.5 - 5.0 mmol/L Final Chloride Date Value Ref Range Status 06/11/2025 101 98 - 108 mmol/L Final CO2 Date Value Ref Range Status 06/11/2025 27 21 - 31 mmol/L Final BUN Date Value Ref Range Status 06/11/2025 23 7 - 25 mg/dL Final Creatinine Date Value Ref Range Status 06/11/2025 1.12 0.70 - 1.30 mg/dL Final Glucose Date Value Ref Range Status 06/11/2025 91 Nonfastin-179 mg/dL; Fastin-99 mg/dL Final Lab Results Component Value Date ALT 9 (L) 06/09/2025 AST 16 06/09/2025 ALKPHOS 94 06/09/2025 BILITOTAL 0.8 06/09/2025 BILIDIRECT 0.2 06/09/2025 Lab Results Component Value Date ALT 9 (L) 06/09/2025 Lab Results Component Value Date TSH 0.149 (L) 06/09/[address] Echo MD during consults Signed Geoffrey Linton MD, PhD PGY-3 IM [1] Past Medical History: Diagnosis Date A-fib Acute on chronic systolic heart failure Anemia Arrhythmia ASHD (arteriosclerotic heart disease) Atrial flutter Carotid bruit Hypertension Ischemic cardiomyopathy Ischemic colitis 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 Labs reviewed and physical exam completed. I reviewed PET scans which show Prostate cancer 2019 radiation seeds Pulmonary hypertension Rheumatoid arthritis Sinus bradycardia Valvular heart disease [2] Past Surgical History: Procedure Laterality Date PACEMAKER PLACEMENT 2020 and fibrillator PACEMAKER PLACEMENT 2010 HEART VALVE SURGERY 2006 valve replacement BACK SURGERY 1980 SKIN BIOPSY [3] Social History Tobacco Use Smoking status: Never Smokeless tobacco: Never Vaping Use Vaping status: Never Used Substance Use Topics Alcohol use: Not Currently Drug use: Never [4] Allergies Allergen Reactions Latex Itching Penicillins [5] Current Facility-Administered Medications: Acetaminophen (TYLENOL) tablet 650 mg, 650 mg, Oral, Q6H PRN, Natasha Hurtado PA-C alum/mag hydrox.-simethicone oral suspension 30 mL, 30 mL, Oral, Q6H PRN, Natasha Hurtado PA-C amLODIPine (NORVASC) tablet 2.5 mg, 2.5 mg, Oral, Daily, Natasha Hurtado PA-C, 2.5 mg at 06/11/25904 Fexofenadine (NIKUNJ) tablet 180 mg, 180 mg, Oral, Daily, Natasha Hurtado PA-C, 180 mg at 06/11/25904 Finasteride (PROSCAR) tablet 5 mg, 5 mg, Oral, QAM, Natasha Hurtado PA-C, 5 mg at 06/11/25904 furOSEmide (LASIX) tablet 60 mg, 60 mg, Oral, Daily, Natasha Hurtado PA-C, 60 mg at 06/11/25904 [START ON 06/12/2025] Hydroxychloroquine (PLAQUENIL) tablet 200 mg, 200 mg, Oral, Once per day on Wednesday AND Hydroxychloroquine (PLAQUENIL) tablet 200 mg, 200 mg, Oral, 2 times per day on Wednesday, Natasha Hurtado PA-C, 200 mg at 06/11/25904 Losartan (COZAAR) tablet 50 mg, 50 mg, Oral, Daily, Natasha Hurtado PA-C, 50 mg at 06/11/25904 Magnesium sulfate 1 g in dextrose 5% 100 mL premix IVPB, 1 g, Intravenous, Once, Last Rate: 100 mL/hr at 06/11/25913, 1 g at 06/11/25913 FOLLOWED BY Magnesium sulfate 1 g in dextrose 5% 100 mL premix IVPB, 1 g, Intravenous, Once, Cris Rosa PA-C Metoprolol succinate (TOPROL-XL) tablet XL 75 mg, 75 mg, Oral, Daily, Natasha Hurtado PA-C, 75 mg at 06/11/25904 Ondansetron 4mg/2ml (ZOFRAN) injection 4 mg, 4 mg, Intravenous, Q6H PRN OR Ondansetron (ZOFRAN) tablet 4 mg, 4 mg, Oral, Q4H PRN, Natasha Hurtado PA-C Potassium chloride 10 mEq in sterile water 100 ml premix IVPB, 10 mEq, Intravenous, Once, Last Rate: 100 mL/hr at 06/11/25917, 10 mEq at 06/11/25917 FOLLOWED BY Potassium chloride 10 mEq in sterile water 100 ml premix IVPB, 10 mEq, Intravenous, Once FOLLOWED BY Potassium chloride 10 mEq in sterile water 100 ml premix IVPB, 10 mEq, Intravenous, Once FOLLOWED BY Potassium chloride 10 mEq in sterile water 100 ml premix IVPB, 10 mEq, Intravenous, Once, Cris Rosa PA-C Spironolactone (ALDACTONE) tablet 25 mg, 25 mg, Oral, QAM, Natasha Hurtado PA-C, 25 mg at 06/11/25 09 [Held by provider] warfarin (COUMADIN) tablet 5 mg, 5 mg, Oral, Daily, Natasha Hurtado PA-C Cosigned by Fermin Dodge MD at 06/11/2025 12:29 PM EDT Associated attestation - Fermin Dodge MD - 06/11/2025 12:29 PM EDT ATTENDING ATTESTATION: The patient was seen and examined independently by me at bedside. I have done the clinical exam personally and have worked together in formulating the plan of care along with Dr Linton. The case including the history, physical examination, assessment, and plan was discussed in detail with Dr Linton. I have reviewed the patient's charts and labs in detail. I agree with his assessment and plan. The patient was seen on 06/11/2025 Fermin Dodge MD [facility] Work Phone: 06-11-2025 History and physical note [facility] INPATIENT PROGRESS NOTE TODAY'S DATE: 06/11/2025 ADMIT DATE: 06/10/2025 5:34 PM REASON FOR ADMISSION: Anorexia Oncology Team: Dr. Walsh ASSESSMENT AND PLAN Sebastian Hannon is a 89 y.o. male with past medical history of melanoma on immunotherapy last 05/21/25, HF, afib with pacemaker, on coumadin, HLD comes in to the ED for nausea, decreased appetite, fatigue. ACUTE PROBLEMS FTT Poor PO Intake - He is currently undergoing immunotherapy for melanoma, with the first dose administered on 05/21/2025. Initially, he responded well to the treatment and was able to live independently. However, during a recent visit, it was observed that he had lost approximately 3 to 4 pounds and his appetite had significantly decreased. He has been experiencing some nausea. Reports generalized weakness and dyspnea on exertion, possibly related to fatigue, poor intake, and immunotherapy. - Daughter brought patient to ED with concerns for FTT - Lactate 1.7, Trop/BNP as below - RD consult: Diet: Heart healthy. 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 He received his first dose on 05/21. He remains asymptomatic and denies diaphoresis, palpitations, anxiety or tremulousness. He had a CTPE on 06/09 however his thyroid function labs were drawn before the iodine contrast load, thus they should have not been impacted. - Endo consult: In light of mild clinically disease and given the temporary character of the ICI driven thyroiditis, we will pursue monitoring for the moment and repeat of labs in a week. Repeat Thyroid function labs: TSH and fT4 in 1 week (repeat on 06/18) Follow TSI antibodies (ordered) - Continue to monitor for symptom development Hx of Systolic HF Demand ischemia (Elevated BPN/Troponin) in the setting of dehydration, CKD Hx Pulmonary Hypertension Hx CAD s/p cardiac bypass Hx Bioprosthetic mitral valve replacement Pt reports ELIZABETH and fatigue but currently on RA. Denies chest pain. - Trop trending up in ED 85>>94>>123. Peaked 06/10, no longer trending - BNP 4511 - Last Echo EF 35%. RVSP 69 mmHg on echocardiogram. - Cardiology consult: BNP level is elevated and troponin is slightly elevated, this seems more in line with his kidney disease and decreased intake rather than ACS or HF exacerbation. I do think that there is a long standing pulmonary hypertension component to his symptoms. A RHC in February showed elevated left sided pressures as well as elevated pulmonary pressures, supporting group 2 PH. He is on adequate diuretics and GDMT from this standpoint. Uncertain how the diagonal fistula would factor into his long-standing symptoms, but does not seem to be causing anginal symptoms Recommend holding Lasix until euvolemic. May need to re-assess his Lasix maintenance dose given his decreased appetite. Can restart with 40 mg Lasix PO daily (reduced from home dose of 60 mg) Recommend follow up on echocardiogram Maintain goal INR 2-3 on warfarin - Consider pulmonary HTN consult based on echo results - Repeat echo (06/11): read pending - Cont amlodipine, losartan, aldactone, toprol xl, and lasix - Cont tele and pulse ox Constipation - LBM 06/10 - Continue miralax daily Hx of Afib Supratherapeutic INR - On home Warfarin 5mg daily. Follows with OP warfarin clinic. - Held 06/10, 06/11 warfarin dose for supratherapeutic INR of 3.9. - Monitor daily INR until therapeutic for 2 consecutive days, then every 2 days for 14 days or until discharged - Maintain goal INR 2-3 on warfarin - Cont amlodipine, losartan, aldactone, toprol xl, and lasix as above Deconditioning - PT/OT consult: rec home with [facility] Metastatic Melanoma - Follows with Dr. Walsh - Currently on immunotherapy with opdualag (last 05/21/25) - Dr. Walsh updated via email 06/11 - FU [facility] 06/21 Quality Self-Check Complexity. Malnutrition - Severe Protein-Calorie Malnutrition (POA) (06/11/2025 12:36 PM) secondary to Acute Illness / Injury (06/11/2025 12:36 PM) - Reviewed and agree with registered nursing professor's recommendations. Wound Documentation Any conditions listed below are present on admission unless otherwise specified. .Metastatic Cancer, Location of Metastasis - see above for additional details Body mass index is 21.64 kg/m . RESOLVED PROBLEMS N/A CHRONIC PROBLEMS RA - Cont home hydroxychloroquine - [facility] referred patient to Dr. Desai for evaluation of RA management with immunotherapy - FU Dr. Desai 06/21 CKD Stage 2 - Baseline Cr appears ~ 1.3 - Avoid nephrotoxic meds - Daily chem DVT prophylaxis: warfarin held Diet: DIET REGULAR Continuous Infusions: Code Status: Full Code Fall Risk: Assessed for patient fall risk and discussed safety measures during rounding. CENTRAL LINES: None Serious Illness Conversation: None Disposition: The patient will require continued hospitalization for poor PO/FTT. They are expected to discharge to PT/OT rec home with [facility]. Today they are expected to be medically ready for discharge on TBD. Follow-ups made: Dr. Desai 06/21, Dr. Walsh ([facility]) 06/21 Follow-ups needed: TBD SUBJECTIVE No acute events overnight. Patient seen sitting up in chair with daughter at bedside. Reports feeling overall improved today other than continuing to have poor oral intake. Daughter reports he was not eating for 1.5 weeks prior to admission and lost about 10 lbs. Denies any trouble/difficulty swallowing and is just not hungry. Reports LBM 06/10. Reports ELIZABETH has improved and no SOB at rest. Reports generalized weakness feels improved today. Denies hematuria, hematochezia, and other overt s/sx of bleeding. Patient currently denies fever, chills, FLEMING, chest pain, SOB, N/V/D. All questions/concerns answered. Remainder of ROS queried and negative. Discussed plan for nutrition team to see patient today/to consider appetite stimulant and plan to repeat echo. Patient and family understanding and in agreement. OBJECTIVE Temp: [97.4 F (36.3 C)-98.1 F (36.7 C)] 97.6 F (36.4 C) Pulse (Heart Rate): [63-65] 64 Resp Rate: [12-20] 18 BP: (134-165)/(60-72) 145/66 O2 Sat (%): [95 %-100 %] 99 % Weight: [68.4 kg (150 lb 12.7 oz)] 68.4 kg (150 lb 12.7 oz) General: A&O to self, time, place, and situation. NAD. HEENT: EOMI, anicteric sclerae, conjunctivae & lids symmetrical. No signs of inflammation. Neck no rigidity. Not ALATNA. MMM. Respiratory: Clear to auscultation bilaterally, no crackles/rhonchi/wheezes, no increased WOB. On RA Cardiovascular: Afib, no murmurs, 1+ pitting edema BLE (L>R). Abdomen: Normoactive BS. Abdomen soft, nontender, nondistended. No palpable masses. Neurologic: CN II-XII grossly intact. No focal deficits. Speech clear and coherent. Follows commands. Skin: Color, texture, and turgor normal. Chronic brawny discoloration of BLE (L>R). Psychosocial: Affect appropriate PIV with no evidence of erythema, drainage, or tenderness. Dressing is clean, dry, and intact. Plan of care reviewed with the attending, Dr. Yves Lamb MD: in agreement. Cris Rosa PA-C Pager: [phone] The provider may be reached from 7a-7p at pager listed on QGenda. After these hours please page the cadmium liquor maker or moonlighter. Cosigned by Yves Lamb MD at 06/11/2025 5:48 PM EDT Associated attestation - Yves Lamb MD - 06/11/2025 5:48 PM EDT I have personally seen, interviewed the patient for history/progress, performed physical examination and formulated and/or supervised the medical plan/decisions with the MY. I have personally reviewed all available clinical data related to today's encounter. I personally performed all aspects of the medical decision making for this encounter. I have reviewed and verified this documentation and it accurately reflects our care., with the following comments/corrections/additions. Discussed the diagnosis and plan of care with the patient and/or family who are in agreement. 89 year old gentleman with a history of melanoma, atrial fibrillation, hyperlipidemia. He presented with decreased appetite. Severe protein calorie malnutrition: PT, OT, nutrition consults. Will try aggressive control of nausea, constipation, and will also try an appetite stimulant (mirtazapine). Will begin discussions about tube feeds to learn more about if this is within patient's goals of care. 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 Yves Lamb MD [facility] 06-11-2025 History and physical note [facility] INPATIENT PROGRESS NOTE TODAY'S DATE: 06/11/2025 ADMIT DATE: 06/10/2025 5:34 PM REASON FOR ADMISSION: Anorexia Oncology Team: Dr. Walsh ASSESSMENT AND PLAN Sebastian Hannon is a 89 y.o. male with past medical history of melanoma on immunotherapy last 05/21/25, HF, afib with pacemaker, on coumadin, HLD comes in to the ED for nausea, decreased appetite, fatigue. ACUTE PROBLEMS FTT Poor PO Intake - He is currently undergoing immunotherapy for melanoma, with the first dose administered on 05/21/2025. Initially, he responded well to the treatment and was able to live independently. However, during a recent visit, it was observed that he had lost approximately 3 to 4 pounds and his appetite had significantly decreased. He has been experiencing some nausea. Reports generalized weakness and dyspnea on exertion, possibly related to fatigue, poor intake, and immunotherapy. - Daughter brought patient to ED with concerns for FTT - Lactate 1.7, Trop/BNP as below - RD consult: Diet: Heart healthy. 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 He received his first dose on 05/21. He remains asymptomatic and denies diaphoresis, palpitations, anxiety or tremulousness. He had a CTPE on 06/09 however his thyroid function labs were drawn before the iodine contrast load, thus they should have not been impacted. - Endo consult: In light of mild clinically disease and given the temporary character of the ICI driven thyroiditis, we will pursue monitoring for the moment and repeat of labs in a week. Repeat Thyroid function labs: TSH and fT4 in 1 week (repeat on 06/18) Follow TSI antibodies (ordered) - Continue to monitor for symptom development Hx of Systolic HF Demand ischemia (Elevated BPN/Troponin) in the setting of dehydration, CKD Hx Pulmonary Hypertension Hx CAD s/p cardiac bypass Hx Bioprosthetic mitral valve replacement Pt reports ELIZABETH and fatigue but currently on RA. Denies chest pain. - Trop trending up in ED 85>>94>>123. Peaked 06/10, no longer trending - BNP 4511 - Last Echo EF 35%. RVSP 69 mmHg on echocardiogram. - Cardiology consult: BNP level is elevated and troponin is slightly elevated, this seems more in line with his kidney disease and decreased intake rather than ACS or HF exacerbation. I do think that there is a long standing pulmonary hypertension component to his symptoms. A RHC in February showed elevated left sided pressures as well as elevated pulmonary pressures, supporting group 2 PH. He is on adequate diuretics and GDMT from this standpoint. Uncertain how the diagonal fistula would factor into his long-standing symptoms, but does not seem to be causing anginal symptoms Recommend holding Lasix until euvolemic. May need to re-assess his Lasix maintenance dose given his decreased appetite. Can restart with 40 mg Lasix PO daily (reduced from home dose of 60 mg) Recommend follow up on echocardiogram Maintain goal INR 2-3 on warfarin - Consider pulmonary HTN consult based on echo results - Repeat echo (06/11): read pending - Cont amlodipine, losartan, aldactone, toprol xl, and lasix - Cont tele and pulse ox Constipation - LBM 06/10 - Continue miralax daily Hx of Afib Supratherapeutic INR - On home Warfarin 5mg daily. Follows with OP warfarin clinic. - Held 06/10, 06/11 warfarin dose for supratherapeutic INR of 3.9. - Monitor daily INR until therapeutic for 2 consecutive days, then every 2 days for 14 days or until discharged - Maintain goal INR 2-3 on warfarin - Cont amlodipine, losartan, aldactone, toprol xl, and lasix as above Deconditioning - PT/OT consult: rec home with [facility] Metastatic Melanoma - Follows with Dr. Walsh - Currently on immunotherapy with opdualag (last 05/21/25) - Dr. Walsh updated via email 06/11 - FU [facility] 06/21 Quality Self-Check Complexity. Malnutrition - Severe Protein-Calorie Malnutrition (POA) (06/11/2025 12:36 PM) secondary to Acute Illness / Injury (06/11/2025 12:36 PM) - Reviewed and agree with registered nursing professor's recommendations. Wound Documentation Any conditions listed below are present on admission unless otherwise specified. .Metastatic Cancer, Location of Metastasis - see above for additional details Body mass index is 21.64 kg/m . RESOLVED PROBLEMS N/A CHRONIC PROBLEMS RA - Cont home hydroxychloroquine - [facility] referred patient to Dr. Desai for evaluation of RA management with immunotherapy - FU Dr. Desai 06/21 CKD Stage 2 - Baseline Cr appears ~ 1.3 - Avoid nephrotoxic meds - Daily chem DVT prophylaxis: warfarin held Diet: DIET REGULAR Continuous Infusions: Code Status: Full Code Fall Risk: Assessed for patient fall risk and discussed safety measures during rounding. CENTRAL LINES: None Serious Illness Conversation: None Disposition: The patient will require continued hospitalization for poor PO/FTT. They are expected to discharge to PT/OT rec home with [facility]. Today they are expected to be medically ready for discharge on TBD. Follow-ups made: Dr. Desai 06/21, Dr. Walsh ([facility]) 06/21 Follow-ups needed: TBD SUBJECTIVE No acute events overnight. Patient seen sitting up in chair with daughter at bedside. Reports feeling overall improved today other than continuing to have poor oral intake. Daughter reports he was not eating for 1.5 weeks prior to admission and lost about 10 lbs. Denies any trouble/difficulty swallowing and is just not hungry. Reports LBM 06/10. Reports ELIZABETH has improved and no SOB at rest. Reports generalized weakness feels improved today. Denies hematuria, hematochezia, and other overt s/sx of bleeding. Patient currently denies fever, chills, FLEMING, chest pain, SOB, N/V/D. All questions/concerns answered. Remainder of ROS queried and negative. Discussed plan for nutrition team to see patient today/to consider appetite stimulant and plan to repeat echo. Patient and family understanding and in agreement. OBJECTIVE Temp: [97.4 F (36.3 C)-98.1 F (36.7 C)] 97.6 F (36.4 C) Pulse (Heart Rate): [63-65] 64 Resp Rate: [12-20] 18 BP: (134-165)/(60-72) 145/66 O2 Sat (%): [95 %-100 %] 99 % Weight: [68.4 kg (150 lb 12.7 oz)] 68.4 kg (150 lb 12.7 oz) General: A&O to self, time, place, and situation. NAD. HEENT: EOMI, anicteric sclerae, conjunctivae & lids symmetrical. No signs of inflammation. Neck no rigidity. Not ALATNA. MMM. Respiratory: Clear to auscultation bilaterally, no crackles/rhonchi/wheezes, no increased WOB. On RA Cardiovascular: Afib, no murmurs, 1+ pitting edema BLE (L>R). Abdomen: Normoactive BS. Abdomen soft, nontender, nondistended. No palpable masses. Neurologic: CN II-XII grossly intact. No focal deficits. Speech clear and coherent. Follows commands. Skin: Color, texture, and turgor normal. Chronic brawny discoloration of BLE (L>R). Psychosocial: Affect appropriate PIV with no evidence of erythema, drainage, or tenderness. Dressing is clean, dry, and intact. Plan of care reviewed with the attending, Dr. Yves Lamb MD: in agreement. Cris Rosa PA-C Pager: [phone] The provider may be reached from 7a-7p at pager listed on [employer]Genda. After these hours please page the cadmium liquor maker or moonlighter. Cosigned by Yves Lamb MD at 06/11/2025 5:48 PM EDT Associated attestation - Yves Lamb MD - 06/11/2025 5:48 PM EDT I have personally seen, interviewed the patient for history/progress, performed physical examination and formulated and/or supervised the medical plan/decisions with the MY. I have personally reviewed all available clinical data related to today's encounter. I personally performed all aspects of the medical decision making for this encounter. I have reviewed and verified this documentation and it accurately reflects our care., with the following comments/corrections/additions. Discussed the diagnosis and plan of care with the patient and/or family who are in agreement. 89 year old gentleman with a history of melanoma, atrial fibrillation, hyperlipidemia. He presented with decreased appetite. Severe protein calorie malnutrition: PT, OT, nutrition consults. Will try aggressive control of nausea, constipation, and will also try an appetite stimulant (mirtazapine). Will begin discussions about tube feeds to learn more about if this is within patient's goals of care. 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 Yves Lamb MD documented in this encounter [facility] 06-11-2025 Plan of care note Problem: PT - General Goals Goal: Supine <-> Sit Transfers - Patient will perform supine to/from sit transfers with independence and without use of hospital bed features in order to improve functional mobility and safety. Outcome: Ongoing Goal: Sit <-> Stand Transfers - Patient will perform sit to/from stand transfers with modified independence and least restrictive device in order to improve functional mobility and safety. Outcome: Ongoing Goal: Standing Endurance/Balance - Patient will perform standing balance tasks for 10 min with modified independence and least restrictive device while maintaining an RPE of less than 3/10 to improve endurance and safety with standing tasks. Outcome: Ongoing Goal: Ambulation - Patient will ambulate 250 feet with modified independence and least restrictive device to improve ability to safely navigate home and community. Outcome: Ongoing Goal: Stairs - Patient will ascend/descend 4-12 stairs with modified independence, without an assistive device, and single railing(s) to improve ability to safely navigate home and community. Outcome: Ongoing Goal: Strength - Patient will adhere to understanding of exercise program. Outcome: Ongoing [facility] 06-11-2025 Plan of care note Problem: OT - ADLs Goal: Lower Body Dressing - Patient will complete lower body dressing tasks with modified independence using adaptive equipment/compensatory strategies as needed for improved ability to complete self-care activities. Outcome: Ongoing Goal: Toileting - Patient will complete toileting task with modified independence and adaptive equipment as needed for improved ability to safely complete self-care activities. Outcome: Ongoing Goal: Bathing - Patient will perform full body bathing routine with modified independence while seated and standing for improved ability to complete self-care activities Outcome: Ongoing Problem: OT - Transfers Goal: Transfers Toilet/ Bedside Commode - Patient will transfer to/from toilet/bedside commode with modified independence for improved ability to safely complete ADLs. Outcome: Ongoing Problem: OT - Balance Goal: Balance - Standing - Patient will perform 10+ minutes of functional task in standing with modified independence and good balance to promote safety and improved balance required for self-care activities. Outcome: Ongoing Problem: OT - Endurance Goal: Endurance Functional Mobility - Patient will complete distance needed for common household mobility with modified independence, LRD and no needed rest breaks for improved tolerance to safely complete I/ADL's Outcome: Ongoing Problem: OT - Strength/ROM Goal: Strength/ROM ADL Participation - Patient will participate in UE exercise program with independence to prevent deconditioning while in hospital and to max UE ROM/Coordination/strength for ADLs. Outcome: Ongoing [facility] 06-11-2025 Consult note Associated Order (s): IP CONSULT TO CARDIOLOGY - HEART FAILURE _ CARDIOLOGY CONSULT Patient Name: Sebastian Hannon Date of Consult: 06/11/2025 Reason for Consultation: worried about increasing trop and elevated bnp- worried he needs to go to [place] for Decomp HF ASSESSMENT AND PLAN: In summary, he is a 89 y.o. 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 CARDIAC PROBLEM LIST - Demand ischemia in the setting of dehydration, CKD - Pulmonary Hypertension, likely group 2 RVSP 69 mmHg on echocardiogram. RVSP 56 mmHg on RHC, - Heart failure with improved ejection fraction, s/p BiV ICD/WELFARE PROJECT MANAGER-D, NYHA Class II - CAD s/p cardiac bypass - OLGUIN to LAD (atretic), saphenous vein graft to [id number] and 2nd obtuse marginal branch, saphenous venous graft to PDA - s/p LAD stent 2018 - diagonal branch fistula connecting to descending aorta or intercostal arteries Not on ASA given remote intervention and on AC - Atrial fibrillation, paroxysmal - Bioprosthetic mitral valve replacement Mild MR on echo 12/2024, normal LV size and function. Data reviewed: EKG 06/10/25: AV paced rhythm Recommendations Recommend follow up echocardiogram Maintain goal INR 2-3 on warfarin Recommend holding Lasix until euvolemic, likely tomorrow- may need to re-assess his Lasix maintenance dose given his decreased appetite. Can restart with 40 mg Lasix PO daily (reduced from home dose of 60 mg) Patient was evaluated and discussed with the attending sport internship, Dr. Samson Jaffe . We will continue to follow for the results of the echocardiogram. Please do not hesitate to reach out with questions. Rafia Santos, DO Cardiovascular Disease Fellow, PGY-5 [facility] Objective HISTORY: It was my pleasure to see Mr. Sebastian Hannon in consultation at the [facility] on 06/11/2025 for evaluation of his ELIZABETH. He is a 89 y.o. 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 He notably was recently diagnosed with metastatic melanoma and underwent immunotherapy with [id number]. He was reportedly doing okay for about a week or so before he started to feel weak, and have a significantly reduced appetite, weakness, and shakiness. He has lost about 5 lbs because of this. Tricia notes that he has had ELIZABETH that is long standing and has not changed much in the past week. His only medication change this week was that he was taken off rosuvastatin for interactions with his therapies. He was seen by his sport internship a little over a month ago. She reports he was retaining some fluid at that time with increased leg swelling, and his Lasix was increased to 80 mg daily, but developed an DINESH. This was reduced to 60 mg daily and has maintained him well. She reports no signs that he appears volume overloaded, and he typically has not had hospitalizations for heart failure - typically it was for a fib (it has been years since recurrence. His daughter does note that his symptoms seem less likely like his cardiac symptoms. Today, he feels better than he did yesterday. He still continues to have a very reduced appetite. PAST MEDICAL HISTORY: SOCIAL HISTORY He reports that he has never smoked. He has never used smokeless tobacco. He reports that he does not currently use alcohol. He reports that he does not use drugs. FAMILY HISTORY His family history includes Cancer- Other in his mother; Dementia in his brother; Heart Disease - Other in his brother; Heart Failure in his father; Myocardial Infarction in his father; Parkinson in his brother; other in his brother; skin biopsies in his brother. He He indicated that his mother is . He indicated that his father is . He indicated that only one of his two brothers is alive. He indicated that his daughter is alive. 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 PAST SURGICAL HISTORY His has a past surgical history that includes pacemaker placement (2020); heart valve surgery (2006); back surgery (1980); pacemaker placement (2010); and skin biopsy. ALLERGIES Allergies[1] HOME MEDICATIONS Prescriptions Prior to Admission[2] CURRENT MEDICATIONS amLODIPine 2.5 mg Oral Daily Fexofenadine 180 mg Oral Daily Finasteride 5 mg Oral QAM furOSEmide 60 mg Oral Daily [START ON 06/12/2025] Hydroxychloroquine 200 mg Oral Once per day on Wednesday And Hydroxychloroquine 200 mg Oral 2 times per day on Wednesday Losartan 50 mg Oral Daily Metoprolol succinate 75 mg Oral Daily Spironolactone 25 mg Oral QAM [Held by provider] warfarin 5 mg Oral Daily REVIEW OF SYSTEMS: A full review of systems was performed and was negative unless otherwise noted in HPI. PHYSICAL EXAM: Intake/Output Summary (Last 24 hours) at 06/11/2025 0728 Last data filed at 06/11/2025 0600 Gross per 24 hour Intake -- Output 300 ml Net -300 ml Temp: [97.4 F (36.3 C)-98.1 F (36.7 C)] 98.1 F (36.7 C) Pulse (Heart Rate): [62-70] 63 Resp Rate: [14-20] 18 BP: (134-163)/(60-71) 150/67 O2 Sat (%): [95 %-98 %] 95 % Weight: [68.4 kg (150 lb 12.7 oz)] 68.4 kg (150 lb 12.7 oz) BP 150/67 (BP Location: Right arm, BP Position: Lying) Pulse 63 Temp 98.1 F (36.7 C) (Oral) Resp 18 Ht 1.778 m (5' 10 ) Wt 68.4 kg (150 lb 12.7 oz) SpO2 95% BMI 21.64 kg/m Smoking Status Never Physical Exam Constitutional: Appears well. No acute distress. HEENT: no scleral icterus, no xanthelasmas Neck: JVD to the mid neck Mouth: dry mucus membranes Lungs/Thorax: No increased work of breathing. CTA b/l Cardiovascular: Regular rate and rhythm. No murmurs. Strong radial pulses bilaterally. Ext: trace pitting edema bilaterally. Good capillary refill of all extremities Skin: warm DATA REVIEWED: Lab Results Component Value Date SODIUM 137 06/11/2025 POTASSIUM 3.6 06/11/2025 GLUCOSE 91 06/11/2025 CHLORIDE 101 06/11/2025 CO2 27 06/11/2025 BUN 23 06/11/2025 CREATSERUM 1.12 06/11/2025 Lab Results Component Value Date WBC 6.22 06/11/2025 HGB 7.7 (L) 06/11/2025 HCT 24.2 (L) 06/11/2025 PLATELET 183 06/11/2025 MCV 93.8 06/11/2025 Lab Results Component Value Date HSTROP 121 (H) 06/10/2025 HSTROP 123 (H) 06/10/2025 HSTROP 94 (H) 06/09/2025 Device check 04/24/2025: Atrial pacing 78%, RV pacing 100%, LV pacing 100%. 3 episodes of atrial tachycardia/atrial flutter. Right heart catheterization 03/01/2025: Hemodynamic Data: RA: 10 RV: 56/12, 10 PA: 59/15 (34) PCWP: 26 with V-waves to 46 mmHg. [Position confirmed by obtaining saturated blood.] CO: 5.04 CI: 2.61 O2 Sat: PA sat: 63%, AO sat: 99% BP: 151/51 (81) TP PVR: 1.6 Wood units SVR: 1127 Metric units Echocardiogram 12/12/2024: 1. Mild concentric left ventricular hypertrophy with normal systolic function. LVEF is estimated at 55%. 2. Normal right ventricular size and systolic function. 3. Severe biatrial dilatation. 4. Bioprosthetic mitral valve is well-seated with normal Doppler flows and trace valve regurgitation. 5. Moderate tricuspid regurgitation. 6. Severely elevated right-sided pressures. RVSP is 69 mmHg. Cardiac catheterization 03/09/2019: 1. 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 8. No evidence of fistulous communication with pulmonary artery. [1] Allergies Allergen Reactions Latex Itching Penicillins [2] Medications Prior to Admission Medication Sig Dispense Refill Last Dose/Taking Alfuzosin HCl 10 MG Tab SR 24 HR Take 1 tablet by mouth daily. 06/09/2025 Morning Calcium 500-125 MG-UNIT Tab Take 1 tablet by mouth daily. 06/09/2025 Morning Cholecalciferol (VITAMIN D) 4000 Units capsule Take 1 capsule by mouth every other day. 06/09/2025 Morning Finasteride 5 MG tablet Take 1 tablet by mouth daily every morning. 06/09/2025 Morning Furosemide (LASIX PO) Take 60 mg by mouth daily. 06/09/2025 Morning metoprolol succinate 25 MG tablet XL Take 2 tablets by mouth 2 times daily. 06/09/2025 Morning amLODIPine 2.5 MG tablet Take 1 tablet by mouth daily. 06/08/2025 atorvastatin 40 MG Tab tablet Take 1 tablet by mouth daily. Unknown Cyanocobalamin (VITAMIN B 12 PO) Place 1,000 mcg under tongue daily. 06/08/2025 Ferrous Sulfate (IRON) 325 (65 Fe) MG Tab Take 1 tablet by mouth daily. 06/08/2025 Fexofenadine (Nikunj Allergy) 180 MG tablet Take 1 tablet by mouth daily. 06/08/2025 hydroxychloroquine 200 MG Tab tablet Take 1 tablet by mouth 2 times daily. 06/08/2025 losartan 50 MG Tab tablet Take 1 tablet by mouth daily. 06/08/2025 nitroGLYCERIN 0.[address] 1 tablet under tongue every 5 minutes as needed for Chest pain. max = 3 doses. If CP persists after 1st dose, call 911 Unknown Gvxxmujvl-Kgjuzjtesj-zyyn (OPDUALAG IV) by Intravenous route. Spironolactone 25 MG tablet Take 1 tablet by mouth daily every morning. 06/08/2025 warfarin 5 MG tablet Take 1.5 tablets by mouth daily. 06/08/2025 Cosigned by Samson Jaffe MD at 06/11/2025 2:03 PM EDT Associated attestation - Samson Jaffe MD - 06/11/2025 2:03 PM EDT ATTENDING ATTESTATION: I saw and personally examined the patient today with Dr. Santos. I discussed the findings and therapeutic plan with the fellow. I agree with the history, physical examination, and medical decisions as outlined, and edited as needed. I personally reviewed the following tracings/images: prior echo with normal/recovered EF, normal function of MVR. Patient with complex cardiac history, but his issues seem to be more related to malnutrition/failure to thrive than cardiac. Agree with repeat echo, if unremarkable would continue with conservative management - patient states he is already feeling better. Samson Jaffe M.D. Nurse College, Internal Medicine [facility] Cardiovascular Medicine *[id number] [facility] Work Phone: 06-10-2025 Nurse Note 06/10/25 1620 Referral Information Arrived From home or self-care Readmission Information Was patient readmitted within 30 Days? 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 Requiring Assistance Are There Status Changes This Admission? Yes Changes Observed Since Admission? Physical Concerns With Patient Being Able To Care For Themselves At Discharge? Has Assistance (Friend, Family, Skilled Provider) Employment/Financial Employed? Retired Employment/Financial Concerns no Source Of Income pension/jail Financial Concerns none Insurance Medical Insurance Verified Yes Prescription Coverage Yes Pharmacy updated in IS Yes Initial Discharge Planning Home Care Services (MEDICAL PHYSICS TEACHER) No Home Therapies (MEDICAL PHYSICS TEACHER) None DME (MEDICAL PHYSICS TEACHER) Walker Patient Goal for Discharge Get better Expected Discharge Disposition HH Anticipated Services at Discharge [facility];Physical Therapy;Occupational Therapy;Outpatient follow up;DME Anticipated Changes Related to Illness inability to care for someone else Transportation Available family or friend will provide Assessment/Concerns to be Addressed Concerns To Be Addressed adjustment to diagnosis/illness concerns PCRM Initial Assessment Met with the patient and his daughter, Tricia, to complete the initial assessment. Explained role and function of PCRM in multidisciplinary team. Demographic information reviewed with patient/family and confirmed as correct. Reason for Admission: Per provider note, Sebastian Hannon is a 89 y.o. male with past medical history of melanoma on immunotherapy last 05/21/25, HF, afib with pacemaker, on coumadin, HLD comes in to the ED for nausea, decreased appetite, fatigue. Estimated length of stay: To be determined. Advance directives Patient does not have Advanced Directives on File. Lines/Drains/Tubes PIV Initial PCRM Discharge Planning Tricia reports that patient normally lives alone in his home in [place], [place]. Patient has been living with Tricia at [address] [place] [address] while receiving cancer treatment. Tricia inquired about SNF vs HHC, discussed referral process for both. Waiting on PT/OT recommendations. Final plan will be determined closer to discharge, pending therapy and medical team recommendations. Patient/family verbalized understanding and agreement with the plan of care. Patient/family have no questions at this time. PCRM will continue to follow patient with multidisciplinary team for ongoing assessment of needs and for discharge planning. Oz GOODEN RN Patient Care Radio Presenter IRP/Carlene [phone] (office) For evening and weekend discharge assistance, please page the on-call PCRM at [phone]. [facility] 06-10-2025 Note Acute Coronary Syndr ome (ACS): Initial Evaluation and Management: [email or web address] [facility] 06-10-2025 Note Acute Coronary Syndr ome (ACS): Initial Evaluation and Management: [email or web address] [facility] 06-10-2025 Plan of care note Images from the original note were not included. 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 I spoke to the patient and his daughter about the symptoms that brought him in. He notably was recently diagnosed with metastatic melanoma and underwent immunotherapy with gfeicpbkf-fixuleyqff-uajg. He was reportedly doing okay for about a week or so before he started to feel weak, and have a significantly reduced appetite, weakness, and shakiness. He has lost about 5 lbs because of this. Tricia notes that he has had ELIZABETH that is long standing and has not changed much in the past week. His only medication change this week was that he was taken off rosuvastatin for interactions with his therapies. He was seen by his sport internship a little over a month ago. She reports he was retaining some fluid at that time with increased leg swelling, and his Lasix was increased to 80 mg daily, but developed an DINESH. This was reduced to 60 mg daily and has maintained him well. She reports no signs that he appears volume overloaded, and he typically has not had hospitalizations for heart failure - typically it was for a fib (it has been years since recurrence. His daughter does note that his symptoms seem less likely like his cardiac symptoms ECG shows AV paced rhythm. CT PE without clot, no pulmonary edema, cardiomegaly (likely chronic), CAD (chronic). Physical exam Vitals: 06/10/25 0839 BP: 146/65 Pulse: 70 Resp: 14 Temp: 97.7 F (36.5 C) SpO2: 96% Appears well on exam. Elderly, frail, hard of hearing. Elevated JVP likely due to some TR and elevated right sided pressures with + HJR. S1, S2, regular rate and rhythm, no murmurs. Soft, non distended, non tender abdomen, lower extremities warm with trace pitting edema, L > R. Lungs CTA bilaterally, no wheezing, no crackles, on room air. Cardiac Problem List - Demand ischemia in the setting of dehydration, CKD - Pulmonary Hypertesnion, likely group 2 RVSP 69 mmHg on echocardiogram. RVSP 56 mmHg on RHC, - Heart failure with improved ejection fraction, s/p BiV ICD/WELFARE PROJECT MANAGER-D, NYHA Class II - CAD s/p cardiac bypass - OLGUIN to LAD, saphenous vein graft to [id number] and 2nd obtuse marginal branch, saphenous venous graft to PDA - s/p LAD stent 2018 - diagonal branch fistula connecting to descending aorta or intercostal arteries - Atrial fibrillation - Bioprosthetic mitral valve replacement Mild MR on echo 12/2024, normal LV size and function. Recommendations: - At this time, he does not appear to be overtly volume overloaded. Per discussions with him and his daughter, his ELIZABETH does not appear to be a new issue, and he does not appear volume overloaded from my review of his imaging. Although his BNP level is elevated and troponin is slightly elevated, this seems more in line with his kidney disease and decreased intake rather than ACS or HF exacerbation. - I do think that there is a long standing pulmonary hypertension component to his symptoms. A RHC in February showed elevated left sided pressures as well as elevated pulmonary pressures, supporting group 2 PH. He is on adequate diuretics and GDMT from this standpoint. - could consider gentle hydration given his decreased intake over the past week or so. - uncertain how the diagonal fistula would factor into his long-standing symptoms, but does not seem to be causing anginal symptoms - Recommend follow up on echocardiogram - formal cardiology consult tomorrow Rafia Santos DO Cardiovascular Disease Fellow, PGY-5 [facility] Imaging and other tests Device check 04/24/2025: Atrial pacing 78%, RV pacing 100%, LV pacing 100%. 3 episodes of atrial tachycardia/atrial flutter. Right heart catheterization 03/01/2025: Hemodynamic Data: RA: 10 RV: 56/12, 10 PA: 59/15 (34) PCWP: 26 with V-waves to 46 mmHg. [Position confirmed by obtaining saturated blood.] CO: 5.04 CI: 2.61 O2 Sat: PA sat: 63%, AO sat: 99% BP: 151/51 (81) TP PVR: 1.6 Wood units SVR: 1127 Metric units Echocardiogram 12/12/2024: 1. Mild concentric left ventricular hypertrophy with normal systolic function. LVEF is estimated at 55%. 2. Normal right ventricular size and systolic function. 3. Severe biatrial dilatation. 4. Bioprosthetic mitral valve is well-seated with normal Doppler flows and trace valve regurgitation. 5. Moderate tricuspid regurgitation. 6. Severely elevated right-sided pressures. RVSP is 69 mmHg. Cardiac catheterization 03/09/2019: 1. 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 8. No evidence of fistulous communication with pulmonary artery. [facility] Work Phone: 06-10-2025 Miscellaneous Notes Images from the original note were not included. 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 I spoke to the patient and his daughter about the symptoms that brought him in. He notably was recently diagnosed with metastatic melanoma and underwent immunotherapy with rblprpixk-lfsrcmroog-jwjw. He was reportedly doing okay for about a week or so before he started to feel weak, and have a significantly reduced appetite, weakness, and shakiness. He has lost about 5 lbs because of this. Tricia notes that he has had ELIZABETH that is long standing and has not changed much in the past week. His only medication change this week was that he was taken off rosuvastatin for interactions with his therapies. He was seen by his sport internship a little over a month ago. She reports he was retaining some fluid at that time with increased leg swelling, and his Lasix was increased to 80 mg daily, but developed an DINESH. This was reduced to 60 mg daily and has maintained him well. She reports no signs that he appears volume overloaded, and he typically has not had hospitalizations for heart failure - typically it was for a fib (it has been years since recurrence. His daughter does note that his symptoms seem less likely like his cardiac symptoms ECG shows AV paced rhythm. CT PE without clot, no pulmonary edema, cardiomegaly (likely chronic), CAD (chronic). Physical exam Vitals: 06/10/25 0839 BP: 146/65 Pulse: 70 Resp: 14 Temp: 97.7 F (36.5 C) SpO2: 96% Appears well on exam. Elderly, frail, hard of hearing. Elevated JVP likely due to some TR and elevated right sided pressures with + HJR. S1, S2, regular rate and rhythm, no murmurs. Soft, non distended, non tender abdomen, lower extremities warm with trace pitting edema, L > R. Lungs CTA bilaterally, no wheezing, no crackles, on room air. Cardiac Problem List - Demand ischemia in the setting of dehydration, CKD - Pulmonary Hypertesnion, likely group 2 RVSP 69 mmHg on echocardiogram. RVSP 56 mmHg on RHC, - Heart failure with improved ejection fraction, s/p BiV ICD/WELFARE PROJECT MANAGER-D, NYHA Class II - CAD s/p cardiac bypass - OLGIUN to LAD, saphenous vein graft to [id number] and 2nd obtuse marginal branch, saphenous venous graft to PDA - s/p LAD stent 2018 - diagonal branch fistula connecting to descending aorta or intercostal arteries - Atrial fibrillation - Bioprosthetic mitral valve replacement Mild MR on echo 12/2024, normal LV size and function. Recommendations: - At this time, he does not appear to be overtly volume overloaded. Per discussions with him and his daughter, his ELIZABETH does not appear to be a new issue, and he does not appear volume overloaded from my review of his imaging. Although his BNP level is elevated and troponin is slightly elevated, this seems more in line with his kidney disease and decreased intake rather than ACS or HF exacerbation. - I do think that there is a long standing pulmonary hypertension component to his symptoms. A RHC in February showed elevated left sided pressures as well as elevated pulmonary pressures, supporting group 2 PH. He is on adequate diuretics and GDMT from this standpoint. - could consider gentle hydration given his decreased intake over the past week or so. - uncertain how the diagonal fistula would factor into his long-standing symptoms, but does not seem to be causing anginal symptoms - Recommend follow up on echocardiogram - formal cardiology consult tomorrow Rafia Santos DO Cardiovascular Disease Fellow, PGY-5 [facility] Imaging and other tests Device check 04/24/2025: Atrial pacing 78%, RV pacing 100%, LV pacing 100%. 3 episodes of atrial tachycardia/atrial flutter. Right heart catheterization 03/01/2025: Hemodynamic Data: RA: 10 RV: 56/12, 10 PA: 59/15 (34) PCWP: 26 with V-waves to 46 mmHg. [Position confirmed by obtaining saturated blood.] CO: 5.04 CI: 2.61 O2 Sat: PA sat: 63%, AO sat: 99% BP: 151/51 (81) TP PVR: 1.6 Wood units SVR: 1127 Metric units Echocardiogram 12/12/2024: 1. Mild concentric left ventricular hypertrophy with normal systolic function. LVEF is estimated at 55%. 2. Normal right ventricular size and systolic function. 3. Severe biatrial dilatation. 4. Bioprosthetic mitral valve is well-seated with normal Doppler flows and trace valve regurgitation. 5. Moderate tricuspid regurgitation. 6. Severely elevated right-sided pressures. RVSP is 69 mmHg. Cardiac catheterization 03/09/2019: 1. 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 8. No evidence of fistulous communication with pulmonary artery. documented in this encounter [facility] 06-10-2025 History of Present illness Narrative Summary: Psychosocial Assessment Psychosocial Assessment Per chart review, patient is a 89 y.o., male, who was admitted for anorexia and malaise SW met with patient to introduce self, explain vp digital marketing social media and crm role during inpatient stay, and answer questions. Patient was alert and oriented x4 and agreeable to SW visit. Contact Information: Field Crop Farming Supervisor Name: See care team Field Crop Farming Supervisor's Phone Number: See care team Social Work Contact Name: See care team Wire Technician's Phone Number: See care team Legal Decision Maker: If a patient is without decision making capacity, the recognized order of legal representation is legal guardian, followed by healthcare power of furniture rental consultant/advance directives, and then the patient's legal next of kin. Guardian of Person: no Advance Directives: Patient does not have any advance directives on file. SW inquired whether or not patient is interested in completing health care power of furniture rental consultant and/or living will paperwork during this visit. SW reviewed the documents, discussed the benefits of completing them, and provided education re: Legal NOK (LNOK). Patient declined interest in completing the documents at this time. Legal NOK Considerations: Per [place] law, legal next of kin is in the following order: legal spouse, majority of adult children, parents, majority of adult siblings, nearest adult related by blood or adoption (aunt, uncle, niece, nephew, cousin, grandchildren, grandparent). Adult children: yes If yes, how many? one daughter, Tricia Gonzales, (ph: [phone]) Emotional/Psychological: Mood: congruent to situation Current Interpersonal Conduct/Behavior: appropriate to situation, acceptance, cooperative Mental Health Conditions/Symptoms: denies Previous Mental Health Treatment: none Distress Screen: In general, would you say your health is:: (!) Fair In general, would you say your quality of life is:: Good In general, rate your physical health?: (!) Fair In general, rate your mental health, mood and ability to think?: (!) Fair In general, how would you rate your satisfaction with your social activities and relationships?: Good To what extent are you able to carry out your everyday physical activities such as walking, climbing stairs, carrying groceries, or moving a chair?: (!) A little In general, please rate how well you carry out your usual social activities and roles. (This includes activities at home, at work and in your community, and responsibilities as a parent, child, spouse, employee, friend, etc.): Good In general, how satisfied have you been with your sex life?: (!) A little In general, how satisfied have you been with your spiritual life?: Moderately How would you rate your pain on average?: 0 How would you rate your fatigue on average?: (!) Severe How often have you been bothered by emotional problems such as feeling anxious, depressed or irritable?: (!) Sometimes Patient Coping/Stress Concerns: Patient Coping/Stress Concerns: No Patient Personal Strengths: able to adapt, positive attitude, strong support system Sources Of Support: adult child(katty) Reaction To Health Status: adjusting Understanding Of Condition And Treatment: adequate understanding of medical condition Living Environment: Lives With: child(katty), adult Living Arrangement and Set Up: house Caregiver Coping/Stress Concerns: Caregiver Coping/Stress Concerns: No Reaction To Health Status: unable to assess Employment/Financial: Employed?: Retired Employment/Financial Concerns: no Source Of Income: pension/jail Food Insecurity: Within the past 12 months, did you worry that your food would run out before you got money to buy more?: No Within the past 12 months, did the food you bought just not last and you didn t have money to get more?: No Housing/Utilities: Do you have housing?: Yes Are you worried about losing your housing?: Yes (Pt has some mild concern about losing primary residence in [place], [place]. No concern about losing current housing with adult child.) Within the past 12 months, have you or your family members you live with been unable to get utilities (heat, electricity) when it was really needed?: No Transportation: Within the past 12 months, has lack of transportation kept you from medical appointments, getting your medicines, non-medical meetings or appointments, work, or from getting things that you need?: No Alcohol Use: Q1: How often do you have a drink containing alcohol?: Never Q2: How many drinks containing alcohol do you have on a typical day when you are drinking?: Patient does not drink Q3: How often do you have six or more drinks on one occasion?: Never Substance Use: How many times in the past year have you used illegal drugs?: Never Interpersonal Safety: Do you feel physically and emotionally safe where you currently live?: Yes Within the past 12 months, have you been hit, slapped, kicked or otherwise physically hurt by someone?: No Within the past 12 months, have you been humiliated or emotionally abused in other ways by your partner or ex-partner?: No Community Resources: No community resource linkage identified at this time. Patient denied the need for resource information and new referrals. Pt was encouraged to contact SW should this status change in the future. Anticipated Discharge Plan: Anticipated Discharge Plan: Unknown/Other Medical Team Considerations: none SW Interventions/Recommendations: Service SW name and contact information placed on white board in patient's room to contact as needed. SW will continue to remain available to provide assistance and support as needed during inpatient stay. BOONE Gutierrez IRP Wire Technician PH: [phone] documented in this encounter [facility] 06-10-2025 Note Acute Coronary Syndr ome (ACS): Initial Evaluation and Management: [email or web address]/Acute%2 0Coronary%20Syndrome.pdf#search=t claudia [facility] 06-09-2025 Emergency department Note Bed: E003 Expected date: Expected time: Means of arrival: Comments: [facility] 06-09-2025 Emergency department Note Bed: E003 Expected date: Expected time: Means of arrival: Comments: [facility] Signout: Sebastian Hannon 89 y.o. male with chief complaint of Chief Complaint Patient presents with Anorexia Malaise received in sign out. BP 127/60 Pulse 62 Temp 98.7 F (37.1 C) Resp 20 Ht 1.778 m (5' 10 ) SpO2 94% BMI 22.74 kg/m Smoking Status Never The patient presents with : past medical history of melanoma on immunotherapy last 8/18/25, HF, afib with pacemaker, on coumadin, HLD comes in to the ED for nausea, decreased appetite, fatigue. - EKG: interpreted by myself as paced rhythm without acute ST changes. - lactate mildly elevated 1.7, likely due to dehydration. 500ml IVF bolus. Hypomagnesemia mag 1.5, hypokalemia, K and mag repleted. -initial trop and bnp elevated. 85 and 4511 respectively. Delta trop pending. -cbc with anemia hgb 8.0, which pt has anemia at baseline. Previous hgb 8.9. -CXR with cardiomegaly with clear lungs. -CTPE pending -TTE ordered for tomorrow. -UA pending. -delta trop pending. Pending studies and plan include: CT PE, repeat trop CT PE STUDY Final Result IMPRESSION: 1. No pulmonary embolism. No evidence of acute disease. 2. A few small lung nodules, the largest of which measures 6 mm. 3. Small soft tissue nodule corresponding to the hypermetabolic lesion seen on the prior PET. 4. Cardiomegaly and coronary artery disease. CHEST 1 VIEW PORTABLE Final Result IMPRESSION: Cardiomegaly with clear lungs. CARDIOGRAM (Results Pending) Repeat troponin 94. CT PE pending. J[facility] currently has no beds available and will admit for obs and further work up. 1:[address] PE negative. The expected disposition is: JOB vs admit CHICHI Vanessa 06/09/25 [id number] CHICHI Vanessa 06/10/25 0116 EMERGENCY DEPARTMENT ENCOUNTER CHIEF COMPLAINT Anorexia and Malaise HPI Sebastian Hannon is a 89 y.o. male with past medical history of melanoma on immunotherapy last 05/21/25, HF, afib with pacemaker, on coumadin, DAVID comes in to the ED for nausea, decreased appetite, fatigue. History of Present Illness He is currently undergoing immunotherapy for melanoma, with the first dose administered on 05/21/2025. Initially, he responded well to the treatment and was able to live independently. However, during a recent visit, it was observed that he had lost approximately 3 to 4 pounds and his appetite had significantly decreased. He has been experiencing nausea but no vomiting. His food intake has been minimal, although he managed to consume some green beans. He has been maintaining hydration. His last bowel movement was today, with the previous one occurring on Wednesday. He reports no presence of blood in his stool. He also reports no fever or chills. He experiences shortness of breath during physical exertion. He reports no urinary issues, abdominal pain, or new swelling in his lower extremities. He has a history of heart failure and allergies, which cause him to sneeze frequently. He lives alone and has not had any recent falls. He reports no head injuries, changes in vision, or lightheadedness. He experiences dizziness when standing up suddenly, which resolves on its own. He has been compliant with his medication regimen. He has not had any recent blood work done, but an EKG was performed. He is currently staying with his family as he is not feeling well enough to be alone. He is on Coumadin. Chart review: Echocardiogram 12/12/2024: 1. Mild concentric left ventricular hypertrophy with normal systolic function. LVEF is estimated at 55%. 2. Normal right ventricular size and systolic function. 3. Severe biatrial dilatation. 4. Bioprosthetic mitral valve is well-seated with normal Doppler flows and trace valve regurgitation. 5. Moderate tricuspid regurgitation. 6. Severely elevated right-sided pressures. RVSP is 69 mmHg. Echocardiogram 05/16/2024: 1. The left ventricle is normal in size and exhibits mildly to moderately reduced systolic function. Estimated LVEF is 40 to 45%. HPI obtained from: patient, daughter Disintegrator: none REVIEW OF SYSTEMS Review of Systems All other systems reviewed and are negative. PAST MEDICAL HISTORY Past Medical History[1] SURGICAL HISTORY Past Surgical History[2] MEDICATIONS Current Outpatient Medications Medication Sig Alfuzosin HCl 10 MG Tab SR 24 HR Take 1 tablet by mouth daily. amLODIPine 2.5 MG tablet Take 1 tablet by mouth daily. atorvastatin 40 MG Tab tablet Take 1 tablet by mouth daily. Calcium 500-125 MG-UNIT Tab Take 1 tablet by mouth daily. Cholecalciferol (VITAMIN D) 4000 Units capsule Take 1 capsule by mouth every other day. Cyanocobalamin (VITAMIN B 12 PO) Place 1,000 mcg under tongue daily. Ferrous Sulfate (IRON) 325 (65 Fe) MG Tab Take 1 tablet by mouth daily. Fexofenadine (Nikunj Allergy) 180 MG tablet Take 1 tablet by mouth daily. Finasteride 5 MG tablet Take 1 tablet by mouth daily every morning. Furosemide (LASIX PO) Take 60 mg by mouth daily. hydroxychloroquine 200 MG Tab tablet Take 1 tablet by mouth 2 times daily. losartan 50 MG Tab tablet Take 1 tablet by mouth daily. metoprolol succinate 25 MG tablet XL Take 50 mg by mouth 2 times daily. nitroGLYCERIN 0.[address] 1 tablet under tongue every 5 minutes as needed for Chest pain. max = 3 doses. If CP persists after 1st dose, call 911 Cwvlvghnm-Nxsiwqexin-itnz (OPDUALAG IV) by Intravenous route. Spironolactone 25 MG tablet Take 1 tablet by mouth daily every morning. warfarin 5 MG tablet Take 1.5 tablets by mouth daily. ALLERGIES Allergies[3] FAMILY HISTORY Family History Problem Relation Age of Onset Cancer- Other Mother female cancer Myocardial Infarction Father Heart Failure Father Dementia Brother Parkinson Brother Heart Disease - Other Brother Other - Specify (skin biopsies) Brother Other - Specify (other) Brother SOCIAL HISTORY Social History[4] PHYSICAL EXAM Vitals: 06/09/25 1523 06/09/25 1527 BP: 164/71 Pulse: 68 Resp: 18 Temp: 97.4 degrees F (36.3 degrees C) TempSrc: Infrared SpO2: 99% Height: 1.778 m (5' 10 ) Physical Exam Vitals reviewed. Constitutional: General: He is not in acute distress. Appearance: He is not ill-appearing, toxic-appearing or diaphoretic. Comments: elderly HENT: Mouth/Throat: Mouth: Mucous membranes are moist. Eyes: Extraocular Movements: Extraocular movements intact. Pupils: Pupils are equal, round, and reactive to light. Cardiovascular: Rate and Rhythm: Normal rate and regular rhythm. Pulses: Normal pulses. Pulmonary: Effort: Pulmonary effort is normal. No respiratory distress. Breath sounds: Normal breath sounds. No wheezing. Chest: Chest wall: No tenderness. Abdominal: General: There is no distension. Palpations: Abdomen is soft. Tenderness: There is no abdominal tenderness. There is no right CVA tenderness, left CVA tenderness or guarding. Musculoskeletal: Cervical back: Normal range of motion. Right lower leg: Edema present. Left lower leg: Edema present. Neurological: General: No focal deficit present. Mental Status: He is alert and oriented to person, place, and time. Psychiatric: Mood and Affect: Mood normal. Behavior: Behavior normal. ASSESSMENT / PLAN / MDM Sebastian Hannon is a 89 y.o. male with past medical history of melanoma on immunotherapy last 05/21/25, HF, afib with pacemaker, on coumadin, HLD comes in to the ED for nausea, decreased appetite, fatigue. DIFFERENTIAL Dx includes, but not limited to: dehydration, electrolyte derangement, PE, pna, UTI, CHF exacerbation. PLAN Orders Placed This Encounter XR CHEST [address] PE STUDY CBC, EDIF, PLATELET CHEM 7 (LYTES,BUN,CREA,GLUC) PHOSPHATE, INORGANIC MAGNESIUM CALCIUM HIGH SENSITIVITY TROPONIN I - SINGLE ORDER RAINBOW DRAW CBC AND ELECTRONIC DIFF GOLD TOP TUBE MINT GREEN TOP TUBE LAVENDER TOP TUBE LT BLUE TOP TUBE TSH W/FT4 REFLEX LIPASE HEPATIC FUNCTION PANEL NT-PRO B-TYPE NATRIURETIC PEPTIDE T4 FREE HIGH SENSITIVITY TROPONIN I - SINGLE ORDER POCT GLUCOSE, FINGER STICK ECG ECHOCARDIOGRAM TRANSTHORACIC (TTE) Sodium chloride 0.9% IV solution 500 mL DISCONTD: Magnesium sulfate 1 g in dextrose 5% 100 mL premix IVPB DISCONTD: Magnesium sulfate 1 g in dextrose 5% 100 mL premix IVPB DISCONTD: Magnesium sulfate 1 g in dextrose 5% 100 mL premix IVPB Magnesium sulfate 1 g in dextrose 5% 100 mL premix IVPB Potassium chloride (K-DUR) tablet ER 20 mEq URINALYSIS REFLEX TO CULTURE URINALYSIS REFLEX TO CULTURE PERFORMABLE EXTRA MICRO Therapeutics: Medications Magnesium sulfate 1 g in dextrose 5% 100 mL premix IVPB (has no administration in time range) Potassium chloride (K-DUR) tablet ER 20 mEq (has no administration in time range) Sodium chloride 0.9% IV solution 500 mL (500 mL Intravenous $$New Bag$$ 06/09/25 1617) Results for orders placed or performed during the hospital encounter of 06/09/25 CHEM 7 (LYTES,BUN,CREA,GLUC) Result Value Ref Range Sodium 137 135 - 145 mmol/L Potassium 3.4 (L) 3.5 - 5.0 mmol/L Chloride 101 98 - 108 mmol/L CO2 26 21 - 31 mmol/L Glucose 123 Nonfastin-179 mg/dL; Fastin-99 mg/dL BUN 30 (H) 7 - 25 mg/dL Creatinine 1.46 (H) 0.70 - 1.30 mg/dL Bun/Crea Ratio 21 Osmolality (Calculated) 294 278 - 305 mOsm/kg Anion Gap 13 7 - 17 mmol/L eGFR, CKD-EPI, Male 46 (L) >=60 mL/min/1.73m2 PHOSPHATE, INORGANIC Result Value Ref Range Phosphorous 3.4 2.2 - 4.6 mg/dL MAGNESIUM Result Value Ref Range Magnesium 1.5 (L) 1.6 - 2.6 mg/dL CALCIUM Result Value Ref Range Calcium 9.3 8.6 - 10.5 mg/dL HIGH SENSITIVITY TROPONIN I - SINGLE ORDER Result Value Ref Range hs-Troponin I 85 (H) <53 ng/L CBC AND ELECTRONIC DIFF Result Value Ref Range WBC Count 5.42 3.73 - 10.10 K/uL RBC Count 2.59 (L) 4.38 - 5.83 M/uL Hemoglobin 8.0 (L) 13.4 - 16.8 g/dL Hematocrit 24.1 (L) 39.6 - 48.8 % Mean Cell Volume 93.1 79.0 - 94.5 fL Mean Cell Hgb 30.9 26.1 - 33.3 pg Mean Cell Hgb Conc 33.2 31.9 - 36.5 g/dL RBC Distribution 13.6 10.9 - 14.3 % Platelet Count 170 146 - 337 K/uL Mean Platelet Volume 10.0 8.7 - 12.3 fL DIFF STATUS Electronic Differential Segs + Bands Auto 78.5 % Immature Grans % 0.4 % Lymphocyte % Auto 8.1 % Monocyte % Auto 12.0 % Eosinophil % Auto 0.4 % Basophil % Auto 0.6 % Nucleated RBC 0.0 <=0.2 /100 WBC Segs + Bands,Absolute Auto 4.26 1.57 - 6.19 K/uL Immature Grans Absolute <0.04 <=0.07 K/uL Abs Lymph Auto 0.44 (L) 0.83 - 3.57 K/uL Abs [place] Auto 0.65 0.24 - 0.93 K/uL Abs Eos Auto <0.04 0.00 - 0.48 K/uL Abs Baso Auto <0.04 0.00 - 0.09 K/uL TSH W/FT4 REFLEX Result Value Ref Range TSH 0.149 (L) 0.550 - 4.780 uIU/mL LIPASE Result Value Ref Range Lipase 10 (L) 11 - 82 U/L HEPATIC FUNCTION PANEL Result Value Ref Range Albumin 3.8 3.5 - 5.0 g/dL Bilirubin Direct 0.2 <0.3 mg/dL Bilirubin Total 0.8 <1.5 mg/dL ALP 94 32 - 126 U/L ALT 9 (L) 10 - 52 U/L AST 16 10 - 39 U/L Total Protein 6.5 6.4 - 8.3 g/dL NT-PRO B-TYPE NATRIURETIC PEPTIDE Result Value Ref Range NT-Pro B-Type Natriuretic Peptide 4,511 (H) <=540 pg/mL T4 FREE Result Value Ref Range Free T4 1.98 (H) 0.89 - 1.76 ng/dL LACTATE, WHOLE BLOOD Result Value Ref Range Lactate, Whole Blood 1.7 (H) 0.5 - 1.6 mmol/L XR CHEST 1 VIEW PORTABLE Final Result IMPRESSION: Cardiomegaly with clear lungs. PE STUDY (Results Pending) ECHOCARDIOGRAM (Results Pending) CENTRAL LINES: Central Line Indications: No line currently in place If patient has multiple lines, please choose the answers of the next two questions to correlate with the lines listed above in descending order Can line/s be removed today? Select all that apply No line in place at this time Dressing/s Clean/Dry/Intact?: Select all that apply No line currently in place ED COURSE / MDM: I have reviewed the labs and imaging for the visit and noted the abnormal results. -pt presents with fatigue, nausea, poor PO intake. VSS in ED. - EKG: interpreted by myself as paced rhythm without acute ST changes. - lactate mildly elevated 1.7, likely due to dehydration. 500ml IVF bolus. Hypomagnesemia mag 1.5, hypokalemia, K and mag repleted. -initial trop and bnp elevated. 85 and 4511 respectively. Delta trop pending. -cbc with anemia hgb 8.0, which pt has anemia at baseline. Previous hgb 8.9. -CXR with cardiomegaly with clear lungs. -CTPE pending -TTE ordered for tomorrow. -UA pending. -delta trop pending. Sign out given to Siria Wolfe CNP. Medical Decision Making Amount and/or Complexity of Data Reviewed Labs: ordered. Radiology: ordered. Risk Prescription drug management. Fall Risk: Assessed for patient fall risk and discussed safety measures during rounding. IMPRESSION ICD-10-CM 1. Hypomagnesemia E83.42 2. Hypokalemia E87.6 3. Elevated troponin R79.89 4. Elevated brain natriuretic peptide (BNP) level R79.89 5. Other fatigue R53.83 6. ELIZABETH (dyspnea on exertion) R06.09 DISPOSITION Admit/Obs Results and plan were discussed with the patient and patient verbalized understanding and agreement. All questions from pt were answered. This was a shared visit with Dr. Sweeney. The plan of care was discussed and developed mutually with the attending physician. This dictation was created with voice recognition software. While attempts have been made to review the dictation as it is transcribed, on occasion the spoken word can be misinterpreted by the technology leading to omissions or inappropriate words, phrases or sentences. Note to patient: The Century Cures Act makes medical notes like these available to patients in the interest of transparency. However, be advised this is a medical document. It is intended as [id number] communication. It is written in medical language and may contain abbreviations or verbiage that are unfamiliar. It may appear blunt or direct. Medical documents are intended to carry relevant information, facts as evident, and the clinical opinion of the practitioner. 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 Labs reviewed and physical exam completed. I reviewed PET scans which show Prostate cancer 2020 radiation seeds Pulmonary hypertension Rheumatoid arthritis Sinus bradycardia Valvular heart disease [2] Past Surgical History: Procedure Laterality Date PACEMAKER PLACEMENT 2020 and fibrillator PACEMAKER PLACEMENT 2010 HEART VALVE SURGERY 2006 valve replacement BACK SURGERY 1981 SKIN BIOPSY [3] Allergies Allergen Reactions Latex Itching Penicillins [4] Social History Socioeconomic History Marital status: Tobacco Use Smoking status: Never Smokeless tobacco: Never Vaping Use Vaping status: Never Used Substance and Sexual Activity Alcohol use: Not Currently Drug use: Never Social [employer] [facility] [employer] Received from [facility] Bruna Carrillo PA-C 06/09/25 1410 ED ATTENDING NOTE Chief Complaint: Anorexia and Malaise HPI: Sebastian Hannon is a 89 y.o. male History of Present Illness 89-year-old individual with melanoma presenting with nausea, decreased appetite, poor oral intake, and fatigue. Received first dose of immunotherapy on 05/21/2025. Brought to ED by daughter. Daughter observed 3-4 lb weight loss over the weekend. Patient has decreased appetite and nausea, no vomiting or abdominal pain. Intermittent constipation, had bowel movement today and last Wednesday. No blood in stool or painful urination. Reports generalized weakness and dyspnea on exertion, possibly related to fatigue, poor intake, and immunotherapy. No fever or chills. Daughter contacted triage line, advised to bring them to ED for evaluation and possible fluid administration. Now residing with daughter in [place]. No recent falls or head injuries. Past Medical History: Past Medical History[1] Family history reviewed and noncontributory other than: Family History Problem Relation Age of Onset Cancer- Other Mother female cancer Myocardial Infarction Father Heart Failure Father Dementia Brother Parkinson Brother Heart Disease - Other Brother Other - Specify (skin biopsies) Brother Other - Specify (other) Brother Social history reviewed and noncontributory other than: Social History Socioeconomic History Marital status: Spouse name: Not on file Number of children: Not on file Years of education: Not on file Highest education level: Not on file Occupational History Not on file Tobacco Use Smoking status: Never Smokeless tobacco: Never Vaping Use Vaping status: Never Used Substance and Sexual Activity Alcohol use: Not Currently Drug use: Never Sexual activity: Not on file Other Topics Concern Not on file Social History Narrative Not on file Social Drivers of Health Financial Resource Strain: Not on file Food Insecurity: Not on file Transportation Needs: Not on file Physical Activity: Not on file Stress: Not on file Social Connections: Not on file Personal Safety: Unknown (11/25/2023) Received from [facility] Fear of Current or Ex-Partner: Not on file Emotionally Abused: Not on file Physically Abused: Not on file Sexually Abused: Not on file Physically or Sexually Abused: Not on file Housing Stability: Not on file Vital Signs: BP 164/71 Pulse 68 Temp 97.4 F (36.3 C) (Infrared) Resp 18 Ht 1.778 m (5' 10 ) SpO2 99% BMI 22.74 kg/m Smoking Status Never Pertinent Exam: Physical Exam Afebrile. Pupils equal, round, reactive to light. Not tachycardic. Clear to auscultation bilaterally. Abdomen soft, nondistended, nontender. Bilateral pitting edema on lower legs, chronic baseline. Results Imaging Ejection fraction was 55% in December 2024 and 40 to 45% in May 2024. Assessment/Plan/Disposition: Assessment & Plan Medical Decision Making 89-year-old individual with melanoma, presenting with nausea, decreased appetite, poor oral intake, and fatigue post-immunotherapy. Differential Diagnosis: - Pneumonia: Chest x-ray to rule out. - Electrolyte imbalance: Check electrolytes. - Dehydration: 500 mL fluid initially, additional 250 mL boluses if needed. ED Course: - Administered 500 mL fluid. Final Assessment: Administered 500 mL fluid. Chest x-ray and electrolytes to be checked. Plan for frequent infusions to manage dehydration. Clinical Impression: - Nausea - Decreased appetite - Poor oral intake - Fatigue - Dyspnea on exertion, could be due to many causes, including fatigue/dehydration. If he is still having ELIZABETH after appropriate rehydration and if cxr is negative, consider CT PE to r/o underlying PE - History of heart failure 1700: Dispo pending labs/imaging/iv hydration re-evaluation by oncoming team after sign out Given elevated troponin as well as elevated BNP I am concerned about the possibility of PE the patient has been immobile and is active cancer we will obtain CT PE. Clinically he does still appear intra vascularly depleted Amount and/or Complexity of Data Reviewed Labs: ordered. Decision-making details documented in ED Course. Radiology: ordered and independent interpretation performed. Decision-making details documented in ED Course. ECG/medicine tests: ordered and independent interpretation performed. Decision-making details documented in ED Course. Details: Dual chamber pacemaker, appears to be functioning properly wide QRS as expected Risk Prescription drug management. On 06/09/2025 I saw and evaluated the patient with MY. I provided a substantive portion of the care for this patient. I personally performed all aspects of the medical decision making for this encounter. I have reviewed and verified this with the MY so that it accurately reflects our care. Voice recognition software was used for documentation and errors in sr. logistics analyst may have occurred despite proof reading. 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 Labs reviewed and physical exam completed. I reviewed PET scans which show Prostate cancer 2020 radiation seeds Pulmonary hypertension Rheumatoid arthritis Sinus bradycardia Valvular heart disease Felix Sweeney MD 06/09/25 1656 Bed: [facility] Expected date: Expected time: Means of arrival: Comments: triage Patient arrives with CC fatigue and loss of appetite for 3 days. Patient is currently receiving immunotherapy for melanoma. First treatment in May. Patient states he has been feeling generally unwell. Denies CP/SOB, N/T, diarrhea, urinary symptoms. Endorses nausea without vomiting and intermittent constipation. A&Ox4. VSS. documented in this encounter [facility] 06-09-2025 Note Acute Coronary Syndr ome (ACS): Initial Evaluation and Management: [email or web address] 0Coronary%20Syndrome.pdf#search=[email or web address] claudia [facility] 06-09-2025 Physician Emergency department Note Signout: Sebastian Hannon 89 y.o. male with chief complaint of Chief Complaint Patient presents with Anorexia Malaise received in sign out. BP 127/60 Pulse 62 Temp 98.7 F (37.1 C) Resp 20 Ht 1.778 m (5' 10 ) SpO2 94% BMI 22.74 kg/m Smoking Status Never The patient presents with : past medical history of melanoma on immunotherapy last 05/21/25, HF, afib with pacemaker, on coumadin, HLD comes in to the ED for nausea, decreased appetite, fatigue. - EKG: interpreted by myself as paced rhythm without acute ST changes. - lactate mildly elevated 1.7, likely due to dehydration. 500ml IVF bolus. Hypomagnesemia mag 1.5, hypokalemia, K and mag repleted. -initial trop and bnp elevated. 85 and 4511 respectively. Delta trop pending. -cbc with anemia hgb 8.0, which pt has anemia at baseline. Previous hgb 8.9. -CXR with cardiomegaly with clear lungs. -CTPE pending -TTE ordered for tomorrow. -UA pending. -delta trop pending. Pending studies and plan include: CT PE, repeat trop CT PE STUDY Final Result IMPRESSION: 1. No pulmonary embolism. No evidence of acute disease. 2. A few small lung nodules, the largest of which measures 6 mm. 3. Small soft tissue nodule corresponding to the hypermetabolic lesion seen on the prior PET. 4. Cardiomegaly and coronary artery disease. CHEST 1 VIEW PORTABLE Final Result IMPRESSION: Cardiomegaly with clear lungs. CARDIOGRAM (Results Pending) Repeat troponin 94. CT PE pending. [facility] currently has no beds available and will admit for obs and further work up. 1:[address] PE negative. The expected disposition is: [facility] vs admit CHICHI Vansesa 06/09/25 2319 CHICHI Vanessa 06/10/25 0116 [facility] 06-09-2025 Note Acute Coronary Syndr ome (ACS): Initial Evaluation and Management: [email or web address] 0Coronary%20Syndrome.pdf#search=[email or web address] claudia [facility] 06-09-2025 Physician Emergency department Note EMERGENCY DEPARTMENT ENCOUNTER CHIEF COMPLAINT Anorexia and Malaise HPI Sebastian Hannon is a 89 y.o. male with past medical history of melanoma on immunotherapy last 05/21/25, HF, afib with pacemaker, on coumadin, HLD comes in to the ED for nausea, decreased appetite, fatigue. History of Present Illness He is currently undergoing immunotherapy for melanoma, with the first dose administered on 05/21/2025. Initially, he responded well to the treatment and was able to live independently. However, during a recent visit, it was observed that he had lost approximately 3 to 4 pounds and his appetite had significantly decreased. He has been experiencing nausea but no vomiting. His food intake has been minimal, although he managed to consume some green beans. He has been maintaining hydration. His last bowel movement was today, with the previous one occurring on Wednesday. He reports no presence of blood in his stool. He also reports no fever or chills. He experiences shortness of breath during physical exertion. He reports no urinary issues, abdominal pain, or new swelling in his lower extremities. He has a history of heart failure and allergies, which cause him to sneeze frequently. He lives alone and has not had any recent falls. He reports no head injuries, changes in vision, or lightheadedness. He experiences dizziness when standing up suddenly, which resolves on its own. He has been compliant with his medication regimen. He has not had any recent blood work done, but an EKG was performed. He is currently staying with his family as he is not feeling well enough to be alone. He is on Coumadin. Chart review: Echocardiogram 12/12/2024: 1. Mild concentric left ventricular hypertrophy with normal systolic function. LVEF is estimated at 55%. 2. Normal right ventricular size and systolic function. 3. Severe biatrial dilatation. 4. Bioprosthetic mitral valve is well-seated with normal Doppler flows and trace valve regurgitation. 5. Moderate tricuspid regurgitation. 6. Severely elevated right-sided pressures. RVSP is 69 mmHg. Echocardiogram 05/16/2024: 1. The left ventricle is normal in size and exhibits mildly to moderately reduced systolic function. Estimated LVEF is 40 to 45%. HPI obtained from: patient, daughter Disintegrator: none REVIEW OF SYSTEMS Review of Systems All other systems reviewed and are negative. PAST MEDICAL HISTORY Past Medical History[1] SURGICAL HISTORY Past Surgical History[2] MEDICATIONS Current Outpatient Medications Medication Sig Alfuzosin HCl 10 MG Tab SR 24 HR Take 1 tablet by mouth daily. amLODIPine 2.5 MG tablet Take 1 tablet by mouth daily. atorvastatin 40 MG Tab tablet Take 1 tablet by mouth daily. Calcium 500-125 MG-UNIT Tab Take 1 tablet by mouth daily. Cholecalciferol (VITAMIN D) 4000 Units capsule Take 1 capsule by mouth every other day. Cyanocobalamin (VITAMIN B 12 PO) Place 1,000 mcg under tongue daily. Ferrous Sulfate (IRON) 325 (65 Fe) MG Tab Take 1 tablet by mouth daily. Fexofenadine (Nikunj Allergy) 180 MG tablet Take 1 tablet by mouth daily. Finasteride 5 MG tablet Take 1 tablet by mouth daily every morning. Furosemide (LASIX PO) Take 60 mg by mouth daily. hydroxychloroquine 200 MG Tab tablet Take 1 tablet by mouth 2 times daily. losartan 50 MG Tab tablet Take 1 tablet by mouth daily. metoprolol succinate 25 MG tablet XL Take 50 mg by mouth 2 times daily. nitroGLYCERIN 0.[address] 1 tablet under tongue every 5 minutes as needed for Chest pain. max = 3 doses. If CP persists after 1st dose, call 911 Ankddtiya-Raxvxygxxq-wqap (OPDUALAG IV) by Intravenous route. Spironolactone 25 MG tablet Take 1 tablet by mouth daily every morning. warfarin 5 MG tablet Take 1.5 tablets by mouth daily. ALLERGIES Allergies[3] FAMILY HISTORY Family History Problem Relation Age of Onset Cancer- Other Mother female cancer Myocardial Infarction Father Heart Failure Father Dementia Brother Parkinson Brother Heart Disease - Other Brother Other - Specify (skin biopsies) Brother Other - Specify (other) Brother SOCIAL HISTORY Social History[4] PHYSICAL EXAM Vitals: 06/09/25 1523 06/09/25 1527 BP: 164/71 Pulse: 68 Resp: 18 Temp: 97.4 degrees F (36.3 degrees C) TempSrc: Infrared SpO2: 99% Height: 1.778 m (5' 10 ) Physical Exam Vitals reviewed. Constitutional: General: He is not in acute distress. Appearance: He is not ill-appearing, toxic-appearing or diaphoretic. Comments: elderly HENT: Mouth/Throat: Mouth: Mucous membranes are moist. Eyes: Extraocular Movements: Extraocular movements intact. Pupils: Pupils are equal, round, and reactive to light. Cardiovascular: Rate and Rhythm: Normal rate and regular rhythm. Pulses: Normal pulses. Pulmonary: Effort: Pulmonary effort is normal. No respiratory distress. Breath sounds: Normal breath sounds. No wheezing. Chest: Chest wall: No tenderness. Abdominal: General: There is no distension. Palpations: Abdomen is soft. Tenderness: There is no abdominal tenderness. There is no right CVA tenderness, left CVA tenderness or guarding. Musculoskeletal: Cervical back: Normal range of motion. Right lower leg: Edema present. Left lower leg: Edema present. Neurological: General: No focal deficit present. Mental Status: He is alert and oriented to person, place, and time. Psychiatric: Mood and Affect: Mood normal. Behavior: Behavior normal. ASSESSMENT / PLAN / MDM Sebastian Hannon is a 89 y.o. male with past medical history of melanoma on immunotherapy last 05/21/25, HF, afib with pacemaker, on coumadin, HLD comes in to the ED for nausea, decreased appetite, fatigue. DIFFERENTIAL Dx includes, but not limited to: dehydration, electrolyte derangement, PE, pna, UTI, CHF exacerbation. PLAN Orders Placed This Encounter XR CHEST [address] PE STUDY CBC, EDIF, PLATELET CHEM 7 (LYTES,BUN,CREA,GLUC) PHOSPHATE, INORGANIC MAGNESIUM CALCIUM HIGH SENSITIVITY TROPONIN I - SINGLE ORDER RAINBOW DRAW CBC AND ELECTRONIC DIFF GOLD TOP TUBE MINT GREEN TOP TUBE LAVENDER TOP TUBE LT BLUE TOP TUBE TSH W/FT4 REFLEX LIPASE HEPATIC FUNCTION PANEL NT-PRO B-TYPE NATRIURETIC PEPTIDE T4 FREE HIGH SENSITIVITY TROPONIN I - SINGLE ORDER POCT GLUCOSE, FINGER STICK ECG ECHOCARDIOGRAM TRANSTHORACIC (TTE) Sodium chloride 0.9% IV solution 500 mL DISCONTD: Magnesium sulfate 1 g in dextrose 5% 100 mL premix IVPB DISCONTD: Magnesium sulfate 1 g in dextrose 5% 100 mL premix IVPB DISCONTD: Magnesium sulfate 1 g in dextrose 5% 100 mL premix IVPB Magnesium sulfate 1 g in dextrose 5% 100 mL premix IVPB Potassium chloride (K-DUR) tablet ER 20 mEq URINALYSIS REFLEX TO CULTURE URINALYSIS REFLEX TO CULTURE PERFORMABLE EXTRA MICRO Therapeutics: Medications Magnesium sulfate 1 g in dextrose 5% 100 mL premix IVPB (has no administration in time range) Potassium chloride (K-DUR) tablet ER 20 mEq (has no administration in time range) Sodium chloride 0.9% IV solution 500 mL (500 mL Intravenous $$New Bag$$ 06/09/25 1617) Results for orders placed or performed during the hospital encounter of 06/09/25 CHEM 7 (LYTES,BUN,CREA,GLUC) Result Value Ref Range Sodium 137 135 - 145 mmol/L Potassium 3.4 (L) 3.5 - 5.0 mmol/L Chloride 101 98 - 108 mmol/L CO2 26 21 - 31 mmol/L Glucose 123 Nonfastin-179 mg/dL; Fastin-99 mg/dL BUN 30 (H) 7 - 25 mg/dL Creatinine 1.46 (H) 0.70 - 1.30 mg/dL Bun/Crea Ratio 21 Osmolality (Calculated) 294 278 - 305 mOsm/kg Anion Gap 13 7 - 17 mmol/L eGFR, CKD-EPI, Male 46 (L) >=60 mL/min/1.73m2 PHOSPHATE, INORGANIC Result Value Ref Range Phosphorous 3.4 2.2 - 4.6 mg/dL MAGNESIUM Result Value Ref Range Magnesium 1.5 (L) 1.6 - 2.6 mg/dL CALCIUM Result Value Ref Range Calcium 9.3 8.6 - 10.5 mg/dL HIGH SENSITIVITY TROPONIN I - SINGLE ORDER Result Value Ref Range hs-Troponin I 85 (H) <53 ng/L CBC AND ELECTRONIC DIFF Result Value Ref Range WBC Count 5.42 3.73 - 10.10 K/uL RBC Count 2.59 (L) 4.38 - 5.83 M/uL Hemoglobin 8.0 (L) 13.4 - 16.8 g/dL Hematocrit 24.1 (L) 39.6 - 48.8 % Mean Cell Volume 93.1 79.0 - 94.5 fL Mean Cell Hgb 30.9 26.1 - 33.3 pg Mean Cell Hgb Conc 33.2 31.9 - 36.5 g/dL RBC Distribution 13.6 10.9 - 14.3 % Platelet Count 170 146 - 337 K/uL Mean Platelet Volume 10.0 8.7 - 12.3 fL DIFF STATUS Electronic Differential Segs + Bands Auto 78.5 % Immature Grans % 0.4 % Lymphocyte % Auto 8.1 % Monocyte % Auto 12.0 % Eosinophil % Auto 0.4 % Basophil % Auto 0.6 % Nucleated RBC 0.0 <=0.2 /100 WBC Segs + Bands,Absolute Auto 4.26 1.57 - 6.19 K/uL Immature Grans Absolute <0.04 <=0.07 K/uL Abs Lymph Auto 0.44 (L) 0.83 - 3.57 K/uL Abs [place] Auto 0.65 0.24 - 0.93 K/uL Abs Eos Auto <0.04 0.00 - 0.48 K/uL Abs Baso Auto <0.04 0.00 - 0.09 K/uL TSH W/FT4 REFLEX Result Value Ref Range TSH 0.149 (L) 0.550 - 4.780 uIU/mL LIPASE Result Value Ref Range Lipase 10 (L) 11 - 82 U/L HEPATIC FUNCTION PANEL Result Value Ref Range Albumin 3.8 3.5 - 5.0 g/dL Bilirubin Direct 0.2 <0.3 mg/dL Bilirubin Total 0.8 <1.5 mg/dL ALP 94 32 - 126 U/L ALT 9 (L) 10 - 52 U/L AST 16 10 - 39 U/L Total Protein 6.5 6.4 - 8.3 g/dL NT-PRO B-TYPE NATRIURETIC PEPTIDE Result Value Ref Range NT-Pro B-Type Natriuretic Peptide 4,511 (H) <=540 pg/mL T4 FREE Result Value Ref Range Free T4 1.98 (H) 0.89 - 1.76 ng/dL LACTATE, WHOLE BLOOD Result Value Ref Range Lactate, Whole Blood 1.7 (H) 0.5 - 1.6 mmol/L XR CHEST 1 VIEW PORTABLE Final Result IMPRESSION: Cardiomegaly with clear lungs. PE STUDY (Results Pending) ECHOCARDIOGRAM (Results Pending) CENTRAL LINES: Central Line Indications: No line currently in place If patient has multiple lines, please choose the answers of the next two questions to correlate with the lines listed above in descending order Can line/s be removed today? Select all that apply No line in place at this time Dressing/s Clean/Dry/Intact?: Select all that apply No line currently in place ED COURSE / MDM: I have reviewed the labs and imaging for the visit and noted the abnormal results. -pt presents with fatigue, nausea, poor PO intake. VSS in ED. - EKG: interpreted by myself as paced rhythm without acute ST changes. - lactate mildly elevated 1.7, likely due to dehydration. 500ml IVF bolus. Hypomagnesemia mag 1.5, hypokalemia, K and mag repleted. -initial trop and bnp elevated. 85 and 4511 respectively. Delta trop pending. -cbc with anemia hgb 8.0, which pt has anemia at baseline. Previous hgb 8.9. -CXR with cardiomegaly with clear lungs. -CTPE pending -TTE ordered for tomorrow. -UA pending. -delta trop pending. Sign out given to Siria Wolfe CNP. Medical Decision Making Amount and/or Complexity of Data Reviewed Labs: ordered. Radiology: ordered. Risk Prescription drug management. Fall Risk: Assessed for patient fall risk and discussed safety measures during rounding. IMPRESSION ICD-10-CM 1. Hypomagnesemia E83.42 2. Hypokalemia E87.6 3. Elevated troponin R79.89 4. Elevated brain natriuretic peptide (BNP) level R79.89 5. Other fatigue R53.83 6. ELIZABETH (dyspnea on exertion) R06.09 DISPOSITION Admit/Obs Results and plan were discussed with the patient and patient verbalized understanding and agreement. All questions from pt were answered. This was a shared visit with Dr. Sweeney. The plan of care was discussed and developed mutually with the attending physician. This dictation was created with voice recognition software. While attempts have been made to review the dictation as it is transcribed, on occasion the spoken word can be misinterpreted by the technology leading to omissions or inappropriate words, phrases or sentences. Note to patient: The Century Cures Act makes medical notes like these available to patients in the interest of transparency. However, be advised this is a medical document. It is intended as qinw-lo-ntqy communication. It is written in medical language and may contain abbreviations or verbiage that are unfamiliar. It may appear blunt or direct. Medical documents are intended to carry relevant information, facts as evident, and the clinical opinion of the practitioner. 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 Labs reviewed and physical exam completed. I reviewed PET scans which show Prostate cancer 2019 radiation seeds Pulmonary hypertension Rheumatoid arthritis Sinus bradycardia Valvular heart disease [2] Past Surgical History: Procedure Laterality Date PACEMAKER PLACEMENT 2020 and fibrillator PACEMAKER PLACEMENT 2010 HEART VALVE SURGERY 2006 valve replacement BACK SURGERY 1980 SKIN BIOPSY [3] Allergies Allergen Reactions Latex Itching Penicillins [4] Social History Socioeconomic History Marital status: Tobacco Use Smoking status: Never Smokeless tobacco: Never Vaping Use Vaping status: Never Used Substance and Sexual Activity Alcohol use: Not Currently Drug use: Never Social Drivers of Health Received from [facility] Environment Bruna Carrillo PA-C 06/09/25 1759 [facility] 06-09-2025 Physician Emergency department Note ED ATTENDING NOTE Chief Complaint: Anorexia and Malaise HPI: Sebastian Hannon is a 89 y.o. male History of Present Illness 89-year-old individual with melanoma presenting with nausea, decreased appetite, poor oral intake, and fatigue. Received first dose of immunotherapy on 05/21/2025. Brought to ED by daughter. Daughter observed 3-4 lb weight loss over the weekend. Patient has decreased appetite and nausea, no vomiting or abdominal pain. Intermittent constipation, had bowel movement today and last Wednesday. No blood in stool or painful urination. Reports generalized weakness and dyspnea on exertion, possibly related to fatigue, poor intake, and immunotherapy. No fever or chills. Daughter contacted triage line, advised to bring them to ED for evaluation and possible fluid administration. Now residing with daughter in [place]. No recent falls or head injuries. Past Medical History: Past Medical History[1] Family history reviewed and noncontributory other than: Family History Problem Relation Age of Onset Cancer- Other Mother female cancer Myocardial Infarction Father Heart Failure Father Dementia Brother Parkinson Brother Heart Disease - Other Brother Other - Specify (skin biopsies) Brother Other - Specify (other) Brother Social history reviewed and noncontributory other than: Social History Socioeconomic History Marital status: Spouse name: Not on file Number of children: Not on file Years of education: Not on file Highest education level: Not on file Occupational History Not on file Tobacco Use Smoking status: Never Smokeless tobacco: Never Vaping Use Vaping status: Never Used Substance and Sexual Activity Alcohol use: Not Currently Drug use: Never Sexual activity: Not on file Other Topics Concern Not on file Social History Narrative Not on file Social Drivers of Health Financial Resource Strain: Not on file Food Insecurity: Not on file Transportation Needs: Not on file Physical Activity: Not on file Stress: Not on file Social Connections: Not on file Personal Safety: Unknown (11/25/2023) Received from [facility] [place] [facility] Fear of Current or Ex-Partner: Not on file Emotionally Abused: Not on file Physically Abused: Not on file Sexually Abused: Not on file Physically or Sexually Abused: Not on file Housing Stability: Not on file Vital Signs: BP 164/71 Pulse 68 Temp 97.4 F (36.3 C) (Infrared) Resp 18 Ht 1.778 m (5' 10 ) SpO2 99% BMI 22.74 kg/m Smoking Status Never Pertinent Exam: Physical Exam Afebrile. Pupils equal, round, reactive to light. Not tachycardic. Clear to auscultation bilaterally. Abdomen soft, nondistended, nontender. Bilateral pitting edema on lower legs, chronic baseline. Results Imaging Ejection fraction was 55% in December 2024 and 40 to 45% in May 2024. Assessment/Plan/Disposition: Assessment & Plan Medical Decision Making 89-year-old individual with melanoma, presenting with nausea, decreased appetite, poor oral intake, and fatigue post-immunotherapy. Differential Diagnosis: - Pneumonia: Chest x-ray to rule out. - Electrolyte imbalance: Check electrolytes. - Dehydration: 500 mL fluid initially, additional 250 mL boluses if needed. ED Course: - Administered 500 mL fluid. Final Assessment: Administered 500 mL fluid. Chest x-ray and electrolytes to be checked. Plan for frequent infusions to manage dehydration. Clinical Impression: - Nausea - Decreased appetite - Poor oral intake - Fatigue - Dyspnea on exertion, could be due to many causes, including fatigue/dehydration. If he is still having ELIZABETH after appropriate rehydration and if cxr is negative, consider CT PE to r/o underlying PE - History of heart failure 1700: Dispo pending labs/imaging/iv hydration re-evaluation by oncoming team after sign out Given elevated troponin as well as elevated BNP I am concerned about the possibility of PE the patient has been immobile and is active cancer we will obtain CT PE. Clinically he does still appear intra vascularly depleted Amount and/or Complexity of Data Reviewed Labs: ordered. Decision-making details documented in ED Course. Radiology: ordered and independent interpretation performed. Decision-making details documented in ED Course. ECG/medicine tests: ordered and independent interpretation performed. Decision-making details documented in ED Course. Details: Dual chamber pacemaker, appears to be functioning properly wide QRS as expected Risk Prescription drug management. On 06/09/2025 I saw and evaluated the patient with MY. I provided a substantive portion of the care for this patient. I personally performed all aspects of the medical decision making for this encounter. I have reviewed and verified this with the MY so that it accurately reflects our care. Voice recognition software was used for documentation and errors in sr. logistics analyst may have occurred despite proof reading. 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 Labs reviewed and physical exam completed. I reviewed PET scans which show Prostate cancer 2020 radiation seeds Pulmonary hypertension Rheumatoid arthritis Sinus bradycardia Valvular heart disease Felix Sweeney MD 06/09/25 1656 [facility] Work Phone: 06-09-2025 Emergency department Note Bed: [facility] Expected date: Expected time: Means of arrival: Comments: triage [facility] 06-09-2025 Emergency department Note Patient arrives with CC fatigue and loss of appetite for 3 days. Patient is currently receiving immunotherapy for melanoma. First treatment in May. Patient states he has been feeling generally unwell. Denies CP/SOB, N/T, diarrhea, urinary symptoms. Endorses nausea without vomiting and intermittent constipation. A&Ox4. VSS. [facility] 05-21-2025 History of Present illness Narrative 1545 Report received from Lanie SEARS, ok for treatment today, rtc 06/18,07/16,08/13,09/10 after provider. Message sent to [facility] to schedule patient for future appointments. Arrival message sent to pharmacy to release saline and premeds as indicated. Pt is ready for infusion of c1d1 opdualag Nurse reviewed the following for abnormalities: yes Allergies Medications Labs Vital Signs Validated the following are signed/documented: yes Chemotherapy Ancillary Plan ECOG/Toxicity Reviewed patient assessment and outstanding items: yes PIV Patient/family needs and learning style identified (see teaching/learning flowsheet). Falls risk assessed, safety measures implemented. Report Handoff given to Yudi SEARS PIV All appts made: yes___no_x__ AVS given: yes____ no__x___ Sebastian Hannon received nivolumab-relatlimab today - completed Cycle 1 Day 1. No signs or symptoms of a reaction noted. Patient to return for next treatment on 06/21. Pt left ambulatory in stable condition. Pt denied need for AVS. documented in this encounter [facility] 05-21-2025 Instructions Yudi Aragon RN - 05/21/2025 3:00 PM EDT Immunotherapy Side Effects: Some side effects you may experience are: Fatigue Nausea/vomiting/diarrhea. Rash Inflammation of the liver (hepatitis) that can cause abdominal pain, yellowing of the skin Inflammation of the thyroid (thyroiditis) that can cause fatigue and headache Inflammation of the lung (pneumonitis). Patient was informed to notify the physician if SOB or unusual cough is noted. Hypothyroidism characterized by fatigue, weight gain, cold intolerance, myalgias, constipation and/or dry skin. We will monitor for the above side effects with every visit. If you have any questions/minor issues call your physician's office. For any life-threatening issues such as allergic reaction, go straight to local ER. Please call our office ([phone]) if you have 4 or more bowel movements a day. SURVEY: Following your visit today, you may receive a survey via the mail or email asking about your experience. If at any time during your visit you feel your care is/was less than very good please let us know immediately. We are always looking for ways to improve your visit. Our goal is to provide you with excellent service and care. Thank you! The following attachments cannot be sent through Care Everywhere.Nivolumab/Relatlimab Injection (NIVOLUMAB/RELATLIMAB - INJECTION) ([place]er)documented in this encounter [facility] 05-21-2025 History of Present illness Narrative Department of Pharmacy Note Patient: Sebastian Hannon Clinic: Cutaneous Malignancies Education Note I provided education on the following regimen: Sebastian Hannon is here today to discuss treatment with nivolumab-relatlimab for melanoma of the scalp. I saw the patient for counseling and to answer questions related to treatment. I went over the following main points with the patient: - Nivolumab/Relatlimab (Opdualag) is administered as an IV infusion over 30 minutes every 4 weeks. Some side effects that may occur include: Dermatitis: Rash Colitis: Diarrhea. Patient was instructed to call the clinic for > 4 stools/day above baseline. Patient was instructed to call clinic to report symptoms prior to using OTC medications (I.e. Imodium, pepto-bismol, etc). Endocrinopathies: Fatigue (may be severe), feeling cold, and headaches Pneumonitis: Cough and/or shortness of breath Abnormal labs: hepatic, renal, and thyroid Myocarditis: shortness of breath, chest pain We discussed that side effects are most common during the first four months of treatment and can happen at any time between doses. We will monitor for the above side effects with every visit. The patient is to call the physician's office with any of the reviewed side effects or any questions/concerns in between appointments. We also discussed that steroids of any kind should not be taken without calling the office first to receive approval. Patient demonstrated good understanding of the above with no additional questions. Please feel free to contact me with any further questions. Name: Flynn Hernandes RPH Phone: [phone] Date/Time: 05/21/2025 3:39 PM NEW PATIENT: MEDICAL ONCOLOGY - [facility] Note to patient: The Century Cures Act makes medical notes like these available to patients in the interest of transparency. However, be advised this is a medical document. It is intended as nvbl-ho-ymju communication. It is written in medical language and may contain abbreviations or verbiage that are unfamiliar. It may appear blunt or direct. Medical documents are intended to carry relevant information, facts as evident, and the clinical opinion of the practitioner. Sebastian Hannon is a 89 y.o. male who has been referred here by Dr. Adilene Weinberg for further evaluation and recommendation of systemic therapy for metastatic melanoma Chief Complaint Patient presents with Melanoma Clearance for day 1, cycle 1 of Nivolumab-Relatlimab -rmbw History of Present Illness: Current Treatment: nivo/relatlimab (C1, 05/21/25) Interval History Pt presents for evaluation prior to C1D1 opdualag. He admits to ELIZABETH but is still able to perform ADLs without issues. He can drive him locally. Overall, Sebastian Hannon denies fever, chills, night sweats, headaches, vision change, hearing loss, dysphagia, cough, shortness of breath, chest pain, palpitations, nausea, vomiting, diarrhea, constipation, abdominal pain, melena, hematochezia, new/suspicious cutaneous lesions, rash, urination pattern change, hematuria, myalgia, muscle weakness, arthralgia, or mood change. No recent hospitalizations or ED visits. Denies changes in HPI, PMH, PSH, ROS, except as noted above. Patient has a strong history of cardiac disease with Afib/flutter, ASHD, ischemic cardiomyopathy, pulmonary HTN, and rheurmatoid arthritis. He reports that his last echocardiogram was six months ago at [facility]. He was seen by Dr. Dylon Kate on 04/30/25 for his routine exam. He has noted: Currently in NYHA class II symptoms and mild bilateral lower extremity edema. He had refilled furosemide 60 mg daily. For heart failure and improved ejection fraction, continue spironolactone, losartan and metoprolol succinate. Also, he had noted that patient has no contraindication for melanoma therapy. Patient has a pacer/defibrillator that is not compatible with MRI. 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 Patient had declined adjuvant treatment due to rheumatoid arthritis treatment. In March 2025, patient was seen by dermatology due to a growing lesion on the upper back. The lesion was biopsied on 03/28/25 and positive for pT3a melanoma. He was referred to Dr. Adilene Weinberg who had ordered a PET scan which was completed on 04/18/25. The scan showed multiple hypermetabolic foci throughout. Patient has been referred here to be with his daughter due to possible systemic therapy. 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 Skin, right scalp, long stitch lateral at 9 o'clock and short stitch superior at 12 o'clock, wide local excision: ? Melanoma, see synoptic report. ? 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 B. Node, sentinel lymph node #1, right intraparotid: ? Melanoma, metastatic to 1 of 1 lymph node (s) (10/04). ? Tumor deposit size: 0.75 mm. ? Location: subcapsular. ? Extracapsular extension: not identified. C. Node, sentinel lymph node #2, right intraparotid: ? Melanoma, metastatic to 1 of 1 lymph node (s) (10/04). ? Tumor deposit size: 0.90 mm. ? Location: subcapsular. ? Extracapsular extension: not identified. 12/2023 - Cancer Staged T2aN2a Stage IIIA 12/17/2023 Other Local oncologist visit: decision against adjuvant immunotherapy for 1 year due to his advanced age and concern for toxicity given his known rheumatoid arthritis. Was followed on surveillance 03/28/2025 Pathology Case: [id number] @ [facility] FINAL DIAGNOSIS 3 SLIDES, [facility], #[id number] (BX: 03/28/2025) ([facility]- Dr. Renee Roque) SKIN, LEFT INFERIOR MEDIAL UPPER BACK, SHAVE BIOPSY: MALIGNANT MELANOMA, BRESLOW THICKNESS AT LEAST 3.5 MM, PRESENT ON THE DEEP AND PERIPHERAL MARGIN, SEE NOTE. MELANOMA OF THE SKIN: Biopsy MELANOMA OF THE SKIN: BIOPSY - All Specimens 8th Edition - Protocol posted: 12/24/2021 SPECIMEN Procedure: Biopsy, shave Specimen Laterality: Left TUMOR Tumor Site: Skin of trunk: Left inferior medial upper back Histologic Type: Nodular melanoma Maximum Tumor (Breslow) Thickness (Millimeters): At least: 3.5 mm : Broadly transected on the deep margin. Ulceration: Not identified Anatomic (Ho) Level: At least level: IV : Broadly transected on the deep margin. Mitotic Rate: 3 mitoses per mm2 Microsatellite(s): Not identified Lymphovascular Invasion: Not identified Neurotropism: Not identified Tumor-Infiltrating Lymphocytes: Present, nonbrisk Tumor Regression: Not identified MARGINS: Margin Status for Invasive Melanoma: Invasive melanoma present at margin Margin(s) Involved by Invasive Melanoma: Peripheral Margin(s) Involved by Invasive Melanoma: Deep Margin Status for Melanoma in situ: All margins negative for melanoma in situ PATHOLOGIC STAGE CLASSIFICATION (pTNM, AJCC 8th Edition): pT Category: pT3a 04/18/2025 Imaging PET/CT Skull Base to Mid Thigh Impression Development of numerous hypermetabolic foci throughout the head, neck, chest, abdomen and pelvis and liver. Metastatic focus in the junction between the left ethmoid and sphenoid sinus. Metastatic focus in the right preauricular region and in the right upper jugular lymph nodes. Hypermetabolic metastatic focus in the left tongue base region. Hypermetabolic metastatic focus right parasternal and right paravertebral region. 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 Hypermetabolic focus in the left retroperitoneal region adjacent to the iliac bone. Hypermetabolic metastatic focus in the presacral region. These are regions are new compared to the prior PET/CT imaging 06/30/2024 05/10/2025 - Cancer Staged Stage IV metastatic melanoma. 05/10/2025 Other Component Ref Range & Units (hover) 05/10/25 1130 HLA ALLELE 1 A*11:01 HLA ALLELE 2 A*24:02 HLA INTERPRETATION NEGATIVE for A*02:01 05/21/2025 - Immunotherapy Nivolumab/relatlimab (Opdualag) Q4W 05/21/25 C1D1 05/21/2025 - Research Study Participant [facility] [id number] [facility] Malignant Melanoma Tissue Bank 05/21/25 consent signed; lab draw for C1D1 Opdualag and will need another draw at C2D1 Patient Active Problem List Diagnosis Myocardiopathy Melanoma of scalp Medical/Surgical History: Past Medical History: Diagnosis Date A-fib Acute on chronic systolic heart failure Anemia Arrhythmia ASHD (arteriosclerotic heart disease) Atrial flutter Carotid bruit Hypertension Ischemic cardiomyopathy Ischemic colitis 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 Labs reviewed and physical exam completed. I reviewed PET scans which show Prostate cancer 2020 radiation seeds Pulmonary hypertension Rheumatoid arthritis Sinus bradycardia Valvular heart disease Past Surgical History: Procedure Laterality Date PACEMAKER PLACEMENT 2020 and fibrillator PACEMAKER PLACEMENT 2010 HEART VALVE SURGERY 2007 valve replacement BACK SURGERY 1980 SKIN BIOPSY Family/Social History: Family History Problem Relation Age of Onset Cancer- Other Mother female cancer Myocardial Infarction Father Heart Failure Father Dementia Brother Parkinson Brother Heart Disease - Other Brother Other - Specify (skin biopsies) Brother Other - Specify (other) Brother Family Status Relation Name Status Mother Father Brother etelvina Brother Alive Isiah Alive No partnership data on file Social History Tobacco Use Smoking status: Never Smokeless tobacco: Never Vaping Use Vaping status: Never Used Substance Use Topics Alcohol use: Not Currently Drug use: Never Medications/Allergies: Current Outpatient Medications Medication Sig Alfuzosin HCl 10 MG Tab SR 24 HR Take 1 tablet by mouth daily. amLODIPine 2.5 MG tablet Take 1 tablet by mouth daily. atorvastatin 40 MG Tab tablet Take 1 tablet by mouth daily. Calcium 500-125 MG-UNIT Tab Take 1 tablet by mouth daily. Cholecalciferol (VITAMIN D) 4000 Units capsule Take 1 capsule by mouth every other day. Cyanocobalamin (VITAMIN B 12 PO) Place 1,000 mcg under tongue daily. Ferrous Sulfate (IRON) 325 (65 Fe) MG Tab Take 1 tablet by mouth daily. Fexofenadine (Nikunj Allergy) 180 MG tablet Take 1 tablet by mouth daily. Finasteride 5 MG tablet Take 1 tablet by mouth daily every morning. Furosemide (LASIX PO) Take 60 mg by mouth daily. hydroxychloroquine 200 MG Tab tablet Take 1 tablet by mouth 2 times daily. losartan 50 MG Tab tablet Take 1 tablet by mouth daily. metoprolol succinate 25 MG tablet XL Take 50 mg by mouth 2 times daily. (Patient taking differently: Take 3 tablets by mouth daily.) nitroGLYCERIN 0.[address] 1 tablet under tongue every 5 minutes as needed for Chest pain. max = 3 doses. If CP persists after 1st dose, call 911 Spironolactone 25 MG tablet Take 1 tablet by mouth daily every morning. warfarin 5 MG tablet Take 1.5 tablets by mouth daily. Allergies Allergen Reactions Latex Itching Penicillins Review of systems: A 14 point review of systems was performed with the patient at today's patient and is negative except for those items mentioned in the interval history and those items mentioned below as well as in the nursing documentation review of systems. Fatigue: Fatigue relieved by rest Nausea: Absent or within normal limits Vomiting: Absent or within normal limits Anorexia: Absent or within normal limits Diarrhea: Increase of less than 4 stools per day over baseline OR mild increase in ostomy output compared to baseline Constipation: Occasional or intermittent symptoms OR occasional use of stool softeners, laxatives, dietary modification, or enema Peripheral Motor Neuropathy: Absent or within normal limits Depression: Mild depressive symptoms Dyspnea: Shortness of breath with moderate exertion Rash Maculo-Papular: Absent or within normal limits Palmar-Plantar Erythrodysesthesia Syndrome: Absent or within normal limits Pain: Absent or within normal limits Fever: Absent or within normal limits Localized Edema: Localized to dependent areas, no disability or functional impairment Physical Exam: Vital signs: Blood pressure 134/63, pulse 73, temperature 98 F (36.7 C), temperature source Infrared, resp. rate 12, height 1.778 m (5' 10 ), weight 71.9 kg (158 lb 8 oz), SpO2 97%. ECOG = 1 GENERAL APPEARANCE 89 y.o. appears his stated age. The patient is alert and oriented x3. Eyes Pupils equal, round, reactive to light. Extraocular movements are intact. No scleral icterus. Ears, Nose, Mouth/throat Mucous membranes moist, no mucositis or thrush. Teeth in a good state of hygiene. Neck is supple. No thyromegaly LUNGS Clear to auscultation bilaterally. No wheezes, rales or rhonchi. CARDIAC S1, S2 normal. Rate and rhythm regular. No murmur, or rub. No cyanosis, clubbing, or peripheral edema. GI Abdomen is soft, nontender, nondistended, positive bowel sounds. No palpable hepatosplenomegaly. No peritoneal signs. Musculoskeletal Muscle strength 5/5 in all the extremities and symmetric. No focal neurological deficit. Neurological exam No focal neurological deficit. Skin Skin is warm, dry, and not diaphoretic. No new rash or lesion noted. No change since the last visit (mid upper back red spot from the excised melanoma lesion. Skin redness in the left lower leg without pain or warmth. Bilateral cheeks with small round redness approximately a quarter size which appears to be from the sun. He was outside on the porch yesterday. Skin is intact). Psychiatric Not in acute distress, answering the questions appropriately. Lymph nodes: No cervical, supraclavicular, axillary or inguinal adenopathy Laboratory and radiology review: Results for orders placed or performed in visit on 05/21/25 COMPREHENSIVE METABOLIC PANEL Result Value Ref Range Sodium 141 135 - 145 mmol/L Potassium 3.7 3.5 - 5.0 mmol/L Chloride 105 98 - 108 mmol/L BUN 27 (H) 7 - 25 mg/dL Creatinine 1.67 (H) 0.70 - 1.30 mg/dL Glucose 111 Nonfastin-179 mg/dL; Fastin-99 mg/dL Bilirubin Total 0.7 <1.5 mg/dL Albumin 4.4 3.5 - 5.0 g/dL Total Protein 6.9 6.4 - 8.3 g/dL AST 19 10 - 39 U/L ALP 93 32 - 126 U/L Calcium 9.7 8.6 - 10.5 mg/dL CO2 29 21 - 31 mmol/L ALT 19 10 - 52 U/L Bun/Crea Ratio 16 Osmolality (Calculated) 300 278 - 305 mOsm/kg Anion Gap 11 7 - 17 mmol/L eGFR, CKD-EPI, Male 39 (L) >=60 mL/min/1.73m2 LACTATE DEHYDROGENASE Result Value Ref Range LD Total 235 (H) 100 - 190 U/L T4 FREE Result Value Ref Range Free T4 1.28 0.89 - 1.76 ng/dL TSH Result Value Ref Range TSH 0.959 0.550 - 4.780 uIU/mL CBC AND ELECTRONIC DIFF Result Value Ref Range WBC Count 6.02 3.73 - 10.10 K/uL RBC Count 2.88 (L) 4.38 - 5.83 M/uL Hemoglobin 8.9 (L) 13.4 - 16.8 g/dL Hematocrit 28.1 (L) 39.6 - 48.8 % Mean Cell Volume 97.6 (H) 79.0 - 94.5 fL Mean Cell Hgb 30.9 26.1 - 33.3 pg Mean Cell Hgb Conc 31.7 (L) 31.9 - 36.5 g/dL RBC Distribution 13.1 10.9 - 14.3 % Platelet Count 155 146 - 337 K/uL Mean Platelet Volume 10.1 8.7 - 12.3 fL DIFF STATUS Electronic Differential Segs + Bands Auto 74.2 % Immature Grans % 0.5 % Lymphocyte % Auto 12.6 % Monocyte % Auto 11.0 % Eosinophil % Auto 1.2 % Basophil % Auto 0.5 % Nucleated RBC 0.0 <=0.2 /100 WBC Segs + Bands,Absolute Auto 4.47 1.57 - 6.19 K/uL Immature Grans Absolute <0.04 <=0.07 K/uL Abs Lymph Auto 0.76 (L) 0.83 - 3.57 K/uL Abs [place] Auto 0.66 0.24 - 0.93 K/uL Abs Eos Auto 0.07 0.00 - 0.48 K/uL Abs Baso Auto <0.04 0.00 - 0.09 K/uL Staging scans: CT head (05/11/25) - images personally reviewed IMPRESSION: 1. Redemonstration of focal lesions involving the left sphenoid/ethmoid sinuses as well as the right preauricular soft tissues concerning for metastases given hypermetabolic activity on prior PET/CT. 2. No evidence of cerebral metastasis. Assessment and Plan: Sebastian Hannon is a 89 y.o. male who has the diagnosis of stage IV metastatic melanoma. Patient Active Problem List Diagnosis Date Noted Melanoma of scalp 08/31/2023 Initial Presentation: Melanoma scalp 08/31/23, WLE/SLNBx-10/28/23 Recurrent: back biopsy 03/28/25 for pT3a Work-up: PET-04/18/25- metastatic disease Staging: IIIA, recurrence & stage IV- 03/28/25 Treatment: 05/10/25: Pt presents today for evaluation and establish care. Labs reviewed and physical exam completed. He will need to complete staging scan with CT head w/wo contrast. He has a non-MRI compatible pacer/defibrillator. His EKG from today showed an AV dual-paced rhythm with QTC at 513 mm. His 2022 melanoma pathology was BRAF negative; therefore, we are requesting for NGS testing on the 03/28/25 pathology with TMB. He had HLA A 02:01 lab draw today for possible clinical trial in the future. The treatment recommendation is immunotherapy. If the head CT is MIGUEL then he will proceed with nivolumab/relatlimab (Opdualag). If there is a SHELL MOLDER metastatic disease on the head CT scan then patient will be referred to radiation oncology and his systemic treatment will be ipilimumab/nivolumab. Educated patient and daughter on temporary and permanent side effects of immunotherapy such as colitis, pneumonitis, rash, joint body aches, fever, chills, thyroiditis, hypophysitis, and type 1 DM. Discussed when patient should contact the office with side effects. There is a risk for myocarditis and possible . Patient and his daughter agree to the treatment plan. He has signed the medication assistance paperwork for both, Opdualag and ipi/nivo. Pending on the CT head result then we would submit the appropriate treatment for PA. Patient has chronic RA and is taking Plaquenil. We are referring patient to Dr. Desai for evaluation of RA management with immunotherapy. Chiqui Navarro RN, PCRM will contact the patient's daughter to discuss any home needs. 05/21/25: Pt presents for evaluation prior to C1D1 opdualag. Labs reviewed and physical exam completed. I discussed again the potential irAEs from the treatment (as discussed at the last visit). Pt is aware to contact our clinic if he were to experience symptoms such as persistent fatigue, rashes, diarrhea, dyspnea, chest pain etc. I advised pt to watch out for these symptoms especially in light of his poor cardiac function. Pt is ok to proceed w/ the treatment today. RTC in 4 weeks for C2 treatment with labs. Myocardiopathy 07/07/2019 Added automatically from request for surgery [id number] I've discussed and provided education in general the natural history and treatment approach for malignant melanoma Education: We have reviewed with the patient the importance of continuing with his monthly skin self-evaluations and educated him on how to perform these. He has verbalized understanding the importance of sun protection strategies including clothing, avoidance of the sun during peak hours, sunblock at least SPF 30, sunglasses, and hats. He should continue to follow up with dermatology per recommendation. We have reviewed the flu vaccine and adequate hand washing. Also, we've stressed the importance of continuing to work with his PCP on routine health care needs. RTC: 4 weeks for C2 treatment. Sebastian Hannon has verbalized understanding and in agreement with the treatment plan. He will contact our office if need to be seen sooner. All of patient's questions were answered to the best of my ability during this office visit. Written patient instructions from today visit given to patient. Documented by Qamar Vences, for Dr. Walsh on 05/21/25 3:39 PM. All medical record entries made by the Qamar Vences, were at my direction and personally dictated by me, Duglas Walsh. I have reviewed the chart and agree that the record accurately reflects my personal performance of the history, physical exam, assessment and plan. I have also personally directed, reviewed, and agree with the clinic progress note. I spent a total of 40 minutes face to face with this patient, including 35 minutes to primary counselor the patient about the treatment, tests results, and the diagnosis of cancer. Duglas Walsh M.D., Ph.D. [employer] Cutaneous oncology Division of Medical Oncology [facility] to Infusion Handoff Report S Patient coming from Exam to Infusion for treatment. B Clinic Nurse reviewed the following: Allergies yes Medications yes Vital Signs within treatment parameters yes Labs within treatment parameters yes Is patient accessed yes Verified the following are signed/documented prior to patient discharge from clinic: Chemotherapy/Supportive Plans yes ECOG/Toxicity yes OK to Treat Yes Blood Product Infusion/Type & Cross N/A A Reviewed patient assessment and outstanding items. PIV / Port / PICC MD/MY notified of labs outside treatment parameters n/a If change to Chemo/Supportive Plans was bilingual counter sales retail notified n/a Report called to well logging operator mud analysis and report given to Yes If unable to call report SBAR Handoff completed n/a R Patient has AVS, completed check out, and discharged to infusion unit For questions please call: Lanie Hernandez RN Report given to MARQUITA Keating. Patient ambulatory, escorted with guest to panel edge painter for return appointments. documented in this encounter [facility] 05-21-2025 Instructions Lanie Hernandez RN - 05/21/2025 1:20 PM EDT Symptoms management at home: Please call the office at [phone] Itchy skin/rash: if mild then you may use over the counter medications with cortisone cream BID. If the cortisone cream does not stop the itchy/rash then you may add over the counter Zyrtec 10 mg once a day and Pepcid 20 mg twice a day. If rash or itchy skin continues after 2-3 days then please call our office. Diarrhea: you may take two tablets of imodium with the first episode followed by one tablet with subsequent loose stool. Please contact our office if you continue to have 4+ diarrhea a day or explosive diarrhea with abdominal cramps/nausea/vomiting/fever/chil ls. Fever/chills: if temperature >100.5 then you may take ibuprofen/tylenol as needed. If symptoms not resolved in 24 hours then please contact our office. Contacting Our Office For any questions or concerns related to your oncology care that need addressed before your next scheduled visit please call our clinic office at [phone]. For any symptom management please call our office to directly speak with a nurse and refrain from using [facility] MyChart, as we may need additional details regarding your symptoms. You may utilize [facility] MyChart for non-urgent questions. These messages are not checked on evenings, weekends, and holidays. We may ask you to send pictures of rashes or skin changes through [facility] MyChart. Clinic staff nurses are available to answer your call from 8:00 AM to 4:[address] any time sensitive calls before 4:00 PM, or as early in the day as possible, so we have enough time to meet your needs. Later calls may not be answered until the next business day. After business hours and on holidays and weekends, you may use the same phone number for concerns, you will be connected with a [facility] Nurse in our after hours call center. In case of a medical emergency please call 911. Our office fax number is [phone] Preparing for your next clinic visit Please make a list of non-urgent questions, concerns, and medication refills (that are prescribed by your oncologist) to bring with you to your next scheduled appointment. Please bring an updated list of medications you are currently taking including the dose and how often you are taking it. If you are completing outside labs and scans make sure to bring a CD with the images and any results, also ask that the outside facility faxes the results [phone] If you have been hospitalized and do not have a follow-up appointment with our office, please call to schedule at [phone]. Return to clinic : 06/21 at 1120 with labs prior, Tx after Provider: Dr Walsh Labs: Yes Scans: No Treatment: nivo-real C2 Referrals: No Return to clinic : 07/19 at 1100 with labs prior, Tx after Provider: Neida Espinosa NP Labs: Yes Scans: No Treatment: nivo-real C3 Referrals: No Return to clinic : 08/16 at 1100 with scans, labs prior, Tx after Provider: Dr Walsh Labs: Yes Scans: CT A/P, Chest, Neck with Pre-scan IVF of 500 ml NS over an hour Treatment: nivo-real C4 Referrals: Infusion Return to clinic : 09/13 at 1100 with labs prior, Tx after Provider: Dr Walsh Labs: Yes Scans: No Treatment: nivo-real C5 Referrals: No documented in this encounter [facility] 05-11-2025 History of Present illness Narrative PCRM received a call back from Tricia. States her father will start receiving chemo and she has questions. States her father will be moving in with her while he's doing his tx. States she and her spouse both work and pt will be home by himself and wanted to know what the options for pt are - should he need help. Provided pt education on home health needs and coverage allowed by INS. PCRM reached out to the PROPOSAL REP. PCRM contacted PROPOSAL REP- emailed link for [employer] benefits, however advised will have PROPOSAL REP contact her with details on how to apply- and cover all questions. Voiced appreciation - referral placed. documented in this encounter [facility] 05-10-2025 History of Present illness Narrative PCRM received a message from provider in clinic. New pt- daughter would like a call about home health services. EMR reviewed. PCRM contacted pt's daughter- This PCRM attempted contacting pt without success. Left voice message with direct number for call back. HIPAA maintained. Division of Medical Oncology Sylwia Navarro RN, BSN, PCR Office phone: [phone] Clinic Clinic Note to patient: The Cures Act makes medical notes like these available to patients in the interest of transparency. However, be advised this is a medical document. It is intended as [id number] communication. It is written in medical language and may contain abbreviations or verbiage that are unfamiliar. It may appear blunt or direct. Medical documents are intended to carry relevant information, facts as evident, and the clinical opinion of the practitioner. Sebastian's daughter returned the call, Chiqui was out of the office for the day. Tricia said she will await a call back tomorrow, and stated that Sebastian has some scans scheduled in the morning so a call after 9:30am would be best. CB: [phone] documented in this encounter [facility] 05-10-2025 History of Present illness Narrative Images from the original note were not included. NEW PATIENT: MEDICAL ONCOLOGY - [facility]IN [facility]OMA [facility] Note to patient: The Cures Act makes medical notes like these available to patients in the interest of transparency. However, be advised this is a medical document. It is intended as fckx-ef-hant communication. It is written in medical language and may contain abbreviations or verbiage that are unfamiliar. It may appear blunt or direct. Medical documents are intended to carry relevant information, facts as evident, and the clinical opinion of the practitioner. Sebastian Hannon is a 89 y.o. male who has been referred here by Dr. Adilene Weinberg for further evaluation and recommendation of systemic therapy for metastatic melanoma Chief Complaint Patient presents with New Patient Melanoma to forehead diagnosed 2022, recently had melanoma removed from back. PET scan done 04/18/2025. History of Present Illness: Patient has a strong history of cardiac disease with Afib/flutter, ASHD, ischemic cardiomyopathy, pulmonary HTN, and rheurmatoid arthritis. He reports that his last echocardiogram was six months ago at [facility]. He was seen by Dr. Dylon Kate on 04/30/25 for his routine exam. He has noted: Currently in NYHA class II symptoms and mild bilateral lower extremity edema. He had refilled furosemide 60 mg daily. For heart failure and improved ejection fraction, continue spironolactone, losartan and metoprolol succinate. Also, he had noted that patient has no contraindication for melanoma therapy. Patient has a pacer/defibrillator that is not compatible with MRI. Patient has requested to evaluate here for possible systemic therapy due to his daughter lives near [place]. He admits to ELIZABETH but is still able to perform ADLs without issues. He can drive him locally. Overall, Sebastian Hannon denies fever, chills, night sweats, headaches, vision change, hearing loss, dysphagia, cough, shortness of breath, chest pain, palpitations, nausea, vomiting, diarrhea, constipation, abdominal pain, melena, hematochezia, new/suspicious cutaneous lesions, rash, urination pattern change, hematuria, myalgia, muscle weakness, arthralgia, or mood change. No recent hospitalizations or ED visits. Denies changes in HPI, PMH, PSH, ROS, except as noted above. 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 Patient had declined adjuvant treatment due to rheumatoid arthritis treatment. In March 2025, patient was seen by dermatology due to a growing lesion on the upper back. The lesion was biopsied on 03/28/25 and positive for pT3a melanoma. He was referred to Dr. Adilene Weinberg who had ordered a PET scan which was completed on 04/18/25. The scan showed multiple hypermetabolic foci throughout. Patient has been referred here to be with his daughter due to possible systemic therapy. Oncology History Melanoma of scalp 08/31/2023 Initial Diagnosis Malignant Melanoma Scalp 08/31/2023 Pathology Path #: [id number] 09/23/2023 Other Negative for BRAF V600 10/28/2023 Pathology WLE/SLNBx requiring Right Parotidectomy OUTSIDE SLIDES: [id number] (10/28/2023); reviewed at [facility] on 05/08/25 (Case: [id number]) A. Skin, right scalp, long stitch lateral at 9 o'clock and short stitch superior at 12 o'clock, wide local excision: ? Melanoma, see synoptic report. ? 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 B. Node, sentinel lymph node #1, right intraparotid: ? Melanoma, metastatic to 1 of 1 lymph node (s) (10/04). ? Tumor deposit size: 0.75 mm. ? Location: subcapsular. ? Extracapsular extension: not identified. C. Node, sentinel lymph node #2, right intraparotid: ? Melanoma, metastatic to 1 of 1 lymph node (s) (10/04). ? Tumor deposit size: 0.90 mm. ? Location: subcapsular. ? Extracapsular extension: not identified. 12/2023 - Cancer Staged T2aN2a Stage IIIA 12/17/2023 Other Local oncologist visit: decision against adjuvant immunotherapy for 1 year due to his advanced age and concern for toxicity given his known rheumatoid arthritis. Was followed on surveillance 03/28/2025 Pathology Case: [id number] @ [facility] FINAL DIAGNOSIS 3 SLIDES, [facility], #[id number] (BX: 03/28/2025) ([facility]- Dr. Renee Roque) SKIN, LEFT INFERIOR MEDIAL UPPER BACK, SHAVE BIOPSY: MALIGNANT MELANOMA, BRESLOW THICKNESS AT LEAST 3.5 MM, PRESENT ON THE DEEP AND PERIPHERAL MARGIN, SEE NOTE. MELANOMA OF THE SKIN: Biopsy MELANOMA OF THE SKIN: BIOPSY - All Specimens 8th Edition - Protocol posted: 12/24/2021 SPECIMEN Procedure: Biopsy, shave Specimen Laterality: Left TUMOR Tumor Site: Skin of trunk: Left inferior medial upper back Histologic Type: Nodular melanoma Maximum Tumor (Breslow) Thickness (Millimeters): At least: 3.5 mm : Broadly transected on the deep margin. Ulceration: Not identified Anatomic (Ho) Level: At least level: IV : Broadly transected on the deep margin. Mitotic Rate: 3 mitoses per mm2 Microsatellite(s): Not identified Lymphovascular Invasion: Not identified Neurotropism: Not identified Tumor-Infiltrating Lymphocytes: Present, nonbrisk Tumor Regression: Not identified MARGINS: Margin Status for Invasive Melanoma: Invasive melanoma present at margin Margin(s) Involved by Invasive Melanoma: Peripheral Margin(s) Involved by Invasive Melanoma: Deep Margin Status for Melanoma in situ: All margins negative for melanoma in situ PATHOLOGIC STAGE CLASSIFICATION (pTNM, AJCC 8th Edition): pT Category: pT3a 04/18/2025 Imaging PET/CT Skull Base to Mid Thigh Impression Development of numerous hypermetabolic foci throughout the head, neck, chest, abdomen and pelvis and liver. Metastatic focus in the junction between the left ethmoid and sphenoid sinus. Metastatic focus in the right preauricular region and in the right upper jugular lymph nodes. Hypermetabolic metastatic focus in the left tongue base region. Hypermetabolic metastatic focus right parasternal and right paravertebral region. 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 Hypermetabolic focus in the left retroperitoneal region adjacent to the iliac bone. Hypermetabolic metastatic focus in the presacral region. These are regions are new compared to the prior PET/CT imaging 06/30/2024 05/10/2025 - Cancer Staged Stage IV metastatic melanoma. Patient Active Problem List Diagnosis Myocardiopathy Melanoma of scalp Medical/Surgical History: Past Medical History: Diagnosis Date A-fib Acute on chronic systolic heart failure Arrhythmia ASHD (arteriosclerotic heart disease) Atrial flutter Carotid bruit Hypertension Ischemic cardiomyopathy Ischemic colitis Melanoma Prostate cancer Pulmonary hypertension Rheumatoid arthritis Sinus bradycardia Valvular heart disease Past Surgical History: Procedure Laterality Date PACEMAKER PLACEMENT 2020 BACK SURGERY 1980 HEART VALVE SURGERY valve replacement Family/Social History: Family History Problem Relation Age of Onset Cancer- Other Mother female cancer Heart Failure Father Family Status Relation Name Status Mother Father No partnership data on file Social History Tobacco Use Smoking status: Never Smokeless tobacco: Never Vaping Use Vaping status: Never Used Substance Use Topics Alcohol use: Not Currently Drug use: Never Medications/Allergies: Current Outpatient Medications Medication Sig Alfuzosin HCl 10 MG Tab SR 24 HR Take 1 tablet by mouth daily. amLODIPine 2.5 MG tablet Take 1 tablet by mouth daily. atorvastatin 40 MG Tab tablet Take 1 tablet by mouth daily. Calcium 500-125 MG-UNIT Tab Take 1 tablet by mouth daily. Cholecalciferol (VITAMIN D) 4000 Units capsule Take 1 capsule by mouth every other day. Cyanocobalamin (VITAMIN B 12 PO) Place 1,000 mcg under tongue daily. Ferrous Sulfate (IRON) 325 (65 Fe) MG Tab Take 1 tablet by mouth daily. Fexofenadine (Nikunj Allergy) 180 MG tablet Take 1 tablet by mouth daily. Finasteride 5 MG tablet Take 1 tablet by mouth daily every morning. Furosemide (LASIX PO) Take 60 mg by mouth daily. hydroxychloroquine 200 MG Tab tablet Take 1 tablet by mouth 2 times daily. losartan 50 MG Tab tablet Take 1 tablet by mouth daily. metoprolol succinate 25 MG tablet XL Take 50 mg by mouth 2 times daily. (Patient taking differently: Take 3 tablets by mouth daily.) nitroGLYCERIN 0.[address] 1 tablet under tongue every 5 minutes as needed for Chest pain. max = 3 doses. If CP persists after 1st dose, call 911 Spironolactone 25 MG tablet Take 1 tablet by mouth daily every morning. warfarin 5 MG tablet Take 1.5 tablets by mouth daily. AMIOdarone 200 MG Tab Take 1 tablet by mouth daily. (Patient not taking: Reported on 05/10/2025) Allergies Allergen Reactions Latex Itching Penicillins Review of systems: A 14 point review of systems was performed with the patient at today's patient and is negative except for those items mentioned in the interval history and those items mentioned below as well as in the nursing documentation review of systems. Fatigue: Fatigue relieved by rest Nausea: Absent or within normal limits Vomiting: Absent or within normal limits Anorexia: Absent or within normal limits Diarrhea: Absent or within normal limits Constipation: Absent or within normal limits Peripheral Motor Neuropathy: Asymptomatic OR clinical or diagnostic observations only (numbness in left arm at times) Depression: Mild depressive symptoms Dyspnea: Shortness of breath with minimal exertion OR limiting instrumental ADL Rash Maculo-Papular: Macules/papules covering less than 10% BSA with or without symptoms (e.g., pruritus, burning, tightness) (rash on left leg) Palmar-Plantar Erythrodysesthesia Syndrome: Absent or within normal limits Pain: Absent or within normal limits Fever: Absent or within normal limits Localized Edema: Localized to dependent areas, no disability or functional impairment (lower extremities L>R) Physical Exam: Vital signs: Blood pressure 134/60, pulse 70, temperature 98 F (36.7 C), temperature source Temporal, resp. rate 16, height 1.778 m (5' 10 ), weight 73.1 kg (161 lb 1.6 oz), SpO2 97%. ECOG = 1 GENERAL APPEARANCE 89 y.o. appears his stated age. The patient is alert and oriented x3. Eyes Pupils equal, round, reactive to light. Extraocular movements are intact. No scleral icterus. Ears, Nose, Mouth/throat Mucous membranes moist, no mucositis or thrush. Teeth in a good state of hygiene. Neck is supple. No thyromegaly LUNGS Clear to auscultation bilaterally. No wheezes, rales or rhonchi. CARDIAC S1, S2 normal. Rate and rhythm regular. No murmur, or rub. No cyanosis, clubbing, or peripheral edema. GI Abdomen is soft, nontender, nondistended, positive bowel sounds. No palpable hepatosplenomegaly. No peritoneal signs. Musculoskeletal Muscle strength 5/5 in all the extremities and symmetric. No focal neurological deficit. Neurological exam No focal neurological deficit. Skin Skin is warm, dry, and not diaphoretic. No new rash or lesion noted. Mid upper back red spot from the excised melanoma lesion. Skin redness in the left lower leg without pain or warmth. Bilateral cheeks with small round redness approximately a quarter size which appears to be from the sun. He was outside on the porch yesterday. Skin is intact. Psychiatric Not in acute distress, answering the questions appropriately. Lymph nodes: No cervical, supraclavicular, axillary or inguinal adenopathy Laboratory and radiology review: Results for orders placed or performed in visit on 05/10/25 COMPREHENSIVE METABOLIC PANEL Result Value Ref Range Sodium 142 135 - 145 mmol/L Potassium 4.1 3.5 - 5.0 mmol/L Chloride 105 98 - 108 mmol/L BUN 23 7 - 25 mg/dL Creatinine 1.59 (H) 0.70 - 1.30 mg/dL Glucose 104 Nonfastin-179 mg/dL; Fastin-99 mg/dL Bilirubin Total 0.8 <1.5 mg/dL Albumin 4.3 3.5 - 5.0 g/dL Total Protein 6.7 6.4 - 8.3 g/dL AST 19 10 - 39 U/L ALP 87 32 - 126 U/L Calcium 9.7 8.6 - 10.5 mg/dL CO2 32 (H) 21 - 31 mmol/L ALT 20 10 - 52 U/L Bun/Crea Ratio 14 Osmolality (Calculated) 301 278 - 305 mOsm/kg Anion Gap 9 7 - 17 mmol/L eGFR, CKD-EPI, Male 42 (L) >=60 mL/min/1.73m2 LACTATE DEHYDROGENASE Result Value Ref Range LD Total 205 (H) 100 - 190 U/L CBC AND ELECTRONIC DIFF Result Value Ref Range WBC Count 4.70 3.73 - 10.10 K/uL RBC Count 2.87 (L) 4.38 - 5.83 M/uL Hemoglobin 8.9 (L) 13.4 - 16.8 g/dL Hematocrit 28.1 (L) 39.6 - 48.8 % Mean Cell Volume 97.9 (H) 79.0 - 94.5 fL Mean Cell Hgb 31.0 26.1 - 33.3 pg Mean Cell Hgb Conc 31.7 (L) 31.9 - 36.5 g/dL RBC Distribution 13.2 10.9 - 14.3 % Platelet Count 142 (L) 146 - 337 K/uL Mean Platelet Volume 9.8 8.7 - 12.3 fL DIFF STATUS Electronic Differential Segs + Bands Auto 68.6 % Immature Grans % 0.4 % Lymphocyte % Auto 16.2 % Monocyte % Auto 11.9 % Eosinophil % Auto 2.3 % Basophil % Auto 0.6 % Nucleated RBC 0.0 <=0.2 /100 WBC Segs + Bands,Absolute Auto 3.22 1.57 - 6.19 K/uL Immature Grans Absolute <0.04 <=0.07 K/uL Abs Lymph Auto 0.76 (L) 0.83 - 3.57 K/uL Abs [place] Auto 0.56 0.24 - 0.93 K/uL Abs Eos Auto 0.11 0.00 - 0.48 K/uL Abs Baso Auto <0.04 0.00 - 0.09 K/uL Staging scans: Please refer to the Oncology History tab. Assessment and Plan: Sebastian Hannon is a 89 y.o. male who has the diagnosis of stage IV metastatic melanoma. Patient Active Problem List Diagnosis Date Noted Melanoma of scalp 08/31/2023 Initial Presentation: Melanoma scalp 08/31/23, WLE/SLNBx-10/28/23 Recurrent: back biopsy 03/28/25 for pT3a Work-up: PET-04/18/25- metastatic disease Staging: IIIA, recurrence & stage IV- 03/28/25 Treatment: 05/10/25: Pt presents today for evaluation and establish care. Labs reviewed and physical exam completed. He will need to complete staging scan with CT head w/wo contrast. He has a non-MRI compatible pacer/defibrillator. His EKG from today showed an AV dual-paced rhythm with QTC at 513 mm. His 2022 melanoma pathology was BRAF negative; therefore, we are requesting for NGS testing on the 03/28/25 pathology with TMB. He had HLA A 02:01 lab draw today for possible clinical trial in the future. The treatment recommendation is immunotherapy. If the head CT is MIGUEL then he will proceed with nivolumab/relatlimab (Opdualag). If there is a SHELL MOLDER metastatic disease on the head CT scan then patient will be referred to radiation oncology and his systemic treatment will be ipilimumab/nivolumab. Educated patient and daughter on temporary and permanent side effects of immunotherapy such as colitis, pneumonitis, rash, joint body aches, fever, chills, thyroiditis, hypophysitis, and type 1 DM. Discussed when patient should contact the office with side effects. There is a risk for myocarditis and possible . Patient and his daughter agree to the treatment plan. He has signed the medication assistance paperwork for both, Opdualag and ipi/nivo. Pending on the CT head result then we would submit the appropriate treatment for PA. Patient has chronic RA and is taking Plaquenil. We are referring patient to Dr. Desai for evaluation of RA management with immunotherapy. Chiqui Navarro RN, [facility] will contact the patient's daughter to discuss any home needs. Myocardiopathy 07/07/2019 Added automatically from request for surgery [id number] Previous records have been reviewed. I've discussed and provided education in general the natural history and treatment approach for malignant melanoma Education: We have reviewed with the patient the importance of continuing with his monthly skin self-evaluations and educated him on how to perform these. He has verbalized understanding the importance of sun protection strategies including clothing, avoidance of the sun during peak hours, sunblock at least SPF 30, sunglasses, and hats. He should continue to follow up with dermatology per recommendation. We have reviewed the flu vaccine and adequate hand washing. Also, we've stressed the importance of continuing to work with his PCP on routine health care needs. RTC: 2 weeks for evaluation of the first cycle of treatment. Sebastian Hannon has verbalized understanding and in agreement with the treatment plan. He will contact our office if need to be seen sooner. All of patient's questions were answered to the best of my ability during this office visit. Written patient instructions from today visit given to patient. Orders Placed This Encounter CT HEAD WITH AND WITHOUT CONTRAST TUMOR HOTSPOT MUTATION PANEL, REQUEST OTHER AP REQUEST HLA SINGLE LOCUS AMB REFERRAL TO IMMUNOTHERAPY MANAGEMENT CLINIC AMB REFERRAL TO PATHOLOGY ECG SURG PATH ADD ON (PATH HAS SPECIMEN) Oxana Espinosa, DNP, SKIDDER-TRACK WORKER Nurse Practitioner Melanoma & Other Cutaneous Malignancies [facility] We are committed to improving people's lives through personalized health I saw and evaluated the patient with Oxana Espinosa (MY). I have personally examined the pt, reviewed his recent scans, and developed his treatment plan. I provided a substantive portion of the care for this patient. I personally performed all aspects of the medical decision making for this encounter. I have reviewed and verified this documentation and it accurately reflects our care. Mr. Hannon is a 89 y/o male with h/o afib/flutter, ASHD, ischemic cardiomyopathy, pacemaker in place (incompatible with MRI), pulmonary HTN, CHF, and rheurmatoid arthritis, who was referred to the cutaneous med onc clinic here for an evaluation of recently diagnosed metastatic melanoma. Pt had h/o early-stage melanoma diagnosed in 2022, with recurrence on his back on 03/28/25 that was initially thought to be a stage IIIA disease. However, subsequent staging PET scan showed widespread metastatic disease involving liver, lymph nodes, and bones (as described in the PET scan report). Pt presents today to discuss treatment options. We have discussed at length with pt regarding his diagnosis of metastatic melanoma, its natural history, prognosis, and treatment options. We have recommended completing SHELL MOLDER staging scan as soon as possible to determine whether he has melanoma brain metastases, as that can impact his treatment options. We were made aware by his pacemaker's cae engineer that his pacemaker is not compatible with MRI scanner. Therefore, we will obtain staging CT head, knowing that the sensitivity for detecting intracranial metastases may be limited (particularly if the lesion sizes are small). We have discussed w/ the pt that we may recommend ipi/nivo if he has SHELL MOLDER metastases, whereas we may recommend the recently approved immunotherapy (nivo/relatlimab, or Opdualag) if he does not have SHELL MOLDER metastases. We have discussed the potential irAEs of the immunotherapy treatment, including hypophysitis, hypothyroidism, pneumonitis,colitis, hepatitis, and potential for rare irAEs such as myositis, myocarditis, myasthenia gravis etc. We have discussed that the risk of irAEs are higher with ipi/nivo (up to 40-50%), and lower with nivo/relatlimab (~22%) based on the published clinical studies. We have also discussed that though the risk of myocarditis is rare, if it were to occur, pt may suffer serious consequences given his already poor cardiac function, including . We have also discussed that without his treatment, his life expectancy will likely be < 6 months, or less if there is evidence of SHELL MOLDER mets. Pt and his daughter verbalized understanding of the pros vs cons of the treatment, and have decided to proceed with the recommended immunotherapy treatment regimen, depending on the result of his upcoming SHELL MOLDER staging scan. Pt has tentatively signed the pre-authorization paperwork for both regimens. We will await the result of the SHELL MOLDER staging scan before deciding which regimen to submit to his payer for approval. I agree with checking his HLA-A tissue type to help determine if he can qualify for potential trials here in the future, if he were to not respond well to the 1st line immunotherapy treatment. We have also counseled the patient on the need for sun-protective measures, including the use of mineral-based sunscreen w/ SPF > 30, and wearing hat/long-sleeves when out in the sun for a period of time. We have also recommended that the patient follows with coding machine operator q3-6 months for a total body skin exam as part of melanoma surveillance. Pt and his daughter verbalized understanding of the discussion today and are in agreement w/ the plan. We spent a total of 60 minutes face to face with this patient, including 45 minutes to primary counselor the patient about the treatment, tests results, and the diagnosis of cancer. Duglas Walsh M.D., Ph.D. [employer] Cutaneous oncology Division of Medical Oncology [facility] Called Dr Renee Judge's office [phone], to find out if implantable cardioverter defibrillator is MRI compatible. Jey Galvan at office must call [phone]. Called and spoke with Fouzia, was placed on brief hold while Fouzia called [employer]. Spoke with Michelle from [employer], the defibrillator is not MRI compatible due to RA lead per [facility], and capped lead also disqualifies patient for MRI. Advised Neida Espinosa, SKIDDER-TRACK WORKER. Patient daughter asked for referral to Social Work, ANGEL Florian to call daughter Card with defibrillator info handed back to patient. Patient ambulatory, escorted with daughter to panel edge painter for return appointments. documented in this encounter [facility] 05-10-2025 Instructions Lanie Hernandez RN - 05/10/2025 9:20 AM EDT Contacting Our Office For any questions or concerns related to your oncology care that need addressed before your next scheduled visit please call our clinic office at [phone]. For any symptom management please call our office to directly speak with a nurse and refrain from using [facility], as we may need additional details regarding your symptoms. You may utilize [facility] My[facility] for non-urgent questions. These messages are not checked on evenings, weekends, and holidays. We may ask you to send pictures of rashes or skin changes through [facility] [employer]. Clinic staff nurses are available to answer your call from 8:00 AM to 4:30 [address] any time sensitive calls before 4:00 PM, or as early in the day as possible, so we have enough time to meet your needs. Later calls may not be answered until the next business day. After business hours and on holidays and weekends, you may use the same phone number for concerns, you will be connected with a [facility] Nurse in our after hours call center. In case of a medical emergency please call 911. Our office fax number is [phone] Preparing for your next clinic visit Please make a list of non-urgent questions, concerns, and medication refills (that are prescribed by your oncologist) to bring with you to your next scheduled appointment. Please bring an updated list of medications you are currently taking including the dose and how often you are taking it. If you are completing outside labs and scans make sure to bring a CD with the images and any results, also ask that the outside facility faxes the results [phone] If you have been hospitalized and do not have a follow-up appointment with our office, please call to schedule at [phone]. Return to clinic : 1-2 weeks - after STAT CT Head Provider: Dr Walsh Labs: Yes Scans: STAT CT Head Treatment: Either ipi/nivo OR nivo/relat Referrals: Immunotoxicity clinic, Pathology The following attachments cannot be sent through Care Everywhere.Checkpoint Inhibitor Immunotherapy ([facility]) ([place])documented in this encounter [facility] 05-07-2025 Telephone encounter Note 7/16 PET report in [facility] Nominated 7/16 PET images in [place] as well as several other scans [facility] 05-07-2025 Miscellaneous Notes 7/16 PET report in [facility] Nominated 7/16 PET images in [place] as well as several other scans Patient's daughter, Tricia, called in about Sebastian's appointment this week. She wanted to confirm that the records we needed were received, specifically the PET. Relayed we should have everything we need at this point. CB: [phone] Records from [employer]. Sent to apps, clinical team and medical records. documented in this encounter [facility] 05-07-2025 Telephone encounter Note Patient's daughter, Tricia, called in about Sebastian's appointment this week. She wanted to confirm that the records we needed were received, specifically the PET. Relayed we should have everything we need at this point. CB: [phone] [facility] 05-01-2025 Telephone encounter Note Records from [employer]. Sent to apps, clinical team and medical records. [facility] 05-01-2025 Miscellaneous Notes Records from [employer]. Sent to apps, clinical team and medical records. documented in this encounter [facility] 04-30-2025 Note [place] [facility] - [facility] Subjective Sebastian Hannon is a 89 y.o. year old male patient here today for a 1 month follow Patient had recent device check. Per daughter patient had Melanoma removed. Which came back as metastatic, PET scan was positive for several different location. Daughter would like to know if this is what causing his heart problems. Daughter would like to know if it is going to be okay for him to take chemo due to the side effects and his heart condition. The medication he will be treated with is Opdivo. Daughter would like to know why Lasix has been canceled per starr in [place]. Patient denies chest pain, Patient complains of leg swelling, fatigue, bruising. Patient Active Problem List Diagnosis Atrial fibrillation [...] arthritis (CMS/HCC) Thrombocytopenia Cardiac resynchronization therapy defibrillator ([employer]EL[employer] PROJECT MANAGER-D) in place Pulmonary heart disease, unspecified (CMS/HCC) 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) Pulmonary HTN (CMS/HCC) Melanoma of back (CMS/HCC) Family History Problem Relation Name Age [...] [OLGUIN to LAD, saphenous vein graft to [id number] and 2nd obtuse marginal branch, saphenous venous [...] right heart catheterization on 03/01/2025 that showed moderate-severe elevation of left-sided filling pressures with moderate pulmonary hypertension. There was large V waves noted on the pulmonary capillary wedge pressure tracing. His Lasix was increased to 40 mg twice daily. Follow-up BMP showed worsening of the renal function. At visit of 03/14/2025 I reduced furosemide to 60 mg daily and stopped amlodipine 2.5 mg daily to avoid hypotension and also to exclude amlodipine as a causative agent of lower extremity edema. Today he reports that he has mild shortness of breath on exertion NYHA class II symptoms. He has mild bilateral lower extremity edema. Prior duplex ruled out DVT. His blood pressure has been elevated. Today in the office 158/62. He was recently diagnosed with metastatic melanoma and is being considered for immunotherapy. Review of Systems Cardiovascular: Positive for dyspnea on exertion and leg swelling. Respiratory: Positive for shortness of breath. Hematologic/Lymphatic: Bruises/bleeds easily. Skin: Positive for color change. Neurological: Positive for dizziness and light-headedness. Objective Visit Vitals BP 158/62 (BP Location: Left arm, Patient Position: Sitting) Pulse 61 Ht 1.778 m (5' 10 ) Wt 72.6 kg (160 lb) SpO2 98% BMI 22.96 kg/m??? Smoking Status Former BSA 1.89 m??? Physical Exam Constitutional: Appearance: He is well-developed. He is not ill-appearing. HENT: Head: Normocephalic and atraumatic. Nose: Nose normal. Eyes: General: No scleral icterus. Pupils: Pupils are equal, round, and reactive to light. (more content not included)... [facility] 04-17-2025 History of Present illness Narrative Assessment and Plan: Sebastian Hannon is a 89 y.o. male with a newly diagnosed melanoma of the back that is at least 3.5 mm thick, cT3a. I spent a long time discussing this diagnosis with the patient and his daughter including the standard guideline recommendations, which would be wide local excision with 2 cm margins and sentinel lymph node biopsy, and the special considerations giving his age and medical comorbidities. He has multiple contraindications to systemic immunotherapy and if we performed sentinel lymph node biopsy for this procedure and it was positive I do not believe he would pursue treatment. He is already going through imaging surveillance with Dr. Weinberg in [place] and has a PET scan scheduled for this week. I believe the general anesthesia at his age carries a significant risk for cognitive and/or functional decline or and would be of limited clinical benefit and so have offered that we could forego sentinel lymph node biopsy given all of these considerations. The patient and his daughter understand and agree. We will proceed with wide local excision only to treat this tumor he will continue surveillance with Dr. Weinberg in [place]. Regarding his excision, I described that the guidelines recommend a 2 cm margin but that we may consider a smaller margin in an effort to minimize the complexity of the surgery and any risk for wound complications postoperatively. He takes Coumadin and I would like him to hold this for a week prior to surgery. The daughter understands all of these considerations and is in agreement with the plan. He will see his sport internship on April 30 and we will plan for surgery at [facility] on May 07. I spent 60 minutes in the professional and overall care of this patient. 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 History of RA, off treatment with reasonable symptoms. He lives independently but has limited mobility. All other systems have been reviewed and are negative except as noted in the HPI. I personally reviewed all necessary laboratory results, pathology reports, and radiologic images for this patient. 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 Social History He reports that he has never smoked. He has never used smokeless tobacco. He reports that he does not drink alcohol and does not use drugs. Medications Current Outpatient Medications Medication Instructions alfuzosin (UROXATRAL) 10 mg, Daily amLODIPine (NORVASC) 2.5 mg, oral, Daily atorvastatin (LIPITOR) 40 mg, Daily before breakfast calcium carbonate-vitamin D3 500 mg-3.125 mcg (125 unit) tablet tablet 1 tablet, Daily RT cholecalciferol (Vitamin D-3) 5,000 Units tablet Take 1 tablet every other day by oral route. ferrous sulfate 65 mg, Daily RT finasteride (PROSCAR) 5 mg, Daily furosemide (Lasix) 20 mg tablet Take by mouth. hydroxychloroquine (Plaquenil) 200 mg tablet TAKE 1 TABLET BY MOUTH ONCE DAILY ALTERNATING WITH 1 TABLET TWICE DAILY WITH FOOD. CONFIRM WITH EYE DOCTOR ON YEARLY EYE EXAM FOR MEDICATION TOXICITY. leflunomide (ARAVA) 20 mg, Every other day losartan (COZAAR) 50 mg, Daily RT metoprolol succinate XL (TOPROL-XL) 50 mg, Daily spironolactone (ALDACTONE) 25 mg, Daily traMADol (ULTRAM) 50 mg, oral, Every 6 hours PRN warfarin (Coumadin) 5 mg tablet TAKE 1 TO 1 & 1/2 (ONE & ONE-HALF) TABLETS BY MOUTH ONCE DAILY OR DIRECTED BY MEDICATION MANAGEMENT CLINIC Family History Family History[1] Allergies Latex and Penicillins Last Recorded Vitals There were no vitals taken for this visit. Physical Exam General: no acute distress, well-nourished, frail appearing Eyes: intact EOM, no scleral icterus ENT: hearing intact, no drainage Respiratory: symmetric chest rise, no cough Cardiovascular: intact distal pulses, no pitting edema Abdominal: Soft, nontender Musculoskeletal: no deformities, intact strength Integumentary: Healing biopsy site, no lymphadenopathy Neuro: no focal deficits, sensation intact Psych: normal mood and affect Relevant Results FINAL DIAGNOSIS 3 SLIDES, [facility], #[id number] (BX: 03/28/2025) SKIN, LEFT INFERIOR MEDIAL UPPER BACK, SHAVE BIOPSY: MALIGNANT MELANOMA, BRESLOW THICKNESS AT LEAST 3.5 MM, PRESENT ON THE DEEP AND PERIPHERAL MARGIN, SEE NOTE. Note: Microscopic examination reveals a specimen that extends into the dermis. There is serum crust and there is a proliferation of nested and single melanocytes along the dermal-epidermal junction and within the dermis. The melanocytes have moderately enlarged nuclei with moderate cytoplasm. They stain with antibodies against SOX-10 and PRAME. Electronically signed out by Donna Blanchard MD at 0827 EDT Case Summary Report MELANOMA OF THE SKIN: Biopsy 8th Edition - Protocol posted: 12/24/2021MELANOMA OF THE SKIN: BIOPSY - All Specimens SPECIMEN Procedure Biopsy, shave Specimen Laterality Left TUMOR Tumor Site Skin of trunk: Left inferior medial upper back Histologic Type Nodular melanoma Maximum Tumor (Breslow) Thickness (Millimeters) At least: 3.5 mm Broadly transected on the deep margin. Ulceration Not identified Anatomic (Ho) Level At least level: IV Broadly transected on the deep margin. Mitotic Rate 3 mitoses per mm2 Microsatellite(s) Not identified Lymphovascular Invasion Not identified Neurotropism Not identified Tumor-Infiltrating Lymphocytes Present, nonbrisk Tumor Regression Not identified MARGINS Margin Status for Invasive Melanoma Invasive melanoma present at margin Margin(s) Involved by Invasive Melanoma Peripheral Deep Margin Status for Melanoma in situ All margins negative for melanoma in situ PATHOLOGIC STAGE CLASSIFICATION (pTNM, AJCC 8th Edition) pT Category pT3a [1] No family history on file. documented in this encounter [facility] Work Phone: 03-14-2025 Note [place] [facility] - [facility] Subjective Sebastian Hannon is a 89 y.o. year old male patient here today for a follow S/P RHC. Patient states he feels dizzy when getting up patient states and [...] arthritis (CMS/HCC) Thrombocytopenia Cardiac resynchronization therapy defibrillator (WELFARE PROJECT MANAGER-D) in place Pulmonary heart disease, unspecified (CMS/HCC) [...] [OLGUIN to LAD, saphenous vein graft to [id number] and 2nd obtuse marginal branch, saphenous venous [...] right heart catheterization on 03/01/2025 that showed moderate-severe elevation of left-sided filling pressures with moderate [...] duplex ruled out DVT. He says increasing the furosemide led to an improvement in the lower [...] kg (163 lb) SpO2 99% BMI 23.39 kg/m??? Smoking Status Former BSA 1.91 m??? Physical Exam Constitutional: Appearance: He is well-developed. [...] Cervical back: Neck supple. Right lower le+ E (more content not included)... [facility] 03-01-2025 Note Patient: Sebastian Irizarry is Procedure Information Date/Time: 03/01/25 1030 Procedure: Right heart cath - PC APPROVED call daughter tricia Location: [facility] / [facility] (Cath) Providers: Dylon Kate MD Clinical information reviewed: Allergies Meds Physical Exam Airway Mallampati: III TM distance: >3 FB Cardiovascular Rhythm: regular Rate: normal Dental Pulmonary Breath sounds clear to auscultation Abdominal Abdomen: soft Anesthesia Plan ASA 3 (Moderate sedation) Anesthetic plan and risks discussed with patient. Use of blood products discussed with patient who consented to blood products. Plan discussed with attending and fellow. Additional Equipment Requests [facility] 01-24-2025 Note [facility] - [facility] Subjective Sebastian Hannon is a 89 y.o. year old male patient being seen per Jacki Gilbert's request. Patient states he is feeling ok. Patient denies chest pain, palpitations. Patient states he has left leg swelling, bruising/bleeding/skin discoloration. Patient Active Problem List Diagnosis Atrial fibrillation [...] arthritis (CMS/HCC) Thrombocytopenia Cardiac resynchronization therapy defibrillator (WELFARE PROJECT MANAGER-D) in place Pulmonary heart disease, unspecified (CMS/HCC) Family History Problem Relation Name Age of Onset Other (malignant neoplastic) Mother Coronary artery disease Father Social History Tobacco Use Smoking status: Former Types: Cigars Passive exposure: Past Smokeless tobacco: Never Substance Use Topics Alcohol use: Not Currently Drug use: Never HPI Sebastian is seen in follow-up. This is the first time I am meeting him. He is a 89-year-old man who was recently evaluated in cardiology clinic. He follows regularly with our group. The reason I am seeing him today is heart failure with pulmonary hypertension. 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 He has a history of coronary artery disease status post bypass surgery in the past [OLGUIN to LAD, saphenous vein graft to [id number] and 2nd obtuse marginal branch, saphenous venous graft to PDA]. In 2019 he underwent stenting of the LAD. His OLGUIN to LAD was not found to be atretic. 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 he has been having evidence of severe pulmonary hypertension by echocardiography on repeated testing. Today he reports that he has mild shortness of breath on exertion NYHA class II symptoms. He has bilateral lower extremity edema worse on the left. Recent duplex ruled out DVT. Recently his furosemide was increased but he did not have any response to that. Review of Systems Cardiovascular: Positive for dyspnea on exertion and leg swelling. Hematologic/Lymphatic: Bruises/bleeds easily. Skin: Positive for color change. Objective Visit Vitals BP 137/62 (BP Location: Right arm, Patient Position: Sitting) Pulse 63 Ht 1.778 m (5' 10 ) Wt 75.8 kg (167 lb) SpO2 99% BMI 23.96 kg/m??? Smoking Status Former BSA 1.93 m??? Physical Exam Constitutional: Appearance: He is well-developed. [...] Reactions Latex Hives Penicillins Other Spironolactone Dizziness Medications Current Outpatient Medications: alfuzosin (Uroxatral) 10 mg 24 hr tablet, Take 1 tablet by mouth in the morning., Disp: , Rfl: amLODIPine (Norvasc) 2.5 m (more content not included)... [facility] 01-23-2025 Evaluation note Diagnosis Onset Date Resolution Atrial fibrillation acute January 23, 2025 9:00am Cellulitis of leg without foot, left deleted January 23, 2025 9:00am Edema of left lower extremity deleted January 23, 2025 9:00am Atrial fibrillation acute March 21, 2025 8:52am Cardiac pacemaker acute March 212024 8:52am Chronic venous insufficiency acute March 21, 2025 8:52am Heart failure with improved ejection fraction (HFimpEF) acute March 21, 2025 8:52am History of prostate cancer acute March 21, 2025 8:52am HTN (hypertension) acute March 042024 8:52am Hypercholesterolemia acute March 21, 2025 8:52am Hyperlipidemia acute March 21, 2025 8:52am Ischemic cardiomyopathy acute J une 2024 8:52am Melanoma of head acute March 8:52am Pulmonary hypertension acute Ju ne 2024 8:52am Rheumatoid arthritis acute March 21, 2025 8:52am [facility] Work Phone: 1(200) 687-444704-04-2025 Evaluation note* Diagnosis Onset Date Resolution Status Admit Date ASHD (arteriosclerotic heart disease) acute January 05, 2025 11:07am Atrial fibrillation acute January 05, 2025 11:07am Chronic venous insufficiency acute January 05, 2025 11:07am Ischemic cardiomyopathy acute A pril 2024 11:07am Subtherapeutic international normalized ratio (INR) acute January 11:07am Cellulitis of leg without fo ot, left deleted January 05, 2025 11:07am Edema of left lower extremity delete d January 05, 2025 11:07am Abnormal computerized axial tomography of liver acute January 10, 2 025 1:47pm Cardiac pacemaker acute January 102024 1:47pm Encounter for coordination o f complex care acute January 10, 2025 1:47pm History of prostate cancer acute January 10, 2025 1:47pm Melanoma of head acute January 1:47pm Rheumatoid arthritis acute Apri l 2024 1:47pm Atrial fibrillation acute January 16, 2025 9:54am Cellulitis of leg without fo ot, left deleted January 16, 2025 9:54am Edema of left lower extremity delete d January 16, 2025 9:54am Atrial fibrillation acute January 23, 2025 9:00am Cellulitis of leg without fo ot, left deleted January 23, 2025 9:00am Edema of left lower extremity delete d January 23, 2025 9:00am Atrial fibrillation acute March 21, 2025 8:52am Cardiac pacemaker acute March 212024 8:52am Chronic venous insufficiency acute March 21, 2025 8:52am Heart failure with improved ejection fraction (HFimpEF) acute March 21, 2025 8:52am History of prostate cancer acute March 21, 2025 8:52am HTN (hypertension) acute March 042024 8:52am Hypercholesterolemia acute March 21, 2025 8:52am Hyperlipidemia acute March 21, 2025 8:52am Ischemic cardiomyopathy acute J une 2024 8:52am Melanoma of head acute March 8:52am Pulmonary hypertension acute Ju 2024 8:52am Rheumatoid arthritis acute March 21, 2025 8:52am [facility] Work Phone: 1(767) 505-466202-27-2025 NotePatient here for 6 mo follow up PAF, CAD, CHF, and hypertension. [...] pain. All other systems reviewed and are negative.[facility] 11-30-2024 [facility]Cardiovascular [facility] SUBJECTIVE Chief Complaint Patient presents with Congestive Heart Failure Atrial Fibrillation Sebastian Hannon is a 89 y.o. male here [...] Thrombocytopenia Cardiac resynchronization t (more content not included)...[facility]02-17-2025 Evaluation note* Diagnosis Onset Date Resolution Status Admit Date Allergic rhinitis acute 2024 8:58am ASHD (arteriosclerotic heart disease) acute November 20, 2 025 8:58am Atrial fibrillation acute 2024 8:58am Dermatitis, dyshidrotic acute F ebruary 2024 8:58am History of prostate cancer acute November 20, 2024 8:58am HTN (hypertension) acute 2024 8:58am Hypercholesterolemia acute 2024 8:58am Hyperlipidemia acute November 042024 8:58am Ischemic cardiomyopathy acute 2024 8:58am Melanoma of head acute November 20, 2024 8:58am Rheumatoid arthritis acute 2024 8:58am [facility] Work Phone: 1(636) 738-956202-17-2025 Evaluation note* Diagnosis Onset Date Resolution Status Admit Date Allergic rhinitis acute 2024 8:58am ASHD (arteriosclerotic heart disease) acute November 20, 2 025 8:58am Atrial fibrillation acute 2024 8:58am Dermatitis, dyshidrotic acute 2024 8:58am History of prostate cancer acute November 20, 2024 8:58am HTN (hypertension) acute 2024 8:58am Hypercholesterolemia acute 2024 8:58am Hyperlipidemia acute November 042024 8:58am Ischemic cardiomyopathy acute 2024 8:58am Melanoma of head acute November 20, 2024 8:58am Rheumatoid arthritis acute 2024 8:58am ASHD (arteriosclerotic heart disease) acute January 05, 2025 11:07am Atrial fibrillation acute January 05, 2025 11:07am Cellulitis of leg without fo ot, left acute January 05, 2025 11:07am Chronic venous insufficiency acute January 05, 2025 11:07am Edema of left lower extremity acute January 05, 2025 11:07am Ischemic cardiomyopathy acute A pril 2024 11:07am Subtherapeutic international normalized ratio (INR) acute January 11:07am Abnormal computerized axial tomography of liver acute January 10 025 1:47pm Cardiac pacemaker acute January 102024 1:47pm Encounter for coordination o f complex care acute January 10, 2025 1:47pm History of prostate cancer acute January 10, 2025 1:47pm Melanoma of head acute January 1:47pm Rheumatoid arthritis acute Apri l 2024 1:47pm [facility] Work Phone: 1(107) 361-256202-17-2025 Evaluation note* Diagnosis Onset Date Resolution Status Admit Date Allergic rhinitis acute y 2024 8:58am ASHD (arteriosclerotic heart disease) acute November 20 025 8:58am Atrial fibrillation acute annelise2024 8:58am Dermatitis, dyshidrotic acute F eb2024 8:58am History of prostate cancer acute November 20, 2024 8:58am HTN (hypertension) acute 2024 8:58am Hypercholesterolemia acute 2024 8:58am Hyperlipidemia acute November 042024 8:58am Ischemic cardiomyopathy acute F 2024 8:58am Melanoma of head acute November 20, 2024 8:58am Rheumatoid arthritis acute 2024 8:58am ASHD (arteriosclerotic heart disease) acute January 05, 2025 11:07am Atrial fibrillation acute January 05, 2025 11:07am Cellulitis of leg without fo ot, left acute January 05, 2025 11:07am Chronic venous insufficiency acute January 05, 2025 11:07am Edema of left lower extremity acute January 05, 2025 11:07am Ischemic cardiomyopathy acute A pril 2024 11:07am Subtherapeutic international normalized ratio (INR) acute January 11:07am Abnormal computerized axial tomography of liver acute Iram 9th, 2 025 1:47pm Cardiac pacemaker acute January 102024 1:47pm Encounter for coordination o f complex care acute January 10, 2025 1:47pm History of prostate cancer acute January 10, 2025 1:47pm Melanoma of head acute January 1:47pm Rheumatoid arthritis acute Apri l 2024 1:47pm Atrial fibrillation acute January 16, 2025 9:54am Cellulitis of leg without fo ot, left acute January 16, 2025 9:54am Edema of left lower extremity acute January 16, 2025 9:54am Atrial fibrillation acute January 23, 2025 9:00am Cellulitis of leg without fo ot, left acute January 23, 2025 9:00am Edema of left lower extremity acute January 23, 2025 9:00am [facility] Work Phone: 1(665) 572-690801-02-2025 Evaluation note* Diagnosis Onset Date Resolution Status Admit Date Abnormal computerized axial tomography of liver acute October 05, 2024 2:50pm Cardiac pacemaker acute October 05, 2024 2:50pm Encounter for coordination o f complex care acute October 05 2:50pm History of prostate cancer acute October 05, 2024 2:50pm Melanoma of head acute October 05, 2024 2:50pm Rheumatoid arthritis acute 2024 2:50pm [facility] Work Phone: 1(184) 502-666001-02-2025 Evaluation note* Diagnosis Onset Date Resolution Status [...] ASHD (arteriosclerotic heart disease) acute November 20, 2 025 8:58am Atrial fibrillation acute 2024 8:58am Dermatitis, dyshidrotic acute F ebruary 2024 8:58am History of prostate cancer acute November 20, 2024 8:58am HTN (hypertension) acute Februa ry 2024 8:58am Hypercholesterolemia acute Febr uary 2024 8:58am Hyperlipidemia acute November 042024 8:58am Ischemic cardiomyopathy acute F ebruary 2024 8:58am Melanoma of head acute November 20, 2024 8:58am Rheumatoid arthritis acute Febr uary 2024 8:58am [facility] Work Phone: 1(239) 341-994901-02-2025 [facility] [place] [address] Cancer Center Note Signed Patient: Sebastian Hannon MR#: [id number] : 1935 Acct:[id number] Age/Sex: 89 / M Type: DEP AMB Date of Service: 10/05/24 Copies to: Uma De Paz,DO~ Assessment & Plan A/P (1) [...] recurrence. The patient's daughter who lives in [place] will be available by phone consultationat the time of his follow-up. He does have capacity for decision-making. All questions were answered over this 60-minute initial consultation. 12/17/2023: Discussion of negative BRAF status and no evidence of SHELL MOLDER disease on contrast head CT from 11/29/2023. [...] Chemotherapy History of Present Illness HPI 10/05/2024: Sebastian is here with his daughter by telephone [...] directed. Moderate complexity 35 minute followup. 07/06/2024: Sebastian presents with his daughter for 3-week follow-up [...] PET/CT and discussion of continued observation. 06/21/2024: Sebastian is here with his son-in-law for 3-month [...] eyelid (he is scheduled to follow-up with [facility] ophthalmology in May 2025 for possible procedure [...] assist with memory of recommendations. Moderate complexity 46-vroxdxdewqgm-yw. 03/16/2024: Sebastian presents with his daughter for in person [...] to review exam and restaging ultrasound. 12/17/2023: Sebastian presents unaccompanied but his daughter is available [...] the deep margin. He was referred to [facility] head neck oncologic surgery. On 10/28/2023 [...] specimen and this will be requested from [facility]. Given his history of rheumatoid arthritis [...] at that time. She lives in the [place] area and will be available by [facility] for his follow- up appointment, hopefully [...] 2. Discussion of adjuvant options 11/24/[address] [facility]. Negative BRAF status. PET/CT negative for [...] sulfate (iron) 1 tab PO DAILY fexofenadine (Nikunj Hives) 180 mg PO DAILY furosemide 40 [...] and go over labs and extremity Ultrasound. [facility] Medical History Medical History Medicare annual wellness visit, subsequent Thrombocytopenia Ischemic cardiomyopathy Echo: [id number]%, RACHAEL, RV dilated, RVSP 72, bioprosthetic MV [...] MD DD/ 1451 Signed By: 10/06/24 1322 [facility]11-01-2024 History of Present illness Narrative * Elkin Holly MD - 2024 3:30 PM EDT ENT Outpatient Consultation Chief Complaint: Melanoma right superior forehead History Of Present Illness Sebastian Hannon is a 89 y.o. male referred [...] History Patient lives alone, daughter lives in [place] Family History Denies family history of melanoma [...] findings Elkin Holly MD [facility] Work Phone: 1(805) 728-678410-17-2024 Evaluation note* Diagnosis Onset Date Resolution Status [...] October 05, 2024 2:50pm Rheumatoid arthritis acute [place] annelise 2024 2:50pm [facility] Work Phone: 1(990) 977-461109-18-2024 Progress note Author Adilene Weinberg [facility] June 21, 2024 1:09pm Note Date/Time June 21, 2024 10:22am [facility] [place] [address] Cancer Center Note Signed Patient: Sebastian Hannon MR#: [id number] : 1935 Acct:[id number] Age/Sex: 88 / M Type: REG AMB Date of Service: 06/21/24 Copies to: Uma De Paz,DO~ Assessment & Plan A/P (1) [...] recurrence. The patient's daughter who lives in [place] will be available by phone consultationat the time of his follow-up. He does have capacity for decision-making. All questions were answered over this 60-minute initial consultation. 12/17/2023: Discussion of negative BRAF status and no evidence of SHELL MOLDER disease on contrast head CT from 11/29/2023. [...] Chemotherapy History of Present Illness HPI 06/21/2024: Sebastian is here with his son-in-law for 3-month [...] eyelid (he is scheduled to follow-up with [facility] ophthalmology in May 2025 for possible procedure [...] assist with memory of recommendations. Moderate complexity 58-sikuibiiqiqp-xd. 03/16/2024: Sebastian presents with his daughter for in person [...] to review exam and restaging ultrasound. 12/17/2023: Sebastian presents unaccompanied but his daughter is available [...] the deep margin. He was referred to [facility] head neck oncologic surgery. On 10/28/2023 [...] specimen and this will be requested from [facility]. Given his history of rheumatoid arthritis [...] at that time. She lives in the [facility] and will be available by [facility] for his follow-up appointment, hopefully within [...] 2. Discussion of adjuvant options 11/24/[address] [facility]. Negative BRAF status. PET/CT negative for distant metastatic disease, no disease noted on CT head. -- 12/17/2023: Decision against active therapy due to his known history of rheumatoid arthritis. Will follow with every 3-month surveillance. Intake Vitals/Pain Assessment 09/18/24 10:21 Height 5 ft 10 in Weight [...] sulfate (iron) 1 tab PO DAILY fexofenadine (Nikunj Hives) 180 mg PO DAILY furosemide 40 [...] go over CT scans. No newconcerns today. [facility] Medical History Medical History Thrombocytopenia Ischemic cardiomyopathy Echo: MMCY89-24%, RACHAEL, RV dilated, RVSP 72, bioprosthetic MV [...] H/O bilateral cataract extraction H/O cystoscopy (~2016) 2016, 2017 Family History Family History Brother Heart disease [...] <Electronically signed by MD Adilene Weinberg> 06/21/24 1001 [facility] Work Phone: 1(206) 182-678908-19-2024 Hospital Discharge instructions Patient Education 05/22/2024 09:19:11 [...] treatment? Where to find more information The [employer]: www.cancer.org [employer]: www.auanet.org Contact a health care [...] provider. Document Revised: 03/16/2022 Document Reviewed: 03/16/2022 [employer] Patient Education 2022 [employer]. Follow Up Care 05/17/2023 09:45:06 With:MOY ARRIAGA, Cristela Carbajal, URL Address: [facility] [address], [place] [address]- [phone] When: Unknown Comments:1 yr w/ PSA [facility] Sabiha 08-19-2024 NotePatient Education Oncology Prostate Cancer Screening [...] Where to find more information ? The [employer]: www.cancer.org ? [employer]: www.auanet.org Contact a health care [...] front of the rectum. (more content not included)...[facility]07-29-2024 Instructions* Patient Instructions* Caryl Ley MD - [...] , sooner if issues [facility] History of Present illness Narrative* Caryl Ley MD - 05/01/2024 9:00 AM EDT Pt is here today for a Dermachalasis evaluation States he had melanoma 6 months ago and the droopy eyelid is a result form taking the melanoma out,denies pain NEW patient A/P: Heavy upper eyelids H/o melanoma right forehead s/p SNLB + LN with melanoma Dr. Holly @ [facility] -->not getting immunotherapy yet; managed by Dr. Weinebrg H/o RA + pacemaker, afib; + coumadin [...] by others. I have seen and examined Sebastian Hannon. I have discussed the case and [...] is accurate and complete. [facility] History of Present illness Narrative* Debbie Alfaro MD - 01/17/2024 3:45 PM EDT History Of Present Illness Sebastian Hannon is a 88 y.o. 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 Debbie Alfaro MD Facial Plastic & Reconstructive Surgery Otolaryngology - Head & Neck Surgery documented in this [facility] Work Phone: 1(199) 766-510304-15-2024 History of Present illness Narrative* Elkin Holly MD - 01/17/2024 3:30 PM EDT ENT Outpatient Consultation Chief Complaint: Melanoma right superior forehead History Of Present Illness Sebastian Hannon is a 88 y.o. male referred [...] History Patient lives alone, daughter lives in [place] Family History Denies family history of melanoma [...] to contact Dr. Roque to discuss -Dr. Alfaro evaluated for possible management of right upper eyelid -Follow-up in 4-6 months. Earlier with any concern Elkin Holly MD documented in this [facility] Work Phone: 1(970) 839-142402-05-2024 History of Present illness Narrative* Elkin Holly MD - 11/08/2023 2:45 PM EST ENT Outpatient Consultation Chief Complaint: Melanoma right superior forehead History Of Present Illness Sebastian Hannon is a 88 y.o. 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] Post-op Diagnosis * 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 male who is having surgery for Malignant melanoma of forehead ([facility]) [C43.39]. The patient was seen in the [...] excision Other deep to fascia Elkin Holly [facility] Work Phone: 1(716) 756-595101-25-2024 Hospital Discharge instructions* Discharge Instructions* Naima Rodgers MD - 10/28/2023 12:13 PM EST Facial/Neck Incision Care: Cleanse all facial/neck incisions twice daily with baby shampoo or mild soap and water. Apply petroleum jelly/vaseline to incision line twice daily until incision has healed. [facility] Work Phone: 1(351) 824-964401-25-2024 Attending History and physical note* Elkin Holly MD - 10/28/2023 10:10 AM EST H&P reviewed. The patient was examined and there are no changes to the H&P. Source Note - User [facility] - 10/19/2023 12:00 AM EST [facility] Work Phone: 1(893) 709-803501-25-2024 History and physical note* Elkin Holly MD - 10/28/2023 10:10 AM EST H&P reviewed. The patient was examined and there are no changes to the H&P. 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 No bleeding complications Jul, Primary hypertension (ICD-10 [...] (ICD-10 - Z79.899) Check labs: CBC, ALT [facility] Other 08-28-2023 Evaluation note* Encounter Date Diagnosis Assessment Notes Treatment Notes Treatment Clinical Notes May, Seasonal allergic rhinitis due to pollen (ICD-10 - J30.1) [facility] Other 08-14-2023 Hospital Discharge instructions Patient Education [...] under a microscope. This is called the Hilltop score and the total score can range from 6 10, indicating how likely it is that the cancer will spread (metastasize) to other parts of the body. The higher the score, the greater thelikelihood that the cancer will spread. Aleksey 6 or lower: This indicates that the cancer cells look similar to normal prostate cells (well differentiated). Hilltop 7: This indicates that the cancer cells [...] stress of having cancer. General instructions Take evdw-hka-aiuqtdr and prescription medicines only as told by your health care provider. If you have to go to the hospital, notify your cancer specialist (oncologist). Keep all follow-up visits. This is important. Where to find more information [employer]: www.cancer.org [place] Society of Clinical Oncology: www.cancer.net National Cancer [place]: www.cancer.gov Contact a health care provider if: [...] provider. Document Revised: 12/17/2021 Document Reviewed: 12/17/2021 [employer] Patient Education 2022 [employer]. Follow Up Care 05/04/2022 13:27:43 With:MOY ARRIAGA, Cristela Carbajal, URL Address: [facility] [address], [place] [address] [phone] When:Within 1 Year(s) Comments:PSA [facility] 07-28-2023 Evaluation note* Encounter Date Diagnosis Assessment Notes Treatment Notes Treatment Clinical Notes Apr, Tinea corporis (ICD-10 - B35.4) Decrease lotrisone to q HS Apr, Venous stasis dermatitis of left lower extremity (ICD-10 - I87.2) Avoid salt and elevate lower extremities, support stockings, inspect legs and feet daily for blisters and ulcerations. Restart wearing support stockings during the daytime [employer] Other 04-21-2023 Evaluation note* Encounter Date Diagnosis [...] exercise and AHA diet plan. Avoid decongestants [facility] Other 04-05-2023 Evaluation note* Encounter Date Diagnosis [...] are maintaining regular scheduled appts with their sport internship. Jan, Chronic venous insufficiency (ICD-10 - I87.2) [...] cardiac pacemaker in situ (ICD-10 - Z95.0) [facility] Other 2022 NoteHISTORY AND PHYSICAL EXAMINATION Date:04/15/2022 [...] and go forward with his elective procedure.[id number] NoteOPERATIVE NOTE OPERATION DATE: 04/16/2022 SURGEON: Debbie [...] ensuring mobility, phacoemulsification was performed in a oiexlaf-koo-sgrsjj-type fashion. After all nuclear material had been [...] anterior chamber, maintaining the pressure as above. Weck-Kostas sponges were used to check the wounds to be watertight. One drop of apraclonidine and one drop of prednisolone acetate were placed into the eye and a shield was placed over top. The patient was sent to the postoperative area in satisfactory condition to follow up the following day for postoperative care.[facility] 05-07-2022 NoteOPERATIVE NOTE OPERATION DATE: 05/07/2022 [...] ensuring mobility, phacoemulsification was performed in a jkncbjy-mgf-gnxuqw-type fashion. After all nuclear material had been [...] antibiotic was injected into the anterior chamber. Weck-Kostas sponges were used to check the wounds to be watertight. One drop of apraclonidine and one drop of prednisolone acetate were placed into the eye and a shield was placed over top. The patient was sent to the postoperative area in satisfactory condition to follow up the following day for postoperative care.[facility] [id number] NoteHISTORY AND PHYSICAL EXAMINATION Date:05/06/2022 HISTORY: Patient [...] decline other than that of cataract. 2. VOCEP-90-Oww patient was briefed in the office and [...] and go forward with this elective procedure.[facility] [id number] Hospital Discharge instructions Patient Education 05/04/2022 13:26:39 [...] urethra. Follow these instructions at home: Take fbgq-fbm-cothtsp and prescription medicines only as told by [...] 09/20/2006 Document Revised: 08/15/2019 Document Reviewed: 10/25/2017 [employer] Patient Education 2020 [employer]. Follow Up Care 04/11/2021 11:38:50 With:MOY ARRIAGA, Cristela Carbajal, URL Address: [facility] [address] [place] [address]- [phone] When:Within 1 Year(s) Comments:w/ PSA [facility] 07-14-2022 NotePRE-OP HISTORY AND PHYSICAL [...] and go forward with his elective procedure.[facility] [id number] NoteOP Note OPERATION DATE: 04/16/2022 SURGEON: Debbie [...] ensuring mobility, phacoemulsification was performed in a jiiscan-gnc-esvqjm-type fashion. After all nuclear material had been [...] anterior chamber, maintaining the pressure as above. Weck-Kostas sponges were used to check the wounds to be watertight. One drop of apraclonidine and one drop of prednisolone acetate were placed into the eye and a shield was placed over top. The patient was sent to the postoperative area in satisfactory condition to follow up the following day for postoperative care.[facility] 11-03-2021 Evaluation note* Encounter Date Diagnosis Assessment Notes Treatment Notes Treatment Clinical Notes Oct, Displaced fracture of lateral end of right clavicle, subsequent encounter for fracture with routine healing (ICD-10 - S42.031D) Sebastian returns with right distal clavicle fracture. At [...] working and gentle motion and strength exercise. [facility] Other 01-07-2022 Evaluation note* Encounter Date Diagnosis Assessment Notes Treatment Notes Treatment Clinical Notes Oct, Closed displaced fracture of acromial end of right clavicle, initial encounter (ICD-10 - S42.031A) Sebastian presents with right distal clavicle fracture. At this juncture we have discussed the findings and diagnosis as well as personally reviewed appropriate imaging and performed interpretation of related testing and examination with the patient in office today. [facility] medical [facility] and history have been reviewed. [...] non-union discussed. We discussed the potential for watermelon inspector cosmetic deformity over the fracure site. Oct, Other See orders for this visit as documented in the electronic medical record. [facility] Other Evaluation + Plan note Future Appointments Appointment Date:05/17/2023 08:45:00 AM Scheduled Provider:Cristela WINTER MD Location:[facility] [place] Appointment Type:URO Office Visit Diagnostic Tests Pending * PSA Total 05/04/22 [facility] evaluation + Plan note Future Appointments Appointment Date:05/22/2024 08:45:00 AM Scheduled Provider:Cristela WINTER MD Location:[facility] [place] Appointment Type:URO Office Visit Diagnostic Tests Pending * PSA Total 05/17/23 [facility] evaluation + Plan note Future Appointments Appointment Date:05/25/2025 08:00:00 AM Scheduled Provider:Cristela WINTER MD Location:[facility] [place] Appointment Type:URO Office Visit Diagnostic Tests Pending * PSA Total 05/22/24 [facility] evaluation noteNo assessment information available [facility] Work Phone: Evaluation noteNo InformationNort [employer] Other Evaluation note* Diagnosis 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) documented in this encounter [facility] Work Phone: Evaluation note* Diagnosis 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) Post-op pain Other acute postoperative pain HTN (hypertension) Unspecified essential hypertension Hyperlipidemia Other and unspecified hyperlipidemia Atrial fibrillation (CMS/HCC) Atrial fibrillation documented in this encounter [facility] Work Phone: [phone] note* Diagnosis Malignant melanoma of forehead (CMS/HCC) documented in this encounter [facility] Work Phone: [phone] note* Diagnosis Malignant melanoma of forehead (CMS/HCC) documented in this encounter [facility] Work Phone: [phone] note* Diagnosis Onset Date Resolution Status Melanoma of head acute [facility] Work Phone: Evaluation note* Diagnosis Onset Date Resolution Status Cardiac pacemaker acute Encounter for coordination of complex care acute History of prostate cancer a cute Melanoma of head acute Rheumatoid arthritis acute Cardiac pacemaker acute Encounter for coordination of complex care acute History of prostate cancer a cute Melanoma of head acute Rheumatoid arthritis acute [facility] Work Phone: Evaluation note* Diagnosis Brow ptosis, right- Primary Dermatochalasis of right upper eyelid documented in this encounter [facility] Work Phone: Evaluation note* Diagnosis Onset [...] (hypertension) acute Hypercholesterolemia acute Rheumatoid arthritis acute [facility] Work Phone: Evaluation note* Diagnosis Malignant melanoma of forehead (Multi)- Primary documented in this encounter [facility] Work Phone: [phone] note* Diagnosis Onset Date Resolution Status Cardiac [...] Melanoma of head acute Rheumatoid arthritis acute [facility] Work Phone: Evaluation note* Diagnosis Onset Date Resolution Status Cardiac pacemaker acute Encounter for coordination of complex care acute History of prostate cancer a cute Melanoma of head acute Rheumatoid arthritis acute Anemia acute ASHD (arteriosclerotic heart disease) acute Atrial fibrillation acute HTN (hypertension) acute Hypercholesterolemia acute Melanoma of head acute Rheumatoid arthritis acute Thrombocytopenia acute [facility] Work Phone: Evaluation note* Diagnosis Dermatochalasis of both upper eyelids- Primary Myogenic ptosis of bilateral eyelids [facility] Diagnosis Onset Date Resolution Status Anemia acute ASHD (arteriosclerotic heart disease) acute Atrial fibrillation acute HTN (hypertension) acute Hypercholesterolemia acute Melanoma of head acute Rheumatoid arthritis acute Thrombocytopenia acute Abnormal computerized axial tomography of liver acute Cardiac pacemaker acute Encounter for coordination of complex care acute History of prostate cancer a cute Melanoma of head acute Rheumatoid arthritis acute [facility] Work Phone: evaluation note* Diagnosis Onset Date Resolution Status Anemia [...] Melanoma of head acute Rheumatoid arthritis acute [facility] Work Phone: evaluation note* Diagnosis Onset Date Resolution Status Anemia [...] head acute Rheumatoid arthritis acute Thrombocytopenia acute [facility] Work Phone: Evaluation note* Diagnosis Malignant melanoma of forehead (Multi)- Primary documented in this encounter [facility] Work Phone: Evaluation note* Diagnosis Onset [...] head acute Rheumatoid arthritis acute Thrombocytopenia acute [facility] Work Phone: Evaluation note* Diagnosis Melanoma of back (Multi)- Primary Melanoma of back (Multi)- Primary documented in this encounter [facility] Work Phone: Evaluation note* Diagnosis Malignant melanoma of upper back [facility] Diagnosis Melanoma of scalp- Primary 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 [facility] Diagnosis Metastatic melanoma Melanoma of skin, site unspecified [facility] Diagnosis Melanoma of scalp- Primary 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 Metastatic melanoma Melanoma of skin, site unspecified Rheumatoid arthritis, involving unspecified site, unspecified whether rheumatoid factor present Other restrictive cardiomyopathy Metastatic melanoma Melanoma of skin, site unspecified [facility] Diagnosis Melanoma of scalp- Primary 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 [facility] Melanoma of scalp- Primary 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 [facility] Diagnosis Melanoma of scalp- Primary 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 Encounter for hydration prior to CT scan [facility] Diagnosis Hypomagnesemia- Primary Disorders of magnesium metabolism Hypokalemia Hypopotassemia Elevated troponin Other abnormal blood chemistry Elevated brain natriuretic peptide (BNP) level Other nonspecific findings on examination of blood Other fatigue ELIZABETH (dyspnea on exertion) Other dyspnea and respiratory abnormality [facility] Diagnosis Failure to thrive in adult- Primary Adult failure to thrive Atrial fibrillation, unspecified type Melanoma of scalp 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 Chronic systolic heart failure Pulmonary HTN 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 [facility] Diagnosis Melanoma of scalp- Primary 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 [facility] N[facility] - Reported* Type Description Date Medical History Arthritis Surgical History cardiac pacemeker Nimbit Other History general Narrative - Reported* Type [...] History COLONOSCOPY Hospitalization History SEE SURGICAL HX Nimbit Other Hisbjwb general Narrative - Reported* Type Description Date Surgical History cardiac pacemeker 2012 Surgical History EXTRACTION OF CATARACT OF BOTH EYES 2021 Surgical History REPLACEMENT, ICD, BIVENTRICULAR 2020 Surgical History CABG Surgical History MVR Surgical History COLONOSCOPY Hospitalization History SEE SURGICAL Nimbit Other Hisvdxi general Narrative - Reported* Type Description Date [...] History COLONOSCOPY Hospitalization History SEE SURGICAL HX Nimbit Other History general Narrative - Reported* Type [...] History COLONOSCOPY Hospitalization History SEE SURGICAL HX [facility] Other Hospital course Narrative No data available for this section [facility] Hospital Discharge instructions No data available for this section [facility] prognhoe note No data available for this section [facility] proglvsn note Author Adilene Weinberg [facility] December 17, 2023 4:31pm Note Date/Time December 17, 2023 11: 39[facility] [place] [address] Cancer Center Note Signed Patient: Sebastian Hannon MR#: [id number] : 1935 Acct:[id number] Age/Sex: 88 / M Type: DEP AMB Copies to: Uma De Paz,DO~ Assessment & Plan A/P (1) [...] of recurrence. The patient's daughter wholives in [place] will be available by phone consultation at the time of his follow-up. He does have capacity for decision-making. All questions were answered over this 60-minute initial consultation. 12/17/2023: Discussion of negative BRAF status and no evidence of SHELL MOLDER disease on contrast head CT from 11/29/2023. [...] Chemotherapy History of Present Illness HPI 12/17/2023: Sebastian presents unaccompanied but his daughter is available [...] the deep margin. He was referred to [facility] head neck oncologic surgery. On 10/28/2023 [...] specimen and this will be requested from [facility]. Given his history of rheumatoid arthritis [...] at that time. She lives in the [facility] and will be available by [facility] for his follow-up appointment, hopefully within [...] 2. Discussion of adjuvant options 11/24/[address] [facility]. Negative BRAF status. PET/CT negative for [...] sulfate (iron) 1 tab PO DAILY fexofenadine (Nikunj Hives) 180 mg PO DAILY furosemide 20 [...] up visit and go over BRAF results [facility] Medical History Medical History Cardiac pacemaker Carotid stenosis Bradycardia Rheumatoid arthritis History of prostate cancer CAD (coronary artery disease) BPH (benign prostatic hyperplasia) Atrial fibrillation Hyperlipidemia HTN (hypertension) Melanoma Surgical History Surgical History H/O cystoscopy Family History Family History Brother Heart disease Legacy FamHx Relation: Brother(s) Father Heart disease 85 yrs Mother 65 yrs [facility]: Diagnosed with Cancer History of ovarian [...] findings negative for BRAF V600 Pathology review [facility] 10/28/2023: A. Skin wide local excision [...] No extracapsular extension is seen) C. Node, [place] lymph node #2 right intraparotid Metastatic malignant [...] pT2a pN2a RADIOLOGY/IMAGING RESULTS Date of Service: 02/16/24 PET/PET tumor init tx strat wb: Melanoma [...] normal limits ATROPHY: None BRAIN PARENCHYMA: Adequate malcolm-white matter differentiation identified. HEMORRHAGE: None HERNIATION: No [...] <Electronically signed by MD Adilene Weinberg> 12/17/23 47[address] [facility] Work Phone: Progress note Author Adilene Weinberg [facility] Note Date/Time October 05, 2024 3: 18pm [facility] [place] [place] [address] Cancer Center Note Signed Patient: Sebastian Hannon MR#: [id number] : 1935 Acct:[id number] Age/Sex: 89 / M Type: DEP AMB Date of Service: 10/05/24 Copies to: Uma De Paz DO~ Assessment & Plan A/P [...] recurrence. The patient's daughter who lives in [place] will be available by phone consultationat the time of his follow-up. He does have capacity for decision-making. All questions were answered over this 60-minute initial consultation. 12/17/2023: Discussion of negative BRAF status and no evidence of SHELL MOLDER disease on contrast head CT from 11/29/2023. [...] Chemotherapy History of Present Illness HPI 10/05/2024: Sebastian is here with his daughter by telephone [...] directed. Moderate complexity 35 minute followup. 07/06/2024: Sebastian presents with his daughter for 3-week follow-up [...] PET/CT and discussion of continued observation. 06/21/2024: Sebastian is here with his son-in-law for 3-month [...] eyelid ([facility] for possible procedure [...] assist with memory of recommendations. Moderate complexity [id number]. 03/16/2024: Sebastian presents with his daughter for in person [...] to review exam and restaging ultrasound. 12/17/2023: Sebastian presents unaccompanied but his daughter is available [...] the deep margin. He was referred to [facility] head neck oncologic surgery. On 10/28/2023 [...] specimen and this will be requested from [facility]. Given his history of rheumatoid arthritis [...] at that time. She lives in the [facility] and will be available by [facility] for his follow-up appointment, hopefully within [...] 2. Discussion of adjuvant options 11/24/[address] [facility]. Negative BRAF status. PET/CT negative for [...] sulfate (iron) 1 tab PO DAILY fexofenadine (Nikunj Hives) 180 mg PO DAILY furosemide 40 [...] and go over labs and extremity Ultrasound. [facility] Medical History Medical History Medicare annual wellness visit, subsequent Thrombocytopenia Ischemic cardiomyopathy Echo: [id number]%, RACHAEL, RV dilated, RVSP 72, bioprosthetic MV [...] signed by MD Adilene Weinberg> 10/06/24 132[address] [facility] Work Phone: Reason for referral (narrative)* Consultation (Routine) - Authorized Specialty Diagnoses / Procedures Referred By Faviola heredia Referred To Contact Hematology and Oncology Diagnoses Malignant melanoma of forehead (CMS/HCC) [place] [address] [facility] [place] [address] Adilene Weinberg MD [address] [place] [address] Referral ID Status Reason Start Date Expiration Date Visits Requested Visits Authorized [id number] Authorized Specialty Services Required 11/08/2023 11/07/2024 1 1 * Imaging (Routine) - Pending Review Specialty Diagnoses / Procedures Referred By Contbarrie t Referred To Contact Radiology Diagnoses Malignant melanoma of forehead (CMS/HCC) Procedures NM PET [place] [address] [facility] Department [place] [address] Referral ID Status Reason Start Date Expiration Date Visits Requested Visits Authorized [id number] Pending Review Perform Procedure 11/08/2023 11/07/2024 3 3 [facility] Work Phone: Reason for referral (narrative)No [facility] for [facility] Phone: Rekoim for referral (narrative)* Unlisted Procedure Code (Routine) - New Request Specialty Diagnoses / Procedures Referred By Contac t Referred To Contact Procedures DVT/VTE RISK ASSESSMENT Natasha Hurtado PA-C [address] [place] [phone] Phone: tel: fax: Referral ID Status Reason Start Date Expiration Date V isits Requested Visits Authorized [id number] New Request 06/10/2025 07/05/2026 1 1 * Unlisted Procedure Code (Routine) - New Request Specialty Diagnoses / Procedures Referred By Contac t Referred To Contact Procedures NO MECHANICAL DVT PROPHYLAXIS Sirai Wolfe APRN-CNP [address] [place] [phone] Phone: tel: fax: Referral ID Status Reason Start Date Expiration Date V isits Requested Visits Authorized [id number] New Request 06/10/2025 07/05/2026 1 1 * Unlisted Procedure Code (Routine) - New Request Specialty Diagnoses / Procedures Referred By Contac t Referred To Contact Procedures LOW RISK - NO PHARMACOLOGICAL DVT PROPHYLAXIS Siria Wolfe APRN-CNP [address] [place] [id number] Phone: tel: fax: Referral ID Status Reason Start Date Expiration Date V isits Requested Visits Authorized [id number] New Request 06/10/2025 07/05/2026 1 1 * Unlisted Procedure Code (Routine) - New Request Specialty Diagnoses / Procedures Referred By Contac t Referred To Contact Procedures DVT/VTE RISK ASSESSMENT Siria Wolfe APRN-CNP [address] [place] [id number] Phone: tel: fax: Referral ID Status Reason Start Date Expiration Date V isits Requested Visits Authorized [id number] New Request 06/10/2025 07/05/2026 1 1 * Radiology (Emergency) - New Request Specialty Diagnoses / Procedures Referred By Contac t Referred To Contact Procedures ECG ECG Natasha Hurtado PA-C [address] [place] [phone] Phone: tel: fax: Referral ID Status Reason Start Date Expiration Date V isits Requested Visits Authorized [id number] New Request 06/09/2025 07/04/2026 1 1 [facility] for visit Narrative* MRI/CAT Scan (Emergency) - New Request Specialty Diagnoses / Procedures Referred By Contac t Referred To Contact Diagnoses Metastatic melanoma Procedures CT HEAD WITH AND WITHOUT CONTRAST CHG CT HEAD/BRAIN W/O & W/CONTRAST MATERIAL Duglas Walsh MD, PhD [address] [address] Phone: tel: fax: Referral ID Status Reason Start Date Expiration Date V isits Requested Visits Authorized [id number] New Request 05/10/2025 06/04/2026 1 1 [facility]* Auth/Cert Specialty Diagnoses / Procedures Referred By Faviola t Referred To Contact Diagnoses Nausea (Hypomagnesemia) Vomiting Ludwig Hawkins MD [address] [place] [address] Phone: tel: fax: [facility] [address] [place] [address] Referral ID Status Reason Start Date Expiration Date Visits Re quested Visits Authorized [id number] 1 1 [facility] Summary Purpose Family History No Family History [...] Advance Directives No July 10, 2017 7:06am Date Activated Date Inactivated Comments 06/10/2025 5:41 PM Date Activated Date Inactivated Comments 06/10/2025 12:53 PM 06/10/2025 5:41 PM Documents on File Type Date Recorded 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 01/21/2010 Date Activated Date Inactivated Comments 06/10/2025 5:41 PM Date Activated Date Inactivated Comments 06/10/2025 12:53 PM 06/10/2025 5:41 PM Documents on File Type Date Recorded 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 01/21/2010 Chief Complaint and Reason for Visit Chief [...] 2024 8:58am ASHD (arteriosclerotic heart disease) Fe [facility] 2024 8:58am Atrial fibrillation November 20, 2024 8:58am Dermatitis, dyshidrotic November 20, 2 025 8:58am History of prostate cancer November 8:58am HTN (hypertension) November 20, 2024 8:58am Hypercholesterolemia November 20, 2024 8:58am Hyperlipidemia November 20, 2024 8:58am Ischemic cardiomyopathy November 20, 2 025 8:58am Melanoma of head November 20, 2024 8:58am Rheumatoid arthritis November 20, 2024 8:58am Chief Complaint Admit Date M05.79 October 30, 2024 1 2:59pm 4 month f/u November 20, 2024 8:58am melanoma January 02, 2025 8:25 am L Leg Concerns-HIGH RISK January 05, 2025 11:07am Reason for Visit Admit Date Allergic rhinitis November 20, 2024 8:58am ASHD (arteriosclerotic heart disease) Fe bruary 2024 8:58am Atrial fibrillation November 20, 2024 8:58am Dermatitis, dyshidrotic November 20 2 025 8:58am History of prostate cancer November 8:58am HTN (hypertension) November 20, 2024 8:58am Hypercholesterolemia November 20, 2024 8:58am Hyperlipidemia November 20, 2024 8:58am Ischemic cardiomyopathy November 20 2 025 8:58am Melanoma of head November 20, 2024 8:58am Rheumatoid arthritis November 20, 2024 8:58am Chief Complaint Admit Date M05.79 October 30, 2024 1 2:59pm 4 month f/u November 20, 2024 8:58am L Leg Concerns-HIGH RISK January 05, 2025 11:07am Follow Up after CT January 10, 2025 1:47 pm melanoma January 10, 2025 2:07 pm Reason for Visit Admit Date Allergic rhinitis November 20, 2024 8:58am ASHD (arteriosclerotic heart disease) [facility] 2024 8:58am Atrial fibrillation November 20, 2024 8:58am Dermatitis, dyshidrotic November 20 025 8:58am History of prostate cancer November 8:58am HTN (hypertension) November 20, 2024 8:58am Hypercholesterolemia November 20, 2024 8:58am Hyperlipidemia November 20, 2024 8:58am Ischemic cardiomyopathy November 20 025 8:58am Melanoma of head November 20, 2024 8:58am Rheumatoid arthritis November 20, 2024 8:58am ASHD (arteriosclerotic heart disease) Ap ril 2024 11:07am Atrial fibrillation January 05, 2025 11:0 7am Cellulitis of leg without foot, left Apr 2024 11:07am Chronic venous insufficiency January 05, 2025 11:07am Edema of left lower extremity January 05, 2025 11:07am Ischemic cardiomyopathy January 05, 2025 11:07am Subtherapeutic international normalized ratio (INR) January 05, 2025 11:07am Abnormal computerized axial tomography o f liver January 10, 2025 1:47pm Cardiac pacemaker January 10, 2025 1:47 pm Encounter for coordination of complex ca re January 10, 2025 1:47pm History of prostate cancer January 10 1:47pm Melanoma of head January 10, 2025 1:47 pm Rheumatoid arthritis January 10, 2025 1:4 7pm Chief Complaint Admit Date M05.79 October 30, 2024 1 2:59pm 4 month f/u November 20, 2024 8:58am L Leg Concerns-HIGH RISK January 05, 2025 11:07am Follow Up after CT January 10, 2025 1:47 pm melanoma January 10, 2025 2:07 pm leg swelling-HIGH RISK January 16, 2025 9:54am 1 wk f/u-HIGH RISK January 23, 2025 9:0 0am Reason for Visit Admit Date Allergic rhinitis November 20, 2024 8:58am ASHD [...] 8:58am Rheumatoid arthritis November 20, 2024 8:58am ASHD (arteriosclerotic heart disease) Ap ril 2024 11:07am Atrial fibrillation January 05, 2025 11:0 7am Cellulitis of leg without foot, left Apr 2024 11:07am Chronic venous insufficiency January 05, 2025 11:07am Edema of left lower extremity January 05, 2025 11:07am Ischemic cardiomyopathy January 05, 2025 11:07am Subtherapeutic international normalized ratio (INR) January 05, 2025 11:07am Abnormal computerized axial tomography o f liver January 10, 2025 1:47pm Cardiac pacemaker January 10, 2025 1:47 pm Encounter for coordination of complex ca re January 10, 2025 1:47pm History of prostate cancer January 10 1:47pm Melanoma of head January 10, 2025 1:47 pm Rheumatoid arthritis January 10, 2025 1:4 7pm Atrial fibrillation January 16, 2025 9:5 4am Cellulitis of leg without foot, left Apr il 2024 9:54am Edema of left lower extremity January 9:54am Atrial fibrillation January 23, 2025 9:0 0am Cellulitis of leg without foot, left Apr il 2024 9:00am Edema of left lower extremity January 9:00am Chief Complaint Admit Date L Leg Concerns-HIGH RISK January 05, 2025 11:07am Follow Up after CT January 10, 2025 1:47 pm melanoma January 10, 2025 2:07 pm leg swelling-HIGH RISK January 16, 2025 9:54am 1 wk f/u-HIGH RISK January 23, 2025 9:0 0am 4 month f/u-HIGH RISK March 21, 2025 8: 52am Reason for Visit Admit Date ASHD (arteriosclerotic heart disease) Ap ril 2024 11:07am Atrial fibrillation January 05, 2025 11:0 7am Chronic venous insufficiency January 05, 2025 11:07am Ischemic cardiomyopathy January 05, 2025 11:07am Subtherapeutic international normalized ratio (INR) January 05, 2025 11:07am Cellulitis of leg without foot, left Apr il 2024 11:07am Edema of left lower extremity January 05, 2025 11:07am Abnormal computerized axial tomography o f liver January 10, 2025 1:47pm Cardiac pacemaker January 10, 2025 1:47 pm Encounter for coordination of complex ca re January 10, 2025 1:47pm History of prostate cancer January 10 1:47pm Melanoma of head January 10, 2025 1:47 pm Rheumatoid arthritis January 10, 2025 1:4 7pm Atrial fibrillation January 16, 2025 9:5 4am Cellulitis of leg without foot, left Apr il 2024 9:54am Edema of left lower extremity January 9:54am Atrial fibrillation January 23, 2025 9:0 0am Cellulitis of leg without foot, left Apr il 2024 9:00am Edema of left lower extremity January 9:00am Atrial fibrillation March 21, 2025 8:52 am Cardiac pacemaker March 21, 2025 8:52 am Chronic venous insufficiency March 21, 2025 8:52am 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) March 21, 2025 8:52am History of prostate cancer March 21 8:52am HTN (hypertension) March 21, 2025 8:52 am Hypercholesterolemia March 21, 2025 8:5 2am Hyperlipidemia March 21, 2025 8:52 am Ischemic cardiomyopathy March 21, 2025 8:52am Melanoma of head March 21, 2025 8:52 am Pulmonary hypertension March 21, 2025 8 :52am Rheumatoid arthritis March 21, 2025 8:5 2am Chief Complaint Admit Date 1 wk f/u-HIGH RISK January 23, 2025 9:0 0am 4 month f/u-HIGH RISK March 21, 2025 8: 52am M05.79/Z79.899 April 04, 2025 12:57 pm review Pet- see workload msg April 19, 2025 1:55pm melanoma April 19, 2025 1:57 pm Reason for Visit Admit Date Atrial fibrillation January 23, 2025 9:0 0am Cellulitis of leg without foot, left Apr 2024 9:00am Edema of left lower extremity January 9:00am Atrial fibrillation March 21, 2025 8:52 am Cardiac pacemaker March 21, 2025 8:52 am Chronic venous insufficiency March 21, 2025 8:52am 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) March 21, 2025 8:52am History of prostate cancer March 21 8:52am HTN (hypertension) March 21, 2025 8:52 am Hypercholesterolemia March 21, 2025 8:5 2am Hyperlipidemia March 21, 2025 8:52 am Ischemic cardiomyopathy March 21, 2025 8:52am Melanoma of head March 21, 2025 8:52 am Pulmonary hypertension March 21, 2025 8 :52am Rheumatoid arthritis March 21, 2025 8:5 2am Reason for Referral Specialty Diagnoses / Procedures Referred By Contbarrie t Referred To Contact Radiology Diagnoses Malignant melanoma of forehead (CMS/HCC) Procedures [place] [address] [address] Department [place] [address] Referral ID Status Reason Start Date Expiration Date Visits Requested Visits Authorized [id number] Pending Review Perform Procedure 10/08/2023 10/07/2024 2 2 Additional Source Comments (unrecognized sect ion and content) No Status Records FoundNo Status Records FoundNo Status Records FoundNo Status Records FoundNo Status Records FoundNo Status Records FoundNo Status Records FoundNo Status Records FoundNo Status Records FoundNo Status Records FoundNo Status Records Found INFORMATION SOURCE (unrecogn ized section and content) DATE CREATED AUTHOR 09/16/2021 [facility] DATE CREATED AUTHOR AUTHOR'S ORGANIZ ATION 03/12/2023 [facility] DATE CREATED AUTHOR AUTHOR'S ORGANIZ ATION 02/18/2024 [facility] EPIC DATE CREATED AUTHOR AUTHOR'S ORGANIZ ATION 04/20/2025 [facility] DATE CREATED AUTHOR AUTHOR'S ORGANIZ ATION 04/22/2025 [facility] DATE CREATED AUTHOR AUTHOR'S ORGANIZ ATION 04/22/2025 [facility] DATE CREATED AUTHOR AUTHOR'S ORGANIZ ATION 04/24/2025 [facility] DATE CREATED AUTHOR AUTHOR'S ORGANIZ ATION 05/12/2025 [facility] DATE CREATED AUTHOR AUTHOR'S ORGANIZ ATION 05/20/2025 [facility] DATE CREATED AUTHOR AUTHOR'S ORGANIZ ATION 06/19/2025 [facility] DATE CREATED AUTHOR AUTHOR'S ORGANIZ ATION 06/23/2025 [facility] REASON FOR VISIT (unrecogniz ed section and content) Reason Comments New Patient Visit Specialty Diagnoses / Procedures Referred By Faviola t Referred To Contact Diagnoses 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) [C43.39] Procedures AK EXCISION MALIGNANT LESION F/E/E/N/L >4.0 CM AK DERMAL AUTOGRAFT F/S/N/H/F/G/M/D GT 1ST [address] GUIDANCE NEEDLE PLACEMENT ( sln inj @ 7:00 am ) Excision Lesion Skin Head/Neck Excision Full Thickness Skin Graft Torso Biopsy Lymph Node Head/[place] [address] [facility] Department [place] [address] [place] [address] [place] [address] Referral ID Status Reason Start Date Expiration Date Visits Re quested Visits Authorized [id number] 1 1 Reason Comments Dermatochalasis Evaluation Reason Comments Follow-up Reason Comments New Patient Visit Reason Onset Date Comments Medical Records 05/01/2025 Reason Comments Labs Only Reason Comments New Patient Melanoma to forehead diagnosed 2022, recently had melanoma removed from back. PET scan done 04/18/2025. 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 Adilene Weinberg MD [address] [place] [address] Phone: tel: fax: [facility] [address] [place] [address] Referral ID Status Reason Start Date Expiration Date V isits Requested Visits Authorized [id number] New Request 04/27/2025 05/22/2026 1 1 Reason Comments Immunotherapy Specialty Diagnoses / Procedures Referred By Contac t Referred To Contact Diagnoses Melanoma of scalp Duglas Walsh MD, PhD [address] [address] Phone: tel: fax: Duglas Walsh MD, PhD [address] [address] Phone: tel: fax: Referral ID Status Reason Start Date Expiration Date V isits Requested Visits Authorized [id number] Authorized 05/21/2025 199 199 Reason Comments Melanoma Clearance for day 1, cycle 1 of Nivolumab-Relatlimab -rmbw Reason Comments Anorexia Malaise Reason Onset Date Comments Advice Only 06/13/2025 Care Team (unrecognized sect ion and content) Team Status: Active Member Role Status Dates Uma De Paz DO Primary Care Provider Active Team Status: Active Member Role Status Dates Uma De Paz DO Primary Care Provider Active Start: January 22, 2025 ROLAND Raygoza Attending Provider Active Start: January 22, 2025 Team Status: Inactive Member Role Status Dates Uma De Paz DO Primary Care Provider Active Start: January 23, 2025 End: January 23, 2025 Uma De Paz DO Attending Provider Active Sta rt: January 23, 2025 End: January 23, 2025 Team Status: Active Member Role Status Dates Uma De Paz DO Primary Care Provider Active Start: January 26, 2025 Uma De Paz DO Attending Provider Active Sta rt: January 26, 2025 Team Status: Active Member Role Status Dates Uma De Paz DO Primary Care Provider Active Start: March 09, 2025 Dylon Kate MD Attending Provider Active Start: March 09, 2025 Team Status: Inactive Member Role Status Dates Uma De Paz DO Primary Care Provider Active Start: March 21, 2025 End: March 21, 2025 Uma De Paz DO Attending Provider Active Sta rt: March 21, 2025 End: March 21, 2025 Team Status: Active Member Role Status Dates Uma De Paz DO Primary Care Provider Active Start: March 28, 2025 Dylon Kate MD Attending Provider Active Start: March 28, 2025 Team Status: Inactive Member Role Status Dates Uma De Paz DO Primary Care Provider Active Start: April 04, 2025 End: April 04, 2025 MACIEL MannC Attending Provider Active Start: April 04, 2025 End: April 04, 2025 Team Status: Inactive Member Role Status Dates Uma De Paz DO Primary Care Provider Active Start: April 19, 2025 End: April 19, 2025 Adilene Weinberg MD Attending Provider Active Start: April 19, 2025 End: April 19, 2025 Team Status: Active Member Role Status Dates Uma De Paz DO Primary Care Provider Active Start: April 19, 2025 Adilene Weinberg MD Attending Provider Active Start: April 19, 2025 Elkin Holly MD Referring Provider Active S tart: April 19, 2025 Team Status: Inactive Member Role Status Dates Uma De Paz DO Primary Care Provide r, Attending Provider Active Start: July 20, 2024 End: July 20, 2024 Team Status: Inactive Member Role Status Dates Uma De Paz DO Primary Care Provide r, [...] Team Status: Inactive Member Role Status Dates Uma De Paz DO Primary Care Provider Active [...] Team Status: Inactive Member Role Status Dates Uma De Paz DO Primary Care Provide r, Attending Provider Active Start: April 25, 2024 End: April 25, 2024 Team Status: Active Member Role Status Dates Uma De Paz DO Primary Care Provider Active Start: March 16, 2024 Adilene Weinberg MD Attending Provider Active Start: March 16, 2024 Elkin Holly MD Referring Provider Active S tart: March 16, 2024 Team Status: Inactive Member Role Status Dates Uma De Paz DO Primary Care Provider Active Start: March 16, 2024 End: March 16, 2024 Adilene Weinberg MD Attending Provider Active Start: March 16, 2024 End: March 16, 2024 Team Status: Active Member Role Status Dates Uma De Paz DO Primary Care Provide r, Attending Provider Active Start: April 20, 2024 Team Status: Inactive Member Role Status Dates Uma De Paz DO Primary Care Provider Active Michele Arteaga MD Attending Provider Active Team Status: Inactive Member Role Status Dates Uma De Paz DO Primary Care Provider Active Jose R Cruz MD Attending Provider Active Powder Hand Relationship Specialty Start Date End Date Uma De Paz DO [address] [place] [address] [place] [address] PCP - General Internal Medicine 10/28/23 Powder Hand Relationship Specialty Start Date End Date Uma De Paz DO [address] [place] [address] [place] [address] PCP - General Internal Medicine 10/28/23 Powder Hand Relationship Specialty Start Date End Date Uma De Paz DO [address] [place] [address] [place] [address] PCP - General Internal Medicine 10/28/23 Team Status: Inactive Member Role Status Dates Uma De Paz DO Attending Provider Active Sta rt: October 19, 2023 End: October 19, 2023 Team Status: Inactive Member Role Status Dates Uma De Paz DO Primary Care Provider Active Start: November 19, 2023 End: November 19, 2023 Elkin Holly MD Attending Provider Active S tart: November 19, 2023 End: November 19, 2023 Team Status: Inactive Member Role Status Dates Uma De Paz DO Primary Care Provider Active Start: November 24, 2023 End: November 24, 2023 Adilene Weinberg MD Attending Provider Active Start: November 24, 2023 End: November 24, 2023 Elkin Holly MD Referring Provider Active S tart: November 24, 2023 End: November 24, 2023 Team Status: Active Member Role Status Dates Uma De Paz DO Primary Care Provider Active Start: November 24, 2023 Adilene Weinberg MD Attending Provider Active Start: November 24, 2023 Elkin Holly MD Referring Provider Active S tart: November 24, 2023 Team Status: Inactive Member Role Status Dates Uma De Paz DO Primary Care Provide r, Attending Provider Active Start: December 10, 2023 End: December 10, 2023 Team Status: Active Member Role Status Dates Uma De Paz DO Primary Care Provider Active Start: December 17, 2023 Adilene Weinberg MD Attending Provider Active Start: December 17, 2023 Elkin Holly MD Referring Provider Active S tart: December 17, 2023 Team Status: Inactive Member Role Status Nataly De Paz DO Primary Care Provider Active Start: December 17, 2023 End: December 17, 2023 Adilene Weinberg MD Attending Provider Active Start: December 17, 2023 End: December 17, 2023 Team Status: Inactive Member Role Status Dates Uma De Paz DO Primary Care Provider Active Start: December 27, 2023 End: December 27, 2023 Michele Arteaga MD Attending Provider Active St art: December 27, 2023 End: December 27, 2023 Powder Hand Relationship Specialty Start Date End Date Uma De Paz DO [address] [place] [address] [place] [address] PCP - General Internal Medicine 10/28/23 Team Status: Inactive Member Role Status Dates Uma De Paz DO Primary Care Provide r, Attending Provider Active Start: January 19, 2024 End: January 19, 2024 Powder Hand Relationship Specialty Start Date End Date Uma De Paz DO [address] [facility] [place], [place] [id number] PCP - General Internal Medicine 10/28/23 Team Status: Active Member Role Status Dates Uma De Paz DO Primary Care Provider Active Start: June 21, 2024 Adilene Weinberg MD Attending Provider Active Start: June 21, 2024 Elkin Holly MD Referring Provider Active S tart: June 21, 2024 Team Status: Active Member Role Status Dates Uma De Paz DO Primary Care Provider Active Start: June 30, 2024 Adilene Weinberg MD Attending Provider Active Start: June 30, 2024 Elkin Holly MD Referring Provider Active S tart: June 30, 2024 Powder Hand Relationship Specialty Start Date End Date Uma De Paz DO PCP - General Internal Medicine 10/28/23 Powder Hand Relationship Specialty Start Date End Date Uma De Paz MD [address] [place] [address] PCP - General Internal Medicine 11/04/23 Tereso Ram OD [address] [id number] Referring Physician Optometry 02/16/24 Powder Hand Relationship Specialty Start Date End Date Uma De Paz MD [address] [place] [phone] PCP - General Internal Medicine 11/04/23 Tereso Ram OD [address] [place], [place] [id number] Referring Physician Optometry 02/16/24 Powder Hand Relationship Specialty Start Date End Date Uma De Paz MD [address] [place] [address] PCP - General Internal Medicine 11/04/23 Tereso Ram OD [address] [place] [address] Referring Physician Optometry 02/16/24 Powder Hand Relationship Specialty Start Date End Date Uma De Paz MD [address] [place] [phone] PCP - General Internal Medicine 11/04/23 Tereso Ram OD [address] [place] [address] Referring Physician Optometry 02/16/24 Team Status: Inactive Member Role Status Dates Uma De Paz DO Primary Care Provider Active Start: October 30, 2024 End: October 30, 2024 Michele Arteaga MD Attending Provider Active St art: October 30, 2024 End: October 30, 2024 Team Status: Inactive Member Role Status Dates Uma De Paz DO Primary Care Provide r, Attending Provider Active Start: November 20, 2024 End: November 20, 2024 Team Status: Active Member Role Status Dates Uma De Paz DO Primary Care Provider Active Start: December 15, 2024 Kayley Gilbert NP-C Attending Provider Active Start: December 15, 2024 Team Status: Active Member Role Status Dates Uma De Paz DO Primary Care Provider Active Start: January 02, 2025 Adilene Weinberg MD Attending Provider Active Start: January 02, 2025 Elkin Holly MD Referring Provider Active S tart: January 02, 2025 Team Status: Inactive Member Role Status Dates Uma De Paz DO Primary Care Provide r, Attending Provider Active Start: January 05, 2025 End: January 05, 2025 Team Status: Inactive Member Role Status Dates Uma De Paz DO Primary Care Provider Active Start: January 10, 2025 End: January 10, 2025 Adilene Weinberg MD Attending Provider Active Start: January 10, 2025 End: January 10, 2025 Team Status: Active Member Role Status Dates Uma De Paz DO Primary Care Provider Active Start: January 10, 2025 Adilene Weinberg MD Attending Provider Active Start: January 10, 2025 Elkin Holly MD Referring Provider Active S tart: January 10, 2025 Team Status: Inactive Member Role Status Dates Uma De Paz DO Primary Care Provide r, Attending Provider Active Start: January 16, 2025 End: January 16, 2025 Team Status: Inactive Member Role Status Dates Uma De Paz DO Primary Care Provide r, Attending Provider Active Start: January 23, 2025 End: January 23, 2025 Powder Hand Relationship Specialty Start Date End Date Uma De Paz DO PCP - General Internal Medicine 11/04/23 Tereso Ram OD [address] [id number] Referring Physician Optometry 02/16/24 Powder Hand Relationship Specialty Start Date End Date Uma De Paz DO PCP - General Internal Medicine 11/04/23 Tereso Ram, OD [address] [place] [address] Referring Physician Optometry 02/16/24 Team Status: Inactive Member Role Status Dates Uma De Paz DO Primary Care Provider Active Start: January 05, 2025 End: January 05, 2025 Uma De Paz DO Attending Provider Active Sta rt: January 05, 2025 End: January 05, 2025 Team Status: Inactive Member Role Status Dates Uma De Paz DO Primary Care Provider Active Start: January 16, 2025 End: January 16, 2025 Uma De Paz DO Attending Provider Active Sta rt: January 16, 2025 End: January 16, 2025 Powder Hand Relationship Specialty Start Date End Date Uma De Paz DO PCP - General Internal Medicine 11/04/23 Tereso Ram OD [address] [place] [address] Referring Physician Optometry 02/16/24 Powder Hand Relationship Specialty Start Date End Date Uma De Paz DO PCP - General Internal Medicine 10/28/23 Powder Hand Relationship Specialty Start Date End Date Uma De Paz DO PCP - General Internal Medicine 08/11/19 Terrence Renteria MD Vice President Of Product Marketing Cardiovascular Disease 07/12/19 Powder Hand Relationship Specialty Start Date End Date Uma De Paz DO PCP - General Internal Medicine 08/11/19 Terrence Renteria MD Vice President Of Product Marketing Cardiovascular Disease 07/12/19 Duglas Walsh MD, PhD [address] [address] Oncologist Medical Oncology 05/02/25 Dylon Kate MD [address] [place] [address] [place] [address] Interventional Cardiology 05/07/25 [place] [address] [address] Department [place] [address] Otolaryngology 05/07/25 Adilene Weinberg MD [address] [place] [address] Hematology 05/07/25 Powder Hand Relationship Specialty Start Date End Date Uma De Paz PCP - General Internal Medicine 08/11/19 Terrence Renteria MD Vice President Of Product Marketing Cardiovascular Disease 07/12/19 Duglas Walsh MD, PhD [facility] [place] [address] Oncologist Medical Oncology 05/02/25 Dylon Kate MD [address] [facility] [place] [address] Interventional Cardiology 05/07/25 [place] [address] [address] [facility] Department [place] [address] Otolaryngology 05/07/25 Adilene Weinberg MD [address] [place] [address] Hematology 05/07/25 Renee Roque DO [address] [place] [address] Dermatology 05/10/25 Cristela Winter MD [address] [place] [address] Urology 05/10/25 Powder Hand Relationship Specialty Start Date End Date Uma De Paz DO PCP - General Internal Medicine 08/11/19 Terrence Renteria MD Vice President Of Product Marketing Cardiovascular Disease 07/12/19 Duglas Walsh MD, PhD [address]th [place] [address] Oncologist Medical Oncology 05/02/25 Dylon Kate MD [address] [facility] [place] [address] Interventional Cardiology 05/07/25 [place] [address] [address] Department [place] [address] Otolaryngology 05/07/25 Adilene Weinberg MD [address] [place] [address] Hematology 05/07/25 Renee Roque DO [address] [place] [address] Dermatology 05/10/25 Cristela Winter MD [address] [place] [address] Urology 05/10/25 Powder Hand Relationship Specialty Start Date End Date Uma De Paz DO PCP - General Internal Medicine 08/11/19 Terrence Renteria MD Vice President Of Product Marketing Cardiovascular Disease 07/12/19 Duglas Walsh MD, PhD [address] [facility] 4th [place] [address] Oncologist Medical Oncology 05/02/25 Dylon Kate MD [address] [facility] [address] [place] [address] Interventional Cardiology 05/07/25 [place] [address] [address] Department [place] [address] Otolaryngology 05/07/25 Adilene Weinberg MD [address] [place] [address] Hematology 05/07/25 Renee Roque DO [address] [place] [address] Dermatology 05/10/25 Cristela Winter MD [address] [place] [address] Urology 05/10/25 Powder Hand Relationship Specialty Start Date End Date Uma De Paz DO PCP - General Internal Medicine 08/11/19 Terrence Renteria MD Vice President Of Product Marketing Cardiovascular Disease 07/12/19 Duglas Walsh MD, PhD [address] [facility] 4[address] [place] [phone] Oncologist Medical Oncology 05/02/25 Dylon Kate MD [address] [facility] [address] [place] [address] Interventional Cardiology 05/07/25 [place] [address] i[address] [facility] Department [place] [address] Otolaryngology 05/07/25 Adilene Weinberg MD [address] [place] [address] Hematology 05/07/25 Renee Roque DO [address] [facility] [address] [place] [address] Dermatology 05/10/25 Cristela Winter MD [address] [place] [address] Urology 05/10/25 Powder Hand Relationship Specialty Start Date End Date Uma De Paz DO PCP - General Internal Medicine 08/11/19 Terrence Renteria MD Vice President Of Product Marketing Cardiovascular Disease 07/12/19 Duglas Walsh MD, PhD Oncologist Medical Oncology 05/02/25 Dylon Kate MD [address] [facility] [place] [address] Interventional Cardiology 05/07/25 [place] [address] [address] [facility] Department [place] [address] Otolaryngology 05/07/25 Adilene Weinberg MD [address] [place] [address] Hematology 05/07/25 Renee Roque DO [address] [place] [address] Dermatology 05/10/25 Cristela Winter MD [address] [place] [address] Urology 05/10/25 Martita Tapia LISW Wire Technician Social Work 05/14/25 Powder Hand Relationship Specialty Start Date End Date Uma De Paz DO PCP - General Internal Medicine 08/11/19 Terrence Renteria MD Vice President Of Product Marketing Cardiovascular Disease 07/12/19 Duglas Walsh MD, PhD Oncologist Medical Oncology 05/02/25 Dylon Kate MD [address] [place] [address] Interventional Cardiology 05/07/25 [place] [address] Y[address] [facility] Department of Otolaryngology [place] [id number] Otolaryngology 05/07/25 Adilene Weinberg MD [address] [place] [address] Hematology 05/07/25 Renee Roque DO [address] [place] [address] Dermatology 05/10/25 Cristela Winter MD [address] [place] [address] Urology 05/10/25 Martita Tapia LISW Wire Technician Social Work 05/14/25 Powder Hand Relationship Specialty Start Date End Date Uma De Paz DO PCP - General Internal Medicine 08/11/19 Terrence Renteria MD Vice President Of Product Marketing Cardiovascular Disease 07/12/19 Duglas Walsh MD, PhD Oncologist Medical Oncology 05/02/25 Dylon Kate MD [address] [facility] [address] [place] [address] Interventional Cardiology 05/07/25 [place] [address] Department [place] [address] Otolaryngology 05/07/25 Adilene Weinberg MD [address] [place] [address] Hematology 05/07/25 Renee Roque DO [address] [place] [address] Dermatology 05/10/25 Cristela Winter MD [address] [place] [address] Urology 05/10/25 Martita Tapia LISW Wire Technician Social Work 05/14/25 Powder Hand Relationship Specialty Start Date End Date Zandra DO Uma PCP - General Internal Medicine 08/11/19 Terrence Renteria MD Vice President Of Product Marketing Cardiovascular Disease 07/12/19 Duglas Walsh MD, PhD Oncologist Medical Oncology 05/02/25 Dylon Kate MD [address] [facility] [address] [place] [address] Interventional Cardiology 05/07/25 [place] [address] [address] Department of Otolaryngology [place] [id number] Otolaryngology 05/07/25 Adilene Weinberg MD [address] [place] [address] Hematology 05/07/25 Renee Roque DO [address] [place] [address] Dermatology 05/10/25 Cristela Winter MD [address] [place] [address] Urology 05/10/25 Martita Tapia LISW Wire Technician Social Work 05/14/25 06/06/25 Powder Hand Relationship Specialty Start Date End Date Uma De Paz DO PCP - General Internal Medicine 08/11/19 Terrence Renteria MD Vice President Of Product Marketing Cardiovascular Disease 07/12/19 Duglas Walsh MD, PhD Oncologist Medical Oncology 05/02/25 Dylon Kate MD [address] [place] [address] Interventional Cardiology 05/07/25 [place] [address] [address] Department [place] [address] Otolaryngology 05/07/25 Adilene Weinberg MD [address] [place] [address] Hematology 05/07/25 Renee Roque DO [address] [place] [address] Dermatology 05/10/25 Cristela Winter MD [address] [place] [address] Urology 05/10/25 Powder Hand Relationship Specialty Start Date End Date Uma De Paz DO PCP - General Internal Medicine 08/11/19 Terrence Renteria MD Vice President Of Product Marketing Cardiovascular Disease 07/12/19 Duglas Walsh MD, PhD Oncologist Medical Oncology 05/02/25 Dylon Kate MD [address] [facility] [place] [address] Interventional Cardiology 05/07/25 [place] [address] [address] Department [place] [address] Otolaryngology 05/07/25 Adilene Weinberg MD [address] [place] [address] Hematology 05/07/25 BedRenee horvath DO [address] [place] [address] Dermatology 05/10/25 Cristela Winter MD [address] [facility] [place] [address] Urology 05/10/25 Powder Hand Relationship Specialty Start Date End Date ZandraUmaDO PCP - General Internal Medicine 08/11/19 Terrence Renteria MD Vice President Of Product Marketing Cardiovascular Disease 07/12/19 Duglas Walsh MD, PhD Oncologist Medical Oncology 05/02/25 Dylon Kate MD [address] [place] [address] Interventional Cardiology 05/07/25 [place] [address] [address] [facility] Department [place] [address] Otolaryngology 05/07/25 Adilene Weinberg MD [address] [place] [address] Hematology 05/07/25 BedRenee horvath DO [address] [place] [address] Dermatology 05/10/25 Cristela Winter MD [address] [place] [address] Urology 05/10/25 Powder Hand Relationship Specialty Start Date End Date Uma De Paz DO PCP - General Internal Medicine 08/11/19 Terrence Renteria MD Vice President Of Product Marketing Cardiovascular Disease 07/12/19 Duglas Walsh MD, PhD Oncologist Medical Oncology 05/02/25 Dylon Kate MD [address] [place] [address] Interventional Cardiology 05/07/25 [place] [address] Yin [facility] Department [place] [address] Otolaryngology 05/07/25 Adilene Weinberg MD [address] [place] [address] Hematology 05/07/25 Renee Roque DO [address] [place] [address] Dermatology 05/10/25 Cristela Winter MD [address] [place] [address] Urology 05/10/25 Powder Hand Relationship Specialty Start Date End Date Uma De Paz DO PCP - General Internal Medicine 08/11/19 Terrence Renteria MD Vice President Of Product Marketing Cardiovascular Disease 07/12/19 Duglas Walsh MD, PhD Oncologist Medical Oncology 05/02/25 Dylon Kate MD [address] [facility] [address] [place] [address] Interventional Cardiology 05/07/25 [place] [address] Yin [facility] Department [place] [address] Otolaryngology 05/07/25 Adilene Weinberg MD [address] [place] [address] Hematology 05/07/25 Renee Roque DO [address] [place] [address] Dermatology 05/10/25 Cristela Winter MD [address] [place] [address] Urology 05/10/25 Goals (unrecognized section and content) Goals may [...] at 1455, For 1 dose, Recovery (only) Scheduled Medication Order 06/08/2025 06/09/2025 06/10/2025 amLODIPine (NORVASC) tablet 2.5 mg 2.5 mg, Oral, DAILY, First dose on 06/10/25 at 0900, Until Discontinued 841 (Given - Provid er: Caryl Watson RN) Fexofenadine (NIKUNJ) tablet 180 mg 180 mg, Oral, DAILY, First dose on 06/10/25 at 0900, Until Discontinued, Avoid antacid administration one hour before and two hours after dose. Avoid administration with fruit juices. 840 (Given - Provid er: Caryl Watson RN) Finasteride (PROSCAR) tablet 5 mg 5 mg, Oral, DAILY EVERY MORNING, First dose on 06/10/25 at 0900, Until Discontinued, Do not split, break, crush or open this medication. Contact pharmacy if altered route or dose needed. 840 (Given - Provid er: Caryl Watson RN) furOSEmide (LASIX) tablet 60 mg 60 mg, Oral, DAILY, First dose on 06/10/25 at 0900, Until Discontinued 841 (Given - Provid er: Caryl Watson RN) Hydroxychloroquine (PLAQUENIL) tablet 200 mg(Linked Group 1) 200 mg, Oral, CUSTOM FREQUENCY (Once per day on Wednesday), First dose on 06/10/25 at 0900, Until Discontinued 841 (Given - Provid er: Caryl Watson RN) Hydroxychloroquine (PLAQUENIL) tablet 200 mg(Linked Group 1) 200 mg, Oral, CUSTOM FREQUENCY (2 times per day on Wednesday), First dose on Wed06/11/25 at 0900, Until Discontinued iohexol (OMNIPAQUE) 350 MG/ML injection 1-171 mL (COMPLETED) 1-171 mL, Intravenous, ONCE, 1 dose, On 06/09/25 at 1830, Extravasation Risk, CT Procedure 181 (Given - Radiology - Provider: Ana M Bhagat) Losartan (COZAAR) tablet 50 mg 50 mg, Oral, DAILY, First dose on 06/10/25 at 0900, Until Discontinued 841 (Given - Provid er: Caryl Watson RN) Magnesium sulfate 1 g in dextrose 5% 100 mL premix IVPB () 1 g, Intravenous, Administer over 60 Minutes, EVERY 1 HOUR, 2 doses, First dose (after last modification) on 06/09/25 at 1700, Last dose on 06/09/25 at 1800 1850 ($$New Bag$$ - Provider: Madhavi Mac RN)1950 (Stopped - Provider: Meghann Bailey RN)1954 (Not Given - Provider: Meghann Bailey RN - Reason: Other - Comment: order ) Magnesium sulfate 1 g in dextrose 5% 100 mL premix IVPB (COMPLETED) 1 g, Intravenous, Administer over 60 Minutes, ONCE, 1 dose, On 06/09/25 at 2030 1959 ($$New Bag$$ - Provider: Meghann Bailey RN)2017 (Paused - Provider: Meghann Bailey RN)2032 (Restarted - Provider: Meghann Bailey, RN)2114 (Stopped - Provider: Meghann Bailey RN) Metoprolol succinate (TOPROL-XL) tablet XL 75 mg 75 mg, Oral, DAILY, First dose (after last modification) on 06/10/25 at 0900, Until Discontinued, Slow release product. Do not crush. Extended release can be cut in half. 0842 (Given - Provid er: Caryl Watson RN) Potassium chloride (K-DUR) tablet ER 20 mEq (COMPLETED) 20 mEq, Oral, ONCE, 1 dose, On 06/09/25 at 1830, Swallow tablets whole; do not crush, chew, or suck on tablet. Tablet may also be broken in half and each half swallowed separately. 1842 (Given - Provider: Madhavi Mac RN) Potassium chloride 10 mEq in sterile water 100 ml premix IVPB (COMPLETED)(Linked Group 2) 10 mEq, Intravenous, Administer over 60 Minutes, ONCE, 1 dose, On 06/10/25 at 1230 1250 ($$New Bag$$ - Provider: Caryl Watson RN)1359 (Stopped - Provider: Roxann Khan RN) Potassium chloride 10 mEq in sterile water 100 ml premix IVPB (COMPLETED)(Linked Group 2) 10 mEq, Intravenous, Administer over 60 Minutes, ONCE, 1 dose, On 06/10/25 at 1330 1400 ($$New Bag$$ - Provider: Roxann Khan RN)1401 (Rate/Dose Change - Provider: Caryl Watson RN - Comment: pt unable to tolerate at 100 mL/hr)1452 (Rate/Dose Verify - Provider: Caryl Watson RN)1523 (Stopped - Provider: Caryl Watson RN) Potassium chloride 10 mEq in sterile water 100 ml premix IVPB (COMPLETED)(Linked Group 2) 10 mEq, Intravenous, Administer over 60 Minutes, ONCE, 1 dose, On 06/10/25 at 1430 1524 ($$New Bag$$ - Provider: Caryl Watson RN)1524 (Rate/Dose Change - Provider: Caryl Watson RN)1633 (Rate/Dose Verify - Provider: Caryl Watson RN)1653 (Stopped - Provider: Caryl Watson RN) Potassium chloride 10 mEq in sterile water 100 ml premix IVPB(Linked Group 2) 10 mEq, Intravenous, Administer over 60 Minutes, ONCE, 1 dose, On 06/10/25 at 1530 1653 ($$New Bag$$ - Provider: Caryl Watson RN) Sodium chloride 0.9% IV solution 500 mL (COMPLETED) 500 mL, Intravenous, ONCE, 1 dose, On 06/09/25 at 1630 1617 ($$New Bag$$ - Provider: Madhavi Mac RN)1857 (Rate/Dose Verify - Provider: Madhavi Mac RN)1999 (Stopped - Provider: Meghann Bailey RN) Spironolactone (ALDACTONE) tablet 25 mg 25 mg, Oral, DAILY EVERY MORNING, First dose on 06/10/25 at 0900, Until Discontinued, Max 400 mg/day. Do not crush, split or chew at bedside (hazardous drug). Contact pharmacy if alternate route or dose is needed. 0842 (Given - Provid er: Caryl Watson RN) warfarin (COUMADIN) tablet 5 mg 5 mg, Oral, DAILY, First dose on 06/10/25 at 1000, Until Discontinued, Swallow tablet whole; do not crush, split or chew. Contact pharmacy if alternate route or dose is needed., On hold since 06/10/2025 at 1014 until manually unheld 1014 (Held by provid er - Provider: Tereso Messina PA-C - Reason: Other - Comment: Supratherapeutic INR. Re-eval 06/11 after morning INR)1024 (Not Given - Provider: Caryl Watson RN - Reason: Contraindicated - Comment: provider held medication)1735 (Unheld by provider - Provider: System Discharge) PRN Medication Order 06/08/2025 06/09/2025 06/10/2025 Acetaminophen (TYLENOL) tablet 650 mg 650 mg, Oral, EVERY 6 HOURS NEEDED, Starting on 06/10/25 at 0140, Until 06/10/25 at 1735, Mild Pain, Oral temp > 100.4 F, Maximum dose of acetaminophen is 4000 mg from all sources in 24 hours. alum/mag hydrox.-simethicone oral suspension 30 mL 30 mL, Oral, EVERY 6 HOURS NEEDED, Starting on 06/10/25 at 0139, Until 06/10/25 at 1735, Indigestion, Per 5 mL is equivalent to: (Alum-Mag Hydroxide 200-225 mg and Simethicone 20 mg) and (Alum-Mag Hydroxide 200-200 mg and Simethicone 20 mg) Ondansetron (ZOFRAN) tablet 4 mg(Linked Group 3) 4 mg, Oral, EVERY 4 HOURS NEEDED, Starting on 06/10/25 at 0140, Until 06/10/25 at 1735, Nausea / Vomiting Ondansetron 4mg/2ml (ZOFRAN) injection 4 mg(Linked Group 3) 4 mg, Intravenous, EVERY 6 HOURS NEEDED, Starting on 06/10/25 at 0140, Until 06/10/25 at 1735, Nausea / Vomiting, Refractory Nausea Vomiting, if nausea and vomiting not relieved by Prochlorperazine. Sodium chloride (PF) 0.9 % injection 1-100 mL (COMPLETED) 1-100 mL, Intravenous, ONCE NEEDED, 1 dose, Starting on 06/09/25 at 1817, Until 06/09/25 at 1817, Flush, CT Procedure 1816 (Given - Provider: Darcy Bhagat) Linked Groups Order Group 1: Hydroxychloroquine (PLAQUENIL) tablet 200 mgJump to med 200 mg, Oral, CUSTOM FREQUENCY (Once per day on Wednesday), First dose on Wed06/10/25 at 0900, Until Discontinued And Hydroxychloroquine (PLAQUENIL) tablet 200 mgJump to med 200 mg, Oral, CUSTOM FREQUENCY (2 times per day on Wednesday), First dose on Wed06/11/25 at 0900, Until Discontinued Group 2: Potassium chloride 10 mEq in sterile water 100 ml premix IVPB (COMPLETED)Jump to med 10 mEq, Intravenous, Administer over 60 Minutes, ONCE, 1 dose, On 06/10/25 at 1230 Followed by Potassium chloride 10 mEq in sterile water 100 ml premix IVPB (COMPLETED)Jump to med 10 mEq, Intravenous, Administer over 60 Minutes, ONCE, 1 dose, On Wed06/10/25 at 1330 Followed by Potassium chloride 10 mEq in sterile water 100 ml premix IVPB (COMPLETED)Jump to med 10 mEq, Intravenous, Administer over 60 Minutes, ONCE, 1 dose, On 06/10/25 at 1430 Followed by Potassium chloride 10 mEq in sterile water 100 ml premix IVPBJump to med 10 mEq, Intravenous, Administer over 60 Minutes, ONCE, 1 dose, On 06/10/25 at 1530 Group 3: Ondansetron 4mg/2ml (ZOFRAN) injection 4 mgJump to med 4 mg, Intravenous, EVERY 6 HOURS NEEDED, Starting on Wed06/10/25 at 0140, Until Wed06/10/25 at 1735, Nausea / Vomiting, Refractory Nausea Vomiting, if nausea and vomiting not relieved by Prochlorperazine. Or Ondansetron (ZOFRAN) tablet 4 mgJump to med 4 mg, Oral, EVERY 4 HOURS NEEDED, Starting on Wed06/10/25 at 0140, Until Wed06/10/25 at 1735, Nausea / Vomiting Scheduled Medication Order 06/16/2025 06/17/2025 06/18/2025 amLODIPine (NORVASC) tablet 2.5 mg 2.5 mg, Oral, DAILY, First dose (after last modification) on Wed06/11/25 at 0900, Until Discontinued 0949 (Given - Provider: Nimisha Ulrich RN) 31 (Given - Provider: Yasemin Swann RN) 51 (Given - Provider: Yasemin Swann, MARQUITA) Fexofenadine (NIKUNJ) tablet 180 mg 180 mg, Oral, DAILY, First dose (after last modification) on Wed06/11/25 at 0900, Until Discontinued, Avoid antacid administration one hour before and two hours after dose. Avoid administration with fruit juices. 0949 (Given - Provider: Nimisha Ulrich RN) 09 (Given - Provider: Yasemin Swann, MARQUITA) 51 (Given - Provider: Yasemin Swann, MARQUITA) Finasteride (PROSCAR) tablet 5 mg 5 mg, Oral, DAILY EVERY MORNING, First dose (after last modification) on Wed06/11/25 at 0900, Until Discontinued, Do not split, break, crush or open this medication. Contact pharmacy if altered route or dose needed. 0948 (Given - Provider: Nimisha Ulrich RN) 906 (Given - Provider: Yasemin Swann RN) 51 (Given - Provider: Yasemin Swann RN) furOSEmide (LASIX) tablet 40 mg 40 mg, Oral, EVERY OTHER DAY, First dose (after last modification) on Wed06/13/25 at 1245, Until Discontinued 1200 (Given - Provider: Brii Goins RN) Hydroxychloroquine (PLAQUENIL) tablet 200 mg(Linked Group 1) 200 mg, Oral, CUSTOM FREQUENCY (Once per day on Wednesday), First dose (after last modification) on Wed06/12/25 at 0900, Until Discontinued 948 (Given - Provider: Nimisha Ulrich RN) 906 (Given - Provider: Yasemin Swann RN) Hydroxychloroquine (PLAQUENIL) tablet 200 mg(Linked Group 1) 200 mg, Oral, CUSTOM FREQUENCY (2 times per day on Wednesday), First dose (after last modification) on Wed06/11/25 at 0900, Until Discontinued 950 (Given - Provider: Yasemin Swann RN)160 (Given - Provider: Yasemin Swann RN) Losartan (COZAAR) tablet 50 mg 50 mg, Oral, DAILY, First dose (after last modification) on Wed06/11/25 at 0900, Until Discontinued 948 (Given - Provider: Nimisha Ulrich RN) 906 (Given - Provider: Yasemin Swann RN) 950 (Given - Provider: Yasemin Swann RN) Metoprolol succinate (TOPROL-XL) tablet XL 75 mg 75 mg, Oral, DAILY, First dose (after last modification) on Wed06/11/25 at 0900, Until Discontinued, Slow release product. Do not crush. Extended release can be cut in half. 948 (Given - Provider: Nimisha Ulrich RN) 906 (Given - Provider: Yasemin Swann RN) 950 (Given - Provider: Yasemin Swann RN) Mirtazapine (REMERON) tablet 7.5 mg 7.5 mg, Oral, DAILY AT BEDTIME, First dose (after last modification) on Wed06/11/25 at 2100, Until Discontinued 2050 (Given - Provider: Bruna Spangler RN) 2038 (Given - Provider: Marie Villatoro RN) Polyethylene glycol (MIRALAX) packet 17 g 17 g, Oral, DAILY, First dose on Wed06/11/25 at 1500, Until Discontinued 0950 (Not Given - Provider: Nimisha Ulrich RN - Reason: Patient/family refused) 0927 (Not Given - Provider: Yasemin Swann RN - Reason: Patient/family refused) 0951 (Not Given - Provider: Yasemin Swann RN - Reason: Patient/family refused) Spironolactone (ALDACTONE) tablet 25 mg 25 mg, Oral, DAILY EVERY MORNING, First dose (after last modification) on Wed06/11/25 at 0900, Until Discontinued, Max 400 mg/day. Do not crush, split or chew at bedside (hazardous drug). Contact pharmacy if alternate route or dose is needed. 48 (Given - Provider: Nimisha Ulrich RN) 906 (Given - Provider: Yasemin Swann RN) 51 (Given - Provider: Yasemin Swann RN) warfarin (COUMADIN) tablet 4 mg (CANCELED) 4 mg, Oral, DAILY, First dose (after last modification) on Wed06/15/25 at 1800, Until Discontinued, Swallow tablet whole; do not crush, split or chew. Contact pharmacy if alternate route or dose is needed. 1726 (Given - Provider: Nimisha Ulrich RN) 1700 (Given - Provider: Brii Goins RN) warfarin (COUMADIN) tablet 4 mg 4 mg, Oral, DAILY, First dose (after last modification) on Wed06/19/25 at 1800, Until Discontinued, Swallow tablet whole; do not crush, split or chew. Contact pharmacy if alternate route or dose is needed. PRN Medication Order 06/16/2025 06/17/2025 06/18/2025 Acetaminophen (TYLENOL) tablet 650 mg 650 mg, Oral, EVERY 6 HOURS NEEDED, Starting on Wed06/10/25 at 1741, Until Wed06/18/25 at 1957, Mild Pain, Oral temp > 100.4 F, Maximum dose of acetaminophen is 4000 mg from all sources in 24 hours. alum/mag hydrox.-simethicone oral suspension 30 mL 30 mL, Oral, EVERY 6 HOURS NEEDED, Starting on Wed06/10/25 at 1741, Until Wed06/18/25 at 1956, Indigestion, Per 5 mL is equivalent to: (Alum-Mag Hydroxide 200-225 mg and Simethicone 20 mg) and (Alum-Mag Hydroxide 200-200 mg and Simethicone 20 mg) Ondansetron (ZOFRAN) tablet 4 mg(Linked Group 2) 4 mg, Oral, EVERY 4 HOURS NEEDED, Starting on Wed06/10/25 at 174, Until Wed06/18/25 at 1956, Nausea / Vomiting Ondansetron 4mg/2ml (ZOFRAN) injection 4 mg(Linked Group 2) 4 mg, Intravenous, EVERY 6 HOURS NEEDED, Starting on Wed06/10/25 at 174, Until Wed06/18/25 at 1956, Nausea / Vomiting, Refractory Nausea Vomiting, if nausea and vomiting not relieved by Prochlorperazine. Linked Groups Order Group 1: Hydroxychloroquine (PLAQUENIL) tablet 200 mgJump to med 200 mg, Oral, CUSTOM FREQUENCY (Once per day on Wednesday), First dose (after last modification) on Wed06/12/25 at 0900, Until Discontinued And Hydroxychloroquine (PLAQUENIL) tablet 200 mgJump to med 200 mg, Oral, CUSTOM FREQUENCY (2 times per day on Wednesday), First dose (after last modification) on Wed06/11/25 at 0900, Until Discontinued Group 2: Ondansetron 4mg/2ml (ZOFRAN) injection 4 mgJump to med 4 mg, Intravenous, EVERY 6 HOURS NEEDED, Starting on Wed06/10/25 at 174, Until Wed06/18/25 at 1956, Nausea / Vomiting, Refractory Nausea Vomiting, if nausea and vomiting not relieved by Prochlorperazine. Or Ondansetron (ZOFRAN) tablet 4 mgJump to med 4 mg, Oral, EVERY 4 HOURS NEEDED, Starting on Wed06/10/25 at 174, Until Wed06/18/25 at 1956, Nausea / Vomiting Source Comments (unrecognize d section and content) In the event this informatio n is protected by the Federal Confidentiality of Alcohol and Drug Abuse Patient Records regulations: The Federal rules restrict any use of the information to criminally investigate or prosecute any alcohol or drug abuse patient.[facility] FOR RECORDS PERTAINING TO PATIENTS [...] BE BASED ON THE PRIMARY CLINICAL RECORDS. [facility] [employer] [facility]. provides no warranty or guarantee of the accuracy or completeness of information in this document.
[2025-06-24 11:41] LABS: Anion Gap 14.2; Blood Urea Nitrogen 26.0 mg/dL (7.0-18.0); Calcium 10.1 mg/dL (8.5-10.1); Carbon Dioxide 27.5 mmol/L (21.0-32.0); Chloride 108 mmol/L (98-107); Estimated GFR (African America >60 (>=60 mL/min/1.73m^2); Estimated GFR (Non-African Ame >60 (>=60 mL/min/1.73m^2); Glucose 102 mg/dL (74-106); Potassium 3.7 mmol/L (3.5-5.1); Sodium 146 mmol/L (136-145)
[2025-06-24 11:45] LABS: Basophils Abs Manual 0.00 10^3/uL (0.00-0.10); Basophils Percent Manual 0.0 % (0.2-2.0); Eosinophils Absolute Manual 0.00 10^3/uL (0.00-0.70); Eosinophils Percent Manual 0.0 % (0.9-7.0); Lymphocytes Absolute Manual 0.82 10^3/uL (1.20-3.80); Lymphocytes Percent Manual 11.0 % (20.5-60.0); Monocytes Absolute Manual 0.22 10^3/uL (0.30-0.80); Monocytes Percent Manual 3.0 % (1.7-12.0); Segmented Neut Absolute Manual 6.45 10^3/uL (1.4-6.5); Segmented Neutrophils % Manual 86.0 (43.0-75.0)
[2025-06-24] MEDS: FUROSEMIDE 20 MG/2 ML VIAL IVP (11:46)
[2025-06-24] MEDS: ALBUTEROL SULFATE 2.5 MG/3 ML VIAL NEB IH (11:50)
[2025-06-24 12:00] LABS: SARS-CoV-2 Ag NEGATIVE (NEGATIVE)
[2025-06-24 12:15] LABS: NT Pro B Type Natriuretic Pept 14719.0 pg/mL (<=1800.0)
--- NOTE | 2025-06-24 13:52 | CT_ITS ---
The [address] [address] Patient Name: NELLY QUIROZ MRN: [id number] date: 1935 Sex: M Assigned Patient Location: ER Current Patient Location: ER Accession/Order Number: [id number] Exam Date: 06/24/2025 14:42 Report Date: 06/24/2025 15:09 At the request of: KINGA RAY MD Procedure: CT head/brain wo con CT BRAIN WITHOUT CONTRAST: CLINICAL HISTORY: confusion, hx melanoma COMPARISON: 10/06/2021 TECHNIQUE: Contiguous axial unenhanced images were obtained through the brain. This CT exam was performed using one or more following dose reduction techniques: Automated exposure control, adjustment of the mA and/or kV according to patient size, or use of iterative reconstruction technique. FINDINGS: There is no evidence of midline shift, intra or extra-axial fluid collection, hemorrhage or CT evidence of acute large vascular distribution stroke. Central involutional changes and chronic small vessel ischemic disease. Cataract surgery Visualized paranasal sinuses are clear. The surrounding soft tissues are normal. CT/CT head/brain wo con IMPRESSION: NO ACUTE INTRACRANIAL ABNORMALITY. Impression dictated by: Scott Peters M.D. 06/24/2025 3:09 PM Dictation Location: [place] [address] Electronically authenticated by: [id number] Y Date: 06/24/2025 15:09
[2025-06-24] MEDS: DIAZEPAM 10 MG/2 ML SYRINGE 2.5 MG IV (14:03)
--- OUTSIDE RECORDS SUMMARY | 2025-06-24 16:52 | XMS_ITS | CCD ---
Author Organization [facility] Care Team Providers Care Job Molder Name Role Phone Unavailable Primary Care Provider Unavailabl e UMA DE PAZ Primary Care Unavailable RENEE JUDGE Attending Unavailable RENEE JUDGE Admitting Unavailable UMA DE PAZ Referring Unavailable Vinh Lawton Unavailable UMA DE PAZ Primary Care Physician DO Uma De Paz Primary Care Provider MD Michele Arteaga Attending Provider [phone] DO Uma De Paz Primary Care Provider [phone] MD Michele Arteaga Attending Provider Uma DeP az Unavailable WINTER ., DR ARCHIBALD Consult[employer] Unavailable [...] DO Uma De Paz Primary Care Provider [phone] MD Michele Arteaga Attending Provider MD Jose R Cruz Attending Provider [phone] DO Uma De Paz Primary Care Provider [phone] MD Michele Arteaga Attending Provider [phone] Unavailable Primary Care Provider UnavailUma Little DO Primary Care Provider DO Uma De Paz Primary Care Provider MD Elkin Holly Attending Provider MD Adilene Weinberg Attending Provider [phone] MD Elkin Holly Referring Provider [phone] DO Uma De Paz Primary Care Provider [...] Attending Provider MD Elkin Holly Referring Provider [phone] MD Michele Arteaga Attending Provider DO Uma De Paz Primary Care Provider MD Adilene Weinberg Attending Provider MD Elkin Holly Referring Provider Uma De Paz DO Primary Care Provider DO Uma De Paz Primary Care Provider MD Michele Arteaga Attending Provider MD Adilene Weinberg Attending Provider MD Elkin Holly Referring Provider Uma De Paz MD Primary Care Provider Leanna ESTER, Tereso Unavailable Uma De Paz DO Primary Care Provider Adilene Weinberg MD Attending Provider Elkin Holly MD Referring Provider Michele Arteaga MD Attending Provider Uma De Paz DO Primary Care Provider Michele Arteaga MD Attending Provider Adilene Weinberg MD Attending Provider [phone] Elkin Holly MD Referring Provider Adilene Weinberg MD Attending Provider Elkin Holly MD Referring Provider Uma De Paz DO Primary Care Provider Zandra HARMON, Uma Primary Care Provider Uma De Paz DO Attending Provider Adilene Weinberg MD Attending Provider Vladimir YATES-CKayley Attending Provider Dylon Kate MD, V Attending Provider Marvin ELECTROFORMER-CMaite Attending Provider [phone] Uma De Paz DO Primary Care Provider [...] Provider Jillian ARRIAGA, PhD, Duglas Schultz Unavailable [phone] Dylon Kate MD Unavailable [phone] Elkin Holly MD Unavailable [phone] Adilene Weinberg MD Unavailable BedRenee horvath DO Unavailable Cristela Winter MD Unavailable [phone] ELKIN HOLLY Admitting Unavailable ELKIN HOLLY Attending Unavailable UMA DE PAZ Primary Care Unavailable Jillian ARRIAGA, PhD, Duglas Schultz Unavailable Martita Agustin Unavailable Unavailable Cristela WINTRE Attending Unavailable Cristela WINTER Attending Unavailable Martita [...] Referring Unavailable NU, RENEE Referring Unavailable NU, ERNEE Referring Unavailable NU, RENEE Referring Unavailable NU, [...] (1 source) Latex Substance Allergy 4 Rash [facility] Penicillins (antibiotic) (1 source) Penicillins Drug Allergy 4 Swelling of the Eye [facility] (20 sources) Latex; Translations: [LATEX] Propensity to adverse reactions (disorder) 9 rash, Hives, Itching [facility] (20 sources) Penicillins; Translations: [penicillins] Drug allergy (disorder) 0 Swelling of the Eye [facility] (2 sources) Penicillin V Drug Allergy Unknown [place] Other (12 sources) Penicillin; Translations: [Penicillin] Drug Allergy Unknown [facility] (11 sources) Penicillins Drug Allergy 4 Other, Other: See Comments, Swelling, Unknown [facility] Work Phone: (20 sources) Penicillins Drug Allergy 4 Unknown [facility] (11 sources) Spironolactone; Translations: [SPIRONOLACTONE ] Drug Allergy 1 Dizziness [facility] (1 source) Penicillins Drug Allergy 4 Other [facility] (1 source) Penicillins Drug allergy (disorder) 5 [facility] Repository Medications Current Medications Medication Drug [...] day(s), # 90 tab(s), Refills(s) 3, Pharmacy: [facility], 178, cm, 05/22/24 8:45:00 EDT, Height/Length Dosing, 74, kg, 05/22/24 8:45:00 EDT, Weight Dosing Start Date: 11/29/24 Stop Date: 11/24/25 Status: Ordered Quantity: 90.0 Unit: tab(s) Repeat number: 4 Start: 12-22-2021 End: 11-21-2023 take 1 tablet by mouth once daily alfuzosin 10 mg ER Tab 10 mg = 1 tab(s), Oral, Daily, X 90 day(s), # 90 tab(s), Refills(s) 3, Pharmacy: [facility], 178, cm, 05/04/22 12:45:00 EDT, [...] Refills(s) 3 Start Date: 04/11/21 Status: Ordered Qqbwtnest-Dutsowrzat-dozc (O PDUALAG IV) (13 sources) Nivolumab-Relatl imab-rmbw [...] release tablet 5 mg polyethylene glycol 3350 23312 mg powder for oral solution (3 sources) [...] Tuberculosis Skin Test, Skin Test Antigen sennosides, alf 8.6 mg oral tablet (6 sources) Start: [...] 9:11am Start: 01-22-2023 take 1 capsule by [facility] twice daily Doxycycline Hyclate 100 MG 1 [...] with fruit juices. take 1 tablet by [facility] every twenty-four hours Fexofenadine HCl 60 [...] Daily, # 90 tab(s), Refills(s) 3, Pharmacy: [facility], 178, cm, 05/22/24 8:45:00 EDT, [...] times daily. Active take 2 tablets by [facility] twice daily metoprolol succinate 25 MG tablet XL Take 2 tablets by mouth 2 times daily. Suspended take 2 tablets by [facility] every twenty-four hours Metoprolol Succinate ER 50 [...] Date: 04/11/21 Status: Ordered Repeat number: 1 Du-20j-ujwhczewuqo (Lymphoseek) injection 0.992 millicurie (2 sources) Start: 10-28-2023 End: 10-28-2023 Fc-42b-scttnjnlcdn (Lymphoseek) injection 0.992 [facility] triamcinolone acetonide 40 [...] Start: 04-08-2020 take 1 capsule by mo [facility] once daily at mealtime Vitamin [...] 2 03-28-2020 Chronic Comment on above: Echo: [id number]%, BA E, RV dilated, RVSP 72, bioprosthetic [...] sources) Long-term current use of anticoagulant; Translations: [jail (current) use of anticoagulants] Episodic Other aftercare (5 sources) jail (current) use of anticoagulants; Translations: [[facility] CURRNT USE ANTICOAGULANTS] Onset: 3 Episodic Other aftercare (5 sources) Encounter for therapeutic drug level monitoring; Translations: [ENC THERAPEUTC DRUG LEVL MONITORING] Onset: 3 Episodic Other aftercare (2 sources) Other care home (current) drug therapy; Translations: [OTH [facility] CURRENT DRUG THERAPY] Onset: 2 Episodic Other aftercare (2 sources) Long-term current use of drug therapy; Translations: [Other care home (current) drug therapy] Episodic Other circulatory disease [...] Center Calcium [Mass/Vol] 9.2 mg/dL Normal 8.6-10.[address] [facility] Comment on above: Performed By: #### P TI #### [facility] (DEFAULT) [address] [place] [address] [id number] CBC AND ELECTRONIC DIFFon Basophils (Bld) [#/Vol] 0.05 10*3/uL 0.00 - 0.09 K/uL [facility] Basophils/100 WBC (Bld) 0.7 % [facility] Differential cell count method Nom (Bld) Electronic Differential [facility] Eosinophils (Bld) [#/Vol] 0.10 10*3/uL 0.00 - 0.48 K/uL [facility] Eosinophils/100 WBC (Bld) 1.3 % [facility] Erythrocyte distribution width (RBC) [Ratio] 14.2 % 10.9 - 14.3 % [facility] Hematocrit (Bld) [Volume fraction] 25.7 % Low 39.6 - 48.8 % [facility] Hemoglobin (Bld) [Mass/Vol] 8.0 g/dL Low 13.4 - 16.8 g/dL [facility] Immature granulocytes (Bld) [#/Vol] 0.07 10*3/uL NINF - 0.07 K/uL [facility] Immature granulocytes/100 WBC (Bld) 0.9 % [facility] Interpretation and review of laboratory results Abnormal [facility] Lymphocytes (Bld) [#/Vol] 0.71 10*3/uL Low 0.83 - 3.57 K/uL [facility] Lymphocytes/100 WBC (Bld) 9.2 % [facility] MCH (RBC) [Entitic mass] 29.6 pg 26.1 - 33.3 pg [facility] MCHC (RBC) [Mass/Vol] 31.1 g/dL Low 31.9 - 36.5 g/dL [facility] MCV (RBC) [Entitic vol] 95.2 fL High 79.0 - 94.5 fL [facility] Monocytes (Bld) [#/Vol] 1.02 10*3/uL High 0.24 - 0.93 K/uL [facility] Monocytes/100 WBC (Bld) 13.3 % O [facility] Neutrophils (Bld) [#/Vol] 5.74 10*3/uL 1.57 - 6.19 K/uL [facility] Nucleated RBC/100 WBC (Bld) [Ratio] 0.0 % NINF [facility] Platelet mean volume (Bld) [Entitic vol] 10.1 fL 8.7 - 12.3 fL [facility] Platelets (Bld) [#/Vol] 252 10*3/uL 146 - 337 K/uL [facility] RBC (Bld) [#/Vol] 2.70 10*6/uL Low [facility] Segmented neutrophils/100 WBC (Bld) 74.6 % [facility] WBC (Bld) [#/Vol] 7.69 10*3/uL 3.73 - 10.10 K/uL [facility] Basophils (Bld) [#/Vol] 0.05 10*3/uL Normal 0.00-0.09 [facility] Comment on above: Performed By: #### U LYTR UCRER #### [facility] (DEFAULT) [address] [place] [address] 57171 Basophils/100 WBC (Bld) 0.7 % Normal O [facility] Comment on above: Performed By: #### U LYTR UCRER #### [facility] (DEFAULT) [address] [place] [address] 57617 DIFF STATUS Electronic Differential Normal [facility] Comment on above: Performed By: #### U LYTR, UCRER #### [facility] (DEFAULT) [address] [place] [address] 44654 Eosinophils (Bld) [#/Vol] 0.10 10*3/uL Normal 0.00-0.48 [facility] Comment on above: Performed By: #### U LYTR, UCRER #### [facility] (DEFAULT) [address] [place] [address] 25128 Eosinophils/100 WBC (Bld) 1.3 % Normal [facility] Comment on above: Performed By: #### U LYTR, UCRER #### [facility] (DEFAULT) [address] [place] [address] 71190 Hematocrit (Bld) [Volume fraction] 25.7 % Low 39.6-48.8 [facility] Comment on above: Performed By: #### U LYTR, UCRER #### [facility] (DEFAULT) [address] [place] [address] 50890 Hemoglobin (Bld) [Mass/Vol] 8.0 g/dL Low 13.4-16.8 [facility] Comment on above: Performed By: #### U LYTR, UCRER #### [facility] (DEFAULT) [address] [place] [address] 74359 Immature Grans % 0.9 % Normal [facility] Comment on above: Performed By: #### U LYTR, UCRER #### [facility] (DEFAULT) [address] [place] [address] 39283 Immature Grans Absolute 0.07 K/uL Normal <=0.07 [facility] Comment on above: Performed By: #### U LYTR, UCRER #### [facility] (DEFAULT) [address] [place] [address] 43025 Lymphocytes (Bld) [#/Vol] 0.71 10*3/uL Low 0.83-3.57 [facility] Comment on above: Performed By: #### U LYTR, UCRER #### [facility] (DEFAULT) [address] [place] [address] 99678 Lymphocytes/100 WBC (Bld) 9.2 % Normal [facility] Comment on above: Performed By: #### U LYTR, UCRER #### [facility] (DEFAULT) [address] [place] [address] 30373 MCV (RBC) [Entitic vol] 95.2 fL High 79.0-94.5 [facility] Comment on above: Performed By: #### U LYTR, UCRER #### [facility] (DEFAULT) [address] [place] [address] 61780 Mean Cell Hgb 29.6 pg Normal 26.1-33.3 [facility] Comment on above: Performed By: #### U LYTR, UCRER #### [facility] (DEFAULT) [address] [place] [address] 26934 Mean Cell Hgb Conc 31.1 g/dL Low 31.9-36.[address] [facility] Comment on above: Performed By: #### U LYTR, UCRER #### [facility] (DEFAULT) [address] [place] [address] 00526 Monocytes (Bld) [#/Vol] 1.02 10*3/uL High 0.24-0.93 [facility] Comment on above: Performed By: #### U LYTR, UCRER #### [facility] (DEFAULT) [address] [place] [address] 33309 Monocytes/100 WBC (Bld) 13.3 % Normal [facility] Comment on above: Performed By: #### U LYTR, UCRER #### [facility] (DEFAULT) [address] [place] [address] 81147 Nucleated RBC 0.0 /100 WBC Normal <=0.2 [facility] Comment on above: Performed By: #### U LYTR, UCRER #### [facility] (DEFAULT) [address] [place] [address] 80134 Platelet mean volume (Bld) [Entitic vol] 10.1 fL Normal 8.7-12.3 [facility] Comment on above: Performed By: #### U LYTR, UCRER #### [facility] (DEFAULT) [address] [place] [address] 82376 Platelets (Bld) [#/Vol] 252 10*3/uL Normal 146-337 [facility] Comment on above: Performed By: #### U LYTR, UCRER #### [facility] (DEFAULT) [address] [place] [address] 43975 RBC (Bld) [#/Vol] 2.70 10*6/uL Low 4.38-5.83 [facility] Comment on above: Performed By: #### U LYTR UCRER #### [facility] (DEFAULT) [address] [place] [address] 51687 RBC Distribution 14.2 % Normal 10.9-14.3 [facility] Comment on above: Performed By: #### U LYTR, UCRER #### [facility] (DEFAULT) [address] [place] [address] 78549 Segs + Bands Auto 74.6 % Normal [facility] Comment on above: Performed By: #### U LYTR, UCRER #### [facility] (DEFAULT) [address] [place] [address] 01339 Segs + Bands,Absolute Auto 5.74 K/uL Normal 1.57-6.19 [facility] Comment on above: Performed By: #### U LYTR, UCRER #### [facility] (DEFAULT) [address] [place] [address] 22715 WBC (Bld) [#/Vol] 7.69 10*3/uL Normal 3.73-10.10 [facility] Comment on above: Performed By: #### U LYTR, UCRER #### [facility] (DEFAULT) [address] [place] [address] 71539 CHEM 7 (LYTES,BUN,CREA,GLUC) on 06-18-2025 Anion gap [Moles/Vol] 17 mmol/L 7 - 17 mmol/L [facility] Chloride [Moles/Vol] 104 mmol/L 98 - 10 8 mmol/L [facility] CO2 [Moles/Vol] 23 mmol/L 21 - 31 mmol/L [facility] Creatinine [Mass/Vol] 1.08 mg/dL 0.70 - 1.30 mg/dL [facility] eGFR, CKD-EPI, Male 68 - PINF [facility] Comment on above: Reported eGFR is bas ed on the CKD-EPI 2020 equation using creatinine, age, and sex. Glucose [Mass/Vol] 110 mg/dL 70 - 179 mg/dL [facility] Osmolality Calc [Osmolality] 297 [facility] Potassium [Moles/Vol] 3.9 mmol/L 3.5 - 5.0 mmol/L [facility] Sodium [Moles/Vol] 140 mmol/L 135 - 145 mmol/L [facility] Urea nitrogen [Mass/Vol] 22 mg/dL 7 - 25 mg/dL [facility] Urea nitrogen/Creatinine [Mass ratio] 20 mg/mg [facility] Anion gap [Moles/Vol] 17 mmol/L Normal 7-17 [facility] Comment on above: Performed By: #### P TI #### [facility] (DEFAULT) [address] [place] [address] 43465 Chloride [Moles/Vol] 104 mmol/L Normal 98-108 [facility] Comment on above: Performed By: #### P TI #### [facility] (DEFAULT) [address] [place] [address] 58711 CO2 [Moles/Vol] 23 mmol/L Normal 21-31 [facility] Comment on above: Performed By: #### P TI #### [facility] (DEFAULT) [address] [place] [address] 73369 Creatinine [Mass/Vol] 1.08 mg/dL Normal 0.70-1.30 [facility] Comment on above: Performed By: #### P TI #### [facility] (DEFAULT) [address] [place] [address] 07162 GFR/1.73 sq M.predicted among non-blacks MDRD (S/P/Bld) [Vol rate/Area] 66 mL/min/{1.73_m2} Normal >=60 [facility] Comment on above: Result Comment: Repo rted eGFR is based on the CKD-EPI 2020 equation using creatinine, age, and sex. Performed By: #### P TI #### [facility] (DEFAULT) [address] [place] [address] 98193 Glucose [Mass/Vol] 110 mg/dL Normal Nonfastin -179 mg/dL; Fastin-99 [facility] Comment on above: Performed By: #### P TI #### [facility] (DEFAULT) [address] [place] [address] 96602 Osmolality [Osmolality] 297 mosm/kg Normal 278-305 [facility] Comment on above: Performed By: #### P TI #### [facility] (DEFAULT) [address] [place] [address] 61248 Potassium [Moles/Vol] 3.9 mmol/L Normal 3.5-5.0 [facility] Comment on above: Performed By: #### P TI #### [facility] (DEFAULT) [address] [place] [address] 15935 Sodium [Moles/Vol] 140 mmol/L Normal 135-[address] [facility] Comment on above: Performed By: #### P TI #### [facility] (DEFAULT) [address] [place] [address] 64764 Urea nitrogen [Mass/Vol] 22 mg/dL Normal 7-25 [facility] Comment on above: Performed By: #### P TI #### [facility] (DEFAULT) [address] [place] [address] 42131 Urea nitrogen/Creatinine [Mass ratio] 20 mg/mg Normal [facility] Comment on above: Performed By: #### P TI #### [facility] (DEFAULT) [address] [place] [address] 47323 MAGNESIUMon 06-18-2025 Magnesium [Mass/Vol] 1.8 mg/dL 1.6 - 2 .6 mg/dL [facility] Magnesium [Mass/Vol] 1.8 mg/dL Normal 1.6-2.6 [facility] Comment on above: Performed By: #### P TI #### [facility] (DEFAULT) [address] [place] [address] 96735 No Panel Informationon 06-18 Interpretation and review of laboratory results Normal [facility] PHOSPHATE, INORGANICon 06-18 Phosphate [Mass/Vol] 3.6 mg/dL 2.2 - 4 .6 mg/dL [facility] Phosphorous 3.6 mg/dL Normal 2.2-4.6 [facility] Comment on above: Performed By: #### P TI #### [facility] (DEFAULT) [address] [place] [address] 73014 PROTIME-INRon 06-18-2025 INR Coag (Bld) [Relative time] 2.8 {INR} High 0.9 - 1.1 [facility] Interpretation and review of laboratory results Abnormal [facility] PT Coag (PPP) [Time] 29.6 s High [facility] INR Coag (PPP) [Relative time] 2.8 {INR} High 0.9-1.1 [facility] Comment on above: Order Comment: Ongoi ng: Daily until INR is therapeutic for 2 consecutive days, then every 2 days for 14 days or until discharged. Performed By: #### C A, CHM7, IPB, T3RIA, MGO #### [facility] (DEFAULT) [address] [place] [address] 86070 PT Coag (PPP) [Time] 29.6 s High 11.9-14.2 [facility] Comment on above: Order Comment: Ongoi ng: Daily until INR is therapeutic for 2 consecutive days, then every 2 days for 14 days or until discharged. Performed By: #### C A, CHM7, IPB, T3RIA, MGO #### [facility] (DEFAULT) [address] [place] [address] 70453 T4 FREEon 06-18-2025 Free T4 [Mass/Vol] 3.49 ng/dL High 0.89 - 1. 76 ng/dL [facility] Interpretation and review of laboratory results Abnormal [facility] Free T4 [Mass/Vol] 3.49 ng/dL High 0.89-1.[address] [facility] Comment on above: Performed By: #### P TI #### [facility] (DEFAULT) [address] [place] [address] 83874 TSH W/FT4 REFLEXon Interpretation and review of laboratory results Abnormal [facility] TSH Qn 0.010 m[IU]/L Low [facility] TSH 0.010 uIU/mL Low 0.550-4.780 [facility] Comment on above: Performed By: #### C Kelly, CHM7, IPB, T3RIA, MGO #### [facility] (DEFAULT) [address] [place] [address] 17465 CALCIUMon 06-17-2025 Calcium [Mass/Vol] 9.4 mg/dL 8.6 - 10. 5 mg/dL [facility] Calcium [Mass/Vol] 9.4 mg/dL Normal 8.6-10.[address] [facility] Comment on above: Performed By: #### U LYTR, UCRER #### [facility] (DEFAULT) [address] [place] [address] 15277 CBC AND ELECTRONIC DIFFon Basophils (Bld) [#/Vol] 0.05 10*3/uL 0.00 - 0.09 K/uL [facility] Basophils/100 WBC (Bld) 0.6 % [facility] Differential cell count method Nom (Bld) Electronic Differential [facility] Eosinophils (Bld) [#/Vol] 0.07 10*3/uL 0.00 - 0.48 K/uL [facility] Eosinophils/100 WBC (Bld) 0.9 % [facility] Erythrocyte distribution width (RBC) [Ratio] 14.2 % 10.9 - 14.3 % [facility] Hematocrit (Bld) [Volume fraction] 26.3 % Low 39.6 - 48.8 % [facility] Hemoglobin (Bld) [Mass/Vol] 8.2 g/dL Low 13.4 - 16.8 g/dL [facility] Immature granulocytes (Bld) [#/Vol] 0.06 10*3/uL NINF - 0.07 K/uL [facility] Immature granulocytes/100 WBC (Bld) 0.8 % [facility] Interpretation and review of laboratory results Abnormal [facility] Lymphocytes (Bld) [#/Vol] 0.55 10*3/uL Low 0.83 - 3.57 K/uL [facility] Lymphocytes/100 WBC (Bld) 6.9 % [facility] MCH (RBC) [Entitic mass] 29.9 pg 26.1 - 33.3 pg [facility] MCHC (RBC) [Mass/Vol] 31.2 g/dL Low 31.9 - 36.5 g/dL [facility] MCV (RBC) [Entitic vol] 96.0 fL High 79.0 - 94.5 fL [facility] Monocytes (Bld) [#/Vol] 0.97 10*3/uL High 0.24 - 0.93 K/uL [facility] Monocytes/100 WBC (Bld) 12.1 % [facility] Neutrophils (Bld) [#/Vol] 6.29 10*3/uL High 1.57 - 6.19 K/uL [facility] Nucleated RBC/100 WBC (Bld) [Ratio] 0.0 % [facility] Platelet mean volume (Bld) [Entitic vol] 9.9 fL 8.7 - 12.3 fL [facility] Platelets (Bld) [#/Vol] 229 10*3/uL 146 - 337 K/uL [facility] RBC (Bld) [#/Vol] 2.74 10*6/[facility] WBC (Bld) 78.7 % [facility] WBC (Bld) [#/Vol] 7.99 10*3/uL 3.73 - 10.10 K/uL [facility] Basophils (Bld) [#/Vol] 0.05 10*3/uL Normal 0.00-0.09 [facility] Comment on above: Performed By: #### C A, CHM7, IPB, T3RIA, MGO #### [facility] (DEFAULT) [address] [place] [address] 09510 Basophils/100 WBC (Bld) 0.6 % Normal [facility] Comment on above: Performed By: #### C A, CHM7, IPB, T3RIA, MGO #### [facility] (DEFAULT) [address] [place] [address] 77997 DIFF STATUS Electronic Differential Normal [facility] Comment on above: Performed By: #### C A, CHM7, IPB, T3RIA, MGO #### [facility] (DEFAULT) [address] [place] [address] 60143 Eosinophils (Bld) [#/Vol] 0.07 10*3/uL Normal 0.00-0.48 [facility] Comment on above: Performed By: #### C A, CHM7, IPB, T3RIA, MGO #### [facility] (DEFAULT) [address] [place] [address] 63070 Eosinophils/100 WBC (Bld) 0.9 % Normal [facility] Comment on above: Performed By: #### C A, CHM7, IPB, T3RIA, MGO #### [facility] (DEFAULT) [address] [place] [address] 08613 Hematocrit (Bld) [Volume fraction] 26.3 % Low 39.6-48.8 [facility] Comment on above: Performed By: #### C A, CHM7, IPB, T3RIA, MGO #### [facility] (DEFAULT) [address] [place] [address] 09080 Hemoglobin (Bld) [Mass/Vol] 8.2 g/dL Low 13.4-16.8 [facility] Comment on above: Performed By: #### C A, CHM7, IPB, T3RIA, MGO #### [facility] (DEFAULT) [address] [place] [address] 83038 Immature Grans % 0.8 % Normal [facility] Comment on above: Performed By: #### Antoine A, CHM7, IPB, T3RIA, MGO #### [facility] (DEFAULT) [address] [place] [address] [id number] Immature Grans Absolute 0.06 K/uL Normal <=0.07 [facility] Comment on above: Performed By: #### C A, CHM7, IPB, T3RIA, MGO #### [facility] (DEFAULT) [address] [place] [address] 21454 Lymphocytes (Bld) [#/Vol] 0.55 10*3/uL Low 0.83-3.57 [facility] Comment on above: Performed By: #### C A, CHM7, IPB, T3RIA, MGO #### [facility] (DEFAULT) [address] [place] [address] 81276 Lymphocytes/100 WBC (Bld) 6.9 % Normal [facility] Comment on above: Performed By: #### C A, CHM7, IPB, T3RIA, MGO #### [facility] (DEFAULT) [address] [place] [address] 76977 MCV (RBC) [Entitic vol] 96.0 fL High 79.0-94.5 [facility] Comment on above: Performed By: #### Antoine Mendoza, CHM7, IPB, T3RIA, MGO #### [facility] (DEFAULT) [address] [place] [address] 21639 Mean Cell Hgb 29.9 pg Normal 26.1-33.3 [facility] Comment on above: Performed By: #### Antoine Mendoza, CHM7, IPB, T3RIA, MGO #### [facility] (DEFAULT) [address] [place] [address] 28194 Mean Cell Hgb Conc 31.2 g/dL Low 31.9-36.[address] [facility] Comment on above: Performed By: #### Antoine Mendoza, CHM7, IPB, T3RIA, MGO #### [facility] (DEFAULT) [address] [place] [address] 39908 Monocytes (Bld) [#/Vol] 0.97 10*3/uL High 0.24-0.93 [facility] Comment on above: Performed By: #### Antoine Mendoza, CHM7, IPB, T3RIA, MGO #### [facility] (DEFAULT) [address] [place] [address] 33605 Monocytes/100 WBC (Bld) 12.1 % Normal [facility] Comment on above: Performed By: #### C Kelly, CHM7, IPB, T3RIA, MGO #### [facility] (DEFAULT) [address] [place] [address] 97548 Nucleated RBC 0.0 /100 WBC Normal <=0.2 [facility] Comment on above: Performed By: #### C A, CHM7, IPB, T3RIA, MGO #### [facility] (DEFAULT) [address] [place] [address] 86931 Platelet mean volume (Bld) [Entitic vol] 9.9 fL Normal 8.7-12.3 [facility] Comment on above: Performed By: #### C A, CHM7, IPB, T3RIA, MGO #### [facility] (DEFAULT) [address] [place] [address] 95217 Platelets (Bld) [#/Vol] 229 10*3/uL Normal 146-337 [facility] Comment on above: Performed By: #### C A, CHM7, IPB, T3RIA, MGO #### [facility] (DEFAULT) [address] [place] [address] 19721 RBC (Bld) [#/Vol] 2.74 10*6/uL Low 4.38-5.83 [facility] Comment on above: Performed By: #### C A, CHM7, IPB, T3RIA, MGO #### [facility] (DEFAULT) [address] [place] [address] 37707 RBC Distribution 14.2 % Normal 10.9-14.3 [facility] Comment on above: Performed By: #### C A, CHM7, IPB, T3RIA, MGO #### [facility] (DEFAULT) [address] [place] [address] 59897 Segs + Bands Auto 78.7 % Normal [facility] Comment on above: Performed By: #### C A, CHM7, IPB, T3RIA, MGO #### [facility] (DEFAULT) [address] [place] [address] 09382 Segs + Bands,Absolute Auto 6.29 K/uL High 1.57-6.19 [facility] Comment on above: Performed By: #### C A, CHM7, IPB, T3RIA, MGO #### [facility] (DEFAULT) [address] [place] [address] 88177 WBC (Bld) [#/Vol] 7.99 10*3/uL Normal 3.73-10.10 [facility] Comment on above: Performed By: #### C A, CHM7, IPB, T3RIA, MGO #### [facility] (DEFAULT) [address] [place] [address] CHEM 7 (LYTES,BUN,CREA,GLUC) on 06-17-2025 Anion gap [Moles/Vol] 17 mmol/L 7 - 17 mmol/L [facility] Chloride [Moles/Vol] 105 mmol/L 98 - 10 8 mmol/L [facility] CO2 [Moles/Vol] 22 mmol/L 21 - 31 mmol/L [facility] Creatinine [Mass/Vol] 1.14 mg/dL 0.70 - 1.30 mg/dL [facility] eGFR, CKD-EPI, Male 64 - PINF [facility] Comment on above: Reported eGFR is bas ed on the CKD-EPI 2020 equation using creatinine, age, and sex. Glucose [Mass/Vol] 108 mg/dL 70 - 179 mg/dL [facility] Osmolality Calc [Osmolality] 297 [facility] Potassium [Moles/Vol] 3.8 mmol/L 3.5 - 5.0 mmol/L [facility] Sodium [Moles/Vol] 140 mmol/L 135 - 145 mmol/L [facility] Urea nitrogen [Mass/Vol] 24 mg/dL 7 - 25 mg/dL [facility] Urea nitrogen/Creatinine [Mass ratio] 21 mg/mg [facility] Anion gap [Moles/Vol] 17 mmol/L Normal 7-17 [facility] Comment on above: Performed By: #### U LYWILLIS UCRER #### [facility] (DEFAULT) [address] [place] [address] Chloride [Moles/Vol] 105 mmol/L Normal 98-108 [facility] Comment on above: Performed By: #### U LYWILLIS UCRER #### [facility] (DEFAULT) [address] [place] [address] CO2 [Moles/Vol] 22 mmol/L Normal 21-31 [facility] Comment on above: Performed By: #### U LYTR UCRER #### [facility] (DEFAULT) [address] [place] [address] 24228 Creatinine [Mass/Vol] 1.14 mg/dL Normal 0.70-1.30 [facility] Comment on above: Performed By: #### U LYTR UCRER #### [facility] (DEFAULT) [address] [place] [address] 22702 GFR/1.73 sq M.predicted among non-blacks MDRD (S/P/Bld) [Vol rate/Area] 62 mL/min/{1.73_m2} Normal >=60 [facility] Comment on above: Result Comment: Repo rted eGFR is based on the CKD-EPI 2020 equation using creatinine, age, and sex. Performed By: #### U LYWILLIS UCRER #### [facility] (DEFAULT) [address] [place] [address] 09504 Glucose [Mass/Vol] 108 mg/dL Normal Nonfastin -179 mg/dL; Fastin-99 [facility] Comment on above: Performed By: #### U LYWILLIS UCRER #### [facility] (DEFAULT) [address] [place] [address] 14670 Osmolality [Osmolality] 297 mosm/kg Normal 278-305 [facility] Comment on above: Performed By: #### U LYWILLIS UCRER #### [facility] (DEFAULT) [address] [place] [address] 12818 Potassium [Moles/Vol] 3.8 mmol/L Normal 3.5-5.0 [facility] Comment on above: Performed By: #### U LYTR UCRER #### [facility] (DEFAULT) [address] [place] [address] 43215 Sodium [Moles/Vol] 140 mmol/L Normal 135-[address] [facility] Comment on above: Performed By: #### U LYTR UCRER #### [facility] (DEFAULT) [address] [place] [address] Urea nitrogen [Mass/Vol] 24 mg/dL Normal 7-25 [facility] Comment on above: Performed By: #### LYSSA STAFFORDRER #### [facility] (DEFAULT) [address] [place] [address] Urea nitrogen/Creatinine [Mass ratio] 21 mg/mg Normal [facility] Comment on above: Performed By: #### U JAMES UCRER #### [facility] (DEFAULT) [address] [place] [address] HEAD WITHOUT CONTRASTon 0 06-17-2025 CT [...] have reviewed and approved this report. Normal [facility] CT Head WO contraston 2024 IMPRESSION: Stable [...] I have reviewed and approved this report. [facility] Radiology Study observation (narrative) [facility] Head WO contrastOrdered B y: Danyelle Sykes on 06-17-2025 [facility] Work Phone: MAGNESIUMon 06-17-2025 Magnesium [Mass/Vol] 1.9 mg/dL 1.6 - 2 .6 mg/dL [facility] Magnesium [Mass/Vol] 1.9 mg/dL Normal 1.6-2.6 [facility] Comment on above: Performed By: #### U LYTR, UCRER #### [facility] (DEFAULT) [address] [place] [address] No Panel Informationon 06-17 Interpretation and review of laboratory results Normal [facility] PHOSPHATE, INORGANICon 06-17 Phosphate [Mass/Vol] 3.7 mg/dL 2.2 - 4 .6 mg/dL [facility] Phosphorous 3.7 mg/dL Normal 2.2-4.6 [facility] Comment on above: Performed By: #### Zamzam RAMIREZ, UCRER #### [facility] (DEFAULT) [address] [place] [address] 92541 PROTIME-INRon 06-17-2025 INR Coag (Bld) [Relative time] 2.3 {INR} High 0.9 - 1.1 [facility] Interpretation and review of laboratory results Abnormal [facility] PT Coag (PPP) [Time] 25.7 s High [facility] INR Coag (PPP) [Relative time] 2.3 {INR} High 0.9-1.1 [facility] Comment on above: Order Comment: The r eference range has not been established for random urine specimens. The test result should be integrated into the clinical context for interpretation. Performed By: #### Zamzam RAMIREZ UCRER #### [facility] (DEFAULT) [address] [place] [address] 97249 PT Coag (PPP) [Time] 25.7 s High 11.9-14.2 [facility] Comment on above: Order Comment: The r eference range has not been established for random urine specimens. The test result should be integrated into the clinical context for interpretation. Performed By: #### Zamzam RAMIREZ UCRER #### [facility] (DEFAULT) [address] [place] [address] 67604 CALCIUMon 06-16-2025 Calcium [Mass/Vol] 8.7 mg/dL 8.6 - 10. 5 mg/dL [facility] Calcium [Mass/Vol] 8.7 mg/dL Normal 8.6-10.[address] [facility] Comment on above: Performed By: #### C A, CHM7, IPB, T3RIA, MGO #### [facility] (DEFAULT) [address] [place] [address] 98154 CBC AND ELECTRONIC DIFFon Basophils (Bld) [#/Vol] K/uL 0.00 - 0.09 K/uL [facility] Basophils/100 WBC (Bld) 0.4 % O [facility] Differential cell count method Nom (Bld) Electronic Differential [facility] Eosinophils (Bld) [#/Vol] 0.09 10*3/uL 0.00 - 0.48 K/uL [facility] Eosinophils/100 WBC (Bld) 1.3 % [facility] Erythrocyte distribution width (RBC) [Ratio] 14.2 % 10.9 - 14.3 % [facility] Hematocrit (Bld) [Volume fraction] 23.3 % Low 39.6 - 48.8 % [facility] Hemoglobin (Bld) [Mass/Vol] 7.4 g/dL Low 13.4 - 16.8 g/dL [facility] Immature granulocytes (Bld) [#/Vol] 0.04 10*3/uL NINF - 0.07 K/uL [facility] Immature granulocytes/100 WBC (Bld) 0.6 % [facility] Interpretation and review of laboratory results Abnormal [facility] Lymphocytes (Bld) [#/Vol] 0.58 10*3/uL Low 0.83 - 3.57 K/uL [facility] Lymphocytes/100 WBC (Bld) 8.6 % [facility] MCH (RBC) [Entitic mass] 30.1 pg 26.1 - 33.3 pg [facility] MCHC (RBC) [Mass/Vol] 31.8 g/dL Low 31.9 - 36.5 g/dL [facility] MCV (RBC) [Entitic vol] 94.7 fL High 79.0 - 94.5 fL [facility] Monocytes (Bld) [#/Vol] 0.96 10*3/uL High 0.24 - 0.93 K/uL [facility] Monocytes/100 WBC (Bld) 14.3 % O [facility] Neutrophils (Bld) [#/Vol] 5.01 10*3/uL 1.57 - 6.19 K/uL [facility] Nucleated RBC/100 WBC (Bld) [Ratio] 0.0 % NINF [facility] Platelet mean volume (Bld) [Entitic vol] 10.3 fL 8.7 - 12.3 fL [facility] Platelets (Bld) [#/Vol] 212 10*3/uL 146 - 337 K/uL [facility] RBC (Bld) [#/Vol] 2.46 10*6/uL Low [facility] Segmented neutrophils/100 WBC (Bld) 74.8 % [facility] WBC (Bld) [#/Vol] 6.71 10*3/uL 3.73 - 10.10 K/uL [facility] Abs Baso Auto < Normal 0.00-0.09 [facility] Comment on above: Performed By: #### P TI #### [facility] (DEFAULT) [address] [place] [address] 54649 Basophils/100 WBC (Bld) 0.4 % Normal [facility] Comment on above: Performed By: #### P TI #### [facility] (DEFAULT) [address] [place] [address] 85925 DIFF STATUS Electronic Differential Normal [facility] Comment on above: Performed By: #### P TI #### [facility] (DEFAULT) [address] [place] [address] 90618 Eosinophils (Bld) [#/Vol] 0.09 10*3/uL Normal 0.00-0.48 [facility] Comment on above: Performed By: #### P TI #### [facility] (DEFAULT) [address] [place] [address] 19858 Eosinophils/100 WBC (Bld) 1.3 % Normal [facility] Comment on above: Performed By: #### P TI #### [facility] (DEFAULT) [address] [place] [address] 93939 Hematocrit (Bld) [Volume fraction] 23.3 % Low 39.6-48.8 [facility] Comment on above: Performed By: #### P TI #### [facility] (DEFAULT) [address] [place] [address] 22880 Hemoglobin (Bld) [Mass/Vol] 7.4 g/dL Low 13.4-16.8 [facility] Comment on above: Performed By: #### P TI #### [facility] (DEFAULT) [address] [place] [address] 34894 Immature Grans % 0.6 % Normal [facility] Comment on above: Performed By: #### P TI #### [facility] (DEFAULT) [address] [place] [address] 30438 Immature Grans Absolute 0.04 K/uL Normal <=0.07 [facility] Comment on above: Performed By: #### P TI #### [facility] (DEFAULT) [address] [place] [address] 52477 Lymphocytes (Bld) [#/Vol] 0.58 10*3/uL Low 0.83-3.57 [facility] Comment on above: Performed By: #### P TI #### [facility] (DEFAULT) [address] [address] Lymphocytes/100 WBC (Bld) 8.6 % Normal [facility] Comment on above: Performed By: #### P TI #### [facility] (DEFAULT) [address] [address] MCV (RBC) [Entitic vol] 94.7 fL High 79.0-94.5 [facility] Comment on above: Performed By: #### P TI #### [facility] (DEFAULT) [address] [address]39 Mean Cell Hgb 30.1 pg Normal 26.1-33.3 [facility] Comment on above: Performed By: #### P TI #### [facility] (DEFAULT) [address] [address] Mean Cell Hgb Conc 31.8 g/dL Low 31.9-36.[address] [facility] Comment on above: Performed By: #### P TI #### [facility] (DEFAULT) [address] [address] Monocytes (Bld) [#/Vol] 0.96 10*3/uL High 0.24-0.93 [facility] Comment on above: Performed By: #### P TI #### [facility] (DEFAULT) [address] [address] Monocytes/100 WBC (Bld) 14.3 % Normal [facility] Comment on above: Performed By: #### P TI #### [facility] (DEFAULT) [address] [address] Nucleated RBC 0.0 /100 WBC Normal <=0.2 [facility] Comment on above: Performed By: #### P TI #### [facility] (DEFAULT) [address] [address] Platelet mean volume (Bld) [Entitic vol] 10.3 fL Normal 8.7-12.3 [facility] Comment on above: Performed By: #### P TI #### [facility] (DEFAULT) [address] [address] Platelets (Bld) [#/Vol] 212 10*3/uL Normal 146-337 [facility] Comment on above: Performed By: #### P TI #### [facility] (DEFAULT) [address] [address] RBC (Bld) [#/Vol] 2.46 10*6/uL Low 4.38-5.83 [facility] Comment on above: Performed By: #### P TI #### [facility] (DEFAULT) [address] [address] RBC Distribution 14.2 % Normal 10.9-14.3 [facility] Comment on above: Performed By: #### P TI #### [facility] (DEFAULT) [address] [place] [address] 40538 Segs + Bands Auto 74.8 % Normal [facility] Comment on above: Performed By: #### P TI #### [facility] (DEFAULT) [address] [place] [address] Segs + Bands,Absolute Auto 5.01 K/uL Normal 1.57-6.19 [facility] Comment on above: Performed By: #### P TI #### [facility] (DEFAULT) [address] [place] [address] 77118 WBC (Bld) [#/Vol] 6.71 10*3/uL Normal 3.73-10.10 [facility] Comment on above: Performed By: #### P TI #### [facility] (DEFAULT) [address] [place] [address] 65898 CHEM 7 (LYTES,BUN,CREA,GLUC) on 06-16-2025 Anion gap [Moles/Vol] 13 mmol/L 7 - 17 mmol/L [facility] Chloride [Moles/Vol] 105 mmol/L 98 - 10 8 mmol/L [facility] CO2 [Moles/Vol] 26 mmol/L 21 - 31 mmol/L [facility] Creatinine [Mass/Vol] 1.09 mg/dL 0.70 - 1.30 mg/dL [facility] eGFR, CKD-EPI, Male 68 - PINF [facility] Comment on above: Reported eGFR is bas ed on the CKD-EPI 2020 equation using creatinine, age, and sex. Glucose [Mass/Vol] 101 mg/dL 70 - 179 mg/dL [facility] Osmolality Calc [Osmolality] 295 [facility] Potassium [Moles/Vol] 3.8 mmol/L 3.5 - 5.0 mmol/L [facility] Sodium [Moles/Vol] 140 mmol/L 135 - 145 mmol/L [facility] Urea nitrogen [Mass/Vol] 21 mg/dL 7 - 25 [facility]/Creatinine [Mass ratio] 19 mg/mg [facility] Anion gap [Moles/Vol] 13 mmol/L Normal 7-17 [facility] Comment on above: Performed By: #### C A, CHM7, IPB, T3RIA, MGO #### [facility] (DEFAULT) [address] [place] [address] 00912 Chloride [Moles/Vol] 105 mmol/L Normal 98-108 [facility] Comment on above: Performed By: #### C A, CHM7, IPB, T3RIA, MGO #### [facility] (DEFAULT) [address] [place] [address] 40475 CO2 [Moles/Vol] 26 mmol/L Normal 21-31 [facility] Comment on above: Performed By: #### C Kelly, CHM7, IPB, T3RIA, MGO #### [facility] (DEFAULT) [address] [place] [address] 26361 Creatinine [Mass/Vol] 1.09 mg/dL Normal 0.70-1.30 [facility] Comment on above: Performed By: #### C Kelly, CHM7, IPB, T3RIA, MGO #### [facility] (DEFAULT) [address] [place] [address] 90468 GFR/1.73 sq M.predicted among non-blacks MDRD (S/P/Bld) [Vol rate/Area] 66 mL/min/{1.73_m2} Normal >=60 [facility] Comment on above: Result Comment: Repo rted eGFR is based on the CKD-EPI 2020 equation using creatinine, age, and sex. Performed By: #### C A, CHM7, IPB, T3RIA, MGO #### [facility] (DEFAULT) [address] [place] [address] 23799 Glucose [Mass/Vol] 101 mg/dL Normal Nonfastin -179 mg/dL; Fastin-99 [facility] Comment on above: Performed By: #### C A, CHM7, IPB, T3RIA, MGO #### [facility] (DEFAULT) [address] [place] [address] 92537 Osmolality [Osmolality] 295 mosm/kg Normal 278-305 [facility] Comment on above: Performed By: #### C A, CHM7, IPB, T3RIA, MGO #### [facility] (DEFAULT) [address] [place] [address] 64252 Potassium [Moles/Vol] 3.8 mmol/L Normal 3.5-5.0 [facility] Comment on above: Performed By: #### C Kelly, CHM7, IPB, T3RIA, MGO #### [facility] (DEFAULT) [address] [place] [address] 81309 Sodium [Moles/Vol] 140 mmol/L Normal 135-[address] [facility] Comment on above: Performed By: #### C Kelly, CHM7, IPB, T3RIA, MGO #### [facility] (DEFAULT) [address] [place] [address] 80994 Urea nitrogen [Mass/Vol] 21 mg/dL Normal 7-25 [facility] Comment on above: Performed By: #### C Kelly, CHM7, IPB, T3RIA, MGO #### [facility] (DEFAULT) [address] [place] [address] 18966 Urea nitrogen/Creatinine [Mass ratio] 19 mg/mg Normal [facility] Comment on above: Performed By: #### C A, CHM7, IPB, T3RIA, MGO #### [facility] (DEFAULT) [address] [place] [address] 23128 MAGNESIUMon 06-16-2025 Magnesium [Mass/Vol] 1.9 mg/dL 1.6 - 2 .6 mg/dL [facility] Magnesium [Mass/Vol] 1.9 mg/dL Normal 1.6-2.6 [facility] Comment on above: Performed By: #### C A, CHM7, IPB, T3RIA, MGO #### [facility] (DEFAULT) [address] [place] [address] 05088 No Panel Informationon 06-16 Interpretation and review of laboratory results Normal [facility] Interpretation and review of laboratory results Abnormal [facility] PHOSPHATE, INORGANICon 06-16 Phosphate [Mass/Vol] 3.3 mg/dL 2.2 - 4 .6 mg/dL [facility] Phosphorous 3.3 mg/dL Normal 2.2-4.6 [facility] Comment on above: Performed By: #### GERMAIN Valencia, YEIMIB, T3RIA, MGO #### [facility] (DEFAULT) [address] [place] [address] 67999 PROTIME-INRon 06-16-2025 INR Coag (Bld) [Relative time] 2.2 {INR} High 0.9 - 1.1 [facility] Interpretation and review of laboratory results Abnormal [facility] PT Coag (PPP) [Time] 24.7 s High [facility] INR Coag (PPP) [Relative time] 2.2 {INR} High 0.9-1.1 [facility] Comment on above: Order Comment: Ongoi ng: Daily until INR is therapeutic for 2 consecutive days, then every 2 days for 14 days or until discharged. Performed By: #### C MELBA MendozaM7, IPB, T3RIA, MGO #### [facility] (DEFAULT) [address] [place] [address] 88475 PT Coag (PPP) [Time] 24.7 s High 11.9-14.2 [facility] Comment on above: Order Comment: Ongoi ng: Daily until INR is therapeutic for 2 consecutive days, then every 2 days for 14 days or until discharged. Performed By: #### Antoine Mendoza CHM7, IPB, T3RIA, MGO #### [facility] (DEFAULT) [address] [place] [address] 17804 T3 TOTAL (TRIIODOTHYRONINE)o n 06-16-2025 Interpretation and review of laboratory results Normal [facility] T3 [Mass/Vol] 1.25 ng/mL 0.60 - 1.81 ng/mL [facility] T3 Total (Triiodothyronine) 1.25 ng/mL Normal 0.60-1.81 [facility] Comment on above: Performed By: #### C A, CHM7, IPB, T3RIA, MGO #### [facility] (DEFAULT) [address] [place] [address] 34830 T4 FREEon 06-16-2025 Free T4 [Mass/Vol] 3.08 ng/dL High 0.89 - 1. 76 ng/dL [facility] Free T4 [Mass/Vol] 3.08 ng/dL High 0.89-1.[address] [facility] Comment on above: Performed By: #### C Kelly, CHM7, IPB, T3RIA, MGO #### [facility] (DEFAULT) [address] [place] [address] 20742 TSHon 06-16-2025 TSH Qn 0.012 m[IU]/L Low [facility] TSH 0.012 uIU/mL Low 0.550-4.780 [facility] Comment on above: Performed By: #### C A, CHM7, IPB, T3RIA, MGO #### [facility] (DEFAULT) [address] [place] [address] 78250 CALCIUMon 06-15-2025 Calcium [Mass/Vol] 8.3 mg/dL Low 8.6 - 10. 5 mg/dL [facility] Calcium [Mass/Vol] 8.3 mg/dL Low 8.6-10.[address] [facility] Comment on above: Performed By: #### U LYTR, UCRER #### [facility] (DEFAULT) [address] [place] [address] 99437 CBC AND ELECTRONIC DIFFon Basophils (Bld) [#/Vol] K/uL 0.00 - 0.09 K/uL [facility] Basophils/100 WBC (Bld) 0.4 % [facility] Differential cell count method Nom (Bld) Electronic Differential [facility] Eosinophils (Bld) [#/Vol] 0.08 10*3/uL 0.00 - 0.48 K/uL [facility] Eosinophils/100 WBC (Bld) 1.1 % [facility] Erythrocyte distribution width (RBC) [Ratio] 14.0 % 10.9 - 14.3 % [facility] Hematocrit (Bld) [Volume fraction] 23.2 % Low 39.6 - 48.8 % [facility] Hemoglobin (Bld) [Mass/Vol] 7.5 g/dL Low 13.4 - 16.8 g/dL [facility] Immature granulocytes (Bld) [#/Vol] 0.05 10*3/uL NINF - 0.07 K/uL [facility] Immature granulocytes/100 WBC (Bld) 0.7 % [facility] Interpretation and review of laboratory results Abnormal [facility] Lymphocytes (Bld) [#/Vol] 0.51 10*3/uL Low 0.83 - 3.57 K/uL [facility] Lymphocytes/100 WBC (Bld) 7.1 % [facility] MCH (RBC) [Entitic mass] 30.4 pg 26.1 - 33.3 pg [facility] MCHC (RBC) [Mass/Vol] 32.3 g/dL 31.9 - 36.5 g/dL [facility] MCV (RBC) [Entitic vol] 93.9 fL 79.0 - 94.5 fL [facility] Monocytes (Bld) [#/Vol] 1.00 10*3/uL High 0.24 - 0.93 K/uL [facility] Monocytes/100 WBC (Bld) 13.9 % [facility] Neutrophils (Bld) [#/Vol] 5.52 10*3/uL 1.57 - 6.19 K/uL [facility] Nucleated RBC/100 WBC (Bld) [Ratio] 0.0 % NINF [facility] Platelet mean volume (Bld) [Entitic vol] 10.0 fL 8.7 - 12.3 fL [facility] Platelets (Bld) [#/Vol] 201 10*3/uL 146 - 337 K/uL [facility] RBC (Bld) [#/Vol] 2.47 10*6/uL Low [facility] Segmented neutrophils/100 WBC (Bld) 76.8 % [facility] WBC (Bld) [#/Vol] 7.19 10*3/uL 3.73 - 10.10 K/uL [facility] Abs Baso Auto < Normal 0.00-0.09 [facility] Comment on above: Performed By: #### S URGP #### [facility] (DEFAULT) [address] [place] [address]37 Basophils/100 WBC (Bld) 0.4 % Normal [facility] Comment on above: Performed By: #### S URGP #### [facility] (DEFAULT) [address] [place] [address] 22468 DIFF STATUS Electronic Differential Normal [facility] Comment on above: Performed By: #### S URGP #### [facility] (DEFAULT) [address] [place] [address] 38120 Eosinophils (Bld) [#/Vol] 0.08 10*3/uL Normal 0.00-0.48 [facility] Comment on above: Performed By: #### S URGP #### [facility] (DEFAULT) [address] [address] Eosinophils/100 WBC (Bld) 1.1 % Normal [facility] Comment on above: Performed By: #### S URGP #### [facility] (DEFAULT) [address] [place] [address] 14508 Hematocrit (Bld) [Volume fraction] 23.2 % Low 39.6-48.8 [facility] Comment on above: Performed By: #### S URGP #### [facility] (DEFAULT) [address] [address] Hemoglobin (Bld) [Mass/Vol] 7.5 g/dL Low 13.4-16.8 [facility] Comment on above: Performed By: #### S URGP #### [facility] (DEFAULT) [address] [address] Immature Grans % 0.7 % Normal [facility] Comment on above: Performed By: #### S URGP #### [facility] (DEFAULT) [address] [address] Immature Grans Absolute 0.05 K/uL Normal <=0.07 [facility] Comment on above: Performed By: #### S URGP #### [facility] (DEFAULT) [address] [address] Lymphocytes (Bld) [#/Vol] 0.51 10*3/uL Low 0.83-3.57 [facility] Comment on above: Performed By: #### S URGP #### [facility] (DEFAULT) [address] [address] Lymphocytes/100 WBC (Bld) 7.1 % Normal [facility] Comment on above: Performed By: #### S URGP #### [facility] (DEFAULT) [address] [address] MCV (RBC) [Entitic vol] 93.9 fL Normal 79.0-94.5 [facility] Comment on above: Performed By: #### S URGP #### [facility] (DEFAULT) [address] [address] Mean Cell Hgb 30.4 pg Normal 26.1-33.3 [facility] Comment on above: Performed By: #### S URGP #### [facility] (DEFAULT) [address] [place] [address] 97569 Mean Cell Hgb Conc 32.3 g/dL Normal 31.9-36.[address] [facility] Comment on above: Performed By: #### S URGP #### [facility] (DEFAULT) [address] [address] Monocytes (Bld) [#/Vol] 1.00 10*3/uL High 0.24-0.93 [facility] Comment on above: Performed By: #### S URGP #### [facility] (DEFAULT) [address] [address] Monocytes/100 WBC (Bld) 13.9 % Normal [facility] Comment on above: Performed By: #### S URGP #### [facility] (DEFAULT) [address] [place] [address]323 Nucleated RBC 0.0 /100 WBC Normal <=0.2 [facility] Comment on above: Performed By: #### S URGP #### [facility] (DEFAULT) [address] [address] Platelet mean volume (Bld) [Entitic vol] 10.0 fL Normal 8.7-12.3 [facility] Comment on above: Performed By: #### S URGP #### [facility] (DEFAULT) [address] [address] Platelets (Bld) [#/Vol] 201 10*3/uL Normal 146-337 [facility] Comment on above: Performed By: #### S URGP #### [facility] (DEFAULT) [address] [address] RBC (Bld) [#/Vol] 2.47 10*6/uL Low 4.38-5.83 [facility] Comment on above: Performed By: #### S URGP #### [facility] (DEFAULT) [address] [address] RBC Distribution 14.0 % Normal 10.9-14.3 [facility] Comment on above: Performed By: #### S URGP #### [facility] (DEFAULT) [address] [place] [address] 32029 Segs + Bands Auto 76.8 % Normal [facility] Comment on above: Performed By: #### S URGP #### [facility] (DEFAULT) [address] [place] [address] 33731 Segs + Bands,Absolute Auto 5.52 K/uL Normal 1.57-6.19 [facility] Comment on above: Performed By: #### S URGP #### [facility] (DEFAULT) [address] [place] [address]291 WBC (Bld) [#/Vol] 7.19 10*3/uL Normal 3.73-10.10 [facility] Comment on above: Performed By: #### S URGP #### [facility] (DEFAULT) [address] [place] [address]06 CHEM 7 (LYTES,BUN,CREA,GLUC) on 06-15-2025 Anion gap [Moles/Vol] 13 mmol/L 7 - 17 mmol/L [facility] Chloride [Moles/Vol] 104 mmol/L 98 - 10 8 mmol/L [facility] CO2 [Moles/Vol] 25 mmol/L 21 - 31 mmol/L [facility] Creatinine [Mass/Vol] 1.29 mg/dL 0.70 - 1.30 mg/dL [facility] eGFR, CKD-EPI, Male 56 Low - PINF [facility] Comment on above: Reported eGFR is bas ed on the CKD-EPI 2020 equation using creatinine, age, and sex. Glucose [Mass/Vol] 158 mg/dL 70 - 179 mg/dL [facility] Osmolality Calc [[facility]olality] [facility] Pot[facility] [Moles/Vol] 3.6 mmol/L 3.5 - 5.0 mmol/L [facility] Sodium [Moles/Vol] 138 mmol/L 135 - 145 mmol/L [facility] Urea nitrogen [Mass/Vol] 28 mg/dL High 7 - 25 mg/dL [facility] Urea nitrogen/Creatinine [Mass ratio] 22 mg/mg [facility] Anion gap [Moles/Vol] 13 mmol/L Normal 7-17 [facility] Comment on above: Performed By: #### U JAMES UCRER #### [facility] (DEFAULT) [address] [place] [address]76 Chloride [Moles/Vol] 104 mmol/L Normal 98-108 [facility] Comment on above: Performed By: #### Zamzam RAMIREZ UCRER #### [facility] (DEFAULT) [address] [place] [address] 36801 CO2 [Moles/Vol] 25 mmol/L Normal 21-31 [facility] Comment on above: Performed By: #### Zamzam RAMIREZ UCRER #### [facility] (DEFAULT) [address] [place] [address] 17463 Creatinine [Mass/Vol] 1.29 mg/dL Normal 0.70-1.30 [facility] Comment on above: Performed By: #### U JAMES UCRER #### [facility] (DEFAULT) [address] [place] [address] 98629 GFR/1.73 sq M.predicted among non-blacks MDRD (S/P/Bld) [Vol rate/Area] 54 mL/min/{1.73_m2} Low >=60 [facility] Comment on above: Result Comment: Repo rted eGFR is based on the CKD-EPI 2020 equation using creatinine, age, and sex. Performed By: #### U JAMES UCRER #### [facility] (DEFAULT) [address] [place] [address] 36083 Glucose [Mass/Vol] 158 mg/dL Normal Nonfastin -179 mg/dL; Fastin-99 [facility] Comment on above: Performed By: #### U LYTR UCRER #### [facility] (DEFAULT) [address] [place] [address] 82870 Osmolality [Osmolality] 297 mosm/kg Normal 278-305 [facility] Comment on above: Performed By: #### U LYTR, UCRER #### [facility] (DEFAULT) [address] [place] [address]27 Potassium [Moles/Vol] 3.6 mmol/L Normal 3.5-5.0 [facility] Comment on above: Performed By: #### U LYTR UCRER #### [facility] (DEFAULT) [address] [place] [address]31 Sodium [Moles/Vol] 138 mmol/L Normal 135-[address] [facility] Comment on above: Performed By: #### U LYWILLIS UCRER #### [facility] (DEFAULT) [address] [place] [address]244 Urea nitrogen [Mass/Vol] 28 mg/dL High 7-25 [facility] Comment on above: Performed By: #### U LYWILLIS UCRER #### [facility] (DEFAULT) [address] [place] [address]377 Urea nitrogen/Creatinine [Mass ratio] 22 mg/mg Normal [facility] Comment on above: Performed By: #### U LYTR UCRER #### [facility] (DEFAULT) [address] [place] [address] MAGNESIUMon 06-15-2025 Magnesium [Mass/Vol] 2.0 mg/dL 1.6 - 2 .6 mg/dL [facility] Magnesium [Mass/Vol] 2.0 mg/dL Normal 1.6-2.6 [facility] Comment on above: Performed By: #### U LYTR, UCRER #### [facility] (DEFAULT) [address] [place] [address]255 No Panel Informationon 06-15 Interpretation and review of laboratory results Abnormal [facility] Interpretation and review of laboratory results Normal [facility] PHOSPHATE, INORGANICon 06-15 Phosphate [Mass/Vol] 3.5 mg/dL 2.2 - 4 .6 mg/dL [facility] Phosphorous 3.5 mg/dL Normal 2.2-4.6 [facility] Comment on above: Performed By: #### U KAROL RAMIREZR #### [facility] (DEFAULT) [address] [address] PROTIME-INRon 06-15-2025 INR Coag (Bld) [Relative time] 2.1 {INR} High 0.9 - 1.1 [facility] Interpretation and review of laboratory results Abnormal [facility] PT Coag (PPP) [Time] 23.4 s High [facility] INR Coag (PPP) [Relative time] 2.1 {INR} High 0.9-1.1 [facility] Comment on above: Order Comment: Ongoi ng: Daily until INR is therapeutic for 2 consecutive days, then every 2 days for 14 days or until discharged. Performed By: #### Antoine Mendoza CHM7, IPB, T3RIA, MGO #### [facility] (DEFAULT) [address] [place] [address] PT Coag (PPP) [Time] 23.4 s High 11.9-14.2 [facility] Comment on above: Order Comment: Ongoi ng: Daily until INR is therapeutic for 2 consecutive days, then every 2 days for 14 days or until discharged. Performed By: #### Antoine Mendoza CHM7, IPB, T3RIA, MGO #### [facility] (DEFAULT) [address] [place] [address] 7[address]67 CALCIUMon 06-14-2025 Calcium [Mass/Vol] 8.9 mg/dL 8.6 - 10. 5 mg/dL [facility] Calcium [Mass/Vol] 8.9 mg/dL Normal 8.6-10.[address] [facility] Comment on above: Performed By: #### C A, CHM7, IPB, T3RIA, MGO #### [facility] (DEFAULT) [address] [place] [address] CBC AND ELECTRONIC DIFFon Basophils (Bld) [#/Vol] 0.04 10*3/uL 0.00 - 0.09 K/uL [facility] Basophils/100 WBC (Bld) 0.5 % [facility] Differential cell count method Nom (Bld) Electronic Differential [facility] Eosinophils (Bld) [#/Vol] 0.09 10*3/uL 0.00 - 0.48 K/uL [facility] Eosinophils/100 WBC (Bld) 1.2 % [facility] Erythrocyte distribution width (RBC) [Ratio] 14.2 % 10.9 - 14.3 % [facility] Hematocrit (Bld) [Volume fraction] 25.7 % Low 39.6 - 48.8 % [facility] Hemoglobin (Bld) [Mass/Vol] 8.1 g/dL Low 13.4 - 16.8 g/dL [facility] Immature granulocytes (Bld) [#/Vol] 0.07 10*3/uL NINF - 0.07 K/uL [facility] Immature granulocytes/100 WBC (Bld) 0.9 % [facility] Interpretation and review of laboratory results Abnormal [facility] Lymphocytes (Bld) [#/Vol] 0.57 10*3/uL Low 0.83 - 3.57 K/uL [facility] Lymphocytes/100 WBC (Bld) 7.6 % [facility] MCH (RBC) [Entitic mass] 30.2 pg 26.1 - 33.3 pg [facility] MCHC (RBC) [Mass/Vol] 31.5 g/dL Low 31.9 - 36.5 g/dL [facility] MCV (RBC) [Entitic vol] 95.9 fL High 79.0 - 94.5 fL [facility] Monocytes (Bld) [#/Vol] 1.05 10*3/uL High 0.24 - 0.93 K/uL [facility] Monocytes/100 WBC (Bld) 13.9 % [facility] Neutrophils (Bld) [#/Vol] 5.71 10*3/uL 1.57 - 6.19 K/uL [facility] Nucleated RBC/100 WBC (Bld) [Ratio] 0.0 % NINF [facility] Platelet mean volume (Bld) [Entitic vol] 10.3 fL 8.7 - 12.3 fL [facility] Platelets (Bld) [#/Vol] 203 10*3/uL 146 - 337 K/uL [facility] RBC (Bld) [#/Vol] 2.68 10*6/uL Low [facility] Segmented neutrophils/100 WBC (Bld) 75.9 % [facility] WBC (Bld) [#/Vol] 7.53 10*3/uL 3.73 - 10.10 K/uL [facility] Basophils (Bld) [#/Vol] 0.04 10*3/uL Normal 0.00-0.09 [facility] Comment on above: Performed By: #### P TI #### [facility] (DEFAULT) [address] [address] Basophils/100 WBC (Bld) 0.5 % Normal [facility] Comment on above: Performed By: #### P TI #### [facility] (DEFAULT) [address] [place] [address]22 DIFF STATUS Electronic Differential Normal [facility] Comment on above: Performed By: #### P TI #### [facility] (DEFAULT) [address] [place] [address] 15400 Eosinophils (Bld) [#/Vol] 0.09 10*3/uL Normal 0.00-0.48 [facility] Comment on above: Performed By: #### P TI #### [facility] (DEFAULT) [address] [place] [address] 90843 Eosinophils/100 WBC (Bld) 1.2 % Normal [facility] Comment on above: Performed By: #### P TI #### [facility] (DEFAULT) [address] [place] [address]27 Hematocrit (Bld) [Volume fraction] 25.7 % Low 39.6-48.8 [facility] Comment on above: Performed By: #### P TI #### [facility] (DEFAULT) [address] [place] [address] 69499 Hemoglobin (Bld) [Mass/Vol] 8.1 g/dL Low 13.4-16.8 [facility] Comment on above: Performed By: #### P TI #### [facility] (DEFAULT) [address] [place] [address]247 Immature Grans % 0.9 % Normal [facility] Comment on above: Performed By: #### P TI #### [facility] (DEFAULT) [address] [place] [address] 49862 Immature Grans Absolute 0.07 K/uL Normal <=0.07 [facility] Comment on above: Performed By: #### P TI #### [facility] (DEFAULT) [address] [place] [address] 82451 Lymphocytes (Bld) [#/Vol] 0.57 10*3/uL Low 0.83-3.57 [facility] Comment on above: Performed By: #### P TI #### [facility] (DEFAULT) [address] [address] Lymphocytes/100 WBC (Bld) 7.6 % Normal [facility] Comment on above: Performed By: #### P TI #### [facility] (DEFAULT) [address] [place] [address] 26567 MCV (RBC) [Entitic vol] 95.9 fL High 79.0-94.5 [facility] Comment on above: Performed By: #### P TI #### [facility] (DEFAULT) [address] [place] [address] 46720 Mean Cell Hgb 30.2 pg Normal 26.1-33.3 [facility] Comment on above: Performed By: #### P TI #### [facility] (DEFAULT) [address] [place] [address] 74177 Mean Cell Hgb Conc 31.5 g/dL Low 31.9-36.[address] [facility] Comment on above: Performed By: #### P TI #### [facility] (DEFAULT) [address] [place] [address] 24528 Monocytes (Bld) [#/Vol] 1.05 10*3/uL High 0.24-0.93 [facility] Comment on above: Performed By: #### P TI #### [facility] (DEFAULT) [address] [place] [address] 63834 Monocytes/100 WBC (Bld) 13.9 % Normal [facility] Comment on above: Performed By: #### P TI #### [facility] (DEFAULT) [address] [address] Nucleated RBC 0.0 /100 WBC Normal <=0.2 [facility] Comment on above: Performed By: #### P TI #### [facility] (DEFAULT) [address] [place] [address] 18656 Platelet mean volume (Bld) [Entitic vol] 10.3 fL Normal 8.7-12.3 [facility] Comment on above: Performed By: #### P TI #### [facility] (DEFAULT) [address] [place] [address] 34249 Platelets (Bld) [#/Vol] 203 10*3/uL Normal 146-337 [facility] Comment on above: Performed By: #### P TI #### [facility] (DEFAULT) [address] [place] [address] 21340 RBC (Bld) [#/Vol] 2.68 10*6/uL Low 4.38-5.83 [facility] Comment on above: Performed By: #### P TI #### [facility] (DEFAULT) [address] [address] RBC Distribution 14.2 % Normal 10.9-14.3 [facility] Comment on above: Performed By: #### P TI #### [facility] (DEFAULT) [address] [place] [address] 65063 Segs + Bands Auto 75.9 % Normal [facility] Comment on above: Performed By: #### P TI #### [facility] (DEFAULT) [address] [address] Segs + Bands,Absolute Auto 5.71 K/uL Normal 1.57-6.19 [facility] Comment on above: Performed By: #### P TI #### [facility] (DEFAULT) [address] [address] WBC (Bld) [#/Vol] 7.53 10*3/uL Normal 3.73-10.10 [facility] Comment on above: Performed By: #### P TI #### [facility] (DEFAULT) [address] [address] CHEM 7 (LYTES,BUN,CREA,GLUC) on 06-14-2025 Anion gap [Moles/Vol] 16 mmol/L 7 - 17 mmol/L [facility] Chloride [Moles/Vol] 104 mmol/L 98 - 10 8 mmol/L [facility] CO2 [Moles/Vol] 22 mmol/L 21 - 31 mmol/L [facility] Creatinine [Mass/Vol] 1.22 mg/dL 0.70 - 1.30 mg/dL [facility] eGFR, CKD-EPI, Male 59 Low - PINF [facility] Comment on above: Reported eGFR is bas ed on the CKD-EPI 2020 equation using creatinine, age, and sex. Glucose [Mass/Vol] 95 mg/dL 70 - 179 mg/dL [facility] Interpretation and review of laboratory results Abnormal [facility] Osmolality Calc [Osmolality] 293 [facility] Potassium [Moles/Vol] 4.0 mmol/L 3.5 - 5.0 mmol/L [facility] Sodium [Moles/Vol] 138 mmol/L 135 - 145 mmol/L [facility] Urea nitrogen [Mass/Vol] 26 mg/dL High 7 - 25 mg/dL [facility] Urea nitrogen/Creatinine [Mass ratio] 21 mg/mg [facility] Anion gap [Moles/Vol] 16 mmol/L Normal 7-17 [facility] Comment on above: Performed By: #### C A, CHM7, IPB, T3RIA, MGO #### [facility] (DEFAULT) [address] [place] [address]94 Chloride [Moles/Vol] 104 mmol/L Normal 98-108 [facility] Comment on above: Performed By: #### C A, CHM7, IPB, T3RIA, MGO #### [facility] (DEFAULT) [address] [place] [address] 07075 CO2 [Moles/Vol] 22 mmol/L Normal 21-31 [facility] Comment on above: Performed By: #### C A, CHM7, IPB, T3RIA, MGO #### [facility] (DEFAULT) [address] [place] [address] Creatinine [Mass/Vol] 1.22 mg/dL Normal 0.70-1.30 [facility] Comment on above: Performed By: #### C A, CHM7, IPB, T3RIA, MGO #### [facility] (DEFAULT) [address] [place] [address] 93008 GFR/1.73 sq M.predicted among non-blacks MDRD (S/P/Bld) [Vol rate/Area] 57 mL/min/{1.73_m2} Low >=60 [facility] Comment on above: Result Comment: Repo rted eGFR is based on the CKD-EPI 2020 equation using creatinine, age, and sex. Performed By: #### Antoine Mendoza, CHM7, IPB, T3RIA, MGO #### [facility] (DEFAULT) [address] [place] [address]244 Glucose [Mass/Vol] 95 mg/dL Normal Nonfastin -179 mg/dL; Fastin-99 [facility] Comment on above: Performed By: #### Antoine Mendoza, CHM7, IPB, T3RIA, MGO #### [facility] (DEFAULT) [address] [place] [address] 36782 Osmolality [Osmolality] 293 mosm/kg Normal 278-305 [facility] Comment on above: Performed By: #### Antoine Mendoza, CHM7, IPB, T3RIA, MGO #### [facility] (DEFAULT) [address] [place] [address] 78608 Potassium [Moles/Vol] 4.0 mmol/L Normal 3.5-5.0 [facility] Comment on above: Performed By: #### Antoine Mendoza, CHM7, IPB, T3RIA, MGO #### [facility] (DEFAULT) [address] [place] [address] 08088 Sodium [Moles/Vol] 138 mmol/L Normal 135-[address] [facility] Comment on above: Performed By: #### Antoine Mendoza, CHM7, IPB, T3RIA, MGO #### [facility] (DEFAULT) [address] [place] [address] 65556 Urea nitrogen [Mass/Vol] 26 mg/dL High 7-25 [facility] Comment on above: Performed By: #### Antoine A, CHM7, IPB, T3RIA, MGO #### [facility] (DEFAULT) [address] [place] [address] 42673 Urea nitrogen/Creatinine [Mass ratio] 21 mg/mg Normal [facility] Comment on above: Performed By: #### C Kelly, CHM7, IPB, T3RIA, MGO #### [facility] (DEFAULT) [address] [place] [address] 56581 MAGNESIUMon 06-14-2025 Magnesium [Mass/Vol] 1.9 mg/dL 1.6 - 2 .6 mg/dL [facility] Magnesium [Mass/Vol] 1.9 mg/dL Normal 1.6-2.6 [facility] Comment on above: Performed By: #### C Kelly, CHM7, IPB, T3RIA, MGO #### [facility] (DEFAULT) [address] [place] [address] 25502 No Panel Informationon 06-14 Interpretation and review of laboratory results Normal [facility] PHOSPHATE, INORGANICon 06-14 Phosphate [Mass/Vol] 3.3 mg/dL 2.2 - 4 .6 mg/dL [facility] Phosphorous 3.3 mg/dL Normal 2.2-4.6 [facility] Comment on above: Performed By: #### Antoine Mendoza, MELBAMFeliciano, IPB, T3RIA, MGO #### [facility] (DEFAULT) [address] [place] [address] 05881 PROTIME-INRon 06-14-2025 INR Coag (Bld) [Relative time] 2.1 {INR} High 0.9 - 1.1 [facility] Interpretation and review of laboratory results Abnormal [facility] PT Coag (PPP) [Time] 23.8 s High [facility] INR Coag (PPP) [Relative time] 2.1 {INR} High 0.9-1.1 [facility] Comment on above: Order Comment: Ongoi ng: Daily until INR is therapeutic for 2 consecutive days, then every 2 days for 14 days or until discharged. Performed By: #### C Kelly, CHM7, IPB, T3RIA, MGO #### [facility] (DEFAULT) [address] [place] [address] 01251 PT Coag (PPP) [Time] 23.8 s High 11.9-14.2 [facility] Comment on above: Order Comment: Ongoi ng: Daily until INR is therapeutic for 2 consecutive days, then every 2 days for 14 days or until discharged. Performed By: #### C A, CHM7, IPB, T3RIA, MGO #### [facility] (DEFAULT) [address] [place] [address] 46872 CALCIUMon 06-13-2025 Calcium [Mass/Vol] 9.3 mg/dL 8.6 - 10. 5 mg/dL [facility] Calcium [Mass/Vol] 9.3 mg/dL Normal 8.6-10.[address] [facility] Comment on above: Performed By: #### S URGP #### [facility] (DEFAULT) [address] [place] [address] 68571 CBC AND ELECTRONIC DIFFon Basophils (Bld) [#/Vol] 0.05 10*3/uL 0.00 - 0.09 K/uL [facility] Basophils/100 WBC (Bld) 0.7 % [facility] Differential cell count method Nom (Bld) Electronic Differential [facility] Eosinophils (Bld) [#/Vol] 0.04 10*3/uL 0.00 - 0.48 K/uL [facility] Eosinophils/100 WBC (Bld) 0.5 % [facility] Erythrocyte distribution width (RBC) [Ratio] 14.0 % 10.9 - 14.3 % [facility] Hematocrit (Bld) [Volume fraction] 25.1 % Low 39.6 - 48.8 % [facility] Hemoglobin (Bld) [Mass/Vol] 8.1 g/dL Low 13.4 - 16.8 g/dL [facility] Immature granulocytes (Bld) [#/Vol] 0.04 10*3/uL NINF - 0.07 K/uL [facility] Immature granulocytes/100 WBC (Bld) 0.5 % [facility] Interpretation and review of laboratory results Abnormal [facility] Lymphocytes (Bld) [#/Vol] 0.67 10*3/uL Low 0.83 - 3.57 K/uL [facility] Lymphocytes/100 WBC (Bld) 9.0 % [facility] MCH (RBC) [Entitic mass] 30.8 pg 26.1 - 33.3 pg [facility] MCHC (RBC) [Mass/Vol] 32.3 g/dL 31.9 - 36.5 g/dL [facility] MCV (RBC) [Entitic vol] 95.4 fL High 79.0 - 94.5 fL [facility] Monocytes (Bld) [#/Vol] 1.08 10*3/uL High 0.24 - 0.93 K/uL [facility] Monocytes/100 WBC (Bld) 14.5 % [facility] Neutrophils (Bld) [#/Vol] 5.55 10*3/uL 1.57 - 6.19 K/uL [facility] Nucleated RBC/100 WBC (Bld) [Ratio] 0.0 % NINF [facility] Platelet mean volume (Bld) [Entitic vol] 10.5 fL 8.7 - 12.3 fL [facility] Platelets (Bld) [#/Vol] 199 10*3/uL 146 - 337 K/uL [facility] RBC (Bld) [#/Vol] 2.63 10*6/uL Low [facility] Segmented neutrophils/100 WBC (Bld) 74.8 % [facility] WBC (Bld) [#/Vol] 7.43 10*3/uL 3.73 - 10.10 K/uL [facility] Basophils (Bld) [#/Vol] 0.05 10*3/uL Normal 0.00-0.09 [facility] Comment on above: Performed By: #### C A, CHM7, IPB, T3RIA, MGO #### [facility] (DEFAULT) [address] [place] [address] 22595 Basophils/100 WBC (Bld) 0.7 % Normal [facility] Comment on above: Performed By: #### C Kelly, CHM7, IPB, T3RIA, MGO #### [facility] (DEFAULT) [address] [place] [address] [id number] DIFF STATUS Electronic Differential Normal [facility] Comment on above: Performed By: #### C A, CHM7, IPB, T3RIA, MGO #### [facility] (DEFAULT) [address] [place] [address] 66449 Eosinophils (Bld) [#/Vol] 0.04 10*3/uL Normal 0.00-0.48 [facility] Comment on above: Performed By: #### C Kelly, CHM7, IPB, T3RIA, MGO #### [facility] (DEFAULT) [address] [place] [address] 74227 Eosinophils/100 WBC (Bld) 0.5 % Normal [facility] Comment on above: Performed By: #### C Kelly, CHM7, IPB, T3RIA, MGO #### [facility] (DEFAULT) [address] [place] [address] 83031 Hematocrit (Bld) [Volume fraction] 25.1 % Low 39.6-48.8 [facility] Comment on above: Performed By: #### C A, CHM7, IPB, T3RIA, MGO #### [facility] (DEFAULT) [address] [place] [address] 42546 Hemoglobin (Bld) [Mass/Vol] 8.1 g/dL Low 13.4-16.8 [facility] Comment on above: Performed By: #### C A, CHM7, IPB, T3RIA, MGO #### [facility] (DEFAULT) [address] [place] [address] 43245 Immature Grans % 0.5 % Normal [facility] Comment on above: Performed By: #### C Kelly, CHM7, IPB, T3RIA, MGO #### [facility] (DEFAULT) [address] [place] [address] 56513 Immature Grans Absolute 0.04 K/uL Normal <=0.07 [facility] Comment on above: Performed By: #### Antoine Mendoza, CHM7, IPB, T3RIA, MGO #### [facility] (DEFAULT) [address] [place] [address] 79255 Lymphocytes (Bld) [#/Vol] 0.67 10*3/uL Low 0.83-3.57 [facility] Comment on above: Performed By: #### C A, CHM7, IPB, T3RIA, MGO #### [facility] (DEFAULT) [address] [place] [address] 87938 Lymphocytes/100 WBC (Bld) 9.0 % Normal [facility] Comment on above: Performed By: #### Antoine A, CHM7, IPB, T3RIA, MGO #### [facility] (DEFAULT) [address] [place] [address] 21575 MCV (RBC) [Entitic vol] 95.4 fL High 79.0-94.5 [facility] Comment on above: Performed By: #### Antoine Mendoza, CHM7, IPB, T3RIA, MGO #### [facility] (DEFAULT) [address] [place] [address] 68608 Mean Cell Hgb 30.8 pg Normal 26.1-33.3 [facility] Comment on above: Performed By: #### C A, CHM7, IPB, T3RIA, MGO #### [facility] (DEFAULT) [address] [place] [address] 71702 Mean Cell Hgb Conc 32.3 g/dL Normal 31.9-36.[address] [facility] Comment on above: Performed By: #### C A, CHM7, IPB, T3RIA, MGO #### [facility] (DEFAULT) [address] [place] [address] 81458 Monocytes (Bld) [#/Vol] 1.08 10*3/uL High 0.24-0.93 [facility] Comment on above: Performed By: #### C A, CHM7, IPB, T3RIA, MGO #### [facility] (DEFAULT) [address] [place] [address] 04333 Monocytes/100 WBC (Bld) 14.5 % Normal [facility] Comment on above: Performed By: #### C A, CHM7, IPB, T3RIA, MGO #### [facility] (DEFAULT) [address] [place] [address] 34464 Nucleated RBC 0.0 /100 WBC Normal <=0.2 [facility] Comment on above: Performed By: #### C A, CHM7, IPB, T3RIA, MGO #### [facility] (DEFAULT) [address] [place] [address] 24437 Platelet mean volume (Bld) [Entitic vol] 10.5 fL Normal 8.7-12.3 [facility] Comment on above: Performed By: #### C A, CHM7, IPB, T3RIA, MGO #### [facility] (DEFAULT) [address] [place] [address] 94864 Platelets (Bld) [#/Vol] 199 10*3/uL Normal 146-337 [facility] Comment on above: Performed By: #### C A, CHM7, IPB, T3RIA, MGO #### [facility] (DEFAULT) [address] [place] [address] 07664 RBC (Bld) [#/Vol] 2.63 10*6/uL Low 4.38-5.83 [facility] Comment on above: Performed By: #### C A, CHM7, IPB, T3RIA, MGO #### [facility] (DEFAULT) [address] [place] [address] 43997 RBC Distribution 14.0 % Normal 10.9-14.3 [facility] Comment on above: Performed By: #### C A, CHM7, IPB, T3RIA, MGO #### [facility] (DEFAULT) [address] [place] [address] 72119 Segs + Bands Auto 74.8 % Normal [facility] Comment on above: Performed By: #### C A, CHM7, IPB, T3RIA, MGO #### [facility] (DEFAULT) [address] [place] [address] 98238 Segs + Bands,Absolute Auto 5.55 K/uL Normal 1.57-6.19 [facility] Comment on above: Performed By: #### C A, CHM7, IPB, T3RIA, MGO #### [facility] (DEFAULT) [address] [place] [address] 84022 WBC (Bld) [#/Vol] 7.43 10*3/uL Normal 3.73-10.10 [facility] Comment on above: Performed By: #### C A, CHM7, IPB, T3RIA, MGO #### [facility] (DEFAULT) [address] [place] [address] 72304 CHEM 7 (LYTES,BUN,CREA,GLUC) on 06-13-2025 Anion gap [Moles/Vol] 14 mmol/L 7 - 17 mmol/L [facility] Chloride [Moles/Vol] 102 mmol/L 98 - 10 8 mmol/L [facility] CO2 [Moles/Vol] 25 mmol/L 21 - 31 mmol/L [facility] Creatinine [Mass/Vol] 1.30 mg/dL 0.70 - 1.30 mg/dL [facility] eGFR, CKD-EPI, Male 55 Low - PINF [facility] Comment on above: Reported eGFR is bas ed on the CKD-EPI 2020 equation using creatinine, age, and sex. Glucose [Mass/Vol] 87 mg/dL 70 - 179 mg/dL [facility] Interpretation and review of laboratory results Abnormal [facility] Osmolality Calc [Osmolality] 290 [facility] Potassium [Moles/Vol] 4.5 mmol/L 3.5 - 5.0 mmol/L [facility] Sodium [Moles/Vol] 136 mmol/L 135 - 145 mmol/L [facility] Urea nitrogen [Mass/Vol] 26 mg/dL High 7 - 25 mg/dL [facility] Urea nitrogen/Creatinine [Mass ratio] 20 mg/mg [facility] Anion gap [Moles/Vol] 14 mmol/L Normal 7-17 [facility] Comment on above: Performed By: #### S URGP #### [facility] (DEFAULT) [address] [place] [address] 27973 Chloride [Moles/Vol] 102 mmol/L Normal 98-108 [facility] Comment on above: Performed By: #### S URGP #### [facility] (DEFAULT) [address] [place] [address] 78473 CO2 [Moles/Vol] 25 mmol/L Normal 21-31 [facility] Comment on above: Performed By: #### S URGP #### [facility] (DEFAULT) [address] [place] [address] 68455 Creatinine [Mass/Vol] 1.30 mg/dL Normal 0.70-1.30 [facility] Comment on above: Performed By: #### S URGP #### [facility] (DEFAULT) [address] [place] [address] 57138 GFR/1.73 sq M.predicted among non-blacks MDRD (S/P/Bld) [Vol rate/Area] 53 mL/min/{1.73_m2} Low >=60 [facility] Comment on above: Result Comment: Repo rted eGFR is based on the CKD-EPI 2020 equation using creatinine, age, and sex. Performed By: #### S URGP #### [facility] (DEFAULT) [address] [place] [address] 27321 Glucose [Mass/Vol] 87 mg/dL Normal Nonfastin -179 mg/dL; Fastin-99 [facility] Comment on above: Performed By: #### S URGP #### [facility] (DEFAULT) [address] [place] [address] Osmolality [Osmolality] 290 mosm/kg Normal 278-305 [facility] Comment on above: Performed By: #### S URGP #### [facility] (DEFAULT) [address] [place] [address] 60254 Potassium [Moles/Vol] 4.5 mmol/L Normal 3.5-5.0 [facility] Comment on above: Performed By: #### S URGP #### [facility] (DEFAULT) [address] [place] [address] 51096 Sodium [Moles/Vol] 136 mmol/L Normal 135-[address] [facility] Comment on above: Performed By: #### S URGP #### [facility] (DEFAULT) [address] [place] [address] 25418 Urea nitrogen [Mass/Vol] 26 mg/dL High 7-25 [facility] Comment on above: Performed By: #### S URGP #### [facility] (DEFAULT) [address] [place] [address] 20947 Urea nitrogen/Creatinine [Mass ratio] 20 mg/mg Normal [facility] Comment on above: Performed By: #### S URGP #### [facility] (DEFAULT) [address] [place] [address] 84008 MAGNESIUMon 06-13-2025 Magnesium [Mass/Vol] 2.0 mg/dL 1.6 - 2 .6 mg/dL [facility] Magnesium [Mass/Vol] 2.0 mg/dL Normal 1.6-2.6 [facility] Comment on above: Performed By: #### S URGP #### [facility] (DEFAULT) [address] [address] No Panel Informationon 06-13 Interpretation and review of laboratory results Normal [facility] Orders Onlyon 06-13-2025 Orders Only [id number] Sebastian Hannon 1935 M Date Provider Department Center 06/13/2025 [facility] CARD [facility] Family History Problem Relation Age of Onset Other Mother Coronary artery disease Father Family Status - Relation Status Age at Mother Father Normal [facility] PHOSPHATE, INORGANICon 06-13 Phosphate [Mass/Vol] 3.5 mg/dL 2.2 - 4 .6 mg/dL [facility] Phosphorous 3.5 mg/dL Normal 2.2-4.6 [facility] Comment on above: Performed By: #### S URGP #### [facility] (DEFAULT) [address] [address] PROTIME-INRon 06-13-2025 INR Coag (Bld) [Relative time] 3.0 {INR} High 0.9 - 1.1 [facility] Interpretation and review of laboratory results Abnormal [facility] PT Coag (PPP) [Time] 31.6 s High [facility] INR Coag (PPP) [Relative time] 3.0 {INR} High 0.9-1.1 [facility] Comment on above: Order Comment: Ongoi ng: Daily until INR is therapeutic for 2 consecutive days, then every 2 days for 14 days or until discharged. Performed By: #### P TI #### [facility] (DEFAULT) [address] [address] PT Coag (PPP) [Time] 31.6 s High 11.9-14.2 [facility] Comment on above: Order Comment: Ongoi ng: Daily until INR is therapeutic for 2 consecutive days, then every 2 days for 14 days or until discharged. Performed By: #### P TI #### [facility] (DEFAULT) [address] [place] [address] 96935 RF videography Hypopharynx a nd Esophagus Views [...] I have reviewed and approved this report. [facility] Radiology Study observation (narrative) [facility] RF videography Hypopharynx a nd Esophagus Views W liquid and paste contrast PO during swallowingOrdered By: Jose Rojas on 06-13-2025 [facility] Work Phone: SPEECH MODIFIED BARIUM KEITH Tejeda [...] Review Onset of Illness/Injury or Surgery Date (RATE SETTER): 06/10/25 Communication Status: Verbal, No deficits noted Hearing Acuity: Impaired Behavioral Observations: pleasant, cooperative Respiratory Status: Room air Respiratory Status O2 Device: room air O2 Sat (%): 96 % Resp Rate: 16 Acute RATE SETTER Outcomes Tracking Communicate basic wants and needs?: [...] (severe) Precipitating dysphagia risk factors: none known RATE SETTER History: Previous Exams and Therapy Previous Exams [...] to fluoro suite, pt in transport cart. RATE SETTER assisted radiology staff with transferring patient to [...] Thin Liquid Barium: Spoon, Cup, Straw Mildly Thick/[place] Liquid Barium: Spoon, Straw Moderately Thick/Honey Liquid Barium: Spoon Pudding Barium: Spoon Regular Solid Contrasted with Barium: Cracker/Cookie Oral Phase Lip Closure: WFL, no labial escape Tongue Control During Bolus Hold: Cohesive bolus between tongue to (more content not included)... [facility] THYROTROPIN RECEPTOR ANTIBOD Yon 06-13-2025 TSH receptor Ab Qn (S) <1.10 [facility] Comment on above: ADDITIONAL INFORMATION At a decision limit of 1.75 IU/L, this assay has 97% sensitivity and 99% specificity for detection of Graves' disease. In healthy individuals and in patients with thyroid disease without diagnosis of Graves' disease, the upper limit of anti-TSHR values are 1.22 IU/L and 1.58 IU/L, respectively (97.5th percentiles). Test Performed by: [facility] [address] [place] [address] Occupational Therapy Instructor: Sha Graham Ph.D.; CLIA# [id number] [facility] XR FLUORO MODIFIED BARIUM SW ALLOW WITH [...] have reviewed and approved this report. Normal [facility] CALCIUMon 06-12-2025 Calcium [Mass/Vol] 9.0 mg/dL 8.6 - 10. 5 mg/dL [facility] Calcium [Mass/Vol] 9.0 mg/dL Normal 8.6-10.[address] [facility] Comment on above: Performed By: #### S URGP #### [facility] (DEFAULT) [address] [place] [address] CBC AND ELECTRONIC DIFFon Basophils (Bld) [#/Vol] 0.05 10*3/uL 0.00 - 0.09 K/uL [facility] Basophils/100 WBC (Bld) 0.6 % [facility] Differential cell count method Nom (Bld) Electronic Differential [facility] Eosinophils (Bld) [#/Vol] 0.10 10*3/uL 0.00 - 0.48 K/uL [facility] Eosinophils/100 WBC (Bld) 1.2 % [facility] Erythrocyte distribution width (RBC) [Ratio] 14.2 % 10.9 - 14.3 % [facility] Comment on above: This is an appended report. These results have been appended to a previously preliminary verified report. Hematocrit (Bld) [Volume fraction] 24.2 % Low 39.6 - 48.8 % [facility] Comment on above: This is an appended report. These results have been appended to a previously preliminary verified report. Hemoglobin (Bld) [Mass/Vol] 7.9 g/dL Low 13.4 - 16.8 g/dL [facility] Comment on above: This is an appended report. These results have been appended to a previously preliminary verified report. Immature granulocytes (Bld) [#/Vol] 0.08 10*3/uL High NINF - 0.07 K/uL [facility] Immature granulocytes/100 WBC (Bld) 1.0 % [facility] Interpretation and review of laboratory results Abnormal [facility] Lymphocytes (Bld) [#/Vol] 0.61 10*3/uL Low 0.83 - 3.57 K/uL [facility] Lymphocytes/100 WBC (Bld) 7.5 % [facility] MCH (RBC) [Entitic mass] 30.9 pg 26.1 - 33.3 pg [facility] Comment on above: This is an appended report. These results have been appended to a previously preliminary verified report. MCHC (RBC) [Mass/Vol] 32.6 g/dL 31.9 - 36.5 g/dL [facility] Comment on above: This is an appended report. These results have been appended to a previously preliminary verified report. MCV (RBC) [Entitic vol] 94.5 fL 79.0 - 94.5 fL [facility] Comment on above: This is an appended report. These results have been appended to a previously preliminary verified report. Monocytes (Bld) [#/Vol] 1.12 10*3/uL High 0.24 - 0.93 K/uL [facility] Monocytes/100 WBC (Bld) 13.8 % [facility] Neutrophils (Bld) [#/Vol] 6.15 10*3/uL 1.57 - 6.19 K/uL [facility] Nucleated RBC/100 WBC (Bld) [Ratio] 0.0 % NINF [facility] Platelet mean volume (Bld) [Entitic vol] [facility] Comment on above: Not measured Platelets (Bld) [#/Vol] 368 10*3/uL High 146 - 337 K/uL [facility] Comment on above: This is an appended report. These results have been appended to a previously preliminary verified report. RBC (Bld) [#/Vol] 2.56 10*6/uL Low [facility] Comment on above: This is an appended report. These results have been appended to a previously preliminary verified report. Segmented neutrophils/100 WBC (Bld) 75.9 % [facility] WBC (Bld) [#/Vol] 8.11 10*3/uL 3.73 - 10.10 K/uL [facility] Comment on above: This is an appended report. These results have been appended to a previously preliminary verified report. [facility] Basophils (Bld) [#/Vol] 0.05 10*3/uL Normal 0.00-0.09 [facility] Comment on above: Performed By: #### Zamzam RAMIREZ UCRER #### [facility] (DEFAULT) [address] [place] [address] 10426 Basophils/100 WBC (Bld) 0.6 % Normal [facility] Comment on above: Performed By: #### Zamzam LYWILLIS UCRER #### [facility] (DEFAULT) [address] [place] [address] 19532 DIFF STATUS Electronic Differential Normal [facility] Comment on above: Performed By: #### U LYWILLIS UCRER #### [facility] (DEFAULT) [address] [address] Eosinophils (Bld) [#/Vol] 0.10 10*3/uL Normal 0.00-0.48 [facility] Comment on above: Performed By: #### U LYWILLIS UCRER #### [facility] (DEFAULT) [address] [address] Eosinophils/100 WBC (Bld) 1.2 % Normal [facility] Comment on above: Performed By: #### U LYTR, UCRER #### [facility] (DEFAULT) [address] [address] Hematocrit (Bld) [Volume fraction] 24.2 % Low 39.6-48.8 [facility] Comment on above: Result Comment: This is an appended report. These results have been appended to a previously preliminary verified report. Performed By: #### U LYTR, UCRER #### [facility] (DEFAULT) [address] [address] Hemoglobin (Bld) [Mass/Vol] 7.9 g/dL Low 13.4-16.8 [facility] Comment on above: Result Comment: This is an appended report. These results have been appended to a previously preliminary verified report. Performed By: #### U LYTR, UCRER #### [facility] (DEFAULT) [address] [place] [address] 81405 Immature Grans % 1.0 % Normal [facility] Comment on above: Performed By: #### U LYTR, UCRER #### [facility] (DEFAULT) [address] [address] Immature Grans Absolute 0.08 K/uL High <=0.07 [facility] Comment on above: Performed By: #### U LYTR, UCRER #### [facility] (DEFAULT) [address] [place] [address] 97018 Lymphocytes (Bld) [#/Vol] 0.61 10*3/uL Low 0.83-3.57 [facility] Comment on above: Performed By: #### U LYTR, UCRER #### [facility] (DEFAULT) [address] [address] Lymphocytes/100 WBC (Bld) 7.5 % Normal [facility] Comment on above: Performed By: #### U LYTR, UCRER #### [facility] (DEFAULT) [address] [address] MCV (RBC) [Entitic vol] 94.5 fL Normal 79.0-94.5 [facility] Comment on above: Result Comment: This is an appended report. These results have been appended to a previously preliminary verified report. Performed By: #### U LYTR, UCRER #### [facility] (DEFAULT) [address] [place] [address] 43811 Mean Cell Hgb 30.9 pg Normal 26.1-33.3 [facility] Comment on above: Result Comment: This is an appended report. These results have been appended to a previously preliminary verified report. Performed By: #### U LYTR, UCRER #### [facility] (DEFAULT) [address] [address] Mean Cell Hgb Conc 32.6 g/dL Normal 31.9-36.[address] [facility] Comment on above: Result Comment: This is an appended report. These results have been appended to a previously preliminary verified report. Performed By: #### U LYTR, UCRER #### [facility] (DEFAULT) [address] [address] Mean Platelet Volume Normal [facility] Comment on above: Result Comment: Not measured Performed By: #### U LYTR, UCRER #### [facility] (DEFAULT) [address] [address] Monocytes (Bld) [#/Vol] 1.12 10*3/uL High 0.24-0.93 [facility] Comment on above: Performed By: #### U LYTR, UCRER #### [facility] (DEFAULT) [address] [address] Monocytes/100 WBC (Bld) 13.8 % Normal [facility] Comment on above: Performed By: #### U LYTR, UCRER #### [facility] (DEFAULT) [address] [address] Nucleated RBC 0.0 /100 WBC Normal <=0.2 [facility] Comment on above: Performed By: #### U LYTR UCRER #### [facility] (DEFAULT) [address] [address] Platelets (Bld) [#/Vol] 368 10*3/uL High 146-337 [facility] Comment on above: Result Comment: This is an appended report. These results have been appended to a previously preliminary verified report. Performed By: #### Zamzam LYWILLIS UCRER #### [facility] (DEFAULT) [address] [address] RBC (Bld) [#/Vol] 2.56 10*6/uL Low 4.38-5.83 [facility] Comment on above: Result Comment: This is an appended report. These results have been appended to a previously preliminary verified report. Performed By: #### U LYWILLIS UCRER #### [facility] (DEFAULT) [address] [address] RBC Distribution 14.2 % Normal 10.9-14.3 [facility] Comment on above: Result Comment: This is an appended report. These results have been appended to a previously preliminary verified report. Performed By: #### U LYWILLIS UCRER #### [facility] (DEFAULT) [address] [address] Segs + Bands Auto 75.9 % Normal [facility] Comment on above: Performed By: #### U LYTR UCRER #### [facility] (DEFAULT) [address] [address] Segs + Bands,Absolute Auto 6.15 K/uL Normal 1.57-6.19 [facility] Comment on above: Performed By: #### U LYTR UCRER #### [facility] (DEFAULT) [address] [place] [address] WBC (Bld) [#/Vol] 8.11 10*3/uL Normal 3.73-10.10 [facility] Comment on above: Result Comment: This is an appended report. These results have been appended to a previously preliminary verified report. Performed By: #### U LYTR, UCRER #### [facility] (DEFAULT) [address] [place] [address] CHEM 7 (LYTES,BUN,CREA,GLUC) Ordered By: Peter Aragon on 06-12-2025 Anion gap [Moles/Vol] 14 mmol/L 7 - 17 mmol/L [facility] Chloride [Moles/Vol] 101 mmol/L 98 - 10 8 mmol/L [facility] CO2 [Moles/Vol] 25 mmol/L 21 - 31 mmol/L [facility] Creatinine [Mass/Vol] 1.14 mg/dL 0.70 - 1.30 mg/dL [facility] eGFR, CKD-EPI, Male 64 - PINF [facility] Comment on above: Reported eGFR is bas ed on the CKD-EPI 2020 equation using creatinine, age, and sex. Glucose [Mass/Vol] 83 mg/dL 70 - 179 mg/dL [facility] Interpretation and review of laboratory results Abnormal [facility] Osmolality Calc [Osmolality] 287 [facility] Potassium [Moles/Vol] 5.5 mmol/L High 3.5 - 5.0 mmol/L [facility] Comment on above: Specimen moderately hemolyzed. Potassium results may be falsey elevated by more than 0.8 mmol/L. Consider recollection. Sodium [Moles/Vol] 134 mmol/L Low 135 - 145 mmol/L [facility] Urea nitrogen [Mass/Vol] 24 mg/dL 7 - 25 mg/dL [facility] Urea nitrogen/Creatinine [Mass ratio] 21 [facility] 7 (LYTES,BUN,CREA,GLUC) on 06-12-2025 Anion gap [Moles/Vol] 14 mmol/L Normal 7-17 [facility] Comment on above: Performed By: #### S URGP #### [facility] (DEFAULT) [address] [place] [address] 98909 Chloride [Moles/Vol] 101 mmol/L Normal 98-108 [facility] Comment on above: Performed By: #### S URGP #### [facility] (DEFAULT) [address] [place] [address] 50581 CO2 [Moles/Vol] 25 mmol/L Normal 21-31 [facility] Comment on above: Performed By: #### S URGP #### [facility] (DEFAULT) [address] [place] [address] 59642 Creatinine [Mass/Vol] 1.14 mg/dL Normal 0.70-1.30 [facility] Comment on above: Performed By: #### S URGP #### [facility] (DEFAULT) [address] [place] [address] 27265 GFR/1.73 sq M.predicted among non-blacks MDRD (S/P/Bld) [Vol rate/Area] 62 mL/min/{1.73_m2} Normal >=60 [facility] Comment on above: Result Comment: Repo rted eGFR is based on the CKD-EPI 2020 equation using creatinine, age, and sex. Performed By: #### S URGP #### [facility] (DEFAULT) [address] [place] [address] 46486 Glucose [Mass/Vol] 83 mg/dL Normal Nonfastin -179 mg/dL; Fastin-99 [facility] Comment on above: Performed By: #### S URGP #### [facility] (DEFAULT) [address] [place] [address] 64592 Osmolality [Osmolality] 287 mosm/kg Normal 278-305 [facility] Comment on above: Performed By: #### S URGP #### [facility] (DEFAULT) [address] [place] [address] 96125 Potassium [Moles/Vol] 5.5 mmol/L High 3.5-5.0 [facility] Comment on above: Result Comment: Spec imen moderately hemolyzed. Potassium results may be falsey elevated by more than 0.8 mmol/L. Consider recollection. Performed By: #### S URGP #### [facility] (DEFAULT) [address] [place] [address] 08739 Sodium [Moles/Vol] 134 mmol/L Low 135-[address] [facility] Comment on above: Performed By: #### S URGP #### [facility] (DEFAULT) [address] [place] [address] 76441 Urea nitrogen [Mass/Vol] 24 mg/dL Normal 7-25 [facility] Comment on above: Performed By: #### S URGP #### [facility] (DEFAULT) [address] [place] [address] 60519 Urea nitrogen/Creatinine [Mass ratio] 21 mg/mg Normal [facility] Comment on above: Performed By: #### S URGP #### [facility] (DEFAULT) [address] [place] [address] 27652 CREATININE,RANDOM URINEon Creatinine (U) [Mass/Vol] 98.39 mg/dL [facility] Creatinine (U) [Mass/Vol] 98.39 mg/dL Normal [facility] Comment on above: Order Comment: The r eference range has not been established for random urine specimens. The test result should be integrated into the clinical context for interpretation. Performed By: #### U LYTR, UCRER #### [facility] (DEFAULT) [address] [place] [address] 10932 ECHOCARDIOGRAMon 06-12-2025 Echocardiography Normal LV size with [...] from the original result were not included. [facility] Facility [facility] Patient Information Patient Name Sebastian Hannon Legal [...] Role Read Date Nisa Quinonez MD Echo [place] 06/12/2025 Wall Scoring Score Index: 2.00 The [...] [place] (continu (more content not included)... Normal [facility] LYTES (NA, K, CL) - URINE - RANDOMon 06-12-2025 Chloride (24H U) [Moles/Vol] 36 mmol/L [facility] Potassium (24H U) [Moles/Vol] 29.2 mmol/L [facility] Sodium (24H U) [Moles/Vol] 34 mmol/L [facility] Sodium (U) [Moles/Vol] 34 mmol/L Normal [facility] Comment on above: Order Comment: The r eference range has not been established for random urine specimens. The test result should be integrated into the clinical context for interpretation. Performed By: #### U LYTR, UCRER #### [facility] (DEFAULT) [address] [address] Urine Chloride 36 mmol/L Normal [facility] Comment on above: Order Comment: The r eference range has not been established for random urine specimens. The test result should be integrated into the clinical context for interpretation. Performed By: #### U LYTR, UCRER #### [facility] (DEFAULT) [address] [place] [address] 29590 Urine Potassium 29.2 mmol/L Normal [facility] Comment on above: Order Comment: The r eference range has not been established for random urine specimens. The test result should be integrated into the clinical context for interpretation. Performed By: #### U LYTR, UCRER #### [facility] (DEFAULT) [address] [place] [address] 39547 MAGNESIUMon 06-12-2025 Magnesium [Mass/Vol] 2.2 mg/dL 1.6 - 2 .6 mg/dL [facility] Magnesium [Mass/Vol] 2.2 mg/dL Normal 1.6-2.6 [facility] Comment on above: Performed By: #### S URGP #### [facility] (DEFAULT) [address] [place] [address] 60152 No Panel Informationon 06-12 The reference range has not been established for random urine specimens. The test result should be integrated into the clinical context for interpretation. [facility] Interpretation and review of laboratory results Normal [facility] OSMOLALITY, URINEon 06-12-20 Interpretation and review of laboratory results Normal [facility] Osmolality (U) [Osmolality] 367 mosm/kg [facility] Osmolality, Urine 367 mOsm/kg Normal 300-[address] [facility] Comment on above: Performed By: #### C A, CHM7, IPB, T3RIA, MGO #### [facility] (DEFAULT) [address] [place] [address] 01380 PHOSPHATE, INORGANICon 06-12 Phosphate [Mass/Vol] 3.3 mg/dL 2.2 - 4 .6 mg/dL [facility] Phosphorous 3.3 mg/dL Normal 2.2-4.6 [facility] Comment on above: Performed By: #### S URGP #### [facility] (DEFAULT) [address] [place] [address] 48083 POTASSIUMOrdered By: Daniela valencia on 06-12-2025 Interpretation and review of laboratory results Normal [facility] Potassium [Moles/Vol] 4.0 mmol/L 3.5 - 5.0 mmol/L [facility] POTASSIUMon 06-12-2025 Potassium [Moles/Vol] 4.0 mmol/L Normal 3.5-5.0 [facility] Comment on above: Performed By: #### C A, CHM7, IPB, T3RIA, MGO #### [facility] (DEFAULT) [address] [address] PROTIME-INRon 06-12-2025 INR Coag (Bld) [Relative time] 3.9 {INR} High 0.9 - 1.1 [facility] Interpretation and review of laboratory results Abnormal [facility] PT Coag (PPP) [Time] 38.4 s High [facility] INR Coag (PPP) [Relative time] 3.9 {INR} High 0.9-1.1 [facility] Comment on above: Order Comment: Ongoi ng: Daily until INR is therapeutic for 2 consecutive days, then every 2 days for 14 days or until discharged. Performed By: #### P TI #### [facility] (DEFAULT) [address] [address] PT Coag (PPP) [Time] 38.4 s High 11.9-14.2 [facility] Comment on above: Order Comment: Ongoi ng: Daily until INR is therapeutic for 2 consecutive days, then every 2 days for 14 days or until discharged. Performed By: #### P TI #### [facility] (DEFAULT) [address] [place] [address]222 THYROID-STIMULATING IMMUNOGL OBULINon 06-12-2025 THYROID-STIMULATING IMMUNOGLOBULIN <1.0 Normal <=1.3 [facility] Comment on above: Result Comment: Test Performed by: [facility] [address] [place] [address] Occupational Therapy Instructor: Sha Graham Ph.D.; CLIA# [id number] Performed By: #### U LYWILLIS, UCRER #### [facility] (DEFAULT) [address] [address] THYROTROPIN RECEPTOR ANTIBOD Yon 06-12-2025 THYROTROPIN RECEPTOR AB <1.10 Normal 0.00-1.75 [facility] Comment on above: Result Comment: ADDITIONAL INFORMATION At a decision limit of 1.75 IU/L, this assay has 97% sensitivity and 99% specificity for detection of Graves' disease. In healthy individuals and in patients with thyroid disease without diagnosis of Graves' disease, the upper limit of anti-TSHR values are 1.22 IU/L and 1.58 IU/L, respectively (97.5th percentiles). Test Performed by: [facility] [address] [id number] Occupational Therapy Instructor: Sha Graham Ph.D.; CLIA# [id number] Performed By: #### Y TRAB #### [facility] (DEFAULT) [address] [place] [address] CALCIUMon 06-11-2025 Calcium [Mass/Vol] 9.1 mg/dL 8.6 - 10. 5 mg/dL [facility] Calcium [Mass/Vol] 9.1 mg/dL Normal 8.6-10.[address] [facility] Comment on above: Performed By: #### C A, CHM7, IPB, T3RIA, MGO #### [facility] (DEFAULT) [address] [place] [address] CBC AND ELECTRONIC DIFFon Basophils (Bld) [#/Vol] K/uL 0.00 - 0.09 K/uL [facility] Basophils/100 WBC (Bld) 0.5 % O [facility] Differential cell count method Nom (Bld) Electronic Differential [facility] Eosinophils (Bld) [#/Vol] 0.06 10*3/uL 0.00 - 0.48 K/uL [facility] Eosinophils/100 WBC (Bld) 1.0 % [facility] Erythrocyte distribution width (RBC) [Ratio] 13.7 % 10.9 - 14.3 % [facility] Hematocrit (Bld) [Volume fraction] 24.2 % Low 39.6 - 48.8 % [facility] Hemoglobin (Bld) [Mass/Vol] 7.7 g/dL Low 13.4 - 16.8 g/dL [facility] Immature granulocytes (Bld) [#/Vol] K/uL NINF - 0.07 K/uL [facility] Immature granulocytes/100 WBC (Bld) 0.5 % [facility] Interpretation and review of laboratory results Abnormal [facility] Lymphocytes (Bld) [#/Vol] 0.34 10*3/uL Low 0.83 - 3.57 K/uL [facility] Lymphocytes/100 WBC (Bld) 5.5 % [facility] MCH (RBC) [Entitic mass] 29.8 pg 26.1 - 33.3 pg [facility] MCHC (RBC) [Mass/Vol] 31.8 g/dL Low 31.9 - 36.5 g/dL [facility] MCV (RBC) [Entitic vol] 93.8 fL 79.0 - 94.5 fL [facility] Monocytes (Bld) [#/Vol] 0.77 10*3/uL 0.24 - 0.93 K/uL [facility] Monocytes/100 WBC (Bld) 12.4 % [facility] Neutrophils (Bld) [#/Vol] 4.99 10*3/uL 1.57 - 6.19 K/uL [facility] Nucleated RBC/100 WBC (Bld) [Ratio] 0.0 % [facility] Platelet mean volume (Bld) [Entitic vol] 10.2 fL 8.7 - 12.3 fL [facility] Platelets (Bld) [#/Vol] 183 10*3/uL 146 - 337 K/uL [facility] RBC (Bld) [#/Vol] 2.58 10*6/uL Low [facility] Segmented neutrophils/100 WBC (Bld) 80.1 % [facility] WBC (Bld) [#/Vol] 6.22 10*3/uL 3.73 - 10.10 K/uL [facility] Abs Baso Auto < Normal 0.00-0.09 [facility] Comment on above: Performed By: #### C A, CHM7, IPB, T3RIA, MGO #### [facility] (DEFAULT) [address] [place] [address] 80463 Basophils/100 WBC (Bld) 0.5 % Normal [facility] Comment on above: Performed By: #### C A, CHM7, IPB, T3RIA, MGO #### [facility] (DEFAULT) [address] [place] [address] 59957 DIFF STATUS Electronic Differential Normal [facility] Comment on above: Performed By: #### C A, CHM7, IPB, T3RIA, MGO #### [facility] (DEFAULT) [address] [place] [address] 85709 Eosinophils (Bld) [#/Vol] 0.06 10*3/uL Normal 0.00-0.48 [facility] Comment on above: Performed By: #### C A, CHM7, IPB, T3RIA, MGO #### [facility] (DEFAULT) [address] [place] [address] 91936 Eosinophils/100 WBC (Bld) 1.0 % Normal [facility] Comment on above: Performed By: #### C A, CHM7, IPB, T3RIA, MGO #### [facility] (DEFAULT) [address] [place] [address] 64649 Hematocrit (Bld) [Volume fraction] 24.2 % Low 39.6-48.8 [facility] Comment on above: Performed By: #### C A, CHM7, IPB, T3RIA, MGO #### [facility] (DEFAULT) [address] [place] [address] 35501 Hemoglobin (Bld) [Mass/Vol] 7.7 g/dL Low 13.4-16.8 [facility] Comment on above: Performed By: #### C A, CHM7, IPB, T3RIA, MGO #### [facility] (DEFAULT) [address] [place] [address] 86229 Immature Grans % 0.5 % Normal [facility] Comment on above: Performed By: #### C A, CHM7, IPB, T3RIA, MGO #### [facility] (DEFAULT) [address] [place] [address] 62350 Immature Grans Absolute < Normal <=0.07 [facility] Comment on above: Performed By: #### C A, CHM7, IPB, T3RIA, MGO #### [facility] (DEFAULT) [address] [place] [address] 44480 Lymphocytes (Bld) [#/Vol] 0.34 10*3/uL Low 0.83-3.57 [facility] Comment on above: Performed By: #### C A, CHM7, IPB, T3RIA, MGO #### [facility] (DEFAULT) [address] [place] [address] 68071 Lymphocytes/100 WBC (Bld) 5.5 % Normal [facility] Comment on above: Performed By: #### C A, CHM7, IPB, T3RIA, MGO #### [facility] (DEFAULT) [address] [place] [address] 75295 MCV (RBC) [Entitic vol] 93.8 fL Normal 79.0-94.5 [facility] Comment on above: Performed By: #### C A, CHM7, IPB, T3RIA, MGO #### [facility] (DEFAULT) [address] [place] [address] 34827 Mean Cell Hgb 29.8 pg Normal 26.1-33.3 [facility] Comment on above: Performed By: #### C A, CHM7, IPB, T3RIA, MGO #### [facility] (DEFAULT) [address] [place] [address] 78356 Mean Cell Hgb Conc 31.8 g/dL Low 31.9-36.[address] [facility] Comment on above: Performed By: #### C A, CHM7, IPB, T3RIA, MGO #### [facility] (DEFAULT) [address] [place] [address] 21041 Monocytes (Bld) [#/Vol] 0.77 10*3/uL Normal 0.24-0.93 [facility] Comment on above: Performed By: #### C A, CHM7, IPB, T3RIA, MGO #### [facility] (DEFAULT) [address] [place] [address] 22940 Monocytes/100 WBC (Bld) 12.4 % Normal [facility] Comment on above: Performed By: #### C A, CHM7, IPB, T3RIA, MGO #### [facility] (DEFAULT) [address] [place] [address] 72118 Nucleated RBC 0.0 /100 WBC Normal <=0.2 [facility] Comment on above: Performed By: #### C A, CHM7, IPB, T3RIA, MGO #### [facility] (DEFAULT) [address] [place] [address] 73614 Platelet mean volume (Bld) [Entitic vol] 10.2 fL Normal 8.7-12.3 [facility] Comment on above: Performed By: #### C A, CHM7, IPB, T3RIA, MGO #### [facility] (DEFAULT) [address] [place] [address] 21517 Platelets (Bld) [#/Vol] 183 10*3/uL Normal 146-337 [facility] Comment on above: Performed By: #### C A, CHM7, IPB, T3RIA, MGO #### [facility] (DEFAULT) [address] [place] [address] 88394 RBC (Bld) [#/Vol] 2.58 10*6/uL Low 4.38-5.83 [facility] Comment on above: Performed By: #### C A, CHM7, IPB, T3RIA, MGO #### [facility] (DEFAULT) [address] [place] [address] 64898 RBC Distribution 13.7 % Normal 10.9-14.3 [facility] Comment on above: Performed By: #### C A, CHM7, IPB, T3RIA, MGO #### [facility] (DEFAULT) [address] [place] [address] 83283 Segs + Bands Auto 80.1 % Normal [facility] Comment on above: Performed By: #### C A, CHM7, IPB, T3RIA, MGO #### [facility] (DEFAULT) [address] [place] [address] 66084 Segs + Bands,Absolute Auto 4.99 K/uL Normal 1.57-6.19 [facility] Comment on above: Performed By: #### C A, CHM7, IPB, T3RIA, MGO #### [facility] (DEFAULT) [address] [place] [address] 26536 WBC (Bld) [#/Vol] 6.22 10*3/uL Normal 3.73-10.10 [facility] Comment on above: Performed By: #### C A, CHM7, IPB, T3RIA, MGO #### [facility] (DEFAULT) [address] [place] [address] 24658 CHEM 7 (LYTES,BUN,CREA,GLUC) on 06-11-2025 Anion gap [Moles/Vol] 13 mmol/L 7 - 17 mmol/L [facility] Chloride [Moles/Vol] 101 mmol/L 98 - 10 8 mmol/L [facility] CO2 [Moles/Vol] 27 mmol/L 21 - 31 mmol/L [facility] Creatinine [Mass/Vol] 1.12 mg/dL 0.70 - 1.30 mg/dL [facility] Male 66 - PINF [facility] Comment on above: Reported eGFR is bas ed on the CKD-EPI 2020 equation using creatinine, age, and sex. Glucose [Mass/Vol] 91 mg/dL 70 - 179 mg/dL [facility] Osmolality Calc [Osmolality] 290 [facility] Potassium [Moles/Vol] 3.6 mmol/L 3.5 - 5.0 mmol/L [facility] Sodium [Moles/Vol] 137 mmol/L 135 - 145 mmol/L [facility] Urea nitrogen [Mass/Vol] 23 mg/dL 7 - 25 mg/dL [facility] Urea nitrogen/Creatinine [Mass ratio] 21 mg/mg [facility] Anion gap [Moles/Vol] 13 mmol/L Normal 7-17 [facility] Comment on above: Performed By: #### C Kelly, CHM7, IPB, T3RIA, MGO #### [facility] (DEFAULT) [address] [place] [address] 26937 Chloride [Moles/Vol] 101 mmol/L Normal 98-108 [facility] Comment on above: Performed By: #### C Kelly, CHM7, IPB, T3RIA, MGO #### [facility] (DEFAULT) [address] [place] [address] 73310 CO2 [Moles/Vol] 27 mmol/L Normal 21-31 [facility] Comment on above: Performed By: #### C A, CHM7, IPB, T3RIA, MGO #### [facility] (DEFAULT) [address] [place] [address] 45380 Creatinine [Mass/Vol] 1.12 mg/dL Normal 0.70-1.30 [facility] Comment on above: Performed By: #### C A, CHM7, IPB, T3RIA, MGO #### [facility] (DEFAULT) [address] [place] [address] 97818 GFR/1.73 sq M.predicted among non-blacks MDRD (S/P/Bld) [Vol rate/Area] 64 mL/min/{1.73_m2} Normal >=60 [facility] Comment on above: Result Comment: Repo rted eGFR is based on the CKD-EPI 2020 equation using creatinine, age, and sex. Performed By: #### C A, CHM7, IPB, T3RIA, MGO #### [facility] (DEFAULT) [address] [place] [address] 86953 Glucose [Mass/Vol] 91 mg/dL Normal Nonfastin -179 mg/dL; Fastin-99 [facility] Comment on above: Performed By: #### C A, CHM7, IPB, T3RIA, MGO #### [facility] (DEFAULT) [address] [place] [address] 43491 Osmolality [Osmolality] 290 mosm/kg Normal 278-305 [facility] Comment on above: Performed By: #### C A, CHM7, IPB, T3RIA, MGO #### [facility] (DEFAULT) [address] [place] [address] 66207 Potassium [Moles/Vol] 3.6 mmol/L Normal 3.5-5.0 [facility] Comment on above: Performed By: #### C A, CHM7, IPB, T3RIA, MGO #### [facility] (DEFAULT) [address] [place] [address] 49433 Sodium [Moles/Vol] 137 mmol/L Normal 135-[address] [facility] Comment on above: Performed By: #### C A, CHM7, IPB, T3RIA, MGO #### [facility] (DEFAULT) [address] [place] [address] 23845 Urea nitrogen [Mass/Vol] 23 mg/dL Normal 7-25 [facility] Comment on above: Performed By: #### C A, CHM7, IPB, T3RIA, MGO #### [facility] (DEFAULT) [address] [place] [address] 52453 Urea nitrogen/Creatinine [Mass ratio] 21 mg/mg Normal [facility] Comment on above: Performed By: #### GERMAIN Valencia, IPB, T3RIA, MGO #### [facility] (DEFAULT) [address] [place] [address] 12264 MAGNESIUMon 06-11-2025 Magnesium [Mass/Vol] 1.6 mg/dL 1.6 - 2 .6 mg/dL [facility] Magnesium [Mass/Vol] 1.6 mg/dL Normal 1.6-2.6 [facility] Comment on above: Performed By: #### GERMAIN Valencia, ORESTES, T3RIA, MGO #### [facility] (DEFAULT) [address] [place] [address] 98087 No Panel Informationon 06-11 Interpretation and review of laboratory results Normal [facility] PHOSPHATE, INORGANICon 06-11 Phosphate [Mass/Vol] 3.1 mg/dL 2.2 - 4 .6 mg/dL [facility] Phosphorous 3.1 mg/dL Normal 2.2-4.6 [facility] Comment on above: Performed By: #### Antoine Mendoza, GERMAIN, IPB, T3RIA, MGO #### [facility] (DEFAULT) [address] [place] [address] 64815 PROTIME-INRon 06-11-2025 INR Coag (Bld) [Relative time] 3.9 {INR} High 0.9 - 1.1 [facility] Interpretation and review of laboratory results Abnormal [facility] PT Coag (PPP) [Time] 38.8 s High [facility] INR Coag (PPP) [Relative time] 3.9 {INR} High 0.9-1.1 [facility] Comment on above: Order Comment: The r eference range has not been established for random urine specimens. The test result should be integrated into the clinical context for interpretation. Performed By: #### U LYTR, UCRER #### [facility] (DEFAULT) [address] [place] [address] 53778 PT Coag (PPP) [Time] 38.8 s High 11.9-14.2 [facility] Comment on above: Order Comment: The r eference range has not been established for random urine specimens. The test result should be integrated into the clinical context for interpretation. Performed By: #### U JAMES UCRER #### [facility] (DEFAULT) [address] [place] [address] 64497 CALCIUMon 06-10-2025 Calcium [Mass/Vol] 9.4 mg/dL 8.6 - 10. 5 mg/dL [facility] Calcium [Mass/Vol] 9.4 mg/dL Normal 8.6-10.[address] [facility] Comment on above: Performed By: #### C A, CHM7, IPB, T3RIA, MGO #### [facility] (DEFAULT) [address] [place] [address] 95796 CBC AND ELECTRONIC DIFFon Basophils (Bld) [#/Vol] K/uL 0.00 - 0.09 K/uL [facility] Basophils/100 WBC (Bld) 0.4 % [facility] Differential cell count method Nom (Bld) Electronic Differential [facility] Eosinophils (Bld) [#/Vol] K/uL 0.00 - 0.48 K/uL [facility] Eosinophils/100 WBC (Bld) 0.5 % [facility] Erythrocyte distribution width (RBC) [Ratio] 13.8 % 10.9 - 14.3 % [facility] Hematocrit (Bld) [Volume fraction] 24.4 % Low 39.6 - 48.8 % [facility] Hemoglobin (Bld) [Mass/Vol] 7.9 g/dL Low 13.4 - 16.8 g/dL [facility] Immature granulocytes (Bld) [#/Vol] K/uL NINF - 0.07 K/uL [facility] Immature granulocytes/100 WBC (Bld) 0.5 % [facility] Interpretation and review of laboratory results Abnormal [facility] Lymphocytes (Bld) [#/Vol] 0.39 10*3/uL Low 0.83 - 3.57 K/uL [facility] Lymphocytes/100 WBC (Bld) 7.0 % [facility] MCH (RBC) [Entitic mass] 30.2 pg 26.1 - 33.3 pg [facility] MCHC (RBC) [Mass/Vol] 32.4 g/dL 31.9 - 36.5 g/dL [facility] MCV (RBC) [Entitic vol] 93.1 fL 79.0 - 94.5 fL [facility] Monocytes (Bld) [#/Vol] 0.62 10*3/uL 0.24 - 0.93 K/uL [facility] Monocytes/100 WBC (Bld) 11.1 % [facility] Neutrophils (Bld) [#/Vol] 4.48 10*3/uL 1.57 - 6.19 K/uL [facility] Nucleated RBC/100 WBC (Bld) [Ratio] 0.0 % [facility] Platelet mean volume (Bld) [Entitic vol] 10.0 fL 8.7 - 12.3 fL [facility] Platelets (Bld) [#/Vol] 169 10*3/uL 146 - 337 K/uL [facility] RBC (Bld) [#/Vol] 2.62 10*6/uL Low [facility] Segmented neutrophils/100 WBC (Bld) 80.5 % [facility] WBC (Bld) [#/Vol] 5.57 10*3/uL 3.73 - 10.10 K/uL [facility] Abs Baso Auto < Normal 0.00-0.09 [facility] Comment on above: Performed By: #### C A, CHM7, IPB, T3RIA, MGO #### [facility] (DEFAULT) [address] [place] [address] 42284 Abs Eos Auto < Normal 0.00-0.48 [facility] Comment on above: Performed By: #### C Kelly, CHM7, IPB, T3RIA, MGO #### [facility] (DEFAULT) [address] [place] [address] 28082 Basophils/100 WBC (Bld) 0.4 % Normal [facility] Comment on above: Performed By: #### C A, CHM7, IPB, T3RIA, MGO #### [facility] (DEFAULT) [address] [place] [address] 47986 DIFF STATUS Electronic Differential Normal [facility] Comment on above: Performed By: #### C A, CHM7, IPB, T3RIA, MGO #### [facility] (DEFAULT) [address] [place] [address] 95284 Eosinophils/100 WBC (Bld) 0.5 % Normal [facility] Comment on above: Performed By: #### C Kelly, CHM7, IPB, T3RIA, MGO #### [facility] (DEFAULT) [address] [place] [address] 30032 Hematocrit (Bld) [Volume fraction] 24.4 % Low 39.6-48.8 [facility] Comment on above: Performed By: #### C Kelly, CHM7, IPB, T3RIA, MGO #### [facility] (DEFAULT) [address] [place] [address] 56649 Hemoglobin (Bld) [Mass/Vol] 7.9 g/dL Low 13.4-16.8 [facility] Comment on above: Performed By: #### C A, CHM7, IPB, T3RIA, MGO #### [facility] (DEFAULT) [address] [place] [address] 79941 Immature Grans % 0.5 % Normal [facility] Comment on above: Performed By: #### C A, CHM7, IPB, T3RIA, MGO #### [facility] (DEFAULT) [address] [place] [address] 14089 Immature Grans Absolute < Normal <=0.07 [facility] Comment on above: Performed By: #### C A, CHM7, IPB, T3RIA, MGO #### [facility] (DEFAULT) [address] [place] [address] 31249 Lymphocytes (Bld) [#/Vol] 0.39 10*3/uL Low 0.83-3.57 [facility] Comment on above: Performed By: #### C A, CHM7, IPB, T3RIA, MGO #### [facility] (DEFAULT) [address] [place] [address] 28579 Lymphocytes/100 WBC (Bld) 7.0 % Normal [facility] Comment on above: Performed By: #### C A, CHM7, IPB, T3RIA, MGO #### [facility] (DEFAULT) [address] [place] [address] 54165 MCV (RBC) [Entitic vol] 93.1 fL Normal 79.0-94.5 [facility] Comment on above: Performed By: #### C A, CHM7, IPB, T3RIA, MGO #### [facility] (DEFAULT) [address] [place] [address] 67239 Mean Cell Hgb 30.2 pg Normal 26.1-33.3 [facility] Comment on above: Performed By: #### C A, CHM7, IPB, T3RIA, MGO #### [facility] (DEFAULT) [address] [place] [address] 54138 Mean Cell Hgb Conc 32.4 g/dL Normal 31.9-36.[address] [facility] Comment on above: Performed By: #### C A, CHM7, IPB, T3RIA, MGO #### [facility] (DEFAULT) [address] [place] [address] 48224 Monocytes (Bld) [#/Vol] 0.62 10*3/uL Normal 0.24-0.93 [facility] Comment on above: Performed By: #### C A, CHM7, IPB, T3RIA, MGO #### [facility] (DEFAULT) [address] [place] [address] 43944 Monocytes/100 WBC (Bld) 11.1 % Normal [facility] Comment on above: Performed By: #### C A, CHM7, IPB, T3RIA, MGO #### [facility] (DEFAULT) [address] [place] [address] 02344 Nucleated RBC 0.0 /100 WBC Normal <=0.2 [facility] Comment on above: Performed By: #### C A, CHM7, IPB, T3RIA, MGO #### [facility] (DEFAULT) [address] [place] [address] 48043 Platelet mean volume (Bld) [Entitic vol] 10.0 fL Normal 8.7-12.3 [facility] Comment on above: Performed By: #### C A, CHM7, IPB, T3RIA, MGO #### [facility] (DEFAULT) [address] [place] [address] 43942 Platelets (Bld) [#/Vol] 169 10*3/uL Normal 146-337 [facility] Comment on above: Performed By: #### C A, CHM7, IPB, T3RIA, MGO #### [facility] (DEFAULT) [address] [place] [address] 86936 RBC (Bld) [#/Vol] 2.62 10*6/uL Low 4.38-5.83 [facility] Comment on above: Performed By: #### C A, CHM7, IPB, T3RIA, MGO #### [facility] (DEFAULT) [address] [place] [address] 99638 RBC Distribution 13.8 % Normal 10.9-14.3 [facility] Comment on above: Performed By: #### C A, CHM7, IPB, T3RIA, MGO #### [facility] (DEFAULT) [address] [place] [address] 13425 Segs + Bands Auto 80.5 % Normal [facility] Comment on above: Performed By: #### C A, CHM7, IPB, T3RIA, MGO #### [facility] (DEFAULT) [address] [place] [address] 43020 Segs + Bands,Absolute Auto 4.48 K/uL Normal 1.57-6.19 [facility] Comment on above: Performed By: #### C A, CHM7, IPB, T3RIA, MGO #### [facility] (DEFAULT) [address] [place] [address] 45387 WBC (Bld) [#/Vol] 5.57 10*3/uL Normal 3.73-10.10 [facility] Comment on above: Performed By: #### C A, CHM7, IPB, T3RIA, MGO #### [facility] (DEFAULT) [address] [place] [address] 54192 CHEM 7 (LYTES,BUN,CREA,GLUC) on 06-10-2025 Anion gap [Moles/Vol] 12 mmol/L 7 - 17 mmol/L [facility] Chloride [Moles/Vol] 102 mmol/L 98 - 10 8 mmol/L [facility] CO2 [Moles/Vol] 27 mmol/L 21 - 31 mmol/L [facility] Creatinine [Mass/Vol] 1.25 mg/dL 0.70 - 1.30 mg/dL [facility] eGFR, CKD-EPI, Male 58 Low - PINF [facility] Comment on above: Reported eGFR is bas ed on the CKD-EPI 2020 equation using creatinine, age, and sex. Glucose [Mass/Vol] 102 mg/dL 70 - 179 mg/dL [facility] Interpretation and review of laboratory results Abnormal [facility] Osmolality Calc [Osmolality] 293 [facility] Potassium [Moles/Vol] 3.4 mmol/L Low 3.5 - 5.0 mmol/L [facility] Sodium [Moles/Vol] 138 mmol/L 135 - 145 mmol/L [facility] Urea nitrogen [Mass/Vol] 26 mg/dL High 7 - 25 mg/dL [facility] Urea nitrogen/Creatinine [Mass ratio] 21 mg/mg [facility] Anion gap [Moles/Vol] 12 mmol/L Normal 7-17 [facility] Comment on above: Performed By: #### C A, CHM7, IPB, T3RIA, MGO #### [facility] (DEFAULT) [address] [place] [address] 35865 Chloride [Moles/Vol] 102 mmol/L Normal 98-108 [facility] Comment on above: Performed By: #### C A, CHM7, IPB, T3RIA, MGO #### [facility] (DEFAULT) [address] [place] [address] 17502 CO2 [Moles/Vol] 27 mmol/L Normal 21-31 [facility] Comment on above: Performed By: #### C A, CHM7, IPB, T3RIA, MGO #### [facility] (DEFAULT) [address] [place] [address] 07451 Creatinine [Mass/Vol] 1.25 mg/dL Normal 0.70-1.30 [facility] Comment on above: Performed By: #### C A, CHM7, IPB, T3RIA, MGO #### [facility] (DEFAULT) [address] [place] [address] 29577 GFR/1.73 sq M.predicted among non-blacks MDRD (S/P/Bld) [Vol rate/Area] 56 mL/min/{1.73_m2} Low >=60 [facility] Comment on above: Result Comment: Repo rted eGFR is based on the CKD-EPI 2020 equation using creatinine, age, and sex. Performed By: #### Antoine Mendoza, CHM7, IPB, T3RIA, MGO #### [facility] (DEFAULT) [address] [place] [address] 11686 Glucose [Mass/Vol] 102 mg/dL Normal Nonfastin -179 mg/dL; Fastin-99 [facility] Comment on above: Performed By: #### Antoine Mendoza, CHM7, IPB, T3RIA, MGO #### [facility] (DEFAULT) [address] [place] [address] 78307 Osmolality [Osmolality] 293 mosm/kg Normal 278-305 [facility] Comment on above: Performed By: #### Antoine Mendoza, CHM7, IPB, T3RIA, MGO #### [facility] (DEFAULT) [address] [place] [address] 92342 Potassium [Moles/Vol] 3.4 mmol/L Low 3.5-5.0 [facility] Comment on above: Performed By: #### Antoine Mendoza, CHM7, IPB, T3RIA, MGO #### [facility] (DEFAULT) [address] [place] [address] 99032 Sodium [Moles/Vol] 138 mmol/L Normal 135-[address] [facility] Comment on above: Performed By: #### Antoine Mendoza, CHM7, IPB, T3RIA, MGO #### [facility] (DEFAULT) [address] [place] [address] 95989 Urea nitrogen [Mass/Vol] 26 mg/dL High 7-25 [facility] Comment on above: Performed By: #### Antoine Mendoza, CHM7, IPB, T3RIA, MGO #### [facility] (DEFAULT) [address] [place] [address] 93744 Urea nitrogen/Creatinine [Mass ratio] 21 mg/mg Normal [facility] Comment on above: Performed By: #### C A, CHM7, IPB, T3RIA, MGO #### [facility] (DEFAULT) [address] [place] [address] EXTRA MICROon 06-10-2025 [facility] HIGH SENSITIVITY TROPONIN I - SINGLE ORDEROrdered By: Bob Garcia on 06-10-2025 Interpretation and review of laboratory results Abnormal [facility] Troponin I.cardiac High sensitivity method [Mass/Vol] 123 ng/L High NINF - 53 ng/L [facility] Comment on above: Suggestive of myocar dial injury [facility] HIGH SENSITIVITY TROPONIN I - SINGLE ORDERon 06-10-2025 hs-Troponin I 123 ng/L High <53 [facility] Comment on above: Order Comment: Acute Coronary Syndrome (ACS): Initial Evaluation and Management:[email or web address]%[email or web address] Result Comment: Sugg estive of myocardial injury Performed By: #### C Kelly, CHM7, IPB, T3RIA, MGO #### [facility] (DEFAULT) [address] [place] [address] 89176 MAGNESIUMon 06-10-2025 Magnesium [Mass/Vol] 1.9 mg/dL 1.6 - 2 .6 mg/dL [facility] Magnesium [Mass/Vol] 1.9 mg/dL Normal 1.6-2.6 [facility] Comment on above: Performed By: #### C Kelly, CHM7, IPB, T3RIA, MGO #### [facility] (DEFAULT) [address] [place] [address] No Panel Informationon 06-10 Interpretation and review of laboratory results Normal [facility] PHOSPHATE, INORGANICon 06-10 Phosphate [Mass/Vol] 3.2 mg/dL 2.2 - 4 .6 mg/dL [facility] Phosphorous 3.2 mg/dL Normal 2.2-4.6 [facility] Comment on above: Performed By: #### C A, CHM7, IPB, T3RIA, MGO #### [facility] (DEFAULT) [address] [place] [address] 11982 PROTIME-INRon 06-10-2025 INR Coag (Bld) [Relative time] 3.9 {INR} High 0.9 - 1.1 [facility] Interpretation and review of laboratory results Abnormal [facility] PT Coag (PPP) [Time] 38.8 s High [facility] INR Coag (PPP) [Relative time] 3.9 {INR} High 0.9-1.1 [facility] Comment on above: Performed By: #### U LYWILLIS UCRER #### [facility] (DEFAULT) [address] [place] [address] [phone] PT Coag (PPP) [Time] 38.8 s High 11.9-14.2 [facility] Comment on above: Performed By: #### U LYTR UCRER #### [facility] (DEFAULT) [address] [place] [address] 28386 TROPONIN 1 HOURon 06-10-2025 Delta hs-Troponin I 5 ng/L NINF - 1 5 ng/L [facility] Interpretation and review of laboratory results Abnormal [facility] Troponin I.cardiac High sensitivity method [Mass/Vol] 126 ng/L High NINF - 53 ng/L [facility] Comment on above: Suggestive of myocar dial injury [facility] 1 Hour hs-Troponin 126 ng/L High <[address] [facility] Comment on above: Order Comment: The r eference range has not been established for random urine specimens. The test result should be integrated into the clinical context for interpretation. Result Comment: Sugg estive of myocardial injury Performed By: #### U LYTR UCRER #### [facility] (DEFAULT) [address] [place] [address] 53149 Delta hs-Troponin I 5 ng/L Normal <=15 [facility] Comment on above: Order Comment: The r eference range has not been established for random urine specimens. The test result should be integrated into the clinical context for interpretation. Performed By: #### U LOIS RAMIREZ #### [facility] (DEFAULT) [address] [place] [address] TROPONIN I INITIALon 025 Interpretation and review of laboratory results Abnormal [facility] Troponin I.cardiac High sensitivity method [Mass/Vol] 121 ng/L High NINF - 53 ng/L [facility] Comment on above: Suggestive of myocar dial injury [facility] hs-Troponin I 121 ng/L High <53 [facility] Comment on above: Order Comment: Acute Coronary Syndrome (ACS): Initial Evaluation and Management:[email or web address] Result Comment: Sugg estive of myocardial injury Performed By: #### C A, CHM7, IPB, T3RIA, MGO #### [facility] (DEFAULT) [address] [place] [address] CALCIUMon 06-09-2025 Calcium [Mass/Vol] 9.3 mg/dL 8.6 - 10. 5 mg/dL [facility] Interpretation and review of laboratory results Normal [facility] Calcium [Mass/Vol] 9.3 mg/dL Normal 8.6-10.[address] [facility] Comment on above: Performed By: #### C A, CHM7, IPB, T3RIA, MGO #### [facility] (DEFAULT) [address] [place] [address] 13530 CBC AND ELECTRONIC DIFFon Basophils (Bld) [#/Vol] K/uL 0.00 - 0.09 K/uL [facility] Basophils/100 WBC (Bld) 0.6 % O [facility] Differential cell count method Nom (Bld) Electronic Differential [facility] Eosinophils (Bld) [#/Vol] K/uL 0.00 - 0.48 K/uL [facility] Eosinophils/100 WBC (Bld) 0.4 % [facility] Erythrocyte distribution width (RBC) [Ratio] 13.6 % 10.9 - 14.3 % [facility] Hematocrit (Bld) [Volume fraction] 24.1 % Low 39.6 - 48.8 % [facility] Hemoglobin (Bld) [Mass/Vol] 8.0 g/dL Low 13.4 - 16.8 g/dL [facility] Immature granulocytes (Bld) [#/Vol] K/uL NINF - 0.07 K/uL [facility] Immature granulocytes/100 WBC (Bld) 0.4 % [facility] Interpretation and review of laboratory results Abnormal [facility] Lymphocytes (Bld) [#/Vol] 0.44 10*3/uL Low 0.83 - 3.57 K/uL [facility] Lymphocytes/100 WBC (Bld) 8.1 % [facility] MCH (RBC) [Entitic mass] 30.9 pg 26.1 - 33.3 pg [facility] MCHC (RBC) [Mass/Vol] 33.2 g/dL 31.9 - 36.5 g/dL [facility] MCV (RBC) [Entitic vol] 93.1 fL 79.0 - 94.5 fL [facility] Monocytes (Bld) [#/Vol] 0.65 10*3/uL 0.24 - 0.93 K/uL [facility] Monocytes/100 WBC (Bld) 12.0 % [facility] Neutrophils (Bld) [#/Vol] 4.26 10*3/uL 1.57 - 6.19 K/uL [facility] Nucleated RBC/100 WBC (Bld) [Ratio] 0.0 % [facility] Platelet mean volume (Bld) [Entitic vol] 10.0 fL 8.7 - 12.3 fL [facility] Platelets (Bld) [#/Vol] 170 10*3/uL 146 - 337 K/uL [facility] RBC (Bld) [#/Vol] 2.59 10*6/uL Low [facility] Segmented neutrophils/100 WBC (Bld) 78.5 % [facility] WBC (Bld) [#/Vol] 5.42 10*3/uL 3.73 - 10.10 K/uL [facility] Abs Baso Auto < Normal 0.00-0.09 [facility] Comment on above: Performed By: #### U LYTR, UCRER #### [facility] (DEFAULT) [address] [address] Abs Eos Auto < Normal 0.00-0.48 [facility] Comment on above: Performed By: #### U LYTR, UCRER #### [facility] (DEFAULT) [address] [address] Basophils/100 WBC (Bld) 0.6 % Normal [facility] Comment on above: Performed By: #### U LYTR, UCRER #### [facility] (DEFAULT) [address] [address] DIFF STATUS Electronic Differential Normal [facility] Comment on above: Performed By: #### U LYTR, UCRER #### [facility] (DEFAULT) [address] [address] Eosinophils/100 WBC (Bld) 0.4 % Normal [facility] Comment on above: Performed By: #### U LYTR, UCRER #### [facility] (DEFAULT) [address] [address] Hematocrit (Bld) [Volume fraction] 24.1 % Low 39.6-48.8 [facility] Comment on above: Performed By: #### U LYTR, UCRER #### [facility] (DEFAULT) [address] [address] Hemoglobin (Bld) [Mass/Vol] 8.0 g/dL Low 13.4-16.8 [facility] Comment on above: Performed By: #### U LYTR, UCRER #### [facility] (DEFAULT) [address] [address] Immature Grans % 0.4 % Normal [facility] Comment on above: Performed By: #### U LYTR, UCRER #### [facility] (DEFAULT) [address] [address] Immature Grans Absolute < Normal <=0.07 [facility] Comment on above: Performed By: #### U LYTR, UCRER #### [facility] (DEFAULT) [address] [address] Lymphocytes (Bld) [#/Vol] 0.44 10*3/uL Low 0.83-3.57 [facility] Comment on above: Performed By: #### U LYTR, UCRER #### [facility] (DEFAULT) [address] [address] Lymphocytes/100 WBC (Bld) 8.1 % Normal [facility] Comment on above: Performed By: #### U LYTR, UCRER #### [facility] (DEFAULT) [address] [address] MCV (RBC) [Entitic vol] 93.1 fL Normal 79.0-94.5 [facility] Comment on above: Performed By: #### U LYTR, UCRER #### [facility] (DEFAULT) [address] [address] Mean Cell Hgb 30.9 pg Normal 26.1-33.3 [facility] Comment on above: Performed By: #### U LYTR, UCRER #### [facility] (DEFAULT) [address] [address] Mean Cell Hgb Conc 33.2 g/dL Normal 31.9-36.[address] [facility] Comment on above: Performed By: #### U LYTR, UCRER #### [facility] (DEFAULT) [address] [place] [address] 43011 Monocytes (Bld) [#/Vol] 0.65 10*3/uL Normal 0.24-0.93 [facility] Comment on above: Performed By: #### U LYTR, UCRER #### [facility] (DEFAULT) [address] [place] [address] 70600 Monocytes/100 WBC (Bld) 12.0 % Normal [facility] Comment on above: Performed By: #### U LYTR, UCRER #### [facility] (DEFAULT) [address] [place] [address] 90187 Nucleated RBC 0.0 /100 WBC Normal <=0.2 [facility] Comment on above: Performed By: #### U LYTR, UCRER #### [facility] (DEFAULT) [address] [place] [address] 59110 Platelet mean volume (Bld) [Entitic vol] 10.0 fL Normal 8.7-12.3 [facility] Comment on above: Performed By: #### U LYTR, UCRER #### [facility] (DEFAULT) [address] [place] [address] 74703 Platelets (Bld) [#/Vol] 170 10*3/uL Normal 146-337 [facility] Comment on above: Performed By: #### U LYTR, UCRER #### [facility] (DEFAULT) [address] [place] [address] 17211 RBC (Bld) [#/Vol] 2.59 10*6/uL Low 4.38-5.83 [facility] Comment on above: Performed By: #### U LYTR, UCRER #### [facility] (DEFAULT) [address] [place] [address] 71180 RBC Distribution 13.6 % Normal 10.9-14.3 [facility] Comment on above: Performed By: #### U LYTR, UCRER #### [facility] (DEFAULT) [address] [place] [address] 47817 Segs + Bands Auto 78.5 % Normal [facility] Comment on above: Performed By: #### U LYTR, UCRER #### [facility] (DEFAULT) [address] [place] [address] 32348 Segs + Bands,Absolute Auto 4.26 K/uL Normal 1.57-6.19 [facility] Comment on above: Performed By: #### U LYTR, UCRER #### [facility] (DEFAULT) [address] [place] [address] 95414 WBC (Bld) [#/Vol] 5.42 10*3/uL Normal 3.73-10.10 [facility] Comment on above: Performed By: #### U LYTR, UCRER #### [facility] (DEFAULT) [address] [place] [address] 51117 CHEM 7 (LYTES,BUN,CREA,GLUC) on 06-09-2025 Anion gap [Moles/Vol] 13 mmol/L 7 - 17 mmol/L [facility] Chloride [Moles/Vol] 101 mmol/L 98 - 10 8 mmol/L [facility] CO2 [Moles/Vol] 26 mmol/L 21 - 31 mmol/L [facility] Creatinine [Mass/Vol] 1.46 mg/dL High 0.70 - 1.30 mg/dL [facility] eGFR, CKD-EPI, Male 46 Low - PINF [facility] Comment on above: Reported eGFR is bas ed on the CKD-EPI 2020 equation using creatinine, age, and sex. Glucose [Mass/Vol] 123 mg/dL 70 - 179 mg/dL [facility] Osmolality Calc [Osmolality] 294 [facility] Potassium [Moles/Vol] 3.4 mmol/L Low 3.5 - 5.0 mmol/L [facility] Sodium [Moles/Vol] 137 mmol/L 135 - 145 mmol/L [facility] Urea nitrogen [Mass/Vol] 30 mg/dL High 7 - 25 mg/dL [facility] Urea nitrogen/Creatinine [Mass ratio] 21 mg/mg [facility] Anion gap [Moles/Vol] 13 mmol/L Normal 7-17 [facility] Comment on above: Performed By: #### C A, CHM7, IPB, T3RIA, MGO #### [facility] (DEFAULT) [address] [place] [address] 34424 Chloride [Moles/Vol] 101 mmol/L Normal 98-108 [facility] Comment on above: Performed By: #### C A, CHM7, IPB, T3RIA, MGO #### [facility] (DEFAULT) [address] [place] [address] 90003 CO2 [Moles/Vol] 26 mmol/L Normal 21-31 [facility] Comment on above: Performed By: #### C A, CHM7, IPB, T3RIA, MGO #### [facility] (DEFAULT) [address] [place] [address] 32750 Creatinine [Mass/Vol] 1.46 mg/dL High 0.70-1.30 [facility] Comment on above: Performed By: #### C A, CHM7, IPB, T3RIA, MGO #### [facility] (DEFAULT) [address] [place] [address] 99752 GFR/1.73 sq M.predicted among non-blacks MDRD (S/P/Bld) [Vol rate/Area] 46 mL/min/{1.73_m2} Low >=60 [facility] Comment on above: Result Comment: Repo rted eGFR is based on the CKD-EPI 2020 equation using creatinine, age, and sex. Performed By: #### C A, CHM7, IPB, T3RIA, MGO #### [facility] (DEFAULT) [address] [place] [address] 51921 Glucose [Mass/Vol] 123 mg/dL Normal Nonfastin -179 mg/dL; Fastin-99 [facility] Comment on above: Performed By: #### Antoine Mendoza, CHM7, IPB, T3RIA, MGO #### [facility] (DEFAULT) [address] [place] [address] 42153 Osmolality [Osmolality] 294 mosm/kg Normal 278-305 [facility] Comment on above: Performed By: #### C Kelly, CHM7, IPB, T3RIA, MGO #### [facility] (DEFAULT) [address] [place] [address] 45965 Potassium [Moles/Vol] 3.4 mmol/L Low 3.5-5.0 [facility] Comment on above: Performed By: #### Antoine Mendoza, CHM7, IPB, T3RIA, MGO #### [facility] (DEFAULT) [address] [place] [address] 76346 Sodium [Moles/Vol] 137 mmol/L Normal 135-[address] [facility] Comment on above: Performed By: #### Antoine Mendoza, CHM7, IPB, T3RIA, MGO #### [facility] (DEFAULT) [address] [place] [address] 05305 Urea nitrogen [Mass/Vol] 30 mg/dL High 7-25 [facility] Comment on above: Performed By: #### C Kelly, CHM7, IPB, T3RIA, MGO #### [facility] (DEFAULT) [address] [place] [address] 24498 Urea nitrogen/Creatinine [Mass ratio] 21 mg/mg Normal [facility] Comment on above: Performed By: #### C A, CHM7, IPB, T3RIA, MGO #### [facility] (DEFAULT) [address] [place] [id number] PE STUDYon 06-09-2025 CT PE STUDY [...] PET. 4. Cardiomegaly and coronary artery disease. [facility] CT Pulmonary arteries for pu lmonary [...] PET. 4. Cardiomegaly and coronary artery disease. [facility] Radiology Study observation (narrative) [facility] CT Pulmonary arteries for pu lmonary embolusOrdered By: Burke Gordillo on 06-09-2025 [facility] Work Phone: HEPATIC FUNCTION PANELon Albumin [Mass/Vol] 3.8 g/dL 3.5 - 5.0 g/dL [facility] ALP [Catalytic activity/Vol] 94 U/L 32 - 126 U/L [facility] ALT [Catalytic activity/Vol] 9 U/L Low 10 - 52 U/L [facility] AST [Catalytic activity/Vol] 16 U/L 10 - 39 U/L [facility] Bilirubin [Mass/Vol] 0.8 mg/dL [facility]/dL [facility] Bilirubin.direct [Mass/Vol] 0.2 mg/dL [facility] - 0.[facility] mg/dL [facility] Protein [Mass/Vol] 6.5 g/dL 6.4 - 8.3 g/dL [facility] Albumin [Mass/Vol] 3.8 g/dL Normal 3.5-5.[address] [facility] Comment on above: Performed By: #### C A, CHM7, IPB, T3RIA, MGO #### [facility] (DEFAULT) [address] [place] [address] ALP [Catalytic activity/Vol] 94 U/L Normal 32-126 [facility] Comment on above: Performed By: #### C A, CHM7, IPB, T3RIA, MGO #### [facility] (DEFAULT) [address] [place] [address] ALT [Catalytic activity/Vol] 9 U/L Low 10-52 [facility] Comment on above: Performed By: #### C Kelly, CHM7, IPB, T3RIA, MGO #### [facility] (DEFAULT) [address] [place] [address] 66702 AST [Catalytic activity/Vol] 16 U/L Normal 10-39 [facility] Comment on above: Performed By: #### C A, CHM7, IPB, T3RIA, MGO #### [facility] (DEFAULT) [address] [place] [address] 14540 Bilirubin [Mass/Vol] 0.8 mg/dL Normal <1.5 [facility] Comment on above: Performed By: #### C A, CHM7, IPB, T3RIA, MGO #### [facility] (DEFAULT) [address] [place] [address] 10835 Bilirubin.indirect [Mass/Vol] 0.2 mg/dL Normal <0.3 [facility] Comment on above: Performed By: #### C Kelly, CHM7, IPB, T3RIA, MGO #### [facility] (DEFAULT) [address] [place] [address] 88471 Protein [Mass/Vol] 6.5 g/dL Normal 6.4-8.[address] [facility] Comment on above: Performed By: #### C A, CHM7, IPB, T3RIA, MGO #### [facility] (DEFAULT) [address] [place] [address] 56993 HIGH SENSITIVITY TROPONIN I - SINGLE ORDERon 06-09-2025 Interpretation and review of laboratory results Abnormal [facility] Troponin I.cardiac High sensitivity method [Mass/Vol] 94 ng/L High NINF - 53 ng/L [facility] hs-Troponin I 94 ng/L High <53 [facility] Comment on above: Order Comment: The r eference range has not been established for random urine specimens. The test result should be integrated into the clinical context for interpretation. Performed By: #### U LYTR, UCRER #### [facility] (DEFAULT) [address] [place] [address] hs-Troponin I 85 ng/L High <53 [facility] Comment on above: Order Comment: Acute Coronary Syndrome (ACS): Initial Evaluation and Management:[email or web address] Performed By: #### C Kelly, CHM7, IPB, T3RIA, MGO #### [facility] (DEFAULT) [address] [place] [address] HIGH SENSITIVITY TROPONIN I - SINGLE ORDEROrdered By: Addison Franklin on 06-09-2025 Interpretation and review of laboratory results Abnormal [facility] Troponin I.cardiac High sensitivity method [Mass/Vol] 85 ng/L High NINF - 53 ng/L [facility] LACTATE, WHOLE BLOODon 06-09 Interpretation and review of laboratory results Abnormal [facility] Lactate [Moles/Vol] 1.7 mmol/L High 0.5 - 1. 6 mmol/L [facility] Lactate, Whole Blood 1.7 mmol/L High 0.5-1.6 [facility] Comment on above: Performed By: #### C Kelly, CHM7, IPB, T3RIA, MGO #### [facility] (DEFAULT) [address] [place] [address] LIPASEon 06-09-2025 Lipase [Catalytic activity/Vol] 10 U/L Low 11 - 82 U/L [facility] Lipase [Catalytic activity/Vol] 10 U/L Low 11-82 [facility] Comment on above: Performed By: #### C Kelly, CHM7, IPB, T3RIA, MGO #### [facility] (DEFAULT) [address] [place] [address] MAGNESIUMon 06-09-2025 Magnesium [Mass/Vol] 1.5 mg/dL Low 1.6 - 2 .6 mg/dL [facility] Magnesium [Mass/Vol] 1.5 mg/dL Low 1.6-2.6 [facility] Comment on above: Performed By: #### Antoine Mendoza, MELBAM7, IPB, T3RIA, MGO #### [facility] (DEFAULT) [address] [place] [address] 42754 NT-PRO B-TYPE NATRIURETIC PE PTIDEon 06-09-2025 Interpretation and review of laboratory results Abnormal [facility] Natriuretic peptide.B prohormone N-Terminal IA [Mass/Vol] 4511 pg/mL High NINF - 540 pg/mL [facility] Natriuretic peptide B (Bld) [Mass/Vol] 4511 pg/mL High <=540 [facility] Comment on above: Performed By: #### GERMAIN Valencia, YEIMIB, T3RIA, MGO #### [facility] (DEFAULT) [address] [place] [address] 40183 No Panel Informationon 06-09 [facility] Interpretation and review of laboratory results Abnormal [facility] PHOSPHATE, INORGANICon 06-09 Interpretation and review of laboratory results Normal [facility] Phosphate [Mass/Vol] 3.4 mg/dL 2.2 - 4 .6 mg/dL [facility] Phosphorous 3.4 mg/dL Normal 2.2-4.6 [facility] Comment on above: Performed By: #### Antoine Mendoza, GERMAIN, IPB, T3RIA, MGO #### [facility] (DEFAULT) [address] [place] [address] 30691 Portable XR Chest Viewson IMPRESSION: Cardiomegaly with [...] wires. IMPRESSION IMPRESSION: Cardiomegaly with clear lungs. [facility] Radiology Study observation (narrative) [facility] Portable XR Chest ViewsOrder ed By: Rd Back on 06-09-2025 [facility] Work Phone: T4 FREEon 06-09-2025 Free T4 [Mass/Vol] 1.98 ng/dL High 0.89 - 1. 76 ng/dL [facility] Interpretation and review of laboratory results Abnormal [facility] Free T4 [Mass/Vol] 1.98 ng/dL High 0.89-1.[address] [facility] Comment on above: Performed By: #### C A, CHM7, IPB, T3RIA, MGO #### [facility] (DEFAULT) [address] [place] [address] TSH W/FT4 REFLEXon Interpretation and review of laboratory results Abnormal [facility] TSH Qn 0.149 m[IU]/L Low [facility] TSH 0.149 uIU/mL Low 0.550-4.780 [facility] Comment on above: Performed By: #### C A, CHM7, IPB, T3RIA, MGO #### [facility] (DEFAULT) [address] [place] [address] URINALYSIS REFLEX TO CULTURE PERFORMABLEon 06-09-2025 Appearance (U) Clear Clear [facility] Bacteria LM Ql (Urine sed) ABSENT ABSENT [facility] Color (U) Yellow Yellow [facility] Epithelial cells.squamous LM Ql (Urine sed) 0-2/hpf 0-2/hpf, 3-5/hpf = 1+ [facility] Glucose Test strip (U) [Mass/Vol] Negative Negative [facility] Interpretation and review of laboratory results Normal [facility] Ketones (U) [Mass/Vol] Negative Negative [facility] Leukocyte esterase Test strip Ql (U) Negative Negative [facility] Nitrite Ql (U) Negative Negative [facility] pH (U) 5.5 [pH] 5.0 - 7.0 [facility] Protein (U) [Mass/Vol] Negative Negative [facility] RBC [facility]U) [#/Vol] [facility] RBC LM.HPF (Urine sed) [#/Area] 0-2 [facility] Specific gravity (U) [Rel density] 1.011 1.001 - 1.035 [facility] Urobilinogen (U) [Mass/Vol] 0.2 E.U./dL 0.2 E.U/dL, 1.0 E.U/dL [facility] WBC LM.HPF (Urine sed) [#/Area] 0 - 5 [facility] Appearance (U) Clear Normal Clear [facility] Comment on above: Order Comment: For i ndwelling catheters, specimen collection is acceptable on catheter day 1 and 2 only. ? Performed By: #### C A, CHM7, IPB, T3RIA, MGO #### [facility] (DEFAULT) [address] [place] [address] 39416 Bacteria ABSENT Normal ABSENT [facility] Comment on above: Order Comment: For i ndwelling catheters, specimen collection is acceptable on catheter day 1 and 2 only. ? Performed By: #### C A, CHM7, IPB, T3RIA, MGO #### [facility] (DEFAULT) [address] [place] [address] 87373 Blood Urine Negative Normal Negative [facility] Comment on above: Order Comment: For i ndwelling catheters, specimen collection is acceptable on catheter day 1 and 2 only. ? Performed By: #### C A, CHM7, IPB, T3RIA, MGO #### [facility] (DEFAULT) [address] [place] [address] 15516 Color (U) Yellow Normal Yellow [facility] Comment on above: Order Comment: For i ndwelling catheters, specimen collection is acceptable on catheter day 1 and 2 only. ? Performed By: #### C A, CHM7, IPB, T3RIA, MGO #### [facility] (DEFAULT) [address] [place] [address] 40008 Glucose Ql (U) Negative Normal Negative [facility] Comment on above: Order Comment: For i ndwelling catheters, specimen collection is acceptable on catheter day 1 and 2 only. ? Performed By: #### C A, CHM7, IPB, T3RIA, MGO #### [facility] (DEFAULT) [address] [place] [address] 46138 Ketones Ql (U) Negative Normal Negative [facility] Comment on above: Order Comment: For i ndwelling catheters, specimen collection is acceptable on catheter day 1 and 2 only. ? Performed By: #### C A, CHM7, IPB, T3RIA, MGO #### [facility] (DEFAULT) [address] [place] [address] 98331 Leukocyte esterase Test strip Ql (U) Negative Normal Negative [facility] Comment on above: Order Comment: For i ndwelling catheters, specimen collection is acceptable on catheter day 1 and 2 only. ? Performed By: #### C A, CHM7, IPB, T3RIA, MGO #### [facility] (DEFAULT) [address] [place] [address] 57642 Nitrites Urine Negative Normal Negative [facility] Comment on above: Order Comment: For i ndwelling catheters, specimen collection is acceptable on catheter day 1 and 2 only. ? Performed By: #### C A, CHM7, IPB, T3RIA, MGO #### [facility] (DEFAULT) [address] [place] [address] 53149 pH (U) 5.5 [pH] Normal 5.0-7.0 [facility] Comment on above: Order Comment: For i ndwelling catheters, specimen collection is acceptable on catheter day 1 and 2 only. ? Performed By: #### C A, CHM7, IPB, T3RIA, MGO #### [facility] (DEFAULT) [address] [place] [address] 98780 Protein Urine Negative Normal Negative [facility] Comment on above: Order Comment: For i ndwelling catheters, specimen collection is acceptable on catheter day 1 and 2 only. ? Performed By: #### C A, CHM7, IPB, T3RIA, MGO #### [facility] (DEFAULT) [address] [place] [address] 94448 RBC Urine 0-2 Normal 0-2 [facility] Comment on above: Order Comment: For i ndwelling catheters, specimen collection is acceptable on catheter day 1 and 2 only. ? Performed By: #### C A, CHM7, IPB, T3RIA, MGO #### [facility] (DEFAULT) [address] [place] [address] 33141 Specific [place] Urine 1.011 Normal 1.001-1.035 [facility] Comment on above: Order Comment: For i ndwelling catheters, specimen collection is acceptable on catheter day 1 and 2 only. ? Performed By: #### Antoine Mendoza, CHM7, IPB, T3RIA, MGO #### [facility] (DEFAULT) [address] [place] [address] 54247 Squamous/Epithelial Cells, Urine 0-2/hpf Normal 0-2/hpf, 3-5/hpf = 1+ [facility] Comment on above: Order Comment: For i ndwelling catheters, specimen collection is acceptable on catheter day 1 and 2 only. ? Performed By: #### C Kelly, CHM7, IPB, T3RIA, MGO #### [facility] (DEFAULT) [address] [place] [address] 53244 Urobilinogen Urine 0.2 E.U./dL Normal 0.2 E.U/d L, 1.0 E.U/dL [facility] Comment on above: Order Comment: For i ndwelling catheters, specimen collection is acceptable on catheter day 1 and 2 only. ? Performed By: #### C Kelly, CHM7, IPB, T3RIA, MGO #### [facility] (DEFAULT) [address] [place] [address] 95553 WBC Urine 0 - 5 Normal 0 - 5 [facility] Comment on above: Order Comment: For i ndwelling catheters, specimen collection is acceptable on catheter day 1 and 2 only. ? Performed By: #### Antoine Mendoza, CHM7, IPB, T3RIA, MGO #### [facility] (DEFAULT) [address] [place] [address] 46901 XR CHEST 1 VIEW PORTABLEon 0 06-09-2025 [...] wires. IMPRESSION: Cardiomegaly with clear lungs. Normal [facility] 36on 05-28-2025 36 Daughter called haydemeek taylor today wanting to know if he can stop his Atorvastatin. Per Meghann Sahu to stop Atorvastatin. Normal [facility] 36on 05-24-2025 36 Daughter called alysha taylor in reference to Atorvastatin Normal [facility] 36 Pt calling again Normal [facility] CBC AND ELECTRONIC DIFFon Basophils (Bld) [#/Vol] K/uL 0.00 - 0.09 K/uL [facility] Basophils/100 WBC (Bld) 0.5 % [facility] Differential cell count method Nom (Bld) Electronic Differential [facility] Eosinophils (Bld) [#/Vol] 0.07 10*3/uL 0.00 - 0.48 K/uL [facility] Eosinophils/100 WBC (Bld) 1.2 % [facility] Erythrocyte distribution width (RBC) [Ratio] 13.1 % 10.9 - 14.3 % [facility] Hematocrit (Bld) [Volume fraction] 28.1 % Low 39.6 - 48.8 % [facility] Hemoglobin (Bld) [Mass/Vol] 8.9 g/dL Low 13.4 - 16.8 g/dL [facility] Immature granulocytes (Bld) [#/Vol] K/uL NINF - 0.07 K/uL [facility] Immature granulocytes/100 WBC (Bld) 0.5 % [facility] Interpretation and review of laboratory results Abnormal [facility] Lymphocytes (Bld) [#/Vol] 0.76 10*3/uL Low 0.83 - 3.57 K/uL [facility] Lymphocytes/100 WBC (Bld) 12.6 % [facility] MCH (RBC) [Entitic mass] 30.9 pg 26.1 - 33.3 pg [facility] MCHC (RBC) [Mass/Vol] 31.7 g/dL Low 31.9 - 36.5 g/dL [facility] MCV (RBC) [Entitic vol] 97.6 fL High 79.0 - 94.5 fL [facility] Monocytes (Bld) [#/Vol] 0.66 10*3/uL 0.24 - 0.93 K/uL [facility] Monocytes/100 WBC (Bld) 11.0 % [facility] Neutrophils (Bld) [#/Vol] 4.47 10*3/uL 1.57 - 6.19 K/uL [facility] Nucleated RBC/100 WBC (Bld) [Ratio] 0.0 % NINF [facility] Platelet mean volume (Bld) [Entitic vol] 10.1 fL 8.7 - 12.3 fL [facility] Platelets (Bld) [#/Vol] 155 10*3/uL 146 - 337 K/uL [facility] RBC (Bld) [#/Vol] 2.88 10*6/uL Low [facility] Segmented neutrophils/100 WBC (Bld) 74.2 % [facility] WBC (Bld) [#/Vol] 6.02 10*3/uL 3.73 - 10.10 K/uL [facility] Abs Baso Auto < Normal 0.00-0.09 [facility] Comment on above: Performed By: #### C A, CHM7, IPB, T3RIA, MGO #### [facility] (DEFAULT) [address] [address] Basophils/100 WBC (Bld) 0.5 % Normal [facility] Comment on above: Performed By: #### C A, CHM7, IPB, T3RIA, MGO #### [facility] (DEFAULT) [address] [place] [address] 76278 DIFF STATUS Electronic Differential Normal [facility] Comment on above: Performed By: #### Antoine Mendoza, CHM7, IPB, T3RIA, MGO #### [facility] (DEFAULT) [address] [place] [address] 75325 Eosinophils (Bld) [#/Vol] 0.07 10*3/uL Normal 0.00-0.48 [facility] Comment on above: Performed By: #### Antoine Mendoza, CHM7, IPB, T3RIA, MGO #### [facility] (DEFAULT) [address] [place] [address] 02844 Eosinophils/100 WBC (Bld) 1.2 % Normal [facility] Comment on above: Performed By: #### Antoine Mendoza, CHM7, IPB, T3RIA, MGO #### [facility] (DEFAULT) [address] [place] [address] 21099 Hematocrit (Bld) [Volume fraction] 28.1 % Low 39.6-48.8 [facility] Comment on above: Performed By: #### Antoine Mendoza, CHM7, IPB, T3RIA, MGO #### [facility] (DEFAULT) [address] [place] [address] 56145 Hemoglobin (Bld) [Mass/Vol] 8.9 g/dL Low 13.4-16.8 [facility] Comment on above: Performed By: #### Antoine Mendoza, CHM7, IPB, T3RIA, MGO #### [facility] (DEFAULT) [address] [place] [address] 35447 Immature Grans % 0.5 % Normal [facility] Comment on above: Performed By: #### Antoine Mendoza, CHM7, IPB, T3RIA, MGO #### [facility] (DEFAULT) [address] [place] [address] 14356 Immature Grans Absolute < Normal <=0.07 [facility] Comment on above: Performed By: #### C A, CHM7, IPB, T3RIA, MGO #### [facility] [address] [place] [address] 63350 Lymphocytes (Bld) [#/Vol] 0.76 10*3/uL Low 0.83-3.57 [facility] Comment on above: Performed By: #### C A, CHM7, IPB, T3RIA, MGO #### [facility] (DEFAULT) [address] [place] [address] 85961 Lymphocytes/100 WBC (Bld) 12.6 % Normal [facility] Comment on above: Performed By: #### C A, CHM7, IPB, T3RIA, MGO #### [facility] (DEFAULT) [address] [place] [address] 14715 MCV (RBC) [Entitic vol] 97.6 fL High 79.0-94.5 [facility] Comment on above: Performed By: #### C A, CHM7, IPB, T3RIA, MGO #### [facility] (DEFAULT) [address] [place] [address] 06265 Mean Cell Hgb 30.9 pg Normal 26.1-33.3 [facility] Comment on above: Performed By: #### C A, CHM7, IPB, T3RIA, MGO #### [facility] (DEFAULT) [address] [place] [address] 67982 Mean Cell Hgb Conc 31.7 g/dL Low 31.9-36.[address] [facility] Comment on above: Performed By: #### C A, CHM7, IPB, T3RIA, MGO #### [facility] (DEFAULT) [address] [place] [address] 05933 Monocytes (Bld) [#/Vol] 0.66 10*3/uL Normal 0.24-0.93 [facility] Comment on above: Performed By: #### C A, CHM7, IPB, T3RIA, MGO #### [facility] (DEFAULT) [address] [place] [address] 64244 Monocytes/100 WBC (Bld) 11.0 % Normal [facility] Comment on above: Performed By: #### C A, CHM7, IPB, T3RIA, MGO #### [facility] (DEFAULT) [address] [place] [address] 01943 Nucleated RBC 0.0 /100 WBC Normal <=0.2 [facility] Comment on above: Performed By: #### C A, CHM7, IPB, T3RIA, MGO #### [facility] (DEFAULT) [address] [place] [address] 91823 Platelet mean volume (Bld) [Entitic vol] 10.1 fL Normal 8.7-12.3 [facility] Comment on above: Performed By: #### C A, CHM7, IPB, T3RIA, MGO #### [facility] (DEFAULT) [address] [place] [address] 25545 Platelets (Bld) [#/Vol] 155 10*3/uL Normal 146-337 [facility] Comment on above: Performed By: #### C A, CHM7, IPB, T3RIA, MGO #### [facility] (DEFAULT) [address] [place] [address] 61642 RBC (Bld) [#/Vol] 2.88 10*6/uL Low 4.38-5.83 [facility] Comment on above: Performed By: #### C A, CHM7, IPB, T3RIA, MGO #### [facility] (DEFAULT) [address] [place] [address] 38946 RBC Distribution 13.1 % Normal 10.9-14.3 [facility] Comment on above: Performed By: #### C A, CHM7, IPB, T3RIA, MGO #### [facility] (DEFAULT) [address] [place] [address] 94899 Segs + Bands Auto 74.2 % Normal [facility] Comment on above: Performed By: #### C Kelly, CHM7, IPB, T3RIA, MGO #### [facility] (DEFAULT) [address] [place] [address] 89363 Segs + Bands,Absolute Auto 4.47 K/uL Normal 1.57-6.19 [facility] Comment on above: Performed By: #### Antoine Mendoza, CHM7, IPB, T3RIA, MGO #### [facility] (DEFAULT) [address] [place] [address] 80043 WBC (Bld) [#/Vol] 6.02 10*3/uL Normal 3.73-10.10 [facility] Comment on above: Performed By: #### Antoine A, CHM7, IPB, T3RIA, MGO #### [facility] (DEFAULT) [address] [place] [address] 230[address] [address]OLIC PANE [facility] 05-21-2025 Albumin [Mass/Vol] 4.4 g/dL 3.5 - 5.0 g/dL [facility] ALP [Catalytic activity/Vol] 93 U/L 32 - 126 U/L [facility] ALT [Catalytic activity/Vol] 19 U/L 10 - 52 U/L [facility] Anion gap [Moles/Vol] 11 mmol/L 7 - 17 mmol/L [facility] AST [Catalytic activity/Vol] 19 U/L 10 - 39 U/L [facility] Bilirubin [Mass/Vol] 0.7 mg/dL NINF - 1.5 mg/dL [facility] Calcium [Mass/Vol] 9.7 mg/dL 8.6 - 10. 5 mg/dL [facility] Chloride [Moles/Vol] 105 mmol/L 98 - 10 8 mmol/L [facility] CO2 [Moles/Vol] 29 mmol/L 21 - 31 mmol/L [facility] Creatinine [Mass/Vol] 1.67 mg/dL High 0.70 - 1.30 mg/dL [facility] eGFR, CKD-EPI, Male 39 Low - PINF [facility] Comment on above: Reported eGFR is bas ed on the CKD-EPI 2020 equation using creatinine, age, and sex. Glucose [Mass/Vol] 111 mg/dL 70 - 179 mg/dL [facility] Osmolality Calc [Osmolality] 300 [facility] Potassium [Moles/Vol] 3.7 mmol/L 3.5 - 5.0 mmol/L [facility] Protein [Mass/Vol] 6.9 g/dL 6.4 - 8.3 g/dL [facility] Sodium [Moles/Vol] 141 mmol/L 135 - 145 mmol/L [facility] Urea nitrogen [Mass/Vol] 27 mg/dL High 7 - 25 mg/dL [facility] Urea nitrogen/Creatinine [Mass ratio] 16 mg/mg [facility] Albumin [Mass/Vol] 4.4 g/dL Normal 3.5-5.[address] [facility] Comment on above: Performed By: #### C Kelly, CHM7, IPB, T3RIA, MGO #### [facility] (DEFAULT) [address] [place] [address] 66002 ALP [Catalytic activity/Vol] 93 U/L Normal 32-126 [facility] Comment on above: Performed By: #### C A, CHM7, IPB, T3RIA, MGO #### [facility] (DEFAULT) [address] [place] [address] ALT [Catalytic activity/Vol] 19 U/L Normal 10-52 [facility] Comment on above: Performed By: #### C A, CHM7, IPB, T3RIA, MGO #### [facility] (DEFAULT) [address] [place] [address] 05792 Anion gap [Moles/Vol] 11 mmol/L Normal 7-17 [facility] Comment on above: Performed By: #### C A, CHM7, IPB, T3RIA, MGO #### [facility] (DEFAULT) [address] [place] [address] [id number] AST [Catalytic activity/Vol] 19 U/L Normal 10-39 [facility] Comment on above: Performed By: #### C A, CHM7, IPB, T3RIA, MGO #### [facility] (DEFAULT) [address] [place] [address] 73996 Bilirubin [Mass/Vol] 0.7 mg/dL Normal <1.5 [facility] Comment on above: Performed By: #### C A, CHM7, IPB, T3RIA, MGO #### [facility] (DEFAULT) [address] [place] [address] 82010 Calcium [Mass/Vol] 9.7 mg/dL Normal 8.6-10.[address] [facility] Comment on above: Performed By: #### C A, CHM7, IPB, T3RIA, MGO #### [facility] (DEFAULT) [address] [place] [address] 43162 Chloride [Moles/Vol] 105 mmol/L Normal 98-108 [facility] Comment on above: Performed By: #### C A, CHM7, IPB, T3RIA, MGO #### [facility] (DEFAULT) [address] [place] [address] 00222 CO2 [Moles/Vol] 29 mmol/L Normal 21-31 [facility] Comment on above: Performed By: #### C A, CHM7, IPB, T3RIA, MGO #### [facility] (DEFAULT) [address] [place] [address] 95653 Creatinine [Mass/Vol] 1.67 mg/dL High 0.70-1.30 [facility] Comment on above: Performed By: #### C A, CHM7, IPB, T3RIA, MGO #### [facility] (DEFAULT) [address] [place] [address] 39173 GFR/1.73 sq M.predicted among non-blacks MDRD (S/P/Bld) [Vol rate/Area] 39 mL/min/{1.73_m2} Low >=60 [facility] Comment on above: Result Comment: Repo rted eGFR is based on the CKD-EPI 2020 equation using creatinine, age, and sex. Performed By: #### C Kelly, CHM7, IPB, T3RIA, MGO #### [facility] (DEFAULT) [address] [place] [address] 12284 Glucose [Mass/Vol] 111 mg/dL Normal Nonfastin -179 mg/dL; Fastin-99 [facility] Comment on above: Performed By: #### Antoine Mendoza, CHM7, IPB, T3RIA, MGO #### [facility] (DEFAULT) [address] [place] [address] 87190 Osmolality [Osmolality] 300 mosm/kg Normal 278-305 [facility] Comment on above: Performed By: #### Antoine A, CHM7, IPB, T3RIA, MGO #### [facility] (DEFAULT) [address] [place] [address] 17090 Potassium [Moles/Vol] 3.7 mmol/L Normal 3.5-5.0 [facility] Comment on above: Performed By: #### Antoine Mendoza, CHM7, IPB, T3RIA, MGO #### [facility] (DEFAULT) [address] [place] [address] 67967 Protein [Mass/Vol] 6.9 g/dL Normal 6.4-8.[address] [facility] Comment on above: Performed By: #### C A, CHM7, IPB, T3RIA, MGO #### [facility] (DEFAULT) [address] [place] [address] 60879 Sodium [Moles/Vol] 141 mmol/L Normal 135-[address] [facility] Comment on above: Performed By: #### C A, CHM7, IPB, T3RIA, MGO #### [facility] (DEFAULT) [address] [place] [address] Urea nitrogen [Mass/Vol] 27 mg/dL High 7-25 [facility] Comment on above: Performed By: #### C A, CHM7, IPB, T3RIA, MGO #### [facility] (DEFAULT) [address] [place] [address] Urea nitrogen/Creatinine [Mass ratio] 16 mg/mg Normal [facility] Comment on above: Performed By: #### C A, CHM7, IPB, T3RIA, MGO #### [facility] (DEFAULT) [address] [place] [address] 64862 LACTATE DEHYDROGENASEon 05-04 LDH Lactate to pyruvate reaction [Catalytic activity/Vol] 235 U/L High 100 - 190 U/L [facility] LD Total 235 U/L High 100-190 [facility] Comment on above: Performed By: #### C A, CHM7, IPB, T3RIA, MGO #### [facility] (DEFAULT) [address] [place] [address] 52449 No Panel Informationon 05-21 Interpretation and review of laboratory results Abnormal [facility] T4 FREEon 05-21-2025 Free T4 [Mass/Vol] 1.28 ng/dL 0.89 - 1. 76 ng/dL [facility] Interpretation and review of laboratory results Normal [facility] Free T4 [Mass/Vol] 1.28 ng/dL Normal 0.89-1.[address] [facility] Comment on above: Performed By: #### C A, CHM7, IPB, T3RIA, MGO #### [facility] (DEFAULT) [address] [place] [address] 52407 TSHon 05-21-2025 Interpretation and review of laboratory results Normal [facility] TSH Qn 0.959 m[IU]/L [facility] TSH 0.959 uIU/mL Normal 0.550-4.780 [facility] Comment on above: Performed By: #### C A, CHM7, IPB, T3RIA, MGO #### [facility] (DEFAULT) [address] [place] [address] Telephoneon 05-21-2025 Telephone [phone] Sebastian Hannon 1935 M Date Provider Department Center 05/21/2025 Madonna5-SANG [facility] Family History Problem Relation Age of Onset Other Mother Coronary artery disease Father Family Status - Relation Status Age at Mother Father Normal [facility] Orders Onlyon 05-18-2025 Orders Only [id number] Sebastian Hannon 1935 M Date Provider Department Center 05/18/2025 241-RENEE JUDGE HVC C[facility] Family History Problem Relation Age of Onset Other Mother Coronary artery disease Father Family Status - Relation Status Age at Mother Father Normal [facility] SURG PATH REQUESTon 05-16-20 Case Report Normal [facility] Comment on above: Result Comment: Surg ical Pathology Report Case: [id number] Authorizing Provider: Duglas Walsh MD, PhD Collected: 05/16/2025 10:17 AM Ordering Location: Dermatopathology Received: 05/16/2025 10:[address] [facility] Pathologist: Hilario Elias MD Specimen: SURG PATH, SKIN, LEFT INFERIOR MEDIAL UPPER BACK Performed By: #### S URGP #### [facility] (DEFAULT) [address] [place] [id number] Clinical History Morphology: 1.4 cm. DDX: Neoplasm of uncertain behavior vs. squamous cell carcinoma vs. basal cell carcinoma Normal [facility] Comment on above: Performed By: #### S URGP #### [facility] (DEFAULT) [address] [address] Diagnosis Comments A review of the medical record was performed including imaging reports, serology, clinical notes, operative report, and the outside report on the referred material. These findings were correlated with the histologic diagnosis of the current specimen. [facility] Comment on above: Performed By: #### S URGP #### [facility] (DEFAULT) [address] [address] Gross Description [facility] Comment on above: Result Comment: Subm itted from Dermatopathology Laboratory of [facility], [address] [place] [address], are three slides labeled [id number] (SLIDE A-1, SOX10, PRAME). An identifying pathology report is included. Outside materials returned in 60 days under separate cover with our number recorded on them. Grosser for this case was: Bibi Ogden Performed By: #### S URGP #### [facility] (DEFAULT) [address] [place] [address] 66836 Microscopic Description A. Histologic sections show a [...] supports the above diagnosis. PRAME is positive. [facility] Comment on above: Performed By: #### S URGP #### [facility] (DEFAULT) [address] [address] Pathologic Diagnosis [facility] Comment on above: Result Comment: OUTS JULIO SLIDES: [id number] (03/28/2025) A. Skin, left inferior medial upper back, shave: Melanoma, see synoptic report. at 1726 EDT Performed By: #### S URGP #### [facility] (DEFAULT) [address] [place] [address] 31086 Professional Interpretation Performed at: [facility] Comment on above: Result Comment: [facility] For Immediate Release to Patient's MyChart? Yes [address] [facility], [address] [place] [address] Performed By: #### S URGP #### [facility] (DEFAULT) [address] [place] [address] 47404 Synoptic Checklist Normal [facility] Comment on above: Result Comment: INVA [...] Performed By: #### S URGP #### [facility] (DEFAULT) [address] [place] [address] 55105 Case Report Normal [facility] Comment on above: Result Comment: Surg ical Pathology Report Case: [id number] Authorizing Provider: Duglas Walsh MD, PhD Collected: 05/16/2025 09:39 AM Ordering Location: Dermatopathology Received: 05/16/2025 09:39 AM [facility] Pathologist: Hilario Elias MD Specimen: SURG PATH, SKIN, RIGHT SUPERIOR FOREHEAD Performed By: #### C A, CHM7, IPB, T3RIA, MGO #### [facility] (DEFAULT) [address] [place] [address] 89905 Clinical History B. 1.3 cm plaque, Neoplasm of uncertain behavior vs. basal cell carcinoma Normal [facility] Comment on above: Performed By: #### C A, CHM7, IPB, T3RIA, MGO #### [facility] (DEFAULT) [address] [place] [address] 20104 Diagnosis Comments A review of the medical record was performed including imaging reports, serology, clinical notes, operative report, and the outside report on the referred material. These findings were correlated with the histologic diagnosis of the current specimen. [facility] Comment on above: Performed By: #### C A, CHM7, IPB, T3RIA, MGO #### [facility] (DEFAULT) [address] [place] [address] 77234 Gross Description Normal [facility] Comment on above: Result Comment: Subm itted from Dermatopathology Laboratory of [facility], [address] [place] [address], are two slides labeled [id number] (B H&E, B SOX10). An identifying pathology report is included. Outside materials returned in 60 days under separate cover with our number recorded on them. Grosser for this case was: Bibi Ogden Performed By: #### C A, CHM7, IPB, T3RIA, MGO #### [facility] (DEFAULT) [address] [place] [address] 46353 Microscopic Description A. Histologic sections show a [...] melanocyte distribution and supports the above diagnosis. [facility] Comment on above: Performed By: #### C A, CHM7, IPB, T3RIA, MGO #### [facility] (DEFAULT) [address] [place] [address] Pathologic Diagnosis [facility] Comment on above: Result Comment: OUTS JULIO SLIDES: [id number] (08/31/2025) B. Skin, right superior forehead, shave: Melanoma, see synoptic report. at 1724 EDT Performed By: #### C A, CHM7, IPB, T3RIA, MGO #### [facility] (DEFAULT) [address] [place] [address] Professional Interpretation Performed at: [facility] Comment on above: Result Comment: [facility] For Immediate Release to Patient's [facility]? Yes [address] [facility], [address] [place] [address] Performed By: #### C A, CHM7, IPB, T3RIA, MGO #### [facility] (DEFAULT) [address] [place] [address] Synoptic Checklist [facility] Comment on above: Result Comment: INVA [...] C A, CHM7, IPB, T3RIA, MGO #### [facility] (DEFAULT) [address] [place] [address] 09468 TUMOR HOTSPOT MUTATION PANEL , ACCESSIONINGon 05-16-2025 AP BLOCK/SLIDE ID [id number] [facility] Comment on above: Performed By: #### C A, CHM7, IPB, T3RIA, MGO #### [facility] (DEFAULT) [address] [place] [address] 87084 AP SLIDE SCANNED Normal [facility] Comment on above: Performed By: #### C A, CHM7, IPB, T3RIA, MGO #### [facility] (DEFAULT) [address] [place] [address] 10948 APCP HISTOLOGY COMMENTS Normal [facility] Comment on above: Performed By: #### C A, CHM7, IPB, T3RIA, MGO #### [facility] (DEFAULT) [address] [place] [address] 11200 36on 05-15-2025 36 Patient's daughter called back [...] and get back to us if needed. [facility] No Panel Informationon 05-15 HLA ALLELE 1 A*11:01 [facility] HLA ALLELE 2 A*24:02 [facility] HLA INTERPRETATION Negative [facility] Comment on above: Testing performed by [facility] [...] need for FDA approval.Testing performed by the [facility] Clinical Histocompatibility Laboratory. [facility] number: [id number]. CLIA number: [id number], Director: Kieran Pastrana, PhD, F([facility]). 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 [...] have reviewed and approved this report. 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 [...] I have reviewed and approved this report. [facility] Radiology Study observation (narrative) [facility] CT Head WO and W contrast IV Ordered By: Maxi Alejandro on 05-11-2025 [facility] Work Phone: 36on 05-10-2025 36 Phone call from Sebastian's daughter Tricia. Per daughter Laura was seen the oncologist and the oncologist would like Sebastian to be taken off the Hydroxychloroquine or have it greatly reduce due to the type of chemo he's getting the chemo doesn't play well with hydroxychloroquine. Please advise Normal [facility] CBC AND ELECTRONIC DIFFon Basophils (Bld) [#/Vol] K/uL 0.00 - 0.09 K/uL [facility] Basophils/100 WBC (Bld) 0.6 % O [facility] Differential cell count method Nom (Bld) Electronic Differential [facility] Eosinophils (Bld) [#/Vol] 0.11 10*3/uL 0.00 - 0.48 K/uL [facility] Eosinophils/100 WBC (Bld) 2.3 % [facility] Erythrocyte distribution width (RBC) [Ratio] 13.2 % 10.9 - 14.3 % [facility] Hematocrit (Bld) [Volume fraction] 28.1 % Low 39.6 - 48.8 % [facility] Hemoglobin (Bld) [Mass/Vol] 8.9 g/dL Low 13.4 - 16.8 g/dL [facility] Immature granulocytes (Bld) [#/Vol] K/uL NINF - 0.07 K/uL [facility] Immature granulocytes/100 WBC (Bld) 0.4 % [facility] Interpretation and review of laboratory results Abnormal [facility] Lymphocytes (Bld) [#/Vol] 0.76 10*3/uL Low 0.83 - 3.57 K/uL [facility] Lymphocytes/100 WBC (Bld) 16.2 % [facility] MCH (RBC) [Entitic mass] 31 pg 26.1 - 33.3 pg [facility] MCHC (RBC) [Mass/Vol] 31.7 g/dL Low 31.9 - 36.5 g/dL [facility] MCV (RBC) [Entitic vol] 97.9 fL High 79.0 - 94.5 fL [facility] Monocytes (Bld) [#/Vol] 0.56 10*3/uL 0.24 - 0.93 K/uL [facility] Monocytes/100 WBC (Bld) 11.9 % [facility] Neutrophils (Bld) [#/Vol] 3.22 10*3/uL 1.57 - 6.19 K/uL [facility] Nucleated RBC/100 WBC (Bld) [Ratio] 0 % [facility] Platelet mean volume (Bld) [Entitic vol] 9.8 fL 8.7 - 12.3 fL [facility] Platelets (Bld) [#/Vol] 142 10*3/uL Low 146 - 337 K/uL [facility] RBC (Bld) [#/Vol] 2.87 10*6/uL Low [facility] Segmented neutrophils/100 WBC (Bld) 68.6 % [facility] WBC (Bld) [#/Vol] 4.7 10*3/uL 3.73 - 10.10 K/uL [facility] Abs Baso Auto < Normal 0.00-0.09 [facility] Comment on above: Performed By: #### C A, CHM7, IPB, T3RIA, MGO #### [facility] (DEFAULT) [address] [place] [address] 87293 Basophils/100 WBC (Bld) 0.6 % Normal [facility] Comment on above: Performed By: #### C A, CHM7, IPB, T3RIA, MGO #### [facility] (DEFAULT) [address] [place] [address] 97344 DIFF STATUS Electronic Differential Normal [facility] Comment on above: Performed By: #### C A, CHM7, IPB, T3RIA, MGO #### [facility] (DEFAULT) [address] [place] [address] 52364 Eosinophils (Bld) [#/Vol] 0.11 10*3/uL Normal 0.00-0.48 [facility] Comment on above: Performed By: #### C A, CHM7, IPB, T3RIA, MGO #### [facility] (DEFAULT) [address] [place] [address] 48531 Eosinophils/100 WBC (Bld) 2.3 % Normal [facility] Comment on above: Performed By: #### C A, CHM7, IPB, T3RIA, MGO #### [facility] (DEFAULT) [address] [place] [address] 86521 Hematocrit (Bld) [Volume fraction] 28.1 % Low 39.6-48.8 [facility] Comment on above: Performed By: #### C A, CHM7, IPB, T3RIA, MGO #### [facility] (DEFAULT) [address] [place] [address] 82700 Hemoglobin (Bld) [Mass/Vol] 8.9 g/dL Low 13.4-16.8 [facility] Comment on above: Performed By: #### C A, CHM7, IPB, T3RIA, MGO #### [facility] (DEFAULT) [address] [place] [address] 50820 Immature Grans % 0.4 % Normal [facility] Comment on above: Performed By: #### Antoine Mendoza, CHM7, IPB, T3RIA, MGO #### [facility] (DEFAULT) [address] [place] [address] 91685 Immature Grans Absolute < Normal <=0.07 [facility] Comment on above: Performed By: #### C Kelly, CHM7, IPB, T3RIA, MGO #### [facility] (DEFAULT) [address] [place] [address] 50410 Lymphocytes (Bld) [#/Vol] 0.76 10*3/uL Low 0.83-3.57 [facility] Comment on above: Performed By: #### Antoine Mendoza, CHM7, IPB, T3RIA, MGO #### [facility] (DEFAULT) [address] [place] [address] 70005 Lymphocytes/100 WBC (Bld) 16.2 % Normal [facility] Comment on above: Performed By: #### Antoine Mendoza, CHM7, IPB, T3RIA, MGO #### [facility] (DEFAULT) [address] [place] [address] 47527 MCV (RBC) [Entitic vol] 97.9 fL High 79.0-94.5 [facility] Comment on above: Performed By: #### Antoine Mendoza, CHM7, IPB, T3RIA, MGO #### [facility] (DEFAULT) [address] [place] [address] 92846 Mean Cell Hgb 31.0 pg Normal 26.1-33.3 [facility] Comment on above: Performed By: #### C A, CHM7, IPB, T3RIA, MGO #### [facility] (DEFAULT) [address] [place] [address] 80926 Mean Cell Hgb Conc 31.7 g/dL Low 31.9-36.[address] [facility] Comment on above: Performed By: #### C A, CHM7, IPB, T3RIA, MGO #### [facility] (DEFAULT) [address] [place] [address] 07771 Monocytes (Bld) [#/Vol] 0.56 10*3/uL Normal 0.24-0.93 [facility] Comment on above: Performed By: #### C A, CHM7, IPB, T3RIA, MGO #### [facility] (DEFAULT) [address] [place] [address] 92012 Monocytes/100 WBC (Bld) 11.9 % Normal [facility] Comment on above: Performed By: #### C A, CHM7, IPB, T3RIA, MGO #### [facility] (DEFAULT) [address] [place] [address] 77295 Nucleated RBC 0.0 /100 WBC Normal <=0.2 [facility] Comment on above: Performed By: #### C A, CHM7, IPB, T3RIA, MGO #### [facility] (DEFAULT) [address] [place] [address] 13717 Platelet mean volume (Bld) [Entitic vol] 9.8 fL Normal 8.7-12.3 [facility] Comment on above: Performed By: #### C A, CHM7, IPB, T3RIA, MGO #### [facility] (DEFAULT) [address] [place] [address] 08539 Platelets (Bld) [#/Vol] 142 10*3/uL Low 146-337 [facility] Comment on above: Performed By: #### C A, CHM7, IPB, T3RIA, MGO #### [facility] (DEFAULT) [address] [place] [address] 19690 RBC (Bld) [#/Vol] 2.87 10*6/uL Low 4.38-5.83 [facility] Comment on above: Performed By: #### C A, CHM7, IPB, T3RIA, MGO #### [facility] (DEFAULT) [address] [place] [address] 51192 RBC Distribution 13.2 % Normal 10.9-14.3 [facility] Comment on above: Performed By: #### C A, CHM7, IPB, T3RIA, MGO #### [facility] (DEFAULT) [address] [place] [address] 08604 Segs + Bands Auto 68.6 % Normal [facility] Comment on above: Performed By: #### C A, CHM7, IPB, T3RIA, MGO #### [facility] (DEFAULT) [address] [place] [address] 56596 Segs + Bands,Absolute Auto 3.22 K/uL Normal 1.57-6.19 [facility] Comment on above: Performed By: #### C A, CHM7, IPB, T3RIA, MGO #### [facility] (DEFAULT) [address] [place] [address] 77769 WBC (Bld) [#/Vol] 4.70 10*3/uL Normal 3.73-10.10 [facility] Comment on above: Performed By: #### C A, CHM7, IPB, T3RIA, MGO #### [facility] (DEFAULT) [address] [place] [address] 92864 COMPREHENSIVE METABOLIC PANE Huan 05-10-2025 Albumin [Mass/Vol] 4.3 g/dL 3.5 - 5.0 g/dL [facility] ALP [Catalytic activity/Vol] 87 U/L 32 - 126 U/L [facility] ALT [Catalytic activity/Vol] 20 U/L 10 - 52 U/L [facility] Anion gap [Moles/Vol] 9 mmol/L 7 - 17 mmol/L [facility] AST [Catalytic activity/Vol] 19 U/L 10 - 39 U/L [facility] Bilirubin [Mass/Vol] 0.8 mg/dL NINF - 1.5 mg/dL [facility] Calcium [Mass/Vol] 9.7 mg/dL 8.6 - 10. 5 mg/dL [facility] Chloride [Moles/Vol] 105 mmol/L 98 - 10 8 mmol/L [facility] CO2 [Moles/Vol] 32 mmol/L High 21 - 31 mmol/L [facility] Creatinine [Mass/Vol] 1.59 mg/dL High 0.70 - 1.30 mg/dL [facility] e[facility], [facility]-EPI, Male 42 Low - [facility] Comment on above: Reported eGFR is bas ed on the CKD-EPI 2020 equation using creatinine, age, and sex. Glucose [Mass/Vol] 104 mg/dL 70 - 179 mg/dL [facility] Osmolality Calc [Osmolality] 301 [facility] Potassium [Moles/Vol] 4.1 mmol/L 3.5 - 5.0 mmol/L [facility] Protein [Mass/Vol] 6.7 g/dL 6.4 - 8.3 g/dL [facility] Sodium [Moles/Vol] 142 mmol/L 135 - 145 mmol/L [facility] Urea nitrogen [Mass/Vol] 23 mg/dL 7 - 25 mg/dL [facility] Urea nitrogen/Creatinine [Mass ratio] 14 mg/mg [facility] Albumin [Mass/Vol] 4.3 g/dL Normal 3.5-5.[address] [facility] Comment on above: Performed By: #### U JAMES UCRER #### [facility] (DEFAULT) [address] [place] [address] 97283 ALP [Catalytic activity/Vol] 87 U/L Normal 32-126 [facility] Comment on above: Performed By: #### U LYTR, UCRER #### [facility] (DEFAULT) [address] [place] [address] ALT [Catalytic activity/Vol] 20 U/L Normal 10-52 [facility] Comment on above: Performed By: #### U LYTR, UCRER #### [facility] (DEFAULT) [address] [place] [address] 02446 Anion gap [Moles/Vol] 9 mmol/L Normal 7-17 [facility] Comment on above: Performed By: #### U LYTR, UCRER #### [facility] (DEFAULT) [address] [place] [address] 08784 AST [Catalytic activity/Vol] 19 U/L Normal 10-39 [facility] Comment on above: Performed By: #### U LYTR, UCRER #### [facility] (DEFAULT) [address] [place] [address] 33354 Bilirubin [Mass/Vol] 0.8 mg/dL Normal <1.5 [facility] Comment on above: Performed By: #### U LYTR, UCRER #### [facility] (DEFAULT) [address] [place] [address] 90410 Calcium [Mass/Vol] 9.7 mg/dL Normal 8.6-10.[address] [facility] Comment on above: Performed By: #### U LYTR, UCRER #### [facility] (DEFAULT) [address] [place] [address] 29348 Chloride [Moles/Vol] 105 mmol/L Normal 98-108 [facility] Comment on above: Performed By: #### U LYTR, UCRER #### [facility] (DEFAULT) [address] [place] [address] 08847 CO2 [Moles/Vol] 32 mmol/L High 21-31 [facility] Comment on above: Performed By: #### U LYTR, UCRER #### [facility] (DEFAULT) [address] [place] [address] 99005 Creatinine [Mass/Vol] 1.59 mg/dL High 0.70-1.30 [facility] Comment on above: Performed By: #### U LYTR, UCRER #### [facility] (DEFAULT) [address] [place] [address] 88623 GFR/1.73 sq M.predicted among non-blacks MDRD (S/P/Bld) [Vol rate/Area] 42 mL/min/{1.73_m2} Low >=60 [facility] Comment on above: Result Comment: Repo rted eGFR is based on the CKD-EPI 2020 equation using creatinine, age, and sex. Performed By: #### U LYTR, UCRER #### [facility] (DEFAULT) [address] [place] [address] 20806 Glucose [Mass/Vol] 104 mg/dL Normal Nonfastin -179 mg/dL; Fastin-99 [facility] Comment on above: Performed By: #### U LYTR, UCRER #### [facility] (DEFAULT) [address] [place] [address] 26874 Osmolality [Osmolality] 301 mosm/kg Normal 278-305 [facility] Comment on above: Performed By: #### U LYTR, UCRER #### [facility] (DEFAULT) [address] [place] [address] 46376 Potassium [Moles/Vol] 4.1 mmol/L Normal 3.5-5.0 [facility] Comment on above: Performed By: #### U LYTR, UCRER #### [facility] (DEFAULT) [address] [place] [address] 55612 Protein [Mass/Vol] 6.7 g/dL Normal 6.4-8.[address] [facility] Comment on above: Performed By: #### U LYTR, UCRER #### [facility] (DEFAULT) [address] [place] [address] 19015 Sodium [Moles/Vol] 142 mmol/L Normal 135-[address] [facility] Comment on above: Performed By: #### U LYTR, UCRER #### [facility] (DEFAULT) [address] [place] [address] 14193 Urea nitrogen [Mass/Vol] 23 mg/dL Normal 7-25 [facility] Comment on above: Performed By: #### U JAMES, UCRER #### [facility] (DEFAULT) [address] [place] [address] 77823 Urea nitrogen/Creatinine [Mass ratio] 14 mg/mg Normal [facility] Comment on above: Performed By: #### U JAMES, UCRER #### [facility] (DEFAULT) [address] [place] [address] 08056 HLA SINGLE LOCUSon 5 HLA ALLELE 1 A*11:01 Normal [facility] Comment on above: Order Comment: High resolution HLA-A 02:01 Performed By: #### S URGP #### [facility] (DEFAULT) [address] [address] HLA ALLELE 2 A*24:02 Normal [facility] Comment on above: Order Comment: High resolution HLA-A 02:01 Performed By: #### S URGP #### [facility] (DEFAULT) [address] [address] HLA INTERPRETATION Negative Normal [facility] Comment on above: Order Comment: High [...] need for FDA approval.Testing performed by the [facility] Clinical Histocompatibility Laboratory. [facility] number: [id number]. CLIA number: [id number], Director: Kieran Pastrana, PhD, F([facility]). Performed By: #### S URGP #### [facility] (DEFAULT) [address] [address] LACTATE DEHYDROGENASEon 08-0 7-2025 LDH Lactate to pyruvate reaction [Catalytic activity/Vol] 205 U/L High 100 - 190 U/L [facility] LD Total 205 U/L High 100-190 [facility] Comment on above: Performed By: #### U LYTR, UCRER #### [facility] (DEFAULT) [address] [place] [address] 32365 No Panel Informationon 05-10 Interpretation and review of laboratory results Abnormal [facility] OTHER AP REQUESTon Test Requested Block requested and received from outside facility. Order processed when received. The tissue block(s) was submitted to the [facility] clinical histology laboratory for additional processing and staining. Normal [facility] Comment on above: Performed By: #### C A, CHM7, IPB, T3RIA, MGO #### [facility] (DEFAULT) [address] [place] [address] 56764 Tissue tested skin biopsy of the inferior back lesion [id number] (BX: 03/28/2025) Normal [facility] Comment on above: Performed By: #### C A, CHM7, IPB, T3RIA, MGO #### [facility] (DEFAULT) [address] [place] [address] 20104 Tumor type Derm Path/Melanoma [facility] Comment on above: Performed By: #### C A, CHM7, IPB, T3RIA, MGO #### [facility] (DEFAULT) [address] [place] [address] 36606 TUMOR HOTSPOT MUTATION PANEL , REQUESTon 05-10-2025 Sendout Result Block requested and received from outside facility. Order processed when received. The tissue block(s) was submitted to the [facility] clinical histology laboratory for additional processing and staining. [facility] Comment on above: Performed By: #### C A, CHM7, IPB, T3RIA, MGO #### [facility] (DEFAULT) [address] [place], [place] [id number] Orders Onlyon 05-08-2025 Orders Only [id number] Sebastian Hannon 1935 M Date Provider Department Center 05/08/2025 [facility] Family History Problem Relation Age of Onset Other Mother Coronary artery disease Father Family Status - Relation Status Age at Mother Father [facility] SURG PATH REQUESTon 05-08-20 Case Report [facility] Comment on above: Result Comment: Surg ical Pathology Report Case: [id number] Authorizing Provider: Duglas Walsh MD, PhD Collected: 05/08/2025 08:29 AM Ordering Location: Dermatopathology Received: 05/08/2025 08:[address] 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 These findings were correlated with the histologic diagnosis of the current specimen. [facility] Comment on above: Performed By: #### U LYTR, UCRER #### [facility] (DEFAULT) [address] [place] [address]62 Gross Description [facility] Comment on above: Result Comment: Rece ived from [facility], [address], [address] [place] [address], are twenty-three slides labeled [id number] (A1-1 H&E through A11-1 H&E, A7 SOX10; [...] By: #### U JAMES, UCRER #### [facility] (DEFAULT) [address] [phone] Microscopic Description Normal [facility] Comment on above: Result Comment: A. H [...] Performed By: #### U JAMES, UCRER #### [facility] (DEFAULT) [address] [place], [place] [phone] Pathologic Diagnosis Normal [facility] Comment on above: Result Comment: OUTS JULIO SLIDES: [id number] (10/28/2023) A. Skin, right scalp, long stitch [...] By: #### U LYWILLIS UCRER #### [facility] (DEFAULT) [address] [place] [address] Professional Interpretation Performed at: Normal [facility] Comment on above: Result Comment: [facility] For Immediate Release to Patient's MyChart? Yes [address] [facility], [address] [place] [address] Performed By: #### U JAMES, UCRER #### [facility] (DEFAULT) [address] [place] [address] Synoptic Checklist [facility] Comment on above: Result Comment: INVA [...] Lymph Nodes with Tumor: 2 Number of [place] Lymph Nodes with Tumor: 2 Candida Site(s) with Tumor: Subcapsular Candida Site(s) with Tumor: Intraparenchymal Size of Largest [place] Node Metastatic Deposit: 0.90 mm Extranodal Extension: Not Identified Matted Nodes: Not identified Total Number of Lymph Nodes Examined (sentinel and non-sentinel): 2 Number of [place] Nodes Examined: 2 pTNM CLASSIFICATION (AJCC 8th [...] By: #### U JAMES, LOIS #### [facility] ([facility]) [address] [place] [address] Office Visiton 04-30-2025 Follow-up visit [id number] Sebastian Hannon 1935 [facility] Provider Department [place] 04/30/2025 DYLON SALCEDO [facility] Family History Problem Relation Age of Onset Other Mother Coronary artery disease Father Family Status - Relation Status Age at Mother Father Level of Service:17130 DC OFFICE/OUTPATIENT ESTABLISHED MOD MDM [address] [facility] Capillary blood glucose kumar urement by glucometer (mass/volume)Ordered By: Adilene Weinberg on 04-18-2025 Glucose [Mass/Vol] 96 mg/dL Normal [facility] Comment on above: Random Glucose Refer ence Range is dependent on time and content of last meal. Glucose of more than 200 mg/dL in a nonstressed, ambulatory subject supports the diagnosis of Diabetes Mellitus. Result Comment: [place] om Glucose Reference Range is dependent on time and content of last meal. Glucose of more than 200 mg/dL in a nonstressed, ambulatory subject supports the diagnosis of Diabetes Mellitus. PERFORMED BY: [facility] [address] [place] [address] PATHOLOGIST FUEL OIL CLERK ZACHARY HEWITT M.D. Performed By: #### G LUMARCELINO ####Point of Care testing, GLUCOSE POCT GLUCOMETERSon 0 04-18-2025 Glucose [Mass/Vol] 96 mg/dL [facility] Comment on above: Random Glucose Refer ence Range is dependent on time and content of last meal. Glucose of more than 200 mg/dL in a nonstressed, ambulatory subject supports the diagnosis of Diabetes Mellitus. [facility] PET tumor subq tx strat wbon 04-18-2025 PET tumor subq tx strat wb [facility] [place] [address] Nuclear Medicine Report Signed Patient: Sebastian Hannon MR#: [id number] 0 : 1935 Acct:[id number] Age/Sex: 89 / M ADM Date: 04/18/25 Loc: Room: [facility]: Adilene Weinberg MD Copies to: [...] t (more content not included)... Normal [facility] Surgical pathology studyon 0 04-13-2025 Surgical pathology study Pathology report.total SEE COMMENT Dermatopathology Report Case: [id number] Authorizing Provider: Duglas Busby MD Collected: 04/13/2025 1343 Ordering Location: [facility] Received: 04/13/2025 1343 [facility] Pathologist: Donna Blanchard MD Specimen: OUTSIDE BLOCK(S)/SLIDE(S), 3 SLIDES, [facility], #[id number] (BX: 03/28/2025) Path report.final diagnosis SEE COMMENT 3 SLIDES, [facility], #[id number] (BX: 03/28/2025) SKIN, LEFT INFERIOR MEDIAL UPPER [...] Received for consultation from [facility] are three slides labeled #[id number] (BX: 03/28/2025) along with the corresponding pathology report. [facility] Comment on above: Order Comment: Mater ials Received: 3 SLIDES, [facility], #[id number] (BX: 03/28/2025) Alanine aminotransferase [En zymatic activity/volume] in Serum or PlasmaOrdered By: Adilene Weinberg on 04-04-2025 ALT [Catalytic activity/Vol] 23 U/L Normal 7-52 [facility] Comment on above: Performed By: #### C RP, ESR, CBC, LDH, CMP #### [address] Albumin [Mass/volume] in Ser um or Plasma by Bromocresol green (BCG) dye binding methoOrdered By: Adilene Weinberg on 04-04-2025 Albumin BCG dye [Mass/Vol] 4.3 g/dL 3.5-5.7 [facility] Alkaline phosphatase [Enzyma tic activity/volume] in Serum or PlasmaOrdered By: Adilene Weinberg on 04-04-2025 ALP [Catalytic activity/Vol] 77 U/L Normal 34-104 [facility] Comment on above: Performed By: #### C RP, ESR, CBC, LDH, CMP #### [facility] [address] Aspartate aminotransferase [ Enzymatic activity/volume] in Serum or PlasmaOrdered By: Adilene Weinberg on 04-04-2025 AST [Catalytic activity/Vol] 22 U/L Normal 13-39 [facility] Comment on above: Performed By: #### C RP, ESR, CBC, LDH, CMP #### [facility] [address] [place] [address] [place] Basophils [#/volume] in Bloo d by Automated countOrdered By: Adilene Weinberg on 04-04-2025 Basophils (Bld) [#/Vol] 0.0 10*3/uL Normal 0.0-0.2 [facility] Comment on above: Performed By: #### C RP, ESR, CBC, LDH, CMP #### [facility] [address] [place] [address] [place] Basophils/100 leukocytes in Blood by Automated countOrdered By: Adilene Weinberg on 04-04-2025 Basophils/100 WBC (Bld) 0.7 % Normal . [facility] Comment on above: Performed By: #### C RP, ESR, CBC, LDH, CMP #### [facility] [address] [place] [address] [place] Bilirubin.total [Mass/volume ] in Serum or PlasmaOrdered By: Adilene Weinberg on 04-04-2025 Bilirubin [Mass/Vol] 0.7 mg/dL Normal 0.3-1.0 [facility] Comment on above: Performed By: #### C RP, ESR, CBC, LDH, CMP #### [facility] [address] [place] [address] [place] C reactive protein [Mass/vol ume] in Serum or PlasmaOrdered By: Adilene Weinberg on 04-04-2025 CRP [Mass/Vol] < 0.5 mg/dL 0.0-0.5 [facility] C-Reactive Proteinon 025 CRP [Mass/Vol] mg/L Normal 0.0-0.5 [facility] Comment on above: Result Comment: PERF ORMED BY: [place] [address] PATHOLOGIST FUEL OIL CLERK ZACHARY HEWITT M.D. Performed By: #### C RP, ESR, CBC, LDH, CMP #### [address] CRP [Mass/Vol]on 04-04-2025 C-REACTIVE PROTEIN mg/dL 0.0 - 0.5 mg/dL [facility] Calcium [Mass/volume] in Ser um or PlasmaOrdered By: Adilene Weinberg on 04-04-2025 Calcium [Mass/Vol] 9.4 mg/dL Normal 8.6-10.3 [facility] Comment on above: Performed By: #### C RP, ESR, CBC, LDH, CMP #### [address] Carbon dioxide, total [Moles /volume] in Serum or PlasmaOrdered By: Adilene Weinberg on 04-04-2025 CO2 [Moles/Vol] 30.0 mmol/L Normal 21.0-31.0 [facility] Comment on above: Performed By: #### C RP, ESR, CBC, LDH, CMP #### [address] Chloride [Moles/volume] in S boby or PlasmaOrdered By: Adilene Weinberg on 04-04-2025 Chloride [Moles/Vol] 100 mmol/L Normal 98-107 [facility] Comment on above: Performed By: #### C RP, ESR, CBC, LDH, CMP #### [address] Complete Blood Count Auto Di ffon 04-04-2025 Mean Corpuscular HGB Conc 33.6 g/dL Normal 32.5-35.6 [facility] Comment on above: Performed By: #### C RP, ESR, CBC, LDH, CMP #### [address] NRBC% 0.0 /100{WBC} Normal 0-0.5 [facility] Comment on above: Performed By: #### C RP, ESR, CBC, LDH, CMP #### [facility] [address] White Blood Count 5.0 [CFU]/mL Normal 4.1-10.5 [facility] Comment on above: Performed By: #### C RP, ESR, CBC, LDH, CMP #### [facility] [address] Comprehensive Metabolic Pane [facility] 04-04-2025 Albumin [Mass/Vol] 4.3 g/dL Normal 3.5-5.7 [facility] Comment on above: Performed By: #### C RP, ESR, CBC, LDH, CMP #### [address] GFR/1.73 sq M.predicted MDRD (S/P/Bld) [Vol rate/Area] 44.425 mL/min/{1.73_m2} Normal [facility] Comment on above: Performed By: #### C RP, ESR, CBC, LDH, CMP #### [address] Comprehensive metabolic pane [facility] 04-04-2025 Albumin [Mass/Vol] 4.3 g/dL 3.5 - 5.7 g/dL [facility] Albumin/Globulin [Mass ratio] 2.5 {ratio} [facility] ALP [Catalytic activity/Vol] 77 U/L 34 - 104 U/L [facility] ALT [Catalytic activity/Vol] 23 U/L 7 - 52 U/L [facility] Anion gap [Moles/Vol] 12.3 mmol/L 6.0 - 15.0 [facility] AST [Catalytic activity/Vol] 22 U/L 13 - 39 U/L [facility] Bilirubin [Mass/Vol] 0.7 mg/dL 0.3 - 1 .0 mg/dL [facility] Calcium [Mass/Vol] 9.4 mg/dL 8.6 - 10. 3 mg/dL [facility] Chloride [Moles/Vol] 100 mmol/L 98 - 10 7 mmol/L [facility] CO2 [Moles/Vol] 30 mmol/L 21.0 - 31.0 mmol/L [facility] Creatinine (U) [Mass/Vol] 1.51 mg/dL High 0.70 - 1.30 mg/dL [facility] GFR/1.73 sq M.predicted MDRD (S/P/Bld) [Vol rate/Area] 44.425 mL/min/{1.73_m2} [facility] Globulin (S) [Mass/Vol] 1.7 g/dL N [facility] Glucose [Mass/Vol] 87 mg/dL 70 - 100 mg/dL [facility] Comment on above: Random Glucose Refer ence Range is dependent on time and content of last meal. Glucose of more than 200 mg/dL in a nonstressed, ambulatory subject supports the diagnosis of Diabetes Mellitus. ADA recommended reference range Interpretation and review of laboratory results Abnormal [facility] Potassium [Moles/Vol] 4.3 mmol/L 3.5 - 5.1 mmol/L [facility] Protein [Mass/Vol] 6 g/dL Low 6.4 - 8.9 g/dL [facility] Sodium [Moles/Vol] 138 mmol/L 136 - 145 mmol/L [facility] Urea nitrogen [Mass/Vol] 26 mg/dL High 7 - 25 mg/dL [facility] Creatinine [Mass/volume] in Serum or PlasmaOrdered By: Adilene Weinberg on 04-04-2025 Creatinine [Mass/Vol] 1.51 mg/dL High 0.70-1.30 [facility] Comment on above: Performed By: #### C RP, ESR, CBC, LDH, CMP #### [facility] [address] [place] [address] [place] Eosinophils [#/volume] in Bl ood by Automated countOrdered By: Adilene Weinberg on 04-04-2025 Eosinophils (Bld) [#/Vol] 0.1 10*3/uL Normal 0.0-0.45 [facility] Comment on above: Performed By: #### C RP, ESR, CBC, LDH, CMP #### [facility] [address] [place] [address] [place] Eosinophils/100 leukocytes i n Blood by Automated countOrdered By: Adilene Weinberg on 04-04-2025 Eosinophils/100 WBC (Bld) 2.3 % Normal . [facility] Comment on above: Performed By: #### C RP, ESR, CBC, LDH, CMP #### [facility] [address] Erythrocyte Sedimentation Ra shayy 04-04-2025 ESR (Bld) [Velocity] 17 mm/h Normal 0-19 [facility] Comment on above: Result Comment: PERF ORMED BY: [place] [address] PATHOLOGIST FUEL OIL CLERK ZACHARY HEWITT M.D. Performed By: #### C RP, ESR, CBC, LDH, CMP #### [address] Erythrocyte distribution wid th [Ratio] by Automated countOrdered By: Adilene Weinberg on 04-04-2025 Erythrocyte distribution width (RBC) [Ratio] 14.2 % Normal 12.0-14.8 [facility] Comment on above: Performed By: #### C RP, ESR, CBC, LDH, CMP #### [address] Erythrocyte sedimentation ra te by Photometric methodOrdered By: Maite Wong on 04-04-2025 ESR Photometric method (Bld) [Velocity] 17 mm/hr 0-19 [facility] Erythrocytes [#/volume] in B lood by Automated countOrdered By: Adilene Weinberg on 04-04-2025 RBC (Bld) [#/Vol] 2.72 10*6/uL Low 3.90-5.60 [facility] Comment on above: Performed By: #### C RP, ESR, CBC, LDH, CMP #### [address] Glucose [Mass/volume] in Ser um or PlasmaOrdered By: Adilene Weinberg on 04-04-2025 Glucose [Mass/Vol] 87 mg/dL Normal 70-100 [facility] Comment on above: ADA recommended refe rence rangeRandom Glucose Reference Range is dependent on time and content of last meal. Glucose of more than 200 mg/dL in a nonstressed, ambulatory subject supports the diagnosis of Diabetes Mellitus. Result Comment: [place] Glucose Reference Range is dependent on time and content of last meal. Glucose of more than 200 mg/dL in a nonstressed, ambulatory subject supports the diagnosis of Diabetes Mellitus. ADA recommended reference range Performed By: #### C RP, ESR, CBC, LDH, CMP #### [facility] [address] Hematocrit [Volume Fraction] of Blood by Automated countOrdered By: Adilene Weinberg on 04-04-2025 Hematocrit (Bld) [Volume fraction] 25.9 % Low 38.8-50.0 [facility] Comment on above: Performed By: #### C RP, ESR, CBC, LDH, CMP #### [address] Hemoglobin [Mass/volume] in BloodOrdered By: Adilene Weinberg on 04-04-2025 Hemoglobin (Bld) [Mass/Vol] 8.7 g/dL Low 13.0-17.0 [facility] Comment on above: Performed By: #### C RP, ESR, CBC, LDH, CMP #### [address] LDH Lactate Dehydrogenaseon 04-04-2025 LDH Lactate Dehydrogenase 196 U/L Normal 140-271 [facility] Comment on above: Performed By: #### C RP, ESR, CBC, LDH, CMP #### [address] LDH Lactate to pyruvate reac tion [Catalytic activity/Vol]on 04-04-2025 LDH LACTATE DEHYDROGENASE 196 U/L 140 - 271 U/L [facility] Lactate dehydrogenase [Enzym atic activity/volume] in Serum or Plasma by Lactate to pyOrdered By: Adilene Weinberg on 04-04-2025 LDH Lactate to pyruvate reaction [Catalytic activity/Vol] 196 U/L 140-271 [facility] Leukocytes [#/volume] correc bert for nucleated erythrocytes in Blood by Automated counOrdered By: Adilene Weinberg on 04-04-2025 WBC corrected for nucl RBC Auto (Bld) [#/Vol] 5.0 10*3/uL 4.1-10.5 [facility] Leukocytes [#/volume] in Blo od by Automated countOrdered By: Adilene Weinberg on 04-04-2025 WBC (Bld) [#/Vol] 5.0 10*3/uL Normal 4.1-10.5 [facility] Comment on above: Performed By: #### C RP, ESR, CBC, LDH, CMP #### [address] Lymphocytes [#/volume] in Bl ood by Automated countOrdered By: Adilene Weinberg on 04-04-2025 Lymphocytes (Bld) [#/Vol] 0.6 10*3/uL Low 1.00-4.8 [facility] Comment on above: Performed By: #### C RP, ESR, CBC, LDH, CMP #### [address] Lymphocytes/100 leukocytes i n Blood by Automated countOrdered By: Adilene Weinberg on 04-04-2025 Lymphocytes/100 WBC (Bld) 12.9 % Normal . [facility] Comment on above: Performed By: #### C RP, ESR, CBC, LDH, CMP #### [address] MCH [Entitic mass] by Automa bert countOrdered By: Adilene Weinberg on 04-04-2025 MCH (RBC) [Entitic mass] 32.0 pg Normal 27.5-35.2 [facility] Comment on above: Performed By: #### C RP, ESR, CBC, LDH, CMP #### [address] MCHC Auto (RBC) [Mass/Vol]Or dered By: Adilene Weinberg on 04-04-2025 MCHC (RBC) [Mass/Vol] 33.6 g/dL 32.5-35.6 [facility] MCV [Entitic volume] by Auto mated countOrdered By: Adilene Weinberg on 04-04-2025 MCV (RBC) [Entitic vol] 95.4 fL Normal 83.5-101 [facility] Comment on above: Performed By: #### C RP, ESR, CBC, LDH, CMP #### [facility] [address] [place] [address] [place] Monocytes [#/volume] in Bloo d by Automated countOrdered By: Adilene Weinberg on 04-04-2025 Monocytes (Bld) [#/Vol] 0.6 10*3/uL Normal 0.0-0.8 [facility] Comment on above: Performed By: #### C RP, ESR, CBC, LDH, CMP #### [place] [facility] [address] [place] [address] [place] Monocytes/100 leukocytes in Blood by Automated countOrdered By: Adilene Weinberg on 04-04-2025 Monocytes/100 WBC (Bld) 12.1 % Normal . [facility] Comment on above: Performed By: #### C RP, ESR, CBC, LDH, CMP #### [facility] [address] [place] [address] [place] Neutrophils [#/volume] in Bl ood by Automated countOrdered By: Adilene Weinberg on 04-04-2025 Neutrophils (Bld) [#/Vol] 3.6 10*3/uL Normal 1.8-7.7 [facility] Comment on above: Performed By: #### C RP, ESR, CBC, LDH, CMP #### [facility] [address] [place] [address] Neutrophils/100 leukocytes i n Blood by Automated countOrdered By: Adilene Weinberg on 04-04-2025 Neutrophils/100 WBC (Bld) 72.0 % Normal . [facility] Comment on above: Performed By: #### C RP, ESR, CBC, LDH, CMP #### [address] No Panel Informationon 04-04 [facility] No Panel InformationOrdered By: Adilene Weinberg on 04-04-2025 Estimated GFR (CKD-EPI) 44.425 mL/Min [facility] Creatinine Clearance (Chem N/A [facility] Nucleated erythrocytes [Pres ence] in Blood by Automated countOrdered By: Adilene Weinberg on 04-04-2025 Nucleated RBC Auto Ql (Bld) 0.0 /100{WBC} 0-0.5 [facility] Platelet mean volume [Entiti c volume] in Blood by Automated countOrdered By: Adilene Weinberg on 04-04-2025 Platelet mean volume (Bld) [Entitic vol] 8.5 fL Normal 6.6-10.1 [facility] Comment on above: Performed By: #### C RP, ESR, CBC, LDH, CMP #### [facility] [address] Platelets [#/volume] in Bloo d by Automated countOrdered By: Adilene Weinberg on 04-04-2025 Platelets (Bld) [#/Vol] 129 10*3/uL Low 150-450 [facility] Comment on above: Performed By: #### C RP, ESR, CBC, LDH, CMP #### [address] Potassium [Moles/volume] in Serum or PlasmaOrdered By: Adilene Weinberg on 04-04-2025 Potassium [Moles/Vol] 4.3 mmol/L Normal 3.5-5.1 [facility] Comment on above: Performed By: #### C RP, ESR, CBC, LDH, CMP #### [address] Protein [Mass/volume] in Ser um or PlasmaOrdered By: Adilene Weinberg on 04-04-2025 Protein [Mass/Vol] 6.0 g/dL Low 6.4-8.9 [facility] Comment on above: Performed By: #### C RP, ESR, CBC, LDH, CMP #### [address] Serum globulin measurement b y calculation (mass/volume)Ordered By: Adilene Weinberg on 04-04-2025 Globulin (S) [Mass/Vol] 1.7 g/dL Normal [facility] Comment on above: Performed By: #### C RP, ESR, CBC, LDH, CMP #### [address] Serum or plasma albumin/glob ulin mass ratioOrdered By: Adilene Weinberg on 07-02-2025 Albumin/Globulin [Mass ratio] 2.5 {ratio} Normal [facility] Comment on above: Performed By: #### C RP, ESR, CBC, LDH, CMP #### [facility] [address] Serum or plasma anion gap de terminationOrdered By: Adielne Weinberg on 04-04-2025 Anion gap [Moles/Vol] 12.3 mmol/L Normal 6.0-15.0 [facility] Comment on above: Performed By: #### C RP, ESR, CBC, LDH, CMP #### [facility] [address] Sodium [Moles/volume] in Ser um or PlasmaOrdered By: Adilene Weinberg on 04-04-2025 Sodium [Moles/Vol] 138 mmol/L Normal 136-145 [facility] Comment on above: Performed By: #### C RP, ESR, CBC, LDH, CMP #### [facility] [address] Urea nitrogen [Mass/volume] in Serum or PlasmaOrdered By: Adilene Weinberg on 04-04-2025 Urea nitrogen [Mass/Vol] 26 mg/dL High 7-25 [facility] Comment on above: Performed By: #### C RP, ESR, CBC, LDH, CMP #### [facility] [address] Estimated glomerular filtrat ion rate (GFR) non- AmericanOrdered By: Dylon Kate on 03-28-2025 GFR/1.73 sq M.predicted among non-blacks MDRD (S/P/Bld) [Vol rate/Area] 46 mL/min/{1.73_m2} Low >=60 mL/min/1.73 m 2 [facility] Laboratory - Chemistry and C hemistry - challengeOrdered By: Dylon Kate on 03-28-2025 Calcium [Mass/Vol] 9.4 mg/dL 8.5-10.1 [facility] Chloride [Moles/Vol] 103 mmol/L 98-107 [facility] CO2 [Moles/Vol] 27.0 mmol/L 21.0-32.0 [facility] Creatinine [Mass/Vol] 1.46 mg/dL High 0.70-1.30 [facility] GFR/1.73 sq M.predicted MDRD (S/P/Bld) [Vol rate/Area] 55 mL/min/{1.73_m2} Low >=60 mL/min/1.73 m 2 [facility] Glucose [Mass/Vol] 93 mg/dL 74-106 [facility] Potassium [Moles/Vol] 3.9 mmol/L 3.5-5.1 [facility] Sodium [Moles/Vol] 141 mmol/L 136-145 [facility] Urea nitrogen [Mass/Vol] 31.0 mg/dL High 7.0-18.0 [facility] Urea nitrogen/Creatinine [Mass ratio] 21.2 mg/mg [facility] Serum or plasma anion gap de terminationOrdered By: Dylon Kate on 03-28-2025 Anion gap [Moles/Vol] 14.9 mmol/L [facility] Follow-Upon 03-14-2025 Follow-Up [id number] Sebastian Hannon 1935 M Date Provider Department Center 03/14/2025 DYLON SALCEDO JESSICA [facility] Family History Problem Relation Age of Onset Other Mother Coronary artery disease Father Family Status - Relation Status Age at Mother Father Level of Service:23371 DC OFFICE/OUTPATIENT ESTABLISHED MOD MDM [address] [facility] Orders Onlyon 03-12-2025 Orders Only [id number] Sebastian Hannon 1935 M Date Provider Department Center 03/12/2025 [facility] Family History Problem Relation Age of Onset Other Mother Coronary artery disease Father Family Status - Relation Status Age at Mother Father Normal [facility] Estimated glomerular filtrat ion rate (GFR) non- Americanon 03-09-2025 GFR/1.73 sq M.predicted among non-blacks MDRD (S/P/Bld) [Vol rate/Area] 33 mL/min/{1.73_m2} Low >=60 mL/min/1.73 m 2 [facility] Laboratory - Chemistry and C hemistry - challengeon 03-09-2025 Calcium [Mass/Vol] 9.4 mg/dL 8.5-10.1 [facility] Chloride [Moles/Vol] 102 mmol/L 98-107 [facility] CO2 [Moles/Vol] 31.7 mmol/L 21.0-32.0 [facility] Creatinine [Mass/Vol] 1.96 mg/dL High 0.70-1.30 [facility] GFR/1.73 sq M.predicted MDRD (S/P/Bld) [Vol rate/Area] 39 mL/min/{1.73_m2} Low >=60 mL/min/1.73 m 2 [facility] Glucose [Mass/Vol] 98 mg/dL 74-106 [facility] Magnesium [Mass/Vol] 1.8 mg/dL 1.8-2.4 [facility] Potassium [Moles/Vol] 3.9 mmol/L 3.5-5.1 [facility] Sodium [Moles/Vol] 142 mmol/L 136-145 [facility] Urea nitrogen [Mass/Vol] 38.0 mg/dL High 7.0-18.0 [facility] Urea nitrogen/Creatinine [Mass ratio] 19.4 mg/mg [facility] Serum or plasma anion gap de terminationon 03-09-2025 Anion gap [Moles/Vol] 12.2 mmol/L [facility] HPon 03-01-2025 HP History Of Present Illness [...] [OLGUIN to LAD, saphenous vein graft to [id number] and 2nd obtuse marginal branch, saphenous venous [...] and A (more content not included)... Normal [facility] NURSNOTEon 03-01-2025 NURSNOTE RN educated pt on [...] off of unit with all of belongings. [facility] Orders Onlyon 02-09-2025 Orders Only [id number] Sebastian Hannon 1935 M Date Provider Department Center 02/09/2025 [facility] Family History Problem Relation Age of Onset Other Mother Coronary artery disease Father Family Status - Relation Status Age at Mother Father Normal [facility] Basophils Auto (Bld) [#/Vol] on 01-26-2025 Basophils (Bld) [#/Vol] 0.0 10 3/uL 0.0-0.1 [facility] Basophils/100 WBC Auto (Bld) on 01-26-2025 Basophils/100 WBC (Bld) 0.7 % 0.2-2.0 [facility] Eosinophils/100 WBC Auto (Bl d)on 01-26-2025 Eosinophils/100 WBC (Bld) 1.8 % 0.9-7.0 [facility] Erythrocyte distribution wid th Auto (RBC) [Ratio]on 01-26-2025 Erythrocyte distribution width (RBC) [Ratio] 13.5 % 11.0-15.0 [facility] Hematocrit Auto (Bld) [Volum e fraction]on 01-26-2025 Hematocrit (Bld) [Volume fraction] 27.8 % Low 42.0-54.0 [facility] Hemoglobin [Mass/volume] in Bloodon 01-26-2025 Hemoglobin (Bld) [Mass/Vol] 9.2 g/dL Low 14.0-18.0 [facility] Laboratory - Hematology and Cell countson 01-26-2025 Immature granulocytes/100 WBC (Bld) 0.2 % 0.0-0.5 [facility] Leukocytes [#/volume] correc bert for nucleated erythrocytes in Blood by Automated counon 01-26-2025 WBC corrected for nucl RBC Auto (Bld) [#/Vol] 4.4 10 3/uL 4.0-11.0 [facility] Lymphocytes Auto (Bld) [#/Vo l]on 01-26-2025 Lymphocytes (Bld) [#/Vol] 0.8 10 3/uL Low 1.2-3.8 [facility] Lymphocytes/100 WBC Auto (Bl d)on 01-26-2025 Lymphocytes/100 WBC (Bld) 19.1 % Low 20.5-60.0 [facility] MCH Auto (RBC) [Entitic mass ]on 01-26-2025 MCH (RBC) [Entitic mass] 33.2 pg 25.9-34.0 [facility] MCHC Auto (RBC) [Mass/Vol]on 01-26-2025 MCHC (RBC) [Mass/Vol] 33.1 g/dL 29.9-35.2 [facility] MCV Auto (RBC) [Entitic vol] on 01-26-2025 MCV (RBC) [Entitic vol] 100.4 fL High 80.0-94.0 [facility] Monocytes Auto (Bld) [#/Vol] on 01-26-2025 Monocytes (Bld) [#/Vol] 0.5 10 3/uL 0.3-0.8 [facility] Monocytes/100 WBC Auto (Bld) on 01-26-2025 Monocytes/100 WBC (Bld) 12.3 % High 1.7-12.0 [facility] Neutrophils Auto (Bld) [#/Vo l]on 01-26-2025 Neutrophils (Bld) [#/Vol] 2.9 10 3/uL 1.4-6.5 [facility] Neutrophils/100 WBC Auto (Bl d)on 01-26-2025 Neutrophils/100 WBC (Bld) 65.9 % 43.0-75.0 [facility] No Panel Informationon 01-26 Eosinophils # (Auto) 0.1 10 3/uL 0.0-0.7 [facility] Immature Granulocyte # (Auto) 0.01 10 3/uL 0.00-0.03 [facility] Platelet mean volume Auto (B ld) [Entitic vol]on 01-26-2025 Platelet mean volume (Bld) [Entitic vol] 9.7 fL 9.5-13.5 [facility] Platelets Auto (Bld) [#/Vol] on 01-26-2025 Platelets (Bld) [#/Vol] 120 10 3/uL Low 150-450 [facility] RBC Auto (Bld) [#/Vol]on RBC (Bld) [#/Vol] 2.77 10 6/uL Low 4.70-6.10 [facility] Office Visiton 01-24-2025 Follow-up visit [id number] Sebastian Hannon 1935 M Date Provider Department Center 01/24/2025 DYLON SALCEDO JESSICA Landis [facility] Family History Problem Relation Age of Onset Other Mother Coronary artery disease Father Family Status - Relation Status Age at Mother Father Level of Service:59998 DC OFFICE/OUTPATIENT ESTABLISHED HIGH MDM [address] [facility] Estimated glomerular filtrat ion rate (GFR) non- Americanon 01-22-2025 GFR/1.73 sq M.predicted among non-blacks MDRD (S/P/Bld) [Vol rate/Area] Estimated glomerular filtration rate (GFR) non- Low >=60 mL/min/1.73 m 2 [facility] GFR/1.73 sq M.predicted among non-blacks MDRD (S/P/Bld) [Vol rate/Area] 50 mL/min/{1.73_m2} Low >=60 mL/min/1.73 m 2 [facility] Laboratory - Chemistry and C hemistry - challengeon 01-22-2025 Calcium [Mass/Vol] 9.1 mg/dL 8.5-10.1 [facility] Chloride [Moles/Vol] 106 mmol/L 98-107 [facility] CO2 [Moles/Vol] 28.8 mmol/L 21.0-32.0 [facility] Creatinine [Mass/Vol] 1.35 mg/dL High 0.70-1.30 [facility] GFR/1.73 sq M.predicted MDRD (S/P/Bld) [Vol rate/Area] mL/min/{1.73_m2} >=60 mL/min/1.73 m 2 [facility] Glucose [Mass/Vol] 92 mg/dL 74-106 [facility] Potassium [Moles/Vol] 4.3 mmol/L 3.5-5.1 [facility] Sodium [Moles/Vol] 143 mmol/L 136-145 [facility] Urea nitrogen [Mass/Vol] 22.0 mg/dL High 7.0-18.0 [facility] Urea nitrogen/Creatinine [Mass ratio] 16.3 mg/mg [facility] Serum or plasma anion gap de terminationon 01-22-2025 Anion gap [Moles/Vol] Serum or plasma an ion gap determination [facility] Anion gap [Moles/Vol] 12.5 mmol/L [facility] Alanine aminotransferase [En zymatic activity/volume] in Serum or PlasmaOrdered By: Adilene Weinberg on 01-02-2025 ALT [Catalytic activity/Vol] Alanine aminotransferase [Enzymatic activity/volume] in Serum or Plasma [facility] ALT [Catalytic activity/Vol] 27 U/L Normal [facility] Comment on above: Order Comment: STAT FOR CT BUN/CREAT Performed By: #### C MP, LDH ####[facility] [id number] [place] [id number] [facility] Albumin [Mass/volume] in Ser um or Plasma by Bromocresol green (BCG) dye binding methoOrdered By: Adilene Weinberg on 01-02-2025 Albumin BCG dye [Mass/Vol] Albumin [Mass/volume] in Serum or Plasma by Bromocresol green (BCG) dye binding metho 3.5-5.7 [facility] Albumin BCG dye [Mass/Vol] 4.5 g/dL 3.5-5.7 [facility] Alkaline phosphatase [Enzyma tic activity/volume] in Serum or PlasmaOrdered By: Adilene Weinberg on 01-02-2025 ALP [Catalytic activity/Vol] Alkaline phosphatase [Enzymatic activity/volume] in Serum or Plasma 34-104 [facility] ALP [Catalytic activity/Vol] 62 U/L Normal 34-104 [facility] Comment on above: Order Comment: STAT FOR CT BUN/CREAT Performed By: #### C MP, LDH ####[facility] [id number] Aspartate aminotransferase [ Enzymatic activity/volume] in Serum or PlasmaOrdered By: Adilene Weinberg on 01-02-2025 AST [Catalytic activity/Vol] Aspartate aminotransferase [Enzymatic activity/volume] in Serum or Plasma 13-39 [facility] AST [Catalytic activity/Vol] 20 U/L Normal -39 [facility] Comment on above: Order Comment: STAT FOR CT BUN/CREAT Performed By: #### C MP, LDH ####[facility] [id number] Basophils Auto (Bld) [#/Vol] Ordered By: Adilene Weinberg on 01-02-2025 Basophils (Bld) [#/Vol] Automated basoph il count 0.0-0.2 [facility] Basophils [#/volume] in Bloo d by Automated countOrdered By: Adilene Weinberg on 01-02-2025 Basophils (Bld) [#/Vol] 0.0 10*3/uL Normal 0.0-0.2 [facility] Comment on above: Result Comment: PERF ORMED BY: [facility] [address] [facility] [place] [address] PATHOLOGIST [employer] CLERK LUDWIG URBINA M.D. Performed By: #### C BC #### [facility] [address] [place] [address] Basophils/100 WBC Auto (Bld) Ordered By: Adilene Weinberg on 01-02-2025 Basophils/100 WBC (Bld) Automated basophil % . [facility] Basophils/100 leukocytes in Blood by Automated countOrdered By: Adilene Weinberg on 01-02-2025 Basophils/100 WBC (Bld) 0.7 % Normal . [facility] Comment on above: Performed By: #### C BC #### [facility] [address] Bilirubin.total [Mass/volume ] in Serum or PlasmaOrdered By: Adilene Weinberg on 01-02-2025 Bilirubin [Mass/Vol] Bilirubin.total [Mass/volume] in Serum or Plasma 0.3-1.0 [facility] Bilirubin [Mass/Vol] 1.0 mg/dL Normal 0.3-1.0 [facility] Comment on above: Order Comment: STAT FOR CT BUN/CREAT Performed By: #### C MP, LDH ####[facility] [id number] CBC W Auto Differential pane l (Bld)on 01-02-2025 Basophils (Bld) [#/Vol] 0 10*3/uL 0.0 - 0.2 10*3/uL [facility] Basophils/100 WBC Manual cnt (Syn fld) 0.7 % . [facility] Eosinophils (Bld) [#/Vol] 0.1 10*3/uL 0.0 - 0.45 10*3/uL [facility] Eosinophils/100 WBC Manual cnt (Syn fld) 0.9 % . [facility] Erythrocyte distribution width (RBC) [Ratio] 14.2 % 12.0 - 14.8 % [facility] Hematocrit (Bld) [Volume fraction] 28.6 % Low 38.8 - 50.0 % [facility] Hemoglobin (Bld) [Mass/Vol] 9.8 g/dL Low 13.0 - 17.0 g/dL [facility] Interpretation and review of laboratory results Abnormal [facility] Lymphocytes (Bld) [#/Vol] 0.9 10*3/uL Low 1.00 - 4.8 10*3/uL [facility] Lymphocytes/100 WBC Manual cnt (Syn fld) 14.5 % . [facility] MCH (RBC) [Entitic mass] 32.2 pg 27.5 - 35.2 pg [facility] MCHC (RBC) [Mass/Vol] 34.1 g/dL 32.5 - 35.6 g/dL [facility] MCV (RBC) [Entitic vol] 94.3 fL 83.5 [...] pelvis w conon CT abdomen pelvis w [facility] [place] [address] CT Scan Report Signed Patient: Sebastian Hannon MR#: [id number] 0 : 1935 Acct:[id number] Age/Sex: 89 / M ADM Date: 01/02/25 [facility]: [facility]: [facility]: Adilene Weinberg MD Copies to: Adilene Weinberg MD Ordering Provider: Adilene Weinberg MD Date of Service: 01/02/25 CT/CT chest w con: 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) CT/CT abdomen pelvis w con: C43.4 - [...] 01/02/251130 Signed By: 01/02/25 1147 Normal [facility] CT head/brain wo/w conon CT head/brain wo/w con [facility] [place] [address] CT Scan Report Signed with Addenda Patient: Sebastian Hannon MR#: [id number] 0 : 1935 Acct:[id number] Age/Sex: 89 / M ADM Date: 01/02/25 [...] Hafsa Keen M.D.01/02/2025 11:19 AM Dictation Location: [place] [address] Transcribed By: [facility] 01/02/25 1119 Dictated By: Hafsa Keen MD 01/02/25 1115 Signed By: 01/02/25 1119 Normal [facility] CT soft tissue neck w conon 01-02-2025 CT soft tissue neck w con [facility] [place] [address] [place] [address] CT Scan Report Signed Patient: Sebastian Hannon MR#: [id number] 0 : 1935 Acct:[id number] Age/Sex: 89 / M ADM Date: 01/02/25 Loc: XT Room: Type: [facility] Attending Dr: [...] Hafsa Keen M.D.01/02/2025 11:28 AM Dictation Location: [place] [address] Transcribed By: PHYLLIS 01/02/25 1128 Dictated By: Hafsa Keen MD 01/02/25 1119 Signed By: 01/02/25 1128 Normal [facility] Calcium [Mass/volume] in Ser um or PlasmaOrdered By: Adilene Weinberg on 01-02-2025 Calcium [Mass/Vol] Calcium [Mass/volume ] in Serum or Plasma 8.6-10.3 [facility] Calcium [Mass/Vol] 9.7 mg/dL Normal 8.6-10.3 [facility] Comment on above: Order Comment: STAT FOR CT BUN/CREAT Performed By: #### C MP, LDH ####[facility] [place] [id number] [facility] Carbon dioxide, total [Moles /volume] in Serum or PlasmaOrdered By: Adilene Weinberg on 01-02-2025 CO2 [Moles/Vol] Carbon dioxide, tota l [Moles/volume] in Serum or Plasma 21.0-31.0 [facility] CO2 [Moles/Vol] 29.8 mmol/L Normal 21.0-31.0 [facility] Comment on above: Order Comment: STAT FOR CT BUN/CREAT Performed By: #### C MP, LDH ####[facility] [place] [address] [facility] Chloride [Moles/volume] in S boby or PlasmaOrdered By: Adilene Weinberg on 01-02-2025 Chloride [Moles/Vol] Chloride [Moles/volume] in Serum or Plasma 98-107 [facility] Chloride [Moles/Vol] 102 mmol/L Normal 98-107 [facility] Comment on above: Order Comment: STAT FOR CT BUN/CREAT Performed By: #### C MP, LDH ####[place] [id number] [address] Complete Blood Count Auto Di ffon 01-02-2025 Mean Corpuscular HGB Conc 34.1 g/dL Normal 32.5-35.6 [facility] Comment on above: Performed By: #### C BC #### [facility] [address] NRBC% 0.1 /100{WBC} Normal 0-0.5 [facility] Comment on above: Performed By: #### C BC #### [facility] [address] Comprehensive Metabolic Pane huan 01-02-2025 Albumin [Mass/Vol] 4.5 g/dL Normal 3.5-5.7 [facility] Comment on above: Order Comment: STAT FOR CT BUN/CREAT Performed By: #### C MP, LDH ####[place] [id number] [address] Creatinine Clr Calc Pharmacy 40.40 Normal [facility] Comment on above: Order Comment: STAT FOR CT BUN/CREAT Performed By: #### C MP, LDH ####[place] [id number] [address] Estimated GFR 51.733 mL/Min Normal [facility] Comment on above: Order Comment: STAT FOR CT BUN/CREAT Performed By: #### C MP, LDH ####[place] [id number] Comprehensive metabolic pane huan 01-02-2025 Albumin [Mass/Vol] 4.5 g/dL 3.5 - 5.7 g/dL [facility] Albumin/Globulin [Mass ratio] 2 {ratio} [facility] ALP [Catalytic activity/Vol] 62 U/L 34 - 104 U/L [facility] ALT [Catalytic activity/Vol] 27 U/L 7 - 52 U/L [facility] Anion gap [Moles/Vol] 10.2 mmol/L 6.0 - 15.0 meq/L [facility] AST [Catalytic activity/Vol] 20 U/L 13 - 39 U/L [facility] Bilirubin [Mass/Vol] 1 mg/dL 0.3 - 1 .0 mg/dL [facility] Calcium [Mass/Vol] 9.7 mg/dL 8.6 - 10. 3 mg/dL [facility] Chloride [Moles/Vol] 102 mmol/L 98 - 10 7 mmol/L [facility] CO2 [Moles/Vol] 29.8 mmol/L 21.0 - 31.0 mmol/L [facility] Creatinine (U) [Mass/Vol] 1.33 mg/dL High 0.70 - 1.30 mg/dL [facility] CREATININE CLR CALC PHARMACY 40.4 [facility] GFR/1.73 sq M.predicted MDRD (S/P/Bld) [Vol rate/Area] 51.733 mL/min/{1.73_m2} mL/Min [facility] Globulin (S) [Mass/Vol] 2.3 g/dL N [facility] Glucose [Mass/Vol] 90 mg/dL 70 - 100 mg/dL [facility] Comment on above: Random Glucose Refer ence Range is dependent on time and content of last meal. Glucose of more than 200 mg/dL in a nonstressed, ambulatory subject supports the diagnosis of Diabetes Mellitus. ADA recommended reference range Interpretation and review of laboratory results Abnormal [facility] Potassium [Moles/Vol] 4 mmol/L 3.5 - 5.1 mmol/L [facility] Protein [Mass/Vol] 6.8 g/dL 6.4 - 8.9 g/dL [facility] Sodium [Moles/Vol] 138 mmol/L 136 - 145 mmol/L [facility] Urea nitrogen [Mass/Vol] 29 mg/dL High 7 - 25 mg/dL [facility] Creatinine [Mass/volume] in Serum or PlasmaOrdered By: Adilene Weinberg on 01-02-2025 Creatinine [Mass/Vol] Creatinine [Mass/volume] in Serum or Plasma High 0.70-1.30 [facility] Creatinine [Mass/Vol] 1.33 mg/dL High 0.70-1.30 [facility] Comment on above: Order Comment: STAT FOR CT BUN/CREAT Performed By: #### C MP, LDH ####[facility] [id number] Eosinophils Auto (Bld) [#/Vo l]Ordered By: Adilene Weinberg on 01-02-2025 Eosinophils (Bld) [#/Vol] Automated eosinophil count 0.0-0.45 [facility] Eosinophils [#/volume] in Bl ood by Automated countOrdered By: Adilene Weinberg on 01-02-2025 Eosinophils (Bld) [#/Vol] 0.1 10*3/uL Normal 0.0-0.45 [facility] Comment on above: Performed By: #### C BC #### [facility] [address] Eosinophils/100 WBC Auto (Bl d)Ordered By: Adilene Weinberg on 01-02-2025 Eosinophils/100 WBC (Bld) Automated eosinophil % . [facility] Eosinophils/100 leukocytes i n Blood by Automated countOrdered By: Adilene Weinberg on 01-02-2025 Eosinophils/100 WBC (Bld) 0.9 % Normal . [facility] Comment on above: Performed By: #### C BC #### [facility] [address] Erythrocyte distribution wid th Auto (RBC) [Ratio]Ordered By: Adilene Weinberg on 01-02-2025 Erythrocyte distribution width (RBC) [Ratio] Erythrocyte distribution width [Ratio] by Automated count 12.0-14.8 [facility] Erythrocyte distribution wid th [Ratio] by Automated countOrdered By: Adilene Weinberg on 01-02-2025 Erythrocyte distribution width (RBC) [Ratio] 14.2 % Normal 12.0-14.8 [facility] Comment on above: Performed By: #### C BC #### [facility] [address] Erythrocytes [#/volume] in B lood by Automated countOrdered By: Adilene Weinberg on 01-02-2025 RBC (Bld) [#/Vol] 3.03 10*6/uL Low 3.90-5.60 [facility] Comment on above: Performed By: #### C BC #### [facility] [address] Globulin Calc (S) [Mass/Vol] Ordered By: Adilene Weinberg on 01-02-2025 Globulin (S) [Mass/Vol] Serum globulin measurement by calculation (mass/volume) [facility] Glucose [Mass/volume] in Ser um or PlasmaOrdered By: Adilene Weinberg on 01-02-2025 Glucose [Mass/Vol] Glucose [Mass/volume ] in Serum or Plasma 70-100 [facility] Comment on above: ADA recommended refe rence rangeRandom Glucose Reference Range is dependent on time and content of last meal. Glucose of more than 200 mg/dL in a nonstressed, ambulatory subject supports the diagnosis of Diabetes Mellitus. Glucose [Mass/Vol] 90 mg/dL Normal 70-100 [facility] Comment on above: ADA recommended refe rence rangeRandom Glucose Reference Range is dependent on time and content of last meal. Glucose of more than 200 mg/dL in a nonstressed, ambulatory subject supports the diagnosis of Diabetes Mellitus. Order Comment: STAT FOR CT BUN/CREAT Result Comment: [place] om Glucose Reference Range is dependent on time and content of last meal. Glucose of more than 200 mg/dL in a nonstressed, ambulatory subject supports the diagnosis of Diabetes Mellitus. ADA recommended reference range Performed By: #### C MP, LDH ####[facility] [id number] [address] Hematocrit Auto (Bld) [Volum e fraction]Ordered By: Adilene Weinberg on 01-02-2025 Hematocrit (Bld) [Volume fraction] Hematocrit [Volume Fraction] of Blood by Automated count Low 38.8-50.0 [facility] Hematocrit [Volume Fraction] of Blood by Automated countOrdered By: Adilene Weinberg on 01-02-2025 Hematocrit (Bld) [Volume fraction] 28.6 % Low 38.8-50.0 [facility] Comment on above: Performed By: #### C BC #### [facility] [address] Hemoglobin [Mass/volume] in BloodOrdered By: Adilene Weinberg on 01-02-2025 Hemoglobin (Bld) [Mass/Vol] Hemoglobin [Mass/volume] in Blood Low 13.0-17.0 [facility] Hemoglobin (Bld) [Mass/Vol] 9.8 g/dL Low 13.0-17.0 [facility] Comment on above: Performed By: #### C BC #### [facility] [address] LDH Lactate Dehydrogenaseon 01-02-2025 LDH Lactate Dehydrogenase 241 U/L Normal 140-271 [facility] Comment on above: Order Comment: STAT FOR CT BUN/CREAT Result Comment: PERF ORMED BY: [place] [address] PATHOLOGIST F[employer]EL OIL CLERK LUDWIG URBINA M.D. Performed By: #### C MP, LDH ####[facility] [id number] [address] LDH Lactate to pyruvate reac tion [Catalytic activity/Vol]on 01-02-2025 LDH LACTATE DEHYDROGENASE 241 U/L 140 - 271 U/L [facility] Lactate dehydrogenase [Enzym atic activity/volume] in Serum or Plasma by Lactate to pyOrdered By: Adilene Weinberg on 01-02-2025 LDH Lactate to pyruvate reaction [Catalytic activity/Vol] Lactate dehydrogenase [Enzymatic activity/volume] in Serum or Plasma by Lactate to py 140-271 [facility] LDH Lactate to pyruvate reaction [Catalytic activity/Vol] 241 U/L 140-271 [facility] Leukocytes [#/volume] correc bert for nucleated erythrocytes in Blood by Automated counOrdered By: Adilene Weinberg on 01-02-2025 WBC corrected for nucl RBC Auto (Bld) [#/Vol] Leukocytes [#/volume] corrected for nucleated erythrocytes in Blood by Automated coun 4.1-10.5 [facility] WBC corrected for nucl RBC Auto (Bld) [#/Vol] 5.9 10*3/uL 4.1-10.5 [facility] Leukocytes [#/volume] in Blo od by Automated countOrdered By: Adilene Weinberg on 01-02-2025 WBC (Bld) [#/Vol] 5.9 10*3/uL Normal 4.1-10.5 [facility] Comment on above: Performed By: #### C BC #### [address] Lymphocytes Auto (Bld) [#/Vo l]Ordered By: Adilene Weinberg on 01-02-2025 Lymphocytes (Bld) [#/Vol] Lymphocytes [#/volume] in Blood by Automated count Low 1.00-4.8 [facility] Lymphocytes [#/volume] in Bl ood by Automated countOrdered By: Adilene Weinberg on 01-02-2025 Lymphocytes (Bld) [#/Vol] 0.9 10*3/uL Low 1.00-4.8 [facility] Comment on above: Performed By: #### C BC #### [address] Lymphocytes/100 WBC Auto (Bl d)Ordered By: Adilene Weinberg on 01-02-2025 Lymphocytes/100 WBC (Bld) Lymphocytes/100 leukocytes in Blood by Automated count . [facility] Lymphocytes/100 leukocytes i n Blood by Automated countOrdered By: Adilene Weinberg on 01-02-2025 Lymphocytes/100 WBC (Bld) 14.5 % Normal . [facility] Comment on above: Performed By: #### C BC #### [address] MCH Auto (RBC) [Entitic mass ]Ordered By: Adilene Weinberg on 01-02-2025 MCH (RBC) [Entitic mass] MCH [Entitic mass] by Automated count 27.5-35.2 [facility] MCH [Entitic mass] by Automa bert countOrdered By: Adilene Weinberg on 01-02-2025 MCH (RBC) [Entitic mass] 32.2 pg Normal 27.5-35.2 [facility] Comment on above: Performed By: #### C BC #### [address] MCHC Auto (RBC) [Mass/Vol]Or dered By: Adilene Weinberg on 01-02-2025 MCHC (RBC) [Mass/Vol] MCHC [Mass/volume] by Automated count 32.5-35.6 [facility] MCHC (RBC) [Mass/Vol] 34.1 g/dL 32.5-35.6 [facility] MCV Auto (RBC) [Entitic vol] Ordered By: Adilene Weinberg on 01-02-2025 MCV (RBC) [Entitic vol] MCV [Entitic vol ume] by Automated count 83.5-101 [facility] MCV [Entitic volume] by Auto mated countOrdered By: Adilene Weinberg on 01-02-2025 MCV (RBC) [Entitic vol] 94.3 fL Normal 83.5-101 [facility] Comment on above: Performed By: #### C BC #### [facility] [address] [place] [address] Monocytes Auto (Bld) [#/Vol] Ordered By: Adilene Weinberg on 01-02-2025 Monocytes (Bld) [#/Vol] Automated blood monocyte count 0.0-0.8 [facility] Monocytes [#/volume] in Bloo d by Automated countOrdered By: Adilene Weinberg on 01-02-2025 Monocytes (Bld) [#/Vol] 0.6 10*3/uL Normal 0.0-0.8 [facility] Comment on above: Performed By: #### C BC #### [facility] [address] [place] [address] [place] Monocytes/100 WBC Auto (Bld) Ordered By: Adilene Weinberg on 01-02-2025 Monocytes/100 WBC (Bld) Automated monocyte % . [facility] Monocytes/100 leukocytes in Blood by Automated countOrdered By: Adilene Weinberg on 01-02-2025 Monocytes/100 WBC (Bld) 10.2 % Normal . [facility] Comment on above: Performed By: #### C BC #### [facility] [address] [place] [address] Neutrophils Auto (Bld) [#/Vo l]Ordered By: Adilene Weinberg on 01-02-2025 Neutrophils (Bld) [#/Vol] Neutrophils [#/volume] in Blood by Automated count 1.8-7.7 [facility] Neutrophils [#/volume] in Bl ood by Automated countOrdered By: Adilene Weinberg on 01-02-2025 Neutrophils (Bld) [#/Vol] 4.4 10*3/uL Normal 1.8-7.7 [facility] Comment on above: Performed By: #### C BC #### [facility] [address] [place] [address] [place] Neutrophils/100 WBC Auto (Bl d)Ordered By: Adilene Weinberg on 01-02-2025 Neutrophils/100 WBC (Bld) Automated neutrophil % . [facility] Neutrophils/100 leukocytes i n Blood by Automated countOrdered By: Adilene Weinberg on 01-02-2025 Neutrophils/100 WBC (Bld) 73.7 % Normal . [facility] Comment on above: Performed By: #### C BC #### [facility] [address] No Panel Informationon 01-[address] BUN/CREAT [facility] No Panel InformationOrdered By: Adilene Weinberg on 01-02-2025 Estimated GFR (CKD-EPI) 51.733 mL/Min [facility] Creatinine Clearance (Chem 40.40 [facility] Nucleated erythrocytes [Pres ence] in Blood by Automated countOrdered By: Adilene Weinberg on 01-02-2025 Nucleated RBC Auto Ql (Bld) Nucleated erythrocytes [Presence] in Blood by Automated count 0-0.5 [facility] Nucleated RBC Auto Ql (Bld) 0.1 /100{WBC} 0-0.5 [facility] Platelet mean volume Auto (B ld) [Entitic vol]Ordered By: Adilene Weinberg on 01-02-2025 Platelet mean volume (Bld) [Entitic vol] Platelet mean volume [Entitic volume] in Blood by Automated count 6.6-10.1 [facility] Platelet mean volume [Entiti c volume] in Blood by Automated countOrdered By: Adilene Weinberg on 01-02-2025 Platelet mean volume (Bld) [Entitic vol] 7.9 fL Normal 6.6-10.1 [facility] Comment on above: Performed By: #### C BC #### [facility] [address] Platelets Auto (Bld) [#/Vol] Ordered By: Adilene Weinberg on 01-02-2025 Platelets (Bld) [#/Vol] Platelets [#/vol ume] in Blood by Automated count Low 150-450 [facility] Platelets [#/volume] in Bloo d by Automated countOrdered By: Adilene Weinberg on 01-02-2025 Platelets (Bld) [#/Vol] 146 10*3/uL Low 150-450 [facility] Comment on above: Performed By: #### C BC #### [facility] [address] Potassium [Moles/volume] in Serum or PlasmaOrdered By: Adilene Weinberg on 01-02-2025 Potassium [Moles/Vol] Potassium [Moles/volume] in Serum or Plasma 3.5-5.1 [facility] Potassium [Moles/Vol] 4.0 mmol/L Normal 3.5-5.1 [facility] Comment on above: Order Comment: STAT FOR CT BUN/CREAT Performed By: #### C MP, LDH ####[facility] [id number] Protein [Mass/volume] in Ser um or PlasmaOrdered By: Adilene Weinberg on 01-02-2025 Protein [Mass/Vol] Protein [Mass/volume ] in Serum or Plasma 6.4-8.9 [facility] Protein [Mass/Vol] 6.8 g/dL Normal 6.4-8.9 [facility] Comment on above: Order Comment: STAT FOR CT BUN/CREAT Performed By: #### C MP, LDH ####[facility] [id number] RBC Auto (Bld) [#/Vol]Ordere d By: Adilene Weinberg on 01-02-2025 RBC (Bld) [#/Vol] Erythrocytes [#/volume] in Blood by Automated count Low 3.90-5.60 [facility] Serum globulin measurement b y calculation (mass/volume)Ordered By: Adilene Weinberg on 01-02-2025 Globulin (S) [Mass/Vol] 2.3 g/dL Normal [facility] Comment on above: Order Comment: STAT FOR CT BUN/CREAT Performed By: #### C MP, LDH ####[address] Serum or plasma albumin/glob ulin mass ratioOrdered By: Adilene Weinberg on 01-02-2025 Albumin/Globulin [Mass ratio] Serum or plasma albumin/globulin mass ratio [facility] Albumin/Globulin [Mass ratio] 2.0 {ratio} Normal [facility] Comment on above: Order Comment: STAT FOR CT BUN/CREAT Performed By: #### C MP, LDH ####[address] Serum or plasma anion gap de terminationOrdered By: Adilene Weinberg on 01-02-2025 Anion gap [Moles/Vol] Serum or plasma an ion gap determination 6.0-15.0 [facility] Anion gap [Moles/Vol] 10.2 mmol/L Normal 6.0-15.0 [facility] Comment on above: Order Comment: STAT FOR CT BUN/CREAT Performed By: #### C MP, LDH ####[address] Sodium [Moles/volume] in Ser um or PlasmaOrdered By: Adilene Weinberg on 01-02-2025 Sodium [Moles/Vol] Sodium [Moles/volume ] in Serum or Plasma 136-145 [facility] Sodium [Moles/Vol] 138 mmol/L Normal 136-145 [facility] Comment on above: Order Comment: STAT FOR CT BUN/CREAT Performed By: #### C MP, LDH ####[address] Urea nitrogen [Mass/volume] in Serum or PlasmaOrdered By: Adilene Weinberg on 01-02-2025 Urea nitrogen [Mass/Vol] Urea nitrogen [Mass/volume] in Serum or Plasma High 7-25 [facility] Urea nitrogen [Mass/Vol] 29 mg/dL High 7-25 [facility] Comment on above: Order Comment: STAT FOR CT BUN/CREAT Performed By: #### C MP, LDH ####[facility] [id number] [place] [address] [facility] WBC Auto (Bld) [#/Vol]Ordere d By: Adilene Weinberg on 01-02-2025 WBC (Bld) [#/Vol] Leukocytes [#/volume ] in Blood by Automated count 4.1-10.5 [facility] Cholesterol in LDL Calc [Mas s/Vol]on 12-15-2024 Cholesterol in LDL [Mass/Vol] Cholesterol in LDL [Mass/volume] in Serum or Plasma by calculation [facility] Comment on above: <100 mg/dl [id number] 0-129 mg/dl NEAR OR ABOVE [id number] mg/dl BORDERLINE [id number] mg/dl HIGH>190 mg/dl VERY HIGH Cholesterol in VLDL Calc [Ma ss/Vol]on 12-15-2024 Cholesterol in VLDL [Mass/Vol] Cholesterol in VLDL [Mass/volume] in Serum or Plasma by calculation [facility] Estimated glomerular filtrat ion rate (GFR) non- Americanon 12-15-2024 GFR/1.73 sq M.predicted among non-blacks MDRD (S/P/Bld) [Vol rate/Area] Estimated glomerular filtration rate (GFR) non- Low >=60 mL/min/1.73 m 2 [facility] Globulin Calc (S) [Mass/Vol] on 12-15-2024 Globulin (S) [Mass/Vol] Serum globulin measurement by calculation (mass/volume) [facility] Laboratory - Chemistry and C hemistry - challengeon 12-15-2024 Albumin [Mass/Vol] 3.7 g/dL 3.4-5.0 [facility] ALP [Catalytic activity/Vol] 85 U/L 46-116 [facility] ALT [Catalytic activity/Vol] 56 U/L 16-63 [facility] AST [Catalytic activity/Vol] 26 U/L 15-37 [facility] Bilirubin [Mass/Vol] 0.5 mg/dL 0.2-1.0 [facility] Calcium [Mass/Vol] 9.0 mg/dL 8.5-10.1 [facility] Chloride [Moles/Vol] 104 mmol/L 98-107 [facility] Cholesterol [Mass/Vol] 107 mg/dL <=200 [facility] Cholesterol in HDL [Mass/Vol] 66 mg/dL High 40-60 [facility] Comment on above: > or =60 mg/dl - LOW CARDIOVASCULAR RISK<40 mg/dl - HIGH CARDIOVASCULAR RISK CO2 [Moles/Vol] 28.5 mmol/L 21.0-32.0 [facility] Creatinine [Mass/Vol] 1.37 mg/dL High 0.70-1.30 [facility] GFR/1.73 sq M.predicted MDRD (S/P/Bld) [Vol rate/Area] 60 mL/min/{1.73_m2} >=60 mL/min/1.73 m 2 [facility] Glucose [Mass/Vol] 94 mg/dL 74-106 [facility] Natriuretic peptide B (Bld) [Mass/Vol] 1793.0 pg/mL <=1800.0 [facility] Potassium [Moles/Vol] 4.4 mmol/L 3.5-5.1 [facility] Protein [Mass/Vol] 6.6 g/dL 6.4-8.2 [facility] Sodium [Moles/Vol] 140 mmol/L 136-145 [facility] Triglyceride [Mass/Vol] 31 mg/dL <=150 [facility] Urea nitrogen [Mass/Vol] 28.0 mg/dL High 7.0-18.0 [facility] Urea nitrogen/Creatinine [Mass ratio] 20.4 mg/mg [facility] Serum or plasma albumin/glob ulin mass ratioon 12-15-2024 Albumin/Globulin [Mass ratio] Serum or plasma albumin/globulin mass ratio [facility] Serum or plasma anion gap de terminationon 12-15-2024 Anion gap [Moles/Vol] Serum or plasma an ion gap determination [facility] Serum or plasma total choles terol/high density lipoprotein (HDL) cholesterol mass ben 12-15-2024 Cholesterol.total/Elizabeth sterol in HDL [Mass ratio] Serum or plasma total cholesterol/high density lipoprotein (HDL) cholesterol mass rat [facility] Comment on above: 3.3 - 4.4 LOW RISK4. 4 - 7.1 AVERAGE RISK7.1 - 11.0 MODERATE RISK>11.0 HIGH RISK 37on 11-30-2024 37 *We will try you on an alternating dose of lasix, 40mg and then 20mg every other day. *Have labs done in 2 weeks to check your kidney function *[facility] will call you to schedule a heart ultrasound Normal [facility] Office Visiton 11-30-2024 Follow-up visit [id number] Sebastian Hannon 1935 M Date Provider Department Center 11/30/2024 KAYLEY CROSS [facility] Family History Problem Relation Age of Onset Other Mother Coronary artery disease Father Family Status - Relation Status Age at Mother Father Level of Service:58382 DC OFFICE/OUTPATIENT ESTABLISHED MOD MDM 30 MIN Reason for Visit and Comments: Congestive Heart Failure [127] Atrial Fibrillation [80] Normal [facility] Alanine aminotransferase [En zymatic activity/volume] in Serum or PlasmaOrdered By: Michele Arteaga on 10-30-2024 ALT [Catalytic activity/Vol] Alanine aminotransferase [Enzymatic activity/volume] in Serum or Plasma [facility] Albumin [Mass/volume] in Ser um or Plasma by Bromocresol green (BCG) dye binding methoOrdered By: Michele Arteaga on 10-30-2024 Albumin BCG dye [Mass/Vol] Albumin [Mass/volume] in Serum or Plasma by Bromocresol green (BCG) dye binding metho 3.5-5.7 [facility] Alkaline phosphatase [Enzyma tic activity/volume] in Serum or PlasmaOrdered By: Michele Arteaga on 10-30-2024 ALP [Catalytic activity/Vol] Alkaline phosphatase [Enzymatic activity/volume] in Serum or Plasma 34-104 [facility] Aspartate aminotransferase [ Enzymatic activity/volume] in Serum or PlasmaOrdered By: Michele Arteaga on 10-30-2024 AST [Catalytic activity/Vol] Aspartate aminotransferase [Enzymatic activity/volume] in Serum or Plasma 13-39 [facility] Basophils Auto (Bld) [#/Vol] Ordered By: Michele Arteaga on 10-30-2024 Basophils (Bld) [#/Vol] Automated basoph il count 0.0-0.2 [facility] Basophils/100 WBC Auto (Bld) Ordered By: Michele Arteaga on 10-30-2024 Basophils/100 WBC (Bld) Automated basophil % . [facility] Bilirubin.direct [Mass/volum e] in Serum or PlasmaOrdered By: Michele Arteaga on 10-30-2024 Bilirubin.direct [Mass/Vol] Bilirubin.direct [Mass/volume] in Serum or Plasma 0.03-0.18 [facility] Bilirubin.total [Mass/volume ] in Serum or PlasmaOrdered By: Michele Arteaga on 10-30-2024 Bilirubin [Mass/Vol] Bilirubin.total [Mass/volume] in Serum or Plasma 0.3-1.0 [facility] Complete Blood Count Auto Di ffon 10-30-2024 Basophils (Bld) [#/Vol] 0.0 10*3/uL Normal 0.0-0.2 [facility] Comment on above: Performed By: #### C REAT, CBC, HEPATIC, ESR ####[address] Basophils/100 WBC (Bld) 1.1 % Normal . [facility] Comment on above: Performed By: #### C REAT, CBC, HEPATIC, ESR ####[address] Eosinophils (Bld) [#/Vol] 0.1 10*3/uL Normal 0.0-0.45 [facility] Comment on above: Performed By: #### C REAT, CBC, HEPATIC, ESR ####[address] Eosinophils/100 WBC (Bld) 1.3 % Normal . [facility] Comment on above: Performed By: #### C REAT, CBC, HEPATIC, ESR ####[address] Erythrocyte distribution width (RBC) [Ratio] 14.1 % Normal 12.0-14.8 [facility] Comment on above: Performed By: #### C REAT, CBC, HEPATIC, ESR ####[address] Hematocrit (Bld) [Volume fraction] 27.3 % Low 38.8-50.0 [facility] Comment on above: Performed By: #### C REAT, CBC, HEPATIC, ESR ####[address] Hemoglobin (Bld) [Mass/Vol] 9.1 g/dL Low 13.0-17.0 [facility] Comment on above: Performed By: #### C REAT, CBC, HEPATIC, ESR ####[address] Lymphocytes (Bld) [#/Vol] 0.6 10*3/uL Low 1.00-4.8 [facility] Comment on above: Performed By: #### C REAT, CBC, HEPATIC, ESR ####[address] Lymphocytes/100 WBC (Bld) 12.6 % Normal . [facility] Comment on above: Performed By: #### C REAT, CBC, HEPATIC, ESR ####[address] MCH (RBC) [Entitic mass] 32.1 pg Normal 27.5-35.2 [facility] Comment on above: Performed By: #### C REAT, CBC, HEPATIC, ESR ####[address] MCV (RBC) [Entitic vol] 95.9 fL Normal 83.5-101 [facility] Comment on above: Performed By: #### C REAT, CBC, HEPATIC, ESR ####[address] Mean Corpuscular HGB Conc 33.4 g/dL Normal 32.5-35.6 [facility] Comment on above: Performed By: #### C REAT, CBC, HEPATIC, ESR ####[address] Monocytes (Bld) [#/Vol] 0.5 10*3/uL Normal 0.0-0.8 [facility] Comment on above: Performed By: #### C REAT, CBC, HEPATIC, ESR ####[address] Monocytes/100 WBC (Bld) 11.5 % Normal . [facility] Comment on above: Performed By: #### C REAT, CBC, HEPATIC, ESR ####[address] Neutrophils (Bld) [#/Vol] 3.4 10*3/uL Normal 1.8-7.7 [facility] Comment on above: Performed By: #### C REAT, CBC, HEPATIC, ESR ####[address] Neutrophils/100 WBC (Bld) 73.5 % Normal . [facility] Comment on above: Performed By: #### C REAT, CBC, HEPATIC, ESR ####[address] NRBC% 0.1 /100{WBC} Normal 0-0.5 [facility] Comment on above: Performed By: #### C REAT, CBC, HEPATIC, ESR ####[address] Platelet mean volume (Bld) [Entitic vol] 8.6 fL Normal 6.6-10.1 [facility] Comment on above: Performed By: #### C REAT, CBC, HEPATIC, ESR ####[address] Platelets (Bld) [#/Vol] 129 10*3/uL Low 150-450 [facility] Comment on above: Performed By: #### C REAT, CBC, HEPATIC, ESR ####[address] RBC (Bld) [#/Vol] 2.84 10*6/uL Low 3.90-5.60 [facility] Comment on above: Performed By: #### C REAT, CBC, HEPATIC, ESR ####[place] [id number] WBC (Bld) [#/Vol] 4.7 10*3/uL Normal 4.1-10.5 [facility] Comment on above: Performed By: #### C REAT, CBC, HEPATIC, ESR ####[place] [id number] [place] [id number] [facility] Creatinineon 10-30-2024 Creatinine [Mass/Vol] 1.21 mg/dL Normal 0.70-1.30 [facility] Comment on above: Performed By: #### C REAT, CBC, HEPATIC, ESR ####[place] [id number] Estimated GFR 57.950 mL/Min Normal [facility] [facility] Comment on above: Result Comment: PERF ORMED BY: [facility] [address] [place] [address] PATHOLOGIST FUEL OIL CLERK LUDWIG URBINA M.D. Performed By: #### C REAT, CBC, HEPATIC, ESR ####[address] Creatinine [Mass/volume] in Serum or PlasmaOrdered By: Michele Arteaga on 10-30-2024 Creatinine [Mass/Vol] Creatinine [Mass/volume] in Serum or Plasma 0.70-1.30 [facility] Eosinophils Auto (Bld) [#/Vo l]Ordered By: Michele Arteaga on 10-30-2024 Eosinophils (Bld) [#/Vol] Automated eosinophil count 0.0-0.45 [facility] Eosinophils/100 WBC Auto (Bl d)Ordered By: Michele Arteaga on 10-30-2024 Eosinophils/100 WBC (Bld) Automated eosinophil % . [facility] Erythrocyte Sedimentation Ra shayy 10-30-2024 ESR (Bld) [Velocity] 18 mm/h Normal 0-19 [facility] Comment on above: Result Comment: PERF ORMED BY: [facility] [address] [place] [address] PATHOLOGIST FUEL OIL CLERK LUDWIG URBINA M.D. Performed By: #### C REAT, CBC, HEPATIC, ESR ####[place] [id number] [place] [id number] [facility] Erythrocyte distribution wid th Auto (RBC) [Ratio]Ordered By: Michele Arteaga on 10-30-2024 Erythrocyte distribution width (RBC) [Ratio] Erythrocyte distribution width [Ratio] by Automated count 12.0-14.8 [facility] Erythrocyte sedimentation ra te by Photometric methodOrdered By: Michele Arteaga on 10-30-2024 ESR Photometric method (Bld) [Velocity] Erythrocyte sedimentation rate by Photometric method 0-19 [facility] Globulin Calc (S) [Mass/Vol] Ordered By: Michele Arteaga on 10-30-2024 Globulin (S) [Mass/Vol] Serum globulin measurement by calculation (mass/volume) [facility] Hematocrit Auto (Bld) [Volum e fraction]Ordered By: Michele Arteaga on 10-30-2024 Hematocrit (Bld) [Volume fraction] Hematocrit [Volume Fraction] of Blood by Automated count Low 38.8-50.0 [facility] Hemoglobin [Mass/volume] in BloodOrdered By: Michele Arteaga on 10-30-2024 Hemoglobin (Bld) [Mass/Vol] Hemoglobin [Mass/volume] in Blood Low 13.0-17.0 [facility] Hepatic Panelon 10-30-2024 Albumin [Mass/Vol] 4.0 g/dL Normal 3.5-5.7 [facility] Comment on above: Performed By: #### C REAT, CBC, HEPATIC, ESR ####[place] [id number] Albumin/Globulin [Mass ratio] 2.1 {ratio} Normal [facility] Comment on above: Performed By: #### C REAT, CBC, HEPATIC, ESR ####[place] [id number] [place] [id number] [facility] ALP [Catalytic activity/Vol] 69 U/L Normal 34-104 [facility] Comment on above: Performed By: #### C REAT, CBC, HEPATIC, ESR ####[address] ALT [Catalytic activity/Vol] 22 U/L Normal 7-52 [facility] Comment on above: Performed By: #### C REAT, CBC, HEPATIC, ESR ####[address] AST [Catalytic activity/Vol] 20 U/L Normal 13-39 [facility] Comment on above: Performed By: #### C REAT, CBC, HEPATIC, ESR ####[address] Bilirubin [Mass/Vol] 0.6 mg/dL Normal 0.3-1.0 [facility] Comment on above: Performed By: #### C REAT, CBC, HEPATIC, ESR ####[address] Bilirubin,Indirect 0.5 mg/dL Normal [facility] Comment on above: Performed By: #### C REAT, CBC, HEPATIC, ESR ####[address] Bilirubin.indirect [Mass/Vol] 0.10 mg/dL Normal 0.03-0.18 [facility] Comment on above: Performed By: #### C REAT, CBC, HEPATIC, ESR ####[address] Globulin (S) [Mass/Vol] 1.9 g/dL Normal [facility] Comment on above: Performed By: #### C REAT, CBC, HEPATIC, ESR ####[address] Protein [Mass/Vol] 5.9 g/dL Low 6.4-8.9 [facility] Comment on above: Performed By: #### C REAT, CBC, HEPATIC, ESR ####[place] [id number] [place] [address] [facility] Leukocytes [#/volume] correc bert for nucleated erythrocytes in Blood by Automated counOrdered By: Michele Arteaga on 10-30-2024 WBC corrected for nucl RBC Auto (Bld) [#/Vol] Leukocytes [#/volume] corrected for nucleated erythrocytes in Blood by Automated coun 4.1-10.5 [facility] Lymphocytes Auto (Bld) [#/Vo l]Ordered By: Michele Arteaga on 10-30-2024 Lymphocytes (Bld) [#/Vol] Lymphocytes [#/volume] in Blood by Automated count Low 1.00-4.8 [facility] Lymphocytes/100 WBC Auto (Bl d)Ordered By: Michele Arteaga on 10-30-2024 Lymphocytes/100 WBC (Bld) Lymphocytes/100 leukocytes in Blood by Automated count . [facility] MCH Auto (RBC) [Entitic mass ]Ordered By: Michele Arteaga on 10-30-2024 MCH (RBC) [Entitic mass] MCH [Entitic mass] by Automated count 27.5-35.2 [facility] MCHC Auto (RBC) [Mass/Vol]Or dered By: Michele Arteaga on 10-30-2024 MCHC (RBC) [Mass/Vol] MCHC [Mass/volume] by Automated count 32.5-35.6 [facility] MCV Auto (RBC) [Entitic vol] Ordered By: Michele Arteaga on 10-30-2024 MCV (RBC) [Entitic vol] MCV [Entitic vol ume] by Automated count 83.5-101 [facility] Monocytes Auto (Bld) [#/Vol] Ordered By: Michele Arteaga on 10-30-2024 Monocytes (Bld) [#/Vol] Automated blood monocyte count 0.0-0.8 [facility] Monocytes/100 WBC Auto (Bld) Ordered By: Michele Arteaga on 10-30-2024 Monocytes/100 WBC (Bld) Automated monocyte % . [facility] Neutrophils Auto (Bld) [#/Vo l]Ordered By: Michele Arteaga on 10-30-2024 Neutrophils (Bld) [#/Vol] Neutrophils [#/volume] in Blood by Automated count 1.8-7.7 [facility] Neutrophils/100 WBC Auto (Bl d)Ordered By: Michele Arteaga on 10-30-2024 Neutrophils/100 WBC (Bld) Automated neutrophil % . [facility] No Panel InformationOrdered By: Michele Arteaga on 10-30-2024 Estimated GFR (CKD-EPI) 57.950 mL/Min [facility] Creatinine Clearance (Chem N/A [facility] Nucleated erythrocytes [Pres ence] in Blood by Automated countOrdered By: Michele Arteaga on 10-30-2024 Nucleated RBC Auto Ql (Bld) Nucleated erythrocytes [Presence] in Blood by Automated count 0-0.5 [facility] Platelet mean volume Auto (B ld) [Entitic vol]Ordered By: Michele Arteaga on 10-30-2024 Platelet mean volume (Bld) [Entitic vol] Platelet mean volume [Entitic volume] in Blood by Automated count 6.6-10.1 [facility] Platelets Auto (Bld) [#/Vol] Ordered By: Michele Arteaga on 10-30-2024 Platelets (Bld) [#/Vol] Platelets [#/vol ume] in Blood by Automated count Low 150-450 [facility] Protein [Mass/volume] in Ser um or PlasmaOrdered By: Michele Arteaga on 10-30-2024 Protein [Mass/Vol] Protein [Mass/volume ] in Serum or Plasma Low 6.4-8.9 [facility] RBC Auto (Bld) [#/Vol]Ordere d By: Michele Arteaga on 10-30-2024 RBC (Bld) [#/Vol] Erythrocytes [#/volume] in Blood by Automated count Low 3.90-5.60 [facility] Serum or plasma albumin/glob ulin mass ratioOrdered By: Michele Arteaga on 10-30-2024 Albumin/Globulin [Mass ratio] Serum or plasma albumin/globulin mass ratio [facility] Serum or plasma non-glucuron idated bilirubin measurement (mass/volume)Ordered By: Michele Arteaga on 10-30-2024 Bilirubin.indirect [Mass/Vol] Serum or plasma non-glucuronidated bilirubin measurement (mass/volume) [facility] WBC Auto (Bld) [#/Vol]Ordere d By: Michele Arteaga on 10-30-2024 WBC (Bld) [#/Vol] Leukocytes [#/volume ] in Blood by Automated count 4.1-10.5 [facility] Alanine aminotransferase [En zymatic activity/volume] in Serum or PlasmaOrdered By: Adilene Weinberg on 10-02-2024 ALT [Catalytic activity/Vol] Alanine aminotransferase [Enzymatic activity/volume] in Serum or Plasma 7-52 [facility] Albumin [Mass/volume] in Ser um or Plasma by Bromocresol green (BCG) dye binding methoOrdered By: Adilene Weinberg on 10-02-2024 Albumin BCG dye [Mass/Vol] Albumin [Mass/volume] in Serum or Plasma by Bromocresol green (BCG) dye binding metho 3.5-5.7 [facility] Alkaline phosphatase [Enzyma tic activity/volume] in Serum or PlasmaOrdered By: Adilene Weinberg on 10-02-2024 ALP [Catalytic activity/Vol] Alkaline phosphatase [Enzymatic activity/volume] in Serum or Plasma 34-104 [facility] Aspartate aminotransferase [ Enzymatic activity/volume] in Serum or PlasmaOrdered By: Adilene Weinberg on 10-02-2024 AST [Catalytic activity/Vol] Aspartate aminotransferase [Enzymatic activity/volume] in Serum or Plasma 13-39 [facility] Basophils Auto (Bld) [#/Vol] Ordered By: Adilene Weinberg on 10-02-2024 Basophils (Bld) [#/Vol] Automated basoph il count 0.0-0.2 [facility] Basophils/100 WBC Auto (Bld) Ordered By: Adilene Weinberg on 10-02-2024 Basophils/100 WBC (Bld) Automated basophil % . [facility] Bilirubin.total [Mass/volume ] in Serum or PlasmaOrdered By: Adilene Weinberg on 10-02-2024 Bilirubin [Mass/Vol] Bilirubin.total [Mass/volume] in Serum or Plasma 0.3-1.0 [facility] CBC W Auto Differential pane l (Bld)on 10-02-2024 Basophils (Bld) [#/Vol] 0 10*3/uL 0.0 - 0.2 10*3/uL [facility] Basophils/100 WBC Manual cnt (Syn fld) 0.6 % . [facility] Eosinophils (Bld) [#/Vol] 0 10*3/uL 0.0 - 0.45 10*3/uL [facility] Eosinophils/100 WBC Manual cnt (Syn fld) 0.9 % . [facility] Erythrocyte distribution width (RBC) [Ratio] 14.4 % 12.0 - 14.8 % [facility] Hematocrit (Bld) [Volume fraction] 31 % Low 38.8 - 50.0 % [facility] Hemoglobin (Bld) [Mass/Vol] 10.5 g/dL Low 13.0 - 17.0 g/dL [facility] Interpretation and review of laboratory results Abnormal [facility] Lymphocytes (Bld) [#/Vol] 0.8 10*3/uL Low 1.00 - 4.8 10*3/uL [facility] Lymphocytes/100 WBC Manual cnt (Syn fld) 15 % . [facility] MCH (RBC) [Entitic mass] 32.4 pg 27.5 - 35.2 pg [facility] MCHC (RBC) [Mass/Vol] 34 g/dL 32.5 - 35.6 g/dL [facility] MCV (RBC) [Entitic vol] 95.1 fL 83.5 - 101 fL [facility] Monocytes (Bld) [#/Vol] 0.6 10*3/uL 0.0 - 0.8 10*3/uL [facility] Monocytes+Macrophages/1 00 WBC Manual cnt (Syn fld) 11.4 % . [facility] Neutrophils (Bld) [#/Vol] 3.9 10*3/uL 1.8 - 7.7 10*3/uL [facility] Neutrophils/100 WBC Manual cnt (Syn fld) 72.1 % . [facility] NRBC 0.1 /100{WBC} 0 - 0.5 /100{WBC} [facility] Platelet mean volume (Bld) [Entitic vol] 8.1 fL 6.6 - 10.1 fL [facility] Platelets (Bld) [#/Vol] 131 10*3/uL Low 150 - 450 10*3/uL [facility] RBC LM.HPF (Urine sed) [#/Area] 3.26 10*6/uL Low 3.90 - 5.60 10*6/uL [facility] WBC (Bld) [#/Vol] 5.4 10*3/uL 4.1 - 10.5 10*3/uL [facility] WBC LM.HPF (Urine sed) [#/Area] 5.4 10*3/uL 4.1 - 10.5 10*3/uL [facility] Calcium [Mass/volume] in Ser um or PlasmaOrdered By: Adilene Weinberg on 10-02-2024 Calcium [Mass/Vol] Calcium [Mass/volume ] in Serum or Plasma 8.6-10.3 [facility] Carbon dioxide, total [Moles /volume] in Serum or PlasmaOrdered By: Adilene Weinberg on 10-02-2024 CO2 [Moles/Vol] Carbon dioxide, tota l [Moles/volume] in Serum or Plasma 21.0-31.0 [facility] Chloride [Moles/volume] in S boby or PlasmaOrdered By: Adilene Weinberg on 10-02-2024 Chloride [Moles/Vol] Chloride [Moles/volume] in Serum or Plasma 98-107 [facility] Complete Blood Count Auto Di ffon 10-02-2024 Basophils (Bld) [#/Vol] 0.0 10*3/uL Normal 0.0-0.2 [facility] Comment on above: Result Comment: PERF ORMED BY: [facility] [address] [place] [address] PATHOLOGIST FUEL OIL CLERK LUDWIG URBINA M.D. Performed By: #### L DH, CMP, CBC ####[address] Basophils/100 WBC (Bld) 0.6 % Normal . [facility] Comment on above: Performed By: #### L DH, CMP, CBC ####[place] [id number] [facility] Eosinophils (Bld) [#/Vol] 0.0 10*3/uL Normal 0.0-0.45 [facility] Comment on above: Performed By: #### L DH, CMP, CBC ####[place] [address] [place] Eosinophils/100 WBC (Bld) 0.9 % Normal . [facility] Comment on above: Performed By: #### L DH, CMP, CBC ####[address] Erythrocyte distribution width (RBC) [Ratio] 14.4 % Normal 12.0-14.8 [facility] Comment on above: Performed By: #### L DH, CMP, CBC ####[address] Hematocrit (Bld) [Volume fraction] 31.0 % Low 38.8-50.0 [facility] Comment on above: Performed By: #### L DH, CMP, CBC ####[address] Hemoglobin (Bld) [Mass/Vol] 10.5 g/dL Low 13.0-17.0 [facility] Comment on above: Performed By: #### L DH, CMP, CBC ####[address] Lymphocytes (Bld) [#/Vol] 0.8 10*3/uL Low 1.00-4.8 [facility] Comment on above: Performed By: #### L TYLER, CMP, CBC ####[address] Lymphocytes/100 WBC (Bld) 15.0 % Normal . [facility] Comment on above: Performed By: #### L DH, CMP, CBC ####[address] MCH (RBC) [Entitic mass] 32.4 pg Normal 27.5-35.2 [facility] Comment on above: Performed By: #### L DH, CMP, CBC ####[address] MCV (RBC) [Entitic vol] 95.1 fL Normal 83.5-101 [facility] Comment on above: Performed By: #### L DH, CMP, CBC ####[address] Mean Corpuscular HGB Conc 34.0 g/dL Normal 32.5-35.6 [facility] Comment on above: Performed By: #### L DH, CMP, CBC ####[address] Monocytes (Bld) [#/Vol] 0.6 10*3/uL Normal 0.0-0.8 [facility] Comment on above: Performed By: #### L DH, CMP, CBC ####[address] Monocytes/100 WBC (Bld) 11.4 % Normal . [facility] Comment on above: Performed By: #### L DH, CMP, CBC ####[address] Neutrophils (Bld) [#/Vol] 3.9 10*3/uL Normal 1.8-7.7 [facility] Comment on above: Performed By: #### L DH, CMP, CBC ####[address] Neutrophils/100 WBC (Bld) 72.1 % Normal . [facility] Comment on above: Performed By: #### L DH, CMP, CBC ####[address] NRBC% 0.1 /100{WBC} Normal 0-0.5 [facility] Comment on above: Performed By: #### L DH, CMP, CBC ####[address] Platelet mean volume (Bld) [Entitic vol] 8.1 fL Normal 6.6-10.1 [facility] Comment on above: Performed By: #### L DH, CMP, CBC ####[place] [id number] [facility] Platelets (Bld) [#/Vol] 131 10*3/uL Low 150-450 [facility] Comment on above: Performed By: #### L DH, CMP, CBC ####[place] [id number] [facility] RBC (Bld) [#/Vol] 3.26 10*6/uL Low 3.90-5.60 [facility] Comment on above: Performed By: #### L DH, CMP, CBC ####[place] [id number] [facility] WBC (Bld) [#/Vol] 5.4 10*3/uL Normal 4.1-10.5 [facility] Comment on above: Performed By: #### L DH, CMP, CBC ####[address] Comprehensive Metabolic Pane huan 10-02-2024 Albumin [Mass/Vol] 4.2 g/dL Normal 3.5-5.7 [facility] Comment on above: Performed By: #### L DH, CMP, CBC ####[address] Albumin/Globulin [Mass ratio] 2.2 {ratio} Normal [facility] Comment on above: Performed By: #### L DH, CMP, CBC ####[address] ALP [Catalytic activity/Vol] 63 U/L Normal 34-104 [facility] Comment on above: Performed By: #### L DH, CMP, CBC ####[address] ALT [Catalytic activity/Vol] 32 U/L Normal 7-52 [facility] Comment on above: Performed By: #### L DH, CMP, CBC ####[address] Anion gap [Moles/Vol] 9.7 mmol/L Normal 6.0-15.0 [facility] Comment on above: Performed By: #### L DH, CMP, CBC ####[address] AST [Catalytic activity/Vol] 22 U/L Normal 13-39 [facility] Comment on above: Performed By: #### L DH, CMP, CBC ####[address] Bilirubin [Mass/Vol] 0.7 mg/dL Normal 0.3-1.0 [facility] Comment on above: Performed By: #### L DH, CMP, CBC ####[address] Calcium [Mass/Vol] 9.4 mg/dL Normal 8.6-10.3 [facility] Comment on above: Performed By: #### L DH, CMP, CBC ####[address] Chloride [Moles/Vol] 104 mmol/L Normal 98-107 [facility] Comment on above: Performed By: #### L DH, CMP, CBC ####[address] CO2 [Moles/Vol] 30.6 mmol/L Normal 21.0-31.0 [facility] Comment on above: Performed By: #### L DH, CMP, CBC ####[address] Creatinine [Mass/Vol] 1.27 mg/dL Normal 0.70-1.30 [facility] Comment on above: Performed By: #### L DH, CMP, CBC ####[address] Estimated GFR 54.679 mL/Min Normal [facility] Comment on above: Performed By: #### L DH, CMP, CBC ####[address] Globulin (S) [Mass/Vol] 1.9 g/dL Normal [facility] Comment on above: Performed By: #### L DH, CMP, CBC ####[address] Glucose [Mass/Vol] 107 mg/dL High 70-100 [facility] Comment on above: Result Comment: [place] Glucose Reference Range is dependent on time and content of last meal. Glucose of more than 200 mg/dL in a nonstressed, ambulatory subject supports the diagnosis of Diabetes Mellitus. ADA recommended reference range Performed By: #### L DH, CMP, CBC ####[facility] [id number] [place] [address] [facility] Potassium [Moles/Vol] 4.3 mmol/L Normal 3.5-5.1 [facility] Comment on above: Performed By: #### L DH, CMP, CBC ####[place] [address] [place] [address] [facility] Protein [Mass/Vol] 6.1 g/dL Low 6.4-8.9 [facility] Comment on above: Performed By: #### L DH, CMP, CBC ####[place] [address] [place] [id number] [facility] Sodium [Moles/Vol] 140 mmol/L Normal 136-145 [facility] Comment on above: Performed By: #### L DH, CMP, CBC ####[place] [address] [place] [address] [facility] Urea nitrogen [Mass/Vol] 21 mg/dL Normal 7-25 [facility] Comment on above: Performed By: #### L DH, CMP, CBC ####[facility] [place] [address] [facility] Comprehensive metabolic pane huan 10-02-2024 Albumin [Mass/Vol] 4.2 g/dL 3.5 - 5.7 g/dL [facility] Albumin/Globulin [Mass ratio] 2.2 {ratio} [facility] ALP [Catalytic activity/Vol] 63 U/L 34 - 104 U/L [facility] ALT [Catalytic activity/Vol] 32 U/L 7 - 52 U/L [facility] Anion gap [Moles/Vol] 9.7 mmol/L 6.0 - 15.0 meq/L [facility] AST [Catalytic activity/Vol] 22 U/L 13 - 39 U/L [facility] Bilirubin [Mass/Vol] 0.7 mg/dL 0.3 - 1 .0 mg/dL [facility] Calcium [Mass/Vol] 9.4 mg/dL 8.6 - 10. 3 mg/dL [facility] Chloride [Moles/Vol] 104 mmol/L 98 - 10 7 mmol/L [facility] CO2 [Moles/Vol] 30.6 mmol/L 21.0 - 31.0 mmol/L [facility] Creatinine (U) [Mass/Vol] 1.27 mg/dL 0.70 - 1.30 mg/dL [facility] GFR/1.73 sq M.predicted MDRD (S/P/Bld) [Vol rate/Area] 54.679 mL/min/{1.73_m2} mL/Min [facility] Globulin (S) [Mass/Vol] 1.9 g/dL N [facility] Glucose [Mass/Vol] 107 mg/dL High 70 - 100 mg/dL [facility] Comment on above: Random Glucose Refer ence Range is dependent on time and content of last meal. Glucose of more than 200 mg/dL in a nonstressed, ambulatory subject supports the diagnosis of Diabetes Mellitus. ADA recommended reference range Interpretation and review of laboratory results Abnormal [facility] Potassium [Moles/Vol] 4.3 mmol/L 3.5 - 5.1 mmol/L [facility] Protein [Mass/Vol] 6.1 g/dL Low 6.4 - 8.9 g/dL [facility] Sodium [Moles/Vol] 140 mmol/L 136 - 145 mmol/L [facility] Urea nitrogen [Mass/Vol] 21 mg/dL 7 - 25 mg/dL [facility] Creatinine [Mass/volume] in Serum or PlasmaOrdered By: Adilene Weinberg on 10-02-2024 Creatinine [Mass/Vol] Creatinine [Mass/volume] in Serum or Plasma 0.70-1.30 [facility] Eosinophils Auto (Bld) [#/Vo l]Ordered By: Adilene Weinberg on 10-02-2024 Eosinophils (Bld) [#/Vol] Automated eosinophil count 0.0-0.45 [facility] Eosinophils/100 WBC Auto (Bl d)Ordered By: Adilene Weinberg on 10-02-2024 Eosinophils/100 WBC (Bld) Automated eosinophil % . [facility] Erythrocyte distribution wid th Auto (RBC) [Ratio]Ordered By: Adilene Weinberg on 10-02-2024 Erythrocyte distribution width (RBC) [Ratio] Erythrocyte distribution width [Ratio] by Automated count 12.0-14.8 [facility] Globulin Calc (S) [Mass/Vol] Ordered By: Adilene Weinberg on 10-02-2024 Globulin (S) [Mass/Vol] Serum globulin measurement by calculation (mass/volume) [facility] Glucose [Mass/volume] in Ser um or PlasmaOrdered By: Adilene Weinberg on 10-02-2024 Glucose [Mass/Vol] Glucose [Mass/volume ] in Serum or Plasma High 70-100 [facility] Comment on above: ADA recommended refe rence rangeRandom Glucose Reference Range is dependent on time and content of last meal. Glucose of more than 200 mg/dL in a nonstressed, ambulatory subject supports the diagnosis of Diabetes Mellitus. Hematocrit Auto (Bld) [Volum e fraction]Ordered By: Adilene Weinberg on 10-02-2024 Hematocrit (Bld) [Volume fraction] Hematocrit [Volume Fraction] of Blood by Automated count Low 38.8-50.0 [facility] Hemoglobin [Mass/volume] in BloodOrdered By: Adilene Weinberg on 10-02-2024 Hemoglobin (Bld) [Mass/Vol] Hemoglobin [Mass/volume] in Blood Low 13.0-17.0 [facility] LDH Lactate Dehydrogenaseon 10-02-2024 LDH Lactate Dehydrogenase 215 U/L Normal 140-271 The [facility] [facility] Comment on above: Result Comment: PERF ORMED BY: [facility] [address] [place] [id number] PATHOLOGIST FUEL OIL CLERK LUDWIG URBINA M.D. Performed By: #### L DH, CMP, CBC ####[facility] [id number] [place] [address] [facility] LDH Lactate to pyruvate reac tion [Catalytic activity/Vol]on 10-02-2024 LDH LACTATE DEHYDROGENASE 215 U/L 140 - 271 U/L [facility] Lactate dehydrogenase [Enzym atic activity/volume] in Serum or Plasma by Lactate to pyOrdered By: Adilene Weinberg on 10-02-2024 LDH Lactate to pyruvate reaction [Catalytic activity/Vol] Lactate dehydrogenase [Enzymatic activity/volume] in Serum or Plasma by Lactate to py 140-271 [facility] Leukocytes [#/volume] correc bert for nucleated erythrocytes in Blood by Automated counOrdered By: Adilene Weinberg on 10-02-2024 WBC corrected for nucl RBC Auto (Bld) [#/Vol] Leukocytes [#/volume] corrected for nucleated erythrocytes in Blood by Automated coun 4.1-10.5 [facility] Lymphocytes Auto (Bld) [#/Vo l]Ordered By: Adilene Weinberg on 10-02-2024 Lymphocytes (Bld) [#/Vol] Lymphocytes [#/volume] in Blood by Automated count Low 1.00-4.8 [facility] Lymphocytes/100 WBC Auto (Bl d)Ordered By: Adilene Weinberg on 10-02-2024 Lymphocytes/100 WBC (Bld) Lymphocytes/100 leukocytes in Blood by Automated count . [facility] MCH Auto (RBC) [Entitic mass ]Ordered By: Adilene Weinberg on 10-02-2024 MCH (RBC) [Entitic mass] MCH [Entitic mass] by Automated count 27.5-35.2 [facility] MCHC Auto (RBC) [Mass/Vol]Or dered By: Adilene Weinberg on 10-02-2024 MCHC (RBC) [Mass/Vol] MCHC [Mass/volume] by Automated count 32.5-35.6 [facility] MCV Auto (RBC) [Entitic vol] Ordered By: Adilene Weinberg on 10-02-2024 MCV (RBC) [Entitic vol] MCV [Entitic vol ume] by Automated count 83.5-101 [facility] Monocytes Auto (Bld) [#/Vol] Ordered By: Adilene Weinberg on 10-02-2024 Monocytes (Bld) [#/Vol] Automated blood monocyte count 0.0-0.8 [facility] Monocytes/100 WBC Auto (Bld) Ordered By: Adilene Weinberg on 10-02-2024 Monocytes/100 WBC (Bld) Automated monocyte % . [facility] Neutrophils Auto (Bld) [#/Vo l]Ordered By: Adilene Weinberg on 10-02-2024 Neutrophils (Bld) [#/Vol] Neutrophils [#/volume] in Blood by Automated count 1.8-7.7 [facility] Neutrophils/100 WBC Auto (Bl d)Ordered By: Adilene Weinberg on 10-02-2024 Neutrophils/100 WBC (Bld) Automated neutrophil % . [facility] No Panel Informationon 10-02 [facility] No Panel InformationOrdered By: Adilene Weinberg on 10-02-2024 Estimated GFR (CKD-EPI) 54.679 mL/Min [facility] Creatinine Clearance (Chem N/A [facility] Nucleated erythrocytes [Pres ence] in Blood by Automated countOrdered By: Adilene Weinberg on 10-02-2024 Nucleated RBC Auto Ql (Bld) Nucleated erythrocytes [Presence] in Blood by Automated count 0-0.5 [facility] Platelet mean volume Auto (B ld) [Entitic vol]Ordered By: Adilene Weinberg on 10-02-2024 Platelet mean volume (Bld) [Entitic vol] Platelet mean volume [Entitic volume] in Blood by Automated count 6.6-10.1 [facility] Platelets Auto (Bld) [#/Vol] Ordered By: Adilene Weinberg on 10-02-2024 Platelets (Bld) [#/Vol] Platelets [#/vol ume] in Blood by Automated count Low 150-450 [facility] Potassium [Moles/volume] in Serum or PlasmaOrdered By: Adilene Weinberg on 10-02-2024 Potassium [Moles/Vol] Potassium [Moles/volume] in Serum or Plasma 3.5-5.1 [facility] Protein [Mass/volume] in Ser um or PlasmaOrdered By: Adilene Weinberg on 10-02-2024 Protein [Mass/Vol] Protein [Mass/volume ] in Serum or Plasma Low 6.4-8.9 [facility] RBC Auto (Bld) [#/Vol]Ordere d By: Adilene Weinberg on 10-02-2024 RBC (Bld) [#/Vol] Erythrocytes [#/volume] in Blood by Automated count Low 3.90-5.60 [facility] Serum or plasma albumin/glob ulin mass ratioOrdered By: Adilene Weinberg on 10-02-2024 Albumin/Globulin [Mass ratio] Serum or plasma albumin/globulin mass ratio [facility] Serum or plasma anion gap de terminationOrdered By: Adilene Weinberg on 10-02-2024 Anion gap [Moles/Vol] Serum or plasma an ion gap determination 6.0-15.0 [facility] Sodium [Moles/volume] in Ser um or PlasmaOrdered By: Adilene Weinberg on 10-02-2024 Sodium [Moles/Vol] Sodium [Moles/volume ] in Serum or Plasma 136-145 [facility] US extremity nonvascularon 1 US extremity nonvascular [facility] [place] [address] Ultrasound Report Signed Patient: Sebastian Hannon MR#: [id number] 0 : 1935 Acct:[id number] Age/Sex: 89 / M ADM Date: 10/02/24 Loc: Room: Type: [facility] Attending Dr: Adilene Weinberg MD Ordering [...] Abdoul William M.D.10/02/2024 5:30 PM Dictation Location: [place] [address] Tech: Siria Gardner Transcribed By: PHYLLIS 10/02/24 173 Dictated By: Abdoul William DO 10/02/24 172 Signed By: 10/02/24 173 Normal [facility] Urea nitrogen [Mass/volume] in Serum or PlasmaOrdered By: Adilene Weinberg on 10-02-2024 Urea nitrogen [Mass/Vol] Urea nitrogen [Mass/volume] in Serum or Plasma 04-27 [facility] WBC Auto (Bld) [#/Vol]Ordere d By: Adilene Weinberg on 10-02-2024 WBC (Bld) [#/Vol] Leukocytes [#/volume ] in Blood by Automated count 4.1-10.5 [facility] Alanine aminotransferase [En zymatic activity/volume] in Serum or PlasmaOrdered By: Michele Arteaga on 07-04-2024 ALT [Catalytic activity/Vol] 25 U/L Normal 7-52 [facility] Comment on above: Performed By: #### C REAT, CBC, HEPATIC, ESR ####[address] Albumin [Mass/volume] in Ser um or Plasma by Bromocresol green (BCG) dye binding methoOrdered By: Michele Arteaga on 07-04-2024 Albumin BCG dye [Mass/Vol] 4.1 g/dL 3.5-5.7 [facility] Alkaline phosphatase [Enzyma tic activity/volume] in Serum or PlasmaOrdered By: Michele Arteaga on 07-04-2024 ALP [Catalytic activity/Vol] 68 U/L Normal 34-104 [facility] Comment on above: Performed By: #### C REAT, CBC, HEPATIC, ESR ####[address] Aspartate aminotransferase [ Enzymatic activity/volume] in Serum or PlasmaOrdered By: Michele Arteaga on 07-04-2024 AST [Catalytic activity/Vol] 23 U/L Normal 13-39 [facility] Comment on above: Performed By: #### C REAT, CBC, HEPATIC, ESR ####[address] Automated basophil %Ordered By: Michele Arteaga on 07-04-2024 Basophils/100 WBC (Bld) 0.8 % Normal . [facility] Comment on above: Performed By: #### C REAT, CBC, HEPATIC, ESR ####[place] [id number] [facility] Automated basophil countOrde red By: Michele Arteaga on 07-04-2024 Basophils (Bld) [#/Vol] 0.0 10*3/uL Normal 0.0-0.2 [facility] Comment on above: Performed By: #### C REAT, CBC, HEPATIC, ESR ####[address] Automated blood monocyte cou ntOrdered By: Michele Arteaga on 07-04-2024 Monocytes (Bld) [#/Vol] 0.5 10*3/uL Normal 0.0-0.8 [facility] Comment on above: Performed By: #### C REAT, CBC, HEPATIC, ESR ####[address] Automated eosinophil %Ordere d By: Michele Arteaga on 07-04-2024 Eosinophils/100 WBC (Bld) 2.5 % Normal . [facility] Comment on above: Performed By: #### C REAT, CBC, HEPATIC, ESR ####[address] Automated eosinophil countOr dered By: Michele Arteaga on 07-04-2024 Eosinophils (Bld) [#/Vol] 0.1 10*3/uL Normal 0.0-0.45 [facility] Comment on above: Performed By: #### C REAT, CBC, HEPATIC, ESR ####[address] Automated monocyte %Ordered By: Michele Arteaga on 07-04-2024 Monocytes/100 WBC (Bld) 13.2 % Normal . [facility] Comment on above: Performed By: #### C REAT, CBC, HEPATIC, ESR ####[address] Automated neutrophil %Ordere d By: Michele Arteaga on 07-04-2024 Neutrophils/100 WBC (Bld) 67.5 % Normal . [facility] Comment on above: Performed By: #### C REAT, CBC, HEPATIC, ESR ####[address] Bilirubin.direct [Mass/volum e] in Serum or PlasmaOrdered By: Michele Arteaga on 07-04-2024 Bilirubin.direct [Mass/Vol] 0.20 mg/dL High 0.03-0.18 [facility] Bilirubin.total [Mass/volume ] in Serum or PlasmaOrdered By: Michele Arteaga on 07-04-2024 Bilirubin [Mass/Vol] 0.7 mg/dL Normal 0.3-1.0 [facility] Comment on above: Performed By: #### C REAT, CBC, HEPATIC, ESR ####[address] Complete Blood Count Auto Di ffon 07-04-2024 Mean Corpuscular HGB Conc 34.0 g/dL Normal 32.5-35.6 [facility] Comment on above: Performed By: #### C REAT, CBC, HEPATIC, ESR ####[place] [id number] [address] NRBC% 0.0 /100{WBC} Normal 0-0.5 [facility] Comment on above: Performed By: #### C REAT, CBC, HEPATIC, ESR ####[place] [id number] [facility] Creatinineon 07-04-2024 GFR/1.73 sq M.predicted MDRD (S/P/Bld) [Vol rate/Area] 53.501 mL/min/{1.73_m2} Normal [facility] Comment on above: Result Comment: PERF ORMED BY: [facility] [address] [place] [address] PATHOLOGIST FUEL OIL CLERK NIYA BARRERA M.D. Performed By: #### C REAT, CBC, HEPATIC, ESR ####[place] [id number] [facility] Creatinine [Mass/volume] in Serum or PlasmaOrdered By: Michele Arteaga on 07-04-2024 Creatinine [Mass/Vol] 1.30 mg/dL Normal 0.70-1.30 [facility] Comment on above: Performed By: #### C REAT, CBC, HEPATIC, ESR ####[address] Erythrocyte Sedimentation Ra shayy 07-04-2024 ESR (Bld) [Velocity] 6 mm/h Normal 0-19 [facility] Comment on above: Result Comment: PERF ORMED BY: [facility] [address] [place] [address] PATHOLOGIST FUEL OIL CLERK NIYA BARRERA M.D. Performed By: #### C REAT, CBC, HEPATIC, ESR ####[place] [id number] [address] Erythrocyte distribution wid th [Ratio] by Automated countOrdered By: Michele Arteaga on 07-04-2024 Erythrocyte distribution width (RBC) [Ratio] 13.5 % Normal 12.0-14.8 [facility] Comment on above: Performed By: #### C REAT, CBC, HEPATIC, ESR ####[address] Erythrocyte sedimentation ra te by Photometric methodOrdered By: Michele Arteaga on 07-04-2024 ESR Photometric method (Bld) [Velocity] 6 mm/hr 0-19 [facility] Erythrocytes [#/volume] in B lood by Automated countOrdered By: Michele Arteaga on 07-04-2024 RBC (Bld) [#/Vol] 3.14 10*6/uL Low 3.90-5.60 [facility] Comment on above: Performed By: #### C REAT, CBC, HEPATIC, ESR ####[address] Hematocrit [Volume Fraction] of Blood by Automated countOrdered By: Michele Arteaga on 07-04-2024 Hematocrit (Bld) [Volume fraction] 29.5 % Low 38.8-50.0 [facility] Comment on above: Performed By: #### C REAT, CBC, HEPATIC, ESR ####[address] Hemoglobin [Mass/volume] in BloodOrdered By: Michele Arteaga on 07-04-2024 Hemoglobin (Bld) [Mass/Vol] 10.0 g/dL Low 13.0-17.0 [facility] Comment on above: Performed By: #### C REAT, CBC, HEPATIC, ESR ####[place] [id number] [place] [id number] [facility] Hepatic Panelon 07-04-2024 Albumin [Mass/Vol] 4.1 g/dL Normal 3.5-5.7 [facility] Comment on above: Performed By: #### C REAT, CBC, HEPATIC, ESR ####[place] [id number] [facility] Bilirubin,Indirect 0.5 mg/dL Normal [facility] Comment on above: Performed By: #### C REAT, CBC, HEPATIC, ESR ####[address] Bilirubin.indirect [Mass/Vol] 0.20 mg/dL High 0.03-0.18 [facility] Comment on above: Performed By: #### C REAT, CBC, HEPATIC, ESR ####[address] Leukocytes [#/volume] correc bert for nucleated erythrocytes in Blood by Automated counOrdered By: Michele Arteaga on 07-04-2024 WBC corrected for nucl RBC Auto (Bld) [#/Vol] 3.8 10*3/uL Low 4.1-10.5 [facility] Leukocytes [#/volume] in Blo od by Automated countOrdered By: Michele Arteaga on 07-04-2024 WBC (Bld) [#/Vol] 3.8 10*3/uL Low 4.1-10.5 [facility] Comment on above: Performed By: #### C REAT, CBC, HEPATIC, ESR ####[place] [id number] [facility] Lymphocytes [#/volume] in Bl ood by Automated countOrdered By: Michele Arteaga on 07-04-2024 Lymphocytes (Bld) [#/Vol] 0.6 10*3/uL Low 1.00-4.8 [facility] Comment on above: Performed By: #### C REAT, CBC, HEPATIC, ESR ####[place] [address] [place] Lymphocytes/100 leukocytes i n Blood by Automated countOrdered By: Michele Arteaga on 07-04-2024 Lymphocytes/100 WBC (Bld) 16.0 % Normal . [facility] Comment on above: Performed By: #### C REAT, CBC, HEPATIC, ESR ####[place] [id number] [address] MCH [Entitic mass] by Automa bert countOrdered By: Michele Arteaga on 07-04-2024 MCH (RBC) [Entitic mass] 31.9 pg Normal 27.5-35.2 [facility] Comment on above: Performed By: #### C REAT, CBC, HEPATIC, ESR ####[address] MCHC Auto (RBC) [Mass/Vol]Or dered By: Michele Arteaga on 07-04-2024 MCHC (RBC) [Mass/Vol] 34.0 g/dL 32.5-35.6 [facility] MCV [Entitic volume] by Auto mated countOrdered By: Michele Arteaga on 07-04-2024 MCV (RBC) [Entitic vol] 93.9 fL Normal 83.5-101 [facility] Comment on above: Performed By: #### C REAT, CBC, HEPATIC, ESR ####[address] Neutrophils [#/volume] in Bl ood by Automated countOrdered By: Michele Arteaga on 07-04-2024 Neutrophils (Bld) [#/Vol] 2.6 10*3/uL Normal 1.8-7.7 [facility] Comment on above: Performed By: #### C REAT, CBC, HEPATIC, ESR ####[address] No Panel InformationOrdered By: Michele Arteaga on 07-04-2024 Estimated GFR (CKD-EPI) 53.501 mL/Min [facility] Creatinine Clearance (Chem N/A [facility] Nucleated erythrocytes [Pres ence] in Blood by Automated countOrdered By: Michele Arteaga on 07-04-2024 Nucleated RBC Auto Ql (Bld) 0.0 /100{WBC} 0-0.5 [facility] Platelet mean volume [Entiti c volume] in Blood by Automated countOrdered By: Michele Arteaga on 07-04-2024 Platelet mean volume (Bld) [Entitic vol] 8.7 fL Normal 6.6-10.1 [facility] Comment on above: Performed By: #### C REAT, CBC, HEPATIC, ESR ####[address] Platelets [#/volume] in Bloo d by Automated countOrdered By: Michele Arteaga on 07-04-2024 Platelets (Bld) [#/Vol] 123 10*3/uL Low 150-450 [facility] Comment on above: Performed By: #### C REAT, CBC, HEPATIC, ESR ####[address] Protein [Mass/volume] in Ser um or PlasmaOrdered By: Michele Arteaga on 07-04-2024 Protein [Mass/Vol] 5.9 g/dL Low 6.4-8.9 [facility] Comment on above: Performed By: #### C REAT, CBC, HEPATIC, ESR ####[address] Serum globulin measurement b y calculation (mass/volume)Ordered By: Michele Arteaga on 07-04-2024 Globulin (S) [Mass/Vol] 1.8 g/dL Normal [facility] Comment on above: Performed By: #### C REAT, CBC, HEPATIC, ESR ####[address] Serum or plasma albumin/glob ulin mass ratioOrdered By: Michele Arteaga on 07-04-2024 Albumin/Globulin [Mass ratio] 2.3 {ratio} Normal [facility] Comment on above: Performed By: #### C REAT, CBC, HEPATIC, ESR ####[address] Serum or plasma non-glucuron idated bilirubin measurement (mass/volume)Ordered By: Michele Arteaga on 07-04-2024 Bilirubin.indirect [Mass/Vol] 0.5 mg/dL [facility] GLUCOSE POCT GLUCOMETERSon 0 07-03-2024 Glucose [Mass/Vol] 83 mg/dL [facility] Comment on above: Random Glucose Refer ence Range is dependent on time and content of last meal. Glucose of more than 200 mg/dL in a nonstressed, ambulatory subject supports the diagnosis of Diabetes Mellitus. [facility] Capillary blood glucose kumar urement by glucometer (mass/volume)Ordered By: Adilene Weinberg on 06-30-2024 Glucose [Mass/Vol] 83 mg/dL Normal [facility] Comment on above: Random Glucose Refer ence Range is dependent on time and content of last meal. Glucose of more than 200 mg/dL in a nonstressed, ambulatory subject supports the diagnosis of Diabetes Mellitus. Result Comment: [facility] Glucose Reference Range is dependent on time and content of last meal. Glucose of more than 200 mg/dL in a nonstressed, ambulatory subject supports the diagnosis of Diabetes Mellitus. PERFORMED BY: [place] [address] PATHOLOGIST FUEL OIL CLERK NIYA BARRERA M.D. Performed By: #### G LISA ####Point of Care testing, Glucose Glucometer (BldC) [M ass/Vol]Ordered By: Adilene Weinberg on 06-30-2024 Glucose [Mass/Vol] Capillary blood glucose measurement by glucometer (mass/volume) [facility] Comment on above: Random Glucose Refer ence Range is dependent on time and content of last meal. Glucose of more than 200 mg/dL in a nonstressed, ambulatory subject supports the diagnosis of Diabetes Mellitus. PET tumor subq tx strat wbon 06-30-2024 PET tumor subq tx strat wb [facility] Main [place] [id number] Nuclear Medicine Report Signed Patient: Sebastian Hannon MR#: [id number] 0 : 1935 Acct:[id number] Age/Sex: 88 / M ADM Date: 06/30/24 Loc: XT Room: Type: [facility] Attending Dr: Adilene Weinberg MD [...] Silver Jr., D.O.06/30/2024 3:08 PM Dictation Location: [place] [address] Transcribed By: [facility] 06/30/24 1508 Dictated By: Festus Silver Jr, DO 06/30/24 1458 Signed By: 06/30/24 1508 Normal [facility] Alanine aminotransferase [En zymatic activity/volume] in Serum or PlasmaOrdered By: Adilene Weinberg on 06-12-2024 ALT [Catalytic activity/Vol] 29 U/L Normal [facility] Comment on above: Order Comment: STAT BUN/CREAT FOR CT Performed By: #### C MP, LDH ####[facility] [id number] [place] [id number] [facility] ALT [Catalytic activity/Vol] Alanine aminotransferase [Enzymatic activity/volume] in Serum or Plasma [facility] Albumin [Mass/volume] in Ser um or Plasma by Bromocresol green (BCG) dye binding methoOrdered By: Adilene Weinberg on 06-12-2024 Albumin BCG dye [Mass/Vol] 4.5 g/dL 3.5-5.7 [facility] Albumin BCG dye [Mass/Vol] Albumin [Mass/volume] in Serum or Plasma by Bromocresol green (BCG) dye binding metho 3.5-5.7 [facility] Alkaline phosphatase [Enzyma tic activity/volume] in Serum or PlasmaOrdered By: Adilene Weinberg on 06-12-2024 ALP [Catalytic activity/Vol] 77 U/L Normal [facility] Comment on above: Order Comment: STAT BUN/CREAT FOR CT Performed By: #### C MP, LDH ####[facility] [id number] ALP [Catalytic activity/Vol] Alkaline phosphatase [Enzymatic activity/volume] in Serum or Plasma [facility] Aspartate aminotransferase [ Enzymatic activity/volume] in Serum or PlasmaOrdered By: Adilene Weinberg on 06-12-2024 AST [Catalytic activity/Vol] 23 U/L Normal [facility] Comment on above: Order Comment: STAT BUN/CREAT FOR CT Performed By: #### C MP, LDH ####[facility] [id number] AST [Catalytic activity/Vol] Aspartate aminotransferase [Enzymatic activity/volume] in Serum or Plasma [facility] Automated basophil %Ordered By: Adilene Weinberg on 06-12-2024 Basophils/100 WBC (Bld) 1.0 % Normal . [facility] Comment on above: Performed By: #### C BC #### [facility] [address] Automated basophil countOrde red By: Adilene Weinberg on 06-12-2024 Basophils (Bld) [#/Vol] 0.0 10*3/uL Normal 0.0-0.2 [facility] Comment on above: Result Comment: PERF ORMED BY: [place] [address] PATHOLOGIST FUEL OIL CLERK NIYA BARRERA M.D. Performed By: #### C BC #### [facility] [address] [place] [address] Automated blood monocyte cou ntOrdered By: Adilene Weinberg on 06-12-2024 Monocytes (Bld) [#/Vol] 0.6 10*3/uL Normal 0.0-0.8 [facility] Comment on above: Performed By: #### C BC #### [address] Automated eosinophil %Ordere d By: Adilene Weinberg on 06-12-2024 Eosinophils/100 WBC (Bld) 3.6 % Normal . [facility] Comment on above: Performed By: #### C BC #### [address] Automated eosinophil countOr dered By: Adilene Weinberg on 06-12-2024 Eosinophils (Bld) [#/Vol] 0.2 10*3/uL Normal 0.0-0.45 [facility] Comment on above: Performed By: #### C BC #### [address] Automated monocyte %Ordered By: Adilene Weinberg on 06-12-2024 Monocytes/100 WBC (Bld) 13.3 % Normal . [facility] Comment on above: Performed By: #### C BC #### [address] Automated neutrophil %Ordere d By: Adilene Weinberg on 06-12-2024 Neutrophils/100 WBC (Bld) 59.7 % Normal . [facility] Comment on above: Performed By: #### C BC #### [address] Basophils Auto (Bld) [#/Vol] Ordered By: Adilene Weinberg on 06-12-2024 Basophils (Bld) [#/Vol] Automated basoph il count 0.0-0.2 [facility] Basophils/100 WBC Auto (Bld) Ordered By: Adilene Weinberg on 06-12-2024 Basophils/100 WBC (Bld) Automated basophil % . [facility] Bilirubin.total [Mass/volume ] in Serum or PlasmaOrdered By: Adilene Weinberg on 06-12-2024 Bilirubin [Mass/Vol] 0.7 mg/dL Normal 0.3-1.0 [facility] Comment on above: Order Comment: STAT BUN/CREAT FOR CT Performed By: #### C MP, LDH ####[facility] [address] [place] [address] [facility] Bilirubin [Mass/Vol] Bilirubin.total [Mass/volume] in Serum or Plasma 0.3-1.0 [facility] CBC W Auto Differential pane l (Bld)on 06-12-2024 Basophils (Bld) [#/Vol] 0.0 10*3/uL 0.0 - 0.2 10*3/uL [facility] Basophils/100 WBC Manual cnt (Syn fld) 1.0 % . [facility] Eosinophils (Bld) [#/Vol] 0.2 10*3/uL 0.0 - 0.45 10*3/uL [facility] Eosinophils/100 WBC Manual cnt (Syn fld) 3.6 % . [facility] Erythrocyte distribution width (RBC) [Ratio] 13.9 % 12.0 - 14.8 % [facility] Hematocrit (Bld) [Volume fraction] 32.6 % Low 38.8 - 50.0 % [facility] Hemoglobin (Bld) [Mass/Vol] 11.0 g/dL Low 13.0 - 17.0 g/dL [facility] Interpretation and review of laboratory results Abnormal [facility] Lymphocytes (Bld) [#/Vol] 1.0 10*3/uL 1.00 - 4.8 10*3/uL [facility] Lymphocytes/100 WBC Manual cnt (Syn fld) 22.4 % . [facility] MCH (RBC) [Entitic mass] 31.6 pg 27.5 - 35.2 pg [facility] MCHC (RBC) [Mass/Vol] 33.9 g/dL 32.5 - 35.6 g/dL [facility] MCV (RBC) [Entitic vol] 93.4 fL 83.5 - 101 fL [facility] Monocytes (Bld) [#/Vol] 0.6 10*3/uL 0.0 - 0.8 10*3/uL [facility] Monocytes+Macrophages/1 00 WBC Manual cnt (Syn fld) 13.3 % . [facility] Neutrophils (Bld) [#/Vol] 2.6 10*3/uL 1.8 - 7.7 10*3/uL [facility] Neutrophils/100 WBC Manual cnt (Syn fld) 59.7 % . [facility] NRBC 0.1 /100{WBC} 0 - 0.5 /100{WBC} [facility] Platelet mean volume (Bld) [Entitic vol] 8.0 fL 6.6 - 10.1 fL [facility] Platelets (Bld) [#/Vol] 132 10*3/uL Low 150 - 450 10*3/uL [facility] RBC LM.HPF (Urine sed) [#/Area] 3.49 /[HPF] Low 3.90 - 5.60 [facility] WBC (Bld) [#/Vol] 4.4 10*3/uL 4.1 - 10.5 10*3/uL [facility] WBC LM.HPF (Urine sed) [#/Area] 4.4 10*3/uL 4.1 - 10.5 10*3/uL [facility] CT abdomen pelvis w conon CT abdomen pelvis w con [facility] Main [place] [address] [place] [address] CT Scan Report Signed Patient: Sebastian Hannon MR#: [id number] 0 : 1935 Acct:[id number] Age/Sex: 88 / M ADM Date: 06/12/24 Loc: Room: Type: [facility] Attending [...] Tereso Lynn M.D.06/12/2024 1:15 PM Dictation Location: [place] [address] Transcribed By: [facility] 06/12/24 1315 Dictated By: Tereso Lynn II, MD 06/12/24 1308 Signed By: 06/12/24 1315 Normal [facility] CT chest w conon 06-12-2024 CT chest w con [facility] [place] [address] CT Scan Report Signed Patient: Sebastian Hannon MR#: [id number] 0 : 1935 Acct:[id number] Age/Sex: 88 / M ADM Date: 06/12/24 Loc: [facility]: [facility] Dr: Adilene Weinberg MD Copies to: [...] Tereso Lynn M.D.06/12/2024 1:04 PM Dictation Location: [place] [address] Transcribed By: PHYLLIS 06/12/24 1304 Dictated By: Tereso Lynn II, MD 06/12/24 1249 Signed By: 06/12/24 1304 Normal [facility] CT head/brain wo/w conon CT head/brain wo/w con [facility] Main [place] [id number] CT Scan Report Signed Patient: Sebastian Hannon MR#: [id number] 0 : 1935 Acct:[id number] Age/Sex: 88 / M ADM Date: 06/12/24 Loc: XT Room: Type: [facility] Attending Dr: [...] Hafsa Keen M.D.06/12/2024 11:58 AM Dictation Location: [place] [address] Transcribed By: [facility] 06/12/24 1158 Dictated By: Hafsa Keen MD 06/12/24 1154 Signed By: 06/12/24 1158 Normal [facility] CT soft tissue neck danisha saldaña 06-12-2024 CT soft tissue neck w [facility] Main [place] [id number] CT Scan Report Signed Patient: Sebastian Hannon MR#: [id number] 0 : 1935 Acct:[id number] Age/Sex: 88 / M ADM Date: 06/12/24 Loc: XT Room: Type: [facility] Attending Dr: [...] Tereso Lynn M.D.06/12/2024 12:24 PM Dictation Location: [place] [address] Transcribed By: PHYLLIS 06/12/24 1224 Dictated By: Tereso Lynn II, MD 06/12/24 1213 Signed By: 06/12/24 1224 Normal [facility] Calcium [Mass/volume] in Ser um or PlasmaOrdered By: Adilene Weinberg on 06-12-2024 Calcium [Mass/Vol] 9.5 mg/dL Normal 8.6-10.3 [facility] Comment on above: Order Comment: STAT BUN/CREAT FOR CT Performed By: #### C MP, LDH ####[place] [id number] [address] Calcium [Mass/Vol] Calcium [Mass/volume ] in Serum or Plasma 8.6-10.3 [facility] Carbon dioxide, total [Moles /volume] in Serum or PlasmaOrdered By: Adilene Weinberg on 06-12-2024 CO2 [Moles/Vol] 28.4 mmol/L Normal 21.0-31.0 [facility] Comment on above: Order Comment: STAT BUN/CREAT FOR CT Performed By: #### C MP, LDH ####[address] CO2 [Moles/Vol] Carbon dioxide, tota l [Moles/volume] in Serum or Plasma 21.0-31.0 [facility] Chloride [Moles/volume] in S boby or PlasmaOrdered By: Adilene Weinberg on 06-12-2024 Chloride [Moles/Vol] 102 mmol/L Normal 98-107 [facility] Comment on above: Order Comment: STAT BUN/CREAT FOR CT Performed By: #### C MP, LDH ####[address] Chloride [Moles/Vol] Chloride [Moles/volume] in Serum or Plasma 98-107 [facility] Complete Blood Count Auto Di ffon 06-12-2024 Mean Corpuscular HGB Conc 33.9 g/dL Normal 32.5-35.6 [facility] Comment on above: Performed By: #### C BC #### [facility] [address] NRBC% 0.1 /100{WBC} Normal 0-0.5 [facility] Comment on above: Performed By: #### C BC #### [facility] [address] Comprehensive Metabolic Pane huan 06-12-2024 Albumin [Mass/Vol] 4.5 g/dL Normal 3.5-5.7 [facility] Comment on above: Order Comment: STAT BUN/CREAT FOR CT Performed By: #### C MP, LDH ####[facility] Creatinine Clr Calc Pharmacy 46.01 Normal [facility] Comment on above: Order Comment: STAT BUN/CREAT FOR CT Performed By: #### C MP, LDH ####[facility] GFR/1.73 sq M.predicted MDRD (S/P/Bld) [Vol rate/Area] 59.489 mL/min/{1.73_m2} Normal [facility] Comment on above: Order Comment: STAT BUN/CREAT FOR CT Performed By: #### C MP, LDH ####[place] [address] [address] Comprehensive metabolic pane [facility] 06-12-2024 Albumin [Mass/Vol] 4.5 g/dL 3.5 - 5.7 g/dL [facility] Albumin/Globulin [Mass ratio] 1.9 {ratio} [facility] ALP [Catalytic activity/Vol] 77 U/L 34 - 104 U/L [facility] ALT [Catalytic activity/Vol] 29 U/L 7 - 52 U/L [facility] Anion gap [Moles/Vol] 11.7 mmol/L 6.0 - 15.0 [facility] AST [Catalytic activity/Vol] 23 U/L 13 - 39 U/L [facility] Bilirubin [Mass/Vol] 0.7 mg/dL 0.3 - 1 .0 mg/dL [facility] Calcium [Mass/Vol] 9.5 mg/dL 8.6 - 10. 3 mg/dL [facility] Chloride [Moles/Vol] 102 mmol/L 98 - 10 7 mmol/L [facility] CO2 [Moles/Vol] 28.4 mmol/L 21.0 - 31.0 mmol/L [facility] Creatinine (U) [Mass/Vol] 1.19 mg/dL 0.70 - 1.30 mg/dL [facility] CREATININE CLR CALC PHARMACY 46.01 [facility] GFR/1.73 sq M.predicted MDRD (S/P/Bld) [Vol rate/Area] 59.489 mL/min/{1.73_m2} [facility] Globulin (S) [Mass/Vol] 2.4 g/dL [facility] Glucose [Mass/Vol] 102 mg/dL High 70 - 100 mg/dL [facility] Comment on above: Random Glucose Refer ence Range is dependent on time and content of last meal. Glucose of more than 200 mg/dL in a nonstressed, ambulatory subject supports the diagnosis of Diabetes Mellitus. ADA recommended reference range Interpretation and review of laboratory results Abnormal [facility] Potassium [Moles/Vol] 4.1 mmol/L 3.5 - 5.1 mmol/L [facility] Protein [Mass/Vol] 6.9 g/dL 6.4 - 8.9 g/dL [facility] Sodium [Moles/Vol] 138 mmol/L 136 - 145 mmol/L [facility] Urea nitrogen [Mass/Vol] 21 mg/dL 7 - 25 mg/dL [facility] Creatinine [Mass/volume] in Serum or PlasmaOrdered By: Adilene Weinberg on 06-12-2024 Creatinine [Mass/Vol] 1.19 mg/dL Normal 0.70-1.30 [facility] Comment on above: Order Comment: STAT BUN/CREAT FOR CT Performed By: #### C MP, LDH ####[facility] [address] Creatinine [Mass/Vol] Creatinine [Mass/volume] in Serum or Plasma 0.70-1.30 [facility] Eosinophils Auto (Bld) [#/Vo l]Ordered By: Adilene Weinberg on 06-12-2024 Eosinophils (Bld) [#/Vol] Automated eosinophil count 0.0-0.45 [facility] Eosinophils/100 WBC Auto (Bl d)Ordered By: Adilene Weinberg on 06-12-2024 Eosinophils/100 WBC (Bld) Automated eosinophil % . [facility] Erythrocyte distribution wid th Auto (RBC) [Ratio]Ordered By: Adilene Weinberg on 06-12-2024 Erythrocyte distribution width (RBC) [Ratio] Erythrocyte distribution width [Ratio] by Automated count 12.0-14.8 [facility] Erythrocyte distribution wid th [Ratio] by Automated countOrdered By: Adilene Weinberg on 06-12-2024 Erythrocyte distribution width (RBC) [Ratio] 13.9 % Normal 12.0-14.8 [facility] Comment on above: Performed By: #### C BC #### [facility] [address] Erythrocytes [#/volume] in B lood by Automated countOrdered By: Adilene Weinberg on 06-12-2024 RBC (Bld) [#/Vol] 3.49 10*6/uL Low 3.90-5.60 [facility] Comment on above: Performed By: #### C BC #### [facility] [address] Globulin Calc (S) [Mass/Vol] Ordered By: Adilene Weinberg on 06-12-2024 Globulin (S) [Mass/Vol] Serum globulin measurement by calculation (mass/volume) [facility] Glucose [Mass/volume] in Ser um or PlasmaOrdered By: Adilene Weinberg on 06-12-2024 Glucose [Mass/Vol] 102 mg/dL High 70-100 [facility] Comment on above: ADA recommended refe rence rangeRandom Glucose Reference Range is dependent on time and content of last meal. Glucose of more than 200 mg/dL in a nonstressed, ambulatory subject supports the diagnosis of Diabetes Mellitus. Order Comment: STAT BUN/CREAT FOR CT Result Comment: [place] [facility] Glucose Reference Range is dependent on time and content of last meal. Glucose of more than 200 mg/dL in a nonstressed, ambulatory subject supports the diagnosis of Diabetes Mellitus. ADA recommended reference range Performed By: #### C MP, LDH ####[facility] [address] [place] [id number] [facility] Glucose [Mass/Vol] Glucose [Mass/volume ] in Serum or Plasma High 70-100 [facility] Comment on above: ADA recommended refe rence rangeRandom Glucose Reference Range is dependent on time and content of last meal. Glucose of more than 200 mg/dL in a nonstressed, ambulatory subject supports the diagnosis of Diabetes Mellitus. Hematocrit Auto (Bld) [Volum e fraction]Ordered By: Adilene Weinberg on 06-12-2024 Hematocrit (Bld) [Volume fraction] Hematocrit [Volume Fraction] of Blood by Automated count Low 38.8-50.0 [facility] Hematocrit [Volume Fraction] of Blood by Automated countOrdered By: Adilene Weinberg on 06-12-2024 Hematocrit (Bld) [Volume fraction] 32.6 % Low 38.8-50.0 [facility] Comment on above: Performed By: #### C BC #### [facility] [address] Hemoglobin [Mass/volume] in BloodOrdered By: Adilene Weinberg on 06-12-2024 Hemoglobin (Bld) [Mass/Vol] 11.0 g/dL Low 13.0-17.0 [facility] Comment on above: Performed By: #### C BC #### [facility] [address] Hemoglobin (Bld) [Mass/Vol] Hemoglobin [Mass/volume] in Blood Low 13.0-17.0 [facility] LDH Lactate Dehydrogenaseon 06-12-2024 LDH Lactate Dehydrogenase 211 U/L Normal 140-271 [facility] Comment on above: Order Comment: STAT BUN/CREAT FOR CT Result Comment: PERF ORMED BY: [facility] [address] [place] [address] PATHOLOGIST F[employer]EL OIL CLERK NIYA BARRERA M.D. Performed By: #### C MP, LDH ####[facility] [address] LDH Lactate to pyruvate reac tion [Catalytic activity/Vol]on 06-12-2024 LDH LACTATE DEHYDROGENASE 211 U/L 140 - 271 U/L [facility] Lactate dehydrogenase [Enzym atic activity/volume] in Serum or Plasma by Lactate to pyOrdered By: Adilene Weinberg on 06-12-2024 LDH Lactate to pyruvate reaction [Catalytic activity/Vol] 211 U/L 140-271 [facility] LDH Lactate to pyruvate reaction [Catalytic activity/Vol] Lactate dehydrogenase [Enzymatic activity/volume] in Serum or Plasma by Lactate to py 140-271 [facility] Leukocytes [#/volume] correc bert for nucleated erythrocytes in Blood by Automated counOrdered By: Adilene Weinberg on 06-12-2024 WBC corrected for nucl RBC Auto (Bld) [#/Vol] 4.4 10*3/uL 4.1-10.5 [facility] WBC corrected for nucl RBC Auto (Bld) [#/Vol] Leukocytes [#/volume] corrected for nucleated erythrocytes in Blood by Automated coun 4.1-10.5 [facility] Leukocytes [#/volume] in Blo od by Automated countOrdered By: Adilene Weinberg on 06-12-2024 WBC (Bld) [#/Vol] 4.4 10*3/uL Normal 4.1-10.5 [facility] Comment on above: Performed By: #### C BC #### [address] Lymphocytes Auto (Bld) [#/Vo l]Ordered By: Adilene Weinberg on 06-12-2024 Lymphocytes (Bld) [#/Vol] Lymphocytes [#/volume] in Blood by Automated count 1.00-4.8 [facility] Lymphocytes [#/volume] in Bl ood by Automated countOrdered By: Adilene Weinberg on 06-12-2024 Lymphocytes (Bld) [#/Vol] 1.0 10*3/uL Normal 1.00-4.8 [facility] Comment on above: Performed By: #### C BC #### [address] Lymphocytes/100 WBC Auto (Bl d)Ordered By: Adilene Weinberg on 06-12-2024 Lymphocytes/100 WBC (Bld) Lymphocytes/100 leukocytes in Blood by Automated count . [facility] Lymphocytes/100 leukocytes i n Blood by Automated countOrdered By: Adilene Weinberg on 06-12-2024 Lymphocytes/100 WBC (Bld) 22.4 % Normal . [facility] Comment on above: Performed By: #### C BC #### [facility] [address] [place] [address] MCH Auto (RBC) [Entitic mass ]Ordered By: Adilene Weinberg on 06-12-2024 MCH (RBC) [Entitic mass] MCH [Entitic mass] by Automated count 27.5-35.2 [facility] MCH [Entitic mass] by Automa bert countOrdered By: Adilene Weinberg on 06-12-2024 MCH (RBC) [Entitic mass] 31.6 pg Normal 27.5-35.2 [facility] Comment on above: Performed By: #### C BC #### [facility] [address] [place] [address] MCHC Auto (RBC) [Mass/Vol]Or dered By: Adilene Weinberg on 06-12-2024 MCHC (RBC) [Mass/Vol] 33.9 g/dL 32.5-35.6 [facility] MCHC (RBC) [Mass/Vol] MCHC [Mass/volume] by Automated count 32.5-35.6 [facility] MCV Auto (RBC) [Entitic vol] Ordered By: Adilene Weinberg on 06-12-2024 MCV (RBC) [Entitic vol] MCV [Entitic vol ume] by Automated count 83.5-101 [facility] MCV [Entitic volume] by Auto mated countOrdered By: Adilene Weinberg on 06-12-2024 MCV (RBC) [Entitic vol] 93.4 fL Normal 83.5-101 [facility] Comment on above: Performed By: #### C BC #### [address] Monocytes Auto (Bld) [#/Vol] Ordered By: Adilene Weinberg on 06-12-2024 Monocytes (Bld) [#/Vol] Automated blood monocyte count 0.0-0.8 [facility] Monocytes/100 WBC Auto (Bld) Ordered By: Adilene Weinberg on 06-12-2024 Monocytes/100 WBC (Bld) Automated monocyte % . [facility] Neutrophils Auto (Bld) [#/Vo l]Ordered By: Adilene Weinberg on 06-12-2024 Neutrophils (Bld) [#/Vol] Neutrophils [#/volume] in Blood by Automated count 1.8-7.7 [facility] Neutrophils [#/volume] in Bl ood by Automated countOrdered By: Adilene Weinberg on 06-12-2024 Neutrophils (Bld) [#/Vol] 2.6 10*3/uL Normal 1.8-7.7 [facility] Comment on above: Performed By: #### C BC #### [facility] [address] [place] [address] [place] Neutrophils/100 WBC Auto (Bl d)Ordered By: Adilene Weinberg on 06-12-2024 Neutrophils/100 WBC (Bld) Automated neutrophil % . [facility] No Panel Informationon 06-12 STAT BUN/CREAT FOR CT [facility] No Panel InformationOrdered By: Adilene Weinberg on 06-12-2024 Estimated GFR (CKD-EPI) 59.489 mL/Min [facility] Pharmacy Creatinine Clearance (Chem 46.01 [facility] Nucleated erythrocytes [Pres ence] in Blood by Automated countOrdered By: Adilene Weinebrg on 06-12-2024 Nucleated RBC Auto Ql (Bld) 0.1 /100{WBC} 0-0.5 [facility] Nucleated RBC Auto Ql (Bld) Nucleated erythrocytes [Presence] in Blood by Automated count 0-0.5 [facility] Platelet mean volume Auto (B ld) [Entitic vol]Ordered By: Adilene Weinberg on 06-12-2024 Platelet mean volume (Bld) [Entitic vol] Platelet mean volume [Entitic volume] in Blood by Automated count 6.6-10.1 [facility] Platelet mean volume [Entiti c volume] in Blood by Automated countOrdered By: Adilene Weinberg on 06-12-2024 Platelet mean volume (Bld) [Entitic vol] 8.0 fL Normal 6.6-10.1 [facility] Comment on above: Performed By: #### C BC #### [facility] [address] [place] [address] Platelets Auto (Bld) [#/Vol] Ordered By: Adilene Weinberg on 06-12-2024 Platelets (Bld) [#/Vol] Platelets [#/vol ume] in Blood by Automated count Low 150-450 [facility] Platelets [#/volume] in Bloo d by Automated countOrdered By: Adilene Weinberg on 06-12-2024 Platelets (Bld) [#/Vol] 132 10*3/uL Low 150-450 [facility] Comment on above: Performed By: #### C BC #### [facility] [address] Potassium [Moles/volume] in Serum or PlasmaOrdered By: Adilene Weinberg on 06-12-2024 Potassium [Moles/Vol] 4.1 mmol/L Normal 3.5-5.1 [facility] Comment on above: Order Comment: STAT BUN/CREAT FOR CT Performed By: #### C MP, LDH ####[facility] Potassium [Moles/Vol] Potassium [Moles/volume] in Serum or Plasma 3.5-5.1 [facility] Protein [Mass/volume] in Ser um or PlasmaOrdered By: Adilene Weinberg on 06-12-2024 Protein [Mass/Vol] 6.9 g/dL Normal 6.4-8.9 [facility] Comment on above: Order Comment: STAT BUN/CREAT FOR CT Performed By: #### C MP, LDH ####[address] Protein [Mass/Vol] Protein [Mass/volume ] in Serum or Plasma 6.4-8.9 [facility] RBC Auto (Bld) [#/Vol]Ordere d By: Adilene Weinberg on 06-12-2024 RBC (Bld) [#/Vol] Erythrocytes [#/volume] in Blood by Automated count Low 3.90-5.60 [facility] Serum globulin measurement b y calculation (mass/volume)Ordered By: Adilene Weinberg on 06-12-2024 Globulin (S) [Mass/Vol] 2.4 g/dL Normal [facility] Comment on above: Order Comment: STAT BUN/CREAT FOR CT Performed By: #### C MP, LDH ####[address] Serum or plasma albumin/glob ulin mass ratioOrdered By: Adilene Weinberg on 06-12-2024 Albumin/Globulin [Mass ratio] 1.9 {ratio} Normal [facility] Comment on above: Order Comment: STAT BUN/CREAT FOR CT Performed By: #### C MP, LDH ####[place] [address] [place] [address] [facility] Albumin/Globulin [Mass ratio] Serum or plasma albumin/globulin mass ratio [facility] Serum or plasma anion gap de terminationOrdered By: Adilene Weinberg on 06-12-2024 Anion gap [Moles/Vol] 11.7 mmol/L Normal 6.0-15.0 [facility] Comment on above: Order Comment: STAT BUN/CREAT FOR CT Performed By: #### C MP, LDH ####[place] [address] [place] [address] [facility] Anion gap [Moles/Vol] Serum or plasma an ion gap determination 6.0-15.0 [facility] Sodium [Moles/volume] in Ser um or PlasmaOrdered By: Adilene Weinberg on 06-12-2024 Sodium [Moles/Vol] 138 mmol/L Normal 136-145 [facility] Comment on above: Order Comment: STAT BUN/CREAT FOR CT Performed By: #### C MP, LDH ####[place] [address] [place] [id number] [facility] Sodium [Moles/Vol] Sodium [Moles/volume ] in Serum or Plasma 136-145 [facility] Urea nitrogen [Mass/volume] in Serum or PlasmaOrdered By: Adilene Weinberg on 06-12-2024 Urea nitrogen [Mass/Vol] 21 mg/dL Normal 7- [facility] Comment on above: Order Comment: STAT BUN/CREAT FOR CT Performed By: #### C MP, LDH ####[place] [id number] [facility] Urea nitrogen [Mass/Vol] Urea nitrogen [Mass/volume] in Serum or Plasma 7-25 [facility] WBC Auto (Bld) [#/Vol]Ordere d By: Adilene Weinberg on 06-12-2024 WBC (Bld) [#/Vol] Leukocytes [#/volume ] in Blood by Automated count 4.1-10.5 [facility] Estimated glomerular filtrat ion rate (GFR) non- Americanon 06-07-2024 GFR/1.73 sq M.predicted among non-blacks MDRD (S/P/Bld) [Vol rate/Area] 50 mL/min/{1.73_m2} Low >=60 [facility] Laboratory - Chemistry and C hemistry - challengeon 06-07-2024 Calcium [Mass/Vol] 9.2 mg/dL 8.5-10.1 [facility] Chloride [Moles/Vol] 97 mmol/L Low 98-107 [facility] CO2 [Moles/Vol] 28.8 mmol/L 21.0-32.0 [facility] Creatinine [Mass/Vol] 1.36 mg/dL High 0.70-1.30 [facility] GFR/1.73 sq M.predicted MDRD (S/P/Bld) [Vol rate/Area] mL/min/{1.73_m2} >=60 [facility] Glucose [Mass/Vol] 90 mg/dL 74-106 [facility] Potassium [Moles/Vol] 4.1 mmol/L 3.5-5.1 [facility] Sodium [Moles/Vol] 134 mmol/L Low 136-145 [facility] Urea nitrogen [Mass/Vol] 25.0 mg/dL High 7.0-18.0 [facility] Urea nitrogen/Creatinine [Mass ratio] 18.4 mg/mg [facility] Serum or plasma anion gap de terminationon 06-07-2024 Anion gap [Moles/Vol] 12.3 mmol/L [facility] Ambulatory Visit Summaryon 0 05-22-2024 Ambulatory Visit [...] Cristela WINTER MD Where: [facility] [address] [place] [address]- You Need to Schedule the Following Appointments Follow Up with Cristela WINTER MD, URL When: Comments: 1 yr w/ PSA Where: [facility] [address], [place] [address] [phone] Medications What How Much When Instructions Unchanged [...] as w (more content not included)... Normal [facility] Urology Office/Clinic Noteon 05-22-2024 Urology Office/Clinic Note [...] [facility] [address], [place] [address] [phone] Additional Instructions: 1 yr w/ PSA Patient [...] (COVID-19) mRNA-1273 vaccine 12/09/2020 Recorded Normal [facility] Comment on above: Result Comment: Elec tronically Signed By: Cristela WINTER MD\.br\Date and Time Signed: 05/22/24 09:22 EDT\.br\Electronically Co-Signed By: Linda Izquierdo\.br\Date and Time Co-Signed: 05/22/24 09:21 EDT No Panel Informationon 05-10 Prostate Specific Antigen Total <0.13 ng/mL <=4.00 [facility] Basophils Auto (Bld) [#/Vol] on 04-20-2024 Basophils (Bld) [#/Vol] 0.1 10 3/uL 0.0-0.1 [facility] Basophils/100 WBC Auto (Bld) on 04-20-2024 Basophils/100 WBC (Bld) 1.4 % 0.2-2.0 [facility] Eosinophils/100 WBC Auto (Bl d)on 04-20-2024 Eosinophils/100 WBC (Bld) 3.3 % 0.9-7.0 [facility] Erythrocyte distribution wid th Auto (RBC) [Ratio]on 04-20-2024 Erythrocyte distribution width (RBC) [Ratio] 13.7 % 11.0-15.0 [facility] Hematocrit Auto (Bld) [Volum e fraction]on 04-20-2024 Hematocrit (Bld) [Volume fraction] 32.0 % Low 42.0-54.0 [facility] Hemoglobin [Mass/volume] in Bloodon 04-20-2024 Hemoglobin (Bld) [Mass/Vol] 10.0 g/dL Low 14.0-18.0 [facility] Iron binding capacity [Mass/ volume] in Serum or Plasmaon 04-20-2024 Iron binding capacity [Mass/Vol] 264.0 ug/dL 250.0-450.0 [facility] Iron saturation [Mass Fracti on] in Serum or Plasmaon 04-20-2024 Iron saturation [Mass fraction] 22.3 % [facility] Laboratory - Chemistry and C hemistry - challengeon 04-20-2024 Cobalamin (Vitamin B12) [Mass/Vol] 1273.0 pg/mL High 193.0-986.0 [facility] Ferritin [Mass/Vol] 122.0 ng/mL 26.0-388.0 [facility] Iron [Mass/Vol] 59.0 ug/dL Low 65.0-175.0 [facility] Laboratory - Hematology and Cell countson 04-20-2024 Immature granulocytes/100 WBC (Bld) 0.2 % 0.0-0.5 [facility] Leukocytes [#/volume] correc bert for nucleated erythrocytes in Blood by Automated counon 04-20-2024 WBC corrected for nucl RBC Auto (Bld) [#/Vol] 4.2 10 3/uL 4.0-11.0 [facility] Lymphocytes Auto (Bld) [#/Vo l]on 04-20-2024 Lymphocytes (Bld) [#/Vol] 1.0 10 3/uL Low 1.2-3.8 [facility] Lymphocytes/100 WBC Auto (Bl d)on 04-20-2024 Lymphocytes/100 WBC (Bld) 23.6 % 20.5-60.0 [facility] MCH Auto (RBC) [Entitic mass ]on 04-20-2024 MCH (RBC) [Entitic mass] 31.1 pg 25.9-34.0 [facility] MCHC Auto (RBC) [Mass/Vol]on 04-20-2024 MCHC (RBC) [Mass/Vol] 31.3 g/dL 29.9-35.2 [facility] MCV Auto (RBC) [Entitic vol] on 04-20-2024 MCV (RBC) [Entitic vol] 99.4 fL High 80.0-94.0 [facility] Monocytes Auto (Bld) [#/Vol] on 04-20-2024 Monocytes (Bld) [#/Vol] 0.6 10 3/uL 0.3-0.8 [facility] Monocytes/100 WBC Auto (Bld) on 04-20-2024 Monocytes/100 WBC (Bld) 13.7 % High 1.7-12.0 [facility] Neutrophils Auto (Bld) [#/Vo l]on 04-20-2024 Neutrophils (Bld) [#/Vol] 2.5 10 3/uL 1.4-6.5 [facility] Neutrophils/100 WBC Auto (Bl d)on 04-20-2024 Neutrophils/100 WBC (Bld) 57.8 % 43.0-75.0 [facility] No Panel Informationon 04-20 Eosinophils # (Auto) 0.1 10 3/uL 0.0-0.7 [facility] Folate 10.10 ng/mL 8.60-58.90 [facility] Immature Granulocyte # (Auto) 0.01 10 3/uL 0.00-0.03 [facility] Platelet mean volume Auto (B ld) [Entitic vol]on 04-20-2024 Platelet mean volume (Bld) [Entitic vol] 9.9 fL 9.5-13.5 [facility] Platelets Auto (Bld) [#/Vol] on 04-20-2024 Platelets (Bld) [#/Vol] 110 10 3/uL Low 150-450 [facility] RBC Auto (Bld) [#/Vol]on RBC (Bld) [#/Vol] 3.22 10 6/uL Low 4.70-6.10 [facility] Alanine aminotransferase [En zymatic activity/volume] in Serum or PlasmaOrdered By: Adilene Weinberg on 03-14-2024 ALT [Catalytic activity/Vol] 18 U/L 7-52 [facility] Albumin [Mass/volume] in Ser um or Plasma by Bromocresol green (BCG) dye binding methoOrdered By: Adilene Weinberg on 03-14-2024 Albumin BCG dye [Mass/Vol] 4.3 g/dL 3.5-5.7 [facility] Alkaline phosphatase [Enzyma tic activity/volume] in Serum or PlasmaOrdered By: Adilene Weinberg on 03-14-2024 ALP [Catalytic activity/Vol] 85 U/L 34-104 [facility] Aspartate aminotransferase [ Enzymatic activity/volume] in Serum or PlasmaOrdered By: Adilene Weinberg on 03-14-2024 AST [Catalytic activity/Vol] 17 U/L 13-39 [facility] Basophils Auto (Bld) [#/Vol] Ordered By: Adilene Weinberg on 03-14-2024 Basophils (Bld) [#/Vol] 0.0 10*3/uL 0.0-0.2 [facility] Basophils/100 WBC Auto (Bld) Ordered By: Adilene Weinberg on 03-14-2024 Basophils/100 WBC (Bld) 0.8 % . [facility] Bilirubin.total [Mass/volume ] in Serum or PlasmaOrdered By: Adilene Weinberg on 03-14-2024 Bilirubin [Mass/Vol] 0.6 mg/dL 0.3-1.0 [facility] Calcium [Mass/volume] in Ser um or PlasmaOrdered By: Adilene Weinberg on 03-14-2024 Calcium [Mass/Vol] 9.4 mg/dL 8.6-10.3 [facility] Carbon dioxide, total [Moles /volume] in Serum or PlasmaOrdered By: Adilene Weinberg on 03-14-2024 CO2 [Moles/Vol] 31.8 mmol/L High 21.0-31.0 [facility] [place] [facility] Chloride [Moles/volume] in S boby or PlasmaOrdered By: Adilene Weinberg on 03-14-2024 Chloride [Moles/Vol] 105 mmol/L 98-107 [facility] Creatinine [Mass/volume] in Serum or PlasmaOrdered By: Adilene Weinberg on 03-14-2024 Creatinine [Mass/Vol] 1.06 mg/dL 0.70-1.30 [facility] Eosinophils Auto (Bld) [#/Vo l]Ordered By: Adilene Weinberg on 03-14-2024 Eosinophils (Bld) [#/Vol] 0.1 10*3/uL 0.0-0.45 [facility] Eosinophils/100 WBC Auto (Bl d)Ordered By: Adilene Weinberg on 03-14-2024 Eosinophils/100 WBC (Bld) 2.1 % . [facility] Erythrocyte distribution wid th Auto (RBC) [Ratio]Ordered By: Adilene Weinberg on 03-14-2024 Erythrocyte distribution width (RBC) [Ratio] 15.4 % High 12.0-14.8 [facility] Globulin Calc (S) [Mass/Vol] Ordered By: Adilene Weinberg on 03-14-2024 Globulin (S) [Mass/Vol] 2.0 g/dL [facility] Glucose [Mass/volume] in Ser um or PlasmaOrdered By: Adilene Weinberg on 03-14-2024 Glucose [Mass/Vol] 89 mg/dL 70-100 [facility] Comment on above: ADA recommended refe rence rangeRandom Glucose Reference Range is dependent on time and content of last meal. Glucose of more than 200 mg/dL in a nonstressed, ambulatory subject supports the diagnosis of Diabetes Mellitus. Hematocrit Auto (Bld) [Volum e fraction]Ordered By: Adilene Weinberg on 03-14-2024 Hematocrit (Bld) [Volume fraction] 28.8 % Low 38.8-50.0 [facility] Hemoglobin [Mass/volume] in BloodOrdered By: Adilene Weinberg on 03-14-2024 Hemoglobin (Bld) [Mass/Vol] 9.8 g/dL Low 13.0-17.0 [facility] Lactate dehydrogenase [Enzym atic activity/volume] in Serum or Plasma by Lactate to pyOrdered By: Adilene Weinberg on 03-14-2024 LDH Lactate to pyruvate reaction [Catalytic activity/Vol] 205 U/L 140-271 [facility] Leukocytes [#/volume] correc bert for nucleated erythrocytes in Blood by Automated counOrdered By: Adilene Weinberg on 03-14-2024 WBC corrected for nucl RBC Auto (Bld) [#/Vol] 6.0 10*3/uL 4.1-10.5 [facility] Lymphocytes Auto (Bld) [#/Vo l]Ordered By: Adilene Weinberg on 03-14-2024 Lymphocytes (Bld) [#/Vol] 0.7 10*3/uL Low 1.00-4.8 [facility] Lymphocytes/100 WBC Auto (Bl d)Ordered By: Adilene Weinberg on 03-14-2024 Lymphocytes/100 WBC (Bld) 11.7 % . [facility] MCH Auto (RBC) [Entitic mass ]Ordered By: Adilene Weinberg on 03-14-2024 MCH (RBC) [Entitic mass] 31.4 pg 27.5-35.2 [facility] MCHC Auto (RBC) [Mass/Vol]Or dered By: Adilene Weinberg on 03-14-2024 MCHC (RBC) [Mass/Vol] 34.0 g/dL 32.5-35.6 [facility] MCV Auto (RBC) [Entitic vol] Ordered By: Adilene Weinberg on 03-14-2024 MCV (RBC) [Entitic vol] 92.2 fL 83.5-101 [facility] Monocytes Auto (Bld) [#/Vol] Ordered By: Adilene Weinberg on 03-14-2024 Monocytes (Bld) [#/Vol] 0.8 10*3/uL 0.0-0.8 [facility] Monocytes/100 WBC Auto (Bld) Ordered By: Adilene Weinberg on 03-14-2024 Monocytes/100 WBC (Bld) 12.8 % . [facility] Neutrophils Auto (Bld) [#/Vo l]Ordered By: Adilene Weinberg on 03-14-2024 Neutrophils (Bld) [#/Vol] 4.3 10*3/uL 1.8-7.7 [facility] Neutrophils/100 WBC Auto (Bl d)Ordered By: Adilene Weinberg on 03-14-2024 Neutrophils/100 WBC (Bld) 72.6 % . [facility] No Panel InformationOrdered By: Adilene Weinberg on 03-14-2024 Estimated GFR (CKD-EPI) > 60.0 mL/Min [facility] Creatinine Clearance (Chem 51.65 [facility] Nucleated erythrocytes [Pres ence] in Blood by Automated countOrdered By: Adilene Weinberg on 03-14-2024 Nucleated RBC Auto Ql (Bld) 0.1 /100{WBC} 0-0.5 [facility] Platelet mean volume Auto (B ld) [Entitic vol]Ordered By: Adilene Weinberg on 03-14-2024 Platelet mean volume (Bld) [Entitic vol] 8.1 fL 6.6-10.1 [facility] Platelets Auto (Bld) [#/Vol] Ordered By: Adilene Weinberg on 03-14-2024 Platelets (Bld) [#/Vol] 145 10*3/uL Low 150-450 [facility] Potassium [Moles/volume] in Serum or PlasmaOrdered By: Adilene Méndezse on 03-14-2024 Potassium [Moles/Vol] 3.9 mmol/L 3.5-5.1 [facility] Protein [Mass/volume] in Ser um or PlasmaOrdered By: Adilene Lenard on 03-14-2024 Protein [Mass/Vol] 6.3 g/dL Low 6.4-8.9 [facility] RBC Auto (Bld) [#/Vol]Ordere d By: Adilene Méndezse on 03-14-2024 RBC (Bld) [#/Vol] 3.12 10*6/uL Low 3.90-5.60 [facility] Serum or plasma albumin/glob ulin mass ratioOrdered By: Adilene Weinberg on 03-14-2024 Albumin/Globulin [Mass ratio] 2.2 {ratio} [facility] Serum or plasma anion gap de terminationOrdered By: Adilene Weinberg on 03-14-2024 Anion gap [Moles/Vol] 8.1 mmol/L 6.0-15.0 [facility] Sodium [Moles/volume] in Ser um or PlasmaOrdered By: Adilene Méndezse on 03-14-2024 Sodium [Moles/Vol] 141 mmol/L 136-145 [facility] Urea nitrogen [Mass/volume] in Serum or PlasmaOrdered By: Adilene Lenard on 03-14-2024 Urea nitrogen [Mass/Vol] 14 mg/dL 04-27 [facility] WBC Auto (Bld) [#/Vol]Ordere d By: Adilene Lenard on 03-14-2024 WBC (Bld) [#/Vol] 6.0 10*3/uL 4.1-10.5 [facility] Alanine aminotransferase [En zymatic activity/volume] in Serum or PlasmaOrdered By: Michele Arteaga on 12-27-2023 ALT [Catalytic activity/Vol] 30 U/L [facility] Albumin [Mass/volume] in Ser um or Plasma by Bromocresol green (BCG) dye binding methoOrdered By: Michele Arteaga on 12-27-2023 Albumin BCG dye [Mass/Vol] 4.5 g/dL 3.5-5.7 [facility] Alkaline phosphatase [Enzyma tic activity/volume] in Serum or PlasmaOrdered By: Michele Arteaga on 12-27-2023 ALP [Catalytic activity/Vol] 74 U/L 34-104 [facility] Aspartate aminotransferase [ Enzymatic activity/volume] in Serum or PlasmaOrdered By: Michele Arteaga on 12-27-2023 AST [Catalytic activity/Vol] 24 U/L 13-39 [facility] Basophils Auto (Bld) [#/Vol] Ordered By: Michele Arteaga on 12-27-2023 Basophils (Bld) [#/Vol] 0.0 10*3/uL 0.0-0.2 [facility] Basophils/100 WBC Auto (Bld) Ordered By: Michele Arteaga on 12-27-2023 Basophils/100 WBC (Bld) 0.9 % . [facility] Bilirubin.direct [Mass/volum e] in Serum or PlasmaOrdered By: Michele Arteaga on 12-27-2023 Bilirubin.direct [Mass/Vol] 0.20 mg/dL 0.03-0.18 [facility] Bilirubin.total [Mass/volume ] in Serum or PlasmaOrdered By: Michele Arteaga on 12-27-2023 Bilirubin [Mass/Vol] 0.7 mg/dL 0.3-1.0 [facility] Creatinine [Mass/volume] in Serum or PlasmaOrdered By: Michele Arteaga on 12-27-2023 Creatinine [Mass/Vol] 1.08 mg/dL 0.70-1.30 [facility] Eosinophils Auto (Bld) [#/Vo l]Ordered By: Michele Arteaga on 12-27-2023 Eosinophils (Bld) [#/Vol] 0.1 10*3/uL 0.0-0.45 [facility] Eosinophils/100 WBC Auto (Bl d)Ordered By: Michele Arteaga on 12-27-2023 Eosinophils/100 WBC (Bld) 1.9 % . [facility] Erythrocyte distribution wid th Auto (RBC) [Ratio]Ordered By: Michele Arteaga on 12-27-2023 Erythrocyte distribution width (RBC) [Ratio] 14.8 % 12.0-14.8 [facility] Erythrocyte sedimentation ra te by Photometric methodOrdered By: Michele Arteaga on 12-27-2023 ESR Photometric method (Bld) [Velocity] 11 mm/hr 0-19 [facility] Globulin Calc (S) [Mass/Vol] Ordered By: Michele Arteaga on 12-27-2023 Globulin (S) [Mass/Vol] 1.5 g/dL [facility] Hematocrit Auto (Bld) [Volum e fraction]Ordered By: Michele Arteaga on 12-27-2023 Hematocrit (Bld) [Volume fraction] 32.1 % 38.8-50.0 [facility] Hemoglobin [Mass/volume] in BloodOrdered By: Michele Arteaga on 12-27-2023 Hemoglobin (Bld) [Mass/Vol] 10.5 g/dL 13.0-17.0 [facility] Leukocytes [#/volume] correc bert for nucleated erythrocytes in Blood by Automated counOrdered By: Michele Arteaga on 12-27-2023 WBC corrected for nucl RBC Auto (Bld) [#/Vol] 4.9 10*3/uL 4.1-10.5 [facility] Lymphocytes Auto (Bld) [#/Vo l]Ordered By: Michele Arteaga on 12-27-2023 Lymphocytes (Bld) [#/Vol] 0.8 10*3/uL 1.00-4.8 [facility] Lymphocytes/100 WBC Auto (Bl d)Ordered By: Michele Arteaga on 12-27-2023 Lymphocytes/100 WBC (Bld) 17.1 % . [facility] MCH Auto (RBC) [Entitic mass ]Ordered By: Michele Arteaga on 12-27-2023 MCH (RBC) [Entitic mass] 30.3 pg 27.5-35.2 [facility] MCHC Auto (RBC) [Mass/Vol]Or dered By: Michele Arteaga on 12-27-2023 MCHC (RBC) [Mass/Vol] 32.9 g/dL 32.5-35.6 [facility] MCV Auto (RBC) [Entitic vol] Ordered By: Michele Arteaga on 12-27-2023 MCV (RBC) [Entitic vol] 92.2 fL 83.5-101 [facility] Monocytes Auto (Bld) [#/Vol] Ordered By: Michele Arteaga on 12-27-2023 Monocytes (Bld) [#/Vol] 0.5 10*3/uL 0.0-0.8 [facility] Monocytes/100 WBC Auto (Bld) Ordered By: Michele Arteaga on 12-27-2023 Monocytes/100 WBC (Bld) 11.0 % . [facility] Neutrophils Auto (Bld) [#/Vo l]Ordered By: Michele Arteaga on 12-27-2023 Neutrophils (Bld) [#/Vol] 3.4 10*3/uL 1.8-7.7 [facility] Neutrophils/100 WBC Auto (Bl d)Ordered By: Michele Arteaga on 12-27-2023 Neutrophils/100 WBC (Bld) 69.1 % . [facility] No Panel InformationOrdered By: Michele Arteaga on 12-27-2023 Estimated GFR (CKD-EPI) > 60.0 mL/Min [facility] Creatinine Clearance (Chem N/A [facility] Nucleated erythrocytes [Pres ence] in Blood by Automated countOrdered By: Michele Arteaga on 12-27-2023 Nucleated RBC Auto Ql (Bld) 0.1 /100{WBC} 0-0.5 [facility] Platelet mean volume Auto (B ld) [Entitic vol]Ordered By: Michele Arteaga on 12-27-2023 Platelet mean volume (Bld) [Entitic vol] 8.8 fL 6.6-10.1 [facility] Platelets Auto (Bld) [#/Vol] Ordered By: Michele Arteaga on 12-27-2023 Platelets (Bld) [#/Vol] 127 10*3/uL 150-450 [facility] Protein [Mass/volume] in Ser um or PlasmaOrdered By: Michele Arteaga on 12-27-2023 Protein [Mass/Vol] 6.0 g/dL 6.4-8.9 [facility] RBC Auto (Bld) [#/Vol]Ordere d By: Michele Arteaga on 12-27-2023 RBC (Bld) [#/Vol] 3.48 10*6/uL 3.90-5.60 [facility] Serum or plasma albumin/glob ulin mass ratioOrdered By: Michele Arteaga on 12-27-2023 Albumin/Globulin [Mass ratio] 3.0 {ratio} [facility] Serum or plasma non-glucuron idated bilirubin measurement (mass/volume)Ordered By: Michele Arteaga on 12-27-2023 Bilirubin.indirect [Mass/Vol] 0.5 mg/dL [facility] WBC Auto (Bld) [#/Vol]Ordere d By: Michele Arteaga on 12-27-2023 WBC (Bld) [#/Vol] 4.9 10*3/uL 4.1-10.5 [facility] Creatinine (Bld) [Mass/Vol]O rdered By: Adilene Weinberg on 11-29-2023 Creatinine [Mass/Vol] 1.3 mg/dL 0.6-1.3 [facility] Comment on above: ER/ESD physician is notified/shown all ISTAT results.Critical values may be confirmed by laboratory testing ifdeemed necessary by ER attending doctor. Creatinine [Mass/Vol] Whole blood creatinine measurement 0.6-1.3 [facility] Comment on above: ER/ESD physician is notified/shown all ISTAT results.Critical values may be confirmed by laboratory testing ifdeemed necessary by ER attending doctor. No Panel InformationOrdered By: Adilene Weinberg on 11-29-2023 Bedside Estimated GFR (eGFR) 53.501 [facility] Glucose Glucometer (BldC) [M ass/Vol]Ordered By: Elkin Holly on 11-19-2023 Glucose [Mass/Vol] 88 mg/dL [facility] Comment on above: Random Glucose Refer ence Range is dependent on time and content of last meal. Glucose of more than 200 mg/dL in a nonstressed, ambulatory subject supports the diagnosis of Diabetes Mellitus. NM Lymphatic vessels Views W radionuclide intra lymphaticon 10-28-2023 Successful sentinel lymph node localization to the right pre-auricular lymph node. [employer] localizing images were sent to PACS. I personally reviewed the images/study and I agree with the findings as stated by Nuclear Medicine fellow Ruthann Lee MD. This study was interpreted at [facility], [place], [place]. 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 COMPARISON: None. ACCESSION NUMBER(S): [id number] ORDERING CLINICIAN: ELKIN HOLLY TECHNIQUE: DIVISION OF [...] and localized images [facility]ACS. 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 COMPARISON: None. ACCESSION NUMBER(S): [id number] ORDERING CLINICIAN: ELKIN HOLLY TECHNIQUE: DIVISION OF [...] localization to the right pre-auricular lymph node. [employer] localizing images were sent to PACS. I personally reviewed the images/study and I agree with the findings as stated by Nuclear Medicine fellow Ruthann Lee MD. This study was interpreted at [place], [place]. MACRO: None Signed by: Michele Sweeney 10/28/2023 12:48 PM Dictation workstation: [id number] [facility] Work Phone: Radiology Study observation (narrative) [facility] Work Phone: NM Lymphatic vessels Views W radionuclide intra lymphaticOrdered By: Michele Sweeney on 10-28-2023 [facility] Work Phone: Alanine aminotransferase [En zymatic activity/volume] in Serum or PlasmaOrdered By: Michele Arteaga on 07-19-2023 ALT [Catalytic activity/Vol] 32 U/L 7-52 [facility] Albumin [Mass/volume] in Ser um or Plasma by Bromocresol green (BCG) dye binding methoOrdered By: Michele Arteaga on 07-19-2023 Albumin BCG dye [Mass/Vol] 4.1 g/dL 3.5-5.7 [facility] Alkaline phosphatase [Enzyma tic activity/volume] in Serum or PlasmaOrdered By: Michele Arteaga on 07-19-2023 ALP [Catalytic activity/Vol] 63 U/L 34-104 [facility] Aspartate aminotransferase [ Enzymatic activity/volume] in Serum or PlasmaOrdered By: Michele Arteaga on 07-19-2023 AST [Catalytic activity/Vol] 22 U/L 13-39 [facility] Basophils Auto (Bld) [#/Vol] Ordered By: Michele Arteaga on 07-19-2023 Basophils (Bld) [#/Vol] 0.0 10*3/uL 0.0-0.2 [facility] Basophils/100 WBC Auto (Bld) Ordered By: Michele Arteaga on 07-19-2023 Basophils/100 WBC (Bld) 0.7 % . [facility] Bilirubin.direct [Mass/volum e] in Serum or PlasmaOrdered By: Michele Arteaga on 07-19-2023 Bilirubin.direct [Mass/Vol] 0.10 mg/dL 0.03-0.18 [facility] Bilirubin.total [Mass/volume ] in Serum or PlasmaOrdered By: Michele Arteaga on 07-19-2023 Bilirubin [Mass/Vol] 0.6 mg/dL 0.3-1.0 [facility] Creatinine [Mass/volume] in Serum or PlasmaOrdered By: Michele Arteaga on 07-19-2023 Creatinine [Mass/Vol] 1.09 mg/dL 0.70-1.30 [facility] Eosinophils Auto (Bld) [#/Vo l]Ordered By: Michele Arteaga on 07-19-2023 Eosinophils (Bld) [#/Vol] 0.0 10*3/uL 0.0-0.45 [facility] Eosinophils/100 WBC Auto (Bl d)Ordered By: Michele Arteaga on 07-19-2023 Eosinophils/100 WBC (Bld) 0.9 % . [facility] Erythrocyte distribution wid th Auto (RBC) [Ratio]Ordered By: Michele Arteaga on 07-19-2023 Erythrocyte distribution width (RBC) [Ratio] 14.6 % 12.0-14.8 [facility] Erythrocyte sedimentation ra te by Photometric methodOrdered By: Michele Arteaga on 07-19-2023 ESR Photometric method (Bld) [Velocity] 5 mm/hr 0-19 [facility] Globulin Calc (S) [Mass/Vol] Ordered By: Michele Arteaga on 07-19-2023 Globulin (S) [Mass/Vol] 1.7 g/dL [facility] Hematocrit Auto (Bld) [Volum e fraction]Ordered By: Michele Arteaga on 07-19-2023 Hematocrit (Bld) [Volume fraction] 31.9 % 38.8-50.0 [facility] Hemoglobin [Mass/volume] in BloodOrdered By: Michele Arteaga on 07-19-2023 Hemoglobin (Bld) [Mass/Vol] 11.0 g/dL 13.0-17.0 [facility] Leukocytes [#/volume] correc bert for nucleated erythrocytes in Blood by Automated counOrdered By: Michele Arteaga on 07-19-2023 WBC corrected for nucl RBC Auto (Bld) [#/Vol] 4.2 10*3/uL 4.1-10.5 [facility] Lymphocytes Auto (Bld) [#/Vo l]Ordered By: Michele Arteaga on 07-19-2023 Lymphocytes (Bld) [#/Vol] 0.7 10*3/uL 1.00-4.8 [facility] Lymphocytes/100 WBC Auto (Bl d)Ordered By: Michele Arteaga on 07-19-2023 Lymphocytes/100 WBC (Bld) 16.1 % . [facility] MCH Auto (RBC) [Entitic mass ]Ordered By: Michele Arteaga on 07-19-2023 MCH (RBC) [Entitic mass] 32.2 pg 27.5-35.2 [facility] MCHC Auto (RBC) [Mass/Vol]Or dered By: Michele Arteaga on 07-19-2023 MCHC (RBC) [Mass/Vol] 34.4 g/dL 32.5-35.6 [facility] MCV Auto (RBC) [Entitic vol] Ordered By: Michele Arteaga on 07-19-2023 MCV (RBC) [Entitic vol] 93.7 fL 83.5-101 [facility] Monocytes Auto (Bld) [#/Vol] Ordered By: Michele Arteaga on 07-19-2023 Monocytes (Bld) [#/Vol] 0.5 10*3/uL 0.0-0.8 [facility] Monocytes/100 WBC Auto (Bld) Ordered By: Michele Arteaga on 07-19-2023 Monocytes/100 WBC (Bld) 11.2 % . [facility] Neutrophils Auto (Bld) [#/Vo l]Ordered By: Michele Arteaga on 07-19-2023 Neutrophils (Bld) [#/Vol] 3.0 10*3/uL 1.8-7.7 [facility] Neutrophils/100 WBC Auto (Bl d)Ordered By: Michele Arteaga on 07-19-2023 Neutrophils/100 WBC (Bld) 71.1 % . [facility] No Panel InformationOrdered By: Michele Arteaga on 07-19-2023 Estimated GFR (CKD-EPI) > 60.0 mL/Min [facility] Creatinine Clearance (Chem N/A [facility] Nucleated erythrocytes [Pres ence] in Blood by Automated countOrdered By: Michele Arteaga on 07-19-2023 Nucleated RBC Auto Ql (Bld) 0.2 /100{WBC} 0-0.5 [facility] Platelet mean volume Auto (B ld) [Entitic vol]Ordered By: Michele Arteaga on 07-19-2023 Platelet mean volume (Bld) [Entitic vol] 8.5 fL 6.6-10.1 [facility] Platelets Auto (Bld) [#/Vol] Ordered By: Michele Arteaga on 07-19-2023 Platelets (Bld) [#/Vol] 123 10*3/uL 150-450 [facility] Protein [Mass/volume] in Ser um or PlasmaOrdered By: Michele Arteaga on 07-19-2023 Protein [Mass/Vol] 5.8 g/dL 6.4-8.9 [facility] RBC Auto (Bld) [#/Vol]Ordere d By: Michele Arteaga on 07-19-2023 RBC (Bld) [#/Vol] 3.40 10*6/uL 3.90-5.60 [facility] Serum or plasma albumin/glob ulin mass ratioOrdered By: Michele Arteaga on 07-19-2023 Albumin/Globulin [Mass ratio] 2.4 {ratio} [facility] Serum or plasma non-glucuron idated bilirubin measurement (mass/volume)Ordered By: Michele Arteaga on 07-19-2023 Bilirubin.indirect [Mass/Vol] 0.5 mg/dL [facility] WBC Auto (Bld) [#/Vol]Ordere d By: Michele Arteaga on 07-19-2023 WBC (Bld) [#/Vol] 4.2 10*3/uL 4.1-10.5 [facility] Alanine aminotransferase [En zymatic activity/volume] in Serum or PlasmaOrdered By: Michele Arteaga on 03-23-2023 ALT [Catalytic activity/Vol] 23 U/L 7-52 [facility] Albumin [Mass/volume] in Ser um or Plasma by Bromocresol green (BCG) dye binding methoOrdered By: Michele Arteaga on 03-23-2023 Albumin BCG dye [Mass/Vol] 4.4 g/dL 3.5-5.7 [facility] Alkaline phosphatase [Enzyma tic activity/volume] in Serum or PlasmaOrdered By: Michele Arteaga on 03-23-2023 ALP [Catalytic activity/Vol] 88 U/L 34-104 [facility] Aspartate aminotransferase [ Enzymatic activity/volume] in Serum or PlasmaOrdered By: Michele Arteaga on 03-23-2023 AST [Catalytic activity/Vol] 20 U/L 13-39 [facility] Basophils Auto (Bld) [#/Vol] Ordered By: Michele Arteaga on 03-23-2023 Basophils (Bld) [#/Vol] 0.0 10*3/uL 0.0-0.2 [facility] Basophils/100 WBC Auto (Bld) Ordered By: Michele Arteaga on 03-23-2023 Basophils/100 WBC (Bld) 0.8 % . [facility] Bilirubin.direct [Mass/volum e] in Serum or PlasmaOrdered By: Michele Arteaga on 03-23-2023 Bilirubin.direct [Mass/Vol] 0.20 mg/dL 0.03-0.18 [facility] Bilirubin.total [Mass/volume ] in Serum or PlasmaOrdered By: Michele Arteaga on 03-23-2023 Bilirubin [Mass/Vol] 0.7 mg/dL 0.3-1.0 [facility] Creatinine [Mass/volume] in Serum or PlasmaOrdered By: Michele Arteaga on 03-23-2023 Creatinine [Mass/Vol] 1.10 mg/dL 0.70-1.30 [facility] Eosinophils Auto (Bld) [#/Vo l]Ordered By: Michele Arteaga on 03-23-2023 Eosinophils (Bld) [#/Vol] 0.1 10*3/uL 0.0-0.45 [facility] Eosinophils/100 WBC Auto (Bl d)Ordered By: Michele Arteaga on 03-23-2023 Eosinophils/100 WBC (Bld) 1.3 % . [facility] Erythrocyte distribution wid th Auto (RBC) [Ratio]Ordered By: Michele Arteaga on 03-23-2023 Erythrocyte distribution width (RBC) [Ratio] 14.8 % 12.0-14.8 [facility] Erythrocyte sedimentation ra te by Photometric methodOrdered By: Michele Arteaga on 03-23-2023 ESR Photometric method (Bld) [Velocity] 21 mm/hr 0-19 [facility] Globulin Calc (S) [Mass/Vol] Ordered By: Michele Arteaga on 03-23-2023 Globulin (S) [Mass/Vol] 1.8 g/dL [facility] Hematocrit Auto (Bld) [Volum e fraction]Ordered By: Michele Arteaga on 03-23-2023 Hematocrit (Bld) [Volume fraction] 30.1 % 38.8-50.0 [facility] Hemoglobin [Mass/volume] in BloodOrdered By: Michele Arteaga on 03-23-2023 Hemoglobin (Bld) [Mass/Vol] 10.3 g/dL 13.0-17.0 [facility] Leukocytes [#/volume] correc bert for nucleated erythrocytes in Blood by Automated counOrdered By: Michele Arteaga on 03-23-2023 WBC corrected for nucl RBC Auto (Bld) [#/Vol] 5.9 10*3/uL 4.1-10.5 [facility] Lymphocytes Auto (Bld) [#/Vo l]Ordered By: Michele Arteaga on 03-23-2023 Lymphocytes (Bld) [#/Vol] 0.7 10*3/uL 1.00-4.8 [facility] Lymphocytes/100 WBC Auto (Bl d)Ordered By: Michele Arteaga on 03-23-2023 Lymphocytes/100 WBC (Bld) 12.4 % . [facility] MCH Auto (RBC) [Entitic mass ]Ordered By: Michele Arteaga on 03-23-2023 MCH (RBC) [Entitic mass] 32.1 pg 27.5-35.2 [facility] MCHC Auto (RBC) [Mass/Vol]Or dered By: Michele Arteaga on 03-23-2023 MCHC (RBC) [Mass/Vol] 34.2 g/dL 32.5-35.6 [facility] MCV Auto (RBC) [Entitic vol] Ordered By: Michele Arteaga on 03-23-2023 MCV (RBC) [Entitic vol] 93.8 fL 83.5-101 [facility] Monocytes Auto (Bld) [#/Vol] Ordered By: Michele Arteaag on 03-23-2023 Monocytes (Bld) [#/Vol] 0.7 10*3/uL 0.0-0.8 [facility] Monocytes/100 WBC Auto (Bld) Ordered By: Michele Arteaga on 03-23-2023 Monocytes/100 WBC (Bld) 12.3 % . [facility] Neutrophils Auto (Bld) [#/Vo l]Ordered By: Michele Arteaga on 03-23-2023 Neutrophils (Bld) [#/Vol] 4.3 10*3/uL 1.8-7.7 [facility] Neutrophils/100 WBC Auto (Bl d)Ordered By: Michele Arteaga on 03-23-2023 Neutrophils/100 WBC (Bld) 73.2 % . [facility] No Panel InformationOrdered By: Michele Arteaga on 03-23-2023 Estimated GFR (CKD-EPI) > 60.0 mL/Min [facility] Pharmacy Creatinine Clearance (Chem N/A [facility] Nucleated erythrocytes [Pres ence] in Blood by Automated countOrdered By: Michele Arteaga on 03-23-2023 Nucleated RBC Auto Ql (Bld) 0.1 /100{WBC} 0-0.5 [facility] Platelet mean volume Auto (B ld) [Entitic vol]Ordered By: Michele Arteaga on 03-23-2023 Platelet mean volume (Bld) [Entitic vol] 8.2 fL 6.6-10.1 [facility] Platelets Auto (Bld) [#/Vol] Ordered By: Michele Arteaga on 03-23-2023 Platelets (Bld) [#/Vol] 162 10*3/uL 150-450 [facility] Protein [Mass/volume] in Ser um or PlasmaOrdered By: Michele Arteaga on 03-23-2023 Protein [Mass/Vol] 6.2 g/dL 6.4-8.9 [facility] RBC Auto (Bld) [#/Vol]Ordere d By: Michele Arteaga on 03-23-2023 RBC (Bld) [#/Vol] 3.21 10*6/uL 3.90-5.60 [facility] Serum or plasma albumin/glob ulin mass ratioOrdered By: Michele Arteaga on 03-23-2023 Albumin/Globulin [Mass ratio] 2.4 {ratio} [facility] Serum or plasma non-glucuron idated bilirubin measurement (mass/volume)Ordered By: Michele Arteaga on 03-23-2023 Bilirubin.indirect [Mass/Vol] 0.5 mg/dL [facility] WBC Auto (Bld) [#/Vol]Ordere d By: Michele Arteaga on 03-23-2023 WBC (Bld) [#/Vol] 5.9 10*3/uL 4.1-10.5 [facility] Covid-19 PCR (CVDTBH)on 01-03 SARS-CoV-2 (COVID-19) RNA JOSEMANUEL+probe Ql (Unsp spec) Not detected Normal NOT DETECTED [facility] Comment on above: Result Comment: This test is not yet approved or cleared by the [place] FDA. When there are no FDA-approved or cleared tests available, and other criteria are met, FDA can make tests available under an emergency access mechanism called an Emergency Use Authorization (EUA). The EUA for this test is supported by the [place] of Health and Human Service's (HHS's) declaration [...] SARS-CoV-2. Performed By: #### C VDTB #### [facility] [address] [place] [address] Dr. Robb Martin SYMPTOMATIC COVID-19 ANTIGEN on 01-22-2023 EUA Statement SEE BELOW Normal [facility] Comment on above: Result Comment: [...] sooner. Performed By: #### C VDAGS #### [facility] [address] [place] [id number] [address] Robb Martin SARS-CoV-2 (COVID-19) RNA JOSEMANUEL+probe Ql (Unsp spec) Negative Normal NEGATIVE [facility] Comment on above: Performed By: #### C VDAGS #### [facility] [address] [place] [id number] [address] Robb Martin Albumin [Mass/volume] in Ser um or PlasmaOrdered By: Michele Arteaga on 11-19-2022 Albumin [Mass/Vol] 4.1 g/dL 3.2-5.5 [facility] Basophils Auto (Bld) [#/Vol] Ordered By: Michele Arteaga on 11-19-2022 Basophils (Bld) [#/Vol] 0.1 10*3/uL 0.0-0.2 [facility] Basophils/100 WBC Auto (Bld) Ordered By: Michele Arteaga on 11-19-2022 Basophils/100 WBC (Bld) 1.0 % . [facility] Creatinine and Glomerular fi ltration rate.predicted panel (S/P/Bld)Ordered By: Michele Arteaga on 11-19-2022 Creatinine [Mass/Vol] 1.11 mg/dL 0.64-1.27 [facility] Direct bilirubin measurement Ordered By: Michele Arteaga on 11-19-2022 Bilirubin.direct [Mass/Vol] 0.2 mg/dL 0.0-0.4 [facility] Eosinophils Auto (Bld) [#/Vo l]Ordered By: Michele Arteaga on 11-19-2022 Eosinophils (Bld) [#/Vol] 0.1 10*3/uL 0.0-0.45 [facility] Eosinophils/100 WBC Auto (Bl d)Ordered By: Michele Arteaga on 11-19-2022 Eosinophils/100 WBC (Bld) 1.6 % . [facility] Erythrocyte distribution wid th Auto (RBC) [Ratio]Ordered By: Michele Arteaga on 11-19-2022 Erythrocyte distribution width (RBC) [Ratio] 14.1 % 12.0-14.8 [facility] Erythrocyte sedimentation ra te by Photometric methodOrdered By: Michele Arteaga on 11-19-2022 ESR Photometric method (Bld) [Velocity] 14 mm/hr 0-19 [facility] Estimated glomerular filtrat ion rate (GFR) non- AmericanOrdered By: Michele Arteaga on 11-19-2022 GFR/1.73 sq M.predicted among non-blacks MDRD (S/P/Bld) [Vol rate/Area] > 60 mL/Min [facility] Globulin Calc (S) [Mass/Vol] Ordered By: Michele Arteaga on 11-19-2022 Globulin (S) [Mass/Vol] 2.1 g/dL [facility] Hematocrit Auto (Bld) [Volum e fraction]Ordered By: Michele Arteaga on 11-19-2022 Hematocrit (Bld) [Volume fraction] 34.7 % 38.8-50.0 [facility] Hemoglobin [Mass/volume] in BloodOrdered By: Michele Arteaga on 11-19-2022 Hemoglobin (Bld) [Mass/Vol] 11.4 g/dL 13.0-17.0 [facility] Leukocytes [#/volume] correc bert for nucleated erythrocytes in Blood by Automated counOrdered By: Michele Arteaga on 11-19-2022 WBC corrected for nucl RBC Auto (Bld) [#/Vol] 4.8 10*3/uL 4.1-10.5 [facility] Lymphocytes Auto (Bld) [#/Vo l]Ordered By: Michele Arteaga on 11-19-2022 Lymphocytes (Bld) [#/Vol] 0.7 10*3/uL 1.00-4.8 [facility] Lymphocytes/100 WBC Auto (Bl d)Ordered By: Michele Arteaga on 11-19-2022 Lymphocytes/100 WBC (Bld) 15.2 % . [facility] MCH Auto (RBC) [Entitic mass ]Ordered By: Michele Arteaga on 11-19-2022 MCH (RBC) [Entitic mass] 30.8 pg 27.5-35.2 [facility] MCHC Auto (RBC) [Mass/Vol]Or dered By: Michele Arteaga on 11-19-2022 MCHC (RBC) [Mass/Vol] 32.7 g/dL 32.5-35.6 [facility] MCV Auto (RBC) [Entitic vol] Ordered By: Michele Arteaga on 11-19-2022 MCV (RBC) [Entitic vol] 94.2 fL 83.5-101 [facility] Monocytes Auto (Bld) [#/Vol] Ordered By: Michele Arteaga on 11-19-2022 Monocytes (Bld) [#/Vol] 0.6 10*3/uL 0.0-0.8 [facility] Monocytes/100 WBC Auto (Bld) Ordered By: Michele Arteaga on 11-19-2022 Monocytes/100 WBC (Bld) 11.5 % . [facility] Neutrophils Auto (Bld) [#/Vo l]Ordered By: Michele Arteaga on 11-19-2022 Neutrophils (Bld) [#/Vol] 3.4 10*3/uL 1.8-7.7 [facility] Neutrophils/100 WBC Auto (Bl d)Ordered By: Michele Arteaga on 11-19-2022 Neutrophils/100 WBC (Bld) 70.7 % . [facility] No Panel InformationOrdered By: Michele Arteaga on 11-19-2022 Estimated GFR () > 60 mL/Min [facility] Comment on above: GFR estimated refere nce range: According to KDOQI guidelines, <60 ml/min/1.73m2 is sufficient to diagnose a patient with chronic kidney disease. Pharmacy Creatinine Clearance (Chem N/A [facility] Nucleated erythrocytes [Pres ence] in Blood by Automated countOrdered By: Michele Arteaga on 11-19-2022 Nucleated RBC Auto Ql (Bld) 0.0 /100{WBC} 0-0.5 [facility] Platelet mean volume Auto (B ld) [Entitic vol]Ordered By: Michele Arteaga on 11-19-2022 Platelet mean volume (Bld) [Entitic vol] 9.3 fL 6.6-10.1 [facility] Platelets Auto (Bld) [#/Vol] Ordered By: Michele Arteaga on 11-19-2022 Platelets (Bld) [#/Vol] 122 10*3/uL 150-450 [facility] Protein [Mass/volume] in Ser um or PlasmaOrdered By: Michele Arteaga on 11-19-2022 Protein [Mass/Vol] 6.2 g/dL 6.1-7.9 [facility] RBC Auto (Bld) [#/Vol]Ordere d By: Michele Arteaga on 11-19-2022 RBC (Bld) [#/Vol] 3.69 10*6/uL 3.90-5.60 [facility] Serum or plasma alanine ervin otransferase measurement without P-5'-P (enzymatic activiOrdered By: Michele Arteaga on 11-19-2022 ALT No additional P-5'-P [Catalytic activity/Vol] 33 U/L 10-60 [facility] Serum or plasma albumin/glob ulin mass ratioOrdered By: Michele Arteaga on 11-19-2022 Albumin/Globulin [Mass ratio] 2.0 {ratio} [facility] Serum or plasma alkaline daniel sphatase measurement (enzymatic activity/volume)Ordered By: Michele Arteaga on 11-19-2022 ALP [Catalytic activity/Vol] 78 U/L 32-92 [facility] Serum or plasma aspartate am inotransferase measurement (enzymatic activity/volume)Ordered By: Michele Arteaga on 11-19-2022 AST [Catalytic activity/Vol] 26 U/L 10-42 [facility] Serum or plasma non-glucuron idated bilirubin measurement (mass/volume)Ordered By: Micheel Arteaga on 11-19-2022 Bilirubin.indirect [Mass/Vol] 0.4 mg/dL [facility] Serum or plasma total biliru bin measurement (mass/volume)Ordered By: Michele Arteaga on 11-19-2022 Bilirubin [Mass/Vol] 0.6 mg/dL 0.3-1.2 [facility] WBC Auto (Bld) [#/Vol]Ordere d By: Michele Arteaga on 11-19-2022 WBC (Bld) [#/Vol] 4.8 10*3/uL 4.1-10.5 [facility] CBC AUTO DIFFon 11-05-2022 BASO # 0.0 103/ul Normal 0.0-0.1 [facility] Comment on above: Performed By: #### C BC #### [facility] [address] [place] [address] Dr. Robb Martin Basophils/100 WBC (Bld) 0.7 % Normal 0.2-2.0 [facility] Comment on above: Performed By: #### C BC #### [facility] [address] [place] [address] Dr. Robb Martin EO # 0.1 103/ul Normal 0.0-0.7 [facility] Comment on above: Performed By: #### C BC #### [facility] [address] [place] [address] Dr. Robb Martin Eosinophils/100 WBC (Bld) 1.9 % Normal 0.9-7.0 [facility] Comment on above: Performed By: #### C BC #### [facility] [address] [place] [address] Dr. Robb Martin Erythrocyte distribution width (RBC) [Ratio] 13.4 % Normal 11.0-15.0 [facility] Comment on above: Performed By: #### C BC #### [facility] [address] [place] [address] Dr. Robb Martin Hematocrit (Bld) [Volume fraction] 33.3 % Critically low 42.0-54.0 [facility] Comment on above: Performed By: #### C BC #### [facility] [address] [place] [address] Dr. Robb Martin Hemoglobin (Bld) [Mass/Vol] 11.1 g/dL Critically low 14.0-18.0 [facility] Comment on above: Performed By: #### C BC #### [facility] [address] [place] [address] Dr. Robb Martin IG # 0.01 10e3/ul Normal 0.00-0.03 [facility] Comment on above: Performed By: #### C BC #### [facility] [address] [place] [address] Dr. Robb Martin IG % 0.2 % Normal 0.0-0.5 [facility] Comment on above: Performed By: #### C BC #### [facility] [address] [place] [address] Dr. Robb Martin LYMPH # 0.8 103/ul Critically low 1.2-3.8 [facility] Comment on above: Performed By: #### C BC #### [facility] [address] [place] [address] Dr. Robb Martin Lymphocytes/100 WBC (Bld) 17.6 % Critically low 20.5-60.0 [facility] Comment on above: Performed By: #### C BC #### [facility] [address] [place] [address] Dr. Robb Martin MANUAL DIFF REQ NO Normal [facility] Comment on above: Performed By: #### C BC #### [facility] [address] [place] [address] Dr. Robb Martin MCH (RBC) [Entitic mass] 30.4 pg Normal 25.9-34.0 [facility] Comment on above: Performed By: #### C BC #### [facility] [address] [place] [address] Dr. Robb Martin MCHC (RBC) [Mass/Vol] 33.3 g/dL Normal 29.9-35.2 [facility] Comment on above: Performed By: #### C BC #### [facility] [address] [place] [address] Dr. Robb Martin MCV (RBC) [Entitic vol] 91.2 fL Normal 80.0-94.0 [facility] Comment on above: Performed By: #### C BC #### [facility] [address] [place] [address] Dr. Robb Martin MONO # 0.6 103/ul Normal 0.3-0.8 [facility] Comment on above: Performed By: #### C BC #### [facility] [address] [place] [address] Dr. Robb Martin Monocytes/100 WBC (Bld) 13.9 % Critically high 1.7-12. 0 [facility] Comment on above: Performed By: #### C BC #### [facility] [address] [place] [address] Dr. Robb Martin NEUT # 2.8 103/ul Normal 1.4-6.5 [facility] Comment on above: Performed By: #### C BC #### [facility] [address] [place] [address] Dr. Robb Martin Neutrophils/100 WBC (Bld) 65.7 % Normal 43.0-75.0 [facility] Comment on above: Performed By: #### C BC #### [facility] [address] [place] [address] Dr. Robb Martin Platelet mean volume (Bld) [Entitic vol] 10.3 fL Normal 9.5-13.5 [facility] Comment on above: Performed By: #### C BC #### [facility] [address] [address] [address] Robb Martin PLT 141 103/ul Critically low 150-450 [facility] Comment on above: Performed By: #### C BC #### [facility] [address] [address] [address] Robb Martin RBC 3.65 106/ul Critically low 4.70-6.10 [facility] Comment on above: Performed By: #### C BC #### [facility] [address] [address] [address] Robb Martin WBC 4.3 103/ul Normal 4.0-11.0 [facility] Comment on above: Performed By: #### C BC #### [facility] [address] [address] [address] Robb Martin PROF CHEM 8 (BAS METB)on Anion gap [Moles/Vol] 11.3 mmol/L Normal [facility] Comment on above: Performed By: #### B MP ####[facility] [address] [address]DrSantos Martin Calcium [Mass/Vol] 9.2 mg/dL Normal 8.5-10.1 [facility] Comment on above: Performed By: #### B MP ####[facility] [address] [address]DrSantos Martin Chloride [Moles/Vol] 105 mmol/L Normal 98-107 [facility] Comment on above: Performed By: #### B MP ####[facility] [address] [address]Dr. Robb Martin CO2 [Moles/Vol] 30.7 mmol/L Normal 21.0-32.0 [facility] Comment on above: Performed By: #### B MP ####[facility] [address] [address]DrSantos Martin Creatinine [Mass/Vol] 1.01 mg/dL Normal 0.70-1.30 [facility] Comment on above: Performed By: #### B MP ####[facility] [address] [id number][address] Robb Martin EGFR-AF AUSTRIAN >60 Normal >=60 [facility] Comment on above: Performed By: #### B MP ####[facility] [address] [id number][address] Robb Mario EGFR-NON AF AUSTRIAN >60 Normal >=60 [facility] Comment on above: Performed By: #### B MP ####[facility] [address] [id number][address] Robb Mario Glucose [Mass/Vol] 103 mg/dL Normal 74-106 [facility] Comment on above: Performed By: #### B MP ####[facility] [address] [id number][address] Robb Mario Potassium [Moles/Vol] 4.0 mmol/L Normal 3.5-5.1 [facility] Comment on above: Performed By: #### B MP ####[facility] [address] [id number][address] Robb Mario Sodium [Moles/Vol] 143 mmol/L Normal 136-145 [facility] Comment on above: Performed By: #### B MP ####[facility] [address] [id number][address] Robb Mario Urea nitrogen [Mass/Vol] 17.0 mg/dL Normal 7.0-18.0 [facility] Comment on above: Performed By: #### B MP ####[facility] [address] [id number]. Candyelaina Mario Urea nitrogen/Creatinine [Mass ratio] 16.8 mg/mg Normal [facility] Comment on above: Performed By: #### B MP ####[facility] [address] [id number][address] Robb Mario CBC AUTO DIFFon 09-29-2022 BASO # 0.0 103/ul Normal 0.0-0.1 [facility] Comment on above: Performed By: #### C BC #### [facility] [address] [place] [address] Dr. Robb Martin Basophils/100 WBC (Bld) 0.6 % Normal 0.2-2.0 [facility] Comment on above: Performed By: #### C BC #### [facility] [address] [place] [address] Dr. Robb Martin EO # 0.1 103/ul Normal 0.0-0.7 [facility] Comment on above: Performed By: #### C BC #### [facility] [address] [place] [address] Dr. Robb Martin Eosinophils/100 WBC (Bld) 1.4 % Normal 0.9-7.0 [facility] Comment on above: Performed By: #### C BC #### [facility] [address] [place] [address] Dr. Robb Martin Erythrocyte distribution width (RBC) [Ratio] 13.9 % Normal 11.0-15.0 [facility] Comment on above: Performed By: #### C BC #### [facility] [address] [place] [address] Dr. Robb Martin Hematocrit (Bld) [Volume fraction] 35.4 % Critically low 42.0-54.0 [facility] Comment on above: Performed By: #### C BC #### [facility] [address] [place] [address] Dr. Robb Martin Hemoglobin (Bld) [Mass/Vol] 11.3 g/dL Critically low 14.0-18.0 [facility] Comment on above: Performed By: #### C BC #### [facility] [address] [place] [address] Dr. Robb Martin IG # 0.01 10e3/ul Normal 0.00-0.03 [facility] Comment on above: Performed By: #### C BC #### [facility] [address] [place] [address] Dr. Robb Martin IG % 0.2 % Normal 0.0-0.5 [facility] Comment on above: Performed By: #### C BC #### [facility] [address] [place] [address] Dr. Robb Martin LYMPH # 0.7 103/ul Critically low 1.2-3.8 [facility] Comment on above: Performed By: #### C BC #### [facility] [address] [place] [address] Dr. Robb Martin Lymphocytes/100 WBC (Bld) 14.4 % Critically low 20.5-60.0 [facility] Comment on above: Performed By: #### C BC #### [facility] [address] [place] [address] Dr. Robb Martin MANUAL DIFF REQ NO Normal [facility] Comment on above: Performed By: #### C BC #### [facility] [address] [place] [address] Dr. Robb Martin MCH (RBC) [Entitic mass] 31.3 pg Normal 25.9-34.0 [facility] Comment on above: Performed By: #### C BC #### [facility] [address] [place] [address] Dr. Robb Martin MCHC (RBC) [Mass/Vol] 31.9 g/dL Normal 29.9-35.2 [facility] Comment on above: Performed By: #### C BC #### [facility] [address] [place] [address] Dr. Robb Martin MCV (RBC) [Entitic vol] 98.1 fL Critically high 80.0-94 .0 [facility] Comment on above: Performed By: #### C BC #### [facility] [address] [place] [address] Dr. Robb Martin MONO # 0.6 103/ul Normal 0.3-0.8 [facility] Comment on above: Performed By: #### C BC #### [facility] [address] [place] [address] Dr. Robb Martin Monocytes/100 WBC (Bld) 11.1 % Normal 1.7-12.0 [facility] Comment on above: Performed By: #### C BC #### [facility] [address] [address] [address] Robb Martin NEUT # 3.7 103/ul Normal 1.4-6.5 [facility] Comment on above: Performed By: #### C BC #### [facility] [id number] Robb Martin Neutrophils/100 WBC (Bld) 72.3 % Normal 43.0-75.0 [facility] Comment on above: Performed By: #### C BC #### [facility] [address] [address] [address] Robb Martin Platelet mean volume (Bld) [Entitic vol] 10.4 fL Normal 9.5-13.5 [facility] Comment on above: Performed By: #### C BC #### [facility] [address] [address] [address] Robb Martin PLT 122 103/ul Critically low 150-450 [facility] Comment on above: Performed By: #### C BC #### [facility] [address] [address] [address] Robb Martin RBC 3.61 106/ul Critically low 4.70-6.10 [facility] Comment on above: Performed By: #### C BC #### [facility] [address] [address] [address] Robb Martin WBC 5.2 103/ul Normal 4.0-11.0 [facility] Comment on above: Performed By: #### C BC #### [facility] [address] [address] [address] Robb Martin PROF CHEM 8 (BAS METB)on Anion gap [Moles/Vol] 10.6 mmol/L Normal [facility] Comment on above: Performed By: #### B MP ####[facility] [address] [address]Dr. Robb Martin Calcium [Mass/Vol] 9.3 mg/dL Normal 8.5-10.1 [facility] [place] [facility] Comment on above: Performed By: #### B MP ####[facility] [address] [address]Dr. Robb Martin Chloride [Moles/Vol] 103 mmol/L Normal 98-107 [facility] Comment on above: Performed By: #### B MP ####[facility] [address] [address]Dr. Robb Martin CO2 [Moles/Vol] 30.2 mmol/L Normal 21.0-32.0 [facility] Comment on above: Performed By: #### B MP ####[facility] [address] [address]Dr. Robb Martin Creatinine [Mass/Vol] 0.98 mg/dL Normal 0.70-1.30 [facility] Comment on above: Performed By: #### B MP ####[facility] [address] [place], [place] [address]Dr. Robb Mario EGFR-AF AUSTRIAN >60 Normal >=60 [facility] Comment on above: Performed By: #### B MP ####[facility] [address] [place], [place] [address]Dr. Robb Martin EGFR-NON AF AUSTRIAN >60 Normal >=60 [facility] Comment on above: Performed By: #### B MP ####[facility] [address] [place], [place] [address]Dr. Candyelaina Martin Glucose [Mass/Vol] 99 mg/dL Normal 74-106 [facility] [place] [facility] Comment on above: Performed By: #### B MP ####[facility] [address] [address]Dr. Candyelaina Martin Potassium [Moles/Vol] 3.8 mmol/L Normal 3.5-5.1 [facility] Comment on above: Performed By: #### B MP ####[facility] [address] [address]Dr. Robb Martin Sodium [Moles/Vol] 140 mmol/L Normal 136-145 [facility] [place] [facility] Comment on above: Performed By: #### B MP ####[facility] [address] [place], [place] [address]To. Robb Martin Urea nitrogen [Mass/Vol] 20.0 mg/dL Critically high 7.0-18.0 [facility] Comment on above: Performed By: #### B MP ####[facility] [address] [place], [place] [address]Wi. Robb Martin Urea nitrogen/Creatinine [Mass ratio] 20.4 mg/mg Normal [facility] Comment on above: Performed By: #### B MP ####[facility] [address] [place], [place] [address]Us. Robb Martin Basophils Auto (Bld) [#/Vol] Ordered By: Michele Arteaga on 07-20-2022 Basophils (Bld) [#/Vol] 0.0 10*3/uL 0.0-0.2 [facility] Basophils/100 WBC Auto (Bld) Ordered By: Michele Arteaga on 07-20-2022 Basophils/100 WBC (Bld) 0.8 % . [facility] Body fluid albumin measureme nt (mass/volume)Ordered By: Michele Arteaga on 07-20-2022 Albumin (Body fld) [Mass/Vol] 3.8 g/dL 3.2-5.5 [facility] Creatinine and Glomerular fi ltration rate.predicted panel (S/P/Bld)Ordered By: Michele Arteaga on 07-20-2022 Creatinine [Mass/Vol] 1.00 mg/dL 0.64-1.27 [facility] Direct bilirubin measurement Ordered By: Michele Arteaga on 07-20-2022 Bilirubin.direct [Mass/Vol] 0.2 mg/dL 0.0-0.4 [facility] Eosinophils Auto (Bld) [#/Vo l]Ordered By: Michele Arteaga on 07-20-2022 Eosinophils (Bld) [#/Vol] 0.0 10*3/uL 0.0-0.45 [facility] Eosinophils/100 WBC Auto (Bl d)Ordered By: Michele Arteaga on 07-20-2022 Eosinophils/100 WBC (Bld) 1.0 % . [facility] Erythrocyte distribution wid th Auto (RBC) [Ratio]Ordered By: Michele Arteaga on 07-20-2022 Erythrocyte distribution width (RBC) [Ratio] 14.7 % 12.0-14.8 [facility] Erythrocyte sedimentation ra te by Photometric methodOrdered By: Michele Arteaga on 07-20-2022 ESR Photometric method (Bld) [Velocity] 13 mm/hr 0-19 [facility] Estimated glomerular filtrat ion rate (GFR) non- AmericanOrdered By: Michele Arteaga on 07-20-2022 GFR/1.73 sq M.predicted among non-blacks MDRD (S/P/Bld) [Vol rate/Area] > 60 mL/Min [facility] Globulin Calc (S) [Mass/Vol] Ordered By: Michele Arteaga on 07-20-2022 Globulin (S) [Mass/Vol] 2.1 g/dL [facility] Hematocrit Auto (Bld) [Volum e fraction]Ordered By: Michele Arteaga on 07-20-2022 Hematocrit (Bld) [Volume fraction] 32.4 % 38.8-50.0 [facility] Hemoglobin [Mass/volume] in BloodOrdered By: Michele Arteaga on 07-20-2022 Hemoglobin (Bld) [Mass/Vol] 10.8 g/dL 13.0-17.0 [facility] Laboratory - Hematology and Cell countsOrdered By: Michele Arteaga on 07-20-2022 Nucleated RBC/100 WBC (Bld) [Ratio] 0.0 % 0-0.5 [facility] Leukocytes [#/volume] in Blo od by Automated countOrdered By: Michele Arteaga on 07-20-2022 WBC (Bld) [#/Vol] 4.6 10*3/uL 4.5-11.0 [facility] Lymphocytes Auto (Bld) [#/Vo l]Ordered By: Michele Arteaga on 07-20-2022 Lymphocytes (Bld) [#/Vol] 0.6 10*3/uL 1.00-4.8 [facility] Lymphocytes/100 WBC Auto (Bl d)Ordered By: Michele Arteaga on 07-20-2022 Lymphocytes/100 WBC (Bld) 13.8 % . [facility] MCH Auto (RBC) [Entitic mass ]Ordered By: Michele Arteaga on 07-20-2022 MCH (RBC) [Entitic mass] 31.8 pg 27.5-35.2 [facility] MCHC Auto (RBC) [Mass/Vol]Or dered By: Michele Arteaga on 07-20-2022 MCHC (RBC) [Mass/Vol] 33.2 g/dL 32.5-35.6 [facility] MCV Auto (RBC) [Entitic vol] Ordered By: Michele Arteaga on 07-20-2022 MCV (RBC) [Entitic vol] 95.8 fL 83.5-101 [facility] Monocytes Auto (Bld) [#/Vol] Ordered By: Michele Arteaga on 07-20-2022 Monocytes (Bld) [#/Vol] 0.4 10*3/uL 0.0-0.8 [facility] Monocytes/100 WBC Auto (Bld) Ordered By: Michele Arteaga on 07-20-2022 Monocytes/100 WBC (Bld) 9.1 % . [facility] Neutrophils Auto (Bld) [#/Vo l]Ordered By: Michele Arteaga on 07-20-2022 Neutrophils (Bld) [#/Vol] 3.5 10*3/uL 1.8-7.7 [facility] Neutrophils/100 WBC Auto (Bl d)Ordered By: Michele Arteaga on 07-20-2022 Neutrophils/100 WBC (Bld) 75.3 % . [facility] No Panel InformationOrdered By: Michele Arteaga on 07-20-2022 Estimated GFR () > 60 mL/Min [facility] Comment on above: GFR estimated refere nce range: According to KDOQI guidelines, <60 ml/min/1.73m2 is sufficient to diagnose a patient with chronic kidney disease. Pharmacy Creatinine Clearance (Chem N/A [facility] Platelet mean volume Auto (B ld) [Entitic vol]Ordered By: Michele Arteaga on 07-20-2022 Platelet mean volume (Bld) [Entitic vol] 8.7 fL 6.6-10.1 [facility] Platelets Auto (Bld) [#/Vol] Ordered By: Michele Arteaga on 07-20-2022 Platelets (Bld) [#/Vol] 140 10*3/uL 150-450 [facility] Protein [Mass/volume] in Ser um or PlasmaOrdered By: Michele Arteaga on 07-20-2022 Protein [Mass/Vol] 5.9 g/dL 6.1-7.9 [facility] RBC Auto (Bld) [#/Vol]Ordere d By: Michele Arteaga on 07-20-2022 RBC (Bld) [#/Vol] 3.39 10*6/uL 3.90-5.60 [facility] Serum or plasma alanine ervin otransferase measurement without P-5'-P (enzymatic activiOrdered By: Michele Arteaga on 07-20-2022 ALT No additional P-5'-P [Catalytic activity/Vol] 29 U/L 10-60 [facility] Serum or plasma albumin/glob ulin mass ratioOrdered By: Michele Arteaga on 07-20-2022 Albumin/Globulin [Mass ratio] 1.8 {ratio} [facility] Serum or plasma alkaline daniel sphatase measurement (enzymatic activity/volume)Ordered By: Michele Arteaga on 07-20-2022 ALP [Catalytic activity/Vol] 68 U/L 32-92 [facility] Serum or plasma aspartate am inotransferase measurement (enzymatic activity/volume)Ordered By: Michele Arteaga on 07-20-2022 AST [Catalytic activity/Vol] 24 U/L 10-42 [facility] Serum or plasma non-glucuron idated bilirubin measurement (mass/volume)Ordered By: Michele Arteaga on 07-20-2022 Bilirubin.indirect [Mass/Vol] 0.7 mg/dL [facility] Serum or plasma total biliru bin measurement (mass/volume)Ordered By: Michele Arteaga on 07-20-2022 Bilirubin [Mass/Vol] 0.9 mg/dL 0.3-1.2 [facility] ECHOCARDIO M/2D COMPLETEon 0 04-20-2022 ECHOCARDIO M/2D COMPLETE Patient: SEBASTIAN HANNON Exam Date: 04/20/2022 : 1935 Gender:M Ordering : RENEE JUDGE Admission #: [id number] Family : UMA ZANDRA D.O. Order #: [id number] CLICK HERE TO VIEW EXAM ECHOCARDIOGRAM REPORT [...] Dylon Kate M.D. on 04/20/2022 at 17:06 [facility]*on 11-03-2021 XR clavicle RT* [facility] Other XR clavicle RT* [facility] [place] [facility] Other XR clavicle RT* [address] [facility] No rt [facility] Other XR clavicle RT* [place] [address] [address] [facility] Other XR clavicle RT* XRay Report [facility] Other XR clavicle RT* Signed [facility] Other XR clavicle RT* Patient: Sebastian Hannon MR#: [id number] [facility] Other XR clavicle RT* 0 [facility] Other XR clavicle RT* : 1935 Acct:[id number] [facility] Other XR clavicle RT* Age/Sex: 86 / M ADM Date: 11/03/21 [facility] Other XR clavicle RT* Loc: [facility] [place]: Type : [facility] Other XR clavicle RT* Attending Dr: Vinh Lawton DO [facility] Other XR clavicle RT* Ordering Provider: Vinh Lawton DO [facility] Other XR clavicle RT* Date of Service: 11/03/21 [facility] Other XR clavicle RT* XR/XR clavicle RT*: Displaced fracture of lateral end of right clavicle, [facility] Other XR clavicle RT* subsequ [facility] Other XR clavicle RT* Copies to: Vinh Lawton DO [facility] Other XR clavicle RT* 2 views RIGHT clavicle [facility] Other XR clavicle RT* COMPARISON: 10/06/21 [facility] Other XR clavicle RT* HISTORY: Status post RIGHT clavicle fracture [facility] Other XR clavicle RT* There is redemonstration of the distal clavicle fracture. There is subtle callus formation [employer] Other XR clavicle RT* suggesting interval healing. Bony alignment is unchanged. [facility] Other XR clavicle RT* XR/XR clavicle RT* [facility] Other XR clavicle RT* IMPRESSION: Healing distal RIGHT clavicle fracture. Unchanged bony alignment. [facility] Other XR clavicle RT* Impression dictated by: Abdoul William M.D.11/03/2021 4:06 PM [facility] Other XR clavicle RT* Dictation Location: [address] [address] [employer] Other XR clavicle RT* Transcribed By: PHYLLIS 11/03/21 [facility] [employer] Other XR clavicle RT* Dictated By: Abdoul William DO 11/03/21 [facility] [employer] Other XR clavicle RT* Signed By: [facility] [employer] Other XR clavicle RT* 11/03/21 [facility] Other Cardiovascular Lab Reporton 08-25-2021 Cardiovascular Lab Report [facility] Patient Name: Par[facility] MR #: [id number] Physician: Renee Judge MD Department of Service Date: 08/25/2021 Medicine Birthdate: 1935 Division of Room #: [facility] Cardiology Adult Cardiovascular Services [address] [address] Cardiovascular Laboratory Report BIV-UPGRADE PROCEDURE NOTE DATE [...] occasions using seldinger technique using a 5 Albanian micropunture needle. There was difficulty guiding the [...] lead position on orthogonal views ([facility] and [facility]) to confirm position in the septal aspect, the screw was activated. After confirmation of good sensing parameters, injury pattern and pacing thresholds, 10V pacing was done and no diaphragmatic stimulation was noted. It was then secured in the pocket using two 0- Silk sutures. I then proceeded to perform the LV lead placement. A Walthall sheath was advanced into the RV over [...] lead position on orthogonal views ([facility] and [facility]) to confirm position in the septal aspect, [...] lead were then attached to a [employer] MANAGEMENT ANALYST-D device and the leads tug tested. Pocket hemostasis was achieved, and it was then copiously and vigorously irrigated with antiobiotic so (more content not included)... Normal [facility] Vital Signs Date Time Vital Sign Value Performing Clinician Facility 06-18-2025 15:00-0400 Body temperature 97.9 [degF] Ludwig Hawkins MD Work Phone: [facility] 06-18-2025 15:00-0400 Diastolic blood pressure 60 mm[Hg] Ludwig Hawkins MD Work Phone: 8(122)610-490053 [place] [address] 06-18-2025 15:00-0400 Heart rate 64 /min Ludwig Hawkins MD Work Phone: 2(060)183-537753 [place] [address] 06-18-2025 15:00-0400 Respiratory rate 20 /min Ludwig Hawkins MD Work Phone: 3(201)981-768453 [place] [address] 06-18-2025 15:00-0400 SaO2% (BldA) [Mass fraction] 98 % Ludwig Hawkins MD Work Phone: 4(221)419-510753 [place] [address] 06-18-2025 15:00-0400 Systolic blood pressure 127 mm[Hg] Ludwig Hawkins MD Work Phone: 3(711)321-258453 [place] [address] 06-16-2025 11:26-0400 Body mass index (BMI) [Ratio] 23 kg/m2 Ludwig Hawkins MD Work Phone: 2(455)739-926153 [place] [address] 06-16-2025 11:26-0400 Body weight 72.7 kg Ludwig Hawkins MD Work Phone: 1(744)431-524153 [place] [address] 06-11-2025 11:45-0400 Body height 177.8 cm Ludwig Hawkins MD Work Phone: 1(297)625-494653 [place] [address] 06-10-2025 16:53-0400 Body temperature 97.9 [degF] Felix Sweeney MD Work Phone: 3(541)251-401601 [place] [address] 06-10-2025 16:53-0400 Diastolic blood pressure 60 mm[Hg] Felix Sweeney MD Work Phone: 1(156)390-7[address] [place] [address] 06-10-2025 16:53-0400 Heart rate 63 /min Felix Sweeney MD Work Phone: 4(608)991-967901 [place] [address] 06-10-2025 16:53-0400 Respiratory rate 18 /min Felix Sweeney MD Work Phone: [facility] 06-10-2025 16:53-0400 SaO2% (BldA) [Mass fraction] 97 % Felix Sweeney MD Work Phone: [facility] 06-10-2025 16:53-0400 Systolic blood pressure 134 mm[Hg] Felix Sweeney MD Work Phone: [facility] 06-09-2025 15:27-0400 Body height 177.8 cm Felix Sweeney MD Work Phone: [facility] 05-21-2025 16:12-0400 Body temperature 98.4 [degF] Zuri Diaz RN [facility] 05-21-2025 16:12-0400 Diastolic blood pressure 67 mm[Hg] Zuri Diaz RN [facility] 05-21-2025 16:12-0400 Heart rate 66 /min Zuri Diaz RN [facility] 05-21-2025 16:12-0400 Respiratory rate 18 /min Zuri Diaz RN [facility] 05-21-2025 16:12-0400 SaO2% (BldA) [Mass fraction] 100 % Zuri Diaz RN [facility] 05-21-2025 16:12-0400 Systolic blood pressure 157 mm[Hg] Zuri Diaz RN [facility] 05-21-2025 13:39-0400 Body height 177.8 cm Duglas Walsh MD, PhD Work Phone: [facility] 05-21-2025 13:39-0400 Body mass index (BMI) [Ratio] 22.74 kg/m2 Duglas Walsh MD, PhD Work Phone: [facility] 05-21-2025 13:39-0400 Body temperature 98.01 [degF] Duglas Walsh MD, PhD Work Phone: [facility] 05-21-2025 13:39-0400 Body weight 71.89 kg Duglas Walsh MD, PhD Work Phone: [facility] 05-21-2025 13:39-0400 Diastolic blood pressure 63 mm[Hg] Duglas Walsh MD, PhD Work Phone: [facility] 05-21-2025 13:39-0400 Heart rate 73 /min Duglas Walsh MD, PhD Work Phone: 9(893)806-093094 [address] 05-21-2025 13:39-0400 Respiratory rate 12 /min Duglas Walsh MD, PhD Work Phone: 4(974)770-314743 [place] [address] 05-21-2025 13:39-0400 SaO2% (BldA) [Mass fraction] 97 % Duglas Walsh MD, PhD Work Phone: 1(869)578-503043 [place] [address] 05-21-2025 13:39-0400 Systolic blood pressure 134 mm[Hg] Duglas Walsh MD, PhD Work Phone: 7(878)017-464143 [place] [address] 05-11-2025 08:13-0400 Diastolic blood pressure 55 mm[Hg] Duglas Walsh MD, PhD Work Phone: 7(479)102-290443 [place] [address] 05-11-2025 08:13-0400 Systolic blood pressure 120 mm[Hg] Duglas Walsh MD, PhD Work Phone: 5(759)279-791643 [place] [address] 05-10-2025 08:53-0400 Body height 177.8 cm Duglas Walsh MD, PhD Work Phone: 0(476)709-361143 [place] [address] 05-10-2025 08:53-0400 Body mass index (BMI) [Ratio] 23.12 kg/m2 Duglas Walsh MD, PhD Work Phone: 2(356)856-361043 [place] [address] 05-10-2025 08:53-0400 Body temperature 98.01 [degF] Duglas Walsh MD, PhD Work Phone: 4(470)083-909943 [place] [address] 05-10-2025 08:53-0400 Body weight 73.07 kg Duglas Walsh MD, PhD Work Phone: [facility] 05-10-2025 08:53-0400 Diastolic blood pressure 60 mm[Hg] Duglas Walsh MD, PhD Work Phone: [facility] 05-10-2025 08:53-0400 Heart rate 70 /min Duglas Walsh MD, PhD Work Phone: [facility] 05-10-2025 08:53-0400 Respiratory rate 16 /min Duglas Walsh MD, PhD Work Phone: [facility] 05-10-2025 08:53-0400 SaO2% (BldA) [Mass fraction] 97 % Duglas Walsh MD, PhD Work Phone: [facility] 05-10-2025 08:53-0400 Systolic blood pressure 134 mm[Hg] Duglas Walsh MD, PhD Work Phone: [facility] 04-19-2025 14:26-0400 Body height 177.8 cm Uma Ball DO Work Phone: [facility] 04-19-2025 14:26-0400 Body mass index (BMI) [Ratio] 23.5 kg/m2 Uma Ball DO Work Phone: [facility] 04-19-2025 14:26-0400 Body temperature 97.7 [degF] Uma Ball DO Work Phone: [facility] 04-19-2025 14:26-0400 Body weight 74.38 kg Uma Ball DO Work Phone: [facility] 04-19-2025 14:26-0400 Diastolic blood pressure 71 mm[Hg] Uma Ball DO Work Phone: [facility] 04-19-2025 14:26-0400 Heart rate 64 /min Uma Ball DO Work Phone: [facility] 04-19-2025 14:26-0400 Respiratory rate 16 /min Uma Ball DO Work Phone: [facility] 04-19-2025 14:26-0400 SaO2% (BldA) [Mass fraction] 99 % Uma Ball DO Work Phone: [facility] 04-19-2025 14:26-0400 Systolic blood pressure 134 mm[Hg] Uma Ball DO Work Phone: [facility] 04-17-2025 13:51-0400 Body mass index (BMI) [Ratio] 23.35 kg/m2 Duglas uBsby MD Work Phone: [facility] 04-17-2025 13:51-0400 Body temperature 98.1 [degF] Duglas Busby MD Work Phone: [facility] 04-17-2025 13:51-0400 Body weight 74.89 kg Duglas Busby MD Work Phone: [facility] 04-17-2025 13:51-0400 Diastolic blood pressure 62 mm[Hg] Duglas Busby MD Work Phone: [facility] 04-17-2025 13:51-0400 Heart rate 64 /min Duglas Busby MD Work Phone: [facility] 04-17-2025 13:51-0400 Respiratory rate 18 /min Duglas Busby MD Work Phone: [facility] 04-17-2025 13:51-0400 SaO2% (BldA) [Mass fraction] 95 % Duglas Busby MD Work Phone: [facility] 04-17-2025 13:51-0400 Systolic blood pressure 123 mm[Hg] Duglas Busby MD Work Phone: [facility] 03-21-2025 08:55-0400 Body height 177.8 cm Uma Ball DO Work Phone: [facility] 03-21-2025 08:55-0400 Body mass index (BMI) [Ratio] 23.3 kg/m2 Uma Ball DO Work Phone: [facility] 03-21-2025 08:55-0400 Body weight 73.93 kg Uma Ball DO Work Phone: [facility] 03-21-2025 08:55-0400 Diastolic blood pressure 68 mm[Hg] Uma Ball DO Work Phone: [facility] 03-21-2025 08:55-0400 Heart rate 64 /min Uma Ball DO Work Phone: [facility] 03-21-2025 08:55-0400 Respiratory rate 12 /min Uma Ball DO Work Phone: [facility] 03-21-2025 08:55-0400 SaO2% (BldA) [Mass fraction] 97 % Uma Ball DO Work Phone: [facility] 03-21-2025 08:55-0400 Systolic blood pressure 126 mm[Hg] Uma Ball DO Work Phone: [facility] 01-23-2025 08:38-0400 Body height 177.8 cm Uma Ball DO Work Phone: [facility] 01-23-2025 08:38-0400 Body mass index (BMI) [Ratio] 23.8 kg/m2 Uma Ball DO Work Phone: [facility] 01-23-2025 08:38-0400 Body weight 75.29 kg Uma Ball DO Work Phone: [facility] 01-23-2025 08:38-0400 Diastolic blood pressure 66 mm[Hg] Uma Ball DO Work Phone: [facility] 01-23-2025 08:38-0400 Heart rate 69 /min Uma Ball DO Work Phone: [facility] 01-23-2025 08:38-0400 Respiratory rate 12 /min Uma Ball DO Work Phone: [facility] 01-23-2025 08:38-0400 SaO2% (BldA) [Mass fraction] 97 % Uma Ball DO Work Phone: [facility] 01-23-2025 08:38-0400 Systolic blood pressure 156 mm[Hg] Uma Ball DO Work Phone: [facility] 01-16-2025 10:44-0400 Body height 177.8 cm Uma Ball DO Work Phone: [facility] 01-16-2025 10:44-0400 Body mass index (BMI) [Ratio] 23.8 kg/m2 Uma Ball DO Work Phone: [facility] 01-16-2025 10:44-0400 Body weight 75.4 kg Uma Ball DO Work Phone: [facility] 01-16-2025 10:44-0400 Diastolic blood pressure 64 mm[Hg] Uma Ball DO Work Phone: [facility] 01-16-2025 10:44-0400 Heart rate 68 /min Uma Ball DO Work Phone: [facility] 01-16-2025 10:44-0400 Respiratory rate 12 /min Uma Ball DO Work Phone: [facility] 01-16-2025 10:44-0400 SaO2% (BldA) [Mass fraction] 97 % Uma Ball DO Work Phone: [facility] 01-16-2025 10:44-0400 Systolic blood pressure 152 mm[Hg] Uma Ball DO Work Phone: [facility] 01-10-2025 13:52-0400 Body height 177.8 cm Uma Ball DO Work Phone: [facility] 01-10-2025 13:52-0400 Body mass index (BMI) [Ratio] 24.2 kg/m2 Uma Ball DO Work Phone: [facility] 01-10-2025 13:52-0400 Body temperature 97.5 [degF] Uma Ball DO Work Phone: [facility] 01-10-2025 13:52-0400 Body weight 76.65 kg Uma Ball DO Work Phone: [facility] 01-10-2025 13:52-0400 Diastolic blood pressure 64 mm[Hg] Uma Ball DO Work Phone: [facility] 01-10-2025 13:52-0400 Heart rate 67 /min Uma Ball DO Work Phone: [facility] 01-10-2025 13:52-0400 Respiratory rate 16 /min Uma Ball DO Work Phone: [facility] 01-10-2025 13:52-0400 SaO2% (BldA) [Mass fraction] 99 % Uma Ball DO Work Phone: [facility] 01-10-2025 13:52-0400 Systolic blood pressure 123 mm[Hg] Uma Ball DO Work Phone: [facility] 01-05-2025 11:51-0400 Body height 177.8 cm Uma Ball DO Work Phone: [facility] 01-05-2025 11:51-0400 Body mass index (BMI) [Ratio] 24 kg/m2 Uma Ball DO Work Phone: [facility] 01-05-2025 11:51-0400 Body weight 75.8 kg Uma Ball DO Work Phone: [facility] 01-05-2025 11:51-0400 Diastolic blood pressure 59 mm[Hg] Uma Ball DO Work Phone: [facility] 01-05-2025 11:51-0400 Heart rate 73 /min Uma Ball DO Work Phone: [facility] 01-05-2025 11:51-0400 Respiratory rate 12 /min Uma Ball DO Work Phone: [facility] 01-05-2025 11:51-0400 Systolic blood pressure 139 mm[Hg] Uma Ball DO Work Phone: [facility] 11-20-2024 09:08-0500 Body height 177.8 cm Uma Ball DO Work Phone: [facility] 11-20-2024 09:08-0500 Body mass index (BMI) [Ratio] 23.3 kg/m2 Uma Ball DO Work Phone: [facility] 11-20-2024 09:08-0500 Body weight 73.65 kg Uma Ball DO Work Phone: [facility] 11-20-2024 09:08-0500 Diastolic blood pressure 55 mm[Hg] Uma Ball DO Work Phone: [facility] 11-20-2024 09:08-0500 Heart rate 76 /min Uma Ball DO Work Phone: [facility] 11-20-2024 09:08-0500 Respiratory rate 12 /min Uma Ball DO Work Phone: [facility] 11-20-2024 09:08-0500 Systolic blood pressure 135 mm[Hg] Uma Ball DO Work Phone: [facility] 10-05-2024 14:52-0500 Body height 177.8 cm Uma Ball DO Work Phone: [facility] 10-05-2024 14:52-0500 Body mass index (BMI) [Ratio] 23.5 kg/m2 Uma Ball DO Work Phone: [facility] 10-05-2024 14:52-0500 Body temperature 97.8 [degF] Uma Ball DO Work Phone: [facility] 10-05-2024 14:52-0500 Body weight 74.38 kg Uma Ball DO Work Phone: [facility] 10-05-2024 14:52-0500 Diastolic blood pressure 73 mm[Hg] Uma Ball DO Work Phone: [facility] 10-05-2024 14:52-0500 Heart rate 66 /min Uma Ball DO Work Phone: [facility] 10-05-2024 14:52-0500 Respiratory rate 16 /min Uma Ball DO Work Phone: [facility] 10-05-2024 14:52-0500 SaO2% (BldA) [Mass fraction] 98 % Uma Ball DO Work Phone: [facility] 10-05-2024 14:52-0500 Systolic blood pressure 167 mm[Hg] Uma Ball DO Work Phone: [facility] 2024 15:15-0400 Body height 179.1 cm Elkin Holly MD Work Phone: [facility] 2024 15:15-0400 Body mass index (BMI) [Ratio] 23.45 kg/m2 Elkin Holly MD Work Phone: [facility] 2024 15:15-0400 Body weight 75.21 kg Elkin Holly MD Work Phone: [facility] 07-20-2024 09:20-0400 Body mass index (BMI) [Ratio] 23.4 kg/m2 DO Uma Ball Work Phone: [facility] 07-20-2024 09:20-0400 Diastolic blood pressure 89 mm[Hg] DO Uma Ball Work Phone: [facility] 07-20-2024 09:20-0400 Systolic blood pressure 139 mm[Hg] DO Uma Ball Work Phone: [facility] 07-20-2024 09:03-0400 Body height 177.8 cm DO Uma Ball Work Phone: [facility] 07-20-2024 09:03-0400 Body weight 74.16 kg DO Uma Ball Work Phone: [facility] 07-20-2024 09:03-0400 Heart rate 61 /min DO Uma Ball Work Phone: [facility] 07-20-2024 09:03-0400 Respiratory rate 12 /min DO Uma Ball Work Phone: [facility] 07-06-2024 14:02-0400 Body height 177.8 cm DO Uma Ball Work Phone: [facility] 07-06-2024 14:02-0400 Body mass index (BMI) [Ratio] 23.5 kg/m2 DO Uma Ball Work Phone: [facility] 07-06-2024 14:02-0400 Body temperature 97.5 [degF] DO Uma Ball Work Phone: [facility] 07-06-2024 14:02-0400 Body weight 74.38 kg DO Uma Ball Work Phone: [facility] 07-06-2024 14:02-0400 Diastolic blood pressure 65 mm[Hg] DO Uma Ball Work Phone: [facility] 07-06-2024 14:02-0400 Heart rate 59 /min DO Uma Ball Work Phone: [facility] 07-06-2024 14:02-0400 Respiratory rate 16 /min DO Uma Ball Work Phone: [facility] 07-06-2024 14:02-0400 SaO2% (BldA) [Mass fraction] 99 % DO Uma Ball Work Phone: [facility] 07-06-2024 14:02-0400 Systolic blood pressure 126 mm[Hg] DO Uma Ball Work Phone: [facility] 06-21-2024 10:21-0400 Body height 177.8 cm DO Uma Ball Work Phone: [facility] 06-21-2024 10:21-0400 Body mass index (BMI) [Ratio] 23.5 kg/m2 DO Uma Ball Work Phone: [facility] 06-21-2024 10:21-0400 Body temperature 97.9 [degF] DO Uma Ball Work Phone: [facility] 06-21-2024 10:21-0400 Body weight 74.38 kg DO Uma Ball Work Phone: [facility] 06-21-2024 10:21-0400 Diastolic blood pressure 65 mm[Hg] DO Uma Ball Work Phone: [facility] 06-21-2024 10:21-0400 Heart rate 60 /min DO Uma Ball Work Phone: [facility] 06-21-2024 10:21-0400 Respiratory rate 16 /min DO Uma Ball Work Phone: [facility] 06-21-2024 10:21-0400 SaO2% (BldA) [Mass fraction] 99 % DO Uma Ball Work Phone: [facility] 06-21-2024 10:21-0400 Systolic blood pressure 154 mm[Hg] DO Uma Ball Work Phone: [facility] 05-22-2024 08:37-0400 Blood Pressure Location Cristela WINTER [facility] 05-22-2024 08:37-0400 Body temperature 98.6 [degF] Cristela WINTER [facility] 05-22-2024 08:37-0400 Diastolic blood pressure 70 mm[Hg] Cristela WINTER [facility] 05-22-2024 08:37-0400 Heart rate 62 /min Cristela WINTER [facility] 05-22-2024 08:37-0400 Respiratory rate 16 /min Cristela WINTER [facility] 05-22-2024 08:37-0400 Systolic blood pressure 130 mm[Hg] Cristela WINTER [facility] 04-25-2024 09:24-0400 Body height 177.8 cm DO Uma Ball Work Phone: [facility] 04-25-2024 09:24-0400 Body mass index (BMI) [Ratio] 23.5 kg/m2 DO Uma Ball Work Phone: [facility] 04-25-2024 09:24-0400 Body weight 74.38 kg DO Uma Ball Work Phone: [facility] 04-25-2024 09:24-0400 Diastolic blood pressure 73 mm[Hg] DO Uma Ball Work Phone: [facility] 04-25-2024 09:24-0400 Heart rate 72 /min DO Uma Ball Work Phone: [facility] 04-25-2024 09:24-0400 Respiratory rate 12 /min DO Uma Ball Work Phone: [facility] 04-25-2024 09:24-0400 Systolic blood pressure 152 mm[Hg] DO Uma Ball Work Phone: [facility] 03-16-2024 11:22-0400 Body height 177.8 cm DO Uma Ball Work Phone: [facility] 03-16-2024 11:22-0400 Body mass index (BMI) [Ratio] 23.9 kg/m2 DO Uma Ball Work Phone: [facility] 03-16-2024 11:22-0400 Body temperature 97.2 [degF] DO Uma Ball Work Phone: [facility] 03-16-2024 11:22-0400 Body weight 75.74 kg DO Uma Ball Work Phone: [facility] 03-16-2024 11:22-0400 Diastolic blood pressure 70 mm[Hg] DO Uma Ball Work Phone: [facility] 03-16-2024 11:22-0400 Heart rate 98 /min DO Uma Ball Work Phone: [facility] 03-16-2024 11:22-0400 Respiratory rate 16 /min DO Uma Ball Work Phone: [facility] 03-16-2024 11:22-0400 SaO2% (BldA) [Mass fraction] 97 % DO Uma Ball Work Phone: [facility] 03-16-2024 11:22-0400 Systolic blood pressure 154 mm[Hg] DO Uma Ball Work Phone: [facility] 01-19-2024 08:29-0400 Body height 177.8 cm DO Uma Ball Work Phone: [facility] 01-19-2024 08:29-0400 Body mass index (BMI) [Ratio] 23.1 kg/m2 DO Uma Ball Work Phone: [facility] 01-19-2024 08:29-0400 Body weight 73.25 kg DO Uma Ball Work Phone: [facility] 01-19-2024 08:29-0400 Diastolic blood pressure 71 mm[Hg] DO Uma Ball Work Phone: [facility] 01-19-2024 08:29-0400 Heart rate 71 /min DO Uma Ball Work Phone: [facility] 01-19-2024 08:29-0400 Respiratory rate 12 /min DO Uma Ball Work Phone: [facility] 01-19-2024 08:29-0400 Systolic blood pressure 136 mm[Hg] DO Uma Ball Work Phone: [facility] 01-17-2024 15:05-0400 Body height 177.8 cm Elkin Holly MD Work Phone: [facility] 01-17-2024 15:05-0400 Body mass index (BMI) [Ratio] 22.93 kg/m2 Elkin Holly MD Work Phone: [facility] 01-17-2024 15:05-0400 Body temperature 97.7 [degF] Elkin Holly MD Work Phone: [facility] 01-17-2024 15:05-0400 Body weight 72.48 kg Elkin Holly MD Work Phone: [facility] 01-17-2024 15:05-0400 Diastolic blood pressure 69 mm[Hg] Elkin Holly MD Work Phone: [facility] 01-17-2024 15:05-0400 Systolic blood pressure 135 mm[Hg] Elkin Holly MD Work Phone: [facility] 12-17-2023 11:37-0400 Body temperature 97.2 [degF] DO Uma Ball Work Phone: [facility] 12-17-2023 11:37-0400 Body weight 78.47 kg DO Uma Ball Work Phone: [facility] 12-17-2023 11:37-0400 Diastolic blood pressure 69 mm[Hg] DO Uma Ball Work Phone: [facility] 12-17-2023 11:37-0400 Heart rate 66 /min DO Uma Ball Work Phone: [facility] 12-17-2023 11:37-0400 Respiratory rate 16 /min DO Uma Ball Work Phone: [facility] 12-17-2023 11:37-0400 SaO2% (BldA) [Mass fraction] 97 % DO Uma Ball Work Phone: [facility] 12-17-2023 11:37-0400 Systolic blood pressure 170 mm[Hg] DO Uma Ball Work Phone: [facility] 11-24-2023 08:24-0500 Body height 177.8 cm DO Uma Ball Work Phone: [facility] 11-24-2023 08:24-0500 Body mass index (BMI) [Ratio] 24.7 kg/m2 DO Uma Ball Work Phone: [facility] 11-24-2023 08:24-0500 Body temperature 97 [degF] DO Uma Ball Work Phone: [facility] 11-24-2023 08:24-0500 Body weight 78.01 kg DO Uma Ball Work Phone: [facility] 11-24-2023 08:24-0500 Diastolic blood pressure 56 mm[Hg] DO Uma Ball Work Phone: [facility] 11-24-2023 08:24-0500 Heart rate 60 /min DO Uma Ball Work Phone: [facility] 11-24-2023 08:24-0500 Respiratory rate 16 /min DO Uma Ball Work Phone: [facility] 11-24-2023 08:24-0500 SaO2% (BldA) [Mass fraction] 97 % DO Uma Ball Work Phone: [facility] 11-24-2023 08:24-0500 Systolic blood pressure 125 mm[Hg] DO Uma Ball Work Phone: [facility] 11-19-2023 10:43-0500 Body height 177.8 cm DO Uma Ball Work Phone: [facility] 11-19-2023 10:43-0500 Body weight 77.11 kg DO Uma Ball Work Phone: [facility] 11-08-2023 14:46-0500 Body height 177.8 cm Elkin Holly MD Work Phone: [facility] 11-08-2023 14:46-0500 Body mass index (BMI) [Ratio] 24.54 kg/m2 Elkin Holly MD Work Phone: [facility] 11-08-2023 14:46-0500 Body temperature 97.5 [degF] Elkin Holly MD Work Phone: [facility] 11-08-2023 14:46-0500 Body weight 77.56 kg Elkin Holly MD Work Phone: [facility] 11-08-2023 14:46-0500 Diastolic blood pressure 68 mm[Hg] Elkin Holly MD Work Phone: 0(438)772-997164 [place] [address] 11-08-2023 14:46-0500 Systolic blood pressure 155 mm[Hg] Elkin Holly MD Work Phone: 3(682)252-775564 [place] [address] 10-28-2023 18:15-0500 Diastolic blood pressure 76 mm[Hg] Elkin Holly MD Work Phone: 8(561)625-749864 [place] [address] 10-28-2023 18:15-0500 Heart rate 60 /min Elkin Holly MD Work Phone: 0(482)731-179564 [place] [address] 10-28-2023 18:15-0500 Respiratory rate 12 /min Elkin Holly MD Work Phone: 5(224)963-79[address] [place] [address] 10-28-2023 18:15-0500 SaO2% (BldA) [Mass fraction] 100 % Elkin Holly MD Work Phone: 1(928)930-123664 [place] [address] 10-28-2023 18:15-0500 Systolic blood pressure 166 mm[Hg] Elkin Holly MD Work Phone: 4(682)806-633964 [place] [address] 10-28-2023 17:00-0500 Body temperature 96.8 [degF] Elkin Holly MD Work Phone: 4(799)436-857264 [place] [address] 10-28-2023 12:33-0500 Body height 177.8 cm Elkin Holly MD Work Phone: 7(835)609-301464 [place] [address] 10-28-2023 12:33-0500 Body mass index (BMI) [Ratio] 24.39 kg/m2 Elkin Holly MD Work Phone: 0(946)668-284664 [place] [address] 10-28-2023 12:33-0500 Body weight 77.11 kg Elkin Holly MD Work Phone: 4(350)914-853264 [place] [address] 10-19-2023 10:00-0500 Body height 157.48 cm Uma Ball Other [facility] 10-19-2023 10:00-0500 Body mass index (BMI) [Ratio] 31.09 kg/m2 Uma Ball Other [employer] Other 10-19-2023 10:00-0500 Body weight 77.11 kg Uma Ball Other [facility] 10-19-2023 10:00-0500 Diastolic blood pressure 80 mm[Hg] Uma Ball Other [facility] 10-19-2023 10:00-0500 Respiratory rate 12 /min Uma Ball Other [facility] [employer] Other 10-19-2023 10:00-0500 Systolic blood pressure 138 mm[Hg] Uma Ball Other [facility] 10-08-2023 09:27-0500 Body height 179.1 cm Elkin Holly MD Work Phone: [facility] 10-08-2023 09:27-0500 Body mass index (BMI) [Ratio] 24.15 kg/m2 Elkin Holly MD Work Phone: [facility] 10-08-2023 09:27-0500 Body weight 77.43 kg Elkin Holly MD Work Phone: [facility] 07-05-2023 11:00-0400 Body height 157.48 cm Uma Ball Other [facility] [employer] Other 07-05-2023 11:00-0400 Body mass index (BMI) [Ratio] 30.5 kg/m2 Uma Ball Other [facility] [employer] Other 07-05-2023 11:00-0400 Body weight 75.66 kg Uma Ball Other [facility] [employer] Other 07-05-2023 11:00-0400 Diastolic blood pressure 68 mm[Hg] Uma Ball Other [facility] [employer] Other 07-05-2023 11:00-0400 Respiratory rate 12 /min Uma Ball Other [facility] [employer] Other 07-05-2023 11:00-0400 Systolic blood pressure 148 mm[Hg] Uma Ball Other [facility] [employer] Other 05-17-2023 08:48-0400 Blood Pressure Location Cristela WINTER [facility] 05-17-2023 08:48-0400 Diastolic blood pressure 69 mm[Hg] Cristela WINTER [facility] 05-17-2023 08:48-0400 Heart rate 65 /min Cristela WINTER [facility] 05-17-2023 08:48-0400 Respiratory rate 16 /min Cristela WINTER [facility] 05-17-2023 08:48-0400 Systolic blood pressure 106 mm[Hg] Cristela WINTER [facility] 04-30-2023 11:30-0400 Body height 157.48 cm Uma Ball Other [facility] [employer] Other 04-30-2023 11:30-0400 Body mass index (BMI) [Ratio] 31.16 kg/m2 Uma Ball Other [employer] Other 04-30-2023 11:30-0400 Body weight 77.29 kg Uma Ball Other [employer] Other 04-30-2023 11:30-0400 Diastolic blood pressure 66 mm[Hg] Uma Ball Other [employer] Other 04-30-2023 11:30-0400 Respiratory rate 12 /min Uma Ball Other [employer] Other 04-30-2023 11:30-0400 Systolic blood pressure 132 mm[Hg] Uma Ball Other [employer] Other 01-06-2023 11:30-0400 Body height 157.48 cm Uma Ball Other [employer] Other 01-06-2023 11:30-0400 Body mass index (BMI) [Ratio] 31.46 kg/m2 Uma Ball Other [employer] Other 01-06-2023 11:30-0400 Body weight 78.02 kg Uma Ball Other [employer] Other 01-06-2023 11:30-0400 Diastolic blood pressure 73 mm[Hg] Uma Ball Other [employer] Other 01-06-2023 11:30-0400 SaO2% (BldA) [Mass fraction] 96 % Uma Ball Other [employer] Other 01-06-2023 11:30-0400 Systolic blood pressure 130 mm[Hg] Uma Ball Other [employer] Other 05-04-2022 12:33-0400 Blood Pressure Location Cristela WINTER [facility] 05-04-2022 12:33-0400 Diastolic blood pressure 69 mm[Hg] Cristela WINTER [facility] 05-04-2022 12:33-0400 Heart rate 68 /min [facility] 05-04-2022 12:33-0400 Respiratory rate 16 /min Cristela WINTER [facility] 05-04-2022 12:33-0400 Systolic blood pressure 134 mm[Hg] Cristela WINTER [facility] 11-03-2021 16:00-0500 Body height 157.48 cm Vinh Leighann Other [employer] Other 11-03-2021 16:00-0500 Body mass index (BMI) [Ratio] 25.79 kg/m2 [employer] Other [employer] Other 11-03-2021 16:00-0500 Body weight 63.96 kg Vinh Leighann Other [employer] Other Encounters Encounter Date Encounter Type Care Provider Facility Start: 06-22-2025 End: 06-22-2025 Orders Only Maar Bradford [employer] Work Phone: [facility] Comment on above: Melanoma of scalp (P rimary Dx) Start: 06-18-2025 ambulatory [facility] Start: 06-18-2025 Encounter for preprocedural cardiovascular examination [facility] Start: 06-13-2025 End: 06-15-2025 Telephone encounter Duglas Walsh MD, PhD Work Phone: [facility] Comment on above: Advice Only Start: 06-10-2025 End: 06-18-2025 Evaluation and management of inpatient Ludwig Hawkins MD Work Phone: [email or web address] Comment on above: Failure to thrive in adult Start: 06-09-2025 End: 06-10-2025 Emergency department patient visit Felix Sweeney MD Work Phone: [facility] Start: 05-24-2025 ambulatory [facility] Facility: [facility] Start: 05-22-2025 ambulatory RENEE [facility] Start: 05-21-2025 End: 05-21-2025 Office outpatient [...] Start: 05-18-2025 End: 05-18-2025 ambulatory Cristela WINTER Facility:[facility] Start: 05-18-2025 End: 05-18-2025 Patient encounter procedure Cristela WINTER [facility] Start: 05-16-[address] [facility] Start: 05-11-2025 End: 05-11-2025 Patient encounter procedure Chiqui Navarro RN [facility] Comment on above: Melanoma of scalp (P rimary Dx) Start: 05-11-2025 End: 05-11-2025 ambulatory Chiqui Nvaarro RN [facility] Start: 05-11-2025 End: 05-11-2025 Subsequent hospital visit by physician Duglas Walsh MD, PhD Work Phone: [facility] Comment on above: Arrived Start: [...] on above: Medical Records Start: 05-01-2025 ambulatory [facility] Start: 04-30-2025 End: 04-30-2025 ambulatory [facility] Start: 04-24-2025 End: 04-24-2025 ambulatory [facility] Start: 04-19-2025 Registered Recurring Adilene Collins MD -[facility] Work Phone: Start: 04-19-2025 End: 04-19-2025 ambulatory Uma De Paz DO Work Phone: [facility] Work Phone: Start: 04-19-2025 End: 04-19-2025 Patient encounter procedure Adilene Collins MD -[facility] Ambulatory Work Phone: Start: 04-19-2025 ambulatory DUGLAS Monsivais [facility] Start: 04-18-2025 End: 04-18-2025 External Result Encounter Adilene Weinberg MD Work Phone: [facility] External Department Unsolicited Start: 04-18-2025 End: 04-18-2025 External Result Encounter Adilene Weinberg MD Work Phone: [facility] External Department Unsolicited Start: 04-17-2025 End: 04-17-2025 Office outpatient new 45 minutes Duglas Busby MD Work Phone: [facility] Comment on above: Melanoma of back (Mu lti) (Primary Dx) Start: 04-17-2025 End: 04-17-2025 ambulatory DUGLAS BUSBY [facility] Start: 04-04-2025 End: 04-04-2025 External Result Encounter Adilene Weinberg MD Work Phone: [facility] External Department Unsolicited Start: 04-04-2025 End: 04-04-2025 External Result Encounter Adilene Weinberg MD Work Phone: [facility] External Department Unsolicited Start: 04-04-2025 End: 04-04-2025 Patient encounter procedure Maite Wong [employer]RO[employer] [facility] [address] Work Phone: Start: 04-04-2025 End: 04-04-2025 ambulatory Uma De Paz DO Work Phone: [facility] Work Phone: Start: 03-28-2025 Non-patient / Non-visit Dylon mendoza MD -[facility] Work Phone: Start: 03-21-2025 End: 03-21-2025 Patient encounter procedure Uma De Paz DO -[facility] Work Phone: Start: 03-20-2025 ambulatory RENEE [facility] Start: 03-14-2025 End: 03-14-2025 [facility] Start: 03-09-2025 Non-patient / Non-visit Dylon mendoza MD -[facility] Work Phone: Start: 03-01-2025 End: 03-01-2025 [facility] Start: 02-20-2025 ambulatory RENEE [facility] Start: 01-26-2025 Non-patient / Non-visit Uma Espitia l DO -[facility] Work Phone: Start: 01-24-2025 End: 01-24-2025 [facility] Start: 01-23-2025 End: 01-23-2025 ambulatory Uma Ball DO Work Phone: [facility] Work Phone: Start: 01-23-2025 End: 01-23-2025 Patient encounter procedure Uma Ball DO Work Phone: [facility] [facility] Work Phone: Start: 01-22-2025 Non-patient / Non-visit Darin in Ball DO Work Phone: [facility] Work Phone: Start: 01-16-2025 End: 01-16-2025 Patient encounter procedure Uma Ball DO Work Phone: [facility] Work Phone: Start: 01-12-2025 [facility] Start: 01-10-2025 Registered Recurring Uma Ball DO Work Phone: [facility] [place] [facility] Work Phone: Start: 01-10-2025 End: 01-10-2025 ambulatory Uma Ball DO Work Phone: [facility] Work Phone: Start: 01-10-2025 End: 01-10-2025 Patient encounter procedure Uma Ball DO Work Phone: [facility] Physician [facility] Work Phone: Start: 01-05-2025 End: 01-05-2025 ambulatory Uma Ball DO Work Phone: [facility] Work Phone: Start: 01-05-2025 End: 01-05-2025 Patient encounter procedure Uma Ball DO Work Phone: [facility] Work Phone: Start: 01-02-2025 End: 01-02-2025 External Result Encounter Adilene Weinberg MD Work Phone: [facility] External Department Unsolicited Start: 01-02-2025 End: 01-02-2025 External Result Encounter Adilene Weinberg MD Work Phone: [facility] External Department Unsolicited Start: 01-02-2025 Registered Recurring Uma Ball DO Work Phone: [facility] Work Phone: Start: 12-25-2024 ambulatory [facility] Start: 12-15-2024 Non-patient / Non-visit Benjam in Ball DO Work Phone: [facility] Work Phone: Start: 11-30-2024 End: 11-30-2024 [facility] Start: 11-24-2024 ambulatory [facility] Start: 11-20-2024 End: 11-20-2024 ambulatory Uma Ball DO Work Phone: [facility] Work Phone: Start: 11-20-2024 End: 11-20-2024 Patient encounter procedure Uma Ball DO Work Phone: [facility] Work Phone: Start: 10-31-2024 End: 10-31-2024 ambulatory [facility] Start: 10-30-2024 End: 10-30-2024 Patient encounter procedure Uma Ball DO Work Phone: [facility] [address] Work Phone: Start: 10-30-2024 End: 10-30-2024 ambulatory Uma Ball DO Work Phone: [facility] Work Phone: Start: 10-05-2024 Registered Recurring Uma Ball DO Work Phone: [facility] Work Phone: Start: 10-05-2024 End: 10-05-2024 ambulatory Uma Ball DO Work Phone: [facility] Work Phone: Start: 10-05-2024 End: 10-05-2024 Patient encounter procedure Uma Ball DO Work Phone: [facility] Work Phone: Start: 10-05-2024 ambulatory [facility] Start: 10-02-2024 End: 10-02-2024 External Result Encounter Adilene Weinberg MD Work Phone: [facility] External Department Unsolicited Start: 10-02-2024 End: 10-02-2024 External Result Encounter Adilene Weinberg MD Work Phone: [facility] External Department Unsolicited Start: 10-02-2024 End: 10-02-2024 Patient encounter procedure Uma Ball DO Work Phone: [facility] [place] Work Phone: Start: 10-02-2024 End: 10-02-2024 ambulatory Adilene Weinberg Facility:[facility] Start: 09-29-2024 ambulatory [facility] Start: 09-08-2024 ambulatory [facility] Start: 09-07-2024 ambulatory [facility] Start: 08-28-2024 ambulatory [facility] Start: 08-22-2024 ambulatory [facility] Start: 08-16-2024 ambulatory [facility] Start: 08-09-2024 Non-patient / Non-visit Benjam in Ball DO Work Phone: [facility] Work Phone: Start: 08-08-2024 End: 08-08-2024 ambulatory DO Uma Ball Work Phone: [facility] Work Phone: Start: 08-08-2024 End: 08-08-2024 Patient encounter procedure DO Uma Ball Work Phone: [facility] Work Phone: Start: 2024 End: 2024 Office outpatient visit 15 minutes Elkin Holly MD Work Phone: 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) Start: 2024 End: [facility] Start: 08-02-2024 ambulatory [facility] Start: 07-20-2024 End: 07-20-2024 ambulatory DO Uma Ball Work Phone: [facility] Work Phone: Start: 07-20-2024 End: 07-20-2024 Patient encounter procedure DO Uma Ball Work Phone: [facility] Work Phone: Start: 07-18-2024 Patient encounter procedure DO Uma Ball Work Phone: [facility] Start: 07-13-2024 ambulatory [facility] Start: 07-06-2024 Registered Recurring DO Benjam in Ball Work Phone: [facility] Work Phone: Start: 07-06-2024 End: 07-06-2024 ambulatory DO Uma Ball Work Phone: [facility] Work Phone: Start: 07-06-2024 End: 07-06-2024 Patient encounter procedure DO Uma Ball Work Phone: [facility] Work Phone: Start: 07-04-2024 End: 07-04-2024 Patient encounter procedure DO Uma Ball Work Phone: [facility] [address] Work Phone: Start: 07-04-2024 End: 07-04-2024 ambulatory DO Uma Ball Work Phone: [facility] Work Phone: Start: 06-30-2024 End: 07-03-2024 External Result Encounter Adilene Weinberg MD Work Phone: [facility] External Department Unsolicited Start: 06-30-2024 End: 07-03-2024 External Result Encounter Adilene Weinberg MD Work Phone: [facility] External Department Unsolicited Start: 06-30-2024 Registered Recurring DO Benjam in Ball Work Phone: [facility] [place] [facility] Work Phone: Start: 06-21-2024 Registered Recurring DO Benjam in Ball Work Phone: [facility] [place] [facility] Work Phone: Start: 06-21-2024 End: 06-21-2024 ambulatory DO Uma De Paz Work Phone: [facility] Work Phone: Start: 06-21-2024 End: 06-21-2024 Patient encounter procedure DO Uma De Paz Work Phone: [facility] Work Phone: Start: 06-12-2024 End: 06-12-2024 External Result Encounter Adilene Weinberg MD Work Phone: [facility] External Department Unsolicited Start: 06-12-2024 End: 06-12-2024 External Result Encounter Adilene Weinberg MD Work Phone: [facility] External Department Unsolicited Start: 06-07-2024 Non-patient / Non-visit DO Alexi De Paz Work Phone: [facility] Work Phone: Start: 05-22-2024 End: 05-22-2024 ambulatory Cristela WINTER Facility:[facility] Start: 05-22-2024 End: 05-22-2024 Patient encounter procedure Cristela R WINTER [facility] Start: 05-10-2024 Non-patient / Non-visit DO Alexi De Paz Work Phone: [facility] Work Phone: Start: 05-01-2024 End: 05-01-2024 Patient encounter procedure Caryl Ley MD Work Phone: Ophthalmology Comment on above: 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); Myogenic ptosis of bilateral eyelids Start: 04-25-2024 End: 04-25-2024 ambulatory DO Uma De Paz Work Phone: [facility] Work Phone: Start: 04-25-2024 End: 04-25-2024 Patient encounter procedure DO Uma De Paz Work Phone: [facility] Work Phone: Start: 04-20-2024 Non-patient / Non-visit DO Alexi De Paz Work Phone: [facility] Work Phone: Start: 03-16-2024 End: 03-16-2024 ambulatory DO Uma Ball Work Phone: [facility] Work Phone: Start: 03-16-2024 End: 03-16-2024 Patient encounter procedure DO Uma Ball Work Phone: [facility] Work Phone: Start: 03-16-2024 Registered Recurring DO Darin in Ball Work Phone: [facility] Work Phone: Start: 02-16-2024 End: 02-16-2024 ambulatory DEBBIE GORDON Not Available Start: 01-19-2024 End: 01-19-2024 ambulatory DO Uma De Paz Work Phone: [facility] Work Phone: Start: 01-19-2024 End: 01-19-2024 Patient encounter procedure DO Uma De Paz Work Phone: [facility] Work Phone: Start: 01-17-2024 End: 01-17-2024 Initial inpatient consult new/estab pt 55 min Debbie Alfaro MD Work Phone: [facility] Comment on above: Brow ptosis, right ( Primary Dx); Dermatochalasis of right upper eyelid Start: 01-17-2024 End: 01-17-2024 Office outpatient visit 15 minutes Elkin Holly MD Work Phone: [facility] Comment on above: 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) Start: 12-27-2023 End: 12-27-2023 ambulatory DO Uma De Paz Work Phone: [facility] Work Phone: Start: 12-27-2023 End: 12-27-2023 Patient encounter procedure DO Uma De Paz Work Phone: [facility] [address] Work Phone: Start: 12-17-2023 End: 12-17-2023 ambulatory DO Uma De Paz Work Phone: [facility] Work Phone: Start: 12-17-2023 End: 12-17-2023 Patient encounter procedure DO Uma De Paz Work Phone: [facility] Work Phone: Start: 12-17-2023 Registered Recurring DO Benjam in Ball Work Phone: [facility] Work Phone: Start: 12-10-2023 End: 12-10-2023 Patient encounter procedure DO Uma Ball Work Phone: [facility] Work Phone: Start: 11-24-2023 Registered Recurring DO Benjam in Ball Work Phone: [facility] Work Phone: Start: 11-24-2023 End: 11-24-2023 ambulatory DO Uma Ball Work Phone: [facility] Work Phone: Start: 11-24-2023 End: 11-24-2023 Patient encounter procedure DO Uma Ball Work Phone: [facility] Work Phone: Start: 11-19-2023 End: 11-19-2023 ambulatory DO Uma Ball Work Phone: [facility] Work Phone: Start: 11-19-2023 End: 11-19-2023 Patient encounter procedure DO Uma Ball Work Phone: [facility]Pet [facility] Work Phone: Start: 11-08-2023 End: 11-08-2023 Postop follow up visit related to original px Elkin Holly MD Work Phone: [facility] Comment on above: Malignant melanoma o f forehead (CMS/HCC) Start: 10-28-2023 End: 10-28-2023 ambulatory ELKIN HOLLY [facility] Start: 10-28-2023 End: 10-28-2023 Subsequent hospital visit by physician Elkin Holly MD Work Phone: [facility] [place] Comment on above: 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); Post-op pain Start: 10-28-2023 End: 10-28-2023 Subsequent hospital visit by physician Shasha Plascencia 2 [facility] Comment on above: Malignant melanoma o f forehead (CMS/HCC) Start: 10-19-2023 End: 10-19-2023 ambulatory Uma De Paz Other [employer] Other Start: 10-19-2023 Encounter for other preprocedural examination Uma De Paz [facility] Start: 10-19-2023 Office outpatient vi sit 25 minutes Uma De Paz [facility] Start: 10-19-2023 End: 10-19-2023 Patient encounter procedure DO Uma De Paz Work Phone: [facility] Work Phone: Start: 10-08-2023 End: 10-08-2023 Office outpatient new 45 minutes Elkin Holly MD Work Phone: [facility] Comment on above: Malignant melanoma o f forehead (CMS/HCC) Start: 07-19-2023 End: 07-19-2023 ambulatory DO Uma De Paz Work Phone: [facility] Work Phone: Start: 07-19-2023 End: 07-19-2023 Patient encounter procedure DO Uma De Paz Work Phone: [facility] [address] Work Phone: Start: 07-13-2023 End: 07-13-2023 ambulatory Uma De Paz Other [employer] Other Start: 07-13-2023 Telephone encounter Uma De Paz [facility] Start: 07-05-2023 End: 07-05-2023 ambulatory Uma De Paz Other [employer] Other Start: 07-05-2023 Patient encounter procedure Uma De Paz [facility] Start: 05-31-2023 End: 05-31-2023 ambulatory Uma De Paz Other [employer] Other Start: 05-31-2023 Nursing evaluation o f patient and report Uma Zandra [facility] Zandra [facility] Start: 05-17-2023 End: 05-17-2023 Patient encounter procedure Cristela Carbajal MOY [facility] Start: 04-30-2023 End: 04-30-2023 ambulatory Uma De Paz Other [employer] Other Start: 04-30-2023 Office outpatient vi sit 15 minutes Uma De Paz [facility] Zandra [facility] Start: 03-30-2023 End: 03-30-2023 ambulatory DO Uma De Paz Work Phone: [facility] Work Phone: Start: 03-30-2023 End: 03-30-2023 Departed Referred DO Uma De Paz Work Phone: [facility] [place] Work Phone: Start: 03-23-2023 End: 03-23-2023 ambulatory DO Uma De Paz Work Phone: [facility] Work Phone: Start: 03-23-2023 End: 03-23-2023 Patient encounter procedure DO Uma De Paz Work Phone: [facility] [address] Work Phone: Start: 02-01-2023 End: 03-03-2023 ambulatory HANSEN Stephon VALERIO Facility:[facility] Start: 01-22-2023 Office outpatient vi sit 15 minutes Uma De Paz [facility] Start: 01-22-2023 End: 01-22-[address] UMA DE PAZ [employer] Other Start: 01-21-2023 End: 01-21-2023 ambulatory Uma Zandra Other [employer] Other Start: 01-21-2023 Telephone encounter [facility] DODGE [facility] Start: 01-06-2023 End: 01-06-2023 ambulatory Uma De Paz Other [employer] Other Start: 01-06-2023 Office outpatient vi sit 25 minutes [facility] Start: 01-04-2023 End: 01-29-[address] UMA DE PAZ Facility:[facility] Start: 12-28-2022 End: 12-28-2022 ambulatory Uma De Paz Other [employer] Other Start: 12-28-2022 Telephone encounter Uma DODGE [facility] Start: 12-02-2022 End: 01-01-[address] UMA DE PAZ Facility:[facility] Start: 11-19-2022 End: 11-19-2022 ambulatory DO Uma De Paz Work Phone: [facility] Work Phone: Start: 11-19-2022 End: 11-19-2022 Patient encounter procedure DO Uma Zandra Work Phone: [facility] [address] Work Phone: Start: 11-05-2022 End: 11-06-2022 ambulatory RENEE JUDGE [employer] Other Start: 11-05-2022 Telephone encounter [facility] Start: 11-04-2022 End: 12-02-[address] UMA DE PAZ Facility:[facility] Start: 10-05-2022 End: 11-04-[address] UMA DE PAZ Facility:[facility] Start: 10-02-2022 Encounter for preprocedural cardiovascular examination RENEE JUDGE [facility] Start: 09-29-2022 End: 09-30-2022 ambulatory RENEE JUDGE Facility:[facility] Start: 09-29-2022 End: 09-30-2022 Encounter for preprocedural cardiovascular examination RENEE JUDGE Facility:[facility] Start: 09-03-2022 End: 10-04-[address] UMA DE PAZ Facility:[facility] Start: 08-05-2022 End: 08-06-[address] UMA DE PAZ Facility:[facility] Start: 2022 End: 09-02-[address] UMA DE PAZ Facility:[facility] Start: 07-20-2022 End: 07-20-2022 ambulatory DO Uma De Paz Work Phone: [facility] Work Phone: Start: 07-20-2022 End: 07-20-2022 Patient encounter procedure DO Uma De Paz Work Phone: [facility] [address] Start: 07-06-2022 End: 08-03-2022 ambulatory SHAIKH Stephon LUO Facility:[facility] Start: 06-04-2022 End: 07-04-2022 ambulatory SHAIKH Stephon LUO Facility:[facility] Start: 05-07-2022 End: 05-07-2022 ambulatory DEBBIE GORDON Facility:[facility] Start: 05-04-2022 End: 05-04-2022 Patient encounter procedure Cristela WINTER [facility] Start: 05-04-2022 End: 06-03-2022 ambulatory SHAIKH Stephon LUO Facility:[facility] Start: 04-20-2022 End: 04-21-2022 ambulatory RENEE JUDGE Facility:[facility] Start: 04-16-2022 Adult health examination Cezar De Paz Other [employer] Other Start: 04-16-2022 End: 04-16-2022 ambulatory DEBBIE GORDON Facility:[facility] Start: 04-07-2022 End: 04-08-[address] CRISTELA WINTER . Facility:[facility] Start: 04-03-2022 End: 05-01-2022 ambulatory SHAIKH Stephon LUO Facility:[facility] Start: 11-03-2021 End: 11-03-2021 ambulatory Vinh Lawton Other [employer] Other Start: 11-03-2021 Postop follow up vis it related to original px Vinh Lawton [facility] Start: 10-10-2021 End: 10-10-2021 ambulatory Vinh Lawton Other [employer] Other Start: 10-10-2021 FQ visit new patient Vinh Lawton [facility] Start: 06-20-2021 End: 08-03-2021 ambulatory [facility] Facility:[facility] Start: 04-07-2019 Notes/Results Only Other Other NOTE S/RESULTS Start: 04-07-2019 End: 04-07-2019 Patient encounter procedure Other Other [facility] Start: 03-15-2019 Notes/Results Only Other Other NOTE S/RESULTS Start: 03-15-2019 End: 03-15-2019 Patient encounter procedure Other Other [facility] Start: 03-02-2019 Notes/Results Only Other Other NOTE S/RESULTS Start: 03-02-2019 End: 03-02-2019 Patient encounter procedure Other Other [facility] Start: 02-24-2019 Notes/Results Only Other Other NOTE S/RESULTS Start: 02-24-2019 End: 02-24-2019 Patient encounter procedure Other Other [facility] Start: 02-08-2019 Notes/Results Only Other Other NOTE S/RESULTS Start: 02-08-2019 End: 02-08-2019 Patient encounter procedure Other Other [facility] Start: 12-16-2018 Notes/Results Only Other Other NOTE S/RESULTS Start: 12-16-2018 End: 12-16-2018 Patient encounter procedure Other Other [facility] Start: 09-29-2018 Notes/Results Only Other Other NOTE S/RESULTS Start: 09-29-2018 End: 09-29-2018 Patient encounter procedure Other Other [facility] Procedures Date Procedure Procedure Detail Performing Clinician Start: 06-18-2025 Assay of magnesium Donna jose Hurtado PA-C Work Phone: Start: 06-18-2025 CBC AND ELECTRONIC DIFF Natasha Hurtado PA-C Work Phone: Start: 06-18-2025 Complete blood count with white cell differential, automated Natasha CHAUC Work Phone: Start: 06-17-2025 Ct head/brain w/o co ntrast material Zackaryra Foy Abner RECYCLE COORDINATOR-[employer] Work Phone: Start: 06-17-2025 Assay of magnesium [...] Assay of magnesium Ashl charles Taylor Marlonmarivelart [employer] COORD[employer]ATOR[employer] Work Phone: Start: 06-10-2025 CBC AND ELECTRONIC DIFF Siria N Marlonkhart [employer] COORD[employer]ATOR[employer] Work Phone: Start: 06-10-2025 Complete blood count with white cell differential, automated Siria N Marlonkhart [employer] CO[employer] Work Phone: Start: 06-09-2025 Ct angiography chest [...] resolution one locus ea Oxana C Espinosa [employer] COORD[employer]ATOR[employer] Work Phone: Start: 05-10-2025 OTHER AP REQUEST Oxana Antoine Espinosa [employer] CO[employer] Work Phone: Start: 05-10-2025 TUMOR HOTSPOT MUTATI ON PANEL, REQUEST Oxana C Espinosa [employer] CO[employer] Work Phone: Start: 05-10-2025 CBC AND ELECTRONIC DIFF Funmi Saldana Margareth [employer] COORD[employer]ATOR[employer] Work Phone: Start: 05-10-2025 Complete blood count with white cell differential, automated Funmi Zuluaga [employer] COORD[employer]ATOR[employer] Work Phone: Start: 05-10-2025 Comprehensive metabo lic panel Funmi Zuluaga [employer] COORD[employer]ATOR[employer] Work Phone: Start: 04-18-2025 Positron emission to [...] abdomen and pelvis with contrast DO Uma AutoUncle Work Phone: Start: 06-12-2024 CT of head with contrast DO [facility] Work Phone: Start: 06-12-2024 CT of soft tissues o f neck with contrast DO Uma AutoUncle Work Phone: Start: 06-12-2024 CT of thorax with contrast DO Uma Auto[employer] Work Phone: Start: 03-14-2024 Ultrasonography of limb DO [facility] Work Phone: Start: 11-29-2023 CT of head with contrast DO [facility] Work Phone: Start: 11-19-2023 Positron emission to mography with computed tomography DO [facility] Work Phone: Start: 10-28-2023 DERMPATH LAB- DERMATOPATHOLOGY ELKIN HOLLY Start: 10-28-2023 DISCHARGE PATIENT ELKIN HOLLY Start: 10-28-2023 Lymphatics & lymph n odes imaging Elkin Holly MD Work Phone: Start: 04-07-[address] YEIMI WINTER . Comment on above: Performed By: #### P SAD #### [facility] [address] [place] [address] Dr. Robb Martin Start: 04-07-2019 Electrocardiogram Other Other Start: 04-07-2019 IMPLANT RECORD (OUTSIDE) Other Other Start: 03-15-2019 OUTSIDE PROCEDURES O[facility] Other Start: 03-02-2019 Echocardiography Other Other Start: 02-24-2019 OUTSIDE PROCEDURES O[facility] Other Start: 02-08-2019 Electrocardiogram Other Other Start: 12-16-2018 OUTSIDE PROCEDURES O[facility] Other Start: 09-29-2018 ULTRASOUND (OUTSIDE) Ot her Other Start: 12-23-2015 Screening for malign ant neoplasm of colon Uma AutoUncle Other Start: 08-27-2014 Cystoscopy Cristela ZUNIGA Start: [...] Author Start: 03-14-2027 Diabetes Screening Diabetes Screening [facility] Start: 06-18-2026 Potassium [Moles/volume] in Serum or Plasma POTASSIUM [facility] Start: 05-21-2026 Potassium [Moles/volume] in Serum or Plasma POTASSIUM [facility] Start: 05-10-2026 Potassium [Moles/volume] in Serum or Plasma POTASSIUM [facility] Start: 10-01-2025 End: 10-01-2025 Clinical Support Encounter Clinical Lab [facility] Start: 09-13-2025 End: 09-13-2025 ambulatory 09/13/2025 12:30 PM EST Infusion Visit [facility] [address] [facility] [address] [place] [phone] [facility] Start: 09-13-2025 End: 09-13-2025 Clinical Support Encounter Clinical Lab [facility] Start: 09-03-2025 End: 09-03-2025 Clinical Support Encounter Clinical Lab [facility] Start: 08-16-2025 End: 08-16-2025 Clinical Support Encounter Clinical Lab [facility] Start: 08-06-2025 End: 08-06-2025 Clinical Support Encounter Clinical Lab [facility] Start: 07-19-2025 End: 07-19-2025 ambulatory 07/19/2025 12:30 PM EDT Infusion Visit [facility] [address] [place] [phone] [facility] Start: 07-19-2025 End: 07-19-2025 Clinical Support Encounter Clinical Lab [facility]son 1 Start: 07-05-2025 End: 07-05-2025 ambulatory 07/05/2025 2:30 PM EDT Infusion Visit [facility] [address] [place] [phone] [facility] Start: 07-05-2025 End: 07-05-2025 Clinical Support Encounter Clinical Lab [facility] Hobson 1 Start: 06-21-2025 End: 06-21-2025 Clinical Support Encounter Clinical Lab [facility] Hobson 1 Start: 06-04-2025 COVID-19 VACCINE ( season) COVID-19 VACCINE () [facility] Start: 06-04-2025 Influenza vaccination [facility] Start: 05-24-2025 End: 05-24-2025 Telemedicine consultation with patient 05/24/2025 8:40 AM EDT Telemedicine [facility] [address] [place] [phone] Wendy Desai MD [address] [place] [phone] [facility] Start: 05-21-2025 End: 05-21-2026 CT Abdomen and Pelvis W contrast IV CT ABDOMEN/PELVIS WITH CONTRAST Imaging Routine Melanoma of scalp Expected: 05/21/2025, Expires: 05/21/2026 [facility] Comment on above: Expected: 05/21/2025, Expires: Start: 05-21-2025 End: 05-21-2026 CT Chest W contrast IV CT CHEST WITH CONTRAST Imaging Routine Melanoma of scalp Expected: 05/21/2025, Expires: 05/21/2026 [facility] Comment on above: Expected: 05/21/2025, Expires: Start: 05-21-2025 End: 05-21-2026 CT Neck W contrast IV CT NECK WITH CONTRAST Imaging Routine Melanoma of scalp Expected: 05/21/2025, Expires: 05/21/2026 [facility] Comment on above: Expected: 05/21/2025, Expires: Start: 05-21-2025 End: 05-21-2025 Patient encounter procedure 05/21/2025 1:20 PM EDT Office Visit [facility] [address] [phone] Duglas Walsh MD, PhD [address] [phone] [facility] Start: 05-21-2025 End: 05-21-2025 Clinical Support Encounter Clinical Lab Duane Hobson Yoshi Start: 05-11-2025 End: 05-11-2025 Patient encounter procedure 05/11/2025 8:15 AM EDT Appointment Imaging at [facility] [address] [phone] Duglas Walsh MD, PhD [address] [phone] Imaging at [facility] Start: 05-10-2025 End: 05-10-2025 Clinical Support Encounter Clinical Lab Duane Hobson 1 Start: 05-07-2025 Subsequent hospital visit by physician 05/07/2025 Hospital Encounter [facility] [place] [address] [place] [phone] [place] [address] [address] [place] [address] [facility] [place] Start: 04-19-2025 Patient referral [facility] Work Phone: Start: 07-24-2024 End: 07-24-2024 Patient encounter procedure 07/24/2024 3:30 PM EDT Office Visit [address] Garcia [address] [place] [address] [place] [address] [address] Department [place] [address] [facility] Start: 06-04-2024 COVID-19 VACCINE ( season) COVID-19 VACCINE () [facility] Start: 06-04-2024 COVID-19 Vaccine ( season) COVID-19 Vaccine () [facility] Start: 06-04-2024 COVID-19 Vaccine () COVID-19 Vaccine () [facility] Start: 06-04-2024 Influenza vaccination Influenza Vaccine (#1) [facility] Start: 01-17-2024 End: 01-17-2024 Patient encounter procedure 01/17/2024 3:30 PM EDT Office Visit [address] Garcia [address] [place] [address] [place] [address] [address] Department [place] [address] [facility] Start: 11-08-2023 End: 11-08-2024 PT Unspecified body region NM PET CT melanoma restaging Imaging Routine Malignant melanoma of forehead (CMS/HCC) Expected: 11/08/2023, Expires: 11/08/2024 [facility] Service Area Work Phone: Comment on above: Expected: 11/08/2023, Expires: Start: 10-28-2023 End: 10-28-2023 Admission to same day surgery center 10/28/2023 11:00 AM EST - 10/28/2023 2:35 PM EST Surgery [facility] [place] [id number] [place] [phone] [place] [address] [address] Department [place] [address] ( sln inj @ 7:00 am ) Excision Lesion Skin Head/Neck [96182 (CPT )] [facility] [place] Comment on above: ( sln inj @ 7:00 am ) Excision Lesion Sk in Head/Neck [82610 (CPT )] Start: 10-28-2023 End: 10-28-2023 Ct guidance needle placement Biopsy Lymph Node Head/Neck Malignant melanoma of forehead (CMS/HCC) 10/28/2023 11:00 AM EST [facility] [place] Start: 10-28-2023 End: 10-28-2023 Dermal autograft f/s/n/h/f/g/m/d gt 1st 100 Excision Full Thickness Skin Graft Torso Malignant melanoma of forehead ([facility]/HCC) 10/28/2023 11:00 AM EST [facility] [place] Start: 10-28-2023 End: 10-28-2023 Excision malignant lesion f/e/e/n/l >4.0 cm Excision Lesion Skin Head/Neck Malignant melanoma of forehead ([facility]/HCC) 10/28/2023 11:00 AM EST [facility] [place] Start: 10-28-2023 Subsequent hospital visit by physician 10/28/2023 9:30 AM EST Hospital Encounter [facility] [place] [address] [place] [address] [phone] [place] [address] [address] Department [place] [address] [facility] [place] Start: 10-28-2023 End: 10-28-2023 Patient encounter procedure 10/28/2023 7:00 AM EST Appointment [facility] [id number] [place] [phone] [facility] Start: 10-08-2023 End: 10-08-2024 NM Lymphatic vessels Views W radionuclide intra lymphatic NM lymphoscintigram Imaging Routine Malignant melanoma of forehead (CMS/HCC) Expected: 10/08/2023, Expires: 10/08/2024 [facility] Work Phone: Comment on above: Expected: 10/08/2023, Expires: Start: 10-08-2023 End: 10-08-2024 Request for Pre-Admission Testing Visit Request for Pre-Admission Testing Visit Procedures Routine Malignant melanoma of forehead (CMS/HCC) Expected: 10/08/2023 (Approximate), Expires: 10/08/2024 [facility] Service Area Work Phone: Comment on above: Expected: 10/08/2023 (Approximate), Expi res: 10/08/2024 Start: 10-04-2023 Advance Directive Discussion Advance Directive Discussion [facility] Start: 06-04-2023 COVID-19 Vaccine ( season) COVID-19 Vaccine ( season) [facility] Start: 06-04-2023 Covid-19 Vaccine ( season) Covid-19 Vaccine ( season) [facility] Start: 06-04-2023 Influenza vaccination Influenza Vaccine (#1) [facility] Start: 09-30-2022 COVID-19 Vaccine (5 - Moderna series) COVID-19 Vaccine (5 - Moderna series) [facility] Start: 07-20-2022 [facility] Start: 10-04-2019 Pneumococcal vaccination [facility] Start: 10-04-2019 Pneumococcal Vaccine: 65+ Years (2 - PPSV23 or PCV20) Pneumococcal Vaccine: 65+ Years (2 - PPSV23 or PCV20) [facility] Start: 10-04-2019 Pneumococcal Vaccine: 65+ Years (2 of 2 - PPSV23 or PCV20) Pneumococcal Vaccine: 65+ Years (2 of 2 - PPSV23 or PCV20) [facility] Start: 10-04-2019 Pneumococcal Vaccine: 65+ Years (2 of 2 - PPSV23) Pneumococcal Vaccine: 65+ Years (2 of 2 - PPSV23) [facility] Start: 06-04-2019 Influenza vaccination INFLUENZA VACCINE (#1) [facility] Start: 06-17-2013 DTaP/Tdap/Td Vaccines (1 - Tdap) DTaP/Tdap/Td Vaccines (1 - Tdap) [facility] Start: 06-17-2013 Urine microalbumin profile DTaP,Tdap,Td Vaccine (1 - Tdap) [facility] Start: 2012 RSV High Risk: (Elderly (60+) or Population) (1 - 1-dose 75+ series) RSV High Risk: (Elderly (60+) or Population) (1 - 1-dose 75+ series) [facility] Start: 2012 RSV VACCINE (1 - 1-dose 75+ series) RSV VACCINE (1 - 1-dose 75+ series) [facility] Start: 2002 Pneumococcal vaccination PNEUMOCOCCAL VACCINE SERIES (1 of 2 - PCV13) [facility] Start: 1997 RSV Vaccine (1 - 1-dose 60+ series) RSV Vaccine (1 - 1-dose 60+ series) [facility] Start: 1987 Colonoscopy COLON CANCER SCREENING DISCUSSION [facility] Start: 1987 Pneumococcal vaccination PNEUMOCOCCAL VACCINE SERIES (1 of 1 - PCV) [facility] Start: 1987 Zoster vaccine hzv live for subcutaneous use ZOSTER (SHINGLES) VACCINE (1 of 2) [facility] Start: 1987 Zoster Vaccines (1 of 2) Zoster Vaccines (1 of 2) [facility] Start: 1982 Screening for malignant neoplasm of colon COLORECTAL CANCER SCREENING DISCUSSION [facility] Start: 1959 DTaP/Tdap/Td Vaccines (1 - Tdap) DTaP/Tdap/Td Vaccines (1 - Tdap) [facility] Start: 1956 Shingrix Vaccine (1 of 2) Shingrix Vaccine (1 of 2) [facility] Start: 1956 Third diphtheria, tetanus and acellular pertussis (DTaP) vaccination TDAP (ADULT) [facility] Start: 1955 Anxiety Screening Anxiety Screening [facility] Start: 1955 Depression Screening Depression Screening [facility] Start: 1955 Diabetes mellitus screening Diabetes Screening [facility] Start: 1955 Tetanus vaccination TETANUS [facility] Start: 02-01-1938 Examination of skin Derm Melanoma Skin Check [facility] Start: 1937 Creatinine measurement Creatinine Level [facility] Start: 1937 Echocardiography Echocardiogram [facility] Start: 1937 Lipid panel Lipid Panel [facility] Start: 1937 Medicare Annual Wellness Visit Medicare Annual Wellness Visit (AWV) [facility] Start: 1937 Potassium measurement Potassium Level [facility] Start: 1937 Skin Cancer Screening Skin Cancer Screening [facility] Start: 1937 Tetanus vaccination TETANUS [facility] CBC W Auto Different ial panel - Blood CBC auto differential Lab Routine 04/04/2025 12:59 PM EDT [facility] Work Phone: Comprehensive metabo lic 1999 panel - Serum or Plasma [facility] Comprehensive metabo lic 1999 panel - Serum or Plasma [facility] Comprehensive metabo lic 1999 panel - Serum or Plasma [facility] Comprehensive metabo lic 1999 panel - Serum or Plasma [facility] End: 10-28-2023 Continuous Pulse oximetry, In Phase 1 Continuous Pulse oximetry, In Phase 1 Respiratory Care Routine Continuous until discontinued starting 10/28/2023 [facility] Service Area Work Phone: Comment on above: Continuous until discontinued starting 0 10/28/2023 CT Abdomen and Pelvi s W contrast IV [facility] CT Abdomen and Pelvi s W contrast IV [facility] CT Chest W contrast IV [facility] CT Chest W contrast IV [facility] Head W contrast IV [facility] CT Head WO and W contrast IV [facility] CT Head WO and W contrast IV [facility] CT Neck W contrast IV [facility] CT Neck W contrast IV [facility] Dermatopathology- DE RM LAB [facility] Service Area Work Phone: Comment on above: Release Upon Ordering for 1 Occurrences starting 10/28/2023 End: 06-10-2025 Echocardiography ECHOCARDIOGRAM Echocardiography Urgent One Time for 1 Occurrences starting 06/10/2025 until 06/10/2025 [facility] Work Phone: Comment on above: One Time for 1 Occurrences starting 04/2025 until 06/10/2025 Excision tumor soft tis back/flank subq 3 cm/> EXCISION, LESION, BACK Melanoma of back (Multi) [facility] [place] Fwpnqcv-6-Xwalqfard dehydrogenase [Enzymatic activity/mass] in Red Blood Cells [facility] Work Phone: Measurement of total hemoglobin concentration [facility] Work Phone: MR Abdomen WO and W contrast IV [facility] End: 10-28-2023 NM Spect/CT Localization add on Single Day [facility] Service Area Work Phone: Comment on above: Once for 1 Occurrences starting 10/28/19 24 until 10/28/2023 OTHER AP REQUEST OTHER AP REQUES T Lab STAT Melanoma of scalp Metastatic melanoma 05/10/2025 10:53 AM EDT [facility] Patient Education Nivolumab [facility] Work Phone: Patient referral [facility] Work Phone: Standard ECG ECG ECG Routine Melanoma of scalp Other restrictive cardiomyopathy 05/10/2025 11:58 AM EDT [facility] End: 06-09-2025 Standard ECG ECG ECG STAT One Time for 1 Occurrences starting 06/09/2025 until 06/09/2025 [facility] Comment on above: One Time for 1 Occurrences starting 03/2025 until 06/09/2025 End: 06-10-2025 Standard ECG ECG ECG STAT One Time for 1 Occurrences starting 06/10/2025 until 06/10/2025 [facility] Comment on above: One Time for 1 Occurrences starting 04/2025 until 06/10/2025 SURG PATH ADD ON (PA TH HAS SPECIMEN) SURG PATH ADD ON (PATH HAS SPECIMEN) Surg Path STAT Melanoma of scalp Metastatic melanoma 05/10/2025 10:53 AM EDT [facility] End: 06-12-2025 THYROID-STIMULATING IMMUNOGLOBULIN THYROID-STIMULATING IMMUNOGLOBULIN Lab Routine One Time for 1 Occurrences starting 06/12/2025 until 06/12/2025 [facility] Work Phone: Comment on above: One Time for 1 Occurrences starting 06/2025 until 06/12/2025 THYROID-STIMULATING IMMUNOGLOBULIN THYROID-STIMULATING IMMUNOGLOBULIN Lab Routine 06/12/2025 12:40 AM EDT [facility] TUMOR HOTSPOT MUTATI ON PANEL, REQUEST TUMOR HOTSPOT MUTATION PANEL, REQUEST Lab STAT Melanoma of scalp Metastatic melanoma 05/10/2025 10:53 AM EDT [facility] US Extremity [facility] US Extremity [facility] US Lower extremity v ein - left [facility] Immunizations Immunization Date Immunization Notes Care Provider Reji siu 07-20-2024 influenza, high dose seasonal, preservative-free DO Uma De Paz Work Phone: [facility] 07-20-2024 influenza virus vaccine, unspecified formulation Duglas Busby MD Work Phone: [facility] Work Phone: 08-12-2023 Prevnar 20 Uma Zandra Other [facility] 07-05-2023 influenza virus vaccine, unspecified formulation DO Uma De Paz Work Phone: [facility] 07-05-2023 influenza, high dose seasonal, preservative-free Uma De Paz Other [facility] [employer] Other 08-20-2022 influenza virus vaccine, split virus (incl. purified surface antigen) Uma De Paz Other [facility] [employer] Other 08-20-2022 influenza virus vaccine, unspecified formulation Elkin Holly MD Work Phone: [facility] 07-22-2021 influenza virus vaccine, split virus (incl. purified surface antigen) Uma De Paz Other [facility] [employer] Other 07-22-2021 influenza virus vaccine, unspecified formulation DO Uma De aPz Work Phone: [facility] 12-09-2020 SARS-CoV-2 (COVID-19 ) mRNA-6958 vaccine Cristela WINTER [facility] 07-09-2020 influenza virus vaccine, split virus (incl. purified surface antigen) Uma De Paz Other [facility] [employer] Other 07-09-2020 influenza virus vaccine, unspecified formulation DO Uma De Paz Work Phone: [facility] 07-05-2019 influenza virus vaccine, split virus (incl. purified surface antigen) Uma De Paz Other [facility] [employer] Other 07-05-2019 influenza virus vaccine, unspecified formulation DO Uma De Paz Work Phone: [facility] 06-30-2018 influenza virus vaccine, split virus (incl. purified surface antigen) Uma De Paz Other [facility] [employer] Other 06-30-2018 influenza virus vaccine, unspecified formulation DO Uma De Paz Work Phone: [facility] 06-29-2017 influenza virus vaccine, split virus (incl. purified surface antigen) Uma De Paz Other [facility] [employer] Other 06-29-2017 influenza virus vaccine, unspecified formulation DO Uma De Paz Work Phone: [facility] 06-22-2016 influenza virus vaccine, split virus (incl. purified surface antigen) Uma De Paz Other [facility] [employer] Other 06-22-2016 influenza virus vaccine, unspecified formulation DO Uma De Paz Work Phone: [facility] 07-19-2015 pneumococcal conjuga te vaccine, 13 valent Uma De Paz Other [facility] 07-16-2015 influenza virus vaccine, split virus (incl. purified surface antigen) Uma De Paz Other [facility] [employer] Other 07-16-2015 influenza virus vaccine, unspecified formulation DO Uma De Paz Work Phone: [facility] 06-16-2013 tetanus and diphther ia toxoids, adsorbed, preservative free, for adult use (5 Lf of tetanus toxoid and 2 Lf of diphtheria toxoid) Uma De Paz Other [facility] 04-06-2011 tetanus and diphther ia toxoids, adsorbed, preservative free, for adult use (5 Lf of tetanus toxoid and 2 Lf of diphtheria toxoid) Uma De Paz Other [facility] 04-03-2009 pneumococcal polysaccharide vaccine, 23 valent Uma De Paz Other [facility] Payers Date Payer Category Payer Private Health Insurance [facility] [id number] 2016 [facility] [id number] 2016 [facility] Shie ld Managed Care [facility] [id number]. [id number] 2016 Unknown [id number]. 1.13.647. 2.7.3.423965.315 2002 Managed Care (unspecified) MEDICARE SUPPLEMENT [id number] [id number] 2002 Medicare [id number]. 1.13.647. 2.7.3.925753.315 1959 Medicare [id number] 1959 Self-pay [id number] 1959 Unknown [id number] 1937 Unknown [id number] 2.16.840.1.987781.3.579. 2.647 1937 Unknown [id number] 2.16.840.1.457162.3.579. 2.593 1937 Unknown [id number] 2.16.840.1.132037.3.579. 2.593 1937 Unknown [id number] 2.16.840.1.525305.3.579. 2.593 1937 Unknown [id number] 2.16.840.1.071025.3.579. 2.593 1937 Unknown [id number] 2.16.840.1.579003.3.579. 2.593 1937 Unknown [id number] 2.16.840.1.419238.3.579. 2.593 1937 Unknown [id number] 2.16.840.1.574808.3.579. 2.593 1937 Unknown [id number] 2.16.840.1.850605.3.579. 2.593 1937 Unknown [id number] 2.16.840.1.421705.3.579. 2.593 1937 Unknown [id number] 2.16.840.1.913283.3.579. 2.593 1937 Unknown [id number] 2.16.840.1.832689.3.579. 2.593 1937 Unknown [id number] 2.16.840.1.184940.3.579. 2.593 1937 Unknown [id number] 2.16.840.1.966144.3.579. 2.593 1937 Unknown [id number] 2.16.840.1.907158.3.579. 2.593 1937 Unknown [id number] 2.16.840.1.275117.3.579. 2.593 1937 Unknown [id number] 2.16.840.1.524690.3.579. 2.593 1937 Unknown [id number] 2.16.840.1.497048.3.579. 2.593 1937 Unknown [id number] 2.16.840.1.957796.3.579. 2.593 1937 Unknown [id number] 2.16.840.1.633930.3.579. 2.1259 1937 Unknown [id number] 2.16.840.1.033676.3.579. 2.1244 1937 Unknown [id number] 2.16.840.1.392886.3.579. 2.1246 1937 Unknown [id number] 2.16.840.1.008254.3.579. 2.1245 1937 Unknown [id number] 2.16.840.1.144784.3.579. 2.1243 1937 Unknown [id number] 2.16.840.1.139920.3.579. 2.727 1937 Unknown [id number] 2.16.840.1.687511.3.579. 2.727 1937 Unknown [id number] 2.16.840.1.289404.3.579. 2.594 1937 Unknown [id number] 2.16.840.1.517952.3.579. 2.594 1937 Unknown [id number] 2.16.840.1.744957.3.579. 2.594 1937 Unknown [id number] 2.16.840.1.090975.3.579. 2.594 1937 Unknown [id number] 2.16.840.1.515667.3.579. 2.594 1937 Unknown [id number] 2.16.840.1.176029.3.579. 2.594 1937 Unknown [id number] 2.16.840.1.906925.3.579. 2.594 1937 Unknown [id number] 2.16.840.1.607842.3.579. 2.594 1937 Unknown [id number] 2.16.840.1.252825.3.579. 2.594 Unknown [id number] 2.16.840.1.825364.3.579. 2.593 Unknown [id number] 2.16.840.1.012985.3.579. 2.531 Unknown [id number] 2.16.840.1.617079.3.579. 2.531 Unknown [id number] 2.16.840.1.004363.3.579. 2.531 Unknown [id number] 2.16.840.1.050322.3.579. 2.531 Unknown [id number] 2.16.840.1.365566.3.579. 2.531 Social History Date Type Detail Facility Tobacco smoking status NHIS Unknown if ever smoked [facility] Start: 1935 Sex Assigned At Not on file O [facility] Start: 10-08-2023 End: 05-24-2025 Sex Assigned At [employer] Other Start: 03-28-2020 End: 05-10-2025 Tobacco smoking status Never smoked tobacco (finding) [facility] Start: 1935 Sex Assigned At Male [facility] Start: 10-08-2023 End: 05-10-2025 Tobacco use and exposure Smokeless tobacco non-user [facility] Work Phone: Start: 10-08-2023 End: 05-24-2025 History of Social function [facility] Work Phone: Start: 09-28-2023 End: 2024 Exposure to SARS-CoV-2 (event) Not sure [facility] Start: 10-28-2023 End: 04-17-2025 Alcohol intake Lifetime non-drinker (finding) [facility] Work Phone: Start: 09-21-2023 National Score (1-100), lower number is lower risk 80 [facility] Start: 11-06-2012 End: 10-05-2024 Sex Male (finding) [facility] Tobacco smoking status NHIS Tobacco smoking consumption unknown [facility] Start: 05-10-2025 End: 06-10-2025 Alcoholic beverage intake Ex-drinker (finding) [facility] Sexual Orientation [facility] How often to you hav e a drink containing alcohol? Never [facility] NEGATED: Highlighted rowStart: MAAME History of tobacco use Passive smoker [facility] Work Phone: Functional Status Date Assessment Result Facility 06-10-2025 Are you deaf, or do you have serious difficulty hearing Yes 06/10/2025 5:56 PM EDJaylyn Cardenas RN Yes [facility] 06-10-2025 Are you blind, or do you have serious difficulty seeing, even when wearing glasses No 06/10/2025 5:56 PM Jaylyn Whyte RN No [facility] 06-10-2025 Do you have serious difficulty walking or climbing stairs No 06/10/2025 5:56 PM Jaylyn Whyte, MARQUITA No [facility] 06-10-2025 Do you have difficul ty dressing or bathing Yes 06/10/2025 5:56 PM Jaylyn Whyte, MARQUITA Yes [facility] 06-10-2025 Because of a physica l, mental, or emotional condition, do you have difficulty doing errands alone such as visiting a physician's office or shopping No 06/10/2025 5:56 PM Jaylyn Whyte, MARQUITA No [facility] 06-10-2025 Total score [AUDIT-C] 0 06/10/20 25 9:34 AM EDT Toña Bill LISW [facility] 04-17-2025 Patient Health Quest ionnaire 2 item (PHQ-2) [Reported] [facility] Work Phone: 04-17-2025 Freedom - suicide s everity rating scale screener - recent [C-SSRS] [facility] Work Phone: 05-22-2024 Functional Status N/A [facility] 05-17-2023 Functional Status N/A [facility] 05-04-2022 Functional Status N/A [facility] Mental Status Date Assessment Result Facility 06-10-2025 Because of a physica l, mental, or emotional condition, do you have serious difficulty concentrating, remembering, or making decisions No 06/10/2025 5:56 PM EDT Jaylyn Potts RN No [facility] Clinical Notes 10-10-2021 to 06-22-2025 Telephone Encounter - Lanie Hernandez RN - 06/22/2025 4:14 PM EDTTelephone Encounter - Lanie Hernandez RN - 06/22/2025 4:14 PM EDTTelephone Encounter - Josys Mary - 06/22/2025 3:35 PM EDT Note [...] with this information, states that makes sense. [facility] 06-22-2025 Miscellaneous Notes Called and left VM [...] away. PCP will fax lab results to [phone] CB: [phone] option 4 Please call MARQUITA Garcia Patient's correctional case records supervisor from the [facility] called in. His team wanted to [...] on C19D from 06/09 ED visit at [place]. Please see daughter's comments to [facility] of [...] if he will loose his brown. CB: [phone] documented in this encounter [facility] 06-22-2025 Telephone encounter Note As Pt was [...] see Dr. Walsh as scheduled for return. [facility] Work Phone: 06-22-2025 Telephone encounter Note Images from the original note were not included. [facility] 06-22-2025 Telephone encounter Note Fax with lab results. Sent to apps, clinical team and medical records. [facility] 06-22-2025 Telephone encounter Note Spoke with MARQUITA [...] patient and daughter about treatment going forward? [facility] 06-22-2025 Telephone encounter Note Marquita Garcia at Pts PCP is calling to speak with clinic about pts lab results. Pts PCP wanted to know if they would like his PCP to start treatment right away. PCP will fax lab results to [phone] CB: [phone] option 4 Please call MARQUITA Garcia [facility] 06-18-2025 Nurse Note Patient is being discharged to SNF via private vehicle. All discharge paperwork (AVS & prescriptions) reviewed with the patient; the patient denied questions/concerns. All personal belongings are with patient and daughter. Peripheral IV removed without complication per policy. Patient left unit via wheelchair without incident. [facility] 06-18-2025 Miscellaneous Notes Patient is being discharged to SNF via private vehicle. All discharge paperwork (AVS & prescriptions) reviewed with the patient; the patient denied questions/concerns. All personal belongings are with patient and daughter. Peripheral IV removed without complication per policy. Patient left unit via wheelchair without incident. Report called at this time to [facility] [place] to [place]. Daughter will provide transport to [...] DC note form 06/15. BERKLEY Fair, RN, [facility] Problem: OT - ADLs Goal: Lower Body [...] interest in completing health care power of bmw service technician and/or living will paperwork; however, patient reports that they have already completed Healthcare Power of Account Services Specialist (HCPOA) and Living Will. Document(s) were provided to SW on this date. SW reviewed the document(s) with patient and they confirmed document(s) are current and reflective of their wishes. SW scanned into Swagsy. SW returned the original copy back to patient. The following individual(s) are named as decision maker(s) in the patient's HCPOA: Primary Agent: spouse, Maria Teresa Hannon and /or First Alternate Agent: daughter, Tricia Sapp, (ph: [phone]) Second Alternate Agent: NA, (ph: ) JOJO Andrade, TERI-Loi Motor Vehicle Inspector, Cancer Medicine (CMG) [facility] For Evening (4:30pm-8am) and Weekend SW needs please call [phone] or page [phone] 06/15/25 1244 Referral Information Arrived From home or self-care Final Discharge Planning Discharge Disposition Prison Facility Services at Discharge Prison;Physical Therapy;Occupational Therapy Community Agency Name(s) For Handoff See sw note Name For Handoff See sw note Phone For Handoff see sw note Fax For Handoff see sw note Additional Community Agency Name(s) no Plan Plan Pt to return to [place], [place] and daughter will transport him to appointments Patient/Family In Agreement With Plan yes Transport Request Mode of Transfer Private Vehicle [facility] Inpatient PCRM Discharge Note Patient discussed in medical rounds for discharge to SNF. PCRM met with the patient/family to discuss final discharge plan. Services for Discharge [facility] [place], [place] SNF- for PT/OT/SNF Consults with Final [...] for improved tolerability and appetite stimulation) - RATE SETTER consult: On swallow eval, liquids seemed ok, [...] Yes Transportation Transportation will be provided by [facility] Education Discharge education provided by the medical team and updated in the After Visit Summary. Bedside nurse to call/fax AVS, [place], and Dc summary Follow Up(s) Any follow up requested by the medical team arranged. Appointments in the After Visit Summary. 06/21/2025 10:00 AM MARQUITA HOBSON BLOOD DRAW, [facility] Clinical Lab [place] [id number] Arrive at: Arrive to [address] Registration. Appointments are taken in order of appointment time, not by arrival time [place] 06/21/2025 11:20 AM Duglas Walsh [facility] Arrive at: Arrive to [facility] Floor Registration [place] 06/21/2025 1:00 PM MMMP 9 SP D, [facility] Arrive at: Arrive to [facility] Floor Registration [place] 07/19/2025 10:45 AM MARQUITA HOBSON BLOOD DRAW, [facility] Clinical Lab [facility] 1 Arrive at: Arrive to [address] Registration. Appointments are taken in order of appointment time, not by arrival time [place] 07/19/2025 11:00 AM Oxana Espinosa [facility] Arrive at: Arrive to [facility] Floor Registration [place] 07/19/2025 12:30 PM MMMP 11 SP D, [facility] Arrive at: Arrive to [facility] Floor Registration [place] 08/16/2025 11:00 AM MARQUITA HOBSON BLOOD DRAW, [facility] Clinical Lab [facility] 1 Arrive at: Arrive to [address] Registration. Appointments are taken in order of appointment time, not by arrival time [place] ACO Patient: No Was Ambulatory PCRM added [...] and assistance is needed, please page the ornamental ironworking supervisor PCRM at [phone]. Discharge Planning for Facilities Review Options for [...] facility due to the following care needs: Prison Needs: Pain management Patient care training and [...] 06/21/2025 10:00 AM MARQUITA HOBSON BLOOD DRAW, [facility] Clinical Lab [facility] [place] 1 Arrive at: Arrive to [address] Floor Registration. Appointments are taken in order of appointment time, not by arrival time [place] 06/21/2025 11:20 AM Duglas Walsh [facility] Arrive at: Arrive to [facility] Floor Registration [place] 06/21/2025 1:00 PM MMMP 9 SP D, [facility] Arrive at: Arrive to [facility] Floor Registration [place] 07/19/2025 10:45 AM MARQUITA HOBSON BLOOD DRAW, [facility] Clinical Lab [place] 1 Arrive at: Arrive to [address] Floor Registration. Appointments are taken in order of appointment time, not by arrival time [place] 07/19/2025 11:00 AM Oxana Espinosa [facility] Arrive at: Arrive to [facility] Floor Registration [place] 07/19/2025 12:30 PM MMMP 11 SP D, [facility] Arrive at: Arrive to [facility] Floor Registration [place] 08/16/2025 11:00 AM MARQUITA HOBSON BLOOD DRAW, [facility] Clinical Lab [place] 1 Arrive at: Arrive to [address] Floor Registration. Appointments are taken in order of appointment time, not by arrival time [place] 08/16/2025 11:20 AM Duglas Walsh [facility] Arrive at: Arrive to [facility] Floor Registration Rehabilitation Needs: Ongoing assessment [...] scheduled appointment at the [facility] at [facility] on 06/20. Tricia expressed that if her father requires rehabilitation, she would prefer placement at [facility] in [place], as he had previously stayed there and [...] Fellow, Division of Endocrinology, Diabetes, and Metabolism [facility] Outpatient Care East [address] [place] [address] Problem: Oral Intake Inadequate Goal: Improved Oral [...] ;child;review of medical record Contact Information This Stack Clerk is Primary Fine Arts Model/SW No Living Environment Lives With child(katty), adult [...] Retired Employment/Financial Concerns no Source Of Income pension/detention Financial Concerns none Insurance Medical Insurance Verified Yes Prescription Coverage Yes Pharmacy updated in [facility] Yes Initial Discharge Planning Home Care Services (PHARMACY INTAKE TECHNICIAN) No Home Therapies (PHARMACY INTAKE TECHNICIAN) None DME (PHARMACY INTAKE TECHNICIAN) Walker Patient Goal for Discharge Get better Expected Discharge Disposition HH Anticipated Services at Discharge Prison;Physical Therapy;Occupational Therapy;Outpatient follow up;DME Anticipated Changes Related [...] normally lives alone in his home in [place], [place]. Patient has been living with Tricia at [facility] [place] [address] while receiving cancer treatment. Tricia inquired about [...] discharge planning. Oz GOODEN, MARQUITA Patient Care Machine Load Clerk IRP/Carlene [phone] (office) For evening and weekend discharge assistance, please page the on-call PCRM at [phone]. documented in this encounter [facility] 06-18-2025 Nurse Note Report called at this time to [facility] [place] to [place]. Daughter will provide transport to facility. [facility] course Narrative Images from the [...] for improved tolerability and appetite stimulation) - RATE SETTER consult: On swallow eval, liquids seemed ok, [...] Deconditioning - PT/OT consult: rec home with [facility] originally - Now recommending SNF 06/13. Medically [...] 12:36 PM) - Reviewed and agree with or first assist registered nurse's recommendations. Wound Documentation Wound 06/11/25 1601 Distal;Right [...] as tolerated. Follow up with primary oncologist, Facilities Director, and warfarin clinic. Summary of last selected [...] signs of inflammation. Neck no rigidity. Not TORRES MARTINEZ. Respiratory: Clear to auscultation bilaterally, no crackles/rhonchi/wheezes, no increased WOB. On RA Cardiovascular: Afib, no murmurs, 1+ pitting edema BLE (L>R). Abdomen: Normoactive BS. Abdomen soft, nontender, nondistended. No palpable masses. Neurologic: CN II-XII grossly intact. No focal deficits. Speech coherent. Follows commands. Skin: Chronic brawny discoloration of BLE (L>R). Psychosocial: Affect appropriate Discharge Orders AMB REFERRAL TO SNF FACILITY AMB REFERRAL TO ENDOCRINOLOGY DISCHARGE WARFARIN [...] Commonly known as: LIPITOR Follow-up: [facility] [place] [address] Upcoming Appointments (up to five)-Some appointments for Medical Center outpatient clinics or diagnostic testing locations are not displayed below Next 5 Appointments Provider Department Dept Phone 07/05/2025 12:45 PM MARQUITA HOBSON BLOOD DRAW, [facility] Clinical Lab [facility] [place] 1 Arrive at: Arrive to [address] Registration. Appointments are taken in order of appointment time, not by arrival time [phone] 07/05/2025 1:00 PM Duglas Walsh [facility] Arrive at: Arrive to [facility] Floor Registration [phone] 07/05/2025 2:30 PM MMBLAINE 11 DEYVI Walker, [facility] Arrive at: Arrive to [facility] Registration [phone] 08/06/2025 11:15 AM MARQUITA HOBSON BLOOD DRAW, [facility] Clinical Lab [place] 1 Arrive at: Arrive to [address] Registration. Appointments are taken in order of appointment time, not by arrival time [phone] 08/06/2025 11:40 AM Duglas Walsh [facility] Arrive at: Arrive to [facility] Floor Registration [phone] Displaying the next 5 appointments. This patient [...] TFT and follow-up outpatient. PT/OT were consulted, [facility] 14, had trouble just getting out of [...] provider's note for details. Sebastian Day MD Research Associate of Internal Medicine, Clinical Division of [facility] Medicine, Department of Internal Medicine [facility] Total discharge time was 25 minutes. documented in this encounter [facility] 06-18-2025 History of Present illness Narrative Inpatient Control Operator/Spiritual Care Note Reason for Visit: Introduction Visited With: patient, Sebastian Hannon; Encounter/Assessment: Control Operator met with patient, Sebastian, to introduce self, assess needs and describe the role of spiritual care at [facility]. Discussion included exploration of how he is feeling today. Interventions: Built rapport and established a supportive relationship Provided emotional support through compassionate presence, active/empathetic listening, and normalization/validation of emotions. Facilitated sharing of experience and emotional expression Provided hindu items/literature Provided prayer, upon request Shared information about spiritual care services and barrel racer availability Outcomes: Patient expressed appreciation for visit and information about spiritual care services, and demonstrated that he is feeling ok and has support. Plan: No specific follow-up needed at this time Patient/family encouraged to request spiritual care as needed. Chaplains are available in-house 24 hours a day and 7 days a week. For urgent matters in [facility], please page [phone]; for the [facility], please page [phone]. If the request is not urgent, please enter a consult. Consults are responded to within 24 hours. Control Operator Argelia Lovelace, Gian, STELLA, BRITTNEY, BCC Senior Control OperatorDuane campbell , , 26/04 On-Call Pager [place] ([phone]) [facility], (Ana Luisa, Jason, Alex, B&S, Harman Lagos) 26/04 On-Call Pager: [phone] [place] 26/04 On-Call Pager: [phone] Flowsheet Documentation: 06/18/25 1500 Clinical Encounter Type Visited With Patient Visit Type Introduction Pastoral Time Spent 15 min Referral (Rounding) Pentecostal Encounters Pentecostal Needs Prayer Spiritual Assessment Emotional Observation Coping well Support Observation Some support Interventions Provided Active listening;Prayer;Supportive presence Facilitated Verbalization of feelings Groundskeeping Maintenance Worker Education Groundskeeping Maintenance Worker Service Available Yes Educated Patient Plan of Care Continue Visiting PRN Summary: Final SW Discharge Note Final SW Discharge Note Referred Level of Care: Prison Facility Date/Time of Discharge: 06/18/2025 at 1530 hours Accepting Facility/[place]: [place] [address] Final Discharge Planning Discharge Disposition: Prison Facility Services at Discharge: Prison, Occupational Therapy, Physical Therapy Community Agency Name(s) For Handoff: [place] [address] Name For Handoff: [address], Nurse for Sebastian Hannon Phone For Handoff: Fax For Handoff: , RN Please Call Report, Fax AVS, [place], [place] Summary Transportation: Family to provide transport Transport [...] Floor RN, patient/family, appropriate team members, and Prison Facility are aware of planned discharge. No additional questions or needs reported at this time. SW will remain available as needed. JOJO Andrade LISW-S Motor Vehicle Inspector, Cancer Medicine (CMG) [facility] For Evening (4:30pm-8am) and Weekend SW needs please call [phone] or page [phone] Acute Occupational Therapy Treatment Prior Gross Functional Mobility: independent Current AM-PAC score(s): CURRENT AM-PAC Activity Raw Score: 16 Based on the above AM-PAC score(s), and OT clinical judgment, discharge destination recommendation is: Prison Facility Barriers to discharge home: Patient needs [...] Positioning Transfer Assessment/Intervention: Sit to Stand Transfer [place] Level: Sit->Stand: moderate assist (50% patient effort) Assistive Device: Sit->Stand: gait belt, front-wheeled walker, armed chair Skilled Rationale: Verbal cues, Hand placement, Positioning Skilled Intervention/Details: Sit->Stand: Verbal cues for hand placement, positioning and facilitating anterior weight shift for standing transfer success. Mod assist for reaching full upright standing position with use of 2WW. Increased time/effort for execution. Stand to Sit Transfer [place] Level: Stand->Sit: minimum assist (75% patient effort) Assistive Device: Stand->Sit: gait belt, front-wheeled walker, armed chair Skilled Rationale: Verbal cues, Hand placement, Positioning, Controlled descent for sitting Skilled Intervention/Details: Stand->Sit: Verbal cues for safe hand placement/reach back to chair arm rest(s) for controlled descent, good carryover. Functional Mobility: Functional Mobility [place] Level: Functional Mobility/Gait: minimum assist (75% patient [...] correct with limited carryover. Outcome Score(s): CURRENT -[facility] Daily Activity Inpatient Short Form Putting on/Taking Off Lower Body Clothin - A Lot of Assistance Bathin - A Lot of Assistance Toiletin - A Lot of Assistance Putting on/Taking Off Upper Body Clothin - A Little Assistance Groomin - A Little Assistance Eatin - No Assistance CURRENT -[facility] Activity Raw Score: 16 CURRENT AM-[facility] Activity Functional Limitation/Modifier: 53.32% Currently Impaired in [...] To be determined Referred Level of Care: Prison Facility Discharge Considerations: Medical stability Bed availability Transportation Referral Status: Family accepted pending bed [place] [address] COVID Testing Requirements: Not required Discharge Transportation: [...] was completed. Rachelle De Anda MSW, TERI-S Motor Vehicle Inspector, Cancer Medicine (CMG) [facility] For Evening (4:30pm-8am) and Weekend SW needs please call [phone] or page [phone] Acute Physical Therapy Treatment Prior Gross Functional Mobility: independent Current AM-PAC score(s): CURRENT AM-PAC Mobility Raw Score: 14 Based on the above AM-PAC score(s) and PT clinical judgment, patient is a good candidate for discharge to Prison Facility Barriers to discharge home: Lack of [...] posture Mobility Assessment/Intervention: Supine to Sit Mobility [place] Level: Supine->Sit: minimum assist (75% patient effort) Bed Features/Set-up: Supine->Sit: Head of bed elevated, Use of bed rail Skilled Rationale: Positioning, Verbal cues, Tactile cues, Full extension to upright positioning/posture Skilled Intervention/Details: Supine->Sit: x1 to L with increased time but less assist at BLE to advance towards EOB this date; MIN A at trunk for upright posture Transfer Assessment/Intervention: Sit to Stand Transfer [place] Level: Sit->Stand: moderate assist (50% patient effort) Assistive Device: Sit->Stand: gait belt, front-wheeled walker Skilled Rationale: Positioning, Sequencing, Hand placement, Verbal cues, Facilitate anterior shift, Full extension to upright positioning/posture, Finding/maintaining midline positioning Skilled Intervention/Details: Sit->Stand: x1 from EOB, x3 from chair; increased difficulty sequencing transition to standing and forward weight shift despite cues. Limited by retropulsion Stand to Sit Transfer [place] Level: Stand->Sit: minimum assist (75% patient effort) Assistive Device: Stand->Sit: gait belt, front-wheeled walker Skilled Rationale: Positioning, Sequencing, Hand placement, Verbal cues, Controlled descent for sitting Skilled Intervention/Details: Stand->Sit: x4 to chair with cues for positioning prior to sitting; MIN A to control descent Gait/Functional Mobility Assessment/Intervention: Gait Assessment [place] Level: Gait: (CG to MIN A) Assistive [...] and fatigue. Stairs Assessment/Intervention: Outcome Score(s): CURRENT [facility] Basic Mobility Inpatient Short Form Turning [...] with a railin - Total Assistance CURRENT [facility] Mobility Raw Score: 14 CURRENT [facility] Mobility Functional Limitation: 61.29% Impaired in [...] for improved tolerability and appetite stimulation) - RATE SETTER consult: On swallow eval, liquids seemed ok, [...] Deconditioning - PT/OT consult: rec home with [facility] originally - Now recommending SNF 06/13. Medically stable,waiting on SNF placement. Metastatic Melanoma - Follows with Dr. Walsh - Currently on immunotherapy with opdualag (last 05/21/25) - Dr. Walsh updated via email 06/11 - FU [facility] 06/21 Quality Self-Check Complexity. Malnutrition - Severe Protein-Calorie Malnutrition (POA) (06/11/2025 12:36 PM) secondary to Acute Illness / Injury (06/11/2025 12:36 PM) - Reviewed and agree with or first assist registered nurse's recommendations. Wound Documentation Wound 06/11/25 1601 Distal;Right [...] PROBLEMS RA - Cont home hydroxychloroquine - [facility] referred patient to Dr. Desai for evaluation [...] Follow-ups made: Dr. Desai 06/21, Dr. Walsh ([facility]) 06/21 Follow-ups needed: TBD SUBJECTIVE No acute [...] signs of inflammation. Neck no rigidity. Not TORRES MARTINEZ. Respiratory: Clear to auscultation bilaterally, no crackles/rhonchi/wheezes, [...] Day MD: in agreement. CHICHI Santiago Pager: [phone] The provider may be reached from 7a-7p at pager listed on QGenda. After these hours please page the department store door greeter or moonlighter. 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 Sebastian Day MD Business Management Analyst of Internal Medicine, Clinical Division of Hospital Medicine, Department of Internal Medicine [facility] Endocrinology Progress Note Date of [...] (ALDACTONE) tablet 25 mg, 25 mg, Oral, Natsaha CHAMPION PA-C, 25 mg at 06/17/25 0907 warfarin (COUMADIN) tablet 4 mg, 4 mg, Oral, Daily, Khris Levine APRN-BAIT MAN, 4 mg at 06/17/25 1701 Cosigned by [...] for improved tolerability and appetite stimulation) - RATE SETTER consult: On swallow eval, liquids seemed ok, [...] Deconditioning - PT/OT consult: rec home with [facility] originally - Now recommending SNF 06/13 Metastatic Melanoma - Follows with Dr. Walsh - Currently on immunotherapy with opdualag (last 05/21/25) - Dr. Walsh updated via email 06/11 - FU [facility] 06/21 Quality Self-Check Complexity. Malnutrition - Severe Protein-Calorie Malnutrition (POA) (06/11/2025 12:36 PM) secondary to Acute Illness / Injury (06/11/2025 12:36 PM) - Reviewed and agree with or first assist registered nurse's recommendations. Wound Documentation Wound 06/11/25 1601 Distal;Right [...] PROBLEMS RA - Cont home hydroxychloroquine - [facility] referred patient to Dr. Desai for evaluation [...] Follow-ups made: Dr. Desai 06/21, Dr. Walsh ([facility]) 06/21 Follow-ups needed: TBD SUBJECTIVE No acute [...] signs of inflammation. Neck no rigidity. Not TORRES MARTINEZ. Respiratory: Clear to auscultation bilaterally, no crackles/rhonchi/wheezes, [...] Day MD: in agreement. CHICHI Santiago Pager: [phone] The provider may be reached from 7a-7p at pager listed on QGenda. After these hours please page the department store door greeter or moonlighter. Cosigned by Sebastian Day MD [...] Endo recs appreciated, follow TSI antibodies - RATE SETTER, Geriatrics, Nutrition recs appreciated, Mirtazapine 7.5 at [...] provider's note for details. Sebastian Day MD Business Management Analyst of Internal Medicine, Clinical Division of Hospital Medicine, Department of Internal Medicine [facility] CANCER MEDICINE INPATIENT PROGRESS NOTE TODAY'S [...] for improved tolerability and appetite stimulation) - RATE SETTER consult: On swallow eval, liquids seemed ok, [...] Deconditioning - PT/OT consult: rec home with [facility] originally - Now recommending SNF 06/13 Metastatic Melanoma - Follows with Dr. Walsh - Currently on immunotherapy with opdualag (last 05/21/25) - Dr. Walsh updated via email 06/11 - FU [facility] 06/21 Quality Self-Check Complexity. Hypocalcemia - Continue to monitor and replete. Malnutrition - Severe Protein-Calorie Malnutrition (POA) (06/11/2025 12:36 PM) secondary to Acute Illness / Injury (06/11/2025 12:36 PM) - Reviewed and agree with or first assist registered nurse's recommendations. Wound Documentation Wound 06/11/25 1601 Distal;Right [...] PROBLEMS RA - Cont home hydroxychloroquine - [facility] referred patient to Dr. Desai for evaluation [...] Follow-ups made: Dr. Desai 06/21, Dr. Walsh ([facility]) 06/21 Follow-ups needed: TBD SUBJECTIVE No acute [...] signs of inflammation. Neck no rigidity. Not TORRES MARTINEZ. Respiratory: Clear to auscultation bilaterally, no crackles/rhonchi/wheezes, [...] Day MD: in agreement. CHICHI Santiago Pager: [phone] The provider may be reached from 7a-7p at pager listed on QGenda. After these hours please page the department store door greeter or moonlighter. Cosigned by Sebastian Day MD [...] in 1 week, follow TSI antibodies - RATE SETTER, Geriatrics, Nutrition recs appreciated, Mirtazapine 7.5 at [...] provider's note for details. Sebastian Day MD Business Management Analyst of Internal Medicine, Clinical Division of Hospital Medicine, Department of Internal Medicine [facility] Occupational Therapy Attempt Note 06/15/2025 OT [...] To be determined Referred Level of Care: Prison Facility or Home w/ HHC Discharge Considerations: [...] advised that referral to be submitted in [facility] referral system, which they [place] [address] Addendum 1530 hours: SW met with daughter and provided an update. Daughter expressed the desire to await bed availability early next week as Patient has been there before and its close to his home. Daughter stated the ability to provide transport Wednesday after work / 1500 hours. Team was updated. JOJO Andrade LISW-S Motor Vehicle Inspector, Cancer Medicine (CMG) [facility] For Evening (4:30pm-8am) and Weekend SW needs please call [phone] or page [phone] Acute Physical Therapy Treatment Prior Gross Functional Mobility: independent Current AM-PAC score(s): CURRENT AM-PAC Mobility Raw Score: 14 Based on the above AM-PAC score(s) and PT clinical judgment, patient is a good candidate for discharge to Prison Facility Barriers to discharge home: Lack of [...] breaks Mobility Assessment/Intervention: Supine to Sit Mobility [place] Level: Supine->Sit: moderate assist (50% patient effort) [...] session Transfer Assessment/Intervention: Sit to Stand Transfer [place] Level: Sit->Stand: (CG to MOD Ax1) Assistive [...] complete with CGA Stand to Sit Transfer [place] Level: Stand->Sit: minimum assist (75% patient effort) Assistive Device: Stand->Sit: gait belt, front-wheeled walker Skilled Rationale: Positioning, Hand placement, Verbal cues, Tactile cues, Controlled descent for sitting Skilled Intervention/Details: Stand->Sit: cues to position hips closer to EOB prior to sitting; x4 to bed, x1 to chair Gait/Functional Mobility Assessment/Intervention: Gait Assessment [place] Level: Gait: minimum assist (75% patient effort) [...] by fatigue Stairs Assessment/Intervention: Outcome Score(s): [facility] Basic Mobility Inpatient Short Form Turning [...] with a railin - Total Assistance [facility] Mobility Raw Score: 14 [facility] Mobility Functional Limitation: 61.29% Impaired in [...] Gait Training Time Entry: 10 Treating Therapist: Elas Valencia PT Additional Details: PT Co-Eval/Treatment Information [...] for improved tolerability and appetite stimulation) - RATE SETTER consult: On swallow eval, liquids seemed ok, [...] Deconditioning - PT/OT consult: rec home with [facility] originally - Now recommending SNF 06/13 Metastatic Melanoma - Follows with Dr. Walsh - Currently on immunotherapy with opdualag (last 05/21/25) - Dr. Walsh updated via email 06/11 - FU [facility] 06/21 Quality Self-Check Complexity. Malnutrition - Severe Protein-Calorie Malnutrition (POA) (06/11/2025 12:36 PM) secondary to Acute Illness / Injury (06/11/2025 12:36 PM) - Reviewed and agree with or first assist registered nurse's recommendations. Wound Documentation Any conditions listed below [...] PROBLEMS RA - Cont home hydroxychloroquine - [facility] referred patient to Dr. Desai for evaluation [...] Follow-ups made: Dr. Desai 06/21, Dr. Walsh ([facility]) 06/21 Follow-ups needed: TBD SUBJECTIVE No acute [...] signs of inflammation. Neck no rigidity. Not TORRES MARTINEZ. Respiratory: Clear to auscultation bilaterally, no crackles/rhonchi/wheezes, [...] MD: in agreement. Khris Levine APRN-LUCIA Pager: [phone] The provider may be reached from 7a-7p at pager listed on QGenda. After these hours please page the department store door greeter or moonlighter. Cosigned by eSbastian Day MD at 06/14/2025 5:38 PM EDT [...] in 1 week, follow TSI antibodies - RATE SETTER, Geriatrics, Nutrition recs appreciated, Mirtazapine 7.5 at bedtime continuing - repeat echo similar to prior, follow-up with op cardio - PT/OT following, recs appreciated - See advanced provider's note for details. Sebastian Day MD Business Management Analyst of Internal Medicine, Clinical Division of Hospital Medicine, Department of Internal Medicine [facility] Physical Therapy Attempt Note 06/14/2025 PT [...] is a good candidate for discharge to Prison Facility Barriers to discharge home: Lack of [...] PT Mobility Assessment/Intervention: Supine to Sit Mobility [place] Level: Supine->Sit: moderate assist (50% patient effort) Bed Features/Set-up: Supine->Sit: Head of bed elevated, Use of bed rail Skilled Rationale: Positioning, Sequencing, Hand placement, Verbal cues, Tactile cues, Full extension to upright positioning/posture Skilled Intervention/Details: Supine->Sit: x1 to L with increased time and cues at BLE and trunk to faciliate upright sitting Sit to Supine Mobility [place] Level: Sit->Supine: moderate assist (50% patient effort) Bed Features/Set-up: Sit->Supine: Head of bed elevated, Use of bed rail Skilled Rationale: Positioning, Verbal cues, Hand placement, Technique of activity Skilled Intervention/Details: Sit->Supine: x1 from R with increased time and effort to complete, MOD A to manage BLE over EOB Transfer Assessment/Intervention: Sit to Stand Transfer [place] Level: Sit->Stand: moderate assist (50% patient effort) Assistive Device: Sit->Stand: gait belt, front-wheeled walker Skilled Rationale: Positioning, Hand placement, Verbal cues, Full extension to upright positioning/posture Skilled Intervention/Details: Sit->Stand: x1 from EOB and x1 from toilet with cues for hand placement. Demos difficulty with carryover and requires MOD Ax1 to achieve upright posture d/t retropulsion Stand to Sit Transfer [place] Level: Stand->Sit: minimum assist (75% patient effort) [...] to EOB Gait/Functional Mobility Assessment/Intervention: Gait Assessment [place] Level: Gait: minimum assist (75% patient effort) [...] wheelchair?: No Stairs Assessment/Intervention: Outcome Score(s): [facility] Basic Mobility Inpatient Short Form Turning [...] railin - A Lot of Assistance [facility] Mobility Raw Score: 14 [facility] Mobility Functional Limitation: 61.29% Impaired in [...] OT clinical judgment, discharge destination recommendation is: Prison Facility Barriers to discharge home: Patient needs [...] thread over bilateral LE's, min A to black puller hips in standing. Extremity Assessments: See [...] noted Mobility Assessment/Intervention: Supine to Sit Mobility [place] Level: Supine->Sit: moderate assist (50% patient effort) [...] of bed rail Sit to Supine Mobility [place] Level: Sit->Supine: not tested Skilled Intervention/Details: Sit->Supine: Pt seated in armed chair at end of session Transfer Assessment/Intervention: Sit to Stand Transfer [place] Level: Sit->Stand: moderate assist (50% patient effort) Assistive Device: Sit->Stand: gait belt, front-wheeled walker Skilled Rationale: Positioning, Hand placement, Verbal cues, Full extension to upright positioning/posture, Cues for increased safety Skilled Intervention/Details: Sit->Stand: x1 from EOB, cues for hand placement with poor carryover; increased assistance and time to rise into standing. Stand to Sit Transfer [place] Level: Stand->Sit: contact guard assist Assistive Device: Stand->Sit: gait belt, front-wheeled walker Skilled Rationale: Sequencing, Positioning, Hand placement, Verbal cues, Controlled descent for sitting, Technique of activity, Initiation and execution of task, Cues for increased safety Skilled Intervention/Details: Stand->Sit: x1 to armed chair; cues for safety and positioning of 2ww as pt abandoning prior to arrival Toilet Transfer [place] Level: Toilet: moderate assist (50% patient effort) Assistive Device: Toilet: gait belt, bedside commode, front-wheeled walker Skilled Rationale: Positioning, Hand placement, Verbal cues, Controlled descent for sitting, Technique of activity, Initiation and execution of task, Cues for increased safety Skilled Intervention/Details: Toilet: x1 from BSC; cues for hand placement. Increased time to rise. Functional Mobility: Functional Mobility [place] Level: Functional Mobility/Gait: contact guard assist Assistive [...] upright posture and gaze. Outcome Score(s): CURRENT [facility] Daily Activity Inpatient Short Form Putting on/Taking Off Lower Body Clothin - A Lot of Assistance Bathin - A Lot of Assistance Toiletin - A Lot of Assistance Putting on/Taking Off Upper Body Clothin - A Little Assistance Groomin - A Little Assistance Eatin - No Assistance CURRENT -[facility] Activity Raw Score: 16 CURRENT [facility] Activity Functional Limitation/Modifier: 53.32% Currently Impaired in [...] for improved tolerability and appetite stimulation) - RATE SETTER consult: On swallow eval, liquids seemed ok, [...] Deconditioning - PT/OT consult: rec home with [facility] originally - Now recommending SNF 06/13 Metastatic Melanoma - Follows with Dr. Walsh - Currently on immunotherapy with opdualag (last 05/21/25) - Dr. Walsh updated via email 06/11 - FU [facility] 06/21 Quality Self-Check Complexity. Malnutrition - Severe Protein-Calorie Malnutrition (POA) (06/11/2025 12:36 PM) secondary to Acute Illness / Injury (06/11/2025 12:36 PM) - Reviewed and agree with or first assist registered nurse's recommendations. Wound Documentation Any conditions listed below [...] PROBLEMS RA - Cont home hydroxychloroquine - [facility] referred patient to Dr. Desai for evaluation [...] Follow-ups made: Dr. Desai 06/21, Dr. Walsh ([facility]) 06/21 Follow-ups needed: TBD SUBJECTIVE No acute [...] signs of inflammation. Neck no rigidity. Not TORRES MARTINEZ. Respiratory: Clear to auscultation bilaterally, no crackles/rhonchi/wheezes, [...] MD: in agreement. Cris Rosa PA-C Pager: [phone] The provider may be reached from 7a-7p at pager listed on QGenda. After these hours please page the department store door greeter or moonlighter. Cosigned by Sebastian Day MD [...] in 1 week, follow TSI antibodies - RATE SETTER, Geriatrics, Nutrition recs appreciated, Mirtazapine 7.5 at bedtime continuing - repeat echo similar to prior, follow-up with op cardio - See advanced provider's note for details. Sebastian Day MD Business Management Analyst of Internal Medicine, Clinical Division of Hospital Medicine, Department of Internal Medicine [facility] Summary: Initial Discharge Plan SW Initial Discharge Planning Referral Source: Team Anticipated Level of Care: Home w/ HHC vs SNF Estimated Discharge Date: To be determined Discharge Considerations: Medical stability Tx plan Facility choice Transportation Discharge Discussion: SW met with daughter regarding discharge plans. Daughter requested an update regarding tx as that will dictate if Patient discharges to her home in [place] or to a SNF close to his Home. If SNF, daughter stated a preference for [place] [facility] Coping: Unknown at this time as Patient deferred to daughter. Referral Status: SW explained referral process, and will place a referral as appropriate. Pre-Cert: No Discharge Transportation: To be determined Plan: Discharge plans have not been finalized at this time. JOJO Andrade, BOONE Motor Vehicle Inspector, Cancer Medicine (CMG) [facility] For Evening (4:30pm-8am) and Weekend SW needs please call [phone] or page [phone] Acute Care Speech-Language Pathology Clinical Swallow Evaluation [...] lines at this time Systems Review Acute RATE SETTER Outcomes Tracking Communicate basic wants and needs?: [...] (severe) Precipitating dysphagia risk factors: none known RATE SETTER History: None Prior Results: N/a Baseline method [...] consecutive sips suggesting at risk for aspiration [place] Swallow Screen completed by RATE SETTER: Screening Exclusion Criteria: none, continue with Ezra [...] oz. Water Swallow Challenge : non-consecutive sips [place] Swallow Screening Result: failed=NPO Swallow Outcomes: Functional [...] stated therapy goals Plan for next session: [place] Pt will participate in instrumental swallow study [...] Instruction/Education comments: Pt declined FEES, okay with [place] Speech Language Pathologist: BERTRAM Light Time In: 1305 Time Out: 1317 Total Visit Time: 12 minutes Total Treatment Time (skilled, billable minutes): 12 minutes RATE SETTER Co-Eval/Treatment Information Co-evaluation/co-treatment performed?: No simultaneous skilled care performed PPE used during patient interaction: gowclaudia Needs in reach RATE SETTER Evaluation and Treatment Time Swallowing Eval 61985: 12 Upon discontinuation of Acute Care Speech [...] unsigned copy. Daughter to obtain from their bmw service technician and provide as available. JOJO Andrade, BOONE Motor Vehicle Inspector, Cancer Medicine (CMG) [facility] For Evening (4:30pm-8am) and Weekend SW needs please call [phone] or page [phone] CANCER MEDICINE INPATIENT PROGRESS NOTE TODAY'S DATE: [...] for improved tolerability and appetite stimulation) - RATE SETTER consult: On swallow eval, liquids seemed ok, [...] Deconditioning - PT/OT consult: rec home with [facility] Metastatic Melanoma - Follows with Dr. Walsh - Currently on immunotherapy with opdualag (last 05/21/25) - Dr. Walsh updated via email 06/11 - FU [facility] 06/21 Quality Self-Check Complexity. Hyponatremia - Secondary to fluid shifts. Monitor. Malnutrition - Severe Protein-Calorie Malnutrition (POA) (06/11/2025 12:36 PM) secondary to Acute Illness / Injury (06/11/2025 12:36 PM) - Reviewed and agree with or first assist registered nurse's recommendations. Wound Documentation Any conditions listed below [...] to discharge to PT/OT rec home with [facility].Today they are expected to be medically ready for discharge on TBD. Follow-ups made: Dr. Desai 06/21, Dr. Walsh ([facility]) 06/21 Follow-ups needed: TBD SUBJECTIVE No acute [...] signs of inflammation. Neck no rigidity. Not TORRES MARTINEZ. MMM. Respiratory: Clear to auscultation bilaterally, no [...] MD: in agreement. Cris Rosa PA-C Pager: [phone] The provider may be reached from 7a-7p at pager listed on QGenda. After these hours please page the department store door greeter or moonlighter. Cosigned by Yves Lamb MD [...] Attending, primary team, patient. Kristel Lee, BHARTI, RECYCLE COORDINATOR-BAIT MAN Nurse Practitioner Geriatrics Inpatient Consult Service Pager #[phone] Department of Pharmacy Admission Medication Reconciliation Note [...] further questions. Name: Conrad Adams Phone #: [phone] Date/Time: 06/11/2025 1:46 PM Time Spent: 35 minutes Cosigned by Hunter Nix Jr., RP at 06/11/2025 2:13 PM EDT Associated attestation - Hunter Nix Jr., RPH - 06/11/2025 2:13 PM EDT Department of Pharmacy Admission Medication Reconciliation Note Patient: Sebastian Hannon Room/Bed: Updated PHARMACY INTAKE TECHNICIAN Med List: Prior to Admission Medications Prescriptions [...] 1.5 tablets by mouth 2 times daily. [id number]-Ybflzkfxmp-[id number] (OPDUALAG IV) Sig: by Intravenous route. Spironolactone [...] reviewed the home medication list with the Sizing Machine Operator. The home medication list status is: complete and home med list marked as reviewed . All changes to the home medication list have been updated in [facility]HIS. Please feel free to contact me with any further questions. Name: Hunter Nix Jr. [facility] Phone #: [phone] Date/Time: 06/11/2025 2:13 PM NUTRITION CONSULT / [...] function, weight changes, labs, and skin integrity Sebastian Hannon is a 89 y.o. male [...] I/O: Net -300mL Respiratory: Room air Skin: Santiago Score: 15 No active wounds Edema: 1+(trace): bilateral legs, ankles, and feet Nutrition Focused Physical Exam: Nutrition Focused Physical Exam Completed?: deferred Reason For Deferral: pt with advaned age, difficult to interpret, not warranted at this time Estimated Nutrition Needs: Wt used: 68.4 kg CBW Estimated Energy Needs: 8321-9059 kcals/day (25-30 kcal/kg) Estimated Protein Needs: 82-103 g protein/day (1.2-1.5 g/kg) Estimated Fluid Needs: 2756-1900 mL fluid/day (1 ml/kcal), or per team [...] Mare Mcarthur MS, RD, LD Contact: pager #[phone] or [facility]HIS chat Acute Physical Therapy Evaluation [...] 4/5 Mobility Assessment: Supine to Sit Mobility [place] Level: Supine->Sit: stand-by assist Bed Features/Set-up: Supine->Sit: [...] time Transfer Assessment: Sit to Stand Transfer [place] Level: Sit->Stand: minimum assist (75% patient effort) Assistive Device: Sit->Stand: gait belt, front-wheeled walker Skilled Intervention/Details: Sit->Stand: x1 from EOB with increased retropulsion needing MIN A to maintain balance Stand to Sit Transfer [place] Level: Stand->Sit: contact guard assist Assistive Device: Stand->Sit: gait belt, front-wheeled walker Skilled Intervention/Details: Stand->Sit: x1 to chair with mild decrease in safety awareness, abandons FWW prior to being positioned near chair Gait/Functional Mobility: Gait Assessment [place] Level: Gait: contact guard assist Assistive Device: [...] currently uses wheelchair?: No Stairs: Stairs Assessment [place] Level: Stair Negotiation: contact guard assist Assistive Device: Stair Negotiation: gait belt, left rail (ascending), right rail (ascending) Number of stairs: 4 Stairs Skilled Rationale: verbal, nonreciprocal pattern, general safety Skilled Intervention/Details - Stairs: no LOB, good knee stability Outcome Score(s): [facility] Basic Mobility Inpatient Short Form Turning [...] a railin - A Little Assistance [facility] Mobility Raw Score: 18 [facility] Mobility Functional Limitation: 46.58% Impaired in [...] denies recent falls. IADL History Primary Language: Finnish Objective/Observation: Vitals/Vitals Responses to Treatment: No adverse [...] tested Mobility Assessment: Supine to Sit Mobility [place] Level: Supine->Sit: stand-by assist Bed Features/Set-up: Supine->Sit: Head of bed elevated Skilled Rationale: Verbal cues Skilled Intervention/Details: Supine->Sit: x1 to R side of bed Sit to Supine Mobility [place] Level: Sit->Supine: not tested Skilled Intervention/Details: Sit->Supine: Pt seated in armed chair at end of session Transfer Assessment: Sit to Stand Transfer [place] Level: Sit->Stand: contact guard assist Assistive Device: Sit->Stand: gait belt, front-wheeled walker Skilled Rationale: Positioning, Verbal cues Skilled Intervention/Details: Sit->Stand: x1 from EOB Stand to Sit Transfer [place] Level: Stand->Sit: contact guard assist Assistive Device: Stand->Sit: gait belt, front-wheeled walker Skilled Rationale: Positioning, Verbal cues, Controlled descent for sitting Skilled Intervention/Details: Stand->Sit: x1 to chair with mild decrease in safety awareness, abandons FWW prior to being positioned near chair Functional Mobility: Functional Mobility [place] Level: Functional Mobility/Gait: contact guard assist Assistive [...] currently uses wheelchair?: No Outcome Score(s): CURRENT -[facility] Daily Activity Inpatient Short Form Putting on/Taking Off Lower Body Clothin - A Little Assistance Bathin - A Little Assistance Toiletin - A Little Assistance Putting on/Taking Off Upper Body Clothin - A Little Assistance Groomin - A Little Assistance Eatin - No Assistance [facility] Activity Raw Score: 19 CURRENT -[facility] Activity Functional Limitation/Modifier: 42.80% Currently Impaired in [...] 1981 SKIN BIOPSY documented in this encounter [facility] 06-18-2025 Plan of care note Problem: Adult [...] Improved Oral Intake Outcome: Adequate for Discharge [facility] 06-18-2025 Nurse Note Patient was discussed in medical rounds. Will discharge today. See DC note form 06/15. BERKLEY Fair, RN, [facility] 06-18-2025 Telephone encounter Note Patient's correctional case records supervisor from [facility] called in. His team wanted to move his 06/21 to the beginning of July. All of patient's four RTC and treatment appointments have been moved four weeks apart. Please advise if scans need moved. [facility] 06-18-2025 Miscellaneous Notes Patient's correctional case records supervisor from [facility] called in. His team wanted to [...] 06/14 @ 1109 Pt admitted to [facility] 06/10 on C19D from 06/09 ED visit at [place]. Please see daughter's comments to JPAS of [...] if he will loose his brown. CB: [phone] documented in this encounter [facility] 06-18-2025 Plan of care note Problem: [...] tolerance to safely complete I/ADL's Outcome: Ongoing [facility] 06-18-2025 Telephone encounter Note Pt is still admitted as of 06/18 @ 0845 AM [facility] 06-18-2025 Plan of care note Problem: PT [...] safely navigate home and community. Outcome: Ongoing [facility] 06-17-2025 Plan of care note Problem: Adult [...] determine need for skllied intervention Outcome: Progressing [facility] Plan of care note Problem: Adult [...] had no complaints of pain or discomfort! [facility] 06-16-2025 Plan of care note Problem: Adult [...] light within reach, bed exit alarm on. [facility] 06-15-2025 Note Summary: Advance Dir ectives Per chart review, patient does not have advance directives on file. SW inquired about interest in completing health care power of bmw service technician and/or living will paperwork; however, patient reports that they have already completed Healthcare Power of Account Services Specialist (HCPOA) and Living Will. Document(s) were provided [...] First Alternate Agent: daughter, Tricia Sapp, (ph: [phone]) Second Alternate Agent: NA, (ph: ) JOJO Andrade LISW-S Motor Vehicle Inspector, Cancer Medicine (CMG) [facility] For Evening (4:30pm-8am) and Weekend SW needs please call [phone] or page [phone] [facility] 06-15-2025 Nurse Note 06/15/25 1247 Referral Information Arrived From home or self-care Final Discharge Planning Discharge Disposition Prison Facility Services at Discharge Prison;Physical Therapy;Occupational Therapy Community Agency Name(s) For Handoff See note Name For Handoff See note Phone For Handoff see note Fax For Handoff see note Additional Community Agency Name(s) no Plan Plan Pt to return to [place], [place] and daughter will transport him to appointments Patient/Family In Agreement With Plan yes Transport Request Mode of Transfer Private Vehicle [facility] [place] PCR Discharge Note Patient discussed in medical rounds for discharge to SNF. PCRM met with the patient/family to discuss final discharge plan. Services for Discharge [facility] [place], [place] SNF- for PT/OT/SNF Consults with Final [...] for improved tolerability and appetite stimulation) - RATE SETTER consult: On swallow eval, liquids seemed ok, [...] 06/21/2025 10:00 AM MARQUITA HOBSON BLOOD DRAW, [facility] Clinical Lab [facility] 1 Arrive at: Arrive to [facility] 1st Floor Registration. Appointments are taken in order of appointment time, not by arrival time [place] 06/21/2025 11:20 AM Duglas Walsh [facility] Arrive at: Arrive to [facility] First Floor Registration [place] 06/21/2025 1:00 PM MM 9 SP D, [facility] Arrive at: Arrive to [facility] Floor Registration [place] 07/19/2025 10:45 AM MARQUITA HOBSON BLOOD DRAW, [facility] Clinical Lab [place] [phone] Arrive at: Arrive to [facility] 1st Floor Registration. Appointments are taken in order of appointment time, not by arrival time [place] 07/19/2025 11:00 AM Oxana Antoine Espinosa [facility] Arrive at: Arrive to [facility] First Floor Registration [place] 07/19/2025 12:30 PM MMMP 11 SP D, [facility] Arrive at: Arrive to [facility] First Floor Registration [place] 08/16/2025 11:00 AM MARQUITA HOBSON BLOOD DRAW, [facility] Clinical Lab [place] [address] Arrive at: Arrive to [address] Floor Registration. Appointments are taken in order of appointment time, not by arrival time [place] ACO Patient: No Was Ambulatory PCRM added [...] and assistance is needed, please page the ornamental ironworking supervisor PCRM at [phone]. [facility] 06-15-2025 Hospital Discharge instructions Kayley Torres RN - 06/15/2025 12:47 PM EDT Images from the original note were not included. Miscellaneous Education [facility] Classes The [employer] [facility] offers a series of monthly classes [...] families and friends. For more information, contact [employer] at or visit our website at [email or web address] Falls Prevention Many falls can be prevented. [...] with low, broad heels and soles that account receivable clerk. Drink enough liquid each day. Ask your [...] the hospital. This call will come from [phone]. If you miss the first call, the hospital will text you instead of sending an automated call. You will have the option of responding to the text with your cell phone. If a third attempt is needed, you will receive a call. If you are unable to answer and want to respond, please call [phone] to complete this important evaluation. By answering the phone evaluation, a [facility] nurse will be notified if you have any questions or needs and call you back. If you have an immediate medical need call your doctor s office, or if you have a medical emergency call 911. Your Fine Arts Model (PCRM) has arranged your appointments for follow [...] have any additional questions. BERKLEY Fair, RN, [facility] Kayley Torres RN - 06/15/2025 12:47 PM [...] than 100.5 documented in this encounter [facility] 06-15-2025 Nurse Note Discharge Planning for [...] facility due to the following care needs: Prison Needs: Pain management Patient care training and [...] 06/21/2025 10:00 AM MARQUITA HOBSON BLOOD DRAW, [facility] Clinical Lab [place] 1 Arrive at: Arrive to [address] Registration. Appointments are taken in order of appointment time, not by arrival time [place] 06/21/2025 11:20 AM Duglas Walsh [facility] Arrive at: Arrive to [facility] First Floor Registration [place] 06/21/2025 1:00 PM MMMP 9 SP D, [facility] Arrive at: Arrive to [facility] Floor Registration [place] 07/19/2025 10:45 AM MARQUITA HOBSON BLOOD DRAW, [facility] Clinical Lab [place] 1 Arrive at: Arrive to [address] Registration. Appointments are taken in order of appointment time, not by arrival time [place] 07/19/2025 11:00 AM Oxana Espinosa [facility] Arrive at: Arrive to [facility] First Floor Registration [place] 07/19/2025 12:30 PM MMMP 11 SP D, [facility] Arrive at: Arrive to [facility] Floor Registration [place] 08/16/2025 11:00 AM MARQUITA HOBSON BLOOD DRAW, [facility] Clinical Lab [facility] 1 Arrive at: Arrive to [address] Registration. Appointments are taken in order of appointment time, not by arrival time [place] 08/16/2025 11:20 AM Duglas Walsh [facility] Arrive at: Arrive to [facility] Registration Rehabilitation Needs: Ongoing assessment [...] adult [R62.7] Kayley Torres, SYLVIAN, RN, PCRM [facility] 06-15-2025 Telephone encounter Note Patient is still admitted as of 06/15 @0924 [facility] 06-15-2025 Plan of care note Problem: PT [...] to understanding of exercise program. Outcome: Ongoing [facility] 06-15-2025 Nurse Note Messaged Cancer Medicine Team [...] straight cath bladder scan was 0 mls. [facility] 06-15-2025 Plan of care note Problem: Adult [...] within reach, bed exit alarm on. T [facility] 06-14-2025 Nurse Note This PCRM spoke with the patient s daughter, Tricia, regarding her father's upcoming medical appointments and potential discharge planning. Tricia confirmed that he has a scheduled appointment at the [facility] on 06/20. Tricia expressed that if her father requires rehabilitation, she would prefer placement at [facility] in [place], as he had previously stayed there and [...] status closely. BERKLEY Fair, RN, PCRM T [facility] 06-14-2025 Telephone encounter Note Patient is still admitted as of 06/14 @ 1109 T [facility] 06-14-2025 Plan of care note Problem: Adult [...] Inadequate Goal: Improved Oral Intake Outcome: Progressing [facility] 06-13-2025 Plan of care note Problem: PT [...] safely navigate home and community. Outcome: Ongoing [facility] 06-13-2025 Plan of care note Problem: Dysphagia [...] determine need for skllied intervention Outcome: Ongoing [facility] 06-13-2025 Procedure note Associated Ord er(s): SPEECH [...] Review Onset of Illness/Injury or Surgery Date (RATE SETTER): 06/10/25 Communication Status: Verbal, No deficits noted Hearing Acuity: Impaired Behavioral Observations: pleasant, cooperative Respiratory Status: Room air Respiratory Status O2 Device: room air O2 Sat (%): 96 % Resp Rate: 16 Acute RATE SETTER Outcomes Tracking Communicate basic wants and needs?: [...] (severe) Precipitating dysphagia risk factors: none known RATE SETTER History: Previous Exams and Therapy Previous Exams [...] to fluoro suite, pt in transport cart. RATE SETTER assisted radiology staff with transferring patient to [...] Thin Liquid Barium: Spoon, Cup, Straw Mildly Thick/[place] Liquid Barium: Spoon, Straw Moderately Thick/Honey Liquid [...] IOPI or Tongueometer, Bolus challenge swallows Acute RATE SETTER Goals Plan of Care by BERTRAM Turcios [...] Patient Instruction/Education comments: Education re: role of RATE SETTER, purpose for exam and results of MBS. Speech Language Pathologist: BERTRAM Turcios Time In: 1120 Time Out: 1143 Total Visit Time: 23 minutes Total Treatment Time (skilled, billable minutes): 23 minutes Initial Evaluation/Screen Completed?: yes Non-billable assistance during session: n/a Assisted by during session: Log Buncher PPE used during patient interaction: gloves Patient location/status at end of session: (cart for transport back to room) RATE SETTER Evaluation and Treatment Time MBS/Motion Fluoroscopic Swallowing Eval 00436: 23 Upon discontinuation of Acute Care Speech Therapy Services or patient discharge from the hospital this note represents the current Speech Therapy Discharge Summary [facility] Work Phone: 06-13-2025 Procedure note Associated [...] Review Onset of Illness/Injury or Surgery Date (RATE SETTER): 06/10/25 Communication Status: Verbal, No deficits noted Hearing Acuity: Impaired Behavioral Observations: pleasant, cooperative Respiratory Status: Room air Respiratory Status O2 Device: room air O2 Sat (%): 96 % Resp Rate: 16 Acute RATE SETTER Outcomes Tracking Communicate basic wants and needs?: [...] (severe) Precipitating dysphagia risk factors: none known RATE SETTER History: Previous Exams and Therapy Previous Exams [...] to fluoro suite, pt in transport cart. RATE SETTER assisted radiology staff with transferring patient to [...] Thin Liquid Barium: Spoon, Cup, Straw Mildly Thick/[place] Liquid Barium: Spoon, Straw Moderately Thick/Honey Liquid [...] IOPI or Tongueometer, Bolus challenge swallows Acute RATE SETTER Goals Plan of Care by BERTRAM Turcios [...] Patient Instruction/Education comments: Education re: role of RATE SETTER, purpose for exam and results of MBS. Speech Language Pathologist: BERTRAM Turcios Time In: 1120 Time Out: 1143 Total Visit Time: 23 minutes Total Treatment Time (skilled, billable minutes): 23 minutes Initial Evaluation/Screen Completed?: yes Non-billable assistance during session: n/a Assisted by during session: Log Buncher PPE used during patient interaction: gloves Patient location/status at end of session: (cart for transport back to room) RATE SETTER Evaluation and Treatment Time MBS/Motion Fluoroscopic Swallowing Eval 21667: 23 Upon discontinuation of Acute Care Speech Therapy Services or patient discharge from the hospital this note represents the current Speech Therapy Discharge Summary documented in this encounter [facility] 06-13-2025 Telephone encounter Note Pt admitted to [facility] 06/10 on C19D from 06/09 ED visit at [place]. Please see daughter's comments to JPAS of 06/13. [facility] 06-13-2025 Telephone encounter Note Called to cancel [...] if he will loose his brown. CB: [phone] [facility] 06-13-2025 Plan of care note Problem: OT [...] tolerance to safely complete I/ADL's Outcome: Ongoing [facility] 06-13-2025 Nurse Note WOC/ET Nursing Consult Note: Pt consulted for what appears to be erythema/ abrasion. Wound appears superficial. Wash with soap and water leave open to air. Santiago of 17.Please re consult if additional needs arise. 06/13/25 0600 Plan Problem abrasion Current Plan no orders WOCT Visit Frequency PRN Last Date Seen 06/13/25 [facility] 06-12-2025 Plan of care note Endocrinology Plan [...] Fellow, Division of Endocrinology, Diabetes, and Metabolism [facility] [address] [place] [address] [facility] Work Phone: 06-11-2025 Consult note Associated Order (s): IP CONSULT TO GERIATRICS Geriatric Inpatient Consult Service - New Consult Overall Impression and Plan: Advised adequate oral hydration and nutritional support. As advised by Autocad Designer to start Mirtazapine 7.5 mg nightly (lower [...] (NITROSTAT) 0.4 mg, EVERY 5 MINUTES NEEDED Falmdeyyp-Hyziqwcjup-zjks (OPDUALAG IV) by Intravenous route. Spironolactone (ALDACTONE) [...] note for additional details. Virginia Bentley MD [facility] Work Phone: 06-11-2025 Consult note Associated Order (s): IP CONSULT TO GERIATRICS Geriatric Inpatient Consult Service - New Consult Overall Impression and Plan: Advised adequate oral hydration and nutritional support. As advised by Autocad Designer to start Mirtazapine 7.5 mg nightly (lower [...] (NITROSTAT) 0.4 mg, EVERY 5 MINUTES NEEDED Xyeesiprj-Dyvnpslqfe-qmje (OPDUALAG IV) by Intravenous route. Spironolactone (ALDACTONE) [...] IP CONSULT TO ENDOCRINOLOGY - NON DIABETES [facility] Endocrinology Consult Note- Initial Encounter [...] bnp- worried he needs to go to [facility] for Decomp HF ASSESSMENT AND PLAN: In summary, he is a 89 y.o. 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 CARDIAC PROBLEM LIST - Demand ischemia in the setting of dehydration, CKD - Pulmonary Hypertension, likely group 2 RVSP 69 mmHg on echocardiogram. RVSP 56 mmHg on RHC, - Heart failure with improved ejection fraction, s/p BiV ICD/MANAGEMENT ANALYST-D, NYHA Class II - CAD s/p cardiac bypass - OLGUIN to LAD (atretic), saphenous vein graft to [id number] and 2nd obtuse marginal branch, saphenous venous [...] was evaluated and discussed with the attending fans clerk, Dr. Samson Jaffe . We will continue to follow for the results of the echocardiogram. Please do not hesitate to reach out with questions. Rafia Santos, Cardiovascular Disease Fellow, PGY-5 [facility] Objective HISTORY: It was my pleasure to see Mr. Sebastian Hannon in consultation at the [facility] on 06/11/2025 for evaluation of his ELIZABETH. He is a 89 y.o. 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 He notably was recently diagnosed with metastatic melanoma and underwent immunotherapy with lgegnuvpg-gmiaoovosn-ruap. He was reportedly doing okay for about [...] his therapies. He was seen by his fans clerk a little over a month ago. She [...] persists after 1st dose, call 911 Unknown Mpkhzxknk-Vglovpgclw-hjcq (OPDUALAG IV) by Intravenous route. Spironolactone 25 [...] is already feeling better. Samson Jaffe M.D. Research Associate, Internal Medicine [facility] Cardiovascular Medicine *[id number] documented in this encounter [facility] 06-11-2025 Plan of care note Problem: Oral [...] function, weight changes, labs, and skin integrity [facility] 06-11-2025 Consult note Associated Order (s): IP CONSULT TO ENDOCRINOLOGY - NON DIABETES [facility] Endocrinology Consult Note- Initial Encounter [...] was seen on 06/11/2025 Fermin Dodge MD [facility] Work Phone: 06-11-2025 History and physical note [...] Deconditioning - PT/OT consult: rec home with [facility] Metastatic Melanoma - Follows with Dr. Walsh - Currently on immunotherapy with opdualag (last 05/21/25) - Dr. Walsh updated via email 06/11 - FU [facility] 06/21 Quality Self-Check Complexity. Malnutrition - Severe Protein-Calorie Malnutrition (POA) (06/11/2025 12:36 PM) secondary to Acute Illness / Injury (06/11/2025 12:36 PM) - Reviewed and agree with or first assist registered nurse's recommendations. Wound Documentation Any conditions listed below [...] to discharge to PT/OT rec home with [facility]. Today they are expected to be medically ready for discharge on TBD. Follow-ups made: Dr. Desai 06/21, Dr. Walsh ([facility]) 06/21 Follow-ups needed: TBD SUBJECTIVE No acute [...] signs of inflammation. Neck no rigidity. Not TORRES MARTINEZ. MMM. Respiratory: Clear to auscultation bilaterally, no [...] MD: in agreement. Cris Rosa PA-C Pager: [phone] The provider may be reached from 7a-7p at pager listed on [employer]. After these hours please page the department store door greeter or moonlighter. Cosigned by Yves Lamb MD [...] per MY note. Yves Lamb MD [facility] 06-11-2025 History and physical note CANCER [...] Deconditioning - PT/OT consult: rec home with [facility] Metastatic Melanoma - Follows with Dr. Walsh - Currently on immunotherapy with opdualag (last 05/21/25) - Dr. Walsh updated via email 06/11 - [facility] 06/21 Quality Self-Check Complexity. Malnutrition - Severe Protein-Calorie Malnutrition (POA) (06/11/2025 12:36 PM) secondary to Acute Illness / Injury (06/11/2025 12:36 PM) - Reviewed and agree with or first assist registered nurse's recommendations. Wound Documentation Any conditions listed below are present on admission unless otherwise specified. .Metastatic Cancer, Location of Metastasis - see above for additional details Body mass index is 21.64 kg/m . RESOLVED PROBLEMS N/A CHRONIC PROBLEMS RA - Cont home hydroxychloroquine - [facility] referred patient to Dr. Desai for evaluation [...] to discharge to PT/OT rec home with [facility]. Today they are expected to be medically ready for discharge on TBD. Follow-ups made: Dr. Desai 06/21, Dr. Walsh ([facility]) 06/21 Follow-ups needed: TBD SUBJECTIVE No acute [...] signs of inflammation. Neck no rigidity. Not TORRES MARTINEZ. MMM. Respiratory: Clear to auscultation bilaterally, no [...] MD: in agreement. Cris Rosa PA-C Pager: [phone] The provider may be reached from 7a-7p at pager listed on [employer]Genda. After these hours please page the department store door greeter or moonlighter. Cosigned by Yves Lamb MD [...] Yves Lamb MD documented in this encounter [facility] 06-11-2025 Plan of care note Problem: PT [...] to understanding of exercise program. Outcome: Ongoing [facility] 06-11-2025 Plan of care note Problem: OT [...] max UE ROM/Coordination/strength for ADLs. Outcome: Ongoing [facility] 06-11-2025 Consult note Associated Order (s): IP CONSULT TO CARDIOLOGY - HEART FAILURE _ CARDIOLOGY CONSULT Patient Name: Sebastian Hannon Date of Consult: 06/11/2025 Reason for Consultation: worried about increasing trop and elevated bnp- worried he needs to go to [facility] for Decomp HF ASSESSMENT AND PLAN: In summary, he is a 89 y.o. 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 CARDIAC PROBLEM LIST - Demand ischemia in the setting of dehydration, CKD - Pulmonary Hypertension, likely group 2 RVSP 69 mmHg on echocardiogram. RVSP 56 mmHg on RHC, - Heart failure with improved ejection fraction, s/p BiV ICD/MANAGEMENT ANALYST-D, NYHA Class II - CAD s/p cardiac bypass - OLGUIN to LAD (atretic), saphenous vein graft to xmudq7rt and 2nd obtuse marginal branch, saphenous venous [...] was evaluated and discussed with the attending fans clerk, Dr. Samson Jaffe . We will continue to follow for the results of the echocardiogram. Please do not hesitate to reach out with questions. Rafia Santos, DO Cardiovascular Disease Fellow, PGY-5 [facility] Objective HISTORY: It was my pleasure to see Mr. Sebastian Hannon in consultation at the [facility] on 06/11/2025 for evaluation of his ELIZABETH. He is a 89 y.o. 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 He notably was recently diagnosed with metastatic melanoma and underwent immunotherapy with lupnbrehl-jsfionguqu-cynx. He was reportedly doing okay for about [...] his therapies. He was seen by his fans clerk a little over a month ago. She [...] persists after 1st dose, call 911 Unknown Vuzslhfvp-Jlvdtjtdsy-vkis (OPDUALAG IV) by Intravenous route. Spironolactone 25 [...] is already feeling better. Samson Jaffe M.D. Research Associate, Internal Medicine [facility] Cardiovascular Medicine *[phone] [facility] Work Phone: 06-10-2025 Nurse Note 06/10/25 1620 Referral Information Arrived From home or self-care Readmission Information Was patient readmitted within 30 Days? No Information Source Information Source patient ;child;review of medical record Contact Information This Stack Clerk is Primary Fine Arts Model/SW No Living Environment Lives With child(katty), adult [...] Retired Employment/Financial Concerns no Source Of Income pension/detention Financial Concerns none Insurance Medical Insurance Verified Yes Prescription Coverage Yes Pharmacy updated in IS Yes Initial Discharge Planning Home Care Services (PHARMACY INTAKE TECHNICIAN) No Home Therapies (PHARMACY INTAKE TECHNICIAN) None DME (PHARMACY INTAKE TECHNICIAN) Walker Patient Goal for Discharge Get better Expected Discharge Disposition HH Anticipated Services at Discharge Prison;Physical Therapy;Occupational Therapy;Outpatient follow up;DME Anticipated Changes Related [...] normally lives alone in his home in [place], [place]. Patient has been living with Tricia at [address] [place] [address] while receiving cancer treatment. Tricia inquired about [...] discharge planning. Oz GOODEN RN Patient Care Machine Load Clerk IRP/Carlene [phone] (office) For evening and weekend discharge assistance, please page the on-call PCRM at [phone]. [facility] 06-10-2025 Note Acute Coronary Syndr ome (ACS): Initial Evaluation and Management: [email or web address] [facility] 06-10-2025 Note Acute Coronary Syndr ome (ACS): Initial Evaluation and Management: [email or web address] [facility] 06-10-2025 Plan of care note Images from the original note were not included. 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 I spoke to the patient and his daughter about the symptoms that brought him in. He notably was recently diagnosed with metastatic melanoma and underwent immunotherapy with yyijjaotj-cxpyrdewbc-ewsm. He was reportedly doing okay for about [...] his therapies. He was seen by his fans clerk a little over a month ago. She [...] failure with improved ejection fraction, s/p BiV ICD/MANAGEMENT ANALYST-D, NYHA Class II - CAD s/p cardiac bypass - OLGUIN to LAD, saphenous vein graft to ywxwh3ct and 2nd obtuse marginal branch, saphenous venous [...] Santos DO Cardiovascular Disease Fellow, PGY-5 [facility] Imaging and other tests Device check 04/24/2025: [...] of fistulous communication with pulmonary artery. [facility] Work Phone: 06-10-2025 Miscellaneous Notes Images from the original note were not included. 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 I spoke to the patient and his daughter about the symptoms that brought him in. He notably was recently diagnosed with metastatic melanoma and underwent immunotherapy with xwnwtypoi-izqwscpscu-ewqr. He was reportedly doing okay for about [...] his therapies. He was seen by his fans clerk a little over a month ago. She [...] failure with improved ejection fraction, s/p BiV ICD/MANAGEMENT ANALYST-D, NYHA Class II - CAD s/p cardiac bypass - OLGUIN to LAD, saphenous vein graft to [id number] and 2nd obtuse marginal branch, saphenous venous [...] Santos DO Cardiovascular Disease Fellow, PGY-5 [facility] Imaging and other tests Device check 04/24/2025: [...] pulmonary artery. documented in this encounter [facility] 06-10-2025 History of Present illness Narrative Summary: Psychosocial Assessment Psychosocial Assessment Per chart review, patient is a 89 y.o., male, who was admitted for anorexia and malaise SW met with patient to introduce self, explain protective services social worker role during inpatient stay, and answer questions. Patient was alert and oriented x4 and agreeable to SW visit. Contact Information: Fine Arts Model Name: See care team Fine Arts Model's Phone Number: See care team Social Work Contact Name: See care team Motor Vehicle Inspector's Phone Number: See care team Legal Decision Maker: If a patient is without decision making capacity, the recognized order of legal representation is legal guardian, followed by healthcare power of bmw service technician/advance directives, and then the patient's legal next of kin. Guardian of Person: no Advance Directives: Patient does not have any advance directives on file. SW inquired whether or not patient is interested in completing health care power of bmw service technician and/or living will paperwork during this visit. SW reviewed the documents, discussed the benefits of completing them, and provided education re: Legal NOK (LNOK). Patient declined interest in completing the documents at this time. Legal NOK Considerations: Per [place] law, legal next of kin is in the following order: legal spouse, majority of adult children, parents, majority of adult siblings, nearest adult related by blood or adoption (aunt, uncle, niece, nephew, cousin, grandchildren, grandparent). Adult children: yes If yes, how many? one daughter, Tricia Gonzales, (ph: [phone]) Emotional/Psychological: Mood: congruent to situation Current Interpersonal [...] Retired Employment/Financial Concerns: no Source Of Income: pension/detention Food Insecurity: Within the past 12 months, [...] mild concern about losing primary residence in [place], [place]. No concern about losing current housing [...] needed during inpatient stay. BOONE Gutierrez IRP Motor Vehicle Inspector PH: [phone] documented in this encounter [facility] 06-10-2025 Note Acute Coronary Syndr ome (ACS): Initial Evaluation and Management: [email or web address]/Acute%2 0Coronary%20Syndrome.pdf#search=[email or web address] claudia [facility] 06-09-2025 Emergency department Note Bed: E003 Expected date: Expected time: Means of arrival: Comments: [facility] 06-09-2025 Emergency department Note Bed: E003 Expected date: Expected time: Means of arrival: Comments: [facility] Signout: Sebastian Hannon 89 y.o. male with [...] is: JOB vs admit CHICHI Vanessa 06/09/25 3899 CHICHI Vanessa 06/10/25 0116 EMERGENCY DEPARTMENT ENCOUNTER [...] to 45%. HPI obtained from: patient, daughter Python Engineer: none REVIEW OF SYSTEMS Review of Systems [...] CP persists after 1st dose, call 911 Vxoihucqc-Sqsljfywgs-tkfe (OPDUALAG IV) by Intravenous route. Spironolactone 25 [...] 0.44 (L) 0.83 - 3.57 K/uL Abs Yoakum Auto 0.65 0.24 - 0.93 K/uL Abs [...] a medical document. It is intended as yxqc-ym-ucvx communication. It is written in medical language [...] use: Not Currently Drug use: Never Social youmag of Health Received from [facility] Safety & Environment Bruna Carrillo PA-C 06/09/25 0761 ED ATTENDING NOTE Chief Complaint: Anorexia and [...] fluid administration. Now residing with daughter in [place]. No recent falls or head injuries. Past [...] Personal Safety: Unknown (11/25/2023) Received from [facility] Safety & Environment Fear of [...] was used for documentation and errors in clinical marketing manager may have occurred despite proof reading. Felix [...] disease Felix Sweeney MD 06/09/25 1656 Bed: [facility] Expected date: Expected time: Means of arrival: Comments: triage Patient arrives with CC fatigue and loss of appetite for 3 days. Patient is currently receiving immunotherapy for melanoma. First treatment in May. Patient states he has been feeling generally unwell. Denies CP/SOB, N/T, diarrhea, urinary symptoms. Endorses nausea without vomiting and intermittent constipation. A&Ox4. VSS. documented in this encounter [facility] 06-09-2025 Note Acute Coronary Syndr ome (ACS): Initial Evaluation and Management: [email or web address]/Acute%2 0Coronary%20Syndrome.pdf#search=t claudia [facility] 06-09-2025 Physician Emergency department Note Signout: Sebastian [...] is: JOB vs admit CHICHI Vanessa 06/09/25 2319 CHICHI Vanessa 06/10/25 0116 [facility] 06-09-2025 Note Acute Coronary Syndr ome (ACS): Initial Evaluation and Management: [email or web address]/Guidelines/Acute%2 0Coronary%20Syndrome.pdf#search=t claudia [facility] 06-09-2025 Physician Emergency department Note EMERGENCY DEPARTMENT [...] to 45%. HPI obtained from: patient, daughter Python Engineer: none REVIEW OF SYSTEMS Review of Systems [...] CP persists after 1st dose, call 911 Jqrnedrye-Cukvnhcgsn-bnvd (OPDUALAG IV) by Intravenous route. Spironolactone 25 [...] 0.44 (L) 0.83 - 3.57 K/uL Abs Yoakum Auto 0.65 0.24 - 0.93 K/uL Abs [...] a medical document. It is intended as lrxp-sw-zinm communication. It is written in medical language [...] Social Drivers of Health Received from [facility] Safety & Environment Bruna Carrillo PA-C 06/09/25 1759 [facility] 06-09-2025 Physician Emergency department Note ED ATTENDING [...] fluid administration. Now residing with daughter in [place]. No recent falls or head injuries. Past [...] Personal Safety: Unknown (11/25/2023) Received from [facility] Safety & Environment Fear of [...] was used for documentation and errors in clinical marketing manager may have occurred despite proof reading. Felix [...] heart disease Felix Sweeney MD 06/09/25 1656 [facility] Work Phone: 06-09-2025 Emergency department Note Bed: [facility] Expected date: Expected time: Means of arrival: Comments: triage [facility] 06-09-2025 Emergency department Note Patient arrives with CC fatigue and loss of appetite for 3 days. Patient is currently receiving immunotherapy for melanoma. First treatment in May. Patient states he has been feeling generally unwell. Denies CP/SOB, N/T, diarrhea, urinary symptoms. Endorses nausea without vomiting and intermittent constipation. A&Ox4. VSS. [facility] 05-21-2025 History of Present illness Narrative 1545 Report received from Lanie SEARS, ok for treatment today, rtc 06/18,07/16,08/13,09/10 after provider. Message sent to [place] [facility] to schedule patient for [...] for AVS. documented in this encounter [facility] 05-21-2025 Instructions Yudi Aragon RN - [...] to local ER. Please call our office ([phone]) if you have 4 or more bowel [...] through Care Everywhere.Nivolumab/Relatlimab Injection (NIVOLUMAB/RELATLIMAB - INJECTION) (Finnish)documented in this encounter [facility] 05-21-2025 History of Present illness Narrative [...] further questions. Name: Flynn Hernandes RPH Phone: [phone] Date/Time: 05/21/2025 3:39 PM NEW PATIENT: MEDICAL ONCOLOGY - SKIN & MELANOMA CENTER Note to patient: The Century Cures Act makes medical notes like these available to patients in the interest of transparency. However, be advised this is a medical document. It is intended as vyev-jd-btlw communication. It is written in medical language [...] last echocardiogram was six months ago at [facility]. He was seen by Dr. Dylon Kate [...] Malignant Melanoma Scalp 08/31/2023 Pathology Path #: [id number] 09/23/2023 Other Negative for BRAF V600 10/28/2023 Pathology WLE/SLNBx requiring Right Parotidectomy OUTSIDE SLIDES: [id number] (10/28/2023); [facility] (Case: [id number]) A. Skin, right scalp, long stitch lateral [...] Was followed on surveillance 03/28/2025 Pathology Case: [id number] @ [facility] FINAL DIAGNOSIS 3 SLIDES, [facility], #[id number] (BX: 03/28/2025) ([facility]- Dr. Renee Roque) [...] 05/21/25 C1D1 05/21/2025 - Research Study Participant [facility] [id number] [facility] Malignant Melanoma Tissue Bank 05/21/25 consent signed; [...] 0.76 (L) 0.83 - 3.57 K/uL Abs Yoakum Auto 0.66 0.24 - 0.93 K/uL Abs [...] evidence of cerebral metastasis. Assessment and Plan: Seabstian Hannon is a 89 y.o. male who [...] with nivolumab/relatlimab (Opdualag). If there is a MANAGEMENT ANALYST metastatic disease on the head CT scan [...] 07/07/2019 Added automatically from request for surgery [id number] I've discussed and provided education in general [...] with this patient, including 35 minutes to family and marriage counsellor the patient about the treatment, tests results, and the diagnosis of cancer. Duglas Walsh M.D., Ph.D. Research Associate of Clinical Medicine Cutaneous oncology Division of Medical Oncology [facility] to Infusion Handoff Report S Patient [...] n/a If change to Chemo/Supportive Plans was targeteer notified n/a Report called to aerial installer and report given to Yes If unable to call report SBAR Handoff completed n/a R Patient has AVS, completed check out, and discharged to infusion unit For questions please call: Lanie Hernandez RN Report given to MARQUITA Keating. Patient ambulatory, escorted with guest to export packer for return appointments. documented in this encounter [facility] 05-21-2025 Instructions Lanie Hernandez RN - 05/21/2025 1:20 PM EDT Symptoms management at home: Please call the office at [phone] Itchy skin/rash: if mild then you may [...] visit please call our clinic office at [phone]. For any symptom management please call our [...] call 911. Our office fax number is [phone] Preparing for your next clinic visit Please [...] that the outside facility faxes the results [phone] If you have been hospitalized and do not have a follow-up appointment with our office, please call to schedule at [phone]. Return to clinic : 06/21 at 1120 [...] C5 Referrals: No documented in this encounter [facility] 05-11-2025 History of Present illness Narrative PCRM [...] by INS. PCRM reached out to the GRAPHICS PROGRAMMER. PCRM contacted GRAPHICS PROGRAMMER- emailed link for PASSPORT benefits, however advised will have GRAPHICS PROGRAMMER contact her with details on how to apply- and cover all questions. Voiced appreciation - referral placed. documented in this encounter [facility] 05-10-2025 History of Present illness Narrative PCRM received a message from provider in clinic. New pt- daughter would like a call about home health services. EMR reviewed. PCRM contacted pt's daughter- This PCRM attempted contacting pt without success. Left voice message with direct number for call back. HIPAA maintained. Division of Medical Oncology Sylwia Navarro RN, BSN, PCR Office phone: [phone] Clinic Clinic Note to patient: The Cures Act makes medical notes like these available to patients in the interest of transparency. However, be advised this is a medical document. It is intended as lmmz-je-hqhi communication. It is written in medical language [...] call after 9:30am would be best. CB: [phone] documented in this encounter [facility] 05-10-2025 History of Present illness Narrative Images from the original note were not included. NEW PATIENT: MEDICAL ONCOLOGY - SKIN [facility] Note to patient: The Cures Act makes medical notes like these available to patients in the interest of transparency. However, be advised this is a medical document. It is intended as kjmc-ok-hhad communication. It is written in medical language [...] last echocardiogram was six months ago at [facility]. He was seen by Dr. Dylon Kate [...] therapy due to his daughter lives near [place]. He admits to ELIZABETH but is still [...] Malignant Melanoma Scalp 08/31/2023 Pathology Path #: [id number] 09/23/2023 Other Negative for BRAF V600 10/28/2023 Pathology WLE/SLNBx requiring Right Parotidectomy OUTSIDE SLIDES: [id number] (10/28/2023); [facility] (Case: [id number]) A. Skin, right scalp, long stitch lateral [...] Was followed on surveillance 03/28/2025 Pathology Case: [id number] @ [facility] FINAL DIAGNOSIS 3 SLIDES, [facility], #[id number] (BX: 03/28/2025) ([facility]- Dr. Renee Roque) [...] 0.76 (L) 0.83 - 3.57 K/uL Abs Yoakum Auto 0.56 0.24 - 0.93 K/uL Abs [...] with nivolumab/relatlimab (Opdualag). If there is a MANAGEMENT ANALYST metastatic disease on the head CT scan [...] RA management with immunotherapy. Chiqui Navarro RN, [facility] will contact the patient's daughter to discuss any home needs. 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 I've discussed [...] ON (PATH HAS SPECIMEN) Oxana Espinosa, DNP, RECYCLE COORDINATOR-BAIT MAN Nurse Practitioner Melanoma & Other Cutaneous Malignancies [facility] We are committed to improving people's lives [...] and treatment options. We have recommended completing MANAGEMENT ANALYST staging scan as soon as possible to determine whether he has melanoma brain metastases, as that can impact his treatment options. We were made aware by his pacemaker's diesel automotive technician that his pacemaker is not compatible with MRI scanner. Therefore, we will obtain staging CT head, knowing that the sensitivity for detecting intracranial metastases may be limited (particularly if the lesion sizes are small). We have discussed w/ the pt that we may recommend ipi/nivo if he has MANAGEMENT ANALYST metastases, whereas we may recommend the recently approved immunotherapy (nivo/relatlimab, or Opdualag) if he does not have MANAGEMENT ANALYST metastases. We have discussed the potential irAEs [...] or less if there is evidence of MANAGEMENT ANALYST mets. Pt and his daughter verbalized understanding of the pros vs cons of the treatment, and have decided to proceed with the recommended immunotherapy treatment regimen, depending on the result of his upcoming MANAGEMENT ANALYST staging scan. Pt has tentatively signed the pre-authorization paperwork for both regimens. We will await the result of the MANAGEMENT ANALYST staging scan before deciding which regimen to [...] also recommended that the patient follows with reception agent q3-6 months for a total body skin exam as part of melanoma surveillance. Pt and his daughter verbalized understanding of the discussion today and are in agreement w/ the plan. We spent a total of 60 minutes face to face with this patient, including 45 minutes to family and marriage counsellor the patient about the treatment, tests results, and the diagnosis of cancer. Duglas Walsh M.D., Ph.D. Research Associate of Clinical Medicine Cutaneous oncology Division of Medical Oncology [facility] Called Dr Renee Judge's office [phone], to find out if implantable cardioverter defibrillator is MRI compatible. Jey Galvan at office must call [phone]. Called and spoke with Fouzia, was placed on brief hold while Fouzia called [employer]. Spoke with Michelle from [employer], the defibrillator is not MRI compatible due to RA lead per [facility], and capped lead also disqualifies patient for MRI. Advised Neida Espinosa, RECYCLE COORDINATOR-BAIT MAN. Patient daughter asked for referral to Social Work, ANGEL Florian to call daughter Card with defibrillator info handed back to patient. Patient ambulatory, escorted with daughter to export packer for return appointments. documented in this encounter [facility] 05-10-2025 Instructions Lanie Hernandez RN - 05/10/2025 9:20 AM EDT Contacting Our Office For any questions or concerns related to your oncology care that need addressed before your next scheduled visit please call our clinic office at [phone]. For any symptom management please call our office to directly speak with a nurse and refrain from using [facility], as we may need additional details regarding your symptoms. You may utilize [facility] for non-urgent questions. These messages are not checked on evenings, weekends, and holidays. We may ask you to send pictures of rashes or skin changes through [facility]. Clinic staff nurses are available to answer [...] call 911. Our office fax number is [phone] Preparing for your next clinic visit Please [...] that the outside facility faxes the results [phone] If you have been hospitalized and do not have a follow-up appointment with our office, please call to schedule at [phone]. Return to clinic : 1-2 weeks - after STAT CT Head Provider: Dr Walsh Labs: Yes Scans: STAT CT Head Treatment: Either ipi/nivo OR nivo/relat Referrals: Immunotoxicity clinic, Pathology The following attachments cannot be sent through Care Everywhere.Checkpoint Inhibitor Immunotherapy ([facility]) (Finnish)documented in this encounter [facility] 05-07-2025 Telephone encounter Note 7/16 PET report in IHIS Nominated 7/16 PET images in [place] as well as several other scans [facility] Miscellaneous Notes 7/16 PET report in IHIS Nominated 7/16 PET images in [place] as well as several other scans Patient's daughter, Tricia, called in about Sebastian's appointment this week. She wanted to confirm that the records we needed were received, specifically the PET. Relayed we should have everything we need at this point. CB: [phone] Records from [employer]. Sent to apps, clinical team and medical records. documented in this encounter [facility] 05-07-2025 Telephone encounter Note Patient's daughter, Tricia, called in about Sebastian's appointment this week. She wanted to confirm that the records we needed were received, specifically the PET. Relayed we should have everything we need at this point. CB: [phone] [facility] 05-01-2025 Telephone encounter Note Records from [employer]. Sent to apps, clinical team and medical records. [facility] 05-01-2025 Miscellaneous Notes Records from [employer]. Sent to apps, clinical team and medical records. documented in this encounter [facility] 04-30-2025 Note [place] [facility] - [facility] Subjective Sebastian Hannon is a 89 [...] Lasix has been canceled per starr in [place]. Patient denies chest pain, Patient complains of [...] arthritis (CMS/HCC) Thrombocytopenia Cardiac resynchronization therapy defibrillator (MANAGEMENT ANALYST-D) in place Pulmonary heart disease, unspecified (CMS/HCC) [...] [OLGUIN to LAD, saphenous vein graft to japos9ur and 2nd obtuse marginal branch, saphenous venous [...] reactive to light. (more content not included)... [facility] 04-17-2025 History of Present illness Narrative Assessment [...] through imaging surveillance with Dr. Weinberg in [place] and has a PET scan scheduled for [...] will continue surveillance with Dr. Weinberg in [place]. Regarding his excision, I described that the [...] with the plan. He will see his fans clerk on April 30 and we will plan for surgery at [place] on May 07. I spent 60 minutes in the professional and overall care of this patient. 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 [facility] 03-01-2025 Note Patient: Sebastian Irizarry is Procedure Information Date/Time: 03/01/25 1030 Procedure: Right heart cath - PC APPROVED call daughter tricia Location: [facility] / [facility] (Cath) Providers: Dylon Kate MD [...] with attending and fellow. Additional Equipment Requests 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 [facility] 01-23-2025 Evaluation note Diagnosis Onset Date Resolution [...] Rheumatoid arthritis acute March 21, 2025 8:52am [facility] Work Phone: 1(736) 503-304604-04-2025 Evaluation note* Diagnosis Onset Date Resolution Status [...] Rheumatoid arthritis acute March 21, 2025 8:52am [facility] Work Phone: 1(460) 483-236602-27-2025 NotePatient here for 6 mo follow up [...] pain. All other systems reviewed and are negative.[facility] 11-30-2024 NoteCardiovascular Medicine [facility] SUBJECTIVE Chief Complaint Patient presents with [...] Thrombocytopenia Cardiac resynchronization t (more content not included)...[facility] Evaluation note* Diagnosis Onset Date Resolution Status [...] 2024 8:58am Rheumatoid arthritis acute 2024 8:58am [facility] Work Phone: 1(208) 874-261602-17-2025 Evaluation note* Diagnosis Onset Date Resolution Status [...] Rheumatoid arthritis acute Apri l 2024 1:47pm [facility] Work Phone: 1(937) 736-223802-17-2025 Evaluation note* Diagnosis Onset Date Resolution Status [...] lower extremity acute January 23, 2025 9:00am [facility] Work Phone: 1(709) 775-343501-02-2025 Evaluation note* Diagnosis Onset Date Resolution Status Admit Date Abnormal computerized axial tomography of liver acute October 05, 2024 2:50pm Cardiac pacemaker acute October 05, 2024 2:50pm Encounter for coordination o f complex care acute October 05 2:50pm History of prostate cancer acute October 05, 2024 2:50pm Melanoma of head acute October 05, 2024 2:50pm Rheumatoid arthritis acute 2024 2:50pm [facility] Work Phone: 1(973) 338-632201-02-2025 Evaluation note* Diagnosis Onset Date Resolution Status [...] Rheumatoid arthritis acute Febr uary 2024 8:58am [facility] Work Phone: 1(980) 123-907201-02-2025 [facility] [place] [address] Cancer Center Note Signed Patient: Sebastian Hannon MR#: [id number] : 1935 Acct:[id number] Age/Sex: 89 / M Type: DEP AMB [...] recurrence. The patient's daughter who lives in [place] will be available by phone consultationat the time of his follow-up. He does have capacity for decision-making. All questions were answered over this 60-minute initial consultation. 12/17/2023: Discussion of negative BRAF status and no evidence of MANAGEMENT ANALYST disease on contrast head CT from 11/29/2023. [...] eyelid (he is scheduled to follow-up with [facility] ophthalmology in May 2025 for [...] assist with memory of recommendations. Moderate complexity 31-[id number]-dr. 03/16/2024: Sebastian presents with his daughter for [...] the deep margin. He was referred to [facility] head neck oncologic surgery. On 10/28/2023 he [...] specimen and this [facility] be [facility] from [facility]. Given his history of rheumatoid arthritis on [...] at that time. She lives in the [place] area and will be available by [facility] for his follow- up appointment, hopefully [...] 2. Discussion of adjuvant options 11/24/2023 at [facility]. Negative BRAF status. PET/CT negative for [...] and go over labs and extremity Ultrasound. [facility] Medical History Medical History Medicare annual wellness visit, subsequent Thrombocytopenia Ischemic cardiomyopathy Echo: [id number]%, RACHAEL, RV dilated, RVSP 72, bioprosthetic MV [...] MD DD/ 1451 Signed By: 10/06/24 1322 [facility]11-01-2024 History of Present illness Narrative * [...] History Patient lives alone, daughter lives in [place] Family History Denies family history of [...] findings Elkin Holly MD [facility] Work Phone: 1(104) 846-734310-17-2024 Evaluation note* Diagnosis Onset Date Resolution Status [...] Rheumatoid arthritis acute Dalton annelise 2024 2:50pm [facility] Work Phone: 1(107) 376-181309-18-2024 Progress note Author Adilene Weinberg [facility] June 21, 2024 1:09pm Note Date/Time June 21, 2024 10:22am [facility] [place] [address] Cancer Center Note Signed Patient: Sebastian Hannon MR#: [id number] : 1935 Acct:[id number] Age/Sex: 88 / M Type: REG AMB [...] recurrence. The patient's daughter who lives in [place] will be available by phone consultationat the time of his follow-up. He does have capacity for decision-making. All questions were answered over this 60-minute initial consultation. 12/17/2023: Discussion of negative BRAF status and no evidence of MANAGEMENT ANALYST disease on contrast head CT from 11/29/2023. [...] eyelid (he is scheduled to follow-up with [facility] ophthalmology in May 2025 for [...] assist with memory of recommendations. Moderate complexity 88-gtybtjqsauyl-xq. 03/16/2024: Sebastian presents with his daughter for [...] the deep margin. He was referred to [facility] head neck oncologic surgery. On 10/28/2023 he [...] specimen and this will be requested from [facility]. Given his history of rheumatoid arthritis on [...] at that time. She lives in the [facility] and will be available by [facility] for his follow-up appointment, hopefully within [...] 2. Discussion of adjuvant options 11/24/2023 at [facility]. Negative BRAF status. PET/CT negative for [...] go over CT scans. No newconcerns today. [facility] Medical History Medical History Thrombocytopenia Ischemic cardiomyopathy Echo: [id number]%, RACHAEL, RV dilated, RVSP 72, bioprosthetic MV [...] <Electronically signed by MD Adilene Weinberg> 06/21/24 7487 [facility] Work Phone: 1(427) 339-467608-19-2024 Hospital Discharge instructions Patient Education 05/22/2024 09:19:11 [...] treatment? Where to find more information The [place] [employer]: www.cancer.org [place] [employer]: www.auanet.org Contact a health care [...] provider. Document Revised: 03/16/2022 Document Reviewed: 03/16/2022 IAMINTOIT Patient Education 2022 MustHaveMenus. Follow Up Care 05/17/2023 09:45:06 With:MOY ARRIAGA, Cristela Carbajal, URL Address: [facility] [address], [place] [address] [phone] When: Unknown Comments:1 yr w/ PSA [facility] 08-19-2024 NotePatient Education Oncology Prostate Cancer [...] Where to find more information ? The [place] [employer]: www.cancer.org ? [place] [employer]: www.auanet.org Contact a health care [...] front of the rectum. (more content not included)...[facility]07-29-2024 Instructions* Patient Instructions* Caryl Ley MD - [...] , sooner if issues [facility] History of Present illness Narrative* Caryl Ley MD - 05/01/2024 9:00 AM EDT Pt is here today for a Dermachalasis evaluation States he had melanoma 6 months ago and the droopy eyelid is a result form taking the melanoma out,denies pain NEW patient A/P: Heavy upper eyelids H/o melanoma right forehead s/p SNLB + LN with melanoma Dr. Holly @ [facility] -->not getting immunotherapy yet; managed by [...] is accurate and complete. [facility]04-15-[facility] History of Present illness Narrative* Debbie Alfaro [...] Normal communication without aids, normal voice quality tech and Face Well-healed right forehead vertical incision. [...] Head & Neck Surgery documented in this [facility] Work Phone: 1(571) 650-645604-15-2024 History of Present illness Narrative* Elkin Holly [...] History Patient lives alone, daughter lives in [place] Family History Denies family history of [...] concern Elkin Holly MD documented in this [facility] Work Phone: 1(446) 990-780102-05-2024 History of Present illness Narrative* lEkin Holly MD - 11/08/2023 2:45 PM EST [...] History Patient lives alone, daughter lives in [place] Family History Denies family history of [...] eyelid Elkin Holly MD documented in this [facility] Work Phone: 1([phone]) 295-626201-25-2024 Miscellaneous Notes* Op Note - Elkin Holly [...] Surgeons * Elkin Holly - Primary Resident/Fellow/Other Network Operations Lead: Surgeon(s) and Role:adeyeni Procedure Summary Anesthesia: General [...] DERMATOPATHOLOGY Elkin Holly MD 10/28/2023 1404 Staff: Certified Flight Instructor: Miracle Lara RN Scrub Person: Anisa Cunningham [...] to fascia Elkin Holly documented in this [facility] Work Phone: 1([phone]) 637-818401-25-2024 Note* Op Note - Elkin Holly MD [...] Surgeons * Elkin Holly - Primary Resident/Fellow/Other Network Operations Lead: Surgeon(s) and Role:taty Procedure Summary Anesthesia: General [...] DERMATOPATHOLOGY Elkin Holly MD 10/28/2023 1404 Staff: Certified Flight Instructor: Miracle Lara RN Scrub Person: Anisa Cunningham Findings: 2 preauricular lymph nodes identified Indications: Sebastian Hannon is an 88 y.o. male who is having surgery for Malignant melanoma of forehead ([facility]) [C43.39]. The patient was seen in the [...] excision Other deep to fascia Elkin Holly [facility] Work Phone: 1([phone]) 517-180701-25-2024 Hospital Discharge instructions* Discharge Instructions* Naima Rodgers MD - 10/28/2023 12:13 PM EST Facial/Neck Incision Care: Cleanse all facial/neck incisions twice daily with baby shampoo or mild soap and water. Apply petroleum jelly/vaseline to incision line twice daily until incision has healed. [facility] Work Phone: 1([phone]) 426-265601-25-2024 Attending History and physical note* Elkin Holly MD - 10/28/2023 10:10 AM EST H&P reviewed. The patient was examined and there are no changes to the H&P. Source Note - User [facility] - 10/19/2023 12:00 AM EST [facility] Work Phone: 1(809) 279-115301-25-2024 History and physical note* Elkin Holly MD - 10/28/2023 10:10 AM EST H&P reviewed. The patient was examined and there are no changes to the H&P. 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 No bleeding complications Jul, Primary hypertension (ICD-10 [...] (ICD-10 - Z79.899) Check labs: CBC, ALT [facility] Other 08-28-2023 Evaluation note* Encounter Date Diagnosis Assessment Notes Treatment Notes Treatment Clinical Notes May, Seasonal allergic rhinitis due to pollen (ICD-10 - J30.1) [facility] Other 08-14-2023 Hospital Discharge instructions Patient Education [...] under a microscope. This is called the Lindsay score and the total score can range from 6 10, indicating how likely it is that the cancer will spread (metastasize) to other parts of the body. The higher the score, the greater thelikelihood that the cancer will spread. Aleksey 6 or lower: This indicates that the cancer cells look similar to normal prostate cells (well differentiated). Lindsay 7: This indicates that the cancer cells [...] stress of having cancer. General instructions Take yvaz-jiz-pyskgar and prescription medicines only as told by your health care provider. If you have to go to the hospital, notify your cancer specialist (oncologist). Keep all follow-up visits. This is important. Where to find more information [place] [employer]: www.cancer.org [place] Society of Clinical Oncology: www.cancer.net [place] Cancer [place]: www.cancer.gov Contact a health care provider if: [...] provider. Document Revised: 12/17/2021 Document Reviewed: 12/17/2021 IAMINTOIT Patient Education 2022 MustHaveMenus. Follow Up Care 05/04/2022 13:27:43 With:MOY ARRIAGA, Cristela Carbajal, URL Address: [facility] [address], [place] [address] [phone] When:Within 1 Year(s) Comments:PSA [facility] 07-28-2023 Evaluation note* Encounter Date [...] exercise and AHA diet plan. Avoid decongestants [facility] Other 04-05-2023 Evaluation note* Encounter Date Diagnosis [...] are maintaining regular scheduled appts with their fans clerk. Jan, Chronic venous insufficiency (ICD-10 - I87.2) [...] cardiac pacemaker in situ (ICD-10 - Z95.0) [facility] Other 2022 NoteHISTORY AND PHYSICAL EXAMINATION Date:04/15/2022 [...] and go forward with his elective procedure.[facility] CenterSvbkzckk21-28-8100 NoteOPERATIVE NOTE OPERATION DATE: 04/16/2022 SURGEON: Debbie [...] ensuring mobility, phacoemulsification was performed in a viutpxi-lhw-wndkjx-type fashion. After all nuclear material had been [...] up the following day for postoperative care.[facility] 05-07-2022 NoteOPERATIVE NOTE OPERATION DATE: [...] ensuring mobility, phacoemulsification was performed in a tafxzqi-jgw-dftuvd-type fashion. After all nuclear material had been [...] up the following day for postoperative care.[facility] CenterZodtsnrc74-79-7656 NoteHISTORY AND PHYSICAL EXAMINATION Date:05/06/2022 HISTORY: Patient [...] decline other than that of cataract. 2. JTIQY-20-Cfc patient was briefed in the office and [...] and go forward with this elective procedure.[facility] [id number] Hospital Discharge instructions Patient Education 05/04/2022 13:26:39 [...] urethra. Follow these instructions at home: Take wptv-jfc-fogoiff and prescription medicines only as told by [...] 09/20/2006 Document Revised: 08/15/2019 Document Reviewed: 10/25/2017 IAMINTOIT Patient Education 2020 MustHaveMenus. Follow Up Care 04/11/2021 11:38:50 With:MOY ARRIAGA, Cristela Carbajal, URL Address: [facility] [address] [place] [address] [phone] When:Within 1 Year(s) Comments:w/ PSA [facility] 07-14-2022 NotePRE-OP HISTORY AND PHYSICAL [...] and go forward with his elective procedure.[facility] CenterGpcigjmn14-28-8496 NoteOP Note OPERATION DATE: 04/16/2022 SURGEON: Debbie [...] ensuring mobility, phacoemulsification was performed in a itpzpfa-mfp-ypahku-type fashion. After all nuclear material had been [...] up the following day for postoperative care.[facility] 11-03-2021 Evaluation note* Encounter Date [...] working and gentle motion and strength exercise. [facility] Other 01-07-2022 Evaluation note* Encounter Date Diagnosis [...] in office today. Prior medical notes from [facility] and history have been reviewed. [...] non-union discussed. We discussed the potential for vermin exterminator cosmetic deformity over the fracure site. Oct, Other See orders for this visit as documented in the electronic medical record. [facility] Other Evaluation + Plan note Future Appointments Appointment Date:05/17/2023 08:45:00 AM Scheduled Provider:Cristela WINTER MD Location:[facility] Appointment Type:URO Office Visit Diagnostic Tests Pending * PSA Total 05/04/22 [facility] evaluation + Plan note Future Appointments Appointment Date:05/22/2024 08:45:00 AM Scheduled Provider:Cristela WINTER MD Location:[facility] Appointment Type:URO Office Visit Diagnostic Tests Pending * PSA Total 05/17/23 [facility] evaluation + Plan note Future Appointments Appointment Date:05/25/2025 08:00:00 AM Scheduled Provider:Cristela WINTER MD Location:[facility] Appointment Type:URO Office Visit Diagnostic Tests Pending * PSA Total 05/22/24 [facility] evaluation noteNo assessment information available [facility] Work Phone: Evaluation noteNo InformationNort Urgent.ly Other Evaluation note* Diagnosis 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) documented in this encounter [facility] Work Phone: Evaluation note* Diagnosis 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) Post-op pain Other acute postoperative pain HTN (hypertension) Unspecified essential hypertension Hyperlipidemia Other and unspecified hyperlipidemia Atrial fibrillation (CMS/HCC) Atrial fibrillation documented in this encounter [facility] Work Phone: [phone] note* Diagnosis Malignant melanoma of forehead (CMS/HCC) documented in this encounter [facility] Work Phone: [phone] note* Diagnosis Malignant melanoma of forehead (CMS/HCC) documented in this encounter [facility] Work Phone: [phone] note* Diagnosis Onset Date Resolution Status Melanoma of head acute [facility] Work Phone: Evaluation note* Diagnosis Onset Date Resolution Status Cardiac pacemaker acute Encounter for coordination of complex care acute History of prostate cancer a cute Melanoma of head acute Rheumatoid arthritis acute Cardiac pacemaker acute Encounter for coordination of complex care acute History of prostate cancer a cute Melanoma of head acute Rheumatoid arthritis acute [facility] Work Phone: Evaluation note* Diagnosis Brow ptosis, right- Primary Dermatochalasis of right upper eyelid documented in this encounter [facility] Work Phone: Evaluation note* Diagnosis [...] (hypertension) acute Hypercholesterolemia acute Rheumatoid arthritis acute [facility] Work Phone: Evaluation note* Diagnosis Malignant melanoma of forehead (Multi)- Primary documented in this encounter [facility] Work Phone: [phone] note* Diagnosis Onset Date Resolution Status Cardiac [...] Melanoma of head acute Rheumatoid arthritis acute [facility] Work Phone: Evaluation note* Diagnosis Onset Date Resolution Status Cardiac pacemaker acute Encounter for coordination of complex care acute History of prostate cancer a cute Melanoma of head acute Rheumatoid arthritis acute Anemia acute ASHD (arteriosclerotic heart disease) acute Atrial fibrillation acute HTN (hypertension) acute Hypercholesterolemia acute Melanoma of head acute Rheumatoid arthritis acute Thrombocytopenia acute [facility] Work Phone: Evaluation note* Diagnosis Dermatochalasis of both upper eyelids- Primary Myogenic ptosis of bilateral eyelids [facility] Diagnosis Onset Date Resolution Status Anemia acute ASHD (arteriosclerotic heart disease) acute Atrial fibrillation acute HTN (hypertension) acute Hypercholesterolemia acute Melanoma of head acute Rheumatoid arthritis acute Thrombocytopenia acute Abnormal computerized axial tomography of liver acute Cardiac pacemaker acute Encounter for coordination of complex care acute History of prostate cancer a cute Melanoma of head acute Rheumatoid arthritis acute [facility] Work Phone: evaluation note* Diagnosis Onset [...] Melanoma of head acute Rheumatoid arthritis acute [facility] Work Phone: evaluation note* Diagnosis Onset [...] head acute Rheumatoid arthritis acute Thrombocytopenia acute [facility] Work Phone: Evaluation note* Diagnosis Malignant melanoma of forehead (Multi)- Primary documented in this encounter [facility] Work Phone: Evaluation note* Diagnosis [...] head acute Rheumatoid arthritis acute Thrombocytopenia acute [facility] Work Phone: Evaluation note* Diagnosis Melanoma of back (Multi)- Primary Melanoma of back (Multi)- Primary documented in this encounter [facility] Work Phone: Evaluation note* Diagnosis Malignant melanoma of upper back [facility] Melanoma of [facility]- Primary 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 [facility] Diagnosis Metastatic melanoma Melanoma of skin, site unspecified [facility] Diagnosis Melanoma of scalp- Primary 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 Metastatic melanoma Melanoma of skin, site unspecified Rheumatoid arthritis, involving unspecified site, unspecified whether rheumatoid factor present Other restrictive cardiomyopathy Metastatic melanoma Melanoma of skin, site unspecified [facility] Diagnosis Melanoma of scalp- Primary 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 [facility] Diagnosis Melanoma of scalp- Primary 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 [facility] Diagnosis Melanoma of scalp- Primary 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 Encounter for hydration prior to CT scan [facility] Diagnosis Hypomagnesemia- Primary Disorders of magnesium metabolism Hypokalemia Hypopotassemia Elevated troponin Other abnormal blood chemistry Elevated brain natriuretic peptide (BNP) level Other nonspecific findings on examination of blood Other fatigue ELIZABETH (dyspnea on exertion) Other dyspnea and respiratory abnormality [facility] Diagnosis Failure to thrive in adult- Primary Adult failure to thrive Atrial fibrillation, unspecified type Melanoma of scalp 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 Chronic systolic heart failure Pulmonary HTN 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 [facility] Diagnosis Melanoma of scalp- Primary 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 [facility] N[facility]ative - Reported* Type Description Date Medical History Arthritis Surgical History cardiac pacemeker [facility] Other History general Narrative - Reported* Type [...] History COLONOSCOPY Hospitalization History SEE SURGICAL HX [facility] Other Hisdprc general Narrative - Reported* Type Description Date Surgical History cardiac pacemeker 2012 Surgical History EXTRACTION OF CATARACT OF BOTH EYES 2021 Surgical History REPLACEMENT, ICD, BIVENTRICULAR 2020 Surgical History CABG Surgical History MVR Surgical History COLONOSCOPY Hospitalization History SEE SURGICAL [facility] Other Hisdfce general Narrative - Reported* Type Description Date [...] History COLONOSCOPY Hospitalization History SEE SURGICAL HX [facility] Other History general Narrative - Reported* Type [...] History COLONOSCOPY Hospitalization History SEE SURGICAL HX [facility] Other Hospital course Narrative No data available for this section [facility] Hospital Discharge instructions No data available for this section [facility] progfrlh note No data available for this section [facility] progqvnv note Author Adilene Weinberg [facility] December 17, 2023 4:31pm Note Date/Time December 17, 2023 11: 39[facility] [address] Cancer Center Note Signed Patient: Sebastian Hannon MR#: [id number] : 1935 Acct:[id number] Age/Sex: 88 / M Type: DEP AMB [...] of recurrence. The patient's daughter wholives in [place] will be available by phone consultation at the time of his follow-up. He does have capacity for decision-making. All questions were answered over this 60-minute initial consultation. 12/17/2023: Discussion of negative BRAF status and no evidence of MANAGEMENT ANALYST disease on contrast head CT from 11/29/2023. [...] the deep margin. He was referred to [facility] head neck oncologic surgery. On 10/28/2023 he [...] specimen and this will be requested from [facility]. Given his history of rheumatoid arthritis on [...] at that time. She lives in the [facility] and will be available by [facility] for his follow-up appointment, hopefully within [...] 2. Discussion of adjuvant options 11/24/2023 at [facility]. Negative BRAF status. PET/CT negative for [...] up visit and go over BRAF results [facility] Medical History Medical History Cardiac pacemaker Carotid stenosis Bradycardia Rheumatoid arthritis History of prostate cancer CAD (coronary artery disease) BPH (benign prostatic hyperplasia) Atrial fibrillation Hyperlipidemia HTN (hypertension) Melanoma Surgical History Surgical History H/O cystoscopy Family History Family History Brother Heart disease [facility] Relation: Brother(s) Father Heart disease 85 yrs Mother 65 yrs Cancer [facility] Problem: Diagnosed with Cancer History of ovarian [...] findings negative for BRAF V600 Pathology review [facility] 10/28/2023: A. Skin wide local excision right [...] No extracapsular extension is seen) C. Node, [place] lymph node #2 right intraparotid Metastatic malignant [...] <Electronically signed by MD Adilene Weinberg> 12/17/23 9382 [facility] Work Phone: Progress note Author Adilene Weinberg [facility] Note Date/Time October 05, 2024 3: 18pm [facility] [place] [address] Cancer Center Note Signed Patient: Sebastian Hannon MR#: [id number] : 1935 Acct:[id number] Age/Sex: 89 / M Type: DEP AMB [...] recurrence. The patient's daughter who lives in [place] will be available by phone consultationat the time of his follow-up. He does have capacity for decision-making. All questions were answered over this 60-minute initial consultation. 12/17/2023: Discussion of negative BRAF status and no evidence of MANAGEMENT ANALYST disease on contrast head CT from 11/29/2023. [...] eyelid (he is scheduled to follow-up with [facility] ophthalmology in May 2025 for [...] assist with memory of recommendations. Moderate complexity 15-kegczgvfdnom-mo. 03/16/2024: Sebastian presents with his daughter for [...] the deep margin. He was referred to [facility] head neck oncologic surgery. On 10/28/2023 he [...] specimen and this will be requested from [facility]. Given his history of rheumatoid arthritis on [...] at that time. She lives in the [facility] and will be available by [facility] for his follow-up appointment, hopefully within [...] 2. Discussion of adjuvant options 11/24/2023 at [facility]. Negative BRAF status. PET/CT negative for [...] and go over labs and extremity Ultrasound. [facility] Medical History Medical History Medicare annual wellness visit, subsequent Thrombocytopenia Ischemic cardiomyopathy Echo: [id number]%, RACHAEL, RV dilated, RVSP 72, bioprosthetic MV [...] signed by MD Adilene Weinberg> 10/06/24 1322 [facility] Work Phone: Reason for referral (narrative)* Consultation (Routine) - Authorized Specialty Diagnoses / Procedures Referred By Faviola heredia Referred To Contact Hematology and Oncology Diagnoses Malignant melanoma of forehead (CMS/[place]) [place] [address] [facility] Department [place] [address] Adilene Weinberg MD [address] [place] [address] Referral ID Status Reason Start Date Expiration Date Visits Requested Visits Authorized [id number] Authorized Specialty Services Required 11/08/2023 11/07/2024 1 1 * Imaging (Routine) - Pending Review Specialty Diagnoses / Procedures Referred By Contbarrie t Referred To Contact Radiology Diagnoses Malignant melanoma of forehead (CMS/HCC) Procedures NM PET [place] [address] [facility] Department [place] [address] Referral ID Status Reason Start Date Expiration Date Visits Requested Visits Authorized [id number] Pending Review Perform Procedure 11/08/2023 11/07/2024 [address] [facility] Work Phone: Reason for referral (narrative)No reason for referral [facility] Work Phone: Refqmo for referral (narrative)* Unlisted Procedure Code (Routine) - New Request Specialty Diagnoses / Procedures Referred By Contac t Referred To Contact Procedures DVT/VTE RISK ASSESSMENT Natasha Hurtado PA-C [address] [place] [phone] Phone: tel: fax: Referral ID Status Reason Start Date Expiration Date V isits Requested Visits Authorized [id number] New Request 06/10/2025 07/05/2026 1 1 * Unlisted Procedure Code (Routine) - New Request Specialty Diagnoses / Procedures Referred By Contac t Referred To Contact Procedures NO MECHANICAL DVT PROPHYLAXIS Siria Wolfe APRN-CNP [address] [place] [address] Phone: tel: fax: Referral ID Status Reason Start Date Expiration Date V isits Requested Visits Authorized [id number] New Request 06/10/2025 07/05/2026 1 1 * Unlisted Procedure Code (Routine) - New Request Specialty Diagnoses / Procedures Referred By Contac t Referred To Contact Procedures LOW RISK - NO PHARMACOLOGICAL DVT PROPHYLAXIS Siria Wolfe APRN-CNP [address] [place] [address] Phone: tel: fax: Referral ID Status Reason Start Date Expiration Date V isits Requested Visits Authorized [id number] New Request 06/10/2025 07/05/2026 1 1 * Unlisted Procedure Code (Routine) - New Request Specialty Diagnoses / Procedures Referred By Contac t Referred To Contact Procedures DVT/VTE RISK ASSESSMENT Siria Wolfe APRN-CNP [address] [place] [address] Phone: tel: fax: Referral ID Status Reason Start Date Expiration Date V isits Requested Visits Authorized [id number] New Request 06/10/2025 07/05/2026 1 1 * Radiology (Emergency) - New Request Specialty Diagnoses / Procedures Referred By Contac t Referred To Contact Procedures ECG ECG Natasha Hurtado PA-C [address] [place] [phone] Phone: tel: fax: Referral ID Status Reason Start Date Expiration Date V isits Requested Visits Authorized [id number] New Request 06/09/2025 07/04/2026 1 1 [facility] for visit Narrative* MRI/CAT Scan (Emergency) - New Request Specialty Diagnoses / Procedures Referred By Contac t Referred To Contact Diagnoses Metastatic melanoma Procedures CT HEAD WITH AND WITHOUT CONTRAST CHG CT HEAD/BRAIN W/O & W/CONTRAST MATERIAL Duglas Walsh MD, PhD [address] [address] Phone: tel: fax: Referral ID Status Reason Start Date Expiration Date V isits Requested Visits Authorized [id number] New Request 05/10/2025 06/04/2026 1 1 [facility]Cert Specialty Diagnoses / Procedures Referred By Faviola t Referred To Contact Diagnoses Nausea (Hypomagnesemia) Vomiting Ludwig Hawkins MD [address] [place] [address] Phone: tel: fax: [facility] [address] [place] [address] Referral ID Status Reason Start Date Expiration Date Visits Re quested Visits Authorized [id number] 1 1 [facility] Summary Purpose Family History No Family History [...] Documents on File Type Date Recorded 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 [facility] Power of Account Services Specialist 01/21/2010 Date Activated Date Inactivated Comments 06/10/2025 5:41 PM Date Activated Date Inactivated Comments 06/10/2025 12:53 PM 06/10/2025 5:41 PM Documents on File Type Date Recorded 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 Expl [facility] Power of Account Services Specialist 01/21/2010 Chief Complaint and Reason for Visit [...] 2024 8:58am ASHD (arteriosclerotic heart disease) [facility] 2024 8:58am Atrial fibrillation November 20, 2024 [...] 20, 2024 8:58am ASHD (arteriosclerotic heart disease) [facility] 2024 8:58am Atrial fibrillation November 20, 2024 [...] (CMS/HCC) Procedures [place] [address] [address] Department [place] [address] Referral ID Status Reason Start Date Expiration Date Visits Requested Visits Authorized [id number] Pending Review Perform Procedure 10/08/2023 10/07/2024 2 2 Additional Source Comments (unrecognized sect ion and content) No Status Records FoundNo Status Records FoundNo Status Records FoundNo Status Records FoundNo Status Records FoundNo Status Records FoundNo Status Records FoundNo Status Records FoundNo Status Records FoundNo Status Records FoundNo Status Records Found INFORMATION SOURCE (unrecogn ized section and content) DATE CREATED AUTHOR 09/16/2021 [facility] DATE CREATED AUTHOR AUTHOR'S ORGANIZ ATION 03/12/2023 [facility] pital DATE CREATED AUTHOR AUTHOR'S ORGANIZ ATION 02/18/2024 [facility] Special[facility] EPIC DATE CREATED AUTHOR AUTHOR'S ORGANIZ ATION 04/20/2025 [facility] DATE CREATED AUTHOR AUTHOR'S ORGANIZ ATION 04/22/2025 [facility] DATE CREATED AUTHOR AUTHOR'S ORGANIZ ATION 04/22/2025 [facility] DATE CREATED AUTHOR AUTHOR'S ORGANIZ ATION 04/24/2025 [facility] DATE CREATED AUTHOR AUTHOR'S ORGANIZ ATION 05/12/2025 [facility] DATE CREATED AUTHOR AUTHOR'S ORGANIZ ATION 05/20/2025 [facility] DATE CREATED AUTHOR AUTHOR'S ORGANIZ ATION 06/19/2025 [place] DATE CREATED AUTHOR AUTHOR'S ORGANIZ ATION 06/23/2025 [facility] REASON FOR VISIT (unrecogniz ed section and content) Reason Comments New Patient Visit Specialty Diagnoses / Procedures Referred By Faviola t Referred To Contact Diagnoses 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) [C43.39] Procedures DC EXCISION MALIGNANT LESION F/E/E/N/L >4.0 CM DC DERMAL AUTOGRAFT F/S/N/H/F/G/M/D GT 1ST [address] GUIDANCE NEEDLE PLACEMENT ( sln inj @ 7:00 am ) Excision Lesion Skin Head/Neck Excision Full Thickness Skin Graft Torso Biopsy Lymph Node Head/[place] [address] [facility] Department [place] [address] [place] [address] [place] [address] Referral ID Status Reason Start Date Expiration Date Visits Re quested Visits Authorized [id number] 1 1 Reason Comments Dermatochalasis Evaluation Reason [...] scalp and neck Adilene Weinberg MD [address] [place] [address] Phone: tel: fax: [facility] [address] [place] [address] Referral ID Status Reason Start Date Expiration Date V isits Requested Visits Authorized [id number] New Request 04/27/2025 05/22/2026 1 1 Reason Comments Immunotherapy Specialty Diagnoses / Procedures Referred By Contac t Referred To Contact Diagnoses Melanoma of scalp Duglas Walsh MD, PhD [address] [address] Phone: tel: fax: Duglas Walsh MD, PhD [address] [address] Phone: tel: fax: Referral ID Status Reason Start Date Expiration Date V isits Requested Visits Authorized [id number] Authorized 05/21/2025 199 199 Reason Comments Melanoma [...] Status: Active Member Role Status Dates Uma D ePaz DO Primary Care Provide r, Attending Provider Active Start: April 20, 2024 Team Status: Inactive Member Role Status Dates Uma De Paz DO Primary Care Provider Active Michele Arteaga MD Attending Provider Active Team Status: Inactive Member Role Status Dates Uma De Paz DO Primary Care Provider Active Jose R Cruz MD Attending Provider Active Job Molder Relationship Specialty Start Date End Date Uma De Paz DO [address] [place] [address] [place] [address] PCP - General Internal Medicine 10/28/23 Job Molder Relationship Specialty Start Date End Date Uma De Paz DO [address] [place] [address] [place] [address] PCP - General Internal Medicine 10/28/23 Job Molder Relationship Specialty Start Date End Date Uma De Paz DO [address] [place] [address] [place] [address] PCP - General Internal Medicine 10/28/23 Team [...] December 27, 2023 End: December 27, 2023 Job Molder Relationship Specialty Start Date End Date Uma De Paz DO [address] [place] [address] [place] [address] PCP - General Internal Medicine 10/28/23 Team Status: Inactive Member Role Status Dates Uma De Paz DO Primary Care Provide r, Attending Provider Active Start: January 19, 2024 End: January 19, 2024 Job Molder Relationship Specialty Start Date End Date Uma De Paz DO [address] [facility] [place], [place] [id number] PCP - General Internal Medicine 10/28/23 Team [...] Provider Active S tart: June 30, 2024 Job Molder Relationship Specialty Start Date End Date Uma De Paz DO PCP - General Internal Medicine 10/28/23 Job Molder Relationship Specialty Start Date End Date Uma De Paz MD [address] [place] [address] PCP - General Internal Medicine 11/04/23 Tereso Ram OD [address] [phone] Referring Physician Optometry 02/16/24 Job Molder Relationship Specialty Start Date End Date Uma De Paz MD [address] [place] [address] PCP - General Internal Medicine 11/04/23 Tereso Ram OD [address] [place], [place] [phone] Referring Physician Optometry 02/16/24 Job Molder Relationship Specialty Start Date End Date Uma De Paz MD [address] [place] [address] PCP - General Internal Medicine 11/04/23 Tereso Ram OD [address] [place] [address] Referring Physician Optometry 02/16/24 Job Molder Relationship Specialty Start Date End Date Uma De Paz MD [address] [place] [address] PCP - General Internal Medicine 11/04/23 Tereso Ram OD [address] [place] [address] Referring Physician Optometry 02/16/24 Team Status: Inactive [...] January 23, 2025 End: January 23, 2025 Job Molder Relationship Specialty Start Date End Date Uma De Paz DO PCP - General Internal Medicine 11/04/23 Tereso Ram OD [address] [phone] Referring Physician Optometry 02/16/24 Job Molder Relationship Specialty Start Date End Date Uma De Paz DO PCP - General Internal Medicine 11/04/23 Tereso Ram, OD [address] [place] [address] Referring Physician Optometry 02/16/24 Team Status: Inactive [...] January 16, 2025 End: January 16, 2025 Job Molder Relationship Specialty Start Date End Date Uma De Paz DO PCP - General Internal Medicine 11/04/23 Tereso Ram OD [address] [place] [address] Referring Physician Optometry 02/16/24 Job Molder Relationship Specialty Start Date End Date Uma De Paz DO PCP - General Internal Medicine 10/28/23 Job Molder Relationship Specialty Start Date End Date Uma De Paz DO PCP - General Internal Medicine 08/11/19 Terrence Renteria MD Tire Retreader Cardiovascular Disease 07/12/19 Job Molder Relationship Specialty Start Date End Date Uma De Paz DO PCP - General Internal Medicine 08/11/19 Terrence Renteria MD Tire Retreader Cardiovascular Disease 07/12/19 Duglas Walsh MD, PhD [address] [address] Oncologist Medical Oncology 05/02/25 Dylon Kate MD [address] [place] [address] [place] [address] Interventional Cardiology 05/07/25 [place] [address] [address] Department [place] [address] Otolaryngology 05/07/25 Adilene Weinberg MD [address] [place] [address] Hematology 05/07/25 Job Molder Relationship Specialty Start Date End Date Uma De Paz PCP - General Internal Medicine 08/11/19 Terrence Renteria MD Tire Retreader Cardiovascular Disease 07/12/19 Duglas Walsh MD, PhD [facility] [address] [place] [address] Oncologist Medical Oncology 05/02/25 Dylon Kate MD [address] [facility] [place] [address] Interventional Cardiology 05/07/25 [place] [address] [address] [facility] Department [place] [address] Otolaryngology 05/07/25 Adilene Weinberg MD [address] [place] [address] Hematology 05/07/25 Renee Roque DO [address] [place] [address] Dermatology 05/10/25 Cristela Winter MD [address] [place] [address] Urology 05/10/25 Job Molder Relationship Specialty Start Date End Date Uma De Paz DO PCP - General Internal Medicine 08/11/19 Terrence Renteria MD Tire Retreader Cardiovascular Disease 07/12/19 Duglas Walsh MD, PhD [address] [place] [address] [place] [address] Oncologist Medical Oncology 05/02/25 Dylon Kate MD [address] [place] [address] Interventional Cardiology 05/07/25 [place] [address] [address] Department [place] [address] Otolaryngology 05/07/25 Adilene Weinberg MD [address] [place] [address] Hematology 05/07/25 Renee Roque DO [address] [place] [address] Dermatology 05/10/25 Cristela Winter MD [address] [place] [address] Urology 05/10/25 Job Molder Relationship Specialty Start Date End Date Uma De Paz DO PCP - General Internal Medicine 08/11/19 Terrence Renteria MD Tire Retreader Cardiovascular Disease 07/12/19 Duglas Walsh MD, PhD 2049 [facility] 4th [place] [address] Oncologist Medical Oncology 05/02/25 Dylon Kate MD [address] [facility] [address] [place] [address] Interventional Cardiology 05/07/25 [place] [address] [address] Department [place] [address] Otolaryngology 05/07/25 Adilene Weinberg MD [address] [place] [address] Hematology 05/07/25 Renee Roque DO [address] [place] [address] Dermatology 05/10/25 Cristela Winter MD [address] [place] [address] Urology 05/10/25 Job Molder Relationship Specialty Start Date End Date Uma De Paz DO PCP - General Internal Medicine 08/11/19 Terrence Renteria MD Tire Retreader Cardiovascular Disease 07/12/19 Duglas Walsh MD, PhD [address] [facility] [address] [place] [phone] Oncologist Medical Oncology 05/02/25 Dylon Kate MD 5[address] [facility] [address] [place] [address] Interventional Cardiology 05/07/25 [place] [address] [address] [facility] Department [place] [address] Otolaryngology 05/07/25 Adilene Weinberg MD [address] [place] [address] Hematology 05/07/25 Renee Roque DO [address] [facility] [address] [place] [address] Dermatology 05/10/25 Cristela Winter MD [address] [place] [address] Urology 05/10/25 Job Molder Relationship Specialty Start Date End Date Uma De Paz DO PCP - General Internal Medicine 08/11/19 Terrence Renteria MD Tire Retreader Cardiovascular Disease 07/12/19 Duglas Walsh MD, PhD Oncologist Medical Oncology 05/02/25 Dylon Kate MD [address] [facility] [place] [address] Interventional Cardiology 05/07/25 [place] [address] [address] [facility] Department [place] [address] Otolaryngology 05/07/25 Adilene Weinberg MD [address] [place] [address] Hematology 05/07/25 Renee Roque DO [address] [place] [address] Dermatology 05/10/25 Cristela Winter MD [address] [place] [address] Urology 05/10/25 Martita Tapia LISW Motor Vehicle Inspector Social Work 05/14/25 Job Molder Relationship Specialty Start Date End Date Uma De Paz DO PCP - General Internal Medicine 08/11/19 Terrence Renteria MD Tire Retreader Cardiovascular Disease 07/12/19 Duglas Walsh MD, PhD Oncologist Medical Oncology 05/02/25 Dylon Kate MD [address] [place] [address] Interventional Cardiology 05/07/25 [place] [address] [address] [facility] Department of Otolaryngology [place] [phone] Otolaryngology 05/07/25 Adilene Weinberg MD [address] [place] [address] Hematology 05/07/25 Renee Roque DO [address] [place] [address] Dermatology 05/10/25 Cristela Winter MD [address] [place] [address] Urology 05/10/25 Martita Tapia LISW Motor Vehicle Inspector Social Work 05/14/25 Job Molder Relationship Specialty Start Date End Date Uma De Paz DO PCP - General Internal Medicine 08/11/19 Terrence Renteria MD Tire Retreader Cardiovascular Disease 07/12/19 Duglas Walsh MD, PhD Oncologist Medical Oncology 05/02/25 Dylon Kate MD [address] [facility] 1 [place] [address] Interventional Cardiology 05/07/25 [place] [address] Department [place] [address] Otolaryngology 05/07/25 Adilene Weinberg MD [address] [place] [address] Hematology 05/07/25 Renee Roque DO [address] [place] [address] Dermatology 05/10/25 Cristela Winter MD [address] [place] [address] Urology 05/10/25 Martita Tapia LISW Motor Vehicle Inspector Social Work 05/14/25 Job Molder Relationship Specialty Start Date End Date Zandra DO Uma PCP - General Internal Medicine 08/11/19 Terrence Renteria MD Tire Retreader Cardiovascular Disease 07/12/19 Duglas Walsh MD, PhD Oncologist Medical Oncology 05/02/25 Dylon Kate MD 5757 [facility] [address] [place] [address] Interventional Cardiology 05/07/25 [place] [address] [address] Department of Otolaryngology [place] [phone] Otolaryngology 05/07/25 Adilene Weinberg MD [address] [place] [address] Hematology 05/07/25 Renee Roque DO [address] [place] [address] Dermatology 05/10/25 Cristela Winter MD [address] [place] [address] Urology 05/10/25 Martita Tapia LISW Motor Vehicle Inspector Social Work 05/14/25 06/06/25 Job Molder Relationship Specialty Start Date End Date Uma De Paz DO PCP - General Internal Medicine 08/11/19 Terrence Renteria MD Tire Retreader Cardiovascular Disease 07/12/19 Duglas Walsh MD, PhD Oncologist Medical Oncology 05/02/25 Dylon Kate MD [address] [place] [address] Interventional Cardiology 05/07/25 [place] [address] [address] Department [place] [address] Otolaryngology 05/07/25 Adilene Weinberg MD [address] [place] [address] Hematology 05/07/25 Renee Roque DO [address] [place] [address] Dermatology 05/10/25 Cristela Winter MD [address] [place] [address] Urology 05/10/25 Job Molder Relationship Specialty Start Date End Date Uma De Paz DO PCP - General Internal Medicine 08/11/19 Terrence Renteria MD Tire Retreader Cardiovascular Disease 07/12/19 Duglas Walsh MD, PhD Oncologist Medical Oncology 05/02/25 Dylon Kate MD [address] [facility] [place] [address] Interventional Cardiology 05/07/25 [place] [address] [address] Department [place] [address] Otolaryngology 05/07/25 Adilene Weinberg MD [address] [place] [address] Hematology 05/07/25 BedRenee horvath DO [address] [place] [address] Dermatology 05/10/25 Cristela Winter MD [address] [facility] [place] [address] Urology 05/10/25 Job Molder Relationship Specialty Start Date End Date ZandraUmaDO PCP - General Internal Medicine 08/11/19 Terrence Renteria MD Tire Retreader Cardiovascular Disease 07/12/19 Duglas Walsh MD, PhD Oncologist Medical Oncology 05/02/25 Dylon Kate MD [address] [place] [address] Interventional Cardiology 05/07/25 [place] [address] [address] [facility] Department [place] [address] Otolaryngology 05/07/25 Adilene Weinberg MD [address] [place] [address] Hematology 05/07/25 BedRenee horvath DO [address] [place] [address] Dermatology 05/10/25 Cristela Winter MD [address] [place] [address] Urology 05/10/25 Job Molder Relationship Specialty Start Date End Date Uma De Paz DO PCP - General Internal Medicine 08/11/19 Terrence Renteria MD Tire Retreader Cardiovascular Disease 07/12/19 Duglas Walsh MD, PhD Oncologist Medical Oncology 05/02/25 Dylon Kate MD [address] [place] [address] Interventional Cardiology 05/07/25 [place] [address] [address] [facility] Department [place] [address] Otolaryngology 05/07/25 Adilene Weinberg MD [address] [place] [address] Hematology 05/07/25 Renee Roque DO [address] [place] [address] Dermatology 05/10/25 Cristela Winter MD [address] [place] [address] Urology 05/10/25 Job Molder Relationship Specialty Start Date End Date Uma De Paz DO PCP - General Internal Medicine 08/11/19 Terrence Renteria MD Tire Retreader Cardiovascular Disease 07/12/19 Duglas Walsh MD, PhD Oncologist Medical Oncology 05/02/25 Dylon Kate MD [address] [facility] [address] [place] [address] Interventional Cardiology 05/07/25 [place] [address] [address] [facility] Department [place] [address] Otolaryngology 05/07/25 Adilene Weinberg MD [address] [place] [address] Hematology 05/07/25 Renee Roque DO [address] [place] [address] Dermatology 05/10/25 Cristela Winter MD [address] [place] [address] Urology 05/10/25 Goals (unrecognized section [...] 100 mL/hr)1452 (Rate/Dose Verify - Provider: Caryl Watosn RN)1523 (Stopped - Provider: Caryl Watson RN) [...] or prosecute any alcohol or drug abuse patient.[facility] FOR RECORDS PERTAINING TO PATIENTS WHO ARE [...] BE BASED ON THE PRIMARY CLINICAL RECORDS. [facility] [employer] [facility]. provides no warranty or guarantee of the accuracy or completeness of information in this document.
[2025-06-24 17:27] LABS: INR 1.66; Prothrombin Time 16.7 sec (9.0-11.6)
[2025-06-24] MEDS: POTASSIUM CHLORIDE 10 MEQ ER TABLET 30 MEQ PO (17:27)
[2025-06-24] MEDS: FUROSEMIDE 40 MG/4 ML VIAL IVP (17:28)
[2025-06-24 18:16] LABS: Glucose Urine UA NEGATIVE (NEGATIVE)
[2025-06-24] MEDS: NITROGLYCERIN 0.2 MG/HR PATCH.TD24 1 PATCH TD (18:16)
[2025-06-24] MEDS: WARFARIN SODIUM 5 MG TABLET 7.5 MG PO (18:16)
[2025-06-24 18:26] LABS: Cast Seen? SEEN #/LPF (NONE SEEN); Crystals Seen? None Seen #/HPF (None Seen); Urine Culture Indicated YES-FRMC
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
[2025-06-25] MEDS: DIAZEPAM 10 MG/2 ML SYRINGE 2.5 MG IV (00:54)
--- NOTE | 2025-06-25 03:40 | PC.NURSE ---
0340: Pt is still combative,jumping out of bed. Pt is refusing to wear tele and keeps ripping it off. Nurses tried to reorient pt but he was unable to re direct.
[2025-06-25 04:00] VITALS: BP 162/62; PULSE 63; O2SAT 93
[2025-06-25] MEDS: REMOVE PATCH 1 PATCH TOPICAL (05:06)
[2025-06-25 05:38] LABS: Hemoglobin 7.2 g/dL (14.0-18.0); Immature Granulocytes Abs Auto 0.10 10^3/uL (0.00-0.03); Immature Granulocytes Pct Auto 1.1 % (0.0-0.5); Lymphocytes Absolute Auto 0.6 10^3/uL (1.2-3.8); Mean Corpuscular HGB Conc 31.2 g/dL (29.9-35.2); Mean Corpuscular Hemoglobin 30.0 pg (25.9-34.0); Mean Corpuscular Volume 96.3 fL (80.0-94.0); Platelet Count 230 10^3/uL (150-450); Red Blood Count 2.40 10^6/uL (4.70-6.10); White Blood Count 9.3 10^3/uL (4.0-11.0)
[2025-06-25 06:04] LABS: INR 2.12; Prothrombin Time 20.9 sec (9.0-11.6)
[2025-06-25 06:08] LABS: Iron 33.0 ug/dL (65.0-175.0); Percent Iron Saturation 20.8 %; Total Iron Binding Capacity 159.0 ug/dL (250.0-450.0)
[2025-06-25 06:19] LABS: Alanine Aminotransferase 20 U/L (16-63); Albumin Globulin Ratio 0.8; Albumin Level 2.8 g/dL (3.4-5.0); Alkaline Phosphatase 85 U/L (46-116); Anion Gap 13.7; Aspartate Amino Transferase 21 U/L (15-37); Blood Urea Nitrogen 27.0 mg/dL (7.0-18.0); Calcium 9.7 mg/dL (8.5-10.1); Carbon Dioxide 28.8 mmol/L (21.0-32.0); Chloride 109 mmol/L (98-107); Cholesterol 122 mg/dL (<=200); Estimated GFR (African America >60 (>=60 mL/min/1.73m^2); Estimated GFR (Non-African Ame >60 (>=60 mL/min/1.73m^2); Globulin 3.4 g/dL; Glucose 90 mg/dL (74-106); HDL Cholesterol 35 mg/dL (40-60); Magnesium 1.6 mg/dL (1.8-2.4); Potassium 3.5 mmol/L (3.5-5.1); Sodium 148 mmol/L (136-145); Thyroid Stimulating Hormone <0.007 uIU/mL (0.358-3.740); Total Protein 6.2 g/dL (6.4-8.2); Triglycerides 59 mg/dL (<=150); VLDL CHOLESTEROL 11.8 mg/dL
[2025-06-25 06:21] LABS: Hematocrit 23.1 % (42.0-54.0)
[2025-06-25 06:24] LABS: Ferritin 569.0 ng/mL (26.0-388.0); Folate 7.60 ng/mL (8.60-58.90)
[2025-06-25 07:35] VITALS: BP 164/70; PULSE 61; TEMP 36.3; O2SAT 95
--- NOTE | 2025-06-25 08:10 | CM.NOTE ---
Rounds made with Dr. Jarvis, discussed with pt's daughter plan of care and reason for admission. Talked with daughter regarding prognosis and Hospice care. Pt at this time is skilled at [facility], discussed options with daughter if pt would be unable to go back to skilled.
--- NOTE | 2025-06-25 09:42 | SWNOTE1 ---
MADISYN reached out to Marie and Yves at [facility] to find if pt is there skilled. Yves replied back and pt is from [facility] skilled.
[2025-06-25] MEDS: FOLIC ACID 50 MG/10 ML VIAL IVP (09:54)
[2025-06-25] MEDS: MAGNESIUM SULFATE IN WATER 2 GM/50 ML PREMIX IV (09:55)
--- NOTE | 2025-06-25 10:32 | SWNOTE1 ---
Important Message from [employer] reviewed and discussed with patient's daughter, Tricia. Tricia verbalized understanding and signed the form. Original placed in pt's room and copy placed in patient?s chart.
--- NOTE | 2025-06-25 10:33 | SWNOTE1 ---
MADISYN met with pt's daughter, Tricia. MADISYN spoke with her about discharge planning. Pt was in room sleeping. Pt is from [facility] skilled at this time. Discussed possibility of pt needing hospice services at discharge. MADISYN discussed hospice, manager intermediate care, SNF, and financial end of life care with hospice services. Daughter has decided to see how pt does within the next 24-48 hours to determine discharge plan. She is open to speaking with hospice services and she would like [facility], as her mother had them in past. She is aware that manager intermediate care at [facility] would be private pay with hospice. Tricia will be calling [facility] in regards to bed hold. MADISYN to send referral to [facility]. Daughter plans on going back to work tomorrow and would like to meet with [facility] today, MADISYN to request meeting with hospice today. Referral sent to [facility]. Referral included face sheet, ED note, H&P, provider notes, case management report, nursing notes, diagnostic imaging, med list, DNR, and Hospice order.
--- NOTE | 2025-06-25 11:45 | PM.HP ---
HPI H&P: HPI History of Present Illness Chief complaint: COUGH, CHF Narrative: Mr. Hannon is an 89-year-old gentleman with a known diagnosis of metastatic melanoma. Patient had received a course of immunotherapy a few weeks ago which subsequently landed him in a hospital in [place] with with fatigue, weakness, loss of appetite and failure to thrive. Patient was discharged from the hospital to SNF facility at [facility]. Patient did okay for a few days then started having progressive shortness of breath. He was sent to the emergency room. He was found to have elevated BNP and evidence of heart failure on chest x-ray. Elevated troponin. Change in mental status. No fever or chills. No abdominal pain. His daughter stated that she wants basic medical care. She does not want him to be transferred to [facility] or somewhere else for cardiac or procedure. Overnight the patient developed acute delirium, combativeness, restlessness. Opioid HPI Opioid Management Most Recent Pain and Opioid Data: Last Pain Assessment 06/24/25, 17:59 Last ORT Total Score 0 06/24/25, 16:47 Last ORT Risk Category Low Risk 06/24/25, 16:47 Review of Systems ROS Status of ROS 10 or more systems reviewed and unremarkable except as noted in history and below [facility] Medical History (Updated 06/25/25 @ 11:49 by Sade Jarvis MD) Pacemaker ?Z95.0 - Presence of cardiac pacemaker (ICD-10) Social History Highest level of school completed/degree received: high school graduate Little interest or pleasure in doing things: not at all Feeling down, depressed, or hopeless: not at all Meds Home Medications and Allergies Home Medications ?Medication ?Instructions ?Recorded ?Confirmed ?Type acetaminophen 650 mg 650 mg PO Q6H PRN fever or pain 06/24/25 06/25/25 History tablet,extended release (8 Hour Pain Reliever) amlodipine 2.5 mg tablet 2.5 mg PO DAILY 06/24/25 06/25/25 History calcium 500 mg tablet 500 mg PO DAILY 06/24/25 06/25/25 History ferrous sulfate 325 mg (65 mg 325 mg PO DAILY 06/24/25 06/25/25 History iron) tablet (FeroSul) fexofenadine 180 mg tablet 180 mg PO DAILY 06/24/25 06/25/25 History (Ramona Allergy) finasteride 5 mg tablet 5 mg PO DAILY 06/24/25 06/25/25 History hydroxychloroquine 200 mg tablet 200 mg PO SUTUTHSA@0900 06/24/25 06/25/25 History levothyroxine 25 mcg tablet 25 mcg PO .acb 06/24/25 06/25/25 History losartan 50 mg tablet 50 mg PO DAILY 06/24/25 06/25/25 History metoprolol succinate 50 mg 75 mg PO DAILY 06/24/25 06/25/25 History tablet,extended release 24 hr mirtazapine 15 mg tablet 7.5 mg PO QPM 06/24/25 06/25/25 History ondansetron HCl 4 mg tablet 4 mg PO Q8H PRN nausea and vomiting 06/24/25 06/25/25 History sennosides 8.6 mg tablet (Laxative 8.6 mg PO .QHS 06/24/25 06/25/25 History (sennosides)) spironolactone 25 mg tablet 25 mg PO DAILY 06/24/25 06/25/25 History tamsulosin 0.4 mg capsule (Flomax) 0.4 mg PO DAILY 06/24/25 06/25/25 History warfarin 5 mg tablet 5 mg PO DAILY 06/24/25 06/25/25 History cholecalciferol (vitamin D3) 50 4,000 unit PO DAILY 06/25/25 06/25/25 History mcg (2,000 unit) tablet (D3 DOTS) cyanocobalamin (vitamin B-12) 1,000 mcg PO DAILY 06/25/25 06/25/25 History 1,000 mcg tablet (Vitamin B-12) furosemide 40 mg tablet (Lasix) 40 mg PO .QOD 06/25/25 06/25/25 History hydroxychloroquine 200 mg tablet 200 mg PO MOWEFR@0900,2100 06/25/25 06/25/25 History nitroglycerin 0.4 mg sublingual 0.4 mg sublingual Q5M PRN chest 06/25/25 06/25/25 History tablet pain nivolumab 240 [id number] 40 ml IV Q28D 06/25/25 06/25/25 History 80 mg/20 mL intravenous solution (Opdualag) polyethylene glycol 3350 17 gram 17 g PO DAILY 06/25/25 06/25/25 History oral powder packet (ClearLax) Allergies Allergy/AdvReac Type Severity Reaction Status Date / Time latex Allergy Unknown Verified 06/24/25 10:40 Penicillins Allergy Unknown Verified 06/24/25 10:40 Exam Narrative Exam Narrative: Patient is lying in bed. Cachectic and frail in appearance. Bitemporal muscle wasting. Upper and lower extremities muscle wasting and atrophy which is significant enough. Osteoarthritis deformities. Chest is clear, heart is regular. Abdomen is soft, nontender. Patient had change in mental status. Able to answer yes or no questions. Able to follow simple command. Unable to engage in any complex conversation whatsoever. Constitutional Vital Signs, click to edit/add: Last Vital Signs Temp 97.4 F L 06/25/25 07:35 Pulse 61 06/25/25 07:35 Resp 18 06/25/25 08:11 BP 164/70 H 06/25/25 07:35 Pulse Ox 95 06/25/25 07:35 O2 Del Method Room Air 06/25/25 07:35 O2 Flow Rate 2 06/24/25 15:32 Results Labs Labs: Short CBC 06/25/25 Range/Units 05:03 WBC 9.3 (4.0-11.0) 10^3/uL Hgb 7.2 L (14.0-18.0) g/dL Hct 23.1 L* (42.0-54.0) % Plt Count 230 (150-450) 10^3/uL BMP 06/25/25 05:03 Sodium 148 H Potassium 3.5 Chloride 109 H Carbon Dioxide 28.8 BUN 27.0 H Creatinine 1.15 Glucose 90 Calcium 9.7 Liver Function 06/25/25 Range/Units 05:03 Total Bilirubin 0.9 (0.2-1.0) mg/dL AST 21 (15-37) U/L ALT 20 (16-63) U/L Alkaline Phosphatase 85 (46-116) U/L Albumin 2.8 L (3.4-5.0) g/dL Urine 06/24/25 Range/Units 17:00 Urine Color Yellow (YELLOW) Urine Clarity Clear (CLEAR) Urine pH 5.5 (5.0-9.0) Ur Specific [place] 1.020 (1.005-1.025) Urine Protein 30 A (NEG/TRACE) mg/dL Urine Glucose (UA) Negative (NEGATIVE) mg/dL Assessment and Plan Assessment and Plan (1) Congestive heart failure: (2) NSTEMI (non-ST elevated myocardial infarction): (3) Acute delirium: (4) Metastatic melanoma: (5) Anemia: (6) Hypomagnesemia: (7) Hypothyroidism: Plan NSTEMI Acute/subacute diastolic and probable systolic heart failure Hypertensive urgency Daughter requested the basic cardiac care. She does not want him to be transferred to [facility] or anywhere else for cardiac cath. I started patient on aspirin and beta-ekaterina. I also started him on nitrate. Patient not having any chest pain He is already on anticoagulation in the form of Coumadin. Hypomagnesemia Magnesium supplementation Acute delirium, acute encephalopathy CAT scan of the brain is negative for acute intracranial process. Conceivably patient could have a brain mets despite negative CT. Started him on a combination of medication to control his agitation and restlessness. Severe cachexia, frailty, muscle wasting and failure to thrive Severe protein calorie mentation I would start patient on protein oral supplementation. Unfortunately patient has metastatic cancer and his nutritional status will continue to decline. Metastatic melanoma. Patient had received 1 dose of immunotherapy several weeks ago which had caused him to have significant side effect landing him in hospital acute care for several days. His daughter stated that oncologist stated that patient may not qualify for additional treatment. Functional disability Patient is unable to take care of his basic needs. ECOG score is 4. PPS 30%. Fast score 7D. Goals of care discussion and advance care planning. I spent about 25 minutes discussing this with his daughter who is the only child and power of district attorney. We discussed his poor prognosis, condition, status and treatment plan. I explained in basic terms the difference between aggressive and comfort care approach. I explained in simple terms the difference between CCA and CC. I explained end-of-life care and criteria and qualification for hospice. His daughter is in agreement to focus on comfort care. She gave me permission to change his CODE STATUS to DNR CC. She is interested in hospice care. The plan is to see if patient with improved over the next few days then we will discharge him back to skilled care and enroll into the hospice program after he completes his skilled care. If patient does not show any meaningful improvement over the next day or 2 the plan is to seek hospice enrollment. Urinary Catheter Management Urinary Catheter Management Urethral: Cath placed during this visit: yes Urethral indwelling: No Insertion date: 06/24/25 Insertion time: 14:15
[2025-06-25 12:00] VITALS: BP 160/62; PULSE 85; TEMP 36.5; O2SAT 94
--- NOTE | 2025-06-25 12:18 | SWNOTE1 ---
SW faxed H&P and hospice order to [facility]. SW called [facility] and they have received referral and are working on it at this time.
[2025-06-25] MEDS: ASPIRIN 81 MG TAB.CHEW PO (13:19)
[2025-06-25] MEDS: QUETIAPINE FUMARATE 25 MG TABLET PO (13:19)
--- NOTE | 2025-06-25 13:56 | DIETREC ---
Recommend 237 mL Ensure Original TID at mealtimes.
[2025-06-25 14:05] LABS: Hematocrit 24.1 % (42.0-54.0); Hemoglobin 7.7 g/dL (14.0-18.0)
--- NOTE | 2025-06-25 14:13 | SWNOTE1 ---
SW called [facility] and spoke to referral dept. They voiced a nurse will be coming between 2-2:30. SW notified pt's nurse.
--- NOTE | 2025-06-25 15:37 | SWNOTE1 ---
MADISYN spoke to Ilana from [facility]. She voiced family would like to see how he does in the next 24-48 hours and then make a decision in regards to skilled versus fpc. Ilana voiced he does qualify for hospice, not inpt at this time. Orlin is available at any time if there is a change in condition. Nurse is aware as well. SW to keep [facility] updated. MADISYN faxed updates to [facility], including code status, hospice order, physician notes, labs, vitals, and nursing notes.
[2025-06-25 16:47] VITALS: BP 172/66; PULSE 61; TEMP 36.7; O2SAT 95
[2025-06-25] MEDS: WARFARIN SODIUM 5 MG TABLET PO (16:55)
[2025-06-25] MEDS: HYDRALAZINE HCL 20 MG/ML VIAL 10 MG IVP (16:55)
[2025-06-25] MEDS: ZIPRASIDONE MESYLATE 20 MG VIAL 10 MG IM (17:27)
[2025-06-25 22:00] LABS: Hematocrit 26.0 % (42.0-54.0); Hemoglobin 8.3 g/dL (14.0-18.0)
[2025-06-25 23:42] VITALS: BP 145/48; PULSE 60; O2SAT 92
[2025-06-26] MEDS: WATER FOR INJECTION, STERILE 20 ML VIAL INJ (03:43)
[2025-06-26] MEDS: ZIPRASIDONE MESYLATE 20 MG VIAL 10 MG IM (03:43)
[2025-06-26 04:12] LABS: Vitamin B12 >2000 pg/mL (232-1245)
[2025-06-26 05:59] LABS: Hematocrit 25.0 % (42.0-54.0); Hemoglobin 7.9 g/dL (14.0-18.0); Mean Corpuscular HGB Conc 31.6 g/dL (29.9-35.2); Mean Corpuscular Hemoglobin 30.9 pg (25.9-34.0); Mean Corpuscular Volume 97.7 fL (80.0-94.0); Platelet Count 241 10^3/uL (150-450); Red Blood Count 2.56 10^6/uL (4.70-6.10); White Blood Count 10.4 10^3/uL (4.0-11.0)
[2025-06-26 06:10] LABS: Anion Gap 17.1; Blood Urea Nitrogen 27.0 mg/dL (7.0-18.0); Calcium 9.9 mg/dL (8.5-10.1); Carbon Dioxide 25.0 mmol/L (21.0-32.0); Chloride 110 mmol/L (98-107); Estimated GFR (African America >60 (>=60 mL/min/1.73m^2); Estimated GFR (Non-African Ame >60 (>=60 mL/min/1.73m^2); Glucose 85 mg/dL (74-106); Potassium 3.1 mmol/L (3.5-5.1); Sodium 149 mmol/L (136-145)
[2025-06-26 06:16] LABS: INR 2.68; Prothrombin Time 25.8 sec (9.0-11.6)
[2025-06-26 08:00] VITALS: BP 148/58; PULSE 63; TEMP 36.6; O2SAT 93
--- NOTE | 2025-06-26 08:50 | CM.NOTE ---
Rounds made with Dr. Jarvis, pt more verbal today. PT and OT will work with pt again today. SW or CM will speak with daughter regarding plan of care moving forward.
--- NOTE | 2025-06-26 09:30 | PC.NURSE ---
Dr. Jarvis aware, patient refusing anything oral
[2025-06-26 12:00] VITALS: BP 165/67; PULSE 60; TEMP 36.5; O2SAT 94
--- NOTE | 2025-06-26 14:10 | P.PN_ITS ---
Progress Note: Subjective Subjective Interval history: Patient is feeling better. He is up in a chair. No chest pain. Decreased shortness of breath. Exam Narrative Exam Narrative: Patient is lying in bed. Cachectic and frail in appearance. Bitemporal muscle wasting. Upper and lower extremities muscle wasting and atrophy which is significant enough. Osteoarthritis deformities. Chest is clear, heart is r egular. Abdomen is soft, nontender. Improvement of mental status since yesterday. Able to focus. Able to answer questions. Able to hold simple conversation. Constitutional Vital Signs, click to edit/add: Last Vital Signs Temp 97.7 F 06/26/25 12:00 Pulse 60 06/26/25 12:00 Resp 16 06/25/25 23:42 BP 165/67 H 06/26/25 12:00 Pulse Ox 94 L 06/26/25 12:00 O2 Del Method Room Air 06/26/25 12:00 O2 Flow Rate 2 06/24/25 15:32 Progress Note: Objective Labs Labs: Short CBC 06/25/25 06/26/25 Range/Units 21:49 05:17 WBC 10.4 (4.0-11.0) 10^3/uL Hgb 8.3 L 7.9 L (14.0-18.0) g/dL Hct 26.0 L 25.0 L (42.0-54.0) % Plt Count 241 (150-450) 10^3/uL BMP 06/26/25 05:17 Sodium 149 H Potassium 3.1 L Chloride 110 H Carbon Dioxide 25.0 BUN 27.0 H Creatinine 1.12 Glucose 85 Calcium 9.9 Progress Note: A&P Assessment and Plan (1) Congestive heart failure: (2) NSTEMI (non-ST elevated myocardial infarction): (3) Acute delirium: (4) Metastatic melanoma: (5) Anemia: (6) Hypomagnesemia: (7) Hypothyroidism: Plan NSTEMI Acute/subacute diastolic and probable systolic heart failure Hypertensive urgency Daughter requested the basic cardiac care. She does not want him to be transferred to [facility] or anywhere else for cardiac cath. I started patient on aspirin and beta-ekaterina. I also started him on nitrate. Patient not having any chest pain He is already on anticoagulation in the form of Coumadin. Patient is 2 L negative balance. Hypomagnesemia Magnesium supplementation Recheck magnesium level. Phosphorus level is normal Acute delirium, acute encephalopathy CAT scan of the brain is negative for acute intracranial process. Conceivably patient could have a brain mets despite negative CT. Started him on a combination of medication to control his agitation and restlessness. Mental status had improved since admission Continue to monitor. Severe cachexia, frailty, muscle wasting and failure to thrive Severe protein calorie mentation I would start patient on protein oral supplementation. Unfortunately patient has metastatic cancer and his nutritional status will continue to decline. Metastatic melanoma. Patient had received 1 dose of immunotherapy several weeks ago which had caused him to have significant side effect landing him in hospital acute care for several days. His daughter stated that oncologist stated that patient may not qualify for additional treatment. Folate deficiency Folate supplementation Hypothyroidism with suppressed TSH Patient was on levothyroxine 25 mcg Discontinue this at this time Repeat TSH in 2 months. Functional disability Patient is unable to take care of his basic needs. ECOG score is 4. PPS 30%. Fast score 7D. Goals of care discussion and advance care planning completed on 06/25. I spent about 25 minutes discussing this with his daughter who is the only child and power of commercial litigation attorney. We discussed his poor prognosis, condition, status and treatment plan. I explained in basic terms the difference between aggressive and comfort care approach. I explained in simple terms the difference between CCA and CC. I explained end-of-life care and criteria and qualification for hospice. His daughter is in agreement to focus on comfort care. She gave me permission to change his CODE STATUS to DNR CC. She is interested in hospice care. The plan is to see if patient with improved over the next few days then we will discharge him back to skilled care and enroll into the hospice program after he completes his skilled care. If patient does not show any meaningful improvement over the next day or 2 the p elaina is to seek hospice enrollment. Urinary Catheter Management Urinary Catheter Management Urethral: Cath placed during this visit: yes Urethral indwelling: No Insertion date: 06/24/25 Insertion time: 14:15
--- NOTE | 2025-06-26 16:06 | SWNOTE1 ---
MADISYN faxed updates to [facility]. Updates included PT/OT, physician note, vitals, nursing notes, and med list.
[2025-06-26] MEDS: TORSEMIDE 20 MG TABLET PO (16:15)
[2025-06-26] MEDS: HYDRALAZINE HCL 20 MG/ML VIAL 10 MG IVP (16:40)
[2025-06-26 16:43] VITALS: BP 178/65; PULSE 62; TEMP 36.6; O2SAT 93
[2025-06-26] MEDS: WARFARIN SODIUM 2.5 MG TABLET PO (17:50)
[2025-06-26] MEDS: NITROGLYCERIN 0.1 MG/HR PATCH.TD24 2 PATCH TD (17:51)
[2025-06-26 18:00] VITALS: BP 151/63
[2025-06-26 20:33] VITALS: BP 161/58; PULSE 61; TEMP 36.6; O2SAT 93
[2025-06-26] MEDS: ATORVASTATIN CALCIUM 40 MG TABLET PO (21:36)
[2025-06-26] MEDS: QUETIAPINE FUMARATE 25 MG TABLET 50 MG PO (21:36)
[2025-06-26] MEDS: LOSARTAN POTASSIUM 50 MG TABLET PO (21:36)
[2025-06-26] MEDS: SENNOSIDES 8.6 MG TABLET PO (21:36)
[2025-06-26 23:54] VITALS: BP 150/56; PULSE 63; O2SAT 93
[2025-06-27 03:38] VITALS: BP 162/66; PULSE 71; TEMP 37.2; O2SAT 93
[2025-06-27 05:38] LABS: Hematocrit 26.0 % (42.0-54.0); Hemoglobin 8.2 g/dL (14.0-18.0); Mean Corpuscular HGB Conc 31.5 g/dL (29.9-35.2); Mean Corpuscular Hemoglobin 30.5 pg (25.9-34.0); Mean Corpuscular Volume 96.7 fL (80.0-94.0); Platelet Count 255 10^3/uL (150-450); Red Blood Count 2.69 10^6/uL (4.70-6.10); White Blood Count 9.0 10^3/uL (4.0-11.0)
[2025-06-27 05:49] LABS: INR 2.86; Prothrombin Time 27.3 sec (9.0-11.6)
[2025-06-27 06:01] LABS: Anion Gap 11.6; Blood Urea Nitrogen 29.0 mg/dL (7.0-18.0); Calcium 9.4 mg/dL (8.5-10.1); Carbon Dioxide 28.5 mmol/L (21.0-32.0); Chloride 109 mmol/L (98-107); Estimated GFR (African America >60 (>=60 mL/min/1.73m^2); Estimated GFR (Non-African Ame 52 (>=60 mL/min/1.73m^2); Glucose 107 mg/dL (74-106); Magnesium 2.1 mg/dL (1.8-2.4); Potassium 3.1 mmol/L (3.5-5.1); Sodium 146 mmol/L (136-145)
[2025-06-27 06:20] LABS: NT Pro B Type Natriuretic Pept 27495.0 pg/mL (<=1800.0)
[2025-06-27] MEDS: REMOVE PATCH 1 PATCH TOPICAL (06:34)
[2025-06-27 08:00] VITALS: BP 170/50; PULSE 62; TEMP 36.4; O2SAT 92
[2025-06-27] MEDS: POTASSIUM CHLORIDE 10 MEQ ER TABLET 40 MEQ PO (08:08)
[2025-06-27] MEDS: ENSURE ORIGINAL 237 ML BOTTLE PO (08:08)
[2025-06-27] MEDS: LOSARTAN POTASSIUM 50 MG TABLET 100 MG PO (08:08)
[2025-06-27] MEDS: METOPROLOL SUCCINATE 50 MG TAB.ER.24H PO (08:09)
[2025-06-27] MEDS: AMLODIPINE BESYLATE 5 MG TABLET PO (08:09)
[2025-06-27] MEDS: SPIRONOLACTONE 25 MG TABLET PO (08:09)
[2025-06-27] MEDS: ASPIRIN 81 MG TAB.CHEW PO (08:09)
[2025-06-27] MEDS: TAMSULOSIN HCL 0.4 MG CAPSULE PO (08:09)
[2025-06-27] MEDS: FOLIC ACID 1 MG TABLET PO (08:09)
[2025-06-27] MEDS: FINASTERIDE 5 MG TABLET PO (08:09)
--- NOTE | 2025-06-27 09:17 | CM.NOTE ---
Rounded with . The plan is for discharge today to the [facility] after he has a swallow evaluation. Daughter voiced concerns that he would not drink thickened liquids if that was the recommendation.
--- NOTE | 2025-06-27 10:00 | PT.DAILY ---
Physical Therapy Daily Note PT Daily Note/Assess Start: 06/27/25 09:54 Freq: Status: Active Protocol: Document 06/27/25 09:54 STEVEN (Rec: 06/27/25 10:00 STEVEN [id number]) Physical Therapy Daily Note/Assessment Time In/Time Out Time In 09:18 Time Out 09:30 Pain In Pain Level 0 Pain Out Pain Level 0 Subjective Subjective Pt supine upon arrival. Agreeable to PT. Family present . Planned dc to [facility] today. Therapeutic Exercise Time Therapeutic Exercise 4 Minutes (minutes) Therapeutic Exercise 0 Units Therapeutic Exercise Treatment Therapeutic Exercise Bilat LE strengthening ex complete while sitting in bs Treatment chair 10x ea. Occ vc for proper form. Therapeutic Activity Time Therapeutic Activity 8 Minutes (minutes) Therapeutic Activity 1 Units Therapeutic Activity Treatment Bed Mobility Ability Moderate Assist Chair Transfer Moderate Assist Ability Therapeutic Activity Supine>sit ModA to advance upper body to sit at EOB. Comments Pt sits with bilat UE support at EOB to avoid LOB. Sit> stand ModA to reach standing. Pt amb 20' with RW Eder. Short step length noticed - shuffling gait with forward flexed posture. Remains in BS chair upon completion with call light in reach and chair alarm activated. Total Physical Therapy Time Total Therapy 12 Minutes Total Physical 1 Therapy Units Summary Daily Note Summary Improved gait ability and less assistance for transfers today.
--- NOTE | 2025-06-27 10:06 | P.DS_ITS ---
DS: Providers Provider Date of admission: 06/24/25 16:25 Primary care physician: Steve Vargas DO Consults: 06/24/25 Consult to Dietitian Routine Reason for consultation: low appetite Has provider been notified: Yes 06/24/25 17:14 Occupational Therapy Eval and Treat Routine Reason for consultation: weakness Physical Therapy Eval and Treat Routine Reason for consultation: Weakness 06/25/25 Consult to Hospice Routine Reason for consultation: metastatic melanoma 06/27/25 Clinical Bedside Swallow Eval and Treat Routine Reason for consultation: coughing with swallowing DS: Diagnosis Discharge Diagnosis (1) Congestive heart failure: (2) NSTEMI (non-ST elevated myocardial infarction): (3) Acute delirium: (4) Metastatic melanoma: (5) Anemia: (6) Hypomagnesemia: (7) Hypothyroidism: Plan As listed above, below and others that are med listed DS: Summary Hospital Course Hospital Course: Mr. Hannon is an 89-year-old gentleman who was sent from the [place] [facility] to the emergency room with a complaint of shortness of breath. NSTEMI Acute/subacute diastolic and probable systolic heart failure Hypertensive urgency Daughter requested the basic cardiac care. She does not want him to be transferred to [facility] or anywhere else for cardiac cath. I started patient on aspirin and beta-ekaterina. I also started him on nitrate. Patient not having any chest pain He is already on anticoagulation in the form of Coumadin. Patient is 2 L negative balance. Continue diuretics at home. I started him on amlodipine for better blood pressure control and I increased the dose today up to 10 mg daily Recent echocardiogram showed normal EF. 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 INR is therapeutic. Continue PT/INR checks at the nursing facility twice a week and titrate Coumadin to keep INR between 2 and 3 Hypomagnesemia and Magnesium and potassium supplementation Recheck magnesium level is normal. Phosphorus level is normal Dysphagia Daughter stated that the patient has had dysphagia before in [place] and at the [place] [facility] He was started on a modified diet including thickened liquid but he did not like it and stopped eating. I informed daughter that the patient could potentially eat and drink regular sujatha d however he is at risk of having aspiration. She is aware of that risk and she is fairly comfortable taking that risk for the sake providing him with pressure food. Will start patient on oral antibiotic for the next several days due to possible microaspiration. Acute delirium, acute encephalopathy CAT scan of the brain is negative for acute intracranial process. Conceivably patient could have a brain mets despite negative CT. Started him on a combination of medication to control his agitation and restlessness. Mental status had improved since admission back to baseline. Continue to monitor. Severe cachexia, frailty, muscle wasting and failure to thrive Severe protein calorie mentation I would start patient on protein oral supplementation. Unfortunately patient has metastatic cancer and his nutritional status will continue to decline. Metastatic melanoma. Patient had received 1 dose of immunotherapy several weeks ago which had caused him to have significant side effect landing him in hospital acute care for several days. His daughter stated that oncologist stated that patient may not qualify for additional treatment. Folate deficiency Folate supplementation Hypothyroidism with suppressed TSH Patient was on levothyroxine 25 mcg Discontinue this at this time Repeat TSH in 2 months. Functional disability Patient is unable to take care of his basic needs. ECOG score is 4. PPS 30%. Fast score 7D. Goals of care discussion and advance care planning completed on 06/25 and on 06/27 . I spent about 25 minutes discussing this with his daughter who is the only child and power of estate attorney. We discussed his poor prognosis, condition, status and treatment plan. I explained in basic terms the difference between aggressive and comfort care approach. I explained in simple terms the difference between CCA and CC. I explained end-of-life care and criteria and qualification for hospice. His daughter is in agreement to focus on comfort care. She gave me permission to change his CODE STATUS to DNR CC. She is interested in hospice care. The plan is [facility]. If the patient fails to improve we will proceed with enrollment in the hospice program. Daughter is in agreement. Patient is medically stable however his prognosis is poor Time Spent with Patient Time attestation: Total time spent providing and/or coordinating discharge services: Exam Constitutional Vital Signs, click to edit/add: Last Vital Signs Temp 97.6 F 06/27/25 08:00 Pulse 62 06/27/25 08:00 Resp 18 06/27/25 08:00 BP 170/50 H 06/27/25 08:00 Pulse Ox 92 L 06/27/25 08:00 O2 Del Method Room Air 06/27/25 08:00 O2 Flow Rate 2 09/21/25 15:32 DS: Data Data Completed and Pending Labs on day of discharge: Labs from last 24 hours 06/27/25 05:27 WBC 9.0 RBC 2.69 L Hgb 8.2 L Hct 26.0 L MCV 96.7 H MCH 30.5 MCHC 31.5 RDW 15.0 Plt Count 255 MPV 10.4 PT 27.3 H INR 2.86 Sodium 146 H Potassium 3.1 L Chloride 109 H Carbon Dioxide 28.5 Anion Gap 11.6 BUN 29.0 H Creatinine 1.30 Est GFR ( Amer) >60 Est GFR (Non-Af Amer) 52 L BUN/Creatinine Ratio 22.3 Glucose 107 H Calcium 9.4 Magnesium 2.1 Troponin I High Sens 541.0 H* NT-Pro-B Natriuret Pep 62671.0 H* Discharge Plan Discharge Disposition: Xfer SNF Condition: Good Discharge Medications: New losartan 100 mg tablet 100 mg PO DAILY Qty: 30 0RF amlodipine 10 mg tablet 10 mg PO DAILY Qty: 30 0RF dextromethorphan-guaifenesin 10-100 mg/5 mL Syrup 10 ml PO Q6H PRN (Reason: Cough) Qty: 0 0RF atorvastatin 40 mg Tablet 40 mg PO QPM Qty: 0 0RF metoprolol succinate 50 mg Tablet Extended Release 24 Hr 50 mg PO DAILY Qty: 0 0RF nitroglycerin 0.1 mg/hr Patch 24 Hour 1 patch transdermal Q24H Qty: 0 0RF aspirin 81 mg Tablet,Chewable 81 mg PO QD Qty: 0 0RF quetiapine 25 mg Tablet 50 mg PO HS Qty: 0 0RF Ensure Original 0.04-1.05 gram-kcal/mL Liquid 1 ea PO TIDWM Qty: 0 0RF folic acid 1 mg Tablet 1 mg PO QD Qty: 0 0RF Continued acetaminophen [8 Hour Pain Reliever] 650 mg tablet extended release 650 mg PO Q6H PRN (Reason: fever or pain) calcium 500 mg tablet 500 mg PO DAILY ferrous sulfate [FeroSul] 325 mg (65 mg iron) tablet 325 mg PO DAILY finasteride 5 mg tablet 5 mg PO DAILY mirtazapine 15 mg tablet 7.5 mg PO QPM sennosides [Laxative (sennosides)] 8.6 mg tablet 8.6 mg PO .QHS spironolactone 25 mg tablet 25 mg PO DAILY tamsulosin [Flomax] 0.4 mg capsule 0.4 mg PO DAILY cholecalciferol (vitamin D3) [D3 DOTS] 50 mcg (2,000 unit) tablet 4,000 unit PO DAILY hydroxychloroquine 200 mg tablet 200 mg PO MOWEFR@0900,2100 Rx Instructions: twice a day on wednesday, and wednesday nitroglycerin 0.4 mg tablet, sublingual 0.4 mg sublingual Q5M PRN (Reason: chest pain) Rx Instructions: do not exceed 3 doses per episode warfarin 5 mg tablet 5 mg PO DAILY Qty: 0 0RF Rx Instructions: assisted provider, pharmacy is to adjust Coumadin dose to keep INR between 2 and 3. Changed polyethylene glycol 3350 [ClearLax] 17 gram powder in packet 17 g PO DAILY PRN (Reason: constipation) Qty: 0 0RF cyanocobalamin (vitamin B-12) [Vitamin B-12] 1,000 mcg tablet 500 mcg PO DAILY Qty: 0 0RF Discontinued fexofenadine [Ramona Allergy] 180 mg tablet 180 mg PO DAILY amlodipine 2.5 mg tablet 2.5 mg PO DAILY losartan 50 mg tablet 50 mg PO DAILY metoprolol succinate 50 mg tablet extended release 24 hr 75 mg PO DAILY hydroxychloroquine 200 mg tablet 200 mg PO SUTUTHSA@0900 Rx Instructions: TAKE 1 TABLET BY MOUTH ONCE A DAY on wednesday, , AND SATS ALTERNATE WITH 1 TABLET TWICE A DAY WITH FOOD ondansetron HCl 4 mg tablet 4 mg PO Q8H PRN (Reason: nausea and vomiting) levothyroxine 25 mcg tablet 25 mcg PO .acb furosemide [Lasix] 40 mg tablet 40 mg PO .QOD Opdualag 240-80 mg/20 mL solution 40 ml IV Q28D Print Language: [place] Activity Restrictions/Additional Instructions: For [place] [facility] providers Patient is DNR CC. No aggressive care is desired. If patient does not progress as expected under skilled care, daughter is ready to enroll him into the hospice program Please ask speech therapist at the [place] [facility] to work with him to improve his swallowing Please draw PT/INR every Wednesday and and adjust Coumadin dose to keep INR between 2 and 3. Repeat TSH in 2 months Forms: Portal Instructions
--- NOTE | 2025-06-27 10:38 | P.DS_ITS ---
DS: Providers Provider Date of admission: 06/24/25 16:25 Primary care physician: Steve Vargas DO Consults: 06/24/25 Consult to Dietitian Routine Reason for consultation: low appetite Has provider been notified: Yes 06/24/25 17:14 Occupational Therapy Eval and Treat Routine Reason for consultation: weakness Physical Therapy Eval and Treat Routine Reason for consultation: Weakness 06/25/25 Consult to Hospice Routine Reason for consultation: metastatic melanoma 06/27/25 Clinical Bedside Swallow Eval and Treat Routine Reason for consultation: coughing with swallowing Speech Therapy Eval and Treat Routine Reason for consultation: swallow difficulty DS: Diagnosis Discharge Diagnosis (1) Congestive heart failure: (2) NSTEMI (non-ST elevated myocardial infarction): (3) Acute delirium: (4) Metastatic melanoma: (5) Anemia: (6) Hypomagnesemia: (7) Hypothyroidism: DS: Summary Hospital Course Hospital Course: Mr. Hannon is an 89-year-old gentleman who [facility] with a complaint of shortness of breath. NSTEMI Acute/subacute diastolic and probable systolic heart failure Hypertensive urgency Daughter requested the basic cardiac care. She does not want him to be transferred to [facility] or anywhere else for cardiac cath. I started patient on aspirin and beta-ekaterina. I also started him on nitrate. Patient not having any chest pain He is already on anticoagulation in the form of Coumadin. Patient is 2 L negative balance. Continue diuretics at home. I started him on amlodipine for better blood pressure control and I increased the dose today up to 10 mg daily Recent echocardiogram showed normal EF. 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 INR is therapeutic. Continue PT/INR checks at the nursing facility twice a week and titrate Coumadin to keep INR between 2 and 3 Hypomagnesemia and Magnesium and potassium supplementation Recheck magnesium level is normal. Phosphorus level is normal Dysphagia Daughter stated that the patient has had dysphagia before in [place] and [facility] the [facility]. He was started on a modified diet including thickened liquid but he did not like it and stopped eating. I informed daughter that the patient could potentially eat and drink regular food however he is at risk of having aspiration. She is aware of that risk and she is fairly comfortable taking that risk for the sake providing him with pressure food. Will start patient on oral antibiotic for the next several days due to possible microaspiration. Acute delirium, acute encephalopathy CAT scan of the brain is negative for acute intracranial process. Conceivably patient could have a brain mets despite negative CT. Started him on a combination of medication to control his agitation and restlessness. Mental status had improved since admission back to baseline. Continue to monitor. Severe cachexia, frailty, muscle wasting and failure to thrive Severe protein calorie mentation I would start patient on protein oral supplementation. Unfortunately patient has metastatic cancer and his nutritional status will continue to decline. Metastatic melanoma. Patient had received 1 dose of immunotherapy several weeks ago which had caused him to have significant side effect landing him in hospital acute care for several days. His daughter stated that oncologist stated that patient may not qualify for additional treatment. Folate deficiency Folate supplementation Hypothyroidism with suppressed TSH Patient was on levothyroxine 25 mcg Discontinue this at this time Repeat TSH in 2 months. Functional disability Patient is unable to take care of his basic needs. ECOG score is 4. PPS 30%. Fast score 7D. Goals of care discussion and advance care planning completed on 06/25 and on 06/27 . I spent about 25 minutes discussing this with his daughter who is the only child and power of environmental attorney. We discussed his poor prognosis, condition, status and treatment plan. I explained in basic terms the difference between aggressive and comfort care approach. I explained in simple terms the difference between CCA and CC. I explained end-of-life care and criteria and qualification for hospice. His daughter is in agreement to focus on comfort care. She gave me permission to change his CODE STATUS to DNR CC. She is interested in hospice care. The plan is to give the patient another chance at the nursing home facility receiving skilled care. If the patient fails to improve we will proceed with enrollment in the hospice program. Daughter is in agreement. Patient is medically stable however his prognosis is poor Time Spent with Patient Time attestation: Total time spent providing and/or coordinating discharge services: Exam Constitutional Vital Signs, click to edit/add: Last Vital Signs Temp 97.6 F 06/27/25 08:00 Pulse 62 06/27/25 08:00 Resp 18 06/27/25 08:00 BP 170/50 H 06/27/25 08:00 Pulse Ox 92 L 06/27/25 08:00 O2 Del Method Room Air 06/27/25 08:00 O2 Flow Rate 2 06/24/25 15:32 DS: Data Data Completed and Pending Labs on day of discharge: Labs from last 24 hours 06/27/25 05:27 WBC 9.0 RBC 2.69 L Hgb 8.2 L Hct 26.0 L MCV 96.7 H MCH 30.5 MCHC 31.5 RDW 15.0 Plt Count 255 MPV 10.4 PT 27.3 H INR 2.86 Sodium 146 H Potassium 3.1 L Chloride 109 H Carbon Dioxide 28.5 Anion Gap 11.6 BUN 29.0 H Creatinine 1.30 Est GFR ( Amer) >60 Est GFR (Non-Af Amer) 52 L BUN/Creatinine Ratio 22.3 Glucose 107 H Calcium 9.4 Magnesium 2.1 Troponin I High Sens 541.0 H* NT-Pro-B Natriuret Pep 52551.0 H* Discharge Plan Discharge Disposition: Xfer SNF Condition: Good Discharge Medications: New atorvastatin 40 mg Tablet 40 mg PO QPM Qty: 0 0RF nitroglycerin 0.1 mg/hr Patch 24 Hour 1 patch transdermal Q24H Qty: 0 0RF metoprolol succinate 50 mg Tablet Extended Release 24 Hr 50 mg PO DAILY Qty: 0 0RF dextromethorphan-guaifenesin 10-100 mg/5 mL Syrup 10 ml PO Q6H PRN (Reason: Cough) Qty: 0 0RF aspirin 81 mg Tablet,Chewable 81 mg PO QD Qty: 0 0RF folic acid 1 mg Tablet 1 mg PO QD Qty: 0 0RF Ensure Original 0.04-1.05 gram-kcal/mL Liquid 1 ea PO TIDWM Qty: 0 0RF quetiapine 25 mg Tablet 50 mg PO HS Qty: 0 0RF losartan 100 mg tablet 100 mg PO DAILY Qty: 30 0RF amlodipine 10 mg tablet 10 mg PO DAILY Qty: 30 0RF torsemide 10 mg tablet 10 mg PO DAILY Qty: 30 0RF doxycycline monohydrate 100 mg tablet 100 mg PO BID 5 Days Qty: 10 0RF magnesium oxide 420 mg tablet 420 mg PO DAILY Qty: 30 0RF Continued acetaminophen [8 Hour Pain Reliever] 650 mg tablet extended release 650 mg PO Q6H PRN (Reason: fever or pain) calcium 500 mg tablet 500 mg PO DAILY ferrous sulfate [FeroSul] 325 mg (65 mg iron) tablet 325 mg PO DAILY finasteride 5 mg tablet 5 mg PO DAILY mirtazapine 15 mg tablet 7.5 mg PO QPM sennosides [Laxative (sennosides)] 8.6 mg tablet 8.6 mg PO .QHS spironolactone 25 mg tablet 25 mg PO DAILY tamsulosin [Flomax] 0.4 mg capsule 0.4 mg PO DAILY cholecalciferol (vitamin D3) [D3 DOTS] 50 mcg (2,000 unit) tablet 4,000 unit PO DAILY nitroglycerin 0.4 mg tablet, sublingual 0.4 mg sublingual Q5M PRN (Reason: chest pain) Rx Instructions: do not exceed 3 doses per episode warfarin 5 mg tablet 5 mg PO DAILY Qty: 0 0RF Rx Instructions: detention provider, pharmacy is to adjust Coumadin dose to keep INR between 2 and 3. Changed polyethylene glycol 3350 [ClearLax] 17 gram powder in packet 17 g PO DAILY PRN (Reason: constipation) Qty: 0 0RF cyanocobalamin (vitamin B-12) [Vitamin B-12] 1,000 mcg tablet 500 mcg PO DAILY Qty: 0 0RF Held hydroxychloroquine 200 mg tablet 200 mg PO MOWEFR@0900,2100 Hold Instructions: Resume on 07/04/25. Rx Instructions: twice a day on wednesday, and wednesday Discontinued fexofenadine [Ramona Allergy] 180 mg tablet 180 mg PO DAILY amlodipine 2.5 mg tablet 2.5 mg PO DAILY losartan 50 mg tablet 50 mg PO DAILY metoprolol succinate 50 mg tablet extended release 24 hr 75 mg PO DAILY hydroxychloroquine 200 mg tablet 200 mg PO SUTUTHSA@0900 Rx Instructions: TAKE 1 TABLET BY MOUTH ONCE A DAY on wednesday, , AND WEDS ALTERNATE WITH 1 TABLET TWICE A DAY WITH FOOD ondansetron HCl 4 mg tablet 4 mg PO Q8H PRN (Reason: nausea and vomiting) levothyroxine 25 mcg tablet 25 mcg PO .acb furosemide [Lasix] 40 mg tablet 40 mg PO .QOD Opdualag 240-80 mg/20 mL solution 40 ml IV Q28D Print Language: Upper Sorbian Activity Restrictions/Additional Instructions: For [facility] providers Patient is DNR CC. No aggressive care is desired. If patient does not progress as expected under skilled care, daughter is ready to enroll him into the hospice program Please ask speech therapist at the [facility] to work with him to improve his swallowing Please draw PT/INR every Wednesday and and adjust Coumadin dose to keep INR between 2 and 3. BMP weekly for 2 weeks to monitor his electrolytes and kidney function Repeat TSH in 2 months Forms: Portal Instructions
--- NOTE | 2025-06-27 10:50 | CM.NOTE ---
CRF completed for long term facility and given to SW. SW will set up transport for pt.
--- NOTE | 2025-06-27 10:51 | SWNOTE1 ---
Pt is stable for discharge today and he will be returning to [facility] skilled. MADISYN spoke with daughter, Tricia and she is in agreement with pt going skilled at this time. MADISYN let her know that SW will notify [facility]. Tricia and her will transport him to [facility]. MADISYN recommended possibly around 12:00. SW notified nurse and [facility] of time. Daughter did ask SW about [facility] and if he would be going with [facility]? SW to ask physician. MADISYN reached out to Dr. Jarvis and he would like case management to look in to [facility] placement. MADISYN advised Funmi in case management and called nurse as well. MADISYN faxed dc med rec, dc summary, and labs/vitals to Yves and Marie at [facility]. Pt does need to have swallow eval prior to discharge. SW to see if this has been completed.
--- NOTE | 2025-06-27 11:00 | CM.NOTE ---
Spoke with pt's daughter regarding 2nd Notice of Imprtant Message From Medicare, denies questions or concerns.
--- NOTE | 2025-06-27 11:10 | CM.NOTE ---
Discussed with Dr. Jarvis regarding [facility] at discharge, ok to D/C [facility] prior to discharge.
--- NOTE | 2025-06-27 11:39 | SWNOTE1 ---
[facility] will be removed per case management. MADISYN notified pt's Tricia ogden. Tricia also asked about pt being discharged on antibiotic. MADISYN took dc med list to nurse and she confirmed pt will be discharged on antibiotic and he will get it at [facility]. MADISYN took packet to the floor and CRF was given to nurse.
[2025-06-27 11:50] VITALS: BP 77/30; PULSE 61
--- NOTE | 2025-06-27 11:56 | PC.NURSE ---
patient was sitting in chair with his eyes closed. RN attempted to wake him but was unable to. RN was rechecking BP since his BP was high this am. BP reading in the 70's. Patient not respondiing. correctional case manager Funmi at the bedside and she helped get patient back into bed. Dr. Jarvis paged to the room. Started rechecking bp with patient in bed and bp was slowly trending up. currently 153/62. Patient awake and alert now. Dr. Jarvis at bedside and had a discussion with family and decided to proceed with discharge to the [facility] today.
[2025-06-27 12:00] VITALS: BP 153/62; PULSE 71; O2SAT 94
--- NOTE | 2025-06-27 12:33 | PC.NURSE ---
report given to mary at the [facility]. All questions answered
--- NOTE | 2025-06-28 07:03 | CM.NOTE ---
Spoke with pt's daughter regarding 2nd Notice of Important Message From Medicare, denies questions or concerns.
== END 2025-06-27 12:45 | DRG 280 ==
LOC: ER 15:30 → MS 16:47
PROVIDERS: Admitting Provider Internal Medicine; Emergency Provider Emergency Medicine; PCP Internal Medicine; Visit Provider Internal Medicine
DX: I11.0 Hypertensive heart disease with heart failure (principal); E43 Unspecified severe protein-calorie malnutrition; I21.4 Non-ST elevation (NSTEMI) myocardial infarction; I50.41 Acute combined systolic (congestive) and diastolic (congestive) heart failure; C79.9 Secondary malignant neoplasm of unspecified site; R64 Cachexia; G93.40 Encephalopathy, unspecified; I16.0 Hypertensive urgency; D64.9 Anemia, unspecified; E03.9 Hypothyroidism, unspecified; C43.9 Malignant melanoma of skin, unspecified; R41.0 Disorientation, unspecified; E83.42 Hypomagnesemia; R62.7 Adult failure to thrive; Z79.899 Other long term (current) drug therapy; Z79.01 Long term (current) use of anticoagulants; Z66 Do not resuscitate; R54 Age-related physical debility; E53.8 Deficiency of other specified B group vitamins; Z95.0 Presence of cardiac pacemaker; Z91.81 History of falling; R13.10 Dysphagia, unspecified; Z68.20 Body mass index [BMI] 20.0-20.9, adult
CPT/HCPCS: 36415; 51702; 70450; 71045; 80048; 80053; 80061; 81001; 82607; 82728; 82746; 83540; 83550; 83735; 83880; 84100; 84443; 84484; 85007; 85014; 85018; 85025; 85027; 85610; 86850; 86900; 86901; 87086; 87804; 87811; 92610; 93005; 94640; 96374; 96375; 97161; 97165; 97530; 97535; 99285; G0328; J0360; J1938; J2405; J3360; J3475; J3486

== ENCOUNTER 2025-07-04 04:22 | Outpatient (RCR) | payer MEDICARE, BC, SELFPAY | END 2025-08-03 23:59 | disposition home or self-care (01) | LOC: MM 04:22 | PROVIDERS: PCP Internal Medicine; Visit Provider Internal Medicine | DX: Z51.81 Encounter for therapeutic drug level monitoring (principal); Z79.01 Long term (current) use of anticoagulants; I48.91 Unspecified atrial fibrillation ==

== ENCOUNTER 2025-08-04 | Outpatient (RCR) | payer MEDICARE, BC, SELFPAY | END 2025-09-02 23:59 | disposition home or self-care (01) | LOC: MM | PROVIDERS: PCP Internal Medicine; Visit Provider Internal Medicine | DX: Z51.81 Encounter for therapeutic drug level monitoring (principal); Z79.01 Long term (current) use of anticoagulants ==